=== PATIENT | male | born 1945 | race Caucasian/White ===

== ENCOUNTER 2020-07-24 10:50 | Inpatient (IN) | payer MEDICARE, SELFPAY ==
--- NOTE | ~2020-07-24 | US_ITS ---
EXAMINATION: US DOPPLER LOWER EXTREMITY ARTERIAL, RIGHT CLINICAL INFORMATION: Diabetic ulcer COMPARISON: None TECHNIQUE: Grayscale, color Doppler, spectral Doppler, duplex Doppler of the right lower extremity arterial system was performed. FINDINGS: RIGHT: There is plaque throughout the visible lower extremity arterial system with more substantial moderate plaque at the femoral bifurcation and in the mid and distal superficial femoral artery. The posterior tibial artery appears occluded in the mid and distal segments. Common femoral: PSV 255 centimeters per second. Triphasic waveform. Deep femoral: PSV 101 centimeters per second. Biphasic waveform. Proximal superficial femoral: PSV 133 centimeters per second. Monophasic waveform. Mid superficial femoral: PSV 133 centimeters per second. Monophasic waveform. Distal superficial femoral: PSV 161 centimeters per second. Monophasic waveform. Proximal popliteal: PSV 118 centimeters per second. Monophasic waveform. Distal popliteal: PSV 42 centimeters per second. Monophasic waveform. US/US arterial duplex LE RT IMPRESSION: Diffuse atherosclerotic disease with more focal moderate plaque at the common femoral bifurcation, mid SFA, and distal SFA. The posterior tibial artery occludes in the mid segment. Monophasic waveforms in the SFA and popliteal artery consistent with hemodynamically significant peripheral arterial disease.
--- NOTE | ~2020-07-24 | CT_ITS ---
EXAMINATION: CT ANGIOGRAM OF THE CHEST WITH AND WITHOUT CONTRAST (CT PULMONARY ANGIOGRAM FOR PE) CLINICAL INFORMATION: Shortness of breath. COMPARISON: Chest X-ray 07/24/2020. Correlation MRI lumbar spine 08/03/2011. TECHNIQUE: Prior to contrast administration, noncontrast localization images were obtained. Subsequently, multidetector volumetric imaging was performed from the thoracic inlet to below the diaphragms following the administration of 65 mL Omnipaque 350 intravenous contrast. No contrast reaction reported. Sagittal, coronal, and MIP oblique sagittal reformatted images were obtained on the CT workstation, uploaded to PACS, and reviewed. This CT examination was performed using dose optimization techniques as appropriate, variously including the following: *Automated exposure control *Adjustment of mA and/or kV according to patient size (this includes techniques or standardized protocols for targeted exams where dose is matched to indication/reason for exam; i.e. extremities or head) *Use of iterative reconstruction technique Total exam dose-length product 286 mGy-cm FINDINGS: QUALITY OF STUDY/CONTRAST BOLUS: Satisfactory. PULMONARY ARTERIES: No evidence of filling defects to suggest central or segmental pulmonary emboli. THORACIC AORTA: Normal caliber aorta. LUNG: [id number] centrilobular and paraseptal emphysema. Mild dependent changes in the posterior bilateral lungs. No focal consolidation. No suspicious nodules or masses seen. PLEURA: No pleural effusion or pneumothorax. MEDIASTINUM: Normal heart size. No pericardial effusion. No hilar or mediastinal lymphadenopathy. No evidence of septal bowing or right heart strain. CHEST WALL/AXILLA: No axillary or internal mammary lymphadenopathy. OSSEOUS STRUCTURES: No acute or suspicious osseous abnormality. Multilevel thoracic spine degeneration. UPPER ABDOMEN: There is an incompletely imaged large fluid attenuation focus in the expected region of the right kidney, with lobulated margins. The visualized portion measures 10.7 x 9 cm. There appear to be some thin septations within this, with areas of increased density which may reflect enhancement or calcification. On the prior lumbar MRI 08/03/2011, a septated cystic focus is partially imaged in this region, as well. Mild bulky appearance of the left adrenal gland. No reflux of contrast into the hepatic veins to suggest elevated right heart pressures. CT/CT angio chest PE protocol IMPRESSION: 1. No evidence of filling defects to suggest central or segmental pulmonary emboli. 2. [id number] emphysema. No focal consolidation. 3. There is an indeterminate large fluid attenuation focus in the right upper abdomen in the expected region of the kidney. This is of indeterminate etiology. This is incompletely imaged and evaluated. The imaged portion measures 10.7 x 9 cm in short axis, and has thin septations within it, which may be enhancing or have calcification within them. This focus is indeterminate. The partially imaged septated cystic focus was seen in the MRI lumbar spine 08/03/2011. Please correlate with clinical history, previous imaging, clinical correlation. Further workup with CT or ultrasound as clinically warranted. VTE: negative
--- NOTE | ~2020-07-24 | US_ITS ---
EXAMINATION: US RETROPERITONEAL LIMITED (RENAL ONLY) CLINICAL INFORMATION: Fluid attenuation in area of right kidney on CT. COMPARISON: Selected portions from the upper abdomen on CT 07/24/20 Selected portions of ultrasound 08/23/11 TECHNIQUE: Bilateral renal ultrasound. FINDINGS: RIGHT KIDNEY: 14.9 x 7.1 x 8.0 cm (SAG x AP x TRV). The renal contour is abnormal. The upper pole is replaced by multiple varying sized thin-walled cysts. Some are exophytic. Some replace the expected region of cortex and central sinus fat. Individual cystic lesions are difficult to quantify. Some cystic components measure greater than 5 cm. There is no dilation of the intrarenal collecting system suggested. No suspicious mass involving the lower pole. There is no shadowing calculus. The finding on the CT corresponds to on CT there are linear internal calcifications. There were multi cystic abnormalities deforming the upper pole of the right kidney on ultrasound 08/23/11. These may have slightly increased. LEFT KIDNEY: 12.4 x 5.6 x 5.6 cm (SAG x AP x TRV). The left renal contour is relatively smooth. Renal cortical thickness is normal. No shadowing calculi. There are small round cysts. The largest in the mid left kidney measures 1.1 cm in diameter. There is no dilation of the intrarenal collecting system US/US renal BI IMPRESSION: The complex cystic abnormality in the right upper quadrant on recent CT corresponds to a multi cystic abnormality in the right kidney. There are linear calcifications on CT. There was a complex cystic abnormality on ultrasound in 2012. Overall I suspect there has been some interval increase in size. The lack of large solid component developing since 2012 is reassuring. Consider urologic consultation for surveillance of complex cystic mass with slow enlargement. No measurable solid lesion.
--- NOTE | ~2020-07-24 | US_ITS ---
EXAMINATION: US VENOUS ULTRASOUND WITH DOPPLER LOWER EXTREMITY, RIGHT CLINICAL INFORMATION: Diabetic foot ulcer. Shortness of breath. Assess for occult DVT. COMPARISON: Arterial duplex ultrasound right lower extremity 07/24/2020. TECHNIQUE: Ultrasound of the deep veins is performed from the hip to the calf with compression sonography and color and pulse Doppler assessment. Spectral analysis with color-flow imaging is performed. FINDINGS: There is normal venous compression and respiratory variation and augmented flow. The visualized common femoral vein, superficial femoral vein, profunda femoral vein, popliteal vein, and the trifurcation region shows no evidence of deep venous thrombosis. There is no popliteal fossa cyst. There are some expected reactive nodes right inguinal region, largest 1.1 cm short axis by 2.8 cm long axis. There is mild cortical thickening with abundant fatty hilus and normal color flow pattern. US/US venous duplex LE RT IMPRESSION: No DVT demonstrated in the right lower extremity.
--- NOTE | ~2020-07-24 | XR_ITS ---
EXAMINATION: XR CHEST CLINICAL INFORMATION: Cough, shortness of breath COMPARISON: Chest radiographs 04/23/2013 TECHNIQUE: The chest is imaged in 2 upright AP views and a lateral projection for a total of 3 views. FINDINGS: There is no airspace consolidation or definite groundglass opacity. No pleural reaction or effusion. The costophrenic sulci are clear. The heart is normal in size. The vascularity is normal. The hilar and mediastinal contours are unremarkable. There are multilevel level degenerative changes thoracic spine. XR/XR chest 2V IMPRESSION: Unremarkable examination.
--- NOTE | ~2020-07-24 | XR_ITS ---
EXAMINATION: XR FOOT, RIGHT CLINICAL INFORMATION: Diabetic wound COMPARISON: None TECHNIQUE: Right foot is imaged in 3 views. FINDINGS: There is scattered gas in the soft tissues involving the base and mid great toe and between the great and second toe. Gas seen on both plantar and dorsal sides on the lateral view. There is decreased mineralization in the first proximal phalanx. There is no obvious periostitis. Some mottled attenuation is suggested in the sesamoids. The remainder of the bony structures are unremarkable. XR/XR foot RT 2V IMPRESSION: Moderate gas in the soft tissues and forefoot dorsal and plantar side first and second toe. Variable mineralization first proximal phalanx and sesamoids. Possibility of early osteomyelitis cannot be excluded.
--- NOTE | ~2020-07-24 | MR_ITS ---
EXAMINATION: MR FOOT WITH AND WITHOUT CONTRAST, RIGHT CLINICAL INFORMATION: Evaluate for osteomyelitis. COMPARISON: Radiographs dated 07/24/2020 TECHNIQUE: Multiplanar MR imaging was obtained through the right foot on a 1.5 Reyna magnet before and after intravenous administration of 8 mL Gadavist. FINDINGS: There is a large soft tissue ulceration at the medial/plantar aspect of the 1st MTP joint measuring 3.6 x 3.2 cm with a depth of at least 6 mm. The surrounding soft tissues are edematous and swollen. Enhancement in this region is diminished in the plantar soft tissues distal to the lesion, likely due to compromised peripheral perfusion. The defect extends to the depth of the underlying hallux sesamoids and flexor digitorum longus tendon. The flexor digitorum longus tendon is likely exposed at the level of the sesamoids and its integrity in this region is not well assessed. There is edema signal within the medial hallux sesamoid with loss of signal intensity on T1-weighted images and diffuse enhancement, consistent with osteomyelitis. There is more mild edema signal and enhancement within the lateral hallux sesamoid without complete replacement of the normal T1 signal. There is a peripherally enhancing fluid collection arising at the interspace between the 1st and 2nd digits and extending dorsally into the dorsal soft tissues, propagating laterally over the head of the 2nd metatarsal. This collection measures 4.6 cm longitudinally with a cross-sectional diameter of approximately 2 x 1.5 cm. Numerous foci of low signal intensity with susceptibility artifact are noted within this collection, most consistent with gas. This may be contiguous with the ulceration at the plantar aspect of the foot and is consistent with an abscess. Susceptibility artifact is also noted within the great toe proximal phalanx, indicative of gas. This is suggestive of infection and osteonecrosis. Of note, the T1 signal is relatively well-preserved at the 1st toe proximal phalanx with the exception of the base, potentially due to necrosis. There is mild osteoarthritis at the 1st MTP joint with marginal osteophytes, articular cartilage loss, and articular surface remodeling. There is synovial enhancement at the 1st MTP joint without appreciable effusion. No effusions are present at the other joints, though the aforementioned abscess does extend over the dorsal aspect of the 2nd MTP joint. Reactive edema signal is present in the 2nd toe proximal phalangeal base. There is diffuse soft tissue swelling with skin thickening, soft tissue edema, and soft tissue enhancement. There is diffuse atrophy and fatty replacement of the intrinsic foot musculature with intramuscular edema signal and enhancement, likely due, in large part, to denervation atrophy. No appreciable tendon tears. MR/MR foot RT wo/w con IMPRESSION: Large ulceration at the plantar aspect of the 1st MTP joint with underlying osteomyelitis of the lateral hallux sesamoid, osteomyelitis and probable osteonecrosis at the great toe proximal phalanx, and a 4.6 cm gas-containing abscess at the 1st interspace extending into the dorsal soft tissues. Septic arthritis at the 1st MTP joint is possible, though not definitively present based on these images.
[2020-07-24 11:01] VITALS: BP 139/60; BP 141/88; PULSE 104; PULSE 105; RESP 16; TEMP 37.2; O2SAT 100; O2SAT 96; BMI 27.3
--- NOTE | 2020-07-24 11:05 | ECG_ITS ---
Test Reason : SOB, COUGH Blood Pressure : / mmHG Vent. Rate : 088 BPM Atrial Rate : 088 BPM P-R Int : 136 ms QRS Dur : 084 ms QT Int : 382 ms P-R-T Axes : 050 045 048 degrees QTc Int : 462 ms Normal sinus rhythm Normal ECG When compared with ECG of 29-SEP-2011 15:26, No significant change was found Referred By: Chelsea Meza Electronically Signed By:ASA BATEMAN
--- NOTE | 2020-07-24 11:13 | ED.GENADULT ---
HPI - General Adult General Chief complaint: Altered Mental Status Stated complaint: AMS,FEVER (100.2),HX FOOT INFECTION PER Time Seen by Provider: 07/24/20 10:55 Source: patient, EMS, RN notes reviewed and old records reviewed Mode of arrival: EMS Limitations: altered mental status (Early-onset dementia per EMS) History of Present Illness HPI narrative: 75-year-old male here today via EMS services. Patient has a history of diabetes, diabetic foot ulcers. 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 Patient is a very poor historian. Per EMS services patient was found by slumped over when he came up from basement. He was alert, however he presented very weak. Patient has a poor healing diabetic ulcer to his R foot, his has been trying to bring patient in for care however he refused. Patient reports that he feels chills, no fever. Patient has been coughing unknown of how long. Denies CP, PND. Reports SOB with exertion. Related Data Home Medications Medication Instructions Recorded Confirmed aspirin 81 mg tablet,delayed 81 mg PO DAILY 04/14/20 07/24/20 release atorvastatin 10 mg tablet 10 mg PO BEDTIME 04/14/20 07/24/20 cholecalciferol (vitamin D3) 25 25 mcg PO DAILY 04/14/20 07/24/20 mcg (1,000 unit) capsule metformin 500 mg tablet 500 mg PO BID 04/14/20 07/24/20 timolol 0.25 % eye drops 1 drp OPHTHALMIC-LEFT DAILY 04/14/20 07/24/20 hydrochlorothiazide 12.5 mg PO DAILY 07/24/20 07/24/20 Previous Rx's Medication Instructions Recorded lisinopril 40 mg tablet 40 mg PO DAILY #90 tab 02/15/20 amlodipine 10 mg tablet 10 mg PO DAILY #90 tab 03/26/20 Allergies Allergy/AdvReac Type Severity Reaction Status Date / Time No Known Allergies Allergy Mild Verified 04/14/20 13:17 Review of Systems Review of Systems: Constitutional : No Weight loss, No Fever, Chills, No Night Sweats, No Fatigue, No Malaise ENT/Mouth : No Hearing loss, No Ear Pain, No Nasal Congestion, No Sinus Pain, No Hoarseness, No sore throat, No Rhinorrhea, No Swallowing Difficulty Eyes: No Eye Pain, No Swelling, No Redness, No Foreign Body, No Discharge, No Vision Changes Cardiovascular : No Chest Pain, SOB, Dyspnea on Exertion, No Orthopnea, No Edema, No Palpitations Respiratory : Cough, No Sputum, No Wheezing, No Smoke Exposure, Dyspnea Gastrointestinal : No Nausea, No Vomiting, No Diarrhea, No Constipation, No abdominal Pain, No Hematochezia, No Melena Genitourinary : no irregular bleeding, No Dysuria, No Urinary Frequency, No Hematuria, No Urinary Incontinence, No Urgency, No Flank Pain, No Urinary Flow Changes, No Hesitancy Musculoskeletal : No joint pain, No Myalgias, No Joint Swelling Skin : No Skin Lesions, No rash R foot ulser Neuro : No Weakness, No Numbness, No Paresthesias, No Loss of Consciousness, No Dizziness, No Headache Psych : No Anxiety/Panic, No Depression, No SI/HI/AH/VH, No Social Issues, Heme/Lymph: No Bruising, No Bleeding,No Lymphadenopathy Endocrine : No Polyuria, No Polydipsia, No Temperature Intolerance Yes all other systems are reviewed and are negative [facility] Past Medical History Medical History (Updated 07/24/20 @ 17:37 by Aditi Tolentino MD) Anxiety and depression Asthma Avascular necrosis of bone of hip Coronary artery disease Diabetic foot ulcer Diabetic nephropathy Diabetic neuropathy Diverticular disease Hypercholesterolemia Hypertension Osteomyelitis of toe Thrombocytopenia Tobacco abuse Tubular adenoma of colon Type 2 diabetes mellitus with hyperglycemia Vitamin D deficiency Surgical History Amputation finger History of cataract surgery History of surgery Family History Family History Father Diabetes Hypertension CVD (cardiovascular disease) Stroke Mother CVD (cardiovascular disease) Hypertension Cancer Sister No problems noted. Social History Social History Alcohol intake: never Smoking Status: Light tobacco smoker Cigarettes Per Day: 6 Use of substances other than those prescribed or required for medical reasons: No Advance Directives: Yes Advance Directives Information Provided: Yes Advance Directives on File: No Physical Exam Vital Signs: Vital Signs: Last Vital Signs Temp 98.9 F 07/24/20 11:01 Pulse 104 H 07/24/20 11:01 Resp 16 07/24/20 11:01 BP 139/60 07/24/20 11:01 Pulse Ox 100 07/24/20 11:01 Body Mass Index 27.3 Const: General: cooperative Nutritional Appearance: average body habitus Orientation/consciousness: oriented to person and Other orientation findings (Early-onset dementia per ES) Limitations: no limitations HENMT: Head: Yes normal to inspection Ears: hearing grossly normal bilaterally General nose exam: Normal external nose present Face and sinus: Yes normal facial exam Mouth: Normal oral and palatal mucosa present Throat: Yes posterior oropharynx normal Eyes: General: appearance normal, both eyes and all related structures Eyelids: Yes eyelids normal Conjunctivae: conjunctivae normal Sclerae: sclerae normal Pupils: Equal, round and reactive pupils present Neck: Neck: Yes normal visual inspection, Yes full ROM, Yes no lymphadenopathy, Yes trachea midline and Yes supple Thyroid: Thyroid normal Lymphatic: no lymphadenopathy noted Chest: Chest palpation & inspection: normal inspection of the chest Resp: Effort & Inspection: normal respiratory effort and able to speak in complete sentences Auscultation: crackles bilateral and diffuse and diminished lung sounds (At bases) Cardio: Jugular venous distension: no JVD Rate: regular rate Rhythm: regular rhythm Heart sounds: S1 normal heart sound present, S2 normal heart sound present, no gallops, no murmurs and no rubs Peripheral pulses: Peripheral pulses 2+ throughout GI: Inspection: Yes normal to inspection and No distended Palpation (GI): No hepatosplenomegaly present and No Rebound tenderness present Percussion: Yes normal to percussion Auscultation: normal bowel sounds Back/Spine/Pelvis: Cervical Spine: cervical ROM normal and No cervical muscular tenderness Thoracic/Lumbar Spine: thoracic and lumbar spine normal to inspection Skin: General skin exam: no rashes or lesions noted and other (Diabetic ulcer to right foot) Neuro: General: oriented to person Cranial nerves: Yes Equal, round and reactive pupils present Extrem: General: Yes full ROM, Yes amputation noted (Right hand 4th finger) and Yes other (The right foot diabetic ulcer. Redness,edema to mid calf) Psych: Other: Appearance: grossly normal Mental Status: mental status grossly normal Speech and movement: Normal speech and movement present Affect: normal affect Attitude: cooperative Thought process: Normal thought process present Insight: Good insight present (Psych) Course Course Course Narrative: 75-year-old male here today via ambulance for weakness, found to have right foot diabetic ulcer. History diabetic ulcers in the past and amputations. Right 4th finger amputee unknown date. Patient has a history of admission for osteomyelitis in the past. Will order an x-ray to rule out osteomyelitis. Right leg swelling, redness and warmth. Patient also complains of some shortness of breath has been coughing for some time. Afebrile, however his body feels very warm. I will order Tylenol for fever. Labs, lactic acid, blood cultures. Will sent swab for COVID. Reevaluation(s) Reevaluation #1: Chest x-ray reviewed no active disease. Right foot x-ray gas in the soft tissues and forefoot dorsal and plantar side. ? Early osteomyelitis. Mild leukocytosis. Liver enzymes elevated ALT 74 and AST 104. Time: 11:57 Reevaluation #2: Patient went to atrial fibrillation with RVR on monitor. Heart rate up to 138. Rhythm broke on its own back to sinus rhythm. I will order CTA of the chest rule out PE as well as venous Doppler study to r/o DVT. Time: 12:56 Reevaluation #3: Spoke with hospitalist informed of possible admission. Awaiting for CTA and venous study to admit patient. Patient denies CP, abdominal pain. Time: 16:20 Additional Reevaluation(s): CTA of chest back. Negative for pleural effusion or pneumothorax. There is an indeterminate large fluid attenuation focus in the right upper abdomen in the expected region of the kidney. This is incompletely imaged and evaluated, the imaged portion measures 10.7 X 9 cm in short axis, and has been separation within, which may be enhancing or have calcifications within them. The partially imaged cystic focus was seen in the MRI lumbar spine 08/03/2011. Patient is admitted, would recommend further workup with kidney ultrasound. Patient seen by Dr. Tolentino surgery area debrided and dressed by her. Patient will go for MRI of his right foot. Case discussed with Dr. Coffman. Awaiting bed assignment. Medical Decision Making Lab Data Result diagrams: 07/24/20 11:18 07/24/20 11:18 Labs: Lab Results 07/24/20 07/24/20 07/24/20 Range/Units 11:18 11:18 11:18 WBC 14.4 H (4.8-10.8) X10*3/uL RBC 3.33 L (4.60-5.80) X10*6/uL Hgb 10.7 L (14.0-18.0) g/dl Hct 30.7 L (42-52) % MCV 92.2 (80-98) fL MCH 32.1 (27.0-33.0) pg MCHC 34.9 (31.0-36.0) g/dl RDW 13.1 (11.0-16.0) % Plt Count 237 (160-400) X10*3/uL MPV 9.5 (9.4-12.4) fL Immature Gran % (Auto) 0.7 H (0.0-0.4) % Neut % (Auto) 85.6 H (45-73) % Lymph % (Auto) 4.0 L (20-40) % [place] % (Auto) 9.3 (2-11) % Eos % (Auto) 0.1 (0-4) % Baso % (Auto) 0.3 (0-2) % Lymph # (Auto) 0.6 L (1.2-4.9) X10*3/uL [place] # (Auto) 1.3 H (0.1-1.2) X10*3/uL Eos # (Auto) 0.0 (0.0-0.4) X10*3/uL Baso # (Auto) 0.1 (0.0-0.2) X10*3/uL Abs Immat Gran (auto) 0.10 H (0.00-0.03) X10*3/uL Absolute Neuts (auto) 12.3 H (2.0-8.3) X10*3/uL Absolute Nucleated RBC 0.000 (0.0-0.012) X10*3/uL Nucleated RBC % (auto) 0.0 (0.0-0.2) /100WBC Smear Tech's Comments VERIFIED ESR (0-15) MM/HR PT (10.8-13.0) SEC INR (0.9-1.1) Hold Blue Top Sodium 129 L (135-145) mmol/L Potassium 4.3 (3.3-5.1) mmol/L Chloride 94 L (96-108) mmol/L Carbon Dioxide 24 (22-29) mmol/L Anion Gap 15 (12-20) BUN 17 H (9-16) mg/dL Creatinine 0.88 (0.5-1.4) mg/dL Estim Creat Clear Calc 71.0 Estimated GFR > 60 Random Glucose 105 (60-115) mg/dL Lactic Acid 2.0 (0.5-2.0) mmol/L Calcium 7.8 L (8.4-10.2) mg/dL Ferritin 593 H (20-250) ng/mL Total Bilirubin 0.9 (0.0-1.0) mg/dL AST 104 H (5-37) U/L ALT 74 H (0-40) U/L Alkaline Phosphatase 83 (39-117) U/L Lactate Dehydrogenase 224 (118-273) U/L Troponin I High Sens (<3.5-35.0) ng/L C-Reactive Protein 23.40 H (< or = 0.50) mg/dL Total Protein 5.8 L (6.5-8.0) g/dL Albumin 2.8 L (3.5-5.0) g/dL Procalcitonin ng/mL Coronavirus (PCR) (Negative) Influenza Type A (PCR) (Negative) Influenza Type B (PCR) (Negative) RSV RNA Qual (PCR) (Negative) 07/24/20 07/24/20 07/24/20 Range/Units 11:18 11:18 11:18 WBC (4.8-10.8) X10*3/uL RBC (4.60-5.80) X10*6/uL Hgb (14.0-18.0) g/dl Hct (42-52) % MCV (80-98) fL MCH (27.0-33.0) pg MCHC (31.0-36.0) g/dl RDW (11.0-16.0) % Plt Count (160-400) X10*3/uL MPV (9.4-12.4) fL Immature Gran % (Auto) (0.0-0.4) % Neut % (Auto) (45-73) % Lymph % (Auto) (20-40) % [place] % (Auto) (2-11) % Eos % (Auto) (0-4) % Baso % (Auto) (0-2) % Lymph # (Auto) (1.2-4.9) X10*3/uL [place] # (Auto) (0.1-1.2) X10*3/uL Eos # (Auto) (0.0-0.4) X10*3/uL Baso # (Auto) (0.0-0.2) X10*3/uL Abs Immat Gran (auto) (0.00-0.03) X10*3/uL Absolute Neuts (auto) (2.0-8.3) X10*3/uL Absolute Nucleated RBC (0.0-0.012) X10*3/uL Nucleated RBC % (auto) (0.0-0.2) /100WBC Smear Tech's Comments ESR (0-15) MM/HR PT 17.1 H (10.8-13.0) SEC INR 1.4 H (0.9-1.1) Hold Blue Top SEE NOTE Sodium (135-145) mmol/L Potassium (3.3-5.1) mmol/L Chloride (96-108) mmol/L Carbon Dioxide (22-29) mmol/L Anion Gap (12-20) BUN (9-16) mg/dL Creatinine (0.5-1.4) mg/dL Estim Creat Clear Calc Estimated GFR Random Glucose (60-115) mg/dL Lactic Acid (0.5-2.0) mmol/L Calcium (8.4-10.2) mg/dL Ferritin (20-250) ng/mL Total Bilirubin (0.0-1.0) mg/dL AST (5-37) U/L ALT (0-40) U/L Alkaline Phosphatase (39-117) U/L Lactate Dehydrogenase (118-273) U/L Troponin I High Sens 15.6 (<3.5-35.0) ng/L C-Reactive Protein (< or = 0.50) mg/dL Total Protein (6.5-8.0) g/dL Albumin (3.5-5.0) g/dL Procalcitonin 0.38 ng/mL Coronavirus (PCR) (Negative) Influenza Type A (PCR) (Negative) Influenza Type B (PCR) (Negative) RSV RNA Qual (PCR) (Negative) 07/24/20 07/24/20 Range/Units 11:18 11:44 WBC (4.8-10.8) X10*3/uL RBC (4.60-5.80) X10*6/uL Hgb (14.0-18.0) g/dl Hct (42-52) % MCV (80-98) fL MCH (27.0-33.0) pg MCHC (31.0-36.0) g/dl RDW (11.0-16.0) % Plt Count (160-400) X10*3/uL MPV (9.4-12.4) fL Immature Gran % (Auto) (0.0-0.4) % Neut % (Auto) (45-73) % Lymph % (Auto) (20-40) % [place] % (Auto) (2-11) % Eos % (Auto) (0-4) % Baso % (Auto) (0-2) % Lymph # (Auto) (1.2-4.9) X10*3/uL [place] # (Auto) (0.1-1.2) X10*3/uL Eos # (Auto) (0.0-0.4) X10*3/uL Baso # (Auto) (0.0-0.2) X10*3/uL Abs Immat Gran (auto) (0.00-0.03) X10*3/uL Absolute Neuts (auto) (2.0-8.3) X10*3/uL Absolute Nucleated RBC (0.0-0.012) X10*3/uL Nucleated RBC % (auto) (0.0-0.2) /100WBC Smear Tech's Comments ESR 93 H (0-15) MM/HR PT (10.8-13.0) SEC INR (0.9-1.1) Hold Blue Top Sodium (135-145) mmol/L Potassium (3.3-5.1) mmol/L Chloride (96-108) mmol/L Carbon Dioxide (22-29) mmol/L Anion Gap (12-20) BUN (9-16) mg/dL Creatinine (0.5-1.4) mg/dL Estim Creat Clear Calc Estimated GFR Random Glucose (60-115) mg/dL Lactic Acid (0.5-2.0) mmol/L Calcium (8.4-10.2) mg/dL Ferritin (20-250) ng/mL Total Bilirubin (0.0-1.0) mg/dL AST (5-37) U/L ALT (0-40) U/L Alkaline Phosphatase (39-117) U/L Lactate Dehydrogenase (118-273) U/L Troponin I High Sens (<3.5-35.0) ng/L C-Reactive Protein (< or = 0.50) mg/dL Total Protein (6.5-8.0) g/dL Albumin (3.5-5.0) g/dL Procalcitonin ng/mL Coronavirus (PCR) NEGATIVE (Negative) Influenza Type A (PCR) NEGATIVE (Negative) Influenza Type B (PCR) NEGATIVE (Negative) RSV RNA Qual (PCR) NEGATIVE (Negative) Imaging Data Chest x-ray: Attestation: I personally reviewed and interpreted this imaging study as follows: Radiologist's impression: FINDINGS: There is no airspace consolidation or definite groundglass opacity. No pleural reaction or effusion. The costophrenic sulci are clear. The heart is normal in size. The vascularity is normal. The hilar and mediastinal contours are unremarkable. There are multilevel level degenerative changes thoracic spine. R foot X-ray: Attestation: I personally reviewed and interpreted this imaging study as follows: Radiologist's impression: IMPRESSION: Moderate gas in the soft tissues and forefoot dorsal and plantar side first and second toe. Variable mineralization first proximal phalanx and sesamoids. Possibility of early osteomyelitis cannot be excluded. ekg #1: Attestation: I personally reviewed and interpreted this imaging study as follows: My impression: Normal sinus rhythm Arterial ultrasound: Attestation: I personally reviewed and interpreted this imaging study as follows: Radiologist's impression: FINDINGS: RIGHT: There is plaque throughout the visible lower extremity arterial system with more substantial moderate plaque at the femoral bifurcation and in the mid and distal superficial femoral artery. The posterior tibial artery appears occluded in the mid and distal segments. Common femoral: PSV 255 centimeters per second. Triphasic waveform. Deep femoral: PSV 101 centimeters per second. Biphasic waveform. Proximal superficial femoral: PSV 133 centimeters per second. Monophasic waveform. Mid superficial femoral: PSV 133 centimeters per second. Monophasic waveform. Distal superficial femoral: PSV 161 centimeters per second. Monophasic waveform. Proximal popliteal: PSV 118 centimeters per second. Monophasic waveform. Distal popliteal: PSV 42 centimeters per second. Monophasic waveform. US/US arterial duplex LE RT IMPRESSION: Diffuse atherosclerotic disease with more focal moderate plaque at the common femoral bifurcation, mid SFA, and distal SFA. The posterior tibial artery occludes in the mid segment. Monophasic waveforms in the SFA and popliteal artery consistent with hemodynamically significant peripheral arterial disease. Venous ultrasound right leg: Attestation: I personally reviewed and interpreted this imaging study as follows: My impression: INDINGS: There is normal venous compression and respiratory variation and augmented flow. The visualized common femoral vein, superficial femoral vein, profunda femoral vein, popliteal vein, and the trifurcation region shows no evidence of deep venous thrombosis. There is no popliteal fossa cyst. There are some expected reactive nodes right inguinal region, largest 1.1 cm short axis by 2.8 cm long axis. There is mild cortical thickening with abundant fatty hilus and normal color flow pattern. Discharge Plan Discharge Clinical Impression: Osteomyelitis of ankle or foot, right, acute Patient Disposition: Admitted As Inpatient
[2020-07-24] MEDS: Acetaminophen 325 MG TABLET 650 MG PO (11:24)
[2020-07-24] MEDS: 0.9 % Sodium Chloride 500 ML IV (11:25)
[2020-07-24 11:27] LABS: Basophils Absolute Auto 0.1 X10*3/uL (0.0-0.2); Basophils Percent Auto 0.3 % (0-2); Eosinophils Percent Auto 0.1 % (0-4); Hematocrit 30.7 % (42-52); Hemoglobin 10.7 g/dl (14.0-18.0); Imm Gran Pct Auto 0.7 % (0.0-0.4); Lymphocytes Absolute Auto 0.6 X10*3/uL (1.2-4.9); MANUAL DIFF FLAG SCAN; Mean Corpuscular HGB Conc 34.9 g/dl (31.0-36.0); Mean Corpuscular Hemoglobin 32.1 pg (27.0-33.0); Mean Corpuscular Volume 92.2 fL (80-98); Mean Platelet Volume 9.5 fL (9.4-12.4); Monocytes Absolute Auto 1.3 X10*3/uL (0.1-1.2); Monocytes Percent Auto 9.3 % (2-11); Neutrophils Absolute Auto 12.3 X10*3/uL (2.0-8.3); Neutrophils Percent Auto 85.6 % (45-73); Platelet Count 237 X10*3/uL (160-400); Red Blood Count 3.33 X10*6/uL (4.60-5.80); Red Cell Distribution Width 13.1 % (11.0-16.0); SCAN SMEAR FLAG 1; White Blood Count 14.4 X10*3/uL (4.8-10.8)
[2020-07-24 11:52] LABS: Alanine Aminotransferase 74 U/L (0-40); Albumin Level 2.8 g/dL (3.5-5.0); Alkaline Phosphatase 83 U/L (39-117); Anion Gap 15 (12-20); Aspartate Amino Transferase 104 U/L (5-37); Bilirubin Total 0.9 mg/dL (0.0-1.0); Blood Urea Nitrogen 17 mg/dL (9-16); Calcium 7.8 mg/dL (8.4-10.2); Carbon Dioxide 24 mmol/L (22-29); Chloride 94 mmol/L (96-108); Estimated Glomerular Filt Rate > 60; Glucose Random 105 mg/dL (60-115); Potassium 4.3 mmol/L (3.3-5.1); Sodium 129 mmol/L (135-145); Total Protein 5.8 g/dL (6.5-8.0); Troponin-I High Sensitivity 15.6 ng/L (<3.5-35.0)
[2020-07-24 12:10] LABS: SLIDE REVIEW VERIFIED
[2020-07-24 12:32] LABS: Influenza A PCR NEGATIVE (Negative); Influenza B PCR NEGATIVE (Negative); Resp Syncy Virus RNA Qual PCR NEGATIVE (Negative); SARS COV2 PCR INHOUSE NEGATIVE (Negative)
[2020-07-24] MEDS: 0.9 % Sodium Chloride 1,000 ML 999 ML IV (12:36)
[2020-07-24] MEDS: Piperacillin Sodium/Tazobactam 3.375 GM in 0.9 % Sodium Chloride 50 ML IV ×2 (12:36→21:46)
[2020-07-24 13:02] LABS: Lactate Dehydrogenase 224 U/L (118-273)
[2020-07-24 13:07] LABS: INTERNATIONAL NORM RATIO 1.4 (0.9-1.1); Prothrombin Time 17.1 SEC (10.8-13.0)
[2020-07-24 13:23] LABS: Ferritin 593 ng/mL (20-250)
[2020-07-24 13:26] LABS: Procalcitonin 0.38 ng/mL
[2020-07-24] MEDS: vancomycin HCL 1,250 MG in 0.9 % Sodium Chloride 250 ML 166.67 MG IV (13:42)
[2020-07-24] MEDS: iohexoL 350 MG/ML 100 ML INFUS..BTL IV (14:33)
[2020-07-24 15:12] LABS: Erythrocyte Sedimentation Rate 93 MM/HR (0-15)
--- NOTE | 2020-07-24 15:37 | P.HPHOSP_ITS ---
History of Present Illness Date of Service: 07/24/20 Chief Complaint: Foot pain This is a 75-year-old male with a past medical history of diabetes who is not the greatest of historians. He presents to the emergency room after being brought by ambulance. The patient himself reports that he came here ?because his kicked him out?. History is obtained from the ED chart, staff and mainly from the patient's . She reports that over the last several days the patient has appeared more tired and sleeping throughout the day. She reports that today he complained of foot pain and so she called paramedics to bring him to the emergency room. She reports that she checked his temperature day prior to admission at which point it was normal. She reports that he follows up with a protocol officer and last saw him several weeks back at which time everything was ?okay. ? Upon arrival to the emergency room, patient was noted to have erythema of the right lower extremity with sloughing of the skin and some ulcerations on the plantar aspect. His blood work showed leukocytosis of 14,000. He was noted to be tachycardic in the 100s and subsequently went into rapid AFib with RVR into the 130s and 140s, converting back to normal sinus rhythm on his own. This happened twice and he did require 1 dose of IV Cardizem. He was evaluated with arterial Doppler studies which are pending at the time of admission. He was also tested with a CTA of the chest to rule out pulmonary embolism which was negative. He was noted to be hyponatremic with a sodium sodium of 129. He was given a dose of vancomycin, Zosyn, IV fluids and admission was requested for a diabetic foot infection. Review of Systems Review of Systems: Review of systems attempted, but unable to be completed due to to patient mentation [facility] Medical History (Updated 07/24/20 @ 15:52 by Abdirizak Walter MD) Anxiety and depression Asthma Avascular necrosis of bone of hip Coronary artery disease Diabetic foot ulcer Diabetic nephropathy Diabetic neuropathy Diverticular disease Hypercholesterolemia Hypertension Osteomyelitis of toe Thrombocytopenia Tobacco abuse Tubular adenoma of colon Type 2 diabetes mellitus with hyperglycemia Vitamin D deficiency Family History Father Diabetes Hypertension CVD (cardiovascular disease) Stroke Mother CVD (cardiovascular disease) Hypertension Cancer Sister No problems noted. Surgical History Amputation finger History of cataract surgery History of surgery Social History Alcohol intake: never Smoking Status: Light tobacco smoker Cigarettes Per Day: 6 Use of substances other than those prescribed or required for medical reasons: No Advance Directives: Yes Advance Directives Information Provided: Yes Advance Directives on File: No Meds Allergies Allergy/AdvReac Type Severity Reaction Status Date / Time No Known Allergies Allergy Mild Verified 04/14/20 13:17 Active Medications: Current Medications Generic Name Dose Route Start Last Admin Trade Name Freq PRN Reason Stop Dose Admin Pharmacy Consult 1 each 07/24/20 13:00 Consult Rx Vancomycin Dosing MISCELLANE DAILY PRN Consult order Home Medications Medication Instructions Recorded Confirmed Last Taken Type aspirin 81 mg tablet,delayed 81 mg PO DAILY 04/14/20 04/14/20 Unknown History release atorvastatin 10 mg tablet 10 mg PO DAILY 04/14/20 04/14/20 Unknown History cholecalciferol (vitamin D3) 25 25 mcg PO DAILY 04/14/20 04/14/20 Unknown H istory mcg (1,000 unit) capsule metformin 500 mg tablet 500 mg PO BID 04/14/20 04/14/20 Unknown History timolol 0.25 % eye drops 1 drp OPHTHALMIC (EYE) DAILY 04/14/20 04/14/20 Unknown History hydrochlorothiazide 12.5 mg PO DAILY 07/24/20 07/24/20 07/23/20 History Physical Exam Vital Signs and Narrative: Vital Signs: Last Vital Signs Temp 98.9 F 07/24/20 11:01 Pulse 104 H 07/24/20 11:01 Resp 16 07/24/20 11:01 BP 139/60 07/24/20 11:01 Pulse Ox 100 07/24/20 11:01 Body Mass Index 27.3 Const: Other: Constitutional - Awake and Alert, No apparent distress Eyes - PERRLA, EOMI Cardiovascular - S1S2, RRR, No edema Respiratory - Normal lung expansion, Normal respiratory effort, No respiratory distress, CTA bilaterally Gastrointestinal - NT / ND; +BS; No rebound or guarding - No CVA tenderness Extremities - no calf tenderness bilaterally, no swelling Musculoskeletal - see below Skin - See details below Neurological - non-focal; oriented to self Psychological - Appropriate affect Skin: Other: Results Labs CBC and Chem 7: 07/24/20 11:18 07/24/20 11:18 Labs: Laboratory Results - last 24 hr 07/24/20 07/24/20 07/24/20 11:18 11:18 11:18 MCV 92.2 MCH 32.1 MCHC 34.9 RDW 13.1 Plt Count 237 MPV 9.5 Immature Gran % (Auto) 0.7 H Neut % (Auto) 85.6 H Lymph % (Auto) 4.0 L [place] % (Auto) 9.3 Eos % (Auto) 0.1 Baso % (Auto) 0.3 Lymph # (Auto) 0.6 L [place] # (Auto) 1.3 H Eos # (Auto) 0.0 Baso # (Auto) 0.1 Abs Immat Gran (auto) 0.10 H Absolute Neuts (auto) 12.3 H Absolute Nucleated RBC 0.000 Nucleated RBC % (auto) 0.0 Smear Tech's Comments VERIFIED ESR PT INR Hold Blue Top Anion Gap 15 Estim Creat Clear Calc 71.0 Estimated GFR > 60 Random Glucose 105 Lactic Acid 2.0 Calcium 7.8 L Ferritin 593 H Total Bilirubin 0.9 AST 104 H ALT 74 H Alkaline Phosphatase 83 Lactate Dehydrogenase 224 Troponin I High Sens C-Reactive Protein 23.40 H Total Protein 5.8 L Albumin 2.8 L Procalcitonin Coronavirus (PCR) Influenza Type A (PCR) Influenza Type B (PCR) RSV RNA Qual (PCR) 07/24/20 07/24/20 07/24/20 11:18 11:18 11:18 MCV MCH MCHC RDW Plt Count MPV Immature Gran % (Auto) Neut % (Auto) Lymph % (Auto) [place] % (Auto) Eos % (Auto) Baso % (Auto) Lymph # (Auto) [place] # (Auto) Eos # (Auto) Baso # (Auto) Abs Immat Gran (auto) Absolute Neuts (auto) Absolute Nucleated RBC Nucleated RBC % (auto) Smear Tech's Comments ESR PT 17.1 H INR 1.4 H Hold Blue Top SEE NOTE Anion Gap Estim Creat Clear Calc Estimated GFR Random Glucose Lactic Acid Calcium Ferritin Total Bilirubin AST ALT Alkaline Phosphatase Lactate Dehydrogenase Troponin I High Sens 15.6 C-Reactive Protein Total Protein Albumin Procalcitonin 0.38 Coronavirus (PCR) Influenza Type A (PCR) Influenza Type B (PCR) RSV RNA Qual (PCR) 07/24/20 07/24/20 11:18 11:44 MCV MCH MCHC RDW Plt Count MPV Immature Gran % (Auto) Neut % (Auto) Lymph % (Auto) [place] % (Auto) Eos % (Auto) Baso % (Auto) Lymph # (Auto) [place] # (Auto) Eos # (Auto) Baso # (Auto) Abs Immat Gran (auto) Absolute Neuts (auto) Absolute Nucleated RBC Nucleated RBC % (auto) Smear Tech's Comments ESR 93 H PT INR Hold Blue Top Anion Gap Estim Creat Clear Calc Estimated GFR Random Glucose Lactic Acid Calcium Ferritin Total Bilirubin AST ALT Alkaline Phosphatase Lactate Dehydrogenase Troponin I High Sens C-Reactive Protein Total Protein Albumin Procalcitonin Coronavirus (PCR) NEGATIVE Influenza Type A (PCR) NEGATIVE Influenza Type B (PCR) NEGATIVE RSV RNA Qual (PCR) NEGATIVE Imaging Radiologist's Impressions: Impressions Foot X-Ray 07/24/20 11:02 IMPRESSION: Moderate gas in the soft tissues and forefoot dorsal and plantar side first and second toe. Variable mineralization first proximal phalanx and sesamoids. Possibility of early osteomyelitis cannot be excluded. Chest X-Ray 07/24/20 11:06 IMPRESSION: Unremarkable examination. Assessment and Plan (1) Sepsis: Status: Acute This is a 75-year-old male with a past medical history of diabetes who presents to the hospital with complaints of right lower extremity pain of several days duration. His presentation and workup is consistent with diabetic foot infection, concern over osteomyelitis as well as sepsis. He will be admitted for further treatment. 1. Sepsis present on admission Due to diabetic foot infections, possible osteo No severe features at this time Meets sepsis criteria with tachycardia and leukocytosis 2. Diabetic foot infection To rule out osteomyelitis Continue broad-spectrum IV antibiotics, vancomycin and Zosyn Will get surgical input to see if any debridement is needed at this time Will probably need MRI Vascular studies pending, may need vascular surgery evaluation Follow-up cultures 3. Toxic/metabolic encephalopathy Due to above issues 4. Hyponatremia mild, likely hypovolemic Given 1 L of IV fluids in the emergency room with normal saline Will switch to LR 5. New onset A. Fib with variable rate converted back and forth twice while in the ED in sinus at the time of admission likely related to acute illness / sepsis will observe at this time and if recurrent will need further work up and likely oral anticoagulation cardiology consult and echo if needed inpatient 6. DM hold metformin use sliding scale diabetic diet Fluid collection noted in the abdomen which was on ultrasound from 2011. 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 No abdominal pain at this time. Will check ultrasound to fully evaluate. Continue other home meds once med rec is completed reports she is the HCP. She wishes him to be full code. DVT pptx, Lovenox
--- NOTE | 2020-07-24 17:17 | P.CONGS_ITS ---
History of Present Illness Consult details Consult date: 07/24/20 Reason for consult: other (Diabetic foot infection right foot) Requesting physician: Abdirizak Walter Narrative: This is a 75-year-old gentleman who was transported to the emergency department today for further evaluation because of increasing fatigue and weakness over the past several days. He is unable to give much in the way of history. According to his record, he has a history of a diabetic foot ulcer. He reports that he does not have good sensation in his feet and that he sees a composition siding worker though with time of his last visit is unclear. He denied pain in his right foot. His reports that he has been more confused over the past couple of months. Today she noticed a spot of blood on his sock because of this, along with his increasing weakness, she called for an ambulance to bring him to the emergency department. In the emergency department, he had 2 episodes of rapid atrial fibrillation, which was controlled with Cardizem. Plain x-ray of the right foot revealed a small amount of gas in the distal right foot around the 1st and 2nd toes/metatarsal heads. The presence of osteomyelitis could not be ruled out. Arterial duplex studies have been done an d are consistent with significant peripheral vascular disease in his right leg. MRI of the right foot is pending. Review of Systems Review of Systems: Unreliable due to mental status Constitutional: Constitutional: Denies chills, Reports fatigue and Denies fever(s) Cardiovascular: Cardiovascular: Denies chest pain, Denies rapid heart rate and Denies dyspnea Respiratory: Respiratory: Denies cough and Denies dyspnea Gastrointestinal: Gastrointestinal: Reports no additional gastrointestinal complaints Genitourinary: Genitourinary: Denies no additional male genitourinary complaints Musculoskeletal: Musculoskeletal: Reports as per HPI Neurologic: Reports confusion (Mild) Comments: Worsening forgetfulness and confusion reported by his Psychiatric: Psychiatric: Reports confusion (Mild) Endocrine: Endocrine: Reports fatigue PMFSH Past Medical History Medical History (Updated 07/24/20 @ 17:37 by Aditi Tolentino MD) Anxiety and depression Asthma Avascular necrosis of bone of hip Coronary artery disease Diabetic foot ulcer Diabetic nephropathy Diabetic neuropathy Diverticular disease Hypercholesterolemia Hypertension Osteomyelitis of toe Thrombocytopenia Tobacco abuse Tubular adenoma of colon Type 2 diabetes mellitus with hyperglycemia Vitamin D deficiency Family History Family History Father Diabetes Hypertension CVD (cardiovascular disease) Stroke Mother CVD (cardiovascular disease) Hypertension Cancer Sister No problems noted. Surgical History Surgical History Amputation finger History of cataract surgery History of surgery Social History Social History Alcohol intake: never Smoking Status: Light tobacco smoker Cigarettes Per Day: 6 Use of substances other than those prescribed or required for medical reasons: No Advance Directives: Yes Advance Directives Information Provided: Yes Advance Directives on File: No Meds Allergies Allergy/AdvReac Type Severity Reaction Status Date / Time No Known Allergies Allergy Mild Verified 04/14/20 13:17 Active Medications: Current Medications Generic Name Dose Route Start Last Admin Trade Name Freq PRN Reason Stop Dose Admin Lactated Ringer's 1,000 mls @ 100 mls/hr 07/24/20 16:45 Lr IVCONT 07/25/20 12:44 .Q10H [facility] Non-Formulary Medication 1 drop 07/25/20 09:00 Timolol EYE-LEFT DAILY [facility] Pharmacy Consult 1 each 07/24/20 13:00 Consult Rx Vancomycin Dosing MISCELLANE DAILY PRN Consult order Home Medications Medication Instructions Recorded Confirmed Last Taken Type aspirin 81 mg tablet,delayed 81 mg PO DAILY 04/14/20 07/24/20 07/23/20 History release atorvastatin 10 mg tablet 10 mg PO BEDTIME 04/14/20 07/24/20 07/23/20 History cholecalciferol (vitamin D3) 25 25 mcg PO DAILY 04/14/20 07/24/20 07/23/20 History mcg (1,000 unit) capsule metformin 500 mg tablet 500 mg PO BID 04/14/20 07/24/20 07/23/20 History timolol 0.25 % eye drops 1 drp OPHTHALMIC-LEFT DAILY 04/14/20 07/24/20 07/23/20 History hydrochlorothiazide 12.5 mg PO DAILY 07/24/20 07/24/20 07/23/20 History Physical Exam Vital Signs: Vital Signs: Last Vital Signs Temp 98.9 F 07/24/20 11:01 Pulse 104 H 07/24/20 11:01 Resp 16 07/24/20 11:01 BP 139/60 07/24/20 11:01 Pulse Ox 100 07/24/20 11:01 Body Mass Index 27.3 Const: General: cooperative, no acute distress and confusion (Mild) Orientation/consciousness: confusion (Mild) HENMT: Head: Yes normocephalic and Yes atraumatic Neck: Neck: Yes normal visual inspection Resp: Effort & Inspection: normal respiratory effort Auscultation: rhonchi and wheezes Cardio: Rate: regular rate Rhythm: regular rhythm GI: Other: Nontender, nondistended Neuro: General: confusion (Mild) Extrem: Other: Left lower extremity-skin of lower leg is shiny and hairless. Pedal pulses are not palpable. The left foot is cool. Right lower extremity-moderate edema and erythema of the right foot and lower leg extending about 2[address] between the ankle and knee. The skin of the lower leg is shiny and hairless. Pedal pulses are not palpable. The right g reat toe is cool and dusky. There is eschar on the plantar aspect of the right distal foot in the region of the 1st metatarsal head extending toward the base of the 1st toe in an area measuring about 5 x 2.8 cm. There is a 1 cm opening at the proximal margin of the area of eschar and there is foul smelling thin, bloody purulence drainage present Psych: Insight: Limited insight present (Psych) Judgement: Limited judgement present (Psych) Results Labs Result diagrams: 07/24/20 11:18 07/24/20 11:18 Labs: Abnormal lab results 07/24/20 07/24/20 07/24/20 Range/Units 11:18 11:18 11:18 WBC 14.4 H (4.8-10.8) X10*3/uL RBC 3.33 L (4.60-5.80) X10*6/uL Hgb 10.7 L (14.0-18.0) g/dl Hct 30.7 L (42-52) % Immature Gran % (Auto) 0.7 H (0.0-0.4) % Neut % (Auto) 85.6 H (45-73) % Lymph % (Auto) 4.0 L (20-40) % Lymph # (Auto) 0.6 L (1.2-4.9) X10*3/uL [place] # (Auto) 1.3 H (0.1-1.2) X10*3/uL Abs Immat Gran (auto) 0.10 H (0.00-0.03) X10*3/uL Absolute Neuts (auto) 12.3 H (2.0-8.3) X10*3/uL ESR (0-15) MM/HR PT 17.1 H (10.8-13.0) SEC INR 1.4 H (0.9-1.1) Sodium 129 L (135-145) mmol/L Chloride 94 L (96-108) mmol/L BUN 17 H (9-16) mg/dL Calcium 7.8 L (8.4-10.2) mg/dL Ferritin 593 H (20-250) ng/mL AST 104 H (5-37) U/L ALT 74 H (0-40) U/L C-Reactive Protein 23.40 H (< or = 0.50) mg/dL Total Protein 5.8 L (6.5-8.0) g/dL Albumin 2.8 L (3.5-5.0) g/dL 07/24/20 Range/Units 11:18 WBC (4.8-10.8) X10*3/uL RBC (4.60-5.80) X10*6/uL Hgb (14.0-18.0) g/dl Hct (42-52) % Immature Gran % (Auto) (0.0-0.4) % Neut % (Auto) (45-73) % Lymph % (Auto) (20-40) % Lymph # (Auto) (1.2-4.9) X10*3/uL [place] # (Auto) (0.1-1.2) X10*3/uL Abs Immat Gran (auto) (0.00-0.03) X10*3/uL Absolute Neuts (auto) (2.0-8.3) X10*3/uL ESR 93 H (0-15) MM/HR PT (10.8-13.0) SEC INR (0.9-1.1) Sodium (135-145) mmol/L Chloride (96-108) mmol/L BUN (9-16) mg/dL Calcium (8.4-10.2) mg/dL Ferritin (20-250) ng/mL AST (5-37) U/L ALT (0-40) U/L C-Reactive Protein (< or = 0.50) mg/dL Total Protein (6.5-8.0) g/dL Albumin (3.5-5.0) g/dL Short CBC 07/24/20 Range/Units 11:18 WBC 14.4 H (4.8-10.8) X10*3/uL Hgb 10.7 L (14.0-18.0) g/dl Hct 30.7 L (42-52) % Plt Count 237 (160-400) X10*3/uL BMP 07/24/20 11:18 Sodium 129 L Potassium 4.3 Chloride 94 L Carbon Dioxide 24 BUN 17 H Creatinine 0.88 Calcium 7.8 L Liver Function 07/24/20 Range/Units 11:18 Total Bilirubin 0.9 (0.0-1.0) mg/dL AST 104 H (5-37) U/L ALT 74 H (0-40) U/L Alkaline Phosphatase 83 (39-117) U/L Albumin 2.8 L (3.5-5.0) g/dL All other labs normal. Assessment and Plan (1) Type 2 diabetes mellitus with peripheral artery disease: Status: Acute He has exam and imaging findings consistent with significant peripheral arterial disease of the right lower extremity with active infection and soft tissue necrosis. Vascular consultation will be requested. (2) Type 2 diabetes mellitus with diabetic foot infection: Status: Acute He has a diabetic foot infection with soft tissue necrosis and evidence of ischemia involving his right great toe. He may have active osteomyelitis as well. MRI is in progress. Antibiotic therapy has been initiated. I removed a portion of the eschar on the plantar aspect of the right foot to allow for more adequate drainage pending vascular consultation. Continue IV antibiotics. Procedures Procedure Note Procedure Note: Debridement eschar right foot. I discussed the planned procedure with the patient and placed a call to his , but was in able to reach her prior to the procedure. I spoke with her shortly afterward. I prepped the area of the eschar on the plantar aspect of the right foot with Betadine solution and sharply excised the proximal portion of the eschar in an area measuring 2.2 x 1.8 x 0.2 cm as well as some underlying necrotic subcutaneous tissue. There is exposed tendon in the base of the wound. I was easily able to pass a probe between the 1st and 2nd toes into the soft tissues on the dorsum of the foot. I irrigated the wound with saline solution and applied a moist saline dressing. He tolerated the procedure well.
[2020-07-24] MEDS: Lactated Ringers 1,000 ML 100 ML IVCONT (18:35)
[2020-07-24 19:23] VITALS: BP 126/52; PULSE 83; RESP 21; TEMP 37.1; O2SAT 97
[2020-07-24 19:32] LABS: Glucose Urine UA NEG (NEG); Leukocyte Esterase Urine NEG (NEG); Nitrite Urine NEG (NEG); Urine Blood 2+ (NEG); Urine Ketones NEG (NEG); Urine Protein NEG (NEG-TRACE)
[2020-07-24 19:33] LABS: Appearance Urine HAZY; Color Urine YELLOW
[2020-07-24 19:48] LABS: Bacteria Urine TRACE /LPF; Squamous Epithelial Cell Urine TRACE /LPF; Urine Talc Crystals 3+ /LPF; WBC Urine 0-2 /HPF (0-4)
[2020-07-24 20:00] VITALS: BP 152/95; PULSE 83; RESP 18; TEMP 36.7; O2SAT 98
[2020-07-24 20:32] LABS: Glucose, Whole Blood 81 mg/dL (60-115)
[2020-07-24] MEDS: 0.9 % Sodium Chloride Flush 3 ML SYRINGE IVFLUSH ×2 (21:46→23:47)
[2020-07-24] MEDS: Enoxaparin Sodium 40 MG/0.4 ML SYRINGE SUBCUT (21:46)
[2020-07-24 21:53] VITALS: BMI 25.2
[2020-07-24 23:44] VITALS: BP 136/60; PULSE 81; RESP 18; TEMP 37; O2SAT 97
[2020-07-25 00:55] LABS: Glucose, Whole Blood 115 mg/dL (60-115)
[2020-07-25] MEDS: Piperacillin Sodium/Tazobactam 3.375 GM in 0.9 % Sodium Chloride 50 ML IV ×4 (02:21→20:13)
[2020-07-25 03:19] VITALS: BP 125/57; PULSE 76; RESP 18; TEMP 37; O2SAT 99
[2020-07-25 06:22] LABS: MANUAL DIFF FLAG NO
[2020-07-25 06:37] LABS: Basophils Absolute Auto 0.1 X10*3/uL (0.0-0.2); Basophils Percent Auto 0.4 % (0-2); Eosinophils Percent Auto 0.1 % (0-4); Hematocrit 29.4 % (42-52); Hemoglobin 9.9 g/dl (14.0-18.0); Imm Gran Abs Auto 0.17 X10*3/uL (0.00-0.03); Imm Gran Pct Auto 1.2 % (0.0-0.4); Lymphocytes Absolute Auto 0.8 X10*3/uL (1.2-4.9); Lymphocytes Percent Auto 5.7 % (20-40); Mean Corpuscular HGB Conc 33.7 g/dl (31.0-36.0); Mean Corpuscular Hemoglobin 31.4 pg (27.0-33.0); Mean Corpuscular Volume 93.3 fL (80-98); Mean Platelet Volume 9.7 fL (9.4-12.4); Monocytes Percent Auto 6.9 % (2-11); Neutrophils Absolute Auto 12.2 X10*3/uL (2.0-8.3); Neutrophils Percent Auto 85.7 % (45-73); Platelet Count 242 X10*3/uL (160-400); Red Blood Count 3.15 X10*6/uL (4.60-5.80); Red Cell Distribution Width 13.2 % (11.0-16.0); White Blood Count 14.2 X10*3/uL (4.8-10.8)
[2020-07-25 07:10] LABS: Anion Gap 12 (12-20); Blood Urea Nitrogen 14 mg/dL (9-16); Calcium 7.5 mg/dL (8.4-10.2); Carbon Dioxide 25 mmol/L (22-29); Chloride 98 mmol/L (96-108); Creatinine Clr Calc Pharmacy 76.1; Estimated Glomerular Filt Rate > 60; Glucose Random 85 mg/dL (60-115); Sodium 131 mmol/L (135-145)
[2020-07-25 07:15] VITALS: BP 104/58; PULSE 76; RESP 20; TEMP 36.1; O2SAT 94
[2020-07-25 07:19] LABS: Glucose, Whole Blood 85 mg/dL (60-115)
--- NOTE | 2020-07-25 08:44 | MHC.CM.PN ---
CM met with Patient at bedside and addressed IMM with him, providing him with the original and placing a copy on the chart.Patient lives in a house with his and adult Son(who receives services in the home) and he had no prior services for himself(May need VNA R/T Foot Ulcer) and requires no DME. Patient's goal is to return home and CM has initiated and will follow for dc planninfg. HCP on file and PCP is Dr. Jayla Murrieta.
[2020-07-25] MEDS: amLODIPine Besylate 10 MG TABLET PO (08:46)
[2020-07-25] MEDS: Aspirin Enteric Coated 81 MG TABLET.DR PO (08:46)
[2020-07-25] MEDS: Cholecalciferol (Vitamin D3) 25 MCG TABLET PO (08:46)
--- NOTE | 2020-07-25 08:56 | ECG_ITS ---
Test Reason : FAST HEARTRATE Blood Pressure : / mmHG Vent. Rate : 135 BPM Atrial Rate : 441 BPM P-R Int : 000 ms QRS Dur : 086 ms QT Int : 332 ms P-R-T Axes : 000 041 023 degrees QTc Int : 498 ms Atrial fibrillation with rapid ventricular response Abnormal ECG When compared with ECG of 24-JUL-2020 11:38, Atrial fibrillation has replaced Sinus rhythm Vent. rate has increased BY 47 BPM Referred By: Chelsea Meza Electronically Signed By:ASA BATEMAN
--- NOTE | 2020-07-25 09:55 | P.CONGS_ITS ---
History of Present Illness Consult details Consult date: 07/25/20 Reason for consult: wound care Narrative: 75-year-old diabetic male with a history of smoking presented to the emergency room yesterday with a nonhealing right lower extremity ulcer. It has been progressing for several months. It has progressively gotten worse. Patient was seen by General surgery yesterday. Noted to be a more significant wound. They were concerned about arterial status. Noninvasive arterial ultrasound was obtained. He now presents to us for vascular evaluation. Review of Systems Review of Systems: Yes all other systems are reviewed and are negative Constitutional: Constitutional: Reports no additional constitutional complaints ENT: Reports Normal hearing present Cardiovascular: Cardiovascular: Denies chest pain, Denies chest pain at rest, Denies chest pain with activity and Denies pedal edema Respiratory: Respiratory: Denies cough Gastrointestinal: Gastrointestinal: Denies abdominal pain Musculoskeletal: Musculoskeletal: Denies abnormal gait, Denies muscle cramps and Denies radiating pain into limb Integumentary/Breasts: Skin/Breast: Denies skin ulcer and Denies wounds Neurologic: Reports Normal hearing present and Denies abnormal gait Psychiatric: Psychiatric: Reports no additional psychiatric complaints [facility] Past Medical History Medical History (Updated 07/25/20 @ 10:02 by Juan Oscar MD) Anxiety and depression Asthma Avascular necrosis of bone of hip Coronary artery disease Diabetic foot ulcer Diabetic nephropathy Diabetic neuropathy Diverticular disease Hypercholesterolemia Hypertension Osteomyelitis of toe Thrombocytopenia Tobacco abuse Tubular adenoma of colon Type 2 diabetes mellitus with hyperglycemia Vitamin D deficiency Family History Family History Father Diabetes Hypertension CVD (cardiovascular disease) Stroke Mother CVD (cardiovascular disease) Hypertension Cancer Sister No problems noted. Surgical History Surgical History Amputation finger History of cataract surgery History of surgery Social History Social History Household Members: Family Housing: House Alcohol intake: never Smoking Status: Light tobacco smoker Tobacco Type: Cigarette Cigarettes Per Day: 7 Advance Directives Date on File: 07/24/20 service: No Current occupational status: retired Meds Allergies Allergy/AdvReac Type Severity Reaction Status Date / Time No Known Allergies Allergy Mild Verified 04/14/20 13:17 Active Medications: Current Medications Generic Name Dose Route Start Last Admin Trade Name Freq PRN Reason Stop Dose Admin Acetaminophen 650 mg 07/24/20 19:18 Acetaminophen 325 Mg Tablet PO Q6H PRN Pain, Mild (Pain Scale 1-3) Amlodipine Besylate 10 mg 07/25/20 09:00 07/25/20 08:46 Amlodipine Besylate 10 Mg Tablet PO 10 mg DAILY [facility] Administration Protocol Aspirin 81 mg 07/25/20 09:00 07/25/20 08:46 Aspirin Enteric Coated 81 Mg Tablet. PO 81 mg DAILY PR[facility] Administration Enoxaparin Sodium 40 mg 07/24/20 19:18 07/24/20 21:46 Enoxaparin Sodium 40 Mg/0.4 Ml Syringe SUBCUT 40 mg Q24H [facility] Administration Lactated Ringer's 1,000 mls @ 100 mls/hr 07/24/20 16:45 07/25/20 08:55 Lr IVCONT 07/25/20 12:44 Infused .Q10H [facility] Infusion Piperacillin Sod/Tazobactam 50 mls @ 100 mls/hr 07/24/20 20:00 07/25/20 09:26 Sod 3.375 gm/ Sodium Chloride IV Infused Q6H [facility] Infusion Vancomycin HCl 1,250 mg/ 250 mls @ 166.667 mls/hr 07/25/20 13:00 Sodium Chloride IV Q24H [facility] Insulin Human Lispro 0 unit 07/24/20 21:00 07/25/20 08:45 Insulin Lispro 100 Unit/Ml 3 Ml Vial SUBCUT Not Given QIDACHS [facility] Protocol Non-Formulary Medication 1 drop 07/25/20 09:00 Timolol EYE-LEFT DAILY [facility] Ondansetron HCl 4 mg 07/24/20 19:18 Ondansetron Hcl 4 Mg/2 Ml Vial IVPUSH Q8H PRN Nausea and Vomiting Pharmacy Consult 1 each 07/24/20 13:00 Consult Rx Vancomycin Dosing MISCELLANE DAILY PRN Consult order Pharmacy Consult 1 each 07/24/20 19:18 Consult Rx Vancomycin Dosing MISCELLANE DAILY PRN Consult order Sodium Chloride 3 ml 07/24/20 19:18 07/25/20 08:45 0.9 % Sodium Chloride Flush 3 Ml Syringe IVFLUSH Not Given QSHIFT [facility] Vitamin D 25 mcg 07/25/20 09:00 07/25/20 08:46 Cholecalciferol (Vitamin D3) 25 Mcg Tablet PO 25 mcg DAILY [facility] Administration Zolpidem Tartrate 5 mg 07/24/20 19:18 Zolpidem Tartrate 5 Mg Tablet PO BEDTIME PRN Insomnia Home Medications Medication Instructions Recorded Confirmed Last Taken Type aspirin 81 mg tablet,delayed 81 mg PO DAILY 04/14/20 07/24/20 07/23/20 History release atorvastatin 10 mg tablet 10 mg PO BEDTIME 04/14/20 07/24/20 07/23/20 History cholecalciferol (vitamin D3) 25 25 mcg PO DAILY 04/14/20 07/24/20 07/23/20 History mcg (1,000 unit) capsule metformin 500 mg tablet 500 mg PO BID 04/14/20 07/24/20 07/23/20 History timolol 0.25 % eye drops 1 drp OPHTHALMIC-LEFT DAILY 04/14/20 07/24/20 07/23/20 History hydrochlorothiazide 12.5 mg PO DAILY 07/24/20 07/24/20 07/23/20 History Physical Exam Vital Signs: Vital Signs: Last Vital Signs Temp 97 F 07/25/20 07:15 Pulse 76 07/25/20 07:15 Resp 20 07/25/20 07:15 BP 104/58 L 07/25/20 07:15 Pulse Ox 94 07/25/20 07:15 Body Mass Index 25.2 Const: General: cooperative, healthy appearing and comfortable Orientation/consciousness: oriented to person, oriented to place and oriented to time HENMT: Head: Yes normal to inspection Neck: Neck: Yes normal visual inspection Carotids: no bruits Chest: Chest palpation & inspection: normal inspection of the chest Resp: Effort & Inspection: normal respiratory effort and able to speak in complete sentences Auscultation: clear to auscultation bilaterally, no crackles, no rales, no rhonchi and no wheezes Cardio: Rate: regular rate Rhythm: regular rhythm Heart sounds: S1 normal heart sound present and S2 normal heart sound present Bruits: no carotid bruits Peripheral pulses: dorsalis pedis present (Bilateral DP signals) GI: Inspection: Yes normal to inspection Skin: Wounds: wounds noted (Right great toe) Hair: normal Neuro: General: oriented to person, oriented to place and oriented to time Cranial nerves: Yes CN's II-XII intact bilaterally and Yes Normal hearing present Cognition (Neuro): normal cognition Motor exam (neuro): 5/5 motor strength present throughout Extrem: Other: venous exam: No significant superficial varicosities or spider telangiectasias, minimal edema General: No clubbing, No cyanosis and No edema Psych: Appearance: grossly normal Mental Status: mental status grossly normal Speech and movement: Normal speech and movement present Results Labs Result diagrams: 07/25/20 05:45 07/25/20 05:45 Labs: Abnormal lab results 07/24/20 07/24/20 07/24/20 Range/Units 11:18 11:18 11:18 WBC 14.4 H (4.8-10.8) X10*3/uL RBC 3.33 L (4.60-5.80) X10*6/uL Hgb 10.7 L (14.0-18.0) g/dl Hct 30.7 L (42-52) % Immature Gran % (Auto) 0.7 H (0.0-0.4) % Neut % (Auto) 85.6 H (45-73) % Lymph % (Auto) 4.0 L (20-40) % Lymph # (Auto) 0.6 L (1.2-4.9) X10*3/uL [place] # (Auto) 1.3 H (0.1-1.2) X10*3/uL Abs Immat Gran (auto) 0.10 H (0.00-0.03) X10*3/uL Absolute Neuts (auto) 12.3 H (2.0-8.3) X10*3/uL ESR (0-15) MM/HR PT 17.1 H (10.8-13.0) SEC INR 1.4 H (0.9-1.1) Sodium 129 L (135-145) mmol/L Chloride 94 L (96-108) mmol/L BUN 17 H (9-16) mg/dL Calcium 7.8 L (8.4-10.2) mg/dL Ferritin 593 H (20-250) ng/mL AST 104 H (5-37) U/L ALT 74 H (0-40) U/L C-Reactive Protein 23.40 H (< or = 0.50) mg/dL Total Protein 5.8 L (6.5-8.0) g/dL Albumin 2.8 L (3.5-5.0) g/dL Urine Blood (NEG) 07/24/20 07/24/20 07/25/20 Range/Units 11:18 19:25 05:45 WBC 14.2 H (4.8-10.8) X10*3/uL RBC 3.15 L (4.60-5.80) X10*6/uL Hgb 9.9 L (14.0-18.0) g/dl Hct 29.4 L (42-52) % Immature Gran % (Auto) 1.2 H (0.0-0.4) % Neut % (Auto) 85.7 H (45-73) % Lymph % (Auto) 5.7 L (20-40) % Lymph # (Auto) 0.8 L (1.2-4.9) X10*3/uL [place] # (Auto) (0.1-1.2) X10*3/uL Abs Immat Gran (auto) 0.17 H (0.00-0.03) X10*3/uL Absolute Neuts (auto) 12.2 H (2.0-8.3) X10*3/uL ESR 93 H (0-15) MM/HR PT (10.8-13.0) SEC INR (0.9-1.1) Sodium (135-145) mmol/L Chloride (96-108) mmol/L BUN (9-16) mg/dL Calcium (8.4-10.2) mg/dL Ferritin (20-250) ng/mL AST (5-37) U/L ALT (0-40) U/L C-Reactive Protein (< or = 0.50) mg/dL Total Protein (6.5-8.0) g/dL Albumin (3.5-5.0) g/dL Urine Blood 2+ H (NEG) 07/25/20 Range/Units 05:45 WBC (4.8-10.8) X10*3/uL RBC (4.60-5.80) X10*6/uL Hgb (14.0-18.0) g/dl Hct (42-52) % Immature Gran % (Auto) (0.0-0.4) % Neut % (Auto) (45-73) % Lymph % (Auto) (20-40) % Lymph # (Auto) (1.2-4.9) X10*3/uL [place] # (Auto) (0.1-1.2) X10*3/uL Abs Immat Gran (auto) (0.00-0.03) X10*3/uL Absolute Neuts (auto) (2.0-8.3) X10*3/uL ESR (0-15) MM/HR PT (10.8-13.0) SEC INR (0.9-1.1) Sodium 131 L (135-145) mmol/L Chloride (96-108) mmol/L BUN (9-16) mg/dL Calcium 7.5 L (8.4-10.2) mg/dL Ferritin (20-250) ng/mL AST (5-37) U/L ALT (0-40) U/L C-Reactive Protein (< or = 0.50) mg/dL Total Protein (6.5-8.0) g/dL Albumin (3.5-5.0) g/dL Urine Blood (NEG) Short CBC 07/24/20 07/25/20 Range/Units 11:18 05:45 WBC 14.4 H 14.2 H (4.8-10.8) X10*3/uL Hgb 10.7 L 9.9 L (14.0-18.0) g/dl Hct 30.7 L 29.4 L (42-52) % Plt Count 237 242 (160-400) X10*3/uL BMP 07/24/20 07/25/20 11:18 05:45 Sodium 129 L 131 L Potassium 4.3 4.0 Chloride 94 L 98 Carbon Dioxide 24 25 BUN 17 H 14 Creatinine 0.88 0.76 Calcium 7.8 L 7.5 L Liver Function 07/24/20 Range/Units 11:18 Total Bilirubin 0.9 (0.0-1.0) mg/dL AST 104 H (5-37) U/L ALT 74 H (0-40) U/L Alkaline Phosphatase 83 (39-117) U/L Albumin 2.8 L (3.5-5.0) g/dL Urine 07/24/20 Range/Units 19:25 Urine Color YELLOW Urine Appearance HAZY Urine pH 6.0 (5.0-8.0) Ur Specific Fe [employer] 1.010 (1.005-1.025) Urine Protein NEG (NEG-TRACE) MG/DL Urine Glucose (UA) NEG (NEG) MG/DL All other labs normal. Assessment and Plan (1) PAD (peripheral artery disease): Status: Acute Patient notes nonhealing right great toe ulcer. We are awaiting results of MRI as well. I have discussed the pathophysiology of peripheral vascular disease with the patient. I have also discussed risk factor modification. I have reviewed the patient's arterial testing which reveals right SFA disease. the patient would benefit from a right leg endovascular peripheral angiogram with possible angioplasty, stent, and/or atherectomy. This has been discussed in detail with the patient along with risks, benefits, and complications. This includes but is not limited to bleeding, infection, heart attack, need for emergent surgical repair, limb ischemia, blood vessel damage, bleeding, puncture, kidney injury, bruising, allergic reaction, and skin reaction. The patient demonstrates a clear understanding. We will schedule for Tuesday. Thank you for allowing us to assist in this patient's care.
--- NOTE | 2020-07-25 10:28 | P.CDIC_ITS ---
CDI Concurrent Query Service Date: 07/25/20 Documentation Clarification: Please clarify if you are treating a proba ble/suspected/likely or confirmed: Mild Protein Calorie Malnutrition Moderate Protein Calorie Malnutrition Severe Protein Calorie Malnutrition Degree unclear, await formal nutrition evaluation Provider Response: Other Other Diagnosis: await formal nutrition evaluation PLEASE DO NOT DELETE/MODIFY EXISTING CONTENT Additional information is needed in order to code to the highest accuracy and appropriate Severity of Illness (SOI). Please clarify the information noted below in your progress notes and discharge summary. Risk Factors/Clinical Indicators/Treatments 75 year old male admitted with Sepsis due to diabetic foot infection, possible Osteomyelitis, Hyponatremia, Toxic/ Metabolic Encephalopathy, new onset Atrial Fibrillation HT 5'7 WT 73.3 kg BMI 25.3 Total protein 5.8, Albumin 2.8 No Nutrition Assessment in EMR CDS: Milagro Farris RN Contact Number: [phone] Please Review the information above and exercise your independent professional judgment in responding to the query. If you concur, pleas document in the PROGRESS NOTES and DISCHARGE SUMMARY. If you do not agree with the query, please document in the query above. THIS QUERY IS PART OF THE PERMANENT MEDICAL RECORD
[2020-07-25 11:15] VITALS: BP 125/60; PULSE 76; RESP 20; TEMP 36.6; O2SAT 95
[2020-07-25 11:20] LABS: Glucose, Whole Blood 91 mg/dL (60-115)
[2020-07-25] MEDS: Nicotine 14 MG PATCH.TD24 TRANSDERMA (12:42)
[2020-07-25] MEDS: vancomycin HCL 1,250 MG in 0.9 % Sodium Chloride 250 ML 166.67 MG IV (12:43)
--- NOTE | 2020-07-25 13:57 | HO.PM.IMPN ---
Subjective Subjective Date of Service: 07/25/20 <BRIA Millan - Last Filed: 07/25/20 15:35> 07/25/20 <Abdirizak Walter MD - Last Filed: 07/25/20 15:41> Interval History: follow up foot ulcer, new afib no episodes of afib overnight. no chest pain, palpitations, sob Feeling overwhelmed with his medical issues. Has some pain in right leg. <BRIA Millan - Last Filed: 07/25/20 15:35> Review of Systems Review of Systems: Yes all other systems are reviewed and are negative <BRIA Millan - Last Filed: 07/25/20 15:35> Constitutional Constitutional: Denies chills and Denies fever(s) <BRIA Millan - Last Filed: 07/25/20 15:35> Cardiovascular Cardiovascular: Denies chest pain <BRIA Millan - Last Filed: 07/25/20 15:35> Respiratory Respiratory: Denies cough <BRIA Millan - Last Filed: 07/25/20 15:35> Gastrointestinal Gastrointestinal: Denies abdominal pain <BRIA Millan - Last Filed: 07/25/20 15:35> Physical Exam Vital Signs: Vital Signs: Last Vital Signs Temp 98 F 07/25/20 11:15 Pulse 76 07/25/20 11:15 Resp 20 07/25/20 11:15 BP 125/60 07/25/20 11:15 Pulse Ox 95 07/25/20 11:15 Body Mass Index 25.2 <BRIA Millan - Last Filed: 07/25/20 15:35> Const: General: alert and awake <BRIA Millan - Last Filed: 07/25/20 15:35> Nutritional Appearance: thin <BRIA Millan - Last Filed: 07/25/20 15:35> Orientation/consciousness: patient oriented x3 <BRIA Millan - Last Filed: 07/25/20 15:35> HENMT: Head: Yes normocephalic and Yes atraumatic <BRIA Millan - Last Filed: 07/25/20 15:35> Eyes: Sclerae: sclerae normal <BRIA Millan - Last Filed: 07/25/20 15:35> Chest: Chest palpation & inspection: normal inspection of the chest <BRIA Millan - Last Filed: 07/25/20 15:35> Resp: Effort & Inspection: normal respiratory effort and no respiratory distress <BRIA Millan - Last Filed: 07/25/20 15:35> Cardio: Rate: regular rate <BRIA Millan - Last Filed: 07/25/20 15:35> Rhythm: regular rhythm <BRIA Millan - Last Filed: 07/25/20 15:35> GI: Palpation (GI): Soft to palpation and nontender <BRIA Millan - Last Filed: 07/25/20 15:35> Skin: Other: <BRIA Millan - Last Filed: 07/25/20 15:35> Neuro: General: patient oriented x3 <BRIA Millan - Last Filed: 07/25/20 15:35> Cranial nerves: Yes CN's II-XII intact bilaterally and Yes Bilaterally intact EOM present <BRIA Millan Last Filed: 07/25/20 15:35> Objective Data Current Medications Generic Name Dose Route Start Last Admin Trade Name Freq PRN Reason Stop Dose Admin Acetaminophen 650 mg 07/24/20 19:18 Acetaminophen 325 Mg Tablet PO Q6H PRN Pain, Mild (Pain Scale 1-3) Amlodipine Besylate 10 mg 07/25/20 09:00 07/25/20 08:46 Amlodipine Besylate 10 Mg Tablet PO 10 mg DAILY [facility] Administration Protocol Aspirin 81 mg 07/25/20 09:00 07/25/20 08:46 Aspirin Enteric Coated 81 Mg Tablet.Dr PO 81 mg DAILY [facility] Administration Enoxaparin Sodium 40 mg 07/24/20 19:18 07/24/20 21:46 Enoxaparin Sodium 40 Mg/0.4 Ml Syringe SUBCUT 40 mg Q24H [facility] Administration Piperacillin Sod/Tazobactam 50 mls @ 100 mls/hr 07/24/20 20:00 07/25/20 09:26 Sod 3.375 gm/ Sodium Chloride IV Infused Q6H [facility] Infusion Vancomycin HCl 1,250 mg/ 250 mls @ 166.667 mls/hr 07/25/20 13:00 07/25/20 12:43 Sodium Chloride IV 166.67 mls/hr Q24H [facility] Administration Sodium Chloride 1,000 mls @ 100 mls/hr 07/28/20 09:15 Ns IVCONT .Q10H [facility] Insulin Human Lispro 0 unit 07/24/20 21:00 07/25/20 11:22 Insulin Lispro 100 Unit/Ml 3 Ml Vial SUBCUT Not Given QIDACHS [facility] Protocol Nicotine 14 mg 07/25/20 11:00 07/25/20 12:42 Nicotine 14 Mg Patch.Td24 TRANSDERMA 14 mg DAILY [facility] Administration Non-Formulary Medication 1 drop 07/25/20 09:00 Timolol EYE-LEFT DAILY [facility] Ondansetron HCl 4 mg 07/24/20 19:18 Ondansetron Hcl 4 Mg/2 Ml Vial IVPUSH Q8H PRN Nausea and Vomiting Pharmacy Consult 1 each 07/24/20 13:00 Consult Rx Vancomycin Dosing MISCELLANE DAILY PRN Consult order Pharmacy Consult 1 each 07/24/20 19:18 Consult Rx Vancomycin Dosing MISCELLANE DAILY PRN Consult order Sodium Chloride 3 ml 07/24/20 19:18 07/25/20 08:45 0.9 % Sodium Chloride Flush 3 Ml Syringe IVFLUSH Not Given QSHIFT [facility] Vitamin D 25 mcg 07/25/20 09:00 07/25/20 08:46 Cholecalciferol (Vitamin D3) 25 Mcg Tablet PO 25 mcg DAILY [facility] Administration Zolpidem Tartrate 5 mg 07/24/20 19:18 Zolpidem Tartrate 5 Mg Tablet PO BEDTIME PRN Insomnia <BRIA Millan - Last Filed: 07/25/20 15:35> Labs CBC & Chem 7: : 07/25/20 05:45 07/25/20 05:45 <BRIA Millan - Last Filed: 07/25/20 15:35> Microbiology Microbiology Results: Microbiology 07/24/20 11:44 Blood - Venous Blood Culture - Preliminary No growth after 24 hours. 07/24/20 11:18 Blood - Venous Blood Culture - Preliminary No growth after 24 hours. 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 His presentation and workup is consistent with diabetic foot infection, sepsis found to have osteomyelitis Sepsis present on admission Due to diabetic foot infection/osteomyelitis Diabetic foot infection/osteomyelitis, right foot MRI showing osteomyelitis/osteonecrosis as well as abscess Seen by surgery s/p bedside debridement 07/24; I&D today (07/25) Vascular studies showing PVD, seen by vascular surgery, plan for angiogram/angioplasty Tuesday Will likely need amputation Follow-up cultures Toxic/metabolic encephalopathy Due to above issues Hyponatremia mild, likely hypovolemic. Na 131 today -Continue IVF New onset A. Fib with variable rate converted back and forth twice while in the ED currently in sinus likely related to acute illness / sepsis will observe at this time and if recurrent will need further work up and likely oral anticoagulation cardiology consult and echo if needed inpatient Normocytic Anemia -Follow CBC HTN BP soft -hold Norvasc, HCTZ, lisinopril HLD statin on hold due to mild elevated in liver function DM POC controlled hold metformin use sliding scale diabetic diet Fluid collection noted in the abdomen which was on ultrasound from 2011. 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 No abdominal pain at this time. -ultrasound to fully evaluate. DVT prophylaxis-Lovenox Attending-Dr. Walter <BRIA Millan - Last Filed: 07/25/20 15:35> Attending Attestation: Patient seen and examined independently and I was present during kurtz portion of E/M service. Agree with BRIA Davis's history, physical, assessment, and plan. Bedside I&D x 2 by Gen Surg. Seen by Vascular - angiogram/plasty Tuesday. Suspected he will need some degree of amputation Contineu antibiotics F/u Cultures. <Abdirizak Walter MD - Last Filed: 07/25/20 15:41>
--- NOTE | 2020-07-25 14:41 | PM.PNGS ---
Subjective Subjective Date of Service: 07/25/20 Interval history: describes pain on the foot, R no events reported Physical Exam Vital Signs: Vital Signs: Last Vital Signs Temp 98 F 07/25/20 11:15 Pulse 76 07/25/20 11:15 Resp 20 07/25/20 11:15 BP 125/60 07/25/20 11:15 Pulse Ox 95 07/25/20 11:15 Body Mass Index 25.2 Const: General: no acute distress Resp: Effort & Inspection: normal respiratory effort Cardio: Rhythm: regular rhythm Extrem: Other: right foot - redness up to the lower leg; dry gangrene of areas of the big toe at the plantar aspect,and interphalangeal,with foul-smell, ulcer on the base at plantar aspect Laboratory Results - last 24 hr 07/24/20 07/24/20 07/24/20 11:18 19:25 20:24 WBC RBC Hgb Hct MCV MCH MCHC RDW Plt Count MPV Immature Gran % (A uto) Neut % (Auto) Lymph % (Auto) [place] % (Auto) Eos % (Auto) Baso % (Auto) Lymph # (Auto) [place] # (Auto) Eos # (Auto) Baso # (Auto) Abs Immat Gran (au to) Absolute Neuts (au to) Absolute Nucleated RBC Nucleated RBC % (a uto) ESR 93 H Sodium Potassium Chloride Carbon Dioxide Anion Gap BUN Creatinine Estim Creat Clear Calc Estimated GFR POC Glucose 81 Random Glucose Calcium Urine Color YELLOW Urine Appearance HAZY Urine pH 6.0 Ur Specific Gravit y 1.010 Urine Protein NEG Urine Glucose (UA) NEG Urine Ketones NEG Urine Blood 2+ H Urine Nitrite NEG Ur Leukocyte Nayeli ase NEG Urine RBC 1-4 Urine WBC 0-2 Ur Squamous Epith Cells TRACE [place] Crystals 3+ Urine Bacteria TRACE 07/25/20 07/25/20 07/25/20 00:46 05:45 05:45 WBC 14.2 H RBC 3.15 L Hgb 9.9 L Hct 29.4 L MCV 93.3 MCH 31.4 MCHC 33.7 RDW 13.2 Plt Count 242 MPV 9.7 Immature Gran % (A uto) 1.2 H Neut % (Auto) 85.7 H Lymph % (Auto) 5.7 L [place] % (Auto) 6.9 Eos % (Auto) 0.1 Baso % (Auto) 0.4 Lymph # (Auto) 0.8 L [place] # (Auto) 1.0 Eos # (Auto) 0.0 Baso # (Auto) 0.1 Abs Immat Gran (au to) 0.17 H Absolute Neuts (au to) 12.2 H Absolute Nucleated RBC 0.000 Nucleated RBC % (a uto) 0.0 ESR Sodium 131 L Potassium 4.0 Chloride 98 Carbon Dioxide 25 Anion Gap 12 BUN 14 Creatinine 0.76 Estim Creat Clear Calc 76.1 Estimated GFR > 60 POC Glucose 115 Random Glucose 85 Calcium 7.5 L Urine Color Urine Appearance Urine pH Ur Specific Gravit y Urine Protein Urine Glucose (UA) Urine Ketones Urine Blood Urine Nitrite Ur Leukocyte Nayeli ase Urine RBC Urine WBC Ur Squamous Epith Cells Talc Crystals Urine Bacteria 07/25/20 07/25/20 07:15 11:15 WBC RBC Hgb Hct MCV MCH MCHC RDW Plt Count MPV Immature Gran % (A uto) Neut % (Auto) Lymph % (Auto) [place] % (Auto) Eos % (Auto) Baso % (Auto) Lymph # (Auto) [place] # (Auto) Eos # (Auto) Baso # (Auto) Abs Immat Gran (au to) Absolute Neuts (au to) Absolute Nucleated RBC Nucleated RBC % (a uto) ESR Sodium Potassium Chloride Carbon Dioxide Anion Gap BUN Creatinine Estim Creat Clear Calc Estimated GFR POC Glucose 85 91 Random Glucose Calcium Urine Color Urine Appearance Urine pH Ur Specific Gravit y Urine Protein Urine Glucose (UA) Urine Ketones Urine Blood Urine Nitrite Ur Leukocyte Nayeli ase Urine RBC Urine WBC Ur Squamous Epith Cells Talc Crystals Urine Bacteria Progress Note: A&P Assessment and plan (1) Abscess of right foot: Status: Acute Assessment and Plan: MRI shows osteomyelitis big toe, abscess on interphalangeal area I therefore explained to him I will open up this area and do I and D reviewed technique of procedure He has neuropathy , and eschar,so I no anesthesia given I prepped and draped area of big toe eschar, with foul-smell on plantar aspect of big toe, interphalangeal space, extending to dorsum of base of big toe and base of toe I used fine scissors to open up the interphalangeal area; pus drained cultures done I excised eschar full thickness of skin and subq layer about 2x4 cm I then expressed as much pus as I could applied dry dressings, wrapped foot with alton roll ffup on cultures he is scheduled for angiogram and angioplasty on Tuesday likely require amputation Fall Risk Details Current Medications: Current Medications Generic Name Dose Route Start Last Admin Trade Name Freq PRN Reason Stop Dose Admin Acetaminophen 650 mg 07/24/20 19:18 Acetaminophen 325 Mg Tablet PO Q6H PRN Pain, Mild (Pain Scale 1-3) Amlodipine Besylate 10 mg 07/25/20 09:00 07/25/20 08:46 Amlodipine Besylate 10 Mg Tablet PO 10 mg DAILY PR[facility] Administration Protocol Aspirin 81 mg 07/25/20 09:00 07/25/20 08:46 Aspirin Enteric Coated 81 Mg Tablet. PO 81 mg DAILY [facility] Administration Enoxaparin Sodium 40 mg 07/24/20 19:18 07/24/20 21:46 Enoxaparin Sodium 40 Mg/0.4 Ml Syringe SUBCUT 40 mg Q24H [facility] Administration Piperacillin Sod/Tazobactam 50 mls @ 100 mls/hr 07/24/20 20:00 07/25/20 14:17 Sod 3.375 gm/ Sodium Chloride IV 100 mls/hr Q6H [facility] Administration Vancomycin HCl 1,250 mg/ 250 mls @ 166.667 mls/hr 07/25/20 13:00 07/25/20 14:16 Sodium Chloride IV Infused Q24H [facility] Infusion Sodium Chloride 1,000 mls @ 100 mls/hr 07/28/20 09:15 Ns IVCONT .Q10H [facility] Insulin Human Lispro 0 unit 07/24/20 21:00 07/25/20 11:22 Insulin Lispro 100 Unit/Ml 3 Ml Vial SUBCUT Not Given QIDACHS [facility] Protocol Nicotine 14 mg 07/25/20 11:00 07/25/20 12:42 Nicotine 14 Mg Patch.Td24 TRANSDERMA 14 mg DAILY [facility] Administration Non-Formulary Medication 1 drop 07/25/20 09:00 Timolol EYE-LEFT DAILY [facility] Ondansetron HCl 4 mg 07/24/20 19:18 Ondansetron Hcl 4 Mg/2 Ml Vial IVPUSH Q8H PRN Nausea and Vomiting Pharmacy Consult 1 each 07/24/20 13:00 Consult Rx Vancomycin Dosing MISCELLANE DAILY PRN Consult order Pharmacy Consult 1 each 07/24/20 19:18 Consult Rx Vancomycin Dosing MISCELLANE DAILY PRN Consult order Sodium Chloride 3 ml 07/24/20 19:18 07/25/20 08:45 0.9 % Sodium Chloride Flush 3 Ml Syringe IVFLUSH Not Given QSHIFT [facility] Vitamin D 25 mcg 07/25/20 09:00 07/25/20 08:46 Cholecalciferol (Vitamin D3) 25 Mcg Tablet PO 25 mcg DAILY [facility] Administration Zolpidem Tartrate 5 mg 07/24/20 19:18 Zolpidem Tartrate 5 Mg Tablet PO BEDTIME PRN Insomnia Time Spent With Patient Time: Total time spent is greater than 50% in coordination of care (as documented) at patient's floor/unit and/or counseling patient: Time with patient: 25 - 35 minutes
[2020-07-25 15:19] VITALS: BP 109/55; PULSE 79; RESP 19; TEMP 36.8; O2SAT 95
--- NOTE | 2020-07-25 16:07 | W.PM.IDCN ---
History of Present Illness Data of Consult Service Date: 07/25/20 Requesting physician: Abdirizak Walter Primary Care Provider: MD FRANSISCA Cutler Reason for consult: right foot ulcer He presents to hospital with right foot malodor and duskiness at site of ulcer. He reports symptoms for a month. He has not seen Rod Filler or any other providers. He has been seen by Dr Oscar and right SFA disease seen. He also has neuropathy Review of Systems Review of Systems: Yes all other systems are reviewed and are negative [facility] Past Medical History Medical History Abscess of right foot Anxiety and depression Asthma Avascular necrosis of bone of hip Coronary artery disease Diabetic foot ulcer Diabetic nephropathy Diabetic neuropathy Diverticular disease Hypercholesterolemia Hypertension Osteomyelitis of toe Thrombocytopenia Tobacco abuse Tubular adenoma of colon Type 2 diabetes mellitus with hyperglycemia Vitamin D deficiency Family History Family History Father Diabetes Hypertension CVD (cardiovascular disease) Stroke Mother CVD (cardiovascular disease) Hypertension Cancer Sister No problems noted. Family history: reviewed and not pertinent Surgical History Surgical History Amputation finger History of cataract surgery History of surgery Social History Social History Household Members: Family Housing: House Alcohol intake: never Smoking Status: Light tobacco smoker Tobacco Type: Cigarette Cigarettes Per Day: 7 Advance Directives Date on File: 07/24/20 service: No Current occupational status: retired Meds Allergies Allergy/AdvReac Type Severity Reaction Status Date / Time No Known Allergies Allergy Mild Verified 04/14/20 13:17 Active Medications: Current Medications Generic Name Dose Route Start Last Admin Trade Name Freq PRN Reason Stop Dose Admin Acetaminophen 650 mg 07/24/20 19:18 Acetaminophen 325 Mg Tablet PO Q6H PRN Pain, Mild (Pain Scale 1-3) Amlodipine Besylate 10 mg 07/25/20 09:00 07/25/20 08:46 Amlodipine Besylate 10 Mg Tablet PO 10 mg DAILY [facility] Administration Protocol Aspirin 81 mg 07/25/20 09:00 07/25/20 08:46 Aspirin Enteric Coated 81 Mg Tablet.Dr PO 81 mg DAILY [facility] Administration Enoxaparin Sodium 40 mg 07/24/20 19:18 07/24/20 21:46 Enoxaparin Sodium 40 Mg/0.4 Ml Syringe SUBCUT 40 mg Q24H [facility] Administration Piperacillin Sod/Tazobactam 50 mls @ 100 mls/hr 07/24/20 20:00 07/25/20 14:52 Sod 3.375 gm/ Sodium Chloride IV Infused Q6H [facility] Infusion Vancomycin HCl 1,250 mg/ 250 mls @ 166.667 mls/hr 07/25/20 13:00 07/25/20 14:16 Sodium Chloride IV Infused Q24H [facility] Infusion Sodium Chloride 1,000 mls @ 100 mls/hr 07/28/20 09:15 Ns IVCONT .Q10H [facility] Insulin Human Lispro 0 unit 07/24/20 21:00 07/25/20 11:22 Insulin Lispro 100 Unit/Ml 3 Ml Vial SUBCUT Not Given QIDACHS [facility] Protocol Nicotine 14 mg 07/25/20 11:00 07/25/20 12:42 Nicotine 14 Mg Patch.Td24 TRANSDERMA 14 mg DAILY [facility] Administration Non-Formulary Medication 1 drop 07/25/20 09:00 Timolol EYE-LEFT DAILY [facility] Ondansetron HCl 4 mg 07/24/20 19:18 Ondansetron Hcl 4 Mg/2 Ml Vial IVPUSH Q8H PRN Nausea and Vomiting Pharmacy Consult 1 each 07/24/20 13:00 Consult Rx Vancomycin Dosing MISCELLANE DAILY PRN Consult order Pharmacy Consult 1 each 07/24/20 19:18 Consult Rx Vancomycin Dosing MISCELLANE DAILY PRN Consult order Sodium Chloride 3 ml 07/24/20 19:18 07/25/20 08:45 0.9 % Sodium Chloride Flush 3 Ml Syringe IVFLUSH Not Given QSHIFT [facility] Vitamin D 25 mcg 07/25/20 09:00 07/25/20 08:46 Cholecalciferol (Vitamin D3) 25 Mcg Tablet PO 25 mcg DAILY [facility] Administration Zolpidem Tartrate 5 mg 07/24/20 19:18 Zolpidem Tartrate 5 Mg Tablet PO BEDTIME PRN Insomnia Home Medications Medication Instructions Recorded Confirmed Last Taken Type aspirin 81 mg tablet,delayed 81 mg PO DAILY 04/14/20 07/24/20 07/23/20 History release atorvastatin 10 mg tablet 10 mg PO BEDTIME 04/14/20 07/24/20 07/23/20 History cholecalciferol (vitamin D3) 25 25 mcg PO DAILY 04/14/20 07/24/20 07/23/20 History mcg (1,000 unit) capsule metformin 500 mg tablet 500 mg PO BID 04/14/20 07/24/20 07/23/20 History timolol 0.25 % eye drops 1 drp OPHTHALMIC-LEFT DAILY 04/14/20 07/24/20 07/23/20 History hydrochlorothiazide 12.5 mg PO DAILY 07/24/20 07/24/20 07/23/20 History Physical Exam Vital Signs: Vital Signs: Last Vital Signs Temp 98.2 F 07/25/20 15:19 Pulse 79 07/25/20 15:19 Resp 19 07/25/20 15:19 BP 109/55 L 07/25/20 15:19 Pulse Ox 95 07/25/20 15:19 Body Mass Index 25.2 Const: General: cooperative Orientation/consciousness: patient oriented x3 HENMT: Head: Yes normal to inspection Mouth: Normal oral and palatal mucosa present Resp: Effort & Inspection: normal respiratory effort Cardio: Rate: regular rate Rhythm: regular rhythm GI: Palpation (GI): Soft to palpation and nontender Skin: General skin exam: no rashes or lesions noted Neuro: General: patient oriented x3 Extrem: Other: right great toe ulcer plantar 2 x 3 cm,duskiness,diminished pulses Results Labs CBC & Chem 7: 07/25/20 05:45 07/25/20 05:45 Labs: Short CBC 07/25/20 Range/Units 05:45 WBC 14.2 H (4.8-10.8) X10*3/uL Hgb 9.9 L (14.0-18.0) g/dl Hct 29.4 L (42-52) % Plt Count 242 (160-400) X10*3/uL BMP 07/25/20 05:45 Sodium 131 L Potassium 4.0 Chloride 98 Carbon Dioxide 25 BUN 14 Creatinine 0.76 Calcium 7.5 L Urine 07/24/20 Range/Units 19:25 Urine Color YELLOW Urine Appearance HAZY Urine pH 6.0 (5.0-8.0) Ur Specific Peck 1.010 (1.005-1.025) Urine Protein NEG (NEG-TRACE) MG/DL Urine Glucose (UA) NEG (NEG) MG/DL Microbiology Microbiology Results: Microbiology 07/24/20 11:44 Blood - Venous Blood Culture - Preliminary No growth after 24 hours. 07/24/20 11:18 Blood - Venous Blood Culture - Preliminary No growth after 24 hours. Assessment and Plan (1) Abscess of right foot: Problem details: There is concern over osteomyelitis Gram negative and gram positive Abscess and diminished vascular supply concern Status: Acute Would continue Vancomycin and Zosyn Await surgical evaluation,cultures 6 weeks IV Ertapenem likely (2) PAD (peripheral artery disease): Status: Acute
[2020-07-25 16:15] LABS: Glucose, Whole Blood 156 mg/dL (60-115)
[2020-07-25] MEDS: 0.9 % Sodium Chloride Flush 3 ML SYRINGE IVFLUSH (17:01)
[2020-07-25] MEDS: Insulin Lispro 100 UNIT/ML 3 ML VIAL SUBCUT (17:15)
[2020-07-25 18:26] VITALS: BP 122/58; PULSE 85; RESP 19; TEMP 36.7; O2SAT 95
[2020-07-25] MEDS: Enoxaparin Sodium 40 MG/0.4 ML SYRINGE SUBCUT (20:13)
[2020-07-25 20:24] LABS: Glucose, Whole Blood 93 mg/dL (60-115)
[2020-07-25 23:35] VITALS: BP 145/60; PULSE 90; RESP 20; TEMP 36.8; O2SAT 95
[2020-07-26] MEDS: 0.9 % Sodium Chloride Flush 3 ML SYRINGE IVFLUSH ×4 (01:24→20:29)
[2020-07-26] MEDS: Piperacillin Sodium/Tazobactam 3.375 GM in 0.9 % Sodium Chloride 50 ML IV ×3 (02:09→18:29)
[2020-07-26 03:20] VITALS: BP 135/50; PULSE 90; RESP 20; TEMP 36.4; O2SAT 95
[2020-07-26 07:11] LABS: Hematocrit 28.4 % (42-52); Hemoglobin 9.6 g/dl (14.0-18.0); Mean Corpuscular HGB Conc 33.8 g/dl (31.0-36.0); Mean Corpuscular Hemoglobin 31.6 pg (27.0-33.0); Mean Corpuscular Volume 93.4 fL (80-98); Mean Platelet Volume 9.9 fL (9.4-12.4); Platelet Count 239 X10*3/uL (160-400); Red Blood Count 3.04 X10*6/uL (4.60-5.80); Red Cell Distribution Width 13.3 % (11.0-16.0); White Blood Count 13.6 X10*3/uL (4.8-10.8)
[2020-07-26 07:37] LABS: Glucose, Whole Blood 89 mg/dL (60-115)
[2020-07-26 07:38] VITALS: BP 131/50; PULSE 88; RESP 20; TEMP 37.7; O2SAT 97
[2020-07-26 07:51] LABS: Alanine Aminotransferase 58 U/L (0-40); Albumin Level 2.3 g/dL (3.5-5.0); Alkaline Phosphatase 70 U/L (39-117); Anion Gap 15 (12-20); Aspartate Amino Transferase 70 U/L (5-37); Bilirubin Direct 0.9 mg/dL (0.0-0.5); Bilirubin Total 1.2 mg/dL (0.0-1.0); Blood Urea Nitrogen 14 mg/dL (9-16); Calcium 7.5 mg/dL (8.4-10.2); Carbon Dioxide 21 mmol/L (22-29); Chloride 100 mmol/L (96-108); Creatinine Clr Calc Pharmacy 81.4; Estimated Glomerular Filt Rate > 60; Glucose Random 89 mg/dL (60-115); Potassium 3.6 mmol/L (3.3-5.1); Sodium 132 mmol/L (135-145); Total Protein 4.8 g/dL (6.5-8.0)
[2020-07-26] MEDS: Cholecalciferol (Vitamin D3) 25 MCG TABLET PO (10:17)
[2020-07-26] MEDS: Aspirin Enteric Coated 81 MG TABLET.DR PO (10:17)
--- NOTE | 2020-07-26 11:04 | P.CONCA_ITS ---
History of Present Illness History of Present Illness Date of Service: 07/26/20 Chief complaint: , PVD RIGHT Narrative: This is a cardiology consultation regarding atrial fibrillation. Patient actually came for foot pain. He has been found to have diabetic foot infection and admitted for the same. From the cardiac standpoint he had episodes of atrial fibrillation in the emergency room twice and converted back to sinus rhythm. Patient himself does not have any sensation of this. He denies any palpitations. No history of any angina or shortness of breath or any other cardiac complaints. He also denies any coronary disease or myocardial infarction or cardiomyopathy in the past. Currently, he states that he feels well. Review of Systems Review of Systems: Yes all other systems are reviewed and are negative Cardiovascular: Cardiovascular: Reports as per HPI, Reports no additional cardiovascular complaints, Denies acrocyanosis, Denies cool extremities, Denies painful fingertips, Denies chest pain, Denies chest pain at rest, Denies diaphoresis, Denies syncope, Denies irregular heart rhythm, Denies claudication, Denies leg edema, Denies lightheadedness, Denies palpitations and Denies dyspnea Respiratory: Respiratory: Denies dyspnea Neurologic: Denies syncope Endocrine: Endocrine: Denies palpitations PMFSH Past Medical History Medical History Abscess of right foot Anxiety and depression Asthma Avascular necrosis of bone of hip Coronary artery disease Diabetic foot ulcer Diabetic nephropathy Diabetic neuropathy Diverticular disease Hypercholesterolemia Hypertension Osteomyelitis of toe Thrombocytopenia Tobacco abuse Tubular adenoma of colon Type 2 diabetes mellitus with hyperglycemia Vitamin D deficiency Family History Family History Father Diabetes Hypertension CVD (cardiovascular disease) Stroke Mother CVD (cardiovascular disease) Hypertension Cancer Sister No problems noted. Family history: reviewed and not pertinent Surgical History Surgical History Amputation finger History of cataract surgery History of surgery Social History Social History Household Members: Family Housing: House Alcohol intake: never Smoking Status: Light tobacco smoker Tobacco Type: Cigarette Cigarettes Per Day: 7 Advance Directives Date on File: 07/24/20 service: No Current occupational status: retired Meds Allergies Allergy/AdvReac Type Severity Reaction Status Date / Time No Known Allergies Allergy Mild Verified 04/14/20 13:17 Active Medications: Current Medications Generic Name Dose Route Start Last Admin Trade Name Freq PRN Reason Stop Dose Admin Acetaminophen 650 mg 07/24/20 19:18 Acetaminophen 325 Mg Tablet PO Q6H PRN Pain, Mild (Pain Scale 1-3) Amlodipine Besylate 10 mg 07/25/20 09:00 07/25/20 08:46 Amlodipine Besylate 10 Mg Tablet PO 10 mg DAILY PRAMOD Administration Protocol Aspirin 81 mg 07/25/20 09:00 07/26/20 10:17 Aspirin Enteric Coated 81 Mg Tablet.Dr PO 81 mg DAILY PRAMOD Administration Enoxaparin Sodium 40 mg 07/24/20 19:18 07/25/20 20:13 Enoxaparin Sodium 40 Mg/0.4 Ml Syringe SUBCUT 40 mg Q24H PRAMOD Administration Piperacillin Sod/Tazobactam 50 mls @ 100 mls/hr 07/24/20 20:00 07/26/20 02:53 Sod 3.375 gm/ Sodium Chloride IV Infused Q6H PRAMOD Infusion Vancomycin HCl 1,250 mg/ 250 mls @ 166.667 mls/hr 07/25/20 13:00 07/25/20 14:16 Sodium Chloride IV Infused Q24H PRAMOD Infusion Sodium Chloride 1,000 mls @ 100 mls/hr 07/28/20 09:15 Ns IVCONT .Q10H [facility] Insulin Human Lispro 0 unit 07/24/20 21:00 07/26/20 10:18 Insulin Lispro 100 Unit/Ml 3 Ml Vial SUBCUT Not Given QIDACHS [facility] Protocol Nicotine 14 mg 07/25/20 11:00 07/26/20 10:22 Nicotine 14 Mg Patch.Td24 TRANSDERMA Not Given DAILY [facility] Non-Formulary Medication 1 drop 07/25/20 09:00 Timolol EYE-LEFT DAILY [facility] Ondansetron HCl 4 mg 07/24/20 19:18 Ondansetron Hcl 4 Mg/2 Ml Vial IVPUSH Q8H PRN Nausea and Vomiting Pharmacy Consult 1 each 07/24/20 13:00 Consult Rx Vancomycin Dosing MISCELLANE DAILY PRN Consult order Pharmacy Consult 1 each 07/24/20 19:18 Consult Rx Vancomycin Dosing MISCELLANE DAILY PRN Consult order Sodium Chloride 3 ml 07/24/20 19:18 07/26/20 10:17 0.9 % Sodium Chloride Flush 3 Ml Syringe IVFLUSH 3 ml QSHIFT [facility] Administration Vitamin D 25 mcg 07/25/20 09:00 07/26/20 10:17 Cholecalciferol (Vitamin D3) 25 Mcg Tablet PO 25 mcg DAILY PRAMOD Administration Zolpidem Tartrate 5 mg 07/24/20 19:18 Zolpidem Tartrate 5 Mg Tablet PO BEDTIME PRN Insomnia Home Medications Medication Instructions Recorded Confirmed Last Taken Type aspirin 81 mg tablet,delayed 81 mg PO DAILY 04/14/20 07/24/20 07/23/20 History release atorvastatin 10 mg tablet 10 mg PO BEDTIME 04/14/20 07/24/20 07/23/20 History cholecalciferol (vitamin D3) 25 25 mcg PO DAILY 04/14/20 07/24/20 07/23/20 History mcg (1,000 unit) capsule metformin 500 mg tablet 500 mg PO BID 04/14/20 07/24/20 07/23/20 History timolol 0.25 % eye drops 1 drp OPHTHALMIC-LEFT DAILY 04/14/20 07/24/20 07/23/20 History hydrochlorothiazide 12.5 mg PO DAILY 07/24/20 07/24/20 07/23/20 History Physical Exam Vital Signs: Vital Signs: Last Vital Signs Temp 99.8 F 07/26/20 07:38 Pulse 88 07/26/20 07:38 Resp 20 07/26/20 07:38 BP 131/50 L 07/26/20 07:38 Pulse Ox 97 07/26/20 07:38 Body Mass Index 25.2 Const: General: cooperative, comfortable and no acute distress Orientation/consciousness: patient oriented x3 HENMT: Other: Unremarkable Neck: Neck: Yes normal visual inspection Chest: Chest palpation & inspection: normal inspection of the chest Resp: Auscultation: clear to auscultation bilaterally, no crackles and no wheezes Cardio: Jugular venous distension: no JVD Palpation: normal PMI Heart sounds: S1 normal heart sound present, S2 normal heart sound present, no gallops, no murmurs and no rubs GI: Palpation (GI): Soft to palpation Back/Spine/Pelvis: Other: unremarkable Skin: General skin exam: no rashes or lesions noted Neuro: General: patient oriented x3 Extrem: Other: Right leg with redness and there is dressing on the foot. Psych: Mental Status: mental status grossly normal Results Labs and Meds Result diagrams: 07/26/20 06:31 07/26/20 06:31 Lab results: Laboratory Results - last 24 hr 07/25/20 07/25/20 07/25/20 11:15 15:21 20:17 WBC RBC Hgb Hct MCV MCH MCHC RDW Plt Count MPV Absolute Nucleated RBC Nucleated RBC % (auto) Sodium Potassium Chloride Carbon Dioxide Anion Gap BUN Creatinine Estim Creat Clear Calc Estimated GFR POC Glucose 91 156 H 93 Random Glucose Calcium Total Bilirubin Direct Bilirubin AST ALT Alkaline Phosphatase Total Protein Albumin 07/26/20 07/26/20 07/26/20 06:31 06:31 07:30 WBC 13.6 H RBC 3.04 L Hgb 9.6 L Hct 28.4 L MCV 93.4 MCH 31.6 MCHC 33.8 RDW 13.3 Plt Count 239 MPV 9.9 Absolute Nucleated RBC 0.000 Nucleated RBC % (auto) 0.0 Sodium 132 L Potassium 3.6 Chloride 100 Carbon Dioxide 21 L Anion Gap 15 BUN 14 Creatinine 0.71 Estim Creat Clear Calc 81.4 Estimated GFR > 60 POC Glucose 89 Random Glucose 89 Calcium 7.5 L Total Bilirubin 1.2 H Direct Bilirubin 0.9 H AST 70 H ALT 58 H Alkaline Phosphatase 70 Total Protein 4.8 L Albumin 2.3 L ECG Attestation: I personally reviewed and interpreted this ECG as follows: Interpretation: EKG in the ER with atrial fibrillation at 135/Min. Prior to that, he was in sinus rhythm. Currently telemetry shows sinus rhythm. Imaging Radiologist's impression: Impressions Foot MRI 07/24/20 16:33 IMPRESSION: Large ulceration at the plantar aspect of the 1st MTP joint with underlying osteomyelitis of the lateral hallux sesamoid, osteomyelitis and probable osteonecrosis at the great toe proximal phalanx, and a 4.6 cm gas-containing abscess at the 1st interspace extending into the dorsal soft tissues. Septic arthritis at the 1st MTP joint is possible, though not definitively present based on these images. 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 There are linear calcifications on CT. There was a complex cystic abnormality on ultrasound in 2012. Overall I suspect there has been some interval increase in size. The lack of large solid component developing since 2012 is reassuring. Consider urologic consultation for surveillance of complex cystic mass with slow enlargement. No measurable solid lesion. Assessment and Plan (1) Atrial fibrillation with rapid ventricular response: Status: Acute (2) PAD (peripheral artery disease): Status: Acute With regard to atrial fibrillation episodes, we can start him on amiodarone to keep him in sinus rhythm. Start 400 mg b.i.d. and obtain EKG tomorrow. Once these surgical procedures are completed, may start Eliquis. Otherwise echocardiogram next week when able.
[2020-07-26 11:26] LABS: Glucose, Whole Blood 100 mg/dL (60-115)
[2020-07-26 11:34] VITALS: BP 138/62; PULSE 84; RESP 20; TEMP 36.7; O2SAT 96
--- NOTE | 2020-07-26 11:39 | P.PNGS_ITS ---
Subjective Subjective Date of Service: 07/26/20 <BRIA Dumont - Last Filed: 07/26/20 11:45> 07/26/20 <Hayder Washington MD - Last Filed: 07/26/20 14:51> Interval history: He states he has relatively mild Right foot discomfort. He has no new complaints. <BRIA Dumont - Last Filed: 07/26/20 11:45> Physical Exam Vital Signs: Vital Signs: Last Vital Signs Temp 98.1 F 07/26/20 11:34 Pulse 84 07/26/20 11:34 Resp 20 07/26/20 11:34 BP 138/62 07/26/20 11:34 Pulse Ox 96 07/26/20 11:34 Body Mass Index 25.2 <BRIA Dumont - Last Filed: 07/26/20 11:45> Const: General: no acute distress and alert <BRIA Dumont - Last Filed: 07/26/20 11:45> Resp: Effort & Inspection: normal respiratory effort and able to speak in c omplete sentences <BRIA Dumont - Last Filed: 07/26/20 11:45> Cardio: Jugular venous distension: no JVD <BRIA Dumont - Last Filed: 07/26/20 11:45> Rate: regular rate <BRIA Dumont - Last Filed: 07/26/20 11:45> Skin: Other: Dressing c/d/i. Edema of ankle <BRIA Dumont - Last Filed: 07/26/20 11:45> General skin exam: erythema (Right foot to lower calf. ) <BRIA Dumont - Last Filed: 07/26/20 11:45> Extrem: Other: Pedal and posterior tibialis pulses not palpable <BRIA Dumont - Last Filed: 07/26/20 11:45> General: Yes no calf tenderness <BRIA Dumont - Last Filed: 07/26/20 11:45> Progress Note: A&P Assessment and plan (1) Abscess of right foot: Problem details: S/P I+D of abscess, removal of eschar yesterday. Nurse states that the bandage was changed this morning was heavily soiled. <BRIA Dumont - Last Filed: 07/26/20 11:45> Status: Acute <BRIA Dumont - Last Filed: 07/26/20 11:45> Assessment and Plan: Continue IV ABX Advised leg eleation above heart throughout the day Wound care Vascular to see patient on Tuesday. Will likely discuss amputation. <BRIA Dumont - Last Filed: 07/26/20 11:45> . General Surgery Attending - Noam Washington M.D. Patient was evaluated and examined at the bedside with Mr. Mukul Allen PA-C. I confirm above findings and plan as documented. Pt is stable. Right foot wound dressing changed this morning. No surgical intervention today. <Hayder Washington MD - Last Filed: 07/26/20 14:51> Fall Risk Details Current Medications: Current Medications Generic Name Dose Route Start Last Admin Trade Name Freq PRN Reason Stop Dose Admin Acetaminophen 650 mg 07/24/20 19:18 Acetaminophen 325 Mg Tablet PO Q6H PRN Pain, Mild (Pain Scale 1-3) Amlodipine Besylate 10 mg 07/25/20 09:00 07/25/20 08:46 Amlodipine Besylate 10 Mg Tablet PO 10 mg DAILY PRAMOD Administration Protocol Aspirin 81 mg 07/25/20 09:00 07/26/20 10:17 Aspirin Enteric Coated 81 Mg Tablet. PO 81 mg DAILY RPAMOD Administration Enoxaparin Sodium 40 mg 07/24/20 19:18 07/25/20 20:13 Enoxaparin Sodium 40 Mg/0.4 Ml Syringe SUBCUT 40 mg Q24H PRAMOD Administration Piperacillin Sod/Tazobactam 50 mls @ 100 mls/hr 07/24/20 20:00 07/26/20 02:53 Sod 3.375 gm/ Sodium Chloride IV Infused Q6H PRAMOD Infusion Vancomycin HCl 1,250 mg/ 250 mls @ 166.667 mls/hr 07/25/20 13:00 07/25/20 14:16 Sodium Chloride IV Infused Q24H PRAMOD Infusion Sodium Chloride 1,000 mls @ 100 mls/hr 07/28/20 09:15 Ns IVCONT .Q10H PR[facility] Insulin Human Lispro 0 unit 07/24/20 21:00 07/26/20 10:18 Insulin Lispro 100 Unit/Ml 3 Ml Vial SUBCUT Not Given QIDACHS PRAMOD Protocol Nicotine 14 mg 07/25/20 11:00 07/26/20 10:22 Nicotine 14 Mg Patch.Td24 TRANSDERMA Not Given DAILY [facility] Non-Formulary Medication 1 drop 07/25/20 09:00 Timolol EYE-LEFT DAILY [facility] Ondansetron HCl 4 mg 07/24/20 19:18 Ondansetron Hcl 4 Mg/2 Ml Vial IVPUSH Q8H PRN Nausea and Vomiting Pharmacy Consult 1 each 07/24/20 13:00 Consult Rx Vancomycin Dosing MISCELLANE DAILY PRN Consult order Pharmacy Consult 1 each 07/24/20 19:18 Consult Rx Vancomycin Dosing MISCELLANE DAILY PRN Consult order Sodium Chloride 3 ml 07/24/20 19:18 07/26/20 10:17 0.9 % Sodium Chloride Flush 3 Ml Syringe IVFLUSH 3 ml QSHIFT PRAMOD Administration Vitamin D 25 mcg 07/25/20 09:00 07/26/20 10:17 Cholecalciferol (Vitamin D3) 25 Mcg Tablet PO 25 mcg DAILY PRAMOD Administration Zolpidem Tartrate 5 mg 07/24/20 19:18 Zolpidem Tartrate 5 Mg Tablet PO BEDTIME PRN Insomnia <BRIA Dumont - Last Filed: 07/26/20 11:45> Time Spent With Patient Time: Total time spent is greater than 50% in coordination of care (as documented) at patient's floor/unit and/or counseling patient: <BRIA Dumont - Last Filed: 07/26/20 11:45> Time with patient: less than 15 minutes <Hayder Washington MD - Last Filed: 07/26/20 14:51>
--- NOTE | 2020-07-26 12:24 | P.PNIM_ITS ---
Subjective Subjective Date of Service: 07/26/20 <BRIA Millan - Last Filed: 07/26/20 12:57> 07/26/20 <Zuri Franklin MD - Last Filed: 07/26/20 15:21> Interval History: Follow-up diabetic foot wound Who complaints this morning. No overnight events Denies fever, chills. Eating okay. Voiding without difficulty <BRIA Millan - Last Filed: 07/26/20 12:57> Review of Systems Review of Systems: Yes all other systems are reviewed and are negative <BRIA Millan - Last Filed: 07/26/20 12:57> Constitutional Constitutional: Denies chills and Denies fever(s) <BRIA Millan Last Filed: 07/26/20 12:57> Cardiovascular Cardiovascular: Denies chest pain <BRIA Millan - Last Filed: 07/26/20 12:57> Respiratory Respiratory: Denies cough <BRIA Millan - Last Filed: 07/26/20 12:57> Gastrointestinal Gastrointestinal: Denies abdominal pain <BRIA Millan - Last Filed: 07/26/20 12:57> Physical Exam Vital Signs: Vital Signs: Last Vital Signs Temp 98.1 F 07/26/20 11:34 Pulse 84 07/26/20 11:34 Resp 20 07/26/20 11:34 BP 138/62 07/26/20 11:34 Pulse Ox 96 07/26/20 11:34 Body Mass Index 25.2 <BRIA Millan - Last Filed: 07/26/20 12:57> Const: Nutritional Appearance: well nourished <BRIA Millan - Last Filed: 07/26/20 12:57> Orientation/consciousness: patient oriented x3 <BRIA Millan - Last Filed: 07/26/20 12:57> HENMT: Head: Yes normocephalic and Yes atraumatic <BRIA Millan Last Filed: 07/26/20 12:57> Eyes: Sclerae: sclerae normal <BRIA Millan Last Filed: 07/26/20 12:57> Chest: Chest palpation & inspection: normal inspection of the chest <BRIA Millan Last Filed: 07/26/20 12:57> Resp: Effort & Inspection: normal respiratory effort and no respiratory distress <BRIA Millan Last Filed: 07/26/20 12:57> Cardio: Rate: regular rate <BRIA Millan Last Filed: 07/26/20 12:57> Rhythm: regular rhythm <BRIA Millan Last Filed: 07/26/20 12:57> GI: Palpation (GI): Soft to palpation and nontender <BRIA Millan Last Filed: 07/26/20 12:57> Skin: Other: Foot wrapped in clean, dry, intact bandage; malodorous. Erythema and edema extends above dressing to mid [place], similar to yesterday <BRIA Millan Last Filed: 07/26/20 12:57> Neuro: General: patient oriented x3 <BRIA Millan Last Filed: 07/26/20 12:57> Cranial nerves: Yes CN's II-XII intact bilaterally and Yes Bilaterally intact EOM present <BRIA Millan Last Filed: 07/26/20 12:57> Objective Data Current Medications Generic Name Dose Route Start Last Admin Trade Name Freq PRN Reason Stop Dose Admin Acetaminophen 650 mg 07/24/20 19:18 Acetaminophen 325 Mg Tablet PO Q6H PRN Pain, Mild (Pain Scale 1-3) Amlodipine Besylate 10 mg 07/25/20 09:00 07/25/20 08:46 Amlodipine Besylate 10 Mg Tablet PO 10 mg DAILY PRAMOD Administration Protocol Aspirin 81 mg 07/25/20 09:00 07/26/20 10:17 Aspirin Enteric Coated 81 Mg Tablet.Dr PO 81 mg DAILY PRAMOD Administration Enoxaparin Sodium 40 mg 07/24/20 19:18 07/25/20 20:13 Enoxaparin Sodium 40 Mg/0.4 Ml Syringe SUBCUT 40 mg Q24H PRAMOD Administration Vancomycin HCl 1,250 mg/ 250 mls @ 166.667 mls/hr 07/25/20 13:00 07/25/20 14:16 Sodium Chloride IV Infused Q24H [facility] Infusion Sodium Chloride 1,000 mls @ 100 mls/hr 07/28/20 09:15 Ns IVCONT .Q10H PRAMOD Piperacillin Sod/Tazobactam 50 mls @ 100 mls/hr 07/26/20 12:00 07/26/20 12:01 Sod 3.375 gm/ Sodium Chloride IV 100 mls/hr Q6H PRAMOD Administration Insulin Human Lispro 0 unit 07/24/20 21:00 07/26/20 12:03 Insulin Lispro 100 Unit/Ml 3 Ml Vial SUBCUT Not Given QIDACHS [facility] Protocol Nicotine 14 mg 07/25/20 11:00 07/26/20 10:22 Nicotine 14 Mg Patch.Td24 TRANSDERMA Not Given DAILY [facility] Non-Formulary Medication 1 drop 07/25/20 09:00 Timolol EYE-LEFT DAILY [facility] Ondansetron HCl 4 mg 07/24/20 19:18 Ondansetron Hcl 4 Mg/2 Ml Vial IVPUSH Q8H PRN Nausea and Vomiting Pharmacy Consult 1 each 07/24/20 13:00 Consult Rx Vancomycin Dosing MISCELLANE DAILY PRN Consult order Pharmacy Consult 1 each 07/24/20 19:18 Consult Rx Vancomycin Dosing MISCELLANE DAILY PRN Consult order Sodium Chloride 3 ml 07/24/20 19:18 07/26/20 10:17 0.9 % Sodium Chloride Flush 3 Ml Syringe IVFLUSH 3 ml QSHIFT [facility] Administration Vitamin D 25 mcg 07/25/20 09:00 07/26/20 10:17 Cholecalciferol (Vitamin D3) 25 Mcg Tablet PO 25 mcg DAILY [facility] Administration Zolpidem Tartrate 5 mg 07/24/20 19:18 Zolpidem Tartrate 5 Mg Tablet PO BEDTIME PRN Insomnia <BRIA Millan - Last Filed: 07/26/20 12:57> Labs CBC & Chem 7: : 07/26/20 06:31 07/26/20 06:31 <BRIA Millan - Last Filed: 07/26/20 12:57> Microbiology Microbiology Results: Microbiology 07/25/20 16:08 Foot - Abscess Gram Stain - Final 07/24/20 11:44 Blood - Venous Blood Culture - Preliminary No growth after 24 hours. 07/24/20 11:18 Blood - Venous Blood Culture - Preliminary No growth after 24 hours. <BRIA Millan - Last Filed: 07/26/20 12:57> Assessment and Plan (1) Abscess of right foot: Problem details: S/P I+D of abscess, removal of eschar yesterday. Nurse states that the bandage was changed this morning was heavily soiled. <BRIA Millan - Last Filed: 07/26/20 12:57> Status: Acute <BRIA Millan - Last Filed: 07/26/20 12:57> (2) Atrial fibrillation with rapid ventricular response: Status: Acute <BRIA Millan - Last Filed: 07/26/20 12:57> (3) Type 2 diabetes mellitus with diabetic foot infection: Status: Acute <BRIA Millan - Last Filed: 07/26/20 12:57> (4) PAD (peripheral artery disease): Status: Acute <BRIA Millan - Last Filed: 07/26/20 12:57> (5) Osteomyelitis of ankle or foot, right, acute: Status: Acute <BRIA Millan - Last Filed: 07/26/20 12:57> Assessment and Plan: This is a 75-year-old male with a past medical history of diabetes who presents to the hospital with complaints of right lower extremity pain of several days duration. His presentation and workup is consistent with diabetic foot infection, sepsis found to have osteomyelitis Sepsis present on admission Due to diabetic foot infection/osteomyelitis Diabetic foot infection/osteomyelitis, right foot MRI showing osteomyelitis/osteonecrosis as well as abscess Seen by surgery s/p bedside debridement 07/24; I&D of abscess (07/25) Vascular studies showing PVD, seen by vascular surgery, plan for angiogram/angioplasty Tuesday (07/28) Will likely need amputation BCx negative to date Wound culture polymicrobial ID following -continue IV vancomycin, Zosyn D#3 New onset A. Fib with variable rate converted back and forth twice while in the ED. Currently in sinus -Seen by Cardiology, recommended to start amiodarone 400 mg b.i.d. -repeat EKG in a.m. -elevated chads score, recommend Eliquis for anticoagulation following surgical intervention -echocardiogram pending Normocytic Anemia H/H stable -Follow CBC Hyponatremia. Improving mild, likely hypovolemic. Na 132 today -Continue IVF HTN BP soft -hold Norvasc, HCTZ, lisinopril -follow bp closely HLD statin on hold due to mild elevated in liver function DM POC controlled hold metformin -SSI, POCs, ADA diet Fluid collection noted in the abdomen ultrasound results: corresponds to a multi cystic abnormality in the right [place]. There are linear calcifications on CT. There was a complex cystic abnormality on ultrasound in 2011.Overall I suspect there has been some interval increase in size. The lack of large solid component developing since 2012 is reassuring. -outpatient urologic follow up Tobacco dependence -NRT DVT prophylaxis-Lovenox Attending-Dr. Franklin <BRIA Millan - Last Filed: 07/26/20 12:57>
[2020-07-26] MEDS: vancomycin HCL 1,250 MG in 0.9 % Sodium Chloride 250 ML 166.67 MG IV (14:28)
[2020-07-26 15:37] VITALS: BP 125/62; PULSE 86; RESP 18; TEMP 36.9; O2SAT 98
[2020-07-26 16:17] LABS: Glucose, Whole Blood 77 mg/dL (60-115)
[2020-07-26 19:31] VITALS: BP 120/56; PULSE 80; RESP 18; TEMP 37.4; O2SAT 96
[2020-07-26 20:15] LABS: Glucose, Whole Blood 115 mg/dL (60-115)
[2020-07-26 20:28] VITALS: BP 120/56; PULSE 80
[2020-07-26] MEDS: Amiodarone HCL 200 MG TABLET 400 MG PO (20:28)
[2020-07-26] MEDS: Enoxaparin Sodium 40 MG/0.4 ML SYRINGE SUBCUT (20:29)
[2020-07-27] VITALS (8 sets, daily range): BP systolic 113–145; BP diastolic 55–71; PULSE 63–85; RESP 18–20; TEMP 35.9–37.3; O2SAT 93–97; BMI 25.9
[2020-07-27] MEDS: Piperacillin Sodium/Tazobactam 3.375 GM in 0.9 % Sodium Chloride 50 ML IV ×4 (00:30→19:14)
--- NOTE | 2020-07-27 07:00 | ECG_ITS ---
Test Reason : follow QTC Blood Pressure : / mmHG Vent. Rate : 066 BPM Atrial Rate : 066 BPM P-R Int : 142 ms QRS Dur : 092 ms QT Int : 460 ms P-R-T Axes : 066 054 035 degrees QTc Int : 482 ms Normal sinus rhythm Prolonged QT Abnormal ECG Compared to prior EKG, rhythm change Referred By: Tosha Jeong Electronically Signed By:ASA BATEMAN
[2020-07-27 07:07] LABS: Hematocrit 27.5 % (42-52); Hemoglobin 9.3 g/dl (14.0-18.0); Mean Corpuscular HGB Conc 33.8 g/dl (31.0-36.0); Mean Corpuscular Hemoglobin 31.4 pg (27.0-33.0); Mean Corpuscular Volume 92.9 fL (80-98); Mean Platelet Volume 10.1 fL (9.4-12.4); Platelet Count 255 X10*3/uL (160-400); Red Blood Count 2.96 X10*6/uL (4.60-5.80); Red Cell Distribution Width 13.4 % (11.0-16.0); White Blood Count 11.5 X10*3/uL (4.8-10.8)
[2020-07-27 07:18] LABS: Glucose, Whole Blood 86 mg/dL (60-115)
[2020-07-27 07:21] LABS: Alanine Aminotransferase 60 U/L (0-40); Albumin Level 2.3 g/dL (3.5-5.0); Alkaline Phosphatase 73 U/L (39-117); Anion Gap 14 (12-20); Aspartate Amino Transferase 70 U/L (5-37); Bilirubin Total 1.3 mg/dL (0.0-1.0); Blood Urea Nitrogen 15 mg/dL (9-16); Calcium 7.4 mg/dL (8.4-10.2); Carbon Dioxide 23 mmol/L (22-29); Chloride 100 mmol/L (96-108); Creatinine Clr Calc Pharmacy 78.1; Estimated Glomerular Filt Rate > 60; Glucose Random 83 mg/dL (60-115); Potassium 3.9 mmol/L (3.3-5.1); Sodium 133 mmol/L (135-145); Total Protein 4.9 g/dL (6.5-8.0)
[2020-07-27] MEDS: Aspirin Enteric Coated 81 MG TABLET.DR PO (08:19)
[2020-07-27] MEDS: Amiodarone HCL 200 MG TABLET 400 MG PO ×2 (08:19→21:57)
[2020-07-27] MEDS: Cholecalciferol (Vitamin D3) 25 MCG TABLET PO (08:19)
[2020-07-27] MEDS: 0.9 % Sodium Chloride Flush 3 ML SYRINGE IVFLUSH ×2 (08:25→16:25)
--- NOTE | 2020-07-27 09:21 | PM.PNGS ---
Subjective Subjective Date of Service: 07/27/20 <BRIA Dumont - Last Filed: 07/27/20 09:45> 07/27/20 <Hayder Washington MD - Last Filed: 07/27/20 14:54> Interval history: Patient was evaluated at bedside this AM. He states he has only mild discomfort in the lower calf area. No fevers, chills, N/V. He is awaiting angiogram planned for tomorrow. <BRIA Dumont - Last Filed: 07/27/20 09:45> Physical Exam Vital Signs: Vital Signs: Last Vital Signs Temp 98.5 F 07/27/20 07:22 Pulse 68 07/27/20 07:22 Resp 20 07/27/20 07:22 BP 113/60 07/27/20 07:22 Pulse Ox 94 07/27/20 07:22 Body Mass Index 25.2 <BRIA Dumont - Last Filed: 07/27/20 09:45> Const: General: cooperative and no acute distress <BRIA Dumont - Last Filed: 07/27/20 09:45> Resp: Effort & Inspection: normal respiratory effort and able to speak in complete sentences <BRIA Dumont - Last Filed: 07/27/20 09:45> Skin: General skin exam: erythema (Right ankle and foot) and eschar (great toe) <BRIA Dumont - Last Filed: 07/27/20 09:45> Extrem: Other: Edema and erythema from lower calf down. Sensation decreased. <BRIA Dumont - Last Filed: 07/27/20 09:45> Progress Note: A&P Assessment and plan (1) Abscess of right foot: Problem details: Wound evaluated with AM. Dressing changed. Awaiting angiogram planned for tomorrow. <BRIA Dumont - Last Filed: 07/27/20 09:45> Status: Acute <BRIA Dumont - Last Filed: 07/27/20 09:45> Assessment and Plan: Continue ABX Pain meds as needed Encourage elevation of the leg No further debridment needed at this time <BRIA Dumont - Last Filed: 07/27/20 09:45> . General Surgery Attending - Noam Washington M.D. Patient was evaluated and examined at the bedside with Mr. Mukul Allen PA-C. I confirm above findings and plan as documented. No active surgical issue today. The erythematous cellulitis of the lower calf has not changed or worsened. <Hayder Washington MD - Last Filed: 07/27/20 14:54> Fall Risk Details Current Medications: Current Medications Generic Name Dose Route Start Last Admin Trade Name Freq PRN Reason Stop Dose Admin Acetaminophen 650 mg 07/24/20 19:18 Acetaminophen 325 Mg Tablet PO Q6H PRN Pain, Mild (Pain Scale 1-3) Amiodarone HCl 400 mg 07/26/20 21:00 07/27/20 08:19 Amiodarone Hcl 200 Mg Tablet PO 400 mg BID PRAMOD Administration Amlodipine Besylate 10 mg 07/25/20 09:00 07/25/20 08:46 Amlodipine Besylate 10 Mg Tablet PO 10 mg DAILY PR[facility]OD Administration Protocol Aspirin 81 mg 07/25/20 09:00 07/27/20 08:19 Aspirin Enteric Coated 81 Mg Tablet. PO 81 mg DAILY PRAMOD Administration Enoxaparin Sodium 40 mg 07/24/20 19:18 07/26/20 20:29 Enoxaparin Sodium 40 Mg/0.4 Ml Syringe SUBCUT 40 mg Q24H [facility] Administration Vancomycin HCl 1,250 mg/ 250 mls @ 166.667 mls/hr 07/25/20 13:00 07/26/20 16:23 Sodium Chloride IV Infused Q24H [facility] Infusion Sodium Chloride 1,000 mls @ 100 mls/hr 07/28/20 09:15 Ns IVCONT .Q10H [facility] Piperacillin Sod/Tazobactam 50 mls @ 100 mls/hr 07/26/20 12:00 07/27/20 07:47 Sod 3.375 gm/ Sodium Chloride IV Infused Q6H [facility] Infusion Insulin Human Lispro 0 unit 07/24/20 21:00 07/27/20 07:48 Insulin Lispro 100 Unit/Ml 3 Ml Vial SUBCUT Not Given QIDACHS [facility] Protocol Nicotine 14 mg 07/25/20 11:00 07/27/20 08:20 Nicotine 14 Mg Patch.Td24 TRANSDERMA Not Given DAILY [facility] Non-Formulary Medication 1 drop 07/25/20 09:00 Timolol EYE-LEFT DAILY [facility] Ondansetron HCl 4 mg 07/24/20 19:18 Ondansetron Hcl 4 Mg/2 Ml Vial IVPUSH Q8H PRN Nausea and Vomiting Pharmacy Consult 1 each 07/24/20 13:00 Consult Rx Vancomycin Dosing MISCELLANE DAILY PRN Consult order Pharmacy Consult 1 each 07/24/20 19:18 Consult Rx Vancomycin Dosing MISCELLANE DAILY PRN Consult order Sodium Chloride 3 ml 07/24/20 19:18 07/27/20 08:25 0.9 % Sodium Chloride Flush 3 Ml Syringe IVFLUSH 3 ml QSHIFT [facility]OD Administration Vitamin D 25 mcg 07/25/20 09:00 07/27/20 08:19 Cholecalciferol (Vitamin D3) 25 Mcg Tablet PO 25 mcg DAILY PR[facility]OD Administration Zolpidem Tartrate 5 mg 07/24/20 19:18 Zolpidem Tartrate 5 Mg Tablet PO BEDTIME PRN Insomnia <BRIA Dumont - Last Filed: 07/27/20 09:45> Time Spent With Patient Time: Total time spent is greater than 50% in coordination of care (as documented) at patient's floor/unit and/or counseling patient: <BRIA Dumont - Last Filed: 07/27/20 09:45> Time with patient: less than 15 minutes <Hayder Washington MD - Last Filed: 07/27/20 14:54>
--- NOTE | 2020-07-27 09:24 | HO.PM.IMPN ---
Subjective Subjective Date of Service: 07/27/20 <BRIA Millan - Last Filed: 07/27/20 10:53> 07/27/20 <Zuri Franklin MD - Last Filed: 07/27/20 15:30> Physical Exam Vital Signs: Vital Signs: Last Vital Signs Temp 98.5 F 07/27/20 07:22 Pulse 68 07/27/20 07:22 Resp 20 07/27/20 07:22 BP 113/60 07/27/20 07:22 Pulse Ox 94 07/27/20 07:22 Body Mass Index 25.2 <BRIA Millan - Last Filed: 07/27/20 10:53> Const: Nutritional Appearance: well nourished <BRIA Millan - Last Filed: 07/27/20 10:53> Orientation/consciousness: patient oriented x3 <BRIA Millan - Last Filed: 07/27/20 10:53> HENMT: Head: Yes normocephalic and Yes atraumatic <BRIA Millan - Last Filed: 07/27/20 10:53> Eyes: Sclerae: sclerae normal <BRIA Millan - Last Filed: 07/27/20 10:53> Chest: Chest palpation & inspection: normal inspection of the chest <BRIA Millan - Last Filed: 07/27/20 10:53> Resp: Effort & Inspection: normal respiratory effort and no respiratory distress <BRIA Millan - Last Filed: 07/27/20 10:53> Cardio: Rate: regular rate <BRIA Millan - Last Filed: 07/27/20 10:53> Rhythm: regular rhythm <BRIA Millan - Last Filed: 07/27/20 10:53> GI: Palpation (GI): Soft to palpation and nontender <BRIA Millan - Last Filed: 07/27/20 10:53> Skin: Other: still with erythema/swelling of foot/ankle although slightly less erythema of lowerleg <BRIA Millan - Last Filed: 07/27/20 10:53> Neuro: General: patient oriented x3 <BRIA Millan - Last Filed: 07/27/20 10:53> Cranial nerves: Yes CN's II-XII intact bilaterally and Yes Bilaterally intact EOM present <BRIA Millan - Last Filed: 07/27/20 10:53> Objective Data Current Medications Generic Name Dose Route Start Last Admin Trade Name Freq PRN Reason Stop Dose Admin Acetaminophen 650 mg 07/24/20 19:18 Acetaminophen 325 Mg Tablet PO Q6H PRN Pain, Mild (Pain Scale 1-3) Amiodarone HCl 400 mg 07/26/20 21:00 07/27/20 08:19 Amiodarone Hcl 200 Mg Tablet PO 400 mg BID PRAMOD Administration Amlodipine Besylate 10 mg 07/25/20 09:00 07/25/20 08:46 Amlodipine Besylate 10 Mg Tablet PO 10 mg DAILY PRAMOD Administration Protocol Aspirin 81 mg 07/25/20 09:00 07/27/20 08:19 Aspirin Enteric Coated 81 Mg Tablet. PO 81 mg DAILY PRAMOD Administration Enoxaparin Sodium 40 mg 07/24/20 19:18 07/26/20 20:29 Enoxaparin Sodium 40 Mg/0.4 Ml Syringe SUBCUT 40 mg Q24H [facility] Administration Vancomycin HCl 1,250 mg/ 250 mls @ 166.667 mls/hr 07/25/20 13:00 07/26/20 16:23 Sodium Chloride IV Infused Q24H [facility] Infusion Sodium Chloride 1,000 mls @ 100 mls/hr 07/28/20 09:15 Ns IVCONT .Q10H [facility] Piperacillin Sod/Tazobactam 50 mls @ 100 mls/hr 07/26/20 12:00 07/27/20 07:47 Sod 3.375 gm/ Sodium Chloride IV Infused Q6H [facility] Infusion Insulin Human Lispro 0 unit 07/24/20 21:00 07/27/20 07:48 Insulin Lispro 100 Unit/Ml 3 Ml Vial SUBCUT Not Given QIDACHS [facility] Protocol Nicotine 14 mg 07/25/20 11:00 07/27/20 08:20 Nicotine 14 Mg Patch.Td24 TRANSDERMA Not Given DAILY [facility] Non-Formulary Medication 1 drop 07/25/20 09:00 Timolol EYE-LEFT DAILY [facility] Ondansetron HCl 4 mg 07/24/20 19:18 Ondansetron Hcl 4 Mg/2 Ml Vial IVPUSH Q8H PRN Nausea and Vomiting Pharmacy Consult 1 each 07/24/20 13:00 Consult Rx Vancomycin Dosing MISCELLANE DAILY PRN Consult order Pharmacy Consult 1 each 07/24/20 19:18 Consult Rx Vancomycin Dosing MISCELLANE DAILY PRN Consult order Sodium Chloride 3 ml 07/24/20 19:18 07/27/20 08:25 0.9 % Sodium Chloride Flush 3 Ml Syringe IVFLUSH 3 ml QSHIFT [facility] Administration Vitamin D 25 mcg 07/25/20 09:00 07/27/20 08:19 Cholecalciferol (Vitamin D3) 25 Mcg Tablet PO 25 mcg DAILY PRAMOD Administration Zolpidem Tartrate 5 mg 07/24/20 19:18 Zolpidem Tartrate 5 Mg Tablet PO BEDTIME PRN Insomnia <BRIA Millan - Last Filed: 07/27/20 10:53> Labs CBC & Chem 7: : 07/27/20 06:10 07/27/20 06:10 <BRIA Millan - Last Filed: 07/27/20 10:53> Microbiology Microbiology Results: Microbiology 07/24/20 11:44 Blood - Venous Blood Culture - Preliminary No growth after 48 hours. 07/24/20 11:18 Blood - Venous Blood Culture - Preliminary No growth after 48 hours. 07/25/20 16:08 Foot - Abscess Gram Stain - Final 07/25/20 16:08 Foot - Abscess Routine Culture - Preliminary Culture in progress. <BRIA Millan Last Filed: 07/27/20 10:53> Assessment and Plan (1) Atrial fibrillation with rapid ventricular response: Status: Acute <BRIA Millan - Last Filed: 07/27/20 10:53> (2) Abscess of right foot: Problem details: Wound evaluated with AM. Dressing changed. Awaiting angiogram planned for tomorrow. <BRIA Millan - Last Filed: 07/27/20 10:53> Status: Acute <BRIA Millan - Last Filed: 07/27/20 10:53> (3) PAD (peripheral artery disease): Status: Acute <BRIA Millan - Last Filed: 07/27/20 10:53> (4) Osteomyelitis of ankle or foot, right, acute: Status: Acute <BRIA Millan - Last Filed: 07/27/20 10:53> Assessment and Plan: This is a 75-year-old male with a past medical history of diabetes who presents to the hospital with complaints of right lower extremity pain of several days duration. His presentation and workup is consistent with diabetic foot infection and sepsis found to have osteomyelitis and new onset atrial fibrillation. Sepsis present on admission Due to diabetic foot infection/osteomyelitis Diabetic foot infection/osteomyelitis, right foot. WBC trending down MRI showing osteomyelitis/osteonecrosis as well as abscess Seen by surgery s/p bedside debridement 07/24; I&D of abscess (07/25) Vascular studies showing PVD, seen by vascular surgery, plan for angiogram/angioplasty Tuesday (07/28) Will likely need amputation BCx negative to date Wound culture polymicrobial ID following -continue IV vancomycin, Zosyn D#4 New onset A. Fib with variable rate converted back and forth twice while in the ED. Currently in sinus -Seen by Cardiology, started on amiodarone 400 mg b.i.d for suppression; repeat EKG pending -elevated chads score (5), recommend Eliquis for anticoagulation following surgical intervention -echocardiogram pending Normocytic Anemia H/H stable. Likely r/t chronic dz/inflammation -Follow CBC -stool occult, iron studies Elevated LFTs no abdominal pain ?r/t zosyn -follow liver profile Hyponatremia. 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 There are linear calcifications on CT. There was a complex cystic abnormality on ultrasound in 2011.Overall I suspect there has been some interval increase in size. The lack of large solid component developing since 2012 is reassuring. -outpatient urologic follow up Tobacco dependence -NRT DVT prophylaxis - Lovenox on hold for procedure Attending-Dr. Franklin <BRIA Millan - Last Filed: 07/27/20 10:53>
[2020-07-27 09:55] LABS: Iron 25 mcg/dL (45-160); Percent Iron Saturation 21 % (15-50); Total Iron Binding Capacity 117 mcg/dL (228-428); Unsaturated Iron Binding 92 ug/dL
[2020-07-27 10:51] LABS: Ferritin 739 ng/mL (20-250)
--- NOTE | 2020-07-27 10:58 | PM.PNCARD ---
Subjective Subjective Date of Service: 07/27/20 Interval history: He states that he feels okay. No specific cardiac complaints. Review of Systems Review of Systems Yes all other systems are reviewed and are negative Cardiovascular: Reports as per HPI, Reports no additional cardiovascular complaints, Denies acrocyanosis, Denies cool extremities, Denies painful fingertips, Denies chest pain, Denies chest pain at rest, Denies diaphoresis, Denies syncope, Denies irregular heart rhythm, Denies claudication, Denies leg edema, Denies lightheadedness, Denies palpitations and Denies dyspnea Respiratory: Denies dyspnea Denies syncope Endocrine: Denies palpitations Physical Exam Vital Signs: Last Vital Signs Temp 98.5 F 07/27/20 07:22 Pulse 68 07/27/20 07:22 Resp 20 07/27/20 07:22 BP 113/60 07/27/20 07:22 Pulse Ox 94 07/27/20 07:22 Body Mass Index 25.2 Const General: cooperative, comfortable and no acute distress Orientation/consciousness: patient oriented x3 HENMT Other: Unremarkable Neck Neck: Yes normal visual inspection Chest Chest palpation & inspection: normal inspection of the chest Resp Auscultation: clear to auscultation bilaterally, no crackles and no wheezes Cardio Jugular venous distension: no JVD Palpation: normal PMI Heart sounds: S1 normal heart sound present, S2 normal heart sound present, no gallops, no murmurs and no rubs GI Palpation (GI): Soft to palpation Back/Spine/Pelvis Other: unremarkable Skin General skin exam: no rashes or lesions noted Neuro General: patient oriented x3 Extrem Other: Right leg with redness and there is dressing on the foot. Psych Mental Status: mental status grossly normal Results Labs and Meds Result diagrams: 07/27/20 06:10 07/27/20 06:10 Lab results: Laboratory Results - last 24 hr 07/26/20 07/26/20 07/26/20 11:18 16:14 20:09 WBC RBC Hgb Hct MCV MCH MCHC RDW Plt Count MPV Absolute Nucleated RBC Nucleated RBC % (auto) Sodium Potassium Chloride Carbon Dioxide Anion Gap BUN Creatinine Estim Creat Clear Calc Estimated GFR POC Glucose 100 77 115 Random Glucose Calcium Iron TIBC % Saturation Unsat Iron Binding Ferritin Total Bilirubin Direct Bilirubin AST ALT Alkaline Phosphatase Total Protein Albumin 04/03/0807/27/20 07/27/20 06:10 06:10 07:11 WBC 11.5 H RBC 2.96 L Hgb 9.3 L Hct 27.5 L MCV 92.9 MCH 31.4 MCHC 33.8 RDW 13.4 Plt Count 255 MPV 10.1 Absolute Nucleated RBC 0.000 Nucleated RBC % (auto) 0.0 Sodium 133 L Potassium 3.9 Chloride 100 Carbon Dioxide 23 Anion Gap 14 BUN 15 Creatinine 0.74 Estim Creat Clear Calc 78.1 Estimated GFR > 60 POC Glucose 86 Random Glucose 83 Calcium 7.4 L Iron 25 L TIBC 117 L % Saturation 21 Unsat Iron Binding 92 Ferritin 739 H Total Bilirubin 1.3 H Direct Bilirubin 1.0 H AST 70 H ALT 60 H Alkaline Phosphatase 73 Total Protein 4.9 L Albumin 2.3 L Progress Note: A&P Assessment and plan (1) Atrial fibrillation with rapid ventricular response: Status: Acute (2) PAD (peripheral artery disease): Status: Acute Assessment and Plan: With regard to atrial fibrillation episodes, we can keep him on amiodarone to maintain sinus rhythm. Brief episode of possibly atrial flutter on telemetry. Once the necessary surgical procedures are completed, may start Eliquis. Otherwise echocardiogram. Fall Risk Details Current Medications: Current Medications Generic Name Dose Route Start Last Admin Trade Name Freq PRN Reason Stop Dose Admin Acetaminophen 650 mg 07/24/20 19:18 Acetaminophen 325 Mg Tablet PO Q6H PRN Pain, Mild (Pain Scale 1-3) Amiodarone HCl 400 mg 07/26/20 21:00 07/27/20 08:19 Amiodarone Hcl 200 Mg Tablet PO 400 mg BID PRAMOD Administration Amlodipine Besylate 10 mg 07/25/20 09:00 07/25/20 08:46 Amlodipine Besylate 10 Mg Tablet PO 10 mg DAILY PRAMOD Administration Protocol Aspirin 81 mg 07/25/20 09:00 07/27/20 08:19 Aspirin Enteric Coated 81 Mg Tablet. PO 81 mg DAILY PRAMOD Administration Enoxaparin Sodium 40 mg 07/24/20 19:18 07/26/20 20:29 Enoxaparin Sodium 40 Mg/0.4 Ml Syringe SUBCUT 40 mg Q24H [facility] Administration Vancomycin HCl 1,250 mg/ 250 mls @ 166.667 mls/hr 07/25/20 13:00 07/26/20 16:23 Sodium Chloride IV Infused Q24H [facility] Infusion Sodium Chloride 1,000 mls @ 100 mls/hr 07/28/20 09:15 Ns IVCONT .Q10H [facility] Piperacillin Sod/Tazobactam 50 mls @ 100 mls/hr 07/26/20 12:00 07/27/20 07:47 Sod 3.375 gm/ Sodium Chloride IV Infused Q6H [facility] Infusion Insulin Human Lispro 0 unit 07/24/20 21:00 07/27/20 07:48 Insulin Lispro 100 Unit/Ml 3 Ml Vial SUBCUT Not Given QIDACHS [facility] Protocol Nicotine 14 mg 07/25/20 11:00 07/27/20 08:20 Nicotine 14 Mg Patch.Td24 TRANSDERMA Not Given DAILY [facility] Non-Formulary Medication 1 drop 07/25/20 09:00 Timolol EYE-LEFT DAILY [facility] Ondansetron HCl 4 mg 07/24/20 19:18 Ondansetron Hcl 4 Mg/2 Ml Vial IVPUSH Q8H PRN Nausea and Vomiting Pharmacy Consult 1 each 07/24/20 13:00 Consult Rx Vancomycin Dosing MISCELLANE DAILY PRN Consult order Pharmacy Consult 1 each 07/24/20 19:18 Consult Rx Vancomycin Dosing MISCELLANE DAILY PRN Consult order Sodium Chloride 3 ml 07/24/20 19:18 07/27/20 08:25 0.9 % Sodium Chloride Flush 3 Ml Syringe IVFLUSH 3 ml QSHIFT PRAMOD Administration Vitamin D 25 mcg 07/25/20 09:00 07/27/20 08:19 Cholecalciferol (Vitamin D3) 25 Mcg Tablet PO 25 mcg DAILY [facility] Administration Zolpidem Tartrate 5 mg 07/24/20 19:18 Zolpidem Tartrate 5 Mg Tablet PO BEDTIME PRN Insomnia Time Spent With Patient Time: Total time spent is greater than 50% in coordination of care (as documented) at patient's floor/unit and/or counseling patient: Time with patient: less than 15 minutes
[2020-07-27 11:13] LABS: Glucose, Whole Blood 97 mg/dL (60-115)
[2020-07-27 12:56] LABS: Vancomycin Trough 7.2 mcg/mL (10.0-20.0)
[2020-07-27] MEDS: vancomycin HCL 1,500 MG in 0.9 % Sodium Chloride 500 ML 333.33 MG IV (14:27)
[2020-07-27 16:07] LABS: Glucose, Whole Blood 119 mg/dL (60-115)
[2020-07-27 19:50] LABS: Glucose, Whole Blood 128 mg/dL (60-115)
[2020-07-28] VITALS (12 sets, daily range): BP systolic 137–159; BP diastolic 58–85; PULSE 64–79; RESP 17–20; TEMP 36.2–37.5; O2SAT 92–99
[2020-07-28] MEDS: Piperacillin Sodium/Tazobactam 3.375 GM in 0.9 % Sodium Chloride 50 ML IV ×4 (00:07→20:20)
[2020-07-28] MEDS: 0.9 % Sodium Chloride Flush 3 ML SYRINGE IVFLUSH ×2 (00:11→16:09)
[2020-07-28] MEDS: vancomycin HCL 750 MG in 0.9 % Sodium Chloride 250 ML 265 MG IV ×2 (00:49→13:27)
[2020-07-28 06:55] LABS: Hematocrit 28.1 % (42-52); Hemoglobin 9.4 g/dl (14.0-18.0); Mean Corpuscular HGB Conc 33.5 g/dl (31.0-36.0); Mean Corpuscular Hemoglobin 31.1 pg (27.0-33.0); Mean Platelet Volume 10.3 fL (9.4-12.4); Platelet Count 305 X10*3/uL (160-400); Red Blood Count 3.02 X10*6/uL (4.60-5.80); Red Cell Distribution Width 13.5 % (11.0-16.0); White Blood Count 12.5 X10*3/uL (4.8-10.8)
[2020-07-28 07:12] LABS: Glucose, Whole Blood 125 mg/dL (60-115)
[2020-07-28 07:22] LABS: Alanine Aminotransferase 56 U/L (0-40); Albumin Level 2.3 g/dL (3.5-5.0); Alkaline Phosphatase 78 U/L (39-117); Anion Gap 14 (12-20); Aspartate Amino Transferase 48 U/L (5-37); Bilirubin Direct 0.6 mg/dL (0.0-0.5); Bilirubin Total 0.9 mg/dL (0.0-1.0); Blood Urea Nitrogen 16 mg/dL (9-16); Calcium 7.6 mg/dL (8.4-10.2); Carbon Dioxide 22 mmol/L (22-29); Chloride 102 mmol/L (96-108); Creatinine Clr Calc Pharmacy 79.2; Estimated Glomerular Filt Rate > 60; Glucose Random 125 mg/dL (60-115); Potassium 3.8 mmol/L (3.3-5.1); Sodium 134 mmol/L (135-145)
--- NOTE | 2020-07-28 08:59 | CA_ITS ---
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 The visually estimated ejection fraction is between 60-65%. - The basal inferior segment is hypokinetic. - There is mild aortic valve regurgitation. Findings Left Ventricle Normal left ventricular cavity size. There is mildly increased left ventricular wall thickness. The left ventricular systolic function is normal. The visually estimated ejection fraction is between 60-65%. E/E prime ratio is between 8 and 15 consistent with indeterminate filling pressures. Evidence suggests grade I (mild) diastolic dysfunction. Wall Motion Rest Echo Findings The basal inferior segment is hypokinetic. Right Ventricle Normal right ventricular cavity size and systolic function. Atria Both atria are normal in size. Aortic Valve There is a normal trileaflet aortic valve. There is no aortic valve stenosis. There is mild aortic valve regurgitation. Mitral Valve The mitral valve appears normal. There is trace mitral valve regurgitation. There is no mitral valve stenosis. Pulmonic Valve The pulmonic valve was not well visualized. Tricuspid Valve Normal tricuspid valve structure. There is trace tricuspid valve regurgitation. The pulmonary artery systolic pressure is normal. Great Vessels The aortic annulus, sinuses of valsalva, and asc aorta are normal in size. Venous The inferior vena cava is normal in size and collapses greater than 50% with inspiration. Pericardium/Pleural There is no evidence of pericardial effusion. Prior Study Comparison No prior study available for comparison. Measurements 2D Linear Measurements IVSd: 1.08 0.6-0.9/0.6-1.0 cm LVIDd: 4.96 3.9-5.3/4.2-5.9 cm LVIDd Index: 2.67 2.4-3.2/2.2-3.1 cm/m2 LVIDs: 3.10 2.0-3.6 cm LVPWd: 1.12 0.7-1.1 cm Ao Root: 3.20 2.1-3.5 cm LA Diam: 4.10 2.7-3.8/3.0-4.0 cm LAIDs Index: 2.20 1.5-2.3 cm/m2 LV Mass: 254.84 67-162/88-224 g LV Mass Index: 137.01 43-95/49-115 g/m2 LVOT Diam: 2.10 3.0+(-)1.3 cm Mitral Valve MV Pk E: 0.96 MV PK A: 0.62 MV Decel Time: 214.00 E/A: 1.60 E'Lateral: 6.74 E'Medial: 5.55 E/E' Med: 17.30 E/E' Lat: 14.30 PHT: 63.00 MVA PHT: 3.49 Decel Major: 4.49 Aortic Valve AoV Pk Goran: 1.68 AoV Mn Goran: 1.03 AoV VTI: 0.38 AoV Pk Grad: 11.00 Aov Mn Grad: 5.00 CIARA Cont.VTI: 2.11 LVOT LVOT Pk Goran: 0.95 LVOT Mn Goran: 0.74 LVOT VTI: 0.23 LVOT Pk Grad: 4.00 LVOT Mn Grad: 2.00 LVOT Diam: 2.10 LVOT Area: 3.46 Diastolic Function MV Pk E: 0.96 MV Pk A: 0.62 E/A: 1.60 E'Medial: 5.55 E/E' Med: 17.30 E' Laterial: 6.74 E/E' Lat: 14.30 Tricuspid Valve TR Pk Goran: 2.76 TR Pk Grad: 30.00 Great Vessels Aorta Ao Root-2D: 3.20 2.0-3.7 cm Ao Asc: 3.70 2.1-3.4 cm Pulmonary Valve PV Pk Goran: 1.11 Peak PV Grad: 5.00 Updated in Other Vendor System with Status of Final Fam Ramsay MD electronically signed on 07/28/2020 10:41:58 AM with status of Final
--- NOTE | 2020-07-28 09:24 | PC.NURSE ---
To IR for angiogram with transporter om stretcher. Will give am meds when patient returns.
[2020-07-28] MEDS: 0.9 % Sodium Chloride 1,000 ML 100 ML IVCONT ×2 (10:00→17:49)
--- NOTE | 2020-07-28 10:16 | PM.PNCARD ---
Subjective Subjective Date of Service: 07/28/20 Interval history: He states that he feels okay. No specific cardiac complaints. Review of Systems Review of Systems Yes all other systems are reviewed and are negative Cardiovascular: Reports as per HPI, Reports no additional cardiovascular complaints, Denies acrocyanosis, Denies cool extremities, Denies painful fingertips, Denies chest pain, Denies chest pain at rest, Denies diaphoresis, Denies syncope, Denies irregular heart rhythm, Denies claudication, Denies leg edema, Denies lightheadedness, Denies palpitations and Denies dyspnea Respiratory: Denies dyspnea Denies syncope Endocrine: Denies palpitations Physical Exam Vital Signs: Last Vital Signs Temp 97.2 F 07/28/20 07:38 Pulse 73 07/28/20 07:38 Resp 17 07/28/20 07:38 BP 137/68 07/28/20 07:38 Pulse Ox 99 07/28/20 07:38 Body Mass Index 25.9 Const General: cooperative, comfortable and no acute distress Orientation/consciousness: patient oriented x3 HENMT Other: Unremarkable Neck Neck: Yes normal visual inspection Chest Chest palpation & inspection: normal inspection of the chest Resp Auscultation: clear to auscultation bilaterally, no crackles and no wheezes Cardio Jugular venous distension: no JVD Palpation: normal PMI Heart sounds: S1 normal heart sound present, S2 normal heart sound present, no gallops, no murmurs and no rubs GI Palpation (GI): Soft to palpation Back/Spine/Pelvis Other: unremarkable Skin General skin exam: no rashes or lesions noted Neuro General: patient oriented x3 Extrem Other: Right leg with redness and there is dressing on the foot. Psych Mental Status: mental status grossly normal Results Labs and Meds Result diagrams: 07/28/20 05:32 07/28/20 05:32 Lab results: Laboratory Results - last 24 hr 07/27/20 07/27/20 07/27/20 06:10 11:05 12:13 WBC RBC Hgb Hct MCV MCH MCHC RDW Plt Count MPV Absolute Nucleated RBC Nucleated RBC % (auto) Sodium Potassium Chloride Carbon Dioxide Anion Gap BUN Creatinine Estim Creat Clear Calc Estimated GFR POC Glucose 97 Random Glucose Calcium Ferritin 739 H Total Bilirubin Direct Bilirubin AST ALT Alkaline Phosphatase Total Protein Albumin Vancomycin Trough 7.2 L 07/27/20 07/27/2021 16:04 19:46 05:32 WBC RBC Hgb Hct MCV MCH MCHC RDW Plt Count MPV Absolute Nucleated RBC Nucleated RBC % (auto) Sodium 134 L Potassium 3.8 Chloride 102 Carbon Dioxide 22 Anion Gap 14 BUN 16 Creatinine 0.73 Estim Creat Clear Calc 79.2 Estimated GFR > 60 POC Glucose 119 H 128 H Random Glucose 125 H D Calcium 7.6 L Ferritin Total Bilirubin 0.9 Direct Bilirubin 0.6 H AST 48 H ALT 56 H Alkaline Phosphatase 78 Total Protein 5.0 L Albumin 2.3 L Vancomycin Trough 07/28/20 07/28/20 05:32 07:08 WBC 12.5 H RBC 3.02 L Hgb 9.4 L Hct 28.1 L MCV 93.0 MCH 31.1 MCHC 33.5 RDW 13.5 Plt Count 305 MPV 10.3 Absolute Nucleated RBC 0.000 Nucleated RBC % (auto) 0.0 Sodium Potassium Chloride Carbon Dioxide Anion Gap BUN Creatinine Estim Creat Clear Calc Estimated GFR POC Glucose 125 H Random Glucose Calcium Ferritin Total Bilirubin Direct Bilirubin AST ALT Alkaline Phosphatase Total Protein Albumin Vancomycin Trough Progress Note: A&P Assessment and plan (1) Atrial fibrillation with rapid ventricular response: Status: Acute (2) PAD (peripheral artery disease): Status: Acute Assessment and Plan: On telemetry another short episode of atrial fibrillation lasting for a few minutes. We can keep him on amiodarone to maintain sinus rhythm. Echocardiogram today. Also for lower extremity angiogram today. Once the necessary surgical procedures are completed, may start Eliquis. He will also require outpatient ischemia workup. Fall Risk Details Current Medications: Current Medications Generic Name Dose Route Start Last Admin Trade Name Stefanie PRN Reason Stop Dose Admin Acetaminophen 650 mg 07/24/20 19:18 Acetaminophen 325 Mg Tablet PO Q6H PRN Pain, Mild (Pain Scale 1-3) Amiodarone HCl 400 mg 07/26/20 21:00 07/27/20 21:57 Amiodarone Hcl 200 Mg Tablet PO 400 mg BID PRAMOD Administration Amlodipine Besylate 10 mg 07/25/20 09:00 07/25/20 08:46 Amlodipine Besylate 10 Mg Tablet PO 10 mg DAILY PRAMOD Administration Protocol Aspirin 81 mg 07/25/20 09:00 07/27/20 08:19 Aspirin Enteric Coated 81 Mg Tablet. PO 81 mg DAILY PRAMOD Administration Enoxaparin Sodium 40 mg 07/24/20 19:18 07/26/20 20:29 Enoxaparin Sodium 40 Mg/0.4 Ml Syringe SUBCUT 40 mg Q24H PRAMOD Administration Sodium Chloride 1,000 mls @ 100 mls/hr 07/28/20 09:15 Ns IVCONT .Q10H PRAMOD Piperacillin Sod/Tazobactam 50 mls @ 100 mls/hr 07/26/20 12:00 07/28/20 08:23 Sod 3.375 gm/ Sodium Chloride IV Infused Q6H PRAMOD Infusion Vancomycin HCl 750 mg/ Sodium 265 mls @ 265 mls/hr 07/28/20 01:00 07/28/20 01:49 Chloride IV Infused Q12H PRAMOD Infusion Insulin Human Lispro 0 unit 07/24/20 21:00 07/28/20 07:20 Insulin Lispro 100 Unit/Ml 3 Ml Vial SUBCUT Not Given QIDACHS [facility] Protocol Nicotine 14 mg 07/25/20 11:00 07/27/20 08:20 Nicotine 14 Mg Patch.Td24 TRANSDERMA Not Given DAILY [facility] Non-Formulary Medication 1 drop 07/25/20 09:00 Timolol EYE-LEFT DAILY [facility] Ondansetron HCl 4 mg 07/24/20 19:18 Ondansetron Hcl 4 Mg/2 Ml Vial IVPUSH Q8H PRN Nausea and Vomiting Pharmacy Consult 1 each 07/24/20 13:00 Consult Rx Vancomycin Dosing MISCELLANE DAILY PRN Consult order Pharmacy Consult 1 each 07/24/20 19:18 Consult Rx Vancomycin Dosing MISCELLANE DAILY PRN Consult order Sodium Chloride 3 ml 07/24/20 19:18 07/28/20 07:21 0.9 % Sodium Chloride Flush 3 Ml Syringe IVFLUSH Not Given QSHIFT [facility] Vitamin D 25 mcg 07/25/20 09:00 07/27/20 08:19 Cholecalciferol (Vitamin D3) 25 Mcg Tablet PO 25 mcg DAILY PRAMOD Administration Zolpidem Tartrate 5 mg 07/24/20 19:18 Zolpidem Tartrate 5 Mg Tablet PO BEDTIME PRN Insomnia Time Spent With Patient Time: Total time spent is greater than 50% in coordination of care (as documented) at patient's floor/unit and/or counseling patient: Time with patient: less than 15 minutes
[2020-07-28 10:25] LABS: Glucose, Whole Blood 124 mg/dL (60-115)
--- NOTE | 2020-07-28 11:14 | MHC.CM.PN ---
Patient does not appear ready for dc (IV Zosyn and IV Vanco, ? Angio (R) Foot today). HOME VS STR is the goal for dc and CM will continue to follow.
--- NOTE | 2020-07-28 11:52 | HO.PM.IMPN ---
Subjective Subjective Date of Service: 07/28/20 Interval History: Follow up afib and diabetic foot ulcer. No pain, no chest pain. Physical Exam Vital Signs: Vital Signs: Last Vital Signs Temp 97.2 F 07/28/20 07:38 Pulse 73 07/28/20 07:38 Resp 17 07/28/20 07:38 BP 137/68 07/28/20 07:38 Pulse Ox 99 07/28/20 07:38 Body Mass Index 25.9 Appearing in no acute distress lung sounds are clear to auscultation heart regular rate rhythm, clear S1, S2 positive bowel sounds, abdomen is soft, nontender neuro patient is alert x3, no focal deficits Objective Data Current Medications Generic Name Dose Route Start Last Admin Trade Name Freq PRN Reason Stop Dose Admin Acetaminophen 650 mg 07/24/20 19:18 Acetaminophen 325 Mg Tablet PO Q6H PRN Pain, Mild (Pain Scale 1-3) Amiodarone HCl 400 mg 07/26/20 21:00 07/27/20 21:57 Amiodarone Hcl 200 Mg Tablet PO 400 mg BID PRAMOD Administration Amlodipine Besylate 10 mg 07/25/20 09:00 07/25/20 08:46 Amlodipine Besylate 10 Mg Tablet PO 10 mg DAILY PRAMOD Administration Protocol Aspirin 81 mg 07/25/20 09:00 07/27/20 08:19 Aspirin Enteric Coated 81 Mg Tablet.Dr PO 81 mg DAILY PRAMOD Administration Enoxaparin Sodium 40 mg 07/24/20 19:18 07/26/20 20:29 Enoxaparin Sodium 40 Mg/0.4 Ml Syringe SUBCUT 40 mg Q24H PRAMOD Administration Sodium Chloride 1,000 mls @ 100 mls/hr 07/28/20 09:15 07/28/20 10:00 Ns IVCONT 100 mls/hr .Q10H PRAMOD Administration Piperacillin Sod/Tazobactam 50 mls @ 100 mls/hr 07/26/20 12:00 07/28/20 08:23 Sod 3.375 gm/ Sodium Chloride IV Infused Q6H PRAMOD Infusion Vancomycin HCl 750 mg/ Sodium 265 mls @ 265 mls/hr 07/28/20 01:00 07/28/20 01:49 Chloride IV Infused Q12H PRAMOD Infusion Insulin Human Lispro 0 unit 07/24/20 21:00 07/28/20 07:20 Insulin Lispro 100 Unit/Ml 3 Ml Vial SUBCUT Not Given QIDACHS [facility] Protocol Nicotine 14 mg 07/25/20 11:00 07/27/20 08:20 Nicotine 14 Mg Patch.Td24 TRANSDERMA Not Given DAILY [facility] Non-Formulary Medication 1 drop 07/25/20 09:00 Timolol EYE-LEFT DAILY [facility] Ondansetron HCl 4 mg 07/24/20 19:18 Ondansetron Hcl 4 Mg/2 Ml Vial IVPUSH Q8H PRN Nausea and Vomiting Pharmacy Consult 1 each 07/24/20 13:00 Consult Rx Vancomycin Dosing MISCELLANE DAILY PRN Consult order Pharmacy Consult 1 each 07/24/20 19:18 Consult Rx Vancomycin Dosing MISCELLANE DAILY PRN Consult order Sodium Chloride 3 ml 07/24/20 19:18 07/28/20 07:21 0.9 % Sodium Chloride Flush 3 Ml Syringe IVFLUSH Not Given QSHIFT [facility] Vitamin D 25 mcg 07/25/20 09:00 07/27/20 08:19 Cholecalciferol (Vitamin D3) 25 Mcg Tablet PO 25 mcg DAILY [facility] Administration Zolpidem Tartrate 5 mg 07/24/20 19:18 Zolpidem Tartrate 5 Mg Tablet PO BEDTIME PRN Insomnia Labs CBC & Chem 7: 07/28/20 05:32 07/28/20 05:32 Microbiology Microbiology Results: Microbiology 07/25/20 16:08 Foot - Abscess Gram Stain - Final 07/25/20 16:08 Foot - Abscess Routine Culture - Final Methicillin Res Staph Aureus 07/24/20 11:44 Blood - Venous Blood Culture - Preliminary No growth after 48 hours. 07/24/20 11:18 Blood - Venous Blood Culture - Preliminary No growth after 48 hours. Assessment and Plan (1) Atrial fibrillation with rapid ventricular response: Status: Acute (2) Osteomyelitis of ankle or foot, right, acute: Status: Acute Assessment and Plan: 75-year-old male with a past medical history of diabetes who presents to the hospital with complaints of right lower extremity pain of several days duration. His presentation and workup is consistent with diabetic foot infection and sepsis found to have osteomyelitis and new onset atrial fibrillation. Sepsis present on admission secondary to diabetic foot infection/osteomyelitis. MRI showing osteomyelitis/osteonecrosis as well as abscess. Seen by surgery s/p bedside debridement (07/24); I&D of abscess (07/25) Vascular studies showing PVD -s/p Plasty of right anterior tibial artery -wound cx MRSA, continue Vanco and zosyn day #4 -ID following New onset A. Fib with variable rate. -Seen by Cardiology, started on amiodarone 400 mg b.i.d for suppression -elevated chads score (5), recommend Eliquis for anticoagulation following surgical intervention -echocardiogram showing preserved EF basal inferior hypokinesis Normocytic Anemia. H/H stable. Likely r/t chronic dz/inflammation -Follow CBC -stool occult, iron studies Elevated LFTs. Trending down. no abdominal pain,nausea, vomiting. -follow liver profile Hyponatremia. Improving, 134 today HTN. BP on lower side -hold Norvasc, HCTZ, lisinopril -follow bp closely HLD -statin on hold due to mild elevated in liver function Diabetes. controlled -hold metformin -SSI, POCs, ADA diet Cystic right kidney. Chronic. No solid mass. -outpatient follow up. Tobacco dependence -NRT Attending: Dr. Walter
--- NOTE | 2020-07-28 12:26 | MHC.CLN ---
RE: CONSULT PT IS CURRENTLY NPO WHEN DIET TO ADVANCE RECOMMEND GLUCERNA TID AND SHAUN TO INCREASE KCALS AND SUPPORT WOUND HEALING
--- NOTE | 2020-07-28 13:14 | P.OP_ITS ---
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 Ultrasound-guided left common femoral access 2. Aortogram with right lower extremity runoff 3. Plasty of right anterior tibial artery Surgeon:Juan Oscar M.D. Leveler Helper:None Anesthesia: Local with moderate conscious sedation for a total of 52 minutes, performed by ct Specimens:none Drains:none Estimated blood loss: Less than 10 ml Indications: 75-year-old gentleman presented to the hospital with a nonhealing right lower extremity diabetic ulcer. Noninvasive testing demonstrated arterial insufficiency. He now presents for endovascular intervention. The patient has signed the informed consent after reviewing risks, complications, benefits, and alternatives previously discussed with the patient in my office. The patient was given the opportunity to ask any additional questions or voice any concerns. All questions were answered to the patient's satisfaction. Procedure in detail: Patient was brought to the angiography suite prior to which a time-out was called for patient identification and site verification. Bilateral groins were prepped and draped in the standard surgical fashion. Under ultrasound guidance left common femoral was punctured with micro puncture needle and wire. Subsequently a precision 4 British sheath was then placed. [employer] wire was advanced to the level of the aorta. 4 British Flush catheter was brought up and parked at the level of the renal arteries. Aortogram was then undertaken. Catheter was brought down to the level of the iliac bifurcation. Iliacs were subsequently imaged. Catheter was then brought in up and over to the right side SFA. Runoff study was then undertaken. At this point it below knee disease was identified. We administered 5000 units of systemic heparin. Up and over 6 British sheath was then placed. We were able to note the below-knee disease with a trail Blazer catheter that was brought just to the below-knee popliteal. We then exchanged out for an 014 wire which we were able to traverse the anterior tibial stenotic areas. Once this was done true lumen was confirmed with a trail Blazer 014 catheter. Once this was done we plasty the area 0 with a progressive 1.5-2 balloon. This demonstrated reasonable result. At this point we turned our attention to the aortic bifurcation where there was some calcifications. Multiple orthogonal views were undertaken. There was no flow-limiting stenosis noted. At this point catheter wire sheath was then removed. StarClose closure device was deployed. Patient tolerated the procedure well returned to recovery with stable vitals. Interpretation of films: 1. Ultrasound demonstrates appropriate femoral puncture. Image of which was saved. 2. Aortogram demonstrates appropriate caliber aorta. Minimal disease. Appropriate take-off of the renals. 3. Iliac images demonstrate significant calcification at the origin with the calcific ring at the distal aortic bifurcation. No flow-limiting stenosis. 4. Right lower extremity study demonstrated good flow through the profunda and SFA all the way down to the popliteal. Below knee prone you will was the main dominant runoff all the way down to the foot which did complete the arch. The anterior tibial had of very small caliber had some mild to moderate disease throughout terminated in the mid to distal ankle. Posterior tibial was totally occluded. Conclusion: 1. Successful plasty of anterior tibial artery. Patient now has 1 and half vessel runoff. I do believe he has reasonable supply to heal nonhealing ulcer of that foot. This note is constructed using voice recognition software. While every effort has been made to ensure accuracy, car blocker errors may have been included. Thank you for allowing me to participate in the care of your patient. Yours sincerely, Juan Oscar MD, FACS, R.P.V.I.
--- NOTE | 2020-07-28 13:20 | PM.EVENT ---
Event Note Date of Service: 07/28/20 Event Note: Patient underwent successful endovascular intervention. Will need to be on Plavix 75 mg oral daily. This will need to be continued upon discharge for 6 months. General surgery following in regards to his wound. I will be away for the next [address] Resendez covering.
[2020-07-28 13:43] LABS: Transferrin 77 mg/dL (188-341)
[2020-07-28] MEDS: Clopidogrel Bisulfate 300 MG TABLET PO (14:04)
[2020-07-28 16:25] LABS: Glucose, Whole Blood 84 mg/dL (60-115)
[2020-07-28 20:20] LABS: Glucose, Whole Blood 96 mg/dL (60-115)
[2020-07-28] MEDS: Amiodarone HCL 200 MG TABLET 400 MG PO (20:22)
[2020-07-29] VITALS (9 sets, daily range): BP systolic 134–161; BP diastolic 61–76; PULSE 65–76; RESP 16–20; TEMP 36.1–37.1; O2SAT 92–100
[2020-07-29 00:43] LABS: Vancomycin Trough 10.8 mcg/mL (10.0-20.0)
[2020-07-29] MEDS: 0.9 % Sodium Chloride Flush 3 ML SYRINGE IVFLUSH ×2 (01:06→08:37)
[2020-07-29] MEDS: vancomycin HCL 750 MG in 0.9 % Sodium Chloride 250 ML 265 MG IV (01:06)
[2020-07-29] MEDS: Piperacillin Sodium/Tazobactam 3.375 GM in 0.9 % Sodium Chloride 50 ML IV ×4 (02:10→21:12)
[2020-07-29] MEDS: 0.9 % Sodium Chloride 1,000 ML 100 ML IVCONT ×2 (05:15→14:58)
[2020-07-29 06:26] LABS: MANUAL DIFF FLAG NO
[2020-07-29 06:46] LABS: Basophils Absolute Auto 0.1 X10*3/uL (0.0-0.2); Basophils Percent Auto 0.4 % (0-2); Eosinophils Absolute Auto 0.1 X10*3/uL (0.0-0.4); Eosinophils Percent Auto 1.1 % (0-4); Hematocrit 27.2 % (42-52); Hemoglobin 9.2 g/dl (14.0-18.0); Imm Gran Abs Auto 0.15 X10*3/uL (0.00-0.03); Imm Gran Pct Auto 1.3 % (0.0-0.4); Lymphocytes Absolute Auto 0.9 X10*3/uL (1.2-4.9); Lymphocytes Percent Auto 7.6 % (20-40); Mean Corpuscular HGB Conc 33.8 g/dl (31.0-36.0); Mean Corpuscular Hemoglobin 32.1 pg (27.0-33.0); Mean Corpuscular Volume 94.8 fL (80-98); Mean Platelet Volume 10.2 fL (9.4-12.4); Monocytes Absolute Auto 0.7 X10*3/uL (0.1-1.2); Monocytes Percent Auto 6.3 % (2-11); Neutrophils Absolute Auto 9.5 X10*3/uL (2.0-8.3); Neutrophils Percent Auto 83.3 % (45-73); Platelet Count 351 X10*3/uL (160-400); Red Blood Count 2.87 X10*6/uL (4.60-5.80); Red Cell Distribution Width 13.8 % (11.0-16.0); White Blood Count 11.4 X10*3/uL (4.8-10.8)
[2020-07-29 07:01] LABS: Alanine Aminotransferase 43 U/L (0-40); Albumin Level 2.3 g/dL (3.5-5.0); Alkaline Phosphatase 69 U/L (39-117); Anion Gap 11 (12-20); Aspartate Amino Transferase 36 U/L (5-37); Bilirubin Direct 0.6 mg/dL (0.0-0.5); Blood Urea Nitrogen 12 mg/dL (9-16); Calcium 7.5 mg/dL (8.4-10.2); Carbon Dioxide 24 mmol/L (22-29); Chloride 104 mmol/L (96-108); Creatinine Clr Calc Pharmacy 80.3; Estimated Glomerular Filt Rate > 60; Glucose Random 88 mg/dL (60-115); Potassium 4.3 mmol/L (3.3-5.1); Sodium 135 mmol/L (135-145); Total Protein 4.9 g/dL (6.5-8.0)
[2020-07-29 07:09] LABS: Glucose, Whole Blood 86 mg/dL (60-115)
[2020-07-29] MEDS: Clopidogrel Bisulfate 75 MG TABLET PO (08:37)
[2020-07-29] MEDS: Aspirin Enteric Coated 81 MG TABLET.DR PO (08:37)
[2020-07-29] MEDS: Cholecalciferol (Vitamin D3) 25 MCG TABLET PO (08:37)
[2020-07-29] MEDS: Amiodarone HCL 200 MG TABLET 400 MG PO ×2 (08:37→21:13)
--- NOTE | 2020-07-29 09:42 | P.PNCA_ITS ---
Subjective Subjective Date of Service: 07/29/20 Interval history: No specific cardiac complaints. Review of Systems Review of Systems Yes all other systems are reviewed and are negative Cardiovascular: Reports as per HPI, Reports no additional cardiovascular complaints, Denies acrocyanosis, Denies cool extremities, Denies painful fingertips, Denies chest pain, Denies chest pain at rest, Denies diaphoresis, Denies syncope, Denies irregular heart rhythm, Denies claudication, Denies leg edema, Denies lightheadedness, Denies palpitations and Denies dyspnea Respiratory: Denies dyspnea Denies syncope Endocrine: Denies palpitations Physical Exam Vital Signs: Last Vital Signs Temp 98.4 F 07/29/20 07:41 Pulse 67 07/29/20 08:37 Resp 18 07/29/20 07:41 BP 142/63 H 07/29/20 08:37 Pulse Ox 97 07/29/20 07:41 Body Mass Index 25.9 Const General: cooperative, comfortable and no acute distress Orientation/consciousness: patient oriented x3 HENMT Other: Unremarkable Neck Neck: Yes normal visual inspection Chest Chest palpation & inspection: normal inspection of the chest Resp Auscultation: clear to auscultation bilaterally, no crackles and no wheezes Cardio Jugular venous distension: no JVD Palpation: normal PMI Heart sounds: S1 normal heart sound present, S2 normal heart sound present, no gallops, no murmurs and no rubs GI Palpation (GI): Soft to palpation Back/Spine/Pelvis Other: unremarkable Skin General skin exam: no rashes or lesions noted Neuro General: patient oriented x3 Extrem Other: Right leg with redness and there is dressing on the foot. Psych Mental Status: mental status grossly normal Results Labs and Meds Result diagrams: 07/29/20 05:54 07/29/20 05:54 Lab results: Laboratory Results - last 24 hr 07/27/20 07/28/20 07/28/20 06:10 09:56 16:16 WBC RBC Hgb Hct MCV MCH MCHC RDW Plt Count MPV Immature Gran % (Auto) Neut % (Auto) Lymph % (Auto) [place] % (Auto) Eos % (Auto) Baso % (Auto) Lymph # (Auto) [place] # (Auto) Eos # (Auto) Baso # (Auto) Abs Immat Gran (auto) Absolute Neuts (auto) Absolute Nucleated RBC Nucleated RBC % (auto) Sodium Potassium Chloride Carbon Dioxide Anion Gap BUN Creatinine Estim Creat Clear Calc Estimated GFR POC Glucose 124 H 84 Random Glucose Calcium Transferrin 77 L Total Bilirubin Direct Bilirubin AST ALT Alkaline Phosphatase Total Protein Albumin Vancomycin Trough 07/28/20 07/29/20 07/29/20 20:11 00:09 05:54 WBC RBC Hgb Hct MCV MCH MCHC RDW Plt Count MPV Immature Gran % (Auto) Neut % (Auto) Lymph % (Auto) [place] % (Auto) Eos % (Auto) Baso % (Auto) Lymph # (Auto) [place] # (Auto) Eos # (Auto) Baso # (Auto) Abs Immat Gran (auto) Absolute Neuts (auto) Absolute Nucleated RBC Nucleated RBC % (auto) Sodium 135 Potassium 4.3 Chloride 104 Carbon Dioxide 24 Anion Gap 11 L BUN 12 Creatinine 0.72 Estim Creat Clear Calc 80.3 Estimated GFR > 60 POC Glucose 96 Random Glucose 88 Calcium 7.5 L Transferrin Total Bilirubin 1.0 Direct Bilirubin 0.6 H AST 36 ALT 43 H Alkaline Phosphatase 69 Total Protein 4.9 L Albumin 2.3 L Vancomycin Trough 10.8 07/29/20 07/29/20 05:54 07:06 WBC 11.4 H RBC 2.87 L Hgb 9.2 L Hct 27.2 L MCV 94.8 MCH 32.1 MCHC 33.8 RDW 13.8 Plt Count 351 MPV 10.2 Immature Gran % (Auto) 1.3 H Neut % (Auto) 83.3 H Lymph % (Auto) 7.6 L [place] % (Auto) 6.3 Eos % (Auto) 1.1 Baso % (Auto) 0.4 Lymph # (Auto) 0.9 L [place] # (Auto) 0.7 Eos # (Auto) 0.1 Baso # (Auto) 0.1 Abs Immat Gran (auto) 0.15 H Absolute Neuts (auto) 9.5 H Absolute Nucleated RBC 0.000 Nucleated RBC % (auto) 0.0 Sodium Potassium Chloride Carbon Dioxide Anion Gap BUN Creatinine Estim Creat Clear Calc Estimated GFR POC Glucose 86 Random Glucose Calcium Transferrin Total Bilirubin Direct Bilirubin AST ALT Alkaline Phosphatase Total Protein Albumin Vancomycin Trough Progress Note: A&P Assessment and plan (1) Atrial fibrillation with rapid ventricular response: Status: Acute (2) PAD (peripheral artery disease): Problem details: Plasty of right anterior tibial artery Dr. Celestina July 2020 Status: Acute Assessment and Plan: On telemetry another short episode of atrial fibrillation lasting for a few minutes. We can keep him on amiodarone to maintain sinus rhythm. Once the necessary surgical procedures are completed, may start Eliquis. As he is on dual anti-platelet therapy, possibly stop aspirin once Eliquis is started. He will also require outpatient ischemia workup. Fall Risk Details Current Medications: Current Medications Generic Name Dose Route Start Last Admin Trade Name Freq PRN Reason Stop Dose Admin Acetaminophen 650 mg 07/24/20 19:18 Acetaminophen 325 Mg Tablet PO Q6H PRN Pain, Mild (Pain Scale 1-3) Acetaminophen 650 mg 07/28/20 13:12 Acetaminophen 325 Mg Tablet PO Q6H PRN Pain, Mild (Pain Scale 1-3) Amiodarone HCl 400 mg 07/26/20 21:00 07/29/20 08:37 Amiodarone Hcl 200 Mg Tablet PO 400 mg BID PRAMOD Administration Amlodipine Besylate 10 mg 07/25/20 09:00 07/25/20 08:46 Amlodipine Besylate 10 Mg Tablet PO 10 mg DAILY PRAMOD Administration Protocol Aspirin 81 mg 07/25/20 09:00 07/29/20 08:37 Aspirin Enteric Coated 81 Mg Tablet. PO 81 mg DAILY PRAMOD Administration Clopidogrel Bisulfate 75 mg 07/29/20 09:00 07/29/20 08:37 Clopidogrel Bisulfate 75 Mg Tablet PO 75 mg DAILY PRAMOD Administration Enoxaparin Sodium 40 mg 07/24/20 19:18 07/26/20 20:29 Enoxaparin Sodium 40 Mg/0.4 Ml Syringe SUBCUT 40 mg Q24H PRAMOD Administration Sodium Chloride 1,000 mls @ 100 mls/hr 07/28/20 09:15 07/29/20 05:15 Ns IVCONT 100 mls/hr .Q10H PRAMOD Administration Piperacillin Sod/Tazobactam 50 mls @ 100 mls/hr 07/28/20 20:00 07/29/20 09:17 Sod 3.375 gm/ Sodium Chloride IV Infused Q6H PRAMOD Infusion Vancomycin HCl 1,000 mg/ 270 mls @ 270 mls/hr 07/29/20 13:00 Sodium Chloride IV Q12H PRAMOD Insulin Human Lispro 0 unit 07/24/20 21:00 07/29/20 08:30 Insulin Lispro 100 Unit/Ml 3 Ml Vial SUBCUT Not Given QIDACHS [facility] Protocol Nicotine 14 mg 07/25/20 11:00 07/29/20 08:38 Nicotine 14 Mg Patch.Td24 TRANSDERMA Not Given DAILY [facility] Non-Formulary Medication 1 drop 07/25/20 09:00 Timolol EYE-LEFT DAILY [facility] Ondansetron HCl 4 mg 07/24/20 19:18 Ondansetron Hcl 4 Mg/2 Ml Vial IVPUSH Q8H PRN Nausea and Vomiting Oxycodone HCl 5 mg 07/28/20 13:12 Oxycodone Hcl Immed Release 5 Mg Tablet PO Q4H PRN Pain, Moderate (Pain Scale 4-6 Pharmacy Consult 1 each 07/24/20 13:00 Consult Rx Vancomycin Dosing MISCELLANE DAILY PRN Consult order Pharmacy Consult 1 each 07/24/20 19:18 Consult Rx Vancomycin Dosing MISCELLANE DAILY PRN Consult order Sodium Chloride 3 ml 07/24/20 19:18 07/29/20 08:37 0.9 % Sodium Chloride Flush 3 Ml Syringe IVFLUSH 3 ml QSHIFT [facility] Administration Vitamin D 25 mcg 07/25/20 09:00 07/29/20 08:37 Cholecalciferol (Vitamin D3) 25 Mcg Tablet PO 25 mcg DAILY [facility] Administration Zolpidem Tartrate 5 mg 07/24/20 19:18 Zolpidem Tartrate 5 Mg Tablet PO BEDTIME PRN Insomnia Time Spent With Patient Time: Total time spent is greater than 50% in coordination of care (as documented) at patient's floor/unit and/or counseling patient: Time with patient: less than 15 minutes
[2020-07-29 11:16] LABS: Glucose, Whole Blood 110 mg/dL (60-115)
[2020-07-29] MEDS: vancomycin HCL 1,000 MG in 0.9 % Sodium Chloride 250 ML 270 MG IV (13:21)
--- NOTE | 2020-07-29 13:59 | MHC.CM.PN ---
Per Patient and 's request, a referral was made to [facility] r/t Patient's Son, in the home, receiving care from that same agency.CM will follow for dc planning.
--- NOTE | 2020-07-29 14:51 | HO.PM.IMPN ---
Subjective Subjective Date of Service: 07/29/20 <Deborah Lopez NP - Last Filed: 07/29/20 15:01> 07/29/20 <Abdirizak Walter MD - Last Filed: 07/29/20 16:07> Interval History: seen and examined this AM reports no foot pain d/w the the high likelihood that antibiotics would not be curative of his infection and that amputation is needed for definitive treatment, but at this time he is unsure how he wants to proceed. ROS General - no fevers or chills Cardiovascular - no chest pain Respiratory - no shortness of breath or cough Abdominal- no abdominal pain, nausea, vomiting, diarrhea <Abdirizak Walter MD - Last Filed: 07/29/20 16:07> Physical Exam Vital Signs: Vital Signs: Last Vital Signs Temp 98.1 F 07/29/20 11:23 Pulse 69 07/29/20 11:23 Resp 20 07/29/20 11:23 BP 134/65 07/29/20 11:23 Pulse Ox 99 07/29/20 11:23 Body Mass Index 25.9 <Deborah Lopez NP - Last Filed: 07/29/20 15:01> Appearing in no acute distress lung sounds are clear to auscultation heart regular rate rhythm, clear S1, S2 positive bowel sounds, abdomen is soft, nontender neuro patient is alert x3, no focal deficits right great toe with multiple areas of ulceration and drainage. <Deborah Lopez NP - Last Filed: 07/29/20 15:01> Objective Data Current Medications Generic Name Dose Route Start Last Admin Trade Name Stefanie PRN Reason Stop Dose Admin Acetaminophen 650 mg 07/24/20 19:18 Acetaminophen 325 Mg Tablet PO Q6H PRN Pain, Mild (Pain Scale 1-3) Acetaminophen 650 mg 07/28/20 13:12 Acetaminophen 325 Mg Tablet PO Q6H PRN Pain, Mild (Pain Scale 1-3) Amiodarone HCl 400 mg 07/26/20 21:00 07/29/20 08:37 Amiodarone Hcl 200 Mg Tablet PO 400 mg BID PR[facility] Administration Amlodipine Besylate 10 mg 07/25/20 09:00 07/25/20 08:46 Amlodipine Besylate 10 Mg Tablet PO 10 mg DAILY [facility] Administration Protocol Aspirin 81 mg 07/25/20 09:00 07/29/20 08:37 Aspirin Enteric Coated 81 Mg Tablet. PO 81 mg DAILY [facility] Administration Clopidogrel Bisulfate 75 mg 07/29/20 09:00 07/29/20 08:37 Clopidogrel Bisulfate 75 Mg Tablet PO 75 mg DAILY [facility] Administration Enoxaparin Sodium 40 mg 07/24/20 19:18 07/26/20 20:29 Enoxaparin Sodium 40 Mg/0.4 Ml Syringe SUBCUT 40 mg Q24H [facility] Administration Sodium Chloride 1,000 mls @ 100 mls/hr 07/28/20 09:15 07/29/20 05:15 Ns IVCONT 100 mls/hr .Q10H [facility] Administration Piperacillin Sod/Tazobactam 50 mls @ 100 mls/hr 07/28/20 20:00 07/29/20 09:17 Sod 3.375 gm/ Sodium Chloride IV Infused Q6H [facility] Infusion Vancomycin HCl 1,000 mg/ 270 mls @ 270 mls/hr 07/29/20 13:00 07/29/20 13:21 Sodium Chloride IV 270 mls/hr Q12H [facility] Administration Insulin Human Lispro 0 unit 07/24/20 21:00 07/29/20 11:20 Insulin Lispro 100 Unit/Ml 3 Ml Vial SUBCUT Not Given QIDACHS [facility] Protocol Nicotine 14 mg 07/25/20 11:00 07/29/20 08:38 Nicotine 14 Mg Patch.Td24 TRANSDERMA Not Given DAILY [facility] Non-Formulary Medication 1 drop 07/25/20 09:00 Timolol EYE-LEFT DAILY [facility] Ondansetron HCl 4 mg 07/24/20 19:18 Ondansetron Hcl 4 Mg/2 Ml Vial IVPUSH Q8H PRN Nausea and Vomiting Oxycodone HCl 5 mg 07/28/20 13:12 Oxycodone Hcl Immed Release 5 Mg Tablet PO Q4H PRN Pain, Moderate (Pain Scale 4-6 Pharmacy Consult 1 each 07/24/20 13:00 Consult Rx Vancomycin Dosing MISCELLANE DAILY PRN Consult order Pharmacy Consult 1 each 07/24/20 19:18 Consult Rx Vancomycin Dosing MISCELLANE DAILY PRN Consult order Sodium Chloride 3 ml 07/24/20 19:18 07/29/20 08:37 0.9 % Sodium Chloride Flush 3 Ml Syringe IVFLUSH 3 ml QSHIFT [facility] Administration Vitamin D 25 mcg 07/25/20 09:00 07/29/20 08:37 Cholecalciferol (Vitamin D3) 25 Mcg Tablet PO 25 mcg DAILY [facility] Administration Zolpidem Tartrate 5 mg 07/24/20 19:18 Zolpidem Tartrate 5 Mg Tablet PO BEDTIME PRN Insomnia <Deborah Lopez NP - Last Filed: 07/29/20 15:01> Labs CBC & Chem 7: : 07/29/20 05:54 07/29/20 05:54 <Deborah Lopez NP - Last Filed: 07/29/20 15:01> Microbiology Microbiology Results: Microbiology 07/24/20 11:44 Blood - Venous Blood Culture - Final No growth after 5 days. 07/24/20 11:18 Blood - Venous Blood Culture - Final No growth after 5 days. 07/25/20 16:08 Foot - Abscess Gram Stain - Final 07/25/20 16:08 Foot - Abscess Routine Culture - Final Methicillin Res Staph Aureus <Deborah Lopez NP - Last Filed: 07/29/20 15:01> Assessment and Plan (1) Atrial fibrillation with rapid ventricular response: Status: Acute <Deborah Lopez NP - Last Filed: 07/29/20 15:01> (2) Abscess of right foot: Status: Acute <Deborah Lopez NP - Last Filed: 07/29/20 15:01> Assessment and Plan: 75-year-old male with a past medical history of diabetes who presents to the hospital with complaints of right lower extremity pain of several days duration. His presentation and workup is consistent with diabetic foot infection and sepsis found to have osteomyelitis and new onset atrial fibrillation. Sepsis present on admission secondary to diabetic foot infection/osteomyelitis. MRI showing osteomyelitis/osteonecrosis as well as abscess. Seen by surgery s/p bedside debridement (07/24); I&D of abscess (07/25) Vascular studies showing PVD. Need general surgery input regarding dressings. -s/p Plasty of right anterior tibial artery -wound cx MRSA, continue Vanco and zosyn day #4 -will need PICC line -ID following New onset A. Fib with variable rate. -Seen by Cardiology, started on amiodarone 400 mg b.i.d for suppression -elevated chads score (5), recommend Eliquis for anticoagulation following surgical intervention -echocardiogram showing preserved EF basal inferior hypokinesis Normocytic Anemia. H/H stable. Likely r/t chronic dz/inflammation -Follow CBC -stool occult, iron studies Elevated LFTs. Trending down. no abdominal pain,nausea, vomiting. -follow liver profile Hyponatremia. Improving, 134 today HTN. BP on lower side -hold Norvasc, HCTZ, lisinopril -follow bp closely HLD -statin on hold due to mild elevated in liver function Diabetes. controlled -hold metformin -SSI, POCs, ADA diet Cystic right kidney. Chronic. No solid mass. -outpatient follow up. Tobacco dependence -NRT Dispo: Discharge when medically stable regarding foot infection Attending: Dr. Walter <Deborah Lopze NP - Last Filed: 07/29/20 15:01> (3) Osteomyelitis of ankle or foot, right, acute: Status: Acute <Deborah Lopez NP - Last Filed: 07/29/20 15:01> Assessment and Plan: Attending Attestation: Patient seen and examined independently and I was present during kurtz portion of E/M service. Agree with Jose E Lopez NP's history, physical, assessment, and plan. Seen and examined this AM Foot infection still persists. He is unsure if he wants amputation. Continue broad spectum antibiotics. BP rebounding, re-introduce norvasc today and lisinopril tomorrow. D/C HCTZ due to hypoNa In regards to his PAD and A. Fib -- placed on plavix added to his baseline aspirin. Would likely d/c one when starting Eliquis. Hold off Eliquis until he makes his decision re: amputation vs treat with antibiotics alone. <Abdirizak Walter MD - Last Filed: 07/29/20 16:07>
--- NOTE | 2020-07-29 15:56 | PM.PNGS ---
Subjective Subjective Date of Service: 07/29/20 Interval history: Underwent plasty of the anterior tibial artery yesterday Tolerated the procedure well Denies new complaints Physical Exam Vital Signs: Vital Signs: Last Vital Signs Temp 98.1 F 07/29/20 11:23 Pulse 69 07/29/20 11:23 Resp 20 07/29/20 11:23 BP 134/65 07/29/20 11:23 Pulse Ox 99 07/29/20 11:23 Body Mass Index 25.9 Const: Other: Sitting up on chair General: comfortable and no acute distress Resp: Effort & Inspection: normal respiratory effort Cardio: Rate: regular rate GI: Palpation (GI): Soft to palpation and nontender Extrem: Other: Right foot - ulcer on the medial and plantar aspect of the big toe, the eschar, some drainage the interphalangeal space, eschar extending past the metatarsophalangeal are Progress Note: A&P Assessment and plan (1) Abscess of right foot: Status: Acute Assessment and Plan: Has osteomyelitis of the 1st metatarsal head Had angioplasty of the anterior tibial done yesterday Explained to him that ulcer and infection unlikely to heal I have told him the amputation of the big toe at the metatarsal may be best option He wants to think about it and says that he wanted to save the big toe as best as he can Will follow and continue discussions with him. Fall Risk Details Current Medications: Current Medications Generic Name Dose Route Start Last Admin Trade Name Freq PRN Reason Stop Dose Admin Acetaminophen 650 mg 07/24/20 19:18 Acetaminophen 325 Mg Tablet PO Q6H PRN Pain, Mild (Pain Scale 1-3) Acetaminophen 650 mg 07/28/20 13:12 Acetaminophen 325 Mg Tablet PO Q6H PRN Pain, Mild (Pain Scale 1-3) Amiodarone HCl 400 mg 07/26/20 21:00 07/29/20 08:37 Amiodarone Hcl 200 Mg Tablet PO 400 mg BID [facility] Administration Amlodipine Besylate 10 mg 07/25/20 09:00 07/25/20 08:46 Amlodipine Besylate 10 Mg Tablet PO 10 mg DAILY [facility] Administration Protocol Aspirin 81 mg 07/25/20 09:00 07/29/20 08:37 Aspirin Enteric Coated 81 Mg Tablet. PO 81 mg DAILY [facility] Administration Clopidogrel Bisulfate 75 mg 07/29/20 09:00 07/29/20 08:37 Clopidogrel Bisulfate 75 Mg Tablet PO 75 mg DAILY [facility] Administration Enoxaparin Sodium 40 mg 07/24/20 19:18 07/26/20 20:29 Enoxaparin Sodium 40 Mg/0.4 Ml Syringe SUBCUT 40 mg Q24H [facility] Administration Sodium Chloride 1,000 mls @ 100 mls/hr 07/28/20 09:15 07/29/20 14:58 Ns IVCONT 100 mls/hr .Q10H [facility] Administration Piperacillin Sod/Tazobactam 50 mls @ 100 mls/hr 07/28/20 20:00 07/29/20 15:36 Sod 3.375 gm/ Sodium Chloride IV Infused Q6H [facility] Infusion Vancomycin HCl 1,000 mg/ 270 mls @ 270 mls/hr 07/29/20 13:00 07/29/20 15:02 Sodium Chloride IV Infused Q12H [facility] Infusion Insulin Human Lispro 0 unit 07/24/20 21:00 07/29/20 11:20 Insulin Lispro 100 Unit/Ml 3 Ml Vial SUBCUT Not Given QIDACHS ON [facility] OF [facility] Protocol Nicotine 14 mg 07/25/20 11:00 07/29/20 08:38 Nicotine 14 Mg Patch.Td24 TRANSDERMA Not Given DAILY [facility] OF [facility] Non-Formulary Medication 1 drop 07/25/20 09:00 Timolol EYE-LEFT DAILY [facility] OF [facility] Ondansetron HCl 4 mg 07/24/20 19:18 Ondansetron Hcl 4 Mg/2 Ml Vial IVPUSH Q8H PRN Nausea and Vomiting Oxycodone HCl 5 mg 07/28/20 13:12 Oxycodone Hcl Immed Release 5 Mg Tablet PO Q4H PRN Pain, Moderate (Pain Scale 4-6 Pharmacy Consult 1 each 07/24/20 13:00 Consult Rx Vancomycin Dosing MISCELLANE DAILY PRN Consult order Pharmacy Consult 1 each 07/24/20 19:18 Consult Rx Vancomycin Dosing MISCELLANE DAILY PRN Consult order Sodium Chloride 3 ml 07/24/20 19:18 07/29/20 14:58 0.9 % Sodium Chloride Flush 3 Ml Syringe IVFLUSH Not Given QSHIFT [facility] Vitamin D 25 mcg 07/25/20 09:00 07/29/20 08:37 Cholecalciferol (Vitamin D3) 25 Mcg Tablet PO 25 mcg DAILY [facility] Administration Zolpidem Tartrate 5 mg 07/24/20 19:18 Zolpidem Tartrate 5 Mg Tablet PO BEDTIME PRN Insomnia Time Spent With Patient Time: Total time spent is greater than 50% in coordination of care (as documented) at patient's floor/unit and/or counseling patient: Time with patient: 15 - 24 minutes
[2020-07-29 16:24] LABS: Glucose, Whole Blood 108 mg/dL (60-115)
[2020-07-29 20:38] LABS: Glucose, Whole Blood 96 mg/dL (60-115)
[2020-07-30] VITALS (7 sets, daily range): BP systolic 125–158; BP diastolic 58–75; PULSE 66–75; RESP 18–20; TEMP 36.1–37.1; O2SAT 95–97; BMI 25.9
[2020-07-30] MEDS: vancomycin HCL 1,000 MG in 0.9 % Sodium Chloride 250 ML 270 MG IV ×2 (00:45→15:13)
[2020-07-30] MEDS: Piperacillin Sodium/Tazobactam 3.375 GM in 0.9 % Sodium Chloride 50 ML IV ×4 (02:11→20:21)
[2020-07-30] MEDS: 0.9 % Sodium Chloride 1,000 ML 100 ML IVCONT ×2 (02:42→12:48)
[2020-07-30 07:13] LABS: Glucose, Whole Blood 101 mg/dL (60-115)
[2020-07-30] MEDS: Clopidogrel Bisulfate 75 MG TABLET PO (08:28)
[2020-07-30] MEDS: Amiodarone HCL 200 MG TABLET 400 MG PO ×2 (08:28→20:21)
[2020-07-30] MEDS: Cholecalciferol (Vitamin D3) 25 MCG TABLET PO (08:28)
[2020-07-30] MEDS: Aspirin Enteric Coated 81 MG TABLET.DR PO (08:29)
[2020-07-30] MEDS: Nicotine 14 MG PATCH.TD24 TRANSDERMA (08:29)
[2020-07-30] MEDS: amLODIPine Besylate 10 MG TABLET PO (08:29)
--- NOTE | 2020-07-30 10:41 | P.PNIM_ITS ---
Subjective Subjective Date of Service: 07/30/20 Interval History: seen and examined this AM talked with him at length about the prospects of amputation. he tells me that after discussion with surgery yesterday about this, he became nervous but has been thinking about it. he appears to be open to the idea and will be discussing with his and the surgeon again ROS General - no fevers or chills Cardiovascular - no chest pain Respiratory - no shortness of breath or cough Abdominal- no abdominal pain, nausea, vomiting, diarrhea Ext - no foot pain Physical Exam Vital Signs: Vital Signs: Last Vital Signs Temp 97.5 F 07/30/20 06:51 Pulse 72 07/30/20 06:51 Resp 20 07/30/20 06:51 BP 158/75 H 07/30/20 06:51 Pulse Ox 95 07/30/20 06:51 Body Mass Index 25.9 Const: Other: General - no acute distress, appears comfortable Cardiovascular - regular rate and rhythm, S1-S2 Lungs - normal respiratory effort, clear to auscultation bilaterally, no wheezing Abdomen - soft, nontender, no rebound or guarding Extremities - RLE erythema and swelling; see picture below for foot Neuro - awake and alert, no focal deficits Skin: Other: Objective Data Current Medications Generic Name Dose Route Start Last Admin Trade Name Freq PRN Reason Stop Dose Admin Acetaminophen 650 mg 07/24/20 19:18 Acetaminophen 325 Mg Tablet PO Q6H PRN Pain, Mild (Pain Scale 1-3) Acetaminophen 650 mg 07/28/20 13:12 Acetaminophen 325 Mg Tablet PO Q6H PRN Pain, Mild (Pain Scale 1-3) Amiodarone HCl 400 mg 07/26/20 21:00 07/30/20 08:28 Amiodarone Hcl 200 Mg Tablet PO 400 mg BID [facility] Administration Amlodipine Besylate 10 mg 07/25/20 09:00 07/30/20 08:29 Amlodipine Besylate 10 Mg Tablet PO 10 mg DAILY [facility] Administration Protocol Aspirin 81 mg 07/25/20 09:00 07/30/20 08:29 Aspirin Enteric Coated 81 Mg Tablet. PO 81 mg DAILY [facility] Administration Clopidogrel Bisulfate 75 mg 07/29/20 09:00 07/30/20 08:28 Clopidogrel Bisulfate 75 Mg Tablet PO 75 mg DAILY [facility] Administration Enoxaparin Sodium 40 mg 07/24/20 19:18 07/26/20 20:29 Enoxaparin Sodium 40 Mg/0.4 Ml Syringe SUBCUT 40 mg Q24H [facility] Administration Sodium Chloride 1,000 mls @ 100 mls/hr 07/28/20 09:15 07/30/20 02:42 Ns IVCONT 100 mls/hr .Q10H [facility] Administration Piperacillin Sod/Tazobactam 50 mls @ 100 mls/hr 07/28/20 20:00 07/30/20 08:59 Sod 3.375 gm/ Sodium Chloride IV Infused Q6H [facility] Infusion Vancomycin HCl 1,000 mg/ 270 mls @ 270 mls/hr 07/29/20 13:00 07/30/20 02:00 Sodium Chloride IV Infused Q12H [facility] Infusion Insulin Human Lispro 0 unit 07/24/20 21:00 07/30/20 07:45 Insulin Lispro 100 Unit/Ml 3 Ml Vial SUBCUT Not Given QIDACHS [facility] Protocol Nicotine 14 mg 07/25/20 11:00 07/30/20 08:29 Nicotine 14 Mg Patch.Td24 TRANSDERMA 14 mg DAILY [facility] Administration Non-Formulary Medication 1 drop 07/25/20 09:00 Timolol EYE-LEFT DAILY [facility] Ondansetron HCl 4 mg 07/24/20 19:18 Ondansetron Hcl 4 Mg/2 Ml Vial IVPUSH Q8H PRN Nausea and Vomiting Oxycodone HCl 5 mg 07/28/20 13:12 Oxycodone Hcl Immed Release 5 Mg Tablet PO Q4H PRN Pain, Moderate (Pain Scale 4-6 Pharmacy Consult 1 each 07/24/20 13:00 Consult Rx Vancomycin Dosing MISCELLANE DAILY PRN Consult order Pharmacy Consult 1 each 07/24/20 19:18 Consult Rx Vancomycin Dosing MISCELLANE DAILY PRN Consult order Sodium Chloride 3 ml 07/24/20 19:18 07/30/20 07:46 0.9 % Sodium Chloride Flush 3 Ml Syringe IVFLUSH Not Given QSHIFT [facility] Vitamin D 25 mcg 07/25/20 09:00 07/30/20 08:28 Cholecalciferol (Vitamin D3) 25 Mcg Tablet PO 25 mcg DAILY [facility] Administration Labs CBC & Chem 7: 07/29/20 05:54 07/29/20 05:54 Microbiology Microbiology Results: Microbiology 07/24/20 11:44 Blood - Venous Blood Culture - Final No growth after 5 days. 07/24/20 11:18 Blood - Venous Blood Culture - Final No growth after 5 days. 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 He is admitted for diabetic foot infection. 1. Sepsis present on admission due to diabetif foot infection sepsis resolved blood cx negative wound cx from I&D growing mixed jennifer + MRSA on vancomcyin and zosyn, continue the same for now 2. 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 Newly Diagnosed PAF remains in sinus on amiodarone will needs OAC, likely Eliquis -- will commence once decisions surrounding surgery have been make 4. PAD s/p RLE angio and angioplasty of the R anterior tibial artery was on aspirin before, plavix added -- likely d/c aspirin and use plavix once once OAC started (will confirm with vascular and cardiology) 5. DM sliding scale metformin on hold 6. HTN initially BP was on the softer side. Antihypertensives held. Norvasc started today. Monitor BP and consider added Lisinopril. 7. HyopNa likely hypovoluemic + due to HCTZ (has been discontinued) SNa normalized 5. 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 Radiological there is some reassurance as there is no large solid component developing. Outpatient surveillence with urology 6. Tobacco use NRT Full Code DVT pptx, Lovenox (was on hold for surgery, to resume today if patient decides against amputation)
[2020-07-30 11:08] LABS: Glucose, Whole Blood 110 mg/dL (60-115)
[2020-07-30 16:28] LABS: Glucose, Whole Blood 106 mg/dL (60-115)
--- NOTE | 2020-07-30 16:49 | P.PNGS_ITS ---
Subjective Subjective Date of Service: 07/30/20 Interval history: Denies any new complaints No events reported Physical Exam Vital Signs: Vital Signs: Last Vital Signs Temp 98.8 F 07/30/20 15:19 Pulse 66 07/30/20 15:19 Resp 18 07/30/20 15:19 BP 125/58 L 07/30/20 15:19 Pulse Ox 96 07/30/20 15:19 Body Mass Index 25.9 PT 17.1 SEC (10.8-13 .0) H 07/24/20 11:18 Const: General: comfortable and no acute distress Resp: Effort & Inspection: normal respiratory effort Cardio: Rhythm: regular rhythm GI: Palpation (GI): Soft to palpation Extrem: Other: Ulcer with eschar, plantar aspect of the big toe right foot extending approximately; big toe is discolored Progress Note: A&P Assessment and plan (1) Osteomyelitis of ankle or foot, right, acute: Status: Acute Assessment and Plan: Review of his MRI shows osteomyelitis of the proximal phalanx of the big toe. He has an ulcer as well the plantar aspect extending proximally with note of eschar I had multiple discussions with him and explained to him that it is unlikely for the ulcer to heal in view of the osteomyelitis. Furthermore, with extent of the infection I am not optimistic at all that prolonged IV antibiotic treatment will be beneficial. I again reviewed with him his options including amputation of the big toe at the metatarsal, or transmetatarsal amputation of the foot. I explained to him that amputation of the big toe may not allow closure of the w ound because of inadequate flap to the ulcer. He does not want to lose all his toes. As a matter of fact, he was hesitant about going for amputation of any of the toes but eventually, he says that he is okay to go ahead with amputation of the big toe. He understands that there is a risk of leaving an open wound that may heal by secondary intention. He understands that because of his peripheral vascular disease, there is a good chance of poor healing requiring further surgical intervention including more proximal amputation. I also had long discussion with Cathryn his with regards to the above plan. I will add him to the OR schedule for tomorrow for amputation of the big toe on the right Fall Risk Details Current Medications: Current Medications Generic Name Dose Route Start Last Admin Trade Name Freq PRN Reason Stop Dose Admin Acetaminophen 650 mg 07/24/20 19:18 Acetaminophen 325 Mg Tablet PO Q6H PRN Pain, Mild (Pain Scale 1-3) Acetaminophen 650 mg 07/28/20 13:12 Acetaminophen 325 Mg Tablet PO Q6H PRN Pain, Mild (Pain Scale 1-3) Amiodarone HCl 400 mg 07/26/20 21:00 07/30/20 08:28 Amiodarone Hcl 200 Mg Tablet PO 400 mg BID [facility] Administration Amlodipine Besylate 10 mg 07/25/20 09:00 07/30/20 08:29 Amlodipine Besylate 10 Mg Tablet PO 10 mg DAILY [facility] Administration Protocol Aspirin 81 mg 07/25/20 09:00 07/30/20 08:29 Aspirin Enteric Coated 81 Mg Tablet.Dr PO 81 mg DAILY [facility] Administration Clopidogrel Bisulfate 75 mg 07/29/20 09:00 07/30/20 08:28 Clopidogrel Bisulfate 75 Mg Tablet PO 75 mg DAILY [facility] Administration Enoxaparin Sodium 40 mg 07/24/20 19:18 07/26/20 20:29 Enoxaparin Sodium 40 Mg/0.4 Ml Syringe SUBCUT 40 mg Q24H [facility] Administration Sodium Chloride 1,000 mls @ 100 mls/hr 07/28/20 09:15 07/30/20 12:48 Ns IVCONT 100 mls/hr .Q10H [facility] Administration Piperacillin Sod/Tazobactam 50 mls @ 100 mls/hr 07/28/20 20:00 07/30/20 15:13 Sod 3.375 gm/ Sodium Chloride IV Infused Q6H [facility] Infusion Vancomycin HCl 1,000 mg/ 270 mls @ 270 mls/hr 07/29/20 13:00 07/30/20 16:30 Sodium Chloride IV Infused Q12H [facility] Infusion Insulin Human Lispro 0 unit 07/24/20 21:00 07/30/20 16:31 Insulin Lispro 100 Unit/Ml 3 Ml Vial SUBCUT Not Given QIDACHS [facility] Protocol Nicotine 14 mg 07/25/20 11:00 07/30/20 08:29 Nicotine 14 Mg Patch.Td24 TRANSDERMA 14 mg DAILY [facility] Administration Non-Formulary Medication 1 drop 07/25/20 09:00 Timolol EYE-LEFT DAILY [facility] Ondansetron HCl 4 mg 07/24/20 19:18 Ondansetron Hcl 4 Mg/2 Ml Vial IVPUSH Q8H PRN Nausea and Vomiting Oxycodone HCl 5 mg 07/28/20 13:12 Oxycodone Hcl Immed Release 5 Mg Tablet PO Q4H PRN Pain, Moderate (Pain Scale 4-6 Pharmacy Consult 1 each 07/24/20 13:00 Consult Rx Vancomycin Dosing MISCELLANE DAILY PRN Consult order Pharmacy Consult 1 each 07/24/20 19:18 Consult Rx Vancomycin Dosing MISCELLANE DAILY PRN Consult order Sodium Chloride 3 ml 07/24/20 19:18 07/30/20 16:32 0.9 % Sodium Chloride Flush 3 Ml Syringe IVFLUSH Not Given QSHIFT [facility] Vitamin D 25 mcg 07/25/20 09:00 07/30/20 08:28 Cholecalciferol (Vitamin D3) 25 Mcg Tablet PO 25 mcg DAILY [facility] Administration Time Spent With Patient Time: Total time spent is greater than 50% in coordination of care (as documented) at patient's floor/unit and/or counseling patient: Time with patient: Greater than 35 minutes
[2020-07-30 19:57] LABS: Glucose, Whole Blood 125 mg/dL (60-115)
--- NOTE | 2020-07-30 22:14 | PM.IDPN ---
Subjective Subjective Date of Service: 07/30/20 Interval History: he still has some swelling and blueness foot MRSA foot Objective Data Labs CBC & Chem 7: 07/29/20 05:54 07/29/20 05:54 Labs: Laboratory Results - last 24 hr 07/30/20 07/30/20 07/30/20 06:53 11:04 16:20 POC Glucose 101 110 106 07/30/20 19:50 POC Glucose 125 H Microbiology Microbiology Results: Microbiology 07/24/20 11:44 Blood - Venous Blood Culture - Final No growth after 5 days. 07/24/20 11:18 Blood - Venous Blood Culture - Final No growth after 5 days. 07/25/20 16:08 Foot - Abscess Gram Stain - Final 07/25/20 16:08 Foot - Abscess Routine Culture - Final Methicillin Res Staph Aureus Physical Exam Vital Signs: Vital Signs: Last Vital Signs Temp 98.7 F 07/30/20 19:09 Pulse 75 07/30/20 20:21 Resp 18 07/30/20 19:09 BP 139/60 07/30/20 20:21 Pulse Ox 96 07/30/20 19:09 Body Mass Index 25.9 Const: General: cooperative Resp: Effort & Inspection: normal respiratory effort Cardio: Rate: regular rate Rhythm: regular rhythm GI: Palpation (GI): Soft to palpation and nontender Extrem: Other: right foot blueness toe and erythema Assessment and Plan Assessment and plan (1) PAD (peripheral artery disease): Problem details: Plasty of right anterior tibial artery Dr. Oscar July 2020 Status: Acute (2) Type 2 diabetes mellitus with diabetic foot infection: Problem details: MRSA foot Still concern over foot salvage Status: Acute Assessment and Plan: Vancomycin May stop Zosyn F/u Vascular ?further surgery Time Spent With Patient Time: Total time spent is greater than 50% in coordination of care (as documented) at patient's floor/unit and/or counseling patient: Time with patient: 15 - 24 minutes
[2020-07-31] VITALS (9 sets, daily range): BP systolic 132–153; BP diastolic 61–82; PULSE 61–108; RESP 17–20; TEMP 36–36.8; O2SAT 94–97
[2020-07-31] MEDS: vancomycin HCL 1,000 MG in 0.9 % Sodium Chloride 250 ML 270 MG IV ×2 (01:08→13:25)
[2020-07-31] MEDS: 0.9 % Sodium Chloride 1,000 ML 100 ML IVCONT (01:08)
[2020-07-31 01:31] LABS: Vancomycin Trough 17.8 mcg/mL (10.0-20.0)
[2020-07-31 07:25] LABS: Glucose, Whole Blood 100 mg/dL (60-115)
[2020-07-31 08:00] LABS: Anion Gap 14 (12-20); Blood Urea Nitrogen 11 mg/dL (9-16); Calcium 7.9 mg/dL (8.4-10.2); Carbon Dioxide 23 mmol/L (22-29); Chloride 104 mmol/L (96-108); Creatinine Clr Calc Pharmacy 81.4; Estimated Glomerular Filt Rate > 60; Glucose Random 101 mg/dL (60-115); Potassium 4.9 mmol/L (3.3-5.1); Sodium 136 mmol/L (135-145)
[2020-07-31] MEDS: Nicotine 14 MG PATCH.TD24 TRANSDERMA (08:26)
[2020-07-31] MEDS: Amiodarone HCL 200 MG TABLET 400 MG PO ×3 (08:27→21:37)
[2020-07-31] MEDS: amLODIPine Besylate 10 MG TABLET PO (08:27)
[2020-07-31] MEDS: Metoprolol Tartrate 50 MG TABLET PO ×2 (09:18→21:38)
--- NOTE | 2020-07-31 10:41 | PM.PNCARD ---
Subjective Subjective Date of Service: 07/31/20 Interval history: He states that he feels okay. No specific cardiac complaints. Review of Systems Review of Systems Yes all other systems are reviewed and are negative Cardiovascular: Reports as per HPI, Reports no additional cardiovascular complaints, Denies acrocyanosis, Denies cool extremities, Denies painful fingertips, Denies chest pain, Denies chest pain at rest, Denies diaphoresis, Denies syncope, Denies irregular heart rhythm, Denies claudication, Denies leg edema, Denies lightheadedness, Denies palpitations and Denies dyspnea Respiratory: Denies dyspnea Denies syncope Endocrine: Denies palpitations Physical Exam Vital Signs: Last Vital Signs Temp 97.1 F 07/31/20 07:26 Pulse 108 H 07/31/20 07:26 Resp 17 07/31/20 07:26 BP 140/82 H 07/31/20 07:26 Pulse Ox 97 07/31/20 07:26 Body Mass Index 25.9 Const General: cooperative, comfortable and no acute distress Orientation/consciousness: patient oriented x3 HENMT Other: Unremarkable Neck Neck: Yes normal visual inspection Chest Chest palpation & inspection: normal inspection of the chest Resp Auscultation: clear to auscultation bilaterally, no crackles and no wheezes Cardio Jugular venous distension: no JVD Palpation: normal PMI Heart sounds: S1 normal heart sound present, S2 normal heart sound present, no gallops, no murmurs and no rubs GI Palpation (GI): Soft to palpation Back/Spine/Pelvis Other: unremarkable Skin General skin exam: no rashes or lesions noted Neuro General: patient oriented x3 Extrem Other: Right leg with redness and there is dressing on the foot. Psych Mental Status: mental status grossly normal Results Labs and Meds Result diagrams: 07/29/20 05:54 07/31/20 05:45 Lab results: Laboratory Results - last 24 hr 07/30/20 07/30/20 07/30/20 11:04 16:20 19:50 Sodium Potassium Chloride Carbon Dioxide Anion Gap BUN Creatinine Estim Creat Clear Calc Estimated GFR POC Glucose 110 106 125 H Random Glucose Calcium Vancomycin Trough 07/31/20 07/31/20 07/31/20 00:12 05:45 07:17 Sodium 136 Potassium 4.9 Chloride 104 Carbon Dioxide 23 Anion Gap 14 BUN 11 Creatinine 0.71 Estim Creat Clear Calc 81.4 Estimated GFR > 60 POC Glucose 100 Random Glucose 101 Calcium 7.9 L Vancomycin Trough 17.8 Progress Note: A&P Assessment and plan (1) Preoperative cardiovascular examination: Status: Acute (2) Atrial fibrillation with rapid ventricular response: Status: Acute (3) PAD (peripheral artery disease): Status: Acute Assessment and Plan: On telemetry, he is going in and out of atrial fibrillation. Clinically however, he has no symptoms. He has been on amiodarone for the last few days. Increase the dose to 400 mg t.i.d.. We can also add oral beta blockers. After discussion with anesthesia and surgery, may have to wait another day to get his rhythm under control before proceeding with metatarsal amputation. Fall Risk Details Current Medications: Current Medications Generic Name Dose Route Start Last Admin Trade Name Freq PRN Reason Stop Dose Admin Acetaminophen 650 mg 07/24/20 19:18 Acetaminophen 325 Mg Tablet PO Q6H PRN Pain, Mild (Pain Scale 1-3) Acetaminophen 650 mg 07/28/20 13:12 Acetaminophen 325 Mg Tablet PO Q6H PRN Pain, Mild (Pain Scale 1-3) Amiodarone HCl 400 mg 07/26/20 21:00 07/31/20 08:27 Amiodarone Hcl 200 Mg Tablet PO 400 mg BID PRAMOD Administration Amlodipine Besylate 10 mg 07/25/20 09:00 07/31/20 08:27 Amlodipine Besylate 10 Mg Tablet PO 10 mg DAILY PRAMOD Administration Protocol Aspirin 81 mg 07/25/20 09:00 07/31/20 08:18 Aspirin Enteric Coated 81 Mg Tablet.Dr PO Not Given DAILY PR[facility] Clopidogrel Bisulfate 75 mg 07/29/20 09:00 07/31/20 08:19 Clopidogrel Bisulfate 75 Mg Tablet PO Not Given DAILY [facility] Enoxaparin Sodium 40 mg 07/24/20 19:18 07/26/20 20:29 Enoxaparin Sodium 40 Mg/0.4 Ml Syringe SUBCUT 40 mg Q24H PRAMOD Administration Vancomycin HCl 1,000 mg/ 270 mls @ 270 mls/hr 07/29/20 13:00 07/31/20 02:51 Sodium Chloride IV Infused Q12H PRAMOD Infusion Insulin Human Lispro 0 unit 07/24/20 21:00 07/31/20 08:17 Insulin Lispro 100 Unit/Ml 3 Ml Vial SUBCUT Not Given QIDACHS [facility] Protocol Metoprolol Tartrate 50 mg 07/31/20 09:15 07/31/20 09:18 Metoprolol Tartrate 50 Mg Tablet PO 50 mg BID [facility] Administration Protocol Nicotine 14 mg 07/25/20 11:00 07/31/20 08:26 Nicotine 14 Mg Patch.Td24 TRANSDERMA 14 mg DAILY [facility] Administration Non-Formulary Medication 1 drop 07/25/20 09:00 Timolol EYE-LEFT DAILY [facility] Ondansetron HCl 4 mg 07/24/20 19:18 Ondansetron Hcl 4 Mg/2 Ml Vial IVPUSH Q8H PRN Nausea and Vomiting Oxycodone HCl 5 mg 07/28/20 13:12 Oxycodone Hcl Immed Release 5 Mg Tablet PO Q4H PRN Pain, Moderate (Pain Scale 4-6 Pharmacy Consult 1 each 07/24/20 13:00 Consult Rx Vancomycin Dosing MISCELLANE DAILY PRN Consult order Pharmacy Consult 1 each 07/24/20 19:18 Consult Rx Vancomycin Dosing MISCELLANE DAILY PRN Consult order Sodium Chloride 3 ml 07/24/20 19:18 07/31/20 08:18 0.9 % Sodium Chloride Flush 3 Ml Syringe IVFLUSH Not Given QSHIFT [facility] Vitamin D 25 mcg 07/25/20 09:00 07/31/20 08:27 Cholecalciferol (Vitamin D3) 25 Mcg Tablet PO Not Given DAILY [facility] Time Spent With Patient Time: Total time spent is greater than 50% in coordination of care (as documented) at patient's floor/unit and/or counseling patient: Time with patient: less than 15 minutes
[2020-07-31 11:26] LABS: Glucose, Whole Blood 94 mg/dL (60-115)
--- NOTE | 2020-07-31 12:41 | HO.PM.IMPN ---
Subjective Subjective Date of Service: 07/31/20 Interval History: seen and examined this AM was planned for amputation today but has been in and out of A. Fib with variable rates so procedure cancelled for today ROS General - no fevers or chills Cardiovascular - no chest pain Respiratory - no shortness of breath or cough Abdominal- no abdominal pain, nausea, vomiting, diarrhea Ext - no foot pain Physical Exam Vital Signs: Vital Signs: Last Vital Signs Temp 97.3 F 07/31/20 12:00 Pulse 61 07/31/20 12:00 Resp 18 07/31/20 12:00 BP 147/68 H 07/31/20 12:00 Pulse Ox 96 07/31/20 12:00 Body Mass Index 25.9 Const: Other: General - no acute distress, appears comfortable Cardiovascular - regular rate and rhythm, S1-S2 Lungs - normal respiratory effort, clear to auscultation bilaterally, no wheezing Abdomen - soft, nontender, no rebound or guarding Extremities - RLE erythema and swelling; see picture below for foot Neuro - awake and alert, no focal deficits Objective Data Current Medications Generic Name Dose Route Start Last Admin Trade Name Freq PRN Reason Stop Dose Admin Acetaminophen 650 mg 07/24/20 19:18 Acetaminophen 325 Mg Tablet PO Q6H PRN Pain, Mild (Pain Scale 1-3) Acetaminophen 650 mg 07/28/20 13:12 Acetaminophen 325 Mg Tablet PO Q6H PRN Pain, Mild (Pain Scale 1-3) Amiodarone HCl 400 mg 07/31/20 15:00 Amiodarone Hcl 200 Mg Tablet PO TID ON LICENSE OF [facility] Aspirin 81 mg 07/25/20 09:00 07/31/20 08:18 Aspirin Enteric Coated 81 Mg Tablet.Dr PO Not Given DAILY ON LICENSE OF [facility] Clopidogrel Bisulfate 75 mg 07/29/20 09:00 07/31/20 08:19 Clopidogrel Bisulfate 75 Mg Tablet PO Not Given DAILY ON LICENSE OF [facility] Enoxaparin Sodium 40 mg 07/24/20 19:18 07/26/20 20:29 Enoxaparin Sodium 40 Mg/0.4 Ml Syringe SUBCUT 40 mg Q24H ON LICENSE OF [facility] Administration Vancomycin HCl 1,000 mg/ 270 mls @ 270 mls/hr 07/29/20 13:00 07/31/20 02:51 Sodium Chloride IV Infused Q12H ON LICENSE OF [facility] Infusion Insulin Human Lispro 0 unit 07/24/20 21:00 07/31/20 12:35 Insulin Lispro 100 Unit/Ml 3 Ml Vial SUBCUT Not Given QIDACHS ON LICENSE OF [facility] Protocol Metoprolol Tartrate 50 mg 07/31/20 09:15 07/31/20 09:18 Metoprolol Tartrate 50 Mg Tablet PO 50 mg BID ON LICENSE OF [facility] Administration Protocol Nicotine 14 mg 07/25/20 11:00 07/31/20 08:26 Nicotine 14 Mg Patch.Td24 TRANSDERMA 14 mg DAILY [facility] OF [facility] Administration Non-Formulary Medication 1 drop 07/25/20 09:00 Timolol EYE-LEFT DAILY [facility] OF [facility] Ondansetron HCl 4 mg 07/24/20 19:18 Ondansetron Hcl 4 Mg/2 Ml Vial IVPUSH Q8H PRN Nausea and Vomiting Oxycodone HCl 5 mg 07/28/20 13:12 Oxycodone Hcl Immed Release 5 Mg Tablet PO Q4H PRN Pain, Moderate (Pain Scale 4-6 Pharmacy Consult 1 each 07/24/20 13:00 Consult Rx Vancomycin Dosing MISCELLANE DAILY PRN Consult order Pharmacy Consult 1 each 07/24/20 19:18 Consult Rx Vancomycin Dosing MISCELLANE DAILY PRN Consult order Sodium Chloride 3 ml 07/24/20 19:18 07/31/20 08:18 0.9 % Sodium Chloride Flush 3 Ml Syringe IVFLUSH Not Given QSHIFT ON LICENSE OF [facility] Vitamin D 25 mcg 07/25/20 09:00 07/31/20 08:27 Cholecalciferol (Vitamin D3) 25 Mcg Tablet PO Not Given DAILY ON LICENSE OF [facility] Labs CBC & Chem 7: 07/29/20 05:54 07/31/20 05:45 Microbiology Microbiology Results: Microbiology 07/24/20 11:44 Blood - Venous Blood Culture - Final No growth after 5 days. 07/24/20 11:18 Blood - Venous Blood Culture - Final No growth after 5 days. 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 He is admitted for diabetic foot infection. 1. Sepsis present on admission due to diabetic foot infection sepsis resolved blood cx negative wound cx growing MRSA 2. 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 Newly Diagnosed PAF was in sinus, but over last 12 hours has been in/out of A. Fib procedure held to control his rates Amio increased to 400mg TID, metoprolol 50mg BID added OAC once surgical procedures done 4. PAD s/p RLE angio and angioplasty of the R anterior tibial artery was on aspirin before, plavix added -- likely d/c aspirin and use plavix once once OAC started (will confirm with vascular and cardiology) 5. DM sliding scale metformin on hold 6. HTN metoprolol as above, will d/c norvasc to make room for this; lisinopril on hold, will restart as bp allows 7. HyopNa likely hypovoluemic + due to HCTZ (has been discontinued) SNa normalized 5. 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 Radiological there is some reassurance as there is no large solid component developing. Outpatient surveillence with urology 6. Tobacco use NRT Full Code DVT pptx, Lovenox
--- NOTE | 2020-07-31 15:38 | P.PNGS_ITS ---
Subjective Subjective Date of Service: 07/31/20 Interval history: No new complaints Reported to be in AFib on and off, Physical Exam Vital Signs: Vital Signs: Last Vital Signs Temp 96.8 F 07/31/20 15:02 Pulse 62 07/31/20 15:02 Resp 20 07/31/20 15:02 BP 132/61 07/31/20 15:02 Pulse Ox 96 07/31/20 15:02 Body Mass Index 25.9 Const: General: comfortable and no acute distress Resp: Effort & Inspection: normal respiratory effort GI: Palpation (GI): Soft to palpation and nontender Extrem: Other: Big toe discolored on the right, with an ulcer with eschar at the plantar aspect extending more proximally Progress Note: A&P Assessment and plan (1) Osteomyelitis of ankle or foot, right, acute: Status: Acute Assessment and Plan: He was scheduled to undergo amputation of right big toe today. However, after discussion with hospitalist, anesthesia, and log sawyer, it was decided to postpone the procedure because of his atrial fibrillation with occasional rapid ventricular rate We will reschedule this again tomorrow. I discussed this with the patient. He still understands the planned procedure as well as the risks, benefits, and alternatives. Again, he understands that because of some soft tissue necrosis on the plantar aspect, him for not be enough flap to cover the amputation site and that he may need intensive wound care to allow healing by secondary intention He does not want to proceed with a transmetatarsal amputation at this time Fall Risk Details Current Medications: Current Medications Generic Name Dose Route Start Last Admin Trade Name Freq PRN Reason Stop Dose Admin Acetaminophen 650 mg 07/24/20 19:18 Acetaminophen 325 Mg Tablet PO Q6H PRN Pain, Mild (Pain Scale 1-3) Acetaminophen 650 mg 07/28/20 13:12 Acetaminophen 325 Mg Tablet PO Q6H PRN Pain, Mild (Pain Scale 1-3) Amiodarone HCl 400 mg 07/31/20 15:00 Amiodarone Hcl 200 Mg Tablet PO TID [facility] Aspirin 81 mg 07/25/20 09:00 07/31/20 08:18 Aspirin Enteric Coated 81 Mg Tablet.Dr PO Not Given DAILY [facility] Clopidogrel Bisulfate 75 mg 07/29/20 09:00 07/31/20 08:19 Clopidogrel Bisulfate 75 Mg Tablet PO Not Given DAILY [facility] Enoxaparin Sodium 40 mg 07/24/20 19:18 07/26/20 20:29 Enoxaparin Sodium 40 Mg/0.4 Ml Syringe SUBCUT 40 mg Q24H [facility] Administration Vancomycin HCl 1,000 mg/ 270 mls @ 270 mls/hr 07/29/20 13:00 07/31/20 13:25 Sodium Chloride IV 270 mls/hr Q12H [facility] Administration Insulin Human Lispro 0 unit 07/24/20 21:00 07/31/20 12:35 Insulin Lispro 100 Unit/Ml 3 Ml Vial SUBCUT Not Given QIDACHS [facility] Protocol Metoprolol Tartrate 50 mg 07/31/20 09:15 07/31/20 09:18 Metoprolol Tartrate 50 Mg Tablet PO 50 mg BID [facility] Administration Protocol Nicotine 14 mg 07/25/20 11:00 07/31/20 08:26 Nicotine 14 Mg Patch.Td24 TRANSDERMA 14 mg DAILY [facility] Administration Non-Formulary Medication 1 drop 07/25/20 09:00 Timolol EYE-LEFT DAILY [facility] Ondansetron HCl 4 mg 07/24/20 19:18 Ondansetron Hcl 4 Mg/2 Ml Vial IVPUSH Q8H PRN Nausea and Vomiting Oxycodone HCl 5 mg 07/28/20 13:12 Oxycodone Hcl Immed Release 5 Mg Tablet PO Q4H PRN Pain, Moderate (Pain Scale 4-6 Pharmacy Consult 1 each 07/24/20 19:18 Consult Rx Vancomycin Dosing MISCELLANE DAILY PRN Consult order Sodium Chloride 3 ml 07/24/20 19:18 07/31/20 08:18 0.9 % Sodium Chloride Flush 3 Ml Syringe IVFLUSH Not Given QSHIFT [facility] Vitamin D 25 mcg 07/25/20 09:00 07/31/20 08:27 Cholecalciferol (Vitamin D3) 25 Mcg Tablet PO Not Given DAILY [facility] Time Spent With Patient Time: Total time spent is greater than 50% in coordination of care (as documented) at patient's floor/unit and/or counseling patient: Time with patient: 15 - 24 minutes
[2020-07-31 16:07] LABS: Glucose, Whole Blood 149 mg/dL (60-115)
[2020-07-31 20:02] LABS: Glucose, Whole Blood 120 mg/dL (60-115)
[2020-07-31 22:14] LABS: OBS Int Ctl Valid YES; OBS1 POSITIVE (NEGATIVE)
[2020-08-01] VITALS (17 sets, daily range): BP systolic 115–157; BP diastolic 51–76; PULSE 51–86; RESP 14–20; TEMP 35.9–36.8; O2SAT 93–99
--- NOTE | 2020-08-01 | ECG_ITS ---
Test Reason : PREOP Blood Pressure : / mmHG Vent. Rate : 059 BPM Atrial Rate : 059 BPM P-R Int : 162 ms QRS Dur : 086 ms QT Int : 516 ms P-R-T Axes : 035 035 039 degrees QTc Int : 510 ms Sinus bradycardia Prolonged QT Abnormal ECG When compared with ECG of 27-JUL-2020 10:31, QTc is slightly prolonged Referred By: Abdirizak Walter Electronically Signed By:ASA BATEMAN
[2020-08-01] MEDS: vancomycin HCL 1,000 MG in 0.9 % Sodium Chloride 250 ML 270 MG IV (01:33)
[2020-08-01] MEDS: 0.9 % Sodium Chloride Flush 3 ML SYRINGE IVFLUSH ×3 (01:33→16:11)
[2020-08-01 07:26] LABS: Glucose, Whole Blood 102 mg/dL (60-115)
[2020-08-01] MEDS: Amiodarone HCL 200 MG TABLET 400 MG PO ×2 (09:07→20:49)
[2020-08-01] MEDS: Metoprolol Tartrate 50 MG TABLET PO ×2 (09:07→20:50)
[2020-08-01] MEDS: Dextrose 5 % and 0.9 % NaCl 1,000 ML 50 ML IVCONT (09:13)
[2020-08-01 10:15] LABS: Hematocrit 32.9 % (42-52); Hemoglobin 10.8 g/dl (14.0-18.0); Mean Corpuscular HGB Conc 32.8 g/dl (31.0-36.0); Mean Corpuscular Hemoglobin 31.3 pg (27.0-33.0); Mean Corpuscular Volume 95.4 fL (80-98); Mean Platelet Volume 10.2 fL (9.4-12.4); Platelet Count 409 X10*3/uL (160-400); Red Blood Count 3.45 X10*6/uL (4.60-5.80); Red Cell Distribution Width 14.1 % (11.0-16.0); White Blood Count 13.1 X10*3/uL (4.8-10.8)
[2020-08-01 10:35] LABS: Anion Gap 14 (12-20); Blood Urea Nitrogen 16 mg/dL (9-16); Calcium 8.2 mg/dL (8.4-10.2); Carbon Dioxide 22 mmol/L (22-29); Chloride 103 mmol/L (96-108); Creatinine Clr Calc Pharmacy 77.1; Estimated Glomerular Filt Rate > 60; Glucose Random 101 mg/dL (60-115); Potassium 4.5 mmol/L (3.3-5.1); Sodium 134 mmol/L (135-145)
--- NOTE | 2020-08-01 11:08 | P.PNIM_ITS ---
Subjective Subjective Date of Service: 08/01/20 Interval History: seen and examined tele strip reviewed, no further bursts of a. fib noted over night remains controlled with NSR denies any new complaints ROS General - no fevers or chills Cardiovascular - no chest pain Respiratory - no shortness of breath or cough Abdominal- no abdominal pain, nausea, vomiting, diarrhea Physical Exam Vital Signs: Vital Signs: Last Vital Signs Temp 98 F 08/01/20 10:54 Pulse 54 08/01/20 10:54 Resp 20 08/01/20 10:54 BP 142/60 H 08/01/20 10:54 Pulse Ox 96 08/01/20 10:54 Body Mass Index 25.9 Const: Other: General - no acute distress, appears comfortable Cardiovascular - regular rate and rhythm, S1-S2 Lungs - normal respiratory effort, clear to auscultation bilaterally, no wheezing Abdomen - soft, nontender, no rebound or guarding Extremities - RLE erythema and swelling; wounds+ Neuro - awake and alert, no focal deficits Objective Data Current Medications Generic Name Dose Route Start Last Admin Trade Name Stefanie PRN Reason Stop Dose Admin Acetaminophen 650 mg 07/24/20 19:18 Acetaminophen 325 Mg Tablet PO Q6H PRN Pain, Mild (Pain Scale 1-3) Amiodarone HCl 400 mg 07/31/20 15:00 08/01/20 09:07 Amiodarone Hcl 200 Mg Tablet PO 400 mg TID PRAMOD Administration Aspirin 81 mg 07/25/20 09:00 08/01/20 09:08 Aspirin Enteric Coated 81 Mg Tablet.Dr PO Not Given DAILY [facility] Clopidogrel Bisulfate 75 mg 07/29/20 09:00 08/01/20 09:08 Clopidogrel Bisulfate 75 Mg Tablet PO Not Given DAILY [facility] Enoxaparin Sodium 40 mg 07/24/20 19:18 07/26/20 20:29 Enoxaparin Sodium 40 Mg/0.4 Ml Syringe SUBCUT 40 mg Q24H [facility] Administration Vancomycin HCl 1,000 mg/ 270 mls @ 270 mls/hr 07/29/20 13:00 08/01/20 04:03 Sodium Chloride IV Infused Q12H [facility] Infusion Dextrose/Sodium Chloride 1,000 mls @ 50 mls/hr 08/01/20 08:45 08/01/20 09:13 D5ns IVCONT 50 mls/hr .Q20H [facility] Administration Insulin Human Lispro 0 unit 07/24/20 21:00 08/01/20 08:52 Insulin Lispro 100 Unit/Ml 3 Ml Vial SUBCUT Not Given QIDACHS [facility] Protocol Metoprolol Tartrate 50 mg 07/31/20 09:15 08/01/20 09:07 Metoprolol Tartrate 50 Mg Tablet PO 50 mg BID [facility] Administration Protocol Nicotine 14 mg 07/25/20 11:00 08/01/20 09:08 Nicotine 14 Mg Patch.Td24 TRANSDERMA Not Given DAILY [facility] Ondansetron HCl 4 mg 07/24/20 19:18 Ondansetron Hcl 4 Mg/2 Ml Vial IVPUSH Q8H PRN Nausea and Vomiting Oxycodone HCl 5 mg 07/28/20 13:12 Oxycodone Hcl Immed Release 5 Mg Tablet PO Q4H PRN Pain, Moderate (Pain Scale 4-6 Sodium Chloride 3 ml 07/24/20 19:18 08/01/20 09:07 0.9 % Sodium Chloride Flush 3 Ml Syringe IVFLUSH 3 ml QSHIFT [facility] Administration Vitamin D 25 mcg 07/25/20 09:00 08/01/20 09:08 Cholecalciferol (Vitamin D3) 25 Mcg Tablet PO Not Given DAILY [facility] Labs CBC & Chem 7: 08/01/20 10:07 08/01/20 10:07 Microbiology Microbiology Results: Microbiology 07/24/20 11:44 Blood - Venous Blood Culture - Final No growth after 5 days. 07/24/20 11:18 Blood - Venous Blood Culture - Final No growth after 5 days. 07/25/20 16:08 Foot - Abscess Gram Stain - Final 07/25/20 16:08 Foot - Abscess Routine Culture - Final Methicillin Res Staph Aureus Assessment and Plan (1) Abscess of right foot: Status: Acute Assessment and Plan: This is a 75 yo M with a PMH Of DM who presented to the hospital with complaints of RLE pain of several days duration. He is admitted for diabetic foot infection. 1. Sepsis present on admission due to diabetic foot infection sepsis resolved blood cx negative wound cx growing MRSA 2. 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 Newly Diagnosed PAF no further a. fib bursts appreciated continue metoprolol 50mg bid and switch to amio 400mg bid will need oac -- to be determined post completion of surgical issues 4. PAD s/p RLE angio and angioplasty of the R anterior tibial artery was on aspirin before, plavix added -- likely d/c aspirin and use plavix alone once OAC started 5. DM sliding scale metformin on hold 6. HTN metoprolol as above, will d/c norvasc to make room for this; lisinopril on hold, will restart as bp allows 7. HyopNa likely hypovoluemic + due to HCTZ (has been discontinued) SNa normalized 5. 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 Radiological there is some reassurance as there is no large solid component developing. Outpatient surveillence with urology 6. Tobacco use NRT Full Code DVT pptx, Lovenox post surgery when okay
[2020-08-01 11:21] LABS: Glucose, Whole Blood 95 mg/dL (60-115)
[2020-08-01 12:49] LABS: Vancomycin Trough 19.3 mcg/mL (10.0-20.0)
--- NOTE | 2020-08-01 13:04 | HO.ANESPROP2 ---
[facility] Active Problems Active Problems: All Active Problems (Updated 07/31/20 @ 12:47 by Abdirizak Walter MD) Preoperative cardiovascular examination (Acute) Atrial fibrillation with rapid ventricular response (Acute) Abscess of right foot (Acute) PAD (peripheral artery disease) (Acute) Type 2 diabetes mellitus with diabetic foot infection (Acute) Type 2 diabetes mellitus with peripheral artery disease (Acute) Sepsis (Acute) Osteomyelitis of ankle or foot, right, acute (Acute) Left groin mass (Acute) Impacted cerumen of both ears (Acute) Colon cancer screening (Acute) Annual physical exam (Acute) Type 2 diabetes mellitus with hyperglycemia (Acute) Hypercholesterolemia (Acute) Asthma (Acute) Tobacco abuse (Acute) Hypertension (Acute) Coronary artery disease (Acute) Past Medical History Medical History Abscess of right foot Anxiety and depression Asthma Avascular necrosis of bone of hip Coronary artery disease Diabetic foot ulcer Diabetic nephropathy Diabetic neuropathy Diverticular disease Hypercholesterolemia Hypertension Osteomyelitis of toe Thrombocytopenia Tobacco abuse Tubular adenoma of colon Type 2 diabetes mellitus with hyperglycemia Vitamin D deficiency Family History Family History Father Diabetes Hypertension CVD (cardiovascular disease) Stroke Mother CVD (cardiovascular disease) Hypertension Cancer Sister No problems noted. Surgical History Surgical History Amputation finger History of cataract surgery History of surgery Social History Social History Household Members: Family Housing: House Alcohol intake: never Smoking Status: Light tobacco smoker Tobacco Type: Cigarette Cigarettes Per Day: 7 Advance Directives Date on File: 07/24/20 service: No Current occupational status: retired [employer] Allergies Allergy/AdvReac Type Severity Reaction Status Date / Time No Known Allergies Allergy Mild Verified 04/14/20 13:17 Active Medications: Current Medications Generic Name Dose Route Start Last Admin Trade Name Freq PRN Reason Stop Dose Admin Acetaminophen 650 mg 07/24/20 19:18 Acetaminophen 325 Mg Tablet PO Q6H PRN Pain, Mild (Pain Scale 1-3) Amiodarone HCl 400 mg 08/01/20 21:00 Amiodarone Hcl 200 Mg Tablet PO BID PRAMOD Aspirin 81 mg 07/25/20 09:00 08/01/20 09:08 Aspirin Enteric Coated 81 Mg Tablet.Dr LAWSON Not Given DAILY COUNT INCLUDES [facility] Clopidogrel Bisulfate 75 mg 07/29/20 09:00 08/01/20 09:08 Clopidogrel Bisulfate 75 Mg Tablet PO Not Given DAILY COUNT INCLUDES THE [facility] Enoxaparin Sodium 40 mg 07/24/20 19:18 07/26/20 20:29 Enoxaparin Sodium 40 Mg/0.4 Ml Syringe SUBCUT 40 mg Q24H PRAMOD Administration Vancomycin HCl 1,000 mg/ 270 mls @ 270 mls/hr 07/29/20 13:00 08/01/20 04:03 Sodium Chloride IV Infused Q12H PRAMOD Infusion Dextrose/Sodium Chloride 1,000 mls @ 50 mls/hr 08/01/20 08:45 08/01/20 09:13 D5ns IVCONT 50 mls/hr .Q20H COUNT INCLUDES THE [facility] Administration Insulin Human Lispro 0 unit 07/24/20 21:00 08/01/20 12:22 Insulin Lispro 100 Unit/Ml 3 Ml Vial SUBCUT Not Given QIDACHS COUNT INCLUDES THE [facility] Protocol Metoprolol Tartrate 50 mg 07/31/20 09:15 08/01/20 09:07 Metoprolol Tartrate 50 Mg Tablet PO 50 mg BID COUNT INCLUDES THE [facility] Administration Protocol Nicotine 14 mg 07/25/20 11:00 08/01/20 09:08 Nicotine 14 Mg Patch.[id number] TRANSDERMA Not Given DAILY COUNT INCLUDES [facility] Ondansetron HCl 4 mg 07/24/20 19:18 Ondansetron Hcl 4 Mg/2 Ml Vial IVPUSH Q8H PRN Nausea and Vomiting Oxycodone HCl 5 mg 07/28/20 13:12 Oxycodone Hcl Immed Release 5 Mg Tablet PO Q4H PRN Pain, Moderate (Pain Scale 4-6 Sodium Chloride 3 ml 07/24/20 19:18 08/01/20 09:07 0.9 % Sodium Chloride Flush 3 Ml Syringe IVFLUSH 3 ml QSHIFT COUNT INCLUDES THE [facility] Administration Vitamin D 25 mcg 07/25/20 09:00 08/01/20 09:08 Cholecalciferol (Vitamin D3) 25 Mcg Tablet PO Not Given DAILY COUNT INCLUDES [facility] Home Medications Medication Instructions Recorded Confirmed Last Taken Type aspirin 81 mg tablet,delayed 81 mg PO DAILY 04/14/20 07/24/20 07/23/20 History release atorvastatin 10 mg tablet 10 mg PO BEDTIME 04/14/20 07/24/20 07/23/20 History cholecalciferol (vitamin D3) 25 25 mcg PO DAILY 04/14/20 07/24/20 07/23/20 History mcg (1,000 unit) capsule metformin 500 mg tablet 500 mg PO BID 04/14/20 07/24/20 07/23/20 History timolol 0.25 % eye drops 1 drp OPHTHALMIC-LEFT DAILY 04/14/20 07/24/20 07/23/20 History hydrochlorothiazide 12.5 mg PO DAILY 07/24/20 07/24/20 07/23/20 History Exam Exam Date and Time: August 01, 2020 1304 Height,Weight and Vital Signs: Height 5 ft 7 in Weight 75.1 kg Last Vital Signs Temp 98 F 08/01/20 10:54 Pulse 54 08/01/20 10:54 Resp 20 08/01/20 10:54 BP 142/60 H 08/01/20 10:54 Pulse Ox 96 08/01/20 10:54 Pertinent Lab Results Pertinent Lab Results: Laboratory Tests 07/24/20 07/24/20 07/24/20 11:18 11:18 11:18 WBC 14.4 H RBC 3.33 L Hgb 10.7 L Hct 30.7 L MCV 92.2 MCH 32.1 MCHC 34.9 RDW 13.1 Plt Count 237 MPV 9.5 Immature Gran % (Auto) 0.7 H Neut % (Auto) 85.6 H Lymph % (Auto) 4.0 L [place] % (Auto) 9.3 Eos % (Auto) 0.1 Baso % (Auto) 0.3 Lymph # (Auto) 0.6 L [place] # (Auto) 1.3 H Eos # (Auto) 0.0 Baso # (Auto) 0.1 Abs Immat Gran (auto) 0.10 H Absolute Neuts (auto) 12.3 H Absolute Nucleated RBC 0.000 Nucleated RBC % (auto) 0.0 Smear Tech's Comments VERIFIED ESR PT INR Hold Blue Top Sodium 129 L Potassium 4.3 Chloride 94 L Carbon Dioxide 24 Anion Gap 15 BUN 17 H Creatinine 0.88 Estim Creat Clear Calc 71.0 Estimated GFR > 60 POC Glucose Random Glucose 105 Lactic Acid 2.0 Calcium 7.8 L Iron TIBC % Saturation Unsat Iron Binding Transferrin Ferritin 593 H Total Bilirubin 0.9 Direct Bilirubin AST 104 H ALT 74 H Alkaline Phosphatase 83 Lactate Dehydrogenase 224 Troponin I High Sens C-Reactive Protein 23.40 H Total Protein 5.8 L Albumin 2.8 L Procalcitonin Urine Color Urine Appearance Urine pH Ur Specific [place] Urine Protein Urine Glucose (UA) Urine Ketones Urine Blood Urine Nitrite Ur Leukocyte Esterase Urine RBC Urine WBC Ur Squamous Epith Cells [place] Crystals Urine Bacteria Stool Occult Blood Vancomycin Trough Coronavirus (PCR) Influenza Type A (PCR) Influenza Type B (PCR) RSV RNA Qual (PCR) 07/24/20 07/24/20 07/24/20 11:18 11:18 11:18 WBC RBC Hgb Hct MCV MCH MCHC RDW Plt Count MPV Immature Gran % (Auto) Neut % (Auto) Lymph % (Auto) [place] % (Auto) Eos % (Auto) Baso % (Auto) Lymph # (Auto) [place] # (Auto) Eos # (Auto) Baso # (Auto) Abs Immat Gran (auto) Absolute Neuts (auto) Absolute Nucleated RBC Nucleated RBC % (auto) Smear Tech's Comments ESR PT 17.1 H INR 1.4 H Hold Blue Top SEE NOTE Sodium Potassium Chloride Carbon Dioxide Anion Gap BUN Creatinine Estim Creat Clear Calc Estimated GFR POC Glucose Random Glucose Lactic Acid Calcium Iron TIBC % Saturation Unsat Iron Binding Transferrin Ferritin Total Bilirubin Direct Bilirubin AST ALT Alkaline Phosphatase Lactate Dehydrogenase Troponin I High Sens 15.6 C-Reactive Protein Total Protein Albumin Procalcitonin 0.38 Urine Color Urine Appearance Urine pH Ur Specific [place] Urine Protein Urine Glucose (UA) Urine Ketones Urine Blood Urine Nitrite Ur Leukocyte Esterase Urine RBC Urine WBC Ur Squamous Epith Cells [place] Crystals Urine Bacteria Stool Occult Blood Vancomycin Trough Coronavirus (PCR) Influenza Type A (PCR) Influenza Type B (PCR) RSV RNA Qual (PCR) 07/24/20 07/24/20 07/24/20 11:18 11:44 19:25 WBC RBC Hgb Hct MCV MCH MCHC RDW Plt Count MPV Immature Gran % (Auto) Neut % (Auto) Lymph % (Auto) [place] % (Auto) Eos % (Auto) Baso % (Auto) Lymph # (Auto) [place] # (Auto) Eos # (Auto) Baso # (Auto) Abs Immat Gran (auto) Absolute Neuts (auto) Absolute Nucleated RBC Nucleated RBC % (auto) Smear Tech's Comments ESR 93 H PT INR Hold Blue Top Sodium Potassium Chloride Carbon Dioxide Anion Gap BUN Creatinine Estim Creat Clear Calc Estimated GFR POC Glucose Random Glucose Lactic Acid Calcium Iron TIBC % Saturation Unsat Iron Binding Transferrin Ferritin Total Bilirubin Direct Bilirubin AST ALT Alkaline Phosphatase Lactate Dehydrogenase Troponin I High Sens C-Reactive Protein Total Protein Albumin Procalcitonin Urine Color YELLOW Urine Appearance HAZY Urine pH 6.0 Ur Specific [place] 1.010 Urine Protein NEG Urine Glucose (UA) NEG Urine Ketones NEG Urine Blood 2+ H Urine Nitrite NEG Ur Leukocyte Esterase NEG Urine RBC 1-4 Urine WBC 0-2 Ur Squamous Epith Cells TRACE [place] Crystals 3+ Urine Bacteria TRACE Stool Occult Blood Vancomycin Trough Coronavirus (PCR) NEGATIVE Influenza Type A (PCR) NEGATIVE Influenza Type B (PCR) NEGATIVE RSV RNA Qual (PCR) NEGATIVE 07/24/20 07/25/20 07/25/20 20:24 00:46 05:45 WBC 14.2 H RBC 3.15 L Hgb 9.9 L Hct 29.4 L MCV 93.3 MCH 31.4 MCHC 33.7 RDW 13.2 Plt Count 242 MPV 9.7 Immature Gran % (Auto) 1.2 H Neut % (Auto) 85.7 H Lymph % (Auto) 5.7 L [place] % (Auto) 6.9 Eos % (Auto) 0.1 Baso % (Auto) 0.4 Lymph # (Auto) 0.8 L [place] # (Auto) 1.0 Eos # (Auto) 0.0 Baso # (Auto) 0.1 Abs Immat Gran (auto) 0.17 H Absolute Neuts (auto) 12.2 H Absolute Nucleated RBC 0.000 Nucleated RBC % (auto) 0.0 Smear Tech's Comments ESR PT INR Hold Blue Top Sodium Potassium Chloride Carbon Dioxide Anion Gap BUN Creatinine Estim Creat Clear Calc Estimated GFR POC Glucose 81 115 Random Glucose Lactic Acid Calcium Iron TIBC % Saturation Unsat Iron Binding Transferrin Ferritin Total Bilirubin Direct Bilirubin AST ALT Alkaline Phosphatase Lactate Dehydrogenase Troponin I High Sens C-Reactive Protein Total Protein Albumin Procalcitonin Urine Color Urine Appearance Urine pH Ur Specific [place] Urine Protein Urine Glucose (UA) Urine Ketones Urine Blood Urine Nitrite Ur Leukocyte Esterase Urine RBC Urine WBC Ur Squamous Epith Cells [place] Crystals Urine Bacteria Stool Occult Blood Vancomycin Trough Coronavirus (PCR) Influenza Type A (PCR) Influenza Type B (PCR) RSV RNA Qual (PCR) 07/25/20 07/25/20 07/25/20 05:45 07:15 11:15 WBC RBC Hgb Hct MCV MCH MCHC RDW Plt Count MPV Immature Gran % (Auto) Neut % (Auto) Lymph % (Auto) [place] % (Auto) Eos % (Auto) Baso % (Auto) Lymph # (Auto) [place] # (Auto) Eos # (Auto) Baso # (Auto) Abs Immat Gran (auto) Absolute Neuts (auto) Absolute Nucleated RBC Nucleated RBC % (auto) Smear Tech's Comments ESR PT INR Hold Blue Top Sodium 131 L Potassium 4.0 Chloride 98 Carbon Dioxide 25 Anion Gap 12 BUN 14 Creatinine 0.76 Estim Creat Clear Calc 76.1 Estimated GFR > 60 POC Glucose 85 91 Random Glucose 85 Lactic Acid Calcium 7.5 L Iron TIBC % Saturation Unsat Iron Binding Transferrin Ferritin Total Bilirubin Direct Bilirubin AST ALT Alkaline Phosphatase Lactate Dehydrogenase Troponin I High Sens C-Reactive Protein Total Protein Albumin Procalcitonin Urine Color Urine Appearance Urine pH Ur Specific [place] Urine Protein Urine Glucose (UA) Urine Ketones Urine Blood Urine Nitrite Ur Leukocyte Esterase Urine RBC Urine WBC Ur Squamous Epith Cells Tal[place] Crystals Urine Bacteria Stool Occult Blood Vancomycin Trough Coronavirus (PCR) Influenza Type A (PCR) Influenza Type B (PCR) RSV RNA Qual (PCR) 07/25/20 07/25/20 07/26/20 15:21 20:17 06:31 WBC 13.6 H RBC 3.04 L Hgb 9.6 L Hct 28.4 L MCV 93.4 MCH 31.6 MCHC 33.8 RDW 13.3 Plt Count 239 MPV 9.9 Immature Gran % (Auto) Neut % (Auto) Lymph % (Auto) [place] % (Auto) Eos % (Auto) Baso % (Auto) Lymph # (Auto) [place] # (Auto) Eos # (Auto) Baso # (Auto) Abs Immat Gran (auto) Absolute Neuts (auto) Absolute Nucleated RBC 0.000 Nucleated RBC % (auto) 0.0 Smear Tech's Comments ESR PT INR Hold Blue Top Sodium Potassium Chloride Carbon Dioxide Anion Gap BUN Creatinine Estim Creat Clear Calc Estimated GFR POC Glucose 156 H 93 Random Glucose Lactic Acid Calcium Iron TIBC % Saturation Unsat Iron Binding Transferrin Ferritin Total Bilirubin Direct Bilirubin AST ALT Alkaline Phosphatase Lactate Dehydrogenase Troponin I High Sens C-Reactive Protein Total Protein Albumin Procalcitonin Urine Color Urine Appearance Urine pH Ur Specific [place] Urine Protein Urine Glucose (UA) Urine Ketones Urine Blood Urine Nitrite Ur Leukocyte Esterase Urine RBC Urine WBC Ur Squamous Epith Cells [place] Crystals Urine Bacteria Stool Occult Blood Vancomycin Trough Coronavirus (PCR) Influenza Type A (PCR) Influenza Type B (PCR) RSV RNA Qual (PCR) 07/26/20 07/26/20 07/26/20 06:31 07:30 11:18 WBC RBC Hgb Hct MCV MCH MCHC RDW Plt Count MPV Immature Gran % (Auto) Neut % (Auto) Lymph % (Auto) [place] % (Auto) Eos % (Auto) Baso % (Auto) Lymph # (Auto) [place] # (Auto) Eos # (Auto) Baso # (Auto) Abs Immat Gran (auto) Absolute Neuts (auto) Absolute Nucleated RBC Nucleated RBC % (auto) Smear Tech's Comments ESR PT INR Hold Blue Top Sodium 132 L Potassium 3.6 Chloride 100 Carbon Dioxide 21 L Anion Gap 15 BUN 14 Creatinine 0.71 Estim Creat Clear Calc 81.4 Estimated GFR > 60 POC Glucose 89 100 Random Glucose 89 Lactic Acid Calcium 7.5 L Iron TIBC % Saturation Unsat Iron Binding Transferrin Ferritin Total Bilirubin 1.2 H Direct Bilirubin 0.9 H AST 70 H ALT 58 H Alkaline Phosphatase 70 Lactate Dehydrogenase Troponin I High Sens C-Reactive Protein Total Protein 4.8 L Albumin 2.3 L Procalcitonin Urine Color Urine Appearance Urine pH Ur Specific [place] Urine Protein Urine Glucose (UA) Urine Ketones Urine Blood Urine Nitrite Ur Leukocyte Esterase Urine RBC Urine WBC Ur Squamous Epith Cells [place] Crystals Urine Bacteria Stool Occult Blood Vancomycin Trough Coronavirus (PCR) Influenza Type A (PCR) Influenza Type B (PCR) RSV RNA Qual (PCR) 07/26/20 07/26/20 07/27/20 16:14 20:09 06:10 WBC 11.5 H RBC 2.96 L Hgb 9.3 L Hct 27.5 L MCV 92.9 MCH 31.4 MCHC 33.8 RDW 13.4 Plt Count 255 MPV 10.1 Immature Gran % (Auto) Neut % (Auto) Lymph % (Auto) [place] % (Auto) Eos % (Auto) Baso % (Auto) Lymph # (Auto) [place] # (Auto) Eos # (Auto) Baso # (Auto) Abs Immat Gran (auto) Absolute Neuts (auto) Absolute Nucleated RBC 0.000 Nucleated RBC % (auto) 0.0 Smear Tech's Comments ESR PT INR Hold Blue Top Sodium Potassium Chloride Carbon Dioxide Anion Gap BUN Creatinine Estim Creat Clear Calc Estimated GFR POC Glucose 77 115 Random Glucose Lactic Acid Calcium Iron TIBC % Saturation Unsat Iron Binding Transferrin Ferritin Total Bilirubin Direct Bilirubin AST ALT Alkaline Phosphatase Lactate Dehydrogenase Troponin I High Sens C-Reactive Protein Total Protein Albumin Procalcitonin Urine Color Urine Appearance Urine pH Ur Specific [place] Urine Protein Urine Glucose (UA) Urine Ketones Urine Blood Urine Nitrite Ur Leukocyte Esterase Urine RBC Urine WBC Ur Squamous Epith Cells [place] Crystals Urine Bacteria Stool Occult Blood Vancomycin Trough Coronavirus (PCR) Influenza Type A (PCR) Influenza Type B (PCR) RSV RNA Qual (PCR) 07/27/20 07/27/20 07/27/20 06:10 06:10 07:11 WBC RBC Hgb Hct MCV MCH MCHC RDW Plt Count MPV Immature Gran % (Auto) Neut % (Auto) Lymph % (Auto) [place] % (Auto) Eos % (Auto) Baso % (Auto) Lymph # (Auto) [place] # (Auto) Eos # (Auto) Baso # (Auto) Abs Immat Gran (auto) Absolute Neuts (auto) Absolute Nucleated RBC Nucleated RBC % (auto) Smear Tech's Comments ESR PT INR Hold Blue Top Sodium 133 L Potassium 3.9 Chloride 100 Carbon Dioxide 23 Anion Gap 14 BUN 15 Creatinine 0.74 Estim Creat Clear Calc 78.1 Estimated GFR > 60 POC Glucose 86 Random Glucose 83 Lactic Acid Calcium 7.4 L Iron 25 L TIBC 117 L % Saturation 21 Unsat Iron Binding 92 Transferrin 77 L Ferritin 739 H Total Bilirubin 1.3 H Direct Bilirubin 1.0 H AST 70 H ALT 60 H Alkaline Phosphatase 73 Lactate Dehydrogenase Troponin I High Sens C-Reactive Protein Total Protein 4.9 L Albumin 2.3 L Procalcitonin Urine Color Urine Appearance Urine pH Ur Specific [place] Urine Protein Urine Glucose (UA) Urine Ketones Urine Blood Urine Nitrite Ur Leukocyte Esterase Urine RBC Urine WBC Ur Squamous Epith Cells [place] Crystals Urine Bacteria Stool Occult Blood Vancomycin Trough Coronavirus (PCR) Influenza Type A (PCR) Influenza Type B (PCR) RSV RNA Qual (PCR) 07/27/20 07/27/20 07/27/20 11:05 12:13 16:04 WBC RBC Hgb Hct MCV MCH MCHC RDW Plt Count MPV Immature Gran % (Auto) Neut % (Auto) Lymph % (Auto) [place] % (Auto) Eos % (Auto) Baso % (Auto) Lymph # (Auto) [place] # (Auto) Eos # (Auto) Baso # (Auto) Abs Immat Gran (auto) Absolute Neuts (auto) Absolute Nucleated RBC Nucleated RBC % (auto) Smear Tech's Comments ESR PT INR Hold Blue Top Sodium Potassium Chloride Carbon Dioxide Anion Gap BUN Creatinine Estim Creat Clear Calc Estimated GFR POC Glucose 97 119 H Random Glucose Lactic Acid Calcium Iron TIBC % Saturation Unsat Iron Binding Transferrin Ferritin Total Bilirubin Direct Bilirubin AST ALT Alkaline Phosphatase Lactate Dehydrogenase Troponin I High Sens C-Reactive Protein Total Protein Albumin Procalcitonin Urine Color Urine Appearance Urine pH Ur Specific [place] Urine Protein Urine Glucose (UA) Urine Ketones Urine Blood Urine Nitrite Ur Leukocyte Esterase Urine RBC Urine WBC Ur Squamous Epith Cells [place] Crystals Urine Bacteria Stool Occult Blood Vancomycin Trough 7.2 L Coronavirus (PCR) Influenza Type A (PCR) Influenza Type B (PCR) RSV RNA Qual (PCR) 07/27/20 07/28/20 07/28/20 19:46 05:32 05:32 WBC 12.5 H RBC 3.02 L Hgb 9.4 L Hct 28.1 L MCV 93.0 MCH 31.1 MCHC 33.5 RDW 13.5 Plt Count 305 MPV 10.3 Immature Gran % (Auto) Neut % (Auto) Lymph % (Auto) [place] % (Auto) Eos % (Auto) Baso % (Auto) Lymph # (Auto) [place] # (Auto) Eos # (Auto) Baso # (Auto) Abs Immat Gran (auto) Absolute Neuts (auto) Absolute Nucleated RBC 0.000 Nucleated RBC % (auto) 0.0 Smear Tech's Comments ESR PT INR Hold Blue Top Sodium 134 L Potassium 3.8 Chloride 102 Carbon Dioxide 22 Anion Gap 14 BUN 16 Creatinine 0.73 Estim Creat Clear Calc 79.2 Estimated GFR > 60 POC Glucose 128 H Random Glucose 125 H D Lactic Acid Calcium 7.6 L Iron TIBC % Saturation Unsat Iron Binding Transferrin Ferritin Total Bilirubin 0.9 Direct Bilirubin 0.6 H AST 48 H ALT 56 H Alkaline Phosphatase 78 Lactate Dehydrogenase Troponin I High Sens C-Reactive Protein Total Protein 5.0 L Albumin 2.3 L Procalcitonin Urine Color Urine Appearance Urine pH Ur Specific [place] Urine Protein Urine Glucose (UA) Urine Ketones Urine Blood Urine Nitrite Ur Leukocyte Esterase Urine RBC Urine WBC Ur Squamous Epith Cells [place] Crystals Urine Bacteria Stool Occult Blood Vancomycin Trough Coronavirus (PCR) Influenza Type A (PCR) Influenza Type B (PCR) RSV RNA Qual (PCR) 07/28/20 07/28/20 07/28/20 07:08 09:56 16:16 WBC RBC Hgb Hct MCV MCH MCHC RDW Plt Count MPV Immature Gran % (Auto) Neut % (Auto) Lymph % (Auto) [place] % (Auto) Eos % (Auto) Baso % (Auto) Lymph # (Auto) [place] # (Auto) Eos # (Auto) Baso # (Auto) Abs Immat Gran (auto) Absolute Neuts (auto) Absolute Nucleated RBC Nucleated RBC % (auto) Smear Tech's Comments ESR PT INR Hold Blue Top Sodium Potassium Chloride Carbon Dioxide Anion Gap BUN Creatinine Estim Creat Clear Calc Estimated GFR POC Glucose 125 H 124 H 84 Random Glucose Lactic Acid Calcium Iron TIBC % Saturation Unsat Iron Binding Transferrin Ferritin Total Bilirubin Direct Bilirubin AST ALT Alkaline Phosphatase Lactate Dehydrogenase Troponin I High Sens C-Reactive Protein Total Protein Albumin Procalcitonin Urine Color Urine Appearance Urine pH Ur Specific [place] Urine Protein Urine Glucose (UA) Urine Ketones Urine Blood Urine Nitrite Ur Leukocyte Esterase Urine RBC Urine WBC Ur Squamous Epith Cells [place] Crystals Urine Bacteria Stool Occult Blood Vancomycin Trough Coronavirus (PCR) Influenza Type A (PCR) Influenza Type B (PCR) RSV RNA Qual (PCR) 07/28/20 07/29/20 07/29/20 20:11 00:09 05:54 WBC RBC Hgb Hct MCV MCH MCHC RDW Plt Count MPV Immature Gran % (Auto) Neut % (Auto) Lymph % (Auto) [place] % (Auto) Eos % (Auto) Baso % (Auto) Lymph # (Auto) [place] # (Auto) Eos # (Auto) Baso # (Auto) Abs Immat Gran (auto) Absolute Neuts (auto) Absolute Nucleated RBC Nucleated RBC % (auto) Smear Tech's Comments ESR PT INR Hold Blue Top Sodium 135 Potassium 4.3 Chloride 104 Carbon Dioxide 24 Anion Gap 11 L BUN 12 Creatinine 0.72 Estim Creat Clear Calc 80.3 Estimated GFR > 60 POC Glucose 96 Random Glucose 88 Lactic Acid Calcium 7.5 L Iron TIBC % Saturation Unsat Iron Binding Transferrin Ferritin Total Bilirubin 1.0 Direct Bilirubin 0.6 H AST 36 ALT 43 H Alkaline Phosphatase 69 Lactate Dehydrogenase Troponin I High Sens C-Reactive Protein Total Protein 4.9 L Albumin 2.3 L Procalcitonin Urine Color Urine Appearance Urine pH Ur Specific [place] Urine Protein Urine Glucose (UA) Urine Ketones Urine Blood Urine Nitrite Ur Leukocyte Esterase Urine RBC Urine WBC Ur Squamous Epith Cells [place] Crystals Urine Bacteria Stool Occult Blood Vancomycin Trough 10.8 Coronavirus (PCR) Influenza Type A (PCR) Influenza Type B (PCR) RSV RNA Qual (PCR) 07/29/20 07/29/20 07/29/20 05:54 07:06 11:13 WBC 11.4 H RBC 2.87 L Hgb 9.2 L Hct 27.2 L MCV 94.8 MCH 32.1 MCHC 33.8 RDW 13.8 Plt Count 351 MPV 10.2 Immature Gran % (Auto) 1.3 H Neut % (Auto) 83.3 H Lymph % (Auto) 7.6 L [place] % (Auto) 6.3 Eos % (Auto) 1.1 Baso % (Auto) 0.4 Lymph # (Auto) 0.9 L [place] # (Auto) 0.7 Eos # (Auto) 0.1 Baso # (Auto) 0.1 Abs Immat Gran (auto) 0.15 H Absolute Neuts (auto) 9.5 H Absolute Nucleated RBC 0.000 Nucleated RBC % (auto) 0.0 Smear Tech's Comments ESR PT INR Hold Blue Top Sodium Potassium Chloride Carbon Dioxide Anion Gap BUN Creatinine Estim Creat Clear Calc Estimated GFR POC Glucose 86 110 Random Glucose Lactic Acid Calcium Iron TIBC % Saturation Unsat Iron Binding Transferrin Ferritin Total Bilirubin Direct Bilirubin AST ALT Alkaline Phosphatase Lactate Dehydrogenase Troponin I High Sens C-Reactive Protein Total Protein Albumin Procalcitonin Urine Color Urine Appearance Urine pH Ur Specific [place] Urine Protein Urine Glucose (UA) Urine Ketones Urine Blood Urine Nitrite Ur Leukocyte Esterase Urine RBC Urine WBC Ur Squamous Epith Cells [place] Crystals Urine Bacteria Stool Occult Blood Vancomycin Trough Coronavirus (PCR) Influenza Type A (PCR) Influenza Type B (PCR) RSV RNA Qual (PCR) 07/29/20 07/29/20 07/30/20 16:13 20:25 06:53 WBC RBC Hgb Hct MCV MCH MCHC RDW Plt Count MPV Immature Gran % (Auto) Neut % (Auto) Lymph % (Auto) [place] % (Auto) Eos % (Auto) Baso % (Auto) Lymph # (Auto) [place] # (Auto) Eos # (Auto) Baso # (Auto) Abs Immat Gran (auto) Absolute Neuts (auto) Absolute Nucleated RBC Nucleated RBC % (auto) Smear Tech's Comments ESR PT INR Hold Blue Top Sodium Potassium Chloride Carbon Dioxide Anion Gap BUN Creatinine Estim Creat Clear Calc Estimated GFR POC Glucose 108 96 101 Random Glucose Lactic Acid Calcium Iron TIBC % Saturation Unsat Iron Binding Transferrin Ferritin Total Bilirubin Direct Bilirubin AST ALT Alkaline Phosphatase Lactate Dehydrogenase Troponin I High Sens C-Reactive Protein Total Protein Albumin Procalcitonin Urine Color Urine Appearance Urine pH Ur Specific [place] Urine Protein Urine Glucose (UA) Urine Ketones Urine Blood Urine Nitrite Ur Leukocyte Esterase Urine RBC Urine WBC Ur Squamous Epith Cells Tal[place] Crystals Urine Bacteria Stool Occult Blood Vancomycin Trough Coronavirus (PCR) Influenza Type A (PCR) Influenza Type B (PCR) RSV RNA Qual (PCR) 07/30/20 07/30/20 07/30/20 11:04 16:20 19:50 WBC RBC Hgb Hct MCV MCH MCHC RDW Plt Count MPV Immature Gran % (Auto) Neut % (Auto) Lymph % (Auto) [place] % (Auto) Eos % (Auto) Baso % (Auto) Lymph # (Auto) [place] # (Auto) Eos # (Auto) Baso # (Auto) Abs Immat Gran (auto) Absolute Neuts (auto) Absolute Nucleated RBC Nucleated RBC % (auto) Smear Tech's Comments ESR PT INR Hold Blue Top Sodium Potassium Chloride Carbon Dioxide Anion Gap BUN Creatinine Estim Creat Clear Calc Estimated GFR POC Glucose 110 106 125 H Random Glucose Lactic Acid Calcium Iron TIBC % Saturation Unsat Iron Binding Transferrin Ferritin Total Bilirubin Direct Bilirubin AST ALT Alkaline Phosphatase Lactate Dehydrogenase Troponin I High Sens C-Reactive Protein Total Protein Albumin Procalcitonin Urine Color Urine Appearance Urine pH Ur Specific [place] Urine Protein Urine Glucose (UA) Urine Ketones Urine Blood Urine Nitrite Ur Leukocyte Esterase Urine RBC Urine WBC Ur Squamous Epith Cells Talc Crystals Urine Bacteria Stool Occult Blood Vancomycin Trough Coronavirus (PCR) Influenza Type A (PCR) Influenza Type B (PCR) RSV RNA Qual (PCR) 07/31/20 07/31/20 07/31/20 00:12 05:45 07:17 WBC RBC Hgb Hct MCV MCH MCHC RDW Plt Count MPV Immature Gran % (Auto) Neut % (Auto) Lymph % (Auto) [place] % (Auto) Eos % (Auto) Baso % (Auto) Lymph # (Auto) [place] # (Auto) Eos # (Auto) Baso # (Auto) Abs Immat Gran (auto) Absolute Neuts (auto) Absolute Nucleated RBC Nucleated RBC % (auto) Smear Tech's Comments ESR PT INR Hold Blue Top Sodium 136 Potassium 4.9 Chloride 104 Carbon Dioxide 23 Anion Gap 14 BUN 11 Creatinine 0.71 Estim Creat Clear Calc 81.4 Estimated GFR > 60 POC Glucose 100 Random Glucose 101 Lactic Acid Calcium 7.9 L Iron TIBC % Saturation Unsat Iron Binding Transferrin Ferritin Total Bilirubin Direct Bilirubin AST ALT Alkaline Phosphatase Lactate Dehydrogenase Troponin I High Sens C-Reactive Protein Total Protein Albumin Procalcitonin Urine Color Urine Appearance Urine pH Ur Specific [place] Urine Protein Urine Glucose (UA) Urine Ketones Urine Blood Urine Nitrite Ur Leukocyte Esterase Urine RBC Urine WBC Ur Squamous Epith Cells [place] Crystals Urine Bacteria Stool Occult Blood Vancomycin Trough 17.8 Coronavirus (PCR) Influenza Type A (PCR) Influenza Type B (PCR) RSV RNA Qual (PCR) 07/31/20 07/31/20 07/31/20 11:15 16:05 19:57 WBC RBC Hgb Hct MCV MCH MCHC RDW Plt Count MPV Immature Gran % (Auto) Neut % (Auto) Lymph % (Auto) [place] % (Auto) Eos % (Auto) Baso % (Auto) Lymph # (Auto) [place] # (Auto) Eos # (Auto) Baso # (Auto) Abs Immat Gran (auto) Absolute Neuts (auto) Absolute Nucleated RBC Nucleated RBC % (auto) Smear Tech's Comments ESR PT INR Hold Blue Top Sodium Potassium Chloride Carbon Dioxide Anion Gap BUN Creatinine Estim Creat Clear Calc Estimated GFR POC Glucose 94 149 H 120 H Random Glucose Lactic Acid Calcium Iron TIBC % Saturation Unsat Iron Binding Transferrin Ferritin Total Bilirubin Direct Bilirubin AST ALT Alkaline Phosphatase Lactate Dehydrogenase Troponin I High Sens C-Reactive Protein Total Protein Albumin Procalcitonin Urine Color Urine Appearance Urine pH Ur Specific [place] Urine Protein Urine Glucose (UA) Urine Ketones Urine Blood Urine Nitrite Ur Leukocyte Esterase Urine RBC Urine WBC Ur Squamous Epith Cells [place] Crystals Urine Bacteria Stool Occult Blood Vancomycin Trough Coronavirus (PCR) Influenza Type A (PCR) Influenza Type B (PCR) RSV RNA Qual (PCR) 07/31/20 08/01/20 08/01/20 21:50 07:07 10:07 WBC 13.1 H RBC 3.45 L D Hgb 10.8 L Hct 32.9 L D MCV 95.4 MCH 31.3 MCHC 32.8 RDW 14.1 Plt Count 409 H MPV 10.2 Immature Gran % (Auto) Neut % (Auto) Lymph % (Auto) [place] % (Auto) Eos % (Auto) Baso % (Auto) Lymph # (Auto) [place] # (Auto) Eos # (Auto) Baso # (Auto) Abs Immat Gran (auto) Absolute Neuts (auto) Absolute Nucleated RBC 0.000 Nucleated RBC % (auto) 0.0 Smear Tech's Comments ESR PT INR Hold Blue Top Sodium Potassium Chloride Carbon Dioxide Anion Gap BUN Creatinine Estim Creat Clear Calc Estimated GFR POC Glucose 102 Random Glucose Lactic Acid Calcium Iron TIBC % Saturation Unsat Iron Binding Transferrin Ferritin Total Bilirubin Direct Bilirubin AST ALT Alkaline Phosphatase Lactate Dehydrogenase Troponin I High Sens C-Reactive Protein Total Protein Albumin Procalcitonin Urine Color Urine Appearance Urine pH Ur Specific [place] Urine Protein Urine Glucose (UA) Urine Ketones Urine Blood Urine Nitrite Ur Leukocyte Esterase Urine RBC Urine WBC Ur Squamous Epith Cells [place] Crystals Urine Bacteria Stool Occult Blood POSITIVE Vancomycin Trough Coronavirus (PCR) Influenza Type A (PCR) Influenza Type B (PCR) RSV RNA Qual (PCR) 08/01/20 08/01/20 08/01/20 10:07 10:54 12:02 WBC RBC Hgb Hct MCV MCH MCHC RDW Plt Count MPV Immature Gran % (Auto) Neut % (Auto) Lymph % (Auto) [place] % (Auto) Eos % (Auto) Baso % (Auto) Lymph # (Auto) [place] # (Auto) Eos # (Auto) Baso # (Auto) Abs Immat Gran (auto) Absolute Neuts (auto) Absolute Nucleated RBC Nucleated RBC % (auto) Smear Tech's Comments ESR PT INR Hold Blue Top Sodium 134 L Potassium 4.5 Chloride 103 Carbon Dioxide 22 Anion Gap 14 BUN 16 Creatinine 0.75 Estim Creat Clear Calc 77.1 Estimated GFR > 60 POC Glucose 95 Random Glucose 101 Lactic Acid Calcium 8.2 L Iron TIBC % Saturation Unsat Iron Binding Transferrin Ferritin Total Bilirubin Direct Bilirubin AST ALT Alkaline Phosphatase Lactate Dehydrogenase Troponin I High Sens C-Reactive Protein Total Protein Albumin Procalcitonin Urine Color Urine Appearance Urine pH Ur Specific [place] Urine Protein Urine Glucose (UA) Urine Ketones Urine Blood Urine Nitrite Ur Leukocyte Esterase Urine RBC Urine WBC Ur Squamous Epith Cells [place] Crystals Urine Bacteria Stool Occult Blood Vancomycin Trough 19.3 Coronavirus (PCR) Influenza Type A (PCR) Influenza Type B (PCR) RSV RNA Qual (PCR) Airway Mallampati Class: II (poor dentition) TM Dist: >3cm Neck ROM: Full Loose/Missing/Broken Teeth: Yes Heart: RRR Lungs: CTA Assessment and Plan Assessment Anesthesia Assessment: Anesthesia Plan Discussed and Chart Reviewed Final Anesthetic Review NPO: Yes ASA Class: III Final Preanesthetic Review: Meds/Allgs Chart Reviewed, Consent Obtained/Reviewed and Anes Risks/Benef Reviewed Patient Risk: Intermediate Procedure Risk: Low Anesthetic Plan Anesthetic Plan: GA Disposition: Standard PACU
[2020-08-01 13:09] LABS: Glucose, Whole Blood 95 mg/dL (60-115)
--- NOTE | 2020-08-01 13:24 | P.PNCA_ITS ---
Subjective Subjective Date of Service: 08/01/20 Interval history: He states that he is doing okay. No specific cardiac complaints. Review of Systems Review of Systems Yes all other systems are reviewed and are negative Cardiovascular: Reports as per HPI, Reports no additional cardiovascular complaints, Denies acrocyanosis, Denies cool extremities, Denies painful fingertips, Denies chest pain, Denies chest pain at rest, Denies diaphoresis, Denies syncope, Denies irregular heart rhythm, Denies claudication, Denies leg edema, Denies lightheadedness, Denies palpitations and Denies dyspnea Respiratory: Denies dyspnea Denies syncope Endocrine: Denies palpitations Physical Exam Vital Signs: Last Vital Signs Temp 97.6 F 08/01/20 13:04 Pulse 56 08/01/20 13:04 Resp 18 08/01/20 13:04 BP 157/76 H 08/01/20 13:04 Pulse Ox 97 08/01/20 13:04 Body Mass Index 25.9 Const General: cooperative, comfortable and no acute distress Orientation/consciousness: patient oriented x3 HENMT Other: Unremarkable Neck Neck: Yes normal visual inspection Chest Chest palpation & inspection: normal inspection of the chest Resp Auscultation: clear to auscultation bilaterally, no crackles and no wheezes Cardio Jugular venous distension: no JVD Palpation: normal PMI Heart sounds: S1 normal heart sound present, S2 normal heart sound present, no gallops, no murmurs and no rubs GI Palpation (GI): Soft to palpation Back/Spine/Pelvis Other: unremarkable Skin General skin exam: no rashes or lesions noted Neuro General: patient oriented x3 Extrem Other: Right leg with redness and there is dressing on the foot. Psych Mental Status: mental status grossly normal Results Labs and Meds Result diagrams: 08/01/20 10:07 08/01/20 10:07 Lab results: Laboratory Results - last 24 hr 07/31/20 07/31/20 07/31/20 16:05 19:57 21:50 WBC RBC Hgb Hct MCV MCH MCHC RDW Plt Count MPV Absolute Nucleated RBC Nucleated RBC % (auto) Sodium Potassium Chloride Carbon Dioxide Anion Gap BUN Creatinine Estim Creat Clear Calc Estimated GFR POC Glucose 149 H 120 H Random Glucose Calcium Stool Occult Blood POSITIVE Vancomycin Trough 08/01/20 08/01/20 08/01/20 07:07 10:07 10:07 WBC 13.1 H RBC 3.45 L D Hgb 10.8 L Hct 32.9 L D MCV 95.4 MCH 31.3 MCHC 32.8 RDW 14.1 Plt Count 409 H MPV 10.2 Absolute Nucleated RBC 0.000 Nucleated RBC % (auto) 0.0 Sodium 134 L Potassium 4.5 Chloride 103 Carbon Dioxide 22 Anion Gap 14 BUN 16 Creatinine 0.75 Estim Creat Clear Calc 77.1 Estimated GFR > 60 POC Glucose 102 Random Glucose 101 Calcium 8.2 L Stool Occult Blood Vancomycin Trough 08/01/20 08/01/20 08/01/20 10:54 12:02 13:06 WBC RBC Hgb Hct MCV MCH MCHC RDW Plt Count MPV Absolute Nucleated RBC Nucleated RBC % (auto) Sodium Potassium Chloride Carbon Dioxide Anion Gap BUN Creatinine Estim Creat Clear Calc Estimated GFR POC Glucose 95 95 Random Glucose Calcium Stool Occult Blood Vancomycin Trough 19.3 Progress Note: A&P Assessment and plan (1) Preoperative cardiovascular examination: Status: Acute (2) Atrial fibrillation with rapid ventricular response: Status: Acute (3) PAD (peripheral artery disease): Status: Acute Assessment and Plan: On telemetry, he seems to be in sinus rhythm. No significant atrial fibrillation episodes. Continue amiodarone and beta-blockers. May proceed for metatarsal amputation surgery. Intermediate cardiac risk. Once surgery is completed and ok from surgeon, start Eliquis. Then stop Aspirin. Outpatient FU will be arranged. Fall Risk Details Current Medications: Current Medications Generic Name Dose Route Start Last Admin Trade Name Freq PRN Reason Stop Dose Admin Acetaminophen 650 mg 07/24/20 19:18 Acetaminophen 325 Mg Tablet PO Q6H PRN Pain, Mild (Pain Scale 1-3) Amiodarone HCl 400 mg 08/01/20 21:00 Amiodarone Hcl 200 Mg Tablet PO BID [facility] Aspirin 81 mg 07/25/20 09:00 08/01/20 09:08 Aspirin Enteric Coated 81 Mg Tablet. PO Not Given DAILY [facility] Clopidogrel Bisulfate 75 mg 07/29/20 09:00 08/01/20 09:08 Clopidogrel Bisulfate 75 Mg Tablet PO Not Given DAILY [facility] Enoxaparin Sodium 40 mg 07/24/20 19:18 07/26/20 20:29 Enoxaparin Sodium 40 Mg/0.4 Ml Syringe SUBCUT 40 mg Q24H [facility] Administration Dextrose/Sodium Chloride 1,000 mls @ 50 mls/hr 08/01/20 08:45 08/01/20 09:13 D5ns IVCONT 50 mls/hr .Q20H [facility]AMOD Administration Insulin Human Lispro 0 unit 07/24/20 21:00 08/01/20 12:22 Insulin Lispro 100 Unit/Ml 3 Ml Vial SUBCUT Not Given QIDACHS [facility] Protocol Metoprolol Tartrate 50 mg 07/31/20 09:15 08/01/20 09:07 Metoprolol Tartrate 50 Mg Tablet PO 50 mg BID [facility] Administration Protocol Nicotine 14 mg 07/25/20 11:00 08/01/20 09:08 Nicotine 14 Mg Patch.Td24 TRANSDERMA Not Given DAILY [facility] Ondansetron HCl 4 mg 07/24/20 19:18 Ondansetron Hcl 4 Mg/2 Ml Vial IVPUSH Q8H PRN Nausea and Vomiting Oxycodone HCl 5 mg 07/28/20 13:12 Oxycodone Hcl Immed Release 5 Mg Tablet PO Q4H PRN Pain, Moderate (Pain Scale 4-6 Sodium Chloride 3 ml 07/24/20 19:18 08/01/20 09:07 0.9 % Sodium Chloride Flush 3 Ml Syringe IVFLUSH 3 ml QSHIFT [facility] Administration Vitamin D 25 mcg 07/25/20 09:00 08/01/20 09:08 Cholecalciferol (Vitamin D3) 25 Mcg Tablet PO Not Given DAILY [facility] Time Spent With Patient Time: Total time spent is greater than 50% in coordination of care (as documented) at patient's floor/unit and/or counseling patient: Time with patient: less than 15 minutes
--- NOTE | 2020-08-01 13:27 | MHC.SHP ---
Pre-Procedural Eval Section B Chief Complaint: , PVD RIGHT Allergies: Allergies Allergy/AdvReac Type Severity Reaction Status Date / Time No Known Allergies Allergy Mild Verified 04/14/20 13:17 Plan I have reviewed the history and physical and performed a pertinent physical examination on my patient. No changes have occurred unless specified.
--- NOTE | 2020-08-01 13:40 | PC.NURSE ---
Spoke w/ Pharmacist Claus, due to high vancomycin trough, order for pt ABX changed to 750mg from 1 gm and rescheduled from administration time of 1300 to 1700- no ABX to be given in the OR. Floor RN Shraddha also notified by Gamaliel Text.
--- NOTE | 2020-08-01 14:25 | P.OP_ITS ---
Operative Note Operative Note Date of Service: 08/01/20 Narrative: Preop diagnosis: Osteomyelitis of the big toe, right with abscess, and ulcer with necrosis Postop diagnosis: The same Procedure: Amputation of the big toe at the distal metatarsal Surgeon: Cuco Yu MD The patient is a 75-year-old male with a large ulcer on the plantar aspect of the big toe with some areas of necrotic eschar. MRI study showed osteomyelitis of the proximal phalanx along with abscess and possible septic arthritis. I had opened this area to drain the abscess last week. He underwent angioplasty with Dr. Oscar vascular surgery because of his peripheral vascular disease. I discussed with him the option of amputation because of the presence of osteomyelitis, abscess and necrotic ulcers. He initially was very hesitant about going ahead with any amputation. Eventually he decided to proceed with amputation only of the big toe. He understood that there was always the likelihood of failure of this amputation with the subsequent need for a more proximal amputation including a TMA or BKA. He was brought to the operating room placed supine on table under monitored anesthesia care. The right foot was prepped and draped in usual sterile fashion. A surgical time-out was done. Patient was receiving IV antibiotics in the med surge unit already. No additional antibiotics were given here in the OR. I marked the planned line of incision and then infiltrated this with lidocaine 1%. I made an incision on the skin starting from the 1st interphalangeal space following the markings proximally using a blade 15. This was extended around the big toe towards the plantar area and dorsally past the necrotic ulcers. I then used electrocautery to divide through the skin and soft tissue. I used the Mcdonough scissors to divide through the rest of the soft tissue to expose the distal meta tarsal. The ligaments were divided this is manner. I proceeded to then divide the rest of the soft tissue at the distal aspect of the him metatarsal and expose the distal metatarsal. I used a periosteal elevator to further define this distal metatarsal. I used a bone cutter to divide the metatarsal with generous margins beyond the joint. I then completed the dissection by dividing the ligaments attached to the toe with electrocautery as well as with Mcdonough scissors and this was sent as specimen. I then used a rongeur to remove sharp edges of the the divided metatarsal and used the bone file to further smoothen this. I applied bone wax and I copy he irrigated the area. I continued to debride some of the edges which appeared to be nonviable. However, there seemed to have some adequate blood supply based on oozing around the wound edges. Irrigation was repeated. I then proceeded to reoppose the deeper subcutaneous layer with Dexon 2-0 sutures. We then reapposed the skin flaps with nylon 2-0 sutures. Again, as anticipated, there was not enough skin to completely close the most distal aspect of the incision so this was left open with a skin gap. The underlying soft tissue however appeared healthy viable. I then proceeded to apply thick dressings with fluffy gauze. I wrapped the foot with Kerlix roll and Luis bandage. The procedure was then completed The patient tolerated procedure well. There were no immediate complications noted. Initial and final counts of sponges and instruments were correct. Estimated blood loss about 40 cc. The patient was awakened and then transferred to the recovery room with stable vital signs.
--- NOTE | 2020-08-01 14:33 | PM.OP ---
Brief Operative Note Date of Service: 08/01/20 Pre-op diagnosis: Osteomyelitis big toe , right, with necrotic ulcer Post-op diagnosis: same Procedure: Amputation of the big toe on the right foot at that metatarsal Surgeon: Cuco Yu MD Anesthesia: MAC and local Estimated blood loss (mL): 40 Pathology: other (Big toe right) Condition: stable Disposition: PACU
--- NOTE | 2020-08-01 15:22 | P.PNVS_ITS ---
Subjective Subjective Date of Service: 08/01/20 Patient reports: no new complaints and feels better Interval history: Patient seen and examined earlier this morning. He has undergone endovascular intervention with right anterior tibial plasty. He now presents for routine follow-up. He was actually scheduled for amputation yesterday. He has been intermittently in AFib. He is scheduled for today. He has had no interval issues. Physical Exam Vital Signs: Vital Signs: Last Vital Signs Temp 97.4 F 08/01/20 14:49 Pulse 53 08/01/20 15:03 Resp 16 08/01/20 15:03 BP 133/58 L 08/01/20 15:03 Pulse Ox 96 08/01/20 15:03 Body Mass Index 25.9 Const: General: cooperative, healthy appearing and no acute distress Orientation/consciousness: oriented to person, oriented to place and oriented to time HENMT: Head: Yes normal to inspection Neck: Carotids: no bruits Chest: Chest palpation & inspection: normal inspection of the chest Resp: Effort & Inspection: normal respiratory effort and able to speak in complete sentences Auscultation: clear to auscultation bilaterally Cardio: Rate: regular rate Heart sounds: S1 normal heart sound present and S2 normal heart sound present GI: Inspection: Yes normal to inspection Skin: General skin exam: no rashes or lesions noted Wounds: no wounds Neuro: General: oriented to person, oriented to place, oriented to time and C N's II-XI intact bilaterally Extrem: General: Yes normal to inspection, Yes full ROM and Yes no clubbing, cyanosis or edema Psych: Appearance: grossly normal and well kempt Speech and movement: Normal speech and movement present Affect: normal affect Progress Note: A&P Assessment and plan (1) PAD (peripheral artery disease): Status: Acute Assessment and Plan: Patient has nonhealing right great toe ulcer. He has undergone endovascular intervention. I do believe he is optimized from an arterial standpoint. Stable from a vascular perspective to undergo amputation. Should is cardiac issues stabilize I do believe General surgery will be performing the amputation. Thank you for allowing us to assist in his care. If there are any questions or concerns please do not hesitate to contact us. Fall Risk Details Current Medications: Current Medications Generic Name Dose Route Start Last Admin Trade Name Freq PRN Reason Stop Dose Admin Acetaminophen 650 mg 07/24/20 19:18 Acetaminophen 325 Mg Tablet PO Q6H PRN Pain, Mild (Pain Scale 1-3) Amiodarone HCl 400 mg 08/01/20 21:00 Amiodarone Hcl 200 Mg Tablet PO BID [facility] Aspirin 81 mg 07/25/20 09:00 08/01/20 09:08 Aspirin Enteric Coated 81 Mg Tablet.Dr PO Not Given DAILY [facility] Clopidogrel Bisulfate 75 mg 07/29/20 09:00 08/01/20 09:08 Clopidogrel Bisulfate 75 Mg Tablet PO Not Given DAILY [facility] Enoxaparin Sodium 40 mg 07/24/20 19:18 07/26/20 20:29 Enoxaparin Sodium 40 Mg/0.4 Ml Syringe SUBCUT 40 mg Q24H [facility] Administration Fentanyl 25 mcg 08/01/20 13:48 Fentanyl Citrate/Pf 100 Mcg/2 Ml Vial IVPUSH Q5M PRN Pain, Moderate (Pain Scale 4-6 Dextrose/Sodium Chloride 1,000 mls @ 50 mls/hr 08/01/20 08:45 08/01/20 09:13 D5ns IVCONT 50 mls/hr .Q20H [facility] Administration Vancomycin HCl 750 mg/ Sodium 265 mls @ 265 mls/hr 08/01/20 17:00 Chloride IV Q12H [facility] Insulin Human Lispro 0 unit 07/24/20 21:00 08/01/20 12:22 Insulin Lispro 100 Unit/Ml 3 Ml Vial SUBCUT Not Given QIDACHS [facility] Protocol Metoprolol Tartrate 50 mg 07/31/20 09:15 08/01/20 09:07 Metoprolol Tartrate 50 Mg Tablet PO 50 mg BID [facility] Administration Protocol Morphine Sulfate 2 mg 08/01/20 14:23 Morphine Sulfate 2 Mg/Ml Cartridge IVPUSH Q3H PRN Pain, Severe (Pain Scale 7-10) Nicotine 14 mg 07/25/20 11:00 08/01/20 09:08 Nicotine 14 Mg Patch.Td24 TRANSDERMA Not Given DAILY [facility] Ondansetron HCl 4 mg 07/24/20 19:18 Ondansetron Hcl 4 Mg/2 Ml Vial IVPUSH Q8H PRN Nausea and Vomiting Oxycodone HCl 5 mg 07/28/20 13:12 Oxycodone Hcl Immed Release 5 Mg Tablet PO Q4H PRN Pain, Moderate (Pain Scale 4-6 Oxycodone HCl 5 mg 08/01/20 13:48 Oxycodone Hcl Immed Release 5 Mg Tablet PO ONCE PRN Pain, Severe (Pain Scale 7-10) Oxycodone HCl 5 mg 08/01/20 14:21 Oxycodone Hcl Immed Release 5 Mg Tablet PO Q4H PRN Pain, Moderate (Pain Scale 4-6 Sodium Chloride 3 ml 07/24/20 19:18 08/01/20 09:07 0.9 % Sodium Chloride Flush 3 Ml Syringe IVFLUSH 3 ml QSHIFT [facility] Administration Vitamin D 25 mcg 07/25/20 09:00 08/01/20 09:08 Cholecalciferol (Vitamin D3) 25 Mcg Tablet PO Not Given DAILY [facility] Time Spent With Patient Time: Total time spent is greater than 50% in coordination of care (as documented) at patient's floor/unit and/or counseling patient: Time with patient: 15 - 24 minutes
--- NOTE | 2020-08-01 15:58 | PM.EVENT ---
Event Note Date of Service: 08/01/20 Event Note: seen postop underwent big toe amp right dressings dry stable VS wound care - pt as open area along incision due to inadequate skin coverage plan dressing change Tuesday keep leg elevated continue abx
[2020-08-01] MEDS: vancomycin HCL 750 MG in 0.9 % Sodium Chloride 250 ML 265 MG IV (16:23)
[2020-08-01 16:44] LABS: Glucose, Whole Blood 91 mg/dL (60-115)
[2020-08-01] MEDS: Enoxaparin Sodium 40 MG/0.4 ML SYRINGE SUBCUT (18:34)
[2020-08-01 20:05] LABS: Glucose, Whole Blood 164 mg/dL (60-115)
[2020-08-01] MEDS: Insulin Lispro 100 UNIT/ML 3 ML VIAL SUBCUT (20:48)
[2020-08-02] VITALS (10 sets, daily range): BP systolic 115–151; BP diastolic 51–71; PULSE 52–68; RESP 18–20; TEMP 36.2–37.2; O2SAT 93–99; BMI 26.6
[2020-08-02] MEDS: vancomycin HCL 750 MG in 0.9 % Sodium Chloride 250 ML 265 MG IV ×2 (04:19→18:05)
[2020-08-02 07:14] LABS: Hematocrit 28.9 % (42-52); Hemoglobin 9.5 g/dl (14.0-18.0); Mean Corpuscular HGB Conc 32.9 g/dl (31.0-36.0); Mean Corpuscular Hemoglobin 31.5 pg (27.0-33.0); Mean Corpuscular Volume 95.7 fL (80-98); Mean Platelet Volume 10.2 fL (9.4-12.4); Platelet Count 392 X10*3/uL (160-400); Red Blood Count 3.02 X10*6/uL (4.60-5.80); Red Cell Distribution Width 14.1 % (11.0-16.0); White Blood Count 15.9 X10*3/uL (4.8-10.8)
[2020-08-02 07:35] LABS: Anion Gap 14 (12-20); Blood Urea Nitrogen 18 mg/dL (9-16); Calcium 7.8 mg/dL (8.4-10.2); Carbon Dioxide 22 mmol/L (22-29); Chloride 103 mmol/L (96-108); Creatinine Clr Calc Pharmacy 71.4; Estimated Glomerular Filt Rate > 60; Glucose Random 110 mg/dL (60-115); Potassium 5.3 mmol/L (3.3-5.1); Sodium 134 mmol/L (135-145)
[2020-08-02 07:57] LABS: Glucose, Whole Blood 118 mg/dL (60-115)
[2020-08-02] MEDS: Aspirin Enteric Coated 81 MG TABLET.DR PO (08:36)
[2020-08-02] MEDS: Amiodarone HCL 200 MG TABLET 400 MG PO ×2 (08:36→21:06)
[2020-08-02] MEDS: Cholecalciferol (Vitamin D3) 25 MCG TABLET PO (08:36)
[2020-08-02] MEDS: 0.9 % Sodium Chloride Flush 3 ML SYRINGE IVFLUSH ×2 (08:37→21:05)
[2020-08-02] MEDS: Clopidogrel Bisulfate 75 MG TABLET PO (08:37)
--- NOTE | 2020-08-02 09:07 | PM.PNGS ---
Subjective Subjective Date of Service: 08/02/20 Interval history: Pod 1 s/p amputation of right great toe 08/01/2020. Patient is comfortable and denies any foot pain. He denies any concerns at this time. Physical Exam Vital Signs: Vital Signs: Last Vital Signs Temp 97.8 F 08/02/20 07:20 Pulse 60 08/02/20 08:36 Resp 18 08/02/20 07:20 BP 115/53 L 08/02/20 07:20 Pulse Ox 93 08/02/20 07:20 Body Mass Index 25.9 Const: General: cooperative, healthy appearing and comfortable Resp: Effort & Inspection: normal respiratory effort Extrem: Other: Dressing to right foot is clean, dry, and intact. No bleeding or discharge is identified. No cellulitis noted in lower extremity. Progress Note: A&P Assessment and plan (1) Abscess of right foot: Status: Acute Assessment and Plan: SP amputation right great toe pod 1. Patient tolerated the procedure well and his wounds remained clean and intact. I will changes dressings in the a.m.. Patient currently on vancomycin 750 mg IV q.12 hours. Fall Risk Details Current Medications: Current Medications Generic Name Dose Route Start Last Admin Trade Name Freq PRN Reason Stop Dose Admin Acetaminophen 650 mg 07/24/20 19:18 Acetaminophen 325 Mg Tablet PO Q6H PRN Pain, Mild (Pain Scale 1-3) Amiodarone HCl 400 mg 08/01/20 21:00 08/02/20 08:36 Amiodarone Hcl 200 Mg Tablet PO 400 mg BID [facility] Administration Aspirin 81 mg 07/25/20 09:00 08/02/20 08:36 Aspirin Enteric Coated 81 Mg Tablet. PO 81 mg DAILY [facility] Administration Clopidogrel Bisulfate 75 mg 07/29/20 09:00 08/02/20 08:37 Clopidogrel Bisulfate 75 Mg Tablet PO 75 mg DAILY [facility] Administration Enoxaparin Sodium 40 mg 07/24/20 19:18 08/01/20 18:34 Enoxaparin Sodium 40 Mg/0.4 Ml Syringe SUBCUT 40 mg Q24H [facility] Administration Fentanyl 25 mcg 08/01/20 13:48 Fentanyl Citrate/Pf 100 Mcg/2 Ml Vial IVPUSH Q5M PRN Pain, Moderate (Pain Scale 4-6 Dextrose/Sodium Chloride 1,000 mls @ 50 mls/hr 08/01/20 08:45 08/02/20 04:40 D5ns IVCONT Not Given .Q20H [facility] Vancomycin HCl 750 mg/ Sodium 265 mls @ 265 mls/hr 08/01/20 17:00 08/02/20 05:19 Chloride IV Infused Q12H [facility] Infusion Insulin Human Lispro 0 unit 07/24/20 21:00 08/02/20 08:36 Insulin Lispro 100 Unit/Ml 3 Ml Vial SUBCUT Not Given QIDACHS [facility] Protocol Metoprolol Tartrate 50 mg 07/31/20 09:15 08/02/20 08:37 Metoprolol Tartrate 50 Mg Tablet PO Not Given BID [facility] Protocol Morphine Sulfate 2 mg 08/01/20 14:23 Morphine Sulfate 2 Mg/Ml Cartridge IVPUSH Q3H PRN Pain, Severe (Pain Scale 7-10) Nicotine 14 mg 07/25/20 11:00 08/02/20 08:37 Nicotine 14 Mg Patch.Td24 TRANSDERMA Not Given DAILY [facility] Ondansetron HCl 4 mg 07/24/20 19:18 Ondansetron Hcl 4 Mg/2 Ml Vial IVPUSH Q8H PRN Nausea and Vomiting Oxycodone HCl 5 mg 07/28/20 13:12 Oxycodone Hcl Immed Release 5 Mg Tablet PO Q4H PRN Pain, Moderate (Pain Scale 4-6 Oxycodone HCl 5 mg 08/01/20 13:48 Oxycodone Hcl Immed Release 5 Mg Tablet PO ONCE PRN Pain, Severe (Pain Scale 7-10) Oxycodone HCl 5 mg 08/01/20 14:21 Oxycodone Hcl Immed Release 5 Mg Tablet PO Q4H PRN Pain, Moderate (Pain Scale 4-6 Sodium Chloride 3 ml 07/24/20 19:18 08/02/20 08:37 0.9 % Sodium Chloride Flush 3 Ml Syringe IVFLUSH 3 ml QSHIFT [facility] Administration Vitamin D 25 mcg 07/25/20 09:00 08/02/20 08:36 Cholecalciferol (Vitamin D3) 25 Mcg Tablet PO 25 mcg DAILY [facility] Administration Time Spent With Patient Time: Total time spent is greater than 50% in coordination of care (as documented) at patient's floor/unit and/or counseling patient: Time with patient: 15 - 24 minutes
[2020-08-02] MEDS: Dextrose 5 % and 0.9 % NaCl 1,000 ML 50 ML IVCONT (10:33)
--- NOTE | 2020-08-02 10:33 | HO.POSTANES ---
Post Anesthesia Evaluation Post Anesthesia Evaluation Vital Signs: Vital Signs Temp Pulse Resp BP Pulse Ox 08/02/20 08:36 60 08/02/20 07:20 97.8 F 60 18 115/53 L 93 08/02/20 04:00 97.9 F 52 18 120/51 L 95 08/01/20 23:34 98.2 F 59 18 129/63 98 Anesthesia: Monitored Mental Status: Awake Pain Control: Satisfactory Nausea/Vomiting: None Hydration: Adequate Anesthesia-Related Issues: No Anes. Related Issues
[2020-08-02 11:34] LABS: Glucose, Whole Blood 96 mg/dL (60-115)
--- NOTE | 2020-08-02 13:27 | P.PNIM_ITS ---
Subjective Subjective Date of Service: 08/02/20 <Deborah Lopez NP - Last Filed: 08/02/20 14:17> 08/02/20 <Zuri Franklin MD - Last Filed: 08/02/20 15:25> Interval History: Follow up s/p great toe amputation. No pain. <Deborah Lopez NP - Last Filed: 08/02/20 14:17> Physical Exam Vital Signs: Vital Signs: Last Vital Signs Temp 97.1 F 08/02/20 11:16 Pulse 60 08/02/20 11:16 Resp 20 08/02/20 11:16 BP 134/63 08/02/20 11:16 Pulse Ox 99 08/02/20 11:16 Body Mass Index 25.9 <Deborah Lopez NP - Last Filed: 08/02/20 14:17> Appearing in no acute distress lung sounds are clear to auscultation heart regular rate rhythm, clear S1, S2 positive bowel sounds, abdomen is soft, nontender neuro patient is alert x3, no focal deficits Dry clean dressing to tigh foot <Deborah Lopez NP - Last Filed: 08/02/20 14:17> Objective Data Current Medications Generic Name Dose Route Start Last Admin Trade Name Freq PRN Reason Stop Dose Admin Acetaminophen 650 mg 07/24/20 19:18 Acetaminophen 325 Mg Tablet PO Q6H PRN Pain, Mild (Pain Scale 1-3) Amiodarone HCl 400 mg 08/01/20 21:00 08/02/20 08:36 Amiodarone Hcl 200 Mg Tablet PO 400 mg BID [facility] Administration Aspirin 81 mg 07/25/20 09:00 08/02/20 08:36 Aspirin Enteric Coated 81 Mg Tablet.Dr PO 81 mg DAILY [facility] Administration Clopidogrel Bisulfate 75 mg 07/29/20 09:00 08/02/20 08:37 Clopidogrel Bisulfate 75 Mg Tablet PO 75 mg DAILY [facility] Administration Enoxaparin Sodium 40 mg 07/24/20 19:18 08/01/20 18:34 Enoxaparin Sodium 40 Mg/0.4 Ml Syringe SUBCUT 40 mg Q24H [facility] Administration Fentanyl 25 mcg 08/01/20 13:48 Fentanyl Citrate/Pf 100 Mcg/2 Ml Vial IVPUSH Q5M PRN Pain, Moderate (Pain Scale 4-6 Dextrose/Sodium Chloride 1,000 mls @ 50 mls/hr 08/01/20 08:45 08/02/20 10:33 D5ns IVCONT 50 mls/hr .Q20H [facility] Administration Vancomycin HCl 750 mg/ Sodium 265 mls @ 265 mls/hr 08/01/20 17:00 08/02/20 05:19 Chloride IV Infused Q12H [facility] Infusion Insulin Human Lispro 0 unit 07/24/20 21:00 08/02/20 12:02 Insulin Lispro 100 Unit/Ml 3 Ml Vial SUBCUT Not Given QIDACHS [facility] Protocol Metoprolol Tartrate 50 mg 07/31/20 09:15 08/02/20 08:37 Metoprolol Tartrate 50 Mg Tablet PO Not Given BID [facility] Protocol Morphine Sulfate 2 mg 08/01/20 14:23 Morphine Sulfate 2 Mg/Ml Cartridge IVPUSH Q3H PRN Pain, Severe (Pain Scale 7-10) Nicotine 14 mg 07/25/20 11:00 08/02/20 08:37 Nicotine 14 Mg Patch.Td24 TRANSDERMA Not Given DAILY [facility] Ondansetron HCl 4 mg 07/24/20 19:18 Ondansetron Hcl 4 Mg/2 Ml Vial IVPUSH Q8H PRN Nausea and Vomiting Oxycodone HCl 5 mg 08/01/20 13:48 Oxycodone Hcl Immed Release 5 Mg Tablet PO ONCE PRN Pain, Severe (Pain Scale 7-10) Oxycodone HCl 5 mg 08/01/20 14:21 Oxycodone Hcl Immed Release 5 Mg Tablet PO Q4H PRN Pain, Moderate (Pain Scale 4-6 Sodium Chloride 3 ml 07/24/20 19:18 08/02/20 08:37 0.9 % Sodium Chloride Flush 3 Ml Syringe IVFLUSH 3 ml QSHIFT [facility] Administration Vitamin D 25 mcg 07/25/20 09:00 08/02/20 08:36 Cholecalciferol (Vitamin D3) 25 Mcg Tablet PO 25 mcg DAILY [facility] Administration <Deborah Lopez NP - Last Filed: 08/02/20 14:17> Labs CBC & Chem 7: : 08/02/20 06:07 08/02/20 06:07 <Deborah Lopez NP - Last Filed: 08/02/20 14:17> Microbiology Microbiology Results: Microbiology 07/24/20 11:44 Blood - Venous Blood Culture - Final No growth after 5 days. 07/24/20 11:18 Blood - Venous Blood Culture - Final No growth after 5 days. 07/25/20 16:08 Foot - Abscess Gram Stain - Final 07/25/20 16:08 Foot - Abscess Routine Culture - Final Methicillin Res Staph Aureus <Deborah Lopez NP - Last Filed: 08/02/20 14:17> Assessment and Plan (1) Abscess of right foot: Status: Acute <Deborah Lopez NP - Last Filed: 08/02/20 14:17> Assessment and Plan: [address] [address] Hospitalist - Progress NoteSigned Patient: Matheus Romo WMR#: [id number]: 3Acct:[id number]/Sex: 75 / MLoc:[id number]: Abdirizak Walter MD cc: ~ Subjective Subjective Date of Service: 08/01/20 Interval History: seen and examined tele strip reviewed, no further bursts of a. fib noted over night remains controlled with NSR denies any new complaints ROS General - no fevers or chills Cardiovascular - no chest pain Respiratory - no shortness of breath or cough Abdominal- no abdominal pain, nausea, vomiting, diarrhea Physical Exam Vital Signs: Vital Signs: Last Vital Signs Temp 98 F 08/01/20 10:54 Pulse 54 08/01/20 10:54 Resp 20 08/01/20 10:54 BP 142/60 H 08/01/20 10:54 Pulse Ox 96 08/01/20 10:54 Body Mass Index 25.9 Const: Other: General - no acute distress, appears comfortable Cardiovascular - regular rate and rhythm, S1-S2 Lungs - normal respiratory effort, clear to auscultation bilaterally, no wh eezing Abdomen - soft, nontender, no rebound or guarding Extremities - RLE erythema and swelling; wounds+ Neuro - awake and alert, no focal deficits Objective Data Current Medications Generic Name Dose Route Start Last Admin Trade Name Freq PRN Reason Stop Dose Admin Acetaminophen 650 mg 07/24/20 19:18 Acetaminophen 325 Mg Tablet PO Q6H PRN Pain, Mild (Pain Scale 1-3) Amiodarone HCl 400 mg 07/31/20 15:00 08/01/20 09:07 Amiodarone Hcl 200 Mg Tablet PO 400 mg TID [facility] Administration Aspirin 81 mg 07/25/20 09:00 08/01/20 09:08 Aspirin Enteric Coated 81 Mg Tablet.Dr PO Not Given DAILY [facility] Clopidogrel Bisulfate 75 mg 07/29/20 09:00 08/01/20 09:08 Clopidogrel Bisulfate 75 Mg Tablet PO Not Given DAILY [facility] Enoxaparin Sodium 40 mg 07/24/20 19:18 07/26/20 20:29 Enoxaparin Sodium 40 Mg/0.4 Ml Syringe SUBCUT 40 mg Q24H [facility] Administration Vancomycin HCl 1,000 mg/ 270 mls @ 270 mls/hr 07/29/20 13:00 08/01/20 04:03 Sodium Chloride IV Infused Q12H [facility] Infusion Dextrose/Sodium Chloride 1,000 mls @ 50 mls/hr 08/01/20 08:45 08/01/20 09:13 D5ns IVCONT 50 mls/hr .Q20H [facility] Administration Insulin Human Lispro 0 unit 07/24/20 21:00 08/01/20 08:52 Insulin Lispro 100 Unit/Ml 3 Ml Vial SUBCUT Not Given QIDACHS [facility] Protocol Metoprolol Tartrate 50 mg 07/31/20 09:15 08/01/20 09:07 Metoprolol Tartrate 50 Mg Tablet PO 50 mg BID [facility] Administration Protocol Nicotine 14 mg 07/25/20 11:00 08/01/20 09:08 Nicotine 14 Mg Patch.Td24 TRANSDERMA Not Given DAILY [facility] Ondansetron HCl 4 mg 07/24/20 19:18 Ondansetron Hcl 4 Mg/2 Ml Vial IVPUSH Q8H PRN Nausea and Vomiting Oxycodone HCl 5 mg 07/28/20 13:12 Oxycodone Hcl Immed Release 5 Mg Tablet PO Q4H PRN Pain, Moderate (Pain Scale 4-6 Sodium Chloride 3 ml 07/24/20 19:18 08/01/20 09:07 0.9 % Sodium Chloride Flush 3 Ml Syringe IVFLUSH 3 ml QSHIFT [facility] Administration Vitamin D 25 mcg 07/25/20 09:00 08/01/20 09:08 Cholecalciferol (Vitamin D3) 25 Mcg Tablet PO Not Given DAILY [facility] Labs CBC & Chem 7: 08/01/20 10:07 document embedded image 08/01/20 10:07 document embedded image Microbiology Microbiology Results:Microbiology 07/24/20 11:44 Blood - Venous Blood Culture - Final No growth after 5 days. 07/24/20 11:18 Blood - Venous Blood Culture - Final No growth after 5 days. 07/25/20 16:08 Foot - Abscess Gram Stain - Final 07/25/20 16:08 Foot - Abscess Routine Culture - Final Methicillin Res Staph Aureus This is a 75 yo M with a PMH Of DM who presented to the hospital with complaints of RLE pain of several days duration. He is admitted for diabetic foot infection. Diabetic Foot infection. MRSA in wound. 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 fib bursts appreciated continue metoprolol 50mg bid and switch to amio 400mg bid will need OAC. On Lovenox now. CHADSvasc 4. PAD s/p RLE angio and angioplasty of the R anterior tibial artery was on aspirin before, plavix added -- likely d/c aspirin and use plavix alone once OAC started, discuss with Vascular surgery Sepsis present on admission. Resolved. due to diabetic foot infection sepsis resolved blood cx negative wound cx growing MRSA HyopNa. MIld. 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 Radiological there is some reassurance as there is no large solid component developing. Outpatient surveillence with urology Tobacco use NRT DVT pptx, Lovenox post surgery when okay Attending: Dr. Franklin <Deborah Lopez NP - Last Filed: 08/02/20 14:17>
[2020-08-02 15:54] LABS: Glucose, Whole Blood 114 mg/dL (60-115)
[2020-08-02 17:19] LABS: Vancomycin Trough 16.2 mcg/mL (10.0-20.0)
[2020-08-02] MEDS: Enoxaparin Sodium 40 MG/0.4 ML SYRINGE SUBCUT (18:06)
[2020-08-02 20:49] LABS: Glucose, Whole Blood 103 mg/dL (60-115)
[2020-08-02] MEDS: Metoprolol Tartrate 50 MG TABLET PO (21:05)
[2020-08-03] VITALS (9 sets, daily range): BP systolic 131–173; BP diastolic 62–91; PULSE 54–98; RESP 16–20; TEMP 36.4–36.7; O2SAT 96–99
[2020-08-03] MEDS: vancomycin HCL 750 MG in 0.9 % Sodium Chloride 250 ML 265 MG IV ×2 (04:20→16:35)
[2020-08-03 07:36] LABS: Glucose, Whole Blood 94 mg/dL (60-115)
[2020-08-03] MEDS: Clopidogrel Bisulfate 75 MG TABLET PO (08:30)
[2020-08-03] MEDS: Metoprolol Tartrate 50 MG TABLET PO (08:30)
[2020-08-03] MEDS: Cholecalciferol (Vitamin D3) 25 MCG TABLET PO (08:30)
[2020-08-03] MEDS: Aspirin Enteric Coated 81 MG TABLET.DR PO (08:30)
[2020-08-03] MEDS: Amiodarone HCL 200 MG TABLET 400 MG PO ×2 (08:30→20:43)
[2020-08-03] MEDS: 0.9 % Sodium Chloride Flush 3 ML SYRINGE IVFLUSH ×3 (08:30→20:46)
[2020-08-03 08:43] LABS: MANUAL DIFF FLAG NO
[2020-08-03 08:57] LABS: Basophils Absolute Auto 0.1 X10*3/uL (0.0-0.2); Basophils Percent Auto 0.4 % (0-2); Eosinophils Absolute Auto 0.1 X10*3/uL (0.0-0.4); Eosinophils Percent Auto 0.8 % (0-4); Hematocrit 29.9 % (42-52); Hemoglobin 10.1 g/dl (14.0-18.0); Imm Gran Abs Auto 0.12 X10*3/uL (0.00-0.03); Imm Gran Pct Auto 0.8 % (0.0-0.4); Lymphocytes Percent Auto 7.1 % (20-40); Mean Corpuscular HGB Conc 33.8 g/dl (31.0-36.0); Mean Corpuscular Hemoglobin 31.9 pg (27.0-33.0); Mean Corpuscular Volume 94.3 fL (80-98); Mean Platelet Volume 10.1 fL (9.4-12.4); Monocytes Absolute Auto 0.7 X10*3/uL (0.1-1.2); Monocytes Percent Auto 4.9 % (2-11); Neutrophils Absolute Auto 12.2 X10*3/uL (2.0-8.3); Platelet Count 403 X10*3/uL (160-400); Red Blood Count 3.17 X10*6/uL (4.60-5.80); Red Cell Distribution Width 14.2 % (11.0-16.0); White Blood Count 14.2 X10*3/uL (4.8-10.8)
--- NOTE | 2020-08-03 09:00 | P.PNGS_ITS ---
Subjective Subjective Date of Service: 08/03/20 Interval history: Patient awake eating breakfast, denies any foot pain. Physical Exam Vital Signs: Vital Signs: Last Vital Signs Temp 98 F 08/03/20 08:00 Pulse 67 08/03/20 08:30 Resp 18 08/03/20 08:00 BP 169/77 H 08/03/20 08:30 Pulse Ox 96 08/03/20 08:00 Body Mass Index 26.6 Const: General: cooperative, healthy appearing, comfortable, no acute distress, well developed, alert and awake Resp: Effort & Inspection: normal respiratory effort GI: Inspection: Yes normal to inspection Skin: Other: Warm, dry, no rash Extrem: Other: Dressings changed the right foot. Slight erythema noted in the forefoot adjacent to the open wound a great toe. Small amount of bloody discharge noted but no purulence discharge. Dressings changed with Xeroform, fluff gauze, Brandon, and Luis bandage. The patient tolerated dressing change well. Progress Note: A&P Assessment and plan (1) Osteomyelitis of ankle or foot, right, acute: Status: Acute Assessment and Plan: Status post amputation of free great toe. Dressings changed today and wounds look clean with only small amount of erythema. Continue local care and antibiotics. Fall Risk Details Current Medications: Current Medications Generic Name Dose Route Start Last Admin Trade Name Freq PRN Reason Stop Dose Admin Acetaminophen 650 mg 07/24/20 19:18 Acetaminophen 325 Mg Tablet PO Q6H PRN Pain, Mild (Pain Scale 1-3) Amiodarone HCl 400 mg 08/01/20 21:00 08/03/20 08:30 Amiodarone Hcl 200 Mg Tablet PO 400 mg BID [facility] Administration Aspirin 81 mg 07/25/20 09:00 08/03/20 08:30 Aspirin Enteric Coated 81 Mg Tablet. PO 81 mg DAILY [facility] Administration Clopidogrel Bisulfate 75 mg 07/29/20 09:00 08/03/20 08:30 Clopidogrel Bisulfate 75 Mg Tablet PO 75 mg DAILY [facility] Administration Enoxaparin Sodium 40 mg 07/24/20 19:18 08/02/20 18:06 Enoxaparin Sodium 40 Mg/0.4 Ml Syringe SUBCUT 40 mg Q24H [facility] Administration Fentanyl 25 mcg 08/01/20 13:48 Fentanyl Citrate/Pf 100 Mcg/2 Ml Vial IVPUSH Q5M PRN Pain, Moderate (Pain Scale 4-6 Vancomycin HCl 750 mg/ Sodium 265 mls @ 265 mls/hr 08/01/20 17:00 08/03/20 05:22 Chloride IV Infused Q12H [facility] Infusion Insulin Human Lispro 0 unit 07/24/20 21:00 08/03/20 08:25 Insulin Lispro 100 Unit/Ml 3 Ml Vial SUBCUT Not Given QIDACHS [facility] Protocol Metoprolol Tartrate 50 mg 07/31/20 09:15 08/03/20 08:30 Metoprolol Tartrate 50 Mg Tablet PO 50 mg BID [facility] Administration Protocol Morphine Sulfate 2 mg 08/01/20 14:23 Morphine Sulfate 2 Mg/Ml Cartridge IVPUSH Q3H PRN Pain, Severe (Pain Scale 7-10) Nicotine 14 mg 07/25/20 11:00 08/03/20 08:30 Nicotine 14 Mg Patch.Td24 TRANSDERMA Not Given DAILY [facility] Ondansetron HCl 4 mg 07/24/20 19:18 Ondansetron Hcl 4 Mg/2 Ml Vial IVPUSH Q8H PRN Nausea and Vomiting Oxycodone HCl 5 mg 08/01/20 13:48 Oxycodone Hcl Immed Release 5 Mg Tablet PO ONCE PRN Pain, Severe (Pain Scale 7-10) Oxycodone HCl 5 mg 08/01/20 14:21 Oxycodone Hcl Immed Release 5 Mg Tablet PO Q4H PRN Pain, Moderate (Pain Scale 4-6 Sodium Chloride 3 ml 07/24/20 19:18 08/03/20 08:30 0.9 % Sodium Chloride Flush 3 Ml Syringe IVFLUSH 3 ml QSHIFT [facility] Administration Vitamin D 25 mcg 07/25/20 09:00 08/03/20 08:30 Cholecalciferol (Vitamin D3) 25 Mcg Tablet PO 25 mcg DAILY [facility] Administration Time Spent With Patient Time: Total time spent is greater than 50% in coordination of care (as documented) at patient's floor/unit and/or counseling patient: Time with patient: 15 - 24 minutes
[2020-08-03 09:25] LABS: Anion Gap 12 (12-20); Blood Urea Nitrogen 17 mg/dL (9-16); Carbon Dioxide 24 mmol/L (22-29); Chloride 100 mmol/L (96-108); Creatinine Clr Calc Pharmacy 70.5; Estimated Glomerular Filt Rate > 60; Glucose Random 127 mg/dL (60-115); Potassium 4.9 mmol/L (3.3-5.1); Sodium 131 mmol/L (135-145)
[2020-08-03 09:32] LABS: Calcium 8.2 mg/dL (8.4-10.2)
[2020-08-03 11:19] LABS: Glucose, Whole Blood 110 mg/dL (60-115)
--- NOTE | 2020-08-03 11:47 | P.PNIM_ITS ---
Subjective Subjective Date of Service: 08/03/20 <Deborah Lopez NP - Last Filed: 08/03/20 12:05> 08/03/20 <Zuri Franklin MD - Last Filed: 08/03/20 16:45> Interval History: Follow up right great toe amputation. No pain. oob to chair. <Deborah Lopez NP - Last Filed: 08/03/20 12:05> Physical Exam Vital Signs: Vital Signs: Last Vital Signs Temp 98 F 08/03/20 08:00 Pulse 67 08/03/20 08:30 Resp 18 08/03/20 08:00 BP 169/77 H 08/03/20 08:30 Pulse Ox 96 08/03/20 08:00 Body Mass Index 26.6 <Deborah Lopez NP - Last Filed: 08/03/20 12:05> Appearing in no acute distress lung sounds are clear to auscultation heart regular rate rhythm, clear S1, S2 positive bowel sounds, abdomen is soft, nontender neuro patient is alert x3, no focal deficits Skin. dressing changed today by general surgery. dressing clean, dry and intact <Deborah Lopez NP - Last Filed: 08/03/20 12:05> Objective Data Current Medications Generic Name Dose Route Start Last Admin Trade Name Freq PRN Reason Stop Dose Admin Acetaminophen 650 mg 07/24/20 19:18 Acetaminophen 325 Mg Tablet PO Q6H PRN Pain, Mild (Pain Scale 1-3) Amiodarone HCl 400 mg 08/01/20 21:00 08/03/20 08:30 Amiodarone Hcl 200 Mg Tablet PO 400 mg BID [facility] Administration Aspirin 81 mg 07/25/20 09:00 08/03/20 08:30 Aspirin Enteric Coated 81 Mg Tablet. PO 81 mg DAILY [facility] Administration Clopidogrel Bisulfate 75 mg 07/29/20 09:00 08/03/20 08:30 Clopidogrel Bisulfate 75 Mg Tablet PO 75 mg DAILY [facility] Administration Enoxaparin Sodium 40 mg 07/24/20 19:18 08/02/20 18:06 Enoxaparin Sodium 40 Mg/0.4 Ml Syringe SUBCUT 40 mg Q24H [facility] Administration Vancomycin HCl 750 mg/ Sodium 265 mls @ 265 mls/hr 08/01/20 17:00 08/03/20 05:22 Chloride IV Infused Q12H [facility] Infusion Insulin Human Lispro 0 unit 07/24/20 21:00 08/03/20 11:28 Insulin Lispro 100 Unit/Ml 3 Ml Vial SUBCUT Not Given QIDACHS [facility] Protocol Metoprolol Tartrate 50 mg 07/31/20 09:15 08/03/20 08:30 Metoprolol Tartrate 50 Mg Tablet PO 50 mg BID [facility] Administration Protocol Morphine Sulfate 2 mg 08/01/20 14:23 Morphine Sulfate 2 Mg/Ml Cartridge IVPUSH Q3H PRN Pain, Severe (Pain Scale 7-10) Nicotine 14 mg 07/25/20 11:00 08/03/20 08:30 Nicotine 14 Mg Patch.Td24 TRANSDERMA Not Given DAILY [facility] Ondansetron HCl 4 mg 07/24/20 19:18 Ondansetron Hcl 4 Mg/2 Ml Vial IVPUSH Q8H PRN Nausea and Vomiting Oxycodone HCl 5 mg 08/01/20 14:21 Oxycodone Hcl Immed Release 5 Mg Tablet PO Q4H PRN Pain, Moderate (Pain Scale 4-6 Sodium Chloride 3 ml 07/24/20 19:18 08/03/20 08:30 0.9 % Sodium Chloride Flush 3 Ml Syringe IVFLUSH 3 ml QSHIFT [facility] Administration Vitamin D 25 mcg 07/25/20 09:00 08/03/20 08:30 Cholecalciferol (Vitamin D3) 25 Mcg Tablet PO 25 mcg DAILY [facility] Administration <Deborah Lopez NP - Last Filed: 08/03/20 12:05> Labs CBC & Chem 7: : 08/03/20 08:23 08/03/20 08:23 <Deborah Lopez NP - Last Filed: 08/03/20 12:05> Microbiology Microbiology Results: Microbiology 07/24/20 11:44 Blood - Venous Blood Culture - Final No growth after 5 days. 07/24/20 11:18 Blood - Venous Blood Culture - Final No growth after 5 days. 07/25/20 16:08 Foot - Abscess Gram Stain - Final 07/25/20 16:08 Foot - Abscess Routine Culture - Final Methicillin Res Staph Aureus <Deborah Lopez NP - Last Filed: 08/03/20 12:05> Assessment and Plan (1) Osteomyelitis of ankle or foot, right, acute: Status: Acute <Deborah Lopez NP - Last Filed: 08/03/20 12:05> Assessment and Plan: This is a 75 yo M with a PMH Of DM who presented to the hospital with complaints of RLE pain of several days duration. He is admitted for diabetic foot infection. Diabetic Foot infection. MRSA in wound. 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 mild. likely hypovoluemic + due to HCTZ (has been discontinued) -Urine studies/lytes Newly Diagnosed PAF -no further a. fib bursts appreciated -continue metoprolol 50mg bid and switch to amio 400mg bid -Discussed with with general surgeon, will start Tianna Duggan. Stop aspirin, continue plavix. Diabetes -sliding scale -ADA diet PAD -s/p RLE angio and angioplasty of the R anterior tibial artery -stop aspirin and continue plavix Sepsis present on admission. Resolved. 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 Radiological there is some reassurance as there is no large solid component developing. Outpatient surveillence with urology Tobacco use NRT DVT pptx, Lovenox Attending: Dr. Franklin <Deborah Lopez NP - Last Filed: 08/03/20 12:05>
[2020-08-03 15:58] LABS: Glucose, Whole Blood 96 mg/dL (60-115)
[2020-08-03 19:50] LABS: Glucose, Whole Blood 126 mg/dL (60-115)
[2020-08-03 19:56] LABS: Osmolality Urine 510 mosm/kg (373-1093)
[2020-08-03 20:12] LABS: Potassium Urine Random 34.3 mmol/L
[2020-08-03] MEDS: Apixaban 5 MG TABLET PO (20:43)
[2020-08-04] VITALS (8 sets, daily range): BP systolic 141–180; BP diastolic 64–77; PULSE 52–65; RESP 18–20; TEMP 35.5–37; O2SAT 96–99
[2020-08-04 05:12] LABS: Vancomycin Trough 15.6 mcg/mL (10.0-20.0)
[2020-08-04] MEDS: vancomycin HCL 750 MG in 0.9 % Sodium Chloride 250 ML 265 MG IV ×2 (05:31→17:14)
[2020-08-04 07:22] LABS: Glucose, Whole Blood 94 mg/dL (60-115)
[2020-08-04] MEDS: 0.9 % Sodium Chloride Flush 3 ML SYRINGE IVFLUSH ×3 (09:00→20:33)
[2020-08-04] MEDS: Clopidogrel Bisulfate 75 MG TABLET PO (09:00)
[2020-08-04] MEDS: Metoprolol Tartrate 50 MG TABLET PO (09:00)
[2020-08-04] MEDS: Apixaban 5 MG TABLET PO ×2 (09:00→20:28)
[2020-08-04] MEDS: Amiodarone HCL 200 MG TABLET 400 MG PO ×2 (09:00→20:28)
[2020-08-04] MEDS: Nicotine 14 MG PATCH.TD24 TRANSDERMA (09:00)
[2020-08-04] MEDS: Cholecalciferol (Vitamin D3) 25 MCG TABLET PO (09:00)
--- NOTE | 2020-08-04 09:44 | HO.PM.IMPN ---
Subjective Subjective Date of Service: 08/04/20 <Deborah Lopez NP - Last Filed: 08/04/20 09:48> 08/04/20 <Abdirizak Walter MD - Last Filed: 08/04/20 15:38> Interval History: Follow up right great toe amputation. No pain. oob to chair. <Deborah Lopez NP - Last Filed: 08/04/20 09:48> Physical Exam Vital Signs: Vital Signs: Last Vital Signs Temp 97.9 F 08/04/20 07:16 Pulse 64 08/04/20 09:00 Resp 19 08/04/20 07:16 BP 157/70 H 08/04/20 09:00 Pulse Ox 98 08/04/20 07:16 Body Mass Index 26.6 <Deborah Lopez NP - Last Filed: 08/04/20 09:48> Appearing in no acute distress lung sounds are clear to auscultation heart regular rate rhythm, clear S1, S2 positive bowel sounds, abdomen is soft, nontender neuro patient is alert x3, no focal deficits Skin. dressing changed today by general surgery. dressing clean, dry and intact <Deborah Lopez NP - Last Filed: 08/04/20 09:48> Objective Data Current Medications Generic Name Dose Route Start Last Admin Trade Name Freq PRN Reason Stop Dose Admin Acetaminophen 650 mg 07/24/20 19:18 Acetaminophen 325 Mg Tablet PO Q6H PRN Pain, Mild (Pain Scale 1-3) Amiodarone HCl 400 mg 08/01/20 21:00 08/04/20 09:00 Amiodarone Hcl 200 Mg Tablet PO 400 mg BID PRAMOD Administration Apixaban 5 mg 08/03/20 21:00 08/04/20 09:00 Apixaban 5 Mg Tablet PO 5 mg BID PRAMOD Administration Clopidogrel Bisulfate 75 mg 07/29/20 09:00 08/04/20 09:00 Clopidogrel Bisulfate 75 Mg Tablet PO 75 mg DAILY PRAMOD Administration Vancomycin HCl 750 mg/ Sodium 265 mls @ 265 mls/hr 08/01/20 17:00 08/04/20 07:26 Chloride IV Infused Q12H PRAMOD Infusion Insulin Human Lispro 0 unit 07/24/20 21:00 08/04/20 07:38 Insulin Lispro 100 Unit/Ml 3 Ml Vial SUBCUT Not Given QIDACHS COUNT INCLUDES THE [facility] Protocol Metoprolol Tartrate 50 mg 07/31/20 09:15 08/04/20 09:00 Metoprolol Tartrate 50 Mg Tablet PO 50 mg BID PRAMOD Administration Protocol Morphine Sulfate 2 mg 08/01/20 14:23 Morphine Sulfate 2 Mg/Ml Cartridge IVPUSH Q3H PRN Pain, Severe (Pain Scale 7-10) Nicotine 14 mg 07/25/20 11:00 08/04/20 09:00 Nicotine 14 Mg Patch.Td24 TRANSDERMA 14 mg DAILY PRAMOD Administration Ondansetron HCl 4 mg 07/24/20 19:18 Ondansetron Hcl 4 Mg/2 Ml Vial IVPUSH Q8H PRN Nausea and Vomiting Oxycodone HCl 5 mg 08/01/20 14:21 Oxycodone Hcl Immed Release 5 Mg Tablet PO Q4H PRN Pain, Moderate (Pain Scale 4-6 Sodium Chloride 3 ml 07/24/20 19:18 08/04/20 09:00 0.9 % Sodium Chloride Flush 3 Ml Syringe IVFLUSH 3 ml QSHIFT PRAMOD Administration Vitamin D 25 mcg 07/25/20 09:00 08/04/20 09:00 Cholecalciferol (Vitamin D3) 25 Mcg Tablet PO 25 mcg DAILY PRAMOD Administration <Deborah Lopez NP - Last Filed: 08/04/20 09:48> Labs CBC & Chem 7: : 08/03/20 08:23 08/04/20 10:28 <Deborah Lopez NP - Last Filed: 08/04/20 09:48> Microbiology Microbiology Results: Microbiology 07/24/20 11:44 Blood - Venous Blood Culture - Final No growth after 5 days. 07/24/20 11:18 Blood - Venous Blood Culture - Final No growth after 5 days. 07/25/20 16:08 Foot - Abscess Gram Stain - Final 07/25/20 16:08 Foot - Abscess Routine Culture - Final Methicillin Res Staph Aureus <Deborah Lopez NP - Last Filed: 08/04/20 09:48> Assessment and Plan (1) Osteomyelitis of ankle or foot, right, acute: Status: Acute <Deborah Lopez NP - Last Filed: 08/04/20 09:48> Assessment and Plan: This is a 75 yo M with a PMH Of DM who presented to the hospital with complaints of RLE pain of several days duration. He is admitted for diabetic foot infection. Diabetic Foot infection. MRSA in wound. 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 mild. likely hypovoluemic + due to HCTZ (has been discontinued) -Urine studies/lytes Newly Diagnosed PAF -no further a. fib bursts appreciated -continue metoprolol 50mg bid and amio 400mg bid -Discussed with with general surgeon, will start Tianna Duggan. Stop aspirin, continue plavix. Diabetes -sliding scale -ADA diet PAD -s/p RLE angio and angioplasty of the R anterior tibial artery -stop aspirin and continue plavix Sepsis present on admission. Resolved. due to diabetic foot infection -blood cx negative -wound cx growing MRSA HTN -metoprolol as above Complex cyst R Kidney. Has been present on ultrasound since 2012 at least, now slightly increased. Radiological there is some reassurance as there is no large solid component developing. Outpatient surveillence with urology Tobacco use NRT DVT pptx, [place] Attending: Dr. Walter <Deborah Lopez NP - Last Filed: 08/04/20 09:48> (2) Type 2 diabetes mellitus with diabetic foot infection: Status: Acute <Deborah Lopez NP - Last Filed: 08/04/20 09:48> Assessment and Plan: Attending Attestation: Patient seen and examined independently and I was present during kurtz portion of E/M service. Agree with Jose E Lopez NP's history, physical, assessment, and plan. <Abdirizak Walter MD - Last Filed: 08/04/20 15:38>
--- NOTE | 2020-08-04 11:03 | PC.NURSE ---
Patient bradycardic to 49, Dr. Walter made aware.
[2020-08-04 11:09] LABS: Anion Gap 13 (12-20); Blood Urea Nitrogen 19 mg/dL (9-16); Calcium 8.2 mg/dL (8.4-10.2); Carbon Dioxide 26 mmol/L (22-29); Chloride 97 mmol/L (96-108); Creatinine Clr Calc Pharmacy 74.1; Estimated Glomerular Filt Rate > 60; Glucose Random 116 mg/dL (60-115); Potassium 4.6 mmol/L (3.3-5.1); Sodium 131 mmol/L (135-145)
[2020-08-04 11:29] LABS: Glucose, Whole Blood 101 mg/dL (60-115)
--- NOTE | 2020-08-04 11:38 | PM.PNGS ---
Subjective Subjective Date of Service: 08/04/20 Interval history: Out of bed, no complaints, denies any pain in right foot. Physical Exam Vital Signs: Vital Signs: Last Vital Signs Temp 96 F L 08/04/20 11:22 Pulse 52 08/04/20 11:22 Resp 20 08/04/20 11:22 BP 146/64 H 08/04/20 11:22 Pulse Ox 96 08/04/20 11:22 Body Mass Index 26.6 Const: General: no acute distress, alert and awake Extrem: Other: Dressing in place right foot, clean dry and intact. 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 Yu. Dressing change done yesterday. Would keep nonweightbearing right foot until wound is assessed again at dressing change tomorrow. Fall Risk Details Current Medications: Current Medications Generic Name Dose Route Start Last Admin Trade Name Freq PRN Reason Stop Dose Admin Acetaminophen 650 mg 07/24/20 19:18 Acetaminophen 325 Mg Tablet PO Q6H PRN Pain, Mild (Pain Scale 1-3) Amiodarone HCl 400 mg 08/01/20 21:00 08/04/20 09:00 Amiodarone Hcl 200 Mg Tablet PO 400 mg BID PRAMOD Administration Apixaban 5 mg 08/03/20 21:00 08/04/20 09:00 Apixaban 5 Mg Tablet PO 5 mg BID PRAMOD Administration Clopidogrel Bisulfate 75 mg 07/29/20 09:00 08/04/20 09:00 Clopidogrel Bisulfate 75 Mg Tablet PO 75 mg DAILY PRAMOD Administration Vancomycin HCl 750 mg/ Sodium 265 mls @ 265 mls/hr 08/01/20 17:00 08/04/20 07:26 Chloride IV Infused Q12H PRAMOD Infusion Insulin Human Lispro 0 unit 07/24/20 21:00 08/04/20 11:31 Insulin Lispro 100 Unit/Ml 3 Ml Vial SUBCUT Not Given QIDACHS PRAMOD Protocol Metoprolol Tartrate 50 mg 07/31/20 09:15 08/04/20 09:00 Metoprolol Tartrate 50 Mg Tablet PO 50 mg BID PRAMOD Administration Protocol Morphine Sulfate 2 mg 08/01/20 14:23 Morphine Sulfate 2 Mg/Ml Cartridge IVPUSH Q3H PRN Pain, Severe (Pain Scale 7-10) Nicotine 14 mg 07/25/20 11:00 08/04/20 09:00 Nicotine 14 Mg Patch.Td24 TRANSDERMA 14 mg DAILY PRAMOD Administration Ondansetron HCl 4 mg 07/24/20 19:18 Ondansetron Hcl 4 Mg/2 Ml Vial IVPUSH Q8H PRN Nausea and Vomiting Oxycodone HCl 5 mg 08/01/20 14:21 Oxycodone Hcl Immed Release 5 Mg Tablet PO Q4H PRN Pain, Moderate (Pain Scale 4-6 Sodium Chloride 3 ml 07/24/20 19:18 08/04/20 09:00 0.9 % Sodium Chloride Flush 3 Ml Syringe IVFLUSH 3 ml QSHIFT PRAMOD Administration Vitamin D 25 mcg 07/25/20 09:00 08/04/20 09:00 Cholecalciferol (Vitamin D3) 25 Mcg Tablet PO 25 mcg DAILY PRAMOD Administration Time Spent With Patient Time: Total time spent is greater than 50% in coordination of care (as documented) at patient's floor/unit and/or counseling patient: Time with patient: less than 15 minutes
[2020-08-04 17:09] LABS: Glucose, Whole Blood 94 mg/dL (60-115)
[2020-08-04 20:04] LABS: Glucose, Whole Blood 115 mg/dL (60-115)
[2020-08-05 03:40] VITALS: BP 131/61; PULSE 59; RESP 20; TEMP 36.4; O2SAT 96
[2020-08-05] MEDS: vancomycin HCL 750 MG in 0.9 % Sodium Chloride 250 ML 265 MG IV (06:00)
[2020-08-05 07:08] VITALS: BP 132/64; PULSE 58; RESP 20; TEMP 36.6; O2SAT 96
[2020-08-05 07:12] LABS: Glucose, Whole Blood 83 mg/dL (60-115)
[2020-08-05 08:20] VITALS: BP 133/65; PULSE 67
[2020-08-05] MEDS: Metoprolol Tartrate 50 MG TABLET PO (08:20)
[2020-08-05] MEDS: Cholecalciferol (Vitamin D3) 25 MCG TABLET PO (08:20)
[2020-08-05] MEDS: Amiodarone HCL 200 MG TABLET 400 MG PO (08:20)
[2020-08-05] MEDS: Apixaban 5 MG TABLET PO ×2 (08:20→20:38)
[2020-08-05] MEDS: Clopidogrel Bisulfate 75 MG TABLET PO (08:20)
[2020-08-05] MEDS: 0.9 % Sodium Chloride Flush 3 ML SYRINGE IVFLUSH ×3 (08:21→20:42)
[2020-08-05 11:08] VITALS: BP 146/65; PULSE 54; RESP 20; TEMP 36.1; O2SAT 95
[2020-08-05 11:15] LABS: Glucose, Whole Blood 95 mg/dL (60-115)
--- NOTE | 2020-08-05 11:44 | PM.PNGS ---
Subjective Subjective Date of Service: 08/05/20 Interval history: denies complaints no events reported Physical Exam Vital Signs: Vital Signs: Last Vital Signs Temp 97 F 08/05/20 11:08 Pulse 54 08/05/20 11:08 Resp 20 08/05/20 11:08 BP 146/65 H 08/05/20 11:08 Pulse Ox 95 08/05/20 11:08 Body Mass Index 26.6 Laboratory Results - last 24 hr 08/04/20 08/04/20 08/05/20 17:04 19:57 07:08 POC Glucose 94 115 83 08/05/20 11:07 POC Glucose 95 Const: General: comfortable and no acute distress GI: Palpation (GI): Soft to palpation and nontender Extrem: Other: right foot - amputation site clean, partially open due to inadequate skin coverage, good granulation tissue on open area, no pus, no gangrene Progress Note: A&P Assessment and plan (1) Osteomyelitis of ankle or foot, right, acute: Status: Acute Assessment and Plan: S/P amputation, right big toe amputation site clean - with open area due to inadequate skin coverage dressings changed - I placed wet to dry on open area wrapped foot in Kerlix and Luis no weight bearing on right foot daily wound care with Alginate dressings to open wound ok for PO abx ffup in office Fall Risk Details Current Medications: Current Medications Generic Name Dose Route Start Last Admin Trade Name Freq PRN Reason Stop Dose Admin Acetaminophen 650 mg 07/24/20 19:18 Acetaminophen 325 Mg Tablet PO Q6H PRN Pain, Mild (Pain Scale 1-3) Amiodarone HCl 400 mg 08/01/20 21:00 08/05/20 08:20 Amiodarone Hcl 200 Mg Tablet PO 400 mg BID PRAMOD Administration Apixaban 5 mg 08/03/20 21:00 08/05/20 08:20 Apixaban 5 Mg Tablet PO 5 mg BID PRAMOD Administration Clopidogrel Bisulfate 75 mg 07/29/20 09:00 08/05/20 08:20 Clopidogrel Bisulfate 75 Mg Tablet PO 75 mg DAILY PRAMOD Administration Vancomycin HCl 750 mg/ Sodium 265 mls @ 265 mls/hr 08/01/20 17:00 08/05/20 07:16 Chloride IV Infused Q12H PRAMOD Infusion Insulin Human Lispro 0 unit 07/24/20 21:00 08/05/20 08:09 Insulin Lispro 100 Unit/Ml 3 Ml Vial SUBCUT Not Given QIDACHS [facility] [place] Protocol Metoprolol Tartrate 50 mg 07/31/20 09:15 08/05/20 08:20 Metoprolol Tartrate 50 Mg Tablet PO 50 mg BID PRAMOD Administration Protocol Morphine Sulfate 2 mg 08/01/20 14:23 Morphine Sulfate 2 Mg/Ml Cartridge IVPUSH Q3H PRN Pain, Severe (Pain Scale 7-10) Nicotine 14 mg 07/25/20 11:00 08/05/20 08:21 Nicotine 14 Mg Patch.Td24 TRANSDERMA Not Given DAILY [facility] Ondansetron HCl 4 mg 07/24/20 19:18 Ondansetron Hcl 4 Mg/2 Ml Vial IVPUSH Q8H PRN Nausea and Vomiting Oxycodone HCl 5 mg 08/01/20 14:21 Oxycodone Hcl Immed Release 5 Mg Tablet PO Q4H PRN Pain, Moderate (Pain Scale 4-6 Sodium Chloride 3 ml 07/24/20 19:18 08/05/20 08:21 0.9 % Sodium Chloride Flush 3 Ml Syringe IVFLUSH 3 ml QSHIFT [facility] Administration Vitamin D 25 mcg 07/25/20 09:00 08/05/20 08:20 Cholecalciferol (Vitamin D3) 25 Mcg Tablet PO 25 mcg DAILY [facility] Administration Time Spent With Patient Time: Total time spent is greater than 50% in coordination of care (as documented) at patient's floor/unit and/or counseling patient: Time with patient: 15 - 24 minutes
--- NOTE | 2020-08-05 14:20 | HO.PM.IMPN ---
Subjective Subjective Date of Service: 08/05/20 Interval History: seen and examined no new complaints ROS General - no fevers or chills Cardiovascular - no chest pain Respiratory - no shortness of breath or cough Abdominal- no abdominal pain, nausea, vomiting, diarrhea Physical Exam Vital Signs: Vital Signs: Last Vital Signs Temp 97 F 08/05/20 11:08 Pulse 54 08/05/20 11:08 Resp 20 08/05/20 11:08 BP 146/65 H 08/05/20 11:08 Pulse Ox 95 08/05/20 11:08 Body Mass Index 26.6 Const: Other: General - no acute distress, appears comfortable Cardiovascular - regular rate and rhythm, S1-S2 Lungs - normal respiratory effort, clear to auscultation bilaterally, no wheezing Abdomen - soft, nontender, no rebound or guarding Extremities -RLE in dressing, changed by Gen surg today -- see their notes Neuro - awake and alert, no focal deficits Objective Data Current Medications Generic Name Dose Route Start Last Admin Trade Name Freq PRN Reason Stop Dose Admin Acetaminophen 650 mg 07/24/20 19:18 Acetaminophen 325 Mg Tablet PO Q6H PRN Pain, Mild (Pain Scale 1-3) Amiodarone HCl 400 mg 08/01/20 21:00 08/05/20 08:20 Amiodarone Hcl 200 Mg Tablet PO 400 mg BID PRAMOD Administration Apixaban 5 mg 08/03/20 21:00 08/05/20 08:20 Apixaban 5 Mg Tablet PO 5 mg BID PRAMOD Administration Clopidogrel Bisulfate 75 mg 07/29/20 09:00 08/05/20 08:20 Clopidogrel Bisulfate 75 Mg Tablet PO 75 mg DAILY PRAMOD Administration Insulin Human Lispro 0 unit 07/24/20 21:00 08/05/20 12:47 Insulin Lispro 100 Unit/Ml 3 Ml Vial SUBCUT Not Given QIDACHS [facility] Protocol Metoprolol Tartrate 50 mg 07/31/20 09:15 08/05/20 08:20 Metoprolol Tartrate 50 Mg Tablet PO 50 mg BID PRAMOD Administration Protocol Morphine Sulfate 2 mg 08/01/20 14:23 Morphine Sulfate 2 Mg/Ml Cartridge IVPUSH Q3H PRN Pain, Severe (Pain Scale 7-10) Nicotine 14 mg 07/25/20 11:00 08/05/20 08:21 Nicotine 14 Mg Patch.Td24 TRANSDERMA Not Given DAILY PRAMOD Ondansetron HCl 4 mg 07/24/20 19:18 Ondansetron Hcl 4 Mg/2 Ml Vial IVPUSH Q8H PRN Nausea and Vomiting Oxycodone HCl 5 mg 08/01/20 14:21 Oxycodone Hcl Immed Release 5 Mg Tablet PO Q4H PRN Pain, Moderate (Pain Scale 4-6 Sodium Chloride 3 ml 07/24/20 19:18 08/05/20 08:21 0.9 % Sodium Chloride Flush 3 Ml Syringe IVFLUSH 3 ml QSHIFT PRAMOD Administration Vitamin D 25 mcg 07/25/20 09:00 08/05/20 08:20 Cholecalciferol (Vitamin D3) 25 Mcg Tablet PO 25 mcg DAILY PRAMOD Administration Labs CBC & Chem 7: 08/03/20 08:23 08/04/20 10:28 Microbiology Microbiology Results: Microbiology 07/24/20 11:44 Blood - Venous Blood Culture - Final No growth after 5 days. 07/24/20 11:18 Blood - Venous Blood Culture - Final No growth after 5 days. 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 He is admitted for diabetic foot infection. 1. Diabetic foot infection / osteomyelisis / cellulitis 1a. Sepsis s/p amputation d/w the Gen Surg and ID -- will switch to oral doxycycline 10 days non-weight bearing R foot Dressing changes: alginate dressing daily sepsis resovled, blood cx negative 2. Hyponatremia. mild. likely hypovoluemic + due to HCTZ (has been discontinued) stable 3. Newly Diagnosed PAF Amio (completed 10 days of loading @ 400mg BID), switch to 200mg daily Metoprolol 50mg bid (will switch to XL) Eliquis 5mg bid 4. Diabetes sliding scale ADA diet 5. PAD s/p RLE angio and angioplasty of the R anterior tibial artery Plavix 6. Sepsis present on admission. Resolved. due to diabetic foot infection blood cx negative wound cx growing MRSA 7. 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 Radiological there is some reassurance as there is no large solid component developing. Outpatient surveillence with urology 9. Tobacco use NRT DVT pptx, Eliquis dispo: SNF when bed available
--- NOTE | 2020-08-05 15:46 | MHC.CM.PN ---
On Tuesday/'s Day, 08/04/20, PT recommended STR.CM met with Patient at bedside this morning and per his request, spoke with his , for assist with SNF choices.Patient has been accepted at his first choice SNF/[facility] and CM requested that SNF initiate auth, earlier today. MD aware that Covid and any scripts for narcotics that Patient will be dc on, will be needed.Covid being ordered today.CM has checked in with SNF and still no auth. CM will follow for dc planning.
[2020-08-05 16:00] VITALS: BP 152/62; PULSE 62; RESP 18; TEMP 36.5; O2SAT 98
[2020-08-05 17:46] LABS: Glucose, Whole Blood 125 mg/dL (60-115)
[2020-08-05 19:57] VITALS: BP 139/63; PULSE 61; RESP 18; TEMP 37.2; O2SAT 98
[2020-08-05 20:08] LABS: COVID-19 Test Negative (Negative); IDNOW Serial# 9DD0AD1C
[2020-08-05 20:24] LABS: Glucose, Whole Blood 151 mg/dL (60-115)
[2020-08-05] MEDS: Insulin Lispro 100 UNIT/ML 3 ML VIAL SUBCUT (20:39)
[2020-08-05 21:00] VITALS: BMI 25.6
[2020-08-06] VITALS: BP 158/66; PULSE 62; RESP 18; TEMP 36.9; O2SAT 98
[2020-08-06 04:00] VITALS: BP 144/63; PULSE 57; RESP 20; TEMP 37.4; O2SAT 96
[2020-08-06 07:33] LABS: Glucose, Whole Blood 104 mg/dL (60-115)
[2020-08-06 07:35] VITALS: BP 127/59; PULSE 61; RESP 20; TEMP 35.6; O2SAT 98
--- NOTE | 2020-08-06 09:13 | P.DS_ITS ---
DS: Providers Provider Date of Service: 08/06/20 Date of admission: 07/24/20 15:30 Primary care physician: Jayla Murrieta MD Consults: 07/24/20 15:37 Consult to General Surgery Routine Consulting Provider: Aditi Tolentino Reason for consultation: Diabetic foot infection, ? need for I&D, vascular studies pending 07/24/20 19:18 Consult to Infectious Diseases Routine Consulting Provider: Carmencita Augustine Reason for consultation: diabetic foot infection, probable osteo Consult to Vascular Surgery Routine Consulting Provider: uJan Oscar Reason for consultation: ischemia of right foot with diabetic foot infection Has provider been notified: No 07/26/20 08:58 Consult to Cardiology Routine Consulting Provider: Fam Ramsay Reason for consultation: new onset afib; pre op eval DS: Diagnosis Discharge Diagnosis (1) Sepsis: Status: Acute (2) Osteomyelitis of ankle or foot, right, acute: Status: Acute (3) Abscess of right foot: Status: Acute (4) Atrial fibrillation with rapid ventricular response: Status: Acute (5) Hyponatremia: Status: Acute (6) PAD (peripheral artery disease): Status: Acute DS: Medications Discharge Medications Home Medications: Home Medications Medication Instructions Recorded Confirmed atorvastatin 10 mg tablet 10 mg PO BEDTIME 04/14/20 07/24/20 cholecalciferol (vitamin D3) 25 25 mcg PO DAILY 04/14/20 07/24/20 mcg (1,000 unit) capsule metformin 500 mg tablet 500 mg PO BID 04/14/20 07/24/20 timolol 0.25 % eye drops 1 drp OPHTHALMIC-LEFT DAILY 04/14/20 07/24/20 Previous Rx's Medication Instructions Recorded amiodarone 200 mg PO DAILY #30 tab 08/06/20 apixaban [Eliquis] 5 mg PO BID #60 tab 08/06/20 clopidogrel 75 mg PO DAILY #30 tab 08/06/20 doxycycline hyclate 100 mg PO Q12H #18 tab 08/06/20 metoprolol succinate 100 mg PO DAILY #30 tab 08/06/20 nicotine 14 mg TRANSDERMAL DAILY #14 ea 08/06/20 oxycodone 5 mg PO Q4H PRN #30 tab 08/06/20 DS: Summary Hospital Course Hospital Course: HPI: This is a 75-year-old male with a past medical history of diabetes who is not the greatest of historians. He presents to the emergency room after being brought by ambulance. The patient himself reports that he came here ?because his kicked him out?. History is obtained from the ED chart, staff and mainly from the patient's . She reports that over the last several days the patient has appeared more tired and sleeping throughout the day. She reports that today he complained of foot pain and so she called paramedics to bring him to the emergency room. She reports that she checked his temperature day prior to admission at which point i t was normal. She reports that he follows up with a oyster worker and last saw him several weeks back at which time everything was ?okay. ? Upon arrival to the emergency room, patient was noted to have erythema of the right lower extremity with sloughing of the skin and some ulcerations on the plantar aspect. His blood work showed leukocytosis of 14,000. He was noted to be tachycardic in the 100s and subsequently went into rapid AFib with RVR into the 130s and 140s, converting back to normal sinus rhythm on his own. This happened twice and he did require 1 dose of IV Cardizem. He was evaluated with arterial Doppler studies which are pending at the time of admission. He was also tested with a CTA of the chest to rule out pulmonary embolism which was negative. He was noted to be hyponatremic with a sodium sodium of 129. He was given a dose of vancomycin, Zosyn, IV fluids and admission was requested for a diabetic foot infection. Patient had a prolonged hospital course, for the full details please see the medical records. His hospital course broken down by hospital course broken down by problem list 1. Sepsis secondary to diabetic foot infection, osteomyelitis, amputation right toe Pain in was initially started on broad-spectrum IV antibiotics, vancomycin. He had several specialties involved including General surgery, vascular surgery and Infectious Diseases. Patient initially underwent an angiogram of the right lower extremity and angioplasty of the right anterior tibial artery. He subsequently underwent an amputation of the right big toe. His wound cultures grew MRSA which was fortunately sensitive to doxycycline. He will be discharged on 9 more days of oral doxycycline. He has been started on plavix for PAD. 2. New onset PAF patient was noted to be in / out of A. Fib. He was evaluated by Cardiology and was started on metoprolol and amiodarone, as well as ELiquis. He will be discharged on the same, he remains in Sinus at the time of discharge. 3. DM on metformin at home, was treated with sliding scale in the hospital. Can continue metformin upon d/c. 4. HTN was on norvasc + lisinopril + hctz at home. Treated with meotprolol for his a. fib. Lisinopril can be added back as BP allows. 5. Mild HypoNa likely due to hctz + hypovolemia. Improved and stable. 6. Completed cyst R Kidney Incidentally found on imaging studies. Decidated ultrasound of the R kidney reassurance as no large solid component developing (was present on imaging studies in the past). Outpatient surveillence with urology was recommended. 7. Tobacco use on patch Anticipate Less than 30 days stay. Time Spent with Patient Time attestation: Total time spent providing and/or coordinating discharge services: Discharge coordination time: Greater than 30 minutes Physical Exam Vital Signs: Vital Signs: Last Vital Signs Temp 96.1 F L 08/06/20 07:35 Pulse 61 08/06/20 07:35 Resp 20 08/06/20 07:35 BP 127/59 L 08/06/20 07:35 Pulse Ox 98 08/06/20 07:35 Body Mass Index 25.6 Const: Other: General - no acute distress, appears comfortable Cardiovascular - regular rate and rhythm, S1-S2 Lungs - normal respiratory effort, clear to auscultation bilaterally, no wheezing Abdomen - soft, nontender, no rebound or guarding Extremities - no edema bilaterally Neuro - awake and alert, no focal deficits Skin - amp site clean, partially open, good granulation issue. No pus / gangrene DS: Data Data Completed and Pending Pending studies at discharge: Pending at discharge 08/01/20 13:56 Surgical [PTH] Routine Labs on day of discharge: Laboratory Results - last 24 hr 08/05/20 08/05/20 08/05/20 11:07 17:32 19:25 POC Glucose 95 125 H COVID-19 ([facility]) Negative COVID-19 Clin Com See Note 08/05/20 08/06/20 20:21 07:12 POC Glucose 151 H 104 COVID-19 ([facility]) COVID-19 Clin Com Discharge Plan Discharge Patient Disposition: Xfer SNF Discharge Diagnosis: Diabetic Foot infection, New onset PAF Referrals: [facility] [Outside] - 1 Week Cuco Yu MD [Physician] - 2 Weeks (follow up with Dr. Yu in 2 weeks) Jayla Murrieta MD [Primary Care Provider] - Discharge Medications: New nicotine 14 mg/24 hr Patch 24 Hour 14 mg transdermal DAILY Qty: 14 RF: 0 doxycycline hyclate 100 mg Tablet 100 mg PO Q12H Qty: 18 RF: 0 Eliquis 5 mg Tablet 5 mg PO BID Qty: 60 RF: 0 amiodarone 200 mg Tablet 200 mg PO DAILY Qty: 30 RF: 0 metoprolol succinate 100 mg Tablet Extended Release 24 Hr 100 mg PO DAILY Qty: 30 RF: 0 clopidogrel 75 mg Tablet 75 mg PO DAILY Qty: 30 RF: 0 oxycodone 5 mg Tablet 5 mg PO Q4H PRN (Reason: Pain, Moderate (Pain Scale 4-6) Qty: 30 RF: 0 Continued timolol 0.25 % drops 1 drp ophthalmic-Left DAILY RF: 0 cholecalciferol (vitamin D3) 25 mcg (1,000 unit) capsule 25 mcg PO DAILY RF: 0 metformin 500 mg tablet 500 mg PO BID RF: 0 atorvastatin 10 mg tablet 10 mg PO BEDTIME RF: 0 Discontinued lisinopril 40 mg tablet 40 mg PO DAILY Qty: 90 RF: 3 amlodipine 10 mg tablet 10 mg PO DAILY Qty: 90 RF: 1 hydrochlorothiazide 12.5 mg tablet 12.5 mg PO DAILY RF: 0 aspirin [Adult Aspirin Regimen] 81 mg tablet,delayed release (DR/EC) 81 mg PO DAILY RF: 0 Discharge Orders: Discharge Order (Routine); Ordered 08/06/20 Ordered By: Abdirizak Walter Diet: diabetic diet Activity on Discharge: NWB RLE Stand Alone Forms: Patient Portal Discharge page Activity Restrictions/Additional Instructions: Non-weight bearing RLE until seen by General Surgery clinic follow up Dressing changes as follows: daily wound care with Alginate dressings to open wound. Wrap with Kerlix and Luis. Care Plan Goals: To stay healthy and out of the hospital. Health Concerns: PAD Diabetic Foot infection PAF Amuputation Plan of Treatment: PAD - Take Plavix Diabetic Foot infection - Take Doxycycline for 10 days PAF - Take Eliquis, metoprolol, amiodarone Amuputation - follow up with Dr. Yu in 2 weeks Assessment: 75 yo M admitted for diabetic foot infection. Treated with IV antibiotics and underwent amputation. Will be d/c on oral doxycycline. Also noted new PAF. Maintained in sinus with amio and started on metoprolol + Eliqus. Patient Instructions: Angiogram (GEN)
--- NOTE | 2020-08-06 09:31 | MHC.CM.PN ---
Patient has been medically cleared for dc to SNF/STR today.Patient will dc to his first choice facility- [facility] today at 11AM, via [facility].CM attempted to reach /Cathryn @ [phone], but was only able to leave a detailed message regarding the dc plan.IMM addressed with Patient (CM gave him the original and a copy has been placed on the chart)and he is aware of and in agreement with the dc plan.
--- NOTE | 2020-08-06 10:11 | P.PNGS_ITS ---
Subjective Subjective Date of Service: 08/06/20 Interval history: antony complaints Physical Exam Vital Signs: Vital Signs: Last Vital Signs Temp 96.1 F L 08/06/20 07:35 Pulse 61 08/06/20 07:35 Resp 20 08/06/20 07:35 BP 127/59 L 08/06/20 07:35 Pulse Ox 98 08/06/20 07:35 Body Mass Index 25.6 Const: General: comfortable and no acute distress GI: Palpation (GI): Soft to palpation and nontender Extrem: Other: amputation site clean, open wound at distal aspect, granulating Progress Note: A&P Assessment and plan (1) Osteomyelitis of ankle or foot, right, acute: Status: Acute Assessment and Plan: S/P big toe amp, right dressings changed ok to do daily dressings with Alginate no weight bearing right foot ffup in office in 2-3 weeks Fall Risk Details Current Medications: Current Medications Generic Name Dose Route Start Last Admin Trade Name Freq PRN Reason Stop Dose Admin Acetaminophen 650 mg 07/24/20 19:18 Acetaminophen 325 Mg Tablet PO Q6H PRN Pain, Mild (Pain Scale 1-3) Amiodarone HCl 200 mg 08/06/20 09:00 Amiodarone Hcl 200 Mg Tablet PO DAILY PRAMOD Apixaban 5 mg 08/03/20 21:00 08/05/20 20:38 Apixaban 5 Mg Tablet PO 5 mg BID PRAMOD Administration Clopidogrel Bisulfate 75 mg 07/29/20 09:00 08/05/20 08:20 Clopidogrel Bisulfate 75 Mg Tablet PO 75 mg DAILY PRAMOD Administration Doxycycline Hyclate 100 mg 08/05/20 20:00 08/05/20 19:24 Doxycycline Hyclate 100 Mg Tablet PO 100 mg Q12H PRAMOD Administration Insulin Human Lispro 0 unit 07/24/20 21:00 08/05/20 20:39 Insulin Lispro 100 Unit/Ml 3 Ml Vial SUBCUT 2 unit QIDACHS [facility] Administration Protocol Metoprolol Succinate 100 mg 08/06/20 09:00 Metoprolol Succinate Er 100 Mg Tab.Er.24h PO DAILY [facility] Protocol Morphine Sulfate 2 mg 08/01/20 14:23 Morphine Sulfate 2 Mg/Ml Cartridge IVPUSH Q3H PRN Pain, Severe (Pain Scale 7-10) Nicotine 14 mg 07/25/20 11:00 08/05/20 08:21 Nicotine 14 Mg Patch.Td24 TRANSDERMA Not Given DAILY PRAMOD Ondansetron HCl 4 mg 07/24/20 19:18 Ondansetron Hcl 4 Mg/2 Ml Vial IVPUSH Q8H PRN Nausea and Vomiting Oxycodone HCl 5 mg 08/01/20 14:21 Oxycodone Hcl Immed Release 5 Mg Tablet PO Q4H PRN Pain, Moderate (Pain Scale 4-6 Sodium Chloride 3 ml 07/24/20 19:18 08/05/20 20:42 0.9 % Sodium Chloride Flush 3 Ml Syringe IVFLUSH 3 ml QSHIFT PRAMOD Administration Vitamin D 25 mcg 07/25/20 09:00 08/05/20 08:20 Cholecalciferol (Vitamin D3) 25 Mcg Tablet PO 25 mcg DAILY PRAMOD Administration Time Spent With Patient Time: Total time spent is greater than 50% in coordination of care (as documented) at patient's floor/unit and/or counseling patient: Time with patient: 15 - 24 minutes
[2020-08-06] MEDS: Metoprolol Succinate ER 100 MG TAB.ER.24H PO (10:31)
[2020-08-06] MEDS: Clopidogrel Bisulfate 75 MG TABLET PO (10:31)
[2020-08-06] MEDS: Amiodarone HCL 200 MG TABLET PO (10:31)
[2020-08-06] MEDS: Cholecalciferol (Vitamin D3) 25 MCG TABLET PO (10:31)
[2020-08-06] MEDS: Apixaban 5 MG TABLET PO (10:31)
[2020-08-06] MEDS: 0.9 % Sodium Chloride Flush 3 ML SYRINGE IVFLUSH (10:32)
[2020-08-06] MEDS: Nicotine 14 MG PATCH.TD24 TRANSDERMA (10:32)
[2020-08-06 12:08] LABS: Glucose, Whole Blood 97 mg/dL (60-115)
== END 2020-08-06 12:00 | disposition skilled nursing facility (03) | DRG 853 ==
LOC: HO.ED 11:09 → HO.EDOVER 15:37 → HO.IMC 17:56
PROVIDERS: Hospitalist; Nurse Practitioner Acute Care; Nurse Practitioner Family; Physician Assistant Medical; Surgery; Surgery Vascular Surgery; Admitting Provider Family Medicine; Emergency Provider Emergency Medicine; PCP Internal Medicine; Visit Provider Family Medicine
PROC: 047P3ZZ Dilation of Right Anterior Tibial Artery, Percutaneous Approach (ICD-10-PCS; principal; 2020-07-28 10:30)
DX: A41.9 Sepsis, unspecified organism (principal); G92 Toxic encephalopathy; E87.1 Hypo-osmolality and hyponatremia; L02.611 Cutaneous abscess of right foot; L97.419 Non-pressure chronic ulcer of right heel and midfoot with unspecified severity; M86.171 Other acute osteomyelitis, right ankle and foot; Z20.822 Contact with and (suspected) exposure to COVID-19; F17.210 Nicotine dependence, cigarettes, uncomplicated; E11.42 Type 2 diabetes mellitus with diabetic polyneuropathy; E11.621 Type 2 diabetes mellitus with foot ulcer; E78.5 Hyperlipidemia, unspecified; I48.0 Paroxysmal atrial fibrillation; E11.69 Type 2 diabetes mellitus with other specified complication; I77.1 Stricture of artery; Z71.6 Tobacco abuse counseling; N28.1 Cyst of kidney, acquired; Z79.01 Long term (current) use of anticoagulants; Z79.84 Long term (current) use of oral hypoglycemic drugs; Z79.899 Other long term (current) drug therapy
CPT/HCPCS: 0241U; 36253; 36415; 71046; 71275; 73620; 73720; 76775; 76937; 80048; 80053; 80076; 80202; 81001; 82272; 82728; 82947; 83540; 83605; 83615; 83935; 84133; 84145; 84300; 84466; 84484; 85025; 85027; 85610; 85652; 86140; 87040; 87071; 87077; 87147; 87186; 87205; 87635; 88305; 88311; 93005; 93306; 93926; 93971; 96365; 96366; 96367; 96375; 97116; 97162; 97530; 99024; 99152; 99153; 99285; A9585; C1725; C1760; C1769; C1887; J1650; J2370; J2405; J2543; J3010; J3370; Q9967

== ENCOUNTER → 2020-08-21 13:08 | Outpatient (BNVA) | payer MEDICARE, SELFPAY | PROVIDERS: PCP Internal Medicine; Visit Provider Surgery Vascular Surgery | DX: I73.9 Peripheral vascular disease, unspecified (principal); L02.611 Cutaneous abscess of right foot; M87.859 Other osteonecrosis, unspecified femur; E11.65 Type 2 diabetes mellitus with hyperglycemia; E11.42 Type 2 diabetes mellitus with diabetic polyneuropathy; E11.21 Type 2 diabetes mellitus with diabetic nephropathy; E11.69 Type 2 diabetes mellitus with other specified complication; M86.8X7 Other osteomyelitis, ankle and foot; F17.210 Nicotine dependence, cigarettes, uncomplicated | CPT/HCPCS: 99212 ==

== ENCOUNTER 2020-08-27 12:54 | Outpatient (RCR) | payer MEDICARE, SELFPAY ==
--- NOTE | ~2020-08-27 | XR_ITS ---
EXAMINATION: XR FOOT, RIGHT CLINICAL INFORMATION: Right 3rd toe wound. COMPARISON: Prior right foot MRI dated 07/24/2020. TECHNIQUE: AP, lateral, and oblique views of the right foot. FINDINGS: Resection of the 1st metatarsal and 2nd metatarsophalangeal joint. There is erosion of the 3rd distal phalanx, concerning for osteomyelitis. No radiopaque foreign body. No abnormal soft tissue calcification. XR/XR foot RT min 3V IMPRESSION: 1. Erosion of the 3rd distal phalanx, concerning for osteomyelitis. 2. Resection of the 1st metatarsal and 2nd metatarsophalangeal joint.
== END 2020-11-29 12:00 | disposition home or self-care (01) ==
LOC: HO.WCC 12:54
PROVIDERS: PCP Internal Medicine; Visit Provider Surgery
DX: E11.621 Type 2 diabetes mellitus with foot ulcer (principal); L97.512 Non-pressure chronic ulcer of other part of right foot with fat layer exposed; L97.516 Non-pressure chronic ulcer of other part of right foot with bone involvement without evidence of necrosis; T87.81 Dehiscence of amputation stump; E11.52 Type 2 diabetes mellitus with diabetic peripheral angiopathy with gangrene; E11.69 Type 2 diabetes mellitus with other specified complication; M86.171 Other acute osteomyelitis, right ankle and foot; E11.40 Type 2 diabetes mellitus with diabetic neuropathy, unspecified; I10 Essential (primary) hypertension; F17.210 Nicotine dependence, cigarettes, uncomplicated; Z72.89 Other problems related to lifestyle; Z79.01 Long term (current) use of anticoagulants; Z79.899 Other long term (current) drug therapy; Z89.411 Acquired absence of right great toe
CPT/HCPCS: 11042; 11043; 11044; 73630; 87071; 87077; 87147; 87186; 87205; 88304; 88311; 97605

== ENCOUNTER → 2020-08-28 14:47 | Outpatient (BNVA) | payer MEDICARE, SELFPAY | PROVIDERS: PCP Internal Medicine; Referring Provider Internal Medicine; Visit Provider Surgery | DX: L08.9 Local infection of the skin and subcutaneous tissue, unspecified (principal); E11.51 Type 2 diabetes mellitus with diabetic peripheral angiopathy without gangrene; Z89.411 Acquired absence of right great toe | CPT/HCPCS: 99212 ==

== ENCOUNTER → 2020-09-11 14:51 | Outpatient (BNVA) | payer MEDICARE, SELFPAY | PROVIDERS: PCP Internal Medicine; Visit Provider Surgery | DX: E11.628 Type 2 diabetes mellitus with other skin complications (principal); L08.9 Local infection of the skin and subcutaneous tissue, unspecified; Z89.411 Acquired absence of right great toe | CPT/HCPCS: 99212 ==

== ENCOUNTER 2020-10-15 12:50 | Outpatient (REF) | payer MEDICARE, SELFPAY ==
[2020-10-15 13:53] LABS: MANUAL DIFF FLAG NO
[2020-10-15 13:55] LABS: Basophils Absolute Auto 0.1 X10*3/uL (0.0-0.2); Eosinophils Absolute Auto 0.7 X10*3/uL (0.0-0.4); Eosinophils Percent Auto 9.7 % (0-4); Hemoglobin 11.4 g/dl (14.0-18.0); Imm Gran Abs Auto 0.03 X10*3/uL (0.00-0.03); Imm Gran Pct Auto 0.4 % (0.0-0.4); Lymphocytes Absolute Auto 1.1 X10*3/uL (1.2-4.9); Lymphocytes Percent Auto 15.6 % (20-40); Mean Corpuscular HGB Conc 32.6 g/dl (31.0-36.0); Mean Corpuscular Hemoglobin 30.6 pg (27.0-33.0); Mean Corpuscular Volume 93.8 fL (80-98); Mean Platelet Volume 11.2 fL (9.4-12.4); Monocytes Absolute Auto 0.8 X10*3/uL (0.1-1.2); Neutrophils Absolute Auto 4.5 X10*3/uL (2.0-8.3); Neutrophils Percent Auto 62.3 % (45-73); Platelet Count 232 X10*3/uL (160-400); Red Blood Count 3.73 X10*6/uL (4.60-5.80); Red Cell Distribution Width 16.4 % (11.0-16.0); White Blood Count 7.2 X10*3/uL (4.8-10.8)
[2020-10-15 14:22] LABS: Estimated Average Glucose 97 mg/dL
[2020-10-15 14:22] LABS: Microalbum/Creatinine Ratio Ur 201.7 ug/mg cr
[2020-10-15 15:07] LABS: Folate 8.3 ng/mL (> or = 4.0); Vitamin B12 245 pg/mL (200-900)
[2020-10-15 15:12] LABS: Alanine Aminotransferase 15 U/L (0-40); Albumin Level 3.7 g/dL (3.5-5.0); Alkaline Phosphatase 114 U/L (39-117); Anion Gap 12 (12-20); Aspartate Amino Transferase 17 U/L (5-37); Bilirubin Total 0.2 mg/dL (0.0-1.0); Blood Urea Nitrogen 21 mg/dL (9-16); Calcium 9.2 mg/dL (8.4-10.2); Carbon Dioxide 27 mmol/L (22-29); Chloride 108 mmol/L (96-108); Cholesterol 129 mg/dL; Estimated Glomerular Filt Rate > 60; Glucose Random 88 mg/dL (60-115); HDL Cholesterol 39 mg/dL; LDL Cholesterol Calculated 76 mg/dl; Potassium 4.7 mmol/L (3.3-5.1); Sodium 142 mmol/L (135-145); Total Protein 6.7 g/dL (6.5-8.0); Triglycerides 70 mg/dL
[2020-10-15 15:39] LABS: Free T4 (Free Thyroxine) 0.92 ng/dL (0.71-1.85); Thyroid Stimulating Hormone 3.76 uIU/mL (0.32-4.0)
== END 2020-10-15 12:51 | disposition home or self-care (01) ==
LOC: HO.LAB 12:50
PROVIDERS: PCP Internal Medicine; Visit Provider Internal Medicine
DX: I10 Essential (primary) hypertension (principal); E78.00 Pure hypercholesterolemia, unspecified; I25.10 Atherosclerotic heart disease of native coronary artery without angina pectoris; E11.65 Type 2 diabetes mellitus with hyperglycemia
CPT/HCPCS: 36415; 80053; 80061; 82043; 82607; 82746; 83036; 84439; 84443; 85025

== ENCOUNTER → 2020-10-22 11:02 | Outpatient (BNVA) | payer MEDICARE, SELFPAY | PROVIDERS: PCP Internal Medicine; Visit Provider Internal Medicine | DX: S98.131A Complete traumatic amputation of one right lesser toe, initial encounter (principal) | CPT/HCPCS: 99212 ==

== ENCOUNTER → 2020-10-27 11:48 | Outpatient (BNVA) | payer MEDICARE, SELFPAY | PROVIDERS: PCP Internal Medicine; Referring Provider Internal Medicine; Visit Provider Surgery | DX: Z47.81 Encounter for orthopedic aftercare following surgical amputation (principal); Z89.411 Acquired absence of right great toe | CPT/HCPCS: Q3014 ==

== ENCOUNTER 2020-11-18 12:33 | Outpatient (REF) | payer MEDICARE, SELFPAY ==
--- NOTE | ~2020-11-18 | US_ITS ---
EXAMINATION: COLOR-FLOW DUPLEX IMAGING OF THE BILATERAL LOWER EXTREMITY ARTERIAL SYSTEM. VELOCITY MEASUREMENTS THROUGHOUT THE FEMORAL ARTERIES WITH ANKLE-BRACHIAL PERIPHERAL ARTERIAL TESTING. Interventional Radiologist: Miko White M.D., F.S.I.R., F.A.C.R. CLINICAL INFORMATION: This is a 75-year-old male with a nonhealing ulcer. Status post great toe amputation. History of angioplasty in the right leg. Hypertension. Peripheral arterial disease. Comparison is made to a previous study dated 07/24/2020 RIGHT FEMORAL RUNOFF VELOCITIES: The right common femoral artery measures 200 cm/s and biphasic. The right profunda femoral artery is 146 cm/s and is biphasic. Right proximal superficial femoral artery measures 205 cm/s and monophasic. Previously, 133 cm/sec. Mid superficial femoral artery is 220 cm/s and monophasic. Previously, 133 cm/sec. Distal right superficial femoral artery measures 134 cm/s and is monophasic. Right popliteal velocity measures 111 cm/s and is monophasic. The posterior tibial artery velocity measures 63 cm/s and was monophasic. The right ankle-brachial index is 0.94. LEFT FEMORAL RUNOFF VELOCITIES: The left common femoral artery measures 202 cm/s and triphasic. The left profunda femoral artery is 114 cm/s and is biphasic. Left proximal superficial femoral artery measures 164 cm/s and biphasic. Mid superficial femoral artery is 153 cm/s and biphasic. Distal left superficial femoral artery measures 173 cm/s and is biphasic. Left popliteal velocity measures 118 cm/s and is biphasic. The posterior tibial artery velocity measures 48 cm/s and was biphasic. The left ankle-brachial index is 1.05. An arrhythmia was seen during the duplex portion of the examination. This would be best evaluated with an EKG. US/US arterial duplex LE BI IMPRESSION: 1. RIGHT SIDE: There are worsening velocities in the proximal and mid right superficial femoral artery which appear to be hemodynamically significant. This likely represents a hemodynamically significant stenosis. There appears to be some collateral compensation evident with an ankle-brachial index of 0.94 on the right. 2. LEFT SIDE: There are elevated velocities in the left common femoral artery but the waveforms are triphasic. There is moderate stenosis present. There is a normal ankle-brachial index on the left. 3. An arrhythmia seen during the duplex portion of examination. 4. There is a 3.1 x 0.9 x 1.9 cm right inguinal lymph node present.
== END 2020-11-18 12:34 | disposition home or self-care (01) ==
LOC: HO.US 12:33
PROVIDERS: Visit Provider Surgery Vascular Surgery
DX: I70.213 Atherosclerosis of native arteries of extremities with intermittent claudication, bilateral legs (principal)
CPT/HCPCS: 93923; 93925

== ENCOUNTER 2020-11-29 17:48 | Inpatient (IN) | payer MEDICARE, SELFPAY ==
--- NOTE | ~2020-11-29 | MR_ITS ---
EXAMINATION: MRI WITHOUT AND WITH CONTRAST FOOT, RIGHT CLINICAL INFORMATION: Nonhealing wound COMPARISON: Radiographs 11/29/2020. MRI 07/24/2020. TECHNIQUE: MRI without and with intravenous administration of 8 mL of Gadavist is performed on the right foot. Image quality is degraded by patient motion artifact. FINDINGS: Amputation of the distal 1st metatarsal and great toe. Postsurgical changes of the medial soft tissues with mild edema and enhancement at the distal aspect which extends to the 1st metatarsal osteotomy. There is mild edema/enhancement and loss of T1 fatty marrow signal at the distal/plantar aspect of the osteotomy which may represent postsurgical change or minimal osteomyelitis. The head of the 2nd metatarsal and base of the 2nd proximal phalanx are truncated, blunted, with edema/enhancement and T1 fatty marrow replacement. Correlate with previous surgery as this could represent surgical resection. However, cannot exclude active osteomyelitis, particularly at the base of the proximal phalanx. There is a soft tissue defect of the distal 3rd toe with surrounding edema and enhancement compatible with cellulitis. A sinus tract extends to the distal phalanx end along the undersurface to the PIP joint. Marked osteomyelitis of the distal phalanx which is eroded and markedly diminutive. Osteomyelitis of the distal aspect of the middle phalanx is suspected. Cannot exclude osteomyelitis throughout the middle phalanx as well as the distal aspect of the proximal phalanx which is edematous and enhancing although T1 fatty marrow signal appears preserved. MR/MR foot RT wo/w con IMPRESSION: Osteomyelitis with destruction/erosion of the 3rd distal phalanx, and likely the distal aspect of the middle phalanx. Marrow edema of the 3rd proximal phalanx is more likely reactive. Postsurgical change versus osteomyelitis with erosion/truncation of the 2nd metatarsal head and base of the 2nd proximal phalanx. Cannot exclude minimal osteomyelitis at the plantar aspect of the 1st metatarsal osteotomy.
--- NOTE | ~2020-11-29 | XR_ITS ---
EXAMINATION: XR CHEST CLINICAL INFORMATION: Cough. Wheeze. COMPARISON: CTA chest dated 07/24/2020. TECHNIQUE: 2 views of the chest were obtained. FINDINGS: Possible trace right-sided pleural effusion, new when compared to the prior examination. No new airspace consolidation. No pleural effusion or pneumothorax. Stable cardiomediastinal silhouette. XR/XR chest 2V IMPRESSION: Possible, trace right-sided pleural effusion, new when compared to the prior examination.
--- NOTE | ~2020-11-29 | XR_ITS ---
EXAMINATION: XR FOOT, RIGHT CLINICAL INFORMATION: Question osteomyelitis. COMPARISON: Right foot radiographs dated 11/27/2020. TECHNIQUE: AP, lateral, and oblique views of the right foot. FINDINGS: Redemonstration of 1st metatarsal and 2nd metatarsophalangeal resections, similar when compared to the prior examination. No new osseous erosion. No periosteal reaction. No acute fracture or dislocation. No new soft tissue calcification or radiopaque foreign body. XR/XR foot RT min 3V IMPRESSION: 1. Redemonstration of 1st metatarsal and 2nd metatarsophalangeal resections. No new osseous erosion or periosteal reaction. 2. Osteomyelitis may be occult on plain radiographs and if there is clinical concern, nuclear medicine bone scan or MRI without and with contrast could help further evaluate.
[2020-11-29 18:20] VITALS: PULSE 60; RESP 18; O2SAT 95; BMI 25.8
--- NOTE | 2020-11-29 18:55 | ED_ITS ---
HPI - General Adult General Chief complaint: Extremity Problem Stated complaint: FEVER, WOUND RIGHT FOOT Time Seen by Provider: 11/29/20 17:55 Source: patient Mode of arrival: ambulatory Limitations: no limitations History of Present Illness HPI narrative: 75-year-old male with a past medical history of osteomyelitis in his right great toe with an amputation July 2020, atrial fibrillation on Eliquis, coronary artery disease, diabetes, hypertension, hyperlipidemia, and peripheral artery disease presents for 2 weeks of worsening right foot redness and pain, and right foot nonhealing ulcer. Patient has an ulcer in his right 3rd toe, and reports he is not sure if he has had fevers at home. States he has visiting nurses checked him daily, and they sent the patient here. MD complaint: sepsis d/t cellulitis Onset (ago): week(s) (2) Location: lower extremity Radiation: non-radiation Severity: severe Associated symptoms: fever/chills Treatments prior to arrival: none Related Data Home Medications Medication Instructions Recorded Confirmed cholecalciferol (vitamin D3) 25 25 mcg PO DAILY 04/14/20 10/27/20 mcg (1,000 unit) capsule timolol 0.25 % eye drops 1 drp OPHTHALMIC-LEFT DAILY 04/14/20 10/27/20 amlodipine 10 mg tablet 10 mg PO DAILY 08/21/20 10/27/20 lisinopril 40 mg tablet 40 mg PO DAILY 08/21/20 10/27/20 timolol maleate 0.5 % eye drops 1 drp OPHTHALMIC (EYE) BID 08/21/20 10/27/20 Previous Rx's Medication Instructions Recorded oxycodone 5 mg tablet 5 mg PO Q4H PRN #30 tab 08/06/20 metoprolol succinate 100 mg 100 mg PO DAILY #90 tab 09/08/20 tablet,extended release 24 hr amiodarone 200 mg tablet 200 mg PO DAILY 90 Days #90 tab 10/01/20 clopidogrel 75 mg tablet 75 mg PO DAILY 90 Days #90 tab 10/01/20 apixaban 5 mg tablet (Eliquis) 5 mg PO BID 90 Days #180 tab 10/03/20 metformin 500 mg tablet 500 mg PO BID 90 Days #180 tab 10/03/20 hydrochlorothiazide 12.5 mg tablet 12.5 mg PO DAILY 90 Days #90 tab 10/07/20 minocycline 100 mg capsule 100 mg PO BID 30 Days #60 cap 10/27/20 mirtazapine 7.5 mg tablet 7.5 mg PO BEDTIME #20 tab 11/10/20 atorvastatin 10 mg tablet 10 mg PO BEDTIME #90 tab 11/11/20 Allergies Allergy/AdvReac Type Severity Reaction Status Date / Time No Known Allergies Allergy Mild Verified 10/09/20 13:15 Review of Systems Constitutional: Constitutional: Reports fever(s), Denies headache(s) and Denies weakness Eyes: Eyes: Denies blurry vision and Denies diplopia ENT: Denies otalgia, Denies headache(s) and Denies sore throat Cardiovascular: Cardiovascular: Denies acrocyanosis, Denies chest pain, Denies lightheadedness, Denies palpitations and Denies dyspnea Respiratory: Respiratory: Reports cough, Denies dyspnea and Reports wheezing Gastrointestinal: Gastrointestinal: Denies abdominal pain, Denies constipation, Denies diarrhea, Denies nausea and Denies vomiting Musculoskeletal: Comments: Amputated great right toe Integumentary/Breasts: Skin/Breast: Reports non-healing lesions, Reports erythema, Reports rash, Reports skin swelling and Reports skin ulcer Comments: Redness and swelling over right foot, wound on the base of the right 3rd toe Neurologic: Denies headache(s) and Denies weakness Psychiatric: Psychiatric: Reports no additional psychiatric complaints Endocrine: Endocrine: Reports no additional endocrine complaints and Denies palpitations Hematologic/Lymphatic: Hematologic/Lymphatic: Reports no additional hematologic/lymphatic complaints Allergic/Immunologic: Allergic/Immunologic: Reports wheezing PMFSH Past Medical History Medical History Abscess of right foot Anxiety and depression Asthma Atrial fibrillation with rapid ventricular response Avascular necrosis of bone of hip Coronary artery disease Diabetic foot ulcer Diabetic nephropathy Diabetic neuropathy Diverticular disease Hypercholesterolemia Hypertension Open wound Osteomyelitis of toe Preoperative cardiovascular examination Thrombocytopenia Tobacco abuse Tubular adenoma of colon Type 2 diabetes mellitus with hyperglycemia Vitamin D deficiency Surgical History Amputated toe of right foot Amputation finger History of cataract surgery History of surgery Family History Family History Father Diabetes Hypertension CVD (cardiovascular disease) Stroke Mother CVD (cardiovascular disease) Hypertension Cancer Sister No problems noted. Social History Social History Household Members: Family Housing: House Do you presently have visiting nurse or other home services: No Alcohol intake: never Patient Tobacco Use Status: Current everyday Tobacco user Tobacco use type: Cigarette Cigarettes Per Day: 7 Advance Directives: Yes Advance Directives on File: Yes Advance Directives Date on File: 07/24/20 service: No Current occupational status: retired Physical Exam Vital Signs: Vital Signs: Last Vital Signs Temp 100.3 F 11/29/20 19:35 Pulse 60 11/29/20 19:35 Resp 15 11/29/20 19:35 BP 155/65 H 11/29/20 18:57 Pulse Ox 96 11/29/20 19:35 Body Mass Index 25.8 Const: Other: General: cooperative, alert and ill appearing chronically; No diaphoretic Nutritional Appearance: malnourished Orientation/consciousness: patient oriented x3 Limitations: no limitations HENMT: Head: Yes normal to inspection, Yes normocephalic and Yes atraumatic Eyes: Pupils: Equal, round and reactive pupils present EOM: EOMs intact bilaterally Neck: Neck: Yes full ROM, Yes no meningeal signs and Yes supple Resp: Effort & Inspection: normal respiratory effort, no pursed lip breathing, no respiratory distress and not tachypneic Auscultation: no crackles, no rales, no rhonchi and wheezes throughout Cardio: Palpation: normal PMI Rate: regular rate Rhythm: regular rhythm Heart sounds: S1 normal heart sound present and S2 normal heart sound present GI: Inspection: Yes normal to inspection Palpation (GI): Soft to palpation, not firm, nontender, no guarding and not rigid Percussion: Yes normal to percussion Auscultation: normal bowel sounds Skin: Other: Third right toe has an ulcer on the plantar side that is 2 cm, when I did wound culture there was tunneling. Patient has cellulitis over the entire right forefoot. Right foot is warm, red, swollen. Rashes: rashes noted maculopapular rash right foot Wounds: wounds noted ulceration right plantar 3rd toe Neuro: General: patient oriented x3, no meningeal signs and no focal motor deficits Cranial nerves: Yes Equal, round and reactive pupils present Extrem: Other: right toe amputation Right lower extremity: foot Details: normal capillary refill, abnormal to inspection Details: erythematous, tenderness and warmth; Negative for no crepitus Course Course Course Narrative: 75-year-old male with history of osteomyelitis of right foot presents for 2 weeks of nonhealing right 3rd toe ulcer, and cellulitis and right foot. Question fevers at home. On exam, patient is chronically ill-appearing, with a 2 cm ulcer on the plantar side of his 3rd right toe that has tunneling when I do a wound culture. Patient's entire right forefoot is red, warm, and tender to touch. In addition, lungs have wheezes throughout. Initiated septic work up. Obtained wound culture. XR of foot states 1. Redemonstration of 1st metatarsal and 2nd me tatarsophalangeal resections. No new osseous erosion or periosteal reaction. ? 2. Osteomyelitis may be occult on plain radiographs and if there is clinical concern, nuclear medicine bone scan or MRI without and with contrast could help further evaluate. CXR shows no airspace disease, shows possible right small pleural effusion. No pulmonary edema. Added pro-BNP. Discussed with Dr Warner, she will admit. Started Vanco, Zosyn. Lactate pending Medical Decision Making Lab Data Result diagrams: 11/29/20 19:15 11/29/20 19:15 Labs: Lab Results 11/29/20 11/29/20 11/29/20 Range/Units 19:14 19:15 19:15 WBC 8.9 (4.8-10.8) X10*3/uL RBC 3.73 L (4.60-5.80) X10*6/uL Hgb 11.2 L (14.0-18.0) g/dl Hct 34.9 L (42-52) % MCV 93.6 (80-98) fL MCH 30.0 (27.0-33.0) pg MCHC 32.1 (31.0-36.0) g/dl RDW 16.1 H (11.0-16.0) % Plt Count 186 (160-400) X10*3/uL MPV 10.7 (9.4-12.4) fL Immature Gran % (Auto) 0.3 (0.0-0.4) % Neut % (Auto) 77.8 H (45-73) % Lymph % (Auto) 9.1 L (20-40) % [place] % (Auto) 10.6 (2-11) % Eos % (Auto) 1.5 (0-4) % Baso % (Auto) 0.7 (0-2) % Lymph # (Auto) 0.8 L (1.2-4.9) X10*3/uL [place] # (Auto) 1.0 (0.1-1.2) X10*3/uL Eos # (Auto) 0.1 (0.0-0.4) X10*3/uL Baso # (Auto) 0.1 (0.0-0.2) X10*3/uL Abs Immat Gran (auto) 0.03 (0.00-0.03) X10*3/uL Absolute Neuts (auto) 7.0 (2.0-8.3) X10*3/uL Absolute Nucleated RBC 0.000 (0.0-0.012) X10*3/uL Nucleated RBC % (auto) 0.0 (0.0-0.2) /100WBC Sodium 137 (135-145) mmol/L Potassium 4.6 (3.3-5.1) mmol/L Chloride 104 (96-108) mmol/L Carbon Dioxide 22 (22-29) mmol/L Anion Gap 16 (12-20) BUN 23 H (9-16) mg/dL Creatinine 1.18 (0.5-1.4) mg/dL Estim Creat Clear Calc 52.4 Estimated GFR 60 Random Glucose 84 (60-115) mg/dL Lactic Acid 2.2 H* (0.5-2.0) mmol/L Calcium 8.9 (8.4-10.2) mg/dL Total Bilirubin 0.8 (0.0-1.0) mg/dL AST 21 (5-37) U/L ALT 16 (0-40) U/L Alkaline Phosphatase 87 D (39-117) U/L Total Protein 6.8 (6.5-8.0) g/dL Albumin 3.7 (3.5-5.0) g/dL COVID-19 ([facility]) (Negative) COVID-19 Clin Com 11/29/20 Range/Units 19:15 WBC (4.8-10.8) X10*3/uL RBC (4.60-5.80) X10*6/uL Hgb (14.0-18.0) g/dl Hct (42-52) % MCV (80-98) fL MCH (27.0-33.0) pg MCHC (31.0-36.0) g/dl RDW (11.0-16.0) % Plt Count (160-400) X10*3/uL MPV (9.4-12.4) fL Immature Gran % (Auto) (0.0-0.4) % Neut % (Auto) (45-73) % Lymph % (Auto) (20-40) % [place] % (Auto) (2-11) % Eos % (Auto) (0-4) % Baso % (Auto) (0-2) % Lymph # (Auto) (1.2-4.9) X10*3/uL [place] # (Auto) (0.1-1.2) X10*3/uL Eos # (Auto) (0.0-0.4) X10*3/uL Baso # (Auto) (0.0-0.2) X10*3/uL Abs Immat Gran (auto) (0.00-0.03) X10*3/uL Absolute Neuts (auto) (2.0-8.3) X10*3/uL Absolute Nucleated RBC (0.0-0.012) X10*3/uL Nucleated RBC % (auto) (0.0-0.2) /100WBC Sodium (135-145) mmol/L Potassium (3.3-5.1) mmol/L Chloride (96-108) mmol/L Carbon Dioxide (22-29) mmol/L Anion Gap (12-20) BUN (9-16) mg/dL Creatinine (0.5-1.4) mg/dL Estim Creat Clear Calc Estimated GFR Random Glucose (60-115) mg/dL Lactic Acid (0.5-2.0) mmol/L Calcium (8.4-10.2) mg/dL Total Bilirubin (0.0-1.0) mg/dL AST (5-37) U/L ALT (0-40) U/L Alkaline Phosphatase (39-117) U/L Total Protein (6.5-8.0) g/dL Albumin (3.5-5.0) g/dL COVID-19 ([facility]) Negative (Negative) COVID-19 Clin Com See Note Discharge Plan Discharge Clinical Impression: Cellulitis and abscess of foot Patient Disposition: Admitted As Inpatient
[2020-11-29 18:57] VITALS: BP 155/65; PULSE 58; RESP 16; TEMP 37.5; O2SAT 95
[2020-11-29 19:23] LABS: MANUAL DIFF FLAG NO
[2020-11-29 19:28] LABS: Basophils Absolute Auto 0.1 X10*3/uL (0.0-0.2); Basophils Percent Auto 0.7 % (0-2); Eosinophils Absolute Auto 0.1 X10*3/uL (0.0-0.4); Eosinophils Percent Auto 1.5 % (0-4); Hematocrit 34.9 % (42-52); Hemoglobin 11.2 g/dl (14.0-18.0); Imm Gran Abs Auto 0.03 X10*3/uL (0.00-0.03); Imm Gran Pct Auto 0.3 % (0.0-0.4); Lymphocytes Absolute Auto 0.8 X10*3/uL (1.2-4.9); Lymphocytes Percent Auto 9.1 % (20-40); Mean Corpuscular HGB Conc 32.1 g/dl (31.0-36.0); Mean Corpuscular Volume 93.6 fL (80-98); Mean Platelet Volume 10.7 fL (9.4-12.4); Monocytes Percent Auto 10.6 % (2-11); Neutrophils Percent Auto 77.8 % (45-73); Platelet Count 186 X10*3/uL (160-400); Red Blood Count 3.73 X10*6/uL (4.60-5.80); Red Cell Distribution Width 16.1 % (11.0-16.0); White Blood Count 8.9 X10*3/uL (4.8-10.8)
[2020-11-29 19:35] VITALS: PULSE 60; RESP 15; TEMP 37.9; O2SAT 96
[2020-11-29] MEDS: 0.9 % Sodium Chloride 500 ML 999 ML IV (19:40)
[2020-11-29] MEDS: methylPREDNISolone Sod Succ 125 MG/2 ML VIAL IVPUSH (19:41)
[2020-11-29] MEDS: Albuterol Sulfate 90 MCG 8 GM INHALER 2 PUFF INHALE (19:42)
[2020-11-29] MEDS: Acetaminophen 325 MG TABLET 950 MG PO (19:44)
[2020-11-29 19:45] LABS: COVID-19 Test Negative (Negative); IDNOW Serial# 9DD0AD1C
--- NOTE | 2020-11-29 19:46 | PC.NURSE ---
This RN assisting primary RN, Jaqui Girard. Pt aaox4, resting on stretcher in NAD, breathing with ease on RA. Pt denies pain/discomfort. 2nd set of BC obtained by this RN, PIV placed 22g in R hand without signs of infiltration. Pt with 500ml of NS infusing appropriately as ordered in JUN. Pt medicated per JUN. Pt awaiting lab results and dispo, is aware and agreeable to plan. Stretcher in low locked position, rails raised x 2, call tanner within reach.
[2020-11-29 20:05] LABS: Alanine Aminotransferase 16 U/L (0-40); Albumin Level 3.7 g/dL (3.5-5.0); Alkaline Phosphatase 87 U/L (39-117); Anion Gap 16 (12-20); Aspartate Amino Transferase 21 U/L (5-37); Bilirubin Total 0.8 mg/dL (0.0-1.0); Blood Urea Nitrogen 23 mg/dL (9-16); Calcium 8.9 mg/dL (8.4-10.2); Carbon Dioxide 22 mmol/L (22-29); Chloride 104 mmol/L (96-108); Creatinine Clr Calc Pharmacy 52.4; Estimated Glomerular Filt Rate 60; Glucose Random 84 mg/dL (60-115); Potassium 4.6 mmol/L (3.3-5.1); Sodium 137 mmol/L (135-145); Total Protein 6.8 g/dL (6.5-8.0)
[2020-11-29 20:26] LABS: Lactic Acid 2.2 mmol/L (0.5-2.0)
[2020-11-29 21:03] LABS: B Type Natriuretic Peptide 858 pg/mL (<100)
[2020-11-29] MEDS: Ibuprofen 800 MG TABLET PO (21:16)
[2020-11-29] MEDS: Piperacillin Sodium/Tazobactam 3.375 GM in 0.9 % Sodium Chloride 50 ML IV (21:17)
[2020-11-29 21:21] LABS: Reflex Lactate? Lactic Acid Added
--- NOTE | 2020-11-29 21:23 | P.HPHOSP_ITS ---
History of Present Illness Date of Service: 11/29/20 Chief Complaint: Foot swelling This is a 75-year-old male with past medical history of diabetes, diabetic neuropathy, hypertension, AFib, recent osteomyelitis status post amputation of his right big toe in 08/06 presents to the hospital with right foot swelling, and an ulcer on his right 3rd toe. Patient reports that he noticed his foot is swollen and 3rd toe ulcer about 2 weeks ago, he reports that the wound worsened quickly and progressed significantly within last few days. He denies any pain, denies any fever or chills, he denies any abdominal pain nausea or vomiting, no diarrhea constipation, no urinary symptoms and no lower extremity edema. She fernandez was also noted to be wheezing in the ED therefore a chest x-ray was obtained. Patient does report some shortness of breath orthopnea and PND this been going on for the past few days. On arrival to the ED patient hemodynamically stable with no significant abnormal vitals Labs are significant for lactic acid of 2.2, ESR of 60, CRP of 8.03, normal WBC count of 8.9, BNP of 858. otherwise unremarkable Chest x-ray significant for trace right-sided pleural effusion, no airspace consolidation. Review of Systems Review of Systems: Yes all other systems are reviewed and are negative [facility] Medical History Abscess of right foot Anxiety and depression Asthma Atrial fibrillation with rapid ventricular response Avascular necrosis of bone of hip Coronary artery disease Diabetic foot ulcer Diabetic nephropathy Diabetic neuropathy Diverticular disease Hypercholesterolemia Hypertension Open wound Osteomyelitis of toe Preoperative cardiovascular examination Thrombocytopenia Tobacco abuse Tubular adenoma of colon Type 2 diabetes mellitus with hyperglycemia Vitamin D deficiency Family History Father Diabetes Hypertension CVD (cardiovascular disease) Stroke Mother CVD (cardiovascular disease) Hypertension Cancer Sister No problems noted. Surgical History Amputated toe of right foot Amputation finger History of cataract surgery History of surgery Social History Household Members: Family Household Members Other:: 4 Housing: House Do you presently have visiting nurse or other home services: Yes Alcohol intake: never Patient Tobacco Use Status: Current everyday Tobacco user Tobacco use type: Cigarette Cigarettes Per Day: 7 Smoked in Last 30 Days: Yes Patient Interested in Nicotine Replacement: No Patient Given Instructions on How to Stop Smoking: No Second Hand Smoke Exposure: No Use of substances other than those prescribed or required for medical reasons: No Currently Displaying Signs/Symptoms of Drug Intoxication Withdrawal: No Any prior treatment program specific to substance use: No Have you been hit, kicked, punched, or otherwise hurt by someone within the past year? If so, by whom?: No Do you feel safe in your current relationship?: Yes Is there a partner from a previous relationship who is making you feel unsafe now?: No Are you made to feel afraid or neglected: No Advance Directives: Yes Advance Directives on File: Yes Advance Directives Date on File: 07/24/20 Do you have thoughts of harming others: None Do you have a plan to hurt others: No Plan Recently lost weight without trying: No Eating poorly because of decreased appetite: No Nutrition Risks: No Nutritional Risk Poor oral hygiene: No (has only few remaining natural teeth) service: No Current occupational status: retired [employer] Allergies Allergy/AdvReac Type Severity Reaction Status Date / Time No Known Allergies Allergy Mild Verified 10/09/20 13:15 Active Medications: Current Medications Generic Name Dose Route Start Last Admin Trade Name Freq PRN Reason Stop Dose Admin Acetaminophen 650 mg 11/29/20 21:17 Acetaminophen 325 Mg Tablet PO Q6H PRN Pain, Mild (Pain Scale 1-3) Amiodarone HCl 200 mg 11/30/20 09:00 Amiodarone Hcl 200 Mg Tablet PO DAILY [facility] Amlodipine Besylate 10 mg 11/30/20 09:00 Amlodipine Besylate 10 Mg Tablet PO DAILY [facility] Protocol Apixaban 5 mg 11/29/20 21:17 Apixaban 5 Mg Tablet PO BID [facility] Atorvastatin Calcium 10 mg 11/29/20 21:17 Atorvastatin Calcium 10 Mg Tablet PO BEDTIME [facility] Clopidogrel Bisulfate 75 mg 11/30/20 09:00 Clopidogrel Bisulfate 75 Mg Tablet PO DAILY [facility] Dextrose 25 gm 11/29/20 21:17 Dextrose 50 % 25 Gm/50 Ml Vial IVPUSH Q15M PRN per Hypoglycemia Standing Ord. Protocol Docusate Sodium 100 mg 11/29/20 21:17 Docusate Sodium 100 Mg Capsule PO DAILY PRN Constipation Glucose 15 gm 11/29/20 21:17 Glucose Gel 15 Gm Gel..Gram. PO Q15M PRN per Hypoglycemia Standing Ord. Protocol Vancomycin HCl 1,500 mg/ 500 mls @ 333.333 mls/hr 11/29/20 21:17 Sodium Chloride IV Q12H [facility] Piperacillin Sod/Tazobactam 50 mls @ 100 mls/hr 11/29/20 21:17 Sod 3.375 gm/ Sodium Chloride IV Q6H [facility] Lactated Ringer's 1,000 mls @ 100 mls/hr 11/29/20 21:17 Lr IVCONT .Q10H [facility] Insulin Human Lispro 0 unit 11/29/20 21:17 Insulin Lispro 100 Unit/Ml 3 Ml Vial SUBCUT QIDACHS [facility] Protocol Lisinopril 40 mg 11/30/20 09:00 Lisinopril 40 Mg Tablet PO DAILY [facility] Protocol Metoprolol Succinate 100 mg 11/30/20 09:00 Metoprolol Succinate Er 100 Mg Tab.Er.24h PO DAILY [facility] Protocol Mirtazapine 7.5 mg 11/29/20 21:17 Mirtazapine 7.5 Mg Tablet PO BEDTIME [facility] Non-Formulary Medication 1 drop 11/30/20 09:00 Timolol EYE-LEFT DAILY [facility] Ondansetron HCl 4 mg 11/29/20 21:17 Ondansetron Hcl 4 Mg/2 Ml Vial IVPUSH Q8H PRN Nausea and Vomiting Pharmacy Consult 1 each 11/29/20 21:17 Consult Rx Vancomycin Dosing MISCELLANE DAILY PRN Consult order Sodium Chloride 3 ml 11/30/20 00:00 0.9 % Sodium Chloride Flush 3 Ml Syringe IVFLUSH QSHIFT [facility] Timolol Maleate 1 drop 11/29/20 21:17 Timolol Maleate 0.5 % Oph [place] 5 Ml Drbtl EYE-BOTH BID [facility] Vitamin D 25 mcg 11/30/20 09:00 Cholecalciferol (Vitamin D3) 25 Mcg Tablet PO DAILY [facility] Home Medications Medication Instructions Recorded Confirmed Last Taken Type cholecalciferol (vitamin D3) 25 25 mcg PO DAILY 04/14/20 11/29/20 07/23/20 History mcg (1,000 unit) capsule timolol 0.25 % eye drops 1 drp OPHTHALMIC-LEFT DAILY 04/14/20 11/29/20 07/23/20 History amlodipine 10 mg tablet 10 mg PO DAILY 08/21/20 11/29/20 Unknown History lisinopril 40 mg tablet 40 mg PO DAILY 08/21/20 11/29/20 Unknown History timolol maleate 0.5 % eye drops 1 drp OPHTHALMIC (EYE) BID 08/21/20 11/29/20 Unknown History amoxicillin 875 mg-potassium 1 tab PO BID 11/29/20 11/29/20 Unknown History clavulanate 125 mg tablet Physical Exam Vital Signs and Narrative: Vital Signs: Last Vital Signs Temp 100.3 F 11/29/20 19:35 Pulse 60 11/29/20 19:35 Resp 15 11/29/20 19:35 BP 155/65 H 11/29/20 18:57 Pulse Ox 96 11/29/20 19:35 Body Mass Index 25.8 Const: General: cooperative and no acute distress Orientation/consc iousness: patient oriented x3 Eyes: General: appearance normal, both eyes and all related structures Pupils: Equal, round and reactive pupils present Chest: Other: Crackles mostly heard on the right Resp: Effort & Inspection: normal respiratory effort and able to speak in comp lete sentences Cardio: Rate: regular rate Rhythm: regular rhythm GI: Palpation (GI): Soft to palpation Auscultation: normal bowel sounds Skin: General skin exam: no rashes or lesions noted Neuro: General: patient oriented x3 Cranial nerves: Yes Equal, round and reactive pupils present Cognition (Neuro): normal cognition Extrem: Other: Right foot erythema, edema, warmth, has 1 deep ulcer on the 3rd toe. Status post amputation of the right big toe . The wound appears well healed Results Labs CBC and Chem 7: 11/29/20 19:15 11/29/20 19:15 Labs: Laboratory Results - last 24 hr 11/29/20 11/29/20 11/29/20 19:14 19:15 19:15 MCV 93.6 MCH 30.0 MCHC 32.1 RDW 16.1 H Plt Count 186 MPV 10.7 Immature Gran % (Auto) 0.3 Neut % (Auto) 77.8 H Lymph % (Auto) 9.1 L Andrew % (Auto) 10.6 Eos % (Auto) 1.5 Baso % (Auto) 0.7 Lymph # (Auto) 0.8 L Andrew # (Auto) 1.0 Eos # (Auto) 0.1 Baso # (Auto) 0.1 Abs Immat Gran (auto) 0.03 Absolute Neuts (auto) 7.0 Absolute Nucleated RBC 0.000 Nucleated RBC % (auto) 0.0 Anion Gap 16 Estim Creat Clear Calc 52.4 Estimated GFR 60 Random Glucose 84 Lactic Acid 2.2 H* Calcium 8.9 Total Bilirubin 0.8 AST 21 ALT 16 Alkaline Phosphatase 87 D B-Natriuretic Peptide Total Protein 6.8 Albumin 3.7 COVID-19 ([facility]) COVID-19 Clin Com 11/29/20 11/29/20 19:15 19:15 MCV MCH MCHC RDW Plt Count MPV Immature Gran % (Auto) Neut % (Auto) Lymph % (Auto) Andrew % (Auto) Eos % (Auto) Baso % (Auto) Lymph # (Auto) Andrew # (Auto) Eos # (Auto) Baso # (Auto) Abs Immat Gran (auto) Absolute Neuts (auto) Absolute Nucleated RBC Nucleated RBC % (auto) Anion Gap Estim Creat Clear Calc Estimated GFR Random Glucose Lactic Acid Calcium Total Bilirubin AST ALT Alkaline Phosphatase B-Natriuretic Peptide 858 H Total Protein Albumin COVID-19 ([facility]) Negative COVID-19 Clin Com See Note Imaging Radiologist's Impressions: Impressions Chest X-Ray 11/29/20 18:19 IMPRESSION: Possible, trace right-sided pleural effusion, new when compared to the prior examination. Foot X-Ray 11/29/20 18:19 IMPRESSION: 1. Redemonstration of 1st metatarsal and 2nd metatarsophalangeal resections. No new osseous erosion or periosteal reaction. 2. Osteomyelitis may be occult on plain radiographs and if there is clinical concern, nuclear medicine bone scan or MRI without and with contrast could help further evaluate. Assessment and Plan (1) Cellulitis and abscess of foot: Status: Acute (2) Open wound: Status: Acute (3) Diabetic foot ulcer: Status: Acute (4) History of osteomyelitis: Status: Acute 75-year-old male with past medical history of 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, diabetes, diabetic neuropathy, presents to the hospital with right foot swelling, erythema, as well as 3rd right toe ulcer # diabetic foot ulcer - has an open wound of the 3rd right toe - elevated ESR and CRP - concerning for osteomyelitis - will obtain MRI of - IV antibiotics - infectious disease consulted - general surgery consulted # cellulitis of foot - start him on IV antibiotics - rule out osteomyelitis as above - follow cultures # AFib - continue metoprolol and apixaban as well as amiodarone # hypertension - stable - continue amlodipine DVT prophylaxis: Heparin subQ Quality Stroke Does the patient have a stroke diagnosis?: No VTE Prior VTE?: No VTE Risk Level:: Medical - moderate - high VTE Device Contraindication: Treatment Not Indicated VTE Drug Contraindication: N/A - Med Ordered
[2020-11-29 21:52] VITALS: BP 154/62; PULSE 58; RESP 16; TEMP 37.1; O2SAT 95
[2020-11-29 21:57] LABS: C Reactive Protein 8.03 mg/dL (< or = 0.50)
[2020-11-29] MEDS: vancomycin HCL 1,000 MG in 0.9 % Sodium Chloride 250 ML 270 MG IV (22:13)
[2020-11-29 22:36] LABS: ~Lactic Acid-LAB USE ONLY 0.9 mmol/L (0.5-2.0)
[2020-11-29] MEDS: Lactated Ringers 1,000 ML 100 ML IVCONT (22:40)
[2020-11-29] MEDS: Apixaban 5 MG TABLET PO (22:41)
[2020-11-29] MEDS: Mirtazapine 7.5 MG TABLET PO (22:41)
[2020-11-29] MEDS: Atorvastatin Calcium 10 MG TABLET PO (22:41)
--- NOTE | 2020-11-29 22:41 | PC.NURSE ---
pt awake and alert, given sandwich and soda, able to feed himself. no difficulty swallowing. pt ambulatory at home with assist of walker at times.
--- NOTE | 2020-11-29 22:57 | PC.NURSE ---
report given to rn on floor, pt ready for transport.
[2020-11-29 23:37] VITALS: BP 138/61; PULSE 53; RESP 16; TEMP 36.6; O2SAT 97
[2020-11-29 23:57] LABS: Erythrocyte Sedimentation Rate 60 MM/HR (0-15)
[2020-11-30 00:28] LABS: Glucose, Whole Blood 204 mg/dL (60-115)
[2020-11-30] MEDS: Insulin Lispro 100 UNIT/ML 3 ML VIAL SUBCUT ×5 (00:30→20:27)
[2020-11-30] MEDS: Piperacillin Sodium/Tazobactam 3.375 GM in 0.9 % Sodium Chloride 50 ML IV ×4 (03:14→20:07)
[2020-11-30 03:17] VITALS: BMI 25.8
[2020-11-30 04:00] VITALS: BP 128/61; PULSE 54; RESP 16; TEMP 36.8; O2SAT 97
[2020-11-30 06:45] LABS: Basophils Percent Auto 0.1 % (0-2); Hematocrit 34.3 % (42-52); Hemoglobin 11.4 g/dl (14.0-18.0); Imm Gran Abs Auto 0.03 X10*3/uL (0.00-0.03); Imm Gran Pct Auto 0.4 % (0.0-0.4); Lymphocytes Absolute Auto 0.3 X10*3/uL (1.2-4.9); Lymphocytes Percent Auto 4.8 % (20-40); MANUAL DIFF FLAG SCAN; Mean Corpuscular HGB Conc 33.2 g/dl (31.0-36.0); Mean Corpuscular Volume 90.3 fL (80-98); Mean Platelet Volume 11.3 fL (9.4-12.4); Monocytes Absolute Auto 0.1 X10*3/uL (0.1-1.2); Monocytes Percent Auto 1.7 % (2-11); Neutrophils Absolute Auto 6.6 X10*3/uL (2.0-8.3); Platelet Count 215 X10*3/uL (160-400); Red Cell Distribution Width 15.7 % (11.0-16.0); SCAN SMEAR FLAG 1; White Blood Count 7.1 X10*3/uL (4.8-10.8)
[2020-11-30 06:53] VITALS: BP 131/54; PULSE 50; RESP 20; TEMP 36.1; O2SAT 96
[2020-11-30 07:08] LABS: Anion Gap 14 (12-20); Blood Urea Nitrogen 20 mg/dL (9-16); Calcium 8.5 mg/dL (8.4-10.2); Carbon Dioxide 22 mmol/L (22-29); Chloride 105 mmol/L (96-108); Creatinine Clr Calc Pharmacy 51.5; Estimated Glomerular Filt Rate 59; Glucose Random 229 mg/dL (60-115); Potassium 3.8 mmol/L (3.3-5.1); Sodium 137 mmol/L (135-145)
[2020-11-30 07:17] LABS: SLIDE REVIEW VERIFIED
[2020-11-30 07:27] LABS: Glucose, Whole Blood 210 mg/dL (60-115)
[2020-11-30] MEDS: Lactated Ringers 1,000 ML 100 ML IVCONT (07:46)
[2020-11-30] MEDS: amLODIPine Besylate 10 MG TABLET PO (07:47)
[2020-11-30] MEDS: Metoprolol Succinate ER 100 MG TAB.ER.24H PO (07:47)
[2020-11-30] MEDS: lisinopriL 40 MG TABLET PO (07:47)
[2020-11-30] MEDS: Amiodarone HCL 200 MG TABLET PO (07:47)
[2020-11-30] MEDS: Cholecalciferol (Vitamin D3) 25 MCG TABLET PO (07:47)
[2020-11-30] MEDS: Clopidogrel Bisulfate 75 MG TABLET PO (07:48)
[2020-11-30] MEDS: Furosemide 40 MG/4 ML VIAL IVPUSH (07:48)
[2020-11-30] MEDS: Apixaban 5 MG TABLET PO ×2 (07:48→20:07)
[2020-11-30] MEDS: timoloL maleate 0.5 % Oph Sol 5 ML DRBTL 1 DROP EYE-BOTH ×2 (09:24→20:27)
--- NOTE | 2020-11-30 10:15 | MHC.CM.PN ---
CM MET WITH PT WHO REPORTS HE LIVES AT HOME WITH HIS AND ADULT SON. PT REPORTS HE HAS A VNA. HE BELIEVES IT IS [facility] BUT IS NOT SURE. PT REPORTS HE HAS A CANE AND A WALKER AT HOME AND USES THEM PRN. PT HAS A HCP ON FILE AND REPORTS HIS PCP IS MEAGAN LAWSON. IMM DELIVERED CURRENT DC PLAN IS HOME WITH RESUMPTION OF V[facility] SERVICES TO TRANSPORT
[2020-11-30 11:36] LABS: Glucose, Whole Blood 155 mg/dL (60-115)
[2020-11-30] MEDS: vancomycin HCL 750 MG in 0.9 % Sodium Chloride 250 ML 265 MG IV ×2 (11:40→21:17)
--- NOTE | 2020-11-30 12:06 | P.PNIM_ITS ---
Subjective Subjective Date of Service: 11/30/20 Interval History: the patient was seen and evaluated this morning Laying in bed, feels comfortable Reporting not feeling anything in his lower extremity but it is swollen around baseline Denies any fever, chills or shortness of breath No reported other overnight events. Systemic review: No fever, chills or weakness No chest pain, palpitation No shortness of breath or coughing No abdominal pain, nausea or vomiting No urinary symptoms Tip of 3rd toe infection Physical Exam Vital Signs: Vital Signs: Last Vital Signs Temp 97 F 11/30/20 06:53 Pulse 50 11/30/20 06:53 Resp 20 11/30/20 06:53 BP 131/54 L 11/30/20 06:53 Pulse Ox 96 11/30/20 06:53 Body Mass Index 25.8 Const: Other: Constitutional : Alert, oriented, not in distress Neck : Normal inspection, Supple Cardiovascular : RRR, S1 S2, no lower extremity edema, sign of chronic PAD Respiratory : Good bilateral air entry, no crackles, wheezes or rhonchi Gastrointestinal: soft, lax, Normal bowel sounds, Non tender Skin : Warm, Dry, right lower extremity swollen at the foot level which seems chronic with no erythema or warmth. Tip of 3rd toe with dark spot. Neurological : Alert & oriented x3, No focal deficit Objective Data Current Medications Generic Name Dose Route Start Last Admin Trade Name Freq PRN Reason Stop Dose Admin Acetaminophen 650 mg 11/29/20 21:17 Acetaminophen 325 Mg Tablet PO Q6H PRN Pain, Mild (Pain Scale 1-3) Amiodarone HCl 200 mg 11/30/20 09:00 11/30/20 07:47 Amiodarone Hcl 200 Mg Tablet PO 200 mg DAILY PRAMOD Administration Amlodipine Besylate 10 mg 11/30/20 09:00 11/30/20 07:47 Amlodipine Besylate 10 Mg Tablet PO 10 mg DAILY PRAMOD Administration Protocol Apixaban 5 mg 11/29/20 21:17 11/30/20 07:48 Apixaban 5 Mg Tablet PO 5 mg BID PRAMOD Administration Atorvastatin Calcium 10 mg 11/29/20 21:17 11/29/20 22:41 Atorvastatin Calcium 10 Mg Tablet PO 10 mg BEDTIME PRAMOD Administration Clopidogrel Bisulfate 75 mg 11/30/20 09:00 11/30/20 07:48 Clopidogrel Bisulfate 75 Mg Tablet PO 75 mg DAILY PRAMOD Administration Dextrose 25 gm 11/29/20 21:17 Dextrose 50 % 25 Gm/50 Ml Vial IVPUSH Q15M PRN per Hypoglycemia Standing Ord. Protocol Docusate Sodium 100 mg 11/29/20 21:17 Docusate Sodium 100 Mg Capsule PO DAILY PRN Constipation Furosemide 40 mg 11/30/20 09:00 11/30/20 07:48 Furosemide 40 Mg/4 Ml Vial IVPUSH 40 mg DAILY PRAMOD Administration Protocol Glucose 15 gm 11/29/20 21:17 Glucose Gel 15 Gm Gel..Gram. PO Q15M PRN per Hypoglycemia Standing Ord. Protocol Piperacillin Sod/Tazobactam 50 mls @ 100 mls/hr 11/30/20 03:00 11/30/20 09:58 Sod 3.375 gm/ Sodium Chloride IV Infused Q6H PRAMOD Infusion Vancomycin HCl 750 mg/ Sodium 265 mls @ 265 mls/hr 11/30/20 10:00 11/30/20 11:40 Chloride IV 265 mls/hr Q12H PRAMOD Administration Insulin Human Lispro 0 unit 11/29/20 21:17 11/30/20 11:39 Insulin Lispro 100 Unit/Ml 3 Ml Vial SUBCUT 2 unit QIDACHS PRAMOD Administration Protocol Lisinopril 40 mg 11/30/20 09:00 11/30/20 07:47 Lisinopril 40 Mg Tablet PO 40 mg DAILY PRAMOD Administration Protocol Metoprolol Succinate 100 mg 11/30/20 09:00 11/30/20 07:47 Metoprolol Succinate Er 100 Mg Tab.Er.24h PO 100 mg DAILY PRAMOD Administration Protocol Mirtazapine 7.5 mg 11/29/20 21:17 11/29/20 22:41 Mirtazapine 7.5 Mg Tablet PO 7.5 mg BEDTIME PRAMOD Administration Ondansetron HCl 4 mg 11/29/20 21:17 Ondansetron Hcl 4 Mg/2 Ml Vial IVPUSH Q8H PRN Nausea and Vomiting Pharmacy Consult 1 each 11/29/20 21:17 Consult Rx Vancomycin Dosing MISCELLANE DAILY PRN Consult order Sodium Chloride 3 ml 11/30/20 00:00 11/30/20 07:49 0.9 % Sodium Chloride Flush 3 Ml Syringe IVFLUSH Not Given QSHIFT [facility] Timolol Maleate 1 drop 11/29/20 21:17 11/30/20 09:24 Timolol Maleate 0.5 % [place] 5 Ml Drbtl EYE-BOTH 1 drop BID PRAMOD Administration Vitamin D 25 mcg 11/30/20 09:00 11/30/20 07:47 Cholecalciferol (Vitamin D3) 25 Mcg Tablet PO 25 mcg DAILY PRAMOD Administration Labs CBC & Chem 7: 11/30/20 05:42 11/30/20 05:42 Labs: Laboratory Results - last 24 hr 11/29/20 11/29/20 11/29/20 19:14 19:15 19:15 MCV 93.6 MCH 30.0 MCHC 32.1 RDW 16.1 H Plt Count 186 MPV 10.7 Immature Gran % (Auto) 0.3 Neut % (Auto) 77.8 H Lymph % (Auto) 9.1 L [place] % (Auto) 10.6 Eos % (Auto) 1.5 Baso % (Auto) 0.7 Lymph # (Auto) 0.8 L [place] # (Auto) 1.0 Eos # (Auto) 0.1 Baso # (Auto) 0.1 Abs Immat Gran (auto) 0.03 Absolute Neuts (auto) 7.0 Absolute Nucleated RBC 0.000 Nucleated RBC % (auto) 0.0 Smear Tech's Comments ESR Anion Gap 16 Estim Creat Clear Calc 52.4 Estimated GFR 60 POC Glucose Random Glucose 84 Lactic Acid 2.2 H* Lactic Acid Fup @ 2Hr Calcium 8.9 Total Bilirubin 0.8 AST 21 ALT 16 Alkaline Phosphatase 87 D C-Reactive Protein 8.03 H B-Natriuretic Peptide Total Protein 6.8 Albumin 3.7 COVID-19 (KISHAN) COVID-19 Clin Com 11/29/20 11/29/20 11/29/20 19:15 19:15 22:07 MCV MCH MCHC RDW Plt Count MPV Immature Gran % (Auto) Neut % (Auto) Lymph % (Auto) [place] % (Auto) Eos % (Auto) Baso % (Auto) Lymph # (Auto) [place] # (Auto) Eos # (Auto) Baso # (Auto) Abs Immat Gran (auto) Absolute Neuts (auto) Absolute Nucleated RBC Nucleated RBC % (auto) Smear Tech's Comments ESR 60 H Anion Gap Estim Creat Clear Calc Estimated GFR POC Glucose Random Glucose Lactic Acid Lactic Acid Fup @ 2Hr Calcium Total Bilirubin AST ALT Alkaline Phosphatase C-Reactive Protein B-Natriuretic Peptide 858 H Total Protein Albumin COVID-19 (KISHAN) Negative COVID-19 [employer] Com See Note 11/29/20 11/30/20 11/30/20 22:07 00:23 05:42 MCV 90.3 MCH 30.0 MCHC 33.2 RDW 15.7 Plt Count 215 MPV 11.3 Immature Gran % (Auto) 0.4 Neut % (Auto) 93.0 H Lymph % (Auto) 4.8 L [place] % (Auto) 1.7 L Eos % (Auto) 0.0 Baso % (Auto) 0.1 Lymph # (Auto) 0.3 L [place] # (Auto) 0.1 Eos # (Auto) 0.0 Baso # (Auto) 0.0 Abs Immat Gran (auto) 0.03 Absolute Neuts (auto) 6.6 Absolute Nucleated RBC 0.000 Nucleated RBC % (auto) 0.0 Smear Tech's Comments VERIFIED ESR Anion Gap Estim Creat Clear Calc Estimated GFR POC Glucose 204 H Random Glucose Lactic Acid Lactic Acid Fup @ 2Hr 0.9 Calcium Total Bilirubin AST ALT Alkaline Phosphatase C-Reactive Protein B-Natriuretic Peptide Total Protein Albumin COVID-19 (KISHAN) COVID-[employer] 11/30/20 11/30/20 11/30/20 05:42 06:55 11:31 MCV MCH MCHC RDW Plt Count MPV Immature Gran % (Auto) Neut % (Auto) Lymph % (Auto) [place] % (Auto) Eos % (Auto) Baso % (Auto) Lymph # (Auto) [place] # (Auto) Eos # (Auto) Baso # (Auto) Abs Immat Gran (auto) Absolute Neuts (auto) Absolute Nucleated RBC Nucleated RBC % (auto) Smear Tech's Comments ESR Anion Gap 14 Estim Creat Clear Calc 51.5 Estimated GFR 59 POC Glucose 210 H 155 H Random Glucose 229 H D Lactic Acid Lactic Acid Fup @ 2Hr Calcium 8.5 Total Bilirubin AST ALT Alkaline Phosphatase C-Reactive Protein B-Natriuretic Peptide Total Protein Albumin COVID-19 (KISHAN) COVID-19 [employer] Microbiology Microbiology Results: Microbiology 11/29/20 19:14 Gram Stain - Final Toe Right Third Routine Culture - Preliminary Culture in progress. 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 # RLE cellulitis open wound of the 3rd right toe elevated ESR and CRP concerning for osteomyelitis pending MRI IV antibiotics infectious disease consulted general surgery consulted # AFib continue metoprolol and apixaban as well as amiodarone # hypertension stable continue amlodipine DVT prophylaxis eliquis Quality Stroke Does the patient have a stroke diagnosis?: No VTE Prior VTE?: No VTE Risk Level:: Medical - moderate - high VTE Device Contraindication: Treatment Not Indicated VTE Drug Contraindication: N/A - Med Ordered
--- NOTE | 2020-11-30 14:17 | P.CONGS_ITS ---
History of Present Illness Consult details Consult date: 11/30/20 Reason for consult: other (Cellulitis right foot and new ulcer right 3rd toe) Narrative: This is a 75-year-old gentleman with a history of diabetes mellitus and peripheral neuropathy who presented to the emergency department yesterday with a several-day history of increasing redness and swelling of the right foot. In July, he presented with an infection involving the right foot and was found to have significant peripheral vascular disease. Right anterior tibial angioplasty was performed by Dr. Oscar. Dr. Yu subsequently performed an amputation of the right 1st and 2nd toes. Because of the severity of his infection and soft tissue loss in the area, complete closure of the soft tissue defect could not be achieved and he has been [facility] His surgical wound has been healing well. Sometime in the last couple of weeks, he noticed a new wound at the tip of his right 3rd toe. Cultures obtained in the [facility] on 11/27/2020 are growing MRSA and Strep pyogenes. X-rays of the right foot are inconclusive for the presence of osteomyelitis of the right 3rd toe. MRI has been done and demonstrates osteomyelitis involving the distal phalanx and likely the middle phalanx of the right 3rd toe as well. Currently, he has no complaints. He denies pain in the right foot. Review of Systems Constitutional: Constitutional: Denies chills and Denies fever(s) Eyes: Eyes: Reports requires corrective lenses ENT: Denies dysphagia and Denies sore throat Cardiovascular: Cardiovascular: Denies chest pain, Denies palpitations and Denies dyspnea Respiratory: Respiratory: Denies cough, Denies dyspnea and Denies wheezing Gastrointestinal: Gastrointestinal: Reports no additional gastrointestinal complaints and Denies dysphagia Musculoskeletal: Musculoskeletal: Reports as per HPI Integumentary/Breasts: Skin/Breast: Denies pruritus and Denies rash Neurologic: Reports memory loss Psychiatric: Psychiatric: Reports memory loss Endocrine: Endocrine: Denies palpitations Hematologic/Lymphatic: Hematologic/Lymphatic: Reports easy bleeding (On apixaban) Allergic/Immunologic: Allergic/Immunologic: Denies wheezing PMFSH Past Medical History Medical History Abscess of right foot Anxiety and depression Asthma Atrial fibrillation with rapid ventricular response Avascular necrosis of bone of hip Coronary artery disease Diabetic foot ulcer Diabetic nephropathy Diabetic neuropathy Diverticular disease Hypercholesterolemia Hypertension Open wound Osteomyelitis of toe Preoperative cardiovascular examination Thrombocytopenia Tobacco abuse Tubular adenoma of colon Type 2 diabetes mellitus with hyperglycemia Vitamin D deficiency Family History Family History (Updated 11/30/20 @ 14:26 by Aditi Tolentino MD) Father Diabetes Hypertension CVD (cardiovascular disease) Stroke Mother CVD (cardiovascular disease) Hypertension Cancer Sister No problems noted. Son Stroke Surgical History Surgical History Amputated toe of right foot Amputation finger History of cataract surgery History of surgery Social History Social History Household Members: Family Household Members Other:: 4 Housing: House Do you presently have visiting nurse or other home services: Yes Alcohol intake: never Patient Tobacco Use Status: Current everyday Tobacco user Tobacco use type: Cigarette Cigarettes Per Day: 7 Smoked in Last 30 Days: Yes Patient Interested in Nicotine Replacement: No Patient Given Instructions on How to Stop Smoking: No Second Hand Smoke Exposure: No Use of substances other than those prescribed or required for medical reasons: No Currently Displaying Signs/Symptoms of Drug Intoxication Withdrawal: No Any prior treatment program specific to substance use: No Have you been hit, kicked, punched, or otherwise hurt by someone within the past year? If so, by whom?: No Do you feel safe in your current relationship?: Yes Is there a partner from a previous relationship who is making you feel unsafe now?: No Are you made to feel afraid or neglected: No Advance Directives: Yes Advance Directives on File: Yes Advance Directives Date on File: 07/24/20 Do you have thoughts of harming others: None Do you have a plan to hurt others: No Plan Recently lost weight without trying: No Eating poorly because of decreased appetite: No Nutrition Risks: No Nutritional Risk Poor oral hygiene: No (has only few remaining natural teeth) service: No Current occupational status: retired Meds Allergies Allergy/AdvReac Type Severity Reaction Status Date / Time No Known Allergies Allergy Mild Verified 10/09/20 13:15 Active Medications: Current Medications Generic Name Dose Route Start Last Admin Trade Name Freq PRN Reason Stop Dose Admin Acetaminophen 650 mg 11/29/20 21:17 Acetaminophen 325 Mg Tablet PO Q6H PRN Pain, Mild (Pain Scale 1-3) Amiodarone HCl 200 mg 08/15/21 09:00 11/30/20 07:47 Amiodarone Hcl 200 Mg Tablet PO 200 mg DAILY PRAMOD Administration Amlodipine Besylate 10 mg 11/30/20 09:00 11/30/20 07:47 Amlodipine Besylate 10 Mg Tablet PO 10 mg DAILY PRAMOD Administration Protocol Apixaban 5 mg 11/29/20 21:17 11/30/20 07:48 Apixaban 5 Mg Tablet PO 5 mg BID PRAMOD Administration Atorvastatin Calcium 10 mg 11/29/20 21:17 11/29/20 22:41 Atorvastatin Calcium 10 Mg Tablet PO 10 mg BEDTIME PRAMOD Administration Clopidogrel Bisulfate 75 mg 11/30/20 09:00 11/30/20 07:48 Clopidogrel Bisulfate 75 Mg Tablet PO 75 mg DAILY PRAMOD Administration Dextrose 25 gm 11/29/20 21:17 Dextrose 50 % 25 Gm/50 Ml Vial IVPUSH Q15M PRN per Hypoglycemia Standing Ord. Protocol Docusate Sodium 100 mg 11/29/20 21:17 Docusate Sodium 100 Mg Capsule PO DAILY PRN Constipation Furosemide 40 mg 11/30/20 09:00 11/30/20 07:48 Furosemide 40 Mg/4 Ml Vial IVPUSH 40 mg DAILY PRAMOD Administration Protocol Glucose 15 gm 11/29/20 21:17 Glucose Gel 15 Gm Gel..Gram. PO Q15M PRN per Hypoglycemia Standing Ord. Protocol Piperacillin Sod/Tazobactam 50 mls @ 100 mls/hr 11/30/20 03:00 11/30/20 09:58 Sod 3.375 gm/ Sodium Chloride IV Infused Q6H PRAMOD Infusion Vancomycin HCl 750 mg/ Sodium 265 mls @ 265 mls/hr 11/30/20 10:00 11/30/20 13:21 Chloride IV Infused Q12H PR[facility]OD Infusion Insulin Human Lispro 0 unit 11/29/20 21:17 11/30/20 11:39 Insulin Lispro 100 Unit/Ml 3 Ml Vial SUBCUT 2 unit QIDACHS PR[facility]OD Administration Protocol Lisinopril 40 mg 11/30/20 09:00 11/30/20 07:47 Lisinopril 40 Mg Tablet PO 40 mg DAILY PRAMOD Administration Protocol Metoprolol Succinate 100 mg 11/30/20 09:00 11/30/20 07:47 Metoprolol Succinate Er 100 Mg Tab.Er.24h PO 100 mg DAILY PRAMOD Administration Protocol Mirtazapine 7.5 mg 11/29/20 21:17 11/29/20 22:41 Mirtazapine 7.5 Mg Tablet PO 7.5 mg BEDTIME PRAMOD Administration Ondansetron HCl 4 mg 11/29/20 21:17 Ondansetron Hcl 4 Mg/2 Ml Vial IVPUSH Q8H PRN Nausea and Vomiting Pharmacy Consult 1 each 11/29/20 21:17 Consult Rx Vancomycin Dosing MISCELLANE DAILY PRN Consult order Sodium Chloride 3 ml 11/30/20 00:00 11/30/20 07:49 0.9 % Sodium Chloride Flush 3 Ml Syringe IVFLUSH Not Given QSHIFT [facility] Timolol Maleate 1 drop 11/29/20 21:17 11/30/20 09:24 Timolol Maleate 0.5 % Oph [place] 5 Ml Drbtl EYE-BOTH 1 drop BID [facility] Administration Vitamin D 25 mcg 11/30/20 09:00 11/30/20 07:47 Cholecalciferol (Vitamin D3) 25 Mcg Tablet PO 25 mcg DAILY [facility] Administration Home Medications Medication Instructions Recorded Confirmed Last Taken Type cholecalciferol (vitamin D3) 25 25 mcg PO DAILY 04/14/20 11/29/20 07/23/20 History mcg (1,000 unit) capsule timolol 0.25 % eye drops 1 drp OPHTHALMIC-LEFT DAILY 04/14/20 11/29/20 07/23/20 History amlodipine 10 mg tablet 10 mg PO DAILY 08/21/20 11/29/20 Unknown History lisinopril 40 mg tablet 40 mg PO DAILY 08/21/20 11/29/20 Unknown History timolol maleate 0.5 % eye drops 1 drp OPHTHALMIC (EYE) BID 08/21/20 11/29/20 Unknown History amoxicillin 875 mg-potassium 1 tab PO BID 11/29/20 11/29/20 Unknown History clavulanate 125 mg tablet Physical Exam Vital Signs: Vital Signs: Last Vital Signs Temp 97 F 11/30/20 06:53 Pulse 50 11/30/20 06:53 Resp 20 11/30/20 06:53 BP 131/54 L 11/30/20 06:53 Pulse Ox 96 11/30/20 06:53 Body Mass Index 25.8 Const: General: cooperative, no acute distress and alert HENMT: Head: Yes normocephalic and Yes atraumatic Neck: Neck: Yes trachea midline and Yes supple Resp: Effort & Inspection: normal respiratory effort Auscultation: clear to auscultation bilaterally Cardio: Rate: regular rate Rhythm: regular rhythm GI: Other: Soft, nontender, nondistended Extrem: Other: Right foot-status post amputation of 1st and 2nd toes. Right foot is moderately edematous and erythematous. dry open wound with surface hypergranulation and exudate 1.2 x 0.8 cm. Right 3rd toe mildly edematous and mildly erythematous, ulcer present at tip of toe, loose thickened skin present overlying tip of 3rd toe and dorsum of toe, ulcer of 3rd toe probes to bone with no purulent discharge present Results Labs Result diagrams: 11/30/20 05:42 11/30/20 05:42 Labs: Abnormal lab results 11/29/20 11/29/20 11/29/20 Range/Units 19:14 19:15 19:15 RBC 3.73 L (4.60-5.80) X10*6/uL Hgb 11.2 L (14.0-18.0) g/dl Hct 34.9 L (42-52) % RDW 16.1 H (11.0-16.0) % Neut % (Auto) 77.8 H (45-73) % Lymph % (Auto) 9.1 L (20-40) % Love % (Auto) (2-11) % Lymph # (Auto) 0.8 L (1.2-4.9) X10*3/uL ESR (0-15) MM/HR BUN 23 H (9-16) mg/dL POC Glucose (60-115) mg/dL Random Glucose (60-115) mg/dL Lactic Acid 2.2 H* (0.5-2.0) mmol/L C-Reactive Protein 8.03 H (< or = 0.50) mg/dL B-Natriuretic Peptide (<100) pg/mL 11/29/20 11/29/20 11/30/20 Range/Units 19:15 22:07 00:23 RBC (4.60-5.80) X10*6/uL Hgb (14.0-18.0) g/dl Hct (42-52) % RDW (11.0-16.0) % Neut % (Auto) (45-73) % Lymph % (Auto) (20-40) % Love % (Auto) (2-11) % Lymph # (Auto) (1.2-4.9) X10*3/uL ESR 60 H (0-15) MM/HR BUN (9-16) mg/dL POC Glucose 204 H (60-115) mg/dL Random Glucose (60-115) mg/dL Lactic Acid (0.5-2.0) mmol/L C-Reactive Protein (< or = 0.50) mg/dL B-Natriuretic Peptide 858 H (<100) pg/mL 11/30/20 11/30/20 11/30/20 Range/Units 05:42 05:42 06:55 RBC 3.80 L (4.60-5.80) X10*6/uL Hgb 11.4 L (14.0-18.0) g/dl Hct 34.3 L (42-52) % RDW (11.0-16.0) % Neut % (Auto) 93.0 H (45-73) % Lymph % (Auto) 4.8 L (20-40) % Love % (Auto) 1.7 L (2-11) % Lymph # (Auto) 0.3 L (1.2-4.9) X10*3/uL ESR (0-15) MM/HR BUN 20 H (9-16) mg/dL POC Glucose 210 H (60-115) mg/dL Random Glucose 229 H D (60-115) mg/dL Lactic Acid (0.5-2.0) mmol/L C-Reactive Protein (< or = 0.50) mg/dL B-Natriuretic Peptide (<100) pg/mL 11/30/20 Range/Units 11:31 RBC (4.60-5.80) X10*6/uL Hgb (14.0-18.0) g/dl Hct (42-52) % RDW (11.0-16.0) % Neut % (Auto) (45-73) % Lymph % (Auto) (20-40) % Love % (Auto) (2-11) % Lymph # (Auto) (1.2-4.9) X10*3/uL ESR (0-15) MM/HR BUN (9-16) mg/dL POC Glucose 155 H (60-115) mg/dL Random Glucose (60-115) mg/dL Lactic Acid (0.5-2.0) mmol/L C-Reactive Protein (< or = 0.50) mg/dL B-Natriuretic Peptide (<100) pg/mL Short CBC 11/29/20 11/30/20 Range/Units 19:15 05:42 WBC 8.9 7.1 (4.8-10.8) X10*3/uL Hgb 11.2 L 11.4 L (14.0-18.0) g/dl Hct 34.9 L 34.3 L (42-52) % Plt Count 186 215 (160-400) X10*3/uL BMP 11/29/20 11/30/20 19:15 05:42 Sodium 137 137 Potassium 4.6 3.8 Chloride 104 105 Carbon Dioxide 22 22 BUN 23 H 20 H Creatinine 1.18 1.20 Calcium 8.9 8.5 Liver Function 11/29/20 Range/Units 19:15 Total Bilirubin 0.8 (0.0-1.0) mg/dL AST 21 (5-37) U/L ALT 16 (0-40) U/L Alkaline Phosphatase 87 D (39-117) U/L Albumin 3.7 (3.5-5.0) g/dL All other labs normal. Imaging Additional studies: X-ray right foot images and report reviewed. MRI right foot report reviewed. Assessment and Plan (1) History of osteomyelitis: Status: Acute (2) Diabetic foot ulcer: Status: Acute (3) Open wound: Status: Acute (4) Type 2 diabetes mellitus with diabetic foot infection: Status: Acute (5) Cellulitis and abscess of foot: Status: Acute 75-year-old male with diabetes mellitus and peripheral neuropathy, status post open amputation of right 1st and 2nd toe with healing wound, now presenting with cellulitis of right foot and new neuropathic ulcer of the tip of the right 3rd toe with osteomyelitis of the mid and distal phalanges. On vancomycin and Zosyn. Wound cultures demonstrate MRSA and strep pyogenes. Given presence of osteomyelitis and open wound probing to bone, amputation of the 3rd toe appears appropriate once the cellulitis has resolved. Continue local care for open wound at prior amputation site. General Surgery will follow along. Procedures Date of Service Date of Service: 11/30/20 Procedure Note Procedure Note: Wound debridement performed at site of wound right foot status post amputation of right 1st and 2nd toe, and 3rd toe ulcer site. I reviewed the technique with him and risks of worsening infection, bleeding, and nonhealing. Healing at the 3rd toe ulcer site is not anticipated due to the presence of osteomyelitis in the bone. After obtaining consent, I cleansed both sites with saline solution and excise hypergranulation tissue, exudate and slough from the open wound at the 1st and 2nd toe amputation site using forceps and scissors, wound debridement size 1.2 by 0.6 cm. Loose thickened epidermis excised from margin of ulcer right 3rd toe and dorsum of right 3rd toe using scissors. I again cleanse the wounds with saline solution and applied silver alginate and a dry sterile dressing. He tolerated the procedure well.
[2020-11-30 15:36] VITALS: BP 123/48; PULSE 48; RESP 18; O2SAT 92
[2020-11-30 16:05] LABS: Glucose, Whole Blood 208 mg/dL (60-115)
[2020-11-30] MEDS: 0.9 % Sodium Chloride Flush 3 ML SYRINGE IVFLUSH ×2 (16:46→23:54)
[2020-11-30 19:18] VITALS: BP 122/57; PULSE 78; RESP 18; TEMP 36.3; O2SAT 91
[2020-11-30] MEDS: Atorvastatin Calcium 10 MG TABLET PO (20:07)
[2020-11-30] MEDS: Mirtazapine 7.5 MG TABLET PO (20:07)
[2020-11-30 20:10] LABS: Glucose, Whole Blood 203 mg/dL (60-115)
[2020-12-01] VITALS (10 sets, daily range): BP systolic 126–166; BP diastolic 59–74; PULSE 48–56; RESP 14–18; TEMP 35.8–36.6; O2SAT 94–97
[2020-12-01] MEDS: Piperacillin Sodium/Tazobactam 3.375 GM in 0.9 % Sodium Chloride 50 ML IV ×4 (04:12→20:30)
[2020-12-01 07:46] LABS: Glucose, Whole Blood 143 mg/dL (60-115)
--- NOTE | 2020-12-01 08:42 | PM.PNGS ---
Subjective Subjective Date of Service: 12/01/20 Interval history: Denies significant pain No new complaints Physical Exam Vital Signs: Vital Signs: Last Vital Signs Temp 97.1 F 12/01/20 07:36 Pulse 50 12/01/20 07:36 Resp 16 12/01/20 07:36 BP 142/63 H 12/01/20 07:36 Pulse Ox 97 12/01/20 07:36 Body Mass Index 25.8 Const: Other: Chemistry 11/29/20 11/30/20 19:15 05:42 Sodium 137 137 Potassium 4.6 3.8 Carbon Dioxide 22 22 BUN 23 H 20 H Creatinine 1.18 1.20 Calcium 8.9 8.5 Hematology 11/29/20 11/30/20 19:15 05:42 WBC 8.9 7.1 Hgb 11.2 L 11.4 L Plt Count 186 215 General: comfortable and no acute distress Resp: Effort & Inspection: normal respiratory effort Cardio: Rate: regular rate GI: Palpation (GI): Soft to palpation, not firm and nontender Extrem: Other: Ulcer on the tip of the 3rd toe, foot with some edema Procedures Date of Service Date of Service: 12/01/20 Progress Note: A&P Assessment and plan (1) Osteomyelitis of toe of right foot: Status: Acute Assessment and Plan: MRI showing osteomyelitis of the distal phalanx and possibly middle phalanx of the 3rd toe IV antibiotics - may need PICC line Patient prefers not to have amputation at this point Dressings changed Continue wound care Will follow Fall Risk Details Current Medications: Current Medications Generic Name Dose Route Start Last Admin Trade Name Tomasq PRN Reason Stop Dose Admin Acetaminophen 650 mg 11/29/20 21:17 Acetaminophen 325 Mg Tablet PO Q6H PRN Pain, Mild (Pain Scale 1-3) Amiodarone HCl 200 mg 11/30/20 09:00 11/30/20 07:47 Amiodarone Hcl 200 Mg Tablet PO 200 mg DAILY PRAMOD Administration Amlodipine Besylate 10 mg 11/30/20 09:00 11/30/20 07:47 Amlodipine Besylate 10 Mg Tablet PO 10 mg DAILY PRAMOD Administration Protocol Apixaban 5 mg 11/29/20 21:17 11/30/20 20:07 Apixaban 5 Mg Tablet PO 5 mg BID PRAMOD Administration Atorvastatin Calcium 10 mg 11/29/20 21:17 11/30/20 20:07 Atorvastatin Calcium 10 Mg Tablet PO 10 mg BEDTIME PRAMOD Administration Clopidogrel Bisulfate 75 mg 11/30/20 09:00 11/30/20 07:48 Clopidogrel Bisulfate 75 Mg Tablet PO 75 mg DAILY PRAMOD Administration Dextrose 25 gm 11/29/20 21:17 Dextrose 50 % 25 Gm/50 Ml Vial IVPUSH Q15M PRN per Hypoglycemia Standing Ord. Protocol Docusate Sodium 100 mg 11/29/20 21:17 Docusate Sodium 100 Mg Capsule PO DAILY PRN Constipation Furosemide 40 mg 11/30/20 09:00 11/30/20 07:48 Furosemide 40 Mg/4 Ml Vial IVPUSH 40 mg DAILY PRAMOD Administration Protocol Glucose 15 gm 11/29/20 21:17 Glucose Gel 15 Gm Gel..Gram. PO Q15M PRN per Hypoglycemia Standing Ord. Protocol Piperacillin Sod/Tazobactam 50 mls @ 100 mls/hr 11/30/20 03:00 12/01/20 05:05 Sod 3.375 gm/ Sodium Chloride IV Infused Q6H PRAMOD Infusion Vancomycin HCl 750 mg/ Sodium 265 mls @ 265 mls/hr 11/30/20 10:00 11/30/20 22:23 Chloride IV Infused Q12H PRAMOD Infusion Insulin Human Lispro 0 unit 11/29/20 21:17 12/01/20 07:47 Insulin Lispro 100 Unit/Ml 3 Ml Vial SUBCUT Not Given QIDACHS [facility] Protocol Lisinopril 40 mg 11/30/20 09:00 11/30/20 07:47 Lisinopril 40 Mg Tablet PO 40 mg DAILY PRAMOD Administration Protocol Metoprolol Succinate 100 mg 11/30/20 09:00 11/30/20 07:47 Metoprolol Succinate Er 100 Mg Tab.Er.24h PO 100 mg DAILY PRAMOD Administration Protocol Mirtazapine 7.5 mg 11/29/20 21:17 11/30/20 20:07 Mirtazapine 7.5 Mg Tablet PO 7.5 mg BEDTIME PRAMOD Administration Ondansetron HCl 4 mg 11/29/20 21:17 Ondansetron Hcl 4 Mg/2 Ml Vial IVPUSH Q8H PRN Nausea and Vomiting Pharmacy Consult 1 each 11/29/20 21:17 Consult Rx Vancomycin Dosing MISCELLANE DAILY PRN Consult order Sodium Chloride 3 ml 11/30/20 00:00 11/30/20 23:54 0.9 % Sodium Chloride Flush 3 Ml Syringe IVFLUSH 3 ml QSHIFT PRAMOD Administration Timolol Maleate 1 drop 11/29/20 21:17 11/30/20 20:27 Timolol Maleate 0.5 % Oph [place] 5 Ml Drbtl EYE-BOTH 1 drop BID PRAMOD Administration Vitamin D 25 mcg 11/30/20 09:00 11/30/20 07:47 Cholecalciferol (Vitamin D3) 25 Mcg Tablet PO 25 mcg DAILY PRAMOD Administration Time Spent With Patient Time: Total time spent is greater than 50% in coordination of care (as documented) at patient's floor/unit and/or counseling patient: Time with patient: 15 - 24 minutes Quality Stroke Does the patient have a stroke diagnosis?: No VTE Prior VTE?: No VTE Risk Level:: Medical - moderate - high VTE Device Contraindication: Treatment Not Indicated VTE Drug Contraindication: N/A - Med Ordered
[2020-12-01] MEDS: Amiodarone HCL 200 MG TABLET PO (08:51)
[2020-12-01] MEDS: Cholecalciferol (Vitamin D3) 25 MCG TABLET PO (08:51)
[2020-12-01] MEDS: timoloL maleate 0.5 % Oph Sol 5 ML DRBTL 1 DROP EYE-BOTH ×2 (08:51→20:30)
[2020-12-01] MEDS: Apixaban 5 MG TABLET PO ×2 (08:51→20:30)
[2020-12-01] MEDS: lisinopriL 40 MG TABLET PO (08:51)
[2020-12-01] MEDS: amLODIPine Besylate 10 MG TABLET PO (08:51)
[2020-12-01] MEDS: Furosemide 40 MG/4 ML VIAL IVPUSH (08:52)
[2020-12-01] MEDS: 0.9 % Sodium Chloride Flush 3 ML SYRINGE IVFLUSH ×3 (08:52→23:59)
[2020-12-01] MEDS: Clopidogrel Bisulfate 75 MG TABLET PO (08:52)
[2020-12-01 09:39] LABS: Anion Gap 14 (12-20); Blood Urea Nitrogen 30 mg/dL (9-16); Calcium 9.2 mg/dL (8.4-10.2); Carbon Dioxide 23 mmol/L (22-29); Chloride 110 mmol/L (96-108); Creatinine Clr Calc Pharmacy 50.2; Estimated Glomerular Filt Rate 57; Glucose Random 176 mg/dL (60-115); Potassium 3.9 mmol/L (3.3-5.1); Sodium 143 mmol/L (135-145)
[2020-12-01 09:42] LABS: Vancomycin Trough 17.1 mcg/mL (10.0-20.0)
[2020-12-01 11:42] LABS: Glucose, Whole Blood 173 mg/dL (60-115)
[2020-12-01] MEDS: vancomycin HCL 500 MG in 0.9 % Sodium Chloride 100 ML 110 MG IV ×2 (11:53→21:08)
[2020-12-01] MEDS: Insulin Lispro 100 UNIT/ML 3 ML VIAL SUBCUT ×2 (11:54→20:30)
--- NOTE | 2020-12-01 12:55 | HO.PM.IMPN ---
Subjective Subjective Date of Service: 12/01/20 Interval History: the patient was seen and evaluated this morning Laying in bed, feels comfortable Reporting not feeling anything in his lower extremity, erythema and swelling improving a Denies any fever, chills or shortness of breath No reported other overnight events. Systemic review: No fever, chills or weakness No chest pain, palpitation No shortness of breath or coughing No abdominal pain, nausea or vomiting No urinary symptoms Tip of 3rd toe infection Physical Exam Vital Signs: Vital Signs: Last Vital Signs Temp 97.5 F 12/01/20 11:37 Pulse 51 12/01/20 11:37 Resp 17 12/01/20 11:37 BP 166/74 H 12/01/20 11:37 Pulse Ox 96 12/01/20 11:37 Body Mass Index 25.8 Const: Other: Constitutional : Alert, oriented, not in distress Neck : Normal inspection, Supple Cardiovascular : RRR, S1 S2, no lower extremity edema, sign of chronic PAD Respiratory : Good bilateral air entry, no crackles, wheezes or rhonchi Gastrointestinal: soft, lax, Normal bowel sounds, Non tender Skin : Warm, Dry, right lower extremity swollen at the foot with decreasing erythema. Tip of 3rd toe with dark spot. Neurological : Alert & oriented x3, No focal deficit Objective Data Current Medications Generic Name Dose Route Start Last Admin Trade Name Tomasq PRN Reason Stop Dose Admin Acetaminophen 650 mg 11/29/20 21:17 Acetaminophen 325 Mg Tablet PO Q6H PRN Pain, Mild (Pain Scale 1-3) Amiodarone HCl 200 mg 11/30/20 09:00 12/01/20 08:51 Amiodarone Hcl 200 Mg Tablet PO 200 mg DAILY PRAMOD Administration Amlodipine Besylate 10 mg 11/30/20 09:00 12/01/20 08:51 Amlodipine Besylate 10 Mg Tablet PO 10 mg DAILY PRAMOD Administration Protocol Apixaban 5 mg 11/29/20 21:17 12/01/20 08:51 Apixaban 5 Mg Tablet PO 5 mg BID PRAMOD Administration Atorvastatin Calcium 10 mg 11/29/20 21:17 11/30/20 20:07 Atorvastatin Calcium 10 Mg Tablet PO 10 mg BEDTIME PRAMOD Administration Clopidogrel Bisulfate 75 mg 11/30/20 09:00 12/01/20 08:52 Clopidogrel Bisulfate 75 Mg Tablet PO 75 mg DAILY PRAMOD Administration Dextrose 25 gm 11/29/20 21:17 Dextrose 50 % 25 Gm/50 Ml Vial IVPUSH Q15M PRN per Hypoglycemia Standing Ord. Protocol Docusate Sodium 100 mg 11/29/20 21:17 Docusate Sodium 100 Mg Capsule PO DAILY PRN Constipation Furosemide 40 mg 11/30/20 09:00 12/01/20 08:52 Furosemide 40 Mg/4 Ml Vial IVPUSH 40 mg DAILY PRAMOD Administration Protocol Glucose 15 gm 11/29/20 21:17 Glucose Gel 15 Gm Gel..Gram. PO Q15M PRN per Hypoglycemia Standing Ord. Protocol Piperacillin Sod/Tazobactam 50 mls @ 100 mls/hr 11/30/20 03:00 12/01/20 09:32 Sod 3.375 gm/ Sodium Chloride IV Infused Q6H PRAMOD Infusion Vancomycin HCl 500 mg/ Sodium 110 mls @ 110 mls/hr 12/01/20 10:00 12/01/20 11:53 Chloride IV 110 mls/hr Q12H PRAMOD Administration Insulin Human Lispro 0 unit 11/29/20 21:17 12/01/20 11:54 Insulin Lispro 100 Unit/Ml 3 Ml Vial SUBCUT 2 unit QIDACHS PRAMOD Administration Protocol Lisinopril 40 mg 11/30/20 09:00 12/01/20 08:51 Lisinopril 40 Mg Tablet PO 40 mg DAILY PRAMOD Administration Protocol Metoprolol Succinate 100 mg 11/30/20 09:00 12/01/20 08:52 Metoprolol Succinate Er 100 Mg Tab.Er.24h PO Not Given DAILY PRAMOD Protocol Mirtazapine 7.5 mg 11/29/20 21:17 11/30/20 20:07 Mirtazapine 7.5 Mg Tablet PO 7.5 mg BEDTIME PRAMOD Administration Ondansetron HCl 4 mg 11/29/20 21:17 Ondansetron Hcl 4 Mg/2 Ml Vial IVPUSH Q8H PRN Nausea and Vomiting Pharmacy Consult 1 each 11/29/20 21:17 Consult Rx Vancomycin Dosing MISCELLANE DAILY PRN Consult order Sodium Chloride 3 ml 11/30/20 00:00 12/01/20 08:52 0.9 % Sodium Chloride Flush 3 Ml Syringe IVFLUSH 3 ml QSHIFT PRAMOD Administration Timolol Maleate 1 drop 11/29/20 21:17 12/01/20 08:51 Timolol Maleate 0.5 % Oph [place] 5 Ml Drbtl EYE-BOTH 1 drop BID PRAMOD Administration Vitamin D 25 mcg 11/30/20 09:00 12/01/20 08:51 Cholecalciferol (Vitamin D3) 25 Mcg Tablet PO 25 mcg DAILY PRAMOD Administration Labs CBC & Chem 7: 11/30/20 05:42 12/01/20 08:56 Labs: Laboratory Results - last 24 hr 11/30/20 11/30/20 12/01/20 15:52 19:57 07:39 Anion Gap Estim Creat Clear Calc Estimated GFR POC Glucose 208 H 203 H 143 H Random Glucose Calcium Vancomycin Trough 12/01/20 12/01/20 12/01/20 08:56 08:56 11:35 Anion Gap 14 Estim Creat Clear Calc 50.2 Estimated GFR 57 POC Glucose 173 H Random Glucose 176 H Calcium 9.2 D Vancomycin Trough 17.1 Microbiology Microbiology Results: Microbiology 11/29/20 19:14 Gram Stain - Final Toe Right Third Routine Culture - Preliminary Streptococcus pyogenes (Grp A) Staphylococcus aureus Gram negative satnam 11/29/20 19:34 Blood Culture - Preliminary Blood - Venous No growth after 24 hours. 11/29/20 19:15 Blood Culture - Preliminary Blood - Venous No growth after 24 hours. Assessment and Plan (1) Osteomyelitis of toe of right foot: Status: Acute Assessment and Plan: 75-year-old male with past medical history of 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, diabetes, diabetic neuropathy, presents to the hospital with right foot swelling, erythema, as well as 3rd right toe ulcer # diabetic foot ulcer/ OM? # RLE cellulitis open wound of the 3rd right toe elevated ESR and CRP concerning for osteomyelitis pending MRI IV antibiotics infectious disease consulted Surgery input appreciated, debridement done at the bedside # PAD Recent arterial ultrasound for lower extremities showing significant stenosis to get vascular surgery evaluation for possible angiogram # AFib continue metoprolol and apixaban as well as amiodarone # hypertension stable continue amlodipine DVT prophylaxis eliquis Quality Stroke Does the patient have a stroke diagnosis?: No VTE Prior VTE?: No VTE Risk Level:: Medical - moderate - high VTE Device Contraindication: Treatment Not Indicated VTE Drug Contraindication: N/A - Med Ordered
--- NOTE | 2020-12-01 13:16 | MHC.CM.PN ---
EMR REVIEWED, PER VASCULAR SURGEON PT WILL HAVE ANGIOGRAM EITHER TU12/02/20 OR Tue12/03/20, CM WILL CONT TO FOLLOW.
--- NOTE | 2020-12-01 13:34 | P.CONGS_ITS ---
History of Present Illness Consult details Consult date: 12/01/20 Narrative: 75-year-old gentleman status post right lower extremity great toe amputation presents for nonhealing right great toe amputation site and 3rd toe ulceration. It has been progressing for sometime. He has a history of smoking and diabetes. He now presents to us for vascular evaluation. Of note he has undergone endovascular intervention by me in the past. Review of Systems Review of Systems: Yes all other systems are reviewed and are negative Constitutional: Constitutional: Reports no additional constitutional complaints ENT: Reports Normal hearing present Cardiovascular: Cardiovascular: Denies chest pain, Denies chest pain at rest, Denies chest pain with activity and Denies pedal edema Respiratory: Respiratory: Denies cough Gastrointestinal: Gastrointestinal: Denies abdominal pain Musculoskeletal: Musculoskeletal: Denies abnormal gait, Denies muscle cramps and Denies radiating pain into limb Integumentary/Breasts: Skin/Breast: Denies skin ulcer and Denies wounds Neurologic: Reports Normal hearing present and Denies abnormal gait Psychiatric: Psychiatric: Reports no additional psychiatric complaints PMFSH Past Medical History Medical History (Updated 12/01/20 @ 08:44 by Cuco Yu MD) Abscess of right foot Anxiety and depression Asthma Atrial fibrillation with rapid ventricular response Avascular necrosis of bone of hip Coronary artery disease Diabetic foot ulcer Diabetic nephropathy Diabetic neuropathy Diverticular disease Hypercholesterolemia Hypertension Open wound Osteomyelitis of toe Osteomyelitis of toe of right foot Preoperative cardiovascular examination Thrombocytopenia Tobacco abuse Tubular adenoma of colon Type 2 diabetes mellitus with hyperglycemia Vitamin D deficiency Family History Family History (Updated 11/30/20 @ 14:26 by Aditi Tolentino MD) Father Diabetes Hypertension CVD (cardiovascular disease) Stroke Mother CVD (cardiovascular disease) Hypertension Cancer Sister No problems noted. Son Stroke Surgical History Surgical History Amputated toe of right foot Amputation finger History of cataract surgery History of surgery Social History Social History Household Members: Family Household Members Other:: 4 Housing: House Do you presently have visiting nurse or other home services: Yes Alcohol intake: never Patient Tobacco Use Status: Current everyday Tobacco user Tobacco use type: Cigarette Cigarettes Per Day: 7 Smoked in Last 30 Days: Yes Patient Interested in Nicotine Replacement: No Patient Given Instructions on How to Stop Smoking: No Second Hand Smoke Exposure: No Use of substances other than those prescribed or required for medical reasons: No Currently Displaying Signs/Symptoms of Drug Intoxication Withdrawal: No Any prior treatment program specific to substance use: No Have you been hit, kicked, punched, or otherwise hurt by someone within the past year? If so, by whom?: No Do you feel safe in your current relationship?: Yes Is there a partner from a previous relationship who is making you feel unsafe now?: No Are you made to feel afraid or neglected: No Advance Directives: Yes Advance Directives on File: Yes Advance Directives Date on File: 07/24/20 Do you have thoughts of harming others: None Do you have a plan to hurt others: No Plan Recently lost weight without trying: No Eating poorly because of decreased appetite: No Nutrition Risks: No Nutritional Risk Poor oral hygiene: No (has only few remaining natural teeth) service: No Current occupational status: retired [employer] Allergies Allergy/AdvReac Type Severity Reaction Status Date / Time No Known Allergies Allergy Mild Verified 10/09/20 13:15 Active Medications: Current Medications Generic Name Dose Route Start Last Admin Trade Name Freq PRN Reason Stop Dose Admin Acetaminophen 650 mg 11/29/20 21:17 Acetaminophen 325 Mg Tablet PO Q6H PRN Pain, Mild (Pain Scale 1-3) Amiodarone HCl 200 mg 11/30/20 09:00 12/01/20 08:51 Amiodarone Hcl 200 Mg Tablet PO 200 mg DAILY PRAMOD Administration Amlodipine Besylate 10 mg 11/30/20 09:00 12/01/20 08:51 Amlodipine Besylate 10 Mg Tablet PO 10 mg DAILY PRAMOD Administration Protocol Apixaban 5 mg 11/29/20 21:17 12/01/20 08:51 Apixaban 5 Mg Tablet PO 5 mg BID PRAMOD Administration Atorvastatin Calcium 10 mg 11/29/20 21:17 11/30/20 20:07 Atorvastatin Calcium 10 Mg Tablet PO 10 mg BEDTIME PRAMOD Administration Clopidogrel Bisulfate 75 mg 11/30/20 09:00 12/01/20 08:52 Clopidogrel Bisulfate 75 Mg Tablet PO 75 mg DAILY PRAMOD Administration Dextrose 25 gm 11/29/20 21:17 Dextrose 50 % 25 Gm/50 Ml Vial IVPUSH Q15M PRN per Hypoglycemia Standing Ord. Protocol Docusate Sodium 100 mg 11/29/20 21:17 Docusate Sodium 100 Mg Capsule PO DAILY PRN Constipation Furosemide 40 mg 11/30/20 09:00 12/01/20 08:52 Furosemide 40 Mg/4 Ml Vial IVPUSH 40 mg DAILY [facility] Administration Protocol Glucose 15 gm 11/29/20 21:17 Glucose Gel 15 Gm Gel..Gram. PO Q15M PRN per Hypoglycemia Standing Ord. Protocol Piperacillin Sod/Tazobactam 50 mls @ 100 mls/hr 11/30/20 03:00 12/01/20 09:32 Sod 3.375 gm/ Sodium Chloride IV Infused Q6H PRAMOD Infusion Vancomycin HCl 500 mg/ Sodium 110 mls @ 110 mls/hr 12/01/20 10:00 12/01/20 13:20 Chloride IV Infused Q12H PRAMOD Infusion Insulin Human Lispro 0 unit 11/29/20 21:17 12/01/20 11:54 Insulin Lispro 100 Unit/Ml 3 Ml Vial SUBCUT 2 unit QIDACHS [facility] Administration Protocol Lisinopril 40 mg 11/30/20 09:00 12/01/20 08:51 Lisinopril 40 Mg Tablet PO 40 mg DAILY [facility] Administration Protocol Metoprolol Succinate 100 mg 11/30/20 09:00 12/01/20 08:52 Metoprolol Succinate Er 100 Mg Tab.Er.24h PO Not Given DAILY [facility] Protocol Mirtazapine 7.5 mg 11/29/20 21:17 11/30/20 20:07 Mirtazapine 7.5 Mg Tablet PO 7.5 mg BEDTIME PRAMOD Administration Ondansetron HCl 4 mg 11/29/20 21:17 Ondansetron Hcl 4 Mg/2 Ml Vial IVPUSH Q8H PRN Nausea and Vomiting Pharmacy Consult 1 each 11/29/20 21:17 Consult Rx Vancomycin Dosing MISCELLANE DAILY PRN Consult order Sodium Chloride 3 ml 11/30/20 00:00 12/01/20 08:52 0.9 % Sodium Chloride Flush 3 Ml Syringe IVFLUSH 3 ml QSHIFT [facility] Administration Timolol Maleate 1 drop 11/29/20 21:17 12/01/20 08:51 Timolol Maleate 0.5 % Oph Spring 5 Ml Drbtl EYE-BOTH 1 drop BID PRAMOD Administration Vitamin D 25 mcg 11/30/20 09:00 12/01/20 08:51 Cholecalciferol (Vitamin D3) 25 Mcg Tablet PO 25 mcg DAILY PRAMOD Administration Home Medications Medication Instructions Recorded Confirmed Last Taken Type cholecalciferol (vitamin D3) 25 25 mcg PO DAILY 04/14/20 11/29/20 07/23/20 History mcg (1,000 unit) capsule timolol 0.25 % eye drops 1 drp OPHTHALMIC-LEFT DAILY 04/14/20 11/29/20 07/23/20 History amlodipine 10 mg tablet 10 mg PO DAILY 08/21/20 11/29/20 Unknown History lisinopril 40 mg tablet 40 mg PO DAILY 08/21/20 11/29/20 Unknown History timolol maleate 0.5 % eye drops 1 drp OPHTHALMIC (EYE) BID 08/21/20 11/29/20 Unknown History amoxicillin 875 mg-potassium 1 tab PO BID 11/29/20 11/29/20 Unknown History clavulanate 125 mg tablet Physical Exam Vital Signs: Vital Signs: Last Vital Signs Temp 97.5 F 12/01/20 11:37 Pulse 51 12/01/20 11:37 Resp 17 12/01/20 11:37 BP 166/74 H 12/01/20 11:37 Pulse Ox 96 12/01/20 11:37 Body Mass Index 25.8 Const: General: cooperative, healthy appearing and comfortable Orientation/consciousness: oriented to person, oriented to place and oriented to time HENMT: Head: Yes normal to inspection Neck: Neck: Yes normal visual inspection Carotids: no bruits Chest: Chest palpation & inspection: normal inspection of the chest Resp: Effort & Inspection: normal respiratory effort and able to speak in complete sentences Auscultation: clear to auscultation bilaterally, no crackles, no rales, no rhonchi and no wheezes Cardio: Rate: regular rate Rhythm: regular rhythm Heart sounds: S1 normal heart sound present and S2 normal heart sound present Bruits: no carotid bruits Peripheral pulses: dorsalis pedis present (Bilateral DP signals) GI: Inspection: Yes normal to inspection Skin: Wounds: amputation site (Nonhealing right amp of great toe) and wounds noted (Right 3rd toe) Hair: normal Neuro: General: oriented to person, oriented to place and oriented to time Cranial nerves: Yes CN's II-XII intact bilaterally and Yes Normal hearing present Cognition (Neuro): normal cognition Motor exam (neuro): 5/5 motor strength present throughout Extrem: Other: venous exam: No significant superficial varicosities or spider telangiectasias, minimal edema General: No clubbing, No cyanosis and No edema Psych: Appearance: grossly normal Mental Status: mental status grossly normal Speech and movement: Normal speech and movement present Results Labs Result diagrams: 11/30/20 05:42 12/01/20 08:56 Labs: Abnormal lab results 11/30/20 11/30/20 12/01/20 Range/Units 15:52 19:57 07:39 Chloride (96-108) mmol/L BUN (9-16) mg/dL POC Glucose 208 H 203 H 143 H (60-115) mg/dL Random Glucose (60-115) mg/dL 12/01/20 12/01/20 Range/Units 08:56 11:35 Chloride 110 H (96-108) mmol/L BUN 30 H (9-16) mg/dL POC Glucose 173 H (60-115) mg/dL Random Glucose 176 H (60-115) mg/dL BMP 12/01/20 08:56 Sodium 143 Potassium 3.9 Chloride 110 H Carbon Dioxide 23 BUN 30 H Creatinine 1.23 Calcium 9.2 D All other labs normal. Assessment and Plan (1) PAD (peripheral artery disease): Status: Acute In short patient has nonhealing right great toe amputation site and 3rd toe ulceration. Did review noninvasive arterial testing. There is concern of some inflow disease. At the current time will observe. If no significant improvement over the next day or 2 May require endovascular intervention. This was discussed in detail with the patient. Thank you for allowing us to assist in his care. If there are any questions or concerns please do not hesitate to contact us. Procedures Date of Service Date of Service: 12/01/20
--- NOTE | 2020-12-01 14:09 | PC.NURSE ---
Skin/Wound assessment completed today. On admission patient had a diabetic ulcer on right 3rd toe. Silver alginate applied and wrapped in gauze. Buttocks pink no open areas. No other skin issues noted.
--- NOTE | 2020-12-01 14:20 | MHC.CLN ---
NUTRITION DIET CHANGED TO DIABETIC 2000 KCAL, PROVIDING 25.2 KCAL/KG.
--- NOTE | 2020-12-01 15:10 | P.CNID_ITS ---
History of Present Illness Data of Consult Service Date: 12/01/20 Requesting physician: Dewey Reyna Primary Care Provider: Unknown Physician HPI Reason for consult: right foot infection He has worsening right foot infection last month He has had infection since July and amputation great toe He has had multiple courses antibiotics and wound vac Review of Systems Review of Systems: Yes all other systems are reviewed and are negative PMFSH Past Medical History Medical History Abscess of right foot Anxiety and depression Asthma Atrial fibrillation with rapid ventricular response Avascular necrosis of bone of hip Coronary artery disease Diabetic foot ulcer Diabetic nephropathy Diabetic neuropathy Diverticular disease Hypercholesterolemia Hypertension Open wound Osteomyelitis of toe Osteomyelitis of toe of right foot Preoperative cardiovascular examination Thrombocytopenia Tobacco abuse Tubular adenoma of colon Type 2 diabetes mellitus with hyperglycemia Vitamin D deficiency Family History Family History Father Diabetes Hypertension CVD (cardiovascular disease) Stroke Mother CVD (cardiovascular disease) Hypertension Cancer Sister No problems noted. Son Stroke Surgical History Surgical History Amputated toe of right foot Amputation finger History of cataract surgery History of surgery Social History Social History Household Members: Family Household Members Other:: 4 Housing: House Do you presently have visiting nurse or other home services: Yes Alcohol intake: never Patient Tobacco Use Status: Current everyday Tobacco user Tobacco use type: Cigarette Cigarettes Per Day: 7 Smoked in Last 30 Days: Yes Patient Interested in Nicotine Replacement: No Patient Given Instructions on How to Stop Smoking: No Second Hand Smoke Exposure: No Use of substances other than those prescribed or required for medical reasons: No Currently Displaying Signs/Symptoms of Drug Intoxication Withdrawal: No Any prior treatment program specific to substance use: No Have you been hit, kicked, punched, or otherwise hurt by someone within the past year? If so, by whom?: No Do you feel safe in your current relationship?: Yes Is there a partner from a previous relationship who is making you feel unsafe now?: No Are you made to feel afraid or neglected: No Advance Directives: Yes Advance Directives on File: Yes Advance Directives Date on File: 07/24/20 Do you have thoughts of harming others: None Do you have a plan to hurt others: No Plan Recently lost weight without trying: No Eating poorly because of decreased appetite: No Nutrition Risks: No Nutritional Risk Poor oral hygiene: No (has only few remaining natural teeth) service: No Current occupational status: retired Meds Allergies Allergy/AdvReac Type Severity Reaction Status Date / Time No Known Allergies Allergy Mild Verified 10/09/20 13:15 Active Medications: Current Medications Generic Name Dose Route Start Last Admin Trade Name Freq PRN Reason Stop Dose Admin Acetaminophen 650 mg 11/29/20 21:17 Acetaminophen 325 Mg Tablet PO Q6H PRN Pain, Mild (Pain Scale 1-3) Amiodarone HCl 200 mg 11/30/20 09:00 12/01/20 08:51 Amiodarone Hcl 200 Mg Tablet PO 200 mg DAILY PRAMOD Administration Amlodipine Besylate 10 mg 11/30/20 09:00 12/01/20 08:51 Amlodipine Besylate 10 Mg Tablet PO 10 mg DAILY PRAMOD Administration Protocol Apixaban 5 mg 11/29/20 21:17 12/01/20 08:51 Apixaban 5 Mg Tablet PO 5 mg BID PRAMOD Administration Atorvastatin Calcium 10 mg 11/29/20 21:17 11/30/20 20:07 Atorvastatin Calcium 10 Mg Tablet PO 10 mg BEDTIME PRAMOD Administration Clopidogrel Bisulfate 75 mg 11/30/20 09:00 12/01/20 08:52 Clopidogrel Bisulfate 75 Mg Tablet PO 75 mg DAILY PRAMOD Administration Dextrose 25 gm 11/29/20 21:17 Dextrose 50 % 25 Gm/50 Ml Vial IVPUSH Q15M PRN per Hypoglycemia Standing Ord. Protocol Docusate Sodium 100 mg 11/29/20 21:17 Docusate Sodium 100 Mg Capsule PO DAILY PRN Constipation Furosemide 40 mg 11/30/20 09:00 12/01/20 08:52 Furosemide 40 Mg/4 Ml Vial IVPUSH 40 mg DAILY PRAMOD Administration Protocol Glucose 15 gm 11/29/20 21:17 Glucose Gel 15 Gm Gel..Gram. PO Q15M PRN per Hypoglycemia Standing Ord. Protocol Piperacillin Sod/Tazobactam 50 mls @ 100 mls/hr 11/30/20 03:00 12/01/20 09:32 Sod 3.375 gm/ Sodium Chloride IV Infused Q6H PRAMOD Infusion Vancomycin HCl 500 mg/ Sodium 110 mls @ 110 mls/hr 12/01/20 10:00 12/01/20 13:20 Chloride IV Infused Q12H [facility] Infusion Insulin Human Lispro 0 unit 11/29/20 21:17 12/01/20 11:54 Insulin Lispro 100 Unit/Ml 3 Ml Vial SUBCUT 2 unit QIDACHS [facility] Administration Protocol Lisinopril 40 mg 11/30/20 09:00 12/01/20 08:51 Lisinopril 40 Mg Tablet PO 40 mg DAILY [facility] Administration Protocol Metoprolol Succinate 100 mg 11/30/20 09:00 12/01/20 08:52 Metoprolol Succinate Er 100 Mg Tab.Er.24h PO Not Given DAILY [facility] Protocol Mirtazapine 7.5 mg 11/29/20 21:17 11/30/20 20:07 Mirtazapine 7.5 Mg Tablet PO 7.5 mg BEDTIME [facility] Administration Ondansetron HCl 4 mg 11/29/20 21:17 Ondansetron Hcl 4 Mg/2 Ml Vial IVPUSH Q8H PRN Nausea and Vomiting Pharmacy Consult 1 each 11/29/20 21:17 Consult Rx Vancomycin Dosing MISCELLANE DAILY PRN Consult order Sodium Chloride 3 ml 11/30/20 00:00 12/01/20 08:52 0.9 % Sodium Chloride Flush 3 Ml Syringe IVFLUSH 3 ml QSHIFT [facility] Administration Timolol Maleate 1 drop 11/29/20 21:17 12/01/20 08:51 Timolol Maleate 0.5 % Oph Spring 5 Ml Drbtl EYE-BOTH 1 drop BID [facility] Administration Vitamin D 25 mcg 11/30/20 09:00 12/01/20 08:51 Cholecalciferol (Vitamin D3) 25 Mcg Tablet PO 25 mcg DAILY [facility] Administration Home Medications Medication Instructions Recorded Confirmed Last Taken Type cholecalciferol (vitamin D3) 25 25 mcg PO DAILY 04/14/20 11/29/20 07/23/20 History mcg (1,000 unit) capsule timolol 0.25 % eye drops 1 drp OPHTHALMIC-LEFT DAILY 04/14/20 11/29/20 07/23/20 History amlodipine 10 mg tablet 10 mg PO DAILY 08/21/20 11/29/20 Unknown History lisinopril 40 mg tablet 40 mg PO DAILY 08/21/20 11/29/20 Unknown History timolol maleate 0.5 % eye drops 1 drp OPHTHALMIC (EYE) BID 08/21/20 11/29/20 Unknown History amoxicillin 875 mg-potassium 1 tab PO BID 11/29/20 11/29/20 Unknown History clavulanate 125 mg tablet Physical Exam Vital Signs: Vital Signs: Last Vital Signs Temp 97.5 F 12/01/20 11:37 Pulse 51 12/01/20 11:37 Resp 17 12/01/20 11:37 BP 166/74 H 12/01/20 11:37 Pulse Ox 96 12/01/20 11:37 Body Mass Index 25.8 Const: General: cooperative HENMT: Head: Yes normal to inspection Mouth: Normal oral and palatal mucosa present Eyes: General: appearance normal, both eyes and all related structures Resp: Effort & Inspection: normal respiratory effort Cardio: Rate: regular rate Rhythm: regular rhythm GI: Palpation (GI): Soft to palpation and nontender Extrem: Other: right foot necrotic area medially Results Labs CBC & Chem 7: 11/30/20 05:42 12/01/20 08:56 Labs: BMP 12/01/20 08:56 Sodium 143 Potassium 3.9 Chloride 110 H Carbon Dioxide 23 BUN 30 H Creatinine 1.23 Calcium 9.2 D Microbiology Microbiology Results: Microbiology 11/29/20 19:14 Toe Right Third Gram Stain - Final 11/29/20 19:14 Toe Right Third Routine Culture - Preliminary Streptococcus pyogenes (Grp A) Staphylococcus aureus Gram negative satnam 11/29/20 19:34 Blood - Venous Blood Culture - Preliminary No growth after 24 hours. 11/29/20 19:15 Blood - Venous Blood Culture - Preliminary No growth after 24 hours. Assessment and Plan (1) Osteomyelitis of toe of right foot: Status: Acute He has possible staph,strep,anerobes He has chronic nonhealing area He can try 6 weeks Ertapenem or Vancomycin,depends on sensitivities Debridement as needed
[2020-12-01 16:18] LABS: Glucose, Whole Blood 101 mg/dL (60-115)
[2020-12-01 20:16] LABS: Glucose, Whole Blood 154 mg/dL (60-115)
[2020-12-01] MEDS: Atorvastatin Calcium 10 MG TABLET PO (20:30)
[2020-12-01] MEDS: Mirtazapine 7.5 MG TABLET PO (20:30)
[2020-12-02] MEDS: Piperacillin Sodium/Tazobactam 3.375 GM in 0.9 % Sodium Chloride 50 ML IV ×4 (03:42→21:13)
[2020-12-02 03:59] VITALS: BP 129/65; PULSE 91; RESP 18; TEMP 36.9; O2SAT 97
[2020-12-02 06:01] LABS: Hematocrit 34.2 % (42-52); Hemoglobin 11.4 g/dl (14.0-18.0); Mean Corpuscular HGB Conc 33.3 g/dl (31.0-36.0); Mean Platelet Volume 11.2 fL (9.4-12.4); Platelet Count 230 X10*3/uL (160-400); Red Cell Distribution Width 15.7 % (11.0-16.0); White Blood Count 11.6 X10*3/uL (4.8-10.8)
[2020-12-02 06:23] LABS: Anion Gap 12 (12-20); Blood Urea Nitrogen 31 mg/dL (9-16); Calcium 9.2 mg/dL (8.4-10.2); Carbon Dioxide 28 mmol/L (22-29); Chloride 108 mmol/L (96-108); Creatinine Clr Calc Pharmacy 52.4; Estimated Glomerular Filt Rate 60; Glucose Random 98 mg/dL (60-115); Sodium 144 mmol/L (135-145)
[2020-12-02] MEDS: 0.9 % Sodium Chloride Flush 3 ML SYRINGE IVFLUSH ×3 (07:16→21:13)
[2020-12-02 07:17] VITALS: BP 159/71; PULSE 51; RESP 18; TEMP 36.2; O2SAT 97
[2020-12-02 07:31] LABS: Glucose, Whole Blood 78 mg/dL (60-115)
[2020-12-02] MEDS: Clopidogrel Bisulfate 75 MG TABLET PO (08:18)
[2020-12-02] MEDS: Cholecalciferol (Vitamin D3) 25 MCG TABLET PO (08:18)
[2020-12-02] MEDS: Apixaban 5 MG TABLET PO ×2 (08:19→21:13)
[2020-12-02] MEDS: lisinopriL 40 MG TABLET PO (08:19)
[2020-12-02] MEDS: Furosemide 40 MG/4 ML VIAL IVPUSH (08:19)
[2020-12-02] MEDS: Amiodarone HCL 200 MG TABLET PO (08:19)
[2020-12-02] MEDS: Metoprolol Succinate ER 100 MG TAB.ER.24H PO (08:19)
[2020-12-02] MEDS: amLODIPine Besylate 10 MG TABLET PO (08:20)
[2020-12-02] MEDS: timoloL maleate 0.5 % Oph Sol 5 ML DRBTL 1 DROP EYE-BOTH ×2 (09:40→21:13)
[2020-12-02] MEDS: vancomycin HCL 500 MG in 0.9 % Sodium Chloride 100 ML 110 MG IV ×2 (09:40→22:02)
[2020-12-02 11:34] VITALS: BP 154/63; PULSE 46; RESP 18; TEMP 36.1; O2SAT 98
[2020-12-02 11:50] LABS: Glucose, Whole Blood 100 mg/dL (60-115)
--- NOTE | 2020-12-02 12:00 | MHC.CM.PN ---
CM MET W/PT TO DISCUSS DIRECTOR EXPERIMENT[employer] MEDIC[employer] IV ABX TX, PT REQUESTED THIS CM TO CONTACT HIS , CM CONTACTED ANSELMO AT 11:5PM [phone], PT'S VERIFIED [facility] IS OVERLOOK & REPORTS PT HAS BEEN ON IV ABX AT HOME IN PAST, IS ANXIOUS ABOUT PT COMING HOME W/IV ABX HOWEVER REPORTS IF IT'S DAILY SHE WOULD BE ABLE TO DO IT, SHE REPORTS SHE HAD TO CALL THE [facility] A FEW TIMES IN THE PAST WHEN LINE WAS CLOGGED AND IS NERVOUS ABOUT THIS HAPPENING, PT'S CURRENTLY ALSO CARING FOR SON WHO HAD A STROKE & BRINGING HIM TO APPT TODAY, CM WILL FOLLOW-UP W/ TOMORROW WHEN WE HAVE MORE INFO REGARDING FREQUENCY OF ABX. PT'S REQUESTING TO SPEAK W/HOSPITALIST AND CM WILL SEND REQUEST VIA [facility]. CM HAS SENT REFERRAL TO [facility] AND SPOKEN WITH LIAISON REGARDING CASE.
--- NOTE | 2020-12-02 12:30 | P.PNIM_ITS ---
Subjective Subjective Date of Service: 12/02/20 Interval History: the patient was seen and evaluated this morning Laying in bed, feels comfortable Reporting not feeling anything in his lower extremity, erythema and swelling improving Denies any fever, chills or shortness of breath No reported other overnight events. Systemic review: No fever, chills or weakness No chest pain, palpitation No shortness of breath or coughing No abdominal pain, nausea or vomiting No urinary symptoms Tip of 3rd toe infection Physical Exam Vital Signs: Vital Signs: Last Vital Signs Temp 96.9 F 12/02/20 11:34 Pulse 46 L 12/02/20 11:34 Resp 18 12/02/20 11:34 BP 154/63 H 12/02/20 11:34 Pulse Ox 98 12/02/20 11:34 Body Mass Index 25.8 Const: Other: Constitutional : Alert, oriented, not in distress Neck : Normal inspection, Supple Cardiovascular : RRR, S1 S2, no lower extremity edema, sign of chronic PAD Respiratory : Good bilateral air entry, no crackles, wheezes or rhonchi Gastrointestinal: soft, lax, Normal bowel sounds, Non tender Skin : Warm, Dry, right lower extremity swollen at the foot with decreasing erythema. Tip of 3rd toe post debridement cover with dressing Neurological : Alert & oriented x3, No focal deficit Objective Data Current Medications Generic Name Dose Route Start Last Admin Trade Name Tomasq PRN Reason Stop Dose Admin Acetaminophen 650 mg 11/29/20 21:17 Acetaminophen 325 Mg Tablet PO Q6H PRN Pain, Mild (Pain Scale 1-3) Amiodarone HCl 200 mg 11/30/20 09:00 12/02/20 08:19 Amiodarone Hcl 200 Mg Tablet PO 200 mg DAILY PRAMOD Administration Amlodipine Besylate 10 mg 11/30/20 09:00 12/02/20 08:20 Amlodipine Besylate 10 Mg Tablet PO 10 mg DAILY PRAMOD Administration Protocol Apixaban 5 mg 11/29/20 21:17 12/02/20 08:19 Apixaban 5 Mg Tablet PO 5 mg BID PRAMOD Administration Atorvastatin Calcium 10 mg 11/29/20 21:17 12/01/20 20:30 Atorvastatin Calcium 10 Mg Tablet PO 10 mg BEDTIME PRAMOD Administration Clopidogrel Bisulfate 75 mg 11/30/20 09:00 12/02/20 08:18 Clopidogrel Bisulfate 75 Mg Tablet PO 75 mg DAILY PRAMOD Administration Dextrose 25 gm 11/29/20 21:17 Dextrose 50 % 25 Gm/50 Ml Vial IVPUSH Q15M PRN per Hypoglycemia Standing Ord. Protocol Docusate Sodium 100 mg 11/29/20 21:17 Docusate Sodium 100 Mg Capsule PO DAILY PRN Constipation Furosemide 40 mg 11/30/20 09:00 12/02/20 08:19 Furosemide 40 Mg/4 Ml Vial IVPUSH 40 mg DAILY PRAMOD Administration Protocol Glucose 15 gm 11/29/20 21:17 Glucose Gel 15 Gm Gel..Gram. PO Q15M PRN per Hypoglycemia Standing Ord. Protocol Piperacillin Sod/Tazobactam 50 mls @ 100 mls/hr 11/30/20 03:00 12/02/20 08:54 Sod 3.375 gm/ Sodium Chloride IV Infused Q6H PRAMOD Infusion Vancomycin HCl 500 mg/ Sodium 110 mls @ 110 mls/hr 12/01/20 10:00 12/02/20 10:40 Chloride IV Infused Q12H PRAMOD Infusion Insulin Human Lispro 0 unit 11/29/20 21:17 12/02/20 12:04 Insulin Lispro 100 Unit/Ml 3 Ml Vial SUBCUT Not Given QIDACHS [facility] Protocol Lisinopril 40 mg 11/30/20 09:00 12/02/20 08:19 Lisinopril 40 Mg Tablet PO 40 mg DAILY PRAMOD Administration Protocol Metoprolol Succinate 100 mg 11/30/20 09:00 12/02/20 08:19 Metoprolol Succinate Er 100 Mg Tab.Er.24h PO 100 mg DAILY PRAMOD Administration Protocol Mirtazapine 7.5 mg 11/29/20 21:17 12/01/20 20:30 Mirtazapine 7.5 Mg Tablet PO 7.5 mg BEDTIME PRAMOD Administration Ondansetron HCl 4 mg 11/29/20 21:17 Ondansetron Hcl 4 Mg/2 Ml Vial IVPUSH Q8H PRN Nausea and Vomiting Pharmacy Consult 1 each 11/29/20 21:17 Consult Rx Vancomycin Dosing MISCELLANE DAILY PRN Consult order Sodium Chloride 3 ml 11/30/20 00:00 12/02/20 07:16 0.9 % Sodium Chloride Flush 3 Ml Syringe IVFLUSH 3 ml QSHIFT PRAMOD Administration Timolol Maleate 1 drop 11/29/20 21:17 12/02/20 09:40 Timolol Maleate 0.5 % Oph [place] 5 Ml Drbtl EYE-BOTH 1 drop BID PRAMOD Administration Vitamin D 25 mcg 11/30/20 09:00 12/02/20 08:18 Cholecalciferol (Vitamin D3) 25 Mcg Tablet PO 25 mcg DAILY PRAMOD Administration Labs CBC & Chem 7: 12/02/20 05:43 12/02/20 05:43 Labs: Laboratory Results - last 24 hr 12/01/20 12/01/20 12/02/20 16:15 20:11 05:43 MCV 90.0 MCH 30.0 MCHC 33.3 RDW 15.7 Plt Count 230 MPV 11.2 Absolute Nucleated RBC 0.000 Nucleated RBC % (auto) 0.0 Anion Gap Estim Creat Clear Calc Estimated GFR POC Glucose 101 154 H Random Glucose Calcium 12/02/20 12/02/20 12/02/20 05:43 07:15 11:32 MCV MCH MCHC RDW Plt Count MPV Absolute Nucleated RBC Nucleated RBC % (auto) Anion Gap 12 Estim Creat Clear Calc 52.4 Estimated GFR 60 POC Glucose 78 100 Random Glucose 98 D Calcium 9.2 Microbiology Microbiology Results: Microbiology 11/29/20 19:14 Gram Stain - Final Toe Right Third Routine Culture - Final Streptococcus pyogenes (Grp A) Methicillin Res Staph Aureus Pseudomonas aeruginosa 11/29/20 19:34 Blood Culture - Preliminary Blood - Venous No growth after 48 hours. 11/29/20 19:15 Blood Culture - Preliminary Blood - Venous No growth after 48 hours. 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 # RLE cellulitis open wound of the 3rd right toe elevated ESR and CRP MRI showed evidence of erosion of 3rd distal phalanx from osteomyelitis Wound culture growing MRSA and strep group Continue IV antibiotics infectious disease input appreciated, consider discharge on ertapenem or vancomycin to finish 01/10 Surgery input appreciated, debridement done at the bedside # PAD Recent arterial ultrasound for lower extremities showing significant stenosis Vascular surgery input appreciated, to do angiography on Tuesday or # AFib continue metoprolol and apixaban as well as amiodarone # hypertension stable continue amlodipine DVT prophylaxis eliquis Quality Stroke Does the patient have a stroke diagnosis?: No VTE Prior VTE?: No VTE Risk Level:: Medical - moderate - high VTE Device Contraindication: Treatment Not Indicated VTE Drug Contraindication: N/A - Med Ordered
[2020-12-02 15:35] VITALS: BP 140/66; PULSE 52; RESP 17; TEMP 36.4; O2SAT 95
[2020-12-02 16:03] LABS: Glucose, Whole Blood 153 mg/dL (60-115)
[2020-12-02] MEDS: Insulin Lispro 100 UNIT/ML 3 ML VIAL SUBCUT (16:50)
--- NOTE | 2020-12-02 17:57 | HO.VASCPN ---
Subjective Subjective Date of Service: 12/02/20 Patient reports: no new complaints and feels better Interval history: Very pleasant 75-year-old gentleman presents for follow-up regarding nonhealing right lower extremity ulcerations. He is currently on an antibiotic regiment of Vanco and Zosyn. He does have some cellulitis in the anterior portion of the foot. He now presents for routine follow-up evaluation. Physical Exam Vital Signs: Vital Signs: Last Vital Signs Temp 97.5 F 12/02/20 15:35 Pulse 52 12/02/20 15:35 Resp 17 12/02/20 15:35 BP 140/66 H 12/02/20 15:35 Pulse Ox 95 12/02/20 15:35 Body Mass Index 25.8 Const: General: cooperative, healthy appearing and no acute distress Orientation/consciousness: oriented to person, oriented to place and oriented to time HENMT: Head: Yes normal to inspection Neck: Carotids: no bruits Chest: Chest palpation & inspection: normal inspection of the chest Resp: Effort & Inspection: normal respiratory effort and able to speak in complete sentences Auscultation: clear to auscultation bilaterally Cardio: Rate: regular rate Heart sounds: S1 normal heart sound present and S2 normal heart sound present GI: Inspection: Yes normal to inspection Skin: General skin exam: no rashes or lesions noted Wounds: wounds noted (Right 3rd toe cleaned, right great toe amp middle of incision line nonheali) Neuro: General: oriented to person, oriented to place, oriented to time and CN's II-XI intact bilaterally Extrem: General: Yes normal to inspection, Yes full ROM and Yes no clubbing, cyanosis or edema Psych: Appearance: grossly normal and well kempt Speech and movement: Normal speech and movement present Affect: normal affect Progress Note: A&P Assessment and plan (1) PAD (peripheral artery disease): Status: Acute Assessment and Plan: In short patient has nonhealing right lower extremity ulcer. He did undergo endovascular intervention in July of this year. Will see how he progresses over the next day. A should no significant improvement be noted he will require endovascular intervention. This was discussed in detail with the patient and he is in agreement. Thank you for allowing us to assist in his care. If there are any questions or concerns please do not hesitate to contact us. Fall Risk Details Current Medications: Current Medications Generic Name Dose Route Start Last Admin Trade Name Freq PRN Reason Stop Dose Admin Acetaminophen 650 mg 11/29/20 21:17 Acetaminophen 325 Mg Tablet PO Q6H PRN Pain, Mild (Pain Scale 1-3) Amiodarone HCl 200 mg 11/30/20 09:00 12/02/20 08:19 Amiodarone Hcl 200 Mg Tablet PO 200 mg DAILY PRAMOD Administration Amlodipine Besylate 10 mg 11/30/20 09:00 12/02/20 08:20 Amlodipine Besylate 10 Mg Tablet PO 10 mg DAILY PRAMOD Administration Protocol Apixaban 5 mg 11/29/20 21:17 12/02/20 08:19 Apixaban 5 Mg Tablet PO 5 mg BID PRAMOD Administration Atorvastatin Calcium 10 mg 11/29/20 21:17 12/01/20 20:30 Atorvastatin Calcium 10 Mg Tablet PO 10 mg BEDTIME PRAMOD Administration Clopidogrel Bisulfate 75 mg 11/30/20 09:00 12/02/20 08:18 Clopidogrel Bisulfate 75 Mg Tablet PO 75 mg DAILY PRAMOD Administration Dextrose 25 gm 11/29/20 21:17 Dextrose 50 % 25 Gm/50 Ml Vial IVPUSH Q15M PRN per Hypoglycemia Standing Ord. Protocol Docusate Sodium 100 mg 11/29/20 21:17 Docusate Sodium 100 Mg Capsule PO DAILY PRN Constipation Furosemide 40 mg 11/30/20 09:00 12/02/20 08:19 Furosemide 40 Mg/4 Ml Vial IVPUSH 40 mg DAILY PRAMOD Administration Protocol Glucose 15 gm 11/29/20 21:17 Glucose Gel 15 Gm Gel..Gram. PO Q15M PRN per Hypoglycemia Standing Ord. Protocol Piperacillin Sod/Tazobactam 50 mls @ 100 mls/hr 11/30/20 03:00 12/02/20 16:56 Sod 3.375 gm/ Sodium Chloride IV Infused Q6H PRAMOD Infusion Vancomycin HCl 500 mg/ Sodium 110 mls @ 110 mls/hr 12/01/20 10:00 12/02/20 10:40 Chloride IV Infused Q12H PRMAOD Infusion Insulin Human Lispro 0 unit 11/29/20 21:17 12/02/20 16:50 Insulin Lispro 100 Unit/Ml 3 Ml Vial SUBCUT 2 unit QIDACHS PRAMOD Administration Protocol Lisinopril 40 mg 11/30/20 09:00 12/02/20 08:19 Lisinopril 40 Mg Tablet PO 40 mg DAILY PRAMOD Administration Protocol Metoprolol Succinate 100 mg 11/30/20 09:00 12/02/20 08:19 Metoprolol Succinate Er 100 Mg Tab.Er.24h PO 100 mg DAILY PRAMOD Administration Protocol Mirtazapine 7.5 mg 11/29/20 21:17 12/01/20 20:30 Mirtazapine 7.5 Mg Tablet PO 7.5 mg BEDTIME PRAMOD Administration Ondansetron HCl 4 mg 11/29/20 21:17 Ondansetron Hcl 4 Mg/2 Ml Vial IVPUSH Q8H PRN Nausea and Vomiting Pharmacy Consult 1 each 11/29/20 21:17 Consult Rx Vancomycin Dosing MISCELLANE DAILY PRN Consult order Sodium Chloride 3 ml 11/30/20 00:00 12/02/20 16:26 0.9 % Sodium Chloride Flush 3 Ml Syringe IVFLUSH 3 ml QSHIFT PRAMOD Administration Timolol Maleate 1 drop 11/29/20 21:17 12/02/20 09:40 Timolol Maleate 0.5 % Oph [place] 5 Ml Drbtl EYE-BOTH 1 drop BID PRAMOD Administration Vitamin D 25 mcg 11/30/20 09:00 12/02/20 08:18 Cholecalciferol (Vitamin D3) 25 Mcg Tablet PO 25 mcg DAILY PRAMOD Administration Time Spent With Patient Time: Total time spent is greater than 50% in coordination of care (as documented) at patient's floor/unit and/or counseling patient: Time with patient: 25 - 35 minutes Procedures Date of Service Date of Service: 12/02/20 Quality Stroke Does the patient have a stroke diagnosis?: No VTE Prior VTE?: No VTE Risk Level:: Medical - moderate - high VTE Device Contraindication: Treatment Not Indicated VTE Drug Contraindication: N/A - Med Ordered
[2020-12-02 19:37] VITALS: BP 124/51; PULSE 47; RESP 18; TEMP 36.4; O2SAT 98
[2020-12-02 20:45] LABS: Glucose, Whole Blood 116 mg/dL (60-115)
[2020-12-02] MEDS: Mirtazapine 7.5 MG TABLET PO (21:13)
[2020-12-02] MEDS: Atorvastatin Calcium 10 MG TABLET PO (21:13)
[2020-12-02 21:34] LABS: Vancomycin Trough 17.7 mcg/mL (10.0-20.0)
[2020-12-02 23:58] VITALS: BP 143/63; PULSE 46; RESP 16; TEMP 36; O2SAT 94
[2020-12-03] MEDS: Piperacillin Sodium/Tazobactam 3.375 GM in 0.9 % Sodium Chloride 50 ML IV ×4 (03:02→21:27)
[2020-12-03 03:46] VITALS: BP 97/50; PULSE 48; RESP 16; TEMP 36; O2SAT 96
[2020-12-03 07:17] LABS: Anion Gap 13 (12-20); Blood Urea Nitrogen 32 mg/dL (9-16); Calcium 8.9 mg/dL (8.4-10.2); Carbon Dioxide 28 mmol/L (22-29); Chloride 104 mmol/L (96-108); Creatinine Clr Calc Pharmacy 57.8; Estimated Glomerular Filt Rate > 60; Glucose Random 89 mg/dL (60-115); Potassium 3.7 mmol/L (3.3-5.1); Sodium 141 mmol/L (135-145)
[2020-12-03 07:20] VITALS: BP 161/69; PULSE 50; RESP 17; TEMP 36.3; O2SAT 99
[2020-12-03 07:36] LABS: Glucose, Whole Blood 85 mg/dL (60-115)
[2020-12-03] MEDS: amLODIPine Besylate 10 MG TABLET PO (08:06)
[2020-12-03] MEDS: lisinopriL 40 MG TABLET PO (08:06)
[2020-12-03] MEDS: Apixaban 5 MG TABLET PO (08:06)
[2020-12-03] MEDS: Furosemide 40 MG/4 ML VIAL IVPUSH (08:06)
[2020-12-03] MEDS: Cholecalciferol (Vitamin D3) 25 MCG TABLET PO (08:06)
[2020-12-03] MEDS: 0.9 % Sodium Chloride Flush 3 ML SYRINGE IVFLUSH ×3 (08:06→21:28)
[2020-12-03] MEDS: Amiodarone HCL 200 MG TABLET PO (08:06)
[2020-12-03] MEDS: Clopidogrel Bisulfate 75 MG TABLET PO (08:06)
[2020-12-03] MEDS: timoloL maleate 0.5 % Oph Sol 5 ML DRBTL 1 DROP EYE-BOTH ×2 (08:09→21:30)
[2020-12-03] MEDS: vancomycin HCL 500 MG in 0.9 % Sodium Chloride 100 ML 110 MG IV ×2 (09:26→22:01)
[2020-12-03 11:18] VITALS: BP 142/62; PULSE 49; RESP 16; TEMP 36.2; O2SAT 97
[2020-12-03 11:26] LABS: Glucose, Whole Blood 101 mg/dL (60-115)
--- NOTE | 2020-12-03 12:02 | HO.VASCPN ---
Subjective Subjective Date of Service: 12/03/20 Patient reports: no new complaints and feels better Interval history: Patient seen and examined. No significant events overnight. Appears to be doing relatively well. Right lower extremity nonhealing ulcer of 3rd toe an amputation site. Relatively clean. Erythema has significantly decreased. Physical Exam Vital Signs: Vital Signs: Last Vital Signs Temp 97.2 F 12/03/20 11:18 Pulse 49 L 12/03/20 11:18 Resp 16 12/03/20 11:18 BP 142/62 H 12/03/20 11:18 Pulse Ox 97 12/03/20 11:18 Body Mass Index 25.8 Const: General: cooperative, healthy appearing and no acute distress Orientation/consciousness: oriented to person, oriented to place and oriented to time HENMT: Head: Yes normal to inspection Neck: Carotids: no bruits Chest: Chest palpation & inspection: normal inspection of the chest Resp: Effort & Inspection: normal respiratory effort and able to speak in complete sentences Auscultation: clear to auscultation bilaterally Cardio: Rate: regular rate Heart sounds: S1 normal heart sound present and S2 normal heart sound present GI: Inspection: Yes normal to inspection Skin: General skin exam: no rashes or lesions noted Wounds: amputation site (Nonhealing midportion) and wounds noted (Right 3rd toe ) Neuro: General: oriented to person, oriented to place, oriented to time and CN's II-XI intact bilaterally Extrem: General: Yes normal to inspection, Yes full ROM and Yes no clubbing, cyanosis or edema Psych: Appearance: grossly normal and well kempt Speech and movement: Normal speech and movement present Affect: normal affect Progress Note: A&P Assessment and plan (1) PAD (peripheral artery disease): Status: Acute Assessment and Plan: Patient notes leg pain when walking distances. I have discussed the pathophysiology of peripheral vascular disease with the patient. I have also discussed risk factor modification. I have reviewed the patient's arterial testing which reveals right SFA and below-knee disease. the patient would benefit from a right leg endovascular peripheral angiogram with possible angioplasty, stent, and/or atherectomy. This has been discussed in detail with the patient along with risks, benefits, and complications. This includes but is not limited to bleeding, infection, heart attack, need for emergent surgical repair, limb ischemia, blood vessel damage, bleeding, puncture, kidney injury, bruising, allergic reaction, and skin reaction. The patient demonstrates a clear understanding. He is scheduled for 730 tomorrow morning. We will hold Book&Table. Thank you for allowing us to assist in his care. Fall Risk Details Current Medications: Current Medications Generic Name Dose Route Start Last Admin Trade Name Freq PRN Reason Stop Dose Admin Acetaminophen 650 mg 11/29/20 21:17 Acetaminophen 325 Mg Tablet PO Q6H PRN Pain, Mild (Pain Scale 1-3) Amiodarone HCl 200 mg 11/30/20 09:00 12/03/20 08:06 Amiodarone Hcl 200 Mg Tablet PO 200 mg DAILY PRAMOD Administration Amlodipine Besylate 10 mg 11/30/20 09:00 12/03/20 08:06 Amlodipine Besylate 10 Mg Tablet PO 10 mg DAILY PRAMOD Administration Protocol Apixaban 5 mg 11/29/20 21:17 12/03/20 08:06 Apixaban 5 Mg Tablet PO 5 mg BID PRAMOD Administration Atorvastatin Calcium 10 mg 11/29/20 21:17 12/02/20 21:13 Atorvastatin Calcium 10 Mg Tablet PO 10 mg BEDTIME PRAMOD Administration Clopidogrel Bisulfate 75 mg 11/30/20 09:00 12/03/20 08:06 Clopidogrel Bisulfate 75 Mg Tablet PO 75 mg DAILY PRAMOD Administration Dextrose 25 gm 11/29/20 21:17 Dextrose 50 % 25 Gm/50 Ml Vial IVPUSH Q15M PRN per Hypoglycemia Standing Ord. Protocol Docusate Sodium 100 mg 11/29/20 21:17 Docusate Sodium 100 Mg Capsule PO DAILY PRN Constipation Furosemide 40 mg 11/30/20 09:00 12/03/20 08:06 Furosemide 40 Mg/4 Ml Vial IVPUSH 40 mg DAILY PRAMOD Administration Protocol Glucose 15 gm 11/29/20 21:17 Glucose Gel 15 Gm Gel..Gram. PO Q15M PRN per Hypoglycemia Standing Ord. Protocol Piperacillin Sod/Tazobactam 50 mls @ 100 mls/hr 11/30/20 03:00 12/03/20 08:50 Sod 3.375 gm/ Sodium Chloride IV Infused Q6H PRAMOD Infusion Vancomycin HCl 500 mg/ Sodium 110 mls @ 110 mls/hr 12/01/20 10:00 12/03/20 10:34 Chloride IV Infused Q12H PRAMOD Infusion Sodium Chloride 1,000 mls @ 100 mls/hr 12/04/20 06:00 Ns IVCONT .Q10H PRAMOD Insulin Human Lispro 0 unit 11/29/20 21:17 12/03/20 11:57 Insulin Lispro 100 Unit/Ml 3 Ml Vial SUBCUT Not Given QIDACHS [facility] Protocol Lisinopril 40 mg 11/30/20 09:00 12/03/20 08:06 Lisinopril 40 Mg Tablet PO 40 mg DAILY PRAMOD Administration Protocol Metoprolol Succinate 100 mg 11/30/20 09:00 12/03/20 08:07 Metoprolol Succinate Er 100 Mg Tab.Er.24h PO Not Given DAILY [facility] Protocol Mirtazapine 7.5 mg 11/29/20 21:17 12/02/20 21:13 Mirtazapine 7.5 Mg Tablet PO 7.5 mg BEDTIME PRAMOD Administration Ondansetron HCl 4 mg 11/29/20 21:17 Ondansetron Hcl 4 Mg/2 Ml Vial IVPUSH Q8H PRN Nausea and Vomiting Pharmacy Consult 1 each 11/29/20 21:17 Consult Rx Vancomycin Dosing MISCELLANE DAILY PRN Consult order Sodium Chloride 3 ml 11/30/20 00:00 12/03/20 08:06 0.9 % Sodium Chloride Flush 3 Ml Syringe IVFLUSH 3 ml QSHIFT PRAMOD Administration Timolol Maleate 1 drop 11/29/20 21:17 12/03/20 08:09 Timolol Maleate 0.5 % Oph [place] 5 Ml Drbtl EYE-BOTH 1 drop BID PRAMOD Administration Vitamin D 25 mcg 11/30/20 09:00 12/03/20 08:06 Cholecalciferol (Vitamin D3) 25 Mcg Tablet PO 25 mcg DAILY PRAMOD Administration Time Spent With Patient Time: Total time spent is greater than 50% in coordination of care (as documented) at patient's floor/unit and/or counseling patient: Time with patient: 25 - 35 minutes Procedures Date of Service Date of Service: 12/03/20 Quality Stroke Does the patient have a stroke diagnosis?: No VTE Prior VTE?: No VTE Risk Level:: Medical - moderate - high VTE Device Contraindication: Treatment Not Indicated VTE Drug Contraindication: N/A - Med Ordered
--- NOTE | 2020-12-03 13:12 | HO.PM.IMPN ---
Subjective Subjective Date of Service: 12/03/20 Interval History: no complaints Constitutional Constitutional: Reports no additional constitutional complaints Eyes Eyes: Reports no additional eye complaints Physical Exam Vital Signs: Vital Signs: Last Vital Signs Temp 97.2 F 12/03/20 11:18 Pulse 49 L 12/03/20 11:18 Resp 16 12/03/20 11:18 BP 142/62 H 12/03/20 11:18 Pulse Ox 97 12/03/20 11:18 Body Mass Index 25.8 General: AO X 3, no acute distress Resp: CTA bilateral CVS: S1,S2,RRR GI: soft, non tender, non distended Neuro: motor grossly intact Psych: appropriate affect ?amputation site (Nonhealing midportion) and wounds noted (Right 3rd toe ) Objective Data Current Medications Generic Name Dose Route Start Last Admin Trade Name Freq PRN Reason Stop Dose Admin Acetaminophen 650 mg 11/29/20 21:17 Acetaminophen 325 Mg Tablet PO Q6H PRN Pain, Mild (Pain Scale 1-3) Amiodarone HCl 200 mg 11/30/20 09:00 12/03/20 08:06 Amiodarone Hcl 200 Mg Tablet PO 200 mg DAILY PRAMOD Administration Amlodipine Besylate 10 mg 11/30/20 09:00 12/03/20 08:06 Amlodipine Besylate 10 Mg Tablet PO 10 mg DAILY PRAMOD Administration Protocol Apixaban 5 mg 11/29/20 21:17 12/03/20 08:06 Apixaban 5 Mg Tablet PO 5 mg BID PRAMOD Administration Atorvastatin Calcium 10 mg 11/29/20 21:17 12/02/20 21:13 Atorvastatin Calcium 10 Mg Tablet PO 10 mg BEDTIME PRAMOD Administration Clopidogrel Bisulfate 75 mg 11/30/20 09:00 12/03/20 08:06 Clopidogrel Bisulfate 75 Mg Tablet PO 75 mg DAILY PRAMOD Administration Dextrose 25 gm 11/29/20 21:17 Dextrose 50 % 25 Gm/50 Ml Vial IVPUSH Q15M PRN per Hypoglycemia Standing Ord. Protocol Docusate Sodium 100 mg 11/29/20 21:17 Docusate Sodium 100 Mg Capsule PO DAILY PRN Constipation Furosemide 40 mg 11/30/20 09:00 12/03/20 08:06 Furosemide 40 Mg/4 Ml Vial IVPUSH 40 mg DAILY PRAMOD Administration Protocol Glucose 15 gm 11/29/20 21:17 Glucose Gel 15 Gm Gel..Gram. PO Q15M PRN per Hypoglycemia Standing Ord. Protocol Piperacillin Sod/Tazobactam 50 mls @ 100 mls/hr 11/30/20 03:00 12/03/20 08:50 Sod 3.375 gm/ Sodium Chloride IV Infused Q6H PRAMOD Infusion Vancomycin HCl 500 mg/ Sodium 110 mls @ 110 mls/hr 12/01/20 10:00 12/03/20 10:34 Chloride IV Infused Q12H PRAMOD Infusion Sodium Chloride 1,000 mls @ 100 mls/hr 12/04/20 06:00 Ns IVCONT .Q10H PRAMOD Insulin Human Lispro 0 unit 11/29/20 21:17 12/03/20 11:57 Insulin Lispro 100 Unit/Ml 3 Ml Vial SUBCUT Not Given QIDACHS [facility] Protocol Lisinopril 40 mg 11/30/20 09:00 12/03/20 08:06 Lisinopril 40 Mg Tablet PO 40 mg DAILY PRAMOD Administration Protocol Metoprolol Succinate 100 mg 11/30/20 09:00 12/03/20 08:07 Metoprolol Succinate Er 100 Mg Tab.Er.24h PO Not Given DAILY [facility] Protocol Mirtazapine 7.5 mg 11/29/20 21:17 12/02/20 21:13 Mirtazapine 7.5 Mg Tablet PO 7.5 mg BEDTIME [facility] Administration Ondansetron HCl 4 mg 11/29/20 21:17 Ondansetron Hcl 4 Mg/2 Ml Vial IVPUSH Q8H PRN Nausea and Vomiting Pharmacy Consult 1 each 11/29/20 21:17 Consult Rx Vancomycin Dosing MISCELLANE DAILY PRN Consult order Sodium Chloride 3 ml 11/30/20 00:00 12/03/20 08:06 0.9 % Sodium Chloride Flush 3 Ml Syringe IVFLUSH 3 ml QSHIFT PRAMOD Administration Timolol Maleate 1 drop 11/29/20 21:17 12/03/20 08:09 Timolol Maleate 0.5 % Oph [place] 5 Ml Drbtl EYE-BOTH 1 drop BID PRAMOD Administration Vitamin D 25 mcg 11/30/20 09:00 12/03/20 08:06 Cholecalciferol (Vitamin D3) 25 Mcg Tablet PO 25 mcg DAILY PRAMOD Administration Labs CBC & Chem 7: 12/02/20 05:43 12/03/20 06:07 Labs: Laboratory Results - last 24 hr 08/17/21 08/17/21 08/17/21 15:59 20:17 20:41 Anion Gap Estim Creat Clear Calc Estimated GFR POC Glucose 153 H 116 H Random Glucose Calcium Vancomycin Trough 17.7 12/03/20 12/03/20 12/03/20 06:07 07:20 11:17 Anion Gap 13 Estim Creat Clear Calc 57.8 Estimated GFR > 60 POC Glucose 85 101 Random Glucose 89 Calcium 8.9 Vancomycin Trough Assessment and Plan (1) Osteomyelitis of toe of right foot: Status: Acute (2) Diabetic foot ulcer: Status: Acute (3) Cellulitis and abscess of foot: Status: Acute Assessment and Plan: 75-year-old male with past medical history of 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, diabetes, diabetic neuropathy, presents to the hospital with right foot swelling, erythema, as well as 3rd right toe ulcer diabetic foot ulcer/ OM RLE cellulitis open wound of the 3rd right toe elevated ESR and CRP MRI showed evidence of erosion of 3rd distal phalanx from osteomyelitis Wound culture growing MRSA and pseudomonas and GBS Continue IV antibiotics - vanc, zosyn, will likely need 6 weeks of same (01/10) Surgery input appreciated, debridement done at the bedside PAD Recent arterial ultrasound for lower extremities showing significant stenosis Vascular surgery input appreciated, to do angiography tomorrow AFib continue metoprolol and apixaban (on hold for angio) as well as amiodarone hypertension stable continue amlodipine DVT prophylaxis eliquis Quality Stroke Does the patient have a stroke diagnosis?: No VTE Prior VTE?: No VTE Risk Level:: Medical - moderate - high VTE Device Contraindication: Treatment Not Indicated VTE Drug Contraindication: N/A - Med Ordered
--- NOTE | 2020-12-03 13:33 | HO.PICC ---
PICC Line Insertion [facility] Diagnosis: R FOOT OSTEOMYELITIS Indication: COIL STRAPPER IV ANTIBIOTICS Pertinent Labs: REVIEWED Technique: Following informed consent including risks, benefits and alternatives and using sterile technique including cap and mask, sterile gown, glove and drape, the RIGHT arm was prepped and draped in the usual sterile fashion of full barrier technique with [facility]. Following completion of [place] Protocol the skin and soft tissues were anesthetized with 1% Lidocaine plain. Using ultrasound guidance, BASILIC vein access was obtained IN SINGLE ATTEMPT BY THIS RN; x1 UNSUCCESSFUL ATTEMPT USING R BRACHIAL VEIN, SO TOTAL x2 ATTEMPTS MADE BY THIS RN. Over an 0.018 wire through peel-away sheath, a SINGLE LUMEN, PASV, 4-LUXEMBOURGISH PICC line was positioned. Catheter length is 46 CM internal length, 0 CM external length, for a total trimmed length of 46 CM. The procedure was performed in S-272. Tip verification was performed by Meliza West with Sherlock 3CG. Tip located in SVC. Ultrasound was used to document vein patency and for needle entry. A formal ultrasound picture and cardiac rhythm strip was recorded. Vascular Table Keeper has released the line for use and it is currently dressed with a StatLock, Tegaderm, and CHG disc. Verification has been performed for blood return and line patency. Arm Circumference: 27.5 CM Equipment: GonnaBe POWERPICC SOLO Catheter Type: SINGLE LUMEN, 4-LUXEMBOURGISH, PASV Lot #: [id number]
[2020-12-03 15:23] VITALS: BP 136/56; PULSE 54; RESP 18; TEMP 36.2; O2SAT 98
[2020-12-03 16:01] LABS: Glucose, Whole Blood 203 mg/dL (60-115)
--- NOTE | 2020-12-03 16:02 | MHC.CM.PN ---
EMR REVIEWED, PICC LINE PLACED TODAY, [facility] REFERRALS UPDATED, PER HOSPITALIST POSSIBLE ANGIO TOMORROW 12/04/20.
[2020-12-03] MEDS: Insulin Lispro 100 UNIT/ML 3 ML VIAL SUBCUT (16:47)
[2020-12-03 19:32] VITALS: BP 133/61; PULSE 60; RESP 18; TEMP 36.6; O2SAT 96
[2020-12-03 20:21] LABS: Glucose, Whole Blood 113 mg/dL (60-115)
[2020-12-03] MEDS: Atorvastatin Calcium 10 MG TABLET PO (21:27)
[2020-12-03] MEDS: Mirtazapine 7.5 MG TABLET PO (21:27)
--- NOTE | 2020-12-03 22:14 | PM.EVENT ---
Event Note Date of Service: 12/03/20 Event Note: He has MRSA and Pseudomonas and Group A strep Would give Zosyn and Vancomycin for 6 weeks
[2020-12-04] VITALS (14 sets, daily range): BP systolic 119–160; BP diastolic 55–75; PULSE 43–71; RESP 16–18; TEMP 36.3–36.9; O2SAT 94–99
[2020-12-04] MEDS: Piperacillin Sodium/Tazobactam 3.375 GM in 0.9 % Sodium Chloride 50 ML IV ×4 (03:20→23:31)
[2020-12-04 06:24] LABS: Glucose, Whole Blood 108 mg/dL (60-115)
[2020-12-04] MEDS: 0.9 % Sodium Chloride 1,000 ML 100 ML IVCONT (06:32)
[2020-12-04 06:55] LABS: INTERNATIONAL NORM RATIO 1.4 (0.9-1.1); Prothrombin Time 15.5 SEC (9.9-13.0)
[2020-12-04 06:58] LABS: Partial Thromboplastin Time 35.3 SEC (24.1-38.0)
--- NOTE | 2020-12-04 08:56 | P.OP_ITS ---
Operative Note Operative Note Date of Service: 12/04/20 Narrative: Angiogram report from [facility] Preoperative diagnosis: Atherosclerosis of right lower extremity with nonhealing ulcer Postoperative diagnosis: Same Procedure: 1. Ultrasound-guided left common femoral access 2. Aortogram with right lower extremity runoff 3. Right common iliac stent Surgeon:Juan Oscar M.D. [employer]:None Anesthesia: Local with moderate conscious sedation for a total of 43 minutes, performed by nc Specimens:none Drains:none Estimated blood loss: Less than 10 ml Indications: Pleasant 75-year-old gentleman with nonhealing right lower extremity ulcer. He now presents for endovascular intervention. The patient has signed the informed consent after reviewing risks, complications, benefits, and alternatives previously discussed with the patient. The patient was given the opportunity to ask any additional questions or voice any concerns. All questions were answered to the patient's satisfaction. Procedure in detail: Patient was brought to the angiography suite prior to which a time-out was called for patient identification and site verification. Bilateral groins were prepped and draped in the standard surgical fashion. Under ultrasound guidance left common femoral was punctured with micro puncture needle and wire. Subsequently a precision 4 Kazakh sheath was then placed. Zillow wire was advanced to the level of the aorta. 4 Kazakh Flush catheter was brought up and parked at the level of the renal arteries. Aortogram was then undertaken. Catheter was brought down to the level of the iliac bifurcation. Iliacs were subsequently imaged. Catheter was then brought in up and over to the right side SFA. Runoff study was then undertaken. It was recognized that the patient had 1 vessel runoff. No below-knee intervention was indicated but the iliac did have significant disease. At this time we administered 3000 units of systemic heparin. Six Kazakh sheath was then placed. We were able to traverse this area 0 with a Glidewire Advantage. We then plasty the right common iliac with a 7 x 20 balloon. Subsequently a visi Pro 8x17 balloon expandable stent was then placed. Patient tolerated that well. Completion angiogram demonstrated good result. Catheter wire sheath was brought back to the ipsilateral side. StarClose closure device was deployed. Patient tolerated the procedure well. Returned to recovery with stable vitals. Interpretation of films: 1. Ultrasound demonstrates appropriate femoral puncture. Image of which was saved. 2. Aortogram demonstrates appropriate caliber aorta. Moderate disease with stenotic aortic bifurcation and calcifications throughout the entire iliac tree. Appropriate take-off of the renals. 3. Iliac images demonstrate iliacs calcified. Right common iliac had moderate stenosis. 4. Right lower extremity demonstrated good flow through the SFA smaller caliber vessel all the way down through the popliteal. One vessel runoff which was the peroneal. Conclusion: 1. Successful right iliac stent. The patient has significant below-knee disease but should be able to heal wound. This note is constructed using voice recognition software. While every effort has been made to ensure accuracy, communications intern errors may have been included. Thank you for allowing me to participate in the care of your patient. Yours sincerely, Juan Oscar MD, FACS, R.P.V.I.
[2020-12-04] MEDS: iohexoL 300 MG/ML 100 ML INFUS..BTL IV (09:10)
--- NOTE | 2020-12-04 09:38 | MHC.CM.PN ---
Addendum entered by Mony Le RN 12/04/20 10:07: PT'S ANSELMO RETURNED CALL AT 9:55AM W/PREFERENCES FOR [facility], #1 TANIA FITZGERALD AND #2LAQUITA OF , REFERRALS SENT TO BOTH. Original Note: EMR REVIEWED, PER ID PT WILL NEED MULTIPLE ABX, CM RECEIVED CALL FROM PT'S MITCHELL, CM ATTEMPTED TO CALL ANSELMO BACK 0930 , NO ANSWER MESSAGE LEFT TO DISCUSS SNF PREFERENCES PT'S UNCOMFORTABLE W/ABX AT HOME MORE THAN ONCE DAILY, CM WILL FOLLOW-UP W/PT WHO IS OFF UNIT FOR ANGIOGRAM AND IF NO RESPONSE.
[2020-12-04] MEDS: lisinopriL 40 MG TABLET PO (11:17)
[2020-12-04] MEDS: Cholecalciferol (Vitamin D3) 25 MCG TABLET PO (11:17)
[2020-12-04] MEDS: amLODIPine Besylate 10 MG TABLET PO (11:17)
[2020-12-04] MEDS: Amiodarone HCL 200 MG TABLET PO (11:17)
[2020-12-04] MEDS: Clopidogrel Bisulfate 75 MG TABLET PO (11:17)
[2020-12-04] MEDS: Furosemide 40 MG/4 ML VIAL IVPUSH (11:17)
[2020-12-04] MEDS: timoloL maleate 0.5 % Oph Sol 5 ML DRBTL 1 DROP EYE-BOTH ×2 (11:18→21:54)
[2020-12-04] MEDS: 0.9 % Sodium Chloride Flush 3 ML SYRINGE IVFLUSH ×3 (11:18→23:33)
[2020-12-04] MEDS: vancomycin HCL 500 MG in 0.9 % Sodium Chloride 100 ML 110 MG IV ×2 (11:22→22:27)
[2020-12-04 11:47] LABS: Glucose, Whole Blood 105 mg/dL (60-115)
--- NOTE | 2020-12-04 13:25 | P.PNIM_ITS ---
Subjective Subjective Date of Service: 12/04/20 Interval History: no complaints Constitutional Constitutional: Reports no additional constitutional complaints Eyes Eyes: Reports no additional eye complaints Physical Exam Vital Signs: Vital Signs: Last Vital Signs Temp 98.3 F 12/04/20 10:58 Pulse 49 L 12/04/20 11:17 Resp 17 12/04/20 10:58 BP 160/75 H 12/04/20 12:00 Pulse Ox 99 12/04/20 10:58 Body Mass Index 25.8 General: AO X 3, no acute distress Resp:? CTA bilateral CVS: S1,S2,RRR GI: soft, non tender, non distended Neuro:? motor grossly intact Psych: appropriate affect ?amputation site (Nonhealing midportion) and wounds noted (Right 3rd toe ) Objective Data Current Medications Generic Name Dose Route Start Last Admin Trade Name Freq PRN Reason Stop Dose Admin Acetaminophen 650 mg 11/29/20 21:17 Acetaminophen 325 Mg Tablet PO Q6H PRN Pain, Mild (Pain Scale 1-3) Amiodarone HCl 200 mg 11/30/20 09:00 12/04/20 11:17 Amiodarone Hcl 200 Mg Tablet PO 200 mg DAILY PRAMOD Administration Amlodipine Besylate 10 mg 11/30/20 09:00 12/04/20 11:17 Amlodipine Besylate 10 Mg Tablet PO 10 mg DAILY PRAMOD Administration Protocol Apixaban 5 mg 11/29/20 21:17 12/03/20 08:06 Apixaban 5 Mg Tablet PO 5 mg BID PRAMOD Administration Atorvastatin Calcium 10 mg 11/29/20 21:17 12/03/20 21:27 Atorvastatin Calcium 10 Mg Tablet PO 10 mg BEDTIME PRAMOD Administration Clopidogrel Bisulfate 75 mg 11/30/20 09:00 12/04/20 11:17 Clopidogrel Bisulfate 75 Mg Tablet PO 75 mg DAILY PRAMOD Administration Dextrose 25 gm 11/29/20 21:17 Dextrose 50 % 25 Gm/50 Ml Vial IVPUSH Q15M PRN per Hypoglycemia Standing Ord. Protocol Docusate Sodium 100 mg 11/29/20 21:17 Docusate Sodium 100 Mg Capsule PO DAILY PRN Constipation Furosemide 40 mg 11/30/20 09:00 12/04/20 11:17 Furosemide 40 Mg/4 Ml Vial IVPUSH 40 mg DAILY PRAMOD Administration Protocol Glucose 15 gm 11/29/20 21:17 Glucose Gel 15 Gm Gel..Gram. PO Q15M PRN per Hypoglycemia Standing Ord. Protocol Vancomycin HCl 500 mg/ Sodium 110 mls @ 110 mls/hr 12/01/20 10:00 12/04/20 12:29 Chloride IV Infused Q12H PRAMOD Infusion Piperacillin Sod/Tazobactam 50 mls @ 100 mls/hr 12/04/20 12:00 12/04/20 12:55 Sod 3.375 gm/ Sodium Chloride IV Infused Q6H PRAMOD Infusion Insulin Human Lispro 0 unit 11/29/20 21:17 12/04/20 11:29 Insulin Lispro 100 Unit/Ml 3 Ml Vial SUBCUT Not Given QIDACHS [facility] Protocol Lisinopril 40 mg 11/30/20 09:00 12/04/20 11:17 Lisinopril 40 Mg Tablet PO 40 mg DAILY PRAMOD Administration Protocol Metoprolol Succinate 100 mg 11/30/20 09:00 12/04/20 11:18 Metoprolol Succinate Er 100 Mg Tab.Er.24h PO Not Given DAILY [facility] Protocol Mirtazapine 7.5 mg 11/29/20 21:17 12/03/20 21:27 Mirtazapine 7.5 Mg Tablet PO 7.5 mg BEDTIME [facility] Administration Ondansetron HCl 4 mg 11/29/20 21:17 Ondansetron Hcl 4 Mg/2 Ml Vial IVPUSH Q8H PRN Nausea and Vomiting Pharmacy Consult 1 each 11/29/20 21:17 Consult Rx Vancomycin Dosing MISCELLANE DAILY PRN Consult order Sodium Chloride 3 ml 11/30/20 00:00 12/04/20 11:18 0.9 % Sodium Chloride Flush 3 Ml Syringe IVFLUSH 3 ml QSHIFT [facility] Administration Timolol Maleate 1 drop 11/29/20 21:17 12/04/20 11:18 Timolol Maleate 0.5 % Oph Spring 5 Ml Drbtl EYE-BOTH 1 drop BID PRAMOD Administration Vitamin D 25 mcg 11/30/20 09:00 12/04/20 11:17 Cholecalciferol (Vitamin D3) 25 Mcg Tablet PO 25 mcg DAILY PRAMOD Administration Labs CBC & Chem 7: 12/02/20 05:43 12/03/20 06:07 Labs: Laboratory Results - last 24 hr 12/03/20 12/03/20 12/04/20 15:53 20:13 05:56 PT 15.5 H INR 1.4 H APTT 35.3 POC Glucose 203 H 113 12/04/20 12/04/20 06:20 11:26 PT INR APTT POC Glucose 108 105 Assessment and Plan (1) Osteomyelitis of toe of right foot: Status: Acute (2) Diabetic foot ulcer: Status: Acute (3) Cellulitis and abscess of foot: Status: Acute Assessment and Plan: 75-year-old male with past medical history of 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, diabetes, diabetic neuropathy, presents to the hospital with right foot swelling, erythema, as well as 3rd right toe ulcer diabetic foot ulcer/ OM RLE cellulitis open wound of the 3rd right toe elevated ESR and CRP MRI showed evidence of erosion of 3rd distal phalanx from osteomyelitis Wound culture growing MRSA and pseudomonas and GBS Continue IV antibiotics - vanc, zosyn, will likely need 6 weeks of same (end 01/10) s/p debridement done at the bedside PAD Recent arterial ultrasound for lower extremities showing significant stenosis s/p angio today - stent placed right common iliac AFib continue metoprolol and apixaban as well as amiodarone hypertension stable continue amlodipine DVT prophylaxis eliquis Quality Stroke Does the patient have a stroke diagnosis?: No VTE Prior VTE?: No VTE Risk Level:: Medical - moderate - high VTE Device Contraindication: Treatment Not Indicated VTE Drug Contraindication: N/A - Med Ordered
[2020-12-04 16:24] LABS: Glucose, Whole Blood 146 mg/dL (60-115)
[2020-12-04 20:32] LABS: Glucose, Whole Blood 138 mg/dL (60-115)
[2020-12-04] MEDS: Mirtazapine 7.5 MG TABLET PO (21:53)
[2020-12-04] MEDS: Atorvastatin Calcium 10 MG TABLET PO (21:53)
[2020-12-04] MEDS: Apixaban 5 MG TABLET PO (21:53)
[2020-12-04 22:09] LABS: Vancomycin Trough 20.4 mcg/mL (10.0-20.0)
[2020-12-05] VITALS (7 sets, daily range): BP systolic 108–152; BP diastolic 45–70; PULSE 48–62; RESP 14–20; TEMP 36.6–36.8; O2SAT 96–99
[2020-12-05] MEDS: Piperacillin Sodium/Tazobactam 3.375 GM in 0.9 % Sodium Chloride 50 ML IV ×4 (05:42→23:41)
[2020-12-05 06:43] LABS: Hematocrit 36.6 % (42-52); Hemoglobin 11.9 g/dl (14.0-18.0); Mean Corpuscular HGB Conc 32.5 g/dl (31.0-36.0); Mean Corpuscular Hemoglobin 29.6 pg (27.0-33.0); Mean Platelet Volume 11.3 fL (9.4-12.4); Platelet Count 260 X10*3/uL (160-400); Red Blood Count 4.02 X10*6/uL (4.60-5.80); Red Cell Distribution Width 15.9 % (11.0-16.0); White Blood Count 11.5 X10*3/uL (4.8-10.8)
[2020-12-05 07:06] LABS: Anion Gap 13 (12-20); Blood Urea Nitrogen 37 mg/dL (9-16); Calcium 9.1 mg/dL (8.4-10.2); Carbon Dioxide 27 mmol/L (22-29); Chloride 105 mmol/L (96-108); Creatinine Clr Calc Pharmacy 46.5; Estimated Glomerular Filt Rate 52; Glucose Fasting 97 mg/dL (60-99); Potassium 4.2 mmol/L (3.3-5.1); Sodium 141 mmol/L (135-145)
[2020-12-05 07:44] LABS: Glucose, Whole Blood 95 mg/dL (60-115)
[2020-12-05] MEDS: Apixaban 5 MG TABLET PO ×2 (09:47→20:32)
[2020-12-05] MEDS: Cholecalciferol (Vitamin D3) 25 MCG TABLET PO (09:47)
[2020-12-05] MEDS: 0.9 % Sodium Chloride Flush 3 ML SYRINGE IVFLUSH ×3 (09:47→22:21)
[2020-12-05] MEDS: Clopidogrel Bisulfate 75 MG TABLET PO (09:47)
[2020-12-05] MEDS: amLODIPine Besylate 10 MG TABLET PO (09:49)
[2020-12-05] MEDS: lisinopriL 40 MG TABLET PO (09:49)
[2020-12-05] MEDS: Furosemide 40 MG/4 ML VIAL IVPUSH (09:50)
[2020-12-05] MEDS: timoloL maleate 0.5 % Oph Sol 5 ML DRBTL 1 DROP EYE-BOTH (09:56)
[2020-12-05] MEDS: Amiodarone HCL 200 MG TABLET PO (09:58)
--- NOTE | 2020-12-05 10:57 | P.PNVS_ITS ---
Subjective Subjective Date of Service: 12/05/20 Patient reports: no new complaints and feels better Interval history: Patient is postop day 1 status post endovascular intervention. Appears to be doing relatively well. No interval issues overnight. He is resting in bed comfortably. Currently with antibiotic therapy. Reports no issues with right lower extremity. Physical Exam Vital Signs: Vital Signs: Last Vital Signs Temp 98.0 F 12/05/20 08:00 Pulse 51 12/05/20 09:49 Resp 16 12/05/20 08:00 BP 151/67 H 12/05/20 09:49 Pulse Ox 98 12/05/20 08:00 Body Mass Index 25.8 Const: General: cooperative, healthy appearing and no acute distress Orientation/consciousness: oriented to person, oriented to place and oriented to time HENMT: Head: Yes normal to inspection Neck: Carotids: no bruits Chest: Chest palpation & inspection: normal inspection of the chest Resp: Effort & Inspection: normal respiratory effort and able to speak in complete sentences Auscultation: clear to auscultation bilaterally Cardio: Rate: regular rate Heart sounds: S1 normal heart sound present and S2 normal heart sound present GI: Inspection: Yes normal to inspection Skin: General skin exam: no rashes or lesions noted Wounds: amputation site (Opening in mid amp site) and wounds noted (Right 3rd toe relatively clean) Neuro: General: oriented to person, oriented to place, oriented to time and CN's II-XI intact bilaterally Extrem: General: Yes normal to inspection, Yes full ROM and Yes no clubbing, cyanosis or edema Psych: Appearance: grossly normal and well kempt Speech and movement: Normal speech and movement present Affect: normal affect Progress Note: A&P Assessment and plan (1) PAD (peripheral artery disease): Status: Acute Assessment and Plan: Patient is stable status post endovascular intervention. Stable from my perspective for discharge. He can follow up with me as an outpatient in approximately 2 weeks time. He will be maintained on aspirin and Eliquis. We will closely monitor his wound status. Thank you for allowing us to assist in his care. If there are any questions or concerns please do not hesitate to contact us. Fall Risk Details Current Medications: Current Medications Generic Name Dose Route Start Last Admin Trade Name Freq PRN Reason Stop Dose Admin Acetaminophen 650 mg 11/29/20 21:17 Acetaminophen 325 Mg Tablet PO Q6H PRN Pain, Mild (Pain Scale 1-3) Amiodarone HCl 200 mg 11/30/20 09:00 12/05/20 09:58 Amiodarone Hcl 200 Mg Tablet PO 200 mg DAILY PRAMOD Administration Amlodipine Besylate 10 mg 11/30/20 09:00 12/05/20 09:49 Amlodipine Besylate 10 Mg Tablet PO 10 mg DAILY PRAMOD Administration Protocol Apixaban 5 mg 11/29/20 21:17 12/05/20 09:47 Apixaban 5 Mg Tablet PO 5 mg BID PRAMOD Administration Atorvastatin Calcium 10 mg 11/29/20 21:17 12/04/20 21:53 Atorvastatin Calcium 10 Mg Tablet PO 10 mg BEDTIME PRAMOD Administration Clopidogrel Bisulfate 75 mg 11/30/20 09:00 12/05/20 09:47 Clopidogrel Bisulfate 75 Mg Tablet PO 75 mg DAILY PRAMOD Administration Dextrose 25 gm 11/29/20 21:17 Dextrose 50 % 25 Gm/50 Ml Vial IVPUSH Q15M PRN per Hypoglycemia Standing Ord. Protocol Docusate Sodium 100 mg 11/29/20 21:17 Docusate Sodium 100 Mg Capsule PO DAILY PRN Constipation Furosemide 40 mg 11/30/20 09:00 12/05/20 09:50 Furosemide 40 Mg/4 Ml Vial IVPUSH 40 mg DAILY PRAMOD Administration Protocol Glucose 15 gm 11/29/20 21:17 Glucose Gel 15 Gm Gel..Gram. PO Q15M PRN per Hypoglycemia Standing Ord. Protocol Piperacillin Sod/Tazobactam 50 mls @ 100 mls/hr 12/04/20 12:00 12/05/20 06:22 Sod 3.375 gm/ Sodium Chloride IV Infused Q6H [facility] Infusion Vancomycin HCl 1,000 mg/ 270 mls @ 110 mls/hr 12/05/20 22:00 Sodium Chloride IV Q24H [facility] Insulin Human Lispro 0 unit 11/29/20 21:17 12/05/20 08:13 Insulin Lispro 100 Unit/Ml 3 Ml Vial SUBCUT Not Given QIDACHS [facility] Protocol Lisinopril 40 mg 11/30/20 09:00 12/05/20 09:49 Lisinopril 40 Mg Tablet PO 40 mg DAILY PRAMOD Administration Protocol Metoprolol Succinate 100 mg 11/30/20 09:00 12/05/20 09:49 Metoprolol Succinate Er 100 Mg Tab.Er.24h PO Not Given DAILY [facility] Protocol Mirtazapine 7.5 mg 11/29/20 21:17 12/04/20 21:53 Mirtazapine 7.5 Mg Tablet PO 7.5 mg BEDTIME PRAMOD Administration Ondansetron HCl 4 mg 11/29/20 21:17 Ondansetron Hcl 4 Mg/2 Ml Vial IVPUSH Q8H PRN Nausea and Vomiting Pharmacy Consult 1 each 11/29/20 21:17 Consult Rx Vancomycin Dosing MISCELLANE DAILY PRN Consult order Sodium Chloride 3 ml 11/30/20 00:00 12/05/20 09:47 0.9 % Sodium Chloride Flush 3 Ml Syringe IVFLUSH 3 ml QSHIFT PRAMOD Administration Timolol Maleate 1 drop 11/29/20 21:17 12/05/20 09:56 Timolol Maleate 0.5 % Oph Spring 5 Ml Drbtl EYE-BOTH 1 drop BID PRAMOD Administration Vitamin D 25 mcg 11/30/20 09:00 12/05/20 09:47 Cholecalciferol (Vitamin D3) 25 Mcg Tablet PO 25 mcg DAILY PRAMOD Administration Time Spent With Patient Time: Total time spent is greater than 50% in coordination of care (as documented) at patient's floor/unit and/or counseling patient: Time with patient: 15 - 24 minutes Procedures Date of Service Date of Service: 12/05/20 Quality Stroke Does the patient have a stroke diagnosis?: No VTE Prior VTE?: No VTE Risk Level:: Medical - moderate - high VTE Device Contraindication: Treatment Not Indicated VTE Drug Contraindication: N/A - Med Ordered
[2020-12-05 11:37] LABS: Glucose, Whole Blood 136 mg/dL (60-115)
--- NOTE | 2020-12-05 12:15 | P.DS_ITS ---
DS: Providers Provider Date of Service: 12/05/20 Date of admission: 11/29/20 20:59 Primary care physician: Unknown Physician Consults: 11/29/20 21:17 Consult to General Surgery Routine Consulting Provider: Aditi Tolentino Reason for consultation: diabetic foot ulcer, likely osteo Has provider been notified: No Consult to Infectious Diseases Routine Consulting Provider: Carmencita Augustine Reason for consultation: diabetic foot wound, likely osteo Has provider been notified: No 12/01/20 10:38 Consult to Vascular Surgery Routine Consulting Provider: Juan Oscar Reason for consultation: OM RLE, PAD DS: Diagnosis Discharge Diagnosis (1) PAD (peripheral artery disease): Status: Acute DS: Medications Discharge Medications Home Medications: Home Medications Medication Instructions Recorded Confirmed cholecalciferol (vitamin D3) 25 25 mcg PO DAILY 04/14/20 11/29/20 mcg (1,000 unit) capsule timolol 0.25 % eye drops 1 drp OPHTHALMIC-LEFT DAILY 04/14/20 11/29/20 lisinopril 40 mg tablet 40 mg PO DAILY 08/21/20 11/29/20 timolol maleate 0.5 % eye drops 1 drp OPHTHALMIC (EYE) BID 08/21/20 11/29/20 Previous Rx's Medication Instructions Recorded metoprolol succinate 100 mg 100 mg PO DAILY #90 tab 09/08/20 tablet,extended release 24 hr amiodarone 200 mg tablet 200 mg PO DAILY 90 Days #90 tab 10/01/20 clopidogrel 75 mg tablet 75 mg PO DAILY 90 Days #90 tab 10/01/20 apixaban 5 mg tablet (Eliquis) 5 mg PO BID 90 Days #180 tab 10/03/20 metformin 500 mg tablet 500 mg PO BID 90 Days #180 tab 10/03/20 mirtazapine 7.5 mg tablet 7.5 mg PO BEDTIME #20 tab 11/10/20 atorvastatin 10 mg tablet 10 mg PO BEDTIME #90 tab 11/11/20 amlodipine 10 mg tablet 10 mg PO DAILY 90 Days #90 tab 12/03/20 piperacillin-tazobactam 3.375 3.375 g IV Q6H #1200 ml 12/05/20 gram/50 mL dextrose(iso-os) IV piggyback (Zosyn) vancomycin 1,000 mg intravenous 1,000 mg IV Q24H #10 ea 12/05/20 injection DS: Summary Hospital Course Hospital Course: Patient was admitted for diabetic foot ulcer/osteomyelitis with cellulitis in the setting of peripheral vascular disease. He was given vancomycin Zosyn, bedside debridement was done, cultures grew MRSA and Pseudomonas. Arterial ultrasound showed significant stenosis, he underwent angioplasty with right common iliac stent placed. He was seen by infectious disease recommended 6 weeks of IV vancomycin Zosyn, PICC line was placed and patient will complete antibiotics at assisted facility. Time Spent with Patient Time attestation: Total time spent providing and/or coordinating discharge s ervices: Discharge coordination time: Greater than 30 minutes Quality: Stroke Does the patient have a stroke diagnosis?: No Physical Exam Vital Signs: Vital Signs: Last Vital Signs Temp 98.3 F 12/05/20 11:28 Pulse 52 12/05/20 11:28 Resp 16 12/05/20 11:28 BP 152/70 H 12/05/20 11:28 Pulse Ox 98 12/05/20 11:28 Body Mass Index 25.8 General: AO X 3, no acute distress Resp:? CTA bilateral CVS: S1,S2,RRR GI: soft, non tender, non distended Neuro:? motor grossly intact Psych: appropriate affect ?amputation site (Nonhealing midportion) and wounds noted (Right 3rd toe ) DS: Data Data Completed and Pending Completed studies during hospitalization [Text1]: Procedures Detachment at Right 1st Toe, Complete, Open Approach (07/24/20) Dilation of Right Anterior Tibial Artery, Percutaneous Approach (07/24/20) Drainage of Right Foot, Open Approach (07/24/20) Excision of Right Foot Subcutaneous Tissue and Fascia, Open Approach (07/24/20) Labs on day of discharge: Laboratory Results - last 24 hr 12/04/20 12/04/20 12/04/20 16:04 20:23 21:14 WBC RBC Hgb Hct MCV MCH MCHC RDW Plt Count MPV Absolute Nucleated RBC Nucleated RBC % (auto) Sodium Potassium Chloride Carbon Dioxide Anion Gap BUN Creatinine Estim Creat Clear Calc Estimated GFR POC Glucose 146 H 138 H Fasting Glucose Calcium Vancomycin Trough 20.4 H 12/05/20 12/05/20 12/05/20 05:50 05:50 07:38 WBC 11.5 H RBC 4.02 L Hgb 11.9 L Hct 36.6 L MCV 91.0 MCH 29.6 MCHC 32.5 RDW 15.9 Plt Count 260 MPV 11.3 Absolute Nucleated RBC 0.000 Nucleated RBC % (auto) 0.0 Sodium 141 Potassium 4.2 Chloride 105 Carbon Dioxide 27 Anion Gap 13 BUN 37 H Creatinine 1.33 Estim Creat Clear Calc 46.5 Estimated GFR 52 POC Glucose 95 Fasting Glucose 97 Calcium 9.1 Vancomycin Trough 12/05/20 11:25 WBC RBC Hgb Hct MCV MCH MCHC RDW Plt Count MPV Absolute Nucleated RBC Nucleated RBC % (auto) Sodium Potassium Chloride Carbon Dioxide Anion Gap BUN Creatinine Estim Creat Clear Calc Estimated GFR POC Glucose 136 H Fasting Glucose Calcium Vancomycin Trough Discharge Plan Discharge Patient Disposition: Xfer SNF Discharge Diagnosis: [facility] - 1 Week Physician,Unknown [Primary Care Provider] - 1 Week Discharge Medications: New Zosyn in dextrose (iso-osm) 3.375 gram/50 mL piggyback 3.375 g IV Q6H Qty: 1200 RF: 0 vancomycin 1,000 mg recon soln 1,000 mg IV Q24H Qty: 10 RF: 0 Continued metoprolol succinate 100 mg tablet extended release 24 hr 100 mg PO DAILY Qty: 90 RF: 1 amiodarone 200 mg tablet 200 mg PO DAILY 90 Days Qty: 90 RF: 1 clopidogrel 75 mg tablet 75 mg PO DAILY 90 Days Qty: 90 RF: 1 metformin 500 mg tablet 500 mg PO BID 90 Days Qty: 180 RF: 1 Eliquis 5 mg tablet 5 mg PO BID 90 Days Qty: 180 RF: 1 mirtazapine 7.5 mg tablet 7.5 mg PO BEDTIME Qty: 20 RF: 0 atorvastatin 10 mg tablet 10 mg PO BEDTIME Qty: 90 RF: 0 amlodipine 10 mg tablet 10 mg PO DAILY 90 Days Qty: 90 RF: 3 timolol 0.25 % drops 1 drp ophthalmic-Left DAILY RF: 0 cholecalciferol (vitamin D3) 25 mcg (1,000 unit) capsule 25 mcg PO DAILY RF: 0 timolol maleate 0.5 % drops 1 drp ophthalmic (eye) BID RF: 0 lisinopril 40 mg tablet 40 mg PO DAILY RF: 0 Discontinued minocycline 100 mg capsule 100 mg PO BID 30 Days Qty: 60 RF: 1 amoxicillin-pot clavulanate 875-125 mg tablet 1 tab PO BID RF: 0 Discharge Orders: Discharge Order (Routine); Ordered 12/05/20 Ordered By: Jimbo Smallwood Diet: advance to usual diet Activity on Discharge: As tolerated Stand Alone Forms: Patient Portal Discharge page Activity Restrictions/Additional Instructions: Skin glue was used in your groin Do not lift anything heavier than a gallon of milk for [address] Oscar in follow-up in approximately 2 weeks time. you should already have an appointment if not please call my office at [phone] If you notice excessive bleeding from the groin please immediately call my office or return to the emergency room. Care Plan Goals: reocvery Health Concerns: OM Plan of Treatment: 6 weeks iv vanco and zosyn (end 01/10/21) weekly cbc, bmp, vanc trough while on antibiotics Assessment: see above
[2020-12-05 13:32] LABS: COVID-19 Test Negative (Negative); IDNOW Serial# 9DD0AD1C
--- NOTE | 2020-12-05 16:03 | MHC.CM.PN ---
dc plan is to [facility] tomorrow , wednesday 12/06 p auth is obtained and then for patient to transfer back to [facility] when an appropriate bed becomes available sometime next week. ref. has been made to [facility]. this is due to the difficulty of not being able to find an acceptable unvaccinated bed in our area. care [facility] offered a bed but the patients refused and opted for the [place] [facility] plan. pt's also requested to have case management check once more tuesday a.m. for an approp. bed in the [facility] for patient, if this is not fruitful then she is sticking c the [place] [facility] plan. contact patient's c all dc planning , updates [phone]. md and rn are aware of this plan. cm to cont . to follow.
[2020-12-05 16:18] LABS: Glucose, Whole Blood 130 mg/dL (60-115)
--- NOTE | 2020-12-05 16:35 | HO.PM.IMPN ---
Subjective Subjective Date of Service: 12/05/20 Interval History: no complaints Constitutional Constitutional: Reports no additional constitutional complaints Eyes Eyes: Reports no additional eye complaints Physical Exam Vital Signs: Vital Signs: Last Vital Signs Temp 98.0 F 12/05/20 15:05 Pulse 51 12/05/20 15:05 Resp 20 12/05/20 15:05 BP 136/64 12/05/20 15:05 Pulse Ox 99 12/05/20 15:05 Body Mass Index 25.8 General: AO X 3, no acute distress Resp:? CTA bilateral CVS: S1,S2,RRR GI: soft, non tender, non distended Neuro:? motor grossly intact Psych: appropriate affect ?amputation site (Nonhealing midportion) and wounds noted (Right 3rd toe ) Objective Data Current Medications Generic Name Dose Route Start Last Admin Trade Name Freq PRN Reason Stop Dose Admin Acetaminophen 650 mg 11/29/20 21:17 Acetaminophen 325 Mg Tablet PO Q6H PRN Pain, Mild (Pain Scale 1-3) Amiodarone HCl 200 mg 11/30/20 09:00 12/05/20 09:58 Amiodarone Hcl 200 Mg Tablet PO 200 mg DAILY PRAMOD Administration Amlodipine Besylate 10 mg 11/30/20 09:00 12/05/20 09:49 Amlodipine Besylate 10 Mg Tablet PO 10 mg DAILY PRAMOD Administration Protocol Apixaban 5 mg 11/29/20 21:17 12/05/20 09:47 Apixaban 5 Mg Tablet PO 5 mg BID PRAMOD Administration Atorvastatin Calcium 10 mg 11/29/20 21:17 12/04/20 21:53 Atorvastatin Calcium 10 Mg Tablet PO 10 mg BEDTIME PRAMOD Administration Clopidogrel Bisulfate 75 mg 11/30/20 09:00 12/05/20 09:47 Clopidogrel Bisulfate 75 Mg Tablet PO 75 mg DAILY PRAMOD Administration Dextrose 25 gm 11/29/20 21:17 Dextrose 50 % 25 Gm/50 Ml Vial IVPUSH Q15M PRN per Hypoglycemia Standing Ord. Protocol Docusate Sodium 100 mg 11/29/20 21:17 Docusate Sodium 100 Mg Capsule PO DAILY PRN Constipation Furosemide 40 mg 11/30/20 09:00 12/05/20 09:50 Furosemide 40 Mg/4 Ml Vial IVPUSH 40 mg DAILY PRAMOD Administration Protocol Glucose 15 gm 11/29/20 21:17 Glucose Gel 15 Gm Gel..Gram. PO Q15M PRN per Hypoglycemia Standing Ord. Protocol Piperacillin Sod/Tazobactam 50 mls @ 100 mls/hr 12/04/20 12:00 12/05/20 12:11 Sod 3.375 gm/ Sodium Chloride IV Infused Q6H PRAMOD Infusion Vancomycin HCl 1,000 mg/ 270 mls @ 110 mls/hr 12/05/20 22:00 Sodium Chloride IV Q24H PRAMOD Insulin Human Lispro 0 unit 11/29/20 21:17 12/05/20 16:32 Insulin Lispro 100 Unit/Ml 3 Ml Vial SUBCUT Not Given QIDACHS [facility] Protocol Lisinopril 40 mg 11/30/20 09:00 12/05/20 09:49 Lisinopril 40 Mg Tablet PO 40 mg DAILY PRAMOD Administration Protocol Metoprolol Succinate 100 mg 11/30/20 09:00 12/05/20 09:49 Metoprolol Succinate Er 100 Mg Tab.Er.24h PO Not Given DAILY [facility] Protocol Mirtazapine 7.5 mg 11/29/20 21:17 12/04/20 21:53 Mirtazapine 7.5 Mg Tablet PO 7.5 mg BEDTIME [facility] Administration Ondansetron HCl 4 mg 11/29/20 21:17 Ondansetron Hcl 4 Mg/2 Ml Vial IVPUSH Q8H PRN Nausea and Vomiting Pharmacy Consult 1 each 11/29/20 21:17 Consult Rx Vancomycin Dosing MISCELLANE DAILY PRN Consult order Sodium Chloride 3 ml 11/30/20 00:00 12/05/20 09:47 0.9 % Sodium Chloride Flush 3 Ml Syringe IVFLUSH 3 ml QSHIFT [facility] Administration Timolol Maleate 1 drop 11/29/20 21:17 12/05/20 09:56 Timolol Maleate 0.5 % Oph Spring 5 Ml Drbtl EYE-BOTH 1 drop BID [facility] Administration Vitamin D 25 mcg 11/30/20 09:00 12/05/20 09:47 Cholecalciferol (Vitamin D3) 25 Mcg Tablet PO 25 mcg DAILY PRAMOD Administration Labs CBC & Chem 7: 12/05/20 05:50 12/05/20 05:50 Labs: Laboratory Results - last 24 hr 12/04/20 12/04/20 12/05/20 20:23 21:14 05:50 MCV 91.0 MCH 29.6 MCHC 32.5 RDW 15.9 Plt Count 260 MPV 11.3 Absolute Nucleated RBC 0.000 Nucleated RBC % (auto) 0.0 Anion Gap Estim Creat Clear Calc Estimated GFR POC Glucose 138 H Fasting Glucose Calcium Vancomycin Trough 20.4 H COVID-19 ([facility]) COVID-19 Clin Com 12/05/20 12/05/20 12/05/20 05:50 07:38 11:25 MCV MCH MCHC RDW Plt Count MPV Absolute Nucleated RBC Nucleated RBC % (auto) Anion Gap 13 Estim Creat Clear Calc 46.5 Estimated GFR 52 POC Glucose 95 136 H Fasting Glucose 97 Calcium 9.1 Vancomycin Trough COVID-19 ([facility]) COVID-19 Clin Com 12/05/20 12/05/20 13:00 16:12 MCV MCH MCHC RDW Plt Count MPV Absolute Nucleated RBC Nucleated RBC % (auto) Anion Gap Estim Creat Clear Calc Estimated GFR POC Glucose 130 H Fasting Glucose Calcium Vancomycin Trough COVID-19 ([facility]) Negative COVID-19 Clin Com See Note Microbiology Microbiology Results: Microbiology 11/29/20 19:34 Blood Culture - Final Blood - Venous No growth after 5 days. 11/29/20 19:15 Blood Culture - Final Blood - Venous No growth after 5 days. Assessment and Plan (1) Osteomyelitis of toe of right foot: Status: Acute (2) Diabetic foot ulcer: Status: Acute (3) Cellulitis and abscess of foot: Status: Acute Assessment and Plan: 75-year-old male with past medical history of 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, diabetes, diabetic neuropathy, presents to the hospital with right foot swelling, erythema, as well as 3rd right toe ulcer diabetic foot ulcer/ OM RLE cellulitis open wound of the 3rd right toe elevated ESR and CRP MRI showed evidence of erosion of 3rd distal phalanx from osteomyelitis Wound culture growing MRSA and pseudomonas and GBS Continue IV antibiotics - vanc, zosyn, will likely need 6 weeks of same (end 01/10) s/p debridement done at the bedside PAD Recent arterial ultrasound for lower extremities showing significant stenosis s/p angio 12/04 - stent placed right common iliac AFib continue metoprolol and apixaban as well as amiodarone hypertension stable continue amlodipine DVT prophylaxis eliquis awaiting [facility] bed Quality Stroke Does the patient have a stroke diagnosis?: No VTE Prior VTE?: No VTE Risk Level:: Medical - moderate - high VTE Device Contraindication: Treatment Not Indicated VTE Drug Contraindication: N/A - Med Ordered
[2020-12-05] MEDS: Mirtazapine 7.5 MG TABLET PO (20:32)
[2020-12-05] MEDS: Atorvastatin Calcium 10 MG TABLET PO (20:32)
[2020-12-05 20:38] LABS: Glucose, Whole Blood 126 mg/dL (60-115)
[2020-12-05] MEDS: vancomycin HCL 1,000 MG in 0.9 % Sodium Chloride 250 ML 110 MG IV (22:21)
[2020-12-06] VITALS: BP 155/64; PULSE 59; RESP 16; TEMP 36.6; O2SAT 97
[2020-12-06 04:00] VITALS: BP 150/71; PULSE 58; RESP 16; TEMP 36.6; O2SAT 99
[2020-12-06] MEDS: Piperacillin Sodium/Tazobactam 3.375 GM in 0.9 % Sodium Chloride 50 ML IV ×3 (05:46→19:41)
[2020-12-06 07:44] LABS: Glucose, Whole Blood 115 mg/dL (60-115)
[2020-12-06 08:00] VITALS: BP 139/67; PULSE 68; RESP 17; TEMP 36.4; O2SAT 97
[2020-12-06] MEDS: 0.9 % Sodium Chloride Flush 3 ML SYRINGE IVFLUSH ×3 (08:43→21:40)
[2020-12-06] MEDS: Furosemide 40 MG/4 ML VIAL IVPUSH (08:44)
[2020-12-06] MEDS: Cholecalciferol (Vitamin D3) 25 MCG TABLET PO (08:44)
[2020-12-06] MEDS: Metoprolol Succinate ER 100 MG TAB.ER.24H PO (08:44)
[2020-12-06] MEDS: Apixaban 5 MG TABLET PO ×2 (08:44→21:40)
[2020-12-06] MEDS: amLODIPine Besylate 10 MG TABLET PO (08:44)
[2020-12-06] MEDS: Amiodarone HCL 200 MG TABLET PO (08:44)
[2020-12-06] MEDS: Clopidogrel Bisulfate 75 MG TABLET PO (08:44)
[2020-12-06] MEDS: lisinopriL 40 MG TABLET PO (08:44)
[2020-12-06] MEDS: timoloL maleate 0.5 % Oph Sol 5 ML DRBTL 1 DROP EYE-BOTH (08:45)
--- NOTE | 2020-12-06 08:52 | MHC.CM.PN ---
[facility] IS NOT AVAILABLE TO GIVE AUTHORIZATION FOR BED OFFER ON WEEKENDS. PATIENT TO REMAIN THROUGH WEEKEND.
--- NOTE | 2020-12-06 10:00 | P.PNIM_ITS ---
Subjective Subjective Date of Service: 12/06/20 Interval History: no complaints Cardiovascular Cardiovascular: Reports no additional cardiovascular complaints Respiratory Respiratory: Reports no additional respiratory complaints Physical Exam Vital Signs: Vital Signs: Last Vital Signs Temp 97.5 F 12/06/20 08:00 Pulse 68 12/06/20 08:00 Resp 17 12/06/20 08:00 BP 139/67 12/06/20 08:00 Pulse Ox 97 12/06/20 08:00 Body Mass Index 25.8 General: AO X 3, no acute distress Resp:? CTA bilateral CVS: S1,S2,RRR GI: soft, non tender, non distended Neuro:? motor grossly intact Psych: appropriate affect ?amputation site (Nonhealing midportion) and wounds noted (Right 3rd toe ) Objective Data Current Medications Generic Name Dose Route Start Last Admin Trade Name Freq PRN Reason Stop Dose Admin Acetaminophen 650 mg 11/29/20 21:17 Acetaminophen 325 Mg Tablet PO Q6H PRN Pain, Mild (Pain Scale 1-3) Amiodarone HCl 200 mg 11/30/20 09:00 12/06/20 08:44 Amiodarone Hcl 200 Mg Tablet PO 200 mg DAILY PR[facility] Administration Amlodipine Besylate 10 mg 11/30/20 09:00 12/06/20 08:44 Amlodipine Besylate 10 Mg Tablet PO 10 mg DAILY PRAMOD Administration Protocol Apixaban 5 mg 11/29/20 21:17 12/06/20 08:44 Apixaban 5 Mg Tablet PO 5 mg BID PRAMOD Administration Atorvastatin Calcium 10 mg 11/29/20 21:17 12/05/20 20:32 Atorvastatin Calcium 10 Mg Tablet PO 10 mg BEDTIME PR[facility]OD Administration Clopidogrel Bisulfate 75 mg 11/30/20 09:00 12/06/20 08:44 Clopidogrel Bisulfate 75 Mg Tablet PO 75 mg DAILY PR[facility]OD Administration Dextrose 25 gm 11/29/20 21:17 Dextrose 50 % 25 Gm/50 Ml Vial IVPUSH Q15M PRN per Hypoglycemia Standing Ord. Protocol Docusate Sodium 100 mg 11/29/20 21:17 Docusate Sodium 100 Mg Capsule PO DAILY PRN Constipation Furosemide 40 mg 11/30/20 09:00 12/06/20 08:44 Furosemide 40 Mg/4 Ml Vial IVPUSH 40 mg DAILY PRAMOD Administration Protocol Glucose 15 gm 11/29/20 21:17 Glucose Gel 15 Gm Gel..Gram. PO Q15M PRN per Hypoglycemia Standing Ord. Protocol Piperacillin Sod/Tazobactam 50 mls @ 100 mls/hr 12/04/20 12:00 12/06/20 06:25 Sod 3.375 gm/ Sodium Chloride IV Infused Q6H PR[facility] Infusion Vancomycin HCl 1,000 mg/ 270 mls @ 110 mls/hr 12/05/20 22:00 12/06/20 02:11 Sodium Chloride IV Infused Q24H PRAMOD Infusion Insulin Human Lispro 0 unit 11/29/20 21:17 12/06/20 08:07 Insulin Lispro 100 Unit/Ml 3 Ml Vial SUBCUT Not Given QIDACHS [facility] Protocol Lisinopril 40 mg 11/30/20 09:00 12/06/20 08:44 Lisinopril 40 Mg Tablet PO 40 mg DAILY PRAMOD Administration Protocol Metoprolol Succinate 100 mg 11/30/20 09:00 12/06/20 08:44 Metoprolol Succinate Er 100 Mg Tab.Er.24h PO 100 mg DAILY PRAMOD Administration Protocol Mirtazapine 7.5 mg 11/29/20 21:17 12/05/20 20:32 Mirtazapine 7.5 Mg Tablet PO 7.5 mg BEDTIME PR[facility]OD Administration Ondansetron HCl 4 mg 11/29/20 21:17 Ondansetron Hcl 4 Mg/2 Ml Vial IVPUSH Q8H PRN Nausea and Vomiting Pharmacy Consult 1 each 11/29/20 21:17 Consult Rx Vancomycin Dosing MISCELLANE DAILY PRN Consult order Sodium Chloride 3 ml 11/30/20 00:00 12/06/20 08:43 0.9 % Sodium Chloride Flush 3 Ml Syringe IVFLUSH 3 ml QSHIFT PR[facility]OD Administration Timolol Maleate 1 drop 11/29/20 21:17 12/06/20 08:45 Timolol Maleate 0.5 % Oph Spring 5 Ml Drbtl EYE-BOTH 1 drop BID PRAMOD Administration Vitamin D 25 mcg 11/30/20 09:00 12/06/20 08:44 Cholecalciferol (Vitamin D3) 25 Mcg Tablet PO 25 mcg DAILY PRAMOD Administration Labs CBC & Chem 7: 12/05/20 05:50 12/05/20 05:50 Labs: Laboratory Results - last 24 hr 12/05/20 12/05/20 12/05/20 11:25 13:00 16:12 POC Glucose 136 H 130 H COVID-19 ([facility]) Negative COVID-19 Clin Com See Note 12/05/20 12/06/20 20:34 07:39 POC Glucose 126 H 115 COVID-19 ([facility]) COVID-19 Clin Com Assessment and Plan (1) Osteomyelitis of toe of right foot: Status: Acute (2) Diabetic foot ulcer: Status: Acute (3) Cellulitis and abscess of foot: Status: Acute Assessment and Plan: 75-year-old male with past medical history of 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, diabetes, diabetic neuropathy, presents to the hospital with right foot swelling, erythema, as well as 3rd right toe ulcer diabetic foot ulcer/ OM RLE cellulitis open wound of the 3rd right toe elevated ESR and CRP MRI showed evidence of erosion of 3rd distal phalanx from osteomyelitis Wound culture growing MRSA and pseudomonas and GBS Continue IV antibiotics - vanc, zosyn, 6 weeks of same (end 01/10) s/p debridement done at the bedside awaiting bed at SNF PAD Recent arterial ultrasound for lower extremities showing significant stenosis s/p angio 12/04 - stent placed right common iliac AFib continue metoprolol and apixaban as well as amiodarone hypertension stable continue amlodipine DVT prophylaxis eliquis awaiting snf bed Quality Stroke Does the patient have a stroke diagnosis?: No VTE Prior VTE?: No VTE Risk Level:: Medical - moderate - high VTE Device Contraindication: Treatment Not Indicated VTE Drug Contraindication: N/A - Med Ordered
[2020-12-06 11:31] LABS: Glucose, Whole Blood 96 mg/dL (60-115)
[2020-12-06 12:00] VITALS: BP 128/62; PULSE 51; RESP 16; TEMP 36.2; O2SAT 100
[2020-12-06 15:53] VITALS: BP 146/67; PULSE 50; RESP 14; TEMP 36.2; O2SAT 100
[2020-12-06 16:49] LABS: Glucose, Whole Blood 78 mg/dL (60-115)
[2020-12-06 19:44] VITALS: BP 131/84; PULSE 58; RESP 14; TEMP 36.3; O2SAT 98
[2020-12-06 20:41] LABS: Glucose, Whole Blood 133 mg/dL (60-115)
[2020-12-06] MEDS: Atorvastatin Calcium 10 MG TABLET PO (21:40)
[2020-12-06] MEDS: vancomycin HCL 1,000 MG in 0.9 % Sodium Chloride 250 ML 110 MG IV (21:40)
[2020-12-06] MEDS: Mirtazapine 7.5 MG TABLET PO (21:40)
[2020-12-07] VITALS (7 sets, daily range): BP systolic 125–164; BP diastolic 59–79; PULSE 50–60; RESP 16–18; TEMP 36.2–37.2; O2SAT 96–99
[2020-12-07] MEDS: Piperacillin Sodium/Tazobactam 3.375 GM in 0.9 % Sodium Chloride 50 ML IV ×4 (00:56→17:14)
[2020-12-07 07:42] LABS: Glucose, Whole Blood 128 mg/dL (60-115)
[2020-12-07] MEDS: Cholecalciferol (Vitamin D3) 25 MCG TABLET PO (08:44)
[2020-12-07] MEDS: amLODIPine Besylate 10 MG TABLET PO (08:44)
[2020-12-07] MEDS: Metoprolol Succinate ER 100 MG TAB.ER.24H PO (08:44)
[2020-12-07] MEDS: Amiodarone HCL 200 MG TABLET PO (08:44)
[2020-12-07] MEDS: Clopidogrel Bisulfate 75 MG TABLET PO (08:44)
[2020-12-07] MEDS: 0.9 % Sodium Chloride Flush 3 ML SYRINGE IVFLUSH (08:45)
[2020-12-07] MEDS: lisinopriL 40 MG TABLET PO (08:45)
[2020-12-07] MEDS: Apixaban 5 MG TABLET PO ×2 (08:45→20:49)
[2020-12-07] MEDS: Furosemide 40 MG/4 ML VIAL IVPUSH (08:45)
[2020-12-07] MEDS: timoloL maleate 0.5 % Oph Sol 5 ML DRBTL 1 DROP EYE-BOTH (08:46)
--- NOTE | 2020-12-07 08:57 | HO.PM.IMPN ---
Subjective Subjective Date of Service: 12/07/20 Interval History: no complaints Cardiovascular Cardiovascular: Reports no additional cardiovascular complaints Respiratory Respiratory: Reports no additional respiratory complaints Physical Exam Vital Signs: Vital Signs: Last Vital Signs Temp 97.7 F 12/07/20 08:00 Pulse 58 12/07/20 08:00 Resp 18 12/07/20 08:00 BP 141/59 H 12/07/20 08:00 Pulse Ox 98 12/07/20 08:00 Body Mass Index 25.8 General: AO X 3, no acute distress Resp:? CTA bilateral CVS: S1,S2,RRR GI: soft, non tender, non distended Neuro:? motor grossly intact Psych: appropriate affect ?amputation site (Nonhealing midportion) and wounds noted (Right 3rd toe ) Objective Data Current Medications Generic Name Dose Route Start Last Admin Trade Name Freq PRN Reason Stop Dose Admin Acetaminophen 650 mg 11/29/20 21:17 Acetaminophen 325 Mg Tablet PO Q6H PRN Pain, Mild (Pain Scale 1-3) Amiodarone HCl 200 mg 11/30/20 09:00 12/07/20 08:44 Amiodarone Hcl 200 Mg Tablet PO 200 mg DAILY PRAMOD Administration Amlodipine Besylate 10 mg 11/30/20 09:00 12/07/20 08:44 Amlodipine Besylate 10 Mg Tablet PO 10 mg DAILY PRAMOD Administration Protocol Apixaban 5 mg 11/29/20 21:17 12/07/20 08:45 Apixaban 5 Mg Tablet PO 5 mg BID PRAMOD Administration Atorvastatin Calcium 10 mg 11/29/20 21:17 12/06/20 21:40 Atorvastatin Calcium 10 Mg Tablet PO 10 mg BEDTIME PRAMOD Administration Clopidogrel Bisulfate 75 mg 11/30/20 09:00 12/07/20 08:44 Clopidogrel Bisulfate 75 Mg Tablet PO 75 mg DAILY PRAMOD Administration Dextrose 25 gm 11/29/20 21:17 Dextrose 50 % 25 Gm/50 Ml Vial IVPUSH Q15M PRN per Hypoglycemia Standing Ord. Protocol Docusate Sodium 100 mg 11/29/20 21:17 Docusate Sodium 100 Mg Capsule PO DAILY PRN Constipation Furosemide 40 mg 11/30/20 09:00 12/07/20 08:45 Furosemide 40 Mg/4 Ml Vial IVPUSH 40 mg DAILY PRAMOD Administration Protocol Glucose 15 gm 11/29/20 21:17 Glucose Gel 15 Gm Gel..Gram. PO Q15M PRN per Hypoglycemia Standing Ord. Protocol Piperacillin Sod/Tazobactam 50 mls @ 100 mls/hr 12/04/20 12:00 12/07/20 08:06 Sod 3.375 gm/ Sodium Chloride IV Infused Q6H PRAMOD Infusion Vancomycin HCl 1,000 mg/ 270 mls @ 110 mls/hr 12/05/20 22:00 12/07/20 00:24 Sodium Chloride IV Infused Q24H PRAMOD Infusion Insulin Human Lispro 0 unit 11/29/20 21:17 12/07/20 08:06 Insulin Lispro 100 Unit/Ml 3 Ml Vial SUBCUT Not Given QIDACHS [facility] Protocol Lisinopril 40 mg 11/30/20 09:00 12/07/20 08:45 Lisinopril 40 Mg Tablet PO 40 mg DAILY PRAMOD Administration Protocol Metoprolol Succinate 100 mg 11/30/20 09:00 12/07/20 08:44 Metoprolol Succinate Er 100 Mg Tab.Er.24h PO 100 mg DAILY PRAMOD Administration Protocol Mirtazapine 7.5 mg 11/29/20 21:17 12/06/20 21:40 Mirtazapine 7.5 Mg Tablet PO 7.5 mg BEDTIME PR[facility]OD Administration Ondansetron HCl 4 mg 11/29/20 21:17 Ondansetron Hcl 4 Mg/2 Ml Vial IVPUSH Q8H PRN Nausea and Vomiting Sodium Chloride 3 ml 11/30/20 00:00 12/07/20 08:45 0.9 % Sodium Chloride Flush 3 Ml Syringe IVFLUSH 3 ml QSHIFT PRAMOD Administration Timolol Maleate 1 drop 11/29/20 21:17 12/07/20 08:46 Timolol Maleate 0.5 % Oph Spring 5 Ml Drbtl EYE-BOTH 1 drop BID PRAMOD Administration Vitamin D 25 mcg 11/30/20 09:00 12/07/20 08:44 Cholecalciferol (Vitamin D3) 25 Mcg Tablet PO 25 mcg DAILY PRAMOD Administration Labs CBC & Chem 7: 12/05/20 05:50 12/05/20 05:50 Labs: Laboratory Results - last 24 hr 12/06/20 12/06/20 12/06/20 11:11 16:40 20:36 POC Glucose 96 78 133 H 12/07/20 07:37 POC Glucose 128 H Assessment and Plan (1) Osteomyelitis of toe of right foot: Status: Acute (2) Diabetic foot ulcer: Status: Acute (3) Cellulitis and abscess of foot: Status: Acute Assessment and Plan: 75-year-old male with past medical history of 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, diabetes, diabetic neuropathy, presents to the hospital with right foot swelling, erythema, as well as 3rd right toe ulcer diabetic foot ulcer/ OM RLE cellulitis open wound of the 3rd right toe elevated ESR and CRP MRI showed evidence of erosion of 3rd distal phalanx from osteomyelitis Wound culture growing MRSA and pseudomonas and GBS Continue IV antibiotics - vanc, zosyn, 6 weeks of same (end 01/10) s/p debridement done at the bedside awaiting auth/bed at SNF PAD Recent arterial ultrasound for lower extremities showing significant stenosis s/p angio 12/04 - stent placed right common iliac AFib continue metoprolol and apixaban as well as amiodarone hypertension stable continue amlodipine DVT prophylaxis eliquis awaiting snf bed Quality Stroke Does the patient have a stroke diagnosis?: No VTE Prior VTE?: No VTE Risk Level:: Medical - moderate - high VTE Device Contraindication: Treatment Not Indicated VTE Drug Contraindication: N/A - Med Ordered
[2020-12-07 11:49] LABS: Glucose, Whole Blood 123 mg/dL (60-115)
[2020-12-07 16:06] LABS: Glucose, Whole Blood 126 mg/dL (60-115)
[2020-12-07] MEDS: Acetaminophen 325 MG TABLET 650 MG PO (19:21)
[2020-12-07 20:31] LABS: Glucose, Whole Blood 125 mg/dL (60-115)
[2020-12-07] MEDS: Atorvastatin Calcium 10 MG TABLET PO (20:49)
[2020-12-07] MEDS: Mirtazapine 7.5 MG TABLET PO (20:50)
[2020-12-07 22:01] LABS: Vancomycin Trough 16.6 mcg/mL (10.0-20.0)
[2020-12-07] MEDS: vancomycin HCL 1,000 MG in 0.9 % Sodium Chloride 250 ML 110 MG IV (22:13)
[2020-12-08] MEDS: Piperacillin Sodium/Tazobactam 3.375 GM in 0.9 % Sodium Chloride 50 ML IV ×4 (00:06→17:49)
[2020-12-08 03:33] VITALS: BP 135/63; PULSE 50; RESP 18; TEMP 36.4; O2SAT 97
[2020-12-08 07:41] VITALS: BP 164/70; PULSE 49; RESP 17; TEMP 36.4; O2SAT 92
[2020-12-08 07:47] LABS: Glucose, Whole Blood 87 mg/dL (60-115)
[2020-12-08] MEDS: Clopidogrel Bisulfate 75 MG TABLET PO (09:46)
[2020-12-08] MEDS: Cholecalciferol (Vitamin D3) 25 MCG TABLET PO (09:46)
[2020-12-08] MEDS: Apixaban 5 MG TABLET PO (09:46)
[2020-12-08] MEDS: timoloL maleate 0.5 % Oph Sol 5 ML DRBTL 1 DROP EYE-BOTH (09:48)
[2020-12-08] MEDS: Furosemide 40 MG/4 ML VIAL IVPUSH (09:53)
[2020-12-08] MEDS: Amiodarone HCL 200 MG TABLET PO (09:53)
[2020-12-08 09:54] VITALS: BP 150/67
[2020-12-08] MEDS: lisinopriL 40 MG TABLET PO (09:54)
[2020-12-08] MEDS: amLODIPine Besylate 10 MG TABLET PO (09:54)
[2020-12-08 11:42] VITALS: BP 140/64; PULSE 48; RESP 18; TEMP 36.2; O2SAT 97
[2020-12-08 11:55] LABS: Creatinine Clr Calc Pharmacy 47.2; Estimated Glomerular Filt Rate 53
[2020-12-08 12:01] LABS: Glucose, Whole Blood 101 mg/dL (60-115)
--- NOTE | 2020-12-08 12:14 | MHC.CM.PN ---
PT AWAITING INSURANCE AUTH PRIOR TO STR TRANSFER, CM HAS CONTACTED [facility] D/T INSURANCE AND TRANSPORT SET, CM WILL NEED TO CALL BACK ONCE TIME IS ARRANGED. D/C PLAN: [facility] FOR TRANSPORT.
[2020-12-08 12:50] VITALS: BP 140/64; PULSE 48; O2SAT 97
[2020-12-08 15:41] VITALS: BP 145/65; PULSE 50; RESP 18; TEMP 37.4; O2SAT 99
[2020-12-08 16:28] LABS: Glucose, Whole Blood 127 mg/dL (60-115)
--- NOTE | 2020-12-08 20:12 | PC.NURSE ---
[facility] called this facility to report hour delay on 1730 pickup for transport to [facility]. 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 [facility] arrived to take pt to [facility] however pt does not qualify for ambulance level of transport. Pt does not have appropriate requirements for ambulance tranfer. Reported to oncoming RN that pt ,ay be transported via [facility] and would let us know if possible. Superviser contacted and will come to floor when available to assess
== END 2020-12-08 20:20 | disposition skilled nursing facility (03) | DRG 982 ==
LOC: HO.ED 20:22 → HO.EDOVER 21:33 → HO.S3 22:07
PROVIDERS: Physician Assistant; Student in an Organized Health Care Education/Training Program; Surgery Vascular Surgery; Admitting Provider Internal Medicine; Emergency Provider Emergency Medicine; Visit Provider Internal Medicine
PROC: 04H Lower Arteries, Insertion (ICD-10-PCS; principal; 2020-12-04 07:30)
DX: T87.43 Infection of amputation stump, right lower extremity (principal); L03.115 Cellulitis of right lower limb; L97.516 Non-pressure chronic ulcer of other part of right foot with bone involvement without evidence of necrosis; M86.9 Osteomyelitis, unspecified; I48.91 Unspecified atrial fibrillation; E11.69 Type 2 diabetes mellitus with other specified complication; E11.621 Type 2 diabetes mellitus with foot ulcer; I10 Essential (primary) hypertension; B95.62 Methicillin resistant Staphylococcus aureus infection as the cause of diseases classified elsewhere; B95.0 Streptococcus, group A, as the cause of diseases classified elsewhere; B96.5 Pseudomonas (aeruginosa) (mallei) (pseudomallei) as the cause of diseases classified elsewhere; E11.51 Type 2 diabetes mellitus with diabetic peripheral angiopathy without gangrene; I70.235 Atherosclerosis of native arteries of right leg with ulceration of other part of foot; E11.42 Type 2 diabetes mellitus with diabetic polyneuropathy; Z20.822 Contact with and (suspected) exposure to COVID-19; F17.210 Nicotine dependence, cigarettes, uncomplicated; Z71.6 Tobacco abuse counseling; Z79.02 Long term (current) use of antithrombotics/antiplatelets; Z79.899 Other long term (current) drug therapy
CPT/HCPCS: 36415; 36573; 37221; 71046; 73630; 73720; 76937; 80048; 80053; 80202; 82565; 82947; 83605; 83880; 85025; 85027; 85610; 85652; 85730; 86140; 87040; 87071; 87077; 87147; 87186; 87205; 87635; 96365; 96375; 97162; 99152; 99153; 99284; 99285; A9585; C1725; C1751; C1760; C1769; C1876; C1887; C1894; J1940; J2543; J2930; J3370; Q9967

== ENCOUNTER → 2021-01-20 11:48 | Outpatient (BNVA) | payer MEDICARE, SELFPAY | PROVIDERS: Visit Provider Surgery Vascular Surgery | DX: I73.9 Peripheral vascular disease, unspecified (principal) | CPT/HCPCS: 99212 ==

== ENCOUNTER 2021-01-27 09:08 | Outpatient (RCR) | payer MEDICARE, SELFPAY | END 2021-04-01 15:24 | disposition home or self-care (01) | LOC: HO.WCC 09:08 | PROVIDERS: PCP Internal Medicine; Visit Provider Physician Assistant | DX: E11.621 Type 2 diabetes mellitus with foot ulcer (principal); E11.51 Type 2 diabetes mellitus with diabetic peripheral angiopathy without gangrene; L97.529 Non-pressure chronic ulcer of other part of left foot with unspecified severity; T87.81 Dehiscence of amputation stump; E11.40 Type 2 diabetes mellitus with diabetic neuropathy, unspecified; I10 Essential (primary) hypertension; F17.210 Nicotine dependence, cigarettes, uncomplicated; Z72.89 Other problems related to lifestyle; Z89.421 Acquired absence of other right toe(s) | CPT/HCPCS: 11042; 11046; 97597; 99212; 99214 ==

== ENCOUNTER → 2021-02-10 11:21 | Outpatient (BNVA) | payer MEDICARE, SELFPAY | PROVIDERS: PCP Internal Medicine; Visit Provider Surgery Vascular Surgery | DX: M86.9 Osteomyelitis, unspecified (principal); I73.9 Peripheral vascular disease, unspecified | CPT/HCPCS: 99212 ==

== ENCOUNTER 2021-02-16 07:59 | Day surgery (SDC) | payer MEDICARE, SELFPAY ==
--- NOTE | 2021-02-13 12:28 | HO.ANESPROP2 ---
Documented by User: Sherly Bella NP 02/13/21 13:36 HPI - Anesthesia Eval Consult details Narrative: 75yo M for Right Toe Amputation right 3rd Eliquis for afib Plavix for PVD s/p R great toe amb 07/2020 with [facility]-LMA 4 (removed awake). Cardiac cleared at [facility] for 07/2020 surgery (had new onset afib with RVR) T/C with - pt has not f/u'd with cardiology. No chest pain or sob with very minimal activity. Reviewed case with Dr Alvarenga. OK for eval DOS. [facility] Active Problems Active Problems: All Active Problems (Updated 01/20/21 @ 12:27 by Juan Oscar MD) Osteomyelitis of toe of right foot (Acute) History of osteomyelitis (Acute) Diabetic foot ulcer (Acute) Cellulitis and abscess of foot (Acute) Open wound (Acute) Anxiety (Acute) Amputated toe of right foot (Acute) Hyponatremia (Acute) PAD (peripheral artery disease) (Acute) Type 2 diabetes mellitus with diabetic foot infection (Acute) Type 2 diabetes mellitus with peripheral artery disease (Acute) Left groin mass (Acute) Impacted cerumen of both ears (Acute) Colon cancer screening (Acute) Annual physical exam (Acute) Type 2 diabetes mellitus with hyperglycemia (Acute) Hypercholesterolemia (Acute) Asthma (Acute) Tobacco abuse (Acute) Hypertension (Acute) Coronary artery disease (Acute) Past Medical History Medical History Abscess of right foot Anxiety and depression Asthma Atrial fibrillation with rapid ventricular response Avascular necrosis of bone of hip Coronary artery disease Diabetic foot ulcer Diabetic nephropathy Diabetic neuropathy Diverticular disease Hypercholesterolemia Hypertension Open wound Osteomyelitis of toe Osteomyelitis of toe of right foot Preoperative cardiovascular examination Thrombocytopenia Tobacco abuse Tubular adenoma of colon Type 2 diabetes mellitus with hyperglycemia Vitamin D deficiency Family History Family History Father Diabetes Hypertension CVD (cardiovascular disease) Stroke Mother CVD (cardiovascular disease) Hypertension Cancer Sister No problems noted. Son Stroke Surgical History Surgical History Amputated toe of right foot Amputation finger History of cataract surgery History of surgery Social History Social History Household Members: Family Household Members Other:: 4 Housing: House Do you presently have visiting nurse or other home services: Yes Alcohol intake: never Patient Tobacco Use Status: Current everyday Tobacco user Tobacco use type: Cigarette Cigarettes Per Day: 7 Second Hand Smoke Exposure: No Use of substances other than those prescribed or required for medical reasons: No Are you DNR?: No Advance Directives: Yes Advance Directives on File: Yes Advance Directives Date on File: 07/24/20 Recently lost weight without trying: No Nutrition Risks: No Nutritional Risk service: No Current occupational status: retired Meds Allergies Allergy/AdvReac Type Severity Reaction Status Date / Time No Known Allergies Allergy Mild Verified 02/10/21 11:24 Home Medications Medication Instructions Recorded Confirmed Last Taken Type cholecalciferol (vitamin D3) 25 25 mcg PO DAILY 04/14/20 11/29/20 07/23/20 History mcg (1,000 unit) capsule timolol 0.25 % eye drops 1 drp OPHTHALMIC-LEFT DAILY 04/14/20 11/29/20 07/23/20 History lisinopril 40 mg tablet 40 mg PO DAILY 08/21/20 11/29/20 Unknown History timolol maleate 0.5 % eye drops 1 drp OPHTHALMIC (EYE) BID 08/21/20 11/29/20 Unknown History Exam Exam Date and Time: February 13, 2021 1228 Narrative Narrative: EKG 07/2020 Vent. Rate : 059 BPM ? ? Atrial Rate : 059 BPM ?? P-R Int : 162 ms? QRS Dur : 086 ms ? ? QT Int : 516 ms ? ? ? P-R-T Axes : 035 035 039 degrees ?? QTc Int : 510 ms ? Sinus bradycardia Prolonged QT Abnormal ECG When compared with ECG of 27-JUL-2020 10:31, QTc is slightly prolonged ECHO 07/2020 Conclusions: - The left ventricular systolic function is normal.? The visually estimated ejection fraction is between 60-65%. ? - The basal inferior segment is hypokinetic. ? - There is mild aortic valve regurgitation.? Assessment and Plan Assessment Anesthesia Assessment: Chart Reviewed Documented by User: Jenny Frias MD 02/16/21 08:53 [facility] Past Medical History Medical History Abscess of right foot Anxiety and depression Asthma Atrial fibrillation with rapid ventricular response Avascular necrosis of bone of hip Coronary artery disease Diabetic foot ulcer Diabetic nephropathy Diabetic neuropathy Diverticular disease Hypercholesterolemia Hypertension Open wound Osteomyelitis of toe Osteomyelitis of toe of right foot Preoperative cardiovascular examination Thrombocytopenia Tobacco abuse Tubular adenoma of colon Type 2 diabetes mellitus with hyperglycemia Vitamin D deficiency Family History Family History Father Diabetes Hypertension CVD (cardiovascular disease) Stroke Mother CVD (cardiovascular disease) Hypertension Cancer Sister No problems noted. Son Stroke Surgical History Surgical History Amputated toe of right foot Amputation finger History of cataract surgery History of surgery History of Problems with Anesthesia: No Social History Social History Household Members: Family Household Members Other:: 4 Housing: House Do you presently have visiting nurse or other home services: Yes Alcohol intake: never Patient Tobacco Use Status: Current everyday Tobacco user Tobacco use type: Cigarette Cigarettes Per Day: 7 Second Hand Smoke Exposure: No Use of substances other than those prescribed or required for medical reasons: No Are you DNR?: No Advance Directives: Yes Advance Directives on File: Yes Advance Directives Date on File: 07/24/20 Recently lost weight without trying: No Nutrition Risks: No Nutritional Risk service: No Current occupational status: retired Meds Allergies Allergy/AdvReac Type Severity Reaction Status Date / Time No Known Allergies Allergy Mild Verified 02/10/21 11:24 Home Medications Medication Instructions Recorded Confirmed Last Taken Type cholecalciferol (vitamin D3) 25 25 mcg PO DAILY 04/14/20 11/29/20 07/23/20 History mcg (1,000 unit) capsule timolol 0.25 % eye drops 1 drp OPHTHALMIC-LEFT DAILY 04/14/20 11/29/20 07/23/20 History lisinopril 40 mg tablet 40 mg PO DAILY 08/21/20 11/29/20 Unknown History timolol maleate 0.5 % eye drops 1 drp OPHTHALMIC (EYE) BID 08/21/20 11/29/20 Unknown History Exam Airway Mallampati Class: II (Very poor dentition) TM Dist: >3cm Neck ROM: Full Loose/Missing/Broken Teeth: Yes, Upper and Lower Heart: RRR Lungs: CTA Assessment and Plan Assessment Anesthesia Assessment: Anesthesia Plan Discussed Final Anesthetic Review History of Problems with Anesthesia: No NPO: Yes ASA Class: III Final Preanesthetic Review: Meds/Allgs Chart Reviewed, Consent Obtained/Reviewed and Anes Risks/Benef Reviewed Patient Risk: Intermediate Procedure Risk: Low Anesthetic Plan Anesthetic Plan: GA Disposition: Standard PACU
[2021-02-16] VITALS (7 sets, daily range): BP systolic 141–178; BP diastolic 52–67; PULSE 54–64; RESP 16–17; TEMP 36.4–36.6; O2SAT 93–100; BMI 25.1
[2021-02-16 08:40] LABS: Glucose, Whole Blood 115 mg/dL (60-115)
[2021-02-16] MEDS: Lactated Ringers 1,000 ML 50 ML IVCONT (09:03)
[2021-02-16 10:50] LABS: Glucose, Whole Blood 85 mg/dL (60-115)
--- NOTE | 2021-02-16 10:54 | P.OP_ITS ---
Operative Note Operative Note Date of Service: 02/16/21 Narrative: Operative note by [facility] Preoperative diagnosis: Nonhealing right 3rd toe ulcer, osteomyelitis Postoperative diagnosis: Same Procedure: Right 3rd toe amputation Surgeon:Juan Oscar M.D. Technical Sales Support Manager: Blake Anesthesia: General Specimens: 1 Drains: Minimum Estimated blood loss: Minimal Indications: 75-year-old diabetic gentleman has been a longstanding patient of the [facility]. Has osteomyelitis of the 3rd toe. Has been nonhealing. He now presents for amputation. patient has signed the informed consent after reviewing risks, complications, benefits, and alternatives previously discussed with the patient. The patient was given the opportunity to ask any additional questions or voice any concerns. All questions were answered to the patient's satisfaction. Procedure in detail: Patient brought to the operating room prior to which timeout was called for patient identification site verification. Right leg was prepped and draped in standard surgical fashion. Curvilinear fishmouth incision was made over the 3rd toe. Base it was taken all the way down to the metatarsal head. This was dissected out. Adequate hemostasis was achieved with electrocautery. Wound was irrigated out. Deep layer was reapproximated use is 2-0 poly Sorb. Superficial layer reapproximated using 3-0 nylon in a mattress fashion. Xeroform and a sterile dressing were applied. At the end the case sponge instrument counts were correct. Patient brought to the recovery with stable vitals. Thank you for allowing us to participate his care. This note is constructed using voice recognition software. While every effort has been made to ensure accuracy, account services coordinator errors may have been included. Thank you for allowing me to participate in the care of your patient. Yours sincerely, Juan Osacr MD, FACS, R.P.V.I.
== END 2021-02-16 12:31 | disposition home or self-care (01) ==
PROVIDERS: Visit Provider Surgery Vascular Surgery
PROC: (CPT 28810; principal; 2021-02-16 09:40)
DX: E11.621 Type 2 diabetes mellitus with foot ulcer (principal); E11.51 Type 2 diabetes mellitus with diabetic peripheral angiopathy without gangrene; L97.516 Non-pressure chronic ulcer of other part of right foot with bone involvement without evidence of necrosis; E11.65 Type 2 diabetes mellitus with hyperglycemia; E11.21 Type 2 diabetes mellitus with diabetic nephropathy; E11.40 Type 2 diabetes mellitus with diabetic neuropathy, unspecified; M86.671 Other chronic osteomyelitis, right ankle and foot; J45.909 Unspecified asthma, uncomplicated; E55.9 Vitamin D deficiency, unspecified; I48.20 Chronic atrial fibrillation, unspecified; Z79.01 Long term (current) use of anticoagulants; Z79.84 Long term (current) use of oral hypoglycemic drugs; Z79.899 Other long term (current) drug therapy; I10 Essential (primary) hypertension; Z89.411 Acquired absence of right great toe; Z89.021 Acquired absence of right finger(s); F17.210 Nicotine dependence, cigarettes, uncomplicated
CPT/HCPCS: 28810; 82947; 88305; 88311; J0690; J2405; J3010

== ENCOUNTER → 2021-03-03 15:11 | Outpatient (BNVA) | payer MEDICARE, SELFPAY | PROVIDERS: PCP Internal Medicine; Visit Provider Surgery Vascular Surgery | DX: I73.9 Peripheral vascular disease, unspecified (principal); Z89.421 Acquired absence of other right toe(s) | CPT/HCPCS: 99212 ==

== ENCOUNTER 2021-06-02 12:55 | Outpatient (REF) | payer MEDICARE, SELFPAY ==
--- NOTE | ~2021-06-02 | US_ITS ---
EXAMINATION: COLOR-FLOW DUPLEX IMAGING OF THE BILATERAL LOWER EXTREMITY ARTERIAL SYSTEM. VELOCITY MEASUREMENTS THROUGHOUT THE FEMORAL ARTERIES WITH ANKLE-BRACHIAL PERIPHERAL ARTERIAL TESTING. Interventional Radiologist: Miko White M.D., F.S.I.R., F.A.C.R. COMPARISON: Comparison is made to a previous study dated 11/18/2020. This demonstrated elevated velocities in the common femoral arteries. The ankle-brachial index was 0.94 on the right and 1.05 on the left. CLINICAL INFORMATION: This is a 76-year-old male with hypertension, diabetes, peripheral arterial disease. TECHNIQUE: Color-flow duplex imaging with spectral waveform analysis was performed. Velocity measurement was obtained. RIGHT FEMORAL RUNOFF VELOCITIES: The right common femoral artery measures 213 cm/s and biphasic. The right profunda femoral artery is 144 cm/s and is biphasic. Right proximal superficial femoral artery measures 136 cm/s and biphasic. Mid superficial femoral artery is 160 cm/s and biphasic. Distal right superficial femoral artery measures 169 cm/s and is biphasic. Right popliteal velocity measures 83 cm/s and is biphasic. The posterior tibial artery velocity measures 54 cm/s and was monophasic. The right ankle-brachial index is 0.95. The waveforms appear depressed at the ankle. LEFT FEMORAL RUNOFF VELOCITIES: The left common femoral artery measures 228 cm/s and biphasic. The left profunda femoral artery is 126 cm/s and is biphasic. Left proximal superficial femoral artery measures 131 cm/s and biphasic. Mid superficial femoral artery is 115 cm/s and biphasic. Distal left superficial femoral artery measures 164 cm/s and is biphasic. Left popliteal velocity measures 122 cm/s and is biphasic. The posterior tibial artery velocity measures 46 cm/s and was biphasic. The left ankle brachial index is 1.17. US/US arterial duplex LE BI IMPRESSION: 1. RIGHT SIDE: Again noted are elevated velocities in the right common femoral artery with biphasic waveforms. This likely represents hemodynamically significant stenosis at this level or within the inflow. There may be collateral reconstitution with an ankle-brachial index that stabilized 0.95 and within normal limits of range. Previously, the ankle-brachial index was 0.94. 2. LEFT SIDE: Again noted are elevated velocities in the left common femoral artery now with biphasic waveforms. Previously, the waveforms were triphasic. There is likely a hemodynamically significant stenosis at the left common femoral artery or in the aortoiliac inflow. There is adequate compensation and collateralization with a normal ankle-brachial index.
[2021-06-02 15:00] LABS: MANUAL DIFF FLAG NO
[2021-06-02 15:14] LABS: Appearance Urine CLEAR; Color Urine YELLOW; Glucose Urine UA NEG (NEG); Leukocyte Esterase Urine NEG (NEG); Nitrite Urine NEG (NEG); Urine Blood TRACE (NEG); Urine Ketones NEG (NEG); Urine Protein 2+ MG/DL (NEG-TRACE)
[2021-06-02 15:20] LABS: Basophils Absolute Auto 0.1 X10*3/uL (0.0-0.2); Basophils Percent Auto 0.7 % (0-2); Eosinophils Absolute Auto 0.3 X10*3/uL (0.0-0.4); Eosinophils Percent Auto 3.7 % (0-4); Hematocrit 40.5 % (42.0-52.0); Imm Gran Abs Auto 0.06 X10*3/uL (0.00-0.03); Imm Gran Pct Auto 0.7 % (0.0-0.4); Immature Retic Fraction 13.4 % (2.3-13.4); Lymphocytes Absolute Auto 1.3 X10*3/uL (1.2-4.9); Lymphocytes Percent Auto 15.9 % (20-40); Mean Corpuscular HGB Conc 32.1 g/dl (31.0-36.0); Mean Corpuscular Hemoglobin 29.8 pg (27.0-33.0); Mean Corpuscular Volume 92.9 fL (80.0-98.0); Mean Platelet Volume 11.2 fL (9.4-12.4); Monocytes Absolute Auto 0.7 X10*3/uL (0.1-1.2); Monocytes Percent Auto 8.6 % (2-11); Neutrophils Absolute Auto 5.9 x10*3/uL (2.0-8.3); Neutrophils Percent Auto 70.4 % (45-73); Platelet Count 311 X10*3/uL (160-400); Red Blood Count 4.36 X10*6/uL (4.60-5.80); Red Cell Distribution Width 16.1 % (11.0-16.0); Reticulocyte Percent 1.6 % (0.5-1.8); Reticulocytes Absolute 0.069 X10*6/uL (0.026-0.095); White Blood Count 8.4 X10*3/uL (4.8-10.8)
[2021-06-02 15:33] LABS: Squamous Epithelial Cell Urine TRACE /LPF; WBC Urine 0 /HPF (0-4)
[2021-06-02 15:47] LABS: Creatinine Urine 35.78 mg/dL
[2021-06-02 15:47] LABS: Alanine Aminotransferase 41 U/L (0-40); Albumin Level 3.8 g/dL (3.5-5.0); Alkaline Phosphatase 117 U/L (39-117); Anion Gap 13 (12-20); Aspartate Amino Transferase 49 U/L (5-37); Bilirubin Total 0.5 mg/dL (0.0-1.0); Blood Urea Nitrogen 26 mg/dL (9-16); Carbon Dioxide 28 mmol/L (22-29); Chloride 105 mmol/L (96-108); Cholesterol 180 mg/dL; Estimated Glomerular Filt Rate 53; Glucose Random 92 mg/dL (60-115); HDL Cholesterol 34 mg/dL; Iron 78 mcg/dL (45-160); LDL Cholesterol Calculated 125 mg/dl; Potassium 5.7 mmol/L (3.3-5.1); Sodium 140 mmol/L (135-145); Total Protein 7.4 g/dL (6.5-8.0); Triglycerides 108 mg/dL; Uric Acid 7.4 mg/dL (3.4-7.0)
[2021-06-02 15:52] LABS: B Type Natriuretic Peptide 693 pg/mL (<100)
[2021-06-02 16:05] LABS: Percent Iron Saturation 29 % (15-50); Total Iron Binding Capacity 268 mcg/dL (228-428); Unsaturated Iron Binding 190 ug/dL
[2021-06-02 16:07] LABS: Ferritin 116 ng/mL (20-250); Free T4 (Free Thyroxine) 0.72 ng/dL (0.71-1.85); Thyroid Stimulating Hormone 13.89 uIU/mL (0.32-4.0)
[2021-06-02 16:11] LABS: Microalbum/Creatinine Ratio Ur 3040.8 ug/mg cr
[2021-06-02 16:25] LABS: Folate 8.2 ng/mL (> or = 4.0); Vitamin B12 450 pg/mL (200-900)
[2021-06-03 03:38] LABS: Estimated Average Glucose 108 mg/dL; Hemoglobin A1c % 5.4 %
== END 2021-06-02 12:56 | disposition home or self-care (01) ==
LOC: HO.US 12:55
PROVIDERS: PCP Internal Medicine; Visit Provider Surgery Vascular Surgery
DX: I73.9 Peripheral vascular disease, unspecified (principal); E11.65 Type 2 diabetes mellitus with hyperglycemia; E78.00 Pure hypercholesterolemia, unspecified
CPT/HCPCS: 36415; 80053; 80061; 81001; 82043; 82607; 82728; 82746; 83036; 83540; 83880; 84439; 84443; 84550; 85025; 85045; 93925

== ENCOUNTER 2021-06-16 14:03 | Outpatient (REF) | payer MEDICARE, SELFPAY ==
[2021-06-16 15:56] LABS: Appearance Urine CLEAR; Color Urine YELLOW; Glucose Urine UA NEG (NEG); Leukocyte Esterase Urine NEG (NEG); Nitrite Urine NEG (NEG); Specific Gravity - Urine 1.025 (1.005-1.025); Urine Blood TRACE (NEG); Urine Ketones NEG (NEG); Urine Protein 2+ MG/DL (NEG-TRACE)
[2021-06-16 16:00] LABS: Anion Gap 12 (12-20); Blood Urea Nitrogen 30 mg/dL (9-16); Calcium 9.4 mg/dL (8.4-10.2); Carbon Dioxide 26 mmol/L (22-29); Chloride 106 mmol/L (96-108); Estimated Glomerular Filt Rate 52; Glucose Random 76 mg/dL (60-115); Potassium 4.9 mmol/L (3.3-5.1); Sodium 139 mmol/L (135-145)
[2021-06-16 16:18] LABS: Amorphous Sediment Urine TRACE /LPF; Hyaline Casts Urine 0-2 /LPF; Mucus Urine 1+ /LPF; RBC Urine 0-2 /HPF (0); Squamous Epithelial Cell Urine 1+ /LPF; WBC Urine 0 /HPF (0-4)
[2021-06-16 16:21] LABS: Creatinine Urine 74.89 mg/dL
[2021-06-16 16:23] LABS: Free T4 (Free Thyroxine) 0.94 ng/dL (0.71-1.85); Thyroid Stimulating Hormone 12.08 uIU/mL (0.32-4.0)
== END 2021-06-16 14:04 | disposition home or self-care (01) ==
LOC: HO.LAB 14:03
PROVIDERS: Absent Provider Internal Medicine; PCP Internal Medicine; Visit Provider Surgery Vascular Surgery
DX: E11.65 Type 2 diabetes mellitus with hyperglycemia (principal); E87.5 Hyperkalemia
CPT/HCPCS: 36415; 80048; 81001; 84439; 84443; 99212

== ENCOUNTER 2021-06-30 14:47 | Inpatient (IN) | payer MEDICARE, SELFPAY ==
--- NOTE | ~2021-06-30 | MR_ITS ---
EXAMINATION: MRI FOOT WITHOUT AND WITH CONTRAST, RIGHT CLINICAL INFORMATION: Osteotomy. Pain and swelling. COMPARISON: Multiple priors, most recent right foot radiographs dated 06/30/2021 and right foot MRI dated 11/30/2020. TECHNIQUE: Multisequence MR imaging of the right foot was obtained before and after the administration of 7.5 mL of Gadavist contrast on a high-field strength scanner. FINDINGS: Redemonstration of 1st metatarsal and 3rd phalangeal resections as seen on the most recent radiographs. Soft tissue ulceration at the dorsal aspect of the forefoot in the region of the resected 3rd phalanx with a peripherally enhancing soft tissue collection measuring 2.5 x 2.0 x 4.7 cm with extension to the plantar surface of the 3rd metatarsal head. Findings are consistent with cellulitis and abscess formation. There may be extension of the collection to the plantar soft tissues adjacent to the 3rd metatarsal head. There is increased T2 and decreased T1 signal within the 3rd metatarsal head with postcontrast enhancement, consistent with acute osteomyelitis. Additionally, there is increased T2 signal and decreased T1 signal within the 2nd metatarsal head with a small joint effusion, consistent with more mild, acute osteomyelitis. There is prominent increased T2 and decreased T1 signal within the 4th metatarsal head extending more proximally within the diaphysis demonstrating significant postcontrast enhancement, consistent with acute osteomyelitis. Similar findings are seen within the 4th proximal phalanx. Edema within the intrinsic musculature of the foot, which can be seen in diabetic patients. The Lisfranc ligament is intact. MR/MR foot RT wo/w con IMPRESSION: 1. Resection of the 3rd phalanx with soft tissue ulceration dorsally and an underlying abscess formation ventral to the 3rd metatarsal head measuring up to 4.7 cm. This extends to the plantar surface of the metatarsal head with probable extension to the plantar soft tissue surface. Acute osteomyelitis within the 3rd metatarsal. 2. Acute osteomyelitis within the 2nd metatarsal head with a joint effusion which could indicate 2nd metatarsophalangeal septic arthritis. 3. Acute osteomyelitis within the 4th metatarsal head and 4th proximal phalanx without an associated joint effusion.
--- NOTE | ~2021-06-30 | XR_ITS ---
EXAMINATION: XR FOOT, RIGHT CLINICAL INFORMATION: Pain and swelling COMPARISON: Previous x-ray most recent November 2020 TECHNIQUE: AP, lateral, and oblique views of the right foot. FINDINGS: There is interval amputation of the third toe. There is soft tissue swelling and air seen in the soft tissues adjacent to the third metatarsal head questionable for infection. There is transmetatarsal amputation of the great toe that appears unchanged. There is bone destruction and subluxation of the second MTP joint are questionable for septic arthritis and osteomyelitis. There is a new fracture of the fourth metatarsal head. There is soft tissue swelling over the mid and distal foot. XR/XR foot RT min 3V IMPRESSION: Arthritis and subluxation of the second MTP joint questionable for infection/septic arthritis. Interval amputation of the third toe. Soft tissue swelling and air in the soft tissues adjacent to the remaining third metatarsal head questionable for infection. New fracture of the fourth metatarsal head. Stable postoperative changes following transmetatarsal amputation of the great toe.
--- NOTE | 2021-06-30 14:56 | ED_ITS ---
HPI - Skin/Abscess/Foreign Bdy General Chief complaint: Skin/Abscess/Foreign Body Stated complaint: ? INF RIGHT FOOT H/O DM PER EMS Time Seen by Provider: 06/30/21 14:56 Source: patient and old records reviewed Mode of arrival: EMS Limitations: no limitations History of Present Illness HPI narrative: my foot swelled like a balloon - atraumatic MD complaint: other (R foot redness/swelling drainage) Onset (ago): day(s) (2) Tetanus up to date: yes Location: R foot Severity: moderate Quality: dull Relieving factors: none Exacerbating factors: palpation Context: other (hx of infected wound ulcer and prior amputations - hx of MRSA and group A strep 11/2020 completed 6 weeks of vancomycin and zosyn) Associated symptoms: denies other symptoms Treatments prior to arrival: bandages Related Data Home Medications Medication Instructions Recorded Confirmed cholecalciferol (vitamin D3) 25 25 mcg PO DAILY 04/14/20 06/30/21 mcg (1,000 unit) capsule timolol maleate 0.5 % eye drops 1 drp OPHTHALMIC-LEFT DAILY 08/21/20 06/30/21 Previous Rx's Medication Instructions Recorded amlodipine 10 mg tablet 10 mg PO DAILY 90 Days #90 tab 12/03/20 metoprolol succinate 100 mg 100 mg PO DAILY #90 tab 03/05/21 tablet,extended release 24 hr metformin 500 mg tablet 500 mg PO BID 90 Days #180 tab 03/16/21 atorvastatin 10 mg tablet 10 mg PO BEDTIME #90 tab 05/04/21 mirtazapine 7.5 mg tablet 7.5 mg PO BEDTIME #30 tab 05/04/21 amiodarone 200 mg tablet 200 mg PO DAILY #30 tab 05/28/21 apixaban 5 mg tablet (Eliquis) 5 mg PO BID #60 tab 05/28/21 clopidogrel 75 mg tablet (Plavix) 75 mg PO DAILY #30 tab 05/28/21 levothyroxine 25 mcg tablet 25 mcg PO DAILY 30 Days #30 tab 06/16/21 (Synthroid) Allergies Allergy/AdvReac Type Severity Reaction Status Date / Time No Known Allergies Allergy Mild Verified 06/30/21 16:09 Review of Systems Review of Systems: Constitutional : No Fever, No Chills ENT/Mouth : No sore throat, No Rhinorrhea Eyes: No Eye Pain, No Swelling, No Redness Cardiovascular : No Chest Pain, No SOB Respiratory : No Cough, No Sputum Gastrointestinal : No Nausea, No Vomiting, No Diarrhea, No abdominal Pain Genitourinary : No Dysuria, No Hematuria Musculoskeletal : No joint pain, No Myalgias, No Joint Swelling Skin : pos Skin Lesions, positive skin rash Neuro : No Weakness, No Numbness, No Headache Psych : No Anxiety, No Depression Heme/Lymph: No Bruising, No Bleeding,No Lymphadenopathy Endocrine : No Polyuria, No Polydipsia All other systems reviewed and are negative [facility] Past Medical History Attestation statement: The following information was validated with the patient. Medical History Abscess of right foot Anxiety and depression Asthma Atrial fibrillation with rapid ventricular response Avascular necrosis of bone of hip Coronary artery disease Diabetic foot ulcer Diabetic nephropathy Diabetic neuropathy Diverticular disease Hypercholesterolemia Hypertension Open wound Osteomyelitis of toe Preoperative cardiovascular examination Thrombocytopenia Tobacco abuse Tubular adenoma of colon Type 2 diabetes mellitus with hyperglycemia Vitamin D deficiency Surgical History Amputated toe of right foot Amputation finger History of cataract surgery History of surgery Family History Family History Father Diabetes Hypertension CVD (cardiovascular disease) Stroke Mother CVD (cardiovascular disease) Hypertension Cancer Sister No problems noted. Son Stroke Social History Social History Household Members: Family Household Members Other:: 4 Housing: House Do you presently have visiting nurse or other home services: Yes Alcohol intake: current Patient Tobacco Use Status: Former Tobacco user Tobacco use type: Cigarette Cigarettes Per Day: 7 Years Smoked: 09/2020 stopped e-Cigarette/Vaping Use: Never Used Second Hand Smoke Exposure: No Advance Directives: Yes Advance Directives on File: Yes Advance Directives Date on File: 07/24/20 service: No Current occupational status: retired Physical Exam Vital Signs: Vital Signs: Last Vital Signs Temp 97.4 F 06/30/21 16:11 Pulse 51 06/30/21 16:11 Resp 16 06/30/21 16:11 BP 138/49 L 06/30/21 16:11 Pulse Ox 99 06/30/21 16:11 BMI result Body Mass Index 23.9 Appearance: Alert. Oriented X3. No acute distress. Eyes: Pupils equal, round and reactive to light. ENT: Pharynx normal. Neck: Normal inspection. Neck supple. CVS: Normal heart rate and rhythm. Pulses normal. Respiratory: No respiratory distress. Breath sounds normal. Abdomen: Soft and non-tender. Skin: Skin warm and dry. Normal skin color. Normal skin turgor. Extremities: No lower extremity edema. R foot - prior amputations of great toe - open wound noted with some yellowish drainage at top of foot with moderate swelling noted at prior amputation site on middle of foot erythema and swelling extending to ankle, foot is warm to the touch Neuro: Oriented X 3. No motor deficit. No sensory deficit. Course Course Course Narrative: message sent to Dr. Resendez for possible I/D - saw patient at bedside would recommend vascular consult given they have managed his wounds in the past Dr. Oscar is on vacation at this time. Dr. Resendez aware. I have updated the hospitalist. MDM - Skin/Abscess/Foreign Bdy MDM Narrative Medical decision making narrative: 76 yo male with hx of afib on eliquis, DM, PVD, hx of osteomyelitis and R foot ulcers with abscess that has grown out MRSA and group A strep - notes his R foot became swollen like a ballon a few days ago. Denies trauma or systemic symptoms. The foot itself is swollen with erythema and drainage noted - at this time labs, infl markers, cultures, xray for osteo, IV vancomycin/zosyn given prior culture results. Likely admit. Lab Data Result diagrams: 06/30/21 15:19 06/30/21 15:19 Labs: Lab Results 06/30/21 06/30/21 06/30/21 Range/Units 15:16 15:19 15:19 WBC 9.5 (4.8-10.8) X10*3/uL RBC 3.68 L (4.60-5.80) X10*6/uL Hgb 11.3 L (14.0-18.0) g/dl Hct 35.0 L (42.0-52.0) % MCV 95.1 (80.0-98.0) fL MCH 30.7 (27.0-33.0) pg MCHC 32.3 (31.0-36.0) g/dl RDW 15.2 (11.0-16.0) % Plt Count 254 (160-400) X10*3/uL MPV 10.8 (9.4-12.4) fL Immature Gran % (Auto) 0.4 (0.0-0.4) % Neut % (Auto) 77.2 H (45-73) % Lymph % (Auto) 11.6 L (20-40) % [place] % (Auto) 7.9 (2-11) % Eos % (Auto) 2.3 (0-4) % Baso % (Auto) 0.6 (0-2) % Lymph # (Auto) 1.1 L (1.2-4.9) X10*3/uL [place] # (Auto) 0.8 (0.1-1.2) X10*3/uL Eos # (Auto) 0.2 (0.0-0.4) X10*3/uL Baso # (Auto) 0.1 (0.0-0.2) X10*3/uL Abs Immat Gran (auto) 0.04 H (0.00-0.03) X10*3/uL Absolute Neuts (auto) 7.3 (2.0-8.3) x10*3/uL Absolute Nucleated RBC 0.000 (0.0-0.012) X10*3/uL Nucleated RBC % (auto) 0.0 (0.0-0.2) /100WBC ESR 92 H (0-15) MM/HR Sodium (135-145) mmol/L Potassium (3.3-5.1) mmol/L Chloride (96-108) mmol/L Carbon Dioxide (22-29) mmol/L Anion Gap (12-20) BUN (9-16) mg/dL Creatinine (0.5-1.4) mg/dL Estim Creat Clear Calc Estimated GFR Random Glucose (60-115) mg/dL Lactic Acid (0.5-2.0) mmol/L Calcium (8.4-10.2) mg/dL Magnesium (1.6-2.6) mg/dL Total Bilirubin (0.0-1.0) mg/dL Direct Bilirubin (0.0-0.5) mg/dL AST (5-37) U/L ALT (0-40) U/L Alkaline Phosphatase (39-117) U/L C-Reactive Protein (< or = 0.50) mg/dL Total Protein (6.5-8.0) g/dL Albumin (3.5-5.0) g/dL COVID-19 ([facility]) Negative (Negative) COVID-19 Clin Com See Note 06/30/21 06/30/21 Range/Units 15:19 15:19 WBC (4.8-10.8) X10*3/uL RBC (4.60-5.80) X10*6/uL Hgb (14.0-18.0) g/dl Hct (42.0-52.0) % MCV (80.0-98.0) fL MCH (27.0-33.0) pg MCHC (31.0-36.0) g/dl RDW (11.0-16.0) % Plt Count (160-400) X10*3/uL MPV (9.4-12.4) fL Immature Gran % (Auto) (0.0-0.4) % Neut % (Auto) (45-73) % Lymph % (Auto) (20-40) % [place] % (Auto) (2-11) % Eos % (Auto) (0-4) % Baso % (Auto) (0-2) % Lymph # (Auto) (1.2-4.9) X10*3/uL [place] # (Auto) (0.1-1.2) X10*3/uL Eos # (Auto) (0.0-0.4) X10*3/uL Baso # (Auto) (0.0-0.2) X10*3/uL Abs Immat Gran (auto) (0.00-0.03) X10*3/uL Absolute Neuts (auto) (2.0-8.3) x10*3/uL Absolute Nucleated RBC (0.0-0.012) X10*3/uL Nucleated RBC % (auto) (0.0-0.2) /100WBC ESR (0-15) MM/HR Sodium 140 (135-145) mmol/L Potassium 4.0 (3.3-5.1) mmol/L Chloride 106 (96-108) mmol/L Carbon Dioxide 23 (22-29) mmol/L Anion Gap 15 (12-20) BUN 26 H (9-16) mg/dL Creatinine 1.22 (0.5-1.4) mg/dL Estim Creat Clear Calc 49.9 Estimated GFR 57 Random Glucose 120 H D (60-115) mg/dL Lactic Acid 1.6 (0.5-2.0) mmol/L Calcium 9.3 (8.4-10.2) mg/dL Magnesium 2.1 (1.6-2.6) mg/dL Total Bilirubin 0.7 (0.0-1.0) mg/dL Direct Bilirubin 0.4 (0.0-0.5) mg/dL AST 35 (5-37) U/L ALT 38 (0-40) U/L Alkaline Phosphatase 104 (39-117) U/L C-Reactive Protein 20.58 H (< or = 0.50) mg/dL Total Protein 6.6 (6.5-8.0) g/dL Albumin 3.3 L (3.5-5.0) g/dL COVID-19 ([facility]) (Negative) COVID-19 Clin Com Discharge Plan Discharge Clinical Impression: Abscess Cellulitis Qualifiers: Site of cellulitis: extremity Site of cellulitis of extremity: lower extremity Laterality: right Qualified Code(s): L03.115 - Cellulitis of right lower limb Patient Disposition: Admitted As Inpatient
[2021-06-30 15:04] VITALS: BP 152/53; BP 160/78; PULSE 58; RESP 18; TEMP 36.6; O2SAT 100; BMI 23.9
[2021-06-30 15:24] LABS: MANUAL DIFF FLAG NO
[2021-06-30] MEDS: Piperacillin Sodium/Tazobactam 3.375 GM in 0.9 % Sodium Chloride 50 ML IV ×2 (15:27→20:43)
[2021-06-30 15:28] LABS: Basophils Absolute Auto 0.1 X10*3/uL (0.0-0.2); Basophils Percent Auto 0.6 % (0-2); Eosinophils Absolute Auto 0.2 X10*3/uL (0.0-0.4); Eosinophils Percent Auto 2.3 % (0-4); Hemoglobin 11.3 g/dl (14.0-18.0); Imm Gran Abs Auto 0.04 X10*3/uL (0.00-0.03); Imm Gran Pct Auto 0.4 % (0.0-0.4); Lymphocytes Absolute Auto 1.1 X10*3/uL (1.2-4.9); Lymphocytes Percent Auto 11.6 % (20-40); Mean Corpuscular HGB Conc 32.3 g/dl (31.0-36.0); Mean Corpuscular Hemoglobin 30.7 pg (27.0-33.0); Mean Corpuscular Volume 95.1 fL (80.0-98.0); Mean Platelet Volume 10.8 fL (9.4-12.4); Monocytes Absolute Auto 0.8 X10*3/uL (0.1-1.2); Monocytes Percent Auto 7.9 % (2-11); Neutrophils Absolute Auto 7.3 x10*3/uL (2.0-8.3); Neutrophils Percent Auto 77.2 % (45-73); Platelet Count 254 X10*3/uL (160-400); Red Blood Count 3.68 X10*6/uL (4.60-5.80); Red Cell Distribution Width 15.2 % (11.0-16.0); White Blood Count 9.5 X10*3/uL (4.8-10.8)
[2021-06-30 15:36] LABS: Lactic Acid 1.6 mmol/L (0.5-2.0)
[2021-06-30] MEDS: vancomycin HCL 1,000 MG in 0.9 % Sodium Chloride 250 ML 270 MG IV (15:36)
[2021-06-30 15:40] LABS: COVID-19 Test Negative (Negative); IDNOW Serial# 16C4AD1C
--- NOTE | 2021-06-30 15:41 | PHA.MEDREC ---
Pharmacy Consult ? Medication Reconciliation Pharmacy has completed the medication reconciliation. Med history obtained from pt's
[2021-06-30 15:50] LABS: Alanine Aminotransferase 38 U/L (0-40); Albumin Level 3.3 g/dL (3.5-5.0); Alkaline Phosphatase 104 U/L (39-117); Anion Gap 15 (12-20); Aspartate Amino Transferase 35 U/L (5-37); Bilirubin Direct 0.4 mg/dL (0.0-0.5); Bilirubin Total 0.7 mg/dL (0.0-1.0); Blood Urea Nitrogen 26 mg/dL (9-16); C Reactive Protein 20.58 mg/dL (< or = 0.50); Calcium 9.3 mg/dL (8.4-10.2); Carbon Dioxide 23 mmol/L (22-29); Chloride 106 mmol/L (96-108); Creatinine Clr Calc Pharmacy 49.9; Estimated Glomerular Filt Rate 57; Glucose Random 120 mg/dL (60-115); Magnesium 2.1 mg/dL (1.6-2.6); Sodium 140 mmol/L (135-145); Total Protein 6.6 g/dL (6.5-8.0)
[2021-06-30 16:03] LABS: Erythrocyte Sedimentation Rate 92 MM/HR (0-15)
[2021-06-30 16:11] VITALS: BP 138/49; PULSE 51; RESP 16; TEMP 36.3; O2SAT 99
--- NOTE | 2021-06-30 16:21 | PM.IMHP ---
History of Present Illness Date of Service: 06/30/21 Chief Complaint: Infected foot 76-year-old male with a past medical history of diabetes with diabetes foot ulcers and infections in the past and has had right big toe and 3rd toe amputated in the past .? Hepresents to the hospital with complaints of right lower extremity redness and drainage at the site of previous amputated toe, his is vague on how long this is been an oingoing. The foot is obviously draining purulent discharge with what appears to be an abscess. CRP is over 20.?Xray of the foot shows Arthritis and subluxation of the second MTP joint questionable forinfection/septic arthritis.? Review of Systems Review of Systems: No fever, no pain in the foot Yes all other systems are reviewed and are negative COUNTS INCLUDE 234 BEDS AT THE [facility] Medical History Abscess of right foot Anxiety and depression Asthma Atrial fibrillation with rapid ventricular response Avascular necrosis of bone of hip Coronary artery disease Diabetic foot ulcer Diabetic nephropathy Diabetic neuropathy Diverticular disease Hypercholesterolemia Hypertension Open wound Osteomyelitis of toe Preoperative cardiovascular examination Thrombocytopenia Tobacco abuse Tubular adenoma of colon Type 2 diabetes mellitus with hyperglycemia Vitamin D deficiency Family History Father Diabetes Hypertension CVD (cardiovascular disease) Stroke Mother CVD (cardiovascular disease) Hypertension Cancer Sister No problems noted. Son Stroke Surgical History Amputated toe of right foot Amputation finger History of cataract surgery History of surgery Social History Household Members: Family Household Members Other:: 4 Housing: House Do you presently have visiting nurse or other home services: Yes Alcohol intake: current Patient Tobacco Use Status: Former Tobacco user Tobacco use type: Cigarette Cigarettes Per Day: 7 Years Smoked: 09/2020 stopped e-Cigarette/Vaping Use: Never Used Second Hand Smoke Exposure: No Advance Directives: Yes Advance Directives on File: Yes Advance Directives Date on File: 07/24/20 service: No Current occupational status: retired Meds Allergies Allergy/AdvReac Type Severity Reaction Status Date / Time No Known Allergies Allergy Mild Verified 06/30/21 16:09 Active Medications: Current Medications Pharmacy Consult (Consult Rx Perform Med Rec) 1 each MISCELLANE ONCE PRN PRN Reason: Consult order Home Medications Medication Instructions Recorded Confirmed Last Taken Type cholecalciferol (vitamin D3) 25 25 mcg PO DAILY 04/14/20 06/30/21 06/30/21 History mcg (1,000 unit) capsule timolol maleate 0.5 % eye drops 1 drp OPHTHALMIC-LEFT DAILY 08/21/20 06/30/21 06/30/21 History Physical Exam Vital Signs and Narrative: Vital Signs: Last Vital Signs Temp 97.4 F 06/30/21 16:11 Pulse 51 06/30/21 16:11 Resp 16 06/30/21 16:11 BP 138/49 L 06/30/21 16:11 Pulse Ox 99 06/30/21 16:11 BMI result Body Mass Index 23.9 Const: Other: Constitutional: Alert, in no distress, Mental Status: Oriented to person, place and time. Eyes: Pupils are equal, round and reactive to light. Ear, Nose and Throat: Oropharynx clear Respiratory: Clear to auscultation. No wheezing, rales or rhonchi. Cardiovascular: S1 S2 regular. No murmurs, rubs or gallops. Gastrointestinal: Abdomen soft, non-tender, non-distended. Normal bowel sounds.? Neurologic: Cranial nerves II-XII grossly intact. No focal neurological deficits. Moves all extremities spontaneously.? Skin: Musculoskeletal: No cyanosis or clubbing. Psychiatric: Normal mood and affect? Results Labs CBC and Chem 7: 06/30/21 15:19 06/30/21 15:19 Assessment and Plan (1) Abscess: Status: Acute Plan 76-year-old male with a past medical history of diabetes who presents to the hospital with complaints of right lower extremity redness and drainage at the site of previous amputated toe, his is vague on how long this is been an oingoing. The foot is obviously draining purulent discharge with what appears to be an abscess. CRP is over 2), ESR 92.?Xray of the foot shows Arthritis and subluxation of the second MTP joint questionable for infection/septic arthritis.? 1. Right foot abscess, possible septic arthritis. will need I and D, therefore surgery consult IV Abx (Vanco +Zosyn) 2. Diabetes--Sliding scale insulin, hold Metformin 3. Chronic Afib--continue Metoprolol and Amiodarone, Eliquis for stroke prevention 4. HLD--Statin 5. HTN--Norvasc, Metoprolol DVT--hold eliquis, in the event he needs procedure Quality Stroke Does the patient have a stroke diagnosis?: No VTE Prior VTE?: No VTE Risk Level:: Medical - moderate - high VTE Device Contraindication: Treatment Not Indicated VTE Drug Contraindication: N/A - Med Ordered
--- NOTE | 2021-06-30 16:22 | P.CONGS_ITS ---
History of Present Illness Consult details Consult date: 06/30/21 Requesting physician: Jonelle Coffman Narrative: 76-year-old male patient presenting to the emergency department with complaints of a red swollen right foot. He has a history of diabetes, atrial fibrillation, peripheral arterial disease, and osteomyelitis of the right foot status post amputation of the great toe and 3rd toe. He is being followed by Dr. Oscar vascular surgery and noted the right foot this swell over the last 24-48 hours. He denies any significant pain in the foot although he denies significant sensation of his feet due to neuropathy. He is also unaware of any discharge from the right foot. He has previously undergone a right common femoral arterial stent ( 12/05/2020 ), and amputation of the 3rd toe on 02/16/2021. He was seen by Dr. Oscar as recently as 06/16/2021 seem to be doing well that time. He denies any recent trauma to the foot. Review of Systems Review of Systems: Yes all other systems are reviewed and are negative Cardiovascular: Cardiovascular: Denies chest pain, Denies rapid heart rate, Reports pedal edema, Reports irregular heart rhythm, Reports leg edema and Denies dyspnea Respiratory: Respiratory: Denies cough, Denies dyspnea and Denies wheezing Musculoskeletal: Musculoskeletal: Reports as per HPI Allergic/Immunologic: Allergic/Immunologic: Denies wheezing PMFSH Past Medical History Medical History Abscess of right foot Anxiety and depression Asthma Atrial fibrillation with rapid ventricular response Avascular necrosis of bone of hip Coronary artery disease Diabetic foot ulcer Diabetic nephropathy Diabetic neuropathy Diverticular disease Hypercholesterolemia Hypertension Open wound Osteomyelitis of toe Preoperative cardiovascular examination Thrombocytopenia Tobacco abuse Tubular adenoma of colon Type 2 diabetes mellitus with hyperglycemia Vitamin D deficiency Family History Family History Father Diabetes Hypertension CVD (cardiovascular disease) Stroke Mother CVD (cardiovascular disease) Hypertension Cancer Sister No problems noted. Son Stroke Surgical History Surgical History Amputated toe of right foot Amputation finger History of cataract surgery History of surgery Social History Social History Household Members: Family Household Members Other:: 4 Housing: House Do you presently have visiting nurse or other home services: Yes Alcohol intake: current Patient Tobacco Use Status: Former Tobacco user Tobacco use type: Cigarette Cigarettes Per Day: 7 Years Smoked: 09/2020 stopped e-Cigarette/Vaping Use: Never Used Second Hand Smoke Exposure: No Advance Directives: Yes Advance Directives on File: Yes Advance Directives Date on File: 07/24/20 service: No Current occupational status: retired Meds Allergies Allergy/AdvReac Type Severity Reaction Status Date / Time No Known Allergies Allergy Mild Verified 06/30/21 16:09 Active Medications: Current Medications Pharmacy Consult (Consult Rx Perform Med Rec) 1 each MISCELLANE ONCE PRN PRN Reason: Consult order Home Medications Medication Instructions Recorded Confirmed Last Taken Type cholecalciferol (vitamin D3) 25 25 mcg PO DAILY 04/14/20 06/30/21 06/30/21 History mcg (1,000 unit) capsule timolol maleate 0.5 % eye drops 1 drp OPHTHALMIC-LEFT DAILY 08/21/20 06/30/21 06/30/21 History Physical Exam Vital Signs: Vital Signs: Last Vital Signs Temp 97.4 F 06/30/21 16:11 Pulse 51 06/30/21 16:11 Resp 16 06/30/21 16:11 BP 138/49 L 06/30/21 16:11 Pulse Ox 99 06/30/21 16:11 BMI result Body Mass Index 23.9 Const: General: no acute distress and well developed Nutritional Appearance : well nourished Orientation/consciousness: patient oriented x3 HENMT: Head: Yes normocephalic and Yes atraumatic Ears: hearing grossly normal bilaterally Resp: Effort & Inspection: normal respiratory effort, no audible wheezes, no cough and no respiratory distress GI: Inspection: Yes normal to inspection Skin: General skin exam: no rashes or lesions noted Neuro: General: patient oriented x3 Extrem: Other: Right foot with amputations of the great and 3rd toes. Great toe amputation site is clean and intact. Third toe site is red and boggy with no definite fluctuance. There is an opening at the incision which appears to be draining. Light pressure on the bogginess does not produce any additional discharge. There is no tenderness to palpation. Results Labs Result diagrams: 06/30/21 15:19 03/15/22 15:19 Labs: Abnormal lab results 06/30/21 06/30/21 06/30/21 Range/Units 15:19 15:19 15:19 RBC 3.68 L (4.60-5.80) X10*6/uL Hgb 11.3 L (14.0-18.0) g/dl Hct 35.0 L (42.0-52.0) % Neut % (Auto) 77.2 H (45-73) % Lymph % (Auto) 11.6 L (20-40) % Lymph # (Auto) 1.1 L (1.2-4.9) X10*3/uL Abs Immat Gran (auto) 0.04 H (0.00-0.03) X10*3/uL ESR 92 H (0-15) MM/HR BUN 26 H (9-16) mg/dL Random Glucose 120 H D (60-115) mg/dL C-Reactive Protein 20.58 H (< or = 0.50) mg/dL Albumin 3.3 L (3.5-5.0) g/dL Short CBC 06/30/21 Range/Units 15:19 WBC 9.5 (4.8-10.8) X10*3/uL Hgb 11.3 L (14.0-18.0) g/dl Hct 35.0 L (42.0-52.0) % Plt Count 254 (160-400) X10*3/uL BMP 06/30/21 15:19 Sodium 140 Potassium 4.0 Chloride 106 Carbon Dioxide 23 BUN 26 H Creatinine 1.22 Calcium 9.3 Liver Function 06/30/21 Range/Units 15:19 Total Bilirubin 0.7 (0.0-1.0) mg/dL Direct Bilirubin 0.4 (0.0-0.5) mg/dL AST 35 (5-37) U/L ALT 38 (0-40) U/L Alkaline Phosphatase 104 (39-117) U/L Albumin 3.3 L (3.5-5.0) g/dL All other labs normal. Assessment and Plan (1) Osteomyelitis of toe of right foot: Status: Acute (2) Cellulitis and abscess of foot: Status: Acute Plan 76-year-old male patient known to the service with a prior history of osteomyelitis of the right foot now presenting with an infected right foot at the 3rd toe amputation site. This recent onset of redness and discharge as noted above. Findings are suggestive of underlying abscess or osteomyelitis. Patient is admitted to the hospitalist service for IV antibiotics. Right foot x-ray was reviewed and air is noted within the subcutaneous tissue which may be contiguous with the skin opening. Suggest MRI of the right foot to evaluate for osteomyelitis of the 3rd metatarsal. Will follow along during his hospitalization. Procedures Date of Service Date of Service: 06/30/21
[2021-06-30 16:25] LABS: INTERNATIONAL NORM RATIO 2.4 (0.9-1.1); Prothrombin Time 27.5 SEC (9.9-13.0)
[2021-06-30 16:43] VITALS: BP 146/60; PULSE 50; RESP 16; O2SAT 100
[2021-06-30 17:43] VITALS: BP 154/66; PULSE 54; RESP 18; TEMP 36.5; O2SAT 98
[2021-06-30] MEDS: Mirtazapine 7.5 MG TABLET PO (20:44)
[2021-06-30 20:46] LABS: Glucose, Whole Blood 81 mg/dL (60-115)
[2021-06-30] MEDS: Atorvastatin Calcium 10 MG TABLET PO (20:50)
--- NOTE | 2021-06-30 21:00 | PC.NURSE ---
Assumed care of pt Pt medicated per JUN Pt tolerating well NAD Will continue to monitor
[2021-06-30 21:04] VITALS: BP 154/61; PULSE 55; RESP 18; TEMP 36.4; O2SAT 96
[2021-06-30 23:23] VITALS: BP 148/78; PULSE 50; RESP 18; TEMP 37.4; O2SAT 95
[2021-07-01] MEDS: Piperacillin Sodium/Tazobactam 3.375 GM in 0.9 % Sodium Chloride 50 ML IV ×4 (02:40→21:12)
--- NOTE | 2021-07-01 07:50 | P.CONGS_ITS ---
History of Present Illness Consult details Consult date: 07/01/21 Narrative: Very pleasant 76-year-old gentleman well known to me status post right 3rd toe amputation. He had been doing extremely well and the wound had gone on to heal from the amputation site. He had actually seen me on 06/16/2021 for routine surveillance follow-up. At that time he was doing extremely well. He seem to be ambulating well. Over the last 2-3 days he developed some redness and discomfort of the foot. He presented to the emergency room. Found to have some cellulitis and drainage from that amputation site in particular on the dorsum aspect of it. He was subsequently admitted for IV antibiotic therapy. Review of Systems Review of Systems: Yes all other systems are reviewed and are negative Constitutional: Constitutional: Reports no additional constitutional com plaints ENT: Reports Normal hearing present Cardiovascular: Cardiovascular: Denies chest pain, Denies chest pain at rest, Denies chest pain with activity and Denies pedal edema Respiratory: Respiratory: Denies cough Gastrointestinal: Gastrointestinal: Denies abdominal pain Musculoskeletal: Musculoskeletal: Denies abnormal gait, Denies muscle cramps and Denies radiating pain into limb Integumentary/Breasts: Skin/Breast: Denies skin ulcer and Denies wounds Neurologic: Reports Normal hearing present and Denies abnormal gait Psychiatric: Psychiatric: Reports no additional psychiatric complaints PMFSH Past Medical History Medical History Abscess of right foot Anxiety and depression Asthma Atrial fibrillation with rapid ventricular response Avascular necrosis of bone of hip Coronary artery disease Diabetic foot ulcer Diabetic nephropathy Diabetic neuropathy Diverticular disease Hypercholesterolemia Hypertension Open wound Osteomyelitis of toe Preoperative cardiovascular examination Thrombocytopenia Tobacco abuse Tubular adenoma of colon Type 2 diabetes mellitus with hyperglycemia Vitamin D deficiency Family History Family History Father Diabetes Hypertension CVD (cardiovascular disease) Stroke Mother CVD (cardiovascular disease) Hypertension Cancer Sister No problems noted. Son Stroke Surgical History Surgical History Amputated toe of right foot Amputation finger History of cataract surgery History of surgery Social History Social History Household Members: Family Household Members Other:: 4 Housing: House Do you presently have visiting nurse or other home services: Yes Alcohol intake: current Patient Tobacco Use Status: Former Tobacco user Tobacco use type: Cigarette Cigarettes Per Day: 7 Years Smoked: 09/2020 stopped e-Cigarette/Vaping Use: Never Used Second Hand Smoke Exposure: No Advance Directives: Yes Advance Directives on File: Yes Advance Directives Date on File: 07/24/20 service: No Current occupational status: retired Meds Allergies Allergy/AdvReac Type Severity Reaction Status Date / Time No Known Allergies Allergy Mild Verified 06/30/21 16:09 Active Medications: Current Medications Acetaminophen (Acetaminophen 325 Mg Tablet) 650 mg PO Q6H PRN PRN Reason: Pain, Mild (Pain Scale 1-3) Amiodarone HCl (Amiodarone Hcl 200 Mg Tablet) 200 mg PO DAILY PENDING SALE TO [facility] Amlodipine Besylate (Amlodipine Besylate 10 Mg Tablet) 10 mg PO DAILY PENDING SALE TO [facility]; Protocol Atorvastatin Calcium (Atorvastatin Calcium 10 Mg Tablet) 10 mg PO BEDTIME PENDING SALE TO [facility] Last Admin: 06/30/21 20:50 Dose: 10 mg Documented by: Piperacillin Sod/Tazobactam (Sod 3.375 gm/ Sodium Chloride) 50 mls @ 100 mls/hr IV Q6H PENDING SALE TO [facility] Last Infusion: 07/01/21 03:27 Dose: Infused Documented by: Vancomycin HCl 1,250 mg/ (Sodium Chloride) 250 mls @ 166.667 mls/hr IV Q24H PENDING SALE TO [facility] Levothyroxine Sodium (Levothyroxine Sodium 25 Mcg Tablet) 25 mcg PO DAILY PENDING SALE TO [facility] Metformin HCl (Metformin Hcl 500 Mg Tablet) 500 mg PO BIDWM PENDING SALE TO [facility] Metoprolol Succinate (Metoprolol Succinate Er 100 Mg Tab.Er.24h) 100 mg PO DAILY PENDING SALE TO [facility]; Protocol Mirtazapine (Mirtazapine 7.5 Mg Tablet) 7.5 mg PO BEDTIME PENDING SALE TO [facility] Last Admin: 06/30/21 20:44 Dose: 7.5 mg Documented by: Morphine Sulfate (Morphine Sulfate 4 Mg/Ml Cartridge) 2 mg IVPUSH Q4H PRN; Protocol PRN Reason: Pain, Severe (Pain Scale 7-10) Pharmacy Consult (Consult Rx Perform Med Rec) 1 each MISCELLANE ONCE PRN PRN Reason: Consult order Pharmacy Consult (Consult Rx Vancomycin Dosing) 1 each MISCELLANE DAILY PRN PRN Reason: Consult order Sodium Chloride (0.9 % Sodium Chloride Flush 3 Ml Syringe) 3 ml IVFLUSH QSHIFT PENDING SALE TO [facility] Last Admin: 06/30/21 23:53 Dose: Not Given Documented by: Timolol Maleate (Timolol Maleate 0.5 % [place] 5 Ml Drbtl) 1 drop EYE-LEFT DAILY PENDING SALE TO [facility] Vitamin D (Cholecalciferol (Vitamin D3) 25 Mcg Tablet) 25 mcg PO DAILY PENDING SALE TO [facility] Home Medications Medication Instructions Recorded Confirmed Last Taken Type cholecalciferol (vitamin D3) 25 25 mcg PO DAILY 04/14/20 06/30/21 06/30/21 History mcg (1,000 unit) capsule timolol maleate 0.5 % eye drops 1 drp OPHTHALMIC-LEFT DAILY 08/21/20 06/30/21 06/30/21 History Physical Exam Vital Signs: Vital Signs: Last Vital Signs Temp 99.3 F 06/30/21 23:23 Pulse 50 06/30/21 23:23 Resp 18 06/30/21 23:23 BP 148/78 H 06/30/21 23:23 Pulse Ox 95 06/30/21 23:23 BMI result Body Mass Index 23.9 Const: General: cooperative, healthy appearing and comfortable Orientation/consciousness: oriented to person, oriented to place and oriented to time HENMT: Head: Yes normal to inspection Neck: Neck: Yes normal visual inspection Carotids: no bruits Chest: Chest palpation & inspection: normal inspection of the chest Resp: Effort & Inspection: normal respiratory effort and able to speak in complete sentences Auscultation: clear to auscultation bilaterally, no crackles, no rales, no rhonchi and no wheezes Cardio: Rate: regular rate Rhythm: regular rhythm Heart sounds: S1 normal heart sound present and S2 normal heart sound present Bruits: no carotid bruits Peripheral pulses: Peripheral pulses 2+ throughout GI: Inspection: Yes normal to inspection Skin: Wounds: fistulous tract (Right 3rd toe dorsum amputation site - tract open purulent material cleared) Hair: normal Neuro: General: oriented to person, oriented to place and oriented to time Cranial nerves: Yes CN's II-XII intact bilaterally and Yes Normal hearing present Cognition (Neuro): normal cognition Motor exam (neuro): 5/5 motor strength present throughout Extrem: Other: venous exam: No significant superficial varicosities or spider telangiectasias, minimal edema General: No clubbing, No cyanosis and No edema Psych: Appearance: grossly normal Mental Status: mental status grossly normal Speech and movement: Normal speech and movement present Results Labs Result diagrams: 06/30/21 15:19 06/30/21 15:19 Labs: Abnormal lab results 06/30/21 06/30/21 06/30/21 Range/Units 15:19 15:19 15:19 RBC 3.68 L (4.60-5.80) X10*6/uL Hgb 11.3 L (14.0-18.0) g/dl Hct 35.0 L (42.0-52.0) % Neut % (Auto) 77.2 H (45-73) % Lymph % (Auto) 11.6 L (20-40) % Lymph # (Auto) 1.1 L (1.2-4.9) X10*3/uL Abs Immat Gran (auto) 0.04 H (0.00-0.03) X10*3/uL ESR 92 H (0-15) MM/HR PT (9.9-13.0) SEC INR (0.9-1.1) BUN 26 H (9-16) mg/dL Random Glucose 120 H D (60-115) mg/dL C-Reactive Protein 20.58 H (< or = 0.50) mg/dL Albumin 3.3 L (3.5-5.0) g/dL 06/30/21 Range/Units 16:12 RBC (4.60-5.80) X10*6/uL Hgb (14.0-18.0) g/dl Hct (42.0-52.0) % Neut % (Auto) (45-73) % Lymph % (Auto) (20-40) % Lymph # (Auto) (1.2-4.9) X10*3/uL Abs Immat Gran (auto) (0.00-0.03) X10*3/uL ESR (0-15) MM/HR PT 27.5 H (9.9-13.0) SEC INR 2.4 H (0.9-1.1) BUN (9-16) mg/dL Random Glucose (60-115) mg/dL C-Reactive Protein (< or = 0.50) mg/dL Albumin (3.5-5.0) g/dL Short CBC 06/30/21 Range/Units 15:19 WBC 9.5 (4.8-10.8) X10*3/uL Hgb 11.3 L (14.0-18.0) g/dl Hct 35.0 L (42.0-52.0) % Plt Count 254 (160-400) X10*3/uL BMP 06/30/21 15:19 Sodium 140 Potassium 4.0 Chloride 106 Carbon Dioxide 23 BUN 26 H Creatinine 1.22 Calcium 9.3 Liver Function 06/30/21 Range/Units 15:19 Total Bilirubin 0.7 (0.0-1.0) mg/dL Direct Bilirubin 0.4 (0.0-0.5) mg/dL AST 35 (5-37) U/L ALT 38 (0-40) U/L Alkaline Phosphatase 104 (39-117) U/L Albumin 3.3 L (3.5-5.0) g/dL All other labs normal. Imaging Additional studies: X-ray of foot from 06/30 written report and images were reviewed. Prior RACHAEL on the right side was 0.95. Assessment and Plan (1) PAD (peripheral artery disease): Status: Acute Plan Patient with right 3rd toe amputation who has had prior endovascular intervention had gone on to heal that amp site. It has developed an abscess on the dorsum. This was opened up in some purulent material was expressed. Gauze was packed. Agree with General surgery would recommend MRI for underlying osteomyelitis. I do believe this does have a good potential to heal. Will place dressing care instructions. Of note I will be away for the next week and a half. General surgery will be covering for me. Thank you for allowing me to participate in this patient's care. If there are questions or concerns please do not hesitate to contact us. Procedures Date of Service Date of Service: 07/01/21
[2021-07-01 07:57] LABS: Glucose, Whole Blood 101 mg/dL (60-115)
[2021-07-01 08:36] LABS: Creatinine Clr Calc Pharmacy 47.9; Estimated Glomerular Filt Rate 55
[2021-07-01 08:40] VITALS: BP 150/72; PULSE 56; RESP 16; TEMP 37.1; O2SAT 93
--- NOTE | 2021-07-01 08:49 | PHA.PROG ---
Admission Date/Time: June 30, 2021 16:59 Indication: Right foot abscess, possible septic arthritis. Weight in k.5 kg Adjusted body weight in K.8 kg Pr[place]ard body weight in K.7 kg Obesity Dosing Indication % IBW: 103% Serum Creatinine - Last 168 Hours 06/30/21 07/01/21 15:19 08:13 Creatinine 1.22 1.27 Estimated CrCl and GFR - Last 168 Hours 06/30/21 07/01/21 15:19 08:13 Estim Creat Clear Calc 49.9 47.9 Estimated GFR 57 55 Vancomycin Loading Dose: N/A Current Vancomycin Dosing Regimen: 1250 mg Q24H Date and Time for next Vancomycin Level to be drawn: 07/03 @ 1400 Pharmacist Comments on Vancomycin Plan: Renal function is stable. Pharmacy will continue to monitor daily. Continue current regimen. Expected AUC 545 with a trough of 16.7. Isi Sumner PharmD Vancomycin dosing will take advantage of [employer] as a clinical decision support tool that uses Bayesian modeling to calculate individual patient's pharmacokinetic parameters and forecast the patient's drug concentration time course with the target goal AUC 24 range of 400 - 600 mg/L/hr.
[2021-07-01] MEDS: Metoprolol Succinate ER 100 MG TAB.ER.24H PO (09:05)
[2021-07-01] MEDS: Cholecalciferol (Vitamin D3) 25 MCG TABLET PO (09:05)
[2021-07-01] MEDS: amLODIPine Besylate 10 MG TABLET PO (09:05)
[2021-07-01] MEDS: Amiodarone HCL 200 MG TABLET PO (09:06)
[2021-07-01] MEDS: metFORMIN HCl 500 MG TABLET PO ×2 (09:06→18:56)
[2021-07-01] MEDS: 0.9 % Sodium Chloride Flush 3 ML SYRINGE IVFLUSH ×2 (09:07→16:58)
--- NOTE | 2021-07-01 09:20 | PC.NURSE ---
pt alert and oriented, skin pwd, respirations even and unlabored, pt denies pain at this time, right second toe area wound is currently packed
[2021-07-01] MEDS: Levothyroxine Sodium 25 MCG TABLET PO (09:24)
[2021-07-01] MEDS: timoloL maleate 0.5 % Oph Sol 5 ML DRBTL 1 DROP EYE-LEFT (09:24)
--- NOTE | 2021-07-01 13:17 | P.PNIM_ITS ---
Subjective Subjective Date of Service: 07/01/21 Interval History: follow up on diabetic foot infection and possible osteomylitis Review of Systems no fever, no pain in the foot Physical Exam Vital Signs: Vital Signs: Last Vital Signs Temp 98.7 F 07/01/21 08:40 Pulse 56 07/01/21 08:40 Resp 16 07/01/21 08:40 BP 150/72 H 07/01/21 08:40 Pulse Ox 93 07/01/21 08:40 BMI result Body Mass Index 23.9 Objective Data Active Medications Acetaminophen (Acetaminophen 325 Mg Tablet) 650 mg PO Q6H PRN PRN Reason: Pain, Mild (Pain Scale 1-3) Amiodarone HCl (Amiodarone Hcl 200 Mg Tablet) 200 mg PO DAILY [facility] Last Admin: 07/01/21 09:06 Dose: 200 mg Documented by: JEROME Amlodipine Besylate (Amlodipine Besylate 10 Mg Tablet) 10 mg PO DAILY [facility]; Protocol Last Admin: 07/01/21 09:05 Dose: 10 mg Documented by: JEROME Atorvastatin Calcium (Atorvastatin Calcium 10 Mg Tablet) 10 mg PO BEDTIME [facility] Last Admin: 06/30/21 20:50 Dose: 10 mg Documented by: STEFFEN Piperacillin Sod/Tazobactam (Sod 3.375 gm/ Sodium Chloride) 50 mls @ 100 mls/hr IV Q6H [facility] Last Infusion: 07/01/21 11:20 Dose: 0 mls/hr Documented by: JEROME Vancomycin HCl 1,250 mg/ (Sodium Chloride) 250 mls @ 166.667 mls/hr IV Q24H [facility] Levothyroxine Sodium (Levothyroxine Sodium 25 Mcg Tablet) 25 mcg PO DAILY [facility] Last Admin: 07/01/21 09:24 Dose: 25 mcg Documented by: JEROME Metformin HCl (Metformin Hcl 500 Mg Tablet) 500 mg PO BIDWM [facility] Last Admin: 07/01/21 09:06 Dose: 500 mg Documented by: JEROME Metoprolol Succinate (Metoprolol Succinate Er 100 Mg Tab.Er.24h) 100 mg PO DAILY [facility]; Protocol Last Admin: 07/01/21 09:05 Dose: 100 mg Documented by: JEROME Mirtazapine (Mirtazapine 7.5 Mg Tablet) 7.5 mg PO BEDTIME [facility] Last Admin: 06/30/21 20:44 Dose: 7.5 mg Documented by: STEFFEN Morphine Sulfate (Morphine Sulfate 4 Mg/Ml Cartridge) 2 mg IVPUSH Q4H PRN; Protocol PRN Reason: Pain, Severe (Pain Scale 7-10) Pharmacy Consult (Consult Rx Perform Med Rec) 1 each MISCELLANE ONCE PRN PRN Reason: Consult order Pharmacy Consult (Consult Rx Vancomycin Dosing) 1 each MISCELLANE DAILY PRN PRN Reason: Consult order Sodium Chloride (0.9 % Sodium Chloride Flush 3 Ml Syringe) 3 ml IVFLUSH QSHIFT [facility] Last Admin: 07/01/21 09:07 Dose: 3 ml Documented by: JEROME Timolol Maleate (Timolol Maleate 0.5 % [place]ph [place] 5 Ml Drbtl) 1 drop EYE-LEFT DAILY [facility] Last Admin: 07/01/21 09:24 Dose: 1 drop Documented by: JEROME Vitamin D (Cholecalciferol (Vitamin D3) 25 Mcg Tablet) 25 mcg PO DAILY [facility] Last Admin: 07/01/21 09:05 Dose: 25 mcg Documented by: JEROME Labs CBC & Chem 7: 06/30/21 15:19 07/01/21 08:13 Labs: Laboratory Results - last 24 hr 06/30/21 06/30/21 06/30/21 15:16 15:19 15:19 MCV 95.1 MCH 30.7 MCHC 32.3 RDW 15.2 Plt Count 254 MPV 10.8 Immature Gran % (Auto) 0.4 Neut % (Auto) 77.2 H Lymph % (Auto) 11.6 L [place] % (Auto) 7.9 Eos % (Auto) 2.3 Baso % (Auto) 0.6 Lymph # (Auto) 1.1 L [place] # (Auto) 0.8 Eos # (Auto) 0.2 Baso # (Auto) 0.1 Abs Immat Gran (auto) 0.04 H Absolute Neuts (auto) 7.3 Absolute Nucleated RBC 0.000 Nucleated RBC % (auto) 0.0 ESR 92 H PT INR Anion Gap Estim Creat Clear Calc Estimated GFR POC Glucose Random Glucose Lactic Acid Calcium Magnesium Total Bilirubin Direct Bilirubin AST ALT Alkaline Phosphatase C-Reactive Protein Total Protein Albumin COVID-19 (KISHAN) Negative COVID-19 Clin Com See Note 06/30/21 06/30/21 06/30/21 15:19 15:19 16:12 MCV MCH MCHC RDW Plt Count MPV Immature Gran % (Auto) Neut % (Auto) Lymph % (Auto) [place] % (Auto) Eos % (Auto) Baso % (Auto) Lymph # (Auto) [place] # (Auto) Eos # (Auto) Baso # (Auto) Abs Immat Gran (auto) Absolute Neuts (auto) Absolute Nucleated RBC Nucleated RBC % (auto) ESR PT 27.5 H INR 2.4 H Anion Gap 15 Estim Creat Clear Calc 49.9 Estimated GFR 57 POC Glucose Random Glucose 120 H D Lactic Acid 1.6 Calcium 9.3 Magnesium 2.1 Total Bilirubin 0.7 Direct Bilirubin 0.4 AST 35 ALT 38 Alkaline Phosphatase 104 C-Reactive Protein 20.58 H Total Protein 6.6 Albumin 3.3 L COVID-19 (KISHAN) COVID-19 Clin Com 06/30/21 07/01/21 07/01/21 20:42 07:38 08:13 MCV MCH MCHC RDW Plt Count MPV Immature Gran % (Auto) Neut % (Auto) Lymph % (Auto) [place] % (Auto) Eos % (Auto) Baso % (Auto) Lymph # (Auto) [place] # (Auto) Eos # (Auto) Baso # (Auto) Abs Immat Gran (auto) Absolute Neuts (auto) Absolute Nucleated RBC Nucleated RBC % (auto) ESR PT INR Anion Gap Estim Creat Clear Calc 47.9 Estimated GFR 55 POC Glucose 81 101 Random Glucose Lactic Acid Calcium Magnesium Total Bilirubin Direct Bilirubin AST ALT Alkaline Phosphatase C-Reactive Protein Total Protein Albumin COVID-19 (KISHAN) COVID-19 Clin Com Assessment and Plan (1) Abscess: Status: Acute (2) Cellulitis: Status: Acute (3) Type 2 diabetes mellitus with peripheral artery disease: Status: Acute Plan 76-year-old male with a past medical history of diabetes who presents to the hospital with complaints of right lower extremity redness and drainage at the site of previous amputated toe, his is vague on how long this is been an oingoing. The foot is obviously draining purulent discharge with what appears to be an abscess. CRP is over 2), ESR 92.?Xray of the foot shows?Arthritis and subluxation of the second MTP joint questionable for infection/septic arthritis.?? 1. Right foot abscess, possible septic arthritis. Seen by surgery s/p I and D IV Abx (Vanco +Zosyn) ID consult 2. Diabetes--Sliding scale insulin, hold Metformin 3. Chronic Afib--continue Metoprolol and Amiodarone, Eliquis for stroke prevention 4. HLD--Statin 5. HTN--Norvasc, Metoprolol DVT--hold eliquis, in the event he needs procedure Need for inpatient: Needs IV Abx for suspected osteomylitis of the foot, further testing with MRI and will mik need surgical intervenion Quality Stroke Does the patient have a stroke diagnosis?: No VTE Prior VTE?: No VTE Risk Level:: Medical - moderate - high VTE Device Contraindication: Treatment Not Indicated VTE Drug Contraindication: N/A - Med Ordered
--- NOTE | 2021-07-01 15:00 | P.CNID_ITS ---
History of Present Illness Data of Consult Service Date: 07/01/21 Requesting physician: Jimbo Smallwood Primary Care Provider: MD FRANSISCA Cutler Reason for consult: right foot infection He presents with three days right foot swelling and pain He last had six weeks IV antibiotics Zosyn and Vancomycin in 11/2020. He has recurrent infections there. Review of Systems Review of Systems: Yes all other systems are reviewed and are negative PMFSH Past Medical History Medical History Abscess of right foot Anxiety and depression Asthma Atrial fibrillation with rapid ventricular response Avascular necrosis of bone of hip Coronary artery disease Diabetic foot ulcer Diabetic nephropathy Diabetic neuropathy Diverticular disease Hypercholesterolemia Hypertension Open wound Osteomyelitis of toe Preoperative cardiovascular examination Thrombocytopenia Tobacco abuse Tubular adenoma of colon Type 2 diabetes mellitus with hyperglycemia Vitamin D deficiency Family History Family History Father Diabetes Hypertension CVD (cardiovascular disease) Stroke Mother CVD (cardiovascular disease) Hypertension Cancer Sister No problems noted. Son Stroke Surgical History Surgical History Amputated toe of right foot Amputation finger History of cataract surgery History of surgery Social History Social History Household Members: Family Household Members Other:: 4 Housing: House Do you presently have visiting nurse or other home services: Yes Alcohol intake: current Alcohol intake frequency: holidays/special occasions only Patient Tobacco Use Status: Former Tobacco user Tobacco use type: Cigarette Cigarettes Per Day: 7 Years Smoked: 09/2020 stopped e-Cigarette/Vaping Use: Never Used Second Hand Smoke Exposure: No Use of substances other than those prescribed or required for medical reasons: No Advance Directives: Yes Advance Directives on File: Yes Advance Directives Date on File: 07/24/20 service: No Current occupational status: retired Meds Allergies Allergy/AdvReac Type Severity Reaction Status Date / Time No Known Allergies Allergy Mild Verified 06/30/21 16:09 Active Medications: Current Medications Acetaminophen (Acetaminophen 325 Mg Tablet) 650 mg PO Q6H PRN PRN Reason: Pain, Mild (Pain Scale 1-3) Amiodarone HCl (Amiodarone Hcl 200 Mg Tablet) 200 mg PO DAILY [facility] Last Admin: 07/01/21 09:06 Dose: 200 mg Documented by: Amlodipine Besylate (Amlodipine Besylate 10 Mg Tablet) 10 mg PO DAILY [facility]; Protocol Last Admin: 07/01/21 09:05 Dose: 10 mg Documented by: Atorvastatin Calcium (Atorvastatin Calcium 10 Mg Tablet) 10 mg PO BEDTIME [facility] Last Admin: 06/30/21 20:50 Dose: 10 mg Documented by: Piperacillin Sod/Tazobactam (Sod 3.375 gm/ Sodium Chloride) 50 mls @ 100 mls/hr IV Q6H [facility] Last Infusion: 07/01/21 11:20 Dose: Infused Documented by: Vancomycin HCl 1,250 mg/ (Sodium Chloride) 250 mls @ 166.667 mls/hr IV Q24H [facility] Levothyroxine Sodium (Levothyroxine Sodium 25 Mcg Tablet) 25 mcg PO DAILY [facility] Last Admin: 07/01/21 09:24 Dose: 25 mcg Documented by: Metformin HCl (Metformin Hcl 500 Mg Tablet) 500 mg PO BIDWM [facility] Last Admin: 07/01/21 09:06 Dose: 500 mg Documented by: Metoprolol Succinate (Metoprolol Succinate Er 100 Mg Tab.Er.24h) 100 mg PO DAILY [facility]; Protocol Last Admin: 07/01/21 09:05 Dose: 100 mg Documented by: Mirtazapine (Mirtazapine 7.5 Mg Tablet) 7.5 mg PO BEDTIME [facility] Last Admin: 06/30/21 20:44 Dose: 7.5 mg Documented by: Morphine Sulfate (Morphine Sulfate 4 Mg/Ml Cartridge) 2 mg IVPUSH Q4H PRN; Protocol PRN Reason: Pain, Severe (Pain Scale 7-10) Pharmacy Consult (Consult Rx Perform Med Rec) 1 each MISCELLANE ONCE PRN PRN Reason: Consult order Pharmacy Consult (Consult Rx Vancomycin Dosing) 1 each MISCELLANE DAILY PRN PRN Reason: Consult order Sodium Chloride (0.9 % Sodium Chloride Flush 3 Ml Syringe) 3 ml IVFLUSH QSHIFT [facility] Last Admin: 07/01/21 09:07 Dose: 3 ml Documented by: Timolol Maleate (Timolol Maleate 0.5 % [place] 5 Ml Drbtl) 1 drop EYE-LEFT DAILY [facility] Last Admin: 07/01/21 09:24 Dose: 1 drop Documented by: Vitamin D (Cholecalciferol (Vitamin D3) 25 Mcg Tablet) 25 mcg PO DAILY [facility] Last Admin: 07/01/21 09:05 Dose: 25 mcg Documented by: Home Medications Medication Instructions Recorded Confirmed Last Taken Type cholecalciferol (vitamin D3) 25 25 mcg PO DAILY 04/14/20 06/30/21 06/30/21 History mcg (1,000 unit) capsule timolol maleate 0.5 % eye drops 1 drp OPHTHALMIC-LEFT DAILY 08/21/20 06/30/21 06/30/21 History Physical Exam Vital Signs: Vital Signs: Last Vital Signs Temp 98.7 F 07/01/21 08:40 Pulse 56 07/01/21 08:40 Resp 16 07/01/21 08:40 BP 150/72 H 07/01/21 08:40 Pulse Ox 93 07/01/21 08:40 BMI result Body Mass Index 23.9 Const: General: cooperative Eyes: General: appearance normal, both eyes and all related structures Pupils: Equal, round and reactive pupils present Resp: Effort & Inspection: normal respiratory effort Cardio: Rate: regular rate Rhythm: regular rhythm GI: Palpation (GI): Soft to palpation and nontender Neuro: Cranial nerves: Yes Equal, round and reactive pupils present Extrem: Other: right foot erythema dorsal aspect Results Labs CBC & Chem 7: 06/30/21 15:19 07/01/21 08:13 Labs: Short CBC 06/30/21 Range/Units 15:19 WBC 9.5 (4.8-10.8) X10*3/uL Hgb 11.3 L (14.0-18.0) g/dl Hct 35.0 L (42.0-52.0) % Plt Count 254 (160-400) X10*3/uL BMP 06/30/21 07/01/21 15:19 08:13 Sodium 140 Potassium 4.0 Chloride 106 Carbon Dioxide 23 BUN 26 H Creatinine 1.22 1.27 Calcium 9.3 Liver Function 06/30/21 Range/Units 15:19 Total Bilirubin 0.7 (0.0-1.0) mg/dL Direct Bilirubin 0.4 (0.0-0.5) mg/dL AST 35 (5-37) U/L ALT 38 (0-40) U/L Alkaline Phosphatase 104 (39-117) U/L Albumin 3.3 L (3.5-5.0) g/dL Assessment and Plan (1) Cellulitis: Qualifiers: Laterality: right Site of cellulitis: extremity Site of cellulitis of extremity: lower extremity Qualified Code(s): L03.115 - Cellulitis of right lower limb Status: Acute (2) Abscess: Status: Acute He has recurrent infection in foot He has no had multiple organisms Do not think buttermaker continuous churn IV benefit patient at this point. Plan Po Augmentin and Doxycycline for 14 days Follow with Vascular
--- NOTE | 2021-07-01 16:00 | MHC.CM.PN ---
Attempted to meet with patient in regards to discharge planning. Patient currently sleeping. T/W spoke with patient's /HCP, Cathryn via telephone. Patient lives with Cathryn, ambulates with a walker and is active with [facility]. Patient sees Dr Oscar outpatient and just saw him on 06/18. PCP verified. Copy of HCP verified to be on file. Patient is not vaccinated or interested in being vaccinated. IMM explained and left at bedside. Physical therapy eval for home safety may be needed when medically stable. The preference would be for patient to return home with [facility]. If STR is needed, Cathryn is requesting referral to [facility]. T/W explained patient may be difficult to place due to not being vaccinated. Cathryn verbalized understanding and will reach out to niece about other placement options if needed. Continue to monitor for d/c needs.
[2021-07-01] MEDS: vancomycin HCL 1,250 MG in 0.9 % Sodium Chloride 250 ML 166.67 MG IV (16:55)
[2021-07-01 18:12] LABS: Glucose, Whole Blood 132 mg/dL (60-115)
[2021-07-01 18:40] VITALS: BP 161/70; PULSE 64; RESP 16; TEMP 37.2; O2SAT 98
[2021-07-01] MEDS: Mirtazapine 7.5 MG TABLET PO (21:11)
[2021-07-01] MEDS: Atorvastatin Calcium 10 MG TABLET PO (21:14)
[2021-07-01 23:23] VITALS: BP 134/59; PULSE 58; RESP 16; TEMP 36.9; O2SAT 98
[2021-07-02] MEDS: Piperacillin Sodium/Tazobactam 3.375 GM in 0.9 % Sodium Chloride 50 ML IV ×4 (03:33→21:32)
--- NOTE | 2021-07-02 03:49 | PC.NURSE ---
Pt A&OX3, KONGIGANAK. Pleasant and cooperative. Speech is clear and appropriate. LS-CTA. No cough or SOB reported. BS+. Pt tolerating diet, denies N/V/D. Voiding without issues in bathroom. Pt ambulates with a slow gait with 1 customer service assistant due to wound of his right foot. Patient has 4X4 dressing over flap that has some dry serosanguanous drainage. Pt denies pain. IV antibiotics as ordered. Will continue to monitor.
[2021-07-02 06:51] VITALS: BP 140/61; PULSE 52; RESP 14; TEMP 36.6; O2SAT 96
[2021-07-02 06:58] LABS: Estimated Glomerular Filt Rate 56
[2021-07-02 07:16] LABS: Glucose, Whole Blood 75 mg/dL (60-115)
--- NOTE | 2021-07-02 08:27 | P.PNGS_ITS ---
Subjective Subjective Date of Service: 07/02/21 Interval history: Patient denies any foot pain this morning. Physical Exam Vital Signs: Vital Signs: Last Vital Signs Temp 97.8 F 07/02/21 06:51 Pulse 52 07/02/21 06:51 Resp 14 07/02/21 06:51 BP 140/61 H 07/02/21 06:51 Pulse Ox 96 07/02/21 06:51 BMI result Body Mass Index 23.9 Const: General: comfortable and well developed Nutritional Appearance: well nourished Orientation/consciousness: patient oriented x3 Limitations: no limitations Resp: Effort & Inspection: normal respiratory effort Neuro: General: patient oriented x3 Extrem: Other: Dressings to the right foot were changed this morning. Wounds are open and draining as expected. No undrained abscess appreciated. Sterile dressings applied. Patient tolerated this well. Objective Data Active Medications Acetaminophen (Acetaminophen 325 Mg Tablet) 650 mg PO Q6H PRN PRN Reason: Pain, Mild (Pain Scale 1-3) Amiodarone HCl (Amiodarone Hcl 200 Mg Tablet) 200 mg PO DAILY [facility] Last Admin: 07/01/21 09:06 Dose: 200 mg Documented by: JEROME Amlodipine Besylate (Amlodipine Besylate 10 Mg Tablet) 10 mg PO DAILY [facility]; Protocol Last Admin: 07/01/21 09:05 Dose: 10 mg Documented by: JEROME Atorvastatin Calcium (Atorvastatin Calcium 10 Mg Tablet) 10 mg PO BEDTIME [facility] Last Admin: 07/01/21 21:14 Dose: 10 mg Documented by: ANDRIA Piperacillin Sod/Tazobactam (Sod 3.375 gm/ Sodium Chloride) 50 mls @ 100 mls/hr IV Q6H [facility] Last Infusion: 07/02/21 04:03 Dose: 0 mls/hr Documented by: ANDRIA Vancomycin HCl 1,250 mg/ (Sodium Chloride) 250 mls @ 166.667 mls/hr IV Q24H [facility] Last Infusion: 07/01/21 19:10 Dose: 0 mls/hr Documented by: ANDRIA Levothyroxine Sodium (Levothyroxine Sodium 25 Mcg Tablet) 25 mcg PO DAILY [facility] Last Admin: 07/01/21 09:24 Dose: 25 mcg Documented by: JEROME Metformin HCl (Metformin Hcl 500 Mg Tablet) 500 mg PO BIDWM [facility] Last Admin: 07/01/21 18:56 Dose: 500 mg Documented by: KAROLINE Metoprolol Succinate (Metoprolol Succinate Er 100 Mg Tab.Er.24h) 100 mg PO DAILY [facility]; Protocol Last Admin: 07/01/21 09:05 Dose: 100 mg Documented by: JEROME Mirtazapine (Mirtazapine 7.5 Mg Tablet) 7.5 mg PO BEDTIME [facility] Last Admin: 07/01/21 21:11 Dose: 7.5 mg Documented by: ANDRIA Morphine Sulfate (Morphine Sulfate 4 Mg/Ml Cartridge) 2 mg IVPUSH Q4H PRN; Protocol PRN Reason: Pain, Severe (Pain Scale 7-10) Pharmacy Consult (Consult Rx Perform Med Rec) 1 each MISCELLANE ONCE PRN PRN Reason: Consult order Pharmacy Consult (Consult Rx Vancomycin Dosing) 1 each MISCELLANE DAILY PRN PRN Reason: Consult order Sodium Chloride (0.9 % Sodium Chloride Flush 3 Ml Syringe) 3 ml IVFLUSH QSHIFT [facility] Last Admin: 07/02/21 06:18 Dose: Not Given Documented by: ANDRIA Non-Admin Reason: IV Running Timolol Maleate (Timolol Maleate 0.5 % [place] 5 Ml Drbtl) 1 drop EYE-LEFT DAILY [facility] Last Admin: 07/01/21 09:24 Dose: 1 drop Documented by: JEROME Vitamin D (Cholecalciferol (Vitamin D3) 25 Mcg Tablet) 25 mcg PO DAILY [facility] Last Admin: 07/01/21 09:05 Dose: 25 mcg Documented by: JEROME Labs CBC & Chem 7: 06/30/21 15:19 07/02/21 06:35 Labs: Laboratory Results - last 24 hr 07/01/21 07/01/21 07/02/21 08:13 18:09 06:35 Estim Creat Clear Calc 47.9 49.0 Estimated GFR 55 56 POC Glucose 132 H 07/02/21 07:13 Estim Creat Clear Calc Estimated GFR POC Glucose 75 Imaging MRI foot right : Radiologist's impression: Impressions Foot MRI 07/01/21 12:51 IMPRESSION: 1. Resection of the 3rd phalanx with soft tissue ulceration dorsally and an underlying abscess formation ventral to the 3rd metatarsal head measuring up to 4.7 cm. This extends to the plantar surface of the metatarsal head with probable extension to the plantar soft tissue surface. Acute osteomyelitis within the 3rd metatarsal. 2. Acute osteomyelitis within the 2nd metatarsal head with a joint effusion which could indicate 2nd metatarsophalangeal septic arthritis. 3. Acute osteomyelitis within the 4th metatarsal head and 4th proximal phalanx without an associated joint effusion. Microbiology Microbiology Results: Microbiology 06/30/21 15:19 Blood Culture - Preliminary Blood - Venous No growth after 24 hours. 06/30/21 15:15 Blood Culture - Preliminary Blood - Venous No growth after 24 hours. Procedures Date of Service Date of Service: 07/02/21 Progress Note: A&P Assessment and plan (1) Abscess: Status: Acute (2) Cellulitis: Status: Acute (3) Osteomyelitis of toe of right foot: Status: Acute Plan 76-year-old male patient with a prior history of osteomyelitis involving the right foot, now with infection and discharge. MRI findings suggestive of osteomyelitis at the 3rd metatarsal as well as the 2nd and 4th metatarsal heads. Dressings changed today and wounds look clean. Continue IV antibiotics. Fall Risk Details Current Medications: Current Medications Acetaminophen (Acetaminophen 325 Mg Tablet) 650 mg PO Q6H PRN PRN Reason: Pain, Mild (Pain Scale 1-3) Amiodarone HCl (Amiodarone Hcl 200 Mg Tablet) 200 mg PO DAILY [facility] Last Admin: 07/01/21 09:06 Dose: 200 mg Documented by: Amlodipine Besylate (Amlodipine Besylate 10 Mg Tablet) 10 mg PO DAILY [facility]; Protocol Last Admin: 07/01/21 09:05 Dose: 10 mg Documented by: Atorvastatin Calcium (Atorvastatin Calcium 10 Mg Tablet) 10 mg PO BEDTIME [facility] Last Admin: 07/01/21 21:14 Dose: 10 mg Documented by: Piperacillin Sod/Tazobactam (Sod 3.375 gm/ Sodium Chloride) 50 mls @ 100 mls/hr IV Q6H [facility] Last Infusion: 07/02/21 04:03 Dose: Infused Documented by: Vancomycin HCl 1,250 mg/ (Sodium Chloride) 250 mls @ 166.667 mls/hr IV Q24H [facility] Last Infusion: 07/01/21 19:10 Dose: Infused Documented by: Levothyroxine Sodium (Levothyroxine Sodium 25 Mcg Tablet) 25 mcg PO DAILY [facility] Last Admin: 07/01/21 09:24 Dose: 25 mcg Documented by: Metformin HCl (Metformin Hcl 500 Mg Tablet) 500 mg PO BIDWM [facility] Last Admin: 07/01/21 18:56 Dose: 500 mg Documented by: Metoprolol Succinate (Metoprolol Succinate Er 100 Mg Tab.Er.24h) 100 mg PO DAILY [facility]; Protocol Last Admin: 07/01/21 09:05 Dose: 100 mg Documented by: Mirtazapine (Mirtazapine 7.5 Mg Tablet) 7.5 mg PO BEDTIME [facility] Last Admin: 07/01/21 21:11 Dose: 7.5 mg Documented by: Morphine Sulfate (Morphine Sulfate 4 Mg/Ml Cartridge) 2 mg IVPUSH Q4H PRN; Protocol PRN Reason: Pain, Severe (Pain Scale 7-10) Pharmacy Consult (Consult Rx Perform Med Rec) 1 each MISCELLANE ONCE PRN PRN Reason: Consult order Pharmacy Consult (Consult Rx Vancomycin Dosing) 1 each MISCELLANE DAILY PRN PRN Reason: Consult order Sodium Chloride (0.9 % Sodium Chloride Flush 3 Ml Syringe) 3 ml IVFLUSH QSHIFT [facility] Last Admin: 07/02/21 06:18 Dose: Not Given Documented by: Timolol Maleate (Timolol Maleate 0.5 % [place]ph [place] 5 Ml Drbtl) 1 drop EYE-LEFT DAILY [facility] Last Admin: 07/01/21 09:24 Dose: 1 drop Documented by: Vitamin D (Cholecalciferol (Vitamin D3) 25 Mcg Tablet) 25 mcg PO DAILY [facility] Last Admin: 07/01/21 09:05 Dose: 25 mcg Documented by: Time Spent With Patient Time: Total time spent is greater than 50% in coordination of care (as documented) at patient's floor/unit and/or counseling patient: Time with patient: 15 - 24 minutes Quality Stroke Does the patient have a stroke diagnosis?: No VTE Prior VTE?: No VTE Risk Level:: Medical - moderate - high VTE Device Contraindication: Treatment Not Indicated VTE Drug Contraindication: N/A - Med Ordered
[2021-07-02] MEDS: metFORMIN HCl 500 MG TABLET PO ×2 (09:13→17:48)
[2021-07-02] MEDS: Metoprolol Succinate ER 100 MG TAB.ER.24H PO (09:13)
[2021-07-02] MEDS: Cholecalciferol (Vitamin D3) 25 MCG TABLET PO (09:13)
[2021-07-02] MEDS: amLODIPine Besylate 10 MG TABLET PO (09:13)
[2021-07-02] MEDS: Amiodarone HCL 200 MG TABLET PO (09:13)
[2021-07-02 09:36] LABS: Glucose, Whole Blood 109 mg/dL (60-115)
--- NOTE | 2021-07-02 09:50 | HO.PM.IMPN ---
Subjective Subjective Date of Service: 07/02/21 Interval History: follow up on diabetic foot infection and possible osteomylitis Review of Systems no fever, no pain in the foot Physical Exam Vital Signs: Vital Signs: Last Vital Signs Temp 97.8 F 07/02/21 06:51 Pulse 52 07/02/21 06:51 Resp 14 07/02/21 06:51 BP 140/61 H 07/02/21 06:51 Pulse Ox 96 07/02/21 06:51 BMI result Body Mass Index 23.9 Const: Other: Constitutional: Alert, in no distress, Mental Status: Oriented to person, place and time. Eyes: Pupils are equal, round and reactive to light. Ear, Nose and Throat: Oropharynx clear Respiratory: Clear to auscultation. No wheezing, rales or rhonchi. Cardiovascular: S1 S2 regular. No murmurs, rubs or gallops. Gastrointestinal: Abdomen soft, non-tender, non-distended. Normal bowel sounds.? Neurologic: Cranial nerves II-XII grossly intact. No focal neurological deficits. Moves all extremities spontaneously.? Skin: Musculoskeletal: No cyanosis or clubbing. Psychiatric: Normal mood and affect? Objective Data Active Medications Acetaminophen (Acetaminophen 325 Mg Tablet) 650 mg PO Q6H PRN PRN Reason: Pain, Mild (Pain Scale 1-3) Amiodarone HCl (Amiodarone Hcl 200 Mg Tablet) 200 mg PO DAILY [facility] Last Admin: 07/02/21 09:13 Dose: 200 mg Documented by: CORAL Amlodipine Besylate (Amlodipine Besylate 10 Mg Tablet) 10 mg PO DAILY [facility]; Protocol Last Admin: 07/02/21 09:13 Dose: 10 mg Documented by: CORAL Atorvastatin Calcium (Atorvastatin Calcium 10 Mg Tablet) 10 mg PO BEDTIME [facility] Last Admin: 07/01/21 21:14 Dose: 10 mg Documented by: ANDRIA Piperacillin Sod/Tazobactam (Sod 3.375 gm/ Sodium Chloride) 50 mls @ 100 mls/hr IV Q6H [facility] Last Admin: 07/02/21 09:09 Dose: 100 mls/hr Documented by: CORAL Vancomycin HCl 1,250 mg/ (Sodium Chloride) 250 mls @ 166.667 mls/hr IV Q24H [facility] Last Infusion: 07/01/21 19:10 Dose: 0 mls/hr Documented by: ANDRIA Levothyroxine Sodium (Levothyroxine Sodium 25 Mcg Tablet) 25 mcg PO DAILY [facility] Last Admin: 07/01/21 09:24 Dose: 25 mcg Documented by: JEROME Metformin HCl (Metformin Hcl 500 Mg Tablet) 500 mg PO BIDWM [facility] Last Admin: 07/02/21 09:13 Dose: 500 mg Documented by: CORAL Metoprolol Succinate (Metoprolol Succinate Er 100 Mg Tab.Er.24h) 100 mg PO DAILY [facility]; Protocol Last Admin: 07/02/21 09:13 Dose: 100 mg Documented by: CORAL Mirtazapine (Mirtazapine 7.5 Mg Tablet) 7.5 mg PO BEDTIME [facility] Last Admin: 07/01/21 21:11 Dose: 7.5 mg Documented by: ANDRIA Morphine Sulfate (Morphine Sulfate 4 Mg/Ml Cartridge) 2 mg IVPUSH Q4H PRN; Protocol PRN Reason: Pain, Severe (Pain Scale 7-10) Pharmacy Consult (Consult Rx Perform Med Rec) 1 each MISCELLANE ONCE PRN PRN Reason: Consult order Pharmacy Consult (Consult Rx Vancomycin Dosing) 1 each MISCELLANE DAILY PRN PRN Reason: Consult order Sodium Chloride (0.9 % Sodium Chloride Flush 3 Ml Syringe) 3 ml IVFLUSH QSHIFT [facility] Last Admin: 07/02/21 09:14 Dose: Not Given Documented by: CORAL Non-Admin Reason: Med Not Available Timolol Maleate (Timolol Maleate 0.5 % Oph [place] 5 Ml Drbtl) 1 drop EYE-LEFT DAILY [facility] Last Admin: 07/01/21 09:24 Dose: 1 drop Documented by: JEROME Vitamin D (Cholecalciferol (Vitamin D3) 25 Mcg Tablet) 25 mcg PO DAILY [facility] Last Admin: 07/02/21 09:13 Dose: 25 mcg Documented by: CORAL Labs CBC & Chem 7: 06/30/21 15:19 07/02/21 06:35 Labs: Laboratory Results - last 24 hr 07/01/21 07/02/21 07/02/21 18:09 06:35 07:13 Estim Creat Clear Calc 49.0 Estimated GFR 56 POC Glucose 132 H 75 07/02/21 09:32 Estim Creat Clear Calc Estimated GFR POC Glucose 109 Microbiology Microbiology Results: Microbiology 06/30/21 15:19 Blood Culture - Preliminary Blood - Venous No growth after 24 hours. 06/30/21 15:15 Blood Culture - Preliminary Blood - Venous No growth after 24 hours. Assessment and Plan (1) Abscess: Status: Acute (2) Cellulitis: Status: Acute (3) Osteomyelitis of foot: Status: Acute Plan 76-year-old male with a past medical history of diabetes who presents to the hospital with complaints of right lower extremity redness and drainage at the site of previous amputated toe, his is vague on how long this is been an oingoing. The foot is obviously draining purulent discharge with what appears to be an abscess. CRP is over 2), ESR 92.?Xray of the foot shows?Arthritis and subluxation of the second MTP joint questionable for infection/septic arthritis.?? 1. Right foot abscess, possible septic arthritis and acute osteomylitis as detailed below. MRI : 1. Resection of the 3rd phalanx with soft tissue ulceration dorsally and an underlying abscess formation ventral to the 3rd metatarsal head measuring up to 4.7 cm. This extends to the plantar surface of the metatarsal head with probable extension to the plantar soft tissue surface. Acute osteomyelitis within the 3rd metatarsal. 2. Acute osteomyelitis within the 2nd metatarsal head with a joint effusion which could indicate 2nd metatarsophalangeal septic arthritis. 3. Acute osteomyelitis within the 4th metatarsal head and 4th proximal phalanx without an associated joint effusion.? Will discuss with surgery again to see if further intervention is needed IV Abx (Vanco +Zosyn) ID consult for further inpuat 2. Diabetes--Sliding scale insulin, hold Metformin 3. Chronic Afib--continue Metoprolol and Amiodarone, Eliquis for stroke prevention--hold eliquis in case he will need procedure 4. HLD--Statin 5. HTN--Norvasc, Metoprolol DVT--hold eliquis, in the event he needs procedure Need for inpatient: Needs IV Abx for acute osteomylitis of the foot, further testing with MRI and will likley need surgical intervenion Quality Stroke Does the patient have a stroke diagnosis?: No VTE Prior VTE?: No VTE Risk Level:: Medical - moderate - high VTE Device Contraindication: Treatment Not Indicated VTE Drug Contraindication: N/A - Med Ordered
[2021-07-02] MEDS: Levothyroxine Sodium 25 MCG TABLET PO ×2 (10:08→10:33)
[2021-07-02] MEDS: timoloL maleate 0.5 % Oph Sol 5 ML DRBTL 1 DROP EYE-LEFT (10:09)
--- NOTE | 2021-07-02 10:38 | PC.NURSE ---
foot re dressed. moderate amount of serosanguenous drainage. light pink cellulitic skin to mid metatarsals . pt has been resting, did am care himself
--- NOTE | 2021-07-02 11:16 | PHA.PROG ---
Admission Date/Time: June 30, 2021 16:59 Indication: Right foot abscess, possible septic arthritis. Weight in k.5 kg Adjusted body weight in K.8 kg [place] body weight in K.7 kg Obesity Dosing Indication % IBW: 103% Serum Creatinine - Last 168 Hours 06/30/21 07/01/21 07/02/21 15:19 08:13 06:35 Creatinine 1.22 1.27 1.24 Estimated CrCl and GFR - Last 168 Hours 06/30/21 07/01/21 07/02/21 15:19 08:13 06:35 Estim Creat Clear Calc 49.9 47.9 49.0 Estimated GFR 57 55 56 Vancomycin Loading Dose: N/A Current Vancomycin Dosing Regimen: 1250 mg Q24H Date and Time for next Vancomycin Level to be drawn: 07/03 @ 1400 Pharmacist Comments on Vancomycin Plan: Renal function is stable. Pharmacy will continue to monitor daily. Continue current regimen. Expected AUC 546 with a trough of 16.7. Isi Sumner PharmD Vancomycin dosing will take advantage of [employer] as a clinical decision support tool that uses Bayesian modeling to calculate individual patient's pharmacokinetic parameters and forecast the patient's drug concentration time course with the target goal AUC 24 range of 400 - 600 mg/L/hr.
[2021-07-02 13:34] LABS: Glucose, Whole Blood 78 mg/dL (60-115)
[2021-07-02 15:00] VITALS: BP 117/58; PULSE 94; RESP 18; TEMP 36.6; O2SAT 92
[2021-07-02 15:55] VITALS: BP 170/84; PULSE 76; RESP 18; TEMP 36.6; O2SAT 97
[2021-07-02 16:00] VITALS: RESP 18
[2021-07-02] MEDS: vancomycin HCL 1,250 MG in 0.9 % Sodium Chloride 250 ML 166.67 MG IV (16:24)
[2021-07-02] MEDS: 0.9 % Sodium Chloride Flush 3 ML SYRINGE IVFLUSH (16:25)
[2021-07-02 16:40] LABS: Glucose, Whole Blood 109 mg/dL (60-115)
[2021-07-02 19:47] VITALS: BP 176/74; PULSE 55; RESP 16; TEMP 36.8; O2SAT 95
[2021-07-02 20:06] LABS: Glucose, Whole Blood 93 mg/dL (60-115)
[2021-07-02] MEDS: Atorvastatin Calcium 10 MG TABLET PO (21:33)
[2021-07-02] MEDS: Mirtazapine 7.5 MG TABLET PO (21:34)
[2021-07-02 23:23] VITALS: BP 124/50; PULSE 98; RESP 18; TEMP 36.2; O2SAT 99
[2021-07-03] VITALS (7 sets, daily range): BP systolic 131–171; BP diastolic 59–74; PULSE 52–70; RESP 17–18; TEMP 36.2–37.1; O2SAT 94–99
[2021-07-03] MEDS: 0.9 % Sodium Chloride Flush 3 ML SYRINGE IVFLUSH ×3 (00:20→20:18)
[2021-07-03] MEDS: Piperacillin Sodium/Tazobactam 3.375 GM in 0.9 % Sodium Chloride 50 ML IV ×2 (03:51→09:21)
[2021-07-03] MEDS: Levothyroxine Sodium 25 MCG TABLET PO (06:10)
[2021-07-03 06:26] LABS: Creatinine Clr Calc Pharmacy 44.1; Estimated Glomerular Filt Rate 50
[2021-07-03 07:56] LABS: Glucose, Whole Blood 81 mg/dL (60-115)
--- NOTE | 2021-07-03 08:39 | P.PNGS_ITS ---
Subjective Subjective Date of Service: 07/03/21 Interval history: Denies complaints Says he feels well Physical Exam Vital Signs: Vital Signs: Last Vital Signs Temp 97.6 F 07/03/21 07:21 Pulse 52 07/03/21 07:21 Resp 18 07/03/21 07:21 BP 151/65 H 07/03/21 07:21 Pulse Ox 95 07/03/21 07:21 BMI result Body Mass Index 23.9 Const: General: comfortable and no acute distress GI: Palpation (GI): Soft to palpation and nontender Extrem: Other: Right foot with I&D site on the 3rd toe amputation site, clean, no active purulence Objective Data Active Medications Acetaminophen (Acetaminophen 325 Mg Tablet) 650 mg PO Q6H PRN PRN Reason: Pain, Mild (Pain Scale 1-3) Amiodarone HCl (Amiodarone Hcl 200 Mg Tablet) 200 mg PO DAILY [facility] Last Admin: 07/02/21 09:13 Dose: 200 mg Documented by: CORAL Amlodipine Besylate (Amlodipine Besylate 10 Mg Tablet) 10 mg PO DAILY [facility]; Protocol Last Admin: 07/02/21 09:13 Dose: 10 mg Documented by: CORAL Atorvastatin Calcium (Atorvastatin Calcium 10 Mg Tablet) 10 mg PO BEDTIME [facility] Last Admin: 07/02/21 21:33 Dose: 10 mg Documented by: VALERIE Piperacillin Sod/Tazobactam (Sod 3.375 gm/ Sodium Chloride) 50 mls @ 100 mls/hr IV Q6H [facility] Last Infusion: 07/03/21 04:24 Dose: 0 mls/hr Documented by: RANCHO Vancomycin HCl 1,250 mg/ (Sodium Chloride) 250 mls @ 166.667 mls/hr IV Q24H [facility] Last Infusion: 07/02/21 19:38 Dose: 0 mls/hr Documented by: VALERIE Levothyroxine Sodium (Levothyroxine Sodium 25 Mcg Tablet) 25 mcg PO DAILY@0600 [facility] Last Admin: 07/03/21 06:10 Dose: 25 mcg Documented by: RANCHO Metformin HCl (Metformin Hcl 500 Mg Tablet) 500 mg PO BIDWM [facility] Last Admin: 07/02/21 17:48 Dose: 500 mg Documented by: VALERIE Metoprolol Succinate (Metoprolol Succinate Er 100 Mg Tab.Er.24h) 100 mg PO DAILY [facility]; Protocol Last Admin: 07/02/21 09:13 Dose: 100 mg Documented by: CORAL Mirtazapine (Mirtazapine 7.5 Mg Tablet) 7.5 mg PO BEDTIME [facility] Last Admin: 07/02/21 21:34 Dose: 7.5 mg Documented by: VALERIE Morphine Sulfate (Morphine Sulfate 4 Mg/Ml Cartridge) 2 mg IVPUSH Q4H PRN; Protocol PRN Reason: Pain, Severe (Pain Scale 7-10) Pharmacy Consult (Consult Rx Perform Med Rec) 1 each MISCELLANE ONCE PRN PRN Reason: Consult order Pharmacy Consult (Consult Rx Vancomycin Dosing) 1 each MISCELLANE DAILY PRN PRN Reason: Consult order Sodium Chloride (0.9 % Sodium Chloride Flush 3 Ml Syringe) 3 ml IVFLUSH QSHIFT [facility] Last Admin: 07/03/21 00:20 Dose: 3 ml Documented by: RANCHO Timolol Maleate (Timolol Maleate 0.5 % Oph [place] 5 Ml Drbtl) 1 drop EYE-LEFT DAILY [facility] Last Admin: 07/02/21 10:09 Dose: 1 drop Documented by: CORAL Vitamin D (Cholecalciferol (Vitamin D3) 25 Mcg Tablet) 25 mcg PO DAILY [facility] Last Admin: 07/02/21 09:13 Dose: 25 mcg Documented by: OCRAL Labs CBC & Chem 7: 06/30/21 15:19 07/03/21 05:38 Labs: Laboratory Results - last 24 hr 07/02/21 07/02/21 07/02/21 09:32 13:14 16:08 Estim Creat Clear Calc Estimated GFR POC Glucose 109 78 109 07/02/21 07/03/21 07/03/21 19:52 05:38 07:19 Estim Creat Clear Calc 44.1 Estimated GFR 50 POC Glucose 93 81 Microbiology Microbiology Results: Microbiology 06/30/21 15:19 Blood Culture - Preliminary Blood - Venous No growth after 48 hours. 06/30/21 15:15 Blood Culture - Preliminary Blood - Venous No growth after 48 hours. Procedures Date of Service Date of Service: 07/03/21 Progress Note: A&P Assessment and plan (1) Abscess: Status: Acute Assessment and Plan: Status post I and D by Dr. Oscar I&D site clean Dressings changed Continue IV antibiotics Wound care Fall Risk Details Current Medications: Current Medications Acetaminophen (Acetaminophen 325 Mg Tablet) 650 mg PO Q6H PRN PRN Reason: Pain, Mild (Pain Scale 1-3) Amiodarone HCl (Amiodarone Hcl 200 Mg Tablet) 200 mg PO DAILY [facility] Last Admin: 07/02/21 09:13 Dose: 200 mg Documented by: Amlodipine Besylate (Amlodipine Besylate 10 Mg Tablet) 10 mg PO DAILY [facility]; Protocol Last Admin: 07/02/21 09:13 Dose: 10 mg Documented by: Atorvastatin Calcium (Atorvastatin Calcium 10 Mg Tablet) 10 mg PO BEDTIME [facility] Last Admin: 07/02/21 21:33 Dose: 10 mg Documented by: Piperacillin Sod/Tazobactam (Sod 3.375 gm/ Sodium Chloride) 50 mls @ 100 mls/hr IV Q6H [facility] Last Infusion: 07/03/21 04:24 Dose: Infused Documented by: Vancomycin HCl 1,250 mg/ (Sodium Chloride) 250 mls @ 166.667 mls/hr IV Q24H [facility] Last Infusion: 07/02/21 19:38 Dose: Infused Documented by: Levothyroxine Sodium (Levothyroxine Sodium 25 Mcg Tablet) 25 mcg PO DAILY@0600 [facility] Last Admin: 07/03/21 06:10 Dose: 25 mcg Documented by: Metformin HCl (Metformin Hcl 500 Mg Tablet) 500 mg PO BIDWM [facility] Last Admin: 07/02/21 17:48 Dose: 500 mg Documented by: Metoprolol Succinate (Metoprolol Succinate Er 100 Mg Tab.Er.24h) 100 mg PO DAILY [facility]; Protocol Last Admin: 07/02/21 09:13 Dose: 100 mg Documented by: Mirtazapine (Mirtazapine 7.5 Mg Tablet) 7.5 mg PO BEDTIME [facility] Last Admin: 07/02/21 21:34 Dose: 7.5 mg Documented by: Morphine Sulfate (Morphine Sulfate 4 Mg/Ml Cartridge) 2 mg IVPUSH Q4H PRN; Protocol PRN Reason: Pain, Severe (Pain Scale 7-10) Pharmacy Consult (Consult Rx Perform Med Rec) 1 each MISCELLANE ONCE PRN PRN Reason: Consult order Pharmacy Consult (Consult Rx Vancomycin Dosing) 1 each MISCELLANE DAILY PRN PRN Reason: Consult order Sodium Chloride (0.9 % Sodium Chloride Flush 3 Ml Syringe) 3 ml IVFLUSH QSHIFT [facility] Last Admin: 07/03/21 00:20 Dose: 3 ml Documented by: Timolol Maleate (Timolol Maleate 0.5 % Oph [place] 5 Ml Drbtl) 1 drop EYE-LEFT DAILY [facility] Last Admin: 07/02/21 10:09 Dose: 1 drop Documented by: Vitamin D (Cholecalciferol (Vitamin D3) 25 Mcg Tablet) 25 mcg PO DAILY [facility] Last Admin: 07/02/21 09:13 Dose: 25 mcg Documented by: Time Spent With Patient Time: Total time spent is greater than 50% in coordination of care (as documented) at patient's floor/unit and/or counseling patient: Time with patient: 15 - 24 minutes Quality Stroke Does the patient have a stroke diagnosis?: No VTE Prior VTE?: No VTE Risk Level:: Medical - moderate - high VTE Device Contraindication: Treatment Not Indicated VTE Drug Contraindication: N/A - Med Ordered
--- NOTE | 2021-07-03 09:00 | HO.PM.IMPN ---
Subjective Subjective Date of Service: 07/04/21 Interval History: CC: follow up on diabetic foot infection and possible osteomylitis Interval history: No change in pain, no fever Review of Systems no fever, no pain in the foot Physical Exam Vital Signs: Vital Signs: Last Vital Signs Temp 97.6 F 07/03/21 07:21 Pulse 52 07/03/21 07:21 Resp 18 07/03/21 07:21 BP 151/65 H 07/03/21 07:21 Pulse Ox 95 07/03/21 07:21 BMI result Body Mass Index 23.9 Const: Other: Constitutional: Alert, in no distress, Mental Status: Oriented to person, place and time. Eyes: Pupils are equal, round and reactive to light. Ear, Nose and Throat: Oropharynx clear Respiratory: Clear to auscultation. No wheezing, rales or rhonchi. Cardiovascular: S1 S2 regular. No murmurs, rubs or gallops. Gastrointestinal: Abdomen soft, non-tender, non-distended. Normal bowel sounds.? Neurologic: Cranial nerves II-XII grossly intact. No focal neurological deficits. Moves all extremities spontaneously.? Skin: Musculoskeletal: No cyanosis or clubbing. Psychiatric: Normal mood and affect? Objective Data Active Medications Acetaminophen (Acetaminophen 325 Mg Tablet) 650 mg PO Q6H PRN PRN Reason: Pain, Mild (Pain Scale 1-3) Amiodarone HCl (Amiodarone Hcl 200 Mg Tablet) 200 mg PO DAILY [facility] Last Admin: 07/02/21 09:13 Dose: 200 mg Documented by: CORAL Amlodipine Besylate (Amlodipine Besylate 10 Mg Tablet) 10 mg PO DAILY [facility]; Protocol Last Admin: 07/02/21 09:13 Dose: 10 mg Documented by: CORAL Atorvastatin Calcium (Atorvastatin Calcium 10 Mg Tablet) 10 mg PO BEDTIME [facility] Last Admin: 07/02/21 21:33 Dose: 10 mg Documented by: VALERIE Piperacillin Sod/Tazobactam (Sod 3.375 gm/ Sodium Chloride) 50 mls @ 100 mls/hr IV Q6H [facility] Last Infusion: 07/03/21 04:24 Dose: 0 mls/hr Documented by: RANCHO Vancomycin HCl 1,250 mg/ (Sodium Chloride) 250 mls @ 166.667 mls/hr IV Q24H [facility] Last Infusion: 07/02/21 19:38 Dose: 0 mls/hr Documented by: VALERIE Levothyroxine Sodium (Levothyroxine Sodium 25 Mcg Tablet) 25 mcg PO DAILY@0600 [facility] Last Admin: 07/03/21 06:10 Dose: 25 mcg Documented by: RANCHO Metformin HCl (Metformin Hcl 500 Mg Tablet) 500 mg PO BIDWM [facility] Last Admin: 07/02/21 17:48 Dose: 500 mg Documented by: VALERIE Metoprolol Succinate (Metoprolol Succinate Er 100 Mg Tab.Er.24h) 100 mg PO DAILY [facility]; Protocol Last Admin: 07/02/21 09:13 Dose: 100 mg Documented by: CORAL Mirtazapine (Mirtazapine 7.5 Mg Tablet) 7.5 mg PO BEDTIME [facility] Last Admin: 07/02/21 21:34 Dose: 7.5 mg Documented by: VALERIE Morphine Sulfate (Morphine Sulfate 4 Mg/Ml Cartridge) 2 mg IVPUSH Q4H PRN; Protocol PRN Reason: Pain, Severe (Pain Scale 7-10) Pharmacy Consult (Consult Rx Perform Med Rec) 1 each MISCELLANE ONCE PRN PRN Reason: Consult order Pharmacy Consult (Consult Rx Vancomycin Dosing) 1 each MISCELLANE DAILY PRN PRN Reason: Consult order Sodium Chloride (0.9 % Sodium Chloride Flush 3 Ml Syringe) 3 ml IVFLUSH QSHIFT [facility] Last Admin: 07/03/21 00:20 Dose: 3 ml Documented by: RANCHO Timolol Maleate (Timolol Maleate 0.5 % Oph [place] 5 Ml Drbtl) 1 drop EYE-LEFT DAILY [facility] Last Admin: 07/02/21 10:09 Dose: 1 drop Documented by: CORAL Vitamin D (Cholecalciferol (Vitamin D3) 25 Mcg Tablet) 25 mcg PO DAILY [facility] Last Admin: 07/02/21 09:13 Dose: 25 mcg Documented by: CORAL Labs CBC & Chem 7: 06/30/21 15:19 07/04/21 05:27 Labs: Laboratory Results - last 24 hr 06/30/21 07/01/21 07/02/21 15:19 08:13 06:35 Creatinine 1.22 1.27 1.24 Estim Creat Clear Calc Estimated GFR POC Glucose 07/02/21 07/02/21 07/02/21 09:32 13:14 16:08 Creatinine Estim Creat Clear Calc Estimated GFR POC Glucose 109 78 109 07/02/21 07/03/21 07/03/21 19:52 05:38 07:19 Creatinine 1.38 Estim Creat Clear Calc 44.1 Estimated GFR 50 POC Glucose 93 81 Microbiology Microbiology Results: Microbiology 06/30/21 15:19 Blood Culture - Preliminary Blood - Venous No growth after 48 hours. 06/30/21 15:15 Blood Culture - Preliminary Blood - Venous No growth after 48 hours. Assessment and Plan (1) Osteomyelitis of foot: Status: Acute (2) Cellulitis: Status: Acute (3) Diabetic foot ulcer: Status: Acute (4) Type 2 diabetes mellitus with hyperglycemia: Status: Acute Plan 76-year-old male with a past medical history of diabetes who presents to the hospital with complaints of right lower extremity redness and drainage at the site of previous amputated toe, his is vague on how long this is been an oingoing. The foot is obviously draining purulent discharge with what appears to be an abscess. CRP is over 2), ESR 92.?Xray of the foot shows?Arthritis and subluxation of the second MTP joint questionable for infection/septic arthritis.?? 1. Right foot abscess, possible septic arthritis and acute osteomylitis as detailed below. MRI : 1. Resection of the 3rd phalanx with soft tissue ulceration dorsally and an underlying abscess formation ventral to the 3rd metatarsal head measuring up to 4.7 cm. This extends to the plantar surface of the metatarsal head with probable extension to the plantar soft tissue surface. Acute osteomyelitis within the 3rd metatarsal. 2. Acute osteomyelitis within the 2nd metatarsal head with a joint effusion which could indicate 2nd metatarsophalangeal septic arthritis. 3. Acute osteomyelitis within the 4th metatarsal head and 4th proximal phalanx without an associated joint effusion.? Dr. Oscar has done I and D IV Abx (Vanco +Zosyn) ID to make final recommendation on choice of Abx,likely will need IV 2. Diabetes--Sliding scale insulin, hold Metformin 3. Chronic Afib--continue Metoprolol and Amiodarone, Eliquis for stroke prevention--hold eliquis in case he will need procedure 4. HLD--Statin 5. HTN--Norvasc, Metoprolol DVT--restart eliquis Need for inpatient: Needs IV Abx for acute osteomylitis of the foot, will need PICC and for discharge Quality Stroke Does the patient have a stroke diagnosis?: No VTE Prior VTE?: No VTE Risk Level:: Medical - moderate - high VTE Device Contraindication: Treatment Not Indicated VTE Drug Contraindication: N/A - Med Ordered
--- NOTE | 2021-07-03 09:09 | HE.PHANOTE ---
Patient has osteo, continue zosyn for now, id for another consult?
[2021-07-03] MEDS: amLODIPine Besylate 10 MG TABLET PO (09:20)
[2021-07-03] MEDS: Cholecalciferol (Vitamin D3) 25 MCG TABLET PO (09:20)
[2021-07-03] MEDS: Amiodarone HCL 200 MG TABLET PO (09:20)
[2021-07-03] MEDS: metFORMIN HCl 500 MG TABLET PO (09:21)
[2021-07-03] MEDS: timoloL maleate 0.5 % Oph Sol 5 ML DRBTL 1 DROP EYE-LEFT (09:25)
--- NOTE | 2021-07-03 09:32 | P.CDIC_ITS ---
CDI Concurrent Query Documentation Clarification: PHYSICIAN'S DOCUMENTATION REQUEST Date of Query: 07/03/21 0933 Patient Name: Matheus Romo Admit Date: 06/30/21 Dear Doctor, A review of the medical record indicates additional documentation may be needed. Please review below and update the documentation accordingly. Clinical Indicators: Risk Factors/Clinical Indicators/Treatments PN: Cellulitis/abscess, Diabetic foot ulcer, acute osteomyelitis of right lower limb. S/P amputation toe. Foot obviously draining purulent discharge with what appears to be an abscess. CRP is over 2 IV Vancomycin, Zosyn and IV fluids. Please clarify the relationship between these conditions: Cellulitis due to/associated with Diabetic foot ulcer: * Yes, [ ] is related to / associated with / due to [ ] * No, [ ] is not related to / associated with / due to [ ] * Unable to determine Use of terms such as suspected, likely, concern for, or probable (associated with a specific diagnosis that is being evaluated, monitored, or treated as if it exists) are acceptable and can be coded in the inpatient setting, when documented at the time of discharge. Thank you, Joselyn Worrell [facility], CDIS Extension: [phone] Please use your independent medical judgment in providing your response. THIS QUERY IS PART OF THE PERMANENT MEDICAL RECORD Provider Response: Other Other Diagnosis: cellulitis associated with diabetes
--- NOTE | 2021-07-03 12:35 | HO.PICC ---
PICC Line Insertion NPICC Diagnosis: OSTEOMYELITIS Indication: PRISON IV ANTIBIOTICS Pertinent Labs: REVIEWED Technique: Following informed consent including risks, benefits and alternatives and using sterile technique including cap and mask, sterile gown, glove and drape, the RIGHT arm was prepped and draped in the usual sterile fashion of full barrier technique with CHG. Following completion of Vivian Protocol the skin and soft tissues were anesthetized with 1% Lidocaine plain. Using ultrasound guidance, BASILIC vein access was obtained IN SINGLE ATTEMPT BY THIS RN; PRIOR UNSUCCESSFUL ATTEMPT TO RUE CEPHALIC VEIN. Over an 0.018 wire through peel-away sheath, a 4-SETSWANA, SINGLE LUMEN, PASV PICC line was positioned. Catheter length is 37 CM internal length, 0 CM external length, for a total trimmed length of 37 CM. The procedure was performed in [facility]. Tip verification was performed by Meliza West with Sherlock 3CG. Tip located in SVC. Ultrasound was used to document vein patency and for needle entry. A formal ultrasound picture and cardiac rhythm strip was recorded. [employer] has released the line for use and it is currently dressed with a StatLock, Tegaderm, and CHG disc. Verification has been performed for blood return and line patency. Arm Circumference: 27 CM Equipment: Revert.IO POWERPICC SOLO Catheter Type: 4-SETSWANA, SINGLE LUMEN, PASV Lot #: [id number]
[2021-07-03 12:48] LABS: Glucose, Whole Blood 90 mg/dL (60-115)
[2021-07-03 15:26] LABS: Glucose, Whole Blood 91 mg/dL (60-115)
--- NOTE | 2021-07-03 15:57 | PM.EVENT ---
Event Note Date of Service: 07/08/21 Event Note: would give po Levaquin and Doxycycline for 14 days
--- NOTE | 2021-07-03 16:01 | PM.IDPN ---
Subjective Subjective Date of Service: 07/03/21 Critical Care Time (minutes): 15 Comment: He has ongoing erythema foot with 3rd metatarsal osteomyelitis This is not curable antibiotics Objective Data Labs CBC & Chem 7: 06/30/21 15:19 07/03/21 05:38 Labs: Laboratory Results - last 24 hr 07/02/21 07/02/21 07/03/21 16:08 19:52 05:38 Creatinine 1.38 Estim Creat Clear Calc 44.1 Estimated GFR 50 POC Glucose 109 93 07/03/21 07/03/21 07/03/21 07:19 12:43 15:22 Creatinine Estim Creat Clear Calc Estimated GFR POC Glucose 81 90 91 Microbiology Microbiology Results: Microbiology 06/30/21 15:19 Blood - Venous Blood Culture - Preliminary No growth after 48 hours. 06/30/21 15:15 Blood - Venous Blood Culture - Preliminary No growth after 48 hours. Physical Exam Vital Signs: Vital Signs: Last Vital Signs Temp 98.8 F 07/03/21 14:47 Pulse 66 07/03/21 14:47 Resp 18 07/03/21 14:47 BP 131/63 07/03/21 14:47 Pulse Ox 99 07/03/21 14:47 BMI result Body Mass Index 23.9 Extrem: Other: redness foot Assessment and Plan Assessment and plan (1) Osteomyelitis of foot: Problem details: affected bone still in place Status: Acute Assessment and Plan: po Levaquin and IV Vancomycin for six weeks Time Spent With Patient Time: Total time spent is greater than 50% in coordination of care (as documented) at patient's floor/unit and/or counseling patient: Time with patient: less than 15 minutes
--- NOTE | 2021-07-03 16:10 | MHC.CM.PN ---
nurse casework manager note electronic medcial record reviewed along with casework manager case discussed with staff nurse faustino hospitlaist and patient he informed me he has home iv abx in the past past and his did it , referals had been iniated and finalized abx sent via all[facility] to [facility] , also found out that [facility] patient had in the past but no lo nger active and no nurse availability. iniated other referrals recoved a call from patient monster she verbalized anxiety she does not have cell phone to accept video teach and is unable to come to hospital for teach , she alos expressed maybe considering str wanted annette benitez at [facility] when ioffered other facilities she declined at this time and wanted to discuss more with patient and family members , i informed her patient would be discharged tomorrow and please call me back today with a answer or first thing tomorrow am DISCHARGE PLAN 1. HOME WITH [facility]NA - NEW REFERRASL TO [facility] (ALSOMCALLED BUT NO ANSWER), [facility] , [facility], [facility], [facility] CONTRACTED AGENCIES IV INVANTZ 1 GM QD 41 DAYS AND [facility] DRESSINGS QD VS REHAB AT THIS TIME WOULD ONLY ALLOW ME TO ONLY MAKE THE FOLLOWING REFERRALS ANNETTE FLEMING AT [facility] - SHE WILL TALKE MORE WITH HER FAMILY
[2021-07-03] MEDS: Mirtazapine 7.5 MG TABLET PO (20:18)
[2021-07-03] MEDS: Atorvastatin Calcium 10 MG TABLET PO (20:18)
[2021-07-03 20:37] LABS: Glucose, Whole Blood 105 mg/dL (60-115)
[2021-07-04 03:58] VITALS: BP 134/63; PULSE 56; RESP 18; TEMP 36.5; O2SAT 98
[2021-07-04 06:13] LABS: Creatinine Clr Calc Pharmacy 48.3; Estimated Glomerular Filt Rate 55
[2021-07-04] MEDS: Levothyroxine Sodium 25 MCG TABLET PO (06:27)
[2021-07-04 07:27] VITALS: BP 154/62; PULSE 59; RESP 18; TEMP 36; O2SAT 98
[2021-07-04 07:56] LABS: Glucose, Whole Blood 88 mg/dL (60-115)
--- NOTE | 2021-07-04 08:03 | HE.PHANOTE ---
Vancomycin Dosing Addendum Contacted Dr. Martinez to continue antibiotics. Dr. Augustine recommended PO levaquin and IV vancomycin x 6 weeks. Last vancomycin dose on 07/02/21. Continued vancomycin regimen of 1250 mg q24h for predicted trough of 551. next level 07/06/21 @0600 ( before shift change).
--- NOTE | 2021-07-04 08:38 | P.PNIM_ITS ---
Subjective Subjective Date of Service: 07/04/21 Interval History: CC: follow up on diabetic foot infection and osteomylitis of multiple bones Interval history: No change in pain, no fever Physical Exam Vital Signs: Vital Signs: Last Vital Signs Temp 96.8 F 07/04/21 07:27 Pulse 59 07/04/21 07:27 Resp 18 07/04/21 07:27 BP 154/62 H 07/04/21 07:27 Pulse Ox 98 07/04/21 07:27 BMI result Body Mass Index 23.9 Const: Other: Constitutional: Alert, in no distress, Mental Status: Oriented to person, place and time. Eyes: Pupils are equal, round and reactive to light. Ear, Nose and Throat: Oropharynx clear Respiratory: Clear to auscultation. No wheezing, rales or rhonchi. Cardiovascular: S1 S2 regular. No murmurs, rubs or gallops. Gastrointestinal: Abdomen soft, non-tender, non-distended. Normal bowel sounds.? Neurologic: Cranial nerves II-XII grossly intact. No focal neurological deficits. Moves all extremities spontaneously.? Skin: Musculoskeletal: No cyanosis or clubbing. Psychiatric: Normal mood and affect? Objective Data Active Medications Acetaminophen (Acetaminophen 325 Mg Tablet) 650 mg PO Q6H PRN PRN Reason: Pain, Mild (Pain Scale 1-3) Amiodarone HCl (Amiodarone Hcl 200 Mg Tablet) 200 mg PO DAILY [facility] Last Admin: 07/03/21 09:20 Dose: 200 mg Documented by: CHELSEY Amlodipine Besylate (Amlodipine Besylate 10 Mg Tablet) 10 mg PO DAILY [facility]; Protocol Last Admin: 07/03/21 09:20 Dose: 10 mg Documented by: CHELSEY Atorvastatin Calcium (Atorvastatin Calcium 10 Mg Tablet) 10 mg PO BEDTIME [facility] Last Admin: 07/03/21 20:18 Dose: 10 mg Documented by: CONNOR Vancomycin HCl 1,250 mg/ (Sodium Chloride) 250 mls @ 166.667 mls/hr IV Q24H [facility] Levofloxacin (Levofloxacin 500 Mg Tablet) 500 mg PO Q24H [facility] Levothyroxine Sodium (Levothyroxine Sodium 25 Mcg Tablet) 25 mcg PO DAILY@0600 [facility] Last Admin: 07/04/21 06:27 Dose: 25 mcg Documented by: CONNOR Metformin HCl (Metformin Hcl 500 Mg Tablet) 500 mg PO BIDWM [facility] Last Admin: 07/03/21 16:26 Dose: Not Given Documented by: CHELSEY Non-Admin Reason: BLOOD SUGAR 91 Metoprolol Succinate (Metoprolol Succinate Er 100 Mg Tab.Er.24h) 100 mg PO DAILY [facility]; Protocol Last Admin: 07/03/21 09:24 Dose: Not Given Documented by: CHELSEY Non-Admin Reason: Decreased Heart Rate Mirtazapine (Mirtazapine 7.5 Mg Tablet) 7.5 mg PO BEDTIME [facility] Last Admin: 07/03/21 20:18 Dose: 7.5 mg Documented by: CONNOR Morphine Sulfate (Morphine Sulfate 4 Mg/Ml Cartridge) 2 mg IVPUSH Q4H PRN; Protocol PRN Reason: Pain, Severe (Pain Scale 7-10) Pharmacy Consult (Consult Rx Perform Med Rec) 1 each MISCELLANE ONCE PRN PRN Reason: Consult order Pharmacy Consult (Consult Rx Vancomycin Dosing) 1 each MISCELLANE DAILY PRN PRN Reason: Consult order Sodium Chloride (0.9 % Sodium Chloride Flush 3 Ml Syringe) 3 ml IVFLUSH QSHIFT [facility] Last Admin: 07/03/21 20:18 Dose: 3 ml Documented by: CONNOR Timolol Maleate (Timolol Maleate 0.5 % Oph Spring 5 Ml Drbtl) 1 drop EYE-LEFT DAILY [facility] Last Admin: 07/03/21 09:25 Dose: 1 drop Documented by: CHELSEY Vitamin D (Cholecalciferol (Vitamin D3) 25 Mcg Tablet) 25 mcg PO DAILY [facility] Last Admin: 07/03/21 09:20 Dose: 25 mcg Documented by: CHELSEY Labs CBC & Chem 7: 06/30/21 15:19 07/04/21 05:27 Labs: Laboratory Results - last 24 hr 07/03/21 07/03/21 07/03/21 12:43 15:22 19:21 Estim Creat Clear Calc Estimated GFR POC Glucose 90 91 105 07/04/21 07/04/21 05:27 07:33 Estim Creat Clear Calc 48.3 Estimated GFR 55 POC Glucose 88 Assessment and Plan (1) Osteomyelitis of foot: Status: Acute (2) Cellulitis: Status: Acute (3) Diabetic foot ulcer: Status: Acute (4) Type 2 diabetes mellitus with hyperglycemia: Status: Acute Plan 76-year-old male with a past medical history of diabetes who presents to the hospital with complaints of right lower extremity redness and drainage at the site of previous amputated toe, his is vague on how long this is been an oingoing. The foot is obviously draining purulent discharge with what appears to be an abscess. CRP is over 2), ESR 92.?Xray of the foot shows?Arthritis and subluxation of the second MTP joint questionable for infection/septic arthritis.?? 1. Right foot abscess, possible septic arthritis and acute osteomylitis as detailed below. MRI : 1. Resection of the 3rd phalanx with soft tissue ulceration dorsally and an underlying abscess formation ventral to the 3rd metatarsal head measuring up to 4.7 cm. This extends to the plantar surface of the metatarsal head with probable extension to the plantar soft tissue surface. Acute osteomyelitis within the 3rd metatarsal. 2. Acute osteomyelitis within the 2nd metatarsal head with a joint effusion which could indicate 2nd metatarsophalangeal septic arthritis. 3. Acute osteomyelitis within the 4th metatarsal head and 4th proximal phalanx without an associated joint effusion.? Dr. Oscar has done I and D ID is recommending Vancomycin and PO Levaquin for discharge 2. Diabetes--Sliding scale insulin, hold Metformin 3. Chronic Afib--continue Metoprolol and Amiodarone, Eliquis for stroke prevention--hold eliquis in case he will need procedure 4. HLD--Statin 5. HTN--Norvasc, Metoprolol DVT--restart eliquis Need for inpatient: Needs IV Abx for acute osteomylitis of the foot, needs Vanco level adustment before discharge--may not happen until tuesday Quality Stroke Does the patient have a stroke diagnosis?: No VTE Prior VTE?: No VTE Risk Level:: Medical - moderate - high VTE Device Contraindication: Treatment Not Indicated VTE Drug Contraindication: N/A - Med Ordered
[2021-07-04] MEDS: amLODIPine Besylate 10 MG TABLET PO (08:41)
[2021-07-04] MEDS: Cholecalciferol (Vitamin D3) 25 MCG TABLET PO (08:43)
[2021-07-04] MEDS: metFORMIN HCl 500 MG TABLET PO ×2 (08:44→17:18)
[2021-07-04] MEDS: Amiodarone HCL 200 MG TABLET PO (08:44)
[2021-07-04] MEDS: 0.9 % Sodium Chloride Flush 3 ML SYRINGE IVFLUSH ×2 (08:45→23:40)
[2021-07-04] MEDS: levoFLOXacin 750 MG TABLET PO (10:06)
[2021-07-04] MEDS: Metoprolol Succinate ER 100 MG TAB.ER.24H PO (10:06)
[2021-07-04] MEDS: vancomycin HCL 1,250 MG in 0.9 % Sodium Chloride 250 ML 166.67 MG IV (10:06)
--- NOTE | 2021-07-04 10:09 | MHC.CM.PN ---
DONA CALLED PTS , ANSELMO [email or web address], WHO REPORTS SHE DOES NOT FEEL SHE CAN HELP PT ADMINISTER HIS IV MEDICATIONS AT HOME SHE REPORTS HER NIECE WORKS AT [employer] [facility] [employer] AND THAT IS WHERE THEY WANT HIM TO GO [facility] IS OFFERING PT A BED PENDING INSURANCE AUTH DONA AWAITING RESPONSE FROM [employer] TO DETERMINE IF THEY ARE STEVE TO OBTAIN AUTH TODAY
[2021-07-04] MEDS: timoloL maleate 0.5 % Oph Sol 5 ML DRBTL 1 DROP EYE-LEFT (10:12)
[2021-07-04 11:20] VITALS: BP 150/74; PULSE 56; RESP 15; TEMP 36.2; O2SAT 98
[2021-07-04 15:51] VITALS: BP 137/65; PULSE 71; RESP 18; TEMP 36.6; O2SAT 98
[2021-07-04 16:51] LABS: Glucose, Whole Blood 103 mg/dL (60-115)
[2021-07-04 20:00] VITALS: BP 122/64; PULSE 70; RESP 18; TEMP 36.6; O2SAT 98
[2021-07-04] MEDS: Atorvastatin Calcium 10 MG TABLET PO (21:01)
[2021-07-04] MEDS: Mirtazapine 7.5 MG TABLET PO (21:01)
[2021-07-04 23:51] VITALS: BP 140/62; PULSE 62; RESP 18; TEMP 36.8; O2SAT 98
[2021-07-05 03:47] VITALS: BP 139/63; PULSE 70; RESP 18; TEMP 36.7; O2SAT 98
[2021-07-05] MEDS: Levothyroxine Sodium 25 MCG TABLET PO (04:52)
[2021-07-05 06:43] LABS: Creatinine Clr Calc Pharmacy 49.4; Estimated Glomerular Filt Rate 57
[2021-07-05 07:16] LABS: Glucose, Whole Blood 77 mg/dL (60-115)
[2021-07-05 07:24] VITALS: BP 163/70; PULSE 54; RESP 17; TEMP 36.8; O2SAT 95
[2021-07-05] MEDS: Amiodarone HCL 200 MG TABLET PO (07:35)
[2021-07-05] MEDS: Metoprolol Succinate ER 100 MG TAB.ER.24H PO (07:35)
[2021-07-05] MEDS: amLODIPine Besylate 10 MG TABLET PO (07:35)
[2021-07-05] MEDS: metFORMIN HCl 500 MG TABLET PO ×2 (07:35→17:00)
[2021-07-05] MEDS: Cholecalciferol (Vitamin D3) 25 MCG TABLET PO (07:36)
[2021-07-05] MEDS: 0.9 % Sodium Chloride Flush 3 ML SYRINGE IVFLUSH ×3 (07:36→21:33)
[2021-07-05] MEDS: vancomycin HCL 1,250 MG in 0.9 % Sodium Chloride 250 ML 166.67 MG IV (07:36)
[2021-07-05] MEDS: timoloL maleate 0.5 % Oph Sol 5 ML DRBTL 1 DROP EYE-LEFT (07:41)
--- NOTE | 2021-07-05 08:47 | HO.PM.IMPN ---
Subjective Subjective Date of Service: 07/05/21 Interval History: CC: follow up on diabetic foot infection and osteomylitis of multiple bones Interval history: No change in pain, no fever Review of Systems no fever, no pain in the foot Physical Exam Vital Signs: Vital Signs: Last Vital Signs Temp 98.2 F 07/05/21 07:24 Pulse 54 07/05/21 07:24 Resp 17 07/05/21 07:24 BP 163/70 H 07/05/21 07:24 Pulse Ox 95 07/05/21 07:24 BMI result Body Mass Index 23.9 Const: Other: General: AO X 3, no acute distress Resp: CTA bilateral CVS: S1,S2,RRR GI: +BS, NT, no distention Skin: wound site, dry clean and intact Neuro: motor grossly intact Psych: appropriate affect Objective Data Active Medications Acetaminophen (Acetaminophen 325 Mg Tablet) 650 mg PO Q6H PRN PRN Reason: Pain, Mild (Pain Scale 1-3) Amiodarone HCl (Amiodarone Hcl 200 Mg Tablet) 200 mg PO DAILY [facility] Last Admin: 07/05/21 07:35 Dose: 200 mg Documented by: TAB Amlodipine Besylate (Amlodipine Besylate 10 Mg Tablet) 10 mg PO DAILY [facility]; Protocol Last Admin: 07/05/21 07:35 Dose: 10 mg Documented by: TAB Atorvastatin Calcium (Atorvastatin Calcium 10 Mg Tablet) 10 mg PO BEDTIME [facility] Last Admin: 07/04/21 21:01 Dose: 10 mg Documented by: CONNOR Vancomycin HCl 1,250 mg/ (Sodium Chloride) 250 mls @ 166.667 mls/hr IV Q24H [facility] Last Admin: 07/05/21 07:36 Dose: 166.67 mls/hr Documented by: TAB Levofloxacin (Levofloxacin 750 Mg Tablet) 750 mg PO Q48H [facility] Last Admin: 07/04/21 10:06 Dose: 750 mg Documented by: TAB Levothyroxine Sodium (Levothyroxine Sodium 25 Mcg Tablet) 25 mcg PO DAILY@0600 [facility] Last Admin: 07/05/21 04:52 Dose: 25 mcg Documented by: CONNOR Metformin HCl (Metformin Hcl 500 Mg Tablet) 500 mg PO BIDWM [facility] Last Admin: 07/05/21 07:35 Dose: 500 mg Documented by: TAB Metoprolol Succinate (Metoprolol Succinate Er 100 Mg Tab.Er.24h) 100 mg PO DAILY [facility]; Protocol Last Admin: 07/05/21 07:35 Dose: 100 mg Documented by: TAB Mirtazapine (Mirtazapine 7.5 Mg Tablet) 7.5 mg PO BEDTIME [facility] Last Admin: 07/04/21 21:01 Dose: 7.5 mg Documented by: CONNOR Morphine Sulfate (Morphine Sulfate 4 Mg/Ml Cartridge) 2 mg IVPUSH Q4H PRN; Protocol PRN Reason: Pain, Severe (Pain Scale 7-10) Pharmacy Consult (Consult Rx Perform Med Rec) 1 each MISCELLANE ONCE PRN PRN Reason: Consult order Pharmacy Consult (Consult Rx Vancomycin Dosing) 1 each MISCELLANE DAILY PRN PRN Reason: Consult order Sodium Chloride (0.9 % Sodium Chloride Flush 3 Ml Syringe) 3 ml IVFLUSH QSHIFT [facility] Last Admin: 07/05/21 07:36 Dose: 3 ml Documented by: TAB Timolol Maleate (Timolol Maleate 0.5 % Oph Spring 5 Ml Drbtl) 1 drop EYE-LEFT DAILY [facility] Last Admin: 07/05/21 07:41 Dose: 1 drop Documented by: TAB Vitamin D (Cholecalciferol (Vitamin D3) 25 Mcg Tablet) 25 mcg PO DAILY [facility] Last Admin: 07/05/21 07:36 Dose: 25 mcg Documented by: TAB Labs CBC & Chem 7: 06/30/21 15:19 07/05/21 06:01 Labs: Laboratory Results - last 24 hr 07/04/21 07/05/21 07/05/21 16:38 06:01 07:12 Estim Creat Clear Calc 49.4 Estimated GFR 57 POC Glucose 103 77 Assessment and Plan (1) Osteomyelitis of foot: Status: Acute Plan 76-year-old male with a past medical history of diabetes who presents to the hospital with complaints of right lower extremity redness and drainage at the site of previous amputated toe, his is vague on how long this is been an oingoing. The foot is obviously draining purulent discharge with what appears to be an abscess. CRP is over 2), ESR 92.?Xray of the foot shows?Arthritis and subluxation of the second MTP joint questionable for infection/septic arthritis.?? 1. Right foot abscess, possible septic arthritis and acute osteomylitis as detailed below. MRI : 1. Resection of the 3rd phalanx with soft tissue ulceration dorsally and an underlying abscess formation ventral to the 3rd metatarsal head measuring up to 4.7 cm. This extends to the plantar surface of the metatarsal head with probable extension to the plantar soft tissue surface. Acute osteomyelitis within the 3rd metatarsal. 2. Acute osteomyelitis within the 2nd metatarsal head with a joint effusion which could indicate 2nd metatarsophalangeal septic arthritis. 3. Acute osteomyelitis within the 4th metatarsal head and 4th proximal phalanx without an associated joint effusion.? Dr. Oscar has done I and D ID is recommending Vancomycin and PO Levaquin for discharge--Case management to make arrangements tomorrow for home infusion 2. Diabetes--Sliding scale insulin, hold Metformin 3. Chronic Afib--continue Metoprolol and Amiodarone, Eliquis for stroke prevention--hold eliquis in case he will need procedure 4. HLD--Statin 5. HTN--Norvasc, Metoprolol DVT--restart eliquis Need for inpatient: Needs IV Abx for acute osteomylitis of the foot, needs Vanco level adustment before discharge--may not happen until tuesday Quality Stroke Does the patient have a stroke diagnosis?: No VTE Prior VTE?: No VTE Risk Level:: Medical - moderate - high VTE Device Contraindication: Treatment Not Indicated VTE Drug Contraindication: N/A - Med Ordered
--- NOTE | 2021-07-05 09:33 | HE.PHANOTE ---
Vancomycin Dosing Addendum Continue with current regimen, level on 07/06/21 @0600.
[2021-07-05 11:26] VITALS: BP 140/65; PULSE 52; RESP 18; TEMP 36.8; O2SAT 95
[2021-07-05 11:39] LABS: Glucose, Whole Blood 84 mg/dL (60-115)
[2021-07-05 15:50] VITALS: BP 132/63; PULSE 60; RESP 17; TEMP 36.6; O2SAT 98
[2021-07-05 19:44] VITALS: BP 186/77; PULSE 60; RESP 18; TEMP 36.4; O2SAT 98
[2021-07-05] MEDS: Atorvastatin Calcium 10 MG TABLET PO (21:32)
[2021-07-05] MEDS: Mirtazapine 7.5 MG TABLET PO (21:32)
[2021-07-05 23:31] VITALS: BP 150/70; PULSE 53; RESP 14; TEMP 36.9; O2SAT 97
[2021-07-06 03:32] VITALS: BP 135/63; PULSE 52; RESP 18; TEMP 36.3; O2SAT 98
[2021-07-06] MEDS: Levothyroxine Sodium 25 MCG TABLET PO (05:39)
[2021-07-06 06:10] LABS: Creatinine Clr Calc Pharmacy 46.1; Estimated Glomerular Filt Rate 52
[2021-07-06 06:19] LABS: Vancomycin Random 20.1 mcg/mL (15-20)
[2021-07-06 06:47] VITALS: BP 152/71; PULSE 49; RESP 16; TEMP 36.6; O2SAT 99
[2021-07-06] MEDS: 0.9 % Sodium Chloride Flush 3 ML SYRINGE IVFLUSH ×3 (07:49→22:07)
[2021-07-06] MEDS: metFORMIN HCl 500 MG TABLET PO ×2 (07:49→16:38)
--- NOTE | 2021-07-06 08:47 | P.PNIM_ITS ---
Subjective Subjective Date of Service: 07/06/21 Interval History: CC: follow up on diabetic foot infection and osteomylitis of multiple bones Interval history: No change in pain, no fever.. Review of Systems no fever, no pain in the foot Physical Exam Vital Signs: Vital Signs: Last Vital Signs Temp 98 F 07/06/21 06:47 Pulse 49 L 07/06/21 06:47 Resp 16 07/06/21 06:47 BP 152/71 H 07/06/21 06:47 Pulse Ox 99 07/06/21 06:47 BMI result Body Mass Index 23.9 Const: Other: General: AO X 3, no acute distress Resp: CTA bilateral CVS: S1,S2,RRR GI: +BS, NT, no distention Skin: wound site, dry clean and intact Neuro: motor grossly intact Psych: appropriate affect Objective Data Active Medications Acetaminophen (Acetaminophen 325 Mg Tablet) 650 mg PO Q6H PRN PRN Reason: Pain, Mild (Pain Scale 1-3) Amiodarone HCl (Amiodarone Hcl 200 Mg Tablet) 200 mg PO DAILY [facility] Last Admin: 07/05/21 07:35 Dose: 200 mg Documented by: TAB Amlodipine Besylate (Amlodipine Besylate 10 Mg Tablet) 10 mg PO DAILY [facility]; Pr otocol Last Admin: 07/05/21 07:35 Dose: 10 mg Documented by: TAB Apixaban (Apixaban 5 Mg Tablet) 5 mg PO BID [facility] Atorvastatin Calcium (Atorvastatin Calcium 10 Mg Tablet) 10 mg PO BEDTIME [facility] Last Admin: 07/05/21 21:32 Dose: 10 mg Documented by: BRITTNY Vancomycin HCl 750 mg/ Sodium (Chloride) 250 mls @ 166.667 mls/hr IV Q24H [facility] Levofloxacin (Levofloxacin 750 Mg Tablet) 750 mg PO Q48H [facility] Last Admin: 07/04/21 10:06 Dose: 750 mg Documented by: TAB Levothyroxine Sodium (Levothyroxine Sodium 25 Mcg Tablet) 25 mcg PO DAILY@0600 [facility] Last Admin: 07/06/21 05:39 Dose: 25 mcg Documented by: BRITTNY Metformin HCl (Metformin Hcl 500 Mg Tablet) 500 mg PO BIDWM [facility] Last Admin: 07/06/21 07:49 Dose: 500 mg Documented by: GERALDINE Metoprolol Succinate (Metoprolol Succinate Er 100 Mg Tab.Er.24h) 100 mg PO DAILY [facility]; Protocol Last Admin: 07/05/21 07:35 Dose: 100 mg Documented by: TAB Mirtazapine (Mirtazapine 7.5 Mg Tablet) 7.5 mg PO BEDTIME [facility] Last Admin: 07/05/21 21:32 Dose: 7.5 mg Documented by: BRITTNY Pharmacy Consult (Consult Rx Perform Med Rec) 1 each MISCELLANE ONCE PRN PRN Reason: Consult order Pharmacy Consult (Consult Rx Vancomycin Dosing) 1 each MISCELLANE DAILY PRN PRN Reason: Consult order Sodium Chloride (0.9 % Sodium Chloride Flush 3 Ml Syringe) 3 ml IVFLUSH QSHIFT [facility] Last Admin: 07/06/21 07:49 Dose: 3 ml Documented by: GERALDINE Timolol Maleate (Timolol Maleate 0.5 % Oph Spring 5 Ml Drbtl) 1 drop EYE-LEFT DAILY [facility] Last Admin: 07/05/21 07:41 Dose: 1 drop Documented by: TAB Vitamin D (Cholecalciferol (Vitamin D3) 25 Mcg Tablet) 25 mcg PO DAILY [facility] Last Admin: 07/05/21 07:36 Dose: 25 mcg Documented by: TAB Labs CBC & Chem 7: 06/30/21 15:19 07/06/21 05:31 Labs: Laboratory Results - last 24 hr 07/05/21 07/06/21 07/06/21 11:25 05:31 05:31 Estim Creat Clear Calc 46.1 Estimated GFR 52 POC Glucose 84 Random Vancomycin 20.1 H Microbiology Microbiology Results: Microbiology 06/30/21 15:19 Blood Culture - Final Blood - Venous No growth after 5 days. 06/30/21 15:15 Blood Culture - Final Blood - Venous No growth after 5 days. Assessment and Plan (1) Osteomyelitis of foot: Status: Acute Plan 76-year-old male with a past medical history of diabetes who presents to the hospital with complaints of right lower extremity redness and drainage at the site of previous amputated toe, his is vague on how long this is been an oingo ing. The foot is obviously draining purulent discharge with what appears to be an abscess. CRP is over 2), ESR 92.?Xray of the foot shows?Arthritis and subluxation of the second MTP joint questionable for infection/septic arthritis.?? 1. Right foot abscess, possible septic arthritis and acute osteomylitis, MRI finding as below 1. Resection of the 3rd phalanx with soft tissue ulceration dorsally and an underlying abscess formation ventral to the 3rd metatarsal head measuring up to 4.7 cm. This extends to the plantar surface of the metatarsal head with probable extension to the plantar soft tissue surface. Acute osteomyelitis within the 3rd metatarsal. 2. Acute osteomyelitis within the 2nd metatarsal head with a joint effusion which could indicate 2nd metatarsophalangeal septic arthritis. 3. Acute osteomyelitis within the 4th metatarsal head and 4th proximal phalanx without an associated joint effusion.? Dr. Oscar has done I and D, He has history of MRSA ID is recommending Vancomycin and PO Levaquin for discharge--He was to go home with VNA but is now saying he's not comfortable with IV meds at home and might nieed to go to SNF Adjust Vanco level today 2. Diabetes--Sliding scale insulin, hold Metformin 3. Chronic Afib--continue Metoprolol and Amiodarone, Eliquis for stroke prevention--hold eliquis in case he will need procedure 4. HLD--Statin 5. HTN--Norvasc, Metoprolol DVT--reliquis Need for inpatient: Needs IV Abx for acute osteomylitis of the foot, needs Vanco level adjusted before discharge, changes been made again today Quality Stroke Does the patient have a stroke diagnosis?: No VTE Prior VTE?: No VTE Risk Level:: Medical - moderate - high VTE Device Contraindication: Treatment Not Indicated VTE Drug Contraindication: N/A - Med Ordered
[2021-07-06] MEDS: Amiodarone HCL 200 MG TABLET PO (09:16)
[2021-07-06] MEDS: timoloL maleate 0.5 % Oph Sol 5 ML DRBTL 1 DROP EYE-LEFT (09:16)
[2021-07-06] MEDS: Cholecalciferol (Vitamin D3) 25 MCG TABLET PO (09:16)
[2021-07-06] MEDS: Apixaban 5 MG TABLET PO ×2 (09:16→22:06)
[2021-07-06] MEDS: amLODIPine Besylate 10 MG TABLET PO (09:16)
[2021-07-06] MEDS: Metoprolol Succinate ER 100 MG TAB.ER.24H PO (09:16)
[2021-07-06] MEDS: levoFLOXacin 750 MG TABLET PO (10:03)
[2021-07-06] MEDS: vancomycin HCL 750 MG in 0.9 % Sodium Chloride 250 ML 166.67 MG IV (10:04)
--- NOTE | 2021-07-06 10:18 | PC.NURSE ---
Skin/wound assessment completed today. Patient has an abscess to top of right foot measuring 0.9 x 0.8 x 2.1 to bone- silver alginate tucked into wound bed with tail laying flat on wound bed, patient also has a diabetic ulcer to right plantar foot measuring 0.9 x 0.8 x 2.0 with 1.0 tunnelling from 10-3. Silver alginate tucked into wound leaving a tail laying flat on wound. Both wounds covered with non woven gauze and wrap with non conforming gauze. No other skin issues noted at this time.
[2021-07-06 10:44] LABS: COVID-19 Test Negative (Negative)
[2021-07-06 11:04] VITALS: BP 139/65; PULSE 50; RESP 18; TEMP 36.1; O2SAT 99
[2021-07-06 15:05] VITALS: BP 152/77; PULSE 52; RESP 18; TEMP 36.6; O2SAT 96
[2021-07-06 19:50] VITALS: BP 139/65; PULSE 56; RESP 18; TEMP 36.6; O2SAT 98
[2021-07-06] MEDS: Mirtazapine 7.5 MG TABLET PO (22:06)
[2021-07-06] MEDS: Atorvastatin Calcium 10 MG TABLET PO (22:06)
[2021-07-06 23:37] VITALS: BP 165/71; PULSE 62; RESP 16; TEMP 37; O2SAT 93
[2021-07-07 03:51] VITALS: BP 145/68; PULSE 58; RESP 16; TEMP 37.3; O2SAT 97
[2021-07-07] MEDS: Levothyroxine Sodium 25 MCG TABLET PO (05:44)
[2021-07-07 06:48] VITALS: BP 123/55; PULSE 54; RESP 18; TEMP 36.4; O2SAT 98
[2021-07-07] MEDS: metFORMIN HCl 500 MG TABLET PO ×2 (07:31→17:13)
[2021-07-07] MEDS: Cholecalciferol (Vitamin D3) 25 MCG TABLET PO (07:31)
[2021-07-07] MEDS: Apixaban 5 MG TABLET PO ×2 (07:31→22:14)
[2021-07-07] MEDS: Metoprolol Succinate ER 100 MG TAB.ER.24H PO (07:31)
[2021-07-07] MEDS: Amiodarone HCL 200 MG TABLET PO (07:31)
[2021-07-07] MEDS: 0.9 % Sodium Chloride Flush 3 ML SYRINGE IVFLUSH ×2 (07:31→17:13)
[2021-07-07] MEDS: amLODIPine Besylate 10 MG TABLET PO (07:31)
[2021-07-07] MEDS: timoloL maleate 0.5 % Oph Sol 5 ML DRBTL 1 DROP EYE-LEFT (07:32)
--- NOTE | 2021-07-07 10:12 | HO.PM.IMPN ---
Subjective Subjective Date of Service: 07/07/21 Interval History: CC: follow up on diabetic foot infection and osteomylitis of multiple bones Interval history: has no pain. Review of Systems no fever, no pain in the foot Physical Exam Vital Signs: Vital Signs: Last Vital Signs Temp 97.6 F 07/07/21 06:48 Pulse 54 07/07/21 06:48 Resp 18 07/07/21 06:48 BP 123/55 L 07/07/21 06:48 Pulse Ox 98 07/07/21 06:48 BMI result Body Mass Index 23.9 Const: Other: General: AO X 3, no acute distress Resp: CTA bilateral CVS: S1,S2,RRR GI: +BS, NT, no distention Skin: wound site, dry clean and intact Neuro: motor grossly intact Psych: appropriate affect Objective Data Active Medications Acetaminophen (Acetaminophen 325 Mg Tablet) 650 mg PO Q6H PRN PRN Reason: Pain, Mild (Pain Scale 1-3) Amiodarone HCl (Amiodarone Hcl 200 Mg Tablet) 200 mg PO DAILY [facility] Last Admin: 07/07/21 07:31 Dose: 200 mg Documented by: TAB Amlodipine Besylate (Amlodipine Besylate 10 Mg Tablet) 10 mg PO DAILY [facility]; Protocol Last Admin: 07/07/21 07:31 Dose: 10 mg Documented by: TAB Apixaban (Apixaban 5 Mg Tablet) 5 mg PO BID [facility] Last Admin: 07/07/21 07:31 Dose: 5 mg Documented by: TAB Atorvastatin Calcium (Atorvastatin Calcium 10 Mg Tablet) 10 mg PO BEDTIME [facility] Last Admin: 07/06/21 22:06 Dose: 10 mg Documented by: BRITTNY Vancomycin HCl 750 mg/ Sodium (Chloride) 265 mls @ 166.667 mls/hr IV Q24H [facility] Last Infusion: 07/06/21 11:51 Dose: 0 mls/hr Documented by: GERALDINE Levofloxacin (Levofloxacin 750 Mg Tablet) 750 mg PO Q48H [facility] Last Admin: 07/06/21 10:03 Dose: 750 mg Documented by: GERALDINE Levothyroxine Sodium (Levothyroxine Sodium 25 Mcg Tablet) 25 mcg PO DAILY@0600 [facility] Last Admin: 07/07/21 05:44 Dose: 25 mcg Documented by: BRITTNY Metformin HCl (Metformin Hcl 500 Mg Tablet) 500 mg PO BIDWM [facility] Last Admin: 07/07/21 07:31 Dose: 500 mg Documented by: TAB Metoprolol Succinate (Metoprolol Succinate Er 100 Mg Tab.Er.24h) 100 mg PO DAILY [facility]; Protocol Last Admin: 07/07/21 07:31 Dose: 100 mg Documented by: TAB Mirtazapine (Mirtazapine 7.5 Mg Tablet) 7.5 mg PO BEDTIME [facility] Last Admin: 07/06/21 22:06 Dose: 7.5 mg Documented by: BRITTNY Pharmacy Consult (Consult Rx Perform Med Rec) 1 each MISCELLANE ONCE PRN PRN Reason: Consult order Pharmacy Consult (Consult Rx Vancomycin Dosing) 1 each MISCELLANE DAILY PRN PRN Reason: Consult order Sodium Chloride (0.9 % Sodium Chloride Flush 3 Ml Syringe) 3 ml IVFLUSH QSHIFT [facility] Last Admin: 07/07/21 07:31 Dose: 3 ml Documented by: TAB Timolol Maleate (Timolol Maleate 0.5 % Oph Spring 5 Ml Drbtl) 1 drop EYE-LEFT DAILY [facility] Last Admin: 07/07/21 07:32 Dose: 1 drop Documented by: TAB Vitamin D (Cholecalciferol (Vitamin D3) 25 Mcg Tablet) 25 mcg PO DAILY [facility] Last Admin: 07/07/21 07:31 Dose: 25 mcg Documented by: TAB Labs CBC & Chem 7: 06/30/21 15:19 07/06/21 05:31 Labs: Laboratory Results - last 24 hr 07/06/21 10:12 COVID-19 ([facility]) Negative COVID-19 Clin Com See Note Assessment and Plan (1) Osteomyelitis of foot: Status: Acute Plan 76-year-old male with a past medical history of diabetes who presents to the hospital with complaints of right lower extremity redness and drainage at the site of previous amputated toe, his is vague on how long this is been an oingoing. The foot is obviously draining purulent discharge with what appears to be an abscess. CRP is over 2), ESR 92.?Xray of the foot shows?Arthritis and subluxation of the second MTP joint questionable for infection/septic arthritis.?? 1. Right foot abscess, possible septic arthritis and acute osteomylitis, MRI finding as below 1. Resection of the 3rd phalanx with soft tissue ulceration dorsally and an underlying abscess formation ventral to the 3rd metatarsal head measuring up to 4.7 cm. This extends to the plantar surface of the metatarsal head with probable extension to the plantar soft tissue surface. Acute osteomyelitis within the 3rd metatarsal. 2. Acute osteomyelitis within the 2nd metatarsal head with a joint effusion which could indicate 2nd metatarsophalangeal septic arthritis. 3. Acute osteomyelitis within the 4th metatarsal head and 4th proximal phalanx without an associated joint effusion.? Dr. Oscar has done I and D, He has history of MRSA ID is recommending Vancomycin and PO Levaquin for discharge--He was to go home with VNA but is now saying he's not comfortable with IV meds at home and might nieed to go to SNF Adjust Vanco level today 2. Diabetes--Sliding scale insulin, hold Metformin 3. Chronic Afib--continue Metoprolol and Amiodarone, Eliquis for stroke prevention--hold eliquis in case he will need procedure 4. HLD--Statin 5. HTN--Norvasc, Metoprolol DVT--reliquis Need for inpatient: Needs IV Abx for acute osteomylitis of the foot, needs Vanco level adjusted before discharge, awaiting rehab bed Quality Stroke Does the patient have a stroke diagnosis?: No VTE Prior VTE?: No VTE Risk Level:: Medical - moderate - high VTE Device Contraindication: Treatment Not Indicated VTE Drug Contraindication: N/A - Med Ordered
[2021-07-07 11:02] VITALS: BP 140/62; PULSE 50; RESP 18; TEMP 36.1; O2SAT 98
[2021-07-07] MEDS: vancomycin HCL 750 MG in 0.9 % Sodium Chloride 250 ML 166.67 MG IV (11:44)
[2021-07-07 15:01] VITALS: BP 148/67; PULSE 52; RESP 18; O2SAT 97
--- NOTE | 2021-07-07 16:21 | MHC.CM.PN ---
nurse care trainer note electronic medical recor revieqwed along with case discussed with hospitlaist and casework supervisor [facility] /medicare [place] denied patient for str based on iv abx only once daily and un complisted wound dressing daily i spoke with lesa armstrongjose d [facility] ins she gave me some additional vna agencires they are contratced with better home life , maximum , aveana , declined out of services area or no avaiability, retried today altranius they would accet but were out of [place] and could provide initially qd rn visists but denied by [facility] ins, resent to [facility] vna, [facility], [facility] vna no availability and mulu van they do not [provide infusion services . this inbformation was given to patient and his , [facility] went to patients house and she was very anxious and had some dexterity problems, they are trying to see if they can get approval for a elasta ball through [facility] ins. i called to patients offering alternative plan for him to possibly come to [facility] short stay surgery qd for scheduled appt time but would need transportation, she reported that she would not be able to as she has a son she cares for s/p strok , i asked about having a family/friend/ neighbor stay with him and have her be able to bring her here qd she she she had no one , explained that wr were not able to get insurance contractyes vna for him and [facility] could get [facility] help. called to caitie at [facility] she said she is trying to see if she can get a [facility] nurse to go out to patients [facility] for futher reinforcement but would not be able to go every day also she reported thet cost of med is $69>00 qd and suppp;lies cost is $15,oo qd for the next 356 days . block and case maker to continue to follow
[2021-07-07 19:06] VITALS: BP 134/68; PULSE 55; RESP 18; TEMP 37; O2SAT 97
[2021-07-07] MEDS: Atorvastatin Calcium 10 MG TABLET PO (22:14)
[2021-07-07] MEDS: Mirtazapine 7.5 MG TABLET PO (22:14)
[2021-07-07 23:25] VITALS: BP 141/67; PULSE 54; RESP 18; TEMP 36.9; O2SAT 98
[2021-07-08] MEDS: 0.9 % Sodium Chloride Flush 3 ML SYRINGE IVFLUSH ×3 (02:12→19:46)
[2021-07-08 03:43] VITALS: BP 141/65; PULSE 56; RESP 17; TEMP 36.8; O2SAT 98
[2021-07-08] MEDS: Levothyroxine Sodium 25 MCG TABLET PO (05:51)
[2021-07-08 07:11] VITALS: BP 168/73; PULSE 53; RESP 18; TEMP 36.6; O2SAT 97
[2021-07-08 08:23] LABS: Estimated Glomerular Filt Rate 56
[2021-07-08 08:59] LABS: Vancomycin Trough 15.4 mcg/mL (10.0-20.0)
[2021-07-08] MEDS: metFORMIN HCl 500 MG TABLET PO ×2 (09:15→17:54)
[2021-07-08] MEDS: levoFLOXacin 750 MG TABLET PO (09:15)
[2021-07-08] MEDS: vancomycin HCL 750 MG in 0.9 % Sodium Chloride 250 ML 166.67 MG IV (09:15)
[2021-07-08] MEDS: amLODIPine Besylate 10 MG TABLET PO (09:16)
[2021-07-08] MEDS: Amiodarone HCL 200 MG TABLET PO (09:16)
[2021-07-08] MEDS: Apixaban 5 MG TABLET PO ×2 (09:16→19:46)
[2021-07-08] MEDS: Cholecalciferol (Vitamin D3) 25 MCG TABLET PO (09:17)
--- NOTE | 2021-07-08 09:17 | HE.PHANOTE ---
Vancomycin addendum Trough on 07/08/21 came back at 15.4mg/L, SCr 1.24; continue with 750mg Q24H. Ordered next trough for 07/10/21 @0800.
[2021-07-08] MEDS: timoloL maleate 0.5 % Oph Sol 5 ML DRBTL 1 DROP EYE-LEFT (09:18)
--- NOTE | 2021-07-08 10:23 | HO.PM.IMPN ---
Subjective Subjective Date of Service: 07/08/21 Interval History: CC: follow up on diabetic foot infection and osteomylitis of multiple bones Interval history: has no pain. awaiting rehab bed Review of Systems no fever, no pain in the foot Physical Exam Vital Signs: Vital Signs: Last Vital Signs Temp 97.8 F 07/08/21 07:11 Pulse 53 07/08/21 07:11 Resp 18 07/08/21 07:11 BP 168/73 H 07/08/21 07:11 Pulse Ox 97 07/08/21 07:11 BMI result Body Mass Index 23.9 Const: Other: General: AO X 3, no acute distress Resp:? CTA bilateral CVS: S1,S2,RRR GI: +BS, NT, no distention Skin: wound site, dry clean and intact Neuro:? motor grossly intact Psych: appropriate affect Objective Data Active Medications Acetaminophen (Acetaminophen 325 Mg Tablet) 650 mg PO Q6H PRN PRN Reason: Pain, Mild (Pain Scale 1-3) Amiodarone HCl (Amiodarone Hcl 200 Mg Tablet) 200 mg PO DAILY [facility] Last Admin: 07/08/21 09:16 Dose: 200 mg Documented by: PABLITO Amlodipine Besylate (Amlodipine Besylate 10 Mg Tablet) 10 mg PO DAILY [facility]; Protocol Last Admin: 07/08/21 09:16 Dose: 10 mg Documented by: PABLITO Apixaban (Apixaban 5 Mg Tablet) 5 mg PO BID [facility] Last Admin: 07/08/21 09:16 Dose: 5 mg Documented by: PABLITO Atorvastatin Calcium (Atorvastatin Calcium 10 Mg Tablet) 10 mg PO BEDTIME [facility] Last Admin: 07/07/21 22:14 Dose: 10 mg Documented by: SHAUN Vancomycin HCl 750 mg/ Sodium (Chloride) 265 mls @ 166.667 mls/hr IV Q24H [facility] Last Admin: 07/08/21 09:15 Dose: 166.67 mls/hr Documented by: PABLITO Levofloxacin (Levofloxacin 750 Mg Tablet) 750 mg PO Q48H [facility] Last Admin: 07/08/21 09:15 Dose: 750 mg Documented by: PABLITO Levothyroxine Sodium (Levothyroxine Sodium 25 Mcg Tablet) 25 mcg PO DAILY@0600 [facility] Last Admin: 07/08/21 05:51 Dose: 25 mcg Documented by: LARRYILJany Metformin HCl (Metformin Hcl 500 Mg Tablet) 500 mg PO BIDWM [facility] Last Admin: 07/08/21 09:15 Dose: 500 mg Documented by: PABLITO Metoprolol Succinate (Metoprolol Succinate Er 100 Mg Tab.Er.24h) 100 mg PO DAILY [facility]; Protocol Last Admin: 07/07/21 07:31 Dose: 100 mg Documented by: TAB Mirtazapine (Mirtazapine 7.5 Mg Tablet) 7.5 mg PO BEDTIME [facility] Last Admin: 07/07/21 22:14 Dose: 7.5 mg Documented by: SHAUN Pharmacy Consult (Consult Rx Perform Med Rec) 1 each MISCELLANE ONCE PRN PRN Reason: Consult order Pharmacy Consult (Consult Rx Vancomycin Dosing) 1 each MISCELLANE DAILY PRN PRN Reason: Consult order Sodium Chloride (0.9 % Sodium Chloride Flush 3 Ml Syringe) 3 ml IVFLUSH QSHIFT [facility] Last Admin: 07/08/21 09:17 Dose: 3 ml Documented by: PABLITO Timolol Maleate (Timolol Maleate 0.5 % Oph Spring 5 Ml Drbtl) 1 drop EYE-LEFT DAILY [facility] Last Admin: 07/08/21 09:18 Dose: 1 drop Documented by: PABLITO Vitamin D (Cholecalciferol (Vitamin D3) 25 Mcg Tablet) 25 mcg PO DAILY [facility] Last Admin: 07/08/21 09:17 Dose: 25 mcg Documented by: PABLITO Labs CBC & Chem 7: 06/30/21 15:19 07/08/21 07:57 Labs: Laboratory Results - last 24 hr 07/08/21 07/08/21 07:57 07:57 Estim Creat Clear Calc 49.0 Estimated GFR 56 Vancomycin Trough 15.4 Assessment and Plan (1) Osteomyelitis of foot: Status: Acute Plan 76-year-old male with a past medical history of diabetes who presents to the hospital with complaints of right lower extremity redness and drainage at the site of previous amputated toe, his is vague on how long this is been an oingoing. The foot is obviously draining purulent discharge with what appears to be an abscess. CRP is over 2), ESR 92.?Xray of the foot shows?Arthritis and subluxation of the second MTP joint questionable for infection/septic arthritis.?? 1. Right foot abscess, possible septic arthritis and acute osteomylitis, MRI finding as below 1. Resection of the 3rd phalanx with soft tissue ulceration dorsally and an underlying abscess formation ventral to the 3rd metatarsal head measuring up to 4.7 cm. This extends to the plantar surface of the metatarsal head with probable extension to the plantar soft tissue surface. Acute osteomyelitis within the 3rd metatarsal. 2. Acute osteomyelitis within the 2nd metatarsal head with a joint effusion which could indicate 2nd metatarsophalangeal septic arthritis. 3. Acute osteomyelitis within the 4th metatarsal head and 4th proximal phalanx without an associated joint effusion.? Dr. Oscar has done I and D, He has history of MRSA ID is recommending Vancomycin and PO Levaquin for discharge--He was to go home with VNA but is now saying he's not comfortable with IV meds at home and might nieed to go to SNF Adjust Vanco level today 2. Diabetes--Sliding scale insulin, hold Metformin restart at discharge 3. Chronic Afib--continue Metoprolol and Amiodarone, Eliquis for stroke prevention--hold eliquis in case he will need procedure 4. HLD--Statin 5. HTN--Norvasc, Metoprolol DVT--reliquis Need for inpatient: Needs IV Abx for acute osteomylitis of the foot, needs Vanco level adjusted before discharge, awaiting rehab bed Quality Stroke Does the patient have a stroke diagnosis?: No VTE Prior VTE?: No VTE Risk Level:: Medical - moderate - high VTE Device Contraindication: Treatment Not Indicated VTE Drug Contraindication: N/A - Med Ordered
[2021-07-08 11:20] VITALS: BP 163/74; PULSE 53; RESP 18; TEMP 36.8; O2SAT 97
--- NOTE | 2021-07-08 12:17 | MHC.CM.PN ---
nurse nurse case management note UNABLE TO GET VNA CONTRACTED AGIENCIES FOR IV ABX AND DRESSING CHANGES , SECONDARY TO OUT OF SERVICES AREA OR NO AVAILABILITY THIS WAS TOLD TO PATIENT AND HIS , WAS WORKING CLOSELY WITH ELSA TEJADA AT [facility], THIS NUMBER WAS GIVEN TO PATIENT AT [facility] REQUEST TO FIND OUT WHY HE COULD NOT GO TO STR AND USE OTHER NON CONTRACETED FACUILITES [facility] RADHA TEJADA. THIS PHONE NUMBER WAS ALSO GIVEN TO PATIENTS , SHE DID NOT UNDERSTAND WHY WE COULD NOT GET VNA NURSING OR GO OUT OF CONTRCT WITH [facility] AND USE OTHER AGENICIES . to be discharged home today patient and are aware of this . ([facility]/medicare denial letter recoived and givn to patient and copy for his when she comes in [place] [facility] , denial for str placement, no needs) and i also explained tomthem the denial appeals process. EXLAINED TO STAFF NURSE THAT PATIENTS WOULD BE COMING TO SEE WOUND SITE AND HOW THESE DRESING WERE BEING DONE 1. [facility] to [facility]ibver the iv abx /pic line related supplies tonight between 6-9 pm, he has recived his am ABX DOSE TODAY. THE [facility] WILL BE OUT TOMORROW 10 AM FOR IV ABX ADMINISTRATION AND TEACHING TO PATIENT / AND . THEY WILL COME OUT 07/09/21 AT 10 AM AND AGIN DAILY FOR FEW VISITS THEN WILL COME OUT WEEKLY FOR PIC LINE DRESSING 2. REQUESTED FROM [facility] FOR NORMAL SALINE , AND SILVER ALIG NINATE AND DRESING SUPPLIES FOR WOUND CARE AND DRSING ( TO COME TO [facility] AND LEARN THE DRESING CHANGES WITH FRIEND TODAY PRIOR TO DISCHAGRE 3. FOLLOW UP WITH PCP POST HOSPITAL DISCHARGE
[2021-07-08 16:00] VITALS: BP 151/69; PULSE 60; RESP 16; TEMP 36.4; O2SAT 100
--- NOTE | 2021-07-08 16:41 | MHC.CM.PN ---
patient discharge held as iv abx changed from initsl one, requedsted dressing scripts as well as new pic line /abx order form to be complated , angelo willstay here over night will need vac troph before d/c to [facility] sent to [facility] informed patient /his and [facility] also discussed with patient and about applying for [facility] eligeability as she raised concerns regarding financial burdens with co pays for his medictions. i gace them the information what is need for [facility] and how to reaxh the [facility] financial counselors.. discussed [facility] medicaide and [facility] connector qhere they may pay a monthly fee , but probably be less than their current monthly co pay bill
[2021-07-08] MEDS: Mirtazapine 7.5 MG TABLET PO (19:46)
[2021-07-08] MEDS: Atorvastatin Calcium 10 MG TABLET PO (19:46)
[2021-07-08 20:00] VITALS: BP 153/69; PULSE 55; RESP 16; TEMP 36.9; O2SAT 98
[2021-07-08 23:20] VITALS: BP 144/65; PULSE 54; RESP 16; TEMP 36.4; O2SAT 97
[2021-07-09 03:52] VITALS: BP 161/73; PULSE 59; RESP 16; TEMP 36.2; O2SAT 96
[2021-07-09] MEDS: Levothyroxine Sodium 25 MCG TABLET PO (05:30)
[2021-07-09 07:12] LABS: Creatinine Clr Calc Pharmacy 46.8; Estimated Glomerular Filt Rate 53
[2021-07-09 07:46] VITALS: BP 156/70; PULSE 53; RESP 18; TEMP 36.4; O2SAT 97
[2021-07-09] MEDS: Apixaban 5 MG TABLET PO (07:55)
[2021-07-09] MEDS: metFORMIN HCl 500 MG TABLET PO (07:55)
[2021-07-09 07:56] LABS: Glucose, Whole Blood 84 mg/dL (60-115)
[2021-07-09] MEDS: Amiodarone HCL 200 MG TABLET PO (07:56)
[2021-07-09] MEDS: Cholecalciferol (Vitamin D3) 25 MCG TABLET PO (07:56)
[2021-07-09] MEDS: Metoprolol Succinate ER 100 MG TAB.ER.24H PO (07:56)
[2021-07-09] MEDS: amLODIPine Besylate 10 MG TABLET PO (07:56)
--- NOTE | 2021-07-09 08:40 | P.DS_ITS ---
DS: Providers Provider Date of Service: 07/08/21 Date of admission: 06/30/21 16:59 Primary care physician: Jayla Murrieta MD Consults: 06/30/21 16:15 Consult to General Surgery Routine Consulting Provider: Isac Resendez Reason for consultation: R foot infection Has provider been notified: Yes 06/30/21 16:58 Consult to General Surgery Routine Consulting Provider: Isac Resendez Reason for consultation: right foot abscess 07/01/21 10:41 Consult to Infectious Diseases Routine Consulting Provider: Carmencita Augustine Reason for consultation: Infected foot Has provider been notified: No 07/03/21 12:53 Consult to Infectious Diseases Routine Consulting Provider: Carmencita Augustine Reason for consultation: osteomylitis Has provider been notified: Yes DS: Diagnosis Discharge Diagnosis (1) Osteomyelitis of foot: Status: Acute DS: Summary Hospital Course Hospital Course: Chief Complaint: Infected foot 76-year-old male with a past medical history of diabetes with diabetes foot ulc ers and infections in the past? 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 Hepresents to the hospital with complaints of right lower extremity redness and drainage at the site of previous amputated toe, his is vague on how long this is been an oingoing. The foot is obviously draining purulent discharge with what appears to be an abscess. CRP is over 20.?Xray of the foot shows?Arthritis and subluxation of the second MTP joint questionable forinfection/septic arthritis.?? Hospital course: #He presented with Right foot abscess, possible septic arthritis and acute osteomylitis on xray which was confirmed with MRI with details as below. 1. Resection of the 3rd phalanx with soft tissue ulceration dorsally and?an underlying abscess formation ventral to the 3rd metatarsal head measuring up to 4.7 cm. This extends to the plantar surface of the metatarsal head with probable extension to the plantar soft tissue surface.?Acute osteomyelitis within the 3rd metatarsal. 2. Acute osteomyelitis within the 2nd metatarsal head with a joint effusion which could indicate 2nd metatarsophalangeal septic arthritis. 3. Acute osteomyelitis within the 4th metatarsal head and 4th proximal phalanx without an associated joint effusion.? Dr. Oscar performed I and D. Cultures have been negative but he does have history of MRSA and therefore ID is reocmmending 6 weeks of IV vanco and oral Levaquin. Insurance declined rehab therefore going with home infusion 2. Diabetes--Sliding scale insulin, hold Metformin 3. Chronic Afib--continue Metoprolol and Amiodarone, Eliquis for stroke prevention 4. HLD--Statin 5. HTN--Norvasc, Metoprolol Time Spent with Patient Time attestation: Total time spent providing and/or coordinating discharge services: Discharge coordination time: Greater than 30 minutes Quality: Stroke Does the patient have a stroke diagnosis?: No Physical Exam Vital Signs: Vital Signs: Selected Entries 07/09/21 03:52 Temperature 97.2 F Pulse Rate 59 Respiratory Rate 16 Blood Pressure 161/73 H Pulse Oximetry 96 Oxygen Delivery Me thod Room Air Const: Other: General: AO X 3, no acute distress Resp:? CTA bilateral CVS: S1,S2,RRR GI: +BS, NT, no distention Skin: wound site, dry clean and intact Neuro:? motor grossly intact Psych: appropriate affect DS: Data Data Completed and Pending Completed studies during hospitalization [Text1]: Procedures Detachment at Right 1st Toe, Complete, Open Approach (07/24/20) Dilation of Right Anterior Tibial Artery, Percutaneous Approach (07/24/20) Drainage of Right Foot, Open Approach (07/24/20) Excision of Right Foot Skin, External Approach (11/29/20) Excision of Right Foot Subcutaneous Tissue and Fascia, Open Approach (07/24/20) Insertion of Infusion Device into Superior Vena Cava, Percutaneous Approach (11/29/20) Insertion of Intraluminal Device into Right Internal Iliac Artery, Percutaneous Approach (11/29/20) Labs on day of discharge: Laboratory Results - last 24 hr 07/05/21 07/06/21 07/06/21 11:25 05:31 05:31 Creatinine 1.32 Estim Creat Clear Calc 46.1 Estimated GFR 52 POC Glucose 84 Random Vancomycin 20.1 H Discharge Plan Discharge Anticipated Discharge Date/Time: 07/09/21 11:19 Patient Disposition: Home Health Service Discharge Diagnosis: Osteomyelitis of the foot Referrals: [facility] [Other] - 1 Day (WE NOW HAVE [facility] FOR [facility] TO COME OUT FOR IV ABX RETEACHING AND PIC LINE DRESSING CHANGES AND LABS THEY WILL LOOK AT THE WOUNDS DRESSING BUT YOU AND FAMILY NEED TO CONINUEE TO, LEARN HOW TO DO THIS WITH OTHER FAMILY WELL IV ABX THE NURSE WILL BE OUT TOMORROW AT 10 AM FOR ICV ANTIBIOPTIC AFTER TUESDAY THEY W ILL DISCUS FUTHER HOW OFTEN THEY ARE ABLE TO COME OUT WEEKLY) [facility] [Other] - 1 Week Po,Jayla Goodman MD [Primary Care Provider] - 1 Week Discharge Medications: New levofloxacin 750 mg Tablet 750 mg PO Q48H Qty: 18 0RF vancomycin in 0.9 % sodium chl 750 mg/150 mL piggyback 750 mg IV Q24H 35 Days Qty: 5250 0RF silver-calcium alginate 3/4 X 12 bandage 1 ea topical DAILY Qty: 60 0RF Rx Instructions: apply to foot wound Saline Wound Wash 0.9 % solution 250 ml miscellaneous DAILY Qty: 1000 3RF Rx Instructions: to cleanse wound (DME) Dermacea Non-Woven 4 X 4 sponge See Rx Instructions .Route Qty: 1200 0RF Rx Instructions: As directed daily (DME) Rolled Gauze 4 X 75 bandage See Rx Instructions .Route Qty: 10 0RF Rx Instructions: As directed daily Continued amlodipine 10 mg tablet 10 mg PO DAILY 90 Days Qty: 90 3RF metoprolol succinate 100 mg tablet extended release 24 hr 100 mg PO DAILY Qty: 90 2RF Protocol: Hold for SBP/HR < HOLD for SBP < : 90 HOLD for HR < : 60 metformin 500 mg tablet 500 mg PO BID 90 Days Qty: 180 2RF atorvastatin 10 mg tablet 10 mg PO BEDTIME Qty: 90 0RF mirtazapine 7.5 mg tablet 7.5 mg PO BEDTIME Qty: 30 2RF levothyroxine [Synthroid] 25 mcg tablet 25 mcg PO DAILY 30 Days Qty: 30 2RF cholecalciferol (vitamin D3) 25 mcg (1,000 unit) capsule 25 mcg PO DAILY 0RF Eliquis 5 mg tablet 5 mg PO BID Qty: 60 0RF clopidogrel [Plavix] 75 mg tablet 75 mg PO DAILY Qty: 30 0RF amiodarone 200 mg tablet 200 mg PO DAILY Qty: 30 0RF timolol maleate 0.5 % drops 1 drp ophthalmic-Left DAILY 0RF Discharge Orders: Discharge Order (Routine); Ordered 07/09/21 Ordered By: Vic Martinez Diet: advance to usual diet and diabetic diet Activity on Discharge: As tolerated Stand Alone Forms: Patient Portal Discharge page Activity Restrictions/Additional Instructions: Wound care instructions: Cleanse right amp site and plantar foot with normal saline, then cut a 2 inch piece of silver alginate and tuck 1 inch into wound bed leaving tail out and lay it flat on wound bed, cut another 2 inch piece of silver alginate tuck 1 inch into wound bed leaving tail out and lay it flat on wound bed, cover with non woven gauze and roll gauze. Change on a daily basis recommend follow up with [facility] once a week- [phone] Care Plan Goals: Full recovery from osteomylitis Health Concerns: Osteomylitis Plan of Treatment: IV Vancomycin daily for 35 more days Levaquin 750 mg every other days for 18 more doses Assessment: as above Discharge Date/Time: 07/09/21 13:35
--- NOTE | 2021-07-09 10:20 | MHC.CM.PN ---
Addendum entered by Raquel Mackenzie 07/09/21 11:05: WAS ABLE RO [facility]URE [facility] TO GO OUT FOR NURING TUESDAY -TUE-TUE AFOR IV ABX TREINFRORCEMENT TEACHING AND DRESSING TEACHINGS AND ON TUESDAY FOR PIC LINE DRESISNG CHANGES AND LABS, AT THAT TIME THEY WILL DISCUSS WITH PT FAMILY HOW OFTEEN THEY WILL BE ABLE TO COME OUT I NOTIFED MARCUS JUDY ABOUT THIS AND SHE CALLED AND ALSO CONFIMRE D THIS WIOTH OLIVIA AT [facility] THAT THEY WILL START TOMORROW T.C CALL TO PATIENTS TO INFORM HER OF THIS AND SHE WAS VERY VERY RELIEVED [facility] TRANSPORTATION SET FOR 1PM TODAY Original Note: NURSE SUPERVISOR [employer] NOTE [facility] HAS AGAIN BEEN CALLED AND THEY WILL NOT CONSIDER [facility] OR OTHER NON CONTRACTED AGENCY VNA FOR SERVICES . ELECTRONIC MEDICAL REORD REVIEWED , DISCHARGE PLAN HOME NWITH VIA [facility]EL[facility] VAN) (HAS [facility] WOULD NOT QUALIFY FOR [facility] AND THEY DO NOT SERVICES [facility] WITH WHEELCHAIR VANS PER DISPATCH) 2/ [facility] ALL FINALIZED PAPERWORK FAXED TO THEM NEW D/C INSTRUCTIONS, NEW PICLINE /ABX ORDERS, ABX SCRIPT, VANCO TROPH MEDS.LABS) SENT TO [facility] THEY WILL CALL WITH DELIVEY TIME PER JUDY WITH HOME [facility] COR NURSE WILL GO OUT FOR ABX TEACH TUESDAY SAT SUN- TUESDAY ON TUESDAY THEY WILL CHANGE THE DRSINGS FOR PIC LINE AND DRAW LABS 3.[facility] TRANSPORTATION ([facility] BUT [facility] ONE DOES NNOT PROVIDE WHEELCHAIR VAN COVERAGE TO THE [place] AREA) 4/ DRESSING TO FOOT WILL HAVE HELP FROM FRIEND TO CHANGE THEM. 5, DR LAWSON PCP PATIENT /FAMILY TO CONTRATC FOR POST HOSPITAL DISCHARGE FOLLOW UP 6 MEDICARE IMMM UPDATED AND GIVEN TO PATIENT
[2021-07-09] MEDS: 0.9 % Sodium Chloride Flush 3 ML SYRINGE IVFLUSH (10:39)
[2021-07-09] MEDS: timoloL maleate 0.5 % Oph Sol 5 ML DRBTL 1 DROP EYE-LEFT (10:39)
[2021-07-09] MEDS: vancomycin HCL 750 MG in 0.9 % Sodium Chloride 250 ML 166.67 MG IV (11:13)
--- NOTE | 2021-07-09 11:19 | W.MHC.F2F ---
Service Date Service Date: 07/09/21 Encounter Date of encounter: 07/09/21 Reasons for Services Signs and symptoms assessed: Wound management Reason for fdc: wound care Homebound: Leaving the home is medically contraindicated at this time without the asist of a device and/or another person due th the listed conditions above and below. Reason homebound: unable to drive and other Homebound supporting statement: Homebound due to not able to walk from foot abscess that has reqiures surgery and therefore needs the assistance of another person Certification: Based on the above findings, I certify that this patient is confined to the home and needs intermittent fdc care, physical therapy and/or speech therapy, or continues to need occupational therapy. The patient is under my care, and I have initiated the establishment of the plan of care. The patient will be followed by a physician who will periodically review the plan of care.
[2021-07-09 12:00] VITALS: BP 156/70; PULSE 52; RESP 18; TEMP 36.4; O2SAT 98
== END 2021-07-09 13:35 | disposition home health service (06) | DRG 565 ==
LOC: HO.ED 15:20 → HO.EDOVER 17:12 → HO.S3 07-02 13:15
PROVIDERS: Admitting Provider Internal Medicine; Emergency Provider Emergency Medicine; PCP Internal Medicine; Visit Provider Internal Medicine
DX: T87.43 Infection of amputation stump, right lower extremity (principal); L03.115 Cellulitis of right lower limb; I48.20 Chronic atrial fibrillation, unspecified; M86.171 Other acute osteomyelitis, right ankle and foot; L02.611 Cutaneous abscess of right foot; M00.9 Pyogenic arthritis, unspecified; I48.91 Unspecified atrial fibrillation; E78.5 Hyperlipidemia, unspecified; I10 Essential (primary) hypertension; E11.40 Type 2 diabetes mellitus with diabetic neuropathy, unspecified; E11.628 Type 2 diabetes mellitus with other skin complications; E11.69 Type 2 diabetes mellitus with other specified complication; Z20.822 Contact with and (suspected) exposure to COVID-19; Z86.14 Personal history of Methicillin resistant Staphylococcus aureus infection; Z87.891 Personal history of nicotine dependence; Z79.01 Long term (current) use of anticoagulants; Z90.2 Acquired absence of lung [part of]; Z79.84 Long term (current) use of oral hypoglycemic drugs; Z79.890 Hormone replacement therapy; Z79.899 Other long term (current) drug therapy
CPT/HCPCS: 36415; 36573; 73630; 73720; 80048; 80076; 80202; 82565; 82947; 83605; 83735; 85025; 85610; 85652; 86140; 87040; 87635; 97116; 97161; 99285; A9585; C1751; J2185; J2543; J3370

== ENCOUNTER 2021-07-21 15:27 | Inpatient (IN) | payer MEDICARE, SELFPAY ==
--- NOTE | ~2021-07-21 | CT_ITS ---
EXAMINATION: CT FOOT WITH CONTRAST, RIGHT CLINICAL INFORMATION: History of osteomyelitis on abx, worsening swelling. COMPARISON: Right foot radiograph 06/30/2021. MR right foot 07/01/2021. TECHNIQUE: Axial images obtained through the right foot after intravenous and contrast injection of 85 mL of Omnipaque 350. Coronal and sagittal reformatted images are performed at CT scanner. This CT examination was performed using dose optimization techniques as appropriate, variously including the following: *Automated exposure control. *Adjustment of mA and/or kV according to patient size (this includes techniques or standardized protocols for targeted exams where dose is matched to indication/reason for exam; i.e. extremities or head). *Use of iterative reconstruction technique. DLP: 180 mGy-cm FINDINGS: Great Toe: There has been prior amputation of the great toe through the proximal shaft of the 1st metatarsal. No bone destruction or abnormal periosteal reaction. Second Toe: There is joint narrowing and mild subluxation of the 2nd metatarsophalangeal joint but no bone destruction. Irregularity of the head of the 2nd metatarsal redemonstrated similar prior exam MR and plain film studies of the foot June 2021. Third Toe: There has been amputation of the 3rd toe at the metatarsophalangeal joint. There is no bone destruction of the 3rd metatarsal head and distal diaphyseal shaft consistent with osteomyelitis. This has progressed since the MR study of 07/01/2021. There is now a fracture through this area of the bone with dorsal angulation of the distal fracture fragments. There is significant surrounding edema. There is a small hypodense area in the soft tissues directly adjacent to the head of the metatarsal which could be a small abscess that extends to the skin surface. Image 99/118 series 6. Fourth Toe: No bone destruction or evidence of osteomyelitis. Joint spaces are maintained. Fifth Toe: There is fragmentation or fracture of the head of the 4th metatarsal. This is similar to the prior MR study and plain film exam of 06/30/2021. There is surrounding edema but no abscess. No acute abnormality of the remainder of the foot. CT/CT foot RT w con IMPRESSION: 1. Bone destruction consistent with osteomyelitis and pathologic fracture through the bone of the head and distal shaft of the 3rd metatarsal. This is worse than prior study MR of 07/01/2021. This is consistent with progressive osteomyelitis. 2. Redemonstration of the fracture of the head of the 4th metatarsal similar prior study of 06/30/2021 with surrounding edema but no abscess. Findings remain concerning for osteomyelitis. 3. There is irregularity of the articular surface head of the 2nd metatarsal but no fracture or bone destruction. Osteomyelitis, however, cannot be entirely excluded.
[2021-07-21 15:38] VITALS: BP 140/62; BP 150/50; PULSE 51; PULSE 67; RESP 16; TEMP 37; O2SAT 98; O2SAT 99; BMI 24.7
--- NOTE | 2021-07-21 16:00 | ED.EXTPRO ---
HPI - Extremity Problem General Chief complaint: Extremity Problem Stated complaint: FOOT PAIN FROM WOUND,H/O DM PER EMS Time Seen by Provider: 07/21/21 15:49 Source: patient and EMS Mode of arrival: EMS Limitations: no limitations History of Present Illness HPI Narrative: Patient comes to the emergency room from home. Patient states that his right foot is becoming more red, swollen. Patient has no sensation in his foot due to diabetic neuropathy. Patient denies fever chills. Note, patient was discharged on July 09 from this facility. Patient was diagnosed with an abscess of the right foot, patient had underlying osteomyelitis of the 3rd metatarsal, 2nd metatarsal and 4th metatarsal. Dr. Oscar performed an I&D. Patient was discharged home with a PICC line, 6 weeks of IV vancomycin and oral Levaquin. Patient states that he noted his foot getting larger the last couple of days. Patient states that he has had minimal drainage from the incision sites Related Data Home Medications Medication Instructions Recorded Confirmed cholecalciferol (vitamin D3) 25 25 mcg PO DAILY 04/14/20 07/21/21 mcg (1,000 unit) capsule timolol maleate 0.5 % eye drops 1 drp OPHTHALMIC-LEFT DAILY 08/21/20 07/21/21 metformin 500 mg tablet 500 mg PO BIDWM 07/21/21 07/21/21 Previous Rx's Medication Instructions Recorded amlodipine 10 mg tablet 10 mg PO DAILY 90 Days #90 tab 12/03/20 metoprolol succinate 100 mg 100 mg PO DAILY #90 tab 03/05/21 tablet,extended release 24 hr atorvastatin 10 mg tablet 10 mg PO BEDTIME #90 tab 05/04/21 mirtazapine 7.5 mg tablet 7.5 mg PO BEDTIME #30 tab 05/04/21 amiodarone 200 mg tablet 200 mg PO DAILY #30 tab 05/28/21 apixaban 5 mg tablet (Eliquis) 5 mg PO BID #60 tab 05/28/21 clopidogrel 75 mg tablet (Plavix) 75 mg PO DAILY #30 tab 05/28/21 levothyroxine 25 mcg tablet 25 mcg PO DAILY 30 Days #30 tab 06/16/21 (Synthroid) gauze bandage 4 X 4 sponge #1200 ea 07/08/21 (Dermacea Non-Woven) gauze bandage 4 X 75 (Rolled #10 ea 07/08/21 Gauze) levofloxacin 750 mg tablet 750 mg PO Q48H #18 tab 07/08/21 silver-calcium alginate 3/4 X 12 1 ea TOPICAL DAILY #60 ea 07/08/21 bandage sodium chloride 0.9 % solution 250 ml MISCELLANEOUS DAILY #1000 ml 07/08/21 (Saline Wound Wash) vancomycin 750 mg/150 mL in 0.9% 750 mg (150 mL) IV Q24H 35 Days 07/08/21 sodium chloride intravenous #5250 ml piggyback Allergies Allergy/AdvReac Type Severity Reaction Status Date / Time No Known Allergies Allergy Mild Verified 06/30/21 16:09 Review of Systems Review of Systems: Constitutional : No Weight loss, No Fever, No Chills, No Night Sweats, No Fatigue, No Malaise ENT/Mouth : No Hearing loss, No Ear Pain, No Nasal Congestion, No Sinus Pain, No Hoarseness, No sore throat, No Rhinorrhea, No Swallowing Difficulty Eyes: No Eye Pain, No Swelling, No Redness, No Foreign Body, No Discharge, No Vision Changes Cardiovascular : No Chest Pain, No SOB, No Dyspnea on Exertion, No Orthopnea, No Edema, No Palpitations Respiratory : No Cough, No Sputum, No Wheezing, No Smoke Exposure, No Dyspnea Gastrointestinal : No Nausea, No Vomiting, No Diarrhea, No Constipation, No abdominal Pain, No Hematochezia, No Melena Genitourinary : no irregular bleeding, No Dysuria, No Urinary Frequency, No Hematuria, No Urinary Incontinence, No Urgency, No Flank Pain, No Urinary Flow Changes, No Hesitancy Musculoskeletal : No joint pain, No Myalgias, No Joint Swelling Skin : Increased swelling and redness in the left foot Neuro : No Weakness, No Numbness, No Paresthesias, No Loss of Consciousness, No Dizziness, No Headache Psych : No Anxiety/Panic, No Depression, No SI/HI/AH/VH, No Social Issues, Heme/Lymph: No Bruising, No Bleeding,No Lymphadenopathy Endocrine : No Polyuria, No Polydipsia, No Temperature Intolerance [facility] Past Medical History Medical History Abscess of right foot Anxiety and depression Asthma Atrial fibrillation with rapid ventricular response Avascular necrosis of bone of hip Coronary artery disease Diabetic foot ulcer Diabetic nephropathy Diabetic neuropathy Diverticular disease Hypercholesterolemia Hypertension Open wound Osteomyelitis of toe PAD (peripheral artery disease) Preoperative cardiovascular examination Thrombocytopenia Tobacco abuse Tubular adenoma of colon Type 2 diabetes mellitus with hyperglycemia Type 2 diabetes mellitus with peripheral artery disease Vitamin D deficiency Surgical History Amputated toe of right foot Amputation finger History of cataract surgery History of surgery Family History Family History Father Diabetes Hypertension CVD (cardiovascular disease) Stroke Mother CVD (cardiovascular disease) Hypertension Cancer Sister No problems noted. Son Stroke Social History Social History Household Members: Spouse Household Members Other:: 4 Housing: House Do you presently have visiting nurse or other home services: Yes Alcohol intake: former Patient Tobacco Use Status: Former Tobacco user Tobacco use type: Cigarette Cigarettes Per Day: 7 Years Smoked: 09/2020 stopped e-Cigarette/Vaping Use: Never Used Second Hand Smoke Exposure: No Use of substances other than those prescribed or required for medical reasons: No Advance Directives: Yes Advance Directives on File: Yes Advance Directives Date on File: 07/24/20 service: No Current occupational status: retired Physical Exam Vital Signs: Vital Signs: Last Vital Signs Temp 98.6 F 07/21/21 15:38 Pulse 51 07/21/21 18:54 Resp 17 07/21/21 18:54 BP 155/64 H 07/21/21 18:54 Pulse Ox 99 07/21/21 18:54 BMI result Body Mass Index 24.7 Const: Other: Appearance: Alert. Oriented X3. No acute distress. Eyes: Pupils equal, round and reactive to light. ENT: Pharynx normal. Neck: Normal inspection. Neck supple. No lymph nodes noted. No crepitus CVS: Normal heart rate and rhythm. Pulses normal. Normal S1 and S2 Respiratory: No respiratory distress. Breath sounds normal. No Wheezing. No rales Abdomen: Soft and nontender. No rigidity. No distention. Skin: Skin warm and dry. Normal skin color. Normal skin turgor. Extremities: Right lower extremity edema trace pitting edema, has 2 toes amputated, patient has no sensation in his foot. No significant drainage, only dried scabs Neuro: Oriented X 3. No motor deficit. No sensory deficit. Moving all extremities. No slurred speech. CN 2 through 12 grossly intact Psych: calm, cooperative, normal affect Course Course Course Narrative: Patient's white blood cell count within normal limits, lactic slightly bumped, creatinine is 1.4. Patient will be receiving IV fluids. At this time, sepsis is not suspected. Patient is already on oral Levaquin and IV vancomycin. CT scan of the foot pending CT scan shows that there is worsening bone destruction from osteomyelitis. At this time, given the patient's vanc trough, we will not be given more vancomycin at this time. But we will start meropenem I discussed the patient with Dr. Munoz, pt beign admitted MDM - Extremity (Nontraumatic) Lab Data Result diagrams: 07/21/21 16:45 07/21/21 16:45 Labs: Lab Results 07/21/21 07/21/21 07/21/21 Range/Units 16:45 16:45 16:45 WBC 8.7 (4.8-10.8) X10*3/uL RBC 3.39 L (4.60-5.80) X10*6/uL Hgb 10.2 L (14.0-18.0) g/dl Hct 31.6 L (42.0-52.0) % MCV 93.2 (80.0-98.0) fL MCH 30.1 (27.0-33.0) pg MCHC 32.3 (31.0-36.0) g/dl RDW 14.5 (11.0-16.0) % Plt Count 304 (160-400) X10*3/uL MPV 10.4 (9.4-12.4) fL Immature Gran % (Auto) 0.3 (0.0-0.4) % Neut % (Auto) 71.7 (45-73) % Lymph % (Auto) 11.8 L (20-40) % Desha % (Auto) 7.1 (2-11) % Eos % (Auto) 8.6 H (0-4) % Baso % (Auto) 0.5 (0-2) % Lymph # (Auto) 1.0 L (1.2-4.9) X10*3/uL [place] # (Auto) 0.6 (0.1-1.2) X10*3/uL Eos # (Auto) 0.8 H (0.0-0.4) X10*3/uL Baso # (Auto) 0.0 (0.0-0.2) X10*3/uL Abs Immat Gran (auto) 0.03 (0.00-0.03) X10*3/uL Absolute Neuts (auto) 6.2 (2.0-8.3) x10*3/uL Absolute Nucleated RBC 0.000 (0.0-0.012) X10*3/uL Nucleated RBC % (auto) 0.0 (0.0-0.2) /100WBC Sodium 140 (135-145) mmol/L Potassium 4.7 (3.3-5.1) mmol/L Chloride 105 (96-108) mmol/L Carbon Dioxide 26 (22-29) mmol/L Anion Gap 14 (12-20) BUN 24 H (9-16) mg/dL Creatinine 1.44 H (0.5-1.4) mg/dL Estim Creat Clear Calc 42.2 Estimated GFR 47 Random Glucose 93 (60-115) mg/dL Lactic Acid 2.6 H* (0.5-2.0) mmol/L Lactic Acid F/U @ 2Hr (0.5-2.0) mmol/L Calcium 8.9 (8.4-10.2) mg/dL Total Bilirubin 0.3 (0.0-1.0) mg/dL Direct Bilirubin 0.2 (0.0-0.5) mg/dL AST 43 H (5-37) U/L ALT 32 (0-40) U/L Alkaline Phosphatase 109 (39-117) U/L Total Protein 6.5 (6.5-8.0) g/dL Albumin 3.3 L (3.5-5.0) g/dL Random Vancomycin (15-20) mcg/mL 07/21/21 07/21/21 Range/Units 16:45 19:10 WBC (4.8-10.8) X10*3/uL RBC (4.60-5.80) X10*6/uL Hgb (14.0-18.0) g/dl Hct (42.0-52.0) % MCV (80.0-98.0) fL MCH (27.0-33.0) pg MCHC (31.0-36.0) g/dl RDW (11.0-16.0) % Plt Count (160-400) X10*3/uL MPV (9.4-12.4) fL Immature Gran % (Auto) (0.0-0.4) % Neut % (Auto) (45-73) % Lymph % (Auto) (20-40) % Desha % (Auto) (2-11) % Eos % (Auto) (0-4) % Baso % (Auto) (0-2) % Lymph # (Auto) (1.2-4.9) X10*3/uL [place] # (Auto) (0.1-1.2) X10*3/uL Eos # (Auto) (0.0-0.4) X10*3/uL Baso # (Auto) (0.0-0.2) X10*3/uL Abs Immat Gran (auto) (0.00-0.03) X10*3/uL Absolute Neuts (auto) (2.0-8.3) x10*3/uL Absolute Nucleated RBC (0.0-0.012) X10*3/uL Nucleated RBC % (auto) (0.0-0.2) /100WBC Sodium (135-145) mmol/L Potassium (3.3-5.1) mmol/L Chloride (96-108) mmol/L Carbon Dioxide (22-29) mmol/L Anion Gap (12-20) BUN (9-16) mg/dL Creatinine (0.5-1.4) mg/dL Estim Creat Clear Calc Estimated GFR Random Glucose (60-115) mg/dL Lactic Acid (0.5-2.0) mmol/L Lactic Acid F/U @ 2Hr 1.5 (0.5-2.0) mmol/L Calcium (8.4-10.2) mg/dL Total Bilirubin (0.0-1.0) mg/dL Direct Bilirubin (0.0-0.5) mg/dL AST (5-37) U/L ALT (0-40) U/L Alkaline Phosphatase (39-117) U/L Total Protein (6.5-8.0) g/dL Albumin (3.5-5.0) g/dL Random Vancomycin 20.9 H (15-20) mcg/mL Imaging Data CT of foot: Radiologist's impression: FINDINGS: Great Toe: There has been prior amputation of the great toe through the proximal shaft of the 1st metatarsal. No bone destruction or abnormal periosteal reaction. Second Toe: There is joint narrowing and mild subluxation of the 2nd metatarsophalangeal joint but no bone destruction. Irregularity of the head of the 2nd metatarsal redemonstrated similar prior exam MR and plain film studies of the foot June 2021. Third Toe: There has been amputation of the 3rd toe at the metatarsophalangeal joint. There is no bone destruction of the 3rd metatarsal head and distal diaphyseal shaft consistent with osteomyelitis. This has progressed since the MR study of 07/01/2021. There is now a fracture through this area of the bone with dorsal angulation of the distal fracture fragments. There is significant surrounding edema. There is a small hypodense area in the soft tissues directly adjacent to the head of the metatarsal which could be a small abscess that extends to the skin surface. Image 99/118 series 6. Fourth Toe: No bone destruction or evidence of osteomyelitis. Joint spaces are maintained. Fifth Toe: There is fragmentation or fracture of the head of the 4th metatarsal. This is similar to the prior MR study and plain film exam of 06/30/2021. There is surrounding edema but no abscess. No acute abnormality of the remainder of the foot. CT/CT foot RT w con IMPRESSION: 1. Bone destruction consistent with osteomyelitis and pathologic fracture through the bone of the head and distal shaft of the 3rd metatarsal. This is worse than prior study MR of 07/01/2021. This is consistent with progressive osteomyelitis. ? 2. Redemonstration of the fracture of the head of the 4th metatarsal similar prior study of 06/30/2021 with surrounding edema but no abscess. Findings remain concerning for osteomyelitis. ? 3. There is irregularity of the articular surface head of the 2nd metatarsal but no fracture or bone destruction. Osteomyelitis, however, cannot be entirely excluded. Discharge Plan Discharge Clinical Impression: Osteomyelitis of foot Patient Disposition: Admitted As Inpatient Prescriptions: No Action amlodipine 10 mg tablet 10 mg PO DAILY 90 Days Qty: 90 3RF metoprolol succinate 100 mg tablet extended release 24 hr 100 mg PO DAILY Qty: 90 2RF Protocol: Hold for SBP/HR < HOLD for SBP < : 90 HOLD for HR < : 60 atorvastatin 10 mg tablet 10 mg PO BEDTIME Qty: 90 0RF mirtazapine 7.5 mg tablet 7.5 mg PO BEDTIME Qty: 30 2RF levothyroxine [Synthroid] 25 mcg tablet 25 mcg PO DAILY 30 Days Qty: 30 2RF metformin 500 mg tablet 500 mg PO BIDWM 0RF levofloxacin 750 mg Tablet 750 mg PO Q48H Qty: 18 0RF vancomycin in 0.9 % sodium chl 750 mg/150 mL piggyback 750 mg IV Q24H 35 Days Qty: 5250 0RF silver-calcium alginate 3/4 X 12 bandage 1 ea topical DAILY Qty: 60 0RF Rx Instructions: apply to foot wound Saline Wound Wash 0.9 % solution 250 ml miscellaneous DAILY Qty: 1000 3RF Rx Instructions: to cleanse wound (DME) Dermacea Non-Woven 4 X 4 sponge See Rx Instructions .Route Qty: 1200 0RF Rx Instructions: As directed daily (DME) Rolled Gauze 4 X 75 bandage See Rx Instructions .Route Qty: 10 0RF Rx Instructions: As directed daily cholecalciferol (vitamin D3) 25 mcg (1,000 unit) capsule 25 mcg PO DAILY 0RF Eliquis 5 mg tablet 5 mg PO BID Qty: 60 0RF clopidogrel [Plavix] 75 mg tablet 75 mg PO DAILY Qty: 30 0RF amiodarone 200 mg tablet 200 mg PO DAILY Qty: 30 0RF timolol maleate 0.5 % drops 1 drp ophthalmic-Left DAILY 0RF
[2021-07-21 16:52] LABS: Basophils Percent Auto 0.5 % (0-2); Eosinophils Absolute Auto 0.8 X10*3/uL (0.0-0.4); Eosinophils Percent Auto 8.6 % (0-4); Hematocrit 31.6 % (42.0-52.0); Hemoglobin 10.2 g/dl (14.0-18.0); Imm Gran Abs Auto 0.03 X10*3/uL (0.00-0.03); Imm Gran Pct Auto 0.3 % (0.0-0.4); Lymphocytes Percent Auto 11.8 % (20-40); MANUAL DIFF FLAG NO; Mean Corpuscular HGB Conc 32.3 g/dl (31.0-36.0); Mean Corpuscular Hemoglobin 30.1 pg (27.0-33.0); Mean Corpuscular Volume 93.2 fL (80.0-98.0); Mean Platelet Volume 10.4 fL (9.4-12.4); Monocytes Absolute Auto 0.6 X10*3/uL (0.1-1.2); Monocytes Percent Auto 7.1 % (2-11); Neutrophils Absolute Auto 6.2 x10*3/uL (2.0-8.3); Neutrophils Percent Auto 71.7 % (45-73); Platelet Count 304 X10*3/uL (160-400); Red Blood Count 3.39 X10*6/uL (4.60-5.80); Red Cell Distribution Width 14.5 % (11.0-16.0); White Blood Count 8.7 X10*3/uL (4.8-10.8)
[2021-07-21 17:13] LABS: Lactic Acid 2.6 mmol/L (0.5-2.0)
[2021-07-21 17:15] LABS: Alanine Aminotransferase 32 U/L (0-40); Albumin Level 3.3 g/dL (3.5-5.0); Alkaline Phosphatase 109 U/L (39-117); Anion Gap 14 (12-20); Aspartate Amino Transferase 43 U/L (5-37); Bilirubin Direct 0.2 mg/dL (0.0-0.5); Bilirubin Total 0.3 mg/dL (0.0-1.0); Blood Urea Nitrogen 24 mg/dL (9-16); Calcium 8.9 mg/dL (8.4-10.2); Carbon Dioxide 26 mmol/L (22-29); Chloride 105 mmol/L (96-108); Creatinine Clr Calc Pharmacy 42.2; Estimated Glomerular Filt Rate 47; Glucose Random 93 mg/dL (60-115); Potassium 4.7 mmol/L (3.3-5.1); Sodium 140 mmol/L (135-145); Total Protein 6.5 g/dL (6.5-8.0)
[2021-07-21 17:23] LABS: Vancomycin Random 20.9 mcg/mL (15-20)
--- NOTE | 2021-07-21 17:40 | PHA.MEDREC ---
Pharmacy Consult ? Medication Reconciliation Pharmacy has completed the medication reconciliation.
[2021-07-21] MEDS: iohexoL 350 MG/ML 100 ML INFUS..BTL IV (17:43)
[2021-07-21] MEDS: 0.9 % Sodium Chloride 1,000 ML 999 ML IVCONT (17:56)
[2021-07-21 17:57] VITALS: BP 142/52; PULSE 50; RESP 16; O2SAT 98
[2021-07-21 18:49] LABS: Reflex Lactate? Lactic Acid Added
[2021-07-21 18:54] VITALS: BP 155/64; PULSE 51; RESP 17; O2SAT 99
[2021-07-21 19:28] LABS: ~Lactic Acid-LAB USE ONLY 1.5 mmol/L (0.5-2.0)
[2021-07-21 21:18] VITALS: BP 159/62; PULSE 54; RESP 16; O2SAT 98
[2021-07-21 21:58] LABS: Erythrocyte Sedimentation Rate 66 MM/HR (0-15)
--- NOTE | 2021-07-21 22:35 | PM.IMHP ---
History of Present Illness Date of Service: 07/21/21 Chief Complaint: swollen leg this is a 68-year-old male with past medical history of diabetes, neuropathy, complicated by osteomyelitis with recent amputation in June of the right toe, hypertension, coronary artery disease, PA D, hyperlipidemia, presents to the hospital with complaints of swelling, and redness of right foot at the site of recent amputation. Patient denies any fever or chills, reports neuropathy therefore does not have any sensation of pain. Denies any chest pain, no shortness of breath no abdominal pain nausea or vomiting, no diarrhea constipation, no urinary symptoms and no lower extremity edema other than the at the site of the infection. Patient reports that he noted some clear drainage. in July 09 patient was discharged home on vancomycin and Levaquin and reports compliance. On arrival to the ED patient hemodynamically stable with no significant abnormal vitals except for bradycardia Labs are significant for WBC count of 8.7, hemoglobin of 10.2, hematocrit 31.6, ESR 66, creatinine of 1.44 with a baseline around 1.3, lactic acid of 2.6, CRP of 3.7, CT of the foot showed bone destruction consistent with osteomyelitis and pathological fracture through the bone of the head and distal shaft of the 3rd metatarsal, this is worse than prior study MRI on 07/01. Patient will be admitted for further management Review of Systems Review of Systems: Yes all other systems are reviewed and are negative [facility] Medical History Abscess of right foot Anxiety and depression Asthma Atrial fibrillation with rapid ventricular response Avascular necrosis of bone of hip Coronary artery disease Diabetic foot ulcer Diabetic nephropathy Diabetic neuropathy Diverticular disease Hypercholesterolemia Hypertension Open wound Osteomyelitis of toe PAD (peripheral artery disease) Preoperative cardiovascular examination Thrombocytopenia Tobacco abuse Tubular adenoma of colon Type 2 diabetes mellitus with hyperglycemia Type 2 diabetes mellitus with peripheral artery disease Vitamin D deficiency Family History Father Diabetes Hypertension CVD (cardiovascular disease) Stroke Mother CVD (cardiovascular disease) Hypertension Cancer Sister No problems noted. Son Stroke Surgical History Amputated toe of right foot Amputation finger History of cataract surgery History of surgery Social History Household Members: Spouse Household Members Other:: 4 Housing: House Do you presently have visiting nurse or other home services: Yes Alcohol intake: former Patient Tobacco Use Status: Former Tobacco user Tobacco use type: Cigarette Cigarettes Per Day: 7 Years Smoked: 09/2020 stopped e-Cigarette/Vaping Use: Never Used Second Hand Smoke Exposure: No Use of substances other than those prescribed or required for medical reasons: No Advance Directives: Yes Advance Directives on File: Yes Advance Directives Date on File: 07/24/20 service: No Current occupational status: retired Meds Allergies Allergy/AdvReac Type Severity Reaction Status Date / Time No Known Allergies Allergy Mild Verified 06/30/21 16:09 Home Medications Medication Instructions Recorded Confirmed Last Taken Type cholecalciferol (vitamin D3) 25 25 mcg PO DAILY 04/14/20 07/21/21 07/21/21 History mcg (1,000 unit) capsule timolol maleate 0.5 % eye drops 1 drp OPHTHALMIC-LEFT DAILY 08/21/20 07/21/21 07/21/21 History metformin 500 mg tablet 500 mg PO BIDWM 07/21/21 07/21/21 07/21/21 History Physical Exam Vital Signs and Narrative: Vital Signs: Last Vital Signs Temp 98.6 F 07/21/21 15:38 Pulse 54 07/21/21 21:18 Resp 16 07/21/21 21:18 BP 159/62 H 07/21/21 21:18 Pulse Ox 98 07/21/21 21:18 BMI result Body Mass Index 24.7 Const: General: cooperative and no acute distress Orientation/consciousness: patient oriented x3 Eyes: General: appearance normal, both eyes and all related structures Pupils: Equal, round and reactive pupils present Resp: Effort & Inspection: normal respiratory effort Auscultation: clear to auscultation bilaterally Cardio: Rate: regular rate Rhythm: regular rhythm GI: Palpation (GI): Soft to palpation Auscultation: normal bowel sounds Neuro: General: patient oriented x3 Cranial nerves: Yes Equal, round and reactive pupils present Cognition (Neuro): normal cognition Extrem: Other: right lower extremity swelling at the site of previous amputation site erythema and edema Results Labs CBC and Chem 7: 07/22/21 06:47 07/21/21 16:45 Labs: Laboratory Results - last 24 hr 07/21/21 07/21/21 07/21/21 16:45 16:45 16:45 MCV 93.2 MCH 30.1 MCHC 32.3 RDW 14.5 Plt Count 304 MPV 10.4 Immature Gran % (Auto) 0.3 Neut % (Auto) 71.7 Lymph % (Auto) 11.8 L [place] % (Auto) 7.1 Eos % (Auto) 8.6 H Baso % (Auto) 0.5 Lymph # (Auto) 1.0 L [place] # (Auto) 0.6 Eos # (Auto) 0.8 H Baso # (Auto) 0.0 Abs Immat Gran (auto) 0.03 Absolute Neuts (auto) 6.2 Absolute Nucleated RBC 0.000 Nucleated RBC % (auto) 0.0 ESR Anion Gap 14 Estim Creat Clear Calc 42.2 Estimated GFR 47 Random Glucose 93 Lactic Acid 2.6 H* Lactic Acid F/U @ 2Hr Calcium 8.9 Total Bilirubin 0.3 Direct Bilirubin 0.2 AST 43 H ALT 32 Alkaline Phosphatase 109 C-Reactive Protein 3.70 H Total Protein 6.5 Albumin 3.3 L Random Vancomycin 07/21/21 07/21/21 07/21/21 16:45 16:45 19:10 MCV MCH MCHC RDW Plt Count MPV Immature Gran % (Auto) Neut % (Auto) Lymph % (Auto) [place] % (Auto) Eos % (Auto) Baso % (Auto) Lymph # (Auto) [place] # (Auto) Eos # (Auto) Baso # (Auto) Abs Immat Gran (auto) Absolute Neuts (auto) Absolute Nucleated RBC Nucleated RBC % (auto) ESR 66 H Anion Gap Estim Creat Clear Calc Estimated GFR Random Glucose Lactic Acid Lactic Acid F/U @ 2Hr 1.5 Calcium Total Bilirubin Direct Bilirubin AST ALT Alkaline Phosphatase C-Reactive Protein Total Protein Albumin Random Vancomycin 20.9 H Imaging Radiologist's Impressions: Impressions Foot CT 07/21/21 17:58 IMPRESSION: 1. Bone destruction consistent with osteomyelitis and pathologic fracture through the bone of the head and distal shaft of the 3rd metatarsal. This is worse than prior study MR of 07/01/2021. This is consistent with progressive osteomyelitis. 2. Redemonstration of the fracture of the head of the 4th metatarsal similar prior study of 06/30/2021 with surrounding edema but no abscess. Findings remain concerning for osteomyelitis. 3. There is irregularity of the articular surface head of the 2nd metatarsal but no fracture or bone destruction. Osteomyelitis, however, cannot be entirely excluded. Assessment and Plan (1) Osteomyelitis of foot: Status: Acute (2) Cellulitis: Qualifiers: Laterality: right Site of cellulitis: extremity Site of cellulitis of extremity: lower extremity Qualified Code(s): L03.115 - Cellulitis of right lower limb Status: Acute Plan 76-year-old male history of diabetic neuropathy status post osteomyelitis as well as amputated right her toes x2 presents with worsening she myelitis # osteomyelitis of right foot - CT findings as above, has edema, and erythema at this time - was on Levaquin and vancomycin at home since discharge on 07/09 post amputation - at this time will start on meropenem and vancomycin given sensitivity - id consult - surgery consult for possible I&D of further amputation # diabetes - low-dose sliding scale insulin, diabetic diet # hypothyroidism - continue levothyroxine # history of CAD/ PVD - continue home medications DVT prophylaxis: Aerob Stroke Does the patient have a stroke diagnosis?: No VTE Prior VTE?: No VTE Risk Level:: Medical - moderate - high VTE Device Contraindication: Treatment Not Indicated VTE Drug Contraindication: N/A - Med Ordered
[2021-07-22] VITALS (9 sets, daily range): BP systolic 139–169; BP diastolic 49–83; PULSE 46–79; RESP 15–20; TEMP 36.4; O2SAT 96–100
[2021-07-22] MEDS: 0.9 % Sodium Chloride Flush 3 ML SYRINGE IVFLUSH ×2 (00:28→09:02)
[2021-07-22 07:10] LABS: MANUAL DIFF FLAG NO
[2021-07-22 07:15] LABS: Basophils Absolute Auto 0.1 X10*3/uL (0.0-0.2); Basophils Percent Auto 0.5 % (0-2); Eosinophils Absolute Auto 1.1 X10*3/uL (0.0-0.4); Eosinophils Percent Auto 12.1 % (0-4); Hematocrit 34.7 % (42.0-52.0); Hemoglobin 11.1 g/dl (14.0-18.0); Imm Gran Abs Auto 0.04 X10*3/uL (0.00-0.03); Imm Gran Pct Auto 0.4 % (0.0-0.4); Lymphocytes Absolute Auto 1.2 X10*3/uL (1.2-4.9); Lymphocytes Percent Auto 12.6 % (20-40); Mean Corpuscular Hemoglobin 29.4 pg (27.0-33.0); Mean Corpuscular Volume 91.8 fL (80.0-98.0); Mean Platelet Volume 10.7 fL (9.4-12.4); Monocytes Absolute Auto 0.8 X10*3/uL (0.1-1.2); Neutrophils Absolute Auto 6.1 x10*3/uL (2.0-8.3); Neutrophils Percent Auto 65.4 % (45-73); Platelet Count 318 X10*3/uL (160-400); Red Blood Count 3.78 X10*6/uL (4.60-5.80); Red Cell Distribution Width 14.4 % (11.0-16.0); White Blood Count 9.3 X10*3/uL (4.8-10.8)
[2021-07-22 07:36] LABS: Glucose, Whole Blood 83 mg/dL (60-115)
[2021-07-22 07:40] LABS: Anion Gap 12 (12-20); Blood Urea Nitrogen 19 mg/dL (9-16); Calcium 9.3 mg/dL (8.4-10.2); Carbon Dioxide 26 mmol/L (22-29); Chloride 104 mmol/L (96-108); Creatinine Clr Calc Pharmacy 51.1; Estimated Glomerular Filt Rate 59; Glucose Random 92 mg/dL (60-115); Potassium 4.9 mmol/L (3.3-5.1); Sodium 137 mmol/L (135-145)
[2021-07-22] MEDS: amLODIPine Besylate 10 MG TABLET PO (09:01)
[2021-07-22] MEDS: Metoprolol Succinate ER 100 MG TAB.ER.24H PO (09:01)
[2021-07-22] MEDS: Levothyroxine Sodium 25 MCG TABLET PO (09:01)
[2021-07-22] MEDS: Cholecalciferol (Vitamin D3) 25 MCG TABLET PO (09:02)
[2021-07-22] MEDS: Clopidogrel Bisulfate 75 MG TABLET PO (09:02)
[2021-07-22] MEDS: Apixaban 5 MG TABLET PO ×2 (09:02→20:23)
[2021-07-22] MEDS: Amiodarone HCL 200 MG TABLET PO (09:02)
[2021-07-22 09:11] LABS: COVID-19 Test Negative (Negative); IDNOW Serial# 55D5AD1C
--- NOTE | 2021-07-22 09:46 | MHC.CM.PN ---
PT REPORTS HE LIVES WITH HIS AND SON AND IS INDEPENDENT WITH CARE AT [facility] PT REPORTS HE HAS A WALKER HE USES PRN AND HAS BEEN RECEIVING [facility] THROUGH [facility] PT CONFIRMS HIS PCP IS MEAGAN LAWSON AND HE HAS A HCP ON FILE PT DENIES BEING COVID-19 VACCINATED IMM DELIVERED, COPY SENT TO [facility] CURRENT DC PLAN IS HOME WITH RESUMPTION OF [facility] FAMILY TO TRANSPORT
[2021-07-22] MEDS: timoloL maleate 0.5 % Oph Sol 5 ML DRBTL 1 DROP EYE-LEFT (10:14)
[2021-07-22] MEDS: Lactated Ringers 1,000 ML 100 ML IVCONT ×2 (10:14→20:23)
--- NOTE | 2021-07-22 12:22 | P.CONGS_ITS ---
History of Present Illness Consult details Consult date: 07/22/21 Narrative: 76M referred for osteomyelitis. He is know to the surgial service for multiple toe amputations in the past. He was just dischared from the hospital last week. He says he was worried last night that the entire foot was swollen. He denies severe pain. He denies any fever or chills. there has been no drainage from the right foot. He has had ulcers on this foot as well, but these seem to be dry. Review of Systems Constitutional: Constitutional: Denies chills and Denies fever(s) Cardiovascular: Cardiovascular: Denies chest pain, Denies dyspnea and Denies dyspnea on exertion Respiratory: Respiratory: Denies cough, Denies dyspnea and Denies dyspnea on exertion Gastrointestinal: Gastrointestinal: Denies hematochezia and Denies change in bowel habits Genitourinary: Genitourinary: Denies hematuria and Denies difficulty urinating Musculoskeletal: Musculoskeletal: Denies back pain and Denies limited range of motion Neurologic: Denies focal weakness and Denies convulsions Psychiatric: Psychiatric: Denies depression and Denies mood swings PMF Past Medical History Medical History Abscess of right foot Anxiety and depression Asthma Atrial fibrillation with rapid ventricular response Avascular necrosis of bone of hip Coronary artery disease Diabetic foot ulcer Diabetic nephropathy Diabetic neuropathy Diverticular disease Hypercholesterolemia Hypertension Open wound Osteomyelitis of toe PAD (peripheral artery disease) Preoperative cardiovascular examination Thrombocytopenia Tobacco abuse Tubular adenoma of colon Type 2 diabetes mellitus with hyperglycemia Type 2 diabetes mellitus with peripheral artery disease Vitamin D deficiency Family History Family History Father Diabetes Hypertension CVD (cardiovascular disease) Stroke Mother CVD (cardiovascular disease) Hypertension Cancer Sister No problems noted. Son Stroke Surgical History Surgical History Amputated toe of right foot Amputation finger History of cataract surgery History of surgery Social History Social History Household Members: Spouse Household Members Other:: 4 Housing: House Do you presently have visiting nurse or other home services: Yes Alcohol intake: former Patient Tobacco Use Status: Former Tobacco user Tobacco use type: Cigarette Cigarettes Per Day: 7 Years Smoked: 09/2020 stopped e-Cigarette/Vaping Use: Never Used Second Hand Smoke Exposure: No Use of substances other than those prescribed or required for medical reasons: No Advance Directives: Yes Advance Directives on File: Yes Advance Directives Date on File: 07/24/20 service: No Current occupational status: retired Meds Allergies Allergy/AdvReac Type Severity Reaction Status Date / Time No Known Allergies Allergy Mild Verified 06/30/21 16:09 Active Medications: Current Medications Acetaminophen (Acetaminophen 325 Mg Tablet) 650 mg PO Q6H PRN PRN Reason: Pain, Mild (Pain Scale 1-3) Amiodarone HCl (Amiodarone Hcl 200 Mg Tablet) 200 mg PO DAILY [facility] Last Admin: 07/22/21 09:02 Dose: 200 mg Documented by: Amlodipine Besylate (Amlodipine Besylate 10 Mg Tablet) 10 mg PO DAILY [facility]; Protocol Last Admin: 07/22/21 09:01 Dose: 10 mg Documented by: Apixaban (Apixaban 5 Mg Tablet) 5 mg PO BID [facility] Last Admin: 07/22/21 09:02 Dose: 5 mg Documented by: Atorvastatin Calcium (Atorvastatin Calcium 10 Mg Tablet) 10 mg PO BEDTIME [facility] Clopidogrel Bisulfate (Clopidogrel Bisulfate 75 Mg Tablet) 75 mg PO DAILY [facility] Last Admin: 07/22/21 09:02 Dose: 75 mg Documented by: Docusate Sodium (Docusate Sodium 100 Mg Capsule) 100 mg PO DAILY PRN PRN Reason: Constipation Meropenem 1 gm/ Sodium (Chloride) 100 mls @ 200 mls/hr IV Q12H [facility] Last Infusion: 07/22/21 09:35 Dose: Infused Documented by: Lactated Ringer's (Lr) 1,000 mls @ 100 mls/hr IVCONT .Q10H [facility] Last Admin: 07/22/21 10:14 Dose: 100 mls/hr Documented by: Levothyroxine Sodium (Levothyroxine Sodium 25 Mcg Tablet) 25 mcg PO DAILY@0600 [facility] Last Admin: 07/22/21 09:01 Dose: 25 mcg Documented by: Metoprolol Succinate (Metoprolol Succinate Er 100 Mg Tab.Er.24h) 100 mg PO DAILY [facility]; Protocol Last Admin: 07/22/21 09:01 Dose: 100 mg Documented by: Mirtazapine (Mirtazapine 7.5 Mg Tablet) 7.5 mg PO BEDTIME [facility] Ondansetron HCl (Ondansetron Hcl 4 Mg/2 Ml Vial) 4 mg IVPUSH Q8H PRN PRN Reason: Nausea and Vomiting Sodium Chloride (0.9 % Sodium Chloride Flush 3 Ml Syringe) 3 ml IVFLUSH QSHIFT [facility] Last Admin: 07/22/21 09:02 Dose: 3 ml Documented by: Timolol Maleate (Timolol Maleate 0.5 % Oph [place] 5 Ml Drbtl) 1 drop EYE-LEFT DAILY [facility] Last Admin: 07/22/21 10:14 Dose: 1 drop Documented by: Vitamin D (Cholecalciferol (Vitamin D3) 25 Mcg Tablet) 25 mcg PO DAILY [facility] Last Admin: 07/22/21 09:02 Dose: 25 mcg Documented by: Home Medications Medication Instructions Recorded Confirmed Last Taken Type cholecalciferol (vitamin D3) 25 25 mcg PO DAILY 04/14/20 07/21/21 07/21/21 History mcg (1,000 unit) capsule timolol maleate 0.5 % eye drops 1 drp OPHTHALMIC-LEFT DAILY 08/21/20 07/21/21 07/21/21 History metformin 500 mg tablet 500 mg PO BIDWM 07/21/21 07/21/21 07/21/21 History Physical Exam Vital Signs: Vital Signs: Last Vital Signs Temp 97.6 F 07/22/21 07:02 Pulse 46 L 07/22/21 11:21 Resp 18 07/22/21 11:21 BP 151/60 H 07/22/21 11:21 Pulse Ox 96 07/22/21 11:21 BMI result Body Mass Index 24.7 Const: General: comfortable and no acute distress Orientation/consciousness: patient oriented x3 Neck: Neck: Yes no lymphadenopathy Resp: Auscultation: clear to auscultation bilaterally Cardio: Rhythm: regular rhythm GI: Palpation (GI): Soft to palpation, nontender and no guarding Neuro: General: patient oriented x3 Extrem: Other: some edema of the right foot, area of redness at the dorsum; old amputation site big toe and 3rd toe both wellhealed dry; 2 small ulcers on plantar aspect also dry, no active drainage Results Labs Result diagrams: 07/22/21 06:47 07/22/21 06:47 Labs: Abnormal lab results 07/21/21 07/21/21 07/21/21 Range/Units 16:45 16:45 16:45 RBC 3.39 L (4.60-5.80) X10*6/uL Hgb 10.2 L (14.0-18.0) g/dl Hct 31.6 L (42.0-52.0) % Lymph % (Auto) 11.8 L (20-40) % Eos % (Auto) 8.6 H (0-4) % Lymph # (Auto) 1.0 L (1.2-4.9) X10*3/uL Eos # (Auto) 0.8 H (0.0-0.4) X10*3/uL Abs Immat Gran (auto) (0.00-0.03) X10*3/uL ESR (0-15) MM/HR BUN 24 H (9-16) mg/dL Creatinine 1.44 H (0.5-1.4) mg/dL Lactic Acid 2.6 H* (0.5-2.0) mmol/L AST 43 H (5-37) U/L C-Reactive Protein 3.70 H (< or = 0.50) mg/dL Albumin 3.3 L (3.5-5.0) g/dL Random Vancomycin (15-20) mcg/mL 07/21/21 07/21/21 07/22/21 Range/Units 16:45 16:45 06:47 RBC 3.78 L (4.60-5.80) X10*6/uL Hgb 11.1 L (14.0-18.0) g/dl Hct 34.7 L (42.0-52.0) % Lymph % (Auto) 12.6 L (20-40) % Eos % (Auto) 12.1 H (0-4) % Lymph # (Auto) (1.2-4.9) X10*3/uL Eos # (Auto) 1.1 H (0.0-0.4) X10*3/uL Abs Immat Gran (auto) 0.04 H (0.00-0.03) X10*3/uL ESR 66 H (0-15) MM/HR BUN (9-16) mg/dL Creatinine (0.5-1.4) mg/dL Lactic Acid (0.5-2.0) mmol/L AST (5-37) U/L C-Reactive Protein (< or = 0.50) mg/dL Albumin (3.5-5.0) g/dL Random Vancomycin 20.9 H (15-20) mcg/mL 07/22/21 Range/Units 06:47 RBC (4.60-5.80) X10*6/uL Hgb (14.0-18.0) g/dl Hct (42.0-52.0) % Lymph % (Auto) (20-40) % Eos % (Auto) (0-4) % Lymph # (Auto) (1.2-4.9) X10*3/uL Eos # (Auto) (0.0-0.4) X10*3/uL Abs Immat Gran (auto) (0.00-0.03) X10*3/uL ESR (0-15) MM/HR BUN 19 H (9-16) mg/dL Creatinine (0.5-1.4) mg/dL Lactic Acid (0.5-2.0) mmol/L AST (5-37) U/L C-Reactive Protein (< or = 0.50) mg/dL Albumin (3.5-5.0) g/dL Random Vancomycin (15-20) mcg/mL Short CBC 07/21/21 07/22/21 Range/Units 16:45 06:47 WBC 8.7 9.3 (4.8-10.8) X10*3/uL Hgb 10.2 L 11.1 L (14.0-18.0) g/dl Hct 31.6 L 34.7 L (42.0-52.0) % Plt Count 304 318 (160-400) X10*3/uL BMP 07/21/21 07/22/21 16:45 06:47 Sodium 140 137 Potassium 4.7 4.9 Chloride 105 104 Carbon Dioxide 26 26 BUN 24 H 19 H Creatinine 1.44 H 1.19 Calcium 8.9 9.3 Liver Function 07/21/21 Range/Units 16:45 Total Bilirubin 0.3 (0.0-1.0) mg/dL Direct Bilirubin 0.2 (0.0-0.5) mg/dL AST 43 H (5-37) U/L ALT 32 (0-40) U/L Alkaline Phosphatase 109 (39-117) U/L Albumin 3.3 L (3.5-5.0) g/dL All other labs normal. Imaging Additional studies: Laboratory Results WBC 9.3 X10*3/uL (4.8-10.8) 07/22/21 06:47 RBC 3.78 X10*6/uL (4.60-5.80) L 07/22/21 06:47 Hgb 11.1 g/dl (14.0-18.0) L 07/22/21 06:47 Hct 34.7 % (42.0-52.0) L 07/22/21 06:47 MCV 91.8 fL (80.0-98.0) 07/22/21 06:47 MCH 29.4 pg (27.0-33.0) 07/22/21 06:47 MCHC 32.0 g/dl (31.0-36.0) 07/22/21 06:47 RDW 14.4 % (11.0-16.0) 07/22/21 06:47 Plt Count 318 X10*3/uL (160-400) 07/22/21 06:47 MPV 10.7 fL (9.4-12.4) 07/22/21 06:47 Immature Gran % (Auto) 0.4 % (0.0-0.4) 07/22/21 06:47 Neut % (Auto) 65.4 % (45-73) 07/22/21 06:47 Lymph % (Auto) 12.6 % (20-40) L 07/22/21 06:47 Pike % (Auto) 9.0 % (2-11) 07/22/21 06:47 Eos % (Auto) 12.1 % (0-4) H 07/22/21 06:47 Baso % (Auto) 0.5 % (0-2) 07/22/21 06:47 Lymph # (Auto) 1.2 X10*3/uL (1.2-4.9) 07/22/21 06:47 Pike # (Auto) 0.8 X10*3/uL (0.1-1.2) 07/22/21 06:47 Eos # (Auto) 1.1 X10*3/uL (0.0-0.4) H 07/22/21 06:47 Baso # (Auto) 0.1 X10*3/uL (0.0-0.2) 07/22/21 06:47 Abs Immat Gran (auto) 0.04 X10*3/uL (0.00-0.03) H 07/22/21 06:47 Absolute Neuts (auto) 6.1 x10*3/uL (2.0-8.3) 07/22/21 06:47 Absolute Nucleated RBC 0.000 X10*3/uL (0.0-0.012) 07/22/21 06:47 Nucleated RBC % (auto) 0.0 /100WBC (0.0-0.2) 07/22/21 06:47 ESR 66 MM/HR (0-15) H 07/21/21 16:45 Sodium 137 mmol/L (135-145) 07/22/21 06:47 Potassium 4.9 mmol/L (3.3-5.1) 07/22/21 06:47 Chloride 104 mmol/L (96-108) 07/22/21 06:47 Carbon Dioxide 26 mmol/L (22-29) 07/22/21 06:47 Anion Gap 12 (12-20) 07/22/21 06:47 BUN 19 mg/dL (9-16) H 07/22/21 06:47 Creatinine 1.19 mg/dL (0.5-1.4) 07/22/21 06:47 Estim Creat Clear Calc 51.1 07/22/21 06:47 Estimated GFR 59 07/22/21 06:47 POC Glucose 83 mg/dL (60-115) 07/22/21 07:31 Random Glucose 92 mg/dL (60-115) 07/22/21 06:47 Lactic Acid 2.6 mmol/L (0.5-2.0) H* 07/21/21 16:45 Lactic Acid F/U @ 2Hr 1.5 mmol/L (0.5-2.0) 07/21/21 19:10 Calcium 9.3 mg/dL (8.4-10.2) 07/22/21 06:47 Total Bilirubin 0.3 mg/dL (0.0-1.0) 07/21/21 16:45 Direct Bilirubin 0.2 mg/dL (0.0-0.5) 07/21/21 16:45 AST 43 U/L (5-37) H 07/21/21 16:45 ALT 32 U/L (0-40) 07/21/21 16:45 Alkaline Phosphatase 109 U/L (39-117) 07/21/21 16:45 C-Reactive Protein 3.70 mg/dL (< or = 0.50) H 07/21/21 16:45 Total Protein 6.5 g/dL (6.5-8.0) 07/21/21 16:45 Albumin 3.3 g/dL (3.5-5.0) L 07/21/21 16:45 Random Vancomycin 20.9 mcg/mL (15-20) H 07/21/21 16:45 COVID-19 ([facility]ISHAN) Negative (Negative) 07/22/21 08:53 COVID-19 Clin Com See Note 07/22/21 08:[address] 07/21/21 17:58 IMPRESSION: 1. Bone destruction consistent with osteomyelitis and pathologic fracture through the bone of the head and distal shaft of the 3rd metatarsal. This is worse than prior study MR of 07/01/2021. This is consistent with progressive osteomyelitis. 2. Redemonstration of the fracture of the head of the 4th metatarsal similar prior study of 06/30/2021 with surrounding edema but no abscess. Findings remain concerning for osteomyelitis. 3. There is irregularity of the articular surface head of the 2nd metatarsal but no fracture or bone destruction. Osteomyelitis, however, cannot be entirely excluded. Assessment and Plan (1) Osteomyelitis of foot: Status: Acute His foot CT shows bony destruction on the remaining metatarsal of the 3rd toe suggestive of persistent osteomyelitis. There is also suspicion of osteomyelitis of the 2nd toe at the metatarsal head. I explained to him options at this time. We can amputate the 3rd metatarsal more proximally, but there is also suggestion of osteomyelitis of the 4th toe. If we needed to amputate the 4th toe as well, it may be better to just go ahead with a BKA, as it may be difficult for him to use footwear with only the 2nd and 5th toes intact. At this time, he would like to just continue with IV abx. I will revisit his options with him while he is in the hospital. There is no need for debridement of his uler at this time Procedures Date of Service Date of Service: 07/22/21
[2021-07-22 12:41] LABS: Glucose, Whole Blood 94 mg/dL (60-115)
--- NOTE | 2021-07-22 14:15 | MHC.CM.PN ---
Received telephone call from [facility] [place]. Patient is active with their agency. Will need new prescriptions at discharge. Continue to monitor for d/c needs.
--- NOTE | 2021-07-22 14:26 | W.PM.IDCN ---
History of Present Illness Data of Consult Service Date: 07/22/21 Requesting physician: Ike Fonseca Primary Care Provider: MD FRANSISCA Cutler Reason for consult: right foot erythema He presents to hospital with redness and swelling and complaints of yellow discharge from right foot amputation area. He has no fever or chills. He is week 3/6 of IV Vancomycin and has right PICC line in place. He also is taking po Levaquin. Review of Systems Review of Systems: Yes all other systems are reviewed and are negative [facility] Past Medical History Medical History Abscess of right foot Anxiety and depression Asthma Atrial fibrillation with rapid ventricular response Avascular necrosis of bone of hip Coronary artery disease Diabetic foot ulcer Diabetic nephropathy Diabetic neuropathy Diverticular disease Hypercholesterolemia Hypertension Open wound Osteomyelitis of toe PAD (peripheral artery disease) Preoperative cardiovascular examination Thrombocytopenia Tobacco abuse Tubular adenoma of colon Type 2 diabetes mellitus with hyperglycemia Type 2 diabetes mellitus with peripheral artery disease Vitamin D deficiency Family History Family History Father Diabetes Hypertension CVD (cardiovascular disease) Stroke Mother CVD (cardiovascular disease) Hypertension Cancer Sister No problems noted. Son Stroke Family history: reviewed and not pertinent Surgical History Surgical History Amputated toe of right foot Amputation finger History of cataract surgery History of surgery Social History Social History Household Members: Spouse Household Members Other:: 4 Housing: House Do you presently have visiting nurse or other home services: Yes Alcohol intake: former Patient Tobacco Use Status: Former Tobacco user Tobacco use type: Cigarette Cigarettes Per Day: 7 Years Smoked: 09/2020 stopped e-Cigarette/Vaping Use: Never Used Second Hand Smoke Exposure: No Use of substances other than those prescribed or required for medical reasons: No Advance Directives: Yes Advance Directives on File: Yes Advance Directives Date on File: 07/24/20 service: No Current occupational status: retired Meds Allergies Allergy/AdvReac Type Severity Reaction Status Date / Time No Known Allergies Allergy Mild Verified 06/30/21 16:09 Active Medications: Current Medications Acetaminophen (Acetaminophen 325 Mg Tablet) 650 mg PO Q6H PRN PRN Reason: Pain, Mild (Pain Scale 1-3) Amiodarone HCl (Amiodarone Hcl 200 Mg Tablet) 200 mg PO DAILY [facility] Last Admin: 07/22/21 09:02 Dose: 200 mg Documented by: Amlodipine Besylate (Amlodipine Besylate 10 Mg Tablet) 10 mg PO DAILY [facility]; Protocol Last Admin: 07/22/21 09:01 Dose: 10 mg Documented by: Apixaban (Apixaban 5 Mg Tablet) 5 mg PO BID [facility] Last Admin: 07/22/21 09:02 Dose: 5 mg Documented by: Atorvastatin Calcium (Atorvastatin Calcium 10 Mg Tablet) 10 mg PO BEDTIME [facility] Clopidogrel Bisulfate (Clopidogrel Bisulfate 75 Mg Tablet) 75 mg PO DAILY [facility] Last Admin: 07/22/21 09:02 Dose: 75 mg Documented by: Docusate Sodium (Docusate Sodium 100 Mg Capsule) 100 mg PO DAILY PRN PRN Reason: Constipation Meropenem 1 gm/ Sodium (Chloride) 100 mls @ 200 mls/hr IV Q12H [facility] Last Infusion: 07/22/21 09:35 Dose: Infused Documented by: Lactated Ringer's (Lr) 1,000 mls @ 100 mls/hr IVCONT .Q10H [facility] Last Admin: 07/22/21 10:14 Dose: 100 mls/hr Documented by: Levothyroxine Sodium (Levothyroxine Sodium 25 Mcg Tablet) 25 mcg PO DAILY@0600 [facility] Last Admin: 07/22/21 09:01 Dose: 25 mcg Documented by: Metoprolol Succinate (Metoprolol Succinate Er 100 Mg Tab.Er.24h) 100 mg PO DAILY [facility]; Protocol Last Admin: 07/22/21 09:01 Dose: 100 mg Documented by: Mirtazapine (Mirtazapine 7.5 Mg Tablet) 7.5 mg PO BEDTIME [facility] Ondansetron HCl (Ondansetron Hcl 4 Mg/2 Ml Vial) 4 mg IVPUSH Q8H PRN PRN Reason: Nausea and Vomiting Sodium Chloride (0.9 % Sodium Chloride Flush 3 Ml Syringe) 3 ml IVFLUSH QSHIFT [facility] Last Admin: 07/22/21 09:02 Dose: 3 ml Documented by: Timolol Maleate (Timolol Maleate 0.5 % Oph [place] 5 Ml Drbtl) 1 drop EYE-LEFT DAILY [facility] Last Admin: 07/22/21 10:14 Dose: 1 drop Documented by: Vitamin D (Cholecalciferol (Vitamin D3) 25 Mcg Tablet) 25 mcg PO DAILY [facility] Last Admin: 07/22/21 09:02 Dose: 25 mcg Documented by: Home Medications Medication Instructions Recorded Confirmed Last Taken Type cholecalciferol (vitamin D3) 25 25 mcg PO DAILY 04/14/20 07/21/21 07/21/21 History mcg (1,000 unit) capsule timolol maleate 0.5 % eye drops 1 drp OPHTHALMIC-LEFT DAILY 08/21/20 07/21/21 07/21/21 History metformin 500 mg tablet 500 mg PO BIDWM 07/21/21 07/21/21 07/21/21 History Physical Exam Vital Signs: Vital Signs: Last Vital Signs Temp 97.6 F 07/22/21 14:16 Pulse 49 L 07/22/21 14:16 Resp 16 07/22/21 14:16 BP 168/83 H 07/22/21 14:16 Pulse Ox 100 07/22/21 14:16 BMI result Body Mass Index 24.7 Const: General: cooperative HEENT: Head: Yes normal to inspection Mouth: Normal oral and palatal mucosa present Eyes: General: appearance normal, both eyes and all related structures Resp: Effort & Inspection: normal respiratory effort Cardio: Rate: regular rate Rhythm: regular rhythm GI: Palpation (GI): Soft to palpation and nontender Skin: General skin exam: no rashes or lesions noted Extrem: Other: right foot post amputation 3rd toe and great toe some swelling only mild pinkness no purulence seen Results Labs CBC & Chem 7: 07/22/21 06:47 07/22/21 06:47 Labs: Short CBC 07/21/21 07/22/21 Range/Units 16:45 06:47 WBC 8.7 9.3 (4.8-10.8) X10*3/uL Hgb 10.2 L 11.1 L (14.0-18.0) g/dl Hct 31.6 L 34.7 L (42.0-52.0) % Plt Count 304 318 (160-400) X10*3/uL BMP 07/21/21 07/22/21 16:45 06:47 Sodium 140 137 Potassium 4.7 4.9 Chloride 105 104 Carbon Dioxide 26 26 BUN 24 H 19 H Creatinine 1.44 H 1.19 Calcium 8.9 9.3 Liver Function 07/21/21 Range/Units 16:45 Total Bilirubin 0.3 (0.0-1.0) mg/dL Direct Bilirubin 0.2 (0.0-0.5) mg/dL AST 43 H (5-37) U/L ALT 32 (0-40) U/L Alkaline Phosphatase 109 (39-117) U/L Albumin 3.3 L (3.5-5.0) g/dL Assessment and Plan (1) Osteomyelitis of foot: Status: Acute (2) Osteomyelitis of foot: Status: Acute He has nonhealing postop third toe removal site He reports redness and pain. He is taking Vancomycin and Levaquin and no significant anerobic burden but staph and gram negatives covered per prior cultures. Plan May continue Merepenem although Pseudomonas was sensitive. Will add Daptomycin as renal function has decreased Vascular or Surgery evaluation as may be failing outpatient antibiotic therapy but looks better today. Perhaps he can have renetta debridement as may decline BKA although as said previously doubt this will not heal with antibiotics and will likely need surgical removal of affected bone.
--- NOTE | 2021-07-22 15:41 | PC.NURSE ---
RN TO RN GIVEN TO ADELE, PT TRANSFERED TO ED OVERFLOW UNIT.
--- NOTE | 2021-07-22 16:47 | P.PNIM_ITS ---
Subjective Subjective Date of Service: 07/22/21 Interval History: No acute issues overnight. Remains afebrile Review of Systems Denies chest pain Denies nausea vomiting diarrhea Denies shortness of breath Physical Exam Vital Signs: Vital Signs: Last Vital Signs Temp 97.6 F 07/22/21 14:16 Pulse 49 L 07/22/21 14:16 Resp 16 07/22/21 14:16 BP 168/83 H 07/22/21 14:16 Pulse Ox 100 07/22/21 14:16 BMI result Body Mass Index 24.7 Const: Other: No acute issues overnight Resp: Other: Clear to auscultation bilaterally no rales rhonchi wheezes Cardio: Other: No S4; positive S1-S2; no S3 murmurs rubs or gallops GI: Other: Soft nontender nondistended normoactive bowel sounds Extrem: Other: Mild edema of right foot with dorsal erythema/warmth; 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 Two small ulcers on the plantar aspect dry no active drainage Objective Data Active Medications Acetaminophen (Acetaminophen 325 Mg Tablet) 650 mg PO Q6H PRN PRN Reason: Pain, Mild (Pain Scale 1-3) Amiodarone HCl (Amiodarone Hcl 200 Mg Tablet) 200 mg PO DAILY [facility] Last Admin: 07/22/21 09:02 Dose: 200 mg Documented by: KAYLIE Amlodipine Besylate (Amlodipine Besylate 10 Mg Tablet) 10 mg PO DAILY [facility]; Protocol Last Admin: 07/22/21 09:01 Dose: 10 mg Documented by: KAYLIE Apixaban (Apixaban 5 Mg Tablet) 5 mg PO BID [facility] Last Admin: 07/22/21 09:02 Dose: 5 mg Documented by: KAYLIE Atorvastatin Calcium (Atorvastatin Calcium 10 Mg Tablet) 10 mg PO BEDTIME [facility] Clopidogrel Bisulfate (Clopidogrel Bisulfate 75 Mg Tablet) 75 mg PO DAILY [facility] Last Admin: 07/22/21 09:02 Dose: 75 mg Documented by: KAYLIE Docusate Sodium (Docusate Sodium 100 Mg Capsule) 100 mg PO DAILY PRN PRN Reason: Constipation Meropenem 1 gm/ Sodium (Chloride) 100 mls @ 200 mls/hr IV Q12H [facility] Last Infusion: 07/22/21 09:35 Dose: 0 mls/hr Documented by: KAYLIE Lactated Ringer's (Lr) 1,000 mls @ 100 mls/hr IVCONT .Q10H [facility] Last Admin: 07/22/21 10:14 Dose: 100 mls/hr Documented by: KAYLIE Daptomycin 460 mg/ Sodium (Chloride) 59.2 mls @ 100 mls/hr IV Q24H [facility] Levothyroxine Sodium (Levothyroxine Sodium 25 Mcg Tablet) 25 mcg PO DAILY@0600 [facility] Last Admin: 07/22/21 09:01 Dose: 25 mcg Documented by: KAYLIE Metoprolol Succinate (Metoprolol Succinate Er 100 Mg Tab.Er.24h) 100 mg PO DAILY [facility]; Protocol Last Admin: 07/22/21 09:01 Dose: 100 mg Documented by: KAYLIE Mirtazapine (Mirtazapine 7.5 Mg Tablet) 7.5 mg PO BEDTIME [facility] Ondansetron HCl (Ondansetron Hcl 4 Mg/2 Ml Vial) 4 mg IVPUSH Q8H PRN PRN Reason: Nausea and Vomiting Sodium Chloride (0.9 % Sodium Chloride Flush 3 Ml Syringe) 3 ml IVFLUSH QSHIFT [facility] Last Admin: 07/22/21 09:02 Dose: 3 ml Documented by: KAYLIE Timolol Maleate (Timolol Maleate 0.5 % Oph [place] 5 Ml Drbtl) 1 drop EYE-LEFT DAILY [facility] Last Admin: 07/22/21 10:14 Dose: 1 drop Documented by: KAYLIE Vitamin D (Cholecalciferol (Vitamin D3) 25 Mcg Tablet) 25 mcg PO DAILY [facility] Last Admin: 07/22/21 09:02 Dose: 25 mcg Documented by: KAYLIE Labs CBC & Chem 7: 07/22/21 06:47 07/22/21 06:47 Labs: Laboratory Results - last 24 hr 07/21/21 07/21/21 07/21/21 16:45 16:45 16:45 MCV 93.2 MCH 30.1 MCHC 32.3 RDW 14.5 Plt Count 304 MPV 10.4 Immature Gran % (Auto) 0.3 Neut % (Auto) 71.7 Lymph % (Auto) 11.8 L Aiken % (Auto) 7.1 Eos % (Auto) 8.6 H Baso % (Auto) 0.5 Lymph # (Auto) 1.0 L Aiken # (Auto) 0.6 Eos # (Auto) 0.8 H Baso # (Auto) 0.0 Abs Immat Gran (auto) 0.03 Absolute Neuts (auto) 6.2 Absolute Nucleated RBC 0.000 Nucleated RBC % (auto) 0.0 ESR Anion Gap 14 Estim Creat Clear Calc 42.2 Estimated GFR 47 POC Glucose Random Glucose 93 Lactic Acid 2.6 H* Lactic Acid F/U @ 2Hr Calcium 8.9 Total Bilirubin 0.3 Direct Bilirubin 0.2 AST 43 H ALT 32 Alkaline Phosphatase 109 C-Reactive Protein 3.70 H Total Protein 6.5 Albumin 3.3 L Random Vancomycin COVID-19 (KISHAN) COVID-19 Subarctic Limited 07/21/21 07/21/21 07/21/21 16:45 16:45 19:10 MCV MCH MCHC RDW Plt Count MPV Immature Gran % (Auto) Neut % (Auto) Lymph % (Auto) Aiken % (Auto) Eos % (Auto) Baso % (Auto) Lymph # (Auto) Aiken # (Auto) Eos # (Auto) Baso # (Auto) Abs Immat Gran (auto) Absolute Neuts (auto) Absolute Nucleated RBC Nucleated RBC % (auto) ESR 66 H Anion Gap Estim Creat Clear Calc Estimated GFR POC Glucose Random Glucose Lactic Acid Lactic Acid F/U @ 2Hr 1.5 Calcium Total Bilirubin Direct Bilirubin AST ALT Alkaline Phosphatase C-Reactive Protein Total Protein Albumin Random Vancomycin 20.9 H COVID-19 (KISHAN) COVID-19 Subarctic Limited 07/22/21 07/22/21 07/22/21 06:47 06:47 07:31 MCV 91.8 MCH 29.4 MCHC 32.0 RDW 14.4 Plt Count 318 MPV 10.7 Immature Gran % (Auto) 0.4 Neut % (Auto) 65.4 Lymph % (Auto) 12.6 L Aiken % (Auto) 9.0 Eos % (Auto) 12.1 H Baso % (Auto) 0.5 Lymph # (Auto) 1.2 Aiken # (Auto) 0.8 Eos # (Auto) 1.1 H Baso # (Auto) 0.1 Abs Immat Gran (auto) 0.04 H Absolute Neuts (auto) 6.1 Absolute Nucleated RBC 0.000 Nucleated RBC % (auto) 0.0 ESR Anion Gap 12 Estim Creat Clear Calc 51.1 Estimated GFR 59 POC Glucose 83 Random Glucose 92 Lactic Acid Lactic Acid F/U @ 2Hr Calcium 9.3 Total Bilirubin Direct Bilirubin AST ALT Alkaline Phosphatase C-Reactive Protein Total Protein Albumin Random Vancomycin COVID-19 (KISHAN) COVID-19 Clin Com 07/22/21 07/22/21 08:53 12:37 MCV MCH MCHC RDW Plt Count MPV Immature Gran % (Auto) Neut % (Auto) Lymph % (Auto) Aiken % (Auto) Eos % (Auto) Baso % (Auto) Lymph # (Auto) Aiken # (Auto) Eos # (Auto) Baso # (Auto) Abs Immat Gran (auto) Absolute Neuts (auto) Absolute Nucleated RBC Nucleated RBC % (auto) ESR Anion Gap Estim Creat Clear Calc Estimated GFR POC Glucose 94 Random Glucose Lactic Acid Lactic Acid F/U @ 2Hr Calcium Total Bilirubin Direct Bilirubin AST ALT Alkaline Phosphatase C-Reactive Protein Total Protein Albumin Random Vancomycin COVID-19 (KISHAN) Negative COVID-19 Clin Com See Note Assessment and Plan (1) Osteomyelitis of foot: Status: Acute (2) Hypertension: Status: Acute (3) Atrial fibrillation: Status: Acute (4) DMII (diabetes mellitus, type 2): Status: Acute Plan 76-year-old male history of diabetic neuropathy status post osteomyelitis as well as amputated toes x2 presents with worsening osteomyelitis as documented by MRI 1.Osteomyelitis (right foot) - continue meropenem(2); daptomycin (1)added by ID -surgical/infectious disease input noted -follow CBC 2. DMII -continue sliding scale insulin adjust as indicated 3. Paroxysmal AFib -Acceptable rate control on current therapies -continue Eloquist as ordered 4. CAD/ PVD - continue Plavix/Eloquist -hold if surgical intervention indicated DVT prophylaxis: Eliquis Full Code Patient will likely require 1-2 midnights going forward for IV antibiotics to treat osteomyelitis that has failed outpatient therapies Quality Stroke Does the patient have a stroke diagnosis?: No VTE Prior VTE?: No VTE Risk Level:: Medical - moderate - high VTE Device Contraindication: Treatment Not Indicated VTE Drug Contraindication: N/A - Med Ordered
[2021-07-22] MEDS: DAPTOMYCIN IV (17:49)
[2021-07-22] MEDS: SODIUM CHLORIDE 0.9% IV (17:49)
[2021-07-22 18:26] LABS: Glucose, Whole Blood 87 mg/dL (60-115)
[2021-07-22] MEDS: Atorvastatin Calcium 10 MG TABLET PO (20:23)
[2021-07-22] MEDS: Mirtazapine 7.5 MG TABLET PO (20:23)
[2021-07-22 21:10] LABS: Glucose, Whole Blood 124 mg/dL (60-115)
[2021-07-23 04:00] VITALS: BP 145/63; PULSE 52; RESP 18; TEMP 36.8; O2SAT 99
--- NOTE | 2021-07-23 05:25 | PC.NURSE ---
CALLED TO PATIENTS ROOM APPROXIMATELY 0015 BY GLEASON OPERATOR THAT PATIENT HAD PULLED OUT HIS PICC LINE TO HIS RIGHT UPPER ARM. THERE WAS NO BLEEDING AT THE SITE, NO TRAUMA, AND PT DENIED PAIN. PICC LINE WAS INTACT AT A MEASUREMENT OF 37 CM WRIITEN AT TIME OF INSERTION. AREA CLEANSED AND DSD APPLIED. MONITORED WITH NO NOTED DRAINAGE OR BLEEDING. WHEN PATIENT WAS ASKED WHY HE HAD PULLED THE LINE OUT, HE RESPONDED, IM NOT REALLY SURE WHY . PT SEEMED A LITTLE VAGUE AT THIS TIME, HOWEVER, HE DID CLEAR AND KNEW HE WAS IN THE HOSPITAL AND THAT HE WAS HERE FOR HIS RIGHT FOOT. COWORKER WAS SUCCESSFUL INSERTING A 22 GAUGE ANGIO TO PATIENTS LEFT FOREARM. WILL CONTINUE TO MONITOR AND NURSING ENDS BREAKAGE CLERK AND HOSPITALIST ON DUTY MADE AWARE. LINE TAPED TO PATIENTS ROOM BOARD IN CASE NEED TO VERIFY.
[2021-07-23] MEDS: Levothyroxine Sodium 25 MCG TABLET PO (06:46)
[2021-07-23] MEDS: Lactated Ringers 1,000 ML 100 ML IVCONT ×2 (06:49→17:44)
[2021-07-23 06:57] VITALS: BP 176/79; PULSE 52; RESP 18; TEMP 36.5; O2SAT 98
[2021-07-23 07:11] LABS: Glucose, Whole Blood 85 mg/dL (60-115)
--- NOTE | 2021-07-23 09:17 | P.CDIC_ITS ---
CDI Concurrent Query Documentation Clarification: PHYSICIAN'S DOCUMENTATION REQUEST Date of Query: 07/23/2118 Patient Name: Matheus Romo Admit Date: 07/21/21 Dear Doctor, A review of the medical record indicates additional documentation may be needed. Please review below and update the documentation accordingly. Clinical Indicators: Risk Factors/Clinical Indicators/Treatments H&P: Assessment/plan: Osteomyelitis, cellulitis right foot, swelling, redness of right foot. S/P amputation of toe. ID consult Vancomycin, meropenem. Diabetic neuropathy. Please clarify the relationship between these conditions: Cellulitis due to/with Diabetes Mellitus w osteomyelitis or other linking etiology: * Yes, [ ] is related to / associated with / due to [ ] * No, [ ] is not related to / associated with / due to [ ] * Unable to determine Use of terms such as suspected, likely, concern for, or probable (associated with a specific diagnosis that is being evaluated, monitored, or treated as if it exists) are acceptable and can be coded in the inpatient setting, when documented at the time of discharge. Thank you, Joselyn Worrell [facility], CDIS Extension: [id number] Please use your independent medical judgment in providing your response. THIS QUERY IS PART OF THE PERMANENT MEDICAL RECORD Provider Response: Other Other Diagnosis: Cellulitis related to longstanding diabetes
[2021-07-23] MEDS: Apixaban 5 MG TABLET PO ×2 (09:35→21:07)
[2021-07-23] MEDS: amLODIPine Besylate 10 MG TABLET PO (09:35)
[2021-07-23] MEDS: Amiodarone HCL 200 MG TABLET PO (09:36)
[2021-07-23] MEDS: Clopidogrel Bisulfate 75 MG TABLET PO (09:36)
[2021-07-23] MEDS: Cholecalciferol (Vitamin D3) 25 MCG TABLET PO (09:36)
[2021-07-23 11:05] VITALS: BP 177/77; PULSE 50; RESP 18; TEMP 36.7; O2SAT 97
[2021-07-23 11:18] LABS: Glucose, Whole Blood 101 mg/dL (60-115)
--- NOTE | 2021-07-23 15:00 | HO.PM.IMPN ---
Subjective Subjective Date of Service: 07/23/21 Interval History: No acute issues overnight. Remains afebrile Review of Systems Denies chest pain Denies nausea vomiting diarrhea Denies shortness of breath Physical Exam Vital Signs: Vital Signs: Last Vital Signs Temp 98.1 F 07/23/21 11:05 Pulse 50 07/23/21 11:05 Resp 18 07/23/21 11:05 BP 177/77 H 07/23/21 11:05 Pulse Ox 97 07/23/21 11:05 BMI result Body Mass Index 24.7 Const: Other: No acute issues overnight Resp: Other: Clear to auscultation bilaterally no rales rhonchi wheezes Cardio: Other: No S4; positive S1-S2; no S3 murmurs rubs or gallops GI: Other: Soft nontender nondistended normoactive bowel sounds Extrem: Other: Mild edema of right foot with dorsal erythema/warmth; 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 Two small ulcers on the plantar aspect dry no active drainage Objective Data Active Medications Acetaminophen (Acetaminophen 325 Mg Tablet) 650 mg PO Q6H PRN PRN Reason: Pain, Mild (Pain Scale 1-3) Amiodarone HCl (Amiodarone Hcl 200 Mg Tablet) 200 mg PO DAILY COUNTS INCLUDE 234 BEDS AT THE [facility] Last Admin: 07/23/21 09:36 Dose: 200 mg Documented by: PABLITO Amlodipine Besylate (Amlodipine Besylate 10 Mg Tablet) 10 mg PO DAILY COUNTS [facility]CLUDE 234 BEDS AT THE [facility]; Protocol Last Admin: 07/23/21 09:35 Dose: 10 mg Documented by: PABLITO Apixaban (Apixaban 5 Mg Tablet) 5 mg PO BID COUNTS INCLUDE 234 BEDS AT THE [facility] Last Admin: 07/23/21 09:35 Dose: 5 mg Documented by: PABLITO Atorvastatin Calcium (Atorvastatin Calcium 10 Mg Tablet) 10 mg PO BEDTIME COUNTS INCLUDE 234 BEDS AT THE [facility] Last Admin: 07/22/21 20:23 Dose: 10 mg Documented by: VALERIE Clopidogrel Bisulfate (Clopidogrel Bisulfate 75 Mg Tablet) 75 mg PO DAILY COUNTS INCLUDE 234 BEDS AT THE [facility] Last Admin: 07/23/21 09:36 Dose: 75 mg Documented by: PABLITO Docusate Sodium (Docusate Sodium 100 Mg Capsule) 100 mg PO DAILY PRN PRN Reason: Constipation Meropenem 1 gm/ Sodium (Chloride) 100 mls @ 200 mls/hr IV Q12H COUNTS INCLUDE 234 BEDS AT THE [facility] Last Infusion: 07/23/21 10:12 Dose: 0 mls/hr Documented by: PABLITO Lactated Ringer's (Lr) 1,000 mls @ 100 mls/hr IVCONT .Q10H COUNTS INCLUDE 234 BEDS AT THE [facility] Last Infusion: 07/23/21 12:38 Dose: 100 mls/hr Documented by: PABLITO Daptomycin 460 mg/ Sodium (Chloride) 59.2 mls @ 100 mls/hr IV Q24H COUNTS INCLUDE 234 BEDS AT THE [facility] Last Infusion: 07/22/21 18:31 Dose: 0 mls/hr Documented by: KAROLINE Insulin Human Lispro (Insulin Lispro 100 Unit/Ml 3 Ml Vial) 0 unit SUBCUT QIDACHS COUNTS INCLUDE 234 BEDS AT THE [facility]; Protocol Last Admin: 07/23/21 12:38 Dose: Not Given Documented by: PABLITO Non-Admin Reason: No Insulin Coverage Levothyroxine Sodium (Levothyroxine Sodium 25 Mcg Tablet) 25 mcg PO DAILY@0600 COUNTS INCLUDE 234 BEDS AT THE [facility] Last Admin: 07/23/21 06:46 Dose: 25 mcg Documented by: RANCHO Metoprolol Succinate (Metoprolol Succinate Er 100 Mg Tab.Er.24h) 100 mg PO DAILY COUNTS INCLUDE 234 BEDS AT THE [facility]; Protocol Last Admin: 07/23/21 09:36 Dose: Not Given Documented by: PABLITO Non-Admin Reason: Decreased Heart Rate Mirtazapine (Mirtazapine 7.5 Mg Tablet) 7.5 mg PO BEDTIME COUNTS INCLUDE 234 BEDS AT THE [facility] Last Admin: 07/22/21 20:23 Dose: 7.5 mg Documented by: VALERIE Ondansetron HCl (Ondansetron Hcl 4 Mg/2 Ml Vial) 4 mg IVPUSH Q8H PRN PRN Reason: Nausea and Vomiting Sodium Chloride (0.9 % Sodium Chloride Flush 3 Ml Syringe) 3 ml IVFLUSH QSHIFT COUNTS INCLUDE 234 BEDS AT THE [facility] Last Admin: 07/23/21 09:35 Dose: Not Given Documented by: PABLITO Non-Admin Reason: IV Running Timolol Maleate (Timolol Maleate 0.5 % Oph [place] 5 Ml Drbtl) 1 drop EYE-LEFT DAILY COUNTS INCLUDE 234 BEDS AT THE [facility] Last Admin: 07/23/21 09:37 Dose: Not Given Documented by: PABLITO Non-Admin Reason: no available Vitamin D (Cholecalciferol (Vitamin D3) 25 Mcg Tablet) 25 mcg PO DAILY COUNTS INCLUDE 234 BEDS AT THE [facility] Last Admin: 07/23/21 09:36 Dose: 25 mcg Documented by: PABLITO Labs CBC & Chem 7: 07/22/21 06:47 07/22/21 06:47 Labs: Laboratory Results - last 24 hr 07/22/21 07/22/21 07/23/21 18:22 21:06 07:00 POC Glucose 87 124 H 85 07/23/21 11:08 POC Glucose 101 Microbiology Microbiology Results: Microbiology 07/21/21 16:45 Blood Culture - Preliminary Blood - Venous No growth after 24 hours. 07/21/21 16:45 Blood Culture - Preliminary Blood - Venous No growth after 24 hours. Assessment and Plan (1) Osteomyelitis of foot: Status: Acute (2) DMII (diabetes mellitus, type 2): Status: Acute (3) Atrial fibrillation: Status: Acute (4) Coronary artery disease: Status: Acute Plan 76-year-old male history of diabetic neuropathy status post osteomyelitis as well as amputated toes x2 presents with worsening osteomyelitis as documented by MRI 1.Osteomyelitis (right foot) - continue meropenem(3); daptomycin (2)D -clinical response to therapy will dictate care -follow CBC 2. DMII -continue sliding scale insulin adjust as indicated 3. Paroxysmal AFib -Acceptable rate control on current therapies -continue Eloquist as ordered 4. CAD/ PVD - continue Plavix/Eloquist -hold if surgical intervention indicated DVT prophylaxis: Eliquis Full Code Patient will likely require 1-2 midnights going forward for IV antibiotics to treat osteomyelitis that has failed outpatient therapies Quality Stroke Does the patient have a stroke diagnosis?: No VTE Prior VTE?: No VTE Risk Level:: Medical - moderate - high VTE Device Contraindication: Treatment Not Indicated VTE Drug Contraindication: N/A - Med Ordered
--- NOTE | 2021-07-23 15:21 | P.PNGS_ITS ---
Subjective Subjective Date of Service: 07/23/21 Interval history: Feels better Denies pain on the right foot Physical Exam Vital Signs: Vital Signs: Last Vital Signs Temp 98.1 F 07/23/21 11:05 Pulse 50 07/23/21 11:05 Resp 18 07/23/21 11:05 BP 177/77 H 07/23/21 11:05 Pulse Ox 97 07/23/21 11:05 BMI result Body Mass Index 24.7 Const: General: comfortable and no acute distress Resp: Effort & Inspection: normal respiratory effort Cardio: Rhythm: abnormal rhythm GI: Palpation (GI): Soft to palpation and nontender Extrem: Other: Right foot - no obvious cellulitis, no drainage, open wound, no significant tenderness at this time Objective Data Active Medications Acetaminophen (Acetaminophen 325 Mg Tablet) 650 mg PO Q6H PRN PRN Reason: Pain, Mild (Pain Scale 1-3) Amiodarone HCl (Amiodarone Hcl 200 Mg Tablet) 200 mg PO DAILY [facility] Last Admin: 07/23/21 09:36 Dose: 200 mg Documented by: PABLITO Amlodipine Besylate (Amlodipine Besylate 10 Mg Tablet) 10 mg PO DAILY [facility]; Protocol Last Admin: 07/23/21 09:35 Dose: 10 mg Documented by: PABLITO Apixaban (Apixaban 5 Mg Tablet) 5 mg PO BID [facility] Last Admin: 07/23/21 09:35 Dose: 5 mg Documented by: PABLITO Atorvastatin Calcium (Atorvastatin Calcium 10 Mg Tablet) 10 mg PO BEDTIME [facility] Last Admin: 07/22/21 20:23 Dose: 10 mg Documented by: VALERIE Clopidogrel Bisulfate (Clopidogrel Bisulfate 75 Mg Tablet) 75 mg PO DAILY [facility] Last Admin: 07/23/21 09:36 Dose: 75 mg Documented by: PABLITO Docusate Sodium (Docusate Sodium 100 Mg Capsule) 100 mg PO DAILY PRN PRN Reason: Constipation Meropenem 1 gm/ Sodium (Chloride) 100 mls @ 200 mls/hr IV Q12H [facility] Last Infusion: 07/23/21 10:12 Dose: 0 mls/hr Documented by: PABLITO Lactated Ringer's (Lr) 1,000 mls @ 100 mls/hr IVCONT .Q10H [facility] Last Infusion: 07/23/21 12:38 Dose: 100 mls/hr Documented by: PABLITO Daptomycin 460 mg/ Sodium (Chloride) 59.2 mls @ 100 mls/hr IV Q24H [facility] Last Infusion: 07/22/21 18:31 Dose: 0 mls/hr Documented by: KAROLINE Insulin Human Lispro (Insulin Lispro 100 Unit/Ml 3 Ml Vial) 0 unit SUBCUT QIDACHS [facility]; Protocol Last Admin: 07/23/21 12:38 Dose: Not Given Documented by: PABLITO Non-Admin Reason: No Insulin Coverage Levothyroxine Sodium (Levothyroxine Sodium 25 Mcg Tablet) 25 mcg PO DAILY@0600 [facility] Last Admin: 07/23/21 06:46 Dose: 25 mcg Documented by: RANCHO Metoprolol Succinate (Metoprolol Succinate Er 100 Mg Tab.Er.24h) 100 mg PO DAILY [facility]; Protocol Last Admin: 07/23/21 09:36 Dose: Not Given Documented by: PABLITO Non-Admin Reason: Decreased Heart Rate Mirtazapine (Mirtazapine 7.5 Mg Tablet) 7.5 mg PO BEDTIME [facility] Last Admin: 07/22/21 20:23 Dose: 7.5 mg Documented by: VALERIE Ondansetron HCl (Ondansetron Hcl 4 Mg/2 Ml Vial) 4 mg IVPUSH Q8H PRN PRN Reason: Nausea and Vomiting Sodium Chloride (0.9 % Sodium Chloride Flush 3 Ml Syringe) 3 ml IVFLUSH QSHIFT [facility] Last Admin: 07/23/21 09:35 Dose: Not Given Documented by: PABLITO Non-Admin Reason: IV Running Timolol Maleate (Timolol Maleate 0.5 % Oph [place] 5 Ml Drbtl) 1 drop EYE-LEFT DAILY [facility] Last Admin: 07/23/21 09:37 Dose: Not Given Documented by: PABLITO Non-Admin Reason: no available Vitamin D (Cholecalciferol (Vitamin D3) 25 Mcg Tablet) 25 mcg PO DAILY [facility] Last Admin: 07/23/21 09:36 Dose: 25 mcg Documented by: PABLITO Labs CBC & Chem 7: 07/22/21 06:47 07/22/21 06:47 Labs: Laboratory Results - last 24 hr 07/22/21 07/22/21 07/23/21 18:22 21:06 07:00 POC Glucose 87 124 H 85 07/23/21 11:08 POC Glucose 101 Microbiology Microbiology Results: Microbiology 07/21/21 16:45 Blood Culture - Preliminary Blood - Venous No growth after 24 hours. 07/21/21 16:45 Blood Culture - Preliminary Blood - Venous No growth after 24 hours. Procedures Date of Service Date of Service: 07/23/21 Progress Note: A&P Assessment and plan (1) Osteomyelitis of foot: Status: Acute Assessment and Plan: He does not want any further amputation of any sort at this time Says he feels that the foot his much improved Continue IV antibiotic Fall Risk Details Current Medications: Current Medications Acetaminophen (Acetaminophen 325 Mg Tablet) 650 mg PO Q6H PRN PRN Reason: Pain, Mild (Pain Scale 1-3) Amiodarone HCl (Amiodarone Hcl 200 Mg Tablet) 200 mg PO DAILY [facility] Last Admin: 07/23/21 09:36 Dose: 200 mg Documented by: Amlodipine Besylate (Amlodipine Besylate 10 Mg Tablet) 10 mg PO DAILY [facility]; Protocol Last Admin: 07/23/21 09:35 Dose: 10 mg Documented by: Apixaban (Apixaban 5 Mg Tablet) 5 mg PO BID [facility] Last Admin: 07/23/21 09:35 Dose: 5 mg Documented by: Atorvastatin Calcium (Atorvastatin Calcium 10 Mg Tablet) 10 mg PO BEDTIME [facility] Last Admin: 07/22/21 20:23 Dose: 10 mg Documented by: Clopidogrel Bisulfate (Clopidogrel Bisulfate 75 Mg Tablet) 75 mg PO DAILY [facility] Last Admin: 07/23/21 09:36 Dose: 75 mg Documented by: Docusate Sodium (Docusate Sodium 100 Mg Capsule) 100 mg PO DAILY PRN PRN Reason: Constipation Meropenem 1 gm/ Sodium (Chloride) 100 mls @ 200 mls/hr IV Q12H [facility] Last Infusion: 07/23/21 10:12 Dose: Infused Documented by: Lactated Ringer's (Lr) 1,000 mls @ 100 mls/hr IVCONT .Q10H [facility] Last Infusion: 07/23/21 12:38 Dose: 100 mls/hr Documented by: Daptomycin 460 mg/ Sodium (Chloride) 59.2 mls @ 100 mls/hr IV Q24H [facility] Last Infusion: 07/22/21 18:31 Dose: Infused Documented by: Insulin Human Lispro (Insulin Lispro 100 Unit/Ml 3 Ml Vial) 0 unit SUBCUT QIDACHS [facility]; Protocol Last Admin: 07/23/21 12:38 Dose: Not Given Documented by: Levothyroxine Sodium (Levothyroxine Sodium 25 Mcg Tablet) 25 mcg PO DAILY@0600 [facility] Last Admin: 07/23/21 06:46 Dose: 25 mcg Documented by: Metoprolol Succinate (Metoprolol Succinate Er 100 Mg Tab.Er.24h) 100 mg PO DAILY [facility]; Protocol Last Admin: 07/23/21 09:36 Dose: Not Given Documented by: Mirtazapine (Mirtazapine 7.5 Mg Tablet) 7.5 mg PO BEDTIME [facility] Last Admin: 07/22/21 20:23 Dose: 7.5 mg Documented by: Ondansetron HCl (Ondansetron Hcl 4 Mg/2 Ml Vial) 4 mg IVPUSH Q8H PRN PRN Reason: Nausea and Vomiting Sodium Chloride (0.9 % Sodium Chloride Flush 3 Ml Syringe) 3 ml IVFLUSH QSHIFT [facility] Last Admin: 07/23/21 09:35 Dose: Not Given Documented by: Timolol Maleate (Timolol Maleate 0.5 % Oph [place] 5 Ml Drbtl) 1 drop EYE-LEFT DAILY [facility] Last Admin: 07/23/21 09:37 Dose: Not Given Documented by: Vitamin D (Cholecalciferol (Vitamin D3) 25 Mcg Tablet) 25 mcg PO DAILY [facility] Last Admin: 07/23/21 09:36 Dose: 25 mcg Documented by: Time Spent With Patient Time: Total time spent is greater than 50% in coordination of care (as documented) at patient's floor/unit and/or counseling patient: Quality Stroke Does the patient have a stroke diagnosis?: No VTE Prior VTE?: No VTE Risk Level:: Medical - moderate - high VTE Device Contraindication: Treatment Not Indicated VTE Drug Contraindication: N/A - Med Ordered
[2021-07-23 15:44] VITALS: BP 130/53; PULSE 48; RESP 18; TEMP 36.4; O2SAT 96
--- NOTE | 2021-07-23 15:53 | MHC.CM.PN ---
NURSE ACCOUNTS MANAGER NOTE ELECTRONIC MEEICAL RECORD REVIEWED ALONG WITH CASE DISCUSSED WITH HOSPITALIST , [PATIENT READMITTED AFTER FAILED HOME IV ABX FOR OSTEOMYELITIS OF THE RIGHT FOOT, VASCULAR AND GENERAL SURGERON FOLLOWING WELL ID PHYSICIAN, . CURRENT PLAN -CONTINUE IV MEROPENEUM DAPTOMYCIN AND PATIENRS CLINICAL RESPONSE TO THERAPY, PER HOSPITALIST 2. [facility] V[facility] FOR NR THIS OUT COME WILL DETERMINE CARE DISCHARGE PLAN TRETURN BACK HOME WITH HIS . 1. [facility] FOR HOME IV ABX , (PATIENT PULLED OUT HIS PIC LINE LAST NIGHT - HE WILL NEED NEW PIC LINE PLACEMENT AND NEW SCRIPT FOR IV ABX AND FLUSH LINE ORDERS 2 [facility] FOR IV ABX REINFORCEMENT TEACHING AND PIC LINE FLUSHES AND WOUND CARE AND HOME PT 3 TRANSPORTATION FAMILY VS [facility]REJO PCP DR RENNY Persaud
[2021-07-23 16:01] LABS: Glucose, Whole Blood 116 mg/dL (60-115)
[2021-07-23] MEDS: SODIUM CHLORIDE 0.9% IV (16:53)
[2021-07-23] MEDS: DAPTOMYCIN IV (16:53)
[2021-07-23 19:28] VITALS: BP 154/69; PULSE 50; RESP 17; TEMP 36.8; O2SAT 96
[2021-07-23 19:40] LABS: Glucose, Whole Blood 112 mg/dL (60-115)
[2021-07-23] MEDS: Mirtazapine 7.5 MG TABLET PO (21:06)
[2021-07-23] MEDS: Atorvastatin Calcium 10 MG TABLET PO (21:06)
[2021-07-23] MEDS: 0.9 % Sodium Chloride Flush 3 ML SYRINGE IVFLUSH (21:15)
[2021-07-23 23:48] VITALS: BP 134/61; PULSE 50; RESP 17; TEMP 37.2; O2SAT 98
[2021-07-24 03:30] VITALS: BP 118/65; PULSE 50; RESP 17; TEMP 37.3; O2SAT 96
[2021-07-24] MEDS: Lactated Ringers 1,000 ML 100 ML IVCONT ×2 (03:45→17:26)
[2021-07-24] MEDS: Levothyroxine Sodium 25 MCG TABLET PO (05:11)
[2021-07-24 07:45] LABS: Glucose, Whole Blood 72 mg/dL (60-115)
[2021-07-24 08:00] VITALS: BP 139/62; PULSE 48; RESP 18; TEMP 36.7; O2SAT 96
[2021-07-24] MEDS: Amiodarone HCL 200 MG TABLET PO (09:05)
[2021-07-24] MEDS: Apixaban 5 MG TABLET PO ×2 (09:05→21:40)
[2021-07-24] MEDS: Cholecalciferol (Vitamin D3) 25 MCG TABLET PO (09:05)
[2021-07-24] MEDS: 0.9 % Sodium Chloride Flush 3 ML SYRINGE IVFLUSH (09:05)
[2021-07-24] MEDS: Clopidogrel Bisulfate 75 MG TABLET PO (09:05)
[2021-07-24] MEDS: amLODIPine Besylate 10 MG TABLET PO (09:05)
[2021-07-24 11:36] VITALS: BP 158/61; PULSE 50; RESP 18; TEMP 36.7; O2SAT 100
[2021-07-24 11:36] LABS: Glucose, Whole Blood 102 mg/dL (60-115)
--- NOTE | 2021-07-24 13:04 | HO.PM.IMPN ---
Subjective Subjective Date of Service: 07/24/21 Interval History: No acute issues overnight. Denies pain Review of Systems Denies chest pain Denies nausea vomiting diarrhea Denies shortness of breath Physical Exam Vital Signs: Vital Signs: Last Vital Signs Temp 98.0 F 07/24/21 11:36 Pulse 50 07/24/21 11:36 Resp 18 07/24/21 11:36 BP 158/61 H 07/24/21 11:36 Pulse Ox 100 07/24/21 11:36 BMI result Body Mass Index 24.7 Const: Other: No acute issues overnight Resp: Other: Clear to auscultation bilaterally no rales rhonchi wheezes Cardio: Other: No S4; positive S1-S2; no S3 murmurs rubs or gallops GI: Other: Soft nontender nondistended normoactive bowel sounds Extrem: Other: Mild edema of right foot with dorsal erythema/warmth; 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 Two small ulcers on the plantar aspect dry no active drainage(essentially unchanged since admission) Objective Data Active Medications Acetaminophen (Acetaminophen 325 Mg Tablet) 650 mg PO Q6H PRN PRN Reason: Pain, Mild (Pain Scale 1-3) Amiodarone HCl (Amiodarone Hcl 200 Mg Tablet) 200 mg PO DAILY [facility] Last Admin: 07/24/21 09:05 Dose: 200 mg Documented by: WILLIAM Amlodipine Besylate (Amlodipine Besylate 10 Mg Tablet) 10 mg PO DAILY [facility]; Protocol Last Admin: 07/24/21 09:05 Dose: 10 mg Documented by: WILLIAM Apixaban (Apixaban 5 Mg Tablet) 5 mg PO BID [facility] Last Admin: 07/24/21 09:05 Dose: 5 mg Documented by: WILLIAM Atorvastatin Calcium (Atorvastatin Calcium 10 Mg Tablet) 10 mg PO BEDTIME [facility] Last Admin: 07/23/21 21:06 Dose: 10 mg Documented by: QING Clopidogrel Bisulfate (Clopidogrel Bisulfate 75 Mg Tablet) 75 mg PO DAILY [facility] Last Admin: 07/24/21 09:05 Dose: 75 mg Documented by: WILLIAM Docusate Sodium (Docusate Sodium 100 Mg Capsule) 100 mg PO DAILY PRN PRN Reason: Constipation Meropenem 1 gm/ Sodium (Chloride) 100 mls @ 200 mls/hr IV Q12H [facility] Last Infusion: 07/24/21 10:06 Dose: 0 mls/hr Documented by: WILLIAM Lactated Ringer's (Lr) 1,000 mls @ 100 mls/hr IVCONT .Q10H [facility] Last Admin: 07/24/21 10:05 Dose: Not Given Documented by: WILLIAM Non-Admin Reason: IV Running Daptomycin 460 mg/ Sodium (Chloride) 59.2 mls @ 100 mls/hr IV Q24H [facility] Last Infusion: 07/23/21 17:31 Dose: 0 mls/hr Documented by: PABLITO Insulin Human Lispro (Insulin Lispro 100 Unit/Ml 3 Ml Vial) 0 unit SUBCUT QIDACHS [facility]; Protocol Last Admin: 07/24/21 12:00 Dose: Not Given Documented by: WILLIAM Non-Admin Reason: No Insulin Coverage Levothyroxine Sodium (Levothyroxine Sodium 25 Mcg Tablet) 25 mcg PO DAILY@0600 [facility] Last Admin: 07/24/21 05:11 Dose: 25 mcg Documented by: QING Metoprolol Succinate (Metoprolol Succinate Er 100 Mg Tab.Er.24h) 100 mg PO DAILY [facility]; Protocol Last Admin: 07/24/21 09:09 Dose: Not Given Documented by: WILILAM Non-Admin Reason: Decreased Heart Rate Mirtazapine (Mirtazapine 7.5 Mg Tablet) 7.5 mg PO BEDTIME [facility] Last Admin: 07/23/21 21:06 Dose: 7.5 mg Documented by: QING Ondansetron HCl (Ondansetron Hcl 4 Mg/2 Ml Vial) 4 mg IVPUSH Q8H PRN PRN Reason: Nausea and Vomiting Sodium Chloride (0.9 % Sodium Chloride Flush 3 Ml Syringe) 3 ml IVFLUSH QSHIFT [facility] Last Admin: 07/24/21 09:05 Dose: 3 ml Documented by: WILLIAM Timolol Maleate (Timolol Maleate 0.5 % Oph [place] 5 Ml Drbtl) 1 drop EYE-LEFT DAILY [facility] Last Admin: 07/24/21 09:06 Dose: Not Given Documented by: WILLIAM Non-Admin Reason: Med Not Available Vitamin D (Cholecalciferol (Vitamin D3) 25 Mcg Tablet) 25 mcg PO DAILY [facility] Last Admin: 07/24/21 09:05 Dose: 25 mcg Documented by: WILLIAM Labs CBC & Chem 7: 07/22/21 06:47 07/22/21 06:47 Labs: Laboratory Results - last 24 hr 07/23/21 07/23/21 07/24/21 15:47 19:32 07:27 POC Glucose 116 H 112 72 07/24/21 11:21 POC Glucose 102 Microbiology Microbiology Results: Microbiology 07/21/21 16:45 Blood Culture - Preliminary Blood - Venous No growth after 48 hours. 07/21/21 16:45 Blood Culture - Preliminary Blood - Venous No growth after 48 hours. Assessment and Plan (1) Osteomyelitis of foot: Status: Acute (2) DMII (diabetes mellitus, type 2): Status: Acute (3) Hypertension: Status: Acute (4) Atrial fibrillation: Status: Acute Plan 76-year-old male history of diabetic neuropathy status post osteomyelitis as well as amputated toes x2 presents with worsening osteomyelitis as documented by MRI 1.Osteomyelitis (right foot) - continue meropenem(4); daptomycin (3) -poor response to above; has seen Dr. Oscar. Will re-consult -follow CBC 2. DMII -continue sliding scale insulin adjust as indicated 3. Paroxysmal AFib -Acceptable rate control on current therapies -continue Eloquist as ordered 4. CAD/ PVD -continue Plavix/Eloquist -hold if surgical intervention indicated DVT prophylaxis: Eliquis Full Code Patient will likely require 1-2 midnights going forward for IV antibiotics to treat osteomyelitis that is failing current IV antibiotic regimen Quality Stroke Does the patient have a stroke diagnosis?: No VTE Prior VTE?: No VTE Risk Level:: Medical - moderate - high VTE Device Contraindication: Treatment Not Indicated VTE Drug Contraindication: N/A - Med Ordered
--- NOTE | 2021-07-24 13:37 | P.CONGS_ITS ---
History of Present Illness Consult details Consult date: 07/24/21 Narrative: 76-year-old gentleman well known to me with prior diabetic foot ulcerations. He subsequently underwent toe amputation. He has been doing relatively well. He had been admitted few weeks back in subsequently drained. He had been treated with IV antibiotics. He was subsequently discharged. He appeared to be doing relatively well and his foot began swelling about 2-3 days prior. He now presents to us for vascular follow-up. Of note at the current time there is no active open ulceration. Review of Systems Review of Systems: Yes all other systems are reviewed and are negative Constitutional: Constitutional: Reports no additional constitutional complaints ENT: Reports Normal hearing present Cardiovascular: Cardiovascular: Denies chest pain, Denies chest pain at rest, Denies chest pain with activity and Denies pedal edema Respiratory: Respiratory: Denies cough Gastrointestinal: Gastrointestinal: Denies abdominal pain Musculoskeletal: Musculoskeletal: Denies abnormal gait, Denies muscle cramps and Denies radiating pain into limb Integumentary/Breasts: Skin/Breast: Denies skin ulcer and Denies wounds Neurologic: Reports Normal hearing present and Denies abnormal gait Psychiatric: Psychiatric: Reports no additional psychiatric complaints [facility] Past Medical History Medical History Abscess of right foot Anxiety and depression Asthma Atrial fibrillation with rapid ventricular response Avascular necrosis of bone of hip Coronary artery disease Diabetic foot ulcer Diabetic nephropathy Diabetic neuropathy Diverticular disease Hypercholesterolemia Hypertension Open wound Osteomyelitis of toe PAD (peripheral artery disease) Preoperative cardiovascular examination Thrombocytopenia Tobacco abuse Tubular adenoma of colon Type 2 diabetes mellitus with hyperglycemia Type 2 diabetes mellitus with peripheral artery disease Vitamin D deficiency Family History Family History Father Diabetes Hypertension CVD (cardiovascular disease) Stroke Mother CVD (cardiovascular disease) Hypertension Cancer Sister No problems noted. Son Stroke Family history: reviewed and not pertinent Surgical History Surgical History Amputated toe of right foot Amputation finger History of cataract surgery History of surgery Social History Social History Household Members: Spouse Household Members Other:: 4 Housing: House Do you presently have visiting nurse or other home services: Yes Alcohol intake: former Patient Tobacco Use Status: Former Tobacco user Quit Date: 4 months ago Tobacco use type: Cigarette Cigarettes Per Day: 7 Years Smoked: 09/2020 stopped e-Cigarette/Vaping Use: Never Used Second Hand Smoke Exposure: No Advance Directives Date on File: 07/24/20 service: No Current occupational status: retired Meds Allergies Allergy/AdvReac Type Severity Reaction Status Date / Time No Known Allergies Allergy Mild Verified 06/30/21 16:09 Active Medications: Current Medications Acetaminophen (Acetaminophen 325 Mg Tablet) 650 mg PO Q6H PRN PRN Reason: Pain, Mild (Pain Scale 1-3) Amiodarone HCl (Amiodarone Hcl 200 Mg Tablet) 200 mg PO DAILY [facility] Last Admin: 07/24/21 09:05 Dose: 200 mg Documented by: Amlodipine Besylate (Amlodipine Besylate 10 Mg Tablet) 10 mg PO DAILY [facility]; Protocol Last Admin: 07/24/21 09:05 Dose: 10 mg Documented by: Apixaban (Apixaban 5 Mg Tablet) 5 mg PO BID [facility] Last Admin: 07/24/21 09:05 Dose: 5 mg Documented by: Atorvastatin Calcium (Atorvastatin Calcium 10 Mg Tablet) 10 mg PO BEDTIME [facility] Last Admin: 07/23/21 21:06 Dose: 10 mg Documented by: Clopidogrel Bisulfate (Clopidogrel Bisulfate 75 Mg Tablet) 75 mg PO DAILY [facility] Last Admin: 07/24/21 09:05 Dose: 75 mg Documented by: Docusate Sodium (Docusate Sodium 100 Mg Capsule) 100 mg PO DAILY PRN PRN Reason: Constipation Meropenem 1 gm/ Sodium (Chloride) 100 mls @ 200 mls/hr IV Q12H [facility] Last Infusion: 07/24/21 10:06 Dose: Infused Documented by: Lactated Ringer's (Lr) 1,000 mls @ 100 mls/hr IVCONT .Q10H [facility] Last Admin: 07/24/21 10:05 Dose: Not Given Documented by: Daptomycin 460 mg/ Sodium (Chloride) 59.2 mls @ 100 mls/hr IV Q24H [facility] Last Infusion: 07/23/21 17:31 Dose: Infused Documented by: Insulin Human Lispro (Insulin Lispro 100 Unit/Ml 3 Ml Vial) 0 unit SUBCUT QIDACHS [facility]; Protocol Last Admin: 07/24/21 12:00 Dose: Not Given Documented by: Levothyroxine Sodium (Levothyroxine Sodium 25 Mcg Tablet) 25 mcg PO DAILY@0600 [facility] Last Admin: 07/24/21 05:11 Dose: 25 mcg Documented by: Metoprolol Succinate (Metoprolol Succinate Er 100 Mg Tab.Er.24h) 100 mg PO DAILY [facility]; Protocol Last Admin: 07/24/21 09:09 Dose: Not Given Documented by: Mirtazapine (Mirtazapine 7.5 Mg Tablet) 7.5 mg PO BEDTIME [facility] Last Admin: 07/23/21 21:06 Dose: 7.5 mg Documented by: Ondansetron HCl (Ondansetron Hcl 4 Mg/2 Ml Vial) 4 mg IVPUSH Q8H PRN PRN Reason: Nausea and Vomiting Sodium Chloride (0.9 % Sodium Chloride Flush 3 Ml Syringe) 3 ml IVFLUSH QSHIFT [facility] Last Admin: 07/24/21 09:05 Dose: 3 ml Documented by: Timolol Maleate (Timolol Maleate 0.5 % Oph [place] 5 Ml Drbtl) 1 drop EYE-LEFT DAILY [facility] Last Admin: 07/24/21 09:06 Dose: Not Given Documented by: Vitamin D (Cholecalciferol (Vitamin D3) 25 Mcg Tablet) 25 mcg PO DAILY [facility] Last Admin: 07/24/21 09:05 Dose: 25 mcg Documented by: Home Medications Medication Instructions Recorded Confirmed Last Taken Type cholecalciferol (vitamin D3) 25 25 mcg PO DAILY 04/14/20 07/21/21 07/21/21 History mcg (1,000 unit) capsule timolol maleate 0.5 % eye drops 1 drp OPHTHALMIC-LEFT DAILY 08/21/20 07/21/21 07/21/21 History metformin 500 mg tablet 500 mg PO BIDWM 07/21/21 07/21/21 07/21/21 History Physical Exam Vital Signs: Vital Signs: Last Vital Signs Temp 98.0 F 07/24/21 11:36 Pulse 50 07/24/21 11:36 Resp 18 07/24/21 11:36 BP 158/61 H 07/24/21 11:36 Pulse Ox 100 07/24/21 11:36 BMI result Body Mass Index 24.7 Const: General: cooperative, healthy appearing and comfortable Orientation/consciousness: oriented to person, oriented to place and oriented to time HEENT: Head: Yes normal to inspection Neck: Neck: Yes normal visual inspection Carotids: no bruits Chest: Chest palpation & inspection: normal inspection of the chest Resp: Effort & Inspection: normal respiratory effort and able to speak in complete sentences Auscultation: clear to auscultation bilaterally, no crackles, no rales, no rhonchi and no wheezes Cardio: Rate: regular rate Rhythm: regular rhythm Heart sounds: S1 normal heart sound present and S2 normal heart sound present Bruits: no carotid bruits Peripheral pulses: Peripheral pulses 2+ throughout GI: Inspection: Yes normal to inspection Skin: Other: Right foot amputation sites all well healed there is +1 to +2 edema of the foot. Wounds: no wounds Hair: normal Neuro: General: oriented to person, oriented to place and oriented to time Cranial nerves: Yes CN's II-XII intact bilaterally and Yes Normal hearing present Cognition (Neuro): normal cognition Motor exam (neuro): 5/5 motor strength present throughout Extrem: Other: venous exam: No significant superficial varicosities or spider telangiectasia s, minimal edema General: No clubbing, No cyanosis and No edema Psych: Appearance: grossly normal Mental Status: mental status grossly normal Speech and movement: Normal speech and movement present Results Labs Result diagrams: 07/22/21 06:47 07/22/21 06:47 Labs: Abnormal lab results 07/23/21 Range/Units 15:47 POC Glucose 116 H (60-115) mg/dL All other labs normal. Assessment and Plan (1) Osteomyelitis of foot: Status: Acute Plan It is unfortunate that all his ulcerations have gone on to heal. He continues to have underlying osteomyelitis which may be the cause of his edema. I did have a discussion with him and at the current time he would like to proceed as conservatively as possible. He is not interested in the any further surgery. Would continue with IV antibiotics. In addition due to his underlying osteomyel itis he may be an excellent candidate for hyperbaric oxygen [facility]. We will continue to monitor his status with you. Thank you for allowing us to assist in his care. Procedures Date of Service Date of Service: 07/24/21
[2021-07-24 15:40] VITALS: BP 146/64; PULSE 55; RESP 18; TEMP 36.8; O2SAT 99
[2021-07-24 15:49] LABS: Glucose, Whole Blood 88 mg/dL (60-115)
--- NOTE | 2021-07-24 15:56 | MHC.CM.PN ---
polly correctional counselor/case manager note electronic medical record reviewed along with case discussed with staff nurse and hospitlaphilip t current plan conroinue current treatment here over weekend for iv abx fidelia plan initially home with resumtoion of his [facility] v[facility] for nursing services for iv abx and wound dressing care ? resumption of [facility] infusion for his iv abx he will, need new medication scripts /and wound care dressing canges and will need new pic line (as he pulled it oput) and new scrips for flush line orders intensive care ambulance paramedic to contineu to follow
--- NOTE | 2021-07-24 16:09 | MHC.CM.PN ---
nurse insurance case manager note electronic medical rcord reviewed along with case disucssed with the makenzie patient does nto want to have more surgery and feels his foot is better and want to continue with iv abx , (many time s when asked quwsestions he referrs to have his answer and unable to tell you who is pcp, what vna or dme he has or how often ) plan currently continue current plan with iv abx dischagre geraldo initially home with [facility] services for wound care dressing and iv abx /pic kine flushes coru=am home infusion for iv abx
[2021-07-24 16:36] LABS: Glucose, Whole Blood 121 mg/dL (60-115)
[2021-07-24] MEDS: DAPTOMYCIN IV (17:26)
[2021-07-24] MEDS: SODIUM CHLORIDE 0.9% IV (17:26)
[2021-07-24 19:22] VITALS: BP 167/75; PULSE 53; RESP 18; TEMP 36.6; O2SAT 96
[2021-07-24 19:42] LABS: Glucose, Whole Blood 104 mg/dL (60-115)
[2021-07-24] MEDS: Mirtazapine 7.5 MG TABLET PO (21:40)
[2021-07-24] MEDS: Atorvastatin Calcium 10 MG TABLET PO (21:40)
[2021-07-24 23:21] VITALS: BP 148/66; PULSE 58; RESP 17; TEMP 36.4; O2SAT 96
[2021-07-25 03:44] VITALS: BP 150/60; PULSE 88; RESP 17; TEMP 36.6; O2SAT 96
[2021-07-25] MEDS: Lactated Ringers 1,000 ML 100 ML IVCONT (05:30)
[2021-07-25] MEDS: Levothyroxine Sodium 25 MCG TABLET PO (05:35)
[2021-07-25 08:00] VITALS: BP 190/76; PULSE 73; RESP 18; TEMP 36.3; O2SAT 96
[2021-07-25 08:12] LABS: Glucose, Whole Blood 84 mg/dL (60-115)
[2021-07-25] MEDS: Metoprolol Succinate ER 100 MG TAB.ER.24H PO (09:05)
[2021-07-25] MEDS: Cholecalciferol (Vitamin D3) 25 MCG TABLET PO (09:06)
[2021-07-25] MEDS: Apixaban 5 MG TABLET PO ×2 (09:06→21:08)
[2021-07-25] MEDS: Clopidogrel Bisulfate 75 MG TABLET PO (09:06)
[2021-07-25] MEDS: amLODIPine Besylate 10 MG TABLET PO (09:06)
[2021-07-25] MEDS: Amiodarone HCL 200 MG TABLET PO (09:06)
[2021-07-25 11:08] LABS: Glucose, Whole Blood 119 mg/dL (60-115)
[2021-07-25 11:16] VITALS: BP 145/67; PULSE 51; RESP 18; TEMP 36.7; O2SAT 98
--- NOTE | 2021-07-25 11:51 | HO.PM.IMPN ---
Subjective Subjective Date of Service: 07/25/21 Interval History: No acute issues overnight. Denies pain. After lengthy discussion, agrees to proceed with surgery as discussed with vascular Review of Systems Denies chest pain Denies nausea vomiting diarrhea Denies shortness of breath Physical Exam Vital Signs: Vital Signs: Last Vital Signs Temp 98.1 F 07/25/21 11:16 Pulse 51 07/25/21 11:16 Resp 18 07/25/21 11:16 BP 145/67 H 07/25/21 11:16 Pulse Ox 98 07/25/21 11:16 BMI result Body Mass Index 24.7 Const: Other: No acute issues overnight Resp: Other: Clear to auscultation bilaterally no rales rhonchi wheezes Cardio: Other: No S4; positive S1-S2; no S3 murmurs rubs or gallops GI: Other: Soft nontender nondistended normoactive bowel sounds Extrem: Other: Mild edema of right foot with dorsal erythema/warmth; 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 Two small ulcers on the plantar aspect dry no active drainage(essentially unchanged since admission) Objective Data Active Medications Acetaminophen (Acetaminophen 325 Mg Tablet) 650 mg PO Q6H PRN PRN Reason: Pain, Mild (Pain Scale 1-3) Amiodarone HCl (Amiodarone Hcl 200 Mg Tablet) 200 mg PO DAILY [facility] Last Admin: 07/25/21 09:06 Dose: 200 mg Documented by: NATHAN Amlodipine Besylate (Amlodipine Besylate 10 Mg Tablet) 10 mg PO DAILY [facility]; Protocol Last Admin: 07/25/21 09:06 Dose: 10 mg Documented by: NATHAN Apixaban (Apixaban 5 Mg Tablet) 5 mg PO BID [facility] Last Admin: 07/25/21 09:06 Dose: 5 mg Documented by: NATHAN Atorvastatin Calcium (Atorvastatin Calcium 10 Mg Tablet) 10 mg PO BEDTIME [facility] Last Admin: 07/24/21 21:40 Dose: 10 mg Documented by: ANDRY Clopidogrel Bisulfate (Clopidogrel Bisulfate 75 Mg Tablet) 75 mg PO DAILY [facility] Last Admin: 07/25/21 09:06 Dose: 75 mg Documented by: NATHAN Docusate Sodium (Docusate Sodium 100 Mg Capsule) 100 mg PO DAILY PRN PRN Reason: Constipation Meropenem 1 gm/ Sodium (Chloride) 100 mls @ 200 mls/hr IV Q12H [facility] Last Infusion: 07/25/21 11:41 Dose: 0 mls/hr Documented by: NATHAN Daptomycin 460 mg/ Sodium (Chloride) 59.2 mls @ 100 mls/hr IV Q24H [facility] Last Infusion: 07/24/21 18:05 Dose: 0 mls/hr Documented by: ANDRY Insulin Human Lispro (Insulin Lispro 100 Unit/Ml 3 Ml Vial) 0 unit SUBCUT QIDACHS [facility]; Protocol Last Admin: 07/25/21 09:05 Dose: Not Given Documented by: NATHAN Non-Admin Reason: No Insulin Coverage Levothyroxine Sodium (Levothyroxine Sodium 25 Mcg Tablet) 25 mcg PO DAILY@0600 [facility] Last Admin: 07/25/21 05:35 Dose: 25 mcg Documented by: RANCHO Metoprolol Succinate (Metoprolol Succinate Er 100 Mg Tab.Er.24h) 100 mg PO DAILY [facility]; Protocol Last Admin: 07/25/21 09:05 Dose: 100 mg Documented by: NATHAN Mirtazapine (Mirtazapine 7.5 Mg Tablet) 7.5 mg PO BEDTIME [facility] Last Admin: 07/24/21 21:40 Dose: 7.5 mg Documented by: ANDRY Ondansetron HCl (Ondansetron Hcl 4 Mg/2 Ml Vial) 4 mg IVPUSH Q8H PRN PRN Reason: Nausea and Vomiting Sodium Chloride (0.9 % Sodium Chloride Flush 3 Ml Syringe) 3 ml IVFLUSH QSHIFT [facility] Last Admin: 07/25/21 09:05 Dose: Not Given Documented by: NATHAN Non-Admin Reason: IV Running Timolol Maleate (Timolol Maleate 0.5 % Oph [place] 5 Ml Drbtl) 1 drop EYE-LEFT DAILY [facility] Last Admin: 07/25/21 09:16 Dose: Not Given Documented by: NATHAN Non-Admin Reason: Med Not Available Vitamin D (Cholecalciferol (Vitamin D3) 25 Mcg Tablet) 25 mcg PO DAILY [facility] Last Admin: 07/25/21 09:06 Dose: 25 mcg Documented by: NATHAN Labs CBC & Chem 7: 07/22/21 06:47 04/06/22 06:47 Labs: Laboratory Results - last 24 hr 07/24/21 07/24/21 07/24/21 15:44 16:32 19:38 POC Glucose 88 121 H 104 07/25/21 07/25/21 08:02 11:00 POC Glucose 84 119 H Assessment and Plan (1) Osteomyelitis of foot: Status: Acute (2) DMII (diabetes mellitus, type 2): Status: Acute (3) Atrial fibrillation: Status: Acute (4) Type 2 diabetes mellitus with diabetic foot infection: Status: Acute Plan 76-year-old male history of diabetic neuropathy status post osteomyelitis as well as amputated toes x2 presents with worsening osteomyelitis as documented by MRI 1.Osteomyelitis (right foot) - continue meropenem(5); daptomycin (4) - initially refused surgery but after discussion agrees to proceed as per Dr. Oscar -follow CBC 2. DMII -continue sliding scale insulin adjust as indicated 3. Paroxysmal AFib -Acceptable rate control on current therapies -continue Eloquist as ordered 4. CAD/ PVD -continue Plavix/Eloquist -hold if surgical intervention indicated DVT prophylaxis: Eliquis Full Code Patient will likely require 1-2 midnights going forward for IV antibiotics to treat osteomyelitis that is failing current IV antibiotic regimen Quality Stroke Does the patient have a stroke diagnosis?: No VTE Prior VTE?: No VTE Risk Level:: Medical - moderate - high VTE Device Contraindication: Treatment Not Indicated VTE Drug Contraindication: N/A - Med Ordered
[2021-07-25 15:35] VITALS: BP 150/69; PULSE 54; RESP 18; TEMP 36.4; O2SAT 98
[2021-07-25] MEDS: SODIUM CHLORIDE 0.9% IV (15:45)
[2021-07-25] MEDS: DAPTOMYCIN IV (15:45)
[2021-07-25 16:33] LABS: Glucose, Whole Blood 115 mg/dL (60-115)
[2021-07-25 19:34] VITALS: BP 129/60; PULSE 55; RESP 18; TEMP 36.6; O2SAT 99
[2021-07-25 20:55] LABS: Glucose, Whole Blood 101 mg/dL (60-115)
[2021-07-25] MEDS: 0.9 % Sodium Chloride Flush 3 ML SYRINGE IVFLUSH (21:08)
[2021-07-25] MEDS: Mirtazapine 7.5 MG TABLET PO (21:08)
[2021-07-25] MEDS: Atorvastatin Calcium 10 MG TABLET PO (21:08)
[2021-07-25 23:33] VITALS: BP 133/63; PULSE 51; RESP 16; TEMP 37; O2SAT 97
[2021-07-26 03:44] VITALS: BP 139/63; PULSE 57; RESP 18; TEMP 36.4; O2SAT 98
[2021-07-26 04:11] LABS: MANUAL DIFF FLAG NO
[2021-07-26 04:23] LABS: Basophils Absolute Auto 0.1 X10*3/uL (0.0-0.2); Basophils Percent Auto 0.7 % (0-2); Eosinophils Absolute Auto 0.8 X10*3/uL (0.0-0.4); Eosinophils Percent Auto 9.7 % (0-4); Hematocrit 32.6 % (42.0-52.0); Hemoglobin 10.5 g/dl (14.0-18.0); Imm Gran Abs Auto 0.04 X10*3/uL (0.00-0.03); Imm Gran Pct Auto 0.5 % (0.0-0.4); Lymphocytes Absolute Auto 1.7 X10*3/uL (1.2-4.9); Mean Corpuscular HGB Conc 32.2 g/dl (31.0-36.0); Mean Corpuscular Hemoglobin 29.7 pg (27.0-33.0); Mean Corpuscular Volume 92.4 fL (80.0-98.0); Mean Platelet Volume 10.8 fL (9.4-12.4); Monocytes Absolute Auto 0.8 X10*3/uL (0.1-1.2); Monocytes Percent Auto 9.6 % (2-11); Neutrophils Percent Auto 59.5 % (45-73); Platelet Count 281 X10*3/uL (160-400); Red Blood Count 3.53 X10*6/uL (4.60-5.80); Red Cell Distribution Width 14.6 % (11.0-16.0); White Blood Count 8.3 X10*3/uL (4.8-10.8)
[2021-07-26 04:44] LABS: Alanine Aminotransferase 46 U/L (0-40); Alkaline Phosphatase 112 U/L (39-117); Anion Gap 14 (12-20); Aspartate Amino Transferase 66 U/L (5-37); Bilirubin Total 0.3 mg/dL (0.0-1.0); Blood Urea Nitrogen 31 mg/dL (9-16); Calcium 8.8 mg/dL (8.4-10.2); Carbon Dioxide 25 mmol/L (22-29); Chloride 107 mmol/L (96-108); Estimated Glomerular Filt Rate > 60; Glucose Fasting 85 mg/dL (60-99); Potassium 4.5 mmol/L (3.3-5.1); Sodium 141 mmol/L (135-145)
[2021-07-26] MEDS: Levothyroxine Sodium 25 MCG TABLET PO (06:16)
[2021-07-26 07:16] VITALS: BP 169/49; PULSE 52; RESP 18; TEMP 36.6; O2SAT 99
[2021-07-26 07:33] LABS: Glucose, Whole Blood 75 mg/dL (60-115)
[2021-07-26] MEDS: Amiodarone HCL 200 MG TABLET PO (08:51)
[2021-07-26] MEDS: Clopidogrel Bisulfate 75 MG TABLET PO (08:51)
[2021-07-26] MEDS: amLODIPine Besylate 10 MG TABLET PO (08:51)
[2021-07-26] MEDS: 0.9 % Sodium Chloride Flush 3 ML SYRINGE IVFLUSH ×3 (08:51→21:12)
[2021-07-26] MEDS: timoloL maleate 0.5 % Oph Sol 5 ML DRBTL 1 DROP EYE-LEFT (08:51)
[2021-07-26] MEDS: Apixaban 5 MG TABLET PO (08:51)
[2021-07-26] MEDS: Metoprolol Succinate ER 100 MG TAB.ER.24H PO (08:51)
[2021-07-26] MEDS: Cholecalciferol (Vitamin D3) 25 MCG TABLET PO (08:51)
--- NOTE | 2021-07-26 10:30 | HO.PM.IMPN ---
Subjective Subjective Date of Service: 07/26/21 Interval History: No acute issues overnight. Denies pain. After lengthy discussion, agrees to proceed with surgery as discussed with vascular Review of Systems Denies chest pain Denies nausea vomiting diarrhea Denies shortness of breath Physical Exam Vital Signs: Vital Signs: Last Vital Signs Temp 97.9 F 07/26/21 07:16 Pulse 52 07/26/21 07:16 Resp 18 07/26/21 07:16 BP 169/49 H 07/26/21 07:16 Pulse Ox 99 07/26/21 07:16 BMI result Body Mass Index 24.7 Const: Other: No acute issues overnight Resp: Other: Clear to auscultation bilaterally no rales rhonchi wheezes Cardio: Other: No S4; positive S1-S2; no S3 murmurs rubs or gallops GI: Other: Soft nontender nondistended normoactive bowel sounds Extrem: Other: Mild edema of right foot with dorsal erythema/warmth; 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 Two small ulcers on the plantar aspect dry no active drainage(essentially unchanged since admission) Objective Data Active Medications Acetaminophen (Acetaminophen 325 Mg Tablet) 650 mg PO Q6H PRN PRN Reason: Pain, Mild (Pain Scale 1-3) Amiodarone HCl (Amiodarone Hcl 200 Mg Tablet) 200 mg PO DAILY [facility] Last Admin: 07/26/21 08:51 Dose: 200 mg Documented by: GERALDINE Amlodipine Besylate (Amlodipine Besylate 10 Mg Tablet) 10 mg PO DAILY [facility]; Protocol Last Admin: 07/26/21 08:51 Dose: 10 mg Documented by: GERALDINE Apixaban (Apixaban 5 Mg Tablet) 5 mg PO BID [facility] Last Admin: 07/26/21 08:51 Dose: 5 mg Documented by: GERALDINE Atorvastatin Calcium (Atorvastatin Calcium 10 Mg Tablet) 10 mg PO BEDTIME [facility] Last Admin: 07/25/21 21:08 Dose: 10 mg Documented by: MARIANA Clopidogrel Bisulfate (Clopidogrel Bisulfate 75 Mg Tablet) 75 mg PO DAILY [facility] Last Admin: 07/26/21 08:51 Dose: 75 mg Documented by: GERALDINE Docusate Sodium (Docusate Sodium 100 Mg Capsule) 100 mg PO DAILY PRN PRN Reason: Constipation Meropenem 1 gm/ Sodium (Chloride) 100 mls @ 200 mls/hr IV Q12H [facility] Last Infusion: 07/26/21 09:37 Dose: 0 mls/hr Documented by: GERALDINE Daptomycin 460 mg/ Sodium (Chloride) 59.2 mls @ 100 mls/hr IV Q24H [facility] Last Infusion: 07/25/21 16:38 Dose: 0 mls/hr Documented by: PABLITO Insulin Human Lispro (Insulin Lispro 100 Unit/Ml 3 Ml Vial) 0 unit SUBCUT QIDACHS [facility]; Protocol Last Admin: 07/26/21 07:44 Dose: Not Given Documented by: GERALDINE Non-Admin Reason: No Insulin Coverage Levothyroxine Sodium (Levothyroxine Sodium 25 Mcg Tablet) 25 mcg PO DAILY@0600 [facility] Last Admin: 07/26/21 06:16 Dose: 25 mcg Documented by: MARIANA Metoprolol Succinate (Metoprolol Succinate Er 100 Mg Tab.Er.24h) 100 mg PO DAILY [facility]; Protocol Last Admin: 07/26/21 08:51 Dose: 100 mg Documented by: GERALDINE Mirtazapine (Mirtazapine 7.5 Mg Tablet) 7.5 mg PO BEDTIME [facility] Last Admin: 07/25/21 21:08 Dose: 7.5 mg Documented by: MARIANA Ondansetron HCl (Ondansetron Hcl 4 Mg/2 Ml Vial) 4 mg IVPUSH Q8H PRN PRN Reason: Nausea and Vomiting Sodium Chloride (0.9 % Sodium Chloride Flush 3 Ml Syringe) 3 ml IVFLUSH QSHIFT [facility] Last Admin: 07/26/21 08:51 Dose: 3 ml Documented by: GERALDINE Timolol Maleate (Timolol Maleate 0.5 % [place]ph [place] 5 Ml Drbtl) 1 drop EYE-LEFT DAILY [facility] Last Admin: 07/26/21 08:51 Dose: 1 drop Documented by: GERALDINE Vitamin D (Cholecalciferol (Vitamin D3) 25 Mcg Tablet) 25 mcg PO DAILY [facility] Last Admin: 07/26/21 08:51 Dose: 25 mcg Documented by: GERALDINE Labs CBC & Chem 7: 07/26/21 03:29 07/26/21 03:29 Labs: Laboratory Results - last 24 hr 07/25/21 07/25/2107/25/22 11:00 15:38 20:51 MCV MCH MCHC RDW Plt Count MPV Immature Gran % (Auto) Neut % (Auto) Lymph % (Auto) Hale % (Auto) Eos % (Auto) Baso % (Auto) Lymph # (Auto) [place] # (Auto) Eos # (Auto) Baso # (Auto) Abs Immat Gran (auto) Absolute Neuts (auto) Absolute Nucleated RBC Nucleated RBC % (auto) Anion Gap Estim Creat Clear Calc Estimated GFR POC Glucose 119 H 115 101 Fasting Glucose Calcium Total Bilirubin AST ALT Alkaline Phosphatase Total Protein Albumin 07/26/21 07/26/21 07/26/21 03:29 03:29 07:14 MCV 92.4 MCH 29.7 MCHC 32.2 RDW 14.6 Plt Count 281 MPV 10.8 Immature Gran % (Auto) 0.5 H Neut % (Auto) 59.5 Lymph % (Auto) 20.0 Hale % (Auto) 9.6 Eos % (Auto) 9.7 H Baso % (Auto) 0.7 Lymph # (Auto) 1.7 Hale # (Auto) 0.8 Eos # (Auto) 0.8 H Baso # (Auto) 0.1 Abs Immat Gran (auto) 0.04 H Absolute Neuts (auto) 5.0 Absolute Nucleated RBC 0.000 Nucleated RBC % (auto) 0.0 Anion Gap 14 Estim Creat Clear Calc 52.0 Estimated GFR > 60 POC Glucose 75 Fasting Glucose 85 Calcium 8.8 Total Bilirubin 0.3 AST 66 H ALT 46 H Alkaline Phosphatase 112 Total Protein 6.0 L Albumin 3.0 L Assessment and Plan (1) Osteomyelitis of foot: Status: Acute (2) Type 2 diabetes mellitus with peripheral artery disease: Status: Acute (3) Atrial fibrillation: Status: Acute (4) Coronary artery disease: Status: Acute Plan 76-year-old male history of diabetic neuropathy status post osteomyelitis as well as amputated toes x2 presents with worsening osteomyelitis as documented by MRI 1.Osteomyelitis (right foot) - continue meropenem(6); daptomycin (5) - initially refused surgery but after discussion agrees to proceed as per Dr. Oscar -follow CBC -NPO after midnight 2. DMII -continue sliding scale insulin adjust as indicated 3. Paroxysmal AFib -Acceptable rate control on current therapies -continue Eloquist as ordered 4. CAD/ PVD -continue Plavix/Eloquist -hold if surgical intervention indicated DVT prophylaxis: Eliquis Full Code Patient will likely require 1-2 midnights going forward for IV antibiotics to treat osteomyelitis that is failing current IV antibiotic regimen Quality Stroke Does the patient have a stroke diagnosis?: No VTE Prior VTE?: No VTE Risk Level:: Medical - moderate - high VTE Device Contraindication: Treatment Not Indicated VTE Drug Contraindication: N/A - Med Ordered
[2021-07-26 11:19] VITALS: BP 171/72; PULSE 50; RESP 18; TEMP 36.7; O2SAT 98
[2021-07-26 11:28] LABS: Glucose, Whole Blood 138 mg/dL (60-115)
[2021-07-26 15:36] VITALS: BP 142/66; PULSE 50; RESP 18; TEMP 36.7; O2SAT 97
[2021-07-26] MEDS: SODIUM CHLORIDE 0.9% IV (15:43)
[2021-07-26] MEDS: DAPTOMYCIN IV (15:43)
[2021-07-26 16:08] LABS: Glucose, Whole Blood 90 mg/dL (60-115)
[2021-07-26 20:00] VITALS: BP 148/68; PULSE 52; RESP 18; TEMP 36.5; O2SAT 97
[2021-07-26 20:26] LABS: Glucose, Whole Blood 104 mg/dL (60-115)
[2021-07-26] MEDS: Atorvastatin Calcium 10 MG TABLET PO (20:57)
[2021-07-26] MEDS: Mirtazapine 7.5 MG TABLET PO (20:57)
[2021-07-26 23:38] VITALS: BP 135/60; PULSE 49; RESP 18; TEMP 36.4; O2SAT 95
[2021-07-27 03:27] VITALS: BP 140/65; PULSE 50; RESP 18; TEMP 36.6; O2SAT 98
[2021-07-27] MEDS: Levothyroxine Sodium 25 MCG TABLET PO (05:13)
[2021-07-27 05:56] LABS: MANUAL DIFF FLAG NO
[2021-07-27 06:01] LABS: Basophils Absolute Auto 0.1 X10*3/uL (0.0-0.2); Basophils Percent Auto 0.6 % (0-2); Eosinophils Percent Auto 11.2 % (0-4); Hematocrit 34.6 % (42.0-52.0); Hemoglobin 11.1 g/dl (14.0-18.0); Imm Gran Abs Auto 0.05 X10*3/uL (0.00-0.03); Imm Gran Pct Auto 0.5 % (0.0-0.4); Lymphocytes Absolute Auto 1.7 X10*3/uL (1.2-4.9); Lymphocytes Percent Auto 18.2 % (20-40); Mean Corpuscular HGB Conc 32.1 g/dl (31.0-36.0); Mean Corpuscular Hemoglobin 29.5 pg (27.0-33.0); Mean Platelet Volume 11.1 fL (9.4-12.4); Monocytes Absolute Auto 0.9 X10*3/uL (0.1-1.2); Monocytes Percent Auto 9.9 % (2-11); Neutrophils Absolute Auto 5.5 x10*3/uL (2.0-8.3); Neutrophils Percent Auto 59.6 % (45-73); Platelet Count 289 X10*3/uL (160-400); Red Blood Count 3.76 X10*6/uL (4.60-5.80); Red Cell Distribution Width 14.6 % (11.0-16.0); White Blood Count 9.3 X10*3/uL (4.8-10.8)
[2021-07-27 06:22] LABS: Alanine Aminotransferase 67 U/L (0-40); Albumin Level 3.2 g/dL (3.5-5.0); Alkaline Phosphatase 128 U/L (39-117); Anion Gap 12 (12-20); Aspartate Amino Transferase 85 U/L (5-37); Bilirubin Total 0.3 mg/dL (0.0-1.0); Blood Urea Nitrogen 30 mg/dL (9-16); Calcium 8.8 mg/dL (8.4-10.2); Carbon Dioxide 26 mmol/L (22-29); Chloride 106 mmol/L (96-108); Creatinine Clr Calc Pharmacy 47.9; Estimated Glomerular Filt Rate 55; Glucose Fasting 84 mg/dL (60-99); Potassium 4.5 mmol/L (3.3-5.1); Sodium 139 mmol/L (135-145); Total Protein 6.3 g/dL (6.5-8.0)
[2021-07-27 07:19] VITALS: BP 169/78; PULSE 52; RESP 17; TEMP 36.2; O2SAT 98
[2021-07-27 07:41] LABS: Glucose, Whole Blood 71 mg/dL (60-115)
[2021-07-27] MEDS: Cholecalciferol (Vitamin D3) 25 MCG TABLET PO (08:14)
[2021-07-27] MEDS: Amiodarone HCL 200 MG TABLET PO (08:14)
[2021-07-27] MEDS: timoloL maleate 0.5 % Oph Sol 5 ML DRBTL 1 DROP EYE-LEFT (08:14)
[2021-07-27] MEDS: amLODIPine Besylate 10 MG TABLET PO (08:15)
[2021-07-27] MEDS: 0.9 % Sodium Chloride Flush 3 ML SYRINGE IVFLUSH ×3 (08:15→20:49)
--- NOTE | 2021-07-27 10:04 | HO.VASCPN ---
Subjective Subjective Date of Service: 07/27/21 Patient reports: no new complaints Interval history: Pleasant 76-year-old gentleman presents with pain and discomfort of the right foot. It has been progressing for period of time. He has had prior toe amputations. He has had prior MRI which was positive for osteomyelitis. He has undergone CT scan on 07/21/2021 which is concerning for progression of disease. He is now for vascular follow-up. He has had time of the weekend to consider further operations and would like to proceed with that. Physical Exam Vital Signs: Vital Signs: Last Vital Signs Temp 97.2 F 07/27/21 07:19 Pulse 52 07/27/21 07:19 Resp 17 07/27/21 07:19 BP 169/78 H 07/27/21 07:19 Pulse Ox 98 07/27/21 07:19 BMI result Body Mass Index 24.7 Const: General: cooperative, healthy appearing and no acute distress Orientation/consciousness: oriented to person, oriented to place and oriented to time HEENT: Head: Yes normal to inspection Neck: Carotids: no bruits Chest: Chest palpation & inspection: normal inspection of the chest Resp: Effort & Inspection: normal respiratory effort and able to speak in complete sentences Auscultation: clear to auscultation bilaterally Cardio: Rate: regular rate Heart sounds: S1 normal heart sound present and S2 normal heart sound present GI: Inspection: Yes normal to inspection Skin: Other: Plus two edema of the right foot and a small plantar ulceration with surrounding callus General skin exam: no rashes or lesions noted Wounds: amputation site ( toe amputation sites appear to be healing well.) Neuro: General: oriented to person, oriented to place, oriented to time and CN's II-XI intact bilaterally Extrem: General: Yes normal to inspection, Yes full ROM and Yes no clubbing, cyanosis or edema Psych: Appearance: grossly normal and well kempt Speech and movement: Normal speech and movement present Affect: normal affect Progress Note: A&P Assessment and plan (1) Osteomyelitis of foot: Status: Acute Plan In short patient will require right transmetatarsal amputation. Risks benefits complications including nonhealing have been discussed in detail with the patient. The hopes is that this will control and removed the underlying osteomyelitis which will hopefully allow him to become more functional. This was discussed in detail with the patient. He he understood and would like to move forward. Fall Risk Details Current Medications: Current Medications Acetaminophen (Acetaminophen 325 Mg Tablet) 650 mg PO Q6H PRN PRN Reason: Pain, Mild (Pain Scale 1-3) Amiodarone HCl (Amiodarone Hcl 200 Mg Tablet) 200 mg PO DAILY [facility] Last Admin: 07/27/21 08:14 Dose: 200 mg Documented by: Amlodipine Besylate (Amlodipine Besylate 10 Mg Tablet) 10 mg PO DAILY [facility]; Protocol Last Admin: 07/27/21 08:15 Dose: 10 mg Documented by: Apixaban (Apixaban 5 Mg Tablet) 5 mg PO BID [facility] Last Admin: 07/27/21 08:15 Dose: Not Given Documented by: Atorvastatin Calcium (Atorvastatin Calcium 10 Mg Tablet) 10 mg PO BEDTIME [facility] Last Admin: 07/26/21 20:57 Dose: 10 mg Documented by: Clopidogrel Bisulfate (Clopidogrel Bisulfate 75 Mg Tablet) 75 mg PO DAILY [facility] Last Admin: 07/27/21 08:15 Dose: Not Given Documented by: Docusate Sodium (Docusate Sodium 100 Mg Capsule) 100 mg PO DAILY PRN PRN Reason: Constipation Meropenem 1 gm/ Sodium (Chloride) 100 mls @ 200 mls/hr IV Q12H [facility] Last Infusion: 07/27/21 09:09 Dose: Infused Documented by: Daptomycin 460 mg/ Sodium (Chloride) 59.2 mls @ 100 mls/hr IV Q24H [facility] Last Infusion: 07/26/21 16:26 Dose: Infused Documented by: Insulin Human Lispro (Insulin Lispro 100 Unit/Ml 3 Ml Vial) 0 unit SUBCUT QIDACHS [facility]; Protocol Last Admin: 07/27/21 07:40 Dose: Not Given Documented by: Levothyroxine Sodium (Levothyroxine Sodium 25 Mcg Tablet) 25 mcg PO DAILY@0600 [facility] Last Admin: 07/27/21 05:13 Dose: 25 mcg Documented by: Metoprolol Succinate (Metoprolol Succinate Er 100 Mg Tab.Er.24h) 100 mg PO DAILY [facility]; Protocol Last Admin: 07/27/21 08:16 Dose: Not Given Documented by: Mirtazapine (Mirtazapine 7.5 Mg Tablet) 7.5 mg PO BEDTIME [facility] Last Admin: 07/26/21 20:57 Dose: 7.5 mg Documented by: Ondansetron HCl (Ondansetron Hcl 4 Mg/2 Ml Vial) 4 mg IVPUSH Q8H PRN PRN Reason: Nausea and Vomiting Sodium Chloride (0.9 % Sodium Chloride Flush 3 Ml Syringe) 3 ml IVFLUSH QSHIFT [facility] Last Admin: 07/27/21 08:15 Dose: 3 ml Documented by: Timolol Maleate (Timolol Maleate 0.5 % [place] 5 Ml Drbtl) 1 drop EYE-LEFT DAILY [facility] Last Admin: 07/27/21 08:14 Dose: 1 drop Documented by: Vitamin D (Cholecalciferol (Vitamin D3) 25 Mcg Tablet) 25 mcg PO DAILY [facility] Last Admin: 07/27/21 08:14 Dose: 25 mcg Documented by: Time Spent With Patient Time: Total time spent is greater than 50% in coordination of care (as documented) at patient's floor/unit and/or counseling patient: Procedures Date of Service Date of Service: 07/27/21 Quality Stroke Does the patient have a stroke diagnosis?: No VTE Prior VTE?: No VTE Risk Level:: Medical - moderate - high VTE Device Contraindication: Treatment Not Indicated VTE Drug Contraindication: N/A - Med Ordered
[2021-07-27 11:06] VITALS: BP 169/77; PULSE 52; RESP 18; TEMP 36.2; O2SAT 99
[2021-07-27 11:11] LABS: Glucose, Whole Blood 76 mg/dL (60-115)
--- NOTE | 2021-07-27 11:19 | MHC.CM.PN ---
Patient is not yet medically cleared for dc (IV Dapto, IV Meropenem, ? (R) TMA today); HOME WITH SERVICES IS THE GOAL AND CM Will follow for possible need to adjust the dc plan.
--- NOTE | 2021-07-27 12:24 | HO.PM.IMPN ---
Subjective Subjective Date of Service: 07/27/21 Interval History: No acute issues overnight. Denies pain. After lengthy discussion, agrees to proceed with surgery as discussed with vascular Review of Systems Denies chest pain Denies nausea vomiting diarrhea Denies shortness of breath Physical Exam Vital Signs: Vital Signs: Last Vital Signs Temp 97.2 F 07/27/21 11:06 Pulse 52 07/27/21 11:06 Resp 18 07/27/21 11:06 BP 169/77 H 07/27/21 11:06 Pulse Ox 99 07/27/21 11:06 BMI result Body Mass Index 24.7 Const: Other: No acute issues overnight Resp: Other: Clear to auscultation bilaterally no rales rhonchi wheezes Cardio: Other: No S4; positive S1-S2; no S3 murmurs rubs or gallops GI: Other: Soft nontender nondistended normoactive bowel sounds Extrem: Other: Mild edema of right foot with dorsal erythema/warmth; 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 Two small ulcers on the plantar aspect dry no active drainage(essentially unchanged since admission) Objective Data Active Medications Acetaminophen (Acetaminophen 325 Mg Tablet) 650 mg PO Q6H PRN PRN Reason: Pain, Mild (Pain Scale 1-3) Amiodarone HCl (Amiodarone Hcl 200 Mg Tablet) 200 mg PO DAILY [facility] Last Admin: 07/27/21 08:14 Dose: 200 mg Documented by: PABLITO Amlodipine Besylate (Amlodipine Besylate 10 Mg Tablet) 10 mg PO DAILY [facility]; Protocol Last Admin: 07/27/21 08:15 Dose: 10 mg Documented by: PABLITO Apixaban (Apixaban 5 Mg Tablet) 5 mg PO BID [facility] Last Admin: 07/27/21 08:15 Dose: Not Given Documented by: PABLITO Non-Admin Reason: poss.surgery Atorvastatin Calcium (Atorvastatin Calcium 10 Mg Tablet) 10 mg PO BEDTIME [facility] Last Admin: 07/26/21 20:57 Dose: 10 mg Documented by: TERI Clopidogrel Bisulfate (Clopidogrel Bisulfate 75 Mg Tablet) 75 mg PO DAILY [facility] Last Admin: 07/27/21 08:15 Dose: Not Given Documented by: PABLITO Non-Admin Reason: poss surgery Docusate Sodium (Docusate Sodium 100 Mg Capsule) 100 mg PO DAILY PRN PRN Reason: Constipation Meropenem 1 gm/ Sodium (Chloride) 100 mls @ 200 mls/hr IV Q12H [facility] Last Infusion: 07/27/21 09:09 Dose: 0 mls/hr Documented by: PABLITO Daptomycin 460 mg/ Sodium (Chloride) 59.2 mls @ 100 mls/hr IV Q24H [facility] Last Infusion: 07/26/21 16:26 Dose: 0 mls/hr Documented by: GERALDINE Insulin Human Lispro (Insulin Lispro 100 Unit/Ml 3 Ml Vial) 0 unit SUBCUT QIDACHS [facility]; Protocol Last Admin: 07/27/21 11:28 Dose: Not Given Documented by: PABLITO Non-Admin Reason: No Insulin Coverage Levothyroxine Sodium (Levothyroxine Sodium 25 Mcg Tablet) 25 mcg PO DAILY@0600 [facility] Last Admin: 07/27/21 05:13 Dose: 25 mcg Documented by: TERI Metoprolol Succinate (Metoprolol Succinate Er 100 Mg Tab.Er.24h) 100 mg PO DAILY [facility]; Protocol Last Admin: 07/27/21 08:16 Dose: Not Given Documented by: PABLITO Non-Admin Reason: Decreased Heart Rate Mirtazapine (Mirtazapine 7.5 Mg Tablet) 7.5 mg PO BEDTIME [facility] Last Admin: 07/26/21 20:57 Dose: 7.5 mg Documented by: TERI Ondansetron HCl (Ondansetron Hcl 4 Mg/2 Ml Vial) 4 mg IVPUSH Q8H PRN PRN Reason: Nausea and Vomiting Sodium Chloride (0.9 % Sodium Chloride Flush 3 Ml Syringe) 3 ml IVFLUSH QSHIFT [facility] Last Admin: 07/27/21 08:15 Dose: 3 ml Documented by: PABLITO Timolol Maleate (Timolol Maleate 0.5 % [place]ph [place] 5 Ml Drbtl) 1 drop EYE-LEFT DAILY [facility] Last Admin: 07/27/21 08:14 Dose: 1 drop Documented by: PABLITO Vitamin D (Cholecalciferol (Vitamin D3) 25 Mcg Tablet) 25 mcg PO DAILY [facility] Last Admin: 07/27/21 08:14 Dose: 25 mcg Documented by: PABLITO Labs CBC & Chem 7: 07/27/21 05:36 07/27/21 05:36 Labs: Laboratory Results - last 24 hr 07/26/21 07/26/21 07/27/21 15:38 20:15 05:36 MCV 92.0 MCH 29.5 MCHC 32.1 RDW 14.6 Plt Count 289 MPV 11.1 Immature Gran % (Auto) 0.5 H Neut % (Auto) 59.6 Lymph % (Auto) 18.2 L [place] % (Auto) 9.9 Eos % (Auto) 11.2 H Baso % (Auto) 0.6 Lymph # (Auto) 1.7 [place] # (Auto) 0.9 Eos # (Auto) 1.0 H Baso # (Auto) 0.1 Abs Immat Gran (auto) 0.05 H Absolute Neuts (auto) 5.5 Absolute Nucleated RBC 0.000 Nucleated RBC % (auto) 0.0 Anion Gap Estim Creat Clear Calc Estimated GFR POC Glucose 90 104 Fasting Glucose Calcium Total Bilirubin AST ALT Alkaline Phosphatase Total Protein Albumin 07/27/21 07/27/21 07/27/21 05:36 07:25 11:05 MCV MCH MCHC RDW Plt Count MPV Immature Gran % (Auto) Neut % (Auto) Lymph % (Auto) [place] % (Auto) Eos % (Auto) Baso % (Auto) Lymph # (Auto) [place] # (Auto) Eos # (Auto) Baso # (Auto) Abs Immat Gran (auto) Absolute Neuts (auto) Absolute Nucleated RBC Nucleated RBC % (auto) Anion Gap 12 Estim Creat Clear Calc 47.9 Estimated GFR 55 POC Glucose 71 76 Fasting Glucose 84 Calcium 8.8 Total Bilirubin 0.3 AST 85 H ALT 67 H Alkaline Phosphatase 128 H Total Protein 6.3 L Albumin 3.2 L Microbiology Microbiology Results: Microbiology 07/21/21 16:45 Blood Culture - Final Blood - Venous No growth after 5 days. 07/21/21 16:45 Blood Culture - Final Blood - Venous No growth after 5 days. Assessment and Plan (1) Osteomyelitis of foot: Status: Acute (2) DMII (diabetes mellitus, type 2): Status: Acute (3) Atrial fibrillation: Status: Acute (4) Coronary artery disease: Status: Acute Plan 76-year-old male history of diabetic neuropathy status post osteomyelitis as well as amputated toes x2 presents with worsening osteomyelitis as documented by MRI 1.Osteomyelitis (right foot) -continue meropenem(7); daptomycin (6) -Surgery 07/28/21 1300 -NPO after midnight 2. DMII -continue sliding scale insulin adjust as indicated 3. Paroxysmal AFib -Acceptable rate control on current therapies -continue Eloquist as ordered 4. CAD/ PVD -continue Plavix/Eloquist -hold if surgical intervention indicated DVT prophylaxis: Eliquis Full Code Patient will likely require 1-2 midnights going forward for IV antibiotics; plan dictated by response to surgery Quality Stroke Does the patient have a stroke diagnosis?: No VTE Prior VTE?: No VTE Risk Level:: Medical - moderate - high VTE Device Contraindication: Treatment Not Indicated VTE Drug Contraindication: N/A - Med Ordered
--- NOTE | 2021-07-27 14:46 | P.PNID_ITS ---
Subjective Subjective Date of Service: 07/27/21 Critical Care Time (minutes): 15 Comment: He is doing well and says foot is stable Objective Data Labs CBC & Chem 7: 07/27/21 05:36 07/27/21 05:36 Labs: Laboratory Results - last 24 hr 07/26/21 07/26/21 07/27/21 15:38 20:15 05:36 WBC 9.3 RBC 3.76 L Hgb 11.1 L Hct 34.6 L MCV 92.0 MCH 29.5 MCHC 32.1 RDW 14.6 Plt Count 289 MPV 11.1 Immature Gran % (Auto) 0.5 H Neut % (Auto) 59.6 Lymph % (Auto) 18.2 L [place] % (Auto) 9.9 Eos % (Auto) 11.2 H Baso % (Auto) 0.6 Lymph # (Auto) 1.7 [place] # (Auto) 0.9 Eos # (Auto) 1.0 H Baso # (Auto) 0.1 Abs Immat Gran (auto) 0.05 H Absolute Neuts (auto) 5.5 Absolute Nucleated RBC 0.000 Nucleated RBC % (auto) 0.0 Sodium Potassium Chloride Carbon Dioxide Anion Gap BUN Creatinine Estim Creat Clear Calc Estimated GFR POC Glucose 90 104 Fasting Glucose Calcium Total Bilirubin AST ALT Alkaline Phosphatase Total Protein Albumin 07/27/21 07/27/21 07/27/21 05:36 07:25 11:05 WBC RBC Hgb Hct MCV MCH MCHC RDW Plt Count MPV Immature Gran % (Auto) Neut % (Auto) Lymph % (Auto) [place] % (Auto) Eos % (Auto) Baso % (Auto) Lymph # (Auto) [place] # (Auto) Eos # (Auto) Baso # (Auto) Abs Immat Gran (auto) Absolute Neuts (auto) Absolute Nucleated RBC Nucleated RBC % (auto) Sodium 139 Potassium 4.5 Chloride 106 Carbon Dioxide 26 Anion Gap 12 BUN 30 H Creatinine 1.27 Estim Creat Clear Calc 47.9 Estimated GFR 55 POC Glucose 71 76 Fasting Glucose 84 Calcium 8.8 Total Bilirubin 0.3 AST 85 H ALT 67 H Alkaline Phosphatase 128 H Total Protein 6.3 L Albumin 3.2 L Microbiology Microbiology Results: Microbiology 07/21/21 16:45 Blood - Venous Blood Culture - Final No growth after 5 days. 07/21/21 16:45 Blood - Venous Blood Culture - Final No growth after 5 days. Physical Exam Vital Signs: Vital Signs: Last Vital Signs Temp 97.2 F 07/27/21 11:06 Pulse 52 07/27/21 11:06 Resp 18 07/27/21 11:06 BP 169/77 H 07/27/21 11:06 Pulse Ox 99 07/27/21 11:06 BMI result Body Mass Index 24.7 Const: General: cooperative HEENT: Head: Yes normal to inspection Mouth: Normal oral and palatal mucosa present Resp: Effort & Inspection: normal respiratory effort Cardio: Rate: regular rate Rhythm: regular rhythm GI: Palpation (GI): Soft to palpation and nontender Extrem: Other: right foot swelling Assessment and Plan Assessment and plan (1) Osteomyelitis of foot: Problem details: gram negative ,gram positive concern osteomyelitis Status: Acute Plan Would continue Merem and Daptomycin pending tomorrows right transmetatarsal amputation and then if all affected bone removed would give po Doxycycline for a week Otherwise is affected bone remains six weeks Merem and Daptomycin. Limb remains at risk Time Spent With Patient Time: Total time spent is greater than 50% in coordination of care (as documented) at patient's floor/unit and/or counseling patient:
[2021-07-27 15:30] VITALS: BP 145/67; PULSE 50; RESP 19; TEMP 36.3; O2SAT 98
[2021-07-27] MEDS: DAPTOMYCIN IV (15:37)
[2021-07-27] MEDS: SODIUM CHLORIDE 0.9% IV (15:37)
[2021-07-27 15:54] LABS: Glucose, Whole Blood 108 mg/dL (60-115)
[2021-07-27 19:12] VITALS: BP 133/60; PULSE 51; RESP 16; TEMP 36.2; O2SAT 98
[2021-07-27] MEDS: Mirtazapine 7.5 MG TABLET PO (20:44)
[2021-07-27] MEDS: Atorvastatin Calcium 10 MG TABLET PO (20:44)
[2021-07-27 21:24] LABS: Glucose, Whole Blood 134 mg/dL (60-115)
[2021-07-27 23:38] VITALS: BP 130/60; PULSE 51; RESP 18; TEMP 36.6; O2SAT 96
[2021-07-28] VITALS (12 sets, daily range): BP systolic 103–167; BP diastolic 56–82; PULSE 43–56; RESP 12–20; TEMP 35.6–37.1; O2SAT 98–100
[2021-07-28] MEDS: Levothyroxine Sodium 25 MCG TABLET PO (05:10)
[2021-07-28 06:02] LABS: MANUAL DIFF FLAG NO
[2021-07-28 06:06] LABS: Basophils Absolute Auto 0.1 X10*3/uL (0.0-0.2); Basophils Percent Auto 0.9 % (0-2); Eosinophils Absolute Auto 0.8 X10*3/uL (0.0-0.4); Eosinophils Percent Auto 9.7 % (0-4); Hematocrit 32.8 % (42.0-52.0); Hemoglobin 10.5 g/dl (14.0-18.0); Imm Gran Abs Auto 0.03 X10*3/uL (0.00-0.03); Imm Gran Pct Auto 0.4 % (0.0-0.4); Lymphocytes Absolute Auto 1.7 X10*3/uL (1.2-4.9); Lymphocytes Percent Auto 19.6 % (20-40); Mean Corpuscular Hemoglobin 29.7 pg (27.0-33.0); Mean Corpuscular Volume 92.9 fL (80.0-98.0); Mean Platelet Volume 11.3 fL (9.4-12.4); Monocytes Absolute Auto 0.9 X10*3/uL (0.1-1.2); Monocytes Percent Auto 10.3 % (2-11); Neutrophils Percent Auto 59.1 % (45-73); Platelet Count 267 X10*3/uL (160-400); Red Blood Count 3.53 X10*6/uL (4.60-5.80); Red Cell Distribution Width 14.9 % (11.0-16.0); White Blood Count 8.5 X10*3/uL (4.8-10.8)
[2021-07-28 06:13] LABS: INTERNATIONAL NORM RATIO 1.3 (0.9-1.1); Prothrombin Time 14.4 SEC (9.9-13.0)
[2021-07-28 06:27] LABS: Alanine Aminotransferase 59 U/L (0-40); Alkaline Phosphatase 127 U/L (39-117); Anion Gap 13 (12-20); Aspartate Amino Transferase 63 U/L (5-37); Bilirubin Total 0.3 mg/dL (0.0-1.0); Blood Urea Nitrogen 34 mg/dL (9-16); Calcium 8.8 mg/dL (8.4-10.2); Carbon Dioxide 25 mmol/L (22-29); Chloride 107 mmol/L (96-108); Creatinine Clr Calc Pharmacy 39.2; Estimated Glomerular Filt Rate 44; Glucose Fasting 97 mg/dL (60-99); Potassium 4.9 mmol/L (3.3-5.1); Sodium 140 mmol/L (135-145)
[2021-07-28 07:47] LABS: Glucose, Whole Blood 96 mg/dL (60-115)
[2021-07-28] MEDS: timoloL maleate 0.5 % Oph Sol 5 ML DRBTL 1 DROP EYE-LEFT (09:34)
[2021-07-28] MEDS: 0.9 % Sodium Chloride Flush 3 ML SYRINGE IVFLUSH ×2 (09:34→15:31)
[2021-07-28] MEDS: Cholecalciferol (Vitamin D3) 25 MCG TABLET PO (09:35)
[2021-07-28] MEDS: amLODIPine Besylate 10 MG TABLET PO (09:36)
[2021-07-28] MEDS: Amiodarone HCL 200 MG TABLET PO (09:38)
[2021-07-28 11:34] LABS: Glucose, Whole Blood 94 mg/dL (60-115)
[2021-07-28] MEDS: Lactated Ringers 1,000 ML 50 ML IVCONT ×2 (12:42→15:33)
--- NOTE | 2021-07-28 12:51 | HO.ANESPROP2 ---
COUNTS INCLUDE 234 BEDS AT THE [facility] Active Problems Active Problems: All Active Problems (Updated 07/27/21 @ 14:49 by Carmencita Augustine MD) Type 2 diabetes mellitus with peripheral artery disease (Acute) DMII (diabetes mellitus, type 2) (Acute) Osteomyelitis of foot (Acute) Osteomyelitis of foot (Acute) Cellulitis (Acute) Abscess (Acute) Hypothyroid (Acute) TSH elevation (Acute) Hyperkalemia (Acute) Atrial fibrillation (Acute) Tubular adenoma of colon (Acute) Impacted cerumen of both ears (Acute) Generalized anxiety disorder (Acute) Annual physical exam (Acute) Osteomyelitis of toe of right foot (Acute) History of osteomyelitis (Acute) Diabetic foot ulcer (Acute) Cellulitis and abscess of foot (Acute) Open wound (Acute) Anxiety (Acute) Amputated toe of right foot (Acute) Hyponatremia (Acute) Type 2 diabetes mellitus with diabetic foot infection (Acute) Left groin mass (Acute) Impacted cerumen of both ears (Acute) Colon cancer screening (Acute) Annual physical exam (Acute) Hypercholesterolemia (Acute) Asthma (Acute) Tobacco abuse (Acute) Hypertension (Acute) Coronary artery disease (Acute) Past Medical History Medical History (Updated 07/27/21 @ 14:49 by Carmencita Augustine MD) Abscess of right foot Anxiety and depression Asthma Atrial fibrillation with rapid ventricular response Avascular necrosis of bone of hip Coronary artery disease Diabetic foot ulcer Diabetic nephropathy Diabetic neuropathy Diverticular disease Hypercholesterolemia Hypertension Open wound Osteomyelitis of toe PAD (peripheral artery disease) Preoperative cardiovascular examination Thrombocytopenia Tobacco abuse Tubular adenoma of colon Type 2 diabetes mellitus with hyperglycemia Type 2 diabetes mellitus with peripheral artery disease Vitamin D deficiency Family History Family History Father Diabetes Hypertension CVD (cardiovascular disease) Stroke Mother CVD (cardiovascular disease) Hypertension Cancer Sister No problems noted. Son Stroke Surgical History Surgical History Amputated toe of right foot Amputation finger History of cataract surgery History of surgery History of Problems with Anesthesia: No Social History Social History Household Members: Spouse Household Members Other:: 4 Housing: House Do you presently have visiting nurse or other home services: Yes Alcohol intake: former Patient Tobacco Use Status: Former Tobacco user Quit Date: 4 months ago Tobacco use type: Cigarette Cigarettes Per Day: 7 Years Smoked: 09/2020 stopped e-Cigarette/Vaping Use: Never Used Second Hand Smoke Exposure: No Advance Directives Date on File: 07/24/20 service: No Current occupational status: retired Meds Allergies Allergy/AdvReac Type Severity Reaction Status Date / Time No Known Allergies Allergy Mild Verified 06/30/21 16:09 Active Medications: Current Medications Acetaminophen (Acetaminophen 325 Mg Tablet) 650 mg PO Q6H PRN PRN Reason: Pain, Mild (Pain Scale 1-3) Amiodarone HCl (Amiodarone Hcl 200 Mg Tablet) 200 mg PO DAILY [facility] Last Admin: 07/28/21 09:38 Dose: 200 mg Documented by: Amlodipine Besylate (Amlodipine Besylate 10 Mg Tablet) 10 mg PO DAILY [facility]; Protocol Last Admin: 07/28/21 09:36 Dose: 10 mg Documented by: Atorvastatin Calcium (Atorvastatin Calcium 10 Mg Tablet) 10 mg PO BEDTIME [facility] Last Admin: 07/27/21 20:44 Dose: 10 mg Documented by: Clopidogrel Bisulfate (Clopidogrel Bisulfate 75 Mg Tablet) 75 mg PO DAILY [facility] Last Admin: 07/28/21 09:37 Dose: Not Given Documented by: Docusate Sodium (Docusate Sodium 100 Mg Capsule) 100 mg PO DAILY PRN PRN Reason: Constipation Meropenem 1 gm/ Sodium (Chloride) 100 mls @ 200 mls/hr IV Q12H [facility] Last Infusion: 07/28/21 12:13 Dose: Infused Documented by: Daptomycin 460 mg/ Sodium (Chloride) 59.2 mls @ 100 mls/hr IV Q24H [facility] Last Infusion: 07/27/21 16:22 Dose: Infused Documented by: Insulin Human Lispro (Insulin Lispro 100 Unit/Ml 3 Ml Vial) 0 unit SUBCUT QIDACHS [facility]; Protocol Last Admin: 07/28/21 11:43 Dose: Not Given Documented by: Levothyroxine Sodium (Levothyroxine Sodium 25 Mcg Tablet) 25 mcg PO DAILY@0600 [facility] Last Admin: 07/28/21 05:10 Dose: 25 mcg Documented by: Metoprolol Succinate (Metoprolol Succinate Er 100 Mg Tab.Er.24h) 100 mg PO DAILY [facility]; Protocol Last Admin: 07/28/21 09:36 Dose: Not Given Documented by: Mirtazapine (Mirtazapine 7.5 Mg Tablet) 7.5 mg PO BEDTIME [facility] Last Admin: 07/27/21 20:44 Dose: 7.5 mg Documented by: Ondansetron HCl (Ondansetron Hcl 4 Mg/2 Ml Vial) 4 mg IVPUSH Q8H PRN PRN Reason: Nausea and Vomiting Sodium Chloride (0.9 % Sodium Chloride Flush 3 Ml Syringe) 3 ml IVFLUSH QSHIFT [facility] Last Admin: 07/28/21 09:34 Dose: 3 ml Documented by: Timolol Maleate (Timolol Maleate 0.5 % [place] 5 Ml Drbtl) 1 drop EYE-LEFT DAILY [facility] Last Admin: 07/28/21 09:34 Dose: 1 drop Documented by: Vitamin D (Cholecalciferol (Vitamin D3) 25 Mcg Tablet) 25 mcg PO DAILY [facility] Last Admin: 07/28/21 09:35 Dose: 25 mcg Documented by: Home Medications Medication Instructions Recorded Confirmed Last Taken Type cholecalciferol (vitamin D3) 25 25 mcg PO DAILY 04/14/20 07/21/21 07/21/21 History mcg (1,000 unit) capsule timolol maleate 0.5 % eye drops 1 drp OPHTHALMIC-LEFT DAILY 08/21/20 07/21/21 07/21/21 History metformin 500 mg tablet 500 mg PO BIDWM 07/21/21 07/21/21 07/21/21 History Exam Exam Date and Time: July 28, 2021 1251 Height,Weight and Vital Signs: Height 5 ft 9 in Weight 76.2 kg Last Vital Signs Temp 98.4 F 07/28/21 12:39 Pulse 49 L 07/28/21 12:39 Resp 18 07/28/21 11:07 BP 160/64 H 07/28/21 12:39 Pulse Ox 100 07/28/21 12:39 Pertinent Lab Results Pertinent Lab Results: Laboratory Tests 07/21/21 07/21/21 07/21/21 16:45 16:45 16:45 WBC 8.7 RBC 3.39 L Hgb 10.2 L Hct 31.6 L MCV 93.2 MCH 30.1 MCHC 32.3 RDW 14.5 Plt Count 304 MPV 10.4 Immature Gran % (Auto) 0.3 Neut % (Auto) 71.7 Lymph % (Auto) 11.8 L [place] % (Auto) 7.1 Eos % (Auto) 8.6 H Baso % (Auto) 0.5 Lymph # (Auto) 1.0 L [place] # (Auto) 0.6 Eos # (Auto) 0.8 H Baso # (Auto) 0.0 Abs Immat Gran (auto) 0.03 Absolute Neuts (auto) 6.2 Absolute Nucleated RBC 0.000 Nucleated RBC % (auto) 0.0 ESR PT INR Sodium 140 Potassium 4.7 Chloride 105 Carbon Dioxide 26 Anion Gap 14 BUN 24 H Creatinine 1.44 H Estim Creat Clear Calc 42.2 Estimated GFR 47 POC Glucose Random Glucose 93 Fasting Glucose Lactic Acid 2.6 H* Lactic Acid F/U @ 2Hr Calcium 8.9 Total Bilirubin 0.3 Direct Bilirubin 0.2 AST 43 H ALT 32 Alkaline Phosphatase 109 C-Reactive Protein 3.70 H Total Protein 6.5 Albumin 3.3 L Random Vancomycin COVID-19 ([facility]) COVID-19 [employer] 07/21/21 07/21/21 07/21/21 16:45 16:45 19:10 WBC RBC Hgb Hct MCV MCH MCHC RDW Plt Count MPV Immature Gran % (Auto) Neut % (Auto) Lymph % (Auto) [place] % (Auto) Eos % (Auto) Baso % (Auto) Lymph # (Auto) [place] # (Auto) Eos # (Auto) Baso # (Auto) Abs Immat Gran (auto) Absolute Neuts (auto) Absolute Nucleated RBC Nucleated RBC % (auto) ESR 66 H PT INR Sodium Potassium Chloride Carbon Dioxide Anion Gap BUN Creatinine Estim Creat Clear Calc Estimated GFR POC Glucose Random Glucose Fasting Glucose Lactic Acid Lactic Acid F/U @ 2Hr 1.5 Calcium Total Bilirubin Direct Bilirubin AST ALT Alkaline Phosphatase C-Reactive Protein Total Protein Albumin Random Vancomycin 20.9 H COVID-19 ([facility]) COVID-[place] 07/22/21 07/22/21 07/22/21 06:47 06:47 07:31 WBC 9.3 RBC 3.78 L Hgb 11.1 L Hct 34.7 L MCV 91.8 MCH 29.4 MCHC 32.0 RDW 14.4 Plt Count 318 MPV 10.7 Immature Gran % (Auto) 0.4 Neut % (Auto) 65.4 Lymph % (Auto) 12.6 L [place] % (Auto) 9.0 Eos % (Auto) 12.1 H Baso % (Auto) 0.5 Lymph # (Auto) 1.2 [place] # (Auto) 0.8 Eos # (Auto) 1.1 H Baso # (Auto) 0.1 Abs Immat Gran (auto) 0.04 H Absolute Neuts (auto) 6.1 Absolute Nucleated RBC 0.000 Nucleated RBC % (auto) 0.0 ESR PT INR Sodium 137 Potassium 4.9 Chloride 104 Carbon Dioxide 26 Anion Gap 12 BUN 19 H Creatinine 1.19 Estim Creat Clear Calc 51.1 Estimated GFR 59 POC Glucose 83 Random Glucose 92 Fasting Glucose Lactic Acid Lactic Acid F/U @ 2Hr Calcium 9.3 Total Bilirubin Direct Bilirubin AST ALT Alkaline Phosphatase C-Reactive Protein Total Protein Albumin Random Vancomycin COVID-19 ([facility]) COVID-19 [employer] 07/22/21 07/22/21 07/22/21 08:53 12:37 18:22 WBC RBC Hgb Hct MCV MCH MCHC RDW Plt Count MPV Immature Gran % (Auto) Neut % (Auto) Lymph % (Auto) [place] % (Auto) Eos % (Auto) Baso % (Auto) Lymph # (Auto) [place] # (Auto) Eos # (Auto) Baso # (Auto) Abs Immat Gran (auto) Absolute Neuts (auto) Absolute Nucleated RBC Nucleated RBC % (auto) ESR PT INR Sodium Potassium Chloride Carbon Dioxide Anion Gap BUN Creatinine Estim Creat Clear Calc Estimated GFR POC Glucose 94 87 Random Glucose Fasting Glucose Lactic Acid Lactic Acid F/U @ 2Hr Calcium Total Bilirubin Direct Bilirubin AST ALT Alkaline Phosphatase C-Reactive Protein Total Protein Albumin Random Vancomycin COVID-19 ([facility]) Negative COVID-19 Clin Com See Note 07/22/21 07/23/21 07/23/21 21:06 07:00 11:08 WBC RBC Hgb Hct MCV MCH MCHC RDW Plt Count MPV Immature Gran % (Auto) Neut % (Auto) Lymph % (Auto) [place] % (Auto) Eos % (Auto) Baso % (Auto) Lymph # (Auto) [place] # (Auto) Eos # (Auto) Baso # (Auto) Abs Immat Gran (auto) Absolute Neuts (auto) Absolute Nucleated RBC Nucleated RBC % (auto) ESR PT INR Sodium Potassium Chloride Carbon Dioxide Anion Gap BUN Creatinine Estim Creat Clear Calc Estimated GFR POC Glucose 124 H 85 101 Random Glucose Fasting Glucose Lactic Acid Lactic Acid F/U @ 2Hr Calcium Total Bilirubin Direct Bilirubin AST ALT Alkaline Phosphatase C-Reactive Protein Total Protein Albumin Random Vancomycin COVID-19 ([facility]) COVID-19 [employer] 07/23/21 07/23/21 07/24/21 15:47 19:32 07:27 WBC RBC Hgb Hct MCV MCH MCHC RDW Plt Count MPV Immature Gran % (Auto) Neut % (Auto) Lymph % (Auto) [place] % (Auto) Eos % (Auto) Baso % (Auto) Lymph # (Auto) [place] # (Auto) Eos # (Auto) Baso # (Auto) Abs Immat Gran (auto) Absolute Neuts (auto) Absolute Nucleated RBC Nucleated RBC % (auto) ESR PT INR Sodium Potassium Chloride Carbon Dioxide Anion Gap BUN Creatinine Estim Creat Clear Calc Estimated GFR POC Glucose 116 H 112 72 Random Glucose Fasting Glucose Lactic Acid Lactic Acid F/U @ 2Hr Calcium Total Bilirubin Direct Bilirubin AST ALT Alkaline Phosphatase C-Reactive Protein Total Protein Albumin Random Vancomycin COVID-19 ([facility]) COVID-19 [employer] 07/24/21 07/24/21 07/24/21 11:21 15:44 16:32 WBC RBC Hgb Hct MCV MCH MCHC RDW Plt Count MPV Immature Gran % (Auto) Neut % (Auto) Lymph % (Auto) [place] % (Auto) Eos % (Auto) Baso % (Auto) Lymph # (Auto) [place] # (Auto) Eos # (Auto) Baso # (Auto) Abs Immat Gran (auto) Absolute Neuts (auto) Absolute Nucleated RBC Nucleated RBC % (auto) ESR PT INR Sodium Potassium Chloride Carbon Dioxide Anion Gap BUN Creatinine Estim Creat Clear Calc Estimated GFR POC Glucose 102 88 121 H Random Glucose Fasting Glucose Lactic Acid Lactic Acid F/U @ 2Hr Calcium Total Bilirubin Direct Bilirubin AST ALT Alkaline Phosphatase C-Reactive Protein Total Protein Albumin Random Vancomycin COVID-19 ([facility]) COVID-19 [employer] 07/24/21 07/25/21 07/25/21 19:38 08:02 11:00 WBC RBC Hgb Hct MCV MCH MCHC RDW Plt Count MPV Immature Gran % (Auto) Neut % (Auto) Lymph % (Auto) [place] % (Auto) Eos % (Auto) Baso % (Auto) Lymph # (Auto) [place] # (Auto) Eos # (Auto) Baso # (Auto) Abs Immat Gran (auto) Absolute Neuts (auto) Absolute Nucleated RBC Nucleated RBC % (auto) ESR PT INR Sodium Potassium Chloride Carbon Dioxide Anion Gap BUN Creatinine Estim Creat Clear Calc Estimated GFR POC Glucose 104 84 119 H Random Glucose Fasting Glucose Lactic Acid Lactic Acid F/U @ 2Hr Calcium Total Bilirubin Direct Bilirubin AST ALT Alkaline Phosphatase C-Reactive Protein Total Protein Albumin Random Vancomycin COVID-19 ([facility]) COVID-19 [employer] 07/25/21 07/25/21 07/26/21 15:38 20:51 03:29 WBC 8.3 RBC 3.53 L Hgb 10.5 L Hct 32.6 L MCV 92.4 MCH 29.7 MCHC 32.2 RDW 14.6 Plt Count 281 MPV 10.8 Immature Gran % (Auto) 0.5 H Neut % (Auto) 59.5 Lymph % (Auto) 20.0 [place] % (Auto) 9.6 Eos % (Auto) 9.7 H Baso % (Auto) 0.7 Lymph # (Auto) 1.7 [place] # (Auto) 0.8 Eos # (Auto) 0.8 H Baso # (Auto) 0.1 Abs Immat Gran (auto) 0.04 H Absolute Neuts (auto) 5.0 Absolute Nucleated RBC 0.000 Nucleated RBC % (auto) 0.0 ESR PT INR Sodium Potassium Chloride Carbon Dioxide Anion Gap BUN Creatinine Estim Creat Clear Calc Estimated GFR POC Glucose 115 101 Random Glucose Fasting Glucose Lactic Acid Lactic Acid F/U @ 2Hr Calcium Total Bilirubin Direct Bilirubin AST ALT Alkaline Phosphatase C-Reactive Protein Total Protein Albumin Random Vancomycin COVID-19 ([facility]) COVID-19 [employer] 07/26/21 07/26/21 07/26/21 03:29 07:14 11:23 WBC RBC Hgb Hct MCV MCH MCHC RDW Plt Count MPV Immature Gran % (Auto) Neut % (Auto) Lymph % (Auto) [place] % (Auto) Eos % (Auto) Baso % (Auto) Lymph # (Auto) [place] # (Auto) Eos # (Auto) Baso # (Auto) Abs Immat Gran (auto) Absolute Neuts (auto) Absolute Nucleated RBC Nucleated RBC % (auto) ESR PT INR Sodium 141 Potassium 4.5 Chloride 107 Carbon Dioxide 25 Anion Gap 14 BUN 31 H D Creatinine 1.17 Estim Creat Clear Calc 52.0 Estimated GFR > 60 POC Glucose 75 138 H Random Glucose Fasting Glucose 85 Lactic Acid Lactic Acid F/U @ 2Hr Calcium 8.8 Total Bilirubin 0.3 Direct Bilirubin AST 66 H ALT 46 H Alkaline Phosphatase 112 C-Reactive Protein Total Protein 6.0 L Albumin 3.0 L Random Vancomycin COVID-19 ([facility]) COVID-19 Clin Com 07/26/21 07/26/21 07/27/21 15:38 20:15 05:36 WBC 9.3 RBC 3.76 L Hgb 11.1 L Hct 34.6 L MCV 92.0 MCH 29.5 MCHC 32.1 RDW 14.6 Plt Count 289 MPV 11.1 Immature Gran % (Auto) 0.5 H Neut % (Auto) 59.6 Lymph % (Auto) 18.2 L [place] % (Auto) 9.9 Eos % (Auto) 11.2 H Baso % (Auto) 0.6 Lymph # (Auto) 1.7 [place] # (Auto) 0.9 Eos # (Auto) 1.0 H Baso # (Auto) 0.1 Abs Immat Gran (auto) 0.05 H Absolute Neuts (auto) 5.5 Absolute Nucleated RBC 0.000 Nucleated RBC % (auto) 0.0 ESR PT INR Sodium Potassium Chloride Carbon Dioxide Anion Gap BUN Creatinine Estim Creat Clear Calc Estimated GFR POC Glucose 90 104 Random Glucose Fasting Glucose Lactic Acid Lactic Acid F/U @ 2Hr Calcium Total Bilirubin Direct Bilirubin AST ALT Alkaline Phosphatase C-Reactive Protein Total Protein Albumin Random Vancomycin COVID-19 ([facility]) COVID-19 Clin Com 07/27/21 07/27/21 07/27/21 05:36 07:25 11:05 WBC RBC Hgb Hct MCV MCH MCHC RDW Plt Count MPV Immature Gran % (Auto) Neut % (Auto) Lymph % (Auto) [place] % (Auto) Eos % (Auto) Baso % (Auto) Lymph # (Auto) [place] # (Auto) Eos # (Auto) Baso # (Auto) Abs Immat Gran (auto) Absolute Neuts (auto) Absolute Nucleated RBC Nucleated RBC % (auto) ESR PT INR Sodium 139 Potassium 4.5 Chloride 106 Carbon Dioxide 26 Anion Gap 12 BUN 30 H Creatinine 1.27 Estim Creat Clear Calc 47.9 Estimated GFR 55 POC Glucose 71 76 Random Glucose Fasting Glucose 84 Lactic Acid Lactic Acid F/U @ 2Hr Calcium 8.8 Total Bilirubin 0.3 Direct Bilirubin AST 85 H ALT 67 H Alkaline Phosphatase 128 H C-Reactive Protein Total Protein 6.3 L Albumin 3.2 L Random Vancomycin COVID-19 ([facility]) COVID-19 Clin Com 07/27/21 07/27/21 07/28/21 15:35 21:17 05:45 WBC 8.5 RBC 3.53 L Hgb 10.5 L Hct 32.8 L MCV 92.9 MCH 29.7 MCHC 32.0 RDW 14.9 Plt Count 267 MPV 11.3 Immature Gran % (Auto) 0.4 Neut % (Auto) 59.1 Lymph % (Auto) 19.6 L [place] % (Auto) 10.3 Eos % (Auto) 9.7 H Baso % (Auto) 0.9 Lymph # (Auto) 1.7 [place] # (Auto) 0.9 Eos # (Auto) 0.8 H Baso # (Auto) 0.1 Abs Immat Gran (auto) 0.03 Absolute Neuts (auto) 5.0 Absolute Nucleated RBC 0.000 Nucleated RBC % (auto) 0.0 ESR PT INR Sodium Potassium Chloride Carbon Dioxide Anion Gap BUN Creatinine Estim Creat Clear Calc Estimated GFR POC Glucose 108 134 H Random Glucose Fasting Glucose Lactic Acid Lactic Acid F/U @ 2Hr Calcium Total Bilirubin Direct Bilirubin AST ALT Alkaline Phosphatase C-Reactive Protein Total Protein Albumin Random Vancomycin COVID-19 ([facility]) COVID-19 Clin Com 07/28/21 07/28/21 07/28/21 05:45 05:45 07:32 WBC RBC Hgb Hct MCV MCH MCHC RDW Plt Count MPV Immature Gran % (Auto) Neut % (Auto) Lymph % (Auto) [place] % (Auto) Eos % (Auto) Baso % (Auto) Lymph # (Auto) [place] # (Auto) Eos # (Auto) Baso # (Auto) Abs Immat Gran (auto) Absolute Neuts (auto) Absolute Nucleated RBC Nucleated RBC % (auto) ESR PT 14.4 H INR 1.3 H Sodium 140 Potassium 4.9 Chloride 107 Carbon Dioxide 25 Anion Gap 13 BUN 34 H Creatinine 1.55 H Estim Creat Clear Calc 39.2 Estimated GFR 44 POC Glucose 96 Random Glucose Fasting Glucose 97 Lactic Acid Lactic Acid F/U @ 2Hr Calcium 8.8 Total Bilirubin 0.3 Direct Bilirubin AST 63 H ALT 59 H Alkaline Phosphatase 127 H C-Reactive Protein Total Protein 6.0 L Albumin 3.0 L Random Vancomycin COVID-19 ([facility]) COVID-19 [facility] [facility] 07/28/21 11:12 WBC RBC Hgb Hct MCV MCH MCHC RDW Plt Count MPV Immature Gran % (Auto) Neut % (Auto) Lymph % (Auto) [place] % (Auto) Eos % (Auto) Baso % (Auto) Lymph # (Auto) [place] # (Auto) Eos # (Auto) Baso # (Auto) Abs Immat Gran (auto) Absolute Neuts (auto) Absolute Nucleated RBC Nucleated RBC % (auto) ESR PT INR Sodium Potassium Chloride Carbon Dioxide Anion Gap BUN Creatinine Estim Creat Clear Calc Estimated GFR POC Glucose 94 Random Glucose Fasting Glucose Lactic Acid Lactic Acid F/U @ 2Hr Calcium Total Bilirubin Direct Bilirubin AST ALT Alkaline Phosphatase C-Reactive Protein Total Protein Albumin Random Vancomycin COVID-19 ([facility]) COVID-19 Clin Com Airway Mallampati Class: II TM Dist: >3cm Neck ROM: Full Loose/Missing/Broken Teeth: Yes, Upper and Lower Heart: RRR Lungs: CTA Assessment and Plan Assessment Anesthesia Assessment: Anesthesia Plan Discussed and Chart Reviewed Final Anesthetic Review History of Problems with Anesthesia: No NPO: Yes ASA Class: III Final Preanesthetic Review: Meds/Allgs Chart Reviewed, Consent Obtained/Reviewed and Anes Risks/Benef Reviewed Patient Risk: Intermediate Procedure Risk: Low Anesthetic Plan Anesthetic Plan: GA Disposition: Standard PACU
--- NOTE | 2021-07-28 14:03 | MHC.SHP ---
Pre-Procedural Eval Section A Date of Service: 07/28/21 The patient is an INPATIENT: Yes Changes since office visit: Yes Patient answered all questions The History & Physical has been completed within 30 days and I have reviewed it.: Yes Section B Chief Complaint: osteomyelitis Allergies: Allergies Allergy/AdvReac Type Severity Reaction Status Date / Time No Known Allergies Allergy Mild Verified 06/30/21 16:09 Plan I have reviewed the history and physical and performed a pertinent physical examination on my patient. No changes have occurred unless specified.
[2021-07-28 14:15] LABS: Glucose, Whole Blood 76 mg/dL (60-115)
--- NOTE | 2021-07-28 14:16 | W.PM.OPN ---
Operative Note Operative Note Date of Service: 07/28/21 Narrative: Operative note by [facility] Preoperative diagnosis:1. Nonhealing right foot ulcer 2. osteomyelitis Postoperative diagnosis: same Procedure: right transmetatarsal amputation Surgeon:Juan Oscar M.D. Gift Consultant: kenna Anesthesia: general Specimens: 1 Drains: none Estimated blood loss: minimal Indications: 76-year-old diabetic gentleman with prior right toe amputations. He has a known history of diabetes and presented with recurrent osteomyelitis that has been progressing. He now presents for transmetatarsal amputation. The patient has signed the informed consent after reviewing risks, complications, benefits, and alternatives previously discussed with the patient. The patient was given the opportunity to ask any additional questions or voice any concerns. All questions were answered to the patient's satisfaction. Procedure in detail: Patient was brought to the operating room prior to which a time-out was called for patient identification and site verification. Right foot was prepped and draped in standard surgical fashion. Curvilinear incision was made over the metatarsal heads. In a posterior flap was created. Using power saw we cut across all the metatarsal bones. Using electrocautery we created the posterior flap and this was dissected clear. Once the foot was off this was trans transected at the most distal portion and passed off the table as specimen. We then trimmed the flap. as we brought this up we recognize that it was just a little bit tense. The bones were further resected back using power saw. The sharp edges were filed down. Once this was done we then brought the flap and this came together quite nicely. Wound was thoroughly irrigated out. Deep layer was reapproximated using 2 0 Polysorb. Skin was closed with a 2 0 nylon in a mattress fashion in addition to rob. Xeroform and a sterile dressing were applied. At the end of the case sponge instrument counts were correct. Patient was brought back to recovery with stable vitals. This note is constructed using voice recognition software. While every effort has been made to ensure accuracy, etl software engineer errors may have been included. Thank you for allowing me to participate in the care of your patient. Yours sincerely, Juan Oscar MD, FACS, R.P.V.I.
--- NOTE | 2021-07-28 14:49 | HO.PM.IMPN ---
Subjective Subjective Date of Service: 07/28/21 Interval History: No acute issues overnight. Denies pain. Review of Systems Denies chest pain Denies nausea vomiting diarrhea Denies shortness of breath Physical Exam Vital Signs: Vital Signs: Last Vital Signs Temp 97.1 F 07/28/21 14:33 Pulse 52 07/28/21 14:33 Resp 18 07/28/21 14:33 BP 143/56 H 07/28/21 14:33 Pulse Ox 100 07/28/21 14:33 BMI result Body Mass Index 24.7 Const: Other: No acute issues overnight Resp: Other: Clear to auscultation bilaterally no rales rhonchi wheezes Cardio: Other: No S4; positive S1-S2; no S3 murmurs rubs or gallops GI: Other: Soft nontender nondistended normoactive bowel sounds Extrem: Other: Mild edema of right foot with dorsal erythema/warmth; 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 Two small ulcers on the plantar aspect dry no active drainage(essentially unchanged since admission) Objective Data Active Medications Acetaminophen (Acetaminophen 325 Mg Tablet) 650 mg PO Q6H PRN PRN Reason: Pain, Mild (Pain Scale 1-3) Albuterol Sulfate (Albuterol Sulfate (0.083%) 2.5 Mg/3 Ml Vial.Neb) 2.5 mg INHALE ONCE PRN PRN Reason: Wheezing Amiodarone HCl (Amiodarone Hcl 200 Mg Tablet) 200 mg PO DAILY [facility] Last Admin: 07/28/21 09:38 Dose: 200 mg Documented by: SANTINO Amlodipine Besylate (Amlodipine Besylate 10 Mg Tablet) 10 mg PO DAILY [facility]; Protocol Last Admin: 07/28/21 09:36 Dose: 10 mg Documented by: SANTINO Atorvastatin Calcium (Atorvastatin Calcium 10 Mg Tablet) 10 mg PO BEDTIME [facility] Last Admin: 07/27/21 20:44 Dose: 10 mg Documented by: DELON Clopidogrel Bisulfate (Clopidogrel Bisulfate 75 Mg Tablet) 75 mg PO DAILY [facility] Last Admin: 07/28/21 09:37 Dose: Not Given Documented by: SANTINO Non-Admin Reason: Physician Held Med Docusate Sodium (Docusate Sodium 100 Mg Capsule) 100 mg PO DAILY PRN PRN Reason: Constipation Fentanyl (Fentanyl Citrate/Pf 100 Mcg/2 Ml Vial) 25 mcg IVPUSH Q5M PRN; Protocol PRN Reason: Pain, Moderate (Pain Scale 4-6 Meropenem 1 gm/ Sodium (Chloride) 100 mls @ 200 mls/hr IV Q12H [facility] Last Infusion: 07/28/21 12:13 Dose: 0 mls/hr Documented by: SANTINO Daptomycin 460 mg/ Sodium (Chloride) 59.2 mls @ 100 mls/hr IV Q24H [facility] Last Infusion: 07/27/21 16:22 Dose: 0 mls/hr Documented by: PABLITO Lactated Ringer's (Lr) 1,000 mls @ 50 mls/hr IVCONT .Q20H [facility] Last Admin: 07/28/21 12:42 Dose: 50 mls/hr Documented by: DAMIÁN Insulin Human Lispro (Insulin Lispro 100 Unit/Ml 3 Ml Vial) 0 unit SUBCUT QIDACHS [facility]; Protocol Last Admin: 07/28/21 11:43 Dose: Not Given Documented by: SANTINO Non-Admin Reason: No Insulin Coverage Levothyroxine Sodium (Levothyroxine Sodium 25 Mcg Tablet) 25 mcg PO DAILY@0600 [facility] Last Admin: 07/28/21 05:10 Dose: 25 mcg Documented by: DELON Metoprolol Succinate (Metoprolol Succinate Er 100 Mg Tab.Er.24h) 100 mg PO DAILY [facility]; Protocol Last Admin: 07/28/21 09:36 Dose: Not Given Documented by: SANTINO Non-Admin Reason: Decreased Heart Rate Mirtazapine (Mirtazapine 7.5 Mg Tablet) 7.5 mg PO BEDTIME [facility] Last Admin: 07/27/21 20:44 Dose: 7.5 mg Documented by: DELON Ondansetron HCl (Ondansetron Hcl 4 Mg/2 Ml Vial) 4 mg IVPUSH Q8H PRN PRN Reason: Nausea and Vomiting Ondansetron HCl (Ondansetron Hcl 4 Mg/2 Ml Vial) 4 mg IVPUSH ONCE PRN PRN Reason: Nausea and Vomiting Oxycodone HCl (Oxycodone Hcl Immed Release 5 Mg Tablet) 5 mg PO ONCE PRN PRN Reason: Pain, Severe (Pain Scale 7-10) Sodium Chloride (0.9 % Sodium Chloride Flush 3 Ml Syringe) 3 ml IVFLUSH QSHIFT [facility] Last Admin: 07/28/21 09:34 Dose: 3 ml Documented by: SANTINO Timolol Maleate (Timolol Maleate 0.5 % [place] 5 Ml Drbtl) 1 drop EYE-LEFT DAILY [facility] Last Admin: 07/28/21 09:34 Dose: 1 drop Documented by: SANTINO Vitamin D (Cholecalciferol (Vitamin D3) 25 Mcg Tablet) 25 mcg PO DAILY [facility] Last Admin: 07/28/21 09:35 Dose: 25 mcg Documented by: SANTINO Labs CBC & Chem 7: 07/28/21 05:45 07/28/21 05:45 Labs: Laboratory Results - last 24 hr 07/27/21 07/27/21 07/28/21 15:35 21:17 05:45 MCV 92.9 MCH 29.7 MCHC 32.0 RDW 14.9 Plt Count 267 MPV 11.3 Immature Gran % (Auto) 0.4 Neut % (Auto) 59.1 Lymph % (Auto) 19.6 L [place] % (Auto) 10.3 Eos % (Auto) 9.7 H Baso % (Auto) 0.9 Lymph # (Auto) 1.7 [place] # (Auto) 0.9 Eos # (Auto) 0.8 H Baso # (Auto) 0.1 Abs Immat Gran (auto) 0.03 Absolute Neuts (auto) 5.0 Absolute Nucleated RBC 0.000 Nucleated RBC % (auto) 0.0 PT INR Anion Gap Estim Creat Clear Calc Estimated GFR POC Glucose 108 134 H Fasting Glucose Calcium Total Bilirubin AST ALT Alkaline Phosphatase Total Protein Albumin 07/28/21 07/28/21 07/28/21 05:45 05:45 07:32 MCV MCH MCHC RDW Plt Count MPV Immature Gran % (Auto) Neut % (Auto) Lymph % (Auto) [place] % (Auto) Eos % (Auto) Baso % (Auto) Lymph # (Auto) [place] # (Auto) Eos # (Auto) Baso # (Auto) Abs Immat Gran (auto) Absolute Neuts (auto) Absolute Nucleated RBC Nucleated RBC % (auto) PT 14.4 H INR 1.3 H Anion Gap 13 Estim Creat Clear Calc 39.2 Estimated GFR 44 POC Glucose 96 Fasting Glucose 97 Calcium 8.8 Total Bilirubin 0.3 AST 63 H ALT 59 H Alkaline Phosphatase 127 H Total Protein 6.0 L Albumin 3.0 L 07/28/21 07/28/21 11:12 14:11 MCV MCH MCHC RDW Plt Count MPV Immature Gran % (Auto) Neut % (Auto) Lymph % (Auto) [place] % (Auto) Eos % (Auto) Baso % (Auto) Lymph # (Auto) [place] # (Auto) Eos # (Auto) Baso # (Auto) Abs Immat Gran (auto) Absolute Neuts (auto) Absolute Nucleated RBC Nucleated RBC % (auto) PT INR Anion Gap Estim Creat Clear Calc Estimated GFR POC Glucose 94 76 Fasting Glucose Calcium Total Bilirubin AST ALT Alkaline Phosphatase Total Protein Albumin Assessment and Plan (1) Osteomyelitis of foot: Status: Acute (2) Type 2 diabetes mellitus with peripheral artery disease: Status: Acute Plan 76-year-old male history of diabetic neuropathy status post osteomyelitis as well as amputated toes x2 presents with worsening osteomyelitis as documented by MRI 1.Osteomyelitis (right foot) -continue meropenem(8); daptomycin (7) -post op course as per vascular 2. DMII -continue sliding scale insulin adjust as indicated 3. Paroxysmal AFib -Acceptable rate control on current therapies -continue Eloquist as ordered 4. CAD/ PVD -continue Plavix/Eloquist -hold if surgical intervention indicated DVT prophylaxis: Eliquis Full Code Patient will likely require 1-2 midnights going forward for IV antibiotics; plan dictated by response to surgery Quality Stroke Does the patient have a stroke diagnosis?: No VTE Prior VTE?: No VTE Risk Level:: Medical - moderate - high VTE Device Contraindication: Treatment Not Indicated VTE Drug Contraindication: N/A - Med Ordered
[2021-07-28] MEDS: SODIUM CHLORIDE 0.9% IV (15:32)
[2021-07-28] MEDS: DAPTOMYCIN IV (15:32)
[2021-07-28 16:12] LABS: Glucose, Whole Blood 115 mg/dL (60-115)
[2021-07-28 19:54] LABS: Glucose, Whole Blood 101 mg/dL (60-115)
[2021-07-28] MEDS: Mirtazapine 7.5 MG TABLET PO (20:22)
[2021-07-28] MEDS: Atorvastatin Calcium 10 MG TABLET PO (20:22)
[2021-07-28] MEDS: oxyCODONE HCl Immed Release 5 MG TABLET PO (22:57)
[2021-07-29] MEDS: oxyCODONE HCl Immed Release 5 MG TABLET PO (00:58)
[2021-07-29] MEDS: Acetaminophen 325 MG TABLET 650 MG PO ×2 (00:59→16:40)
[2021-07-29 04:00] VITALS: BP 168/77; PULSE 56; RESP 18; TEMP 36.9; O2SAT 100
[2021-07-29 05:22] LABS: MANUAL DIFF FLAG NO
[2021-07-29 05:27] LABS: Basophils Absolute Auto 0.1 X10*3/uL (0.0-0.2); Basophils Percent Auto 0.5 % (0-2); Eosinophils Absolute Auto 0.4 X10*3/uL (0.0-0.4); Eosinophils Percent Auto 4.3 % (0-4); Hematocrit 30.6 % (42.0-52.0); Hemoglobin 10.2 g/dl (14.0-18.0); Imm Gran Abs Auto 0.03 X10*3/uL (0.00-0.03); Imm Gran Pct Auto 0.3 % (0.0-0.4); Lymphocytes Absolute Auto 1.1 X10*3/uL (1.2-4.9); Lymphocytes Percent Auto 11.2 % (20-40); Mean Corpuscular HGB Conc 33.3 g/dl (31.0-36.0); Mean Corpuscular Hemoglobin 30.5 pg (27.0-33.0); Mean Corpuscular Volume 91.6 fL (80.0-98.0); Mean Platelet Volume 11.3 fL (9.4-12.4); Monocytes Absolute Auto 1.2 X10*3/uL (0.1-1.2); Monocytes Percent Auto 12.5 % (2-11); Neutrophils Percent Auto 71.2 % (45-73); Platelet Count 225 X10*3/uL (160-400); Red Blood Count 3.34 X10*6/uL (4.60-5.80); Red Cell Distribution Width 14.6 % (11.0-16.0); White Blood Count 9.8 X10*3/uL (4.8-10.8)
[2021-07-29 05:45] LABS: Alanine Aminotransferase 58 U/L (0-40); Alkaline Phosphatase 107 U/L (39-117); Anion Gap 12 (12-20); Aspartate Amino Transferase 64 U/L (5-37); Bilirubin Total 0.4 mg/dL (0.0-1.0); Blood Urea Nitrogen 27 mg/dL (9-16); Calcium 8.9 mg/dL (8.4-10.2); Carbon Dioxide 26 mmol/L (22-29); Chloride 104 mmol/L (96-108); Creatinine Clr Calc Pharmacy 48.3; Estimated Glomerular Filt Rate 55; Glucose Fasting 109 mg/dL (60-99); Potassium 4.6 mmol/L (3.3-5.1); Sodium 137 mmol/L (135-145); Total Protein 5.9 g/dL (6.5-8.0)
[2021-07-29] MEDS: Levothyroxine Sodium 25 MCG TABLET PO (05:55)
[2021-07-29 07:13] VITALS: BP 159/70; PULSE 55; RESP 18; TEMP 36.8; O2SAT 99
[2021-07-29 07:21] LABS: Glucose, Whole Blood 99 mg/dL (60-115)
[2021-07-29] MEDS: timoloL maleate 0.5 % Oph Sol 5 ML DRBTL 1 DROP EYE-LEFT (09:07)
[2021-07-29] MEDS: Clopidogrel Bisulfate 75 MG TABLET PO (09:08)
[2021-07-29] MEDS: Cholecalciferol (Vitamin D3) 25 MCG TABLET PO (09:08)
[2021-07-29] MEDS: Amiodarone HCL 200 MG TABLET PO (09:08)
[2021-07-29] MEDS: amLODIPine Besylate 10 MG TABLET PO (09:09)
[2021-07-29] MEDS: Metoprolol Succinate ER 100 MG TAB.ER.24H PO (09:09)
--- NOTE | 2021-07-29 10:09 | HO.VASCPN ---
Subjective Subjective Date of Service: 07/29/21 Patient reports: no new complaints and feels better Interval history: Patient is postop day 1 status post transmetatarsal amputation. Reports that he is doing extremely well. Pain is well controlled. No events overnight. Patient is anxious to be discharged. Physical Exam Vital Signs: Vital Signs: Last Vital Signs Temp 98.3 F 07/29/21 07:13 Pulse 55 07/29/21 07:13 Resp 18 07/29/21 07:13 BP 159/70 H 07/29/21 07:13 Pulse Ox 99 07/29/21 07:13 BMI result Body Mass Index 24.7 Const: General: cooperative, healthy appearing and no acute distress Orientation/consciousness: oriented to person, oriented to place and oriented to time HEENT: Head: Yes normal to inspection Neck: Carotids: no bruits Chest: Chest palpation & inspection: normal inspection of the chest Resp: Effort & Inspection: normal respiratory effort and able to speak in complete sentences Auscultation: clear to auscultation bilaterally Cardio: Rate: regular rate Heart sounds: S1 normal heart sound present and S2 normal heart sound present GI: Inspection: Yes normal to inspection Skin: Other: Transmetatarsal amputation site dressing clean dry intact General skin exam: no rashes or lesions noted Wounds: no wounds Neuro: General: oriented to person, oriented to place, oriented to time and CN's II-XI intact bilaterally Extrem: General: Yes normal to inspection, Yes full ROM and Yes no clubbing, cyanosis or edema Psych: Appearance: grossly normal and well kempt Speech and movement: Normal speech and movement present Affect: normal affect Progress Note: A&P Assessment and plan (1) Osteomyelitis of foot: Status: Acute Plan Patient is doing well status post transmetatarsal amputation. Will plan for dressing change for tomorrow. Would hope this is healing well. If that is the case I do believe I have resected all the affected bone. Would not suspect need for long-term antibiotics. Will follow-up tomorrow. Thank you for allowing us to assist in his care. Fall Risk Details Current Medications: Current Medications Acetaminophen (Acetaminophen 325 Mg Tablet) 650 mg PO Q6H PRN PRN Reason: Pain, Mild (Pain Scale 1-3) Last Admin: 07/29/21 00:59 Dose: 650 mg Documented by: Albuterol Sulfate (Albuterol Sulfate (0.083%) 2.5 Mg/3 Ml Vial.Neb) 2.5 mg INHALE ONCE PRN PRN Reason: Wheezing Amiodarone HCl (Amiodarone Hcl 200 Mg Tablet) 200 mg PO DAILY [facility] Last Admin: 07/29/21 09:08 Dose: 200 mg Documented by: Amlodipine Besylate (Amlodipine Besylate 10 Mg Tablet) 10 mg PO DAILY [facility]; Protocol Last Admin: 07/29/21 09:09 Dose: 10 mg Documented by: Atorvastatin Calcium (Atorvastatin Calcium 10 Mg Tablet) 10 mg PO BEDTIME [facility] Last Admin: 07/28/21 20:22 Dose: 10 mg Documented by: Clopidogrel Bisulfate (Clopidogrel Bisulfate 75 Mg Tablet) 75 mg PO DAILY [facility] Last Admin: 07/29/21 09:08 Dose: 75 mg Documented by: Docusate Sodium (Docusate Sodium 100 Mg Capsule) 100 mg PO DAILY PRN PRN Reason: Constipation Fentanyl (Fentanyl Citrate/Pf 100 Mcg/2 Ml Vial) 25 mcg IVPUSH Q5M PRN; Protocol PRN Reason: Pain, Moderate (Pain Scale 4-6 Daptomycin 460 mg/ Sodium (Chloride) 59.2 mls @ 100 mls/hr IV Q24H [facility] Last Infusion: 07/28/21 16:17 Dose: Infused Documented by: Lactated Ringer's (Lr) 1,000 mls @ 50 mls/hr IVCONT .Q20H [facility] Last Admin: 07/28/21 15:33 Dose: 50 mls/hr Documented by: Insulin Human Lispro (Insulin Lispro 100 Unit/Ml 3 Ml Vial) 0 unit SUBCUT QIDACHS [facility]; Protocol Last Admin: 07/29/21 07:30 Dose: Not Given Documented by: Levothyroxine Sodium (Levothyroxine Sodium 25 Mcg Tablet) 25 mcg PO DAILY@0600 [facility] Last Admin: 07/29/21 05:55 Dose: 25 mcg Documented by: Metoprolol Succinate (Metoprolol Succinate Er 100 Mg Tab.Er.24h) 100 mg PO DAILY [facility]; Protocol Last Admin: 07/29/21 09:09 Dose: 100 mg Documented by: Mirtazapine (Mirtazapine 7.5 Mg Tablet) 7.5 mg PO BEDTIME [facility] Last Admin: 07/28/21 20:22 Dose: 7.5 mg Documented by: Ondansetron HCl (Ondansetron Hcl 4 Mg/2 Ml Vial) 4 mg IVPUSH Q8H PRN PRN Reason: Nausea and Vomiting Ondansetron HCl (Ondansetron Hcl 4 Mg/2 Ml Vial) 4 mg IVPUSH ONCE PRN PRN Reason: Nausea and Vomiting Sodium Chloride (0.9 % Sodium Chloride Flush 3 Ml Syringe) 3 ml IVFLUSH QSHIFT [facility] Last Admin: 07/29/21 09:07 Dose: Not Given Documented by: Timolol Maleate (Timolol Maleate 0.5 % [place] 5 Ml Drbtl) 1 drop EYE-LEFT DAILY [facility] Last Admin: 07/29/21 09:07 Dose: 1 drop Documented by: Vitamin D (Cholecalciferol (Vitamin D3) 25 Mcg Tablet) 25 mcg PO DAILY [facility] Last Admin: 07/29/21 09:08 Dose: 25 mcg Documented by: Time Spent With Patient Time: Total time spent is greater than 50% in coordination of care (as documented) at patient's floor/unit and/or counseling patient: Procedures Date of Service Date of Service: 07/29/21 Quality Stroke Does the patient have a stroke diagnosis?: No VTE Prior VTE?: No VTE Risk Level:: Medical - moderate - high VTE Device Contraindication: Treatment Not Indicated VTE Drug Contraindication: N/A - Med Ordered
--- NOTE | 2021-07-29 10:12 | HO.POSTANES ---
Post Anesthesia Evaluation Post Anesthesia Evaluation Vital Signs: Vital Signs Temp Pulse Resp BP Pulse Ox 07/29/21 07:13 98.3 F 55 18 159/70 H 99 07/29/21 04:00 98.4 F 56 18 168/77 H 100 07/28/21 23:08 98.7 F 53 18 164/82 H 100 Anesthesia: General Mental Status: Awake Pain Control: Satisfactory Nausea/Vomiting: None Hydration: Adequate Anesthesia-Related Issues: No Anes. Related Issues
[2021-07-29] MEDS: Lactated Ringers 1,000 ML 50 ML IVCONT (10:46)
[2021-07-29 11:17] VITALS: BP 178/72; PULSE 54; RESP 18; TEMP 37.2; O2SAT 100
[2021-07-29 11:20] LABS: Glucose, Whole Blood 107 mg/dL (60-115)
--- NOTE | 2021-07-29 12:48 | MHC.CM.PN ---
Per ROUNDS discussion, Patient is not yet medically cleared for dc (s/p TMA, IV Dapto). Home with services is the goal for dc and CM will continue to follow.
[2021-07-29 15:02] VITALS: BP 184/73; PULSE 61; RESP 18; TEMP 37.1; O2SAT 92
--- NOTE | 2021-07-29 15:35 | HO.PM.IMPN ---
Subjective Subjective Date of Service: 07/29/21 Interval History: status post right transmetatarsal amputation, denies pain, tolerating diet, no nausea, no vomiting, no other acute issues overnight. Review of Systems Review of Systems: Yes all other systems are reviewed and are negative Physical Exam Vital Signs: Vital Signs: Last Vital Signs Temp 98.7 F 07/29/21 15:02 Pulse 61 07/29/21 15:02 Resp 18 07/29/21 15:02 BP 184/73 H 07/29/21 15:02 Pulse Ox 92 07/29/21 15:02 BMI result Body Mass Index 24.7 Const: Other: General resting comfortably in no acute distress. Neck supple no JVD. CVS regular rate rhythm, Respiratory lungs clear to auscultation, no respiratory distress Gastrointestinal abdomen soft, nontender, bowel sounds audible Extremities rt foot dressing in place Neuro nonfocal Skin no rash Objective Data Active Medications Acetaminophen (Acetaminophen 325 Mg Tablet) 650 mg PO Q6H PRN PRN Reason: Pain, Mild (Pain Scale 1-3) Last Admin: 07/29/21 00:59 Dose: 650 mg Documented by: RANCHO Albuterol Sulfate (Albuterol Sulfate (0.083%) 2.5 Mg/3 Ml Vial.Neb) 2.5 mg INHALE ONCE PRN PRN Reason: Wheezing Amiodarone HCl (Amiodarone Hcl 200 Mg Tablet) 200 mg PO DAILY [facility] Last Admin: 07/29/21 09:08 Dose: 200 mg Documented by: SANTINO Amlodipine Besylate (Amlodipine Besylate 10 Mg Tablet) 10 mg PO DAILY [facility]; Protocol Last Admin: 07/29/21 09:09 Dose: 10 mg Documented by: SANTINO Atorvastatin Calcium (Atorvastatin Calcium 10 Mg Tablet) 10 mg PO BEDTIME [facility] Last Admin: 07/28/21 20:22 Dose: 10 mg Documented by: VALERIE Clopidogrel Bisulfate (Clopidogrel Bisulfate 75 Mg Tablet) 75 mg PO DAILY [facility] Last Admin: 07/29/21 09:08 Dose: 75 mg Documented by: SANTINO Docusate Sodium (Docusate Sodium 100 Mg Capsule) 100 mg PO DAILY PRN PRN Reason: Constipation Fentanyl (Fentanyl Citrate/Pf 100 Mcg/2 Ml Vial) 25 mcg IVPUSH Q5M PRN; Protocol PRN Reason: Pain, Moderate (Pain Scale 4-6 Insulin Human Lispro (Insulin Lispro 100 Unit/Ml 3 Ml Vial) 0 unit SUBCUT QIDACHS [facility]; Protocol Last Admin: 07/29/21 12:21 Dose: Not Given Documented by: SANTINO Non-Admin Reason: No Insulin Coverage Levothyroxine Sodium (Levothyroxine Sodium 25 Mcg Tablet) 25 mcg PO DAILY@0600 [facility] Last Admin: 07/29/21 05:55 Dose: 25 mcg Documented by: RANCHO Metoprolol Succinate (Metoprolol Succinate Er 100 Mg Tab.Er.24h) 100 mg PO DAILY [facility]; Protocol Last Admin: 07/29/21 09:09 Dose: 100 mg Documented by: SANTINO Mirtazapine (Mirtazapine 7.5 Mg Tablet) 7.5 mg PO BEDTIME [facility] Last Admin: 07/28/21 20:22 Dose: 7.5 mg Documented by: VALERIE Ondansetron HCl (Ondansetron Hcl 4 Mg/2 Ml Vial) 4 mg IVPUSH Q8H PRN PRN Reason: Nausea and Vomiting Ondansetron HCl (Ondansetron Hcl 4 Mg/2 Ml Vial) 4 mg IVPUSH ONCE PRN PRN Reason: Nausea and Vomiting Sodium Chloride (0.9 % Sodium Chloride Flush 3 Ml Syringe) 3 ml IVFLUSH QSHIFT [facility] Last Admin: 07/29/21 09:07 Dose: Not Given Documented by: SANTINO Non-Admin Reason: IV Running Timolol Maleate (Timolol Maleate 0.5 % [place] 5 Ml Drbtl) 1 drop EYE-LEFT DAILY [facility] Last Admin: 07/29/21 09:07 Dose: 1 drop Documented by: SANTINO Vitamin D (Cholecalciferol (Vitamin D3) 25 Mcg Tablet) 25 mcg PO DAILY [facility] Last Admin: 07/29/21 09:08 Dose: 25 mcg Documented by: SANTINO Labs CBC & Chem 7: 07/29/21 05:12 07/29/21 05:12 Labs: Laboratory Results - last 24 hr 07/28/21 07/28/21 07/29/21 15:26 19:43 05:12 MCV 91.6 MCH 30.5 MCHC 33.3 RDW 14.6 Plt Count 225 MPV 11.3 Immature Gran % (Auto) 0.3 Neut % (Auto) 71.2 Lymph % (Auto) 11.2 L [place] % (Auto) 12.5 H Eos % (Auto) 4.3 H Baso % (Auto) 0.5 Lymph # (Auto) 1.1 L [place] # (Auto) 1.2 Eos # (Auto) 0.4 Baso # (Auto) 0.1 Abs Immat Gran (auto) 0.03 Absolute Neuts (auto) 7.0 Absolute Nucleated RBC 0.000 Nucleated RBC % (auto) 0.0 Anion Gap Estim Creat Clear Calc Estimated GFR POC Glucose 115 101 Fasting Glucose Calcium Total Bilirubin AST ALT Alkaline Phosphatase Total Protein Albumin 07/29/21 07/29/21 07/29/21 05:12 07:03 11:13 MCV MCH MCHC RDW Plt Count MPV Immature Gran % (Auto) Neut % (Auto) Lymph % (Auto) [place] % (Auto) Eos % (Auto) Baso % (Auto) Lymph # (Auto) [place] # (Auto) Eos # (Auto) Baso # (Auto) Abs Immat Gran (auto) Absolute Neuts (auto) Absolute Nucleated RBC Nucleated RBC % (auto) Anion Gap 12 Estim Creat Clear Calc 48.3 Estimated GFR 55 POC Glucose 99 107 Fasting Glucose 109 H Calcium 8.9 Total Bilirubin 0.4 AST 64 H ALT 58 H Alkaline Phosphatase 107 Total Protein 5.9 L Albumin 3.0 L Assessment and Plan (1) Osteomyelitis of foot: Status: Acute (2) Type 2 diabetes mellitus with peripheral artery disease: Status: Acute Plan 76-year-old male history of diabetic neuropathy status post osteomyelitis as well as amputated toes x2 presents with worsening osteomyelitis as documented by MRI 1.Osteomyelitis (right foot) - status post right TMA POD 1 feeling good no pain on iv meropenem and daptomycin 8 on all infected bone removed by vascular surgery therefore will DC IV antibiotic and placed on by mouth doxycycline for [address] Oscar will change dressing tomorrow continue analgesics 2. DMII - blood sugars stable,continue sliding scale insulin , resume home medication upon discharge 3. Paroxysmal AFib -Acceptable rate control on amiodarone and metoprolol, Eliquis on hold due to surgery 4. CAD/ PVD -continue Plavix, will discuss with vascular surgery when to resume Eliquis DVT prophylaxis: Eliquis Full Code Patient will need continued inpatient hospitalization due to right transmetatarsal surgery pod #1 need dressing change by vascular surgery in next 24 hours Quality Stroke Does the patient have a stroke diagnosis?: No VTE Prior VTE?: No VTE Risk Level:: Medical - moderate - high VTE Device Contraindication: Treatment Not Indicated VTE Drug Contraindication: N/A - Med Ordered
[2021-07-29] MEDS: 0.9 % Sodium Chloride Flush 3 ML SYRINGE IVFLUSH (16:33)
[2021-07-29 16:35] LABS: Glucose, Whole Blood 105 mg/dL (60-115)
[2021-07-29 19:09] VITALS: BP 148/54; PULSE 96; RESP 18; TEMP 36.9; O2SAT 93
[2021-07-29 19:33] LABS: Glucose, Whole Blood 137 mg/dL (60-115)
[2021-07-29] MEDS: Atorvastatin Calcium 10 MG TABLET PO (21:01)
[2021-07-29] MEDS: Mirtazapine 7.5 MG TABLET PO (21:01)
[2021-07-29 23:42] VITALS: BP 150/74; PULSE 55; RESP 20; TEMP 37.2; O2SAT 93
[2021-07-30] MEDS: 0.9 % Sodium Chloride Flush 3 ML SYRINGE IVFLUSH ×4 (01:03→20:43)
[2021-07-30 03:32] VITALS: BP 138/66; PULSE 54; RESP 20; TEMP 36.9; O2SAT 96
[2021-07-30] MEDS: Acetaminophen 325 MG TABLET 650 MG PO (03:39)
[2021-07-30] MEDS: Levothyroxine Sodium 25 MCG TABLET PO (05:47)
[2021-07-30 06:06] LABS: MANUAL DIFF FLAG NO
[2021-07-30 06:16] LABS: Basophils Percent Auto 0.4 % (0-2); Eosinophils Absolute Auto 0.4 X10*3/uL (0.0-0.4); Eosinophils Percent Auto 4.6 % (0-4); Hematocrit 28.6 % (42.0-52.0); Hemoglobin 9.4 g/dl (14.0-18.0); Imm Gran Abs Auto 0.04 X10*3/uL (0.00-0.03); Imm Gran Pct Auto 0.4 % (0.0-0.4); Lymphocytes Absolute Auto 1.2 X10*3/uL (1.2-4.9); Lymphocytes Percent Auto 12.9 % (20-40); Mean Corpuscular HGB Conc 32.9 g/dl (31.0-36.0); Mean Corpuscular Volume 91.4 fL (80.0-98.0); Mean Platelet Volume 11.3 fL (9.4-12.4); Monocytes Absolute Auto 1.2 X10*3/uL (0.1-1.2); Neutrophils Absolute Auto 6.7 x10*3/uL (2.0-8.3); Neutrophils Percent Auto 69.7 % (45-73); Platelet Count 208 X10*3/uL (160-400); Red Blood Count 3.13 X10*6/uL (4.60-5.80); Red Cell Distribution Width 14.7 % (11.0-16.0); White Blood Count 9.6 X10*3/uL (4.8-10.8)
[2021-07-30 06:36] LABS: Alanine Aminotransferase 56 U/L (0-40); Albumin Level 2.7 g/dL (3.5-5.0); Alkaline Phosphatase 125 U/L (39-117); Anion Gap 13 (12-20); Aspartate Amino Transferase 59 U/L (5-37); Bilirubin Total 0.4 mg/dL (0.0-1.0); Blood Urea Nitrogen 30 mg/dL (9-16); Calcium 8.4 mg/dL (8.4-10.2); Carbon Dioxide 23 mmol/L (22-29); Chloride 105 mmol/L (96-108); Creatinine Clr Calc Pharmacy 48.3; Estimated Glomerular Filt Rate 55; Glucose Fasting 95 mg/dL (60-99); Potassium 4.4 mmol/L (3.3-5.1); Sodium 137 mmol/L (135-145); Total Protein 5.5 g/dL (6.5-8.0)
[2021-07-30 07:34] VITALS: BP 121/53; PULSE 52; RESP 18; TEMP 36.9; O2SAT 96
[2021-07-30 07:43] LABS: Glucose, Whole Blood 78 mg/dL (60-115)
[2021-07-30] MEDS: timoloL maleate 0.5 % Oph Sol 5 ML DRBTL 1 DROP EYE-LEFT (09:31)
[2021-07-30] MEDS: Clopidogrel Bisulfate 75 MG TABLET PO (09:32)
[2021-07-30] MEDS: Amiodarone HCL 200 MG TABLET PO (09:32)
[2021-07-30] MEDS: Cholecalciferol (Vitamin D3) 25 MCG TABLET PO (09:32)
[2021-07-30] MEDS: Metoprolol Succinate ER 100 MG TAB.ER.24H PO (09:32)
[2021-07-30] MEDS: amLODIPine Besylate 10 MG TABLET PO (09:32)
[2021-07-30 11:13] VITALS: BP 121/53; PULSE 96; RESP 20; TEMP 36.9; O2SAT 96
[2021-07-30 11:44] LABS: Glucose, Whole Blood 133 mg/dL (60-115)
--- NOTE | 2021-07-30 13:33 | HO.VASCPN ---
Subjective Subjective Date of Service: 07/30/21 Patient reports: no new complaints and feels better Interval history: Patient seen and examined. No significant events overnight. Reports that his leg feels significantly better after amputation. He has had no interval issues. Now for dressing change. Physical Exam Vital Signs: Vital Signs: Last Vital Signs Temp 98.4 F 07/30/21 11:13 Pulse 96 07/30/21 11:13 Resp 20 07/30/21 11:13 BP 121/53 L 07/30/21 11:13 Pulse Ox 96 07/30/21 11:13 BMI result Body Mass Index 24.7 Const: General: cooperative, healthy appearing and no acute distress Orientation/consciousness: oriented to person, oriented to place and oriented to time HEENT: Head: Yes normal to inspection Neck: Carotids: no bruits Chest: Chest palpation & inspection: normal inspection of the chest Resp: Effort & Inspection: normal respiratory effort and able to speak in complete sentences Auscultation: clear to auscultation bilaterally Cardio: Rate: regular rate Heart sounds: S1 normal heart sound present and S2 normal heart sound present GI: Inspection: Yes normal to inspection Skin: General skin exam: no rashes or lesions noted Wounds: amputation site (Incision line healing well, no erythema) Neuro: General: oriented to person, oriented to place, oriented to time and CN's II-XI intact bilaterally Extrem: General: Yes normal to inspection, Yes full ROM and Yes no clubbing, cyanosis or edema Psych: Appearance: grossly normal and well kempt Speech and movement: Normal speech and movement present Affect: normal affect Progress Note: A&P Assessment and plan (1) Status post transmetatarsal amputation of foot: Status: Acute Assessment and Plan: In short patient is doing well status post transmetatarsal amputation. He is stable from my perspective for discharge. Dressing cares were written in discharge summary. In addition he can follow up with me in approximately 2 weeks time for suture and staple removal. Thank you for allowing us to assist in his care. If there are any questions or concerns please do not hesitate to contact us. Fall Risk Details Current Medications: Current Medications Acetaminophen (Acetaminophen 325 Mg Tablet) 650 mg PO Q6H PRN PRN Reason: Pain, Mild (Pain Scale 1-3) Last Admin: 07/30/21 03:39 Dose: 650 mg Documented by: Albuterol Sulfate (Albuterol Sulfate (0.083%) 2.5 Mg/3 Ml Vial.Neb) 2.5 mg INHALE ONCE PRN PRN Reason: Wheezing Amiodarone HCl (Amiodarone Hcl 200 Mg Tablet) 200 mg PO DAILY [facility] Last Admin: 07/30/21 09:32 Dose: 200 mg Documented by: Amlodipine Besylate (Amlodipine Besylate 10 Mg Tablet) 10 mg PO DAILY [facility]; Protocol Last Admin: 07/30/21 09:32 Dose: 10 mg Documented by: Atorvastatin Calcium (Atorvastatin Calcium 10 Mg Tablet) 10 mg PO BEDTIME [facility] Last Admin: 07/29/21 21:01 Dose: 10 mg Documented by: Clopidogrel Bisulfate (Clopidogrel Bisulfate 75 Mg Tablet) 75 mg PO DAILY [facility] Last Admin: 07/30/21 09:32 Dose: 75 mg Documented by: Docusate Sodium (Docusate Sodium 100 Mg Capsule) 100 mg PO DAILY PRN PRN Reason: Constipation Doxycycline Hyclate (Doxycycline Hyclate 100 Mg Tablet) 100 mg PO Q12H [facility] Last Admin: 07/30/21 03:32 Dose: 100 mg Documented by: Fentanyl (Fentanyl Citrate/Pf 100 Mcg/2 Ml Vial) 25 mcg IVPUSH Q5M PRN; Protocol PRN Reason: Pain, Moderate (Pain Scale 4-6 Insulin Human Lispro (Insulin Lispro 100 Unit/Ml 3 Ml Vial) 0 unit SUBCUT QIDACHS [facility]; Protocol Last Admin: 07/30/21 11:49 Dose: Not Given Documented by: Levothyroxine Sodium (Levothyroxine Sodium 25 Mcg Tablet) 25 mcg PO DAILY@0600 [facility] Last Admin: 07/30/21 05:47 Dose: 25 mcg Documented by: Metoprolol Succinate (Metoprolol Succinate Er 100 Mg Tab.Er.24h) 100 mg PO DAILY [facility]; Protocol Last Admin: 07/30/21 09:32 Dose: 100 mg Documented by: Mirtazapine (Mirtazapine 7.5 Mg Tablet) 7.5 mg PO BEDTIME [facility] Last Admin: 07/29/21 21:01 Dose: 7.5 mg Documented by: Ondansetron HCl (Ondansetron Hcl 4 Mg/2 Ml Vial) 4 mg IVPUSH Q8H PRN PRN Reason: Nausea and Vomiting Ondansetron HCl (Ondansetron Hcl 4 Mg/2 Ml Vial) 4 mg IVPUSH ONCE PRN PRN Reason: Nausea and Vomiting Sodium Chloride (0.9 % Sodium Chloride Flush 3 Ml Syringe) 3 ml IVFLUSH QSHIFT [facility] Last Admin: 07/30/21 09:32 Dose: 3 ml Documented by: Timolol Maleate (Timolol Maleate 0.5 % Oph [place] 5 Ml Drbtl) 1 drop EYE-LEFT DAILY [facility] Last Admin: 07/30/21 09:31 Dose: 1 drop Documented by: Vitamin D (Cholecalciferol (Vitamin D3) 25 Mcg Tablet) 25 mcg PO DAILY [facility] Last Admin: 07/30/21 09:32 Dose: 25 mcg Documented by: Time Spent With Patient Time: Total time spent is greater than 50% in coordination of care (as documented) at patient's floor/unit and/or counseling patient: Procedures Date of Service Date of Service: 07/30/21 Quality Stroke Does the patient have a stroke diagnosis?: No VTE Prior VTE?: No VTE Risk Level:: Medical - moderate - high VTE Device Contraindication: Treatment Not Indicated VTE Drug Contraindication: N/A - Med Ordered
--- NOTE | 2021-07-30 14:07 | W.MHC.F2F ---
Service Date Service Date: 07/30/21 Encounter Date of encounter: 07/30/21 Reasons for Services Signs and symptoms assessed: Status post left transmetatarsal amputation, knee dressing change Reason for detention: diabetic teaching and medication management Homebound: Leaving the home is medically contraindicated at this time without the asist of a device and/or another person due th the listed conditions above and below. Reason homebound: weakness related to hospital stay Homebound supporting statement: Left transmetatarsal amputation/weakness due to prolonged hospitalization Certification: Based on the above findings, I certify that this patient is confined to the home and needs intermittent detention care, physical therapy and/or speech therapy, or continues to need occupational therapy. The patient is under my care, and I have initiated the establishment of the plan of care. The patient will be followed by a physician who will periodically review the plan of care.
--- NOTE | 2021-07-30 14:09 | PM.DS ---
DS: Providers Provider Date of Service: 07/30/21 Date of admission: 07/21/21 22:23 Primary care physician: Jayla Murrieta MD Consults: 07/21/21 22:20 Consult to Infectious Diseases Routine Consulting Provider: Carmencita Augustine Reason for consultation: Osteomyelitis 07/21/21 22:31 Consult to General Surgery Routine Consulting Provider: Cuco Yu Reason for consultation: Osteomyelitis Has provider been notified: No 07/24/21 12:58 Consult to Vascular Surgery Routine Consulting Provider: Juan Oscar Reason for consultation: osteomyelitis Has provider been notified: No DS: Diagnosis Discharge Diagnosis (1) Status post transmetatarsal amputation of foot: Status: Acute DS: Summary Hospital Course Hospital Course: History of presenting illness Chief Complaint: swollen leg 68-year-old male with past medical history of diabetes, neuropathy, complicated by osteomyelitis with recent amputation in June of the right toe, hypertension, coronary artery disease, PA D, hyperlipidemia, presents to the hospital with complaints of swelling, and redness of right foot at the site of recent amputation.? Patient denies any fever or chills, reports neuropathy therefore does not have any sensation of pain.? Denies any chest pain, no shortness of breath no abdominal pain nausea or vomiting, no diarrhea constipation, no urinary symptoms and no lower extremity edema other than the at the site of the infection.? Patient reports that he noted some clear drainage.? ?in July 09 patient was discharged home on vancomycin and Levaquin and reports compliance. On arrival to the ED patient hemodynamically stable with no significant abnormal vitals? except for bradycardia Labs are significant for? WBC count of 8.7, hemoglobin of 10.2, hematocrit 31.6, ESR 66, creatinine of 1.44 with a baseline around 1.3, lactic acid of 2.6, CRP of 3.7, ?CT of the foot showed bone destruction consistent with osteomyelitis and pathological fracture through the bone of the head and distal shaft of the 3rd metatarsal, this is worse than prior study MRI on 07/01. ?Patient will be admitted for further management. Hospital course 76-year-old male history of diabetic neuropathy status post osteomyelitis as well as amputated? toes x2? presents with worsening osteomyelitis involving 2nd, 3rd and 4th metatarsal bones as documented by MRI foot, Patient admitted to medical floor and started on IV meropenem and daptomycin, subsequently underwent right transmetatarsal amputation by Dr. Oscar post procedure IV antibiotic discontinued since all involved bone was removed, patient was followed closely by Infectious Disease Dr. Augustine she recommend by mouth doxycycline for 1 week, post surgery patient has been doing well with no acute pain he is being discharged home with VNA services for wound care and with offloading boot he has been recommended to follow-up with Dr. Oscar in 2 weeks for suture removal and wound check In regard to type 2 diabetes mellitus patient has been placed back on home medications blood sugar remains stable during hospitalization Paroxysmal AFib had acceptable rate control on? amiodarone and metoprolol, continue Eliquis For coronary artery disease and peripheral vascular disease recommend to continue Plavix Time Spent with Patient Time attestation: Total time spent providing and/or coordinating discharge services: Discharge coordination time: Greater than 30 minutes Quality: Safe Use of Opioids Does Pt have an Active Cancer Diagnosis on the Problem List?: No Quality: Stroke Does the patient have a stroke diagnosis?: No Physical Exam Vital Signs: Vital Signs: Last Vital Signs Temp 98.4 F 07/30/21 11:13 Pulse 96 07/30/21 11:13 Resp 20 07/30/21 11:13 BP 121/53 L 07/30/21 11:13 Pulse Ox 96 07/30/21 11:13 BMI result Body Mass Index 24.7 Const: Other: General resting comfortably in no acute distress.? Neck supple no JVD. CVS? regular rate rhythm, Respiratory lungs clear to auscultation, no respiratory distress Gastrointestinal abdomen soft, nontender, bowel sounds audible Extremities rt foot dressing in place Neuro nonfocal Skin no rash ? DS: Data Data Completed and Pending Completed studies during hospitalization [Text1]: Procedures Detachment at Right 1st Toe, Complete, Open Approach (07/24/20) Dilation of Right Anterior Tibial Artery, Percutaneous Approach (07/24/20) Drainage of Right Foot, Open Approach (07/24/20) Excision of Right Foot Skin, External Approach (11/29/20) Excision of Right Foot Subcutaneous Tissue and Fascia, Open Approach (07/24/20) Insertion of Infusion Device into Superior Vena Cava, Percutaneous Approach (06/30/21) Insertion of Intraluminal Device into Right Internal Iliac Artery, Percutaneous Approach (11/29/20) Pending studies at discharge: Pending at discharge 07/28/21 13:26 Surgical [PTH] Routine Labs on day of discharge: Laboratory Results - last 24 hr 07/29/21 07/29/21 07/30/21 15:06 19:05 05:40 WBC 9.6 RBC 3.13 L Hgb 9.4 L Hct 28.6 L MCV 91.4 MCH 30.0 MCHC 32.9 RDW 14.7 Plt Count 208 MPV 11.3 Immature Gran % (Auto) 0.4 Neut % (Auto) 69.7 Lymph % (Auto) 12.9 L [place] % (Auto) 12.0 H Eos % (Auto) 4.6 H Baso % (Auto) 0.4 Lymph # (Auto) 1.2 [place] # (Auto) 1.2 Eos # (Auto) 0.4 Baso # (Auto) 0.0 Abs Immat Gran (auto) 0.04 H Absolute Neuts (auto) 6.7 Absolute Nucleated RBC 0.000 Nucleated RBC % (auto) 0.0 Sodium Potassium Chloride Carbon Dioxide Anion Gap BUN Creatinine Estim Creat Clear Calc Estimated GFR POC Glucose 105 137 H Fasting Glucose Calcium Total Bilirubin AST ALT Alkaline Phosphatase Total Protein Albumin 07/30/21 07/30/21 07/30/21 05:40 07:40 11:28 WBC RBC Hgb Hct MCV MCH MCHC RDW Plt Count MPV Immature Gran % (Auto) Neut % (Auto) Lymph % (Auto) [place] % (Auto) Eos % (Auto) Baso % (Auto) Lymph # (Auto) [place] # (Auto) Eos # (Auto) Baso # (Auto) Abs Immat Gran (auto) Absolute Neuts (auto) Absolute Nucleated RBC Nucleated RBC % (auto) Sodium 137 Potassium 4.4 Chloride 105 Carbon Dioxide 23 Anion Gap 13 BUN 30 H Creatinine 1.26 Estim Creat Clear Calc 48.3 Estimated GFR 55 POC Glucose 78 133 H Fasting Glucose 95 Calcium 8.4 Total Bilirubin 0.4 AST 59 H ALT 56 H Alkaline Phosphatase 125 H Total Protein 5.5 L Albumin 2.7 L Discharge Plan Discharge Patient Disposition: Home Health Service Discharge Diagnosis: Right foot osteomyelitis status post right TMA Diabetes mellitus type 2 Paroxysmal atrial fibrillation Referrals: Po,Jayla Goodman MD [Primary Care Provider] - 1 Week Discharge Medications: New doxycycline hyclate 100 mg Tablet 100 mg PO Q12H Qty: 12 0RF acetaminophen 325 mg Tablet 650 mg PO Q6H PRN (Reason: Pain, Mild (Pain Scale 1-3)) Qty: 90 0RF Continued amlodipine 10 mg tablet 10 mg PO DAILY 90 Days Qty: 90 3RF metoprolol succinate 100 mg tablet extended release 24 hr 100 mg PO DAILY Qty: 90 2RF Protocol: Hold for SBP/HR < HOLD for SBP < : 90 HOLD for HR < : 60 atorvastatin 10 mg tablet 10 mg PO BEDTIME Qty: 90 0RF mirtazapine 7.5 mg tablet 7.5 mg PO BEDTIME Qty: 30 2RF levothyroxine [Synthroid] 25 mcg tablet 25 mcg PO DAILY 30 Days Qty: 30 2RF metformin 500 mg tablet 500 mg PO BIDWM 0RF cholecalciferol (vitamin D3) 25 mcg (1,000 unit) capsule 25 mcg PO DAILY 0RF Eliquis 5 mg tablet 5 mg PO BID Qty: 60 0RF clopidogrel [Plavix] 75 mg tablet 75 mg PO DAILY Qty: 30 0RF amiodarone 200 mg tablet 200 mg PO DAILY Qty: 30 0RF timolol maleate 0.5 % drops 1 drp ophthalmic-Left DAILY 0RF Discontinued levofloxacin 750 mg Tablet 750 mg PO Q48H Qty: 18 0RF vancomycin in 0.9 % sodium chl 750 mg/150 mL piggyback 750 mg IV Q24H 35 Days Qty: 5250 0RF silver-calcium alginate 3/4 X 12 bandage 1 ea topical DAILY Qty: 60 0RF Rx Instructions: apply to foot wound Saline Wound Wash 0.9 % solution 250 ml miscellaneous DAILY Qty: 1000 3RF Rx Instructions: to cleanse wound (DME) Dermacea Non-Woven 4 X 4 sponge See Rx Instructions .Route Qty: 1200 0RF Rx Instructions: As directed daily (DME) Rolled Gauze 4 X 75 bandage See Rx Instructions .Route Qty: 10 0RF Rx Instructions: As directed daily Discharge Orders: Discharge Order (Routine); Ordered 07/30/21 Ordered By: Zuri Franklin Diet: diabetic diet Activity on Discharge: heel touch Stand Alone Forms: Patient Portal Discharge page Activity Restrictions/Additional Instructions: Wound care upon discharge: xeroform, 4x4 and Kerlix wrap to be changed daily. Please call Dr. Oscar at [phone] for 2 week follow up for suture and staple removal Care Plan Goals: Left transmetatarsal amputation, use left foot boot as ordered and heel touch only Health Concerns: Diabetes/take all home medications as before Plan of Treatment: Call Dr. Oscar for follow-up appointment/call primary care physician for appointment in 1-2 weeks Assessment: As per discharge summary
[2021-07-30 16:08] LABS: Glucose, Whole Blood 121 mg/dL (60-115)
--- NOTE | 2021-07-30 16:29 | MHC.CM.PN ---
NURSE COLON THERAPIST NTOE DISCHARGE FOR TODAY [facility] COULD NOT ACCEPT PATIENT UNTIL NEXT TUESDAY AND OUR [facility]SO COULS NOT ACCEPT , I TRIED IOVER 12 [facility] AGENCYS NO STAGFFING. [facility] AND WILL RETRY TOMORROW WIDER SEARCH , IT IS [facility] MANAGED MEDICARE CONTRACT CALLED TO INFORM HER OF THIS
[2021-07-30 16:35] VITALS: BP 121/53; PULSE 96; O2SAT 96
--- NOTE | 2021-07-30 16:57 | HO.PM.IMPN ---
Subjective Subjective Date of Service: 07/31/21 Interval History: Offers no acute complaints denies pain, tolerating diet, no acute events overnight. Review of Systems TECHNICAL SUPPORT COORDINATOR no headache, no dizziness CVS no chest pain, no palpitation GI no nausea no vomiting, no diarrhea Review of Systems: Yes all other systems are reviewed and are negative Physical Exam Vital Signs: Vital Signs: Last Vital Signs Temp 98.4 F 07/30/21 11:13 Pulse 96 07/30/21 16:35 Resp 20 07/30/21 11:13 BP 121/53 L 07/30/21 16:35 Pulse Ox 96 07/30/21 16:35 BMI result Body Mass Index 24.7 Const: Other: General resting comfortably in no acute distress.? Neck supple no JVD. CVS? regular rate rhythm, Respiratory lungs clear to auscultation, no respiratory distress Gastrointestinal abdomen soft, nontender, bowel sounds audible Extremities rt foot dressing in place Neuro nonfocal Skin no rash Objective Data Active Medications Acetaminophen (Acetaminophen 325 Mg Tablet) 650 mg PO Q6H PRN PRN Reason: Pain, Mild (Pain Scale 1-3) Last Admin: 07/30/21 03:39 Dose: 650 mg Documented by: RANCHO Albuterol Sulfate (Albuterol Sulfate (0.083%) 2.5 Mg/3 Ml Vial.Neb) 2.5 mg INHALE ONCE PRN PRN Reason: Wheezing Amiodarone HCl (Amiodarone Hcl 200 Mg Tablet) 200 mg PO DAILY [facility] Last Admin: 07/30/21 09:32 Dose: 200 mg Documented by: ALISON Amlodipine Besylate (Amlodipine Besylate 10 Mg Tablet) 10 mg PO DAILY [facility]; Protocol Last Admin: 07/30/21 09:32 Dose: 10 mg Documented by: ALISON Atorvastatin Calcium (Atorvastatin Calcium 10 Mg Tablet) 10 mg PO BEDTIME [facility] Last Admin: 07/29/21 21:01 Dose: 10 mg Documented by: VALERIE Clopidogrel Bisulfate (Clopidogrel Bisulfate 75 Mg Tablet) 75 mg PO DAILY [facility] Last Admin: 07/30/21 09:32 Dose: 75 mg Documented by: ALISON Docusate Sodium (Docusate Sodium 100 Mg Capsule) 100 mg PO DAILY PRN PRN Reason: Constipation Doxycycline Hyclate (Doxycycline Hyclate 100 Mg Tablet) 100 mg PO Q12H [facility] Last Admin: 07/30/21 15:13 Dose: 100 mg Documented by: ALISON Fentanyl (Fentanyl Citrate/Pf 100 Mcg/2 Ml Vial) 25 mcg IVPUSH Q5M PRN; Protocol PRN Reason: Pain, Moderate (Pain Scale 4-6 Insulin Human Lispro (Insulin Lispro 100 Unit/Ml 3 Ml Vial) 0 unit SUBCUT QIDACHS [facility]; Protocol Last Admin: 07/30/21 16:45 Dose: Not Given Documented by: ALISON Non-Admin Reason: No Insulin Coverage Levothyroxine Sodium (Levothyroxine Sodium 25 Mcg Tablet) 25 mcg PO DAILY@0600 [facility] Last Admin: 07/30/21 05:47 Dose: 25 mcg Documented by: RANCHO Metoprolol Succinate (Metoprolol Succinate Er 100 Mg Tab.Er.24h) 100 mg PO DAILY [facility]; Protocol Last Admin: 07/30/21 09:32 Dose: 100 mg Documented by: ALISON Mirtazapine (Mirtazapine 7.5 Mg Tablet) 7.5 mg PO BEDTIME [facility] Last Admin: 07/29/21 21:01 Dose: 7.5 mg Documented by: VALERIE Ondansetron HCl (Ondansetron Hcl 4 Mg/2 Ml Vial) 4 mg IVPUSH Q8H PRN PRN Reason: Nausea and Vomiting Ondansetron HCl (Ondansetron Hcl 4 Mg/2 Ml Vial) 4 mg IVPUSH ONCE PRN PRN Reason: Nausea and Vomiting Sodium Chloride (0.9 % Sodium Chloride Flush 3 Ml Syringe) 3 ml IVFLUSH QSHIFT [facility] Last Admin: 07/30/21 15:13 Dose: 3 ml Documented by: ALISON Timolol Maleate (Timolol Maleate 0.5 % Oph [place] 5 Ml Drbtl) 1 drop EYE-LEFT DAILY [facility] Last Admin: 07/30/21 09:31 Dose: 1 drop Documented by: ALISON Vitamin D (Cholecalciferol (Vitamin D3) 25 Mcg Tablet) 25 mcg PO DAILY [facility] Last Admin: 07/30/21 09:32 Dose: 25 mcg Documented by: ALISON Labs CBC & Chem 7: 07/31/21 06:02 07/31/21 06:02 Labs: Laboratory Results - last 24 hr 07/29/21 07/30/21 07/30/21 19:05 05:40 05:40 MCV 91.4 MCH 30.0 MCHC 32.9 RDW 14.7 Plt Count 208 MPV 11.3 Immature Gran % (Auto) 0.4 Neut % (Auto) 69.7 Lymph % (Auto) 12.9 L [place] % (Auto) 12.0 H Eos % (Auto) 4.6 H Baso % (Auto) 0.4 Lymph # (Auto) 1.2 [place] # (Auto) 1.2 Eos # (Auto) 0.4 Baso # (Auto) 0.0 Abs Immat Gran (auto) 0.04 H Absolute Neuts (auto) 6.7 Absolute Nucleated RBC 0.000 Nucleated RBC % (auto) 0.0 Anion Gap 13 Estim Creat Clear Calc 48.3 Estimated GFR 55 POC Glucose 137 H Fasting Glucose 95 Calcium 8.4 Total Bilirubin 0.4 AST 59 H ALT 56 H Alkaline Phosphatase 125 H Total Protein 5.5 L Albumin 2.7 L 07/30/21 07/30/21 07/30/21 07:40 11:28 15:34 MCV MCH MCHC RDW Plt Count MPV Immature Gran % (Auto) Neut % (Auto) Lymph % (Auto) [place] % (Auto) Eos % (Auto) Baso % (Auto) Lymph # (Auto) [place] # (Auto) Eos # (Auto) Baso # (Auto) Abs Immat Gran (auto) Absolute Neuts (auto) Absolute Nucleated RBC Nucleated RBC % (auto) Anion Gap Estim Creat Clear Calc Estimated GFR POC Glucose 78 133 H 121 H Fasting Glucose Calcium Total Bilirubin AST ALT Alkaline Phosphatase Total Protein Albumin Assessment and Plan (1) Osteomyelitis of foot: Status: Acute (2) Type 2 diabetes mellitus with peripheral artery disease: Status: Acute Plan 76-year-old male history of diabetic neuropathy status post osteomyelitis as well as amputated toes x2 presents with worsening osteomyelitis as documented by MRI 1.Osteomyelitis (right foot) - status post right TMA POD 2 feeling good no pain s/p iv meropenem/ daptomycin x 8 days, all infected bone removed by vascular surgery therefore IV antibiotics discontinued Will discharge home on 1 week of doxycycline, dressing change by Dr. Oscar this morning he recommend outpatient follow-up with him in 2 weeks for removal of sutures and wound check Patient not requiring analgesics since has no pain due to decreased sensation. 2. DMII - blood sugars stable,continue sliding scale insulin , resume home medication upon discharge 3. Paroxysmal AFib -Acceptable rate control on amiodarone and metoprolol, Eliquis resume 4. CAD/ PVD -continue Plavix, and Eliquis DVT prophylaxis: Eliquis Full Code Patient will need continued inpatient hospitalization due to right transmetatarsal surgery need physical therapy for ambulation ,heel touch /offloading boot/cm arranging for safe discharge. Quality Stroke Does the patient have a stroke diagnosis?: No VTE Prior VTE?: No VTE Risk Level:: Medical - moderate - high VTE Device Contraindication: Treatment Not Indicated VTE Drug Contraindication: N/A - Med Ordered
[2021-07-30 19:46] VITALS: BP 164/67; PULSE 62; RESP 18; TEMP 36.9; O2SAT 93
[2021-07-30] MEDS: Atorvastatin Calcium 10 MG TABLET PO (20:40)
[2021-07-30] MEDS: Mirtazapine 7.5 MG TABLET PO (20:40)
[2021-07-30 20:50] LABS: Glucose, Whole Blood 129 mg/dL (60-115)
[2021-07-30 23:27] VITALS: BP 141/54; PULSE 62; RESP 18; TEMP 36.2; O2SAT 97
[2021-07-31] MEDS: Acetaminophen 325 MG TABLET 650 MG PO (03:06)
[2021-07-31 04:00] VITALS: BP 145/68; PULSE 58; RESP 17; TEMP 36.7; O2SAT 96
[2021-07-31 06:23] LABS: MANUAL DIFF FLAG NO
[2021-07-31] MEDS: Levothyroxine Sodium 25 MCG TABLET PO (06:26)
[2021-07-31 06:32] LABS: Basophils Absolute Auto 0.1 X10*3/uL (0.0-0.2); Basophils Percent Auto 0.5 % (0-2); Eosinophils Absolute Auto 0.5 X10*3/uL (0.0-0.4); Hematocrit 27.3 % (42.0-52.0); Imm Gran Abs Auto 0.06 X10*3/uL (0.00-0.03); Imm Gran Pct Auto 0.6 % (0.0-0.4); Lymphocytes Absolute Auto 1.4 X10*3/uL (1.2-4.9); Lymphocytes Percent Auto 13.4 % (20-40); Mean Corpuscular Hemoglobin 30.3 pg (27.0-33.0); Mean Corpuscular Volume 91.9 fL (80.0-98.0); Mean Platelet Volume 11.7 fL (9.4-12.4); Monocytes Absolute Auto 1.1 X10*3/uL (0.1-1.2); Monocytes Percent Auto 10.1 % (2-11); Neutrophils Absolute Auto 7.6 x10*3/uL (2.0-8.3); Neutrophils Percent Auto 70.4 % (45-73); Platelet Count 200 X10*3/uL (160-400); Red Blood Count 2.97 X10*6/uL (4.60-5.80); Red Cell Distribution Width 14.6 % (11.0-16.0); White Blood Count 10.7 X10*3/uL (4.8-10.8)
[2021-07-31 07:03] LABS: Alanine Aminotransferase 78 U/L (0-40); Albumin Level 2.8 g/dL (3.5-5.0); Alkaline Phosphatase 141 U/L (39-117); Anion Gap 11 (12-20); Aspartate Amino Transferase 87 U/L (5-37); Bilirubin Total 0.2 mg/dL (0.0-1.0); Blood Urea Nitrogen 31 mg/dL (9-16); Calcium 8.7 mg/dL (8.4-10.2); Carbon Dioxide 24 mmol/L (22-29); Chloride 107 mmol/L (96-108); Creatinine Clr Calc Pharmacy 48.7; Estimated Glomerular Filt Rate 56; Glucose Fasting 96 mg/dL (60-99); Potassium 4.6 mmol/L (3.3-5.1); Sodium 137 mmol/L (135-145); Total Protein 5.6 g/dL (6.5-8.0)
[2021-07-31 07:28] VITALS: BP 136/66; PULSE 51; RESP 18; TEMP 36.8; O2SAT 95
[2021-07-31 07:42] LABS: Glucose, Whole Blood 89 mg/dL (60-115)
[2021-07-31] MEDS: Amiodarone HCL 200 MG TABLET PO (08:07)
[2021-07-31] MEDS: amLODIPine Besylate 10 MG TABLET PO (08:07)
[2021-07-31] MEDS: 0.9 % Sodium Chloride Flush 3 ML SYRINGE IVFLUSH (08:07)
[2021-07-31] MEDS: Clopidogrel Bisulfate 75 MG TABLET PO (08:07)
[2021-07-31] MEDS: Cholecalciferol (Vitamin D3) 25 MCG TABLET PO (08:07)
[2021-07-31] MEDS: timoloL maleate 0.5 % Oph Sol 5 ML DRBTL 1 DROP EYE-LEFT (08:10)
--- NOTE | 2021-07-31 09:02 | MHC.CM.PN ---
NURSE PROBATION MANAGER NOTE AFTER SEVERAL ATTEMPTS TO FIND VNA FOR DRESSING CHNAGES ,SURGICAL WOUND ASSESSMENT, HIS PREVIOUS VNA HAS ARRANGED TO ACCEPT HIM AND HAVE VISIT TOMORROW OON TUESDAY HE WILL BE D/C TODAY HOME
[2021-07-31 09:27] VITALS: BP 136/66; PULSE 51; O2SAT 95
--- NOTE | 2021-07-31 10:34 | HO.VASCPN ---
Subjective Subjective Date of Service: 07/31/21 Patient reports: no new complaints and feels better Interval history: Patient seen and examined. No significant events overnight. His discharge yesterday was held up secondary to lack of visiting nurses availability. Overnight he had no issues and is relatively comfortable. Physical Exam Vital Signs: Vital Signs: Last Vital Signs Temp 98.3 F 07/31/21 07:28 Pulse 51 07/31/21 09:27 Resp 18 07/31/21 07:28 BP 136/66 07/31/21 09:27 Pulse Ox 95 07/31/21 09:27 BMI result Body Mass Index 24.7 Const: General: cooperative, healthy appearing and comfortable Orientation/consciousness: oriented to person, oriented to place and oriented to time HEENT: Head: Yes normal to inspection Neck: Neck: Yes normal visual inspection Carotids: no bruits Chest: Chest palpation & inspection: normal inspection of the chest Resp: Effort & Inspection: normal respiratory effort and able to speak in complete sentences Auscultation: clear to auscultation bilaterally, no crackles, no rales, no rhonchi and no wheezes Cardio: Rate: regular rate Rhythm: regular rhythm Heart sounds: S1 normal heart sound present and S2 normal heart sound present Bruits: no carotid bruits Peripheral pulses: Peripheral pulses 2+ throughout GI: Inspection: Yes normal to inspection Skin: Wounds: amputation site (Dressing clean dry intact) Hair: normal Neuro: General: oriented to person, oriented to place and oriented to time Cranial nerves: Yes CN's II-XII intact bilaterally and Yes Normal hearing present Cognition (Neuro): normal cognition Motor exam (neuro): 5/5 motor strength present throughout Extrem: Other: venous exam: No significant superficial varicosities or spider telangiectasias, minimal edema General: No clubbing, No cyanosis and No edema Psych: Appearance: grossly normal Mental Status: mental status grossly normal Speech and movement: Normal speech and movement present Progress Note: A&P Assessment and plan (1) Status post transmetatarsal amputation of foot: Status: Acute Assessment and Plan: In short patient is doing well status post transmetatarsal amputation once again he is stable from my perspective for discharge once visiting nurse services are set up. He can follow up with us as an outpatient in approximately 2 weeks time for suture and staple removal. Thank you for allowing us to assist in his care. If there are any questions or concerns please do not hesitate to contact us. Fall Risk Details Current Medications: Current Medications Acetaminophen (Acetaminophen 325 Mg Tablet) 650 mg PO Q6H PRN PRN Reason: Pain, Mild (Pain Scale 1-3) Last Admin: 07/31/21 03:06 Dose: 650 mg Documented by: Albuterol Sulfate (Albuterol Sulfate (0.083%) 2.5 Mg/3 Ml Vial.Neb) 2.5 mg INHALE ONCE PRN PRN Reason: Wheezing Amiodarone HCl (Amiodarone Hcl 200 Mg Tablet) 200 mg PO DAILY [facility] Last Admin: 07/31/21 08:07 Dose: 200 mg Documented by: Amlodipine Besylate (Amlodipine Besylate 10 Mg Tablet) 10 mg PO DAILY [facility]; Protocol Last Admin: 07/31/21 08:07 Dose: 10 mg Documented by: Atorvastatin Calcium (Atorvastatin Calcium 10 Mg Tablet) 10 mg PO BEDTIME [facility] Last Admin: 07/30/21 20:40 Dose: 10 mg Documented by: Clopidogrel Bisulfate (Clopidogrel Bisulfate 75 Mg Tablet) 75 mg PO DAILY [facility] Last Admin: 07/31/21 08:07 Dose: 75 mg Documented by: Docusate Sodium (Docusate Sodium 100 Mg Capsule) 100 mg PO DAILY PRN PRN Reason: Constipation Doxycycline Hyclate (Doxycycline Hyclate 100 Mg Tablet) 100 mg PO Q12H [facility] Last Admin: 07/31/21 03:06 Dose: 100 mg Documented by: Fentanyl (Fentanyl Citrate/Pf 100 Mcg/2 Ml Vial) 25 mcg IVPUSH Q5M PRN; Protocol PRN Reason: Pain, Moderate (Pain Scale 4-6 Insulin Human Lispro (Insulin Lispro 100 Unit/Ml 3 Ml Vial) 0 unit SUBCUT QIDACHS [facility]; Protocol Last Admin: 07/31/21 07:43 Dose: Not Given Documented by: Levothyroxine Sodium (Levothyroxine Sodium 25 Mcg Tablet) 25 mcg PO DAILY@0600 [facility] Last Admin: 07/31/21 06:26 Dose: 25 mcg Documented by: Metoprolol Succinate (Metoprolol Succinate Er 100 Mg Tab.Er.24h) 100 mg PO DAILY [facility]; Protocol Last Admin: 07/31/21 08:06 Dose: Not Given Documented by: Mirtazapine (Mirtazapine 7.5 Mg Tablet) 7.5 mg PO BEDTIME [facility] Last Admin: 07/30/21 20:40 Dose: 7.5 mg Documented by: Ondansetron HCl (Ondansetron Hcl 4 Mg/2 Ml Vial) 4 mg IVPUSH Q8H PRN PRN Reason: Nausea and Vomiting Ondansetron HCl (Ondansetron Hcl 4 Mg/2 Ml Vial) 4 mg IVPUSH ONCE PRN PRN Reason: Nausea and Vomiting Sodium Chloride (0.9 % Sodium Chloride Flush 3 Ml Syringe) 3 ml IVFLUSH QSHIFT [facility] Last Admin: 07/31/21 08:07 Dose: 3 ml Documented by: Timolol Maleate (Timolol Maleate 0.5 % [place] 5 Ml Drbtl) 1 drop EYE-LEFT DAILY [facility] Last Admin: 07/31/21 08:10 Dose: 1 drop Documented by: Vitamin D (Cholecalciferol (Vitamin D3) 25 Mcg Tablet) 25 mcg PO DAILY [facility] Last Admin: 07/31/21 08:07 Dose: 25 mcg Documented by: Time Spent With Patient Time: Total time spent is greater than 50% in coordination of care (as documented) at patient's floor/unit and/or counseling patient: Procedures Date of Service Date of Service: 07/31/21 Quality Stroke Does the patient have a stroke diagnosis?: No VTE Prior VTE?: No VTE Risk Level:: Medical - moderate - high VTE Device Contraindication: Treatment Not Indicated VTE Drug Contraindication: N/A - Med Ordered
== END 2021-07-31 11:06 | disposition home health service (06) | DRG 475 ==
LOC: HO.ED 21:03 → HO.EDOVER 22:38 → HO.S3 07-22 17:37
PROVIDERS: Hospitalist; Surgery Vascular Surgery; Admitting Provider Internal Medicine; Emergency Provider Emergency Medicine; PCP Internal Medicine; Visit Provider Hospitalist
PROC: 0Y6M0Z9 Detachment at Right Foot, Partial 1st Ray, Open Approach (ICD-10-PCS; CPT 28805; principal; 2021-07-28 13:00)
DX: T87.43 Infection of amputation stump, right lower extremity (principal); E11.52 Type 2 diabetes mellitus with diabetic peripheral angiopathy with gangrene; I96 Gangrene, not elsewhere classified; L03.115 Cellulitis of right lower limb; M84.674A Pathological fracture in other disease, right foot, initial encounter for fracture; E11.69 Type 2 diabetes mellitus with other specified complication; I25.10 Atherosclerotic heart disease of native coronary artery without angina pectoris; E11.40 Type 2 diabetes mellitus with diabetic neuropathy, unspecified; E78.5 Hyperlipidemia, unspecified; E11.621 Type 2 diabetes mellitus with foot ulcer; E11.628 Type 2 diabetes mellitus with other skin complications; L97.519 Non-pressure chronic ulcer of other part of right foot with unspecified severity; E03.9 Hypothyroidism, unspecified; I48.0 Paroxysmal atrial fibrillation; Z20.822 Contact with and (suspected) exposure to COVID-19; Z87.891 Personal history of nicotine dependence; Z79.01 Long term (current) use of anticoagulants; Z79.02 Long term (current) use of antithrombotics/antiplatelets; Z79.84 Long term (current) use of oral hypoglycemic drugs; Z79.890 Hormone replacement therapy; Z79.899 Other long term (current) drug therapy
CPT/HCPCS: 36415; 73701; 80048; 80053; 80076; 80202; 82947; 83605; 85025; 85610; 85652; 86140; 87040; 87635; 88305; 88311; 96361; 96365; 97116; 97162; 97530; 99285; J0878; J2185; J2405; J3010; Q9967

== ENCOUNTER → 2021-08-11 14:57 | Outpatient (BNVA) | payer MEDICARE, SELFPAY | PROVIDERS: PCP Internal Medicine; Visit Provider Surgery Vascular Surgery | DX: T87.89 Other complications of amputation stump (principal); L03.115 Cellulitis of right lower limb; I73.9 Peripheral vascular disease, unspecified; Z89.431 Acquired absence of right foot | CPT/HCPCS: 99212 ==

== ENCOUNTER → 2021-09-03 13:27 | Outpatient (BNVA) | payer MEDICARE, SELFPAY | PROVIDERS: PCP Internal Medicine; Visit Provider Surgery Vascular Surgery | DX: I73.9 Peripheral vascular disease, unspecified (principal) | CPT/HCPCS: 99212 ==

== ENCOUNTER 2021-10-21 13:00 | Outpatient (REF) | payer MEDICARE, SELFPAY ==
--- NOTE | ~2021-10-21 | US_ITS ---
EXAMINATION: Noninvasive assessment of the bilateral lower extremities with ARTERIAL DUPLEX and ANKLE BRACHIAL INDICES (ABIs). ? CLINICAL INFORMATION: Peripheral vascular disease ? TECHNIQUE: Duplex Doppler techniques with waveform analysis and measurement of velocities in the bilateral common femoral, profunda femoris, superficial femoral, popliteal and tibial arteries were performed. Additionally, ankle pulse volume recordings, ankle pressure measurements and ankle brachial indices were obtained of the lower extremity arterial system bilaterally. The study was performed only at rest. ? COMPARISON: 06/02/2021 and 12/15/2020 ? FINDINGS: ? DIRECT DUPLEX DOPPLER FINDINGS: ? RIGHT LEG: Common femoral artery:?196 cm/s, phasicity: Triphasic Profunda femoris artery:??171 cm/s, phasicity: Biphasic Superficial femoral artery (proximal):?161 cm/s, phasicity: Biphasic. Mild atherosclerotic plaque Superficial femoral artery (mid):?216 cm/s, phasicity: Biphasic. Mild atherosclerotic plaque Superficial femoral artery (distal):?130 cm/s, phasicity: Biphasic Popliteal artery:?98.5 cm/s, phasicity: Biphasic Posterior tibial artery:?36.4 cm/s, phasicity: Biphasic Peroneal artery:?130 cm/s, phasicity: Monophasic ? LEFT LEG: Common femoral artery:?212 cm/s, phasicity: Biphasic Profunda femoris artery:?116?cm/s, phasicity: Biphasic Superficial femoral artery (proximal):?154?cm/s, phasicity: Biphasic Superficial femoral artery (mid):?147 cm/s, phasicity: Biphasic. Mild atherosclerotic plaque Superficial femoral artery (distal):?95.6?cm/s, phasicity: Biphasic Popliteal artery:?94.4?cm/s, phasicity: Biphasic Posterior tibial artery:?53.4?cm/s, phasicity: Biphasic Peroneal artery:?67.2 cm/s, phasicity: Biphasic ANKLE-BRACHIAL INDEX: ? Right: 0.86?, previously 0.94 Left: 0.96, previously 1.05 ? ANKLE PRESSURES: ? Right: PT 135, DP?131?? Left: PT?151, DP?140?? ? ANKLE PVR WAVEFORMS: ? Right: Normal Left: Normal? ? Right leg:???Mildly decreased ankle brachial index measuring 0.86, previously 0.94. Patent arterial flow is seen throughout the right lower extremity. Elevated velocity seen in the mid superficial femoral artery with underlying atherosclerotic plaque likely represents a mild to moderate stenosis. ? Left leg:???Normal ankle brachial index. Patent arterial flow seen throughout the left lower extremity without significant arterial occlusion ? ?? RACHAEL Reference: - >1.4 = calcified vessels - 0.9 - 1.4 = normal - no significant arterial disease - 0.7 - 0.89 = mild peripheral arterial disease - 0.51 - 0.69 = moderate peripheral arterial disease - ? 0.50 = severe peripheral arterial disease - < .30 = critical arterial disease US/US arterial duplex LE BI IMPRESSION: ?
== END 2021-10-21 13:01 | disposition home or self-care (01) ==
LOC: HO.US 13:00
PROVIDERS: Visit Provider Surgery Vascular Surgery
DX: I73.9 Peripheral vascular disease, unspecified (principal)
CPT/HCPCS: 93923; 93925

== ENCOUNTER → 2021-10-27 13:10 | Outpatient (BNVA) | payer MEDICARE, SELFPAY | PROVIDERS: PCP Internal Medicine; Visit Provider Surgery Vascular Surgery | DX: I73.9 Peripheral vascular disease, unspecified (principal); Z89.431 Acquired absence of right foot | CPT/HCPCS: 99212 ==

== ENCOUNTER 2022-02-21 14:35 | Inpatient (IN) | payer MEDICARE, SELFPAY ==
--- NOTE | ~2022-02-21 | XR_ITS ---
EXAMINATION: XR CHEST CLINICAL INFORMATION: Persistent hypoxemia COMPARISON: Chest radiographs 02/21/2022, 11/29/2020 TECHNIQUE: Supine portable AP view of the chest was obtained. FINDINGS: There are scattered bilateral groundglass opacity, slightly greater on right and greater peripherally. There is no confluent lobar or segmental airspace consolidation or air bronchograms. No hyperinflation. Heart size normal. Vascularity normal. No visible effusion. The hilar and mediastinal contours are unremarkable. No acute bony abnormality. XR/XR chest 1V IMPRESSION: -Scattered bilateral groundglass opacities, increased from prior exam 02/21/2022. -Findings may suggest atypical or viral pneumonia. Clinically correlate.
--- NOTE | ~2022-02-21 | XR_ITS ---
EXAMINATION: XR CHEST CLINICAL INFORMATION: Nausea, vomiting COMPARISON: 11/29/2020 TECHNIQUE: Frontal view of the chest was obtained. FINDINGS: Bilateral areas of opacity consistent with infiltrates. Most noted in the mid to lower lung zones. There is no effusion. The cardiac silhouette does not appear enlarged. XR/XR chest 1V IMPRESSION: Bilateral infiltrates
[2022-02-21 14:40] VITALS: BP 130/60; PULSE 71; O2SAT 85
[2022-02-21 14:56] VITALS: BP 133/42; PULSE 66; RESP 18; TEMP -12.3; TEMP 9.9; O2SAT 94; BMI 23.1
[2022-02-21 14:58] VITALS: BP 128/55; PULSE 59; O2SAT 94
--- NOTE | 2022-02-21 15:20 | PC.NURSE ---
Pt alert/oriented. Reports nausea no vomiting, diarrhea and general wakness since Tuesday. Skin pwd. Speaking full sentences. Sat 92-95% on lpm via nc, pt denies any SOB and breathing is non labored. LS CTA. Sinus shaista on tele
--- NOTE | 2022-02-21 15:36 | ED_ITS ---
HPI - General Adult General Chief complaint: Nausea/Vomiting/Diarrhea Stated complaint: FLU LIKE SX,DIARRHEA,NAUSEA,WEAK X'S DAYS Time Seen by Provider: 02/21/22 15:34 Source: patient and EMS Mode of arrival: EMS Limitations: no limitations History of Present Illness HPI narrative: Patient is a 76 year old assigned male at with a history of DM, PAD, and asthma presenting to the emergency department today with nausea and general weakness since last Tuesday. Patient states that over the last few days he has started to feel more weak and generally unwell. Patient states that he does not require O2 at home. Patient denies any dizziness, lightheadedness, abdominal pain, vomiting, fever, chills, blurry vision, double vision, loss of vision, chest pain, difficulty breathing, shortness of breath, back pain, night sweats, pain with urination, increased urinary frequency, increased urinary urgency, blood in his urine or stool, syncope or a near syncopal episode, recent trauma or falls, bowel incontinence, bladder incontinence, bowel retention, bladder retention, or any other complaints at this time. Onset (ago): day(s) (2) Severity: mild Severity scale (1-10): 4 Relieving factors: none Exacerbating factors: movement Associated symptoms: cough, nausea/vomiting and weakness Treatments prior to arrival: none Related Data Home Medications Medication Instructions Recorded Confirmed cholecalciferol (vitamin D3) 25 25 mcg PO DAILY 04/14/20 02/21/22 mcg (1,000 unit) capsule timolol maleate 0.5 % eye drops 1 drp ophthalmic-Left DAILY 08/21/20 02/21/22 levothyroxine 25 mcg tablet 25 mcg PO DAILY@0600 02/21/22 02/21/22 (Synthroid) Previous Rx's Medication Instructions Recorded amiodarone 200 mg tablet 200 mg PO DAILY #30 tabs 05/28/21 apixaban 5 mg tablet (Eliquis) 5 mg PO BID #60 tabs 05/28/21 mirtazapine 7.5 mg tablet 7.5 mg PO BEDTIME #90 tabs 08/03/21 clopidogrel 75 mg tablet (Plavix) 75 mg PO DAILY #90 tabs 10/26/21 metoprolol succinate 100 mg 100 mg PO DAILY #90 tabs 10/26/21 tablet,extended release 24 hr amlodipine 10 mg tablet 10 mg PO DAILY 90 days #90 tabs 01/03/22 metformin 500 mg tablet 500 mg PO BIDWM #180 tabs 01/04/22 atorvastatin 10 mg tablet 10 mg PO BEDTIME #90 tabs 01/10/22 clotrimazole 1 % topical cream 1 appl topical BID 4 weeks #45 01/25/22 grams Allergies Allergy/AdvReac Type Severity Reaction Status Date / Time No Known Allergies Allergy Mild Verified 12/30/21 09:11 Review of Systems Constitutional: Constitutional: Reports no additional constitutional complaints, Denies chills, Denies fever(s), Denies night sweats and Reports weakness Eyes: Eyes: Reports no additional eye complaints, Denies blurry vision, Denies change in vision, Denies diplopia, Denies eye discharge, Denies loss of vision and Denies eye pain ENT: Denies dizziness Cardiovascular: Cardiovascular: Reports no additional cardiovascular complaints, Denies chest pain, Denies lightheadedness, Denies Loss of Consciousness and Denies dyspnea Respiratory: Respiratory: Reports no additional respiratory complaints, Reports cough and Denies dyspnea Gastrointestinal: Gastrointestinal: Reports no additional gastrointestinal complaints, Denies abdominal pain, Denies melena, Denies hematochezia, Denies change in bowel habits, Denies change in stool character and Reports nausea Genitourinary: Genitourinary: Reports no additional male genitourinary complaints, Denies hematuria, Denies oliguria, Denies difficulty urinating, Denies dysuria, Denies urinary frequency, Denies urinary hesitancy, Denies urinary incontinence and Denies urinary urgency Musculoskeletal: Musculoskeletal: Reports no additional musculoskeletal complaints, Denies numbness and Denies tingling Neurologic: Denies dizziness, Denies loss of vision, Denies numbness, Denies tingling and Reports weakness Psychiatric: Psychiatric: Reports no additional psychiatric complaints Endocrine: Endocrine: Reports no additional endocrine complaints Hematologic/Lymphatic: Hematologic/Lymphatic: Reports no additional hematologic/lymphatic complaints Allergic/Immunologic: Allergic/Immunologic: Reports no additional allergic/immunologic complaints PMFSH Past Medical History Attestation statement: The following information was validated with the patient. Source: old records reviewed Medical History Abscess of right foot Anxiety and depression Asthma Atrial fibrillation Atrial fibrillation with rapid ventricular response Avascular necrosis of bone of hip Cellulitis Coronary artery disease Diabetic foot ulcer Diabetic nephropathy Diabetic neuropathy Diverticular disease DMII (diabetes mellitus, type 2) Hypercholesterolemia Hypertension Open wound Osteomyelitis of foot Osteomyelitis of foot Osteomyelitis of toe PAD (peripheral artery disease) Preoperative cardiovascular examination Thrombocytopenia Tobacco abuse Tubular adenoma of colon Type 2 diabetes mellitus with diabetic foot infection Type 2 diabetes mellitus with hyperglycemia Type 2 diabetes mellitus with peripheral artery disease Vitamin D deficiency Surgical History Amputated toe of right foot Amputation finger History of cataract surgery History of surgery Family History Family History Father Diabetes Hypertension CVD (cardiovascular disease) Stroke Mother CVD (cardiovascular disease) Hypertension Cancer Sister No problems noted. Son Stroke Social History Social History Household Members: Spouse Household Members Other:: 4 Housing: House Do you presently have visiting nurse or other home services: Yes Alcohol intake: former Patient Tobacco Use Status: Former Tobacco user Quit Date: 4 months ago Tobacco use type: Cigarette Cigarettes Per Day: 7 Years Smoked: 09/2020 stopped Smoked in Last 30 Days: No e-Cigarette/Vaping Use: Never Used Second Hand Smoke Exposure: No Use of substances other than those prescribed or required for medical reasons: No Advance Directives: Yes Advance Directives on File: Yes Advance Directives Date on File: 07/24/20 service: No Current occupational status: retired Cognitive needs: No Hearing needs: No Vision needs: Yes Physical Exam ED Vital Signs: Vital Signs - 24 hr 02/21/22 14:56 02/21/22 14:58 02/21/22 16:39 Temperature 9.9 F L Pulse Rate 66 59 53 Respiratory Rate 18 18 Blood Pressure 133/42 L 128/55 L 118/46 L Pulse Oximetry 94 94 93 Oxygen Delivery Method Nasal Cannula Nasal Cannula Nasal Cannula Oxygen Flow Rate 3 3 BMI result Body Mass Index 23.1 Const General: cooperative, no acute distress, alert and awake Nutritional Appearance: well nourished Orientation/consciousness: patient oriented x3 Limitations: no limitations HENMT Head: Yes normal to inspection and Yes atraumatic Ears: hearing grossly normal bilaterally and external ears normal General nose exam: Normal external nose present, no nasal discharge noted and no epistaxis Face and sinus: Yes normal facial exam, No abrasion and No laceration Mouth: Normal oral and palatal mucosa present, no drooling and no muffled voice Eyes General: appearance normal, both eyes and all related structures Periorbital: periorbital findings normal Eyelids: Yes eyelids normal Conjunctivae: conjunctivae normal Pupils: Equal, round and reactive pupils present EOM: EOMs intact bilaterally Neck Neck: Yes normal visual inspection, Yes full ROM and Yes no lymphadenopathy Chest Chest palpation & inspection: normal inspection of the chest Resp Effort & Inspection: normal respiratory effort and able to speak in complete sentences Auscultation: rhonchi throughout Cardio Rate: regular rate Rhythm: regular rhythm GI Inspection: Yes normal to inspection Palpation (GI): Soft to palpation, not firm, nontender, no guarding and not rigid Neuro General: patient oriented x3 and moves all extremities Cranial nerves: Yes Equal, round and reactive pupils present Cognition (Neuro): normal cognition Motor exam (neuro): 5/5 motor strength present throughout Sensory Exam: Normal double simultaneous stimulation for sensation Coordination: [id number] test normal Extrem General: Yes normal to inspection, Yes full ROM and Yes capillary refill normal Psych Appearance: grossly normal Mental Status: mental status grossly normal Affect: normal affect Attitude: cooperative Thought process: Normal thought process present Thought content: Normal thought content present Insight: Good insight present (Psych) Medical Decision Making [facility] Narrative Medical decision making narrative: Patient is a 76 year old assigned male at with a history of a-fib, asthma, and DM presenting to the emergency department today with weakness and nausea. Patient's physical exam showed an hypoxic individual with diffuse rhonci. Patient's blood work showed an elevated CR of 1.87, BUN of 34, an initial troponin of 39.4 with a repeat of 37.4. Patient's rapid COVID-19 test was positive. Patient's EKG was unremarkable. Patient's chest x-ray showed bilateral infiltrates. Patient was given decadron and placed on oxygen via nasal cannula which resolved his hypoxia. Patient was covered for super imposed pneumonia with rocephin. Patient's clinical presentation is most consistent with COVID-19 hypoxia. Patient's clinical presentation is not consistent with sepsis. I explained my physical exam findings as well as all test results to the patient. I answered all questions asked by the patient. Patient verbalized agreement and understanding with this treatment plan and admission. Medical Records Medical records reviewed: Yes I reviewed the patient's medical records. Lab Data Lab results reviewed: Yes I reviewed the patient's lab results. Result diagrams: 02/21/22 16:29 02/21/22 16:29 Labs: Lab Results 02/21/22 02/21/22 02/21/22 Range/Units 16:29 16:29 16:29 WBC 5.3 (4.8-10.8) X10*3/uL RBC 3.82 L D (4.60-5.80) X10*6/uL Hgb 10.7 L (14.0-18.0) g/dl Hct 33.0 L D (42.0-52.0) % MCV 86.4 (80.0-98.0) fL MCH 28.0 (27.0-33.0) pg MCHC 32.4 (31.0-36.0) g/dl RDW 16.6 H (11.0-16.0) % Plt Count 209 (160-400) X10*3/uL MPV 11.5 (9.4-12.4) fL Immature Gran % (Auto) 0.8 H (0.0-0.4) % Neut % (Auto) 82.5 H (45-73) % Lymph % (Auto) 11.0 L (20-40) % [place] % (Auto) 5.3 (2-11) % Eos % (Auto) 0.0 (0-4) % Baso % (Auto) 0.4 (0-2) % Lymph # (Auto) 0.6 L (1.2-4.9) X10*3/uL [place] # (Auto) 0.3 (0.1-1.2) X10*3/uL Eos # (Auto) 0.0 (0.0-0.4) X10*3/uL Baso # (Auto) 0.0 (0.0-0.2) X10*3/uL Abs Immat Gran (auto) 0.04 H (0.00-0.03) X10*3/uL Absolute Neuts (auto) 4.4 (2.0-8.3) x10*3/uL Absolute Nucleated RBC 0.000 (0.0-0.012) X10*3/uL Nucleated RBC % (auto) 0.0 (0.0-0.2) /100WBC Sodium 137 (135-145) mmol/L Potassium 4.2 (3.3-5.1) mmol/L Chloride 105 (96-108) mmol/L Carbon Dioxide 18 L (22-29) mmol/L Anion Gap 18 (12-20) BUN 34 H (9-16) mg/dL Creatinine 1.87 H (0.5-1.4) mg/dL Estim Creat Clear Calc 32.5 Estimated GFR 35 Random Glucose 76 (60-115) mg/dL Lactic Acid (0.5-2.0) mmol/L Calcium 7.9 L D (8.4-10.2) mg/dL Magnesium 2.2 (1.6-2.6) mg/dL Total Bilirubin 0.7 (0.0-1.0) mg/dL AST 163 H (5-37) U/L ALT 82 H (0-40) U/L Alkaline Phosphatase 113 (39-117) U/L Troponin I High Sens 39.4 H (<3.5-35.0) ng/L Total Protein 6.0 L (6.5-8.0) g/dL Albumin 2.9 L (3.5-5.0) g/dL Influenza Type A (PCR) (Negative) Influenza Type B (PCR) (Negative) RSV RNA Qual (PCR) (Negative) SARS-CoV-2 RNA (RT-PCR) (Negative) 02/21/22 02/21/22 02/21/22 Range/Units 16:32 17:33 17:33 WBC (4.8-10.8) X10*3/uL RBC (4.60-5.80) X10*6/uL Hgb (14.0-18.0) g/dl Hct (42.0-52.0) % MCV (80.0-98.0) fL MCH (27.0-33.0) pg MCHC (31.0-36.0) g/dl RDW (11.0-16.0) % Plt Count (160-400) X10*3/uL MPV (9.4-12.4) fL Immature Gran % (Auto) (0.0-0.4) % Neut % (Auto) (45-73) % Lymph % (Auto) (20-40) % [place] % (Auto) (2-11) % Eos % (Auto) (0-4) % Baso % (Auto) (0-2) % Lymph # (Auto) (1.2-4.9) X10*3/uL [place] # (Auto) (0.1-1.2) X10*3/uL Eos # (Auto) (0.0-0.4) X10*3/uL Baso # (Auto) (0.0-0.2) X10*3/uL Abs Immat Gran (auto) (0.00-0.03) X10*3/uL Absolute Neuts (auto) (2.0-8.3) x10*3/uL Absolute Nucleated RBC (0.0-0.012) X10*3/uL Nucleated RBC % (auto) (0.0-0.2) /100WBC Sodium (135-145) mmol/L Potassium (3.3-5.1) mmol/L Chloride (96-108) mmol/L Carbon Dioxide (22-29) mmol/L Anion Gap (12-20) BUN (9-16) mg/dL Creatinine (0.5-1.4) mg/dL Estim Creat Clear Calc Estimated GFR Random Glucose (60-115) mg/dL Lactic Acid 1.0 (0.5-2.0) mmol/L Calcium (8.4-10.2) mg/dL Magnesium (1.6-2.6) mg/dL Total Bilirubin (0.0-1.0) mg/dL AST (5-37) U/L ALT (0-40) U/L Alkaline Phosphatase (39-117) U/L Troponin I High Sens 37.4 H (<3.5-35.0) ng/L Total Protein (6.5-8.0) g/dL Albumin (3.5-5.0) g/dL Influenza Type A (PCR) NEGATIVE (Negative) Influenza Type B (PCR) NEGATIVE (Negative) RSV RNA Qual (PCR) NEGATIVE (Negative) SARS-CoV-2 RNA (RT-PCR) POSITIVE A (Negative) Imaging Data Chest x-ray: Attestation: I personally reviewed and interpreted this imaging study as follows: My impression: Bilateral infiltrates. Radiologist's impression: EXAMINATION: XR CHEST CLINICAL INFORMATION: Nausea, vomiting COMPARISON: 11/29/2020 TECHNIQUE: Frontal view of the chest was obtained. FINDINGS: Bilateral areas of opacity consistent with infiltrates. Most noted in the mid to lower lung zones. There is no effusion. The cardiac silhouette does not appear enlarged. XR/XR chest 1V IMPRESSION: Bilateral infiltrates Dictated By: Michael Enamorado MD Signed By: Electronically signed by Michael Enamorado MD 02/21/22 1650 ECG Data Attestation: I personally reviewed and interpreted this ECG as follows: Prior ECG tracings: available for review Interpretation: Vent. Rate: 056 BPM ? ? Atrial Rate: 056 BPM P-R Int: 178 ms? QRS Dur: 094 ms QT Int: 536 ms ? ? ? P-R-T Axes: 057 020 047 degrees QTc Int: 517 ms ? Sinus bradycardia Prolonged QT Abnormal ECG When compared with ECG of 01-AUG-2020 09:33, No significant change was found DD/ [id number] Critical Care Time Critical Care Time Critical Care Time: Yes Total Critical Care Time: 30 Attestation: I spent 30 minutes of Critical Care Time with this patient. This does not include time spent on separately reported billable procedures. Discharge Plan Discharge Clinical Impression: COVID-19, Hypoxia, CHANTE (acute kidney injury), Pneumonia Patient Disposition: Admitted As Inpatient Prescriptions: No Action mirtazapine 7.5 mg tablet 7.5 mg PO BEDTIME Qty: 90 2RF clopidogrel [Plavix] 75 mg tablet 75 mg PO DAILY Qty: 90 2RF metoprolol succinate 100 mg tablet extended release 24 hr 100 mg PO DAILY Qty: 90 2RF Protocol: Hold for SBP/HR < HOLD for SBP < : 90 HOLD for HR < : 60 amlodipine 10 mg tablet 10 mg PO DAILY 90 Days Qty: 90 3RF metformin 500 mg tablet 500 mg PO BIDWM Qty: 180 2RF atorvastatin 10 mg tablet 10 mg PO BEDTIME Qty: 90 0RF clotrimazole 1 % cream 1 appl topical BID 28 Days Qty: 45 1RF Rx Instructions: apply to left foot toenails levothyroxine [Synthroid] 25 mcg tablet 25 mcg PO DAILY@0600 cholecalciferol (vitamin D3) 25 mcg (1,000 unit) capsule 25 mcg PO DAILY Eliquis 5 mg tablet 5 mg PO BID Qty: 60 0RF amiodarone 200 mg tablet 200 mg PO DAILY Qty: 30 0RF timolol maleate 0.5 % drops 1 drp ophthalmic-Left DAILY Print Language: Vincentian
--- NOTE | 2022-02-21 15:37 | ECG_ITS ---
Test Reason : PNEUMONIA Blood Pressure : / mmHG Vent. Rate : 056 BPM Atrial Rate : 056 BPM P-R Int : 178 ms QRS Dur : 094 ms QT Int : 536 ms P-R-T Axes : 057 020 047 degrees QTc Int : 517 ms Sinus bradycardia Prolonged QT Abnormal ECG When compared with ECG of 01-AUG-2020 09:33, No significant change was found Referred By: Carly Watts Electronically Signed By:MARJ MARTIN MD
[2022-02-21] MEDS: ondansetron HCL 4 MG/2 ML VIAL IVPUSH (16:25)
[2022-02-21] MEDS: 0.9 % Sodium Chloride 1,000 ML 999 ML IV ×2 (16:28→17:48)
[2022-02-21 16:32] LABS: MANUAL DIFF FLAG NO
[2022-02-21 16:39] VITALS: BP 118/46; PULSE 53; RESP 18; O2SAT 93
[2022-02-21 16:43] LABS: Basophils Percent Auto 0.4 % (0-2); Hemoglobin 10.7 g/dl (14.0-18.0); Imm Gran Abs Auto 0.04 X10*3/uL (0.00-0.03); Imm Gran Pct Auto 0.8 % (0.0-0.4); Lymphocytes Absolute Auto 0.6 X10*3/uL (1.2-4.9); Mean Corpuscular HGB Conc 32.4 g/dl (31.0-36.0); Mean Corpuscular Volume 86.4 fL (80.0-98.0); Mean Platelet Volume 11.5 fL (9.4-12.4); Monocytes Absolute Auto 0.3 X10*3/uL (0.1-1.2); Monocytes Percent Auto 5.3 % (2-11); Neutrophils Absolute Auto 4.4 x10*3/uL (2.0-8.3); Neutrophils Percent Auto 82.5 % (45-73); Platelet Count 209 X10*3/uL (160-400); Red Blood Count 3.82 X10*6/uL (4.60-5.80); Red Cell Distribution Width 16.6 % (11.0-16.0); White Blood Count 5.3 X10*3/uL (4.8-10.8)
[2022-02-21 16:51] LABS: Alanine Aminotransferase 82 U/L (0-40); Albumin Level 2.9 g/dL (3.5-5.0); Alkaline Phosphatase 113 U/L (39-117); Anion Gap 18 (12-20); Aspartate Amino Transferase 163 U/L (5-37); Bilirubin Total 0.7 mg/dL (0.0-1.0); Blood Urea Nitrogen 34 mg/dL (9-16); Calcium 7.9 mg/dL (8.4-10.2); Carbon Dioxide 18 mmol/L (22-29); Chloride 105 mmol/L (96-108); Creatinine Clr Calc Pharmacy 32.5; Estimated Glomerular Filt Rate 35; Glucose Random 76 mg/dL (60-115); Magnesium 2.2 mg/dL (1.6-2.6); Potassium 4.2 mmol/L (3.3-5.1); Sodium 137 mmol/L (135-145)
[2022-02-21 16:56] LABS: Troponin-I High Sensitivity 39.4 ng/L (<3.5-35.0)
[2022-02-21 17:14] LABS: Influenza A PCR NEGATIVE (Negative); Influenza B PCR NEGATIVE (Negative); Resp Syncy Virus RNA Qual PCR NEGATIVE (Negative); SARS COV2 PCR INHOUSE POSITIVE (Negative)
[2022-02-21] MEDS: cefTRIAXone sodium 2 GM in 0.9 % Sodium Chloride 50 ML IV (17:37)
[2022-02-21] MEDS: dexAMETHasone sod phosphate 10 MG/ML VIAL IVPUSH (17:38)
[2022-02-21] MEDS: Albuterol/Iprat 2.5/0.5MG 3 ML AMPUL.NEB INHALE (17:57)
[2022-02-21 18:05] LABS: Troponin-I High Sensitivity 37.4 ng/L (<3.5-35.0)
--- NOTE | 2022-02-21 18:33 | PHA.MEDREC ---
Pharmacy Consult ? Medication Reconciliation Pharmacy has completed the medication reconciliation. Patient poor historian of medications. Called Cathryn ([phone]) and confirmed meds.
[2022-02-21] MEDS: Magnesium Sulfate/D5W 1 GM/100 ML PIGGYBACK IV (19:22)
[2022-02-21 19:47] VITALS: BP 124/82; PULSE 62; RESP 12; TEMP 35.8; O2SAT 100
[2022-02-21 20:12] LABS: B Type Natriuretic Peptide 442 pg/mL (<100)
[2022-02-21] MEDS: Lactated Ringers 1,000 ML 100 ML IVCONT (20:23)
[2022-02-21 20:30] LABS: Procalcitonin 0.42 ng/mL
[2022-02-21 20:31] LABS: Glucose, Whole Blood 83 mg/dL (60-115)
[2022-02-21] MEDS: Mirtazapine 7.5 MG TABLET PO (20:41)
[2022-02-21] MEDS: Atorvastatin Calcium 10 MG TABLET PO (20:41)
[2022-02-21] MEDS: Apixaban 5 MG TABLET PO (20:41)
[2022-02-21 22:10] VITALS: BP 127/61; PULSE 50; RESP 17; O2SAT 93
[2022-02-21] MEDS: Clotrimazole 1 % Cream 15 GM TUBE 1 APPL TOPICAL (23:03)
[2022-02-22] VITALS (11 sets, daily range): BP systolic 106–144; BP diastolic 49–86; PULSE 47–82; RESP 13–22; TEMP 35.9–36.6; O2SAT 86–99
[2022-02-22] MEDS: Levothyroxine Sodium 25 MCG TABLET PO (05:49)
[2022-02-22] MEDS: Lactated Ringers 1,000 ML 100 ML IVCONT (05:50)
--- NOTE | 2022-02-22 05:53 | PC.NURSE ---
Took over care at 3am, medicated pt per jun. Reposition pt for comfort, urinal at the bedside and warm blanket give. no sign of respiratory distress. pt denies any pain or discomfort at this time. Will continue to monitor.
--- NOTE | 2022-02-22 06:35 | P.HPHOSP_ITS ---
History of Present Illness Date of Service: 02/21/22 Chief Complaint: Shortness of breath 76-year-old male past medical history of diabetes, history of asthma, HLD, HTN, history of osteomyelitis of the left foot, history of peripheral vascular disease, who presents to the hospital with complaints of shortness of breath since Tuesday. He is complaining of a cough, sputum production, as well as generalized weakness, nausea, no vomiting. No abdominal pain, 1 episode of diarrhea, no urinary symptoms and no lower extremity edema. Patient is COVID positive, when I asked him about his COVID vaccine, he states that he does not remember. He does not use oxygen at home. Patient denies any orthopnea or PND. On arrival to the ED patient hemodynamically stable found to be hypoxic, when I saw the patient he was on 2 L of oxygen satting 86%. Labs are significant for WBC count of 5.3, hemoglobin of 10.7, medical 33, creatinine of 1.87 with a baseline of 1.25, troponin of 39 decreased 37, BNP of 442, COVID-19 positive Chest x-ray shows bilateral opacity consistent with infiltrate Review of Systems Review of Systems: Yes all other systems are reviewed and are negative [facility] Medical History Abscess of right foot Anxiety and depression Asthma Atrial fibrillation Atrial fibrillation with rapid ventricular response Avascular necrosis of bone of hip Cellulitis Coronary artery disease Diabetic foot ulcer Diabetic nephropathy Diabetic neuropathy Diverticular disease DMII (diabetes mellitus, type 2) Hypercholesterolemia Hypertension Open wound Osteomyelitis of foot Osteomyelitis of foot Osteomyelitis of toe PAD (peripheral artery disease) Preoperative cardiovascular examination Thrombocytopenia Tobacco abuse Tubular adenoma of colon Type 2 diabetes mellitus with diabetic foot infection Type 2 diabetes mellitus with hyperglycemia Type 2 diabetes mellitus with peripheral artery disease Vitamin D deficiency Family History Father Diabetes Hypertension CVD (cardiovascular disease) Stroke Mother CVD (cardiovascular disease) Hypertension Cancer Sister No problems noted. Son Stroke Surgical History Amputated toe of right foot Amputation finger History of cataract surgery History of surgery Social History Household Members: Spouse Household Members Other:: 4 Housing: House Do you presently have visiting nurse or other home services: Yes Alcohol intake: former Patient Tobacco Use Status: Former Tobacco user Quit Date: 4 months ago Tobacco use type: Cigarette Cigarettes Per Day: 7 Years Smoked: 09/2020 stopped Smoked in Last 30 Days: No e-Cigarette/Vaping Use: Never Used Second Hand Smoke Exposure: No Use of substances other than those prescribed or required for medical reasons: No Advance Directives: Yes Advance Directives on File: Yes Advance Directives Date on File: 07/24/20 service: No Current occupational status: retired Cognitive needs: No Hearing needs: No Vision needs: Yes Meds Allergies Allergy/AdvReac Type Severity Reaction Status Date / Time No Known Allergies Allergy Mild Verified 12/30/21 09:11 Active Medications: Current Medications Acetaminophen (Acetaminophen 325 Mg Tablet) 650 mg PO Q6H PRN PRN Reason: Pain, Mild (Pain Scale 1-3) Amiodarone HCl (Amiodarone Hcl 200 Mg Tablet) 200 mg PO DAILY [facility] Amlodipine Besylate (Amlodipine Besylate 10 Mg Tablet) 10 mg PO DAILY [facility]; Protocol Apixaban (Apixaban 5 Mg Tablet) 5 mg PO BID [facility] Last Admin: 02/21/22 20:41 Dose: 5 mg Atorvastatin Calcium (Atorvastatin Calcium 10 Mg Tablet) 10 mg PO BEDTIME [facility] Last Admin: 02/21/22 20:41 Dose: 10 mg Clopidogrel Bisulfate (Clopidogrel Bisulfate 75 Mg Tablet) 75 mg PO DAILY [facility] Clotrimazole (Clotrimazole 1 % Cream 15 Gm Tube) 1 appl TOPICAL BID [facility]; Protocol Last Admin: 02/21/22 23:03 Dose: 1 appl Dexamethasone Sodium Phosphate (Dexamethasone Sod Phosphate 4 Mg/Ml Vial) 6 mg IVPUSH DAILY [facility] Dextrose (Dextrose 50 % 25 Gm/50 Ml Syringe) 25 gm IVPUSH Q15M PRN; Protocol PRN Reason: per Hypoglycemia Standing Ord. Docusate Sodium (Docusate Sodium 100 Mg Capsule) 100 mg PO DAILY PRN PRN Reason: Constipation Glucose (Glucose Gel 15 Gm Gel..Gram.) 15 gm PO Q15M PRN; Protocol PRN Reason: per Hypoglycemia Standing Ord. Lactated Ringer's (Lr) 1,000 mls @ 100 mls/hr IVCONT .Q10H [facility] Last Admin: 02/22/22 05:50 Dose: 100 mls/hr Insulin Human Lispro (Insulin Lispro 100 Unit/Ml 3 Ml Vial) 0 unit SUBCUT QIDACHS [facility]; Protocol Last Admin: 02/21/22 20:44 Dose: Not Given Levothyroxine Sodium (Levothyroxine Sodium 25 Mcg Tablet) 25 mcg PO DAILY@0600 [facility] Last Admin: 02/22/22 05:49 Dose: 25 mcg Metoprolol Succinate (Metoprolol Succinate Er 100 Mg Tab.Er.24h) 100 mg PO DAILY [facility]; Protocol Mirtazapine (Mirtazapine 7.5 Mg Tablet) 7.5 mg PO BEDTIME [facility] Last Admin: 02/21/22 20:41 Dose: 7.5 mg Ondansetron HCl (Ondansetron Hcl 4 Mg/2 Ml Vial) 4 mg IVPUSH Q8H PRN PRN Reason: Nausea and Vomiting Pharmacy Consult (Consult Rx Perform Med Rec) 1 each MISCELLANE ONCE PRN PRN Reason: Consult order Sodium Chloride (0.9 % Sodium Chloride Flush 3 Ml Syringe) 3 ml IVFLUSH QSHIFT [facility] Last Admin: 02/21/22 23:09 Dose: Not Given Timolol Maleate (Timolol Maleate 0.5 % Oph [place] 5 Ml Drbtl) 1 drop EYE-LEFT DAILY [facility] Vitamin D (Cholecalciferol (Vitamin D3) 25 Mcg Tablet) 25 mcg PO DAILY [facility] Home Medications Medication Instructions Recorded Confirmed Last Taken Type cholecalciferol (vitamin D3) 25 25 mcg PO DAILY 04/14/20 02/21/22 02/21/22 History mcg (1,000 unit) capsule timolol maleate 0.5 % eye drops 1 drp ophthalmic-Left DAILY 08/21/20 02/21/22 02/21/22 History levothyroxine 25 mcg tablet 25 mcg PO DAILY@0600 02/21/22 02/21/22 02/20/22 History (Synthroid) Physical Exam Vital Signs and Narrative: Vital Signs: Last Vital Signs Temp 97.6 F 02/22/22 05:52 Pulse 47 L 02/22/22 05:52 Resp 16 02/22/22 05:52 BP 112/59 L 02/22/22 05:52 Pulse Ox 91 L 02/22/22 05:52 O2 Del Method 02/22/22 05:52 O2 Flow Rate 6 02/22/22 05:52 Oxygen Flow Rate 3 02/21/22 14:56 BMI result Body Mass Index 23.1 Const: General: cooperative and no acute distress Orientation/consciousness: patient oriented x3 Eyes: General: appearance normal, both eyes and all related structures Resp: Other: Crackles bilaterally Effort & Inspection: normal respiratory effort Cardio: Rate: regular rate Rhythm: regular rhythm GI: Palpation (GI): Soft to palpation Auscultation: normal bowel sounds Skin: General skin exam: no rashes or lesions noted Neuro: General: patient oriented x3 Cognition (Neuro): normal cognition Extrem: General: Yes normal to inspection and Yes no pedal edema Results Labs CBC and Chem 7: 02/21/22 16:29 02/21/22 16:29 Labs: Laboratory Results - last 24 hr 02/21/22 02/21/22 02/21/22 16:29 16:29 16:29 MCV 86.4 MCH 28.0 MCHC 32.4 RDW 16.6 H Plt Count 209 MPV 11.5 Immature Gran % (Auto) 0.8 H Neut % (Auto) 82.5 H Lymph % (Auto) 11.0 L [place] % (Auto) 5.3 Eos % (Auto) 0.0 Baso % (Auto) 0.4 Lymph # (Auto) 0.6 L [place] # (Auto) 0.3 Eos # (Auto) 0.0 Baso # (Auto) 0.0 Abs Immat Gran (auto) 0.04 H Absolute Neuts (auto) 4.4 Absolute Nucleated RBC 0.000 Nucleated RBC % (auto) 0.0 Anion Gap 18 Estim Creat Clear Calc 32.5 Estimated GFR 35 POC Glucose Random Glucose 76 Lactic Acid Calcium 7.9 L D Magnesium 2.2 Total Bilirubin 0.7 AST 163 H ALT 82 H Alkaline Phosphatase 113 Troponin I High Sens 39.4 H B-Natriuretic Peptide Total Protein 6.0 L Albumin 2.9 L Procalcitonin Influenza Type A (PCR) Influenza Type B (PCR) RSV RNA Qual (PCR) SARS-CoV-2 RNA (RT-PCR) 02/21/22 02/21/22 02/21/22 16:29 16:32 17:33 MCV MCH MCHC RDW Plt Count MPV Immature Gran % (Auto) Neut % (Auto) Lymph % (Auto) [place] % (Auto) Eos % (Auto) Baso % (Auto) Lymph # (Auto) [place] # (Auto) Eos # (Auto) Baso # (Auto) Abs Immat Gran (auto) Absolute Neuts (auto) Absolute Nucleated RBC Nucleated RBC % (auto) Anion Gap Estim Creat Clear Calc Estimated GFR POC Glucose Random Glucose Lactic Acid 1.0 Calcium Magnesium Total Bilirubin AST ALT Alkaline Phosphatase Troponin I High Sens B-Natriuretic Peptide Total Protein Albumin Procalcitonin 0.42 Influenza Type A (PCR) NEGATIVE Influenza Type B (PCR) NEGATIVE RSV RNA Qual (PCR) NEGATIVE SARS-CoV-2 RNA (RT-PCR) POSITIVE A 02/21/22 02/21/22 17:33 20:26 MCV MCH MCHC RDW Plt Count MPV Immature Gran % (Auto) Neut % (Auto) Lymph % (Auto) [place] % (Auto) Eos % (Auto) Baso % (Auto) Lymph # (Auto) [place] # (Auto) Eos # (Auto) Baso # (Auto) Abs Immat Gran (auto) Absolute Neuts (auto) Absolute Nucleated RBC Nucleated RBC % (auto) Anion Gap Estim Creat Clear Calc Estimated GFR POC Glucose 83 Random Glucose Lactic Acid Calcium Magnesium Total Bilirubin AST ALT Alkaline Phosphatase Troponin I High Sens 37.4 H B-Natriuretic Peptide 442 H Total Protein Albumin Procalcitonin Influenza Type A (PCR) Influenza Type B (PCR) RSV RNA Qual (PCR) SARS-CoV-2 RNA (RT-PCR) Imaging Radiologist's Impressions: Impressions Chest X-Ray 02/21/22 16:10 IMPRESSION: Bilateral infiltrates Assessment and Plan (1) Acute respiratory failure with hypoxia: Status: Acute (2) COVID-19: Status: Acute (3) Community acquired pneumonia: Status: Acute (4) CHANTE (acute kidney injury): Status: Acute (5) Elevated troponin: Status: Acute Plan 76-year-old male with past medical history of diabetes, HTN, HLD, CAD, peripheral vascular disease, and paroxysmal AFib on apixaban presents to the hospital with complaints of shortness of breath # acute hypoxic respiratory failure - likely secondary to COVID infection superimposed by pneumonia - chest x-ray finding as above - has slightly elevated procalcitonin - will treat with IV antibiotics - continue O2 as required - monitor respiratory status # COVID-19 infection - patient does not remember if he was ever vaccinated against COVID-19 - will treat with Decadron 6 mg daily - monitor respiratory status # community-acquired pneumonia - likely multifactorial viral with superimposed bacterial infection - will treat with IV antibiotics - follow cultures - monitor O2 level # CHANTE - likely prerenal - will treat with IV fluids - follow BMP - monitor volume status # elevated troponin - likely type 2 in the setting of hypoxia - denies any chest pain - no EKG changes suggestive of ACS -monitor # slightly elevated BNP - patient denies any orthopnea, no PND, has no evidence of lower extremity edema, no clinical evidence of CHF or volume overload - monitor respiratory status, if O2 requirements increase, consider Lasix # diabetes - low-dose sinus scale insulin - hold oral antihyperglycemics # paroxysmal AFib - continue Eliquis and metoprolol # history of PAD - continue Plavix # hypothyroidism - continue levothyroxine DVT prophylaxis: Eliquis Given patient's O2 requirements, in the setting of acute COVID infection patient requirement of 2 night hospital stay for further management and evaluation Quality Stroke Does the patient have a stroke diagnosis?: No VTE Prior VTE?: No VTE Risk Level:: Medical - moderate - high VTE Device Contraindication: Treatment Not Indicated VTE Drug Contraindication: N/A - Med Ordered
--- NOTE | 2022-02-22 06:57 | PM.EVENT ---
Event Note Date of Service: 02/22/22 Event Note: pt noted to have sig bradycardia while sleeping with HR dropping to mid 40s. at this time will hold metoprolol, reevaluate dose prior to discharge
[2022-02-22 07:33] LABS: Glucose, Whole Blood 110 mg/dL (60-115)
[2022-02-22] MEDS: Azithromycin 500 MG in 0.9 % Sodium Chloride 250 ML 125 MG IV (08:44)
[2022-02-22 08:54] LABS: Anion Gap 20 (12-20); Blood Urea Nitrogen 32 mg/dL (9-16); Calcium 7.8 mg/dL (8.4-10.2); Carbon Dioxide 17 mmol/L (22-29); Chloride 105 mmol/L (96-108); Creatinine Clr Calc Pharmacy 37.5; Estimated Glomerular Filt Rate 41; Glucose Random 173 mg/dL (60-115); Potassium 3.9 mmol/L (3.3-5.1); Sodium 138 mmol/L (135-145)
--- NOTE | 2022-02-22 08:59 | PC.NURSE ---
PT PLACED ON THE OXYMASK TO ATTEMPT TO IMPROVE O2 SAT >90% HE WAS ABLE TO EAT BREAKFAST.
[2022-02-22] MEDS: dexAMETHasone sod phosphate 4 MG/ML VIAL 6 MG IVPUSH (09:35)
[2022-02-22] MEDS: Cholecalciferol (Vitamin D3) 25 MCG TABLET PO (09:35)
[2022-02-22] MEDS: Clotrimazole 1 % Cream 15 GM TUBE 1 APPL TOPICAL ×2 (09:35→20:11)
[2022-02-22] MEDS: Apixaban 5 MG TABLET PO ×2 (09:36→20:10)
[2022-02-22] MEDS: Amiodarone HCL 200 MG TABLET PO (09:36)
[2022-02-22] MEDS: Clopidogrel Bisulfate 75 MG TABLET PO (09:36)
[2022-02-22] MEDS: amLODIPine Besylate 10 MG TABLET PO (09:37)
--- NOTE | 2022-02-22 09:58 | PC.NURSE ---
PT SITTING IN BED AND OFFERS NO COMPLAINTS- HE WAS MEDICATED CHARTED. RESP ARE CONTROLLED BUT HE CONTINUES TO REQUIRE O2 SUPPORT BY OXYMASK.
[2022-02-22] MEDS: timoloL maleate 0.5 % Oph Sol 5 ML DRBTL 1 DROP EYE-LEFT (10:43)
--- NOTE | 2022-02-22 13:37 | P.PNIM_ITS ---
Subjective Subjective Date of Service: 02/22/22 Interval History: the patient was seen and evaluated this morning Laying in bed, feels better but still feeling dyspneic Denies any fever, chills but reports weakness and dyspnea No reported other overnight events. Systemic review: No fever, chills but has generalized weakness No chest pain, palpitation Dyspnea on exertion and coughing No abdominal pain, nausea or vomiting No urinary symptoms No reported rash Physical Exam Vital Signs: Vital Signs: Last Vital Signs Temp 97.4 F 02/22/22 10:00 Pulse 82 02/22/22 10:00 Resp 18 02/22/22 10:00 BP 126/84 02/22/22 10:00 Pulse Ox 98 02/22/22 10:00 O2 Del Method 02/22/22 10:00 O2 Flow Rate 6 02/22/22 08:50 Oxygen Flow Rate 3 02/21/22 14:56 BMI result Body Mass Index 23.1 Const: Other: Constitutional : Awake, interactive, in mild respiratory distress Neck : Normal inspection, Supple Cardiovascular : RRR, no JVP, no lower extremity edema Respiratory : good bilateral air entry, bilateral basal crackles with rhonchi, on oxygen supplement Gastrointestinal: soft, lax, Normal bowel sounds, Non tender Skin : Warm, Dry Neurological : Alert & oriented x3, No focal deficit Objective Data Active Medications Acetaminophen (Acetaminophen 325 Mg Tablet) 650 mg PO Q6H PRN PRN Reason: Pain, Mild (Pain Scale 1-3) Amiodarone HCl (Amiodarone Hcl 200 Mg Tablet) 200 mg PO DAILY [facility] Last Admin: 02/22/22 09:36 Dose: 200 mg Documented By: RAMSES Amlodipine Besylate (Amlodipine Besylate 10 Mg Tablet) 10 mg PO DAILY [facility]; Protocol Last Admin: 02/22/22 09:37 Dose: 10 mg Documented By: RAMSES Apixaban (Apixaban 5 Mg Tablet) 5 mg PO BID [facility] Last Admin: 02/22/22 09:36 Dose: 5 mg Documented By: RAMSES Atorvastatin Calcium (Atorvastatin Calcium 10 Mg Tablet) 10 mg PO BEDTIME [facility] Last Admin: 02/21/22 20:41 Dose: 10 mg Documented By: JOSE ELIAS Clopidogrel Bisulfate (Clopidogrel Bisulfate 75 Mg Tablet) 75 mg PO DAILY [facility] Last Admin: 02/22/22 09:36 Dose: 75 mg Documented By: RAMSES Clotrimazole (Clotrimazole 1 % Cream 15 Gm Tube) 1 appl TOPICAL BID [facility]; Protocol Last Admin: 02/22/22 09:35 Dose: 1 appl Documented By: RAMSES Dexamethasone Sodium Phosphate (Dexamethasone Sod Phosphate 4 Mg/Ml Vial) 6 mg IVPUSH DAILY [facility] Last Admin: 02/22/22 09:35 Dose: 6 mg Documented By: RAMSES Dextrose (Dextrose 50 % 25 Gm/50 Ml Syringe) 25 gm IVPUSH Q15M PRN; Protocol PRN Reason: per Hypoglycemia Standing Ord. Docusate Sodium (Docusate Sodium 100 Mg Capsule) 100 mg PO DAILY PRN PRN Reason: Constipation Glucose (Glucose Gel 15 Gm Gel..Gram.) 15 gm PO Q15M PRN; Protocol PRN Reason: per Hypoglycemia Standing Ord. Lactated Ringer's (Lr) 1,000 mls @ 100 mls/hr IVCONT .Q10H [facility] Last Admin: 02/22/22 05:50 Dose: 100 mls/hr Documented By: RIVERA Azithromycin 500 mg/ Sodium (Chloride) 250 mls @ 125 mls/hr IV Q24H [facility] Last Infusion: 02/22/22 11:09 Dose: 0 mls/hr Documented By: RAMSES Ceftriaxone Sodium 1 gm/ (Sodium Chloride) 50 mls @ 100 mls/hr IV Q24H [facility] Insulin Human Lispro (Insulin Lispro 100 Unit/Ml 3 Ml Vial) 0 unit SUBCUT QIDACHS [facility]; Protocol Last Admin: 02/22/22 09:34 Dose: Not Given Documented By: RAMSES Non-Admin Reason: No Insulin Coverage Levothyroxine Sodium (Levothyroxine Sodium 25 Mcg Tablet) 25 mcg PO DAILY@0600 [facility] Last Admin: 02/22/22 05:49 Dose: 25 mcg Documented By: RIVERA Mirtazapine (Mirtazapine 7.5 Mg Tablet) 7.5 mg PO BEDTIME [facility] Last Admin: 02/21/22 20:41 Dose: 7.5 mg Documented By: JOSE ELIAS Ondansetron HCl (Ondansetron Hcl 4 Mg/2 Ml Vial) 4 mg IVPUSH Q8H PRN PRN Reason: Nausea and Vomiting Pharmacy Consult (Consult Rx Perform Med Rec) 1 each MISCELLANE ONCE PRN PRN Reason: Consult order Sodium Chloride (0.9 % Sodium Chloride Flush 3 Ml Syringe) 3 ml IVFLUSH QSHIFT [facility] Last Admin: 02/22/22 09:35 Dose: Not Given Documented By: RAMSES Non-Admin Reason: IV Running Timolol Maleate (Timolol Maleate 0.5 % Oph [place] 5 Ml Drbtl) 1 drop EYE-LEFT DAILY [facility] Last Admin: 02/22/22 10:43 Dose: 1 drop Documented By: RAMSES Vitamin D (Cholecalciferol (Vitamin D3) 25 Mcg Tablet) 25 mcg PO DAILY [facility] Last Admin: 02/22/22 09:35 Dose: 25 mcg Documented By: RAMSES Labs CBC & Chem 7: 02/21/22 16:29 02/22/22 08:27 Labs: Laboratory Results - last 24 hr 02/21/22 02/21/22 02/21/22 16:29 16:29 16:29 MCV 86.4 MCH 28.0 MCHC 32.4 RDW 16.6 H Plt Count 209 MPV 11.5 Immature Gran % (Auto) 0.8 H Neut % (Auto) 82.5 H Lymph % (Auto) 11.0 L [place] % (Auto) 5.3 Eos % (Auto) 0.0 Baso % (Auto) 0.4 Lymph # (Auto) 0.6 L [place] # (Auto) 0.3 Eos # (Auto) 0.0 Baso # (Auto) 0.0 Abs Immat Gran (auto) 0.04 H Absolute Neuts (auto) 4.4 Absolute Nucleated RBC 0.000 Nucleated RBC % (auto) 0.0 Anion Gap 18 Estim Creat Clear Calc 32.5 Estimated GFR 35 POC Glucose Random Glucose 76 Lactic Acid Calcium 7.9 L D Magnesium 2.2 Total Bilirubin 0.7 AST 163 H ALT 82 H Alkaline Phosphatase 113 Troponin I High Sens 39.4 H B-Natriuretic Peptide Total Protein 6.0 L Albumin 2.9 L Procalcitonin Influenza Type A (PCR) Influenza Type B (PCR) RSV RNA Qual (PCR) SARS-CoV-2 RNA (RT-PCR) 02/21/22 02/21/22 02/21/22 16:29 16:32 17:33 MCV MCH MCHC RDW Plt Count MPV Immature Gran % (Auto) Neut % (Auto) Lymph % (Auto) [place] % (Auto) Eos % (Auto) Baso % (Auto) Lymph # (Auto) [place] # (Auto) Eos # (Auto) Baso # (Auto) Abs Immat Gran (auto) Absolute Neuts (auto) Absolute Nucleated RBC Nucleated RBC % (auto) Anion Gap Estim Creat Clear Calc Estimated GFR POC Glucose Random Glucose Lactic Acid 1.0 Calcium Magnesium Total Bilirubin AST ALT Alkaline Phosphatase Troponin I High Sens B-Natriuretic Peptide Total Protein Albumin Procalcitonin 0.42 Influenza Type A (PCR) NEGATIVE Influenza Type B (PCR) NEGATIVE RSV RNA Qual (PCR) NEGATIVE SARS-CoV-2 RNA (RT-PCR) POSITIVE A 02/21/22 02/21/22 02/22/22 17:33 20:26 07:21 MCV MCH MCHC RDW Plt Count MPV Immature Gran % (Auto) Neut % (Auto) Lymph % (Auto) [place] % (Auto) Eos % (Auto) Baso % (Auto) Lymph # (Auto) [place] # (Auto) Eos # (Auto) Baso # (Auto) Abs Immat Gran (auto) Absolute Neuts (auto) Absolute Nucleated RBC Nucleated RBC % (auto) Anion Gap Estim Creat Clear Calc Estimated GFR POC Glucose 83 110 Random Glucose Lactic Acid Calcium Magnesium Total Bilirubin AST ALT Alkaline Phosphatase Troponin I High Sens 37.4 H B-Natriuretic Peptide 442 H Total Protein Albumin Procalcitonin Influenza Type A (PCR) Influenza Type B (PCR) RSV RNA Qual (PCR) SARS-CoV-2 RNA (RT-PCR) 02/22/22 08:27 MCV MCH MCHC RDW Plt Count MPV Immature Gran % (Auto) Neut % (Auto) Lymph % (Auto) [place] % (Auto) Eos % (Auto) Baso % (Auto) Lymph # (Auto) [place] # (Auto) Eos # (Auto) Baso # (Auto) Abs Immat Gran (auto) Absolute Neuts (auto) Absolute Nucleated RBC Nucleated RBC % (auto) Anion Gap 20 Estim Creat Clear Calc 37.5 Estimated GFR 41 POC Glucose Random Glucose 173 H D Lactic Acid Calcium 7.8 L Magnesium Total Bilirubin AST ALT Alkaline Phosphatase Troponin I High Sens B-Natriuretic Peptide Total Protein Albumin Procalcitonin Influenza Type A (PCR) Influenza Type B (PCR) RSV RNA Qual (PCR) SARS-CoV-2 RNA (RT-PCR) Assessment and Plan (1) Community acquired pneumonia: Status: Acute (2) Elevated troponin: Status: Acute (3) COVID-19: Status: Acute (4) Acute respiratory failure with hypoxia: Status: Acute (5) CHANTE (acute kidney injury): Status: Acute Plan 76-year-old male with past medical history of diabetes, HTN, HLD, CAD, peripheral vascular disease, and paroxysmal AFib on apixaban presents to the hospital with complaints of shortness of breath # acute hypoxic respiratory failure secondary to COVID infection superimposed by pneumonia CXR showing bilateral infiltrates Continue with IV antibiotics Wean oxygen down as tolerated monitor respiratory status # COVID-19 infection Patient cannot remember if he was ever vaccinated against COVID-19 Continue Decadron 6 mg daily (05/28) ID to evaluate Start remdesivir per ID recommendations # community-acquired pneumonia Concern over superimposed bacterial infection Continue with IV antibiotics Pending cultures # CHANTE on CKD stage 3 likely prerenal Continue IV fluids follow BMP Monitor intake and output # elevated troponin likely type 2 in the setting of hypoxia with no chest pain no EKG changes suggestive of ACS Repeat EKG for any chest pain # diabetes low-dose sinus scale insulin hold oral antihyperglycemics # paroxysmal AFib continue Eliquis and metoprolol # history of PAD continue Plavix # hypothyroidism continue levothyroxine DVT prophylaxis: Eliquis Given patient's O2 requirements, in the setting of acute COVID infection inpatient requirement of overnight hospital stay for further management and evaluation Quality Stroke Does the patient have a stroke diagnosis?: No VTE Prior VTE?: No VTE Risk Level:: Medical - moderate - high VTE Device Contraindication: Treatment Not Indicated VTE Drug Contraindication: N/A - Med Ordered
[2022-02-22 13:56] LABS: Glucose, Whole Blood 148 mg/dL (60-115)
--- NOTE | 2022-02-22 14:04 | PC.NURSE ---
PT HAVING INCREASED DIFF WITH MOBILITY IN ROOM . HE CONTINUES TO GET HYPOXIC AND IS REQUIRING SUPPLEMENTAL OXYGEN.
--- NOTE | 2022-02-22 14:33 | PC.RT ---
Addendum entered by Robb Young, RT 02/22/22 14:36: Sats were 70's on 6 liter jeong. Increased 02 to 12 liters and sats now at 93%. will let MD aware of the pt current hypoxic state. pt having no sob or difficulty breathing. RR 17 HR 50 BP 144/65. Original Note: Called to ER bed 3 to see pt due to decreased Sats in the 70's
[2022-02-22 15:22] LABS: Venous Blood Gas Refer to POC result
[2022-02-22 15:24] LABS: VBG Base Excess -5.1 mmol/L; VBG HCO3 20 mmol/L (22-26); VBG pCO2 38 mmHg; VBG pH 7.32 (7.32-7.43); VBG pO2 34 mmHg
[2022-02-22] MEDS: Furosemide 20 MG/2 ML VIAL IVPUSH (15:29)
--- NOTE | 2022-02-22 16:16 | P.CNID_ITS ---
History of Present Illness Data of Consult Service Date: 02/22/22 Requesting physician: Dewey Reyna Primary Care Provider: Jayla Murrieta MD HPI Reason for consult: shortness of breath ,COVID He presents with shortness of breath and cough. He has oxygen saturation 90% six liters. CXR no lobar ,diffuse viral appearing infiltrates Procalcitonin .42 He has no productive sputum. Review of Systems Review of Systems: Yes all other systems are reviewed and are negative [facility] Past Medical History Medical History Abscess of right foot Anxiety and depression Asthma Atrial fibrillation Atrial fibrillation with rapid ventricular response Avascular necrosis of bone of hip Cellulitis Coronary artery disease Diabetic foot ulcer Diabetic nephropathy Diabetic neuropathy Diverticular disease DMII (diabetes mellitus, type 2) Hypercholesterolemia Hypertension Open wound Osteomyelitis of foot Osteomyelitis of foot Osteomyelitis of toe PAD (peripheral artery disease) Preoperative cardiovascular examination Thrombocytopenia Tobacco abuse Tubular adenoma of colon Type 2 diabetes mellitus with diabetic foot infection Type 2 diabetes mellitus with hyperglycemia Type 2 diabetes mellitus with peripheral artery disease Vitamin D deficiency Family History Family History Father Diabetes Hypertension CVD (cardiovascular disease) Stroke Mother CVD (cardiovascular disease) Hypertension Cancer Sister No problems noted. Son Stroke Family history: reviewed and not pertinent Surgical History Surgical History Amputated toe of right foot Amputation finger History of cataract surgery History of surgery Social History Social History Household Members: Spouse Household Members Other:: 4 Housing: House Do you presently have visiting nurse or other home services: Yes Alcohol intake: former Patient Tobacco Use Status: Former Tobacco user Quit Date: 4 months ago Tobacco use type: Cigarette Cigarettes Per Day: 7 Years Smoked: 09/2020 stopped Smoked in Last 30 Days: No e-Cigarette/Vaping Use: Never Used Second Hand Smoke Exposure: No Use of substances other than those prescribed or required for medical reasons: No Advance Directives: Yes Advance Directives on File: Yes Advance Directives Date on File: 07/24/20 service: No Current occupational status: retired Cognitive needs: No Hearing needs: No Vision needs: Yes Meds Allergies Allergy/AdvReac Type Severity Reaction Status Date / Time No Known Allergies Allergy Mild Verified 12/30/21 09:11 Active Medications: Current Medications Acetaminophen (Acetaminophen 325 Mg Tablet) 650 mg PO Q6H PRN PRN Reason: Pain, Mild (Pain Scale 1-3) Amiodarone HCl (Amiodarone Hcl 200 Mg Tablet) 200 mg PO DAILY [facility] Last Admin: 02/22/22 09:36 Dose: 200 mg Amlodipine Besylate (Amlodipine Besylate 10 Mg Tablet) 10 mg PO DAILY [facility]; Protocol Last Admin: 02/22/22 09:37 Dose: 10 mg Apixaban (Apixaban 5 Mg Tablet) 5 mg PO BID [facility] Last Admin: 02/22/22 09:36 Dose: 5 mg Atorvastatin Calcium (Atorvastatin Calcium 10 Mg Tablet) 10 mg PO BEDTIME [facility] Last Admin: 02/21/22 20:41 Dose: 10 mg Clopidogrel Bisulfate (Clopidogrel Bisulfate 75 Mg Tablet) 75 mg PO DAILY [facility] Last Admin: 02/22/22 09:36 Dose: 75 mg Clotrimazole (Clotrimazole 1 % Cream 15 Gm Tube) 1 appl TOPICAL BID [facility]; Protocol Last Admin: 02/22/22 09:35 Dose: 1 appl Dexamethasone Sodium Phosphate (Dexamethasone Sod Phosphate 4 Mg/Ml Vial) 6 mg IVPUSH DAILY [facility] Last Admin: 02/22/22 09:35 Dose: 6 mg Dextrose (Dextrose 50 % 25 Gm/50 Ml Syringe) 25 gm IVPUSH Q15M PRN; Protocol PRN Reason: per Hypoglycemia Standing Ord. Docusate Sodium (Docusate Sodium 100 Mg Capsule) 100 mg PO DAILY PRN PRN Reason: Constipation Glucose (Glucose Gel 15 Gm Gel..Gram.) 15 gm PO Q15M PRN; Protocol PRN Reason: per Hypoglycemia Standing Ord. Azithromycin 500 mg/ Sodium (Chloride) 250 mls @ 125 mls/hr IV Q24H [facility] Last Infusion: 02/22/22 11:09 Dose: Infused Ceftriaxone Sodium 1 gm/ (Sodium Chloride) 50 mls @ 100 mls/hr IV Q24H [facility] Remdesivir 200 mg/ Sodium (Chloride) 210 mls @ 105 mls/hr IV ONCE ONE Stop: 02/22/22 17:59 Remdesivir 100 mg/ Sodium (Chloride) 230 mls @ 115 mls/hr IV Q24H [facility] Stop: 02/24/22 17:59 Insulin Human Lispro (Insulin Lispro 100 Unit/Ml 3 Ml Vial) 0 unit SUBCUT QIDACHS [facility]; Protocol Last Admin: 02/22/22 14:00 Dose: Not Given Levothyroxine Sodium (Levothyroxine Sodium 25 Mcg Tablet) 25 mcg PO DAILY@0600 [facility] Last Admin: 02/22/22 05:49 Dose: 25 mcg Mirtazapine (Mirtazapine 7.5 Mg Tablet) 7.5 mg PO BEDTIME [facility] Last Admin: 02/21/22 20:41 Dose: 7.5 mg Ondansetron HCl (Ondansetron Hcl 4 Mg/2 Ml Vial) 4 mg IVPUSH Q8H PRN PRN Reason: Nausea and Vomiting Pharmacy Consult (Consult Rx Perform Med Rec) 1 each MISCELLANE ONCE PRN PRN Reason: Consult order Sodium Chloride (0.9 % Sodium Chloride Flush 3 Ml Syringe) 3 ml IVFLUSH QSHIFT [facility] Last Admin: 02/22/22 09:35 Dose: Not Given Timolol Maleate (Timolol Maleate 0.5 % Oph Spring 5 Ml Drbtl) 1 drop EYE-LEFT DAILY [facility] Last Admin: 02/22/22 10:43 Dose: 1 drop Vitamin D (Cholecalciferol (Vitamin D3) 25 Mcg Tablet) 25 mcg PO DAILY [facility] Last Admin: 02/22/22 09:35 Dose: 25 mcg Home Medications Medication Instructions Recorded Confirmed Last Taken Type cholecalciferol (vitamin D3) 25 25 mcg PO DAILY 04/14/20 02/21/22 02/21/22 History mcg (1,000 unit) capsule timolol maleate 0.5 % eye drops 1 drp ophthalmic-Left DAILY 08/21/20 02/21/22 02/21/22 History levothyroxine 25 mcg tablet 25 mcg PO DAILY@0600 02/21/22 02/21/22 02/20/22 History (Synthroid) Physical Exam Vital Signs: Vital Signs: Last Vital Signs Temp 96.6 F L 02/22/22 14:00 Pulse 54 02/22/22 14:17 Resp 14 02/22/22 14:17 BP 144/65 H 02/22/22 14:17 Pulse Ox 89 L 02/22/22 14:17 O2 Del Method 02/22/22 14:17 O2 Flow Rate 6 02/22/22 14:17 Oxygen Flow Rate 3 02/21/22 14:56 BMI result Body Mass Index 23.1 Const: General: cooperative HEENT: Head: Yes normal to inspection Face and sinus: Yes normal facial exam Mouth: Normal oral and palatal mucosa present Teeth and gingiva: dentition normal Eyes: General: appearance normal, both eyes and all related structures Pupils: Equal, round and reactive pupils present Resp: Effort & Inspection: abnormal respiratory pattern Cardio: Rate: regular rate Rhythm: regular rhythm GI: Palpation (GI): Soft to palpation and nontender : General: Yes no CVA tenderness Back/Spine/Pelvis: Back: no CVA tenderness Skin: General skin exam: no rashes or lesions noted Neuro: General: moves all extremities Cranial nerves: Yes Equal, round and reactive pupils present Extrem: General: Yes normal to inspection Psych: Appearance: grossly normal Results Labs CBC & Chem 7: 02/21/22 16:29 02/22/22 08:27 Labs: Short CBC 02/21/22 Range/Units 16:29 WBC 5.3 (4.8-10.8) X10*3/uL Hgb 10.7 L (14.0-18.0) g/dl Hct 33.0 L D (42.0-52.0) % Plt Count 209 (160-400) X10*3/uL BMP 02/21/22 02/22/22 16:29 08:27 Sodium 137 138 Potassium 4.2 3.9 Chloride 105 105 Carbon Dioxide 18 L 17 L BUN 34 H 32 H Creatinine 1.87 H 1.62 H Calcium 7.9 L D 7.8 L Liver Function 02/21/22 Range/Units 16:29 Total Bilirubin 0.7 (0.0-1.0) mg/dL AST 163 H (5-37) U/L ALT 82 H (0-40) U/L Alkaline Phosphatase 113 (39-117) U/L Albumin 2.9 L (3.5-5.0) g/dL Assessment and Plan (1) COVID-19: Status: Acute (2) Hypoxia: Status: Acute (3) Acute respiratory failure with hypoxia: Status: Acute This presentation seems to be related to COVID He has no lobar infiltrate,productive sputum or fever indicative of bacterial pneumonia. Plan Remdesivir Dexamethasone Steroids Baricitinib if worsens No evidence bacterial pneumonia so hold antibiotics for now.
[2022-02-22] MEDS: Remdesivir 200 MG in 0.9 % Sodium Chloride 210 ML 105 MG IV (17:31)
[2022-02-22 17:54] LABS: Appearance Urine Clear; Color Urine Yellow; Glucose Urine UA Negative (Negative); Leukocyte Esterase Urine Negative (Negative); Nitrite Urine Negative (Negative); PH 5.5 (5.0-9.0); UMIC TRIGGER UACC YES; Urine Blood Small (1+) (Negative); Urine Ketones Negative (Negative); Urine Protein 100 (2+) mg/dL (Neg-Trace)
[2022-02-22 18:18] LABS: Bacteria Urine None Seen (None Seen); Granular Casts Urine Present; Hyaline Casts Urine 0-2 /LPF (0-2); RBC Urine 0-2 /HPF (0-2); Squamous Epithelial Cell Urine 0-2 /HPF (0-2); WBC Urine 0-5 /HPF (0-5)
[2022-02-22 19:33] LABS: Glucose, Whole Blood 188 mg/dL (60-115)
[2022-02-22 20:10] LABS: Glucose, Whole Blood 177 mg/dL (60-115)
[2022-02-22] MEDS: Insulin Lispro 100 UNIT/ML 3 ML VIAL SUBCUT (20:10)
[2022-02-22] MEDS: Mirtazapine 7.5 MG TABLET PO (20:10)
[2022-02-22] MEDS: Atorvastatin Calcium 10 MG TABLET PO (20:11)
[2022-02-23] VITALS (7 sets, daily range): BP systolic 99–167; BP diastolic 54–71; PULSE 64–104; RESP 17–18; TEMP 35.9–37; O2SAT 91–99; BMI 23.1
[2022-02-23] MEDS: Levothyroxine Sodium 25 MCG TABLET PO (05:49)
[2022-02-23] MEDS: 0.9 % Sodium Chloride Flush 3 ML SYRINGE IVFLUSH ×4 (05:50→22:25)
[2022-02-23 08:15] LABS: Glucose, Whole Blood 125 mg/dL (60-115)
[2022-02-23] MEDS: Apixaban 5 MG TABLET PO (08:59)
[2022-02-23] MEDS: Amiodarone HCL 200 MG TABLET PO (08:59)
[2022-02-23] MEDS: dexAMETHasone sod phosphate 4 MG/ML VIAL 6 MG IVPUSH (08:59)
[2022-02-23] MEDS: Cholecalciferol (Vitamin D3) 25 MCG TABLET PO (08:59)
[2022-02-23] MEDS: amLODIPine Besylate 10 MG TABLET PO (08:59)
[2022-02-23] MEDS: Clopidogrel Bisulfate 75 MG TABLET PO (08:59)
[2022-02-23] MEDS: Clotrimazole 1 % Cream 15 GM TUBE 1 APPL TOPICAL ×2 (08:59→22:24)
--- NOTE | 2022-02-23 08:59 | MHC.CM.PN ---
CM spoke with Patient's /HCP/Cathryn @ [phone]; Patient is Covid (+), and addressed IMM with her (original will be mailed certified letter to her and a copy has been placed on the chart). Patient lives in a house with his , Son and Granddaughter and he uses a walker to assist with mobility. Home, self care is the goal and CM has initiated and will follow for dc planning. Patient has received no Covid vax and his PCP is Dr. Dickerson Po.
[2022-02-23 10:23] LABS: Anion Gap 14 (12-20); Blood Urea Nitrogen 37 mg/dL (9-16); Calcium 8.5 mg/dL (8.4-10.2); Carbon Dioxide 21 mmol/L (22-29); Chloride 108 mmol/L (96-108); Creatinine Clr Calc Pharmacy 39.7; Estimated Glomerular Filt Rate 44; Glucose Random 147 mg/dL (60-115); Potassium 4.9 mmol/L (3.3-5.1); Sodium 138 mmol/L (135-145)
[2022-02-23 11:55] LABS: Glucose, Whole Blood 178 mg/dL (60-115)
[2022-02-23] MEDS: Insulin Lispro 100 UNIT/ML 3 ML VIAL SUBCUT ×2 (12:47→16:54)
--- NOTE | 2022-02-23 13:36 | P.PNIM_ITS ---
Subjective Subjective Date of Service: 02/23/22 Interval History: The patient was seen and evaluated this morning Laying in bed, increased oxygen requirement since yesterday to 15 L Reports feeling generally well but still having weakness and dyspnea No reported other overnight events. Systemic review: No fever, chills but has generalized weakness No chest pain, palpitation Dyspnea on exertion and coughing No abdominal pain, nausea or vomiting No urinary symptoms No reported rash Physical Exam Vital Signs: Vital Signs: Last Vital Signs Temp 98.6 F 02/23/22 11: Pulse 66 02/23/22 11:26 Resp 18 02/23/22 11:26 BP 167/70 H 02/23/22 11:26 Pulse Ox 91 L 02/23/22 11: O2 Del Method 02/23/22 11:26 O2 Flow Rate 15 02/23/22 11: Oxygen Flow Rate 3 02/21/22 14:56 BMI result Body Mass Index 23.1 Const: Other: Constitutional : Awake, interactive, in mild respiratory distress Neck : Normal inspection, Supple Cardiovascular : RRR, no JVP, no lower extremity edema Respiratory : good bilateral air entry, bilateral basal crackles with rhonchi, on oxygen supplement Gastrointestinal: soft, lax, Normal bowel sounds, Non tender Skin : Warm, Dry Neurological : Alert & oriented x3, No focal deficit Objective Data Active Medications Acetaminophen (Acetaminophen 325 Mg Tablet) 650 mg PO Q6H PRN PRN Reason: Pain, Mild (Pain Scale 1-3) Amiodarone HCl (Amiodarone Hcl 200 Mg Tablet) 200 mg PO DAILY [facility] Last Admin: 02/23/22 08:59 Dose: 200 mg Documented By: PAOLA Amlodipine Besylate (Amlodipine Besylate 10 Mg Tablet) 10 mg PO DAILY [facility]; Protocol Last Admin: 02/23/22 08:59 Dose: 10 mg Documented By: PAOLA Apixaban (Apixaban 5 Mg Tablet) 5 mg PO BID [facility] Last Admin: 02/23/22 08:59 Dose: 5 mg Documented By: PAOLA Atorvastatin Calcium (Atorvastatin Calcium 10 Mg Tablet) 10 mg PO BEDTIME [facility] Last Admin: 02/22/22 20:11 Dose: 10 mg Documented By: VALERIE Baricitinib (Baricitinib 2 Mg Tablet) 2 mg PO Q24H [facility] Stop: 03/08/22 14:01 Clopidogrel Bisulfate (Clopidogrel Bisulfate 75 Mg Tablet) 75 mg PO DAILY [facility] Last Admin: 02/23/22 08:59 Dose: 75 mg Documented By: PAOLA Clotrimazole (Clotrimazole 1 % Cream 15 Gm Tube) 1 appl TOPICAL BID [facility]; Protocol Last Admin: 02/23/22 08:59 Dose: 1 appl Documented By: PAOLA Dexamethasone Sodium Phosphate (Dexamethasone Sod Phosphate 4 Mg/Ml Vial) 6 mg IVPUSH DAILY [facility] Last Admin: 02/23/22 08:59 Dose: 6 mg Documented By: PAOLA Dextrose (Dextrose 50 % 25 Gm/50 Ml Syringe) 25 gm IVPUSH Q15M PRN; Protocol PRN Reason: per Hypoglycemia Standing Ord. Docusate Sodium (Docusate Sodium 100 Mg Capsule) 100 mg PO DAILY PRN PRN Reason: Constipation Glucose (Glucose Gel 15 Gm Gel..Gram.) 15 gm PO Q15M PRN; Protocol PRN Reason: per Hypoglycemia Standing Ord. Remdesivir 100 mg/ Sodium (Chloride) 230 mls @ 115 mls/hr IV Q24H [facility] Stop: 02/24/22 17:59 Insulin Human Lispro (Insulin Lispro 100 Unit/Ml 3 Ml Vial) 0 unit SUBCUT QIDACHS [facility]; Protocol Last Admin: 02/23/22 12:47 Dose: 2 unit Documented By: PAOLA Levothyroxine Sodium (Levothyroxine Sodium 25 Mcg Tablet) 25 mcg PO DAILY@0600 [facility] Last Admin: 02/23/22 05:49 Dose: 25 mcg Documented By: SLIM Mirtazapine (Mirtazapine 7.5 Mg Tablet) 7.5 mg PO BEDTIME [facility] Last Admin: 02/22/22 20:10 Dose: 7.5 mg Documented By: VALERIE Ondansetron HCl (Ondansetron Hcl 4 Mg/2 Ml Vial) 4 mg IVPUSH Q8H PRN PRN Reason: Nausea and Vomiting Pharmacy Consult (Consult Rx Perform Med Rec) 1 each MISCELLANE ONCE PRN PRN Reason: Consult order Sodium Chloride (0.9 % Sodium Chloride Flush 3 Ml Syringe) 3 ml IVFLUSH QSHIFT [facility] Last Admin: 02/23/22 08:59 Dose: 3 ml Documented By: PAOLA Timolol Maleate (Timolol Maleate 0.5 % Oph [place] 5 Ml Drbtl) 1 drop EYE-LEFT D AILY [facility] Last Admin: 02/23/22 10:26 Dose: Not Given Documented By: PAOLA Non-Admin Reason: unable to find med Vitamin D (Cholecalciferol (Vitamin D3) 25 Mcg Tablet) 25 mcg PO DAILY [facility] Last Admin: 02/23/22 08:59 Dose: 25 mcg Documented By: PAOLA Labs CBC & Chem 7: 02/21/22 16:29 02/23/22 07:11 Labs: Laboratory Results - last 24 hr 02/22/22 02/22/22 02/22/22 13:50 15:18 17:30 VBG pH 7.32 VBG pCO2 38 VBG pO2 34 VBG HCO3 20 L VBG O2 Saturation 44.0 VBG Base Excess -5.1 Anion Gap Estim Creat Clear Calc Estimated GFR POC Glucose 148 H Random Glucose Calcium Urine Color Yellow Urine Appearance Clear Urine pH 5.5 Ur Specific Elizabeth 1.020 Urine Protein 100 (2+) H Urine Glucose (UA) Negative Urine Ketones Negative Urine Blood Small (1+) H Urine Nitrite Negative Ur Leukocyte Esterase Negative Urine RBC 0-2 Urine WBC 0-5 Ur Squamous Epith Cells 0-2 Urine Bacteria None Seen Hyaline Casts 0-2 Granular Casts Present 02/22/22 02/22/22 02/23/22 19:29 19:47 07:11 VBG pH VBG pCO2 VBG pO2 VBG HCO3 VBG O2 Saturation VBG Base Excess Anion Gap 14 Estim Creat Clear Calc 39.7 Estimated GFR 44 POC Glucose 188 H 177 H Random Glucose 147 H Calcium 8.5 D Urine Color Urine Appearance Urine pH Ur Specific Elizabeth Urine Protein Urine Glucose (UA) Urine Ketones Urine Blood Urine Nitrite Ur Leukocyte Esterase Urine RBC Urine WBC Ur Squamous Epith Cells Urine Bacteria Hyaline Casts Granular Casts 02/23/22 02/23/22 07:46 11:26 VBG pH VBG pCO2 VBG pO2 VBG HCO3 VBG O2 Saturation VBG Base Excess Anion Gap Estim Creat Clear Calc Estimated GFR POC Glucose 125 H 178 H Random Glucose Calcium Urine Color Urine Appearance Urine pH Ur Specific Elizabeth Urine Protein Urine Glucose (UA) Urine Ketones Urine Blood Urine Nitrite Ur Leukocyte Esterase Urine RBC Urine WBC Ur Squamous Epith Cells Urine Bacteria Hyaline Casts Granular Casts Microbiology Microbiology Results: Microbiology 02/21/22 17:33 Blood Culture - Preliminary Blood - Venous No growth after 24 hours. 02/21/22 17:07 Blood Culture - Preliminary Blood - Venous No growth after 24 hours. Assessment and Plan (1) Acute respiratory failure with hypoxia: Status: Acute (2) COVID-19: Status: Acute Plan 76-year-old male with past medical history of diabetes, HTN, HLD, CAD, peripheral vascular disease, and paroxysmal AFib on apixaban presents to the hospital with complaints of shortness of breath # acute hypoxic respiratory failure secondary to COVID infection Patient cannot remember if he was ever vaccinated against COVID-19 CXR showing bilateral infiltrates DC IV antibiotics per ID recommendations Wean oxygen down as tolerated Continue Decadron 6 mg daily (06/25) ID input appreciated Continue remdesivir day 2 # CHANTE on CKD stage 3 improved DC IV fluids follow BMP Monitor intake and output # elevated troponin likely type 2 in the setting of hypoxia with no chest pain no EKG changes suggestive of ACS Repeat EKG for any chest pain # diabetes low-dose sinus scale insulin hold oral antihyperglycemics # paroxysmal AFib continue Eliquis and metoprolol # history of PAD continue Plavix # hypothyroidism continue levothyroxine DVT prophylaxis: Eliquis Given patient's O2 requirements, in the setting of acute COVID infection inpatient requirement of overnight hospital stay for further management and evaluation Quality Stroke Does the patient have a stroke diagnosis?: No VTE Prior VTE?: No VTE Risk Level:: Medical - moderate - high VTE Device Contraindication: Treatment Not Indicated VTE Drug Contraindication: N/A - Med Ordered
[2022-02-23 16:07] LABS: Glucose, Whole Blood 194 mg/dL (60-115)
[2022-02-23] MEDS: Remdesivir 100 MG in 0.9 % Sodium Chloride 230 ML 115 MG IV (16:57)
--- NOTE | 2022-02-23 18:48 | PC.NURSE ---
after pt had a bowel movement at approx 1840, blood was noted on the toilet paper. Pt stated that this was new. There were no other signs of overt bleeding or melena. Alerted Dr. Pickard at 1845. asked that the next dose of eliquis be held.
[2022-02-23 20:14] LABS: Glucose, Whole Blood 137 mg/dL (60-115)
[2022-02-23] MEDS: Mirtazapine 7.5 MG TABLET PO (22:24)
[2022-02-23] MEDS: Atorvastatin Calcium 10 MG TABLET PO (22:24)
[2022-02-24 03:04] VITALS: BP 130/60; PULSE 64; RESP 18; TEMP 36.7; O2SAT 96
[2022-02-24] MEDS: Levothyroxine Sodium 25 MCG TABLET PO (05:27)
[2022-02-24 06:00] VITALS: BMI 24.1; BMI 24.9
[2022-02-24 06:48] LABS: C Reactive Protein 7.68 mg/dL (< or = 0.50); Lactate Dehydrogenase 388 U/L (118-273)
[2022-02-24 06:50] LABS: Anion Gap 14 (12-20); Blood Urea Nitrogen 37 mg/dL (9-16); Carbon Dioxide 21 mmol/L (22-29); Chloride 108 mmol/L (96-108); Estimated Glomerular Filt Rate 51; Glucose Random 119 mg/dL (60-115); Potassium 4.2 mmol/L (3.3-5.1); Sodium 139 mmol/L (135-145)
[2022-02-24 07:26] VITALS: BP 117/62; PULSE 55; RESP 20; TEMP 36.6; O2SAT 93
[2022-02-24 07:50] LABS: Glucose, Whole Blood 127 mg/dL (60-115)
[2022-02-24] MEDS: Clotrimazole 1 % Cream 15 GM TUBE 1 APPL TOPICAL ×2 (08:51→21:03)
[2022-02-24] MEDS: Cholecalciferol (Vitamin D3) 25 MCG TABLET PO (08:52)
[2022-02-24] MEDS: amLODIPine Besylate 10 MG TABLET PO (08:52)
[2022-02-24] MEDS: dexAMETHasone sod phosphate 4 MG/ML VIAL 6 MG IVPUSH (08:52)
[2022-02-24] MEDS: Clopidogrel Bisulfate 75 MG TABLET PO (08:52)
[2022-02-24] MEDS: 0.9 % Sodium Chloride Flush 3 ML SYRINGE IVFLUSH ×3 (08:52→23:15)
[2022-02-24] MEDS: Amiodarone HCL 200 MG TABLET PO (08:52)
[2022-02-24] MEDS: Apixaban 5 MG TABLET PO ×2 (08:52→21:03)
[2022-02-24] MEDS: timoloL maleate 0.5 % Oph Sol 5 ML DRBTL 1 DROP EYE-LEFT (08:53)
[2022-02-24 11:28] VITALS: BP 130/62; PULSE 59; RESP 18; TEMP 36.6; O2SAT 93
[2022-02-24 11:42] LABS: Glucose, Whole Blood 184 mg/dL (60-115)
--- NOTE | 2022-02-24 12:23 | P.PNIM_ITS ---
Subjective Subjective Date of Service: 02/24/22 Interval History: cc: sob interval history:sob improving despite incresaed o2 requireiments Cardiovascular Cardiovascular: Reports no additional cardiovascular complaints Respiratory Respiratory: Reports no additional respiratory complaints Physical Exam Vital Signs: Vital Signs: Last Vital Signs Temp 97.8 F 02/24/22 11:28 Pulse 59 02/24/22 11:28 Resp 18 02/24/22 11:28 BP 130/62 02/24/22 11:28 Pulse Ox 93 02/24/22 11:28 O2 Del Method 02/24/22 11:28 O2 Flow Rate 15 02/24/22 11:28 Oxygen Flow Rate 3 02/21/22 14:56 BMI result Body Mass Index 24.9 General: AO X 3, no acute distress Resp: Crackles bilateral, no accessory muscles used CVS: S1,S2,RRR GI: soft, non tender, non distended Neuro: motor grossly intact, alert Psych: appropriate affect, appropriate insight Objective Data Active Medications Acetaminophen (Acetaminophen 325 Mg Tablet) 650 mg PO Q6H PRN PRN Reason: Pain, Mild (Pain Scale 1-3) Amiodarone HCl (Amiodarone Hcl 200 Mg Tablet) 200 mg PO DAILY [facility] Last Admin: 02/24/22 08:52 Dose: 200 mg Documented By: SETH Amlodipine Besylate (Amlodipine Besylate 10 Mg Tablet) 10 mg PO DAILY [facility]; Protocol Last Admin: 02/24/22 08:52 Dose: 10 mg Documented By: SETH Apixaban (Apixaban 5 Mg Tablet) 5 mg PO BID [facility] Last Admin: 02/24/22 08:52 Dose: 5 mg Documented By: SETH Atorvastatin Calcium (Atorvastatin Calcium 10 Mg Tablet) 10 mg PO BEDTIME [facility] Last Admin: 02/23/22 22:24 Dose: 10 mg Documented By: HANK Baricitinib (Baricitinib 2 Mg Tablet) 2 mg PO Q24H [facility] Stop: 03/08/22 14:01 Last Admin: 02/23/22 14:14 Dose: 2 mg Documented By: PAOLA Clopidogrel Bisulfate (Clopidogrel Bisulfate 75 Mg Tablet) 75 mg PO DAILY [facility] Last Admin: 02/24/22 08:52 Dose: 75 mg Documented By: SETH Clotrimazole (Clotrimazole 1 % Cream 15 Gm Tube) 1 appl TOPICAL BID [facility]; Protocol Last Admin: 02/24/22 08:51 Dose: 1 appl Documented By: SETH Dexamethasone Sodium Phosphate (Dexamethasone Sod Phosphate 4 Mg/Ml Vial) 6 mg IVPUSH DAILY [facility] Last Admin: 02/24/22 08:52 Dose: 6 mg Documented By: SETH Dextrose (Dextrose 50 % 25 Gm/50 Ml Syringe) 25 gm IVPUSH Q15M PRN; Protocol PRN Reason: per Hypoglycemia Standing Ord. Docusate Sodium (Docusate Sodium 100 Mg Capsule) 100 mg PO DAILY PRN PRN Reason: Constipation Glucose (Glucose Gel 15 Gm Gel..Gram.) 15 gm PO Q15M PRN; Protocol PRN Reason: per Hypoglycemia Standing Ord. Remdesivir 100 mg/ Sodium (Chloride) 230 mls @ 115 mls/hr IV Q24H [facility] Stop: 02/24/22 17:59 Last Infusion: 02/23/22 19:52 Dose: 0 mls/hr Documented By: HANK Insulin Human Lispro (Insulin Lispro 100 Unit/Ml 3 Ml Vial) 0 unit SUBCUT QIDACHS [facility]; Protocol Last Admin: 02/24/22 08:39 Dose: Not Given Documented By: STEH Non-Admin Reason: No Insulin Coverage Levothyroxine Sodium (Levothyroxine Sodium 25 Mcg Tablet) 25 mcg PO DAILY@0600 [facility] Last Admin: 02/24/22 05:27 Dose: 25 mcg Documented By: HANK Mirtazapine (Mirtazapine 7.5 Mg Tablet) 7.5 mg PO BEDTIME [facility] Last Admin: 02/23/22 22:24 Dose: 7.5 mg Documented By: HANK Ondansetron HCl (Ondansetron Hcl 4 Mg/2 Ml Vial) 4 mg IVPUSH Q8H PRN PRN Reason: Nausea and Vomiting Pharmacy Consult (Consult Rx Perform Med Rec) 1 each MISCELLANE ONCE PRN PRN Reason: Consult order Sodium Chloride (0.9 % Sodium Chloride Flush 3 Ml Syringe) 3 ml IVFLUSH QSHIFT [facility] Last Admin: 02/24/22 08:52 Dose: 3 ml Documented By: HO.N-CHARG Timolol Maleate (Timolol Maleate 0.5 % Oph Spring 5 Ml Drbtl) 1 drop EYE-LEFT DAILY [facility] Last Admin: 02/24/22 08:53 Dose: 1 drop Documented By: SETH Vitamin D (Cholecalciferol (Vitamin D3) 25 Mcg Tablet) 25 mcg PO DAILY [facility] Last Admin: 02/24/22 08:52 Dose: 25 mcg Documented By: SETH Labs CBC & Chem 7: 02/21/22 16:29 02/24/22 06:20 Labs: Laboratory Results - last 24 hr 02/23/22 02/23/22 02/24/22 15:38 20:05 06:20 Anion Gap 14 Estim Creat Clear Calc 45.0 Estimated GFR 51 POC Glucose 194 H 137 H Random Glucose 119 H Calcium 8.0 L Lactate Dehydrogenase C-Reactive Protein 02/24/22 02/24/22 02/24/22 06:20 07:28 11:30 Anion Gap Estim Creat Clear Calc Estimated GFR POC Glucose 127 H 184 H Random Glucose Calcium Lactate Dehydrogenase 388 H C-Reactive Protein 7.68 H Microbiology Microbiology Results: Microbiology 02/21/22 17:33 Blood Culture - Preliminary Blood - Venous No growth after 48 hours. 02/21/22 17:07 Blood Culture - Preliminary Blood - Venous No growth after 48 hours. Assessment and Plan (1) Acute respiratory failure with hypoxia: Status: Acute (2) COVID-19: Status: Acute Plan 76-year-old male with past medical history of diabetes, HTN, HLD, CAD, peripheral vascular disease, and paroxysmal AFib on apixaban presented to the hospital with complaints of shortness of breath acute hypoxic respiratory failure secondary to COVID infection Patient cannot remember if he was ever vaccinated against COVID-19 CXR showing bilateral infiltrates DC IV antibiotics per ID recommendations Wean oxygen down as tolerated Continue Decadron 6 mg daily (07/26) Continue remdesivir day 3 baricitinib CHANTE on CKD stage 3 back to baseline elevated troponin likely type 2 in the setting of hypoxia with no chest pain no EKG changes suggestive of ACS Repeat EKG for any chest pain diabetes low-dose sinus scale insulin hold oral antihyperglycemics paroxysmal AFib continue Eliquis and metoprolol history of PAD continue Plavix hypothyroidism continue levothyroxine DVT prophylaxis: Eliquis reason for continued hospitalization:high o2 requirements Quality Stroke Does the patient have a stroke diagnosis?: No VTE Prior VTE?: No VTE Risk Level:: Medical - moderate - high VTE Device Contraindication: Treatment Not Indicated VTE Drug Contraindication: N/A - Med Ordered
[2022-02-24] MEDS: Insulin Lispro 100 UNIT/ML 3 ML VIAL SUBCUT ×3 (12:42→21:03)
[2022-02-24 15:41] VITALS: BP 145/67; PULSE 67; RESP 18; TEMP 36.1; O2SAT 91
[2022-02-24 16:19] LABS: Glucose, Whole Blood 198 mg/dL (60-115)
[2022-02-24] MEDS: Remdesivir 100 MG in 0.9 % Sodium Chloride 230 ML 115 MG IV (16:29)
[2022-02-24 19:32] VITALS: BP 152/75; PULSE 75; RESP 18; TEMP 36.2; O2SAT 94
[2022-02-24 20:32] LABS: Glucose, Whole Blood 190 mg/dL (60-115)
[2022-02-24] MEDS: Atorvastatin Calcium 10 MG TABLET PO (21:03)
[2022-02-24] MEDS: Mirtazapine 7.5 MG TABLET PO (21:03)
[2022-02-24 23:32] VITALS: BP 156/67; PULSE 66; RESP 17; TEMP 36.6; O2SAT 94
[2022-02-25] VITALS (7 sets, daily range): BP systolic 128–150; BP diastolic 60–75; PULSE 62–75; RESP 16–18; TEMP 36–36.8; O2SAT 90–96; BMI 24.2
[2022-02-25] MEDS: Levothyroxine Sodium 25 MCG TABLET PO (05:35)
[2022-02-25 07:21] LABS: Hematocrit 31.9 % (42.0-52.0); Hemoglobin 10.9 g/dl (14.0-18.0); Mean Corpuscular HGB Conc 34.2 g/dl (31.0-36.0); Mean Corpuscular Hemoglobin 28.8 pg (27.0-33.0); Mean Corpuscular Volume 84.4 fL (80.0-98.0); Mean Platelet Volume 11.5 fL (9.4-12.4); Platelet Count 271 X10*3/uL (160-400); Red Blood Count 3.78 X10*6/uL (4.60-5.80); Red Cell Distribution Width 16.9 % (11.0-16.0); White Blood Count 9.9 X10*3/uL (4.8-10.8)
[2022-02-25 07:27] LABS: Glucose, Whole Blood 104 mg/dL (60-115)
[2022-02-25 07:42] LABS: B Type Natriuretic Peptide 501 pg/mL (<100)
[2022-02-25 07:51] LABS: Anion Gap 12 (12-20); Blood Urea Nitrogen 34 mg/dL (9-16); Calcium 8.3 mg/dL (8.4-10.2); Carbon Dioxide 25 mmol/L (22-29); Chloride 109 mmol/L (96-108); Creatinine Clr Calc Pharmacy 49.4; Estimated Glomerular Filt Rate 57; Glucose Fasting 111 mg/dL (60-99); Magnesium 2.1 mg/dL (1.6-2.6); Potassium 4.8 mmol/L (3.3-5.1); Sodium 141 mmol/L (135-145)
[2022-02-25] MEDS: amLODIPine Besylate 10 MG TABLET PO (08:27)
[2022-02-25] MEDS: 0.9 % Sodium Chloride Flush 3 ML SYRINGE IVFLUSH ×3 (08:27→23:22)
[2022-02-25] MEDS: dexAMETHasone sod phosphate 4 MG/ML VIAL 6 MG IVPUSH (08:27)
[2022-02-25] MEDS: Clopidogrel Bisulfate 75 MG TABLET PO (08:27)
[2022-02-25] MEDS: Cholecalciferol (Vitamin D3) 25 MCG TABLET PO (08:27)
[2022-02-25] MEDS: Amiodarone HCL 200 MG TABLET PO (08:27)
[2022-02-25] MEDS: Apixaban 5 MG TABLET PO ×2 (08:27→20:14)
[2022-02-25] MEDS: Clotrimazole 1 % Cream 15 GM TUBE 1 APPL TOPICAL ×2 (08:32→20:15)
[2022-02-25] MEDS: timoloL maleate 0.5 % Oph Sol 5 ML DRBTL 1 DROP EYE-LEFT (08:33)
--- NOTE | 2022-02-25 10:59 | HO.PM.IMPN ---
Subjective Subjective Date of Service: 02/25/22 Interval History: cc: sob interval history:sob improving despite incresaed o2 requireiments Cardiovascular Cardiovascular: Reports no additional cardiovascular complaints Respiratory Respiratory: Reports no additional respiratory complaints Physical Exam Vital Signs: Vital Signs: Last Vital Signs Temp 98.2 F 02/25/22 07:19 Pulse 75 02/25/22 07:19 Resp 16 02/25/22 07:19 BP 135/74 02/25/22 07:19 Pulse Ox 90 L 02/25/22 07:19 O2 Del Method 02/25/22 07:19 O2 Flow Rate 15 02/25/22 07:19 Oxygen Flow Rate 3 02/21/22 14:56 BMI result Body Mass Index 24.2 General: AO X 3, no acute distress Resp: Crackles bilateral, no accessory muscles used CVS: S1,S2,RRR GI: soft, non tender, non distended Neuro: motor grossly intact, alert Psych: appropriate affect, appropriate insight Objective Data Active Medications Acetaminophen (Acetaminophen 325 Mg Tablet) 650 mg PO Q6H PRN PRN Reason: Pain, Mild (Pain Scale 1-3) Amiodarone HCl (Amiodarone Hcl 200 Mg Tablet) 200 mg PO DAILY [facility] Last Admin: 02/25/22 08:27 Dose: 200 mg Documented By: MIRZA Amlodipine Besylate (Amlodipine Besylate 10 Mg Tablet) 10 mg PO DAILY [facility]; Protocol Last Admin: 02/25/22 08:27 Dose: 10 mg Documented By: MIRZA Apixaban (Apixaban 5 Mg Tablet) 5 mg PO BID [facility] Last Admin: 02/25/22 08:27 Dose: 5 mg Documented By: MIRZA Atorvastatin Calcium (Atorvastatin Calcium 10 Mg Tablet) 10 mg PO BEDTIME [facility] Last Admin: 02/24/22 21:03 Dose: 10 mg Documented By: CASANDRA Baricitinib (Baricitinib 2 Mg Tablet) 2 mg PO Q24H [facility] Stop: 03/08/22 14:01 Last Admin: 02/24/22 12:42 Dose: 2 mg Documented By: SETH Clopidogrel Bisulfate (Clopidogrel Bisulfate 75 Mg Tablet) 75 mg PO DAILY [facility] Last Admin: 02/25/22 08:27 Dose: 75 mg Documented By: MIRZA Clotrimazole (Clotrimazole 1 % Cream 15 Gm Tube) 1 appl TOPICAL BID [facility]; Protocol Last Admin: 02/25/22 08:32 Dose: 1 appl Documented By: MIRZA Dexamethasone Sodium Phosphate (Dexamethasone Sod Phosphate 4 Mg/Ml Vial) 6 mg IVPUSH DAILY [facility] Last Admin: 02/25/22 08:27 Dose: 6 mg Documented By: MIRZA Dextrose (Dextrose 50 % 25 Gm/50 Ml Syringe) 25 gm IVPUSH Q15M PRN; Protocol PRN Reason: per Hypoglycemia Standing Ord. Docusate Sodium (Docusate Sodium 100 Mg Capsule) 100 mg PO DAILY PRN PRN Reason: Constipation Glucose (Glucose Gel 15 Gm Gel..Gram.) 15 gm PO Q15M PRN; Protocol PRN Reason: per Hypoglycemia Standing Ord. Insulin Human Lispro (Insulin Lispro 100 Unit/Ml 3 Ml Vial) 0 unit SUBCUT QIDACHS [facility]; Protocol Last Admin: 02/25/22 07:29 Dose: Not Given Documented By: MIRZA Non-Admin Reason: No Insulin Coverage Levothyroxine Sodium (Levothyroxine Sodium 25 Mcg Tablet) 25 mcg PO DAILY@0600 [facility] Last Admin: 02/25/22 05:35 Dose: 25 mcg Documented By: CASANDRA Mirtazapine (Mirtazapine 7.5 Mg Tablet) 7.5 mg PO BEDTIME [facility] Last Admin: 02/24/22 21:03 Dose: 7.5 mg Documented By: CASANDRA Ondansetron HCl (Ondansetron Hcl 4 Mg/2 Ml Vial) 4 mg IVPUSH Q8H PRN PRN Reason: Nausea and Vomiting Pharmacy Consult (Consult Rx Perform Med Rec) 1 each MISCELLANE ONCE PRN PRN Reason: Consult order Sodium Chloride (0.9 % Sodium Chloride Flush 3 Ml Syringe) 3 ml IVFLUSH QSHIFT [facility] Last Admin: 02/25/22 08:27 Dose: 3 ml Documented By: MIRZA Timolol Maleate (Timolol Maleate 0.5 % Oph [place] 5 Ml Drbtl) 1 drop EYE-LEFT DAILY [facility] Last Admin: 02/25/22 08:33 Dose: 1 drop Documented By: MIRZA Vitamin D (Cholecalciferol (Vitamin D3) 25 Mcg Tablet) 25 mcg PO DAILY [facility] Last Admin: 02/25/22 08:27 Dose: 25 mcg Documented By: MIRZA Labs CBC & Chem 7: 02/25/22 06:53 02/25/22 06:53 Labs: Laboratory Results - last 24 hr 02/24/22 02/24/22 02/24/22 11:30 16:12 20:25 MCV MCH MCHC RDW Plt Count MPV Absolute Nucleated RBC Nucleated RBC % (auto) Anion Gap Estim Creat Clear Calc Estimated GFR POC Glucose 184 H 198 H 190 H Fasting Glucose Calcium Magnesium B-Natriuretic Peptide 02/25/22 02/25/22 02/25/22 06:53 06:53 06:53 MCV 84.4 MCH 28.8 MCHC 34.2 RDW 16.9 H Plt Count 271 D MPV 11.5 Absolute Nucleated RBC 0.000 Nucleated RBC % (auto) 0.0 Anion Gap 12 Estim Creat Clear Calc 49.4 Estimated GFR 57 POC Glucose Fasting Glucose 111 H Calcium 8.3 L Magnesium 2.1 B-Natriuretic Peptide 501 H 02/25/22 07:22 MCV MCH MCHC RDW Plt Count MPV Absolute Nucleated RBC Nucleated RBC % (auto) Anion Gap Estim Creat Clear Calc Estimated GFR POC Glucose 104 Fasting Glucose Calcium Magnesium B-Natriuretic Peptide Assessment and Plan (1) Acute respiratory failure with hypoxia: Status: Acute (2) COVID-19: Status: Acute Plan 76-year-old male with past medical history of diabetes, HTN, HLD, CAD, peripheral vascular disease, and paroxysmal AFib on apixaban presented to the hospital with complaints of shortness of breath acute hypoxic respiratory failure secondary to COVID infection Patient cannot remember if he was ever vaccinated against COVID-19 CXR showing bilateral infiltrates DC IV antibiotics per ID recommendations Wean oxygen down as tolerated Continue Decadron 6 mg daily (08/25) Continue remdesivir day 4 baricitinib empiric lasix 40mg iv CHANTE on CKD stage 3 back to baseline elevated troponin likely type 2 in the setting of hypoxia with no chest pain no EKG changes suggestive of ACS Repeat EKG for any chest pain diabetes low-dose sinus scale insulin hold oral antihyperglycemics paroxysmal AFib continue Eliquis and metoprolol history of PAD continue Plavix hypothyroidism continue levothyroxine DVT prophylaxis: Eliquis reason for continued hospitalization:high o2 requirements Quality Stroke Does the patient have a stroke diagnosis?: No VTE Prior VTE?: No VTE Risk Level:: Medical - moderate - high VTE Device Contraindication: Treatment Not Indicated VTE Drug Contraindication: N/A - Med Ordered
[2022-02-25 11:37] LABS: Glucose, Whole Blood 163 mg/dL (60-115)
[2022-02-25] MEDS: Furosemide 40 MG/4 ML VIAL IVPUSH (12:28)
[2022-02-25] MEDS: Insulin Lispro 100 UNIT/ML 3 ML VIAL SUBCUT ×3 (12:29→20:14)
[2022-02-25 15:50] LABS: Glucose, Whole Blood 206 mg/dL (60-115)
[2022-02-25 19:49] LABS: Glucose, Whole Blood 225 mg/dL (60-115)
[2022-02-25] MEDS: Atorvastatin Calcium 10 MG TABLET PO (20:14)
[2022-02-25] MEDS: Mirtazapine 7.5 MG TABLET PO (20:15)
[2022-02-26] VITALS (7 sets, daily range): BP systolic 118–156; BP diastolic 67–82; PULSE 58–95; RESP 15–18; TEMP 35.9–37.2; O2SAT 84–98; BMI 24.1
[2022-02-26] MEDS: Levothyroxine Sodium 25 MCG TABLET PO (05:57)
[2022-02-26 07:24] LABS: Hemoglobin 10.6 g/dl (14.0-18.0); Mean Corpuscular HGB Conc 34.2 g/dl (31.0-36.0); Mean Corpuscular Hemoglobin 28.3 pg (27.0-33.0); Mean Corpuscular Volume 82.7 fL (80.0-98.0); Mean Platelet Volume 11.8 fL (9.4-12.4); Platelet Count 309 X10*3/uL (160-400); Red Blood Count 3.75 X10*6/uL (4.60-5.80); White Blood Count 11.4 X10*3/uL (4.8-10.8)
[2022-02-26 07:44] LABS: Glucose, Whole Blood 104 mg/dL (60-115)
[2022-02-26 07:51] LABS: Anion Gap 14 (12-20); Blood Urea Nitrogen 35 mg/dL (9-16); Calcium 8.4 mg/dL (8.4-10.2); Carbon Dioxide 25 mmol/L (22-29); Chloride 106 mmol/L (96-108); Creatinine Clr Calc Pharmacy 50.7; Estimated Glomerular Filt Rate 59; Glucose Fasting 110 mg/dL (60-99); Potassium 4.8 mmol/L (3.3-5.1); Sodium 140 mmol/L (135-145)
[2022-02-26] MEDS: Cholecalciferol (Vitamin D3) 25 MCG TABLET PO (08:48)
[2022-02-26] MEDS: Amiodarone HCL 200 MG TABLET PO (08:48)
[2022-02-26] MEDS: Clopidogrel Bisulfate 75 MG TABLET PO (08:48)
[2022-02-26] MEDS: amLODIPine Besylate 10 MG TABLET PO (08:48)
[2022-02-26] MEDS: dexAMETHasone sod phosphate 4 MG/ML VIAL 6 MG IVPUSH (08:49)
[2022-02-26] MEDS: 0.9 % Sodium Chloride Flush 3 ML SYRINGE IVFLUSH ×3 (08:49→20:40)
[2022-02-26] MEDS: Apixaban 5 MG TABLET PO ×2 (08:49→20:33)
[2022-02-26] MEDS: timoloL maleate 0.5 % Oph Sol 5 ML DRBTL 1 DROP EYE-LEFT (08:51)
[2022-02-26] MEDS: Clotrimazole 1 % Cream 15 GM TUBE 1 APPL TOPICAL ×2 (08:51→20:39)
--- NOTE | 2022-02-26 10:41 | P.PNIM_ITS ---
Subjective Subjective Date of Service: 02/26/22 Interval History: cc: sob interval history:no significant symptoms, weaned to 10L Cardiovascular Cardiovascular: Reports no additional cardiovascular complaints Respiratory Respiratory: Reports no additional respiratory complaints Physical Exam Vital Signs: Vital Signs: Last Vital Signs Temp 96.7 F L 02/26/22 07:26 Pulse 58 02/26/22 07:26 Resp 16 02/26/22 07:26 BP 156/67 H 02/26/22 07:26 Pulse Ox 97 02/26/22 08:48 O2 Del Method 02/26/22 08:48 O2 Flow Rate 10 02/26/22 08:48 Oxygen Flow Rate 3 02/21/22 14:56 BMI result Body Mass Index 24.1 General: AO X 3, no acute distress Resp: Crackles bilateral, no accessory muscles used CVS: S1,S2,RRR GI: soft, non tender, non distended Neuro: motor grossly intact, alert Psych: appropriate affect, appropriate insight Objective Data Active Medications Acetaminophen (Acetaminophen 325 Mg Tablet) 650 mg PO Q6H PRN PRN Reason: Pain, Mild (Pain Scale 1-3) Amiodarone HCl (Amiodarone Hcl 200 Mg Tablet) 200 mg PO DAILY [facility] Last Admin: 02/26/22 08:48 Dose: 200 mg Documented By: PAOLA Amlodipine Besylate (Amlodipine Besylate 10 Mg Tablet) 10 mg PO DAILY [facility]; Protocol Last Admin: 02/26/22 08:48 Dose: 10 mg Documented By: PAOLA Apixaban (Apixaban 5 Mg Tablet) 5 mg PO BID [facility] Last Admin: 02/26/22 08:49 Dose: 5 mg Documented By: PAOLA Atorvastatin Calcium (Atorvastatin Calcium 10 Mg Tablet) 10 mg PO BEDTIME [facility] Last Admin: 02/25/22 20:14 Dose: 10 mg Documented By: SHAUN Baricitinib (Baricitinib 2 Mg Tablet) 2 mg PO Q24H [facility] Stop: 03/08/22 14:01 Last Admin: 02/25/22 12:28 Dose: 2 mg Documented By: MIRZA Clopidogrel Bisulfate (Clopidogrel Bisulfate 75 Mg Tablet) 75 mg PO DAILY [facility] Last Admin: 02/26/22 08:48 Dose: 75 mg Documented By: PAOLA Clotrimazole (Clotrimazole 1 % Cream 15 Gm Tube) 1 appl TOPICAL BID [facility]; Protocol Last Admin: 02/26/22 08:51 Dose: 1 appl Documented By: PAOLA Dexamethasone Sodium Phosphate (Dexamethasone Sod Phosphate 4 Mg/Ml Vial) 6 mg IVPUSH DAILY [facility] Last Admin: 02/26/22 08:49 Dose: 6 mg Documented By: PAOLA Dextrose (Dextrose 50 % 25 Gm/50 Ml Syringe) 25 gm IVPUSH Q15M PRN; Protocol PRN Reason: per Hypoglycemia Standing Ord. Docusate Sodium (Docusate Sodium 100 Mg Capsule) 100 mg PO DAILY PRN PRN Reason: Constipation Glucose (Glucose Gel 15 Gm Gel..Gram.) 15 gm PO Q15M PRN; Protocol PRN Reason: per Hypoglycemia Standing Ord. Insulin Human Lispro (Insulin Lispro 100 Unit/Ml 3 Ml Vial) 0 unit SUBCUT QIDACHS [facility]; Protocol Last Admin: 02/26/22 07:49 Dose: Not Given Documented By: PAOLA Non-Admin Reason: No Insulin Coverage Levothyroxine Sodium (Levothyroxine Sodium 25 Mcg Tablet) 25 mcg PO DAILY@0600 [facility] Last Admin: 02/26/22 05:57 Dose: 25 mcg Documented By: NORTH Mirtazapine (Mirtazapine 7.5 Mg Tablet) 7.5 mg PO BEDTIME [facility] Last Admin: 02/25/22 20:15 Dose: 7.5 mg Documented By: SHAUN Ondansetron HCl (Ondansetron Hcl 4 Mg/2 Ml Vial) 4 mg IVPUSH Q8H PRN PRN Reason: Nausea and Vomiting Pharmacy Consult (Consult Rx Perform Med Rec) 1 each MISCELLANE ONCE PRN PRN Reason: Consult order Sodium Chloride (0.9 % Sodium Chloride Flush 3 Ml Syringe) 3 ml IVFLUSH QSHIFT [facility] Last Admin: 02/26/22 08:49 Dose: 3 ml Documented By: PAOLA Timolol Maleate (Timolol Maleate 0.5 % Oph [place] 5 Ml Drbtl) 1 drop EYE-LEFT DAILY [facility] Last Admin: 02/26/22 08:51 Dose: 1 drop Documented By: PAOLA Vitamin D (Cholecalciferol (Vitamin D3) 25 Mcg Tablet) 25 mcg PO DAILY [facility] Last Admin: 02/26/22 08:48 Dose: 25 mcg Documented By: PAOLA Labs CBC & Chem 7: 02/26/22 07:03 02/26/22 07:03 Labs: Laboratory Results - last 24 hr 02/25/22 02/25/22 02/25/22 11:34 15:46 19:46 MCV MCH MCHC RDW Plt Count MPV Absolute Nucleated RBC Nucleated RBC % (auto) Anion Gap Estim Creat Clear Calc Estimated GFR POC Glucose 163 H 206 H 225 H Fasting Glucose Calcium 02/26/22 02/26/22 02/26/22 07:03 07:03 07:24 MCV 82.7 MCH 28.3 MCHC 34.2 RDW 17.0 H Plt Count 309 MPV 11.8 Absolute Nucleated RBC 0.000 Nucleated RBC % (auto) 0.0 Anion Gap 14 Estim Creat Clear Calc 50.7 Estimated GFR 59 POC Glucose 104 Fasting Glucose 110 H Calcium 8.4 Assessment and Plan (1) Acute respiratory failure with hypoxia: Status: Acute (2) COVID-19: Status: Acute Plan 76-year-old male with past medical history of diabetes, HTN, HLD, CAD, peripheral vascular disease, and paroxysmal AFib on apixaban presented to the hospital with complaints of shortness of breath acute hypoxic respiratory failure secondary to COVID infection Patient cannot remember if he was ever vaccinated against COVID-19 CXR showing bilateral infiltrates DC IV antibiotics per ID recommendations Wean oxygen down as tolerated Continue Decadron 6 mg daily (09/25) Continue remdesivir day 5 baricitinib some improvement after empiric lasix 40mg iv, will give another dose today CHANTE on CKD stage 3 back to baseline elevated troponin likely type 2 in the setting of hypoxia with no chest pain no EKG changes suggestive of ACS Repeat EKG for any chest pain diabetes low-dose sinus scale insulin hold oral antihyperglycemics paroxysmal AFib continue Eliquis and metoprolol history of PAD continue Plavix hypothyroidism continue levothyroxine DVT prophylaxis: Eliquis reason for continued hospitalization:high o2 requirements Quality Stroke Does the patient have a stroke diagnosis?: No VTE Prior VTE?: No VTE Risk Level:: Medical - moderate - high VTE Device Contraindication: Treatment Not Indicated VTE Drug Contraindication: N/A - Med Ordered
[2022-02-26 11:29] LABS: Glucose, Whole Blood 234 mg/dL (60-115)
[2022-02-26] MEDS: Furosemide 40 MG/4 ML VIAL IVPUSH (11:41)
[2022-02-26] MEDS: Insulin Lispro 100 UNIT/ML 3 ML VIAL SUBCUT ×2 (11:42→16:09)
[2022-02-26 16:01] LABS: Glucose, Whole Blood 236 mg/dL (60-115)
[2022-02-26 19:56] LABS: Glucose, Whole Blood 150 mg/dL (60-115)
[2022-02-26] MEDS: Atorvastatin Calcium 10 MG TABLET PO (20:33)
[2022-02-26] MEDS: Mirtazapine 7.5 MG TABLET PO (20:33)
[2022-02-27] VITALS (10 sets, daily range): BP systolic 141–158; BP diastolic 65–76; PULSE 57–66; RESP 16–18; TEMP 35.9–37.1; O2SAT 90–97; BMI 24.1
[2022-02-27] MEDS: Levothyroxine Sodium 25 MCG TABLET PO (06:17)
[2022-02-27 07:56] LABS: Glucose, Whole Blood 91 mg/dL (60-115)
[2022-02-27] MEDS: Amiodarone HCL 200 MG TABLET PO (08:39)
[2022-02-27] MEDS: Apixaban 5 MG TABLET PO ×2 (08:39→19:41)
[2022-02-27] MEDS: Clopidogrel Bisulfate 75 MG TABLET PO (08:39)
[2022-02-27] MEDS: Cholecalciferol (Vitamin D3) 25 MCG TABLET PO (08:39)
[2022-02-27] MEDS: dexAMETHasone sod phosphate 4 MG/ML VIAL 6 MG IVPUSH (08:39)
[2022-02-27] MEDS: amLODIPine Besylate 10 MG TABLET PO (08:39)
[2022-02-27] MEDS: Clotrimazole 1 % Cream 15 GM TUBE 1 APPL TOPICAL (08:40)
[2022-02-27] MEDS: 0.9 % Sodium Chloride Flush 3 ML SYRINGE IVFLUSH ×3 (08:40→19:44)
[2022-02-27] MEDS: timoloL maleate 0.5 % Oph Sol 5 ML DRBTL 1 DROP EYE-LEFT (08:40)
[2022-02-27 11:24] LABS: Glucose, Whole Blood 142 mg/dL (60-115)
--- NOTE | 2022-02-27 12:15 | HO.PM.IMPN ---
Subjective Subjective Date of Service: 02/27/22 Interval History: cc: sob interval history:no significant symptoms, Cardiovascular Cardiovascular: Reports no additional cardiovascular complaints Respiratory Respiratory: Reports no additional respiratory complaints Physical Exam Vital Signs: Vital Signs: Last Vital Signs Temp 97.1 F 02/27/22 11:55 Pulse 57 02/27/22 11:55 Resp 16 02/27/22 11:55 BP 154/75 H 02/27/22 11:55 Pulse Ox 97 02/27/22 11:55 O2 Del Method 02/27/22 11:55 O2 Flow Rate 10 02/27/22 11:55 Oxygen Flow Rate 3 02/21/22 14:56 BMI result Body Mass Index 24.1 General: AO X 3, no acute distress Resp: Crackles bilateral, no accessory muscles used CVS: S1,S2,RRR GI: soft, non tender, non distended Neuro: motor grossly intact, alert Psych: appropriate affect, appropriate insight Objective Data Active Medications Acetaminophen (Acetaminophen 325 Mg Tablet) 650 mg PO Q6H PRN PRN Reason: Pain, Mild (Pain Scale 1-3) Amiodarone HCl (Amiodarone Hcl 200 Mg Tablet) 200 mg PO DAILY [facility] Last Admin: 02/27/22 08:39 Dose: 200 mg Documented By: PAOLA Amlodipine Besylate (Amlodipine Besylate 10 Mg Tablet) 10 mg PO DAILY [facility] [place]; Protocol Last Admin: 02/27/22 08:39 Dose: 10 mg Documented By: PAOLA Apixaban (Apixaban 5 Mg Tablet) 5 mg PO BID [facility] [place] Last Admin: 02/27/22 08:39 Dose: 5 mg Documented By: PAOLA Atorvastatin Calcium (Atorvastatin Calcium 10 Mg Tablet) 10 mg PO BEDTIME [facility] [place] Last Admin: 02/26/22 20:33 Dose: 10 mg Documented By: DIAMOND Baricitinib (Baricitinib 2 Mg Tablet) 2 mg PO Q24H [facility] [place] Stop: 03/08/22 14:01 Last Admin: 02/26/22 16:09 Dose: 2 mg Documented By: PAOLA Clopidogrel Bisulfate (Clopidogrel Bisulfate 75 Mg Tablet) 75 mg PO DAILY [facility] [place] Last Admin: 02/27/22 08:39 Dose: 75 mg Documented By: PAOLA Clotrimazole (Clotrimazole 1 % Cream 15 Gm Tube) 1 appl TOPICAL BID [facility] [place]; Protocol Last Admin: 02/27/22 08:40 Dose: 1 appl Documented By: PAOLA Dexamethasone Sodium Phosphate (Dexamethasone Sod Phosphate 4 Mg/Ml Vial) 6 mg IVPUSH DAILY [facility] [place] Last Admin: 02/27/22 08:39 Dose: 6 mg Documented By: PAOLA Dextrose (Dextrose 50 % 25 Gm/50 Ml Syringe) 25 gm IVPUSH Q15M PRN; Protocol PRN Reason: per Hypoglycemia Standing Ord. Docusate Sodium (Docusate Sodium 100 Mg Capsule) 100 mg PO DAILY PRN PRN Reason: Constipation Glucose (Glucose Gel 15 Gm Gel..Gram.) 15 gm PO Q15M PRN; Protocol PRN Reason: per Hypoglycemia Standing Ord. Insulin Human Lispro (Insulin Lispro 100 Unit/Ml 3 Ml Vial) 0 unit SUBCUT QIDACHS [facility] [place]; Protocol Last Admin: 02/27/22 11:26 Dose: Not Given Documented By: PAOLA Non-Admin Reason: No Insulin Coverage Levothyroxine Sodium (Levothyroxine Sodium 25 Mcg Tablet) 25 mcg PO DAILY@0600 [facility] [place] Last Admin: 02/27/22 06:17 Dose: 25 mcg Documented By: DIAMOND Mirtazapine (Mirtazapine 7.5 Mg Tablet) 7.5 mg PO BEDTIME [facility] [place] Last Admin: 02/26/22 20:33 Dose: 7.5 mg Documented By: DIAMOND Ondansetron HCl (Ondansetron Hcl 4 Mg/2 Ml Vial) 4 mg IVPUSH Q8H PRN PRN Reason: Nausea and Vomiting Pharmacy Consult (Consult Rx Perform Med Rec) 1 each MISCELLANE ONCE PRN PRN Reason: Consult order Sodium Chloride (0.9 % Sodium Chloride Flush 3 Ml Syringe) 3 ml IVFLUSH QSHIFT [facility] [place] Last Admin: 02/27/22 08:40 Dose: 3 ml Documented By: PAOLA Timolol Maleate (Timolol Maleate 0.5 % Oph [place] 5 Ml Drbtl) 1 drop EYE-LEFT DAILY [facility] [place] Last Admin: 02/27/22 08:40 Dose: 1 drop Documented By: PAOLA Vitamin D (Cholecalciferol (Vitamin D3) 25 Mcg Tablet) 25 mcg PO DAILY [facility] [place] Last Admin: 02/27/22 08:39 Dose: 25 mcg Documented By: PAOLA Labs CBC & Chem 7: 02/26/22 07:03 02/26/22 07:03 Labs: Laboratory Results - last 24 hr 02/26/22 02/26/22 02/27/22 15:09 19:36 07:51 POC Glucose 236 H 150 H 91 02/27/22 11:19 POC Glucose 142 H Microbiology Microbiology Results: Microbiology 02/21/22 17:33 Blood Culture - Final Blood - Venous No growth after 5 days. 02/21/22 17:07 Blood Culture - Final Blood - Venous No growth after 5 days. Assessment and Plan (1) Acute respiratory failure with hypoxia: Status: Acute (2) COVID-19: Status: Acute Plan 76-year-old male with past medical history of diabetes, HTN, HLD, CAD, peripheral vascular disease, and paroxysmal AFib on apixaban presented to the hospital with complaints of shortness of breath acute hypoxic respiratory failure secondary to COVID infection Patient cannot remember if he was ever vaccinated against COVID-19 CXR showing bilateral infiltrates DC IV antibiotics per ID recommendations Wean oxygen down as tolerated Continue Decadron 6 mg daily (10/25) completed remdesivir baricitinib acute on chronic diastolic chf iv lasix monitor lytess CHANTE on CKD stage 3 back to baseline elevated troponin likely type 2 in the setting of hypoxia with no chest pain no EKG changes suggestive of ACS Repeat EKG for any chest pain diabetes low-dose sinus scale insulin hold oral antihyperglycemics paroxysmal AFib continue Eliquis and metoprolol history of PAD continue Plavix hypothyroidism continue levothyroxine DVT prophylaxis: Eliquis reason for continued hospitalization:high o2 requirements Quality Stroke Does the patient have a stroke diagnosis?: No VTE Prior VTE?: No VTE Risk Level:: Medical - moderate - high VTE Device Contraindication: Treatment Not Indicated VTE Drug Contraindication: N/A - Med Ordered
[2022-02-27] MEDS: Furosemide 40 MG/4 ML VIAL IVPUSH (13:16)
[2022-02-27 15:28] LABS: Glucose, Whole Blood 210 mg/dL (60-115)
[2022-02-27] MEDS: Insulin Lispro 100 UNIT/ML 3 ML VIAL SUBCUT ×2 (16:41→19:41)
[2022-02-27 19:18] LABS: Glucose, Whole Blood 245 mg/dL (60-115)
[2022-02-27] MEDS: Mirtazapine 7.5 MG TABLET PO (19:40)
[2022-02-27] MEDS: Atorvastatin Calcium 10 MG TABLET PO (19:41)
[2022-02-28 03:08] VITALS: BP 137/84; PULSE 86; RESP 18; TEMP 36.4; O2SAT 97
[2022-02-28 06:00] VITALS: BMI 24.2
[2022-02-28] MEDS: Levothyroxine Sodium 25 MCG TABLET PO (06:04)
[2022-02-28 06:58] LABS: Hematocrit 30.9 % (42.0-52.0); Hemoglobin 10.4 g/dl (14.0-18.0); Mean Corpuscular HGB Conc 33.7 g/dl (31.0-36.0); Mean Corpuscular Hemoglobin 27.7 pg (27.0-33.0); Mean Corpuscular Volume 82.2 fL (80.0-98.0); Mean Platelet Volume 12.2 fL (9.4-12.4); Platelet Count 312 X10*3/uL (160-400); Red Blood Count 3.76 X10*6/uL (4.60-5.80); Red Cell Distribution Width 17.2 % (11.0-16.0); White Blood Count 10.5 X10*3/uL (4.8-10.8)
[2022-02-28 07:26] VITALS: BP 167/77; PULSE 54; RESP 20; TEMP 36.2; O2SAT 96
[2022-02-28 07:45] LABS: Glucose, Whole Blood 98 mg/dL (60-115)
[2022-02-28 07:48] LABS: Anion Gap 13 (12-20); Blood Urea Nitrogen 39 mg/dL (9-16); Calcium 8.4 mg/dL (8.4-10.2); Carbon Dioxide 27 mmol/L (22-29); Chloride 105 mmol/L (96-108); Creatinine Clr Calc Pharmacy 52.9; Estimated Glomerular Filt Rate > 60; Glucose Fasting 113 mg/dL (60-99); Potassium 3.9 mmol/L (3.3-5.1); Sodium 141 mmol/L (135-145)
[2022-02-28] MEDS: timoloL maleate 0.5 % Oph Sol 5 ML DRBTL 1 DROP EYE-LEFT (09:08)
[2022-02-28] MEDS: Clotrimazole 1 % Cream 15 GM TUBE 1 APPL TOPICAL ×2 (09:08→21:22)
[2022-02-28] MEDS: 0.9 % Sodium Chloride Flush 3 ML SYRINGE IVFLUSH ×3 (09:08→21:31)
[2022-02-28] MEDS: Amiodarone HCL 200 MG TABLET PO (09:09)
[2022-02-28] MEDS: Clopidogrel Bisulfate 75 MG TABLET PO (09:09)
[2022-02-28] MEDS: Apixaban 5 MG TABLET PO ×2 (09:09→21:21)
[2022-02-28] MEDS: Cholecalciferol (Vitamin D3) 25 MCG TABLET PO (09:09)
[2022-02-28] MEDS: amLODIPine Besylate 10 MG TABLET PO (09:09)
[2022-02-28] MEDS: dexAMETHasone sod phosphate 4 MG/ML VIAL 6 MG IVPUSH (09:09)
[2022-02-28] MEDS: Furosemide 40 MG/4 ML VIAL IVPUSH (09:09)
--- NOTE | 2022-02-28 11:09 | P.PNIM_ITS ---
Subjective Subjective Date of Service: 02/28/22 Interval History: cc: sob interval history:no significant symptoms, Cardiovascular Cardiovascular: Reports no additional cardiovascular complaints Respiratory Respiratory: Reports no additional respiratory complaints Physical Exam Vital Signs: Vital Signs: Last Vital Signs Temp 97.2 F 02/28/22 07:26 Pulse 54 02/28/22 07:26 Resp 20 02/28/22 07:26 BP 167/77 H 02/28/22 07:26 Pulse Ox 96 02/28/22 07:26 O2 Del Method 02/28/22 07:26 O2 Flow Rate 10 02/28/22 07:26 Oxygen Flow Rate 3 02/21/22 14:56 BMI result Body Mass Index 24.2 General: AO X 3, no acute distress Resp: Crackles bilateral, no accessory muscles used CVS: S1,S2,RRR GI: soft, non tender, non distended Neuro: motor grossly intact, alert Psych: appropriate affect, appropriate insight Objective Data Active Medications Acetaminophen (Acetaminophen 325 Mg Tablet) 650 mg PO Q6H PRN PRN Reason: Pain, Mild (Pain Scale 1-3) Amiodarone HCl (Amiodarone Hcl 200 Mg Tablet) 200 mg PO DAILY [facility] Last Admin: 02/28/22 09:09 Dose: 200 mg Documented By: PAOLA Amlodipine Besylate (Amlodipine Besylate 10 Mg Tablet) 10 mg PO DAILY [facility]; Protocol Last Admin: 02/28/22 09:09 Dose: 10 mg Documented By: PAOLA Apixaban (Apixaban 5 Mg Tablet) 5 mg PO BID [facility] Last Admin: 02/28/22 09:09 Dose: 5 mg Documented By: PAOLA Atorvastatin Calcium (Atorvastatin Calcium 10 Mg Tablet) 10 mg PO BEDTIME [facility] Last Admin: 02/27/22 19:41 Dose: 10 mg Documented By: DIAMOND Baricitinib (Baricitinib 2 Mg Tablet) 2 mg PO Q24H [facility] Stop: 03/08/22 14:01 Last Admin: 02/27/22 13:16 Dose: 2 mg Documented By: PAOLA Clopidogrel Bisulfate (Clopidogrel Bisulfate 75 Mg Tablet) 75 mg PO DAILY [facility] Last Admin: 02/28/22 09:09 Dose: 75 mg Documented By: PAOLA Clotrimazole (Clotrimazole 1 % Cream 15 Gm Tube) 1 appl TOPICAL BID [facility]; Protocol Last Admin: 02/28/22 09:08 Dose: 1 appl Documented By: PAOLA Dexamethasone Sodium Phosphate (Dexamethasone Sod Phosphate 4 Mg/Ml Vial) 6 mg IVPUSH DAILY [facility] Last Admin: 02/28/22 09:09 Dose: 6 mg Documented By: PAOLA Dextrose (Dextrose 50 % 25 Gm/50 Ml Syringe) 25 gm IVPUSH Q15M PRN; Protocol PRN Reason: per Hypoglycemia Standing Ord. Docusate Sodium (Docusate Sodium 100 Mg Capsule) 100 mg PO DAILY PRN PRN Reason: Constipation Furosemide (Furosemide 40 Mg/4 Ml Vial) 40 mg IVPUSH DAILY [facility]; Protocol Last Admin: 02/28/22 09:09 Dose: 40 mg Documented By: PAOLA Glucose (Glucose Gel 15 Gm Gel..Gram.) 15 gm PO Q15M PRN; Protocol PRN Reason: per Hypoglycemia Standing Ord. Insulin Human Lispro (Insulin Lispro 100 Unit/Ml 3 Ml Vial) 0 unit SUBCUT QIDACHS [facility]; Protocol Last Admin: 02/28/22 07:53 Dose: Not Given Documented By: PAOLA Non-Admin Reason: No Insulin Coverage Levothyroxine Sodium (Levothyroxine Sodium 25 Mcg Tablet) 25 mcg PO DAILY@0600 [facility] Last Admin: 02/28/22 06:04 Dose: 25 mcg Documented By: DIAMOND Mirtazapine (Mirtazapine 7.5 Mg Tablet) 7.5 mg PO BEDTIME [facility] Last Admin: 02/27/22 19:40 Dose: 7.5 mg Documented By: DIAMOND Ondansetron HCl (Ondansetron Hcl 4 Mg/2 Ml Vial) 4 mg IVPUSH Q8H PRN PRN Reason: Nausea and Vomiting Pharmacy Consult (Consult Rx Perform Med Rec) 1 each MISCELLANE ONCE PRN PRN Reason: Consult order Sodium Chloride (0.9 % Sodium Chloride Flush 3 Ml Syringe) 3 ml IVFLUSH QSHIFT [facility] Last Admin: 02/28/22 09:08 Dose: 3 ml Documented By: PAOLA Timolol Maleate (Timolol Maleate 0.5 % Oph [place] 5 Ml Drbtl) 1 drop EYE-LEFT DAILY [facility] Last Admin: 02/28/22 09:08 Dose: 1 drop Documented By: PAOLA Vitamin D (Cholecalciferol (Vitamin D3) 25 Mcg Tablet) 25 mcg PO DAILY [facility] Last Admin: 02/28/22 09:09 Dose: 25 mcg Documented By: PAOLA Labs CBC & Chem 7: 02/28/22 06:47 02/28/22 06:47 Labs: Laboratory Results - last 24 hr 02/27/22 02/27/22 02/27/22 11:19 15:24 19:14 MCV MCH MCHC RDW Plt Count MPV Absolute Nucleated RBC Nucleated RBC % (auto) Anion Gap Estim Creat Clear Calc Estimated GFR POC Glucose 142 H 210 H 245 H Fasting Glucose Calcium Magnesium 02/28/22 02/28/22 02/28/22 06:47 06:47 07:41 MCV 82.2 MCH 27.7 MCHC 33.7 RDW 17.2 H Plt Count 312 MPV 12.2 Absolute Nucleated RBC 0.000 Nucleated RBC % (auto) 0.0 Anion Gap 13 Estim Creat Clear Calc 52.9 Estimated GFR > 60 POC Glucose 98 Fasting Glucose 113 H Calcium 8.4 Magnesium 2.0 Assessment and Plan (1) Acute respiratory failure with hypoxia: Status: Acute (2) COVID-19: Status: Acute Plan 76-year-old male with past medical history of diabetes, HTN, HLD, CAD, peripheral vascular disease, and paroxysmal AFib on apixaban presented to the hospital with complaints of shortness of breath acute hypoxic respiratory failure secondary to COVID infection Patient cannot remember if he was ever vaccinated against COVID-19 CXR showing bilateral infiltrates DC IV antibiotics per ID recommendations Wean oxygen down as tolerated Continue Decadron 6 mg daily (11/25) completed remdesivir baricitinib acute on chronic diastolic chf iv lasix monitor lytess CHANTE on CKD stage 3 back to baseline elevated troponin likely type 2 in the setting of hypoxia with no chest pain no EKG changes suggestive of ACS Repeat EKG for any chest pain diabetes low-dose sinus scale insulin hold oral antihyperglycemics paroxysmal AFib continue Eliquis and metoprolol history of PAD continue Plavix hypothyroidism continue levothyroxine DVT prophylaxis: Eliquis reason for continued hospitalization:high o2 requirements Quality Stroke Does the patient have a stroke diagnosis?: No VTE Prior VTE?: No VTE Risk Level:: Medical - moderate - high VTE Device Contraindication: Treatment Not Indicated VTE Drug Contraindication: N/A - Med Ordered
[2022-02-28 11:22] LABS: Glucose, Whole Blood 117 mg/dL (60-115)
[2022-02-28 12:00] VITALS: BP 170/76; PULSE 60; RESP 18; TEMP 36.3; O2SAT 94
[2022-02-28 16:00] VITALS: BP 155/72; PULSE 61; RESP 16; TEMP 36.3; O2SAT 95
[2022-02-28 16:31] LABS: Glucose, Whole Blood 196 mg/dL (60-115)
[2022-02-28] MEDS: Insulin Lispro 100 UNIT/ML 3 ML VIAL SUBCUT ×2 (17:58→21:22)
[2022-02-28 20:00] VITALS: BP 133/59; PULSE 65; RESP 18; TEMP 36.3; O2SAT 96
[2022-02-28 21:07] LABS: Glucose, Whole Blood 217 mg/dL (60-115)
[2022-02-28] MEDS: Atorvastatin Calcium 10 MG TABLET PO (21:21)
[2022-02-28] MEDS: Mirtazapine 7.5 MG TABLET PO (21:21)
[2022-03-01] VITALS: BP 143/70; PULSE 66; RESP 18; TEMP 36.2; O2SAT 97
[2022-03-01 03:44] VITALS: BP 133/60; PULSE 58; RESP 18; TEMP 36.3; O2SAT 97
[2022-03-01] MEDS: Levothyroxine Sodium 25 MCG TABLET PO (05:54)
[2022-03-01 07:19] VITALS: BP 131/61; PULSE 77; RESP 17; TEMP 36.6; O2SAT 96
[2022-03-01 07:21] LABS: Hematocrit 31.6 % (42.0-52.0); Hemoglobin 10.4 g/dl (14.0-18.0); Mean Corpuscular HGB Conc 32.9 g/dl (31.0-36.0); Mean Corpuscular Hemoglobin 27.4 pg (27.0-33.0); Mean Corpuscular Volume 83.4 fL (80.0-98.0); Mean Platelet Volume 12.2 fL (9.4-12.4); Platelet Count 308 X10*3/uL (160-400); Red Blood Count 3.79 X10*6/uL (4.60-5.80); Red Cell Distribution Width 17.2 % (11.0-16.0); White Blood Count 12.6 X10*3/uL (4.8-10.8)
[2022-03-01 07:27] LABS: Glucose, Whole Blood 81 mg/dL (60-115)
[2022-03-01 08:11] LABS: Anion Gap 17 (12-20); Blood Urea Nitrogen 46 mg/dL (9-16); Calcium 8.4 mg/dL (8.4-10.2); Carbon Dioxide 23 mmol/L (22-29); Chloride 104 mmol/L (96-108); Creatinine Clr Calc Pharmacy 53.8; Estimated Glomerular Filt Rate > 60; Glucose Fasting 101 mg/dL (60-99); Potassium 4.8 mmol/L (3.3-5.1); Sodium 139 mmol/L (135-145)
[2022-03-01] MEDS: Furosemide 40 MG/4 ML VIAL IVPUSH (08:25)
[2022-03-01] MEDS: Apixaban 5 MG TABLET PO ×2 (08:25→21:03)
[2022-03-01] MEDS: dexAMETHasone sod phosphate 4 MG/ML VIAL 6 MG IVPUSH (08:25)
[2022-03-01] MEDS: 0.9 % Sodium Chloride Flush 3 ML SYRINGE IVFLUSH ×3 (08:25→21:11)
[2022-03-01] MEDS: Clopidogrel Bisulfate 75 MG TABLET PO (08:25)
[2022-03-01] MEDS: Amiodarone HCL 200 MG TABLET PO (08:26)
[2022-03-01] MEDS: Cholecalciferol (Vitamin D3) 25 MCG TABLET PO (08:26)
[2022-03-01] MEDS: amLODIPine Besylate 10 MG TABLET PO (08:26)
[2022-03-01] MEDS: Clotrimazole 1 % Cream 15 GM TUBE 1 APPL TOPICAL ×2 (08:28→21:04)
[2022-03-01] MEDS: timoloL maleate 0.5 % Oph Sol 5 ML DRBTL 1 DROP EYE-LEFT (08:28)
[2022-03-01 10:59] VITALS: BP 140/63; PULSE 68; RESP 17; TEMP 36.8; O2SAT 97
[2022-03-01 11:09] LABS: Glucose, Whole Blood 119 mg/dL (60-115)
--- NOTE | 2022-03-01 11:31 | P.PNIM_ITS ---
Subjective Subjective Date of Service: 03/01/22 Interval History: cc: sob interval history:no significant symptoms, Cardiovascular Cardiovascular: Reports no additional cardiovascular complaints Respiratory Respiratory: Reports no additional respiratory complaints Physical Exam Vital Signs: Vital Signs: Last Vital Signs Temp 98.2 F 03/01/22 10:59 Pulse 68 03/01/22 10:59 Resp 17 03/01/22 10:59 BP 140/63 H 03/01/22 10:59 Pulse Ox 97 03/01/22 10:59 O2 Del Method 03/01/22 10:59 O2 Flow Rate 7 03/01/22 10:59 Oxygen Flow Rate 3 02/21/22 14:56 BMI result Body Mass Index 24.2 General: AO X 3, no acute distress Resp: Crackles bilateral, no accessory muscles used CVS: S1,S2,RRR GI: soft, non tender, non distended Neuro: motor grossly intact, alert Psych: appropriate affect, appropriate insight Objective Data Active Medications Acetaminophen (Acetaminophen 325 Mg Tablet) 650 mg PO Q6H PRN PRN Reason: Pain, Mild (Pain Scale 1-3) Amiodarone HCl (Amiodarone Hcl 200 Mg Tablet) 200 mg PO DAILY [facility] Last Admin: 03/01/22 08:26 Dose: 200 mg Documented By: KARL Amlodipine Besylate (Amlodipine Besylate 10 Mg Tablet) 10 mg PO DAILY [facility]; Protocol Last Admin: 03/01/22 08:26 Dose: 10 mg Documented By: KARL Apixaban (Apixaban 5 Mg Tablet) 5 mg PO BID [facility] Last Admin: 03/01/22 08:25 Dose: 5 mg Documented By: KARL Atorvastatin Calcium (Atorvastatin Calcium 10 Mg Tablet) 10 mg PO BEDTIME [facility] Last Admin: 02/28/22 21:21 Dose: 10 mg Documented By: MOON Baricitinib (Baricitinib 2 Mg Tablet) 2 mg PO Q24H [facility] Stop: 03/08/22 14:01 Last Admin: 02/28/22 15:07 Dose: 2 mg Documented By: PAOLA Clopidogrel Bisulfate (Clopidogrel Bisulfate 75 Mg Tablet) 75 mg PO DAILY [facility] Last Admin: 03/01/22 08:25 Dose: 75 mg Documented By: KARL Clotrimazole (Clotrimazole 1 % Cream 15 Gm Tube) 1 appl TOPICAL BID [facility]; Protocol Last Admin: 03/01/22 08:28 Dose: 1 appl Documented By: KARL Dexamethasone Sodium Phosphate (Dexamethasone Sod Phosphate 4 Mg/Ml Vial) 6 mg IVPUSH DAILY [facility] Last Admin: 03/01/22 08:25 Dose: 6 mg Documented By: KARL Dextrose (Dextrose 50 % 25 Gm/50 Ml Syringe) 25 gm IVPUSH Q15M PRN; Protocol PRN Reason: per Hypoglycemia Standing Ord. Docusate Sodium (Docusate Sodium 100 Mg Capsule) 100 mg PO DAILY PRN PRN Reason: Constipation Furosemide (Furosemide 40 Mg/4 Ml Vial) 40 mg IVPUSH DAILY [facility]; Protocol Last Admin: 03/01/22 08:25 Dose: 40 mg Documented By: KARL Glucose (Glucose Gel 15 Gm Gel..Gram.) 15 gm PO Q15M PRN; Protocol PRN Reason: per Hypoglycemia Standing Ord. Insulin Human Lispro (Insulin Lispro 100 Unit/Ml 3 Ml Vial) 0 unit SUBCUT QIDACHS [facility]; Protocol Last Admin: 03/01/22 11:15 Dose: Not Given Documented By: KARL Non-Admin Reason: No Insulin Coverage Levothyroxine Sodium (Levothyroxine Sodium 25 Mcg Tablet) 25 mcg PO DAILY@0600 [facility] Last Admin: 03/01/22 05:54 Dose: 25 mcg Documented By: MOON Mirtazapine (Mirtazapine 7.5 Mg Tablet) 7.5 mg PO BEDTIME [facility] Last Admin: 02/28/22 21:21 Dose: 7.5 mg Documented By: MOON Ondansetron HCl (Ondansetron Hcl 4 Mg/2 Ml Vial) 4 mg IVPUSH Q8H PRN PRN Reason: Nausea and Vomiting Pharmacy Consult (Consult Rx Perform Med Rec) 1 each MISCELLANE ONCE PRN PRN Reason: Consult order Sodium Chloride (0.9 % Sodium Chloride Flush 3 Ml Syringe) 3 ml IVFLUSH QSHIFT [facility] Last Admin: 03/01/22 08:25 Dose: 3 ml Documented By: KARL Timolol Maleate (Timolol Maleate 0.5 % Oph Spring 5 Ml Drbtl) 1 drop EYE-LEFT FE Y [facility] Last Admin: 03/01/22 08:28 Dose: 1 drop Documented By: KARL Vitamin D (Cholecalciferol (Vitamin D3) 25 Mcg Tablet) 25 mcg PO DAILY [facility] Last Admin: 03/01/22 08:26 Dose: 25 mcg Documented By: KARL Labs CBC & Chem 7: 03/01/22 06:27 03/01/22 06:27 Labs: Laboratory Results - last 24 hr 02/28/22 02/28/22 03/01/22 16:09 21:04 06:27 MCV 83.4 MCH 27.4 MCHC 32.9 RDW 17.2 H Plt Count 308 MPV 12.2 Absolute Nucleated RBC 0.000 Nucleated RBC % (auto) 0.0 Anion Gap Estim Creat Clear Calc Estimated GFR POC Glucose 196 H 217 H Fasting Glucose Calcium 03/01/22 03/01/22 03/01/22 06:27 07:23 11:05 MCV MCH MCHC RDW Plt Count MPV Absolute Nucleated RBC Nucleated RBC % (auto) Anion Gap 17 Estim Creat Clear Calc 53.8 Estimated GFR > 60 POC Glucose 81 119 H Fasting Glucose 101 H Calcium 8.4 Assessment and Plan (1) Acute respiratory failure with hypoxia: Status: Acute (2) COVID-19: Status: Acute Plan 76-year-old male with past medical history of diabetes, HTN, HLD, CAD, peripheral vascular disease, and paroxysmal AFib on apixaban presented to the hospital with complaints of shortness of breath acute hypoxic respiratory failure secondary to COVID infection Patient cannot remember if he was ever vaccinated against COVID-19 CXR showing bilateral infiltrates DC IV antibiotics per ID recommendations Wean oxygen down as tolerated Continue Decadron 6 mg daily (12/26) completed remdesivir baricitinib acute on chronic diastolic chf continue iv lasix monitor lytess CHANTE on CKD stage 3 back to baseline elevated troponin likely type 2 in the setting of hypoxia with no chest pain no EKG changes suggestive of ACS Repeat EKG for any chest pain diabetes low-dose sinus scale insulin hold oral antihyperglycemics paroxysmal AFib continue Eliquis and metoprolol history of PAD continue Plavix hypothyroidism continue levothyroxine DVT prophylaxis: Eliquis reason for continued hospitalization:high o2 requirements Quality Stroke Does the patient have a stroke diagnosis?: No VTE Prior VTE?: No VTE Risk Level:: Medical - moderate - high VTE Device Contraindication: Treatment Not Indicated VTE Drug Contraindication: N/A - Med Ordered
--- NOTE | 2022-03-01 11:33 | MHC.CM.PN ---
Per ROUNDS discussion, Patient is still on O2 and not yet medically cleared for dc. Home is the goal and CM will continue to follow.
[2022-03-01 15:27] VITALS: BP 123/69; PULSE 69; RESP 19; TEMP 36.7; O2SAT 95
[2022-03-01 16:07] LABS: Glucose, Whole Blood 231 mg/dL (60-115)
[2022-03-01] MEDS: Insulin Lispro 100 UNIT/ML 3 ML VIAL SUBCUT ×2 (17:18→21:03)
[2022-03-01 19:24] VITALS: BP 129/62; PULSE 70; RESP 19; TEMP 36.9; O2SAT 99
[2022-03-01 19:54] LABS: Glucose, Whole Blood 197 mg/dL (60-115)
[2022-03-01] MEDS: Mirtazapine 7.5 MG TABLET PO (21:03)
[2022-03-01] MEDS: Atorvastatin Calcium 10 MG TABLET PO (21:03)
[2022-03-02] VITALS (7 sets, daily range): BP systolic 126–174; BP diastolic 59–87; PULSE 53–77; RESP 14–20; TEMP 35.9–37.1; O2SAT 94–98
[2022-03-02] MEDS: Levothyroxine Sodium 25 MCG TABLET PO (06:07)
[2022-03-02 07:01] LABS: Hematocrit 31.9 % (42.0-52.0); Hemoglobin 10.7 g/dl (14.0-18.0); Mean Corpuscular HGB Conc 33.5 g/dl (31.0-36.0); Mean Corpuscular Hemoglobin 27.6 pg (27.0-33.0); Mean Corpuscular Volume 82.4 fL (80.0-98.0); Mean Platelet Volume 12.4 fL (9.4-12.4); Platelet Count 306 X10*3/uL (160-400); Red Blood Count 3.87 X10*6/uL (4.60-5.80); Red Cell Distribution Width 17.3 % (11.0-16.0); White Blood Count 13.3 X10*3/uL (4.8-10.8)
[2022-03-02 07:17] LABS: Glucose, Whole Blood 114 mg/dL (60-115)
[2022-03-02 07:23] LABS: B Type Natriuretic Peptide 300 pg/mL (<100)
[2022-03-02 07:24] LABS: Anion Gap 17 (12-20); Blood Urea Nitrogen 48 mg/dL (9-16); C Reactive Protein 2.67 mg/dL (< or = 0.50); Calcium 8.7 mg/dL (8.4-10.2); Carbon Dioxide 28 mmol/L (22-29); Chloride 101 mmol/L (96-108); Creatinine Clr Calc Pharmacy 46.1; Estimated Glomerular Filt Rate 52; Glucose Fasting 102 mg/dL (60-99); Magnesium 2.2 mg/dL (1.6-2.6); Potassium 4.7 mmol/L (3.3-5.1); Sodium 141 mmol/L (135-145)
[2022-03-02] MEDS: Furosemide 40 MG TABLET PO (09:14)
[2022-03-02] MEDS: Clopidogrel Bisulfate 75 MG TABLET PO (09:14)
[2022-03-02] MEDS: amLODIPine Besylate 10 MG TABLET PO (09:14)
[2022-03-02] MEDS: Apixaban 5 MG TABLET PO ×2 (09:14→20:34)
[2022-03-02] MEDS: Cholecalciferol (Vitamin D3) 25 MCG TABLET PO (09:14)
[2022-03-02] MEDS: Amiodarone HCL 200 MG TABLET PO (09:14)
[2022-03-02] MEDS: 0.9 % Sodium Chloride Flush 3 ML SYRINGE IVFLUSH ×3 (09:15→23:47)
[2022-03-02] MEDS: dexAMETHasone sod phosphate 4 MG/ML VIAL 6 MG IVPUSH (09:15)
[2022-03-02] MEDS: timoloL maleate 0.5 % Oph Sol 5 ML DRBTL 1 DROP EYE-LEFT (09:19)
[2022-03-02] MEDS: Clotrimazole 1 % Cream 15 GM TUBE 1 APPL TOPICAL ×2 (09:20→20:34)
[2022-03-02 11:25] LABS: Glucose, Whole Blood 141 mg/dL (60-115)
--- NOTE | 2022-03-02 14:37 | P.PNIM_ITS ---
Subjective Subjective Date of Service: 03/02/22 Interval History: cc: sob interval history:no significant symptoms, Cardiovascular Cardiovascular: Reports no additional cardiovascular complaints Respiratory Respiratory: Reports no additional respiratory complaints Physical Exam Vital Signs: Vital Signs: Last Vital Signs Temp 96.6 F L 03/02/22 11:24 Pulse 57 03/02/22 11:24 Resp 20 03/02/22 11:24 BP 149/69 H 03/02/22 11:24 Pulse Ox 94 03/02/22 11:24 O2 Del Method 03/02/22 11:24 O2 Flow Rate 2 03/02/22 11:24 Oxygen Flow Rate 3 02/21/22 14:56 BMI result Body Mass Index 24.2 General: AO X 3, no acute distress Resp: Crackles bilateral, no accessory muscles used CVS: S1,S2,RRR GI: soft, non tender, non distended Neuro: motor grossly intact, alert Psych: appropriate affect, appropriate insight Objective Data Active Medications Acetaminophen (Acetaminophen 325 Mg Tablet) 650 mg PO Q6H PRN PRN Reason: Pain, Mild (Pain Scale 1-3) Amiodarone HCl (Amiodarone Hcl 200 Mg Tablet) 200 mg PO DAILY [facility] Last Admin: 03/02/22 09:14 Dose: 200 mg Documented By: NORMAN Amlodipine Besylate (Amlodipine Besylate 10 Mg Tablet) 10 mg PO DAILY [facility]; Protocol Last Admin: 03/02/22 09:14 Dose: 10 mg Documented By: NORMAN Apixaban (Apixaban 5 Mg Tablet) 5 mg PO BID [facility] Last Admin: 03/02/22 09:14 Dose: 5 mg Documented By: NORMAN Atorvastatin Calcium (Atorvastatin Calcium 10 Mg Tablet) 10 mg PO BEDTIME [facility] Last Admin: 03/01/22 21:03 Dose: 10 mg Documented By: ANITA Baricitinib (Baricitinib 2 Mg Tablet) 2 mg PO Q24H [facility] Stop: 03/08/22 14:01 Last Admin: 03/01/22 15:31 Dose: 2 mg Documented By: KARL Clopidogrel Bisulfate (Clopidogrel Bisulfate 75 Mg Tablet) 75 mg PO DAILY [facility] Last Admin: 03/02/22 09:14 Dose: 75 mg Documented By: NORMAN Clotrimazole (Clotrimazole 1 % Cream 15 Gm Tube) 1 appl TOPICAL BID [facility]; Protocol Last Admin: 03/02/22 09:20 Dose: 1 appl Documented By: NORMAN Dexamethasone Sodium Phosphate (Dexamethasone Sod Phosphate 4 Mg/Ml Vial) 6 mg IVPUSH DAILY [facility] Last Admin: 03/02/22 09:15 Dose: 6 mg Documented By: NORMAN Dextrose (Dextrose 50 % 25 Gm/50 Ml Syringe) 25 gm IVPUSH Q15M PRN; Protocol PRN Reason: per Hypoglycemia Standing Ord. Docusate Sodium (Docusate Sodium 100 Mg Capsule) 100 mg PO DAILY PRN PRN Reason: Constipation Furosemide (Furosemide 40 Mg Tablet) 40 mg PO DAILY [facility]; Protocol Last Admin: 03/02/22 09:14 Dose: 40 mg Documented By: NORMAN Glucose (Glucose Gel 15 Gm Gel..Gram.) 15 gm PO Q15M PRN; Protocol PRN Reason: per Hypoglycemia Standing Ord. Insulin Human Lispro (Insulin Lispro 100 Unit/Ml 3 Ml Vial) 0 unit SUBCUT QIDACHS [facility]; Protocol Last Admin: 03/02/22 12:36 Dose: Not Given Documented By: NORMAN Non-Admin Reason: No Insulin Coverage Levothyroxine Sodium (Levothyroxine Sodium 25 Mcg Tablet) 25 mcg PO DAILY@0600 [facility] Last Admin: 03/02/22 06:07 Dose: 25 mcg Documented By: ANITA Mirtazapine (Mirtazapine 7.5 Mg Tablet) 7.5 mg PO BEDTIME [facility] Last Admin: 03/01/22 21:03 Dose: 7.5 mg Documented By: ANITA Ondansetron HCl (Ondansetron Hcl 4 Mg/2 Ml Vial) 4 mg IVPUSH Q8H PRN PRN Reason: Nausea and Vomiting Pharmacy Consult (Consult Rx Perform Med Rec) 1 each MISCELLANE ONCE PRN PRN Reason: Consult order Sodium Chloride (0.9 % Sodium Chloride Flush 3 Ml Syringe) 3 ml IVFLUSH QSHIFT [facility] Last Admin: 03/02/22 09:15 Dose: 3 ml Documented By: NORMAN Timolol Maleate (Timolol Maleate 0.5 % Oph [place] 5 Ml Drbtl) 1 drop EYE-LEFT LUIS FELIPE LY [facility] Last Admin: 03/02/22 09:19 Dose: 1 drop Documented By: NORMAN Vitamin D (Cholecalciferol (Vitamin D3) 25 Mcg Tablet) 25 mcg PO DAILY [facility] Last Admin: 03/02/22 09:14 Dose: 25 mcg Documented By: NORMAN Labs CBC & Chem 7: 03/02/22 06:23 03/02/22 06:23 Labs: Laboratory Results - last 24 hr 03/01/22 03/01/22 03/02/22 16:03 19:51 06:23 MCV 82.4 MCH 27.6 MCHC 33.5 RDW 17.3 H Plt Count 306 MPV 12.4 Absolute Nucleated RBC 0.000 Nucleated RBC % (auto) 0.0 Anion Gap Estim Creat Clear Calc Estimated GFR POC Glucose 231 H 197 H Fasting Glucose Calcium Magnesium C-Reactive Protein B-Natriuretic Peptide 03/02/22 03/02/22 03/02/22 06:23 06:23 07:11 MCV MCH MCHC RDW Plt Count MPV Absolute Nucleated RBC Nucleated RBC % (auto) Anion Gap 17 Estim Creat Clear Calc 46.1 Estimated GFR 52 POC Glucose 114 Fasting Glucose 102 H Calcium 8.7 Magnesium 2.2 C-Reactive Protein 2.67 H B-Natriuretic Peptide 300 H 03/02/22 11:20 MCV MCH MCHC RDW Plt Count MPV Absolute Nucleated RBC Nucleated RBC % (auto) Anion Gap Estim Creat Clear Calc Estimated GFR POC Glucose 141 H Fasting Glucose Calcium Magnesium C-Reactive Protein B-Natriuretic Peptide Assessment and Plan (1) Acute respiratory failure with hypoxia: Status: Acute (2) COVID-19: Status: Acute Plan 76-year-old male with past medical history of diabetes, HTN, HLD, CAD, peripheral vascular disease, and paroxysmal AFib on apixaban presented to the hospital with complaints of shortness of breath acute hypoxic respiratory failure secondary to COVID infection Patient cannot remember if he was ever vaccinated against COVID-19 CXR showing bilateral infiltrates DC IV antibiotics per ID recommendations Wean oxygen down as tolerated Continue Decadron 6 mg daily (01/25) completed remdesivir baricitinib tried to wean patient to 2L today from 4L, but desatted to 75% acute on chronic diastolic chf will change to po lasix CHANTE on CKD stage 3 back to baseline elevated troponin likely type 2 in the setting of hypoxia with no chest pain no EKG changes suggestive of ACS Repeat EKG for any chest pain diabetes low-dose sinus scale insulin hold oral antihyperglycemics paroxysmal AFib continue Eliquis and metoprolol history of PAD continue Plavix hypothyroidism continue levothyroxine DVT prophylaxis: Eliquis reason for continued hospitalization:weaning o2 Quality Stroke Does the patient have a stroke diagnosis?: No VTE Prior VTE?: No VTE Risk Level:: Medical - moderate - high VTE Device Contraindication: Treatment Not Indicated VTE Drug Contraindication: N/A - Med Ordered
--- NOTE | 2022-03-02 14:59 | MHC.CM.PN ---
IMM 03/02/22 Per MD rounds plan to wean from supplemental oxygen. Discharge is on hold. SPO2 dropped to 70s. The patients has been notified that discharge is on hold. DP Wean from oxygen. Home with family assist and transportation.
[2022-03-02 16:01] LABS: Glucose, Whole Blood 288 mg/dL (60-115)
[2022-03-02] MEDS: Insulin Lispro 100 UNIT/ML 3 ML VIAL SUBCUT ×2 (16:48→20:34)
[2022-03-02 19:51] LABS: Glucose, Whole Blood 232 mg/dL (60-115)
[2022-03-02] MEDS: Mirtazapine 7.5 MG TABLET PO (20:34)
[2022-03-02] MEDS: Atorvastatin Calcium 10 MG TABLET PO (20:34)
[2022-03-03 03:33] VITALS: BP 147/67; PULSE 53; RESP 14; TEMP 36.1; O2SAT 100
[2022-03-03] MEDS: Levothyroxine Sodium 25 MCG TABLET PO (05:27)
[2022-03-03 07:27] LABS: Glucose, Whole Blood 83 mg/dL (60-115)
[2022-03-03] MEDS: Amiodarone HCL 200 MG TABLET PO (07:40)
[2022-03-03] MEDS: Apixaban 5 MG TABLET PO (07:40)
[2022-03-03] MEDS: Cholecalciferol (Vitamin D3) 25 MCG TABLET PO (07:40)
[2022-03-03] MEDS: dexAMETHasone sod phosphate 4 MG/ML VIAL 6 MG IVPUSH (07:40)
[2022-03-03] MEDS: Clopidogrel Bisulfate 75 MG TABLET PO (07:40)
[2022-03-03] MEDS: amLODIPine Besylate 10 MG TABLET PO (07:40)
[2022-03-03] MEDS: Furosemide 40 MG TABLET PO (07:40)
[2022-03-03] MEDS: 0.9 % Sodium Chloride Flush 3 ML SYRINGE IVFLUSH ×2 (07:41→16:53)
[2022-03-03 07:45] LABS: Hematocrit 31.2 % (42.0-52.0); Hemoglobin 10.2 g/dl (14.0-18.0); Mean Corpuscular HGB Conc 32.7 g/dl (31.0-36.0); Mean Corpuscular Hemoglobin 27.9 pg (27.0-33.0); Mean Corpuscular Volume 85.2 fL (80.0-98.0); Mean Platelet Volume 12.8 fL (9.4-12.4); Platelet Count 287 X10*3/uL (160-400); Red Blood Count 3.66 X10*6/uL (4.60-5.80); Red Cell Distribution Width 17.4 % (11.0-16.0); White Blood Count 14.9 X10*3/uL (4.8-10.8)
[2022-03-03 07:57] LABS: Anion Gap 17 (12-20); Blood Urea Nitrogen 44 mg/dL (9-16); Calcium 8.6 mg/dL (8.4-10.2); Carbon Dioxide 29 mmol/L (22-29); Chloride 102 mmol/L (96-108); Creatinine Clr Calc Pharmacy 49.9; Estimated Glomerular Filt Rate 57; Glucose Fasting 91 mg/dL (60-99); Magnesium 2.2 mg/dL (1.6-2.6); Potassium 4.9 mmol/L (3.3-5.1); Sodium 143 mmol/L (135-145)
[2022-03-03 08:00] VITALS: BP 151/69; PULSE 73; RESP 16; TEMP 35.7; O2SAT 96
[2022-03-03] MEDS: Clotrimazole 1 % Cream 15 GM TUBE 1 APPL TOPICAL (10:03)
[2022-03-03] MEDS: timoloL maleate 0.5 % Oph Sol 5 ML DRBTL 1 DROP EYE-LEFT (10:04)
[2022-03-03 11:33] VITALS: BP 151/66; PULSE 63; RESP 16; TEMP 35.7; O2SAT 96
[2022-03-03 11:34] LABS: Glucose, Whole Blood 133 mg/dL (60-115)
[2022-03-03 12:26] VITALS: PULSE 73; PULSE 77; O2SAT 83; O2SAT 89
[2022-03-03 14:57] VITALS: BP 144/67; PULSE 58; RESP 16; TEMP 36; O2SAT 96
--- NOTE | 2022-03-03 15:14 | HO.PM.IMPN ---
Subjective Subjective Date of Service: 03/03/22 Interval History: The patient was seen and evaluated this morning Laying in bed, wean the oxygen as tolerated to 8 L today still having weakness and dyspnea with exertion otherwise feels better No reported other overnight events. Systemic review: No fever, chills but has generalized weakness No chest pain, palpitation Dyspnea on exertion and coughing No abdominal pain, nausea or vomiting No urinary symptoms No reported rash Physical Exam Vital Signs: Vital Signs: Last Vital Signs Temp 96.8 F 03/03/22 14:57 Pulse 58 03/03/22 14:57 Resp 16 03/03/22 14:57 BP 144/67 H 03/03/22 14:57 Pulse Ox 96 03/03/22 14:57 O2 Del Method 03/03/22 14:57 O2 Flow Rate 8 03/03/22 14:57 Oxygen Flow Rate 3 02/21/22 14:56 BMI result Body Mass Index 24.2 Const: Other: Constitutional : Awake, interactive, in mild respiratory distress Neck : Normal inspection, Supple Cardiovascular : RRR, no JVP, no lower extremity edema Respiratory : good bilateral air entry, decreased bilateral basal crackles , on oxygen supplement Gastrointestinal: soft, lax, Normal bowel sounds, Non tender Skin : Warm, Dry Neurological : Alert & oriented x3, No focal deficit Objective Data Active Medications Acetaminophen (Acetaminophen 325 Mg Tablet) 650 mg PO Q6H PRN PRN Reason: Pain, Mild (Pain Scale 1-3) Amiodarone HCl (Amiodarone Hcl 200 Mg Tablet) 200 mg PO DAILY [facility] Last Admin: 03/03/22 07:40 Dose: 200 mg Documented By: KARL Amlodipine Besylate (Amlodipine Besylate 10 Mg Tablet) 10 mg PO DAILY [facility]; Protocol Last Admin: 03/03/22 07:40 Dose: 10 mg Documented By: KARL Apixaban (Apixaban 5 Mg Tablet) 5 mg PO BID [facility] Last Admin: 03/03/22 07:40 Dose: 5 mg Documented By: KARL Atorvastatin Calcium (Atorvastatin Calcium 10 Mg Tablet) 10 mg PO BEDTIME [facility] Last Admin: 03/02/22 20:34 Dose: 10 mg Documented By: CASANDRA Baricitinib (Baricitinib 2 Mg Tablet) 2 mg PO Q24H [facility] Stop: 03/08/22 14:01 Last Admin: 03/03/22 14:09 Dose: 2 mg Documented By: KARL Clopidogrel Bisulfate (Clopidogrel Bisulfate 75 Mg Tablet) 75 mg PO DAILY [facility] Last Admin: 03/03/22 07:40 Dose: 75 mg Documented By: KARL Clotrimazole (Clotrimazole 1 % Cream 15 Gm Tube) 1 appl TOPICAL BID [facility]; Protocol Last Admin: 03/03/22 10:03 Dose: 1 appl Documented By: KARL Dexamethasone Sodium Phosphate (Dexamethasone Sod Phosphate 4 Mg/Ml Vial) 6 mg IVPUSH DAILY [facility] Last Admin: 03/03/22 07:40 Dose: 6 mg Documented By: KARL Dextrose (Dextrose 50 % 25 Gm/50 Ml Syringe) 25 gm IVPUSH Q15M PRN; Protocol PRN Reason: per Hypoglycemia Standing Ord. Docusate Sodium (Docusate Sodium 100 Mg Capsule) 100 mg PO DAILY PRN PRN Reason: Constipation Furosemide (Furosemide 40 Mg Tablet) 40 mg PO DAILY [facility]; Protocol Last Admin: 03/03/22 07:40 Dose: 40 mg Documented By: KARL Glucose (Glucose Gel 15 Gm Gel..Gram.) 15 gm PO Q15M PRN; Protocol PRN Reason: per Hypoglycemia Standing Ord. Insulin Human Lispro (Insulin Lispro 100 Unit/Ml 3 Ml Vial) 0 unit SUBCUT QIDACHS [facility]; Protocol Last Admin: 03/03/22 12:01 Dose: Not Given Documented By: KARL Non-Admin Reason: No Insulin Coverage Levothyroxine Sodium (Levothyroxine Sodium 25 Mcg Tablet) 25 mcg PO DAILY@0600 [facility] Last Admin: 03/03/22 05:27 Dose: 25 mcg Documented By: CASANDRA Mirtazapine (Mirtazapine 7.5 Mg Tablet) 7.5 mg PO BEDTIME [facility] Last Admin: 03/02/22 20:34 Dose: 7.5 mg Documented By: CASANDRA Ondansetron HCl (Ondansetron Hcl 4 Mg/2 Ml Vial) 4 mg IVPUSH Q8H PRN PRN Reason: Nausea and Vomiting Pharmacy Consult (Consult Rx Perform Med Rec) 1 each MISCELLANE ONCE PRN PRN Reason: Consult order Sodium Chloride (0.9 % Sodium Chloride Flush 3 Ml Syringe) 3 ml IVFLUSH QSHIFT [facility] Last Admin: 03/03/22 07:41 Dose: 3 ml Documented By: KARL Timolol Maleate (Timolol Maleate 0.5 % Oph [place] 5 Ml Drbtl) 1 drop EYE-LEFT DAILY [facility] Last Admin: 03/03/22 10:04 Dose: 1 drop Documented By: KARL Vitamin D (Cholecalciferol (Vitamin D3) 25 Mcg Tablet) 25 mcg PO DAILY [facility] Last Admin: 03/03/22 07:40 Dose: 25 mcg Documented By: KARL Labs CBC & Chem 7: 03/03/22 07:03 03/03/22 07:03 Labs: Laboratory Results - last 24 hr 03/02/22 03/02/22 03/03/22 15:56 19:44 07:03 MCV 85.2 MCH 27.9 MCHC 32.7 RDW 17.4 H Plt Count 287 MPV 12.8 H Absolute Nucleated RBC 0.000 Nucleated RBC % (auto) 0.0 Anion Gap Estim Creat Clear Calc Estimated GFR POC Glucose 288 H 232 H Fasting Glucose Calcium Magnesium 03/03/22 03/03/22 03/03/22 07:03 07:24 11:18 MCV MCH MCHC RDW Plt Count MPV Absolute Nucleated RBC Nucleated RBC % (auto) Anion Gap 17 Estim Creat Clear Calc 49.9 Estimated GFR 57 POC Glucose 83 133 H Fasting Glucose 91 Calcium 8.6 Magnesium 2.2 Assessment and Plan (1) Acute respiratory failure with hypoxia: Status: Acute (2) COVID-19: Status: Acute Plan 76-year-old male with past medical history of diabetes, HTN, HLD, CAD, peripheral vascular disease, and paroxysmal AFib on apixaban presented to the hospital with complaints of shortness of breath acute hypoxic respiratory failure secondary to COVID infection Patient cannot remember if he was ever vaccinated against COVID-19 CXR showing bilateral infiltrates DC IV antibiotics per ID recommendations Wean oxygen down as tolerated Continue Decadron 6 mg daily (01/25) completed remdesivir baricitinib Wean oxygen down as tolerated Start physical therapy, incentive spirometry Repeat CXR acute on chronic diastolic chf Looks euvolemic Continue po lasix CHANTE on CKD stage 3 back to baseline elevated troponin likely type 2 in the setting of hypoxia with no chest pain no EKG changes suggestive of ACS Repeat EKG for any chest pain diabetes low-dose sinus scale insulin hold oral antihyperglycemics paroxysmal AFib continue Eliquis and metoprolol history of PAD continue Plavix hypothyroidism continue levothyroxine DVT prophylaxis: Eliquis reason for continued hospitalization: Continue to wean oxygen down as tolerated pending safe discharge plan Quality Stroke Does the patient have a stroke diagnosis?: No VTE Prior VTE?: No VTE Risk Level:: Medical - moderate - high VTE Device Contraindication: Treatment Not Indicated VTE Drug Contraindication: N/A - Med Ordered
[2022-03-03 15:32] LABS: Glucose, Whole Blood 241 mg/dL (60-115)
[2022-03-03] MEDS: Insulin Lispro 100 UNIT/ML 3 ML VIAL SUBCUT (16:53)
[2022-03-03 19:06] VITALS: BP 154/69; PULSE 60; RESP 16; TEMP 36.1; O2SAT 96
[2022-03-03 19:26] LABS: Glucose, Whole Blood 191 mg/dL (60-115)
[2022-03-04] VITALS (9 sets, daily range): BP systolic 114–171; BP diastolic 54–76; PULSE 54–63; RESP 17–20; TEMP 36–36.9; O2SAT 93–99
[2022-03-04] MEDS: Mirtazapine 7.5 MG TABLET PO ×2 (01:04→20:57)
[2022-03-04] MEDS: Atorvastatin Calcium 10 MG TABLET PO ×2 (01:04→20:56)
[2022-03-04] MEDS: Apixaban 5 MG TABLET PO ×3 (01:04→20:57)
[2022-03-04] MEDS: Insulin Lispro 100 UNIT/ML 3 ML VIAL SUBCUT ×2 (01:05→20:57)
[2022-03-04] MEDS: Clotrimazole 1 % Cream 15 GM TUBE 1 APPL TOPICAL ×3 (01:05→20:59)
[2022-03-04] MEDS: 0.9 % Sodium Chloride Flush 3 ML SYRINGE IVFLUSH ×4 (01:10→23:48)
[2022-03-04] MEDS: Levothyroxine Sodium 25 MCG TABLET PO (06:45)
[2022-03-04 07:54] LABS: Glucose, Whole Blood 90 mg/dL (60-115)
[2022-03-04] MEDS: Amiodarone HCL 200 MG TABLET PO (10:20)
[2022-03-04] MEDS: guaiFENesin LA 600 MG TAB.ER.12H 1200 MG PO ×2 (10:20→20:56)
[2022-03-04] MEDS: Azithromycin 500 MG TABLET PO (10:20)
[2022-03-04] MEDS: amLODIPine Besylate 10 MG TABLET PO (10:20)
[2022-03-04] MEDS: predniSONE 20 MG TABLET 40 MG PO (10:20)
[2022-03-04] MEDS: Cholecalciferol (Vitamin D3) 25 MCG TABLET PO (10:20)
[2022-03-04] MEDS: Furosemide 40 MG TABLET PO (10:21)
[2022-03-04] MEDS: Clopidogrel Bisulfate 75 MG TABLET PO (10:21)
[2022-03-04] MEDS: timoloL maleate 0.5 % Oph Sol 5 ML DRBTL 1 DROP EYE-LEFT (10:23)
[2022-03-04 11:12] LABS: Glucose, Whole Blood 77 mg/dL (60-115)
--- NOTE | 2022-03-04 11:17 | MHC.CM.PN ---
PT is now recommending STR. Patient is Covid (+), not Covid vax'd and will need [facility] auth. A SNF search has been initiated and CM will follow for dc planning.
--- NOTE | 2022-03-04 12:00 | HO.PM.IMPN ---
Subjective Subjective Date of Service: 03/04/22 Interval History: The patient was seen and evaluated this morning Laying in bed, oxygen weaned down to 3 L Reports feeling better overall but quickly dropped his oxygen sat with ambulation No reported other overnight events. Systemic review: No fever, chills but has generalized weakness No chest pain, palpitation Dyspnea on exertion and coughing No abdominal pain, nausea or vomiting No urinary symptoms No reported rash Physical Exam Vital Signs: Vital Signs: Last Vital Signs Temp 97.4 F 03/04/22 07:43 Pulse 61 03/04/22 07:43 Resp 20 03/04/22 07:43 BP 165/76 H 03/04/22 07:43 Pulse Ox 95 03/04/22 10:25 O2 Del Method 03/04/22 10:25 O2 Flow Rate 3 03/04/22 10:25 Oxygen Flow Rate 3 02/21/22 14:56 BMI result Body Mass Index 24.2 Const: Other: Constitutional : Awake, interactive, in mild respiratory distress Neck : Normal inspection, Supple Cardiovascular : RRR, no JVP, no lower extremity edema Respiratory : good bilateral air entry, decreased bilateral basal crackles , on oxygen supplement Gastrointestinal: soft, lax, Normal bowel sounds, Non tender Skin : Warm, Dry Neurological : Alert & oriented x3, No focal deficit Objective Data Active Medications Acetaminophen (Acetaminophen 325 Mg Tablet) 650 mg PO Q6H PRN PRN Reason: Pain, Mild (Pain Scale 1-3) Amiodarone HCl (Amiodarone Hcl 200 Mg Tablet) 200 mg PO DAILY [facility] Last Admin: 03/04/22 10:20 Dose: 200 mg Documented By: RAO Amlodipine Besylate (Amlodipine Besylate 10 Mg Tablet) 10 mg PO DAILY [facility]; Protocol Last Admin: 03/04/22 10:20 Dose: 10 mg Documented By: RAO Apixaban (Apixaban 5 Mg Tablet) 5 mg PO BID [facility] Last Admin: 03/04/22 10:21 Dose: 5 mg Documented By: RAO Atorvastatin Calcium (Atorvastatin Calcium 10 Mg Tablet) 10 mg PO BEDTIME [facility] Last Admin: 03/04/22 01:04 Dose: 10 mg Documented By: EDEL Azithromycin (Azithromycin 500 Mg Tablet) 500 mg PO Q24H [facility] Stop: 03/08/22 09:01 Last Admin: 03/04/22 10:20 Dose: 500 mg Documented By: RAO Baricitinib (Baricitinib 2 Mg Tablet) 2 mg PO Q24H [facility] Stop: 03/08/22 14:01 Last Admin: 03/03/22 14:09 Dose: 2 mg Documented By: KALR Clopidogrel Bisulfate (Clopidogrel Bisulfate 75 Mg Tablet) 75 mg PO DAILY [facility] Last Admin: 03/04/22 10:21 Dose: 75 mg Documented By: RAO Clotrimazole (Clotrimazole 1 % Cream 15 Gm Tube) 1 appl TOPICAL BID [facility]; Protocol Last Admin: 03/04/22 10:23 Dose: 1 appl Documented By: RAO Dextrose (Dextrose 50 % 25 Gm/50 Ml Syringe) 25 gm IVPUSH Q15M PRN; Protocol PRN Reason: per Hypoglycemia Standing Ord. Docusate Sodium (Docusate Sodium 100 Mg Capsule) 100 mg PO DAILY PRN PRN Reason: Constipation Furosemide (Furosemide 40 Mg Tablet) 40 mg PO DAILY [facility]; Protocol Last Admin: 03/04/22 10:21 Dose: 40 mg Documented By: RAO Glucose (Glucose Gel 15 Gm Gel..Gram.) 15 gm PO Q15M PRN; Protocol PRN Reason: per Hypoglycemia Standing Ord. Guaifenesin (Guaifenesin La 600 Mg Tab.Er.12h) 1,200 mg PO BID [facility] Last Admin: 03/04/22 10:20 Dose: 1,200 mg Documented By: RAO Insulin Human Lispro (Insulin Lispro 100 Unit/Ml 3 Ml Vial) 0 unit SUBCUT QIDACHS [facility]; Protocol Last Admin: 03/04/22 11:05 Dose: Not Given Documented By: RAO Non-Admin Reason: No Insulin Coverage Comments: POC 77 Levothyroxine Sodium (Levothyroxine Sodium 25 Mcg Tablet) 25 mcg PO DAILY@0600 [facility] Last Admin: 03/04/22 06:45 Dose: 25 mcg Documented By: EDEL Mirtazapine (Mirtazapine 7.5 Mg Tablet) 7.5 mg PO BEDTIME [facility] Last Admin: 03/04/22 01:04 Dose: 7.5 mg Documented By: EDEL Ondansetron HCl (Ondansetron Hcl 4 Mg/2 Ml Vial) 4 mg IVPUSH Q8H PRN PRN Reason: Nausea and Vomiting Pharmacy Consult (Consult Rx Perform Med Rec) 1 each MISCELLANE ONCE PRN PRN Reason: Consult order Prednisone (Prednisone 20 Mg Tablet) 40 mg PO DAILY [facility] Last Admin: 03/04/22 10:20 Dose: 40 mg Documented By: RAO Sodium Chloride (0.9 % Sodium Chloride Flush 3 Ml Syringe) 3 ml IVFLUSH QSHIFT [facility] Last Admin: 03/04/22 10:20 Dose: 3 ml Documented By: RAO Timolol Maleate (Timolol Maleate 0.5 % [place]ph [place] 5 Ml Drbtl) 1 drop EYE-LEFT DAILY [facility] Last Admin: 03/04/22 10:23 Dose: 1 drop Documented By: RAO Vitamin D (Cholecalciferol (Vitamin D3) 25 Mcg Tablet) 25 mcg PO DAILY [facility] Last Admin: 03/04/22 10:20 Dose: 25 mcg Documented By: RAO Labs CBC & Chem 7: 03/03/22 07:03 03/03/22 07:03 Labs: Laboratory Results - last 24 hr 03/03/22 03/03/22 03/04/22 15:28 19:10 07:49 POC Glucose 241 H 191 H 90 03/04/22 11:03 POC Glucose 77 Assessment and Plan (1) Acute respiratory failure with hypoxia: Status: Acute (2) COVID-19: Status: Acute Plan 76-year-old male with past medical history of diabetes, HTN, HLD, CAD, peripheral vascular disease, and paroxysmal AFib on apixaban presented to the hospital with complaints of shortness of breath acute hypoxic respiratory failure secondary to COVID infection Patient cannot remember if he was ever vaccinated against COVID-19 Repeated CXR showing bilateral infiltrates resembling atypical VS viral illness Start azithromycin 500 mg daily DC Decadron 6 mg daily (01/25), start p.o. prednisone by tomorrow completed remdesivir Continue baricitinib Wean oxygen down as tolerated Continue physical therapy, incentive spirometry Repeat CXR acute on chronic diastolic chf Looks euvolemic Continue po lasix Physical deconditioning PT recommended STIR placement CHANTE on CKD stage 3 back to baseline elevated troponin likely type 2 in the setting of hypoxia with no chest pain no EKG changes suggestive of ACS Repeat EKG for any chest pain diabetes low-dose sinus scale insulin hold oral antihyperglycemics paroxysmal AFib continue Eliquis and metoprolol history of PAD continue Plavix hypothyroidism continue levothyroxine DVT prophylaxis: Eliquis reason for continued hospitalization: Continue to wean oxygen down as tolerated pending safe discharge plan Quality Stroke Does the patient have a stroke diagnosis?: No VTE Prior VTE?: No VTE Risk Level:: Medical - moderate - high VTE Device Contraindication: Treatment Not Indicated VTE Drug Contraindication: N/A - Med Ordered
--- NOTE | 2022-03-04 13:44 | MHC.CM.PN ---
Per MD, Patient is medically cleared for dc to SNF/STR today. CM spoke with Patient at his room Ext. [phone] and per Patient's request, CM reached out to Patient's for further dc planning discussion/choices. CM was only able to leave a message for Patient's but CM did explain that there are 2 facilities that accept Patients's insurance AND have Covid (+) beds available ([facility] & [facility]). CM awaits a return call from Patient's to obtain SNF choice.
--- NOTE | 2022-03-04 14:14 | MHC.CM.PN ---
addendum to previous CM note: IMM addressed with /HCP/Cathryn over the phone at [phone] and original will be mailed certified letter to her and a copy has been placed on the chart.
--- NOTE | 2022-03-04 14:21 | MHC.CM.PN ---
Per Patient's /HCP's request, [facility] has accepted [facility] bed offer and requested that [facility] initiate the auth process with [facility]. [facility]A will follow.
[2022-03-04 16:15] LABS: Glucose, Whole Blood 125 mg/dL (60-115)
--- NOTE | 2022-03-04 17:07 | PC.NURSE ---
AT START OF SHIFT PATIENT ON 7L [place] TITRATED DOWN PER MD THROUGHOUT THE DAY WITH 02 GOAL > 90% CURRENTLY ON 2L [place] WITH 02 SAT 91% - TOLERATING WELL, DENIES FEELING SOB.
[2022-03-04 19:51] LABS: Glucose, Whole Blood 232 mg/dL (60-115)
[2022-03-05 03:41] VITALS: BP 130/61; PULSE 57; RESP 18; TEMP 36.4; O2SAT 99
[2022-03-05] MEDS: Levothyroxine Sodium 25 MCG TABLET PO (06:33)
[2022-03-05 07:29] VITALS: BP 135/68; PULSE 59; RESP 17; TEMP 36.7; O2SAT 99
[2022-03-05 07:44] LABS: Glucose, Whole Blood 79 mg/dL (60-115)
[2022-03-05] MEDS: guaiFENesin LA 600 MG TAB.ER.12H 1200 MG PO (08:36)
[2022-03-05] MEDS: timoloL maleate 0.5 % Oph Sol 5 ML DRBTL 1 DROP EYE-LEFT (08:36)
[2022-03-05] MEDS: Azithromycin 500 MG TABLET PO (08:36)
[2022-03-05] MEDS: 0.9 % Sodium Chloride Flush 3 ML SYRINGE IVFLUSH (08:36)
[2022-03-05] MEDS: Clotrimazole 1 % Cream 15 GM TUBE 1 APPL TOPICAL (08:36)
[2022-03-05] MEDS: Furosemide 40 MG TABLET PO (08:36)
[2022-03-05] MEDS: Clopidogrel Bisulfate 75 MG TABLET PO (08:36)
[2022-03-05] MEDS: Cholecalciferol (Vitamin D3) 25 MCG TABLET PO (08:37)
[2022-03-05] MEDS: predniSONE 20 MG TABLET 40 MG PO (08:37)
[2022-03-05] MEDS: Amiodarone HCL 200 MG TABLET PO (08:37)
[2022-03-05] MEDS: Apixaban 5 MG TABLET PO (08:37)
[2022-03-05] MEDS: amLODIPine Besylate 10 MG TABLET PO (08:37)
--- NOTE | 2022-03-05 10:09 | MHC.CM.PN ---
Per MD, Patient will be medically cleared for dc to SNF/STR today. Patient will dc to [facility] today at 1PM via [facility]. Patient and his /HCP/Cathryn (via left v@ [phone]) are aware of the dc plan. IMM addressed yesterday.
[2022-03-05 11:20] VITALS: BP 135/76; PULSE 68; RESP 17; TEMP 36.6; O2SAT 98
[2022-03-05 11:31] LABS: Glucose, Whole Blood 104 mg/dL (60-115)
--- NOTE | 2022-03-05 11:44 | PM.DS ---
DS: Providers Provider Date of Service: 03/05/22 Date of admission: 02/21/22 19:49 Primary care physician: Jayla Murrieta MD Consults: 02/22/22 08:21 Consult to Infectious Diseases Routine Consulting Provider: Carmencita Augustine Reason for consultation: Covid19 w hypoxia, for your eval and rec DS: Diagnosis Discharge Diagnosis (1) Acute respiratory failure with hypoxia: Status: Acute (2) COVID-19: Status: Acute (3) Elevated troponin: Status: Acute (4) CHANTE (acute kidney injury): Status: Acute DS: Summary Hospital Course Hospital Course: Admission note HPI 76-year-old male past medical history of diabetes, history of asthma, HLD, HTN, history of osteomyelitis of the left foot, history of peripheral vascular disease, who presents to the hospital with complaints of shortness of breath since Tuesday.? He is complaining of a cough, sputum production, as well as generalized weakness, nausea, no vomiting.? No abdominal pain, 1 episode of diarrhea, no urinary symptoms and no lower extremity edema.? Patient is COVID positive, when I asked him about his COVID vaccine, he states that he does not remember.? He does not use oxygen at home.? Patient denies any orthopnea or PND.? On arrival to the ED patient hemodynamically stable found to be hypoxic, when I saw the patient he was on 2 L of oxygen satting 86%. Labs are significant for WBC count of 5.3, hemoglobin of 10.7, medical 33, creatinine of 1.87 with a baseline of 1.25, troponin of 39 decreased 37, BNP of 442, COVID-19 positive Hospital course The patient was admitted to the hospital for evaluation of shortness of breath. Found to be in acute hypoxic respiratory failure secondary to COVID-19 infection and evidence of acute on chronic diastolic heart failure. Treated with IV steroids, antibiotics, remdesivir and baricitinib with good response over the course of hospital stay as oxygen requirement was weaned down gradually with good tolerance. Patient continued to require oxygen supplement as he was desaturating upon ambulation. Repeated chest x-ray showed bilateral infiltrates similar to atypical/viral illnesses. Restarted on 5 days course of azithromycin to be finished as outpatient. To continue using incentive spirometry. Evaluated by physical therapy team for physical deconditioning. Recommended short-term rehab. Noted to have mildly elevated creatinine at time of presentation that improved back to his CKD 3 baseline during the hospital stay. Noted to have elevated troponin at time of presentation believed to be secondary to hypoxia not due to ACS with no acute EKG changes or chest pain reported. Continue azithromycin as prescribed Continue tapering dose of steroids Start Lasix 20 mg daily Continue to wean down oxygen requirement as tolerated To follow-up with your PCP within the next 2 weeks Time Spent with Patient Time attestation: Total time spent providing and/or coordinating discharge services: Discharge coordination time: Greater than 30 minutes Quality: Safe Use of Opioids Does Pt have an Active Cancer Diagnosis on the Problem List?: No Quality: Stroke Does the patient have a stroke diagnosis?: No Physical Exam Vital Signs: Vital Signs: Last Vital Signs Temp 97.9 F 03/05/22 11:20 Pulse 68 03/05/22 11:20 Resp 17 03/05/22 11:20 BP 135/76 03/05/22 11:20 Pulse Ox 98 03/05/22 11:20 O2 Del Method 03/05/22 11:20 O2 Flow Rate 3 03/05/22 11:20 Oxygen Flow Rate 3 02/21/22 14:56 BMI result Body Mass Index 24.2 Const: Other: Constitutional : Awake, interactive, not in distress Neck : Normal inspection, Supple Cardiovascular : RRR, no JVP, no lower extremity edema Respiratory : good bilateral air entry, no crackles , on oxygen supplement Gastrointestinal: soft, lax, Normal bowel sounds, Non tender Skin : Warm, Dry Neurological : Alert & oriented x3, No focal deficit DS: Data Data Completed and Pending Completed studies during hospitalization [Text1]: Procedures Detachment at Right 1st Toe, Complete, Open Approach (07/24/20) Detachment at Right Foot, Partial 1st Ray, Open Approach (07/21/21) Detachment at Right Foot, Partial 2nd Ray, Open Approach (07/21/21) Detachment at Right Foot, Partial 3rd Ray, Open Approach (07/21/21) Detachment at Right Foot, Partial 4th Ray, Open Approach (07/21/21) Detachment at Right Foot, Partial 5th Ray, Open Approach (07/21/21) Dilation of Right Anterior Tibial Artery, Percutaneous Approach (07/24/20) Drainage of Right Foot, Open Approach (07/24/20) Excision of Right Foot Skin, External Approach (11/29/20) Excision of Right Foot Subcutaneous Tissue and Fascia, Open Approach (07/24/20) Insertion of Infusion Device into Superior Vena Cava, Percutaneous Approach (06/30/21) Insertion of Intraluminal Device into Right Internal Iliac Artery, Percutaneous Approach (11/29/20) Labs on day of discharge: Laboratory Results - last 24 hr 03/04/22 03/04/22 03/05/22 16:10 19:20 07:34 POC Glucose 125 H 232 H 79 03/05/22 11:23 POC Glucose 104 Imaging Chest x-ray: Radiologist's impression: ITS Impressions Chest X-Ray 02/21/22 16:10 IMPRESSION: Bilateral infiltrates Chest X-Ray 03/03/22 16:16 IMPRESSION: -Scattered bilateral groundglass opacities, increased from prior exam 02/21/2022. -Findings may suggest atypical or viral pneumonia. Clinically correlate. Discharge Plan Discharge Anticipated Discharge Date/Time: 03/05/22 11:36 Patient Disposition: er [facility] Discharge Diagnosis: Acute hypoxic respiratory failure COVID-19 infection Acute kidney injury [facility]Outside[facility] - 1 Week Po,Jayla Goodman MD [Primary Care Provider] - 1 Week Discharge Medications: New furosemide 20 mg tablet 20 mg PO DAILY Qty: 30 0RF azithromycin 500 mg Tablet 500 mg PO Q24H Qty: 3 0RF prednisone 10 mg tablet See Taper PO DAILY Qty: 30 0RF Taper: Prednisone 40 mg daily for 3 Days and 0 Hour 30 mg daily for 3 Days and 0 Hour 20 mg daily for 3 Days and 0 Hour 10 mg daily for 3 Days and 0 Hour Continued mirtazapine 7.5 mg tablet 7.5 mg PO BEDTIME Qty: 90 2RF clopidogrel [Plavix] 75 mg tablet 75 mg PO DAILY Qty: 90 2RF metoprolol succinate 100 mg tablet extended release 24 hr 100 mg PO DAILY Qty: 90 2RF Protocol: Hold for SBP/HR < HOLD for SBP < : 90 HOLD for HR < : 60 amlodipine 10 mg tablet 10 mg PO DAILY 90 Days Qty: 90 3RF metformin 500 mg tablet 500 mg PO BIDWM Qty: 180 2RF atorvastatin 10 mg tablet 10 mg PO BEDTIME Qty: 90 0RF clotrimazole 1 % cream 1 appl topical BID 28 Days Qty: 45 1RF Rx Instructions: apply to left foot toenails levothyroxine [Synthroid] 25 mcg tablet 25 mcg PO DAILY@0600 cholecalciferol (vitamin D3) 25 mcg (1,000 unit) capsule 25 mcg PO DAILY Eliquis 5 mg tablet 5 mg PO BID Qty: 60 0RF amiodarone 200 mg tablet 200 mg PO DAILY Qty: 30 0RF timolol maleate 0.5 % drops 1 drp ophthalmic-Left DAILY Discharge Orders: Discharge Order (Routine); Ordered 03/05/22 Ordered By: Dewey Reyna Diet: Advance to usual diet Activity on Discharge: As tolerated Stand Alone Forms: Patient Portal Discharge page Print Language: Czech Care Plan Goals: Read below Health Concerns: Read below Plan of Treatment: Read below Assessment: You were admitted to the hospital for evaluation of difficulty breathing found to be in acute hypoxic respiratory failure from COVID 19 infection and heart failure treated with antiviral medications, steroids and water pills with good response over the course of hospital stay as your oxygen requirement was weaned down. Continue azithromycin as prescribed Continue tapering dose of steroids Start Lasix 20 mg daily Continue to wean down oxygen requirement as tolerated To follow-up with your PCP within the next 2 weeks
[2022-03-05 12:21] LABS: COVID-19 Test Negative (Negative); IDNOW Serial# 16C4AD1C
== END 2022-03-05 15:09 | disposition skilled nursing facility (03) | DRG 177 ==
LOC: HO.ED 19:23 → HO.EDOVER 20:13 → HO.IMC 02-22 16:12
PROVIDERS: Hospitalist; Internal Medicine; Physician Assistant Medical; Admitting Provider Internal Medicine; Emergency Provider Emergency Medicine; PCP Internal Medicine; Visit Provider Student in an Organized Health Care Education/Training Program
DX: U07.1 COVID-19 (principal); I21.A1 Myocardial infarction type 2; I50.33 Acute on chronic diastolic (congestive) heart failure; J96.01 Acute respiratory failure with hypoxia; J12.82 Pneumonia due to coronavirus disease 2019; I13.0 Hypertensive heart and chronic kidney disease with heart failure and stage 1 through stage 4 chronic kidney disease, or unspecified chronic kidney disease; N17.9 Acute kidney failure, unspecified; I25.10 Atherosclerotic heart disease of native coronary artery without angina pectoris; E11.40 Type 2 diabetes mellitus with diabetic neuropathy, unspecified; E03.9 Hypothyroidism, unspecified; E11.51 Type 2 diabetes mellitus with diabetic peripheral angiopathy without gangrene; N18.30 Chronic kidney disease, stage 3 unspecified; R00.1 Bradycardia, unspecified; I48.0 Paroxysmal atrial fibrillation; E11.22 Type 2 diabetes mellitus with diabetic chronic kidney disease; Z87.891 Personal history of nicotine dependence; Z79.01 Long term (current) use of anticoagulants; Z79.02 Long term (current) use of antithrombotics/antiplatelets; Z79.84 Long term (current) use of oral hypoglycemic drugs; Z79.899 Other long term (current) drug therapy
CPT/HCPCS: 0241U; 36415; 71045; 80048; 80053; 81001; 82803; 82947; 83605; 83615; 83735; 83880; 84145; 84484; 85025; 85027; 86140; 87040; 87635; 93005; 97162; 99285; J0248; J0456; J0696; J1100; J1940; J2405; J3475

== ENCOUNTER 2022-03-08 06:16 | Outpatient (REF) | payer MEDICARE, SELFPAY ==
[2022-03-08 06:42] LABS: Hematocrit 27.7 % (42.0-52.0); Hemoglobin 9.3 g/dl (14.0-18.0); Mean Corpuscular HGB Conc 33.6 g/dl (31.0-36.0); Mean Corpuscular Hemoglobin 28.5 pg (27.0-33.0); Mean Platelet Volume 12.8 fL (9.4-12.4); NRBC Pct Auto 0.1 /100WBC (0.0-0.2); Platelet Count 190 X10*3/uL (160-400); Red Blood Count 3.26 X10*6/uL (4.60-5.80); Red Cell Distribution Width 18.6 % (11.0-16.0); White Blood Count 16.2 X10*3/uL (4.8-10.8)
[2022-03-08 07:04] LABS: Alanine Aminotransferase 129 U/L (0-40); Albumin Level 2.5 g/dL (3.5-5.0); Alkaline Phosphatase 194 U/L (39-117); Anion Gap 14 (12-20); Aspartate Amino Transferase 101 U/L (5-37); Blood Urea Nitrogen 46 mg/dL (9-16); Carbon Dioxide 26 mmol/L (22-29); Chloride 102 mmol/L (96-108); Estimated Glomerular Filt Rate 47; Glucose Random 66 mg/dL (60-115); Potassium 3.9 mmol/L (3.3-5.1); Sodium 138 mmol/L (135-145)
== END 2022-03-08 06:17 | disposition home or self-care (01) ==
LOC: HO.MMNH1L 06:16
PROVIDERS: Visit Provider Family Medicine
DX: I48.0 Paroxysmal atrial fibrillation (principal); E11.9 Type 2 diabetes mellitus without complications; E78.5 Hyperlipidemia, unspecified
CPT/HCPCS: 36415; 80053; 85027

== ENCOUNTER 2022-03-15 07:03 | Outpatient (REF) | payer MEDICARE, SELFPAY ==
[2022-03-15 07:46] LABS: Hematocrit 31.4 % (42.0-52.0); Hemoglobin 10.2 g/dl (14.0-18.0); Mean Corpuscular HGB Conc 32.5 g/dl (31.0-36.0); Mean Corpuscular Hemoglobin 28.7 pg (27.0-33.0); Mean Corpuscular Volume 88.5 fL (80.0-98.0); Red Blood Count 3.55 X10*6/uL (4.60-5.80); Red Cell Distribution Width 20.6 % (11.0-16.0); White Blood Count 9.7 X10*3/uL (4.8-10.8)
[2022-03-15 08:02] LABS: Platelet Count 119 X10*3/uL (160-400)
[2022-03-15 08:22] LABS: Anion Gap 14 (12-20); Blood Urea Nitrogen 43 mg/dL (9-16); Calcium 8.6 mg/dL (8.4-10.2); Carbon Dioxide 24 mmol/L (22-29); Chloride 105 mmol/L (96-108); Estimated Glomerular Filt Rate 46; Glucose Random 81 mg/dL (60-115); Potassium 4.2 mmol/L (3.3-5.1); Sodium 139 mmol/L (135-145)
== END 2022-03-15 07:04 | disposition home or self-care (01) ==
LOC: HO.MMNH1L 07:03
PROVIDERS: Visit Provider Family Medicine
DX: E11.9 Type 2 diabetes mellitus without complications (principal); I73.9 Peripheral vascular disease, unspecified; E78.5 Hyperlipidemia, unspecified
CPT/HCPCS: 36415; 80048; 85027

== ENCOUNTER 2022-03-22 07:30 | Outpatient (REF) | payer MEDICARE, SELFPAY ==
[2022-03-22 07:17] LABS: MANUAL DIFF FLAG NO
[2022-03-22 07:49] LABS: Basophils Percent Auto 0.5 % (0-2); Eosinophils Absolute Auto 0.2 X10*3/uL (0.0-0.4); Eosinophils Percent Auto 1.8 % (0-4); Hematocrit 29.2 % (42.0-52.0); Hemoglobin 9.7 g/dl (14.0-18.0); Imm Gran Abs Auto 0.11 X10*3/uL (0.00-0.03); Imm Gran Pct Auto 1.3 % (0.0-0.4); Lymphocytes Absolute Auto 0.9 X10*3/uL (1.2-4.9); Lymphocytes Percent Auto 10.5 % (20-40); Mean Corpuscular HGB Conc 33.2 g/dl (31.0-36.0); Mean Corpuscular Hemoglobin 29.6 pg (27.0-33.0); Mean Platelet Volume 11.9 fL (9.4-12.4); Monocytes Absolute Auto 0.8 X10*3/uL (0.1-1.2); Monocytes Percent Auto 9.4 % (2-11); Neutrophils Absolute Auto 6.5 x10*3/uL (2.0-8.3); Neutrophils Percent Auto 76.5 % (45-73); Platelet Count 155 X10*3/uL (160-400); Red Blood Count 3.28 X10*6/uL (4.60-5.80); Red Cell Distribution Width 22.6 % (11.0-16.0); White Blood Count 8.4 X10*3/uL (4.8-10.8)
[2022-03-22 08:11] LABS: Anion Gap 14 (12-20); Blood Urea Nitrogen 32 mg/dL (9-16); Calcium 7.6 mg/dL (8.4-10.2); Carbon Dioxide 25 mmol/L (22-29); Chloride 102 mmol/L (96-108); Estimated Glomerular Filt Rate 54; Glucose Random 63 mg/dL (60-115); Sodium 137 mmol/L (135-145)
== END 2022-03-22 07:31 | disposition home or self-care (01) ==
LOC: HO.MMNH1L 07:30
PROVIDERS: Visit Provider Family Medicine
DX: E11.9 Type 2 diabetes mellitus without complications (principal); I73.9 Peripheral vascular disease, unspecified; E78.5 Hyperlipidemia, unspecified
CPT/HCPCS: 36415; 80048; 85025

== ENCOUNTER 2022-04-01 10:23 | Inpatient (IN) | payer MEDICARE, SELFPAY ==
--- NOTE | ~2022-04-01 | CT_ITS ---
EXAMINATION: CT CERVICAL SPINE WITHOUT CONTRAST CLINICAL INFORMATION: Fall with pain COMPARISON: None TECHNIQUE: Axial sections performed in soft tissue and bone windows without IV contrast enhancement. Sagittal and coronal reconstructions performed. This CT examination was performed using dose optimization techniques as appropriate, variously including the following: *Automated exposure control *Adjustment of mA and/or kV according to patient size (this includes techniques or standardized protocols for targeted exams where dose is matched to indication/reason for exam; i.e. extremities or head) *Use of iterative reconstruction technique DLP: 377 mGy-cm FINDINGS: The condyles and the odontoid appear unremarkable. There is degenerative change at the C1-C2 articulation. No acute compression fracture. Spondylitic change and degenerative disc space narrowing observed C5-T1. Facet arthrosis observed at multiple levels. Facet and uncinate hypertrophic change is observed with variable foraminal encroachments. Scarring and fibrotic changes seen toward the apices. No suspicious lymphadenopathy. Epiglottis and vocal cords unremarkable. Prominent atherosclerotic changes noted in the common carotid and carotid bulb regions. CT/CT cervical spine wo IV con IMPRESSION: 1. No evidence for bony fracture. 2. Multilevel degenerative changes. 3. Other incidental findings as noted above. Fleischner guidelines were followed.
--- NOTE | ~2022-04-01 | XR_ITS ---
EXAMINATION: XR CHEST CLINICAL INFORMATION: Status post ETT and TLC placement COMPARISON: 04/04/2022 TECHNIQUE: Frontal view of the chest was obtained. FINDINGS: Endotracheal tube with tip 4 cm above the sharri. Right internal jugular approach central venous catheter with tip in the lower superior vena cava. Enteric tube descends the esophagus with tip in the body the stomach. Right greater than left diffuse extensive airspace opacities have worsened. There may be a small right pleural effusion. No pneumothorax. XR/XR chest 1V IMPRESSION: Tubes and lines as described above. Worsening airspace opacities.
--- NOTE | ~2022-04-01 | XR_ITS ---
EXAMINATION: XR CHEST CLINICAL INFORMATION: Post Covid COMPARISON: Chest x-ray 04/07/2022 TECHNIQUE: Frontal view of the chest was obtained. FINDINGS: The lungs are hypoexpanded with diffuse airspace opacity. Position of endotracheal tube, enteric tube and right central venous catheter are stable. Heart size is borderline enlarged. No gross bony abnormality. XR/XR chest 1V IMPRESSION: Stable bilateral patchy airspace opacities and support lines and catheters from 04/07/2022
--- NOTE | ~2022-04-01 | US_ITS ---
EXAMINATION: ULTRASOUND-GUIDED PARACENTESIS. CLINICAL INFORMATION: Ascites COMPARISON: None TECHNIQUE: Following explaining ultrasound-guided paracentesis procedure, benefits and risk to patient's via telephone in presence of electrophysiology technologist, a phone consent was obtained. Preliminary portable ultrasound imaging was obtained through the abdomen in the ICU. An optimal site was selected along the right lower quadrant and marked. The marked site was cleaned and draped in usual sterile manner. 1% lidocaine was administered at puncture site. Through a small skin incision a 4 [place] [employer] catheter was advanced into the peritoneal space. After observing fluid return, the stylet was withdrawn and catheter connected to vacuum bottle via connecting cannula. After obtaining all fluid and observing normal fluid remaining, catheter was withdrawn and complete hemostasis achieved at puncture site. Simple Band-Aid applied postprocedure. Patient tolerated procedure extremely well. FINDINGS: On preliminary ultrasound imaging there is moderate fluid seen within the lower quadrants of the abdomen. 2.25 L of clear yellowish fluid was drained from the right lower quadrant. Part of this fluid was sent to lab as per referring physician's orders in the ICU. US/US paracentesis abd w/image IMPRESSION: Successful ultrasound-guided portable paracentesis performed in ICU.
--- NOTE | ~2022-04-01 | XR_ITS ---
EXAMINATION: XR CHEST CLINICAL INFORMATION: Shortness of breath COMPARISON: Chest radiograph 04/01/2022, chest CT earlier today TECHNIQUE: Frontal view of the chest was obtained. FINDINGS: Compared to the prior study, there's been worsening of diffuse airspace disease a CT scan performed earlier today demonstrated diffuse interstitial disease with cystic change and emphysema with multiple areas of groundglass opacity. Small pleural effusions are present similar to that seen on the CT earlier today. XR/XR chest 1V IMPRESSION: Worsening of diffuse airspace disease when compared to the chest radiograph on 04/01/2022.
--- NOTE | ~2022-04-01 | CT_ITS ---
EXAMINATION: CT HEAD WITHOUT CONTRAST CLINICAL INFORMATION: Fall, on blood thinners COMPARISON: None TECHNIQUE: Contiguous axial imaging was performed from the skull base to vertex without intravenous administration of contrast. This CT examination was performed using dose optimization techniques as appropriate, variously including the following: *Automated exposure control *Adjustment of mA and/or kV according to patient size (this includes techniques or standardized protocols for targeted exams where dose is matched to indication/reason for exam; i.e. extremities or head) *Use of iterative reconstruction technique DLP: 724 mGy-cm FINDINGS: No evidence for acute bleed or mass effect. Cisterns unremarkable. Patrick/white matter differentiation is maintained. No appreciable acute territorial infarct. No extra-axial collections. Atrophy noted. There are hypodense changes of periventricular and subcortical white matter consistent with chronic small vessel ischemic disease. No calvarial disruption seen. The mastoid air cells are well aerated. Visualized paranasal sinuses unremarkable. CT/CT head/brain wo IV con IMPRESSION: No evidence for acute process. Atrophy with change of chronic small vessel ischemic disease of white matter.
--- NOTE | ~2022-04-01 | CT_ITS ---
EXAMINATION: CT ABDOMEN AND PELVIS WITHOUT CONTRAST CLINICAL INFORMATION: Abdominal distention, question bowel obstruction COMPARISON: 04/01/2022 TECHNIQUE: Multidetector volumetric imaging was performed from the superior aspect of the liver through the pubic symphysis. Sagittal and coronal reformatted images were obtained on the technologist's workstation. This CT examination was performed using dose optimization techniques as appropriate, variously including the following: *Automated exposure control *Adjustment of mA and/or kV according to patient size (this includes techniques or standardized protocols for targeted exams where dose is matched to indication/reason for exam; i.e. extremities or head) *Use of iterative reconstruction technique DLP: 612 mGy-cm FINDINGS: LUNG BASES: Small pleural effusions with adjacent dependent opacities favoring atelectasis. Extensive groundglass opacity and septal thickening also noted. LIVER, GALLBLADDER, AND BILIARY TREE: The liver is normal in size, shape, and attenuation. No focal hepatic lesion or biliary ductal dilatation is identified. There is hyperdensity in the gallbladder which may reflect excretion of prior contrast. PANCREAS: Unremarkable. SPLEEN: Unremarkable. ADRENAL GLANDS: Unremarkable. KIDNEYS AND URETERS: No hydronephrosis or obstructing calculus bilaterally. Numerous cysts redemonstrated in the right kidney; no follow-up recommended. BLADDER: Nearly empty, with Pereira catheter in place. GASTROINTESTINAL TRACT: Enteric tube terminates in the stomach. Much of the small and large bowel is collapsed, which limits evaluation for wall thickening. There is scattered sigmoid colon diverticulosis. Appendix appears nondilated. Moderate amount of free fluid is present, slightly decreased from 04/01/2022. No free air is seen. ABDOMINAL WALL: Anasarca is noted. LYMPH NODES: Normal. VASCULAR: There is atherosclerotic calcification along the aorta and iliac arteries. PELVIC VISCERA: Unremarkable. OSSEOUS STRUCTURES: Multilevel degenerative changes are present in the spine. 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 CT/CT abdomen pelvis wo IV con IMPRESSION: 1. No evidence of bowel obstruction. Moderate amount of free fluid. 2. Small pleural effusions with adjacent dependent opacities favoring atelectasis. Septal thickening and groundglass opacity at the lung bases suspicious for edema. 3. Anasarca.
--- NOTE | ~2022-04-01 | CT_ITS ---
EXAMINATION: CT ABDOMEN AND PELVIS WITHOUT CONTRAST CLINICAL INFORMATION: Abdominal pain COMPARISON: Ultrasound retroperitoneum 07/29/2020 TECHNIQUE: Multidetector volumetric imaging was performed from the superior aspect of the liver through the pubic symphysis. Sagittal and coronal reformatted images were obtained on the technologist's workstation. This CT examination was performed using dose optimization techniques as appropriate, variously including the following: *Automated exposure control *Adjustment of mA and/or kV according to patient size (this includes techniques or standardized protocols for targeted exams where dose is matched to indication/reason for exam; i.e. extremities or head) *Use of iterative reconstruction technique DLP: 584 point mGy-cm FINDINGS: LUNG BASES: Coarse interstitial lung markings at lung bases. Small bilateral pleural effusions layering dependently. LIVER, GALLBLADDER, AND BILIARY TREE: The liver is normal in size, shape, and attenuation. No focal hepatic lesion or biliary ductal dilatation is present. The gallbladder is unremarkable with no evidence of radiopaque gallstones, gallbladder wall thickening, or obvious pericholecystic inflammatory changes. PANCREAS: Unremarkable. SPLEEN: Unremarkable. ADRENAL GLANDS: Unremarkable. KIDNEYS AND URETERS: Redemonstration of the multiple cysts in the upper pole of the right kidney similar prior ultrasound exam. Small cysts in the left midpole. No renal or ureteral calculi. No hydronephrosis. BLADDER: Unremarkable. GASTROINTESTINAL TRACT: There are scattered diverticula of the colon. There is no diverticulitis. There is no bowel wall thickening /edema. There is no bowel obstruction. There is a moderate volume of stool in the colon. The appendix is nonvisualized . The small bowel loops are unremarkable. The stomach is normal. There is no hiatal hernia. MESENTERY: Large volume of abdominal ascites. ABDOMINAL WALL: No significant hernia is appreciated. LYMPH NODES: Normal. VASCULAR: Atherosclerotic vascular calcifications of the abdomen and pelvis. No aneurysm. PELVIC VISCERA: Unremarkable. OSSEOUS STRUCTURES: Advanced multilevel degenerative spondylosis of the spine. Severe central canal stenosis at L3-L4. No acute osseous abnormality. CT/CT abdomen pelvis wo IV con IMPRESSION: 1. Large volume of abdominal ascites. 2. Diverticulosis of colon. No acute abnormality of the bowel. 3. Small bilateral pleural effusions. Fleischner guidelines were followed.
--- NOTE | ~2022-04-01 | CT_ITS ---
EXAMINATION: CT CHEST WITHOUT CONTRAST CLINICAL INFORMATION: Shortness of breath. COMPARISON: Most recent chest radiograph dated 04/01/2022 and CTA chest dated 07/24/2020. CT abdomen/pelvis dated 04/01/2022. TECHNIQUE: Multidetector volumetric CT imaging of the chest was done. Axial MIP volume rendering provided. Sagittal and coronal reformatted images were obtained. This CT examination was performed using dose optimization techniques as appropriate, variously including the following: *Automated exposure control *Adjustment of mA and/or kV according to patient size (this includes techniques or standardized protocols for targeted exams where dose is matched to indication/reason for exam; i.e. extremities or head) *Use of iterative reconstruction technique DLP: 231 mGy-cm FINDINGS: [employer]AT [employer]PER: Diffuse bilateral opacities. LUNGS: Diffuse interstitial prominence with associated cystic change/emphysema. Areas of ground-glass airspace opacity. Findings are new/significantly increased when compared to the CT chest dated 07/24/2020. The central airways are patent. No large pulmonary mass. MEDIASTINUM: Mild cardiomegaly. No pericardial effusion. No thoracic aortic dilatation. Atherosclerotic calcifications. There are coronary artery calcifications. No superior mediastinal or hilar lymphadenopathy. Atrophic thyroid. CORONARY ARTERY CALCIFICATION: Present. PLEURA: Small bilateral pleural effusions, right greater than left. AXILLA: No lymphadenopathy. UPPER ABDOMEN: Partially visualized moderate simple ascites within the upper abdomen. Findings are similar when compared to the recent CT abdomen/pelvis. OSSEOUS STRUCTURES: Unremarkable. CT/CT chest wo IV con IMPRESSION: 1. Diffuse interstitial prominence with associated cystic change/emphysema. Areas of ground-glass airspace opacity. Findings are new/significantly increased when compared to the CT chest dated 07/24/2020. Findings are concerning for a chronic interstitial inflammatory process. Superimposed pulmonary edema could be considered in the appropriate clinical setting. 2. Small bilateral pleural effusions, right greater than left. 3. No significant lymphadenopathy. 4. Partially visualized moderate simple ascites within the upper abdomen. Findings are similar when compared to the recent CT abdomen/pelvis. Fleischner guidelines were followed.
--- NOTE | ~2022-04-01 | XR_ITS ---
EXAMINATION: XR CHEST CLINICAL INFORMATION: Confirmable, catheter COMPARISON: Chest x-ray 04/05/2022 TECHNIQUE: Frontal view of the chest was obtained. FINDINGS: Lungs are hypoexpanded with bilateral patchy airspace opacities. There is a right jugular central venous catheter with its tip in the mid SVC. Endotracheal tube tip is 4.1 cm above the sharri. Enteric tube is below diaphragm. There is new left central venous dialysis catheter with its tip left of midline. XR/XR chest 1V IMPRESSION: 1. New left central venous dialysis catheter with its tip left of midline. 2. Bilateral patchy airspace opacities are stable. 3. No change in support lines and catheters.
--- NOTE | ~2022-04-01 | XR_ITS ---
EXAMINATION: XR CHEST CLINICAL INFORMATION: Shortness of breath COMPARISON: March 03 and 02/21/2022. TECHNIQUE: 2 views of the chest were obtained. Examination at low lung volumes with some compression of parenchymal markings. Patient slightly rotated to the right. FINDINGS: Small patchy opacities peripheral left upper lobe are now observed. Opacities previously seen toward the left base have improved. There are patchy right upper lobe, right midlung, and right basilar opacities with some obscuration of the right diaphragm slightly more pronounced since the previous examination. The pulmonary vascularity appears to be stable. XR/XR chest 2V IMPRESSION: Opacities in the right lung suggestive of infiltrates slightly more pronounced since the previous evaluation. There is now partial obscuration of the right diaphragm. New small patchy opacities peripheral left upper lobe now observed with previously noted changes in the mid to left base region improved.
[2022-04-01 10:35] VITALS: BP 141/72; PULSE 83; RESP 18; TEMP 36.8; BMI 25.1
--- NOTE | 2022-04-01 10:35 | ECG_ITS ---
Test Reason : weakness Blood Pressure : / mmHG Vent. Rate : 082 BPM Atrial Rate : 082 BPM P-R Int : 198 ms QRS Dur : 094 ms QT Int : 420 ms P-R-T Axes : 039 -01 136 degrees QTc Int : 490 ms Sinus rhythm with occasional Premature ventricular complexes Nonspecific T wave abnormality Prolonged QT Abnormal ECG When compared with ECG of 21-FEB-2022 18:24, Premature ventricular complexes are now Present T wave inversion now evident in Lateral leads Referred By: Jenny Brothers Electronically Signed By:ASA BATEMAN
--- OUTSIDE RECORDS SUMMARY | 2022-04-01 10:44 | XMS_ITS ---
:1945 External Reference #:[id number] Author Care Team Providers Name Role Phone SANTA BRANDT MD Referring Provider [phone] MEAGAN LAWSON MD Primary Care Provider [phone] [facility] OTHER [phone] Allergies Code Code System Name Reaction Severity Status Onset NKDA ? Medications Name Status Start Date Stop Date ? ? amlodipine 2.5 mg tablet Unknown ? Not gurjit ilable amoxicillin 500 mg capsule Unknown ? Not a vailable Aspir-81 mg tablet,delayed release Active ? Not available Take 1 tablet every day by oral route. carvedilol 12.5 mg tablet Active ? Not av ailable Celebrex 200 mg capsule Unknown ? Not avai lable cephalexin 500 mg capsule Unknown ? Not av ailable clobetasol 0.05 % topical cream Active ? Not available cyclobenzaprine 5 mg tablet Unknown ? Not available [employer] Blood Glucose System strips Active ? Not available Mobile [employer] Glucose Control Low solution Active ? Not available Fish Oil Active ? Not available as needed gabapentin 300 mg capsule Active ? Not av ailable hydrochlorothiazide 25 mg tablet Active ? Not available hydrocodone 5 mg-acetaminophen 500 mg tablet Unknown ? Not available latanoprost 0.005 % eye drops Active ? No t available lisinopril 40 mg tablet Active ? Not avai lable Lyrica 75 mg capsule Active ? Not availab le 2 capsules bid metformin 500 mg tablet Active ? Not avai lable nabumetone 750 mg tablet Unknown ? Not gurjit ilable naproxen 500 mg tablet Unknown ? Not avail able neomycin 3.5 mg/g-polymyxin B 10,000 unit/g-dexameth 0.1 % Unkno wn ? Not available eye oint OneTouch UltraSoft Lancets Active ? Not a vailable oxycodone-acetaminophen 5 mg-325 mg tablet Unknown ? Not available pravastatin 80 mg tablet Unknown ? Not gurjit ilable silver sulfadiazine 1 % topical cream Unknown ? Not available simvastatin 80 mg tablet Active ? Not gurjit ilable daily Sure Comfort Lancets 30 gauge Active ? No t available timolol maleate 0.5 % eye drops Active ? Not available tramadol 50 mg tablet Unknown ? Not availa ble Vitamin D3 25 mcg (1,000 unit) capsule Active ? Not available daily Problems Name Status Onset Date Source ? Mononeuritis of Lower Limb Active ? 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 History Procedures Date Name Performed by ? 09/17/2011 Other Information not avai lable Notes: Right hip surgery ? Cataract Surgery Information not avai lable Notes: Both eyes Results Lab Results None recorded. Past Encounters None recorded. Social History Tobacco Smoking Status Heavy Tobacco Smoker (1 pack per day) Vaccine List None recorded. Plan of Care Reminders Provider Appointments None recorded. ? ? Lab None recorded. ? ? Referral None recorded. ? ? Procedures None recorded. ? ? Surgeries None recorded. ? ? Imaging None recorded. ? ? Vitals 07/19/2012 02:00PM RETURN Blood Pressure 118/70 mm[Hg] 06/28/2012 02:00PM RETURN Blood Pressure 114/74 mm[Hg] 06/15/2012 03:00PM RETURN Blood Pressure 126/83 mm[Hg] 05/24/2012 02:00PM RETURN Blood Pressure 192/100 mm[Hg] 08/30/2011 02:30PM PROCEDURE Blood Pressure 178/92 mm[Hg] 08/24/2011 03:00PM NEW PATIENT VISIT Height Weight BMI Blood Pressure 5 ft 8.5 in 143 lbs 21.4 kg/m2 172/85 mm[Hg]
--- OUTSIDE RECORDS SUMMARY | 2022-04-01 10:44 | XMS_ITS ---
:1945 Author Organization [facility] Address [address] [place] [address] Care Team Providers Name Role Phone Polo Fung Unavailable Unavailable PROBLEMS Unknown Problems ALLERGIES No Information ENCOUNTERS Encounter Location Date Diagnosis [facility] [address] Ja n, 2014 [place] [address] [facility] [address], [address] [place] [address] [facility] Outpatient [address] [place], [place] Nov, [id number] [facility] ER [address] [place], [place] Sep, [id number] IMMUNIZATIONS No Known Immunizations SOCIAL HISTORY Never Assessed REASON FOR REFERRAL FUNCTIONAL STATUS PLAN OF CARE VITAL SIGNS MEDICATIONS Unknown Medications PROCEDURES No Known procedures RESULTS No Results REASON FOR VISIT screening colonoscopy, cancel, screening colonoscopy, No show, screening colonoscopy Insurance Providers [facility] Member Patient Patient Patient Patient Patient Subscriber Subscriber Subscriber Group Insurance Plan Plan Plan Plan ID Relationship Address Phone Name Date of ID Name Date of No Type Insurance Insurance Insurance Coverage to Subscriber Address Phone Name Dates [facility] [phone] [facility] [place] [id number] [facility] [address] [facility] [address] [facility] [id number]
[2022-04-01 12:08] LABS: MANUAL DIFF FLAG NO
[2022-04-01 12:11] LABS: Basophils Absolute Auto 0.1 X10*3/uL (0.0-0.2); Basophils Percent Auto 0.4 % (0-2); Eosinophils Percent Auto 0.1 % (0-4); Hematocrit 38.2 % (42.0-52.0); Hemoglobin 12.4 g/dl (14.0-18.0); Imm Gran Abs Auto 0.11 X10*3/uL (0.00-0.03); Imm Gran Pct Auto 0.8 % (0.0-0.4); Lymphocytes Absolute Auto 0.7 X10*3/uL (1.2-4.9); Lymphocytes Percent Auto 5.2 % (20-40); Mean Corpuscular HGB Conc 32.5 g/dl (31.0-36.0); Mean Corpuscular Hemoglobin 29.8 pg (27.0-33.0); Mean Corpuscular Volume 91.8 fL (80.0-98.0); Mean Platelet Volume 11.7 fL (9.4-12.4); Monocytes Percent Auto 7.1 % (2-11); Neutrophils Percent Auto 86.4 % (45-73); Platelet Count 356 X10*3/uL (160-400); Red Blood Count 4.16 X10*6/uL (4.60-5.80); Red Cell Distribution Width 22.5 % (11.0-16.0); White Blood Count 13.8 X10*3/uL (4.8-10.8)
[2022-04-01 12:18] LABS: INTERNATIONAL NORM RATIO 2.3 (0.9-1.1); Prothrombin Time 27.8 SEC (10.0-13.1)
--- NOTE | 2022-04-01 12:28 | ED_ITS ---
HPI - General Adult General Chief complaint: General Medical Stated complaint: WEAK,DIFF AMB PER EMS Source: patient and EMS Mode of arrival: EMS History of Present Illness HPI narrative: 76-year-old male presents via EMS after he apparently fell out of the couch without head strike or loss of consciousness, patient states he does not know how it happened but he became unsteady when he rolled over. He denies any fever, chills, chest pain but states he has been feeling weak for couple of days now and reports diarrhea. Related Data Home Medications Medication Instructions Recorded Confirmed cholecalciferol (vitamin D3) 25 25 mcg PO DAILY 04/14/20 02/21/22 mcg (1,000 unit) capsule timolol maleate 0.5 % eye drops 1 drp ophthalmic-Left DAILY 08/21/20 02/21/22 levothyroxine 25 mcg tablet 25 mcg PO DAILY@0600 02/21/22 02/21/22 (Synthroid) Previous Rx's Medication Instructions Recorded amiodarone 200 mg tablet 200 mg PO DAILY #30 tabs 05/28/21 apixaban 5 mg tablet (Eliquis) 5 mg PO BID #60 tabs 05/28/21 mirtazapine 7.5 mg tablet 7.5 mg PO BEDTIME #90 tabs 08/03/21 clopidogrel 75 mg tablet (Plavix) 75 mg PO DAILY #90 tabs 10/26/21 amlodipine 10 mg tablet 10 mg PO DAILY 90 days #90 tabs 01/03/22 metformin 500 mg tablet 500 mg PO BIDWM #180 tabs 01/04/22 atorvastatin 10 mg tablet 10 mg PO BEDTIME #90 tabs 01/10/22 clotrimazole 1 % topical cream 1 appl topical BID 4 weeks #45 01/25/22 grams azithromycin 500 mg tablet 500 mg PO Q24H #3 tabs 03/05/22 furosemide 20 mg tablet 20 mg PO DAILY #30 tabs 03/05/22 prednisone 10 mg tablet See Taper PO DAILY #30 tabs 03/05/22 metoprolol succinate 50 mg 50 mg PO DAILY #30 tabs 03/29/22 tablet,extended release 24 hr Allergies Allergy/AdvReac Type Severity Reaction Status Date / Time No Known Allergies Allergy Mild Verified 12/30/21 09:11 Review of Systems Review of Systems: Pertinent positives and negatives as stated in HPI 10 point review of systems otherwise negative. [facility] Past Medical History Source: nursing notes reviewed Medical History Abscess of right foot Anxiety and depression Asthma Atrial fibrillation Atrial fibrillation with rapid ventricular response Avascular necrosis of bone of hip Cellulitis Coronary artery disease Diabetic foot ulcer Diabetic nephropathy Diabetic neuropathy Diverticular disease DMII (diabetes mellitus, type 2) Hypercholesterolemia Hypertension Open wound Osteomyelitis of foot Osteomyelitis of foot Osteomyelitis of toe PAD (peripheral artery disease) Preoperative cardiovascular examination Thrombocytopenia Tobacco abuse Tubular adenoma of colon Type 2 diabetes mellitus with diabetic foot infection Type 2 diabetes mellitus with hyperglycemia Type 2 diabetes mellitus with peripheral artery disease Vitamin D deficiency Surgical History Amputated toe of right foot Amputation finger History of cataract surgery History of surgery Family History Family History Father Diabetes Hypertension CVD (cardiovascular disease) Stroke Mother CVD (cardiovascular disease) Hypertension Cancer Sister No problems noted. Son Stroke Social History Social History Household Members: Spouse Household Members Other:: 4 Housing: House Do you presently have visiting nurse or other home services: No Alcohol intake: former Patient Tobacco Use Status: Former Tobacco user Quit Date: 4 months ago Tobacco use type: Cigarette Cigarettes Per Day: 7 Years Smoked: 09/2020 stopped e-Cigarette/Vaping Use: Never Used Second Hand Smoke Exposure: No Advance Directives: Yes Advance Directives on File: Yes Advance Directives Date on File: 07/24/20 service: No Current occupational status: retired Cognitive needs: No Hearing needs: No Vision needs: Yes Physical Exam ED Vital Signs: Vital Signs - 24 hr 04/01/22 10:35 04/01/22 12:40 04/01/22 13:49 Temperature 98.3 F Pulse Rate 83 79 74 Respiratory Rate 18 14 16 Blood Pressure 141/72 H 138/69 130/67 Oxygen Delivery Method Room Air Room Air Room Air 04/01/22 13:20 Temperature Pulse Rate 72 Respiratory Rate 16 Blood Pressure 140/64 H Oxygen Delivery Method Room Air BMI result Body Mass Index 25.1 VITAL SIGNS: Reviewed. GENERAL: Chronically ill, cachectic, in no acute distress. HEAD: Normocephalic/atraumatic EYES: PERRLA, EOMI EARS: Ext canals without abnormality OROPHARYNX: no oral lesions noted, posterior pharynx clear NECK: Supple, no adenopathy, no midline cervical spine tenderness LUNGS: Decreased breath sounds with scattered rhonchi, no wheeze. CARDIOVASCULAR: Regular rate and rhythm without noted murmurs, no JVD or lower extremity edema. ABDOMEN: Soft, non-tender, non-distended with bowel sounds. MUSCULOSKELETAL: No tenderness, deformities, or effusions noted on gross inspection. EXTREMITIES: No cyanosis, clubbing or edema. SKIN: Inspection of the skin reveals no rashes NEUROLOGIC: Alert and oriented x 3. Strength and sensation to light touch were grossly intact x 4, cranial nerves 2-12 are grossly intact. Course Course Course Narrative: 1145: I suspect infection with elevated leukocytosis and chest x-ray findings with new opacities. Antibiotics and bolus fluids were ordered. On review of all investigations patient has an CHANTE I which is likely a contribution poor hydration in combination with infection. CT scans were negative for any acute pathology in the C-spine or within the brain. I did discuss the case with the inpatient hospitalist who accepts admission. Reevaluation(s) Reevaluation #1: Lactic acid 4.2, fluid bolus ordered Time: 12:28 Reevaluation #2: Second lactic acid with a delay secondary to lack of communication with the lab in reordering lactic acid after they canceled the specimen. We are re-drawing the lactic acid at this time. Time: 15:08 Medications Administered Discontinued Medications Generic Name Dose Route Start Last Admin Trade Name Freq PRN Reason Stop Dose Admin Piperacillin Sod/Tazobactam 50 mls @ 100 mls/hr 04/01/22 12:30 04/01/22 13:58 Sod 3.375 gm/ Sodium Chloride IV 04/01/22 12:59 Infused ONCE ONE Infusion Sodium Chloride 2,313.33 mls @ 2,313.33 mls/hr 04/01/22 12:30 04/01/22 13:37 Ns 30 ml/kg infuse over 1 hr (2313.33 ml) 04/01/22 13:29 Infused IV Infusion .Q1H STA Procedures EJ/Peripheral Line Arm R: Time Out Performed: No Skin Cleansed in Sterile Fashion: Yes Size (gauge): 18 IV Secured and Dressing Applied: Yes Patient Tolerated Procedure: well Additional Comments: Ultrasound guided placement Medical Decision Making Lab Data Result Diagrams: 04/01/22 12:03 04/01/22 12:41 Labs: Lab Results 04/01/22 04/01/22 04/01/22 Range/Units 11:49 11:49 12:02 WBC (4.8-10.8) X10*3/uL RBC (4.60-5.80) X10*6/uL Hgb (14.0-18.0) g/dl Hct (42.0-52.0) % MCV (80.0-98.0) fL MCH (27.0-33.0) pg MCHC (31.0-36.0) g/dl RDW (11.0-16.0) % Plt Count (160-400) X10*3/uL MPV (9.4-12.4) fL Immature Gran % (Auto) (0.0-0.4) % Neut % (Auto) (45-73) % Lymph % (Auto) (20-40) % Grainger % (Auto) (2-11) % Eos % (Auto) (0-4) % Baso % (Auto) (0-2) % Lymph # (Auto) (1.2-4.9) X10*3/uL Grainger # (Auto) (0.1-1.2) X10*3/uL Eos # (Auto) (0.0-0.4) X10*3/uL Baso # (Auto) (0.0-0.2) X10*3/uL Abs Immat Gran (auto) (0.00-0.03) X10*3/uL Absolute Neuts (auto) (2.0-8.3) x10*3/uL Absolute Nucleated RBC (0.0-0.012) X10*3/uL Nucleated RBC % (auto) (0.0-0.2) /100WBC PT 27.8 H (10.0-13.1) SEC INR 2.3 H (0.9-1.1) Sodium (135-145) mmol/L Potassium (3.3-5.1) mmol/L Chloride (96-108) mmol/L Carbon Dioxide (22-29) mmol/L Anion Gap (12-20) BUN (9-16) mg/dL Creatinine (0.5-1.4) mg/dL Estim Creat Clear Calc Estimated GFR Random Glucose (60-115) mg/dL Lactic Acid 4.2 H* (0.5-2.0) mmol/L Calcium (8.4-10.2) mg/dL Magnesium (1.6-2.6) mg/dL Total Bilirubin (0.0-1.0) mg/dL AST (5-37) U/L ALT (0-40) U/L Alkaline Phosphatase (39-117) U/L Troponin I High Sens (<3.5-35.0) ng/L Total Protein (6.5-8.0) g/dL Albumin (3.5-5.0) g/dL Influenza Type A (PCR) NEGATIVE (Negative) Influenza Type B (PCR) NEGATIVE (Negative) RSV RNA Qual (PCR) NEGATIVE (Negative) SARS-CoV-2 RNA (RT-PCR) NEGATIVE (Negative) 04/01/22 04/01/22 04/01/22 Range/Units 12:02 12:03 12:41 WBC 13.8 H (4.8-10.8) X10*3/uL RBC 4.16 L D (4.60-5.80) X10*6/uL Hgb 12.4 L D (14.0-18.0) g/dl Hct 38.2 L D (42.0-52.0) % MCV 91.8 (80.0-98.0) fL MCH 29.8 (27.0-33.0) pg MCHC 32.5 (31.0-36.0) g/dl RDW 22.5 H (11.0-16.0) % Plt Count 356 D (160-400) X10*3/uL MPV 11.7 (9.4-12.4) fL Immature Gran % (Auto) 0.8 H (0.0-0.4) % Neut % (Auto) 86.4 H (45-73) % Lymph % (Auto) 5.2 L (20-40) % Grainger % (Auto) 7.1 (2-11) % Eos % (Auto) 0.1 (0-4) % Baso % (Auto) 0.4 (0-2) % Lymph # (Auto) 0.7 L (1.2-4.9) X10*3/uL Grainger # (Auto) 1.0 (0.1-1.2) X10*3/uL Eos # (Auto) 0.0 (0.0-0.4) X10*3/uL Baso # (Auto) 0.1 (0.0-0.2) X10*3/uL Abs Immat Gran (auto) 0.11 H (0.00-0.03) X10*3/uL Absolute Neuts (auto) 12.0 H (2.0-8.3) x10*3/uL Absolute Nucleated RBC 0.000 (0.0-0.012) X10*3/uL Nucleated RBC % (auto) 0.0 (0.0-0.2) /100WBC PT (10.0-13.1) SEC INR (0.9-1.1) Sodium 137 (135-145) mmol/L Potassium 4.9 D (3.3-5.1) mmol/L Chloride 107 (96-108) mmol/L Carbon Dioxide 19 L (22-29) mmol/L Anion Gap 16 (12-20) BUN 40 H (9-16) mg/dL Creatinine 1.96 H (0.5-1.4) mg/dL Estim Creat Clear Calc 31.0 Estimated GFR 33 Random Glucose 118 H (60-115) mg/dL Lactic Acid (0.5-2.0) mmol/L Calcium 8.1 L D (8.4-10.2) mg/dL Magnesium 2.1 (1.6-2.6) mg/dL Total Bilirubin 1.0 (0.0-1.0) mg/dL AST 78 H (5-37) U/L ALT 42 H (0-40) U/L Alkaline Phosphatase 221 H (39-117) U/L Troponin I High Sens 16.4 D (<3.5-35.0) ng/L Total Protein 5.4 L (6.5-8.0) g/dL Albumin 2.5 L (3.5-5.0) g/dL Influenza Type A (PCR) (Negative) Influenza Type B (PCR) (Negative) RSV RNA Qual (PCR) (Negative) SARS-CoV-2 RNA (RT-PCR) (Negative) 04/01/22 Range/Units 14:10 WBC (4.8-10.8) X10*3/uL RBC (4.60-5.80) X10*6/uL Hgb (14.0-18.0) g/dl Hct (42.0-52.0) % MCV (80.0-98.0) fL MCH (27.0-33.0) pg MCHC (31.0-36.0) g/dl RDW (11.0-16.0) % Plt Count (160-400) X10*3/uL MPV (9.4-12.4) fL Immature Gran % (Auto) (0.0-0.4) % Neut % (Auto) (45-73) % Lymph % (Auto) (20-40) % Grainger % (Auto) (2-11) % Eos % (Auto) (0-4) % Baso % (Auto) (0-2) % Lymph # (Auto) (1.2-4.9) X10*3/uL Grainger # (Auto) (0.1-1.2) X10*3/uL Eos # (Auto) (0.0-0.4) X10*3/uL Baso # (Auto) (0.0-0.2) X10*3/uL Abs Immat Gran (auto) (0.00-0.03) X10*3/uL Absolute Neuts (auto) (2.0-8.3) x10*3/uL Absolute Nucleated RBC (0.0-0.012) X10*3/uL Nucleated RBC % (auto) (0.0-0.2) /100WBC PT (10.0-13.1) SEC INR (0.9-1.1) Sodium (135-145) mmol/L Potassium (3.3-5.1) mmol/L Chloride (96-108) mmol/L Carbon Dioxide (22-29) mmol/L Anion Gap (12-20) BUN (9-16) mg/dL Creatinine (0.5-1.4) mg/dL Estim Creat Clear Calc Estimated GFR Random Glucose (60-115) mg/dL Lactic Acid (0.5-2.0) mmol/L Calcium (8.4-10.2) mg/dL Magnesium (1.6-2.6) mg/dL Total Bilirubin (0.0-1.0) mg/dL AST (5-37) U/L ALT (0-40) U/L Alkaline Phosphatase (39-117) U/L Troponin I High Sens 11.5 (<3.5-35.0) ng/L Total Protein (6.5-8.0) g/dL Albumin (3.5-5.0) g/dL Influenza Type A (PCR) (Negative) Influenza Type B (PCR) (Negative) RSV RNA Qual (PCR) (Negative) SARS-CoV-2 RNA (RT-PCR) (Negative) Independent Interpretation I performed an independent interpretation of an: EKG Interpretation: Sinus rhythm with occasional PVCs, HR-82, no STEMI, NH/QRS are within normal limits with QTC-490 Critical Care Time Critical Care Time Critical Care Time: Yes Total Critical Care Time: 45 Attestation: I personally attest to this time spent taking care of the patient. Discharge Plan Discharge Clinical Impression: Pneumonia, Sepsis, Dehydration, CHANTE (acute kidney injury) Patient Disposition: Admitted As Inpatient
[2022-04-01 12:29] LABS: Lactic Acid 4.2 mmol/L (0.5-2.0)
[2022-04-01 12:31] LABS: Influenza A PCR NEGATIVE (Negative); Influenza B PCR NEGATIVE (Negative); Resp Syncy Virus RNA Qual PCR NEGATIVE (Negative); SARS COV2 PCR INHOUSE NEGATIVE (Negative)
[2022-04-01 12:35] LABS: Troponin-I High Sensitivity 16.4 ng/L (<3.5-35.0)
[2022-04-01] MEDS: Piperacillin Sodium/Tazobactam 3.375 GM in 0.9 % Sodium Chloride 50 ML IV (12:37)
[2022-04-01] MEDS: 0.9 % Sodium Chloride 2,313.33 ML 2313.33 ML IV (12:37)
[2022-04-01 12:40] VITALS: BP 138/69; PULSE 79; RESP 14
[2022-04-01 13:14] LABS: Alanine Aminotransferase 42 U/L (0-40); Albumin Level 2.5 g/dL (3.5-5.0); Alkaline Phosphatase 221 U/L (39-117); Anion Gap 16 (12-20); Aspartate Amino Transferase 78 U/L (5-37); Blood Urea Nitrogen 40 mg/dL (9-16); Calcium 8.1 mg/dL (8.4-10.2); Carbon Dioxide 19 mmol/L (22-29); Chloride 107 mmol/L (96-108); Estimated Glomerular Filt Rate 33; Glucose Random 118 mg/dL (60-115); Magnesium 2.1 mg/dL (1.6-2.6); Potassium 4.9 mmol/L (3.3-5.1); Sodium 137 mmol/L (135-145); Total Protein 5.4 g/dL (6.5-8.0)
[2022-04-01 13:20] VITALS: BP 140/64; PULSE 72; RESP 16
[2022-04-01 13:49] VITALS: BP 130/67; PULSE 74; RESP 16
[2022-04-01 13:51] LABS: Reflex Lactate? Lactic Acid Added
--- NOTE | 2022-04-01 13:59 | PC.NURSE ---
first 1L of NS given, second liter infusing at this time
--- NOTE | 2022-04-01 14:12 | PC.NURSE ---
repeat lactate drawn and sent, trop sent
[2022-04-01 14:49] LABS: Troponin-I High Sensitivity 11.5 ng/L (<3.5-35.0)
--- NOTE | 2022-04-01 15:06 | PM.IMHP ---
History of Present Illness Date of Service: 04/01/22 <BRIA Carreon - Last Filed: 04/01/22 23:57> Attending physician on admission: Scott Silva <BRIA Carreon - Last Filed: 04/01/22 23:57> Chief Complaint: Generalized weakness and fall <BRIA Carreon - Last Filed: 04/01/22 23:57> Pt is a 76-year-old male with a PMH significant for diabetes with diabetic foot ulcers and infections in the past, left toe amputations, HTN, history of Afib on Eliquis, HLD, and history of peripheral vascular disease who presents to the ED from home via ambulance due to generalized weakness and a witnessed fall. Patient is oriented x3 however is unable to provide an adequate HPI, which comes mostly from his . His states the patient has been sleeping on the couch lately, and this morning asked to be taken to the bathroom. During the transfer the patient fell from the wheelchair to the floor and the was unable to move him. Denies head strike or loss of consciousness. Patient has not been eating much lately, has been sleeping alot, been weaker than normal. The patient was recently hospitalized for COVID at the beginning of February and the states that he has not yet returned to baseline since coming home from rehab. The is also worried about the possibility for early stage dementia. In the ED labs were significant for leukocytosis of 13.8, creatinine of 1.96, above baseline of 1.22, lactic acid of 4.2. Troponins flat and WNL at 16.4 and 11.5. EKG sinus rythym and nonspecific T-wave abnormalities. CT of cervical spine showed no evidence for bony fracture, CT of head revealed no evidence for acute process, but showed atrophy with changes of chronic small vessel ischemic disease of white matter. CXR had opacities in right lung suggestive of infiltrates with partial obscuration of the right diaphragm, and new small patchy opacities in the peripheral left upper lobe. Pt will be admitted for dehydration, CHANTE, and possible pneumonia. <BRIA Carreon - Last Filed: 04/01/22 23:57> Review of Systems Review of Systems: Patient is alert oriented x3 but HPI and ROS difficult to obtain due to pt's lack of clarity concerning his condition and PMH. <BRIA Carreon - Last Filed: 04/01/22 23:57> [facility] Medical History: Medical History Abscess of right foot Anxiety and depression Asthma Atrial fibrillation Atrial fibrillation with rapid ventricular response Avascular necrosis of bone of hip Cellulitis Coronary artery disease Diabetic foot ulcer Diabetic nephropathy Diabetic neuropathy Diverticular disease DMII (diabetes mellitus, type 2) Hypercholesterolemia Hypertension Open wound Osteomyelitis of foot Osteomyelitis of foot Osteomyelitis of toe PAD (peripheral artery disease) Preoperative cardiovascular examination Thrombocytopenia Tobacco abuse Tubular adenoma of colon Type 2 diabetes mellitus with diabetic foot infection Type 2 diabetes mellitus with hyperglycemia Type 2 diabetes mellitus with peripheral artery disease Vitamin D deficiency <BRIA Carreon - Last Filed: 04/01/22 23:57> Family History: Family History Father Diabetes Hypertension CVD (cardiovascular disease) Stroke Mother CVD (cardiovascular disease) Hypertension Cancer Sister No problems noted. Son Stroke <BRIA Carreon - Last Filed: 04/01/22 23:57> Surgical History: Surgical History Amputated toe of right foot Amputation finger History of cataract surgery History of surgery <BRIA Carreon - Last Filed: 04/01/22 23:57> Social History: Social History Household Members: Spouse and Children Household Members Other:: 4 Housing: House Do you presently have visiting nurse or other home services: Yes Alcohol intake: former Patient Tobacco Use Status: Former Tobacco user Quit Date: 4 months ago Tobacco use type: Cigarette Cigarettes Per Day: 7 Years Smoked: 09/2020 stopped e-Cigarette/Vaping Use: Never Used Second Hand Smoke Exposure: No Advance Directives Date on File: 07/24/20 service: No Current occupational status: retired Cognitive needs: No Hearing needs: No Vision needs: Yes <BRIA Carreon - Last Filed: 04/01/22 23:57> Meds Allergies/Adverse reactions: Allergies Allergy/AdvReac Type Severity Reaction Status Date / Time No Known Allergies Allergy Mild Verified 12/30/21 09:11 <BRIA Carreon - Last Filed: 04/01/22 23:57> Home medications: Home Medications Medication Instructions Recorded Confirmed Last Taken Type cholecalciferol (vitamin D3) 25 25 mcg PO DAILY 04/14/20 04/01/22 02/21/22 History mcg (1,000 unit) capsule timolol maleate 0.5 % eye drops 1 drp ophthalmic-Left DAILY 08/21/20 04/01/22 02/21/22 History levothyroxine 25 mcg tablet 25 mcg PO DAILY@0600 02/21/22 04/01/22 02/20/22 History (Synthroid) <BRIA Carreon - Last Filed: 04/01/22 23:57> Physical Exam Vital Signs and Narrative: Vital Signs: Last Vital Signs Temp 98.3 F 04/01/22 10:35 Pulse 74 04/01/22 13:49 Resp 16 04/01/22 13:49 BP 130/67 04/01/22 13:49 O2 Del Method 04/01/22 13:49 BMI result Body Mass Index 25.1 <BRIA Carreon - Last Filed: 04/01/22 23:57> Constitutional: Alert, in no acute distress. Mental Status: Oriented to person, place and time. Eyes: Pupils are equal, round, and reactive to light. Ear, Nose, and Throat: Oropharynx clear, mucous membranes moist. Ears and nose without deformities. Trachea midline. Respiratory: Clear to auscultation bilaterally. No wheezing, rales, or rhonchi. Cardiovascular: S1, S2 regular. No murmurs, rubs, or gallops. Gastrointestinal: Diffuse abdominal pain, worse on left lower quadrant. Abdomen mildly distended. Normal bowel sounds. Neurologic: Cranial nerves II-XI are grossly intact. No focal neurological deficits. Moves all extremities spontaneously. Skin: No rashes of lesions. Musculoskeletal: No cyanosis or clubbing. Extremities: No edema. Psychiatric: Normal mood and affect. <BRIA Carreon - Last Filed: 04/01/22 23:57> Results Labs CBC and Chem 7: : 04/02/22 06:19 04/02/22 06:19 <BRIA Carreon - Last Filed: 04/01/22 23:57> Labs: Laboratory Results - last 24 hr 04/01/22 04/01/22 04/01/22 11:49 11:49 12:02 MCV MCH MCHC RDW Plt Count MPV Immature Gran % (Auto) Neut % (Auto) Lymph % (Auto) [place] % (Auto) Eos % (Auto) Baso % (Auto) Lymph # (Auto) [place] # (Auto) Eos # (Auto) Baso # (Auto) Abs Immat Gran (auto) Absolute Neuts (auto) Absolute Nucleated RBC Nucleated RBC % (auto) PT 27.8 H INR 2.3 H Anion Gap Estim Creat Clear Calc Estimated GFR Random Glucose Lactic Acid 4.2 H* Calcium Magnesium Total Bilirubin AST ALT Alkaline Phosphatase Troponin I High Sens Total Protein Albumin Influenza Type A (PCR) NEGATIVE Influenza Type B (PCR) NEGATIVE RSV RNA Qual (PCR) NEGATIVE SARS-CoV-2 RNA (RT-PCR) NEGATIVE 04/01/22 04/01/22 04/01/22 12:02 12:03 12:41 MCV 91.8 MCH 29.8 MCHC 32.5 RDW 22.5 H Plt Count 356 D MPV 11.7 Immature Gran % (Auto) 0.8 H Neut % (Auto) 86.4 H Lymph % (Auto) 5.2 L [place] % (Auto) 7.1 Eos % (Auto) 0.1 Baso % (Auto) 0.4 Lymph # (Auto) 0.7 L [place] # (Auto) 1.0 Eos # (Auto) 0.0 Baso # (Auto) 0.1 Abs Immat Gran (auto) 0.11 H Absolute Neuts (auto) 12.0 H Absolute Nucleated RBC 0.000 Nucleated RBC % (auto) 0.0 PT INR Anion Gap 16 Estim Creat Clear Calc 31.0 Estimated GFR 33 Random Glucose 118 H Lactic Acid Calcium 8.1 L D Magnesium 2.1 Total Bilirubin 1.0 AST 78 H ALT 42 H Alkaline Phosphatase 221 H Troponin I High Sens 16.4 D Total Protein 5.4 L Albumin 2.5 L Influenza Type A (PCR) Influenza Type B (PCR) RSV RNA Qual (PCR) SARS-CoV-2 RNA (RT-PCR) 04/01/22 14:10 MCV MCH MCHC RDW Plt Count MPV Immature Gran % (Auto) Neut % (Auto) Lymph % (Auto) [place] % (Auto) Eos % (Auto) Baso % (Auto) Lymph # (Auto) [place] # (Auto) Eos # (Auto) Baso # (Auto) Abs Immat Gran (auto) Absolute Neuts (auto) Absolute Nucleated RBC Nucleated RBC % (auto) PT INR Anion Gap Estim Creat Clear Calc Estimated GFR Random Glucose Lactic Acid Calcium Magnesium Total Bilirubin AST ALT Alkaline Phosphatase Troponin I High Sens 11.5 Total Protein Albumin Influenza Type A (PCR) Influenza Type B (PCR) RSV RNA Qual (PCR) SARS-CoV-2 RNA (RT-PCR) <BRIA Carreon - Last Filed: 04/01/22 23:57> Imaging Radiologist's Impressions: Impressions Chest X-Ray 04/01/22 10:49 IMPRESSION: Opacities in the right lung suggestive of infiltrates slightly more pronounced since the previous evaluation. There is now partial obscuration of the right diaphragm. New small patchy opacities peripheral left upper lobe now observed with previously noted changes in the mid to left base region improved. Cervical Spine CT 04/01/22 13:25 IMPRESSION: 1. No evidence for bony fracture. 2. Multilevel degenerative changes. 3. Other incidental findings as noted above. Fleischner guidelines were followed. Head CT 04/01/22 13:25 IMPRESSION: No evidence for acute process. Atrophy with change of chronic small vessel ischemic disease of white matter. <BRIA Carroen Last Filed: 04/01/22 23:57> Assessment and Plan (1) Left lower quadrant abdominal pain: Status: Acute <BRIA Carreon - Last Filed: 04/01/22 23:57> (2) Pneumonia: Status: Acute <BRIA Carreon - Last Filed: 04/01/22 23:57> (3) CHANTE (acute kidney injury): Status: Acute <BRIA Carreon - Last Filed: 04/01/22 23:57> (4) Abdominal ascites: Status: Acute <BRIA Carreon Last Filed: 04/01/22 23:57> Pt is a 76-year-old male with a PMH significant for diabetes with diabetic foot ulcers and infections in the past, left toe amputations, HTN, history of Afib on Eliquis, HLD, and history of peripheral vascular disease who presents to the ED from home via ambulance due to generalized weakness, fall, and confusion. Pt will be admitted for treatment for dehydration, CHANTE, and possible pneumonia. # question of community acquired pneumonia -- leukocytosis -- CXR opacities look similar to previous x-rays, but increased superimposed infiltrate cannot be ruled out -- ceftriaxone, azithromycin -- blood cultures pending # CHANTE -- likely secondary to dehydration and decreased PO intake -- IVF -- bladder scan to r/o postrenal source -- monitor labs daily # abdominal pain -- CT of abdomen -- surgery consult -- NPO for now # sepsis, severe -- suspected pneumonia, elevated WBC, lactate >2 -- pt on broad spectrum abx # diabetes -- hold metformin -- ssi -- diabetic diet once off NPO # paroxysmal AFib - continue Eliquis and metoprolol # history of PAD - continue Plavix # hypothyroidism - continue levothyroxine Full code DVT Prophylaxis: on Eliquis Attending: Dr. Silva Pt will require a hospital stay of at least two nights for treatment of CHANTE and pneumonia and further workup. <BRIA Carreon - Last Filed: 04/01/22 23:57> Pt is a 76-year-old male with a PMH significant for diabetes with diabetic foot ulcers and infections in the past, left toe amputations, HTN, history of Afib on Eliquis, HLD, and history of peripheral vascular disease who presents to the ED from home via ambulance due to generalized weakness, fall, and confusion. Pt will be admitted for treatment for dehydration, CHANTE, and possible pneumonia. # question of community acquired pneumonia -- leukocytosis, no sepsis acute Lactic acidosis probably related to metformin-seems improvin,will stop trendin, CHANTE due to poor oral intake. -- CXR opacities look similar to previous x-rays, but increased superimposed infiltrate cannot be ruled out -- ceftriaxone, azithromycin -- blood cultures pending # CHANTE -- likely secondary to dehydration and decreased PO intake -- IVF -- bladder scan to r/o postrenal source -- monitor labs daily # abdominal pain -- CT of abdomen -- surgery consult -- NPO for now # diabetes -- hold metformin -- ssi -- diabetic diet once off NPO # paroxysmal AFib - continue Eliquis and metoprolol # history of PAD - continue Plavix # hypothyroidism - continue levothyroxine Full code DVT Prophylaxis: on Eliquis Attending: Dr. Silva Pt will require a hospital stay of at least two nights for treatment of CHANTE and pneumonia and further workup.time spent 70 min. <Scott Silva MD - Last Filed: 04/02/22 13:59> Time Spent With Patient Time: Total time managing care of this patient today ____ minutes. <BRIA Carreon - Last Filed: 04/01/22 23:57> Quality Stroke Does the patient have a stroke diagnosis?: No <BRIA Carreon - Last Filed: 04/01/22 23:57> VTE Prior VTE?: No <BRIA Carreon - Last Filed: 04/01/22 23:57> VTE Risk Level:: Medical - moderate - high <BRIA Carreon - Last Filed: 04/01/22 23:57> VTE Device Contraindication: Treatment Not Indicated <BRIA Carreon - Last Filed: 04/01/22 23:57> VTE Drug Contraindication: N/A - Med Ordered <BRIA Carreon - Last Filed: 04/01/22 23:57>
--- NOTE | 2022-04-01 15:12 | MHC.CM.ED ---
Patient came to ER due to falls and weakness. Received telephone call from Latha at [facility]. Patient is active with their agency. Patient was recently discharged from [facility]. Patient has been falling. Latha can be reached via telephone at [phone]. Referral made in [facility] to [facility], so they can follow for d/c needs. Per Dr Brothers, patient will be admitted. Latha made aware via telephone. Continue to monitor for d/c needs.
[2022-04-01 15:31] LABS: ~Lactic Acid-LAB USE ONLY 2.3 mmol/L (0.5-2.0)
--- NOTE | 2022-04-01 16:20 | PHA.MEDREC ---
Pharmacy Consult ? Medication Reconciliation Pharmacy has completed the medication reconciliation. Spoke to patients on the phone.
[2022-04-01 16:28] LABS: Reflex Lactate? 2 Y
--- NOTE | 2022-04-01 16:43 | P.EN_ITS ---
Event Note Date of Service: 04/01/22 Event Note: This patient is seen and examined with APC. Patient came to the hospital because of confusion, generalized weakness, poor oral intake, also has abdominal pain also -says 1-2 days(unclear how long,says hunger pains): po also has lower left sided abd pain Lab imaging, EKG reviewed. Found to have CHANTE, chest x-ray-? Opacity looks similar to the previous chest x- rays with mild increased superimposed infiltrate cannot be ruled out. WBC 13.8, lactic acid 2.3,ekg seems similar to before. No fevers, blood cultures sent Physical exam : Appearance: Alert.? Oriented X3.? not in distress.? cvs: rrr, [id number]. res: clear to auscultation ,no rhonchii or wheezing abd: no rebound ,left lower abd pain,some voluntary guardin, somewhat distended , bs present. ext pulses present , no cyanosis . neuro: axo3 , nonfocal. assessment and plan coordinated in APCs note, Agree with the plan in addition: Toxic metabolic encephalopathy multifactorial chante,dehydration, functiondecline Plan hydrate, start antibiotic for possible pneumonia, not trending of further lactic acid. Lactic acid related to metformin use. abd pain:keep npo,gentle hydration,Check bladder scan. ct abd-eval abd pain/some distended surgery eval added he says he passed last bm's yesterday-denies any blood in the stool or nausea or vomiting Hold metformin Time Spent With Patient Time: Total time managing care of this patient today ____ minutes.
--- OUTSIDE RECORDS SUMMARY | 2022-04-01 17:04 | XMS_ITS | Encounter Summary ---
:1945 Author Care Team Providers Name Role Phone Jayla Murrieta MD Primary Care Provider [phone] [facility] 1st Floor OTHER [phone] Reason for Visit Acute Rounding Visit Assessment and Plan 1. Pneumonia recovered treated with abx, steriods, and oxygen i n the hospital azithromycin 500 mg q 24 hours for 3 mor e days to 03/10 prednisone taper 2. Acute COVID-19 recovered by date Pt was positive on 02/21/22 He received remdesivir and decadron monitor for sequelae isolation precautions resolved 3. Falls PT OT eval and treat fall precautions frequent safety checks 4. Impaired cognition Mild cognitive impairment. Monitor for w orsening post-COVID. poor safety awareness Understands medical problems and ok to m jeanne his own decisions. Discussion Note: None recorded.Patient educational handouts: No information available. Plan of Care Reminders Provider Appointments None recorded. ? ? Lab None recorded. ? ? Referral None recorded. ? ? Procedures None recorded. ? ? Surgeries None recorded. ? ? Imaging None recorded. ? ? Medications Notes: Meds reviewed, see [facility] for comp lete list. Medications Administered None recorded. Vitals Height Blood Pressure 5 ft 10.8 in 123/68 mm[Hg] Results Lab Results None recorded. Allergies Code Code System Name Reaction Severity Onset NKDA ? ? ? Problems Name Status Onset Date Source ? Hypothyroidism Active 03/06/2022 ? Type 2 Diabetes Mellitus Active 03/06/2022 ? Hyperlipidemia Active 03/06/2022 ? Insomnia Active 03/06/2022 ? Atrial Fibrillation Active 03/06/2022 ? Heart Failure Active 03/06/2022 ? Pneumonia Active 03/06/2022 ? Acute COVID-19 Active 03/06/2022 ? Infection of Toenail Active 03/06/2022 ? Onychomycosis of Toenails Active 03/12/2022 ? Impaired Cognition Active 03/12/2022 ? Essential Hypertension Active 03/12/2022 ? Peripheral Vascular Disease Active 03/12/2022 ? Falls Active 03/18/2022 ? Procedures None recorded. Vaccine List None recorded. Social History Tobacco Smoking Status Former Smoker What is your level of alcohol Occasional Notes: c ouple of beers on consumption? the weekend Has tobacco cessation counseling N Notes: n/a as pt no longer been provided? smokes How many times per week do you 1-2 times per week consume alcohol? What is your code status? Full Code Do you have a medical power of Y city attorney? What was the date of your most 03/12/2022 recent tobacco screening? Do you have an advance directive? Y Legal Guardian? N Do you have an out of hospital DNR? N Do you or have you ever used any N other forms of tobacco or nicotine? Have you ever been counseled for N unhealthy alcohol use? Do you use any illicit or N recreational drugs? Where do you live? [facility] How many years have you smoked Notes: greater than 40 years tobacco? , 1/2 ppd or less, q uit 10 yrs ago What is your relationship status? Functional Status Unknown. Past Encounters Encounter Date Diagnosis Provider 03/25/2022 Pneumonia; Acute COVID-19; Falls; Delfina Taylor PASTRY CHEF: [address] Impaired Cognition [facility], [place] [address], Ph. 03/19/2022 Falls; Impaired Cognition Delfina Taylor PASTRY CHEF: [address] [facility], [place] [address], Ph. 03/18/2022 Falls; Impaired Cognition; Pneumonia Delfina Taylor PASTRY CHEF: [address] [facility], [place] [address], Ph. 03/15/2022 Pneumonia; Acute COVID-19; Type 2 Delfina Taylor PASTRY CHEF: [address] Diabetes Mellitus [facility], [place] [address], Ph. 03/12/2022 Acute COVID-19; Pneumonia; Atrial Quiana doran MD: [address] Fibrillation; Essential Hypertension; [facility], RIGOBERTO Kwok Heart Failure; Hyperlipidemia; [phone], Ph. Onychomycosis of Toenails; Infection of Toenail; Hypothyroidism; Type 2 Diabetes Mellitus; Insomnia; Peripheral Vascular Disease; Impaired Cognition 03/10/2022 Pneumonia; Heart Failure Delfina Taylor, PASTRY CHEF: [address], [place] [address], Ph. 03/08/2022 Acute COVID-19; Pneumonia; Heart Delfina todd, PASTRY CHEF: [address] Failure; Hyperlipidemia; Atrial [address], [place], [place] Fibrillation; Infection of Toenail; [phone], Ph. Hypothyroidism; Type 2 Diabetes Mellitus; Insomnia 03/06/2022 Acute COVID-19; Pneumonia; Heart Raomna Saldaña, PASTRY CHEF: 20 Failure; Hyperlipidemia; [place]; Infection of Toenail; [phone], Ph. Hypothyroidism; Type 2 Diabetes Mellitus; Insomnia History of Present Illness Note: <div>seen today for acute rounding visit, CAOx1 in bed, lungs clear, no further falls reported, but he continues to have poor safety awareness, not safe for d/c</div>Review of Systems: ROS as noted in the HPI Review of Systems None recorded. Physical Exam ? General Adult Exam Reported By: Patient Constitutional: General Appearance: healthy- appearing, well-nourished, well-developed. Level of Dis tress: NAD. Ambulation: ambulation with walker, in wheelchair Psychiatric: Insight: poor insight; very vague and general to answer questions. Mental Status: active and al ert, normal mood, normal affect. Orientation: to person. Juan J ry: recent memory abnormal Head: Head: normocephalic, atrauma tic Eyes: Lids and Conjunctivae: non-i njected. Sclerae: non-icteric; glasses ENMT: Hearing: no hearing loss. Or opharynx: moist mucous membranes; poor dentition, no dentures Neck: Neck: supple, no masses Lungs: Auscultation: breath sounds normal, good air movement, no wheezing, no rales/crackles, no rhonch i Cardiovascular: Heart Auscultation: RRR Abdomen: Bowel Sounds: normal, soft, no guarding, non-distended, no rebound tenderness Musculoskeletal:: Extremities: no cyanosis, no edema. Joints, Bones, and Muscles (normal) normal movement of all extremities Neurologic: Gait and Station: ; gait not seen today. Cranial Nerves: grossly intact Skin: Inspection and palpation: no rash; ecchymotic area to right lower arm Notes: <div>03/08 wbc 16.2 h/h 9.3/ 27.7 plt 190 na 138 k 3.9 bun 46 creat 1.44 gfr 47</div><div>03/15 wbc 9.7 h/h 10.2/31.4 plt 119 na 139 k 4.2 bun 43 creat 1.49 gfr 46 </div><div>03/22 wbc 8.2 h/h 9.7/29.2 plt 155 na 137 k 4.0 bun 32 creat 1.29 gfr 54</div>
--- OUTSIDE RECORDS SUMMARY | 2022-04-01 17:04 | XMS_ITS ---
:1945 Author Care Team Providers Name Role Phone [facility] 1ST FLOOR OTHER [phone] MEAGAN LAWSON MD Primary Care Provider [phone] Allergies Code Code System Name Reaction Severity Status Onset NKDA ? Medications Notes: Meds reviewed, see MAR for comp lete list. Problems Name Status Onset Date Source ? [...] Falls Active 03/18/2022 ? Procedures None recorded. Results Lab Results None recorded. Past Encounters Encounter Date Diagnosis Provider 03/26/2022 Acute COVID-19; Pneumonia; Heart Delfina todd, FIBERGLASS GRINDER: 36 Lower Failure; Hyperlipidemia; Atrial [address], [place], [place] Fibrillation; Infection of Toenail; 010 5-2722, Ph. Hypothyroidism; Type 2 Diabetes Mellitus; Insomnia; Falls; Impaired Cognition; Peripheral Vascular Disease 03/25/2022 Pneumonia; Acute COVID-19; Falls; Delfina Taylor FIBERGLASS GRINDER: [address] [place] [address], Ph. 03/19/2022 Falls; Impaired Cognition Deflina Taylor FIBERGLASS GRINDER: [address] [place] [address], Ph. 03/18/2022 Falls; Impaired Cognition; Pneumonia Delfina Taylor, FIBERGLASS GRINDER: [address], [place] [address], Ph. 03/15/2022 Pneumonia; Acute COVID-19; Type 2 Delfina Taylor, FIBERGLASS GRINDER: [address], [place] [address], Ph. 03/12/2022 Acute COVID-19; Pneumonia; Atrial Quiana doran MD: [address] Lower Fibrillation; Essential Hypertension; [facility] [address], [place], [place] Heart Failure; Hyperlipidemia; [address], Ph. Onychomycosis of Toenails; Infection of Toenail; Hypothyroidism; Type 2 Diabetes Mellitus; Insomnia; Peripheral Vascular Disease; Impaired Cognition 03/10/2022 Pneumonia; Heart Failure Delfina Taylor, FIBERGLASS GRINDER: [address] [facility], [place] [address], Ph. 03/08/2022 Acute COVID-19; Pneumonia; Heart Delfina todd, FIBERGLASS GRINDER: [address] Failure; Hyperlipidemia; Atrial [facility] [address], [place], [place] Fibrillation; Infection of Toenail; 0104 0-9685, Ph. Hypothyroidism; Type 2 Diabetes Mellitus; Insomnia 03/06/2022 Acute COVID-19; Pneumonia; Heart Ramona Saldaña, FIBERGLASS GRINDER: 20 Failure; Hyperlipidemia; [facility]rial [facility] [place] Fibrillation; Infection of Toenail; 0103 5-97[address], Ph. Hypothyroidism; Type 2 Diabetes Mellitus; Insomnia Social History Tobacco Smoking Status Former Smoker Vaccine List None recorded. Plan of Care Reminders Provider Appointments None recorded. ? ? Lab None recorded. ? ? Referral None recorded. ? ? Procedures None recorded. ? ? Surgeries None recorded. ? ? Imaging None recorded. ? ? Vitals 03/26/2022 08:29AM Discharge Summary Height Blood Pressure 5 ft 10.8 in 110/64 mm[Hg] 03/25/2022 11:50AM Acute Rounding Visit Height Blood Pressure 5 ft 10.8 in 123/68 mm[Hg] 03/19/2022 11:26AM Acute Rounding Visit Height Blood Pressure 5 ft 10.8 in 132/70 mm[Hg] 03/18/2022 12:32PM Acute Rounding Visit Height Weight BMI Blood Pressure 5 ft 10.8 in 151.6 lbs 21.3 kg/m2 136/70 mm[Hg] 03/15/2022 11:37AM Acute Rounding Visit Height Blood Pressure 5 ft 10.8 in 106/62 mm[Hg] 03/12/2022 06:17PM Admitting H&P Height Weight BMI Blood Pressure 5 ft 10.8 in 150.4 lbs 21.1 kg/m2 111/72 mm[Hg] 03/10/2022 01:36PM Acute Rounding Visit Blood Pressure 101/50 mm[Hg] 03/08/2022 12:08PM Acute Rounding Visit Weight Blood Pressure 150.8 lbs 140/60 mm[Hg] 03/06/2022 08:00AM Initial Intake Note Blood Pressure 153/61 mm[Hg]
--- OUTSIDE RECORDS SUMMARY | 2022-04-01 17:04 | XMS_ITS | Encounter Summary ---
:1945 Author Care Team Providers Name Role Phone Jayla Murrieta MD Primary Care Provider [phone] [facility] 1st Floor OTHER [phone] Reason for Visit Acute Rounding Visit Assessment and Plan 1. Falls PT OT eval and treat fall precautions frequent safety checks 2. Impaired cognition Mild cognitive impairment. Monitor for worsening post-COVID. Understands medical problems and ok to m jeanne his own decisions. 3. Pneumonia recovered treated with abx, steriods, and oxygen i the hospital azithromycin 500 mg q 24 hours for 3 mor e days to 03/10 prednisone taper Discussion Note: None recorded.Patient educational handouts: No information available. Plan of Care Reminders Provider Appointments None recorded. ? ? Lab None recorded. ? ? Referral None recorded. ? ? Procedures None recorded. ? ? Surgeries None recorded. ? ? Imaging None recorded. ? ? Medications Notes: Meds reviewed, see MAR for comp lete list. Medications Administered None recorded. Vitals Height Weight BMI Blood Pressure 5 ft 10.8 in 151.6 lbs 21.3 kg/m2 136/70 mm[Hg] Results Lab Results None recorded. Allergies [...] you have a medical power of Y linux systems engineer? What was the date of your most [...] Unknown. Past Encounters Encounter Date Diagnosis Provider 03/18/2022 Falls; Impaired Cognition; Pneumonia Delfina Taylor FINANCE MANAGER: [address] [facility] [place] [address], [phone] 03/15/2022 Pneumonia; Acute COVID-19; Type 2 Delfina Taylor FINANCE MANAGER: [address] [facility] [address], Ph. 03/12/2022 Acute COVID-19; Pneumonia; Atrial Quiana doran MD: 36 Lower Fibrillation; Essential Hypertension; [place], [place] Heart Failure; Hyperlipidemia; [address], Ph. Onychomycosis of Toenails; Infection of Toenail; Hypothyroidism; Type 2 Diabetes Mellitus; Insomnia; Peripheral Vascular Disease; Impaired Cognition 03/10/2022 Pneumonia; Heart Failure Delfina Taylor FINANCE MANAGER: 36 [facility] [place] [address], Ph. [phone] 03/08/2022 Acute COVID-19; Pneumonia; Heart Delfina todd FINANCE MANAGER: 36 Lower Failure; Hyperlipidemia; Atrial [place], [place] Fibrillation; Infection of Toenail; 0107 1-7009, Ph. Hypothyroidism; Type 2 Diabetes Mellitus; Insomnia 03/06/2022 Acute COVID-19; Pneumonia; Heart Ramona Saldaña NP: 20 Failure; Hyperlipidemia; Atrial [address], [place], [place] Fibrillation; Infection of Toenail; 0103 2-6959, Ph. Hypothyroidism; Type 2 Diabetes Mellitus; Insomnia History of Present Illness Note: <div>seen today for acute rounding visit-CAOx2 he had a fall yesterday with no injury, it delayed his discharge by a couple of days, tolerating PT and improving slowly</div>Review of Systems: ROS as noted in the HPI Review of Systems None recorded. Physical Exam ? General Adult Exam Reported By: Patient Constitutional: General Appearance: healthy- appearing, well-nourished, well-developed. Level of Dis tress: NAD. Ambulation: ambulation with walker, in wheelchair Psychiatric: Insight: good judgement; nevaeh y vague and general to answer questions. Mental Status: ac tive and alert, normal mood, normal affect. Orientation: to plac e, to person. Memory: recent memory abnormal Head: Head: normocephalic, atrauma tic Eyes: Lids and Conjunctivae: non-i njected. Pupils: PERRLA. EOM: EOMI. Sclerae: non-icteric; glasse s ENMT: Hearing: no hearing loss. Or opharynx: [...] 4.2 bun 43 creat 1.49 gfr 46 </div>
--- OUTSIDE RECORDS SUMMARY | 2022-04-01 17:04 | XMS_ITS | Encounter Summary ---
:1945 Author Care Team Providers Name Role Phone Jayla Murrieta MD Primary Care Provider [phone] [facility] 1st Floor OTHER [phone] Reason for Visit Acute Rounding Visit Assessment and Plan 1. Pneumonia treated with abx, steriods, and oxygen in the hospital azithromycin 500 mg q 24 hours for 3 mor e days to 03/10 prednisone taper 2. Acute COVID-19 Pt was positive on 02/21/22 He received remdesivir and decadron monitor for sequelae isolation precautions resolved 3. Type 2 diabetes mellitus metformin 500 mg bid with meals Discussion Note: None recorded.Patient educational handouts: No [...] Pressure 5 ft 10.8 in 106/62 mm[Hg] Results Lab Results None recorded. Allergies [...] you have a medical power of Y ip technology transactions attorney? What was the date of your [...] Unknown. Past Encounters Encounter Date Diagnosis Provider 03/15/2022 Pneumonia; Acute COVID-19; Type 2 Delfina Taylor NP: [address] [place] [address], Ph. 03/12/2022 Acute COVID-19; Pneumonia; Atrial Quiana doran MD: 36 Lower Fibrillation; Essential Hypertension; [place], [place] Heart Failure; Hyperlipidemia; [address], Ph. Onychomycosis of Toenails; Infection of Toenail; Hypothyroidism; Type 2 Diabetes Mellitus; Insomnia; Peripheral Vascular Disease; Impaired Cognition 03/10/2022 Pneumonia; Heart Failure Delfina Taylor NP: [address] [place] [address], Ph. 03/08/2022 Acute COVID-19; Pneumonia; Heart Delfina todd NP: 36 Lower Failure; Hyperlipidemia; [address]rial [place] Fibrillation; Infection of Toenail; 0104 0-9685, Ph. Hypothyroidism; Type 2 Diabetes Mellitus; Insomnia 03/06/2022 Acute COVID-19; Pneumonia; Heart Ramona Saldaña NP: 20 Failure; Hyperlipidemia; Atrial [address], [place], [place] Fibrillation; Infection of Toenail; 0101 1-6390, Ph. Hypothyroidism; Type 2 Diabetes Mellitus; Insomnia History of Present Illness Note: <div>seen today for acute rounding visit, CAOx2 resting in bed, with eyes closed, lungs clear, dim bases, he was napping but easily arousable, no resp distress noted or reported</div>Review of Systems: ROS as noted in the [...]
--- OUTSIDE RECORDS SUMMARY | 2022-04-01 17:04 | XMS_ITS | Encounter Summary ---
:1945 Author Care Team Providers Name Role Phone Jayla Murrieta MD Primary Care Provider [phone] [facility] 1st Floor OTHER [phone] Reason for Visit Admitting H&P Assessment and Plan 1. Acute COVID-19 Tested positive on 02/21/22 Txed with remdesivir, baricitinib and de xamethasone. Completing prednisone taper until 03/18. Developed secondary PNA as below. Now weaned to RA. Monitor for sequelae. 2. Pneumonia As above. Completed azithromycin 500 mg qd on 02/17 3 Monitor resp. status 3. Atrial fibrillation Rate in good control on metoprolol succ inate 100 mg qd and amiodarone 200 mg qd. Continue eliquis 5 mg BID for AC. Monitor HR and bleeding risk. 4. Essential hypertension Good control on metoprolol 100 mg qd, l asix 20 mg qd and amlodipine 10 mg qd. Monitor BP and labs. 5. Heart failure Not really discussed in notes and no ec ho found in system. Continue meds as above. Monitor resp. status, fluid status, wts and labs. 6. Hyperlipidemia Continue atorvastatin 10 mg qhs Monitor labs as outpt. 7. Onychomycosis of toenails Continue clotrimazole 1 % topically BID until healed Topical tx unlikely to help, but can giv e it a try. 8. Infection of toenail toenail fungus Continue clotrimazole 1 % topically bid until healed 9. Hypothyroidism Continue levothyroxine 25 mcg qd Monitor TSH yearly and prn. 10. Type 2 diabetes mellitus Sugars in good control inpt. Not being monitored here. Continue metformin 500 mg BID Monitor prn 11. Insomnia Continue mirtazapine 7.5 mg qhs Monitor sleep patterns. 12. Peripheral vascular disease In hx. Continue clopidogrel 75 mg qd. Monitor 13. Impaired cognition Mild cognitive impairment. Monitor for [...] in 150.4 lbs 21.1 kg/m2 111/72 mm[Hg] Results Lab Results None recorded. Allergies [...] you have a medical power of Y tax associate attorney? What was the date of your [...] Unknown. Past Encounters Encounter Date Diagnosis Provider 03/12/2022 Acute COVID-19; Pneumonia; Atrial Quiana doran MD: 36 Lower Fibrillation; Essential Hypertension; [facility] [address], [place], [place] Heart Failure; Hyperlipidemia; [address], Ph. Onychomycosis of Toenails; Infection of Toenail; Hypothyroidism; Type 2 Diabetes Mellitus; Insomnia; Peripheral Vascular Disease; Impaired Cognition 03/10/2022 Pneumonia; Heart Failure Delfina Taylor, BANK CASHIER: [address], [place] [address], Ph. 03/08/2022 Acute COVID-19; Pneumonia; Heart Delfina todd, BANK CASHIER: 36 Lower Failure; Hyperlipidemia; [address] [facility] [address], [place], [place] Fibrillation; Infection of Toenail; 0104 0-9685, Ph. Hypothyroidism; Type 2 Diabetes Mellitus; Insomnia 03/06/2022 Acute COVID-19; Pneumonia; Heart Ramona Saldaña, BANK CASHIER: 20 Failure; Hyperlipidemia; [place]; Infection of Toenail; 0103 5-9715, Ph. Hypothyroidism; Type 2 Diabetes Mellitus; Insomnia History of Present Illness Note: <div>This is a 76 yo man who is here for rehab after an acute hospitalization for COVID PNA. He presented to the [facility] on 02/21 with c/o of nausea and general weakness for 2-3 days FASHION MODEL. He tested + for COVID in the ED. Temp was 99.9, O2 sat was 86% on 2L but improved to 94% on 3L by NC, BP-133/42 and P-66. Labs were non-acute aside from mild CHANTE. CXR showed Bilateral areas of opacityconsistent with infiltrates. Most noted in the mid to lower lung zones. He was started on dexamethasone, remdesivir and ceftriaxone. Seen by ID on 02/22 and abx d/c'd as presentation c/w COVID PNA, not bacterial. Had trouble weaning from O2 and baricitinib was added. He continued to desat with activity and repeat CXR on 03/03 showed Scattered bilateral groundglass opacities, increased from prior exam 02/21/2022. Findings may suggest atypical or viral pneumonia . Azithromycin was started. Was also restarted on lasix 20 mg qd. as renal function improved. He continued to need supplemental O2, but was stable and was transferred here on 03/05 for rehab. </div><div>Since here he has been able to be weaned to R/A and is gradually getting stronger. 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 Notes: <div>All others reviewed and negative unless otherwise stated in the HPI.</div> Physical Exam ? General Adult Exam Reported By: Patient Constitutional: General Appearance: well-nou rished. Level of Distress: NAD, chronically ill. Ambulation: ambulation with walker, in wheelchair Psychiatric: Insight: good judgement. Men joseline Status: active and alert, normal mood, normal affect. Orienta tion: to time, to person, not oriented to place. Memory: remote mem ory normal, recent memory abnormal; vague about recent events. S ays he's [age], knows his and address. Says president is Rex kendall, then says no, it's that other jerk , but can't come up wit h a name Head: Head: normocephalic, atrauma tic Eyes: Lids and Conjunctivae: non-i njected. Sclerae: non-icteric ENMT: Hearing: no hearing loss. Or opharynx: moist mucous membranes; poor dentition Lungs: Auscultation: good air movem ent, no wheezing, no rales/crackles, no rhonchi Cardiovascular: Heart Auscultation: RRR Abdomen: Bowel Sounds: normal, soft, non-distended, no tenderness Musculoskeletal:: Extremities: no cyanosis, no edema. Joints, Bones, and Muscles normal movement of all extre mities Neurologic: Cranial Nerves: grossly inta ct Skin: Inspection and palpation: no rash; ecchymotic area to right lower arm Notes: <div>03/08 wbc 16.2 h/h 9.3/ 27.7 plt 190 na 138 k 3.9 bun 46 creat 1.44 gfr 47</div>
--- OUTSIDE RECORDS SUMMARY | 2022-04-01 17:04 | XMS_ITS | Encounter Summary ---
:1945 Author Care Team Providers Name Role Phone Jayla Murrieta MD Primary Care Provider [phone] [facility] 1st Floor OTHER [phone] Reason for Visit Acute Rounding Visit Assessment and Plan 1. Falls PT OT eval and treat fall precautions frequent safety checks 2. Impaired cognition Mild cognitive impairment. Monitor for w orsening post-COVID. poor safety awareness Understands medical problems and ok to maya angel his own decisions. Discussion Note: None recorded.Patient [...] Pressure 5 ft 10.8 in 132/70 mm[Hg] Results Lab Results None recorded. Allergies [...] you have a medical power of Y workers compensation defense attorney? What was the date of your [...] Unknown. Past Encounters Encounter Date Diagnosis Provider 03/19/2022 Falls; Impaired Cognition Delfina Taylor FOOD MANAGER: [address] [place] [address], Ph. [phone] 03/18/2022 Falls; Impaired Cognition; Pneumonia Delfina Taylor FOOD MANAGER: [address] [place] [address], Ph. 03/15/2022 Pneumonia; Acute COVID-19; Type 2 Delfina Taylor FOOD MANAGER: [address] [place] [address], Ph. 03/12/2022 Acute COVID-19; Pneumonia; Atrial Quiana doran MD: 36 Lower Fibrillation; Essential Hypertension; [place], [place] Heart Failure; Hyperlipidemia; [address], Ph. Onychomycosis of Toenails; Infection of Toenail; Hypothyroidism; Type 2 Diabetes Mellitus; Insomnia; Peripheral Vascular Disease; Impaired Cognition 03/10/2022 Pneumonia; Heart Failure Delfina Taylor FOOD MANAGER: [address] [place] [address], Ph. 03/08/2022 Acute COVID-19; Pneumonia; Heart Delfina todd FOOD MANAGER: 36 Lower Failure; Hyperlipidemia; Atrial [place], [place] Fibrillation; Infection of Toenail; 0104 0-9685, Ph. Hypothyroidism; Type 2 Diabetes Mellitus; Insomnia 03/06/2022 Acute COVID-19; Pneumonia; Heart Ramona Saldaña FOOD MANAGER: 20 Failure; Hyperlipidemia; Atrial [address], [place], [place] Fibrillation; Infection of Toenail; 010 5-6269, Ph. Hypothyroidism; Type 2 Diabetes Mellitus; Insomnia History of Present Illness Note: <div>seen today for acute rounding visit, CAOx3 he has poor safety awareness and had another fall last night, no injury noted or reported, he was due for discharge but now on hold</div>Review of Systems: ROS as noted in the [...] k 3.9 bun 46 creat 1.44 gfr 47</div><div>11/28 wbc 9.7 h/h 10.2/31.4 plt 119 na 139 k 4.2 bun 43 creat 1.49 gfr 46 </div>
--- OUTSIDE RECORDS SUMMARY | 2022-04-01 17:04 | XMS_ITS | Encounter Summary ---
:1945 Author Care Team Providers Name Role Phone Jayla Murrieta MD Primary Care Provider [phone] [facility] 1st Floor OTHER [phone] Reason for Visit Acute Rounding Visit Assessment and Plan 1. Pneumonia treated with abx, steriods, and oxygen in the hospital azithromycin 500 mg q 24 hours for 3 mor e days to 03/10 prednisone taper 2. Heart failure amlodipine 10 mg daily amiodarone 200 mg daily lasix 20 mg daily monitor Discussion Note: None recorded.Patient educational handouts: No information available. Plan of Care Reminders Provider Appointments None recorded. ? ? Lab None recorded. ? ? Referral None recorded. ? ? Procedures None recorded. ? ? Surgeries None recorded. ? ? Imaging None recorded. ? ? Medications Notes: Meds reviewed, see MAR for comp lete list. Medications Administered None recorded. Vitals Blood Pressure 101/50 mm[Hg] Results Lab Results None recorded. Allergies [...] you have a medical power of Y deputy commonwealth's attorney? What was the date of your [...] Unknown. Past Encounters Encounter Date Diagnosis Provider 03/10/2022 Pneumonia; Heart Failure Delfina Taylor CAN LINE OPERATOR: [address] [facility], [place] [address], Ph. 03/08/2022 Acute COVID-19; Pneumonia; Heart Delfina todd CAN LINE OPERATOR: 36 [facility] Failure; Hyperlipidemia; Atrial [place], [place] Fibrillation; Infection of Toenail; 0104 0-9685, Ph. Hypothyroidism; Type 2 Diabetes Mellitus; Insomnia 03/06/2022 Acute COVID-19; Pneumonia; Heart Ramona Saldaña, CAN LINE OPERATOR: 20 [place] Failure; Hyperlipidemia; [place] [address], Fibrillation; Infection of Toenail; Ph. Hypothyroidism; Type 2 Diabetes Mellitus; Insomnia History of Present Illness Note: <div>seen today for acute rounding visit, CAOx2 resting in bed, lungs clear, occasional dry cough, no resp distress noted or reported, eating and drinking fairly well</div>Review of Systems: ROS as noted in the [...]
--- OUTSIDE RECORDS SUMMARY | 2022-04-01 17:04 | XMS_ITS | Encounter Summary ---
:1945 Author Care Team Providers Name Role Phone Jayla Murrieta MD Primary Care Provider [phone] [facility] 1st Floor OTHER [phone] Reason for Visit Discharge Assessment and Plan 1. Acute COVID-19 recovered Pt was positive on 02/21/22 He received remdesivir and decadron monitor for sequelae isolation precautions resolved 2. Pneumonia recovered treated with abx, steriods, and oxygen i n the hospital azithromycin 500 mg q 24 hours for 3 mor e days to 03/10 prednisone taper 3. Heart failure amlodipine 10 mg daily amiodarone 200 mg daily lasix 20 mg daily monitor 4. Hyperlipidemia atorvastatin 10 mg po qhs monitor 5. Atrial fibrillation clopidogrel 75 mg po daily metoprolol succinate 100 mg daily amiopdarone 200 mg daily eliquis 5 mg bid monitor 6. Infection of toenail toenail fungus clotrimazole 1 % topically bid until hea led 7. Hypothyroidism levothyroxine 25 mcg am monitor 8. Type 2 diabetes mellitus metformin 500 mg bid with meals 9. Insomnia mirtazapine 7.5 mg at qhs 10. Falls PT OT eval and treat fall precautions frequent safety checks 11. Impaired cognition Mild cognitive impairment. Monitor for w orsening post-COVID. poor safety awareness Understands medical problems and ok to m jeanne his own decisions. 12. Peripheral vascular disease clopidogrel 75 mg qd. Monitor Discussion Note: None recorded.Patient educational handouts: No [...] Pressure 5 ft 10.8 in 110/64 mm[Hg] Results Lab Results None recorded. Allergies [...] you have a medical power of Y commercial real estate attorney? What was the date of your [...] Unknown. Past Encounters Encounter Date Diagnosis Provider 03/26/2022 Acute COVID-19; Pneumonia; Heart Delfina todd PET CARETAKER: 36 Lower Failure; Hyperlipidemia; Atrial [address], [place] Fibrillation; Infection of Toenail; [phone], Ph. Hypothyroidism; Type 2 Diabetes Mellitus; Insomnia; Falls; Impaired Cognition; Peripheral Vascular Disease 03/25/2022 Pneumonia; Acute COVID-19; Falls; Delfina Taylor PET CARETAKER: 36 Lower Impaired Cognition [address], [place] [address], Ph. 03/19/2022 Falls; Impaired Cognition Delfina Taylor, PET CARETAKER: [address], [place] [address], Ph. 03/18/2022 Falls; Impaired Cognition; Pneumonia Delfina Taylor, PET CARETAKER: [address], [place] [address], Ph. 03/15/2022 Pneumonia; Acute COVID-19; Type 2 Delfina Taylor, PET CARETAKER: [address], [place] [address], Ph. 03/12/2022 Acute COVID-19; Pneumonia; Atrial Quiana doran MD: 36 Lower Fibrillation; Essential Hypertension; [address] [facility] [address], [place], [place] Heart Failure; Hyperlipidemia; [address], Ph. Onychomycosis of Toenails; Infection of Toenail; Hypothyroidism; Type 2 Diabetes Mellitus; Insomnia; Peripheral Vascular Disease; Impaired Cognition 03/10/2022 Pneumonia; Heart Failure Delfina Taylor PET CARETAKER: [address] [facility], [place] [address], Ph. [phone] 03/08/2022 Acute COVID-19; Pneumonia; Heart Delfina todd, PET CARETAKER: 36 Lower Failure; Hyperlipidemia; Atrial [facility] [address], [place], [place] Fibrillation; Infection of Toenail; 0104 0-9685, Ph. Hypothyroidism; Type 2 Diabetes Mellitus; Insomnia 03/06/2022 Acute COVID-19; Pneumonia; Heart Ramona Saldaña, PET CARETAKER: 20 Failure; Hyperlipidemia; Atrial [place], [place] Fibrillation; Infection of Toenail; [phone], Ph. Hypothyroidism; Type 2 Diabetes Mellitus; Insomnia History of Present Illness Note: <div>seen today for discharge summary-</div><div>76 yom presented to [facility] [place] ER with nausea and general weakness. His COVID 19 test was positive on 02/21. His CXR showed bilateral infiltrates. He received IV recommendations and his oxygen was weaned to 3 Liters NC. He received antibiotics, decadron 6 mg daily starting on 01/25 and completed remdesivir, and lasix. </div><div></div><div>He is sitting up in bed in NAD. He has no oxygen on with saturation of 96% RA. He has finished 100% of his breakfast this am. He has a few bruises on his right arm that he statesare from bumping into a door knob at home without a fall. </div><div> </div><div>He is able to state the year but not the date or month. States the month is February. He also states he does not want to finish the questions for memory this am because he is forgetful already and therefore the [facility] exam is not completed. He is able to speak able code status clearly, who he liveswith, tell time, and answer general questions enough to not be invoked today. </div><div>
</div><div>CAOx1 resting in bed, lungs clear, medically stable, no resp distress, no further falls, good po intake, he will need supervision at home</div>Review of Systems: ROS as noted in the [...] normal mood, normal affect. Orientation: to person. Jua Nj ry: recent memory abnormal Head: Head: normocephalic, [...]
--- OUTSIDE RECORDS SUMMARY | 2022-04-01 17:05 | XMS_ITS ---
:1945 Author Organization [facility] Address [address] [place] [address] Care Team Providers Name Role Phone Polo Fung Unavailable Unavailable PROBLEMS Unknown Problems ALLERGIES No Information ENCOUNTERS Encounter Location Date Diagnosis [facility] [address] Ja n, [address] [place] [address] [facility] [address] v, [address] [place] [address] [facility] Outpatient [address] [place], [place] Nov, [id number] [facility] ER [address] [place], [place] Sep, [id number] IMMUNIZATIONS No Known Immunizations SOCIAL HISTORY Never Assessed REASON FOR REFERRAL FUNCTIONAL STATUS PLAN OF CARE VITAL SIGNS MEDICATIONS Unknown Medications PROCEDURES No Known procedures RESULTS No Results REASON FOR VISIT screening colonoscopy, cancel, screening colonoscopy, No show, screening colonoscopy Insurance Providers [facility] Member Patient Patient Patient Patient Patient Subscriber Subscriber Subscriber Group Insurance Plan Plan Plan Plan ID Relationship Address Phone Name Date of ID Name Date of No Type Insurance Insurance Insurance Coverage to Subscriber Address Phone Name Dates [facility] [phone] [facility] LAURYN [phone] [id number] [facility] [address] [facility] [address] [facility] [id number]
--- OUTSIDE RECORDS SUMMARY | 2022-04-01 17:05 | XMS_ITS | Encounter Summary ---
:1945 Author Care Team Providers Name Role Phone Jayla Murrieta MD Primary Care Provider [phone] [facility] 1st Floor OTHER [phone] Reason for Visit Acute Rounding Visit Assessment and Plan 1. Acute COVID-19 Pt was positive on 02/21/22 He received remdesivir and decadron monitor for sequelae isolation precautions resolved 2. Pneumonia treated with abx, steriods, and oxygen [...] 9. Insomnia mirtazapine 7.5 mg at qhs Discussion Note: None recorded.Patient educational handouts: No information available. Plan of Care Reminders Provider Appointments None recorded. ? ? Lab None recorded. ? ? Referral None recorded. ? ? Procedures None recorded. ? ? Surgeries None recorded. ? ? Imaging None recorded. ? ? Medications Notes: Meds reviewed, see MAR for comp lete list. Medications Administered None recorded. Vitals Weight Blood Pressure 150.8 lbs 140/60 mm[Hg] Results Lab Results None recorded. Allergies [...] you have a medical power of Y document review attorney? What was the date of your [...] Unknown. 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 Hypothyroidism; Type 2 Diabetes Mellitus; Insomnia History of Present Illness Note: <div>seen today for acute rounding visit, CAOx1 up in wheelchair, no resp distress noted or reported, lungs clear, he denies any discomfort or distress</div>Review of Systems: ROS as noted in the [...] alert, normal mood, normal affect. Orientation: to pers on. Memory: recent memory abnormal Head: Head: normocephalic, atrauma tic Eyes: Lids and Conjunctivae: non-i njected. Pupils: PERRLA. EOM: EOMI. Sclerae: non-icteric; glasse s ENMT: Hearing: no hearing loss. Or opharynx: moist mucous membranes; poor dentition, no dentures Neck: Neck: supple, no masses Lungs: Auscultation: good air movem ent; has crackles to left lower lobe at base Cardiovascular: Heart Auscultation: RRR, nor mal S1, normal S2 Abdomen: Bowel Sounds: normal, soft, no guarding, non-distended, no rebound tenderness Musculoskeletal:: Extremities: no cyanosis, no edema. Joints, Bones, and Muscles (normal) normal movement of all extremities Neurologic: Gait and Station: ; gait not seen today. Cranial Nerves: grossly intact Skin: Inspection and palpation: no rash; ecchymotic area to right lower arm
--- OUTSIDE RECORDS SUMMARY | 2022-04-01 17:05 | XMS_ITS ---
:1945 External Reference #:[id number] Author Care Team Providers Name Role Phone SANTA BRANDT MD Referring Provider [phone] MEAGAN LAWSON MD Primary Care Provider [phone] [facility] NEUR[facility] OTHER [phone] Allergies Code Code System Name Reaction Severity [...] 5 mg tablet Unknown ? Not available Invenergy Blood Glucose System strips Active ? Not available VSS Monitoringace Glucose Control Low solution Active ? Not [...]
--- OUTSIDE RECORDS SUMMARY | 2022-04-01 17:05 | XMS_ITS | Encounter Summary ---
:1945 Author Care Team Providers Name Role Phone Jayla Murrieta MD Primary Care Provider [phone] [facility] 1st Floor OTHER [phone] Reason for Visit Initial Intake Assessment and Plan 1. Acute COVID-19 Pt was positive on 02/21/22 He received remdesivir and decadon monitor for sequelae isolation precautions resolved 2. Pneumonia treated with abx, steriods, and oxygen in the hospital azithromycin 500 mg q 24 hours for 3 mor e days prednisone taper 3. Heart failure per d/c summary amlodipine 10 mg daily amiodarone 200 mg daily monitor 4. Hyperlipidemia atorvastatin 10 mg po qhs monitor 5. Atrial fibrillation clopidogrel 75 mg po daily metoprolol succinate 100 mg daily monitor 6. Infection of toenail toenail fungus clotrimazole 1 % topically bid until hea led 7. Hypothyroidism levothyroxine 25 mcg am monitor 8. Type 2 diabetes mellitus metformin 500 mg bid with meals 9. Insomnia unclear of why pt is on from summary mirtazapine 7.5 mg at qhs Discussion Note: [...] Medications Administered None recorded. Vitals Blood Pressure 153/61 mm[Hg] Results Lab Results None recorded. Allergies [...] you have a medical power of Y assistant district attorney? What was the date of your [...] Unknown. 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 Hypothyroidism; Type 2 Diabetes Mellitus; Insomnia History of Present Illness Note: <div>Pt seen for an initial admission. </div><div>
</div><div>PMH: DM, PAD, asthma, HTN, HLD, CAD, PVD, and paroxysmal afib. </div><div>
< /div><div>Pt presented to [facility] [place] [facility] with nausea and general weakness. His COVID 19 test was positive on 02/21. His CXR showed bilateral infiltrates. He received IV recommendations and his oxygen was weaned to 3 Liters NC. He received antibiotics, decadron 6 mg daily starting on 01/25 and completed remdesivir, and lasix. </div><div>
</div><div>He is sitting up in bed in NAD. He has no oxygen on with saturation of 96% RA. He has finished 100% of his breakfast this am. He has a few bruises on his right arm that he states are from bumping into a door knob at home without a fall. </div><div>
</div><div>He is able to state the year but not the date or month. States the month is February. He also states he does not want to finish thequestions for memory this am because he is forgetful already and therefore the [facility] exam is not completed. He is able to speak able code status clearly, who he lives with, tell time, and answer general questions enough to not be invoked today. </div><div>
</div><div>MOLST:Full code, okay to use dialysis, artificial nutrition or hydration</div>Review of Systems: ROS as noted in the HPI Review of Systems ? Notes: <div>All others reviewed and negative unless otherwise stated in the HPI.</div> Physical Exam ? General Adult Exam Reported By: Patient Constitutional: General Appearance: healthy- appearing, well-nourished, well-developed. Level of Dis tress: NAD. Ambulation: ambulation with walker Psychiatric: Insight: good judgement; nevaeh y vague and general to answer questions. Mental Status: ac tive and alert, normal mood, normal affect. Orientation: to plac e, to person; states it is October 2021. Memory: ; does not want to [facility] exam Head: Head: normocephalic, atrauma tic Eyes: Lids [...] S1, normal S2 Abdomen: Bowel Sounds: normal, no gua rding, no rebound tenderness, distended; pt has slightly d istended abd and reports it is from eating a large breakfast tod ay Musculoskeletal:: Extremities: no cyanosis, no edema. Joints, Bones, and Muscles (normal) normal movement of all extremities Neurologic: Gait and Station: ; gait not seen today. Cranial Nerves: grossly intact Skin: Inspection and palpation: no rash; ecchymotic area to right lower arm
[2022-04-01] MEDS: cefTRIAXone sodium 1 GM in 0.9 % Sodium Chloride 50 ML IV (17:16)
--- NOTE | 2022-04-01 17:20 | PC.NURSE ---
r 18g ac iv not working- removed. left 20g ac placed by this rn
[2022-04-01] MEDS: Azithromycin 500 MG in 0.9 % Sodium Chloride 250 ML 125 MG IV (17:43)
[2022-04-01 18:16] LABS: Procalcitonin 0.57 ng/mL
--- NOTE | 2022-04-01 18:37 | P.CONGS_ITS ---
History of Present Illness Consult details Consult date: 04/01/22 Requesting physician: Scott Silva Narrative: Asked by Dr. Silva to see this 76-year-old male patient tonight for abdominal pain and distension. Patient presents after a fall at home brought into the emergency department for further evaluation. Denies passing out felt dizzy prior to falling. He denies striking his head or passing out. He does not remember much else prior to his fall. He was noted to have abdominal distension here in the emergency department and felt to be tender in the left lower quadrant. There is a question of peritoneal signs as well. Patient currently denies any abdominal pain, nausea, vomiting, fever or chills. He does not remember his last bowel movement but reports that he is normally regular. Laboratories revealed a minimally elevated WBC but no avail a lactate level. A CT abdomen and pelvis was obtained. The results of the test were not available at time of this dictation however my reading of the exam, large collection of intra-abdominal fluid is identified with no evidence of free air. There are no distended loops of bowel to indicate bowel obstruction. There is diverticulosis and a large right renal cyst. Review of Systems Review of Systems: Yes Unobtainable due to mental condition Neurologic: Reports confusion Psychiatric: Psychiatric: Reports confusion COUNT INCLUDES THE [facility] Past Medical History Medical History Abscess of right foot Anxiety and depression Asthma Atrial fibrillation Atrial fibrillation with rapid ventricular response Avascular necrosis of bone of hip Cellulitis Coronary artery disease Diabetic foot ulcer Diabetic nephropathy Diabetic neuropathy Diverticular disease DMII (diabetes mellitus, type 2) Hypercholesterolemia Hypertension Open wound Osteomyelitis of foot Osteomyelitis of foot Osteomyelitis of toe PAD (peripheral artery disease) Preoperative cardiovascular examination Thrombocytopenia Tobacco abuse Tubular adenoma of colon Type 2 diabetes mellitus with diabetic foot infection Type 2 diabetes mellitus with hyperglycemia Type 2 diabetes mellitus with peripheral artery disease Vitamin D deficiency Family History Family History Father Diabetes Hypertension CVD (cardiovascular disease) Stroke Mother CVD (cardiovascular disease) Hypertension Cancer Sister No problems noted. Son Stroke Surgical History Surgical History Amputated toe of right foot Amputation finger History of cataract surgery History of surgery Social History Social History Household Members: Spouse and Children Household Members Other:: 4 Housing: House Do you presently have visiting nurse or other home services: Yes Alcohol intake: former Patient Tobacco Use Status: Former Tobacco user Quit Date: 4 months ago Tobacco use type: Cigarette Cigarettes Per Day: 7 Years Smoked: 09/2020 stopped e-Cigarette/Vaping Use: Never Used Second Hand Smoke Exposure: No Advance Directives Date on File: 07/24/20 service: No Current occupational status: retired Cognitive needs: No Hearing needs: No Vision needs: Yes Meds Allergies Allergy/AdvReac Type Severity Reaction Status Date / Time No Known Allergies Allergy Mild Verified 12/30/21 09:11 Active Medications: Current Medications Acetaminophen (Acetaminophen 325 Mg Tablet) 650 mg PO Q6H PRN PRN Reason: Pain, Mild (Pain Scale 1-3) Amiodarone HCl (Amiodarone Hcl 200 Mg Tablet) 200 mg PO DAILY [facility] Amlodipine Besylate (Amlodipine Besylate 10 Mg Tablet) 10 mg PO DAILY [facility]; Protocol Apixaban (Apixaban 5 Mg Tablet) 5 mg PO BID PRAMOD Atorvastatin Calcium (Atorvastatin Calcium 10 Mg Tablet) 10 mg PO BEDTIME [facility] Clopidogrel Bisulfate (Clopidogrel Bisulfate 75 Mg Tablet) 75 mg PO DAILY [facility] Dextrose (Dextrose 50 % 25 Gm/50 Ml Syringe) 25 gm IVPUSH Q15M PRN; Protocol PRN Reason: per Hypoglycemia Standing Ord. Docusate Sodium (Docusate Sodium 100 Mg Capsule) 100 mg PO DAILY PRN PRN Reason: Constipation Glucose (Glucose Gel 15 Gm Gel..Gram.) 15 gm PO Q15M PRN; Protocol PRN Reason: per Hypoglycemia Standing Ord. Sodium Chloride (Ns) 1,000 mls @ 100 mls/hr IVCONT .Q10H [facility] Ceftriaxone Sodium 1 gm/ (Sodium Chloride) 50 mls @ 100 mls/hr IV Q24H [facility] Last Infusion: 04/01/22 17:40 Dose: Infused Azithromycin 500 mg/ Sodium (Chloride) 250 mls @ 125 mls/hr IV Q24H [facility] Last Admin: 04/01/22 17:43 Dose: 125 mls/hr Insulin Human Lispro (Insulin Lispro 100 Unit/Ml 3 Ml Vial) 0 unit SUBCUT QIDACHS PRAMOD; Protocol Levothyroxine Sodium (Levothyroxine Sodium 25 Mcg Tablet) 25 mcg PO DAILY@0600 [facility] Metoprolol Succinate (Metoprolol Succinate Er 50 Mg Tab.Er.24h) 50 mg PO DAILY [facility]; Protocol Mirtazapine (Mirtazapine 7.5 Mg Tablet) 7.5 mg PO BEDTIME [facility] Ondansetron HCl (Ondansetron Hcl 4 Mg/2 Ml Vial) 4 mg IVPUSH Q8H PRN PRN Reason: Nausea and Vomiting Sodium Chloride (0.9 % Sodium Chloride Flush 3 Ml Syringe) 3 ml IVFLUSH QSHIFT [facility] Timolol Maleate (Timolol Maleate 0.5 % Oph Srping 5 Ml Drbtl) 1 drop EYE-LEFT DAILY [facility] Vitamin D (Cholecalciferol (Vitamin D3) 25 Mcg Tablet) 25 mcg PO DAILY [facility] Home Medications Medication Instructions Recorded Confirmed Last Taken Type cholecalciferol (vitamin D3) 25 25 mcg PO DAILY 04/14/20 04/01/22 02/21/22 History mcg (1,000 unit) capsule timolol maleate 0.5 % eye drops 1 drp ophthalmic-Left DAILY 08/21/20 04/01/22 02/21/22 History levothyroxine 25 mcg tablet 25 mcg PO DAILY@0600 02/21/22 04/01/22 02/20/22 History (Synthroid) Physical Exam Vital Signs: Vital Signs: Last Vital Signs Temp 98.3 F 04/01/22 10:35 Pulse 74 04/01/22 13:49 Resp 16 04/01/22 13:49 BP 130/67 04/01/22 13:49 O2 Del Method 04/01/22 13:49 BMI result Body Mass Index 25.1 Const: General: no acute distress, awake and confusion Nutritional Appearance: well nourished Orientation/consciousness: confusion HEENT: Head: Yes normocephalic and Yes atraumatic Resp: Other: Breathing comfortably on room air, no respiratory distress GI: Other: softly distended without tympany to percussion. Decreased bowel sounds. Mild tenderness to deep palpation in the left lower quadrant without rebound, guarding or rigidity. Skin: Other: Warm, dry, no rash Neuro: General: confusion Results Labs Result diagrams: 04/02/22 06:19 04/02/22 06:19 Labs: Abnormal lab results 04/01/22 04/01/22 04/01/22 Range/Units 11:49 12:02 12:03 WBC 13.8 H (4.8-10.8) X10*3/uL RBC 4.16 L D (4.60-5.80) X10*6/uL Hgb 12.4 L D (14.0-18.0) g/dl Hct 38.2 L D (42.0-52.0) % RDW 22.5 H (11.0-16.0) % Immature Gran % (Auto) 0.8 H (0.0-0.4) % Neut % (Auto) 86.4 H (45-73) % Lymph % (Auto) 5.2 L (20-40) % Lymph # (Auto) 0.7 L (1.2-4.9) X10*3/uL Abs Immat Gran (auto) 0.11 H (0.00-0.03) X10*3/uL Absolute Neuts (auto) 12.0 H (2.0-8.3) x10*3/uL PT 27.8 H (10.0-13.1) SEC INR 2.3 H (0.9-1.1) Carbon Dioxide (22-29) mmol/L BUN (9-16) mg/dL Creatinine (0.5-1.4) mg/dL Random Glucose (60-115) mg/dL Lactic Acid 4.2 H* (0.5-2.0) mmol/L Lactic Acid F/U @ 2Hr (0.5-2.0) mmol/L Calcium (8.4-10.2) mg/dL AST (5-37) U/L ALT (0-40) U/L Alkaline Phosphatase (39-117) U/L Total Protein (6.5-8.0) g/dL Albumin (3.5-5.0) g/dL 04/01/22 04/01/22 Range/Units 12:41 14:25 WBC (4.8-10.8) X10*3/uL RBC (4.60-5.80) X10*6/uL Hgb (14.0-18.0) g/dl Hct (42.0-52.0) % RDW (11.0-16.0) % Immature Gran % (Auto) (0.0-0.4) % Neut % (Auto) (45-73) % Lymph % (Auto) (20-40) % Lymph # (Auto) (1.2-4.9) X10*3/uL Abs Immat Gran (auto) (0.00-0.03) X10*3/uL Absolute Neuts (auto) (2.0-8.3) x10*3/uL PT (10.0-13.1) SEC INR (0.9-1.1) Carbon Dioxide 19 L (22-29) mmol/L BUN 40 H (9-16) mg/dL Creatinine 1.96 H (0.5-1.4) mg/dL Random Glucose 118 H (60-115) mg/dL Lactic Acid (0.5-2.0) mmol/L Lactic Acid F/U @ 2Hr 2.3 H* (0.5-2.0) mmol/L Calcium 8.1 L D (8.4-10.2) mg/dL AST 78 H (5-37) U/L ALT 42 H (0-40) U/L Alkaline Phosphatase 221 H (39-117) U/L Total Protein 5.4 L (6.5-8.0) g/dL Albumin 2.5 L (3.5-5.0) g/dL Short CBC 04/01/22 Range/Units 12:03 WBC 13.8 H (4.8-10.8) X10*3/uL Hgb 12.4 L D (14.0-18.0) g/dl Hct 38.2 L D (42.0-52.0) % Plt Count 356 D (160-400) X10*3/uL BMP 04/01/22 12:41 Sodium 137 Potassium 4.9 D Chloride 107 Carbon Dioxide 19 L BUN 40 H Creatinine 1.96 H Calcium 8.1 L D Liver Function 04/01/22 Range/Units 12:41 Total Bilirubin 1.0 (0.0-1.0) mg/dL AST 78 H (5-37) U/L ALT 42 H (0-40) U/L Alkaline Phosphatase 221 H (39-117) U/L Albumin 2.5 L (3.5-5.0) g/dL All other labs normal. Assessment and Plan (1) Left lower quadrant abdominal pain: Status: Acute Plan 76-year-old male patient with history of peripheral vascular disease now presenting with abdominal distension found on examination to be markedly distended with some tenderness in the left lower quadrant. No peritoneal signs were evident on my examination. Review of CT abdomen and pelvis does reveal large collection of intra-abdominal fluid. I am unable to identify free air to indicate bowel perforation. Noncontrast study, hemoperitoneum possible after fall although vital signs are stable. Will await final CT read. Time Spent With Patient Time: Total time managing care of this patient today ____ minutes. Procedures Date of Service Date of Service: 04/01/22
[2022-04-01] MEDS: 0.9 % Sodium Chloride 1,000 ML 100 ML IVCONT (18:46)
[2022-04-01 19:39] LABS: Lactate Dehydrogenase 318 U/L (118-273)
--- NOTE | 2022-04-01 19:48 | PC.NURSE ---
Assumed care of pt. at 1900. Pt. resting in bed at that time. Lab called with a critical value, lactic 3.0. notified.
[2022-04-01] MEDS: Albumin Human 25 % 100 ML IV ×3 (19:57→23:24)
[2022-04-01 20:50] LABS: Glucose, Whole Blood 123 mg/dL (60-115)
[2022-04-01] MEDS: Mirtazapine 7.5 MG TABLET PO (21:13)
[2022-04-01] MEDS: Atorvastatin Calcium 10 MG TABLET PO (21:13)
[2022-04-01] MEDS: Apixaban 5 MG TABLET PO (21:13)
--- NOTE | 2022-04-01 21:19 | PC.NURSE ---
Pt. resting in bed awaiting transport upstairs. Albumin running slowly as we had some positional issues with the IV and the arm. Running at 100mL/hour. Report called to mu Crouch RN on [facility] [place].
[2022-04-01 21:45] VITALS: BMI 25.9
[2022-04-01 22:01] LABS: Glucose, Whole Blood 109 mg/dL (60-115)
[2022-04-01] MEDS: 0.9 % Sodium Chloride Flush 3 ML SYRINGE IVFLUSH (23:24)
[2022-04-02] VITALS (9 sets, daily range): BP systolic 128–153; BP diastolic 62–73; PULSE 71–87; RESP 17–20; TEMP 35.6–36.8; O2SAT 90–98
[2022-04-02] MEDS: Levothyroxine Sodium 25 MCG TABLET PO (06:07)
[2022-04-02] MEDS: 0.9 % Sodium Chloride 1,000 ML 100 ML IVCONT (06:08)
[2022-04-02 07:03] LABS: Hematocrit 30.7 % (42.0-52.0); Hemoglobin 9.7 g/dl (14.0-18.0); Mean Corpuscular HGB Conc 31.6 g/dl (31.0-36.0); Mean Corpuscular Hemoglobin 29.2 pg (27.0-33.0); Mean Corpuscular Volume 92.5 fL (80.0-98.0); Mean Platelet Volume 12.3 fL (9.4-12.4); Platelet Count 267 X10*3/uL (160-400); Red Blood Count 3.32 X10*6/uL (4.60-5.80); Red Cell Distribution Width 22.4 % (11.0-16.0); White Blood Count 11.6 X10*3/uL (4.8-10.8)
--- NOTE | 2022-04-02 07:05 | PM.GICN ---
History of Present Illness Data of Consult Service Date: 04/02/22 Requesting physician: Scott Silva Primary Care Provider: Jayla Murrieta MD HPI Reason for consult: ascites 77-year-old male with a PMH significant for diabetes with diabetic foot ulcers and infections in the past, left toe amputations, HTN, history of Afib on Eliquis, HLD, and history of peripheral vascular disease who am seeing for assessment for ascites patient was admitted initially for weakenss and frailty with failure to thrive. He has no recollection of what happened the last several hours but now feels more alert and brighter. He does admit to noting moreabdo distention recently, and some sob but no cough, sputum, chest pain. He denies abdominal pain, no nausea, or vomtiing, denies melena or rectal bleeding. He has a good appetite and feels hungry He does admit to prior hx of heavy alcohol use but does still drink alcohol but much less on daily basis. CXR with possible pneumonia, and CT head with chronic small vessel ischemic disease. Ct abdo wth moderate ascites. Review of Systems Review of Systems: Constitutional : No Weight loss, No Fever, No Chills ENT/Mouth : No sore throat, No Rhinorrhea Eyes: No Swelling, No Redness Cardiovascular : No Chest Pain, No SOB, No Edema Respiratory : No Cough, No Sputum, No Wheezing Gastrointestinal : see HPI Genitourinary : NO Dysuria, No Urinary Frequency, No Hematuria, No Urgency Musculoskeletal : No joint pain, No Myalgias, No Joint Swelling Skin : No Skin Lesions, No rash Neuro : + Weakness, No Numbness, No Dizziness, No Headache Psych : No Anxiety/Panic, No Depression Heme/Lymph: No Bruising, No Lymphadenopathy Endocrine : No Polyuria, No Polydipsia All other systems reviewed and are negative. ON LICENSE OF [facility] Past Medical History Medical History Abscess of right foot Anxiety and depression Asthma Atrial fibrillation Atrial fibrillation with rapid ventricular response Avascular necrosis of bone of hip Cellulitis Coronary artery disease Diabetic foot ulcer Diabetic nephropathy Diabetic neuropathy Diverticular disease DMII (diabetes mellitus, type 2) Hypercholesterolemia Hypertension Open wound Osteomyelitis of foot Osteomyelitis of foot Osteomyelitis of toe PAD (peripheral artery disease) Preoperative cardiovascular examination Thrombocytopenia Tobacco abuse Tubular adenoma of colon Type 2 diabetes mellitus with diabetic foot infection Type 2 diabetes mellitus with hyperglycemia Type 2 diabetes mellitus with peripheral artery disease Vitamin D deficiency Family History Family History Father Diabetes Hypertension CVD (cardiovascular disease) Stroke Mother CVD (cardiovascular disease) Hypertension Cancer Sister No problems noted. Son Stroke Surgical History Surgical History Amputated toe of right foot Amputation finger History of cataract surgery History of surgery Social History Social History Household Members: Spouse and Children Household Members Other:: 4 Housing: House Do you presently have visiting nurse or other home services: Yes Alcohol intake: former Patient Tobacco Use Status: Former Tobacco user Quit Date: 4 months ago Tobacco use type: Cigarette Cigarettes Per Day: 7 Years Smoked: 09/2020 stopped e-Cigarette/Vaping Use: Never Used Second Hand Smoke Exposure: No Advance Directives Date on File: 07/24/20 service: No Current occupational status: retired Cognitive needs: No Hearing needs: No Vision needs: Yes Meds Allergies Allergy/AdvReac Type Severity Reaction Status Date / Time No Known Allergies Allergy Mild Verified 12/30/21 09:11 Active Medications: Current Medications Acetaminophen (Acetaminophen 325 Mg Tablet) 650 mg PO Q6H PRN PRN Reason: Pain, Mild (Pain Scale 1-3) Amiodarone HCl (Amiodarone Hcl 200 Mg Tablet) 200 mg PO DAILY [facility] Amlodipine Besylate (Amlodipine Besylate 10 Mg Tablet) 10 mg PO DAILY [facility]; Protocol Apixaban (Apixaban 5 Mg Tablet) 5 mg PO BID [facility] Last Admin: 04/01/22 21:13 Dose: 5 mg Atorvastatin Calcium (Atorvastatin Calcium 10 Mg Tablet) 10 mg PO BEDTIME [facility] Last Admin: 04/01/22 21:13 Dose: 10 mg Clopidogrel Bisulfate (Clopidogrel Bisulfate 75 Mg Tablet) 75 mg PO DAILY [facility] Dextrose (Dextrose 50 % 25 Gm/50 Ml Syringe) 25 gm IVPUSH Q15M PRN; Protocol PRN Reason: per Hypoglycemia Standing Ord. Docusate Sodium (Docusate Sodium 100 Mg Capsule) 100 mg PO DAILY PRN PRN Reason: Constipation Glucose (Glucose Gel 15 Gm Gel..Gram.) 15 gm PO Q15M PRN; Protocol PRN Reason: per Hypoglycemia Standing Ord. Sodium Chloride (Ns) 1,000 mls @ 100 mls/hr IVCONT .Q10H [facility] Last Admin: 04/02/22 06:08 Dose: 100 mls/hr Ceftriaxone Sodium 1 gm/ (Sodium Chloride) 50 mls @ 100 mls/hr IV Q24H [facility] Last Infusion: 04/01/22 17:40 Dose: Infused Azithromycin 500 mg/ Sodium (Chloride) 250 mls @ 125 mls/hr IV Q24H [facility] Last Infusion: 04/01/22 21:49 Dose: Infused Insulin Human Lispro (Insulin Lispro 100 Unit/Ml 3 Ml Vial) 0 unit SUBCUT QIDACHS [facility]; Protocol Last Admin: 04/01/22 21:14 Dose: Not Given Levothyroxine Sodium (Levothyroxine Sodium 25 Mcg Tablet) 25 mcg PO DAILY@0600 [facility] Last Admin: 04/02/22 06:07 Dose: 25 mcg Metoprolol Succinate (Metoprolol Succinate Er 50 Mg Tab.Er.24h) 50 mg PO DAILY [facility]; Protocol Mirtazapine (Mirtazapine 7.5 Mg Tablet) 7.5 mg PO BEDTIME [facility] Last Admin: 04/01/22 21:13 Dose: 7.5 mg Ondansetron HCl (Ondansetron Hcl 4 Mg/2 Ml Vial) 4 mg IVPUSH Q8H PRN PRN Reason: Nausea and Vomiting Sodium Chloride (0.9 % Sodium Chloride Flush 3 Ml Syringe) 3 ml IVFLUSH QSHIFT [facility] Last Admin: 04/01/22 23:24 Dose: 3 ml Timolol Maleate (Timolol Maleate 0.5 % Oph Spring 5 Ml Drbtl) 1 drop EYE-LEFT DAILY [facility] Vitamin D (Cholecalciferol (Vitamin D3) 25 Mcg Tablet) 25 mcg PO DAILY [facility] Home Medications Medication Instructions Recorded Confirmed Last Taken Type cholecalciferol (vitamin D3) 25 25 mcg PO DAILY 04/14/20 04/01/22 02/21/22 History mcg (1,000 unit) capsule timolol maleate 0.5 % eye drops 1 drp ophthalmic-Left DAILY 08/21/20 04/01/22 02/21/22 History levothyroxine 25 mcg tablet 25 mcg PO DAILY@0600 02/21/22 04/01/22 02/20/22 History (Synthroid) Physical Exam Vital Signs: Vital Signs: Last Vital Signs Temp 96.9 F 04/02/22 03:15 Pulse 79 04/02/22 03:15 Resp 17 04/02/22 03:15 BP 133/63 04/02/22 03:15 Pulse Ox 94 04/02/22 04:26 O2 Del Method 04/02/22 04:26 O2 Flow Rate 2 04/02/22 04:26 BMI result Body Mass Index 25.9 EXAM: GENERAL: The patient is frail, slightly SOB VITAL SIGNS:see workflow HEENT: Nonicteric sclerae, PERRLA, EOMI. Oropharynx clear. Moist mucous membranes. Conjunctivae appear well perfused. No thyroid mass. CHEST: Chest wall is nontender. HEART: Regular rate and rhythm without murmurs. LUNGS: Clear to auscultation bilaterally. ABDOMEN: tense abdomen, shifting dullness,, positive bowel sounds, nontender, no organomegaly.no flank tenderness SKIN: No rash, bruises on arms NEUROLOGIC: Cranial nerves II-XII intact without motor/sensory deficit. mild tremor psych; AAO x 3 Results Labs CBC & Chem 7: 04/02/22 06:19 04/02/22 06:19 Labs: Short CBC 04/01/22 04/02/22 Range/Units 12:03 06:19 WBC 13.8 H 11.6 H (4.8-10.8) X10*3/uL Hgb 12.4 L D 9.7 L D (14.0-18.0) g/dl Hct 38.2 L D 30.7 L (42.0-52.0) % Plt Count 356 D 267 (160-400) X10*3/uL BMP 04/01/22 12:41 Sodium 137 Potassium 4.9 D Chloride 107 Carbon Dioxide 19 L BUN 40 H Creatinine 1.96 H Calcium 8.1 L D Liver Function 04/01/22 Range/Units 12:41 Total Bilirubin 1.0 (0.0-1.0) mg/dL AST 78 H (5-37) U/L ALT 42 H (0-40) U/L Alkaline Phosphatase 221 H (39-117) U/L Albumin 2.5 L (3.5-5.0) g/dL Assessment and Plan (1) Abdominal ascites: Status: Acute Plan 1/ Ascites maybe due to liver disease, renal disease (protein on UA) or cardiac etiology. His plts are normal which doesnlt fully support significant portal hypertension. His memory issues could also be due to a combination of hepatic encephalopathy and small vessel cerebral disease. 2/ He has CHANTE limting diuretic use PLAN: 1/ agree with tapping acites and diagnostic labs to determine the SAAG etc 2/ add BNP 3/ urine prot:creat ratio check for nephrotic syndrome 4/ therapeutic tap at time of diagnostic tap 5/ Can trial low dose diuretics once renal fn improves, can use albumin 25% 1g/kg in divided doses if worsening renal function 6/ hold metformin, nsaids and simin-inhibitors Time Spent With Patient Time: Total time managing care of this patient today ____ minutes. Procedures Date of Service Date of Service: 04/02/22
[2022-04-02 07:16] LABS: Anion Gap 18 (12-20); Blood Urea Nitrogen 35 mg/dL (9-16); Calcium 8.1 mg/dL (8.4-10.2); Carbon Dioxide 18 mmol/L (22-29); Chloride 107 mmol/L (96-108); Creatinine Clr Calc Pharmacy 34.6; Estimated Glomerular Filt Rate 38; Glucose Random 135 mg/dL (60-115); Potassium 4.1 mmol/L (3.3-5.1); Sodium 139 mmol/L (135-145)
[2022-04-02 07:24] LABS: Glucose Random 137 mg/dL (60-115)
[2022-04-02 08:28] LABS: Glucose, Whole Blood 131 mg/dL (60-115)
[2022-04-02] MEDS: Metoprolol Succinate ER 50 MG TAB.ER.24H PO (09:19)
[2022-04-02] MEDS: amLODIPine Besylate 10 MG TABLET PO (09:19)
[2022-04-02] MEDS: Cholecalciferol (Vitamin D3) 25 MCG TABLET PO (09:19)
[2022-04-02] MEDS: Amiodarone HCL 200 MG TABLET PO (09:19)
[2022-04-02] MEDS: Lactulose 20 GM/30 ML SOLUTION PO ×2 (09:19→20:21)
[2022-04-02] MEDS: timoloL maleate 0.5 % Oph Sol 5 ML DRBTL 1 DROP EYE-LEFT (09:22)
[2022-04-02 09:23] LABS: B Type Natriuretic Peptide 474 pg/mL (<100)
[2022-04-02 09:35] LABS: HBS Num1 0.41 mIU/mL (0-7.99); HBc Num1 0.15 S/CO (0.00-0.79); HBsAGNum1 0.33 S/CO (0.00-0.99); Hepatitis A Antibody IgM 0.14 Index (0-0.79); Hepatitis B Core Antibody Nonreactive (Nonreactive); Hepatitis B Surface Antigen Negative (Negative); ~HepC Num1 0.07 S/CO (0.00-0.79); ~Hepatitis A Antibody IgM Nonreactive (Nonreactive); ~Hepatitis B Surface Antibody NONREACTIVE (Nonreactive); ~Hepatitis C Antibody Nonreactive (Nonreactive)
--- NOTE | 2022-04-02 10:14 | MHC.CM.PN ---
IMM DELIVERED, WHITE COPY TO BE MAILED TO /HCP, YELLOW COPY TO CHART. LIVES WITH AND DISABLE ADULT SON. USES W/C AND WALKER AT [facility]. ACTIVE WITH [facility] FOR SN PT AND OT. JUST GOT OUT OF [facility] FOR STR. WILL ACCEPT A RETURN THERE IF RECOMMENDED. REFERRAL SENT. +HCP ON FILE. UNVACCINATED FOR COVID. PCP DR. LAWSON DP: PLAN TO BE DETERMINED, PROBABLE BLS TRANSPORT. CM WILL CONTINUE TO FOLLOW.
[2022-04-02 11:49] LABS: Glucose, Whole Blood 138 mg/dL (60-115)
--- NOTE | 2022-04-02 14:39 | HO.PM.IMPN ---
Subjective Subjective Date of Service: 04/02/22 Interval History: abd discomfort mild Review of Systems Denies any nausea vomiting or diarrhea. Mild hypothermia No cough or phlegm or any urinary complaints. Physical Exam Vital Signs: Vital Signs: Last Vital Signs Temp 96.0 F L 04/02/22 11:48 Pulse 71 04/02/22 11:48 Resp 18 04/02/22 11:48 BP 153/73 H 04/02/22 11:48 Pulse Ox 96 04/02/22 11:48 O2 Del Method 04/02/22 11:48 O2 Flow Rate 3 04/02/22 11:48 BMI result Body Mass Index 25.9 Appearance: Alert.? Oriented X3.? not in distress.? cvs: rrr, [id number] , no murmur res: clear to auscultation ,no rhonchii or wheezing abd: no rebound or guarding ,mild abd pain/left side lower, bs present. ext pulses present , no cyanosis . neuro: axo3 , nonfocal. Objective Data Active Medications Acetaminophen (Acetaminophen 325 Mg Tablet) 650 mg PO Q6H PRN PRN Reason: Pain, Mild (Pain Scale 1-3) Albuterol/Ipratropium (Albuterol/Iprat 2.5/0.5mg 3 Ml Ampul.Neb) 3 ml INHALE RQ4H WHILE AWAKE [facility] Amiodarone HCl (Amiodarone Hcl 200 Mg Tablet) 200 mg PO DAILY [facility] Last Admin: 04/02/22 09:19 Dose: 200 mg Documented By: OWEN Amlodipine Besylate (Amlodipine Besylate 10 Mg Tablet) 10 mg PO DAILY [facility]; Protocol Last Admin: 04/02/22 09:19 Dose: 10 mg Documented By: OWEN Apixaban (Apixaban 5 Mg Tablet) 5 mg PO BID [facility] Last Admin: 04/01/22 21:13 Dose: 5 mg Documented By: SINA Atorvastatin Calcium (Atorvastatin Calcium 10 Mg Tablet) 10 mg PO BEDTIME [facility] Last Admin: 04/01/22 21:13 Dose: 10 mg Documented By: SINA Clopidogrel Bisulfate (Clopidogrel Bisulfate 75 Mg Tablet) 75 mg PO DAILY [facility] Dextrose (Dextrose 50 % 25 Gm/50 Ml Syringe) 25 gm IVPUSH Q15M PRN; Protocol PRN Reason: per Hypoglycemia Standing Ord. Docusate Sodium (Docusate Sodium 100 Mg Capsule) 100 mg PO DAILY PRN PRN Reason: Constipation Glucose (Glucose Gel 15 Gm Gel..Gram.) 15 gm PO Q15M PRN; Protocol PRN Reason: per Hypoglycemia Standing Ord. Ceftriaxone Sodium 1 gm/ (Sodium Chloride) 50 mls @ 100 mls/hr IV Q24H [facility] Last Infusion: 04/01/22 17:40 Dose: 0 mls/hr Documented By: CHANTEL Azithromycin 500 mg/ Sodium (Chloride) 250 mls @ 125 mls/hr IV Q24H [facility] Last Infusion: 04/01/22 21:49 Dose: 0 mls/hr Documented By: SLIM Albumin Human (Kedbumin 25 %) 100 mls @ 100 mls/hr IV Q6H [facility] Stop: 04/03/22 09:44 Insulin Human Lispro (Insulin Lispro 100 Unit/Ml 3 Ml Vial) 0 unit SUBCUT QIDACHS [facility]; Protocol Last Admin: 04/02/22 13:23 Dose: Not Given Documented By: OWEN Non-Admin Reason: No Insulin Coverage Lactulose (Lactulose 20 Gm/30 Ml Solution) 20 gm PO BID [facility] Last Admin: 04/02/22 09:19 Dose: 20 gm Documented By: OWEN Levothyroxine Sodium (Levothyroxine Sodium 25 Mcg Tablet) 25 mcg PO DAILY@0600 [facility] Last Admin: 04/02/22 06:07 Dose: 25 mcg Documented By: SLIM Metoprolol Succinate (Metoprolol Succinate Er 50 Mg Tab.Er.24h) 50 mg PO DAILY [facility]; Protocol Last Admin: 04/02/22 09:19 Dose: 50 mg Documented By: OWEN Mirtazapine (Mirtazapine 7.5 Mg Tablet) 7.5 mg PO BEDTIME [facility] Last Admin: 04/01/22 21:13 Dose: 7.5 mg Documented By: SINA Ondansetron HCl (Ondansetron Hcl 4 Mg/2 Ml Vial) 4 mg IVPUSH Q8H PRN PRN Reason: Nausea and Vomiting Sodium Chloride (0.9 % Sodium Chloride Flush 3 Ml Syringe) 3 ml IVFLUSH QSHIFT [facility] Last Admin: 04/02/22 08:06 Dose: Not Given Documented By: OWEN Non-Admin Reason: IV Running Timolol Maleate (Timolol Maleate 0.5 % Oph Spring 5 Ml Drbtl) 1 drop EYE-LEFT DAILY [facility] Last Admin: 04/02/22 09:22 Dose: 1 drop Documented By: OWEN Vitamin D (Cholecalciferol (Vitamin D3) 25 Mcg Tablet) 25 mcg PO DAILY [facility] Last Admin: 04/02/22 09:19 Dose: 25 mcg Documented By: OWEN Labs CBC & Chem 7: 04/02/22 06:19 04/02/22 06:19 Labs: Laboratory Results - last 24 hr 04/01/22 04/01/22 04/01/22 12:41 12:41 14:10 MCV MCH MCHC RDW Plt Count MPV Absolute Nucleated RBC Nucleated RBC % (auto) Anion Gap Estim Creat Clear Calc Estimated GFR POC Glucose Random Glucose Lactic Acid F/U @ 2Hr Lactic Acid F/U @ 4Hr Calcium Lactate Dehydrogenase 318 H Troponin I High Sens 11.5 B-Natriuretic Peptide Procalcitonin 0.57 Hepatitis A IgM Ab Hep Bs Antigen Hep Bs Antibody Hep B Core Total Ab Hepatitis C Ab (EIA) 04/01/22 04/01/22 04/01/22 14:25 18:41 20:46 MCV MCH MCHC RDW Plt Count MPV Absolute Nucleated RBC Nucleated RBC % (auto) Anion Gap Estim Creat Clear Calc Estimated GFR POC Glucose 123 H Random Glucose Lactic Acid F/U @ 2Hr 2.3 H* Lactic Acid F/U @ 4Hr 3.0 H* Calcium Lactate Dehydrogenase Troponin I High Sens B-Natriuretic Peptide Procalcitonin Hepatitis A IgM Ab Hep Bs Antigen Hep Bs Antibody Hep B Core Total Ab Hepatitis C Ab (EIA) 04/01/22 04/02/22 04/02/22 21:58 06:19 06:19 MCV 92.5 MCH 29.2 MCHC 31.6 RDW 22.4 H Plt Count 267 MPV 12.3 Absolute Nucleated RBC 0.000 Nucleated RBC % (auto) 0.0 Anion Gap 18 Estim Creat Clear Calc 34.6 Estimated GFR 38 POC Glucose 109 Random Glucose 135 H Lactic Acid F/U @ 2Hr Lactic Acid F/U @ 4Hr Calcium 8.1 L Lactate Dehydrogenase Troponin I High Sens B-Natriuretic Peptide Procalcitonin Hepatitis A IgM Ab Hep Bs Antigen Hep Bs Antibody Hep B Core Total Ab Hepatitis C Ab (EIA) 04/02/22 04/02/22 04/02/22 06:19 06:19 06:19 MCV MCH MCHC RDW Plt Count MPV Absolute Nucleated RBC Nucleated RBC % (auto) Anion Gap Estim Creat Clear Calc Estimated GFR POC Glucose Random Glucose 137 H Lactic Acid F/U @ 2Hr Lactic Acid F/U @ 4Hr Calcium Lactate Dehydrogenase Troponin I High Sens B-Natriuretic Peptide 474 H Procalcitonin Hepatitis A IgM Ab Nonreactive Hep Bs Antigen Negative Hep Bs Antibody NONREACTIVE Hep B Core Total Ab Nonreactive Hepatitis C Ab (EIA) Nonreactive 04/02/22 04/02/22 07:44 11:24 MCV MCH MCHC RDW Plt Count MPV Absolute Nucleated RBC Nucleated RBC % (auto) Anion Gap Estim Creat Clear Calc Estimated GFR POC Glucose 131 H 138 H Random Glucose Lactic Acid F/U @ 2Hr Lactic Acid F/U @ 4Hr Calcium Lactate Dehydrogenase Troponin I High Sens B-Natriuretic Peptide Procalcitonin Hepatitis A IgM Ab Hep Bs Antigen Hep Bs Antibody Hep B Core Total Ab Hepatitis C Ab (EIA) Microbiology Microbiology Results: Microbiology 04/01/22 12:27 Blood Culture - Preliminary Blood - Venous No growth after 24 hours. 04/01/22 12:27 Blood Culture - Preliminary Blood - Venous No growth after 24 hours. Assessment and Plan (1) Abdominal ascites: Status: Acute (2) Left lower quadrant abdominal pain: Status: Acute (3) Pneumonia: Status: Acute (4) Dehydration: Status: Acute (5) CHANTE (acute kidney injury): Status: Acute (6) Abdominal ascites: Status: Acute (7) CKD (chronic kidney disease): Status: Acute Plan 76-year-old male with a PMH significant for diabetes with diabetic foot ulcers and infections in the past, left toe amputations, HTN, history of Afib on Eliquis, HLD, and history of peripheral vascular disease who presents to the ED from home via ambulance due to generalized weakness, fall, and confusion. Pt will be admitted for treatment for dehydration, CHANTE, and possible pneumonia. # question of community acquired pneumonia -- leukocytosis improving, no sepsis acute Lactic acidosis probably related to metformin-seems improvin,will stop trendin, CHANTE due to poor oral intake. -- CXR opacities look similar to previous x-rays, but increased superimposed infiltrate cannot be ruled out -- ceftriaxone, azithromycin day2 -- blood cultures pending # CHANTE on possible ckd 3. -- likely secondary to dehydration and decreased PO intake dc IVF due to asctis -- bladder scan to r/o postrenal source -- monitor labs daily # abdominal [id number]/ascitis -- CT of abdomen -- surgery consult dm diet Ascitis : multifactorial need further workup ua,electrolytes ascitis ?liver dis added albumin need hold plavix/eliquis. # diabetes -- hold metformin -- ssi -- diabetic diet once off NPO # paroxysmal AFib hold Eliquis,plavix -need ascitis tap and cont metoprolol # history of PAD - continue Plavix # hypothyroidism - continue levothyroxine Full code inpatient need :community acquired pneumonia,ascitis , Time Spent With Patient Time: Total time managing care of this patient today ____ minutes. Quality Stroke Does the patient have a stroke diagnosis?: No VTE Prior VTE?: No VTE Risk Level:: Medical - moderate - high VTE Device Contraindication: Treatment Not Indicated VTE Drug Contraindication: N/A - Med Ordered
[2022-04-02 15:58] LABS: Glucose, Whole Blood 152 mg/dL (60-115)
[2022-04-02] MEDS: Albuterol/Iprat 2.5/0.5MG 3 ML AMPUL.NEB INHALE ×2 (16:03→20:48)
[2022-04-02] MEDS: Albumin Human 25 % 100 ML IV ×2 (16:27→20:21)
[2022-04-02] MEDS: 0.9 % Sodium Chloride Flush 3 ML SYRINGE IVFLUSH ×2 (16:33→20:21)
[2022-04-02] MEDS: Insulin Lispro 100 UNIT/ML 3 ML VIAL SUBCUT (17:10)
[2022-04-02] MEDS: cefTRIAXone sodium 1 GM in 0.9 % Sodium Chloride 50 ML IV (17:53)
[2022-04-02] MEDS: Azithromycin 500 MG in 0.9 % Sodium Chloride 250 ML 125 MG IV (18:34)
[2022-04-02] MEDS: Atorvastatin Calcium 10 MG TABLET PO (20:21)
[2022-04-02] MEDS: Mirtazapine 7.5 MG TABLET PO (20:21)
[2022-04-02 20:24] LABS: Glucose, Whole Blood 103 mg/dL (60-115)
[2022-04-02 23:03] LABS: Appearance Urine Clear; Color Urine Yellow; Glucose Urine UA Negative (Negative); Leukocyte Esterase Urine Negative (Negative); Nitrite Urine Negative (Negative); PH 5.5 (5.0-9.0); UMIC TRIGGER UA YES; Urine Blood Negative (Negative); Urine Ketones Negative (Negative); Urine Protein 100 (2+) mg/dL (Neg-Trace)
[2022-04-02 23:36] LABS: Bacteria Urine None Seen (None Seen); Other Crystals Urine Present; RBC Urine >20 /HPF (0-2); Squamous Epithelial Cell Urine 0-2 /HPF (0-2); WBC Urine 0-5 /HPF (0-5)
[2022-04-03] VITALS (7 sets, daily range): BP systolic 117–154; BP diastolic 57–89; PULSE 64–89; RESP 12–22; TEMP 35.6–37.1; O2SAT 88–97
[2022-04-03] MEDS: Albumin Human 25 % 100 ML IV ×2 (02:50→09:02)
--- NOTE | 2022-04-03 03:33 | CONS_ITS ---
DATE OF SERVICE: 04/02/2022 REASON FOR CONSULTATION: The patient is a 77-year-old gentleman, I was asked to see because of acute renal failure as reflected by BUN and creatinine today of 35 and 1.73, whereas his creatinine earlier in March was 1.3. It looks like his baseline creatinine is around 1.2 to 1.3. HISTORY OF PRESENT ILLNESS: In summary, the patient is a 77-year-old gentleman with a history of multiple chronic medical problems including diabetes with diabetic foot ulcer infection in the past and toe amputations, hypertension, atrial fibrillation maintained on Eliquis, hyperlipidemia, peripheral vascular disease, who presented to the emergency room with generalized weakness and unwitnessed fall. Patient is a poor historian and information is obtained from electronic medical record. There was concern that he may have a pneumonia as well as perhaps some underlying dementia. As part of his workup, he had labs done, which again showed the acute kidney injury. The creatinine is 1.96, up from his baseline 1.3, and there was concern about pneumonia and dehydration. On his progress evaluation, he had a CAT scan, which showed large amount of ascites and he was having a GI evaluation for that. Overall, patient tells me he is feeling okay at present, but again he is confused. PAST MEDICAL HISTORY: As outlined above. The patient states he was drinking alcohol in the past, but has not been drinking alcohol for several years now. He is an ex-smoker. MEDICATIONS: His medications on admission are listed as only including vitamin D and Synthroid. We need to get a followup date of his outpatient medications. Current medications are noted in the MAR. ALLERGIES: HE HAS NO KNOWN DRUG ALLERGIES. FAMILY HISTORY: Noncontributory. REVIEW OF SYSTEMS: As noted above. PHYSICAL EXAMINATION: VITAL SIGNS: Blood pressure of 150/70 with a heart rate in the 70s. He is afebrile. HEENT: Head is atraumatic and normocephalic. NECK: Supple. Mucous membranes moist. LUNGS: Decreased breath sounds at bases. CARDIAC: Regular rate and rhythm. ABDOMEN: Soft. EXTREMITIES: Show trace edema. IMAGING DATA: He had a head CT as well as an abdominal CT without IV contrast. He is known to have several cysts in the kidneys. No hydro noted. There is mention made of large volume of abdominal ascites. LABORATORY DATA: Labs from today show hemoglobin 9.7, hematocrit 30.7, white blood cell count 11.6. Sodium 139, potassium 4.1, chloride 107, bicarb 18, anion gap 18, BUN 35, creatinine 1.7. His creatinine on admission is 1.96, actually come down. Previous creatinine had been in the 1.2 to 1.4 range. He had an SGOT and SGPT of 78 and 42 respectively with a total bilirubin of 1.0, albumin 2.5. Urine studies show 2+ protein. In the past, he had urine albumin to creatinine ratio in May 2021, of 3040 mg of albumin per gram of creatinine. No urine studies done on this admission yet. Previous serum albumin in February was 2.5. IMPRESSION: 77-YEAR-OLD WITH MULTIPLE CHRONIC MEDICAL PROBLEMS, ADMITTED WITH ACUTE KIDNEY INJURY, NON-ANION GAP METABOLIC ACIDOSIS AND NEWLY DISCOVERED ASCITES WITH A HISTORY OF HEAVY NEAR-NEPHROTIC RANGE PROTEINURIA IN THE PAST. 1. Acute kidney injury. This is most consistent with renal hypoperfusion in the setting of this presentation. Given his ascites and low serum albumin, he probably has decreased effective arterial volume and renal perfusion. Other possibilities need to be ruled out with urinalysis, urine studies, and some serologies. A CAT scan helps to rule out obstruction, as there was no hydro. 2. Heavy near nephrotic-range proteinuria. Most likely due to diabetic nephropathy, but need to rule out other possibilities such as dysproteinemia, like multiple myeloma. 3. Newly discovered ascites with abnormal liver function tests. He is having a GI evaluation. Nephrotic syndrome may be playing a role, but typically one develops peripheral edema as much as or more than ascites. 4. As mentioned, he is having workup for the ascites with GI evaluation. We will need a diagnostic tap to make sure that we know whether it is an exudate or transudate. RECOMMENDATIONS: As follows: 1. Urinalysis and spot urine studies. 2. Serologic studies as ordered including a serum immunofixation and free kappa and lambda light chains. 3. Agree with IV albumin. 4. Hold diuretics until creatinine gets back to baseline. 5. We will follow the patient closely with the team as we sort out the cause of his acute kidney injury and ascites. MD JOSE RMAON Roldan/LUPE / [id number]
[2022-04-03] MEDS: Levothyroxine Sodium 25 MCG TABLET PO (05:25)
[2022-04-03 08:40] LABS: Glucose, Whole Blood 103 mg/dL (60-115)
[2022-04-03] MEDS: Lactulose 20 GM/30 ML SOLUTION PO ×2 (09:01→20:38)
[2022-04-03] MEDS: polyethylene glycoL 3350 17 GM POWD.PACK PO (09:01)
[2022-04-03] MEDS: amLODIPine Besylate 10 MG TABLET PO (09:02)
[2022-04-03] MEDS: Amiodarone HCL 200 MG TABLET PO (09:02)
[2022-04-03] MEDS: Cholecalciferol (Vitamin D3) 25 MCG TABLET PO (09:02)
[2022-04-03] MEDS: Metoprolol Succinate ER 50 MG TAB.ER.24H PO (09:02)
[2022-04-03] MEDS: Docusate Sodium 100 MG CAPSULE PO ×3 (09:02→20:38)
[2022-04-03] MEDS: 0.9 % Sodium Chloride Flush 3 ML SYRINGE IVFLUSH ×2 (09:03→17:36)
[2022-04-03 09:12] LABS: Anion Gap 16 (12-20); Blood Urea Nitrogen 33 mg/dL (9-16); Calcium 8.7 mg/dL (8.4-10.2); Carbon Dioxide 19 mmol/L (22-29); Chloride 109 mmol/L (96-108); Creatinine Clr Calc Pharmacy 41.5; Estimated Glomerular Filt Rate 47; Glucose Random 108 mg/dL (60-115); Potassium 4.6 mmol/L (3.3-5.1); Sodium 139 mmol/L (135-145)
[2022-04-03] MEDS: timoloL maleate 0.5 % Oph Sol 5 ML DRBTL 1 DROP EYE-LEFT (09:16)
[2022-04-03] MEDS: Albuterol/Iprat 2.5/0.5MG 3 ML AMPUL.NEB INHALE ×3 (11:16→19:46)
[2022-04-03 11:59] LABS: Glucose, Whole Blood 132 mg/dL (60-115)
--- NOTE | 2022-04-03 13:17 | HO.PM.IMPN ---
Subjective Subjective Date of Service: 04/03/22 Interval History: abd discomfort mild Review of Systems Denies any nausea vomiting or diarrhea. Mild hypothermia No cough or phlegm or any urinary complaints. Physical Exam Vital Signs: Vital Signs: Last Vital Signs Temp 96.0 F L 04/03/22 11:49 Pulse 64 04/03/22 11:49 Resp 12 04/03/22 11:49 BP 139/60 04/03/22 11:49 Pulse Ox 91 L 04/03/22 11:49 O2 Del Method 04/03/22 11:49 O2 Flow Rate 4 04/03/22 11:49 BMI result Body Mass Index 25.9 Appearance: Alert.? Oriented X3.? not in distress.? cvs: rrr, [id number] , no murmur res: clear to auscultation ,no rhonchii or wheezing abd: no rebound or guarding ,mild abd pain/left side lower, bs present. ext pulses present , no cyanosis . neuro: axo3 , nonfocal. Objective Data Active Medications Acetaminophen (Acetaminophen 325 Mg Tablet) 650 mg PO Q6H PRN PRN Reason: Pain, Mild (Pain Scale 1-3) Albuterol/Ipratropium (Albuterol/Iprat 2.5/0.5mg 3 Ml Ampul.Neb) 3 ml INHALE RQ4H WHILE AWAKE [facility] Last Admin: 04/03/22 11:16 Dose: 3 ml Documented By: BIENVENIDO Amiodarone HCl (Amiodarone Hcl 200 Mg Tablet) 200 mg PO DAILY [facility] Last Admin: 04/03/22 09:02 Dose: 200 mg Documented By: SETH Amlodipine Besylate (Amlodipine Besylate 10 Mg Tablet) 10 mg PO DAILY [facility]; Protocol Last Admin: 04/03/22 09:02 Dose: 10 mg Documented By: SETH Apixaban (Apixaban 5 Mg Tablet) 5 mg PO BID [facility] Last Admin: 04/01/22 21:13 Dose: 5 mg Documented By: SINA Atorvastatin Calcium (Atorvastatin Calcium 10 Mg Tablet) 10 mg PO BEDTIME [facility] Last Admin: 04/02/22 20:21 Dose: 10 mg Documented By: SLIM Clopidogrel Bisulfate (Clopidogrel Bisulfate 75 Mg Tablet) 75 mg PO DAILY [facility] Dextrose (Dextrose 50 % 25 Gm/50 Ml Syringe) 25 gm IVPUSH Q15M PRN; Protocol PRN Reason: per Hypoglycemia Standing Ord. Docusate Sodium (Docusate Sodium 100 Mg Capsule) 100 mg PO DAILY PRN PRN Reason: Constipation Docusate Sodium (Docusate Sodium 100 Mg Capsule) 100 mg PO BID [facility] Last Admin: 04/03/22 09:02 Dose: 100 mg Documented By: SETH Glucose (Glucose Gel 15 Gm Gel..Gram.) 15 gm PO Q15M PRN; Protocol PRN Reason: per Hypoglycemia Standing Ord. Ceftriaxone Sodium 1 gm/ (Sodium Chloride) 50 mls @ 100 mls/hr IV Q24H [facility] Last Infusion: 04/02/22 18:35 Dose: 0 mls/hr Documented By: JUDAH Azithromycin 500 mg/ Sodium (Chloride) 250 mls @ 125 mls/hr IV Q24H [facility] Last Infusion: 04/02/22 20:48 Dose: 0 mls/hr Documented By: SLIM Insulin Human Lispro (Insulin Lispro 100 Unit/Ml 3 Ml Vial) 0 unit SUBCUT QIDACHS [facility]; Protocol Last Admin: 04/03/22 12:02 Dose: Not Given Documented By: SETH Non-Admin Reason: No Insulin Coverage Lactulose (Lactulose 20 Gm/30 Ml Solution) 20 gm PO BID [facility] Last Admin: 04/03/22 09:01 Dose: 20 gm Documented By: SETH Levothyroxine Sodium (Levothyroxine Sodium 25 Mcg Tablet) 25 mcg PO DAILY@0600 [facility] Last Admin: 04/03/22 05:25 Dose: 25 mcg Documented By: SLIM Metoprolol Succinate (Metoprolol Succinate Er 50 Mg Tab.Er.24h) 50 mg PO DAILY [facility]; Protocol Last Admin: 04/03/22 09:02 Dose: 50 mg Documented By: SETH Mirtazapine (Mirtazapine 7.5 Mg Tablet) 7.5 mg PO BEDTIME [facility] Last Admin: 04/02/22 20:21 Dose: 7.5 mg Documented By: SLIM Ondansetron HCl (Ondansetron Hcl 4 Mg/2 Ml Vial) 4 mg IVPUSH Q8H PRN PRN Reason: Nausea and Vomiting Polyethylene Glycol (Polyethylene Glycol 3350 17 Gm Powd.Pack) 17 gm PO DAILY [facility] Last Admin: 04/03/22 09:01 Dose: 17 gm Documented By: SETH Sodium Chloride (0.9 % Sodium Chloride Flush 3 Ml Syringe) 3 ml IVFLUSH QSHIFT [facility] Last Admin: 04/03/22 09:03 Dose: 3 ml Documented By: SETH Timolol Maleate (Timolol Maleate 0.5 % Oph [place] 5 Ml Drbtl) 1 drop EYE-LEFT DAILY [facility] Last Admin: 04/03/22 09:16 Dose: 1 drop Documented By: SETH Vitamin D (Cholecalciferol (Vitamin D3) 25 Mcg Tablet) 25 mcg PO DAILY [facility] Last Admin: 04/03/22 09:02 Dose: 25 mcg Documented By: SETH Labs CBC & Chem 7: 04/02/22 06:19 04/03/22 08:26 Labs: Laboratory Results - last 24 hr 04/02/22 04/02/22 04/02/22 15:03 20:15 22:45 Anion Gap Estim Creat Clear Calc Estimated GFR POC Glucose 152 H 103 Random Glucose Calcium Urine Color Yellow Urine Appearance Clear Urine pH 5.5 Ur Specific [place] 1.020 Urine Protein 100 (2+) H Urine Glucose (UA) Negative Urine Ketones Negative Urine Blood Negative Urine Nitrite Negative Ur Leukocyte Esterase Negative Urine RBC >20 H Urine WBC 0-5 Ur Squamous Epith Cells 0-2 Other Crystals Present Urine Bacteria None Seen Hyaline Casts 3-5 04/03/22 04/03/22 04/03/22 08:24 08:26 11:30 Anion Gap 16 Estim Creat Clear Calc 41.5 Estimated GFR 47 POC Glucose 103 132 H Random Glucose 108 D Calcium 8.7 D Urine Color Urine Appearance Urine pH Ur Specific [place] Urine Protein Urine Glucose (UA) Urine Ketones Urine Blood Urine Nitrite Ur Leukocyte Esterase Urine RBC Urine WBC Ur Squamous Epith Cells Other Crystals Urine Bacteria Hyaline Casts Microbiology Microbiology Results: Microbiology 04/01/22 12:27 Blood Culture - Preliminary Blood - Venous No growth after 24 hours. 04/01/22 12:27 Blood Culture - Preliminary Blood - Venous No growth after 24 hours. Assessment and Plan (1) CKD (chronic kidney disease): Status: Acute (2) Abdominal ascites: Status: Acute (3) Left lower quadrant abdominal pain: Status: Acute (4) Abdominal ascites: Status: Acute (5) Pneumonia: Status: Acute (6) Dehydration: Status: Acute (7) CHANTE (acute kidney injury): Status: Acute Plan 76-year-old male with a PMH significant for diabetes with diabetic foot ulcers and infections in the past, left toe amputations, HTN, history of Afib on Eliquis, HLD, and history of peripheral vascular disease who presents to the ED from home via ambulance due to generalized weakness, fall, and confusion. Pt will be admitted for treatment for dehydration, CHANTE, and possible pneumonia. # question of community acquired pneumonia -- leukocytosis improving, no sepsis acute Lactic acidosis probably related to metformin-seems improvin,will stop trendin, CHANTE due to poor oral intake. -- CXR opacities look similar to previous x-rays, but increased superimposed infiltrate cannot be ruled out -- ceftriaxone, azithromycin day2 -- blood cultures pending # CHANTE on possible ckd 3. -- likely secondary to dehydration and decreased PO intake dc IVF due to asctis -- bladder scan to r/o postrenal source -- monitor labs daily # abdominal deuc-tcyevpmubjxlxd-lyzjlhayzifl/ascitis -- CT of abdomen: ascitis ,diverticulosis ,constipation -- surgery consult-noted, no new dm diet Ascitis : multifactorial need further workup ua,electrolytes ascitis ?liver dis added albumin need hold plavix/eliquis. # diabetes -- hold metformin -- ssi -- diabetic diet once off NPO # paroxysmal AFib hold Eliquis,plavix -need ascitis tap and cont metoprolol # history of PAD - continue Plavix # hypothyroidism - continue levothyroxine Full code inpatient need :community acquired pneumonia,ascitis -need iv antibiotics ,dignostic/therapeutic paracentesis. Time Spent With Patient Time: Total time managing care of this patient today ____ minutes. Quality Stroke Does the patient have a stroke diagnosis?: No VTE Prior VTE?: No VTE Risk Level:: Medical - moderate - high VTE Device Contraindication: Treatment Not Indicated VTE Drug Contraindication: N/A - Med Ordered
[2022-04-03 15:15] LABS: Creatinine Urine 84.65 mg/dL; Creatinine Urine 84.84 mg/dL; Microalbum/Creatinine Ratio Ur 505.6 ug/mg cr; Total Protein Urine Random 68 mg/dL (<12)
[2022-04-03 16:33] LABS: Glucose, Whole Blood 155 mg/dL (60-115)
[2022-04-03] MEDS: Acetaminophen 325 MG TABLET 650 MG PO (17:35)
[2022-04-03] MEDS: cefTRIAXone sodium 1 GM in 0.9 % Sodium Chloride 50 ML IV (17:48)
[2022-04-03] MEDS: Azithromycin 500 MG in 0.9 % Sodium Chloride 250 ML 125 MG IV (17:52)
[2022-04-03] MEDS: ondansetron HCL 4 MG/2 ML VIAL IVPUSH (17:58)
--- NOTE | 2022-04-03 18:08 | PM.EVENT ---
Event Note Date of Service: 04/03/22 Event Note: was called by RN that patient complaining of shortness of breath patient complaining of nausea denies chest pain does not complain of shortness of breath per se but complaining of not feeling well on examination awake alert in no distress lungs clear to auscultation anterior chest wall no tenderness to palpation abdomen distended nontender bowel sounds audible extremities no edema assessment and plan hypoxia 89-90% on 4 L, no respiratory distress, will give antiemetics if symptoms has pneumonia being treated with IV antibiotics positive fluid balance will give IV Lasix 20 mg, follow clinical course Time Spent With Patient Time: Total time managing care of this patient today ____ minutes.
[2022-04-03 20:19] LABS: Glucose, Whole Blood 130 mg/dL (60-115)
[2022-04-03] MEDS: Furosemide 20 MG/2 ML VIAL IVPUSH (20:30)
[2022-04-03] MEDS: Atorvastatin Calcium 10 MG TABLET PO (20:38)
[2022-04-03] MEDS: Mirtazapine 7.5 MG TABLET PO (20:38)
[2022-04-04] VITALS (10 sets, daily range): BP systolic 101–126; BP diastolic 50–64; PULSE 54–92; RESP 12–26; TEMP 33.3–36.7; O2SAT 90–98
[2022-04-04] MEDS: Levothyroxine Sodium 25 MCG TABLET PO (05:56)
[2022-04-04 07:28] LABS: Anion Gap 18 (12-20); Blood Urea Nitrogen 31 mg/dL (9-16); Calcium 8.6 mg/dL (8.4-10.2); Carbon Dioxide 18 mmol/L (22-29); Chloride 111 mmol/L (96-108); Creatinine Clr Calc Pharmacy 43.4; Estimated Glomerular Filt Rate 50; Glucose Random 93 mg/dL (60-115); Potassium 4.5 mmol/L (3.3-5.1); Sodium 142 mmol/L (135-145)
[2022-04-04 07:57] LABS: Glucose, Whole Blood 93 mg/dL (60-115)
[2022-04-04] MEDS: Albuterol/Iprat 2.5/0.5MG 3 ML AMPUL.NEB INHALE ×3 (08:04→20:07)
[2022-04-04] MEDS: amLODIPine Besylate 10 MG TABLET PO (08:39)
[2022-04-04] MEDS: timoloL maleate 0.5 % Oph Sol 5 ML DRBTL 1 DROP EYE-LEFT (08:39)
[2022-04-04] MEDS: Docusate Sodium 100 MG CAPSULE PO ×2 (08:39→19:50)
[2022-04-04] MEDS: Cholecalciferol (Vitamin D3) 25 MCG TABLET PO (08:39)
[2022-04-04] MEDS: Furosemide 20 MG/2 ML VIAL IVPUSH ×2 (08:39→16:57)
[2022-04-04] MEDS: Amiodarone HCL 200 MG TABLET PO (08:39)
[2022-04-04] MEDS: Lactulose 20 GM/30 ML SOLUTION PO ×2 (08:39→19:51)
[2022-04-04] MEDS: polyethylene glycoL 3350 17 GM POWD.PACK PO (08:39)
[2022-04-04] MEDS: Albumin Human 25 % 100 ML IV ×3 (08:39→19:50)
[2022-04-04] MEDS: Metoprolol Succinate ER 50 MG TAB.ER.24H PO (08:39)
[2022-04-04] MEDS: ondansetron HCL 4 MG/2 ML VIAL IVPUSH ×2 (10:41→21:13)
[2022-04-04] MEDS: ALPRAZolam 0.25 MG TABLET PO (10:41)
[2022-04-04 11:27] LABS: VBG Base Excess -8.3 mmol/L; VBG HCO3 16 mmol/L (22-26); VBG pCO2 33 mmHg; VBG pH 7.31 (7.32-7.43); VBG pO2 120 mmHg
[2022-04-04 11:30] LABS: Venous Blood Gas Refer to POC result
[2022-04-04 11:30] LABS: INTERNATIONAL NORM RATIO 1.6 (0.9-1.1); Prothrombin Time 18.4 SEC (10.0-13.1)
[2022-04-04 11:31] LABS: Ammonia 33 umol/L (13-55)
[2022-04-04 11:33] LABS: Partial Thromboplastin Time 36.9 SEC (26.0-36.4)
[2022-04-04 11:57] LABS: Glucose, Whole Blood 145 mg/dL (60-115)
[2022-04-04 12:31] LABS: Alanine Aminotransferase 33 U/L (0-40); Albumin Level 3.2 g/dL (3.5-5.0); Alkaline Phosphatase 166 U/L (39-117); Aspartate Amino Transferase 62 U/L (5-37); Bilirubin Direct 0.3 mg/dL (0.0-0.5); Bilirubin Total 0.7 mg/dL (0.0-1.0); Total Protein 5.5 g/dL (6.5-8.0)
[2022-04-04 13:05] LABS: Rheumatoid Factor 15.6 IU/mL (<15.0)
--- NOTE | 2022-04-04 13:22 | HO.PM.IMPN ---
Subjective Subjective Date of Service: 04/05/22 Interval History: hypoxia,ascitis Review of Systems feels anxious,sob also has some nausea passing bm's has mild abd discomfort no fevers or cough Physical Exam Vital Signs: Vital Signs: Last Vital Signs Temp 96.8 F 04/04/22 11:52 Pulse 54 04/04/22 11:52 Resp 16 04/04/22 11:52 BP 101/50 L 04/04/22 11:52 Pulse Ox 94 04/04/22 11:52 O2 Del Method 04/04/22 11:52 O2 Flow Rate 5 04/04/22 11:52 BMI result Body Mass Index 25.9 Appearance: Alert.? Oriented X3.?somewhat sob.? cvs: rrr, [id number] . res: clear to auscultation ,no rhonchii or wheezing abd: no rebound or guarding ,mild soarness left lower quadrant, bs present. ext pulses present , no cyanosis . neuro: axo3 , nonfocal. Objective Data Active Medications Acetaminophen (Acetaminophen 325 Mg Tablet) 650 mg PO Q6H PRN PRN Reason: Pain, Mild (Pain Scale 1-3) Last Admin: 04/03/22 17:35 Dose: 650 mg Documented By: SETH Albuterol/Ipratropium (Albuterol/Iprat 2.5/0.5mg 3 Ml Ampul.Neb) 3 ml INHALE RQ4H WHILE AWAKE [facility] Last Admin: 04/04/22 13:03 Dose: Not Given Documented By: BIENVENIDO Non-Admin Reason: resp not avial Amiodarone HCl (Amiodarone Hcl 200 Mg Tablet) 200 mg PO DAILY [facility] Last Admin: 04/04/22 08:39 Dose: 200 mg Documented By: LUIGI Amlodipine Besylate (Amlodipine Besylate 10 Mg Tablet) 10 mg PO DAILY [facility]; Protocol Last Admin: 04/04/22 08:39 Dose: 10 mg Documented By: LUIGI Apixaban (Apixaban 5 Mg Tablet) 5 mg PO BID [facility] Last Admin: 04/01/22 21:13 Dose: 5 mg Documented By: SINA Atorvastatin Calcium (Atorvastatin Calcium 10 Mg Tablet) 10 mg PO BEDTIME [facility] Last Admin: 04/03/22 20:38 Dose: 10 mg Documented By: DAMARI Clopidogrel Bisulfate (Clopidogrel Bisulfate 75 Mg Tablet) 75 mg PO DAILY [facility] Dextrose (Dextrose 50 % 25 Gm/50 Ml Syringe) 25 gm IVPUSH Q15M PRN; Protocol PRN Reason: per Hypoglycemia Standing Ord. Docusate Sodium (Docusate Sodium 100 Mg Capsule) 100 mg PO DAILY PRN PRN Reason: Constipation Last Admin: 04/03/22 20:38 Dose: 100 mg Documented By: DAMARI Docusate Sodium (Docusate Sodium 100 Mg Capsule) 100 mg PO BID [facility] Last Admin: 04/04/22 08:39 Dose: 100 mg Documented By: RUBA-YANCY Furosemide (Furosemide 20 Mg/2 Ml Vial) 20 mg IVPUSH DAILY [facility]; Protocol Last Admin: 04/04/22 08:39 Dose: 20 mg Documented By: LUIGI Glucose (Glucose Gel 15 Gm Gel..Gram.) 15 gm PO Q15M PRN; Protocol PRN Reason: per Hypoglycemia Standing Ord. Ceftriaxone Sodium 1 gm/ (Sodium Chloride) 50 mls @ 100 mls/hr IV Q24H [facility] Last Infusion: 04/03/22 18:41 Dose: 0 mls/hr Documented By: SETH Azithromycin 500 mg/ Sodium (Chloride) 250 mls @ 125 mls/hr IV Q24H [facility] Last Infusion: 04/03/22 21:05 Dose: 0 mls/hr Documented By: MOON Albumin Human (Kedbumin 25 %) 100 mls @ 100 mls/hr IV Q6H [facility] Stop: 04/05/22 03:14 Last Infusion: 04/04/22 09:47 Dose: 0 mls/hr Documented By: MIKY Insulin Human Lispro (Insulin Lispro 100 Unit/Ml 3 Ml Vial) 0 unit SUBCUT QIDACHS [facility]; Protocol Last Admin: 04/04/22 11:58 Dose: Not Given Documented By: MIKY Non-Admin Reason: No Insulin Coverage Lactulose (Lactulose 20 Gm/30 Ml Solution) 20 gm PO BID [facility] Last Admin: 04/04/22 08:39 Dose: 20 gm Documented By: LUIGI Levothyroxine Sodium (Levothyroxine Sodium 25 Mcg Tablet) 25 mcg PO DAILY@0600 [facility] Last Admin: 04/04/22 05:56 Dose: 25 mcg Documented By: MOON Metoprolol Succinate (Metoprolol Succinate Er 50 Mg Tab.Er.24h) 50 mg PO DAILY [facility]; Protocol Last Admin: 04/04/22 08:39 Dose: 50 mg Documented By: LUIGI Mirtazapine (Mirtazapine 7.5 Mg Tablet) 7.5 mg PO BEDTIME [facility] Last Admin: 04/03/22 20:38 Dose: 7.5 mg Documented By: DAMARI Ondansetron HCl (Ondansetron Hcl 4 Mg/2 Ml Vial) 4 mg IVPUSH Q8H PRN PRN Reason: Nausea and Vomiting Last Admin: 04/03/22 17:58 Dose: 4 mg Documented By: SETH Polyethylene Glycol (Polyethylene Glycol 3350 17 Gm Powd.Pack) 17 gm PO DAILY [facility] Last Admin: 04/04/22 08:39 Dose: 17 gm Documented By: LUIGI Sodium Chloride (0.9 % Sodium Chloride Flush 3 Ml Syringe) 3 ml IVFLUSH QSHIFT [facility] Last Admin: 04/04/22 08:34 Dose: Not Given Documented By: LUIGI Non-Admin Reason: See Note Timolol Maleate (Timolol Maleate 0.5 % Oph [place] 5 Ml Drbtl) 1 drop EYE-LEFT DAILY [facility] Last Admin: 04/04/22 08:39 Dose: 1 drop Documented By: LUIGI Vitamin D (Cholecalciferol (Vitamin D3) 25 Mcg Tablet) 25 mcg PO DAILY [facility] Last Admin: 04/04/22 08:39 Dose: 25 mcg Documented By: LUIGI Labs CBC & Chem 7: 04/05/22 05:57 04/05/22 07:39 Labs: Laboratory Results - last 24 hr 04/02/22 04/02/22 04/02/22 22:45 22:45 22:45 PT INR APTT VBG pH VBG pCO2 VBG pO2 VBG HCO3 VBG O2 Saturation VBG Base Excess Anion Gap Estim Creat Clear Calc Estimated GFR POC Glucose Random Glucose Calcium Total Bilirubin Direct Bilirubin AST ALT Alkaline Phosphatase Ammonia Total Protein Albumin U Random Total Protein 68 H Ur Random Sodium 24.0 Urine Creatinine 84.65 84.84 Urine Microalbumin 429.0 Microalb/Creat Ratio 505.6 Protein/Creatinin Ratio 0.80 H Rheumatoid Factor 04/03/22 04/03/22 04/04/22 16:23 20:05 06:17 PT INR APTT VBG pH VBG pCO2 VBG pO2 VBG HCO3 VBG O2 Saturation VBG Base Excess Anion Gap 18 Estim Creat Clear Calc 43.4 Estimated GFR 50 POC Glucose 155 H 130 H Random Glucose 93 Calcium 8.6 Total Bilirubin 0.7 Direct Bilirubin 0.3 AST 62 H ALT 33 Alkaline Phosphatase 166 H Ammonia Total Protein 5.5 L Albumin 3.2 L U Random Total Protein Ur Random Sodium Urine Creatinine Urine Microalbumin Microalb/Creat Ratio Protein/Creatinin Ratio Rheumatoid Factor 04/04/22 04/04/22 04/04/22 07:45 11:12 11:12 PT 18.4 H INR 1.6 H APTT 36.9 H VBG pH VBG pCO2 VBG pO2 VBG HCO3 VBG O2 Saturation VBG Base Excess Anion Gap Estim Creat Clear Calc Estimated GFR POC Glucose 93 Random Glucose Calcium Total Bilirubin Direct Bilirubin AST ALT Alkaline Phosphatase Ammonia 33 Total Protein Albumin U Random Total Protein Ur Random Sodium Urine Creatinine Urine Microalbumin Microalb/Creat Ratio Protein/Creatinin Ratio Rheumatoid Factor 04/04/22 04/04/22 04/04/22 11:20 11:51 12:32 PT INR APTT VBG pH 7.31 L VBG pCO2 33 VBG pO2 120 VBG HCO3 16 L VBG O2 Saturation 98.0 VBG Base Excess -8.3 Anion Gap Estim Creat Clear Calc Estimated GFR POC Glucose 145 H Random Glucose Calcium Total Bilirubin Direct Bilirubin AST ALT Alkaline Phosphatase Ammonia Total Protein Albumin U Random Total Protein Ur Random Sodium Urine Creatinine Urine Microalbumin Microalb/Creat Ratio Protein/Creatinin Ratio Rheumatoid Factor 15.6 H Microbiology Microbiology Results: Microbiology 04/01/22 12:27 Blood Culture - Preliminary Blood - Venous No growth after 48 hours. 04/01/22 12:27 Blood Culture - Preliminary Blood - Venous No growth after 48 hours. Assessment and Plan (1) Acute hypoxemic respiratory failure: Status: Acute (2) CKD (chronic kidney disease): Status: Acute (3) Pneumonia: Status: Acute (4) CHANTE (acute kidney injury): Status: Acute Plan 76-year-old male with a PMH significant for diabetes with diabetic foot ulcers and infections in the past, left toe amputations, HTN, history of Afib on Eliquis, HLD, and history of peripheral vascular disease who presents to the ED from home via ambulance due to generalized weakness, fall, and confusion. Pt will be admitted for treatment for dehydration, CHANTE, and possible pneumonia. acute hypoxemic respiratory failure secondary to multifactorial: question of community acquired pneumonia,?pulm congestion,ascitis (unclear etiology might also be contributing) leukocytosis improving, no sepsis acute Lactic acidosis probably related to metformin-seems improvin,will stop trendin, CHANTE due to poor oral intake. CXR opacities look similar to previous x-rays, but increased superimposed infiltrate cannot be ruled out blood cultures pending bedside echo by icu -ef seems fine ,right sided heart dysfunction could not able to eval vbg noted ,chest ct also reviewed ,esr,ammonia seems fine ceftriaxone, azithromycin day3, added lasix moniter i/o,daily weights d/w Icu-added serologies ,continue current managemnt -with antibiotics,iv lasix pulm eval and echo added. # CHANTE on possible ckd 3. -- likely secondary to dehydration and decreased PO intake dc? IVF due to asctis -- bladder scan to r/o postrenal source moniter bmp closely Ascitis : multifactorial lft's mild elevation,ammonia levels seems fine ascitis ?liver dis vs renal dis, inr elevated hold plavix/eliquisin anticipation of ascitis tap in am. # diabetes -- hold metformin -- ssi -- diabetic diet . # paroxysmal AFib hold? Eliquis,plavix -need ascitis tap and cont metoprolol # history of PAD - continue Plavix # hypothyroidism - continue levothyroxine Full code inpatient need :acute hypoxemic respiratory failure sec to community acquired pneumonia,ascitis -need iv antibiotics? ,dignostic/therapeutic paracentesis. overall prognosis guarded ,his updated in detail ,if patient codition deteriorates further will update his . Time Spent With Patient Time: Total time managing care of this patient today ____ minutes. Quality Stroke Does the patient have a stroke diagnosis?: No VTE Prior VTE?: No VTE Risk Level:: Medical - moderate - high VTE Device Contraindication: Treatment Not Indicated VTE Drug Contraindication: N/A - Med Ordered
[2022-04-04 13:34] LABS: Erythrocyte Sedimentation Rate 25 MM/HR (0-15)
[2022-04-04 15:04] LABS: Adenovirus PCR Not Detected (Not Detect.); Bordetella parapertussis PCR Not Detected (Not Detect.); Bordetella pertussis PCR Not Detected (Not Detect.); Chlamydia pneumoniae PCR Not Detected (Not Detect.); Coronavirus 229E PCR Not Detected (Not Detect.); Coronavirus HKU1 PCR Not Detected (Not Detect.); Coronavirus NL63 PCR Not Detected (Not Detect.); Coronavirus OC43 PCR Not Detected (Not Detect.); Human metapneumovirus PCR Not Detected (Not Detect.); Influenza A PCR Not Detected (Not Detect.); Influenza B PCR Not Detected (Not Detect.); Mycoplasma pneumoniae PCR Not Detected (Not Detect.); Parainfluenza 1 PCR Not Detected (Not Detect.); Parainfluenza 2 PCR Not Detected (Not Detect.); Parainfluenza 3 PCR Not Detected (Not Detect.); Parainfluenza 4 PCR Not Detected (Not Detect.); RSV PCR Not Detected (Not Detect.); Rhino/Enterovirus PCR Not Detected (Not Detect.); SARS-CoV-2 PCR Not Detected (Not Detect.)
[2022-04-04] MEDS: 0.9 % Sodium Chloride Flush 3 ML SYRINGE IVFLUSH ×2 (15:34→19:50)
--- NOTE | 2022-04-04 15:46 | W.PM.CCCN ---
History of Present Illness Data of Consult Service Date: 04/04/22 Requesting physician: Scott Silva Primary Care Provider: Jayla Murrieta MD HPI Reason for consult: Increasing shortness of breath 77-year-old male a former alcoholic and a former smoker underlying type 2 diabetes mellitus with peripheral vascular disease and has already had a transmetatarsal amputation also hyperlipidemic and hypertensive previous history of nephrotic problems this kidneys and has good in 0 chronic stage II renal failure but the degree of proteinuria seems to have abated and was presumed to have been related to diabetic nephropathy and now he comes in with increasing abdominal girth weakness anorexia and from a baseline creatinine of 1.2-1.3 he presented at 1.96 which is a considerable loss of of GFR that has since come back with the volume replacement namely by IV albumin and creatinine is back down to about 1.3 currently being diuresed because he has a large volume of ascites which is yet to be sampled and he has significant peripheral edema at the same time but he is also presenting with progressive acute hypoxemic respiratory failure and requiring high FiO2 and instantly desaturates into the 70s when the O2 is removed has extensive bilateral a COPD and clearly interstitial fibrosis and extensive islands of ground-glass in varying attenuation infiltrates throughout both lung scott and considerable honeycombing as well so little know if this is of interstitial pulmonary fibrosis or 1 of the nonspecific pneumonias or hypersensitivity issue or even and underlying rheumatic disease rheumatoid factor is just borderline HELEN is pending and his sed rate is neither here nor there at about 25 My bedside echo shows normal LV and RV size and systolic function and no primary valve or pericardial disease and I could not visualize the inferior vena cava because of the tense ascites He has a non-anion gap metabolic acidosis and hyperchloremia I assume related to renal tubular acidosis problem Is on antibiotics for presumed pneumonia but with a sed rate of 25 I do not have a an immediate indication for steroids II think we would have to engage pulmonary consultation from a cardiac standpoint and in relation to the development of peripheral edema I think elevated right heart filling pressures from acute on chronic cor pulmonale needs to be ruled out and a simple he knows central venous pressure line via could be placed As we wait for the serologies to come back it is still not impossible that he could be hypercoagulable and in my mind I wonder whether not if Renal approves he could be receiving a a CT angiogram by pre PE protocol to rule out a lung thrombotic event Review of Systems Review of Systems: Yes all other systems are reviewed and are negative [facility] Past Medical History Medical History Abscess of right foot Anxiety and depression Asthma Atrial fibrillation Atrial fibrillation with rapid ventricular response Avascular necrosis of bone of hip Cellulitis Coronary artery disease Diabetic foot ulcer Diabetic nephropathy Diabetic neuropathy Diverticular disease DMII (diabetes mellitus, type 2) Hypercholesterolemia Hypertension Open wound Osteomyelitis of foot Osteomyelitis of foot Osteomyelitis of toe PAD (peripheral artery disease) Preoperative cardiovascular examination Thrombocytopenia Tobacco abuse Tubular adenoma of colon Type 2 diabetes mellitus with diabetic foot infection Type 2 diabetes mellitus with hyperglycemia Type 2 diabetes mellitus with peripheral artery disease Vitamin D deficiency Family History Family History Father Diabetes Hypertension CVD (cardiovascular disease) Stroke Mother CVD (cardiovascular disease) Hypertension Cancer Sister No problems noted. Son Stroke Surgical History Surgical History Amputated toe of right foot Amputation finger History of cataract surgery History of surgery Social History Social History Household Members: Spouse and Children Household Members Other:: 4 Housing: House Do you presently have visiting nurse or other home services: Yes Alcohol intake: former Patient Tobacco Use Status: Former Tobacco user Quit Date: 4 months ago Tobacco use type: Cigarette Cigarettes Per Day: 7 Years Smoked: 09/2020 stopped e-Cigarette/Vaping Use: Never Used Second Hand Smoke Exposure: No Advance Directives Date on File: 07/24/20 service: No Current occupational status: retired Cognitive needs: No Hearing needs: No Vision needs: Yes Meds Allergies Allergy/AdvReac Type Severity Reaction Status Date / Time No Known Allergies Allergy Mild Verified 12/30/21 09:11 Active Medications: Current Medications Acetaminophen (Acetaminophen 325 Mg Tablet) 650 mg PO Q6H PRN PRN Reason: Pain, Mild (Pain Scale 1-3) Last Admin: 04/03/22 17:35 Dose: 650 mg Albuterol/Ipratropium (Albuterol/Iprat 2.5/0.5mg 3 Ml Ampul.Neb) 3 ml INHALE RQ4H WHILE AWAKE PRAMOD Last Admin: 04/04/22 15:17 Dose: 3 ml Amiodarone HCl (Amiodarone Hcl 200 Mg Tablet) 200 mg PO DAILY [facility] Last Admin: 04/04/22 08:39 Dose: 200 mg Amlodipine Besylate (Amlodipine Besylate 10 Mg Tablet) 10 mg PO DAILY [facility]; Protocol Last Admin: 04/04/22 08:39 Dose: 10 mg Apixaban (Apixaban 5 Mg Tablet) 5 mg PO BID [facility] Last Admin: 04/01/22 21:13 Dose: 5 mg Atorvastatin Calcium (Atorvastatin Calcium 10 Mg Tablet) 10 mg PO BEDTIME PRAMOD Last Admin: 04/03/22 20:38 Dose: 10 mg Clopidogrel Bisulfate (Clopidogrel Bisulfate 75 Mg Tablet) 75 mg PO DAILY [facility] Dextrose (Dextrose 50 % 25 Gm/50 Ml Syringe) 25 gm IVPUSH Q15M PRN; Protocol PRN Reason: per Hypoglycemia Standing Ord. Docusate Sodium (Docusate Sodium 100 Mg Capsule) 100 mg PO DAILY PRN PRN Reason: Constipation Last Admin: 04/03/22 20:38 Dose: 100 mg Docusate Sodium (Docusate Sodium 100 Mg Capsule) 100 mg PO BID [facility] Last Admin: 04/04/22 08:39 Dose: 100 mg Furosemide (Furosemide 20 Mg/2 Ml Vial) 20 mg IVPUSH BID@0900,1800 [facility]; Protocol Glucose (Glucose Gel 15 Gm Gel..Gram.) 15 gm PO Q15M PRN; Protocol PRN Reason: per Hypoglycemia Standing Ord. Ceftriaxone Sodium 1 gm/ (Sodium Chloride) 50 mls @ 100 mls/hr IV Q24H [facility] Last Infusion: 04/03/22 18:41 Dose: Infused Azithromycin 500 mg/ Sodium (Chloride) 250 mls @ 125 mls/hr IV Q24H [facility] Last Infusion: 04/03/22 21:05 Dose: Infused Albumin Human (Kedbumin 25 %) 100 mls @ 100 mls/hr IV Q6H [facility] Stop: 04/05/22 03:14 Last Infusion: 04/04/22 15:25 Dose: Infused Insulin Human Lispro (Insulin Lispro 100 Unit/Ml 3 Ml Vial) 0 unit SUBCUT QIDACHS [facility]; Protocol Last Admin: 04/04/22 11:58 Dose: Not Given Lactulose (Lactulose 20 Gm/30 Ml Solution) 20 gm PO BID [facility] Last Admin: 04/04/22 08:39 Dose: 20 gm Levothyroxine Sodium (Levothyroxine Sodium 25 Mcg Tablet) 25 mcg PO DAILY@0600 [facility] Last Admin: 04/04/22 05:56 Dose: 25 mcg Metoprolol Succinate (Metoprolol Succinate Er 50 Mg Tab.Er.24h) 50 mg PO DAILY [facility]; Protocol Last Admin: 04/04/22 08:39 Dose: 50 mg Mirtazapine (Mirtazapine 7.5 Mg Tablet) 7.5 mg PO BEDTIME [facility] Last Admin: 04/03/22 20:38 Dose: 7.5 mg Ondansetron HCl (Ondansetron Hcl 4 Mg/2 Ml Vial) 4 mg IVPUSH Q8H PRN PRN Reason: Nausea and Vomiting Last Admin: 04/03/22 17:58 Dose: 4 mg Polyethylene Glycol (Polyethylene Glycol 3350 17 Gm Powd.Pack) 17 gm PO DAILY [facility] Last Admin: 04/04/22 08:39 Dose: 17 gm Sodium Chloride (0.9 % Sodium Chloride Flush 3 Ml Syringe) 3 ml IVFLUSH QSHIFT [facility] Last Admin: 04/04/22 15:34 Dose: 3 ml Timolol Maleate (Timolol Maleate 0.5 % Oph [place] 5 Ml Drbtl) 1 drop EYE-LEFT DAILY [facility] Last Admin: 04/04/22 08:39 Dose: 1 drop Vitamin D (Cholecalciferol (Vitamin D3) 25 Mcg Tablet) 25 mcg PO DAILY [facility] Last Admin: 04/04/22 08:39 Dose: 25 mcg Home Medications Medication Instructions Recorded Confirmed Last Taken Type cholecalciferol (vitamin D3) 25 25 mcg PO DAILY 04/14/20 04/01/22 02/21/22 History mcg (1,000 unit) capsule timolol maleate 0.5 % eye drops 1 drp ophthalmic-Left DAILY 08/21/20 04/01/22 02/21/22 History levothyroxine 25 mcg tablet 25 mcg PO DAILY@0600 02/21/22 04/01/22 02/20/22 History (Synthroid) Physical Exam Vital Signs: Vital Signs: Last Vital Signs Temp 98.0 F 04/04/22 15:40 Pulse 57 04/04/22 15:40 Resp 18 04/04/22 15:40 BP 111/59 L 12/18/22 15:40 Pulse Ox 97 04/04/22 15:40 O2 Del Method 04/04/22 15:40 O2 Flow Rate 9 04/04/22 15:40 BMI result Body Mass Index 25.9 Awake alert and he is tachypneic No apparent neck vein distension and he has good bilateral carotid upstrokes no significant murmurs or gallops Markedly diminished breath sounds bilaterally and no event tissue sounds Abdomen with tense ascites is no palpable organomegaly 3+ bilateral pretibial edema Results Labs CBC & Chem 7: 04/02/22 06:19 04/04/22 06:17 Labs: BMP 04/04/22 06:17 Sodium 142 Potassium 4.5 Chloride 111 H Carbon Dioxide 18 L BUN 31 H Creatinine 1.38 Calcium 8.6 Liver Function 04/04/22 Range/Units 06:17 Total Bilirubin 0.7 (0.0-1.0) mg/dL Direct Bilirubin 0.3 (0.0-0.5) mg/dL AST 62 H (5-37) U/L ALT 33 (0-40) U/L Alkaline Phosphatase 166 H (39-117) U/L Albumin 3.2 L (3.5-5.0) g/dL Microbiology Microbiology Results: Microbiology 04/01/22 12:27 Blood - Venous Blood Culture - Preliminary No growth after 48 hours. 04/01/22 12:27 Blood - Venous Blood Culture - Preliminary No growth after 48 hours. Assessment and Plan (1) Acute hypoxemic respiratory failure: Status: Acute (2) CKD (chronic kidney disease): Status: Acute (3) CHANTE (acute kidney injury): Status: Acute (4) Dehydration: Status: Acute (5) Pneumonia: Status: Acute (6) Abdominal ascites: Status: Acute (7) Cognitive change: Status: Acute (8) Atrial fibrillation: Status: Acute (9) Type 2 diabetes mellitus with hyperglycemia: Status: Acute (10) PAD (peripheral artery disease): Status: Acute (11) Status post transmetatarsal amputation of foot: Status: Acute (12) Hypothyroid: Status: Acute (13) Hyperkalemia: Status: Acute (14) Tubular adenoma of colon: Status: Acute (15) Osteomyelitis of toe of right foot: Status: Acute (16) History of osteomyelitis: Status: Acute (17) Diabetic foot ulcer: Status: Acute (18) Cellulitis and abscess of foot: Status: Acute (19) Hyponatremia: Status: Acute (20) Asthma: Status: Acute (21) Metabolic acidosis due to diabetes mellitus: Status: Acute (22) Interstitial lung disease: Status: Acute Plan At this point we need to see if there is a treatable component to this interstitial lung disease and a sed rate of course is only 25 so I could not currently recommend steroids but I would suggest the pulmonary consult possible bronchoscopy to try to enhance this diagnosis clearly the AA Sittig fluid needs to be tapped not just enough for her for culture but at at least to get a sense or suggestion as to whether not this could be related to a cirrhotic liver and portal hypertension so chemistries need to be done of the A Sittig fluid including albumin and LDH probably amylase and carcinoembryonic antigen and then of course white count and culture but from a cardiology standpoint in in case the peripheral fluid is is based on acute on chronic cor pulmonale from his extensive lung disease possible placement of central venous pressure catheter to establish mean right atrial pressure and we could even have Interventional Radiology place a catheter and do a wedged hepatic venous pressure and then on wedged hepatic venous pressure to see if there is a trans sinusoidal gradient consistent with portal hypertension Time Spent With Patient Time: Total time managing care of this patient today ____ minutes.
--- NOTE | 2022-04-04 16:00 | PC.NURSE ---
report recieved from overnight RN, medical equipment technician per JUN. Pt c/o SOB and feeling scared/anxious - requiring 10L oxymask / Pinon to sustain sats in 90s. notified, new order for xanax and zofran administered per JUN. [place] catheter placed at 1330 for accurate I+O. Pt reports feeling a little better , resting quietly in bed, noted to be more lethargic. Call tanner within reach, hourly rounding, bed alarm on, camera in room.
[2022-04-04 16:09] LABS: Glucose, Whole Blood 199 mg/dL (60-115)
[2022-04-04] MEDS: Insulin Lispro 100 UNIT/ML 3 ML VIAL SUBCUT (16:41)
[2022-04-04] MEDS: Azithromycin 500 MG in 0.9 % Sodium Chloride 250 ML 125 MG IV (16:41)
[2022-04-04] MEDS: cefTRIAXone sodium 1 GM in 0.9 % Sodium Chloride 50 ML IV (16:58)
--- NOTE | 2022-04-04 19:07 | P.PNNP_ITS ---
Subjective Subjective Date of Service: 04/04/22 Interval history: seen and exmiend, events noted Physical Exam Vital Signs: Vital Signs: Last Vital Signs Temp 98.0 F 04/04/22 15:40 Pulse 66 04/04/22 16:51 Resp 18 04/04/22 15:40 BP 119/60 04/04/22 16:51 Pulse Ox 97 04/04/22 15:40 O2 Del Method 04/04/22 15:40 O2 Flow Rate 9 04/04/22 15:40 BMI result Body Mass Index 25.9 Const: General: no acute distress, awake and confusion Nutritional Appearance: well nourished Orientation/consciousness: confusion HEENT: Head: Yes normocephalic and Yes atraumatic Resp: Other: Breathing comfortably on room air, no respiratory distress GI: Other: softly distended without tympany to percussion. Decreased bowel sounds. Mild tenderness to deep palpation in the left lower quadrant without rebound, guarding or rigidity. Skin: Other: Warm, dry, no rash Neuro: General: confusion Objective Data Labs CBC & Chem 7: 04/02/22 06:19 04/04/22 06:17 Labs: Laboratory Results - last 24 hr 04/03/22 04/04/22 04/04/22 20:05 06:17 07:45 ESR PT INR APTT VBG pH VBG pCO2 VBG pO2 VBG HCO3 VBG O2 Saturation VBG Base Excess Sodium 142 Potassium 4.5 Chloride 111 H Carbon Dioxide 18 L Anion Gap 18 BUN 31 H Creatinine 1.38 Estim Creat Clear Calc 43.4 Estimated GFR 50 POC Glucose 130 H 93 Random Glucose 93 Calcium 8.6 Total Bilirubin 0.7 Direct Bilirubin 0.3 AST 62 H ALT 33 Alkaline Phosphatase 166 H Ammonia Total Protein 5.5 L Albumin 3.2 L Rheumatoid Factor Respiratory Panel Man Adenovirus (Rapid PCR) B.pert (TEM-PCR) B.parapertussis DNA PCR C. pneumoniae DNA (PCR) Coronavirus OC43 (PCR) Coronavirus HKU1 (PCR) Coronavirus 229E (PCR) Coronavirus NL63 (PCR) Human Metapneumovir PCR Influenza A (RT-PCR) Influenza B (RT-PCR) M. pneumoniae (PCR) Parainfluenza 1 (PCR) Parainfluenza 2 (PCR) Parainfluenza 3 (PCR) Parainfluenza 4 (PCR) RSV (PCR) Entero/Rhino (PCR) SARS-CoV-2 RNA (RT-PCR) 04/04/22 04/04/22 04/04/22 11:12 11:12 11:20 ESR PT 18.4 H INR 1.6 H APTT 36.9 H VBG pH 7.31 L VBG pCO2 33 VBG pO2 120 VBG HCO3 16 L VBG O2 Saturation 98.0 VBG Base Excess -8.3 Sodium Potassium Chloride Carbon Dioxide Anion Gap BUN Creatinine Estim Creat Clear Calc Estimated GFR POC Glucose Random Glucose Calcium Total Bilirubin Direct Bilirubin AST ALT Alkaline Phosphatase Ammonia 33 Total Protein Albumin Rheumatoid Factor Respiratory Panel Man Adenovirus (Rapid PCR) B.pert (TEM-PCR) B.parapertussis DNA PCR C. pneumoniae DNA (PCR) Coronavirus OC43 (PCR) Coronavirus HKU1 (PCR) Coronavirus 229E (PCR) Coronavirus NL63 (PCR) Human Metapneumovir PCR Influenza A (RT-PCR) Influenza B (RT-PCR) M. pneumoniae (PCR) Parainfluenza 1 (PCR) Parainfluenza 2 (PCR) Parainfluenza 3 (PCR) Parainfluenza 4 (PCR) RSV (PCR) Entero/Rhino (PCR) SARS-CoV-2 RNA (RT-PCR) 04/04/22 04/04/22 04/04/22 11:51 12:32 12:33 ESR 25 H PT INR APTT VBG pH VBG pCO2 VBG pO2 VBG HCO3 VBG O2 Saturation VBG Base Excess Sodium Potassium Chloride Carbon Dioxide Anion Gap BUN Creatinine Estim Creat Clear Calc Estimated GFR POC Glucose 145 H Random Glucose Calcium Total Bilirubin Direct Bilirubin AST ALT Alkaline Phosphatase Ammonia Total Protein Albumin Rheumatoid Factor 15.6 H Respiratory Panel Man Adenovirus (Rapid PCR) B.pert (TEM-PCR) B.parapertussis DNA PCR C. pneumoniae DNA (PCR) Coronavirus OC43 (PCR) Coronavirus HKU1 (PCR) Coronavirus 229E (PCR) Coronavirus NL63 (PCR) Human Metapneumovir PCR Influenza A (RT-PCR) Influenza B (RT-PCR) M. pneumoniae (PCR) Parainfluenza 1 (PCR) Parainfluenza 2 (PCR) Parainfluenza 3 (PCR) Parainfluenza 4 (PCR) RSV (PCR) Entero/Rhino (PCR) SARS-CoV-2 RNA (RT-PCR) 04/04/22 04/04/22 13:00 16:02 ESR PT INR APTT VBG pH VBG pCO2 VBG pO2 VBG HCO3 VBG O2 Saturation VBG Base Excess Sodium Potassium Chloride Carbon Dioxide Anion Gap BUN Creatinine Estim Creat Clear Calc Estimated GFR POC Glucose 199 H Random Glucose Calcium Total Bilirubin Direct Bilirubin AST ALT Alkaline Phosphatase Ammonia Total Protein Albumin Rheumatoid Factor Respiratory Panel Man See Note Adenovirus (Rapid PCR) Not Detected B.pert (TEM-PCR) Not Detected B.parapertussis DNA PCR Not Detected C. pneumoniae DNA (PCR) Not Detected Coronavirus OC43 (PCR) Not Detected Coronavirus HKU1 (PCR) Not Detected Coronavirus 229E (PCR) Not Detected Coronavirus NL63 (PCR) Not Detected Human Metapneumovir PCR Not Detected Influenza A (RT-PCR) Not Detected Influenza B (RT-PCR) Not Detected M. pneumoniae (PCR) Not Detected Parainfluenza 1 (PCR) Not Detected Parainfluenza 2 (PCR) Not Detected Parainfluenza 3 (PCR) Not Detected Parainfluenza 4 (PCR) Not Detected RSV (PCR) Not Detected Entero/Rhino (PCR) Not Detected SARS-CoV-2 RNA (RT-PCR) Not Detected Microbiology Microbiology Results: Microbiology 04/01/22 12:27 Blood - Venous Blood Culture - Preliminary No growth after 48 hours. 04/01/22 12:27 Blood - Venous Blood Culture - Preliminary No growth after 48 hours. Procedures Date of Service Date of Service: 04/04/22 Assessment & Plan Assessment and plan (1) Acute hypoxemic respiratory failure: Status: Acute (2) CKD (chronic kidney disease): Status: Acute (3) Pneumonia: Status: Acute (4) CHANTE (acute kidney injury): Status: Acute Plan 77-YEAR-OLD WITH MULTIPLE CHRONIC MEDICAL PROBLEMS, ADMITTED WITH ACUTE KIDNEY INJURY, NON-ANION GAP METABOLIC ACIDOSIS AND NEWLY DISCOVERED ASCITES WITH A HISTORY OF HEAVY NEAR-NEPHROTIC RANGE PROTEINURIA IN THE PAST. CHANTE: resolving with IVF c/w pre-renal; peak Scr 1.96 CKD 3: BSL Scr 1.2-1.4 Heavy Uprot: c/w DN Ascites apparently new med problem: [facility] REC: cont to track UOP/renal func; avoid Ntoxins; check sero as ordered, Dx Tap schedueld ? Time Spent With Patient Time: Total time managing care of this patient today ____ minutes. Progress Note: Quality Stroke Does the patient have a stroke diagnosis?: No
[2022-04-04 19:40] LABS: Glucose, Whole Blood 123 mg/dL (60-115)
[2022-04-04] MEDS: Atorvastatin Calcium 10 MG TABLET PO (19:50)
[2022-04-04] MEDS: Mirtazapine 7.5 MG TABLET PO (19:50)
[2022-04-04 19:54] LABS: Glucose, Whole Blood 108 mg/dL (60-115)
[2022-04-04] MEDS: Morphine Sulfate 4 MG/ML CARTRIDGE IVPUSH (21:05)
[2022-04-04 22:10] LABS: B Type Natriuretic Peptide 1942 pg/mL (<100)
[2022-04-04] MEDS: Furosemide 40 MG/4 ML VIAL IVPUSH (22:29)
[2022-04-05] VITALS (24 sets, daily range): BP systolic 76–118; BP diastolic 37–68; PULSE 36–97; RESP 12–31; TEMP 34.6–35.4; O2SAT 72–100
--- NOTE | 2022-04-05 | ECG_ITS ---
Test Reason : post code Blood Pressure : / mmHG Vent. Rate : 050 BPM Atrial Rate : 000 BPM P-R Int : 000 ms QRS Dur : 106 ms QT Int : 428 ms P-R-T Axes : 000 023 175 degrees QTc Int : [address] & T wave abnormality, consider lateral ischemia Abnormal ECG When compared with ECG of 01-APR-2022 12:22, Junctional rhythm has replaced Sinus rhythm Vent. rate has decreased BY 32 BPM QT has shortened Referred By: Mirtha Araya Electronically Signed By:Napoleon Marquez
[2022-04-05] MEDS: Albumin Human 25 % 100 ML IV ×4 (02:04→20:12)
--- NOTE | 2022-04-05 03:00 | PC.NURSE ---
04/04/222029 pt c/o sob 02sat in low 80's on 10L pinon.Increased o2 to 15L 02sat still in 80's.Lungs with exp wheezes with faint crackles at bases.Resp placed pt on 100% non rebreather.02sat-94%.very anxious. notified of above ordered morphine 4mg iv given at 2100.rectal temp-92.0 ordered bear hugger.stat cxr and stat labs ordered.lasix 40mg iv x 1 dose ordered given at 2229.BNP-1942.daily lasix increased to 40mg iv bid.2199 resp placed pt back on 10L Pinon sat-91%.0000 rectal temp-93.3 pt remains on bear hugger.presently pt is on 12L pinon sat 95%.resting comfortably.
[2022-04-05] MEDS: Levothyroxine Sodium 25 MCG TABLET PO (05:22)
[2022-04-05 06:32] LABS: Hematocrit 27.1 % (42.0-52.0); Hemoglobin 8.4 g/dl (14.0-18.0)
--- NOTE | 2022-04-05 07:00 | CA_ITS ---
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 Study Quality: Fair, contrast used Conclusions: - The left ventricular systolic function is normal. The visually estimated ejection fraction is between 60-65%. - Mildly increased right ventricular cavity size. There is mildly decreased right ventricular systolic function. - There is mild dilatation of the ascending aorta measuring 3.60 cm. Findings Procedure Information Contrast agent, definity, is being given per protocol without apparent complications. Left Ventricle Normal left ventricular cavity size. There is mildly increased left ventricular wall thickness. The left ventricular systolic function is normal. The visually estimated ejection fraction is between 60-65%. There is no evidence of regional wall motion abnormalities. Diastolic function is indeterminate on the basis of available data. Right Ventricle Mildly increased right ventricular cavity size. There is mildly decreased right ventricular systolic function. Atria The left atrium is mildly dilated. There is no evidence of interatrial shunt by color Doppler. RA is dilated. Aortic Valve There is a normal trileaflet aortic valve. There is no aortic valve stenosis. There is trace (trivial) aortic valve regurgitation. Mitral Valve The mitral valve appears normal. There is no mitral valve regurgitation. There is no mitral valve stenosis. Pulmonic Valve The pulmonic valve was not well visualized. Tricuspid Valve Normal tricuspid valve structure. There is mild tricuspid valve regurgitation. Indeterminate right atrial pressure. Moderate pulmonary hypertension is present. Great Vessels The pulmonary artery was not well visualized. There is mild dilatation of the ascending aorta measuring 3.60 cm. Venous The inferior vena cava is dilated and does not collapse with inspiration. The patient is intubated and on PPV. Cannot comment about the RA pressure acurately.. Pericardium/Pleural There is no evidence of pericardial effusion. Prior Study Comparison Changes noted compared to prior study dated: 07/28/2020. Mildly dilated RV with mildly reduced function. Moderate pulm hypertension. Measurements 2D Linear Measurements IVSd: 1.12 0.6-0.9/0.6-1.0 cm LVIDd: 4.70 3.9-5.3/4.2-5.9 cm LVIDd Index: 2.40 2.4-3.2/2.2-3.1 cm/m2 LVIDs: 2.82 2.0-3.6 cm LVPWd: 1.20 0.7-1.1 cm LA Diam: 3.80 2.7-3.8/3.0-4.0 cm LAIDs Index: 1.94 1.5-2.3 cm/m2 LV Mass: 251.81 67-162/88-224 g LV Mass Index: 128.47 43-95/49-115 g/m2 LVOT Diam: 2.00 3.0+(-)1.3 cm 2D Systolic Function EF 4C: 68.30 >55% EF 2C: 64.90 >55% EF BiP: 67.20 >55% Mitral Valve MV Pk E: 0.98 MV Decel Time: 244.00 E'Lateral: 9.90 E'Medial: 7.51 E/E' Med: 13.10 E/E' Lat: 9.90 PHT: 70.00 MVA PHT: 3.14 Decel Mayes: 4.14 Aortic Valve AoV Pk Goran: 1.40 AoV Mn Goran: 0.79 AoV VTI: 0.30 AoV Pk Grad: 8.00 Aov Mn Grad: 3.00 CIARA Cont.VTI: 1.58 LVOT LVOT Pk Goran: 0.82 LVOT Mn Goran: 0.43 LVOT VTI: 0.15 LVOT Pk Grad: 3.00 LVOT Mn Grad: 1.00 LVOT Diam: 2.00 LVOT Area: 3.14 Diastolic Function MV Pk E: 0.98 E'Medial: 7.51 E/E' Med: 13.10 E' Laterial: 9.90 E/E' Lat: 9.90 Right Ventricle TAPSE (mm): 15.50 TVS' Goran: 10.70 Tricuspid Valve TR Pk Goran: 2.86 TR Pk Grad: 33.00 RA Press: 15.00 RVSP: 48.00 Great Vessels Aorta Sinus of Valsalva: 3.29 2.0-3.[address] Ridge: 2.20 1.7-3.4 cm Ao Asc: 3.60 2.1-3.4 cm Updated in Other Vendor System with Status of Final Napoleon Marquez MD electronically signed on 04/05/2022 4:57:49 PM with status of Final
[2022-04-05 07:13] LABS: Glucose, Whole Blood 91 mg/dL (60-115)
[2022-04-05] MEDS: Albuterol/Iprat 2.5/0.5MG 3 ML AMPUL.NEB INHALE ×2 (07:25→11:18)
[2022-04-05 07:52] LABS: VBG Base Excess -0.2 mmol/L; VBG HCO3 26 mmol/L (22-26); VBG pCO2 51 mmHg; VBG pH 7.31 (7.32-7.43); VBG pO2 76 mmHg
[2022-04-05 07:54] LABS: Venous Blood Gas Refer to POC result
[2022-04-05 08:13] LABS: B Type Natriuretic Peptide 2833 pg/mL (<100)
[2022-04-05 08:47] LABS: Anion Gap 17 (12-20); Blood Urea Nitrogen 32 mg/dL (9-16); Calcium 8.9 mg/dL (8.4-10.2); Carbon Dioxide 21 mmol/L (22-29); Chloride 110 mmol/L (96-108); Creatinine Clr Calc Pharmacy 37.9; Estimated Glomerular Filt Rate 43; Glucose Random 88 mg/dL (60-115); Potassium 3.5 mmol/L (3.3-5.1); Sodium 144 mmol/L (135-145)
[2022-04-05] MEDS: Furosemide 20 MG/2 ML VIAL 40 MG IVPUSH (08:52)
[2022-04-05] MEDS: Amiodarone HCL 200 MG TABLET PO (08:53)
[2022-04-05] MEDS: Cholecalciferol (Vitamin D3) 25 MCG TABLET PO (08:54)
[2022-04-05] MEDS: Metoprolol Succinate ER 50 MG TAB.ER.24H PO (08:55)
[2022-04-05] MEDS: 0.9 % Sodium Chloride Flush 3 ML SYRINGE IVFLUSH ×3 (08:55→21:18)
[2022-04-05] MEDS: Furosemide 200 MG in 0.9 % Sodium Chloride 80 ML IVCONT (11:01)
[2022-04-05] MEDS: timoloL maleate 0.5 % Oph Sol 5 ML DRBTL 1 DROP EYE-LEFT (11:01)
--- NOTE | 2022-04-05 12:02 | HO.PM.IMPN ---
Subjective Subjective Date of Service: 04/05/22 Interval History: Acute hypoxemic respiratory failure secondary to multifactorial(pneumonia ,possible CHF),ascitis Review of Systems Patient still short of breath, oxygen demand going up no fevers -mild hypotheramic improving deniesany chest pain or abd pain Physical Exam Vital Signs: Vital Signs: Last Vital Signs Temp 95.8 F L 04/05/22 05:04 Pulse 64 04/05/22 11:21 Resp 23 H 04/05/22 11:21 BP 112/68 04/05/22 07:30 Pulse Ox 85 L 04/05/22 07:30 O2 Del Method 04/05/22 07:30 O2 Flow Rate 6 04/05/22 07:30 BMI result Body Mass Index 25.9 ? Appearance: Alert.? Oriented X3.?somewhat sob.?on cpap. cvs: rrr, [id number] . res: air entry diminshed at bases , abd: no rebound or guarding ,mild soraness ,has ascitis, bs present. ext pulses present , no cyanosis ,has leg swellin neuro: axo3 , nonfocal Objective Data Active Medications Acetaminophen (Acetaminophen 325 Mg Tablet) 650 mg PO Q6H PRN PRN Reason: Pain, Mild (Pain Scale 1-3) Last Admin: 04/03/22 17:35 Dose: 650 mg Documented By: SETH Albuterol/Ipratropium (Albuterol/Iprat 2.5/0.5mg 3 Ml Ampul.Neb) 3 ml INHALE RQ4H WHILE AWAKE [facility] Last Admin: 04/05/22 11:18 Dose: 3 ml Documented By: HODA Amiodarone HCl (Amiodarone Hcl 200 Mg Tablet) 200 mg PO DAILY [facility] Last Admin: 04/05/22 08:53 Dose: 200 mg Documented By: MATTHEW Amlodipine Besylate (Amlodipine Besylate 10 Mg Tablet) 10 mg PO DAILY [facility]; Protocol Last Admin: 04/05/22 11:03 Dose: Not Given Documented By: MATTHEW Non-Admin Reason: Physician Held Med Apixaban (Apixaban 5 Mg Tablet) 5 mg PO BID [facility] Last Admin: 04/01/22 21:13 Dose: 5 mg Documented By: SINA Atorvastatin Calcium (Atorvastatin Calcium 10 Mg Tablet) 10 mg PO BEDTIME [facility] Last Admin: 04/04/22 19:50 Dose: 10 mg Documented By: TERI Clopidogrel Bisulfate (Clopidogrel Bisulfate 75 Mg Tablet) 75 mg PO DAILY [facility] Dextrose (Dextrose 50 % 25 Gm/50 Ml Syringe) 25 gm IVPUSH Q15M PRN; Protocol PRN Reason: per Hypoglycemia Standing Ord. Docusate Sodium (Docusate Sodium 100 Mg Capsule) 100 mg PO DAILY PRN PRN Reason: Constipation Last Admin: 04/03/22 20:38 Dose: 100 mg Documented By: DAMARI Docusate Sodium (Docusate Sodium 100 Mg Capsule) 100 mg PO BID [facility] Last Admin: 04/05/22 08:56 Dose: Not Given Documented By: MATTHEW Non-Admin Reason: NPO Glucose (Glucose Gel 15 Gm Gel..Gram.) 15 gm PO Q15M PRN; Protocol PRN Reason: per Hypoglycemia Standing Ord. Ceftriaxone Sodium 1 gm/ (Sodium Chloride) 50 mls @ 100 mls/hr IV Q24H [facility] Last Infusion: 04/04/22 17:29 Dose: 0 mls/hr Documented By: MIKY Azithromycin 500 mg/ Sodium (Chloride) 250 mls @ 125 mls/hr IV Q24H [facility] Last Infusion: 04/04/22 18:47 Dose: 0 mls/hr Documented By: MIKY Albumin Human (Kedbumin 25 %) 100 mls @ 100 mls/hr IV Q6H [facility] Stop: 04/06/22 03:29 Last Infusion: 04/05/22 11:01 Dose: 0 mls/hr Documented By: MATTHEW Furosemide 200 mg/ Sodium (Chloride) 100 mls @ 5 mls/hr IVCONT .Q20H [facility] Last Admin: 04/05/22 11:01 Dose: 10 mg/hr, 5 mls/hr Documented By: MATTHEW Insulin Human Lispro (Insulin Lispro 100 Unit/Ml 3 Ml Vial) 0 unit SUBCUT QIDACHS [facility]; Protocol Last Admin: 04/05/22 07:51 Dose: Not Given Documented By: MATTHEW Non-Admin Reason: No Insulin Coverage Lactulose (Lactulose 20 Gm/30 Ml Solution) 20 gm PO BID [facility] Last Admin: 04/05/22 11:01 Dose: Not Given Documented By: MATTHEW Non-Admin Reason: Physician Held Med Levothyroxine Sodium (Levothyroxine Sodium 25 Mcg Tablet) 25 mcg PO DAILY@0600 [facility] Last Admin: 04/05/22 05:22 Dose: 25 mcg Documented By: TERI Metoprolol Succinate (Metoprolol Succinate Er 50 Mg Tab.Er.24h) 50 mg PO DAILY [facility]; Protocol Last Admin: 04/05/22 08:55 Dose: 50 mg Documented By: MATTHEW Mirtazapine (Mirtazapine 7.5 Mg Tablet) 7.5 mg PO BEDTIME [facility] Last Admin: 04/04/22 19:50 Dose: 7.5 mg Documented By: TERI Ondansetron HCl (Ondansetron Hcl 4 Mg/2 Ml Vial) 4 mg IVPUSH Q8H PRN PRN Reason: Nausea and Vomiting Last Admin: 04/04/22 21:13 Dose: 4 mg Documented By: TERI Polyethylene Glycol (Polyethylene Glycol 3350 17 Gm Powd.Pack) 17 gm PO DAILY [facility] Last Admin: 04/05/22 11:03 Dose: Not Given Documented By: MATTHEW Non-Admin Reason: Physician Held Med Sodium Chloride (0.9 % Sodium Chloride Flush 3 Ml Syringe) 3 ml IVFLUSH QSHIFT [facility] Last Admin: 04/05/22 08:55 Dose: 3 ml Documented By: MATTHEW Timolol Maleate (Timolol Maleate 0.5 % Oph Spring 5 Ml Drbtl) 1 drop EYE-LEFT DAILY [facility] Last Admin: 04/05/22 11:01 Dose: 1 drop Documented By: MATTHEW Vitamin D (Cholecalciferol (Vitamin D3) 25 Mcg Tablet) 25 mcg PO DAILY [facility] Last Admin: 04/05/22 08:54 Dose: 25 mcg Documented By: MATTHEW Labs CBC & Chem 7: 04/05/22 05:57 04/05/22 07:39 Labs: Laboratory Results - last 24 hr 04/04/22 04/04/22 04/04/22 06:17 12:32 12:33 ESR 25 H VBG pH VBG pCO2 VBG pO2 VBG HCO3 VBG O2 Saturation VBG Base Excess Anion Gap Estim Creat Clear Calc Estimated GFR POC Glucose Random Glucose Calcium Total Bilirubin 0.7 Direct Bilirubin 0.3 AST 62 H ALT 33 Alkaline Phosphatase 166 H B-Natriuretic Peptide Total Protein 5.5 L Albumin 3.2 L Rheumatoid Factor 15.6 H Respiratory Panel Man Adenovirus (Rapid PCR) B.pert (TEM-PCR) B.parapertussis DNA PCR C. pneumoniae DNA (PCR) Coronavirus OC43 (PCR) Coronavirus HKU1 (PCR) Coronavirus 229E (PCR) Coronavirus NL63 (PCR) Human Metapneumovir PCR Influenza A (RT-PCR) Influenza B (RT-PCR) M. pneumoniae (PCR) Parainfluenza 1 (PCR) Parainfluenza 2 (PCR) Parainfluenza 3 (PCR) Parainfluenza 4 (PCR) RSV (PCR) Entero/Rhino (PCR) SARS-CoV-2 RNA (RT-PCR) 04/04/22 04/04/22 04/04/22 13:00 16:02 19:36 ESR VBG pH VBG pCO2 VBG pO2 VBG HCO3 VBG O2 Saturation VBG Base Excess Anion Gap Estim Creat Clear Calc Estimated GFR POC Glucose 199 H 123 H Random Glucose Calcium Total Bilirubin Direct Bilirubin AST ALT Alkaline Phosphatase B-Natriuretic Peptide Total Protein Albumin Rheumatoid Factor Respiratory Panel Man See Note Adenovirus (Rapid PCR) Not Detected B.pert (TEM-PCR) Not Detected B.parapertussis DNA PCR Not Detected C. pneumoniae DNA (PCR) Not Detected Coronavirus OC43 (PCR) Not Detected Coronavirus HKU1 (PCR) Not Detected Coronavirus 229E (PCR) Not Detected Coronavirus NL63 (PCR) Not Detected Human Metapneumovir PCR Not Detected Influenza A (RT-PCR) Not Detected Influenza B (RT-PCR) Not Detected M. pneumoniae (PCR) Not Detected Parainfluenza 1 (PCR) Not Detected Parainfluenza 2 (PCR) Not Detected Parainfluenza 3 (PCR) Not Detected Parainfluenza 4 (PCR) Not Detected RSV (PCR) Not Detected Entero/Rhino (PCR) Not Detected SARS-CoV-2 RNA (RT-PCR) Not Detected 04/04/22 04/04/22 04/05/22 19:51 21:18 07:06 ESR VBG pH VBG pCO2 VBG pO2 VBG HCO3 VBG O2 Saturation VBG Base Excess Anion Gap Estim Creat Clear Calc Estimated GFR POC Glucose 108 91 Random Glucose Calcium Total Bilirubin Direct Bilirubin AST ALT Alkaline Phosphatase B-Natriuretic Peptide 1942 H Total Protein Albumin Rheumatoid Factor Respiratory Panel Man Adenovirus (Rapid PCR) B.pert (TEM-PCR) B.parapertussis DNA PCR C. pneumoniae DNA (PCR) Coronavirus OC43 (PCR) Coronavirus HKU1 (PCR) Coronavirus 229E (PCR) Coronavirus NL63 (PCR) Human Metapneumovir PCR Influenza A (RT-PCR) Influenza B (RT-PCR) M. pneumoniae (PCR) Parainfluenza 1 (PCR) Parainfluenza 2 (PCR) Parainfluenza 3 (PCR) Parainfluenza 4 (PCR) RSV (PCR) Entero/Rhino (PCR) SARS-CoV-2 RNA (RT-PCR) 04/05/22 04/05/22 04/05/22 07:39 07:39 07:46 ESR VBG pH 7.31 L VBG pCO2 51 VBG pO2 76 VBG HCO3 26 VBG O2 Saturation 94.0 VBG Base Excess -0.2 Anion Gap 17 Estim Creat Clear Calc 37.9 Estimated GFR 43 POC Glucose Random Glucose 88 Calcium 8.9 Total Bilirubin Direct Bilirubin AST ALT Alkaline Phosphatase B-Natriuretic Peptide 2833 H Total Protein Albumin Rheumatoid Factor Respiratory Panel Man Adenovirus (Rapid PCR) B.pert (TEM-PCR) B.parapertussis DNA PCR C. pneumoniae DNA (PCR) Coronavirus OC43 (PCR) Coronavirus HKU1 (PCR) Coronavirus 229E (PCR) Coronavirus NL63 (PCR) Human Metapneumovir PCR Influenza A (RT-PCR) Influenza B (RT-PCR) M. pneumoniae (PCR) Parainfluenza 1 (PCR) Parainfluenza 2 (PCR) Parainfluenza 3 (PCR) Parainfluenza 4 (PCR) RSV (PCR) Entero/Rhino (PCR) SARS-CoV-2 RNA (RT-PCR) Assessment and Plan (1) Acute hypoxemic respiratory failure: Status: Acute (2) Abdominal ascites: Status: Acute (3) Pneumonia: Status: Acute (4) CHANTE (acute kidney injury): Status: Acute Plan 76-year-old male with a PMH significant for diabetes with diabetic foot ulcers and infections in the past, left toe amputations, HTN, history of Afib on Eliquis, HLD, and history of peripheral vascular disease who presents to the ED from home via ambulance due to generalized weakness, fall, and confusion. Pt will be admitted for treatment for dehydration, CHANTE, and possible pneumonia. acute hypoxemic respiratory failure multifactorial- community acquired pneumonia,chf,ascitis overnight oxygen demad going up,leukocytosis improving,blood culture neg@48hrs on iv antibiiotics ,lasix drip ,albumin,cpap/oxygen patient pulled off his cpap -went into repiratory arrest (sats drops quickly after he pulled off cpap)-code blue called :patient was breifly recusitated -RASC achieved /intubated : subsequently transferred to ICU. # possible chf -etiology unclear ,CHANTE on possible ckd 3. increased sob,increasin elevated bnp . started on iv lasix drip,albumin need ascitis tap. # abdominal uuzx-vahpistjfpknyt-sqgamwqbbesr/ascitis CT of abdomen: ascitis ,diverticulosis ,constipation-on luxatives -producing bm. Ascitis : multifactorial need further workup ua,electrolytes ascitis ?liver dis added albumin need hold plavix/eliquis. # diabetes -- hold metformin -- ssi # paroxysmal AFib hold? Eliquis,plavix -need ascitis tap and also on metoprolol. # history of PAD - continue Plavix # hypothyroidism - continue levothyroxine Full code inpatient need :patient had code blue -rscusitated -acute hypoxemic respiratory failure multifactorial-community acquired pneumonia,chf ,ascitis -need iv antibiotics,lasix drip? ,dignostic/therapeutic paracentesis. his updated . Time Spent With Patient Time: Total time managing care of this patient today ____ minutes. Quality Stroke Does the patient have a stroke diagnosis?: No VTE Prior VTE?: No VTE Risk Level:: Medical - moderate - high VTE Device Contraindication: Treatment Not Indicated VTE Drug Contraindication: N/A - Med Ordered
[2022-04-05 12:36] LABS: Glucose, Whole Blood 91 mg/dL (60-115)
--- NOTE | 2022-04-05 12:40 | P.CONCA_ITS ---
History of Present Illness History of Present Illness Date of Service: 04/05/22 Requesting physician: Scott Silva Chief complaint: Congestive heart failure Narrative: 77-year-old gentleman who we have been asked to assess for congestive heart failure. He has past medical history significant for diabetes, diabetic foot also infection, to amputation, hypertension, history of atrial fibrillation, hyperlipidemia peripheral vascular disease. He is presenting with generalized weakness, fall and confusion. He has hypoxemic respiratory failure and has been requiring increasing level of oxygen. Patient was seen on noninvasive positive- pressure ventilation. He was denying any chest discomfort. He was saying that he is thirsty and hungry and wanted to get off the noninvasive positive pressure ventilation. He has been on diuretics. He has background of chronic kidney disease with acute kidney injury on this admission along with ascites. He was being started on Lasix drip. [facility] Past Medical History Medical History Abscess of right foot Anxiety and depression Asthma Atrial fibrillation Atrial fibrillation with rapid ventricular response Avascular necrosis of bone of hip Cellulitis Coronary artery disease Diabetic foot ulcer Diabetic nephropathy Diabetic neuropathy Diverticular disease DMII (diabetes mellitus, type 2) Hypercholesterolemia Hypertension Open wound Osteomyelitis of foot Osteomyelitis of foot Osteomyelitis of toe PAD (peripheral artery disease) Preoperative cardiovascular examination Thrombocytopenia Tobacco abuse Tubular adenoma of colon Type 2 diabetes mellitus with diabetic foot infection Type 2 diabetes mellitus with hyperglycemia Type 2 diabetes mellitus with peripheral artery disease Vitamin D deficiency Family History Family History Father Diabetes Hypertension CVD (cardiovascular disease) Stroke Mother CVD (cardiovascular disease) Hypertension Cancer Sister No problems noted. Son Stroke Surgical History Surgical History Amputated toe of right foot Amputation finger History of cataract surgery History of surgery Social History Social History Household Members: Spouse and Children Household Members Other:: 4 Housing: House Do you presently have visiting nurse or other home services: Yes Alcohol intake: former Patient Tobacco Use Status: Former Tobacco user Quit Date: 4 months ago Tobacco use type: Cigarette Cigarettes Per Day: 7 Years Smoked: 09/2020 stopped e-Cigarette/Vaping Use: Never Used Second Hand Smoke Exposure: No Advance Directives Date on File: 07/24/20 service: No Current occupational status: retired Cognitive needs: No Hearing needs: No Vision needs: Yes Meds Allergies Allergy/AdvReac Type Severity Reaction Status Date / Time No Known Allergies Allergy Mild Verified 12/30/21 09:11 Active Medications: Current Medications Acetaminophen (Acetaminophen 325 Mg Tablet) 650 mg PO Q6H PRN PRN Reason: Pain, Mild (Pain Scale 1-3) Last Admin: 04/03/22 17:35 Dose: 650 mg Albuterol/Ipratropium (Albuterol/Iprat 2.5/0.5mg 3 Ml Ampul.Neb) 3 ml INHALE RQ4H WHILE AWAKE [facility] Last Admin: 04/05/22 11:18 Dose: 3 ml Amiodarone HCl (Amiodarone Hcl 200 Mg Tablet) 200 mg PO DAILY [facility] Last Admin: 04/05/22 08:53 Dose: 200 mg Amlodipine Besylate (Amlodipine Besylate 10 Mg Tablet) 10 mg PO DAILY [facility]; Protocol Last Admin: 04/05/22 11:03 Dose: Not Given Apixaban (Apixaban 5 Mg Tablet) 5 mg PO BID [facility] Last Admin: 04/01/22 21:13 Dose: 5 mg Atorvastatin Calcium (Atorvastatin Calcium 10 Mg Tablet) 10 mg PO BEDTIME [facility] Last Admin: 04/04/22 19:50 Dose: 10 mg Clopidogrel Bisulfate (Clopidogrel Bisulfate 75 Mg Tablet) 75 mg PO DAILY [facility] Dextrose (Dextrose 50 % 25 Gm/50 Ml Syringe) 25 gm IVPUSH Q15M PRN; Protocol PRN Reason: per Hypoglycemia Standing Ord. Docusate Sodium (Docusate Sodium 100 Mg Capsule) 100 mg PO DAILY PRN PRN Reason: Constipation Last Admin: 04/03/22 20:38 Dose: 100 mg Docusate Sodium (Docusate Sodium 100 Mg Capsule) 100 mg PO BID [facility] Last Admin: 04/05/22 08:56 Dose: Not Given Glucose (Glucose Gel 15 Gm Gel..Gram.) 15 gm PO Q15M PRN; Protocol PRN Reason: per Hypoglycemia Standing Ord. Ceftriaxone Sodium 1 gm/ (Sodium Chloride) 50 mls @ 100 mls/hr IV Q24H [facility] Last Infusion: 04/04/22 17:29 Dose: Infused Azithromycin 500 mg/ Sodium (Chloride) 250 mls @ 125 mls/hr IV Q24H [facility] Last Infusion: 04/04/22 18:47 Dose: Infused Albumin Human (Kedbumin 25 %) 100 mls @ 100 mls/hr IV Q6H [facility] Stop: 04/06/22 03:29 Last Infusion: 04/05/22 11:01 Dose: Infused Furosemide 200 mg/ Sodium (Chloride) 100 mls @ 5 mls/hr IVCONT .Q20H [facility] Last Admin: 04/05/22 11:01 Dose: 10 mg/hr, 5 mls/hr Insulin Human Lispro (Insulin Lispro 100 Unit/Ml 3 Ml Vial) 0 unit SUBCUT QIDACHS [facility]; Protocol Last Admin: 04/05/22 07:51 Dose: Not Given Lactulose (Lactulose 20 Gm/30 Ml Solution) 20 gm PO BID [facility] Last Admin: 04/05/22 11:01 Dose: Not Given Levothyroxine Sodium (Levothyroxine Sodium 25 Mcg Tablet) 25 mcg PO DAILY@0600 [facility] Last Admin: 04/05/22 05:22 Dose: 25 mcg Metoprolol Succinate (Metoprolol Succinate Er 50 Mg Tab.Er.24h) 50 mg PO DAILY [facility]; Protocol Last Admin: 04/05/22 08:55 Dose: 50 mg Mirtazapine (Mirtazapine 7.5 Mg Tablet) 7.5 mg PO BEDTIME [facility] Last Admin: 04/04/22 19:50 Dose: 7.5 mg Ondansetron HCl (Ondansetron Hcl 4 Mg/2 Ml Vial) 4 mg IVPUSH Q8H PRN PRN Reason: Nausea and Vomiting Last Admin: 04/04/22 21:13 Dose: 4 mg Polyethylene Glycol (Polyethylene Glycol 3350 17 Gm Powd.Pack) 17 gm PO DAILY [facility] Last Admin: 04/05/22 11:03 Dose: Not Given Sodium Chloride (0.9 % Sodium Chloride Flush 3 Ml Syringe) 3 ml IVFLUSH QSHIFT [facility] Last Admin: 04/05/22 08:55 Dose: 3 ml Timolol Maleate (Timolol Maleate 0.5 % Oph Spring 5 Ml Drbtl) 1 drop EYE-LEFT DAILY [facility] Last Admin: 04/05/22 11:01 Dose: 1 drop Vitamin D (Cholecalciferol (Vitamin D3) 25 Mcg Tablet) 25 mcg PO DAILY [facility] Last Admin: 04/05/22 08:54 Dose: 25 mcg Home Medications Medication Instructions Recorded Confirmed Last Taken Type cholecalciferol (vitamin D3) 25 25 mcg PO DAILY 04/14/20 04/01/22 02/21/22 History mcg (1,000 unit) capsule timolol maleate 0.5 % eye drops 1 drp ophthalmic-Left DAILY 08/21/20 04/01/22 02/21/22 History levothyroxine 25 mcg tablet 25 mcg PO DAILY@0600 02/21/22 04/01/22 02/20/22 History (Synthroid) Physical Exam Vital Signs: Vital Signs: Last Vital Signs Temp 95.8 F L 04/05/22 05:04 Pulse 64 04/05/22 11:21 Resp 23 H 04/05/22 11:21 BP 112/68 04/05/22 07:30 Pulse Ox 85 L 04/05/22 07:30 O2 Del Method 04/05/22 07:30 O2 Flow Rate 6 04/05/22 07:30 BMI result Body Mass Index 25.9 GENERAL APPEARANCE: On CPAP. NECK: no carotid bruit, positive jugular venous distention. SKIN: no suspicious lesions, warm and dry. HEART: no murmurs, regular rate and rhythm. LUNGS: Bibasilar crackles. ABDOMEN: Tense, distended, no tenderness. EXTREMITIES: no significant edema. PERIPHERAL PULSES: equal. Objective Labs and Meds Result diagrams: 04/05/22 05:57 04/05/22 07:39 Lab results: Laboratory Results - last 24 hr 04/04/22 04/04/22 04/04/22 12:32 12:33 13:00 Hgb Hct ESR 25 H VBG pH VBG pCO2 VBG pO2 VBG HCO3 VBG O2 Saturation VBG Base Excess Sodium Potassium Chloride Carbon Dioxide Anion Gap BUN Creatinine Estim Creat Clear Calc Estimated GFR POC Glucose Random Glucose Calcium B-Natriuretic Peptide Rheumatoid Factor 15.6 H Respiratory Panel Man See Note Adenovirus (Rapid PCR) Not Detected B.pert (TEM-PCR) Not Detected B.parapertussis DNA PCR Not Detected C. pneumoniae DNA (PCR) Not Detected Coronavirus OC43 (PCR) Not Detected Coronavirus HKU1 (PCR) Not Detected Coronavirus 229E (PCR) Not Detected Coronavirus NL63 (PCR) Not Detected Human Metapneumovir PCR Not Detected Influenza A (RT-PCR) Not Detected Influenza B (RT-PCR) Not Detected M. pneumoniae (PCR) Not Detected Parainfluenza 1 (PCR) Not Detected Parainfluenza 2 (PCR) Not Detected Parainfluenza 3 (PCR) Not Detected Parainfluenza 4 (PCR) Not Detected RSV (PCR) Not Detected Entero/Rhino (PCR) Not Detected SARS-CoV-2 RNA (RT-PCR) Not Detected 04/04/22 04/04/22 04/04/22 16:02 19:36 19:51 Hgb Hct ESR VBG pH VBG pCO2 VBG pO2 VBG HCO3 VBG O2 Saturation VBG Base Excess Sodium Potassium Chloride Carbon Dioxide Anion Gap BUN Creatinine Estim Creat Clear Calc Estimated GFR POC Glucose 199 H 123 H 108 Random Glucose Calcium B-Natriuretic Peptide Rheumatoid Factor Respiratory Panel Man Adenovirus (Rapid PCR) B.pert (TEM-PCR) B.parapertussis DNA PCR C. pneumoniae DNA (PCR) Coronavirus OC43 (PCR) Coronavirus HKU1 (PCR) Coronavirus 229E (PCR) Coronavirus NL63 (PCR) Human Metapneumovir PCR Influenza A (RT-PCR) Influenza B (RT-PCR) M. pneumoniae (PCR) Parainfluenza 1 (PCR) Parainfluenza 2 (PCR) Parainfluenza 3 (PCR) Parainfluenza 4 (PCR) RSV (PCR) Entero/Rhino (PCR) SARS-CoV-2 RNA (RT-PCR) 04/04/22 04/05/22 04/05/22 21:18 05:57 07:06 Hgb 8.4 L Hct 27.1 L ESR VBG pH VBG pCO2 VBG pO2 VBG HCO3 VBG O2 Saturation VBG Base Excess Sodium Potassium Chloride Carbon Dioxide Anion Gap BUN Creatinine Estim Creat Clear Calc Estimated GFR POC Glucose 91 Random Glucose Calcium B-Natriuretic Peptide 1942 H Rheumatoid Factor Respiratory Panel Man Adenovirus (Rapid PCR) B.pert (TEM-PCR) B.parapertussis DNA PCR C. pneumoniae DNA (PCR) Coronavirus OC43 (PCR) Coronavirus HKU1 (PCR) Coronavirus 229E (PCR) Coronavirus NL63 (PCR) Human Metapneumovir PCR Influenza A (RT-PCR) Influenza B (RT-PCR) M. pneumoniae (PCR) Parainfluenza 1 (PCR) Parainfluenza 2 (PCR) Parainfluenza 3 (PCR) Parainfluenza 4 (PCR) RSV (PCR) Entero/Rhino (PCR) SARS-CoV-2 RNA (RT-PCR) 04/05/22 04/05/22 04/05/22 07:39 07:39 07:46 Hgb Hct ESR VBG pH 7.31 L VBG pCO2 51 VBG pO2 76 VBG HCO3 26 VBG O2 Saturation 94.0 VBG Base Excess -0.2 Sodium 144 Potassium 3.5 D Chloride 110 H Carbon Dioxide 21 L Anion Gap 17 BUN 32 H Creatinine 1.58 H Estim Creat Clear Calc 37.9 Estimated GFR 43 POC Glucose Random Glucose 88 Calcium 8.9 B-Natriuretic Peptide 2833 H Rheumatoid Factor Respiratory Panel Man Adenovirus (Rapid PCR) B.pert (TEM-PCR) B.parapertussis DNA PCR C. pneumoniae DNA (PCR) Coronavirus OC43 (PCR) Coronavirus HKU1 (PCR) Coronavirus 229E (PCR) Coronavirus NL63 (PCR) Human Metapneumovir PCR Influenza A (RT-PCR) Influenza B (RT-PCR) M. pneumoniae (PCR) Parainfluenza 1 (PCR) Parainfluenza 2 (PCR) Parainfluenza 3 (PCR) Parainfluenza 4 (PCR) RSV (PCR) Entero/Rhino (PCR) SARS-CoV-2 RNA (RT-PCR) 04/05/22 12:33 Hgb Hct ESR VBG pH VBG pCO2 VBG pO2 VBG HCO3 VBG O2 Saturation VBG Base Excess Sodium Potassium Chloride Carbon Dioxide Anion Gap BUN Creatinine Estim Creat Clear Calc Estimated GFR POC Glucose 91 Random Glucose Calcium B-Natriuretic Peptide Rheumatoid Factor Respiratory Panel Man Adenovirus (Rapid PCR) B.pert (TEM-PCR) B.parapertussis DNA PCR C. pneumoniae DNA (PCR) Coronavirus OC43 (PCR) Coronavirus HKU1 (PCR) Coronavirus 229E (PCR) Coronavirus NL63 (PCR) Human Metapneumovir PCR Influenza A (RT-PCR) Influenza B (RT-PCR) M. pneumoniae (PCR) Parainfluenza 1 (PCR) Parainfluenza 2 (PCR) Parainfluenza 3 (PCR) Parainfluenza 4 (PCR) RSV (PCR) Entero/Rhino (PCR) SARS-CoV-2 RNA (RT-PCR) Imaging Radiologist's impression: Impressions Chest X-Ray 04/04/22 21:33 IMPRESSION: Worsening of diffuse airspace disease when compared to the chest radiograph on 04/01/2022. Assessment and Plan (1) Acute hypoxemic respiratory failure: Status: Acute Plan [age] gentleman with hypoxemic respiratory failure. He has background of lung disease. Clinically appears volume overloaded. Agree with diuretics. Should have repeat echocardiography to assess for any LV/RV dysfunction and to assess pulmonary pressures given presence of ascites. Monitor electrolytes closely. His EKG from April 01 is showing a QTC of 490 with nonspecific T- wave changes. IV diuretics for now. We will follow along with you as the echocardiogram is done. Thank you for allowing me to participate in the care of your patient. Please feel free to contact me if you have any questions. Time Spent With Patient Time: Total time managing care of this patient today ____ minutes. Procedures Date of Service Date of Service: 04/05/22
[2022-04-05] MEDS: DOPamine HCL/D5W 400 MG/250 ML PLAST..BAG 14.98 MG IVCONT (12:54)
[2022-04-05] MEDS: propofoL 1,000 MG/100 ML VIAL 14.38 MG IVCONT ×2 (13:11→18:19)
--- NOTE | 2022-04-05 13:45 | P.PCNCC_ITS ---
Procedures Date of Service Date of Service: 04/05/22 Central Line Placement Right IJ: Central Line Comments: The right neck was widely prepped and draped in full sterile fashion. Under US guidance, the right IJ vein was cannulated on the 1st pass of the 18 g thin wall needle, with return of dark, nonpulsatile blood. The wire was threaded without incident. The 16 cm x 7 [place]ic triple-lumen CVC was advanced into the vein up to the hub via the Seldinger technique without incident. There was good blood return x3. The catheter was sutured x2 and a Biopatch and dry sterile dressing were applied. Postop chest x-ray showed the line in good position with no pneumothorax. The patient tolerated the procedure well with no complications. Consent for Procedure: Emergent-no informed consent obtained Time out performed: Yes Sterile Technique Used: Yes Patient placed on monitor/pulse ox: Yes prep: mask, gown and gloves Central line prep: Chlorhexidine scrub and sterile drapes applied Ultrasound used for placement: Yes Central line lumen inserted: triple Post procedure: sutured in place, good blood return, all ports aspirated, flushed, capped and sterile dressing applied Post procedure x-ray: tip of catheter in good position and no pneumothorax seen Patient tolerated procedure: well and no complications Complications: none
[2022-04-05 14:33] LABS: Immunoglobulin G Subclass 1 442 mg/dL (382-929); Immunoglobulin G Subclass 2 93 mg/dL (241-700); Immunoglobulin G Subclass 3 33 mg/dL (22-178); Immunoglobulin G Subclass 4 29.1 mg/dL (4-86); Immunoglobulin G Total 683 mg/dL (600-1540)
[2022-04-05 14:52] LABS: Alanine Aminotransferase 29 U/L (0-40); Albumin Level 4.1 g/dL (3.5-5.0); Alkaline Phosphatase 125 U/L (39-117); Anion Gap 17 (12-20); Aspartate Amino Transferase 60 U/L (5-37); Bilirubin Total 0.9 mg/dL (0.0-1.0); Blood Urea Nitrogen 33 mg/dL (9-16); Calcium 8.5 mg/dL (8.4-10.2); Carbon Dioxide 19 mmol/L (22-29); Chloride 108 mmol/L (96-108); Estimated Glomerular Filt Rate 35; Glucose Random 192 mg/dL (60-115); Potassium 3.6 mmol/L (3.3-5.1); Sodium 140 mmol/L (135-145); Total Protein 5.9 g/dL (6.5-8.0)
[2022-04-05 15:00] LABS: B Type Natriuretic Peptide 2645 pg/mL (<100)
--- NOTE | 2022-04-05 15:00 | PM.CCPN ---
Subjective Subjective Date of Service: 04/05/22 Interval History: 77-year-old gentleman with underlying AFib, diabetes mellitus, PVD status post right transmetatarsal amputation admitted on 04/01/2022 with weakness, acute renal failure, and ascites with hospital course complicated by progressive hypoxemia and poor response to IV diuresis. Evaluated by critical care on 04/04/2022 for worsening hypoxemia , but deemed stable to remain on telemetry head. Patient initially seen at approximately 08:30 a.m. and noted to require supplemental oxygen via non-rebreather. Patient 7.5 L positive since admission with paracentesis plan but not performed, significant abdominal distension. Communicated at that time with patient's nurse and hospitalist that patient would significantly benefit from paracentesis with improvement in his respiratory mechanics and also from increase diuresis. Patient with development of brief respiratory arrest at approximately 12:30 p.m. after pulling of his CPAP mask with suspected down time of 5 minutes. CPR started and upon intubation patient resisting intubation. CPR continued for another around ( total of 2 rounds) and patient transferred intubated to intensive care unit. Required dopamine for symptomatic bradycardia. Patient agitated after CPR in ICU requiring initiation of propofol drip. Bedside paracentesis performed by IR with drainage of 2.5 L of ascitic fluid. Critical Care Time (minutes): 90 Physical Exam Vital Signs: Vital Signs: Last Vital Signs Temp 95.8 F L 04/05/22 05:04 Pulse 55 04/05/22 13:11 Resp 22 H 04/05/22 13:00 BP 113/50 L 04/05/22 13:11 Pulse Ox 92 04/05/22 13:00 O2 Del Method 04/05/22 13:00 O2 Flow Rate 6 04/05/22 07:30 FiO2 100 04/05/22 13:20 BMI result Body Mass Index 25.9 Const: General: no acute distress and other ( sedated on the vent) Eyes: Sclerae: sclerae normal Neck: Neck: Yes no lymphadenopathy, Yes trachea midline and Yes supple Resp: Auscultation: crackles ( diffuse bilateral) Cardio: Rate: regular rate Rhythm: regular rhythm Heart sounds: no gallops, no murmurs and no rubs GI: Palpation (GI): Soft to palpation and Other GI palpation findings present ( Nontender) Auscultation: normal bowel sounds Extrem: General: No clubbing, No cyanosis and Yes edema ( 2+ bilateral) Objective Data Labs CBC & Chem 7: 04/05/22 05:57 04/05/22 14:25 Labs: Laboratory Results - last 24 hr 04/04/22 04/04/22 04/04/22 12:32 13:00 16:02 Hgb Hct VBG pH VBG pCO2 VBG pO2 VBG HCO3 VBG O2 Saturation VBG Base Excess Sodium Potassium Chloride Carbon Dioxide Anion Gap BUN Creatinine Estim Creat Clear Calc Estimated GFR POC Glucose 199 H Random Glucose Calcium Total Bilirubin AST ALT Alkaline Phosphatase B-Natriuretic Peptide Total Protein Albumin IgG Total 683 IgG Subclass 1 442 IgG Subclass 2 93 L IgG Subclass 3 33 IgG Subclass 4 29.1 Respiratory Panel Man See Note Adenovirus (Rapid PCR) Not Detected B.pert (TEM-PCR) Not Detected B.parapertussis DNA PCR Not Detected C. pneumoniae DNA (PCR) Not Detected Coronavirus OC43 (PCR) Not Detected Coronavirus HKU1 (PCR) Not Detected Coronavirus 229E (PCR) Not Detected Coronavirus NL63 (PCR) Not Detected Human Metapneumovir PCR Not Detected Influenza A (RT-PCR) Not Detected Influenza B (RT-PCR) Not Detected M. pneumoniae (PCR) Not Detected Parainfluenza 1 (PCR) Not Detected Parainfluenza 2 (PCR) Not Detected Parainfluenza 3 (PCR) Not Detected Parainfluenza 4 (PCR) Not Detected RSV (PCR) Not Detected Entero/Rhino (PCR) Not Detected SARS-CoV-2 RNA (RT-PCR) Not Detected 04/04/22 04/04/22 04/04/22 19:36 19:51 21:18 Hgb Hct VBG pH VBG pCO2 VBG pO2 VBG HCO3 VBG O2 Saturation VBG Base Excess Sodium Potassium Chloride Carbon Dioxide Anion Gap BUN Creatinine Estim Creat Clear Calc Estimated GFR POC Glucose 123 H 108 Random Glucose Calcium Total Bilirubin AST ALT Alkaline Phosphatase B-Natriuretic Peptide 1942 H Total Protein Albumin IgG Total IgG Subclass 1 IgG Subclass 2 IgG Subclass 3 IgG Subclass 4 Respiratory Panel Man Adenovirus (Rapid PCR) B.pert (TEM-PCR) B.parapertussis DNA PCR C. pneumoniae DNA (PCR) Coronavirus OC43 (PCR) Coronavirus HKU1 (PCR) Coronavirus 229E (PCR) Coronavirus NL63 (PCR) Human Metapneumovir PCR Influenza A (RT-PCR) Influenza B (RT-PCR) M. pneumoniae (PCR) Parainfluenza 1 (PCR) Parainfluenza 2 (PCR) Parainfluenza 3 (PCR) Parainfluenza 4 (PCR) RSV (PCR) Entero/Rhino (PCR) SARS-CoV-2 RNA (RT-PCR) 04/05/22 04/05/22 04/05/22 05:57 07:06 07:39 Hgb 8.4 L Hct 27.1 L VBG pH VBG pCO2 VBG pO2 VBG HCO3 VBG O2 Saturation VBG Base Excess Sodium 144 Potassium 3.5 D Chloride 110 H Carbon Dioxide 21 L Anion Gap 17 BUN 32 H Creatinine 1.58 H Estim Creat Clear Calc 37.9 Estimated GFR 43 POC Glucose 91 Random Glucose 88 Calcium 8.9 Total Bilirubin AST ALT Alkaline Phosphatase B-Natriuretic Peptide Total Protein Albumin IgG Total IgG Subclass 1 IgG Subclass 2 IgG Subclass 3 IgG Subclass 4 Respiratory Panel Man Adenovirus (Rapid PCR) B.pert (TEM-PCR) B.parapertussis DNA PCR C. pneumoniae DNA (PCR) Coronavirus OC43 (PCR) Coronavirus HKU1 (PCR) Coronavirus 229E (PCR) Coronavirus NL63 (PCR) Human Metapneumovir PCR Influenza A (RT-PCR) Influenza B (RT-PCR) M. pneumoniae (PCR) Parainfluenza 1 (PCR) Parainfluenza 2 (PCR) Parainfluenza 3 (PCR) Parainfluenza 4 (PCR) RSV (PCR) Entero/Rhino (PCR) SARS-CoV-2 RNA (RT-PCR) 04/05/22 04/05/22 04/05/22 07:39 07:46 12:33 Hgb Hct VBG pH 7.31 L VBG pCO2 51 VBG pO2 76 VBG HCO3 26 VBG O2 Saturation 94.0 VBG Base Excess -0.2 Sodium Potassium Chloride Carbon Dioxide Anion Gap BUN Creatinine Estim Creat Clear Calc Estimated GFR POC Glucose 91 Random Glucose Calcium Total Bilirubin AST ALT Alkaline Phosphatase B-Natriuretic Peptide 2833 H Total Protein Albumin IgG Total IgG Subclass 1 IgG Subclass 2 IgG Subclass 3 IgG Subclass 4 Respiratory Panel Man Adenovirus (Rapid PCR) B.pert (TEM-PCR) B.parapertussis DNA PCR C. pneumoniae DNA (PCR) Coronavirus OC43 (PCR) Coronavirus HKU1 (PCR) Coronavirus 229E (PCR) Coronavirus NL63 (PCR) Human Metapneumovir PCR Influenza A (RT-PCR) Influenza B (RT-PCR) M. pneumoniae (PCR) Parainfluenza 1 (PCR) Parainfluenza 2 (PCR) Parainfluenza 3 (PCR) Parainfluenza 4 (PCR) RSV (PCR) Entero/Rhino (PCR) SARS-CoV-2 RNA (RT-PCR) 04/05/22 14:25 Hgb Hct VBG pH VBG pCO2 VBG pO2 VBG HCO3 VBG O2 Saturation VBG Base Excess Sodium 140 Potassium 3.6 Chloride 108 Carbon Dioxide 19 L Anion Gap 17 BUN 33 H Creatinine 1.87 H Estim Creat Clear Calc 32.0 Estimated GFR 35 POC Glucose Random Glucose 192 H Calcium 8.5 Total Bilirubin 0.9 AST 60 H ALT 29 Alkaline Phosphatase 125 H B-Natriuretic Peptide Total Protein 5.9 L Albumin 4.1 IgG Total IgG Subclass 1 IgG Subclass 2 IgG Subclass 3 IgG Subclass 4 Respiratory Panel Man Adenovirus (Rapid PCR) B.pert (TEM-PCR) B.parapertussis DNA PCR C. pneumoniae DNA (PCR) Coronavirus OC43 (PCR) Coronavirus HKU1 (PCR) Coronavirus 229E (PCR) Coronavirus NL63 (PCR) Human Metapneumovir PCR Influenza A (RT-PCR) Influenza B (RT-PCR) M. pneumoniae (PCR) Parainfluenza 1 (PCR) Parainfluenza 2 (PCR) Parainfluenza 3 (PCR) Parainfluenza 4 (PCR) RSV (PCR) Entero/Rhino (PCR) SARS-CoV-2 RNA (RT-PCR) Microbiology Microbiology Results: Microbiology 04/01/22 12:27 Blood - Venous Blood Culture - Preliminary No growth after 48 hours. 04/01/22 12:27 Blood - Venous Blood Culture - Preliminary No growth after 48 hours. Progress Note: A&P Assessment and plan (1) Respiratory arrest: Status: Acute (2) Acute respiratory failure: Status: Acute (3) CHANTE (acute kidney injury): Status: Acute (4) PAD (peripheral artery disease): Status: Acute (5) DMII (diabetes mellitus, type 2): Status: Acute (6) Type 2 diabetes mellitus with peripheral artery disease: Status: Acute (7) Acute kidney injury superimposed on CKD: Status: Acute (8) Pulmonary edema with congestive heart failure: Status: Acute (9) Symptomatic bradycardia: Status: Acute Plan Assessment: 77-year-old gentleman has multiple medical issues admitted with weakness and treated for acute respiratory failure secondary to acute on chronic congestive heart failure with hospital course complicated by respiratory arrests and symptomatic bradycardia now requiring ventilatory support. Plan: Neuro: Patient waking up after CPR, now requiring sedative drips to tolerate ventilatory support. Cardiac: Acute on chronic diastolic congestive heart failure. Underlying AFib and CAD. Respiratory arrest. Symptomatic bradycardia. 2D echocardiogram is pending. Pulmonary: acute hypoxic respiratory failure secondary to pulmonary edema resulting in respiratory arrest now requiring ventilatory support. Continue to titrate off ventilatory support as tolerated. Renal: Acute kidney injury on the background of chronic kidney disease likely secondary to exacerbation of acute on chronic diastolic congestive heart failure. Non oliguric. Continue to monitor renal indices and urine output. Endo: No acute issues. Underlying diabetes mellitus. GI: No acute issues. ID: No acute issues Heme/Onc: No acute issues. Psych: No acute issues. Miscellaneous: No acute issues. Prophylaxis: intermittent pneumatic compression, famotidine Diet: tube feeds Critical care time spent: 90 minutes excluding separately billable procedures Quality Stroke Does the patient have a stroke diagnosis?: No VTE Prior VTE?: No VTE Risk Level:: Medical - moderate - high VTE Device Contraindication: Treatment Not Indicated VTE Drug Contraindication: N/A - Med Ordered
[2022-04-05 15:04] LABS: Lactic Acid 3.7 mmol/L (0.5-2.0)
[2022-04-05] MEDS: Lidocaine HCl 1 % MPF 5 ML VIAL 10 ML SUBCUT (15:05)
[2022-04-05 15:29] LABS: Kappa Light Chain, Free Serum 61.2 mg/L (3.3-19.4); Kappa/Lambda Lt Ch Free Ratio 1.35 (0.26-1.65); Lambda Light Chain, Free Serum 45.3 mg/L (5.7-26.3)
--- NOTE | 2022-04-05 15:34 | PM.PNNEP ---
Subjective Subjective Date of Service: 04/05/22 Interval history: 77-year-old gentleman with underlying AFib, diabetes mellitus, PVD status post right transmetatarsal amputation admitted on 04/01/2022 with weakness, acute renal failure, and ascites with hospital course complicated by progressive hypoxemia and poor response to IV diuresis. Physical Exam Vital Signs: Vital Signs: Last Vital Signs Temp 95.8 F L 04/05/22 05:04 Pulse 55 04/05/22 13:11 Resp 22 H 04/05/22 13:00 BP 113/50 L 04/05/22 13:11 Pulse Ox 92 04/05/22 13:00 O2 Del Method 04/05/22 13:00 O2 Flow Rate 6 04/05/22 07:30 FiO2 60 04/05/22 15:17 BMI result Body Mass Index 25.9 Const: General: no acute distress, awake, confusion and other ( sedated on the vent) Nutritional Appearance: well nourished Orientation/consciousness: confusion HEENT: Head: Yes normocephalic and Yes atraumatic Eyes: Sclerae: sclerae normal Neck: Neck: Yes no lymphadenopathy, Yes trachea midline and Yes supple Resp: Other: Breathing comfortably on room air, no respiratory distress Auscultation: crackles ( diffuse bilateral) Cardio: Rate: regular rate Rhythm: regular rhythm Heart sounds: no gallops, no murmurs and no rubs GI: Other: softly distended without tympany to percussion. Decreased bowel sounds. Mild tenderness to deep palpation in the left lower quadrant without rebound, guarding or rigidity. Palpation (GI): Soft to palpation and Other GI palpation findings present ( Nontender) Auscultation: normal bowel sounds Skin: Other: Warm, dry, no rash Neuro: General: confusion Extrem: General: No clubbing, No cyanosis and Yes edema ( 2+ bilateral) Objective Data Labs CBC & Chem 7: 04/05/22 05:57 04/05/22 14:25 Labs: Laboratory Results - last 24 hr 04/02/22 04/04/22 04/04/22 19:46 12:32 16:02 Hgb Hct VBG pH VBG pCO2 VBG pO2 VBG HCO3 VBG O2 Saturation VBG Base Excess Sodium Potassium Chloride Carbon Dioxide Anion Gap BUN Creatinine Estim Creat Clear Calc Estimated GFR POC Glucose 199 H Random Glucose Lactic Acid Calcium Total Bilirubin AST ALT Alkaline Phosphatase Troponin I High Sens B-Natriuretic Peptide Total Protein Albumin IgG Total 683 IgG Subclass 1 442 IgG Subclass 2 93 L IgG Subclass 3 33 IgG Subclass 4 29.1 Free [place] LC, Quant 61.2 H Free Lambda LC, Quant 45.3 H Free [place]/Lambda Ratio 1.35 04/04/22 04/04/22 04/04/22 19:36 19:51 21:18 Hgb Hct VBG pH VBG pCO2 VBG pO2 VBG HCO3 VBG O2 Saturation VBG Base Excess Sodium Potassium Chloride Carbon Dioxide Anion Gap BUN Creatinine Estim Creat Clear Calc Estimated GFR POC Glucose 123 H 108 Random Glucose Lactic Acid Calcium Total Bilirubin AST ALT Alkaline Phosphatase Troponin I High Sens B-Natriuretic Peptide 1942 H Total Protein Albumin IgG Total IgG Subclass 1 IgG Subclass 2 IgG Subclass 3 IgG Subclass 4 Free [place] LC, Quant Free Lambda LC, Quant Free [place]/Lambda Ratio 04/05/22 04/05/22 04/05/22 05:57 07:06 07:39 Hgb 8.4 L Hct 27.1 L VBG pH VBG pCO2 VBG pO2 VBG HCO3 VBG O2 Saturation VBG Base Excess Sodium 144 Potassium 3.5 D Chloride 110 H Carbon Dioxide 21 L Anion Gap 17 BUN 32 H Creatinine 1.58 H Estim Creat Clear Calc 37.9 Estimated GFR 43 POC Glucose 91 Random Glucose 88 Lactic Acid Calcium 8.9 Total Bilirubin AST ALT Alkaline Phosphatase Troponin I High Sens B-Natriuretic Peptide Total Protein Albumin IgG Total IgG Subclass 1 IgG Subclass 2 IgG Subclass 3 IgG Subclass 4 Free [place] LC, Quant Free Lambda LC, Quant Free [place]/Lambda Ratio 04/05/22 04/05/22 04/05/22 07:39 07:46 12:33 Hgb Hct VBG pH 7.31 L VBG pCO2 51 VBG pO2 76 VBG HCO3 26 VBG O2 Saturation 94.0 VBG Base Excess -0.2 Sodium Potassium Chloride Carbon Dioxide Anion Gap BUN Creatinine Estim Creat Clear Calc Estimated GFR POC Glucose 91 Random Glucose Lactic Acid Calcium Total Bilirubin AST ALT Alkaline Phosphatase Troponin I High Sens B-Natriuretic Peptide 2833 H Total Protein Albumin IgG Total IgG Subclass 1 IgG Subclass 2 IgG Subclass 3 IgG Subclass 4 Free [place] LC, Quant Free Lambda LC, Quant Free [place]/Lambda Ratio 04/05/22 04/05/22 04/05/22 14:23 14:23 14:23 Hgb Hct VBG pH VBG pCO2 VBG pO2 VBG HCO3 VBG O2 Saturation VBG Base Excess Sodium Potassium Chloride Carbon Dioxide Anion Gap BUN Creatinine Estim Creat Clear Calc Estimated GFR POC Glucose Random Glucose Lactic Acid 3.7 H* Calcium Total Bilirubin AST ALT Alkaline Phosphatase Troponin I High Sens 18.0 D B-Natriuretic Peptide 2645 H Total Protein Albumin IgG Total IgG Subclass 1 IgG Subclass 2 IgG Subclass 3 IgG Subclass 4 Free [place] LC, Quant Free Lambda LC, Quant Free [place]/Lambda Ratio 04/05/22 14:25 Hgb Hct VBG pH VBG pCO2 VBG pO2 VBG HCO3 VBG O2 Saturation VBG Base Excess Sodium 140 Potassium 3.6 Chloride 108 Carbon Dioxide 19 L Anion Gap 17 BUN 33 H Creatinine 1.87 H Estim Creat Clear Calc 32.0 Estimated GFR 35 POC Glucose Random Glucose 192 H Lactic Acid Calcium 8.5 Total Bilirubin 0.9 AST 60 H ALT 29 Alkaline Phosphatase 125 H Troponin I High Sens B-Natriuretic Peptide Total Protein 5.9 L Albumin 4.1 IgG Total IgG Subclass 1 IgG Subclass 2 IgG Subclass 3 IgG Subclass 4 Free [place] LC, Quant Free [place]ambda LC, Quant Free [place]/Lambda Ratio Microbiology Microbiology Results: Microbiology 04/01/22 12:27 Blood - Venous Blood Culture - Preliminary No growth after 48 hours. 04/01/22 12:27 Blood - Venous Blood Culture - Preliminary No growth after 48 hours. Procedures Date of Service Date of Service: 04/05/22 Assessment & Plan Assessment and plan (1) Respiratory arrest: Status: Acute (2) Acute respiratory failure: Status: Acute (3) CHANTE (acute kidney injury): Status: Acute Assessment and Plan: 77-YEAR-OLD WITH MULTIPLE CHRONIC MEDICAL PROBLEMS, ADMITTED WITH ACUTE KIDNEY INJURY, NON-ANION GAP METABOLIC ACIDOSIS AND NEWLY DISCOVERED ASCITES WITH A HISTORY OF HEAVY NEAR-NEPHROTIC RANGE PROTEINURIA IN THE PAST. CHANTE: resolving with IVF c/w pre-renal; peak Scr 1.96 CKD 3: BSL Scr 1.2-1.4 Heavy Uprot: c/w DN Ascites apparently new med problem: scheduled tap REC: w/u for nephrotic syndrome (4) PAD (peripheral artery disease): Status: Acute (5) DMII (diabetes mellitus, type 2): Status: Acute (6) Type 2 diabetes mellitus with peripheral artery disease: Status: Acute (7) Acute kidney injury superimposed on CKD: Status: Acute (8) Pulmonary edema with congestive heart failure: Status: Acute (9) Symptomatic bradycardia: Status: Acute Plan Assessment: 77-year-old gentleman has multiple medical issues admitted with weakness and treated for acute respiratory failure secondary to acute on chronic congestive heart failure with hospital course complicated by respiratory arrests and symptomatic bradycardia now requiring ventilatory support. Plan: Neuro: Patient waking up after CPR, now requiring sedative drips to tolerate ventilatory support. Cardiac: Acute on chronic diastolic congestive heart failure. Underlying AFib and CAD. Respiratory arrest. Symptomatic bradycardia. 2D echocardiogram is pending. Pulmonary: acute hypoxic respiratory failure secondary to pulmonary edema resulting in respiratory arrest now requiring ventilatory support. Continue to titrate off ventilatory support as tolerated. Renal: Acute kidney injury on the background of chronic kidney disease likely secondary to exacerbation of acute on chronic diastolic congestive heart failure. Non oliguric. Continue to monitor renal indices and urine output. Endo: No acute issues. Underlying diabetes mellitus. GI: No acute issues. ID: No acute issues Heme/Onc: No acute issues. Psych: No acute issues. Miscellaneous: No acute issues. Prophylaxis: intermittent pneumatic compression, famotidine Diet: tube feeds Critical care time spent: 90 minutes excluding separately billable procedures Time Spent With Patient Time: Total time managing care of this patient today ____ minutes. Progress Note: Quality Stroke Does the patient have a stroke diagnosis?: No
[2022-04-05] MEDS: DOBUTamine HCL/D5W 500 MG/250 ML IV.SOLN 11.99 MG IVCONT (15:40)
[2022-04-05 16:12] LABS: MN% 95.2 %; PMN% 4.8 %; WBC Peritoneal Fluid 0.047 X10*3/uL
[2022-04-05 16:13] LABS: RBC Peritoneal Fluid < 0.002 X10*6/uL
[2022-04-05 16:31] LABS: Reflex Lactate? Lactic Acid Added
[2022-04-05 16:37] LABS: BF Shift QC OK YES; Lymphocyte Peritoneal Fl 62 %; Monocytes Peritoneal Fl 15 %; Neutrophils Peritoneal Fluid 7 %; Other Peritioneal Fl 16 %
[2022-04-05] MEDS: Insulin Lispro 100 UNIT/ML 3 ML VIAL SUBCUT ×2 (16:46→21:12)
[2022-04-05 16:50] LABS: Glucose, Whole Blood 152 mg/dL (60-115)
[2022-04-05] MEDS: DOPamine HCL/D5W 400 MG/250 ML PLAST..BAG 59.93 MG IVCONT (16:54)
[2022-04-05 17:17] LABS: ~Lactic Acid-LAB USE ONLY 2.7 mmol/L (0.5-2.0)
[2022-04-05 17:55] LABS: Phosphorus 4.2 mg/dL (2.7-4.5)
[2022-04-05 18:44] LABS: Reflex Lactate? 2 Y
[2022-04-05] MEDS: DOPamine HCL/D5W 400 MG/250 ML PLAST..BAG 74.91 MG IVCONT ×2 (19:32→21:49)
--- NOTE | 2022-04-05 20:20 | PC.NURSE ---
Assumed care at 07:00. Patient was alert, anxious, oriented x3. Patient was generally somewhat fidgety, but not noted to be pulling off any devices, yet a telesitter was in place. Patient started the shift with dyspnea/shortness of breath/mild accessory muscle use, mostly expressed difficulty breathing out; discussed with RT who delivered nebulizer, and patient's lung sound noted to be inspiratory and expiratory wheezes anterior and posterior upper lung scott, with diminished bases, Patient endorsed some relief from breathing treatment. Discussed with MD and new order for CPAP rescue setting CPap of 10, and FiO2 100%. Discussed with MD and in school suspension aide, priority for paracentesis, but also to get echo. Patient was unstable as per nursing and RT, and discussed with MD that the paracentesis would likely be better for patient's safety if it could be done at bedside; this was escalatated to nursing lawn and tree service spray supervisor and to Lorraina client support administrator, and discussed again with MD as this transfer for paracentesis was on hold pending a resolution. Patient was given 40 IV lasix per MD and cardiology saw patient and also ordered a lasix gtt at 10 mg/ hour, and discussed urine output with MD. Patient had endorsed some relief from CPAP by now, and photography editor says patient can take a break from CPAP after starting lasix gtt, but patient actually refused to take break from it. Patient was looking somewhat more stable, but discussed with nursing technician about concerns about safety for discharge, and plan still on hold pending discussion among management. Patient was noted to have CPAP mask off by VMT, and RT was called to room to find pulseless nonresponsive patient, FLAG MAKER and kristine blue called in succession, patient was give one round of epi and compressions started and patient was intubated and transferred to ICU. Following intubation, patient was bradycardic, and noted to have not been on telemetry prior as it was not ordered and MD aware. Patient transferred to 254.
[2022-04-05 20:26] LABS: ~Lactic Acid-LAB USE ONLY 2.6 mmol/L (0.5-2.0)
[2022-04-05 20:48] LABS: Glucose, Whole Blood 193 mg/dL (60-115)
[2022-04-05] MEDS: Chlorhexidine Gluc Oral Rinse 15 ML MOUTHWASH BUCCAL (21:12)
[2022-04-05] MEDS: Lactulose 20 GM/30 ML SOLUTION PO (21:12)
[2022-04-05 22:34] LABS: Albumin Peritoneal Fluid 1.3 GM/DL; Amylase Peritoneal Fluid 13 U/L; Glucose Peritoneal Fluid 123 MG/DL; LDH Peritoneal Fluid 85 U/L; Total Protein Peritoneal Fluid 2.2 GM/DL
[2022-04-06] VITALS (46 sets, daily range): BP systolic 74–140; BP diastolic 34–75; PULSE 41–70; RESP 11–24; TEMP 34.6–37.1; O2SAT 87–99; BMI 28.0
[2022-04-06] MEDS: DOPamine HCL/D5W 400 MG/250 ML PLAST..BAG 119.85 MG IVCONT ×5 (00:03→08:23)
[2022-04-06] MEDS: propofoL 1,000 MG/100 ML VIAL 9.59 MG IVCONT ×2 (02:00→08:19)
[2022-04-06] MEDS: Albumin Human 25 % 100 ML IV (02:01)
[2022-04-06 03:51] LABS: Glucose, Whole Blood 192 mg/dL (60-115)
[2022-04-06] MEDS: Insulin Lispro 100 UNIT/ML 3 ML VIAL SUBCUT ×2 (04:02→08:23)
[2022-04-06 05:14] LABS: VBG HCO3 16 mmol/L (22-26); VBG pCO2 31 mmHg; VBG pH 7.31 (7.32-7.43); VBG pO2 44 mmHg
[2022-04-06 05:16] LABS: Venous Blood Gas Refer to POC result
[2022-04-06 05:18] LABS: Basophils Percent Auto 0.2 % (0-2); Hematocrit 25.2 % (42.0-52.0); Hemoglobin 7.9 g/dl (14.0-18.0); Imm Gran Abs Auto 0.12 X10*3/uL (0.00-0.03); Imm Gran Pct Auto 0.9 % (0.0-0.4); Lymphocytes Absolute Auto 0.6 X10*3/uL (1.2-4.9); MANUAL DIFF FLAG SCAN; Mean Corpuscular HGB Conc 31.3 g/dl (31.0-36.0); Mean Corpuscular Hemoglobin 29.4 pg (27.0-33.0); Mean Corpuscular Volume 93.7 fL (80.0-98.0); Mean Platelet Volume 11.9 fL (9.4-12.4); Monocytes Absolute Auto 0.6 X10*3/uL (0.1-1.2); Monocytes Percent Auto 4.1 % (2-11); NRBC Pct Auto 0.6 /100WBC (0.0-0.2); Neutrophils Absolute Auto 12.5 x10*3/uL (2.0-8.3); Neutrophils Percent Auto 90.8 % (45-73); Platelet Count 233 X10*3/uL (160-400); Red Blood Count 2.69 X10*6/uL (4.60-5.80); Red Cell Distribution Width 21.9 % (11.0-16.0); SCAN SMEAR FLAG 1; White Blood Count 13.8 X10*3/uL (4.8-10.8)
[2022-04-06 05:26] LABS: SLIDE REVIEW VERIFIED
[2022-04-06 05:34] LABS: Alanine Aminotransferase 26 U/L (0-40); Albumin Level 4.2 g/dL (3.5-5.0); Alkaline Phosphatase 92 U/L (39-117); Anion Gap 17 (12-20); Aspartate Amino Transferase 48 U/L (5-37); Blood Urea Nitrogen 38 mg/dL (9-16); Calcium 8.3 mg/dL (8.4-10.2); Carbon Dioxide 17 mmol/L (22-29); Chloride 105 mmol/L (96-108); Creatinine Clr Calc Pharmacy 27.1; Estimated Glomerular Filt Rate 29; Glucose Random 217 mg/dL (60-115); Magnesium 1.8 mg/dL (1.6-2.6); Phosphorus 4.6 mg/dL (2.7-4.5); Potassium 3.4 mmol/L (3.3-5.1); Sodium 136 mmol/L (135-145); Total Protein 5.6 g/dL (6.5-8.0)
[2022-04-06] MEDS: 0.9 % Sodium Chloride Flush 3 ML SYRINGE IVFLUSH ×3 (07:27→23:59)
[2022-04-06] MEDS: Potassium Chloride/H20 40 MEQ/100 ML PIGGYBACK 50 MEQ IV (07:28)
[2022-04-06] MEDS: Chlorhexidine Gluc Oral Rinse 15 ML MOUTHWASH BUCCAL ×3 (07:28→21:36)
[2022-04-06] MEDS: Famotidine/PF 20 MG/2 ML VIAL IVPUSH (07:28)
[2022-04-06] MEDS: Lactulose 20 GM/30 ML SOLUTION PO ×2 (07:28→21:36)
[2022-04-06 07:32] LABS: Glucose, Whole Blood 164 mg/dL (60-115)
[2022-04-06] MEDS: DOPamine HCL/D5W 400 MG/250 ML PLAST..BAG 74.91 MG IVCONT (10:29)
[2022-04-06 10:35] LABS: Creatinine Urine 90.75 mg/dL
--- NOTE | 2022-04-06 10:35 | MHC.CLN ---
PT IS INTUBATED AND SEDATED CURRENTLY NPO IF TF NEEDED; RECOMMEND GLUCERNA AT MAX GOAL RATE 80ML/HR TO PROVIDE 1920KCALS (2173KCALS WITH SEDATION), 80G PROTEIN, 1638ML FREE WATER FROM FORMULA MONITOR TOLERANCE, RESIDUALS AND LYTES SEE ALSO FULL CLINICAL NUTRITION ASSESSMENT
[2022-04-06 10:54] LABS: Osmolality Urine 335 mosm/kg (373-1093)
[2022-04-06 11:29] LABS: Glucose, Whole Blood 107 mg/dL (60-115)
--- NOTE | 2022-04-06 11:31 | P.CONNP_ITS ---
History of Present Illness Reason for Consult Consult date: 04/06/22 Reason for consult: CHANTE Chief Complaint Chief complaint: Congestive heart failure History of Present Illness Narrative: 77-year-old gentleman now admitted to the ICU with respiratory arrest on ventilator he has acute on chronic diastolic heart failure bradycardia with possible need for a pacemaker his kidney function has worsened and is now adelia guric and volume overloaded Review of Systems Review of Systems Yes all other systems are reviewed and are negative and Unobtainable due to mental condition Reports confusion Psychiatric: Reports confusion [facility] Past Medical History Medical History (Updated 04/05/22 @ 15:12 by Rocky Winn MD) Abscess of right foot Anxiety and depression Asthma Atrial fibrillation Atrial fibrillation with rapid ventricular response Avascular necrosis of bone of hip Cellulitis Coronary artery disease Diabetic foot ulcer Diabetic nephropathy Diabetic neuropathy Diverticular disease DMII (diabetes mellitus, type 2) Hypercholesterolemia Hypertension Open wound Osteomyelitis of foot Osteomyelitis of foot Osteomyelitis of toe PAD (peripheral artery disease) Preoperative cardiovascular examination Thrombocytopenia Tobacco abuse Tubular adenoma of colon Type 2 diabetes mellitus with diabetic foot infection Type 2 diabetes mellitus with hyperglycemia Type 2 diabetes mellitus with peripheral artery disease Vitamin D deficiency Family History Family History Father Diabetes Hypertension CVD (cardiovascular disease) Stroke Mother CVD (cardiovascular disease) Hypertension Cancer Sister No problems noted. Son Stroke Surgical History Surgical History Amputated toe of right foot Amputation finger History of cataract surgery History of surgery Social History Social History Household Members: Spouse and Children Household Members Other:: 4 Housing: House Do you presently have visiting nurse or other home services: Yes Alcohol intake: former Patient Tobacco Use Status: Former Tobacco user Quit Date: 4 months ago Tobacco use type: Cigarette Cigarettes Per Day: 7 Years Smoked: 09/2020 stopped e-Cigarette/Vaping Use: Never Used Second Hand Smoke Exposure: No Advance Directives Date on File: 07/24/20 service: No Current occupational status: retired Cognitive needs: No Hearing needs: No Vision needs: Yes Meds Allergies Allergy/AdvReac Type Severity Reaction Status Date / Time No Known Allergies Allergy Mild Verified 12/30/21 09:11 Active Medications: Current Medications Chlorhexidine Gluconate (Chlorhexidine Gluc Oral Rinse 15 Ml Mouthwash) 15 ml BUCCAL TID [facility] Last Admin: 04/06/22 07:28 Dose: 15 ml Dextrose (Dextrose 50 % 25 Gm/50 Ml Syringe) 25 gm IVPUSH Q15M PRN; Protocol PRN Reason: per Hypoglycemia Standing Ord. Famotidine (Famotidine/Pf 20 Mg/2 Ml Vial) 20 mg IVPUSH DAILY PRAMOD Last Admin: 04/06/22 07:28 Dose: 20 mg Glucose (Glucose Gel 15 Gm Gel..Gram.) 15 gm PO Q15M PRN; Protocol PRN Reason: per Hypoglycemia Standing Ord. Propofol (Diprivan) 1,000 mg in 100 mls @ 0 mls/hr IVCONT .Q0M PRAMOD; Protocol Last Titration: 04/06/22 09:46 Dose: 30 mcg/kg/min, 14.38 mls/hr Dopamine HCl/Dextrose (Dopamine Hcl/D5w) 400 mg in 250 mls @ 0 mls/hr IVCONT .Q0M PRAMOD; Protocol Last Admin: 04/06/22 10:29 Dose: 25 mcg/kg/min, 74.91 mls/hr Norepinephrine Bitartrate (Levophed) 8 mg in 250 mls @ 0 mls/hr IVCONT .Q0M PRAMOD; Protocol Last Titration: 04/06/22 08:20 Dose: 0.06 mcg/kg/min, 8.99 mls/hr Insulin Human Lispro (Insulin Lispro 100 Unit/Ml 3 Ml Vial) 0 unit SUBCUT Q6H PRAMOD; Protocol Last Admin: 04/06/22 08:23 Dose: 2 unit Lactulose (Lactulose 20 Gm/30 Ml Solution) 20 gm PO BID [facility] Last Admin: 04/06/22 07:28 Dose: 20 gm Sodium Chloride (0.9 % Sodium Chloride Flush 3 Ml Syringe) 3 ml IVFLUSH QSHIFT [facility] Last Admin: 04/06/22 07:27 Dose: 3 ml Timolol Maleate (Timolol Maleate 0.5 % Oph [place] 5 Ml Drbtl) 1 drop EYE-LEFT DAILY [facility] Last Admin: 04/06/22 10:23 Dose: Not Given Home Medications Medication Instructions Recorded Confirmed Last Taken Type cholecalciferol (vitamin D3) 25 25 mcg PO DAILY 04/14/20 04/01/22 02/21/22 History mcg (1,000 unit) capsule timolol maleate 0.5 % eye drops 1 drp ophthalmic-Left DAILY 08/21/20 04/01/22 02/21/22 History levothyroxine 25 mcg tablet 25 mcg PO DAILY@0600 02/21/22 04/01/22 02/20/22 History (Synthroid) Physical Exam Vital Signs: Last Vital Signs Temp 96.6 F L 04/06/22 11:00 Pulse 70 04/06/22 11:00 Resp 15 04/06/22 11:00 BP 107/38 L 04/06/22 11:00 Pulse Ox 93 04/06/22 11:00 O2 Del Method 04/06/22 11:00 O2 Flow Rate 6 04/05/22 07:30 FiO2 60 04/06/22 11:00 BMI result Body Mass Index 28.0 Const General: no acute distress, awake, confusion and other ( sedated on the vent) Nutritional Appearance: well nourished Orientation/consciousness: confusion HEENT Head: Yes normocephalic and Yes atraumatic Eyes Sclerae: sclerae normal Neck Neck: Yes no lymphadenopathy, Yes trachea midline and Yes supple Resp Other: Breathing comfortably on room air, no respiratory distress Auscultation: crackles ( diffuse bilateral) Cardio Rate: regular rate Rhythm: regular rhythm Heart sounds: no gallops, no murmurs and no rubs GI Other: softly distended without tympany to percussion. Decreased bowel sounds. Mild tenderness to deep palpation in the left lower quadrant without rebound, guarding or rigidity. Palpation (GI): Soft to palpation and Other GI palpation findings present ( Nontender) Auscultation: normal bowel sounds Skin Other: Warm, dry, no rash Neuro General: confusion Extrem General: No clubbing, No cyanosis and Yes edema ( 2+ bilateral) Results Lab Results Result Diagrams: 04/06/22 05:00 04/06/22 05:00 Lab results: Chemistry 04/04/22 04/05/22 04/05/22 06:17 07:39 14:25 Sodium 142 144 140 Potassium 4.5 3.5 D 3.6 Carbon Dioxide 18 L 21 L 19 L BUN 31 H 32 H 33 H Creatinine 1.38 1.58 H 1.87 H Calcium 8.6 8.9 8.5 Phosphorus 4.2 04/06/22 05:00 Sodium 136 Potassium 3.4 Carbon Dioxide 17 L BUN 38 H Creatinine 2.21 H Calcium 8.3 L Phosphorus 4.6 H Hematology 04/05/22 04/06/22 05:57 05:00 WBC 13.8 H Hgb 8.4 L 7.9 L Plt Count 233 Urine Studies 04/02/22 04/02/22 04/06/22 22:45 22:45 Unknown Urine Osmolality Urine Creatinine 84.65 84.84 90.75 04/06/22 Unknown Urine Osmolality 335 L Urine Creatinine Assessment and Plan (1) Respiratory arrest: Status: Acute (2) Acute respiratory failure: Status: Acute (3) CHANTE (acute kidney injury): Status: Acute (4) PAD (peripheral artery disease): Status: Acute (5) DMII (diabetes mellitus, type 2): Status: Acute (6) Type 2 diabetes mellitus with peripheral artery disease: Status: Acute (7) Acute kidney injury superimposed on CKD: Status: Acute On admission his creatinine was 1.96 baseline creatinine 1.29 he came back to his baseline TUESDAY at 1.38 and now is up to 2.21 URINE LYTES ARE PENDING We will monitor the patient today if the patient continues to be oliguric and not respond to IV diuretics he may require ultrafiltration today which we are prepared to do (8) Pulmonary edema with congestive heart failure: Status: Acute (9) Symptomatic bradycardia: Status: Acute Plan 76-year-old male with a PMH significant for diabetes with diabetic foot ulcers and infections in the past, left toe amputations, HTN, history of Afib on Eliquis, HLD, and history of peripheral vascular disease who presents to the ED from home via ambulance due to generalized weakness, fall, and confusion. Pt will be admitted for treatment for dehydration, CHANTE, and possible pneumonia. acute hypoxemic respiratory failure multifactorial- community acquired pneumonia,chf,ascitis overnight oxygen demad going up,leukocytosis improving,blood culture neg@48hrs on iv antibiiotics ,lasix drip ,albumin,cpap/oxygen patient pulled off his cpap -went into repiratory arrest (sats drops quickly after he pulled off cpap)-code blue called :patient was breifly recusitated - RASC achieved /intubated : subsequently transferred to ICU. # possible chf -etiology unclear ,CHANTE on possible ckd 3. increased sob,increasin elevated bnp . started on iv lasix drip,albumin need ascitis tap. # abdominal pqcf-[id number]-snwjpxlajfpw/ascitis CT of abdomen: ascitis ,diverticulosis ,constipation-on luxatives -producing bm. Ascitis : multifactorial need further workup ua,electrolytes ascitis ?liver dis added albumin need hold plavix/eliquis. # diabetes -- hold metformin -- ssi # paroxysmal AFib hold? Eliquis,plavix -need ascitis tap and also on metoprolol. # history of PAD - continue Plavix # hypothyroidism - continue levothyroxine Full code inpatient need :patient had code blue -rscusitated -acute hypoxemic respiratory failure multifactorial-community acquired pneumonia,chf ,ascitis -need iv antibiotics,lasix drip? ,dignostic/therapeutic paracentesis. his updated . Time Spent With Patient Time: Total time managing care of this patient today ____ minutes. Procedures Date of Service Date of Service: 04/06/22
--- NOTE | 2022-04-06 11:39 | P.PNCC_ITS ---
Subjective Subjective Date of Service: 04/06/22 Interval History: 77-year-old gentleman with underlying AFib, diabetes mellitus, PVD status post right transmetatarsal amputation admitted on 04/01/2022 with weakness, acute renal failure, and ascites with hospital course complicated by progressive hypoxemia and poor response to IV diuresis respiratory arrest on 04/05/2022 with unclear down time, approximately to be 5 minutes, and return of spontaneous circulation after less than 7 minutes of CPR as patient was struggling with intubation during the CPR. post CPR course further complicated by persistent bradycardia with poor response to dopamine, now on transcutaneous pacing, and oliguria. No events overnight. Critical Care Time (minutes): 60 Physical Exam Vital Signs: Vital Signs: Last Vital Signs Temp 96.6 F L 04/06/22 11:00 Pulse 70 04/06/22 11:00 Resp 15 04/06/22 11:00 BP 107/38 L 04/06/22 11:00 Pulse Ox 93 04/06/22 11:00 O2 Del Method 04/06/22 11:00 O2 Flow Rate 6 04/05/22 07:30 FiO2 60 04/06/22 11:00 BMI result Body Mass Index 28.0 Const: General: no acute distress and other ( Sedated on the vent) Eyes: Sclerae: sclerae normal Neck: Neck: Yes no lymphadenopathy, Yes trachea midline and Yes supple Resp: Auscultation: crackles ( diffuse bilateral) Cardio: Rate: bradycardic Rhythm: regular rhythm Heart sounds: no gallops, no murmurs and no rubs GI: Inspection: Yes distended Palpation (GI): Soft to palpation and Other GI palpation findings present ( Nontender) Auscultation: normal bowel sounds Extrem: General: No clubbing, No cyanosis, Yes edema ( 1+ bilateral) and Yes other ( right TMA) Objective Data Labs CBC & Chem 7: 04/06/22 05:00 04/06/22 05:00 Labs: Laboratory Results - last 24 hr 04/02/22 04/04/22 04/05/22 19:46 12:32 07:39 WBC RBC Hgb Hct MCV MCH MCHC RDW Plt Count MPV Immature Gran % (Auto) Neut % (Auto) Lymph % (Auto) [place] % (Auto) Eos % (Auto) Baso % (Auto) Lymph # (Auto) [place] # (Auto) Eos # (Auto) Baso # (Auto) Abs Immat Gran (auto) Absolute Neuts (auto) Absolute Nucleated RBC Nucleated RBC % (auto) Smear Tech's Comments VBG pH VBG pCO2 VBG pO2 VBG HCO3 VBG O2 Saturation VBG Base Excess Sodium Potassium Chloride Carbon Dioxide Anion Gap BUN Creatinine Estim Creat Clear Calc Estimated GFR POC Glucose Random Glucose Lactic Acid Lactic Acid F/U @ 2Hr Lactic Acid F/U @ 4Hr Calcium Phosphorus 4.2 Magnesium Total Bilirubin AST ALT Alkaline Phosphatase Troponin I High Sens B-Natriuretic Peptide Total Protein Albumin Urine Osmolality Urine Creatinine Peritoneal pH Peritoneal WBC Peritoneal RBC Periton Neutrophils Periton Lymphocytes Peritoneal Monocytes Peritoneal Other Cells Peritoneal Tot Protein Peritoneal Albumin Peritoneal LDH Peritoneal Glucose Peritoneal Amylase IgG Total 683 IgG Subclass 1 442 IgG Subclass 2 93 L IgG Subclass 3 33 IgG Subclass 4 29.1 Free [place] LC, Quant 61.2 H Free Lambda LC, Quant 45.3 H Free [place]/Lambda Ratio 1.35 04/05/22 04/05/22 04/05/22 12:33 14:23 14:23 WBC RBC Hgb Hct MCV MCH MCHC RDW Plt Count MPV Immature Gran % (Auto) Neut % (Auto) Lymph % (Auto) [place] % (Auto) Eos % (Auto) Baso % (Auto) Lymph # (Auto) [place] # (Auto) Eos # (Auto) Baso # (Auto) Abs Immat Gran (auto) Absolute Neuts (auto) Absolute Nucleated RBC Nucleated RBC % (auto) Smear Tech's Comments VBG pH VBG pCO2 VBG pO2 VBG HCO3 VBG O2 Saturation VBG Base Excess Sodium Potassium Chloride Carbon Dioxide Anion Gap BUN Creatinine Estim Creat Clear Calc Estimated GFR POC Glucose 91 Random Glucose Lactic Acid 3.7 H* Lactic Acid F/U @ 2Hr Lactic Acid F/U @ 4Hr Calcium Phosphorus Magnesium Total Bilirubin AST ALT Alkaline Phosphatase Troponin I High Sens 18.0 D B-Natriuretic Peptide Total Protein Albumin Urine Osmolality Urine Creatinine Peritoneal pH Peritoneal WBC Peritoneal RBC Periton Neutrophils Periton Lymphocytes Peritoneal Monocytes Peritoneal Other Cells Peritoneal Tot Protein Peritoneal Albumin Peritoneal LDH Peritoneal Glucose Peritoneal Amylase IgG Total IgG Subclass 1 IgG Subclass 2 IgG Subclass 3 IgG Subclass 4 Free [place] LC, Quant Free Lambda LC, Quant Free [place]/Lambda Ratio 04/05/22 04/05/22 04/05/22 14:23 14:25 15:38 WBC RBC Hgb Hct MCV MCH MCHC RDW Plt Count MPV Immature Gran % (Auto) Neut % (Auto) Lymph % (Auto) [place] % (Auto) Eos % (Auto) Baso % (Auto) Lymph # (Auto) [place] # (Auto) Eos # (Auto) Baso # (Auto) Abs Immat Gran (auto) Absolute Neuts (auto) Absolute Nucleated RBC Nucleated RBC % (auto) Smear Tech's Comments VBG pH VBG pCO2 VBG pO2 VBG HCO3 VBG O2 Saturation VBG Base Excess Sodium 140 Potassium 3.6 Chloride 108 Carbon Dioxide 19 L Anion Gap 17 BUN 33 H Creatinine 1.87 H Estim Creat Clear Calc 32.0 Estimated GFR 35 POC Glucose Random Glucose 192 H Lactic Acid Lactic Acid F/U @ 2Hr Lactic Acid F/U @ 4Hr Calcium 8.5 Phosphorus Magnesium Total Bilirubin 0.9 AST 60 H ALT 29 Alkaline Phosphatase 125 H Troponin I High Sens B-Natriuretic Peptide 2645 H Total Protein 5.9 L Albumin 4.1 Urine Osmolality Urine Creatinine Peritoneal pH Peritoneal WBC Peritoneal RBC Periton Neutrophils Periton Lymphocytes Peritoneal Monocytes Peritoneal Other Cells Peritoneal Tot Protein Cancelled Peritoneal Albumin Peritoneal LDH Peritoneal Glucose Peritoneal Amylase Cancelled IgG Total IgG Subclass 1 IgG Subclass 2 IgG Subclass 3 IgG Subclass 4 Free [place] LC, Quant Free Lambda LC, Quant Free [place]/Lambda Ratio 04/05/22 04/05/22 04/05/22 15:38 15:38 15:38 WBC RBC Hgb Hct MCV MCH MCHC RDW Plt Count MPV Immature Gran % (Auto) Neut % (Auto) Lymph % (Auto) [place] % (Auto) Eos % (Auto) Baso % (Auto) Lymph # (Auto) [place] # (Auto) Eos # (Auto) Baso # (Auto) Abs Immat Gran (auto) Absolute Neuts (auto) Absolute Nucleated RBC Nucleated RBC % (auto) Smear Tech's Comments VBG pH VBG pCO2 VBG pO2 VBG HCO3 VBG O2 Saturation VBG Base Excess Sodium Potassium Chloride Carbon Dioxide Anion Gap BUN Creatinine Estim Creat Clear Calc Estimated GFR POC Glucose Random Glucose Lactic Acid Lactic Acid F/U @ 2Hr Lactic Acid F/U @ 4Hr Calcium Phosphorus Magnesium Total Bilirubin AST ALT Alkaline Phosphatase Troponin I High Sens B-Natriuretic Peptide Total Protein Albumin Urine Osmolality Urine Creatinine Peritoneal pH 7.50 Peritoneal WBC 0.047 Peritoneal RBC < 0.002 Periton Neutrophils 7 Periton Lymphocytes 62 Peritoneal Monocytes 15 Peritoneal Other Cells 16 Peritoneal Tot Protein 2.2 Peritoneal Albumin 1.3 Peritoneal LDH 85 Peritoneal Glucose 123 Peritoneal Amylase 13 IgG Total IgG Subclass 1 IgG Subclass 2 IgG Subclass 3 IgG Subclass 4 Free [place] LC, Quant Free Lambda LC, Quant Free [place]/Lambda Ratio 04/05/22 04/05/22 04/05/22 16:39 16:43 19:28 WBC RBC Hgb Hct MCV MCH MCHC RDW Plt Count MPV Immature Gran % (Auto) Neut % (Auto) Lymph % (Auto) [place] % (Auto) Eos % (Auto) Baso % (Auto) Lymph # (Auto) [place] # (Auto) Eos # (Auto) Baso # (Auto) Abs Immat Gran (auto) Absolute Neuts (auto) Absolute Nucleated RBC Nucleated RBC % (auto) Smear Tech's Comments VBG pH VBG pCO2 VBG pO2 VBG HCO3 VBG O2 Saturation VBG Base Excess Sodium Potassium Chloride Carbon Dioxide Anion Gap BUN Creatinine Estim Creat Clear Calc Estimated GFR POC Glucose 152 H Random Glucose Lactic Acid Lactic Acid F/U @ 2Hr 2.7 H* Lactic Acid F/U @ 4Hr 2.6 H* Calcium Phosphorus Magnesium Total Bilirubin AST ALT Alkaline Phosphatase Troponin I High Sens B-Natriuretic Peptide Total Protein Albumin Urine Osmolality Urine Creatinine Peritoneal pH Peritoneal WBC Peritoneal RBC Periton Neutrophils Periton Lymphocytes Peritoneal Monocytes Peritoneal Other Cells Peritoneal Tot Protein Peritoneal Albumin Peritoneal LDH Peritoneal Glucose Peritoneal Amylase IgG Total IgG Subclass 1 IgG Subclass 2 IgG Subclass 3 IgG Subclass 4 Free [place] LC, Quant Free Lambda LC, Quant Free [place]/Lambda Ratio 04/05/22 04/06/22 04/06/22 20:45 03:48 05:00 WBC 13.8 H RBC 2.69 L Hgb 7.9 L Hct 25.2 L MCV 93.7 MCH 29.4 MCHC 31.3 RDW 21.9 H Plt Count 233 MPV 11.9 Immature Gran % (Auto) 0.9 H Neut % (Auto) 90.8 H Lymph % (Auto) 4.0 L [place] % (Auto) 4.1 Eos % (Auto) 0.0 Baso % (Auto) 0.2 Lymph # (Auto) 0.6 L [place] # (Auto) 0.6 Eos # (Auto) 0.0 Baso # (Auto) 0.0 Abs Immat Gran (auto) 0.12 H Absolute Neuts (auto) 12.5 H Absolute Nucleated RBC 0.080 H Nucleated RBC % (auto) 0.6 H Smear Tech's Comments VERIFIED VBG pH VBG pCO2 VBG pO2 VBG HCO3 VBG O2 Saturation VBG Base Excess Sodium Potassium Chloride Carbon Dioxide Anion Gap BUN Creatinine Estim Creat Clear Calc Estimated GFR POC Glucose 193 H 192 H Random Glucose Lactic Acid Lactic Acid F/U @ 2Hr Lactic Acid F/U @ 4Hr Calcium Phosphorus Magnesium Total Bilirubin AST ALT Alkaline Phosphatase Troponin I High Sens B-Natriuretic Peptide Total Protein Albumin Urine Osmolality Urine Creatinine Peritoneal pH Peritoneal WBC Peritoneal RBC Periton Neutrophils Periton Lymphocytes Peritoneal Monocytes Peritoneal Other Cells Peritoneal Tot Protein Peritoneal Albumin Peritoneal LDH Peritoneal Glucose Peritoneal Amylase IgG Total IgG Subclass 1 IgG Subclass 2 IgG Subclass 3 IgG Subclass 4 Free [place] LC, Quant Free Lambda LC, Quant Free [place]/Lambda Ratio 04/06/22 04/06/22 04/06/22 05:00 05:08 07:28 WBC RBC Hgb Hct MCV MCH MCHC RDW Plt Count MPV Immature Gran % (Auto) Neut % (Auto) Lymph % (Auto) [place] % (Auto) Eos % (Auto) Baso % (Auto) Lymph # (Auto) [place] # (Auto) Eos # (Auto) Baso # (Auto) Abs Immat Gran (auto) Absolute Neuts (auto) Absolute Nucleated RBC Nucleated RBC % (auto) Smear Tech's Comments VBG pH 7.31 L VBG pCO2 31 VBG pO2 44 VBG HCO3 16 L VBG O2 Saturation 69.0 VBG Base Excess -9.0 Sodium 136 Potassium 3.4 Chloride 105 Carbon Dioxide 17 L Anion Gap 17 BUN 38 H Creatinine 2.21 H Estim Creat Clear Calc 27.1 Estimated GFR 29 POC Glucose 164 H Random Glucose 217 H Lactic Acid Lactic Acid F/U @ 2Hr Lactic Acid F/U @ 4Hr Calcium 8.3 L Phosphorus 4.6 H Magnesium 1.8 Total Bilirubin 1.0 AST 48 H ALT 26 Alkaline Phosphatase 92 Troponin I High Sens B-Natriuretic Peptide Total Protein 5.6 L Albumin 4.2 Urine Osmolality Urine Creatinine Peritoneal pH Peritoneal WBC Peritoneal RBC Periton Neutrophils Periton Lymphocytes Peritoneal Monocytes Peritoneal Other Cells Peritoneal Tot Protein Peritoneal Albumin Peritoneal LDH Peritoneal Glucose Peritoneal Amylase IgG Total IgG Subclass 1 IgG Subclass 2 IgG Subclass 3 IgG Subclass 4 Free [place] LC, Quant Free Lambda LC, Quant Free [place]/Lambda Ratio 04/06/22 04/06/22 04/06/22 11:26 Unknown Unknown WBC RBC Hgb Hct MCV MCH MCHC RDW Plt Count MPV Immature Gran % (Auto) Neut % (Auto) Lymph % (Auto) [place] % (Auto) Eos % (Auto) Baso % (Auto) Lymph # (Auto) [place] # (Auto) Eos # (Auto) Baso # (Auto) Abs Immat Gran (auto) Absolute Neuts (auto) Absolute Nucleated RBC Nucleated RBC % (auto) Smear Tech's Comments VBG pH VBG pCO2 VBG pO2 VBG HCO3 VBG O2 Saturation VBG Base Excess Sodium Potassium Chloride Carbon Dioxide Anion Gap BUN Creatinine Estim Creat Clear Calc Estimated GFR POC Glucose 107 Random Glucose Lactic Acid Lactic Acid F/U @ 2Hr Lactic Acid F/U @ 4Hr Calcium Phosphorus Magnesium Total Bilirubin AST ALT Alkaline Phosphatase Troponin I High Sens B-Natriuretic Peptide Total Protein Albumin Urine Osmolality 335 L Urine Creatinine 90.75 Peritoneal pH Peritoneal WBC Peritoneal RBC Periton Neutrophils Periton Lymphocytes Peritoneal Monocytes Peritoneal Other Cells Peritoneal Tot Protein Peritoneal Albumin Peritoneal LDH Peritoneal Glucose Peritoneal Amylase IgG Total IgG Subclass 1 IgG Subclass 2 IgG Subclass 3 IgG Subclass 4 Free [place] LC, Quant Free Lambda LC, Quant Free [place]/Lambda Ratio Microbiology Microbiology Results: Microbiology 04/05/22 15:37 Abdominal Fluid Gram Stain - Final 04/05/22 15:37 Abdominal Fluid Routine Culture - Preliminary No growth to date. 04/05/22 15:37 Abdominal Fluid Anaerobic Culture - Preliminary No growth to date. 04/01/22 12:27 Blood - Venous Blood Culture - Preliminary No growth after 48 hours. 04/01/22 12:27 Blood - Venous Blood Culture - Preliminary No growth after 48 hours. Progress Note: A&P Assessment and plan (1) Symptomatic bradycardia: Status: Acute (2) Pulmonary edema with congestive heart failure: Status: Acute (3) Respiratory arrest: Status: Acute (4) Acute respiratory failure: Status: Acute (5) Type 2 diabetes mellitus with peripheral artery disease: Status: Acute (6) Acute kidney injury superimposed on CKD: Status: Acute Plan Assessment: 77-year-old gentleman has multiple medical issues admitted with weakness and treated for acute respiratory failure secondary to acute on chronic congestive heart failure with hospital course complicated by respiratory arrests and symptomatic bradycardia now requiring ventilatory support. Plan: Neuro: Patient waking up after CPR, now requiring sedative drips to tolerate ventilatory support. Cardiac: Acute on chronic diastolic congestive heart failure. Underlying AFib and CAD. Respiratory arrest. Symptomatic bradycardia requiring transcutaneous pacing. Will request evaluation for PPM placement. 2D echocardiogram with normal LVEF and right-sided dysfunction. Pulmonary: acute hypoxic respiratory failure secondary to pulmonary edema resulting in respiratory arrest now requiring ventilatory support. Continue to titrate off ventilatory support as tolerated. Renal: Acute kidney injury on the background of chronic kidney disease likely secondary to exacerbation of acute on chronic diastolic congestive heart failure. Oliguric. Nephrology service care appreciated. May require ultrafiltration. Continue to monitor renal indices and urine output. Endo: No acute issues. Underlying diabetes mellitus. GI: No acute issues. ID: No acute issues Heme/Onc: No acute issues. Psych: No acute issues. Miscellaneous: No acute issues. Prophylaxis: intermittent pneumatic compression, famotidine Diet: tube feeds Critical care time spent: 60 minutes Quality Stroke Does the patient have a stroke diagnosis?: No VTE Prior VTE?: No VTE Risk Level:: Medical - moderate - high VTE Device Contraindication: Treatment Not Indicated VTE Drug Contraindication: N/A - Med Ordered
[2022-04-06] MEDS: Magnesium Sulfate/H2O 2 GM/50 ML PIGGYBACK IV (12:01)
[2022-04-06 13:43] LABS: Anti Nuclear Antibody Screen NEGATIVE (NEGATIVE)
--- NOTE | 2022-04-06 13:47 | PC.NURSE ---
Addendum entered by Trinidad Martinez RN 04/06/22 18:46: 18:15 SaO2 85%, patient restless and moving head, vent asynchrony. Propofol increased to 40 mcg/kg/min. Respiratory therapy to bedside. Vent settings adjusted to AC 16/400/8.0/70%. Patient SaO2 improved to 93%, vent synchrony improved. MD notified. Original Note: 08:00 patient junctional rhythm rate 38-45. 09:00 dopamine gtt increased to 50 09:45 propofol increased to 30 mcg/kg/min 09:48 MD and RN at bedside to initiate transcutaneous pacemaker with Zoll monitor. capture achieved at 12 mAmps. HR 70 bpm 12:30 cardiology MD to bedside for consult. MD decreased pacing to 50 ppm to observe underlying junctional rhythm. pacing increased back to 70 ppm.
[2022-04-06] MEDS: Bumetanide 1 MG/4 ML VIAL IVPUSH (14:05)
--- NOTE | 2022-04-06 14:34 | P.PNCA_ITS ---
Subjective Subjective Date of Service: 04/06/22 Interval history: Seen and examined at bedside. Currently being paced transcutaneously because of junctional bradycardia. Sedated and ventilated. Physical Exam Vital Signs: Last Vital Signs Temp 96.6 F L 04/06/22 11:00 Pulse 70 04/06/22 14:10 Resp 16 04/06/22 14:00 BP 105/39 L 04/06/22 14:00 Pulse Ox 91 L 04/06/22 14:00 O2 Del Method 04/06/22 14:00 O2 Flow Rate 6 04/05/22 07:30 FiO2 60 04/06/22 14:00 BMI result Body Mass Index 28.0 GENERAL APPEARANCE: Sedated and ventilated. SKIN: no suspicious lesions, warm and dry. HEART: no murmurs, regular rate and rhythm. Transcutaneous pacing. LUNGS: Clear anteriorly. ABDOMEN: Soft. EXTREMITIES: no significant edema. PERIPHERAL PULSES: equal. Objective Labs and Meds Result diagrams: 04/06/22 05:00 04/06/22 05:00 Lab results: Laboratory Results - last 24 hr 04/02/22 04/04/22 04/04/22 19:46 12:32 12:32 WBC RBC Hgb Hct MCV MCH MCHC RDW Plt Count MPV Immature Gran % (Auto) Neut % (Auto) Lymph % (Auto) [place] % (Auto) Eos % (Auto) Baso % (Auto) Lymph # (Auto) [place] # (Auto) Eos # (Auto) Baso # (Auto) Abs Immat Gran (auto) Absolute Neuts (auto) Absolute Nucleated RBC Nucleated RBC % (auto) Smear Tech's Comments VBG pH VBG pCO2 VBG pO2 VBG HCO3 VBG O2 Saturation VBG Base Excess Sodium Potassium Chloride Carbon Dioxide Anion Gap BUN Creatinine Estim Creat Clear Calc Estimated GFR POC Glucose Random Glucose Lactic Acid Lactic Acid F/U @ 2Hr Lactic Acid F/U @ 4Hr Calcium Phosphorus Magnesium Total Bilirubin AST ALT Alkaline Phosphatase Troponin I High Sens B-Natriuretic Peptide Total Protein Albumin Urine Osmolality Urine Creatinine Peritoneal pH Peritoneal WBC Peritoneal RBC Periton Neutrophils Periton Lymphocytes Peritoneal Monocytes Peritoneal Other Cells Peritoneal Tot Protein Peritoneal Albumin Peritoneal LDH Peritoneal Glucose Peritoneal Amylase IgG Total 683 IgG Subclass 1 442 IgG Subclass 2 93 L IgG Subclass 3 33 IgG Subclass 4 29.1 HELEN Screen NEGATIVE Free [place] LC, Quant 61.2 H Free Lambda LC, Quant 45.3 H Free [place]/Lambda Ratio 1.35 04/05/22 04/05/22 04/05/22 07:39 14:23 14:23 WBC RBC Hgb Hct MCV MCH MCHC RDW Plt Count MPV Immature Gran % (Auto) Neut % (Auto) Lymph % (Auto) [place] % (Auto) Eos % (Auto) Baso % (Auto) Lymph # (Auto) [place] # (Auto) Eos # (Auto) Baso # (Auto) Abs Immat Gran (auto) Absolute Neuts (auto) Absolute Nucleated RBC Nucleated RBC % (auto) Smear Tech's Comments VBG pH VBG pCO2 VBG pO2 VBG HCO3 VBG O2 Saturation VBG Base Excess Sodium Potassium Chloride Carbon Dioxide Anion Gap BUN Creatinine Estim Creat Clear Calc Estimated GFR POC Glucose Random Glucose Lactic Acid 3.7 H* Lactic Acid F/U @ 2Hr Lactic Acid F/U @ 4Hr Calcium Phosphorus 4.2 Magnesium Total Bilirubin AST ALT Alkaline Phosphatase Troponin I High Sens 18.0 D B-Natriuretic Peptide Total Protein Albumin Urine Osmolality Urine Creatinine Peritoneal pH Peritoneal WBC Peritoneal RBC Periton Neutrophils Periton Lymphocytes Peritoneal Monocytes Peritoneal Other Cells Peritoneal Tot Protein Peritoneal Albumin Peritoneal LDH Peritoneal Glucose Peritoneal Amylase IgG Total IgG Subclass 1 IgG Subclass 2 IgG Subclass 3 IgG Subclass 4 HELEN Screen Free [place] LC, Quant Free Lambda LC, Quant Free [place]/Lambda Ratio 04/05/22 04/05/22 04/05/22 14:23 14:25 15:38 WBC RBC Hgb Hct MCV MCH MCHC RDW Plt Count MPV Immature Gran % (Auto) Neut % (Auto) Lymph % (Auto) [place] % (Auto) Eos % (Auto) Baso % (Auto) Lymph # (Auto) [place] # (Auto) Eos # (Auto) Baso # (Auto) Abs Immat Gran (auto) Absolute Neuts (auto) Absolute Nucleated RBC Nucleated RBC % (auto) Smear Tech's Comments VBG pH VBG pCO2 VBG pO2 VBG HCO3 VBG O2 Saturation VBG Base Excess Sodium 140 Potassium 3.6 Chloride 108 Carbon Dioxide 19 L Anion Gap 17 BUN 33 H Creatinine 1.87 H Estim Creat Clear Calc 32.0 Estimated GFR 35 POC Glucose Random Glucose 192 H Lactic Acid Lactic Acid F/U @ 2Hr Lactic Acid F/U @ 4Hr Calcium 8.5 Phosphorus Magnesium Total Bilirubin 0.9 AST 60 H ALT 29 Alkaline Phosphatase 125 H Troponin I High Sens B-Natriuretic Peptide 2645 H Total Protein 5.9 L Albumin 4.1 Urine Osmolality Urine Creatinine Peritoneal pH Peritoneal WBC Peritoneal RBC Periton Neutrophils Periton Lymphocytes Peritoneal Monocytes Peritoneal Other Cells Peritoneal Tot Protein Cancelled Peritoneal Albumin Peritoneal LDH Peritoneal Glucose Peritoneal Amylase Cancelled IgG Total IgG Subclass 1 IgG Subclass 2 IgG Subclass 3 IgG Subclass 4 HELEN Screen Free [place] LC, Quant Free Lambda LC, Quant Free [place]/Lambda Ratio 04/05/22 04/05/22 04/05/22 15:38 15:38 15:38 WBC RBC Hgb Hct MCV MCH MCHC RDW Plt Count MPV Immature Gran % (Auto) Neut % (Auto) Lymph % (Auto) [place] % (Auto) Eos % (Auto) Baso % (Auto) Lymph # (Auto) [place] # (Auto) Eos # (Auto) Baso # (Auto) Abs Immat Gran (auto) Absolute Neuts (auto) Absolute Nucleated RBC Nucleated RBC % (auto) Smear Tech's Comments VBG pH VBG pCO2 VBG pO2 VBG HCO3 VBG O2 Saturation VBG Base Excess Sodium Potassium Chloride Carbon Dioxide Anion Gap BUN Creatinine Estim Creat Clear Calc Estimated GFR POC Glucose Random Glucose Lactic Acid Lactic Acid F/U @ 2Hr Lactic Acid F/U @ 4Hr Calcium Phosphorus Magnesium Total Bilirubin AST ALT Alkaline Phosphatase Troponin I High Sens B-Natriuretic Peptide Total Protein Albumin Urine Osmolality Urine Creatinine Peritoneal pH 7.50 Peritoneal WBC 0.047 Peritoneal RBC < 0.002 Periton Neutrophils 7 Periton Lymphocytes 62 Peritoneal Monocytes 15 Peritoneal Other Cells 16 Peritoneal Tot Protein 2.2 Peritoneal Albumin 1.3 Peritoneal LDH 85 Peritoneal Glucose 123 Peritoneal Amylase 13 IgG Total IgG Subclass 1 IgG Subclass 2 IgG Subclass 3 IgG Subclass 4 HELEN Screen Free [place] LC, Quant Free Lambda LC, Quant Free [place]/Lambda Ratio 04/05/22 04/05/22 04/05/22 16:39 16:43 19:28 WBC RBC Hgb Hct MCV MCH MCHC RDW Plt Count MPV Immature Gran % (Auto) Neut % (Auto) Lymph % (Auto) [place] % (Auto) Eos % (Auto) Baso % (Auto) Lymph # (Auto) [place] # (Auto) Eos # (Auto) Baso # (Auto) Abs Immat Gran (auto) Absolute Neuts (auto) Absolute Nucleated RBC Nucleated RBC % (auto) Smear Tech's Comments VBG pH VBG pCO2 VBG pO2 VBG HCO3 VBG O2 Saturation VBG Base Excess Sodium Potassium Chloride Carbon Dioxide Anion Gap BUN Creatinine Estim Creat Clear Calc Estimated GFR POC Glucose 152 H Random Glucose Lactic Acid Lactic Acid F/U @ 2Hr 2.7 H* Lactic Acid F/U @ 4Hr 2.6 H* Calcium Phosphorus Magnesium Total Bilirubin AST ALT Alkaline Phosphatase Troponin I High Sens B-Natriuretic Peptide Total Protein Albumin Urine Osmolality Urine Creatinine Peritoneal pH Peritoneal WBC Peritoneal RBC Periton Neutrophils Periton Lymphocytes Peritoneal Monocytes Peritoneal Other Cells Peritoneal Tot Protein Peritoneal Albumin Peritoneal LDH Peritoneal Glucose Peritoneal Amylase IgG Total IgG Subclass 1 IgG Subclass 2 IgG Subclass 3 IgG Subclass 4 HELEN Screen Free [place] LC, Quant Free Lambda LC, Quant Free [place]/Lambda Ratio 04/05/22 04/06/22 04/06/22 20:45 03:48 05:00 WBC 13.8 H RBC 2.69 L Hgb 7.9 L Hct 25.2 L MCV 93.7 MCH 29.4 MCHC 31.3 RDW 21.9 H Plt Count 233 MPV 11.9 Immature Gran % (Auto) 0.9 H Neut % (Auto) 90.8 H Lymph % (Auto) 4.0 L [place] % (Auto) 4.1 Eos % (Auto) 0.0 Baso % (Auto) 0.2 Lymph # (Auto) 0.6 L [place] # (Auto) 0.6 Eos # (Auto) 0.0 Baso # (Auto) 0.0 Abs Immat Gran (auto) 0.12 H Absolute Neuts (auto) 12.5 H Absolute Nucleated RBC 0.080 H Nucleated RBC % (auto) 0.6 H Smear Tech's Comments VERIFIED VBG pH VBG pCO2 VBG pO2 VBG HCO3 VBG O2 Saturation VBG Base Excess Sodium Potassium Chloride Carbon Dioxide Anion Gap BUN Creatinine Estim Creat Clear Calc Estimated GFR POC Glucose 193 H 192 H Random Glucose Lactic Acid Lactic Acid F/U @ 2Hr Lactic Acid F/U @ 4Hr Calcium Phosphorus Magnesium Total Bilirubin AST ALT Alkaline Phosphatase Troponin I High Sens B-Natriuretic Peptide Total Protein Albumin Urine Osmolality Urine Creatinine Peritoneal pH Peritoneal WBC Peritoneal RBC Periton Neutrophils Periton Lymphocytes Peritoneal Monocytes Peritoneal Other Cells Peritoneal Tot Protein Peritoneal Albumin Peritoneal LDH Peritoneal Glucose Peritoneal Amylase IgG Total IgG Subclass 1 IgG Subclass 2 IgG Subclass 3 IgG Subclass 4 HELEN Screen Free [place] LC, Quant Free Lambda LC, Quant Free [place]/Lambda Ratio 04/06/22 04/06/22 04/06/22 05:00 05:08 07:28 WBC RBC Hgb Hct MCV MCH MCHC RDW Plt Count MPV Immature Gran % (Auto) Neut % (Auto) Lymph % (Auto) [place] % (Auto) Eos % (Auto) Baso % (Auto) Lymph # (Auto) [place] # (Auto) Eos # (Auto) Baso # (Auto) Abs Immat Gran (auto) Absolute Neuts (auto) Absolute Nucleated RBC Nucleated RBC % (auto) Smear Tech's Comments VBG pH 7.31 L VBG pCO2 31 VBG pO2 44 VBG HCO3 16 L VBG O2 Saturation 69.0 VBG Base Excess -9.0 Sodium 136 Potassium 3.4 Chloride 105 Carbon Dioxide 17 L Anion Gap 17 BUN 38 H Creatinine 2.21 H Estim Creat Clear Calc 27.1 Estimated GFR 29 POC Glucose 164 H Random Glucose 217 H Lactic Acid Lactic Acid F/U @ 2Hr Lactic Acid F/U @ 4Hr Calcium 8.3 L Phosphorus 4.6 H Magnesium 1.8 Total Bilirubin 1.0 AST 48 H ALT 26 Alkaline Phosphatase 92 Troponin I High Sens B-Natriuretic Peptide Total Protein 5.6 L Albumin 4.2 Urine Osmolality Urine Creatinine Peritoneal pH Peritoneal WBC Peritoneal RBC Periton Neutrophils Periton Lymphocytes Peritoneal Monocytes Peritoneal Other Cells Peritoneal Tot Protein Peritoneal Albumin Peritoneal LDH Peritoneal Glucose Peritoneal Amylase IgG Total IgG Subclass 1 IgG Subclass 2 IgG Subclass 3 IgG Subclass 4 HELEN Screen Free [place] LC, Quant Free Lambda LC, Quant Free [place]/Lambda Ratio 04/06/22 04/06/22 04/06/22 11:26 Unknown Unknown WBC RBC Hgb Hct MCV MCH MCHC RDW Plt Count MPV Immature Gran % (Auto) Neut % (Auto) Lymph % (Auto) [place] % (Auto) Eos % (Auto) Baso % (Auto) Lymph # (Auto) [place] # (Auto) Eos # (Auto) Baso # (Auto) Abs Immat Gran (auto) Absolute Neuts (auto) Absolute Nucleated RBC Nucleated RBC % (auto) Smear Tech's Comments VBG pH VBG pCO2 VBG pO2 VBG HCO3 VBG O2 Saturation VBG Base Excess Sodium Potassium Chloride Carbon Dioxide Anion Gap BUN Creatinine Estim Creat Clear Calc Estimated GFR POC Glucose 107 Random Glucose Lactic Acid Lactic Acid F/U @ 2Hr Lactic Acid F/U @ 4Hr Calcium Phosphorus Magnesium Total Bilirubin AST ALT Alkaline Phosphatase Troponin I High Sens B-Natriuretic Peptide Total Protein Albumin Urine Osmolality 335 L Urine Creatinine 90.75 Peritoneal pH Peritoneal WBC Peritoneal RBC Periton Neutrophils Periton Lymphocytes Peritoneal Monocytes Peritoneal Other Cells Peritoneal Tot Protein Peritoneal Albumin Peritoneal LDH Peritoneal Glucose Peritoneal Amylase IgG Total IgG Subclass 1 IgG Subclass 2 IgG Subclass 3 IgG Subclass 4 HELEN Screen Free [place] LC, Quant Free Lambda LC, Quant Free [place]/Lambda Ratio Imaging Radiologist's impression: Impressions Chest X-Ray 04/05/22 14:05 IMPRESSION: Tubes and lines as described above. Worsening airspace opacities. Progress Note: A&P Assessment and plan (1) Symptomatic bradycardia: Status: Acute (2) Pulmonary edema with congestive heart failure: Status: Acute Plan 77-year-old gentleman with congestive heart failure who had cardiac arrest yesterday and was intubated. It appears he was bradycardic and hypoxic. Continues to be bradycardic and required dopamine in the ICU and is currently being paced transcutaneously. He has not been making any urine and there is some discussion about doing temporary dialysis. On pressors 10 sedated currently. I tried to decrease his pacing rate but he does not have any significant rhythm in the background currently. He was on amiodarone previously. He has indication for pacemaker currently but continues to be quite sick. I think we can leave him on temporary pacing for now given the fact that he is sedated but once sedation is decreased and he wakes up this will be quite painful for him and may not be the best approach for him. I think thoracic surgery should weigh in about permanent pacemaker placement. In the meantime while he is sedated he can be on transcutaneous pacing. We will follow along with you. Time Spent With Patient Time: Total time managing care of this patient today ____ minutes. Progress Note: Quality Stroke Does the patient have a stroke diagnosis?: No Procedures Date of Service Date of Service: 04/06/22
[2022-04-06] MEDS: propofoL 1,000 MG/100 ML VIAL 14.38 MG IVCONT (14:53)
[2022-04-06] MEDS: DOPamine HCL/D5W 400 MG/250 ML PLAST..BAG 29.96 MG IVCONT ×2 (15:21→23:56)
[2022-04-06 15:45] LABS: Glucose, Whole Blood 87 mg/dL (60-115)
--- NOTE | 2022-04-06 16:09 | MHC.CM.PN ---
Pt on ventilatory support in ICU following cardiac arrest: fragile condition: no plans to vent wean and no family discussions for changes in goals of care. CM to follow and assist w/ d/c planning when appropriate
[2022-04-06 18:10] LABS: Sodium Urine Random < 20.0 mmol/L
[2022-04-06] MEDS: propofoL 1,000 MG/100 ML VIAL 19.18 MG IVCONT (18:34)
[2022-04-06 19:18] LABS: IgA 287 mg/dL (70-320); IgG 767 mg/dL (600-1540); IgM 62 mg/dL (50-300)
[2022-04-06] MEDS: propofoL 1,000 MG/100 ML VIAL 23.97 MG IVCONT (23:10)
[2022-04-07] VITALS (34 sets, daily range): BP systolic 96–141; BP diastolic 38–53; PULSE 45–96; RESP 15–24; TEMP 34.8–38.6; O2SAT 86–100; BMI 27.8
[2022-04-07 00:30] LABS: Glucose, Whole Blood 103 mg/dL (60-115)
[2022-04-07] MEDS: propofoL 1,000 MG/100 ML VIAL 23.97 MG IVCONT ×2 (03:16→07:03)
[2022-04-07] MEDS: fentaNYL citrate/PF 100 MCG/2 ML VIAL IVPUSH (04:22)
[2022-04-07] MEDS: fentaNYL citrate/NS 1,000 MCG/100 ML PLAST..BAG 2.5 MCG IVCONT (04:56)
[2022-04-07 05:12] LABS: VBG Base Excess -10.5 mmol/L; VBG HCO3 15 mmol/L (22-26); VBG pCO2 32 mmHg; VBG pH 7.27 (7.32-7.43); VBG pO2 48 mmHg
[2022-04-07 05:38] LABS: Hematocrit 26.9 % (42.0-52.0); Hemoglobin 8.9 g/dl (14.0-18.0); Mean Corpuscular HGB Conc 33.1 g/dl (31.0-36.0); Mean Corpuscular Hemoglobin 31.2 pg (27.0-33.0); Mean Corpuscular Volume 94.4 fL (80.0-98.0); Mean Platelet Volume 12.7 fL (9.4-12.4); Platelet Count 250 X10*3/uL (160-400); Red Blood Count 2.85 X10*6/uL (4.60-5.80); Red Cell Distribution Width 22.3 % (11.0-16.0); White Blood Count 16.1 X10*3/uL (4.8-10.8)
[2022-04-07 05:43] LABS: NRBC Pct Auto 1.2 /100WBC (0.0-0.2)
[2022-04-07 05:53] LABS: Alanine Aminotransferase 33 U/L (0-40); Albumin Level 3.3 g/dL (3.5-5.0); Alkaline Phosphatase 119 U/L (39-117); Anion Gap 18 (12-20); Aspartate Amino Transferase 67 U/L (5-37); Bilirubin Total 1.6 mg/dL (0.0-1.0); Blood Urea Nitrogen 47 mg/dL (9-16); Calcium 8.3 mg/dL (8.4-10.2); Carbon Dioxide 16 mmol/L (22-29); Chloride 103 mmol/L (96-108); Creatinine Clr Calc Pharmacy 21.3; Estimated Glomerular Filt Rate 20; Glucose Random 124 mg/dL (60-115); Magnesium 2.1 mg/dL (1.6-2.6); Phosphorus 5.7 mg/dL (2.7-4.5); Potassium 4.9 mmol/L (3.3-5.1); Sodium 132 mmol/L (135-145); Total Protein 5.3 g/dL (6.5-8.0)
[2022-04-07 06:16] LABS: Acanthocytes 1+ (0-2) /OIF; Atypical Lymph Absolute Manual 0.2 x10*3/uL; Atypical Lymphs Percent Manual 1 % (0-6); Band Neutrophils Percent 30 % (3-5); Burr Cells 1+ (0-2) /OIF; Large Platelet PRESENT; Lymphocytes Absolute Manual 0.5 X10*3/uL (1.2-4.9); Lymphocytes Percent Manual 3 % (20-40); Macrocytosis 1+ (5-14) /OIF; Metamyelocytes Absolute 0.2 X10*3/uL; Metamyelocytes Percent 1 %; Monocytes Absolute Manual 0.5 X10*3/uL (0.1-1.2); Monocytes Percent Manual 3 % (2-11); Myelocytes Absolute 0.3 X10*/uL; Myelocytes Percent 2 %; Neutrophils Absolute Manual 14.5 X10*3/uL (2.0-8.3); Neutrophils Percent Manual 60 % (45-73); Platelet Estimate NORMAL (NORMAL); Platelet Morphology Comment NORMAL; Polychromasia 1+ (0-2) /OIF; RBC Morphology NOTED; Smudge Cells PRESENT; Toxic Vacuolation PRESENT
[2022-04-07] MEDS: Acetaminophen Supp 650 MG SUPP.RECT PR (06:25)
--- NOTE | 2022-04-07 06:36 | PC.NURSE ---
Addendum entered by Kyree Mchugh RN 04/07/22 06:41: While checking transcutaneous pacing this morning, patient noted to be in junctional rhythm 58-59. RELEASE ENGINEER notified and plan to trial off pacing. Zoll turned off at 0630. Original Note: Noted to have maryellen red bloody secretions from ETT w/sm clots. Igor San RELEASE ENGINEER aware. No new orders at this time. This AM patient noted to be increasingly asynchronous w/vent and double stacking. Maxed on propofol infusion and trialed lavaging to remove clots w/no improvement. RELEASE ENGINEER notified, x1 dose IV Fentanyl ordered and given w/minimal effect lasting approx 10 mins. Patient began to double stack again, Fentanyl gtt ordered and started. Since starting gtt no longer double stacking or asynchronous. Fever of 101.3F this AM. RELEASE ENGINEER notified. New blood cultures obtained, PRN Tylenol given and antibiotics ordered.
[2022-04-07] MEDS: Piperacillin Sodium/Tazobactam 4.5 GM in 0.9 % Sodium Chloride 100 ML IV (07:04)
[2022-04-07] MEDS: 0.9 % Sodium Chloride Flush 3 ML SYRINGE IVFLUSH ×3 (07:06→23:50)
[2022-04-07] MEDS: Famotidine/PF 20 MG/2 ML VIAL IVPUSH (07:06)
[2022-04-07] MEDS: Chlorhexidine Gluc Oral Rinse 15 ML MOUTHWASH BUCCAL ×3 (07:11→19:29)
[2022-04-07 07:19] LABS: Venous Blood Gas Refer to POC result
[2022-04-07] MEDS: DOPamine HCL/D5W 400 MG/250 ML PLAST..BAG 29.96 MG IVCONT (08:17)
[2022-04-07 08:28] LABS: Antibody to SS-A Antigen <1.0 NEG AI (<1.0 NEG); Antibody to SS-B Antigen <1.0 NEG AI (<1.0 NEG); Myeloperoxidase Antibody <1.0 AI; Proteinase 3 PR3 Antibodies <1.0 AI
--- NOTE | 2022-04-07 08:38 | MHC.CLN ---
F/U PT REMAINS INTUBATED AND SEDATED RECOMMEND NEPRO AT MAX GOAL RATE 40ML/HR TO PROVIDE 1728KCALS (2234KCALS WITH SEDATION; 26KCALS/KG), 88G PROTEIN, 698ML FREE WATER FROM FORMULA MONITOR TOLERANCE, RESIDUALS AND LYTES
[2022-04-07] MEDS: Albumin Human 25 % 100 ML IV ×3 (08:58→17:28)
[2022-04-07] MEDS: timoloL maleate 0.5 % Oph Sol 5 ML DRBTL 1 DROP EYE-LEFT (09:03)
[2022-04-07] MEDS: Lactulose 20 GM/30 ML SOLUTION PO ×2 (09:03→19:29)
--- NOTE | 2022-04-07 10:27 | P.PNNP_ITS ---
Subjective Subjective Date of Service: 04/07/22 Interval history: 77-year-old gentleman with underlying AFib, diabetes mellitus, PVD status post right transmetatarsal amputation admitted on 04/01/2022 with weakness, acute renal failure, and ascites with hospital course complicated by progressive hypoxemia and poor response to IV diuresis respiratory arrest on 04/05/2022 with unclear down time, approximately to be 5 minutes, and return of spontaneous circulation after less than 7 minutes of CPR as patient was struggling with intubation during the CPR. post CPR course further complicated by persistent bradycardia with poor response to dopamine, now on transcutaneous pacing, and oliguria. No events overnight. Physical Exam Vital Signs: Vital Signs: Last Vital Signs Temp 100.2 F 04/07/22 09:00 Pulse 58 04/07/22 09:00 Resp 18 04/07/22 09:00 BP 120/47 L 04/07/22 09:00 Pulse Ox 93 04/07/22 09:00 O2 Del Method 04/07/22 09:00 O2 Flow Rate 6 04/05/22 07:30 FiO2 60 04/07/22 09:00 BMI result Body Mass Index 27.8 Const: General: other ( Sedated on the vent) Objective Data Labs CBC & Chem 7: 04/07/22 05:00 04/07/22 05:00 Labs: Laboratory Results - last 24 hr 04/02/22 04/04/22 04/04/22 19:46 12:32 12:32 WBC RBC Hgb Hct MCV MCH MCHC RDW Plt Count MPV Immature Gran % (Auto) Neut % (Auto) Lymph % (Auto) [place] % (Auto) Eos % (Auto) Baso % (Auto) Lymph # (Auto) [place] # (Auto) Eos # (Auto) Baso # (Auto) Abs Immat Gran (auto) Absolute Neuts (auto) Absolute Nucleated RBC Nucleated RBC % (auto) Neutrophils % (Manual) Band Neutrophils % Lymphocytes % (Manual) Atypical Lymphs % (Man) Monocytes % (Manual) Metamyelocytes % Myelocytes % Abs Neuts (Manual) Lymphocytes # (Manual) Atyp Lymphs # (Manual) Monocytes # (Manual) Metamyelocytes # Myelocytes # Smudge Cells Toxic Vacuolation Platelet Estimate Large Platelets Plt Morphology Comment RBC Morphology Polychromasia Macrocytosis Hibbs Cells Acanthocytes (Spur) VBG pH VBG pCO2 VBG pO2 VBG HCO3 VBG O2 Saturation VBG Base Excess Sodium Potassium Chloride Carbon Dioxide Anion Gap BUN Creatinine Estim Creat Clear Calc Estimated GFR POC Glucose Random Glucose Calcium Phosphorus Magnesium Total Bilirubin AST ALT Alkaline Phosphatase Total Protein Albumin Urine Osmolality Ur Random Sodium Urine Creatinine IgG Total 767 IgA Total 287 IgM 62 FREYA Interpretation HELEN Screen NEGATIVE Proteinase 3 (PR3) Ab <1.0 Myeloperoxidase Ab <1.0 SS-A/Ro Antibody <1.0 NEG SS-B/La Antibody <1.0 NEG 04/06/22 04/06/22 04/06/22 11:26 15:41 Unknown WBC RBC Hgb Hct MCV MCH MCHC RDW Plt Count MPV Immature Gran % (Auto) Neut % (Auto) Lymph % (Auto) [place] % (Auto) Eos % (Auto) Baso % (Auto) Lymph # (Auto) [place] # (Auto) Eos # (Auto) Baso # (Auto) Abs Immat Gran (auto) Absolute Neuts (auto) Absolute Nucleated RBC Nucleated RBC % (auto) Neutrophils % (Manual) Band Neutrophils % Lymphocytes % (Manual) Atypical Lymphs % (Man) Monocytes % (Manual) Metamyelocytes % Myelocytes % Abs Neuts (Manual) Lymphocytes # (Manual) Atyp Lymphs # (Manual) Monocytes # (Manual) Metamyelocytes # Myelocytes # Smudge Cells Toxic Vacuolation Platelet Estimate Large Platelets Plt Morphology Comment RBC Morphology Polychromasia Macrocytosis Lety Cells Acanthocytes (Spur) VBG pH VBG pCO2 VBG pO2 VBG HCO3 VBG O2 Saturation VBG Base Excess Sodium Potassium Chloride Carbon Dioxide Anion Gap BUN Creatinine Estim Creat Clear Calc Estimated GFR POC Glucose 107 87 Random Glucose Calcium Phosphorus Magnesium Total Bilirubin AST ALT Alkaline Phosphatase Total Protein Albumin Urine Osmolality Ur Random Sodium Urine Creatinine 90.75 IgG Total IgA Total IgM FREYA Interpretation HELEN Screen Proteinase 3 (PR3) Ab Myeloperoxidase Ab SS-A/Ro Antibody SS-B/La Antibody 04/06/22 04/06/22 04/07/22 Unknown Unknown 00:26 WBC RBC Hgb Hct MCV MCH MCHC RDW Plt Count MPV Immature Gran % (Auto) Neut % (Auto) Lymph % (Auto) [place] % (Auto) Eos % (Auto) Baso % (Auto) Lymph # (Auto) [place] # (Auto) Eos # (Auto) Baso # (Auto) Abs Immat Gran (auto) Absolute Neuts (auto) Absolute Nucleated RBC Nucleated RBC % (auto) Neutrophils % (Manual) Band Neutrophils % Lymphocytes % (Manual) Atypical Lymphs % (Man) Monocytes % (Manual) Metamyelocytes % Myelocytes % Abs Neuts (Manual) Lymphocytes # (Manual) Atyp Lymphs # (Manual) Monocytes # (Manual) Metamyelocytes # Myelocytes # [place]udge Cells Toxic Vacuolation Platelet Estimate Large Platelets Plt Morphology Comment RBC Morphology Polychromasia Macrocytosis Lety Cells Acanthocytes (Spur) VBG pH VBG pCO2 VBG pO2 VBG HCO3 VBG O2 Saturation VBG Base Excess Sodium Potassium Chloride Carbon Dioxide Anion Gap BUN Creatinine Estim Creat Clear Calc Estimated GFR POC Glucose 103 Random Glucose Calcium Phosphorus Magnesium Total Bilirubin AST ALT Alkaline Phosphatase Total Protein Albumin Urine Osmolality 335 L Ur Random Sodium < 20.0 Urine Creatinine IgG Total IgA Total IgM FREYA Interpretation HELEN Screen Proteinase 3 (PR3) Ab Myeloperoxidase Ab SS-A/Ro Antibody SS-B/La Antibody 04/07/22 04/07/22 04/07/22 05:00 05:00 05:04 WBC 16.1 H RBC 2.85 L Hgb 8.9 L Hct 26.9 L MCV 94.4 MCH 31.2 MCHC 33.1 RDW 22.3 H Plt Count 250 MPV 12.7 H Immature Gran % (Auto) Cancelled Neut % (Auto) Cancelled Lymph % (Auto) Cancelled [place] % (Auto) Cancelled Eos % (Auto) Cancelled Baso % (Auto) Cancelled Lymph # (Auto) Cancelled [place] # (Auto) Cancelled Eos # (Auto) Cancelled Baso # (Auto) Cancelled Abs Immat Gran (auto) Cancelled Absolute Neuts (auto) Cancelled Absolute Nucleated RBC 0.190 H Nucleated RBC % (auto) 1.2 H Neutrophils % (Manual) 60 Band Neutrophils % 30 H Lymphocytes % (Manual) 3 L Atypical Lymphs % (Man) 1 Monocytes % (Manual) 3 Metamyelocytes % 1 Myelocytes % 2 Abs Neuts (Manual) 14.5 H Lymphocytes # (Manual) 0.5 L Atyp Lymphs # (Manual) 0.2 Monocytes # (Manual) 0.5 Metamyelocytes # 0.2 Myelocytes # 0.3 Smudge Cells PRESENT Toxic Vacuolation PRESENT Platelet Estimate NORMAL Large Platelets PRESENT Plt Morphology Comment NORMAL RBC Morphology NOTED Polychromasia 1+ (0-2) Macrocytosis 1+ (5-14) Lety Cells 1+ (0-2) Acanthocytes (Spur) 1+ (0-2) VBG pH 7.27 L VBG pCO2 32 VBG pO2 48 VBG HCO3 15 L VBG O2 Saturation 73.0 VBG Base Excess -10.5 Sodium 132 L Potassium 4.9 D Chloride 103 Carbon Dioxide 16 L Anion Gap 18 BUN 47 H Creatinine 3.05 H Estim Creat Clear Calc 21.3 Estimated GFR 20 POC Glucose Random Glucose 124 H Calcium 8.3 L Phosphorus 5.7 H Magnesium 2.1 Total Bilirubin 1.6 H AST 67 H ALT 33 Alkaline Phosphatase 119 H Total Protein 5.3 L Albumin 3.3 L Urine Osmolality Ur Random Sodium Urine Creatinine IgG Total IgA Total IgM FREYA Interpretation HELEN Screen Proteinase 3 (PR3) Ab Myeloperoxidase Ab SS-A/Ro Antibody SS-B/La Antibody Microbiology Microbiology Results: Microbiology 04/05/22 15:37 Abdominal Fluid Gram Stain - Final 04/05/22 15:37 Abdominal Fluid Routine Culture - Final No growth after 2 days 04/05/22 15:37 Abdominal Fluid Anaerobic Culture - Preliminary No growth to date. 04/01/22 12:27 Blood - Venous Blood Culture - Final No growth after 5 days. 04/01/22 12:27 Blood - Venous Blood Culture - Final No growth after 5 days. Procedures Date of Service Date of Service: 04/07/22 Assessment & Plan Assessment and plan (1) Symptomatic bradycardia: Status: Acute (2) Pulmonary edema with congestive heart failure: Status: Acute (3) Respiratory arrest: Status: Acute (4) Acute respiratory failure: Status: Acute (5) CHANTE (acute kidney injury): Status: Acute Assessment and Plan: 77-YEAR-OLD WITH MULTIPLE CHRONIC MEDICAL PROBLEMS, ADMITTED WITH ACUTE KIDNEY INJURY, NON-ANION GAP METABOLIC ACIDOSIS AND NEWLY DISCOVERED ASCITES WITH A HISTORY OF HEAVY NEAR-NEPHROTIC RANGE PROTEINURIA IN THE PAST. he remains oliguric with a low fractional excretion of sodium consistent with either septic or cardiogenic shock his echocardiogram did not show a reduced ejection fraction he is on pressors getting albumin remains oliguric dialysis is ordered today we will attempt fluid removal but he may not tolerate this given his shock state CKD 3: BSL Scr 1.2-1.4 Heavy Uprot: c/w DN Ascites apparently new med problem: scheduled tap REC: w/u for nephrotic syndrome (6) PAD (peripheral artery disease): Status: Acute (7) DMII (diabetes mellitus, type 2): Status: Acute (8) Type 2 diabetes mellitus with peripheral artery disease: Status: Acute (9) Acute kidney injury superimposed on CKD: Status: Acute Plan 77-year-old gentleman with congestive heart failure who had cardiac arrest yesterday and was intubated. It appears he was bradycardic and hypoxic. Continues to be bradycardic and required dopamine in the ICU and is currently being paced transcutaneously. He has not been making any urine and there is some discussion about doing temporary dialysis. On pressors 10 sedated currently. I tried to decrease his pacing rate but he does not have any significant rhythm in the background currently. He was on amiodarone previously. He has indication for pacemaker currently but continues to be quite sick. I think we can leave him on temporary pacing for now given the fact that he is sedated but once sedation is decreased and he wakes up this will be quite painful for him and may not be the best approach for him. I think thoracic surgery should weigh in about permanent pacemaker placement. In the meantime while he is sedated he can be on transcutaneous pacing. We will follow along with you. Time Spent With Patient Time: Total time managing care of this patient today ____ minutes. Progress Note: Quality Stroke Does the patient have a stroke diagnosis?: No
[2022-04-07] MEDS: propofoL 1,000 MG/100 ML VIAL 19.18 MG IVCONT (11:21)
--- NOTE | 2022-04-07 11:44 | PC.NURSE ---
Addendum entered by Trinidad Martinez RN 04/07/22 18:31: 14:00 MD notified no bowel movement since 04/04 despite BID lactulose via OG tube. per MD monitor for BMs and report if no BM by the end of dialysis treatment. 14:18 dialysis treatment started 17:00 dialysis treatment ended. 3.7 L fluid removed 17:45 1,000 ml gastric fluid removed via intermittent low suction this shift. MD notified of total and no bowel movement this shift. 17:45 per MD order, oral contrast media started via OG tube. Administered 120 mL. 18:15 checked gastric residual. 130 ml, returned contents. 18:45 checked gastric residual. 90 ml total, returned contents. Next RN and provider notified. Original Note: 07:30 Patient bathed with full bed bath 08:07 Pre-procedure started for insertion of [place] dialysis catheter 08:11 [place] dialysis catheter inserted to left jugular by MD 10:15 Tube feeding diet started per orders Nepro @10 ml/hr via OG tube 11:20 Residual checked for OG tube and noted 300 ml green/yellow gastric fluid. Per MD started low intermittent suction. 850 ML gastric fluid removed total. Per MD will continue low intermittent suction to OG tube.
[2022-04-07 11:59] LABS: Glucose, Whole Blood 128 mg/dL (60-115)
--- NOTE | 2022-04-07 15:10 | P.PNCA_ITS ---
Subjective Subjective Date of Service: 04/07/22 Interval history: Sedated and ventilated. Currently has [place] rhythm of 50-60 beats per minute. Transcutaneous pacemaker has been removed. He is getting hemodialysis. Physical Exam Vital Signs: Last Vital Signs Temp 99.5 F 04/07/22 15:00 Pulse 53 04/07/22 15:00 Resp 16 04/07/22 15:00 BP 107/50 L 04/07/22 15:00 Pulse Ox 96 04/07/22 15:00 O2 Del Method 04/07/22 15:00 O2 Flow Rate 6 04/05/22 07:30 FiO2 60 04/07/22 15:00 BMI result Body Mass Index 27.8 GENERAL APPEARANCE: Sedated and ventilated. SKIN: no suspicious lesions, warm and dry. HEART: no murmurs, regular rate and rhythm. Bradycardic LUNGS: Clear anteriorly. ABDOMEN: Soft. EXTREMITIES: no significant edema. PERIPHERAL PULSES: equal. Objective Labs and Meds Result diagrams: 04/07/22 05:00 04/07/22 05:00 Lab results: Laboratory Results - last 24 hr 04/02/22 04/04/22 04/06/22 19:46 12:32 15:41 WBC RBC Hgb Hct MCV MCH MCHC RDW Plt Count MPV Immature Gran % (Auto) Neut % (Auto) Lymph % (Auto) [place] % (Auto) Eos % (Auto) Baso % (Auto) Lymph # (Auto) [place] # (Auto) Eos # (Auto) Baso # (Auto) Abs Immat Gran (auto) Absolute Neuts (auto) Absolute Nucleated RBC Nucleated RBC % (auto) Neutrophils % (Manual) Band Neutrophils % Lymphocytes % (Manual) Atypical Lymphs % (Man) Monocytes % (Manual) Metamyelocytes % Myelocytes % Abs Neuts (Manual) Lymphocytes # (Manual) Atyp Lymphs # (Manual) Monocytes # (Manual) Metamyelocytes # Myelocytes # Smudge Cells Toxic Vacuolation Platelet Estimate Large Platelets Plt Morphology Comment RBC Morphology Polychromasia Macrocytosis [place] Cells Acanthocytes (Spur) VBG pH VBG pCO2 VBG pO2 VBG HCO3 VBG O2 Saturation VBG Base Excess Sodium Potassium Chloride Carbon Dioxide Anion Gap BUN Creatinine Estim Creat Clear Calc Estimated GFR POC Glucose 87 Random Glucose Calcium Phosphorus Magnesium Total Bilirubin AST ALT Alkaline Phosphatase Total Protein Albumin Ur Random Sodium IgG Total 767 IgA Total 287 IgM 62 FREYA Interpretation Proteinase 3 (PR3) Ab <1.0 Myeloperoxidase Ab <1.0 SS-A/Ro Antibody <1.0 NEG SS-B/La Antibody <1.0 NEG 04/06/22 04/07/22 04/07/22 Unknown 00:26 05:00 WBC 16.1 H RBC 2.85 L Hgb 8.9 L Hct 26.9 L MCV 94.4 MCH 31.2 MCHC 33.1 RDW 22.3 H Plt Count 250 MPV 12.7 H Immature Gran % (Auto) Cancelled Neut % (Auto) Cancelled Lymph % (Auto) Cancelled [place] % (Auto) Cancelled Eos % (Auto) Cancelled Baso % (Auto) Cancelled Lymph # (Auto) Cancelled [place] # (Auto) Cancelled Eos # (Auto) Cancelled Baso # (Auto) Cancelled Abs Immat Gran (auto) Cancelled Absolute Neuts (auto) Cancelled Absolute Nucleated RBC 0.190 H Nucleated RBC % (auto) 1.2 H Neutrophils % (Manual) 60 Band Neutrophils % 30 H Lymphocytes % (Manual) 3 L Atypical Lymphs % (Man) 1 Monocytes % (Manual) 3 Metamyelocytes % 1 Myelocytes % 2 Abs Neuts (Manual) 14.5 H Lymphocytes # (Manual) 0.5 L Atyp Lymphs # (Manual) 0.2 Monocytes # (Manual) 0.5 Metamyelocytes # 0.2 Myelocytes # 0.3 Smudge Cells PRESENT Toxic Vacuolation PRESENT Platelet Estimate NORMAL Large Platelets PRESENT Plt Morphology Comment NORMAL RBC Morphology NOTED Polychromasia 1+ (0-2) Macrocytosis 1+ (5-14) [place] Cells 1+ (0-2) Acanthocytes (Spur) 1+ (0-2) VBG pH VBG pCO2 VBG pO2 VBG HCO3 VBG O2 Saturation VBG Base Excess Sodium Potassium Chloride Carbon Dioxide Anion Gap BUN Creatinine Estim Creat Clear Calc Estimated GFR POC Glucose 103 Random Glucose Calcium Phosphorus Magnesium Total Bilirubin AST ALT Alkaline Phosphatase Total Protein Albumin Ur Random Sodium < 20.0 IgG Total IgA Total IgM FREYA Interpretation Proteinase 3 (PR3) Ab Myeloperoxidase Ab SS-A/Ro Antibody SS-B/La Antibody 04/07/22 04/07/22 04/07/22 05:00 05:04 11:55 WBC RBC Hgb Hct MCV MCH MCHC RDW Plt Count MPV Immature Gran % (Auto) Neut % (Auto) Lymph % (Auto) [place] % (Auto) Eos % (Auto) Baso % (Auto) Lymph # (Auto) [place] # (Auto) Eos # (Auto) Baso # (Auto) Abs Immat Gran (auto) Absolute Neuts (auto) Absolute Nucleated RBC Nucleated RBC % (auto) Neutrophils % (Manual) Band Neutrophils % Lymphocytes % (Manual) Atypical Lymphs % (Man) Monocytes % (Manual) Metamyelocytes % Myelocytes % Abs Neuts (Manual) Lymphocytes # (Manual) Atyp Lymphs # (Manual) Monocytes # (Manual) Metamyelocytes # Myelocytes # [place] Cells Toxic Vacuolation Platelet Estimate Large Platelets Plt Morphology Comment RBC Morphology Polychromasia Macrocytosis [place] Cells Acanthocytes (Spur) VBG pH 7.27 L VBG pCO2 32 VBG pO2 48 VBG HCO3 15 L VBG O2 Saturation 73.0 VBG Base Excess -10.5 Sodium 132 L Potassium 4.9 D Chloride 103 Carbon Dioxide 16 L Anion Gap 18 BUN 47 H Creatinine 3.05 H Estim Creat Clear Calc 21.3 Estimated GFR 20 POC Glucose 128 H Random Glucose 124 H Calcium 8.3 L Phosphorus 5.7 H Magnesium 2.1 Total Bilirubin 1.6 H AST 67 H ALT 33 Alkaline Phosphatase 119 H Total Protein 5.3 L Albumin 3.3 L Ur Random Sodium IgG Total IgA Total IgM FREYA Interpretation Proteinase 3 (PR3) Ab Myeloperoxidase Ab SS-A/Ro Antibody SS-B/La Antibody Imaging Radiologist's impression: Impressions Paracentesis Ultrasound 04/05/22 14:40 IMPRESSION: Successful ultrasound-guided portable paracentesis performed in ICU. Chest X-Ray 04/07/22 08:40 IMPRESSION: 1. New left central venous dialysis catheter with its tip left of midline. 2. Bilateral patchy airspace opacities are stable. 3. No change in support lines and catheters. Progress Note: A&P Assessment and plan (1) Symptomatic bradycardia: Status: Acute (2) Pulmonary edema with congestive heart failure: Status: Acute Plan 77-year-old gentleman just of heart failure, significant hypoxia and symptomatic bradycardia. Was previously on amiodarone. Amiodarone has been held. He was transferred any asleep paced but since this morning he is [place] rhythm is in 5 0s and transcutaneous pacemaker has been stopped. Continues to be on pressors. Etiology of his hypotension and pressor dependence is unclear to me. He is getting hemodialysis at this stage because he has not been making urine. Overall very sick and prognosis is not great. We will continue to manage conservatively. If he has symptomatic bradycardia again then pacemaker discussion can be restar steven. Thank you for allowing me to participate in the care of your patient. Please feel free to contact me if you have any questions. Time Spent With Patient Time: Total time managing care of this patient today ____ minutes. Progress Note: Quality Stroke Does the patient have a stroke diagnosis?: No Procedures Date of Service Date of Service: 04/07/22
--- NOTE | 2022-04-07 15:15 | PM.CCPN ---
Subjective Subjective Date of Service: 04/07/22 Interval History: 77-year-old gentleman with underlying AFib, diabetes mellitus, PVD status post right transmetatarsal amputation admitted on 04/01/2022 with weakness, acute renal failure, and ascites with hospital course complicated by progressive hypoxemia and poor response to IV diuresis respiratory arrest on 04/05/2022 with unclear down time, approximately to be 5 minutes, and return of spontaneous circulation after less than 7 minutes of CPR as patient was struggling with intubation during the CPR. post CPR course further complicated by persistent bradycardia with poor response to dopamine, requiring transcutaneous pacing for approximately 24 hours, and oliguria. No events overnight. no longer requires transcutaneous pacing. Pressor requirements improved. Still with significant oliguria. Critical Care Time (minutes): 60 Physical Exam Vital Signs: Vital Signs: Last Vital Signs Temp 99.5 F 04/07/22 15:00 Pulse 53 04/07/22 15:00 Resp 16 04/07/22 15:00 BP 107/50 L 04/07/22 15:00 Pulse Ox 96 04/07/22 15:00 O2 Del Method 04/07/22 15:00 O2 Flow Rate 6 04/05/22 07:30 FiO2 60 04/07/22 15:00 BMI result Body Mass Index 27.8 Const: General: no acute distress and other ( Sedated on the vent) Eyes: Sclerae: sclerae normal EOM: EOMs intact bilaterally Neck: Neck: Yes no lymphadenopathy, Yes trachea midline and Yes supple Resp: Auscultation: crackles ( diffuse bilateral) Cardio: Rate: regular rate and bradycardic Rhythm: abnormal rhythm irregularly irregular Heart sounds: no gallops, no murmurs and no rubs GI: Palpation (GI): Soft to palpation and Other GI palpation findings present ( Nontender) Auscultation: normal bowel sounds Extrem: General: No clubbing, No cyanosis and Yes edema ( 1+ bilateral) Objective Data Labs CBC & Chem 7: 04/07/22 05:00 04/07/22 05:00 Labs: Laboratory Results - last 24 hr 04/02/22 04/04/22 04/06/22 19:46 12:32 15:41 WBC RBC Hgb Hct MCV MCH MCHC RDW Plt Count MPV Immature Gran % (Auto) Neut % (Auto) Lymph % (Auto) [place] % (Auto) Eos % (Auto) Baso % (Auto) Lymph # (Auto) [place] # (Auto) Eos # (Auto) Baso # (Auto) Abs Immat Gran (auto) Absolute Neuts (auto) Absolute Nucleated RBC Nucleated RBC % (auto) Neutrophils % (Manual) Band Neutrophils % Lymphocytes % (Manual) Atypical Lymphs % (Man) Monocytes % (Manual) Metamyelocytes % Myelocytes % Abs Neuts (Manual) Lymphocytes # (Manual) Atyp Lymphs # (Manual) Monocytes # (Manual) Metamyelocytes # Myelocytes # [place] Cells Toxic Vacuolation Platelet Estimate Large Platelets Plt Morphology Comment RBC Morphology Polychromasia Macrocytosis [place] Cells Acanthocytes (Spur) VBG pH VBG pCO2 VBG pO2 VBG HCO3 VBG O2 Saturation VBG Base Excess Sodium Potassium Chloride Carbon Dioxide Anion Gap BUN Creatinine Estim Creat Clear Calc Estimated GFR POC Glucose 87 Random Glucose Calcium Phosphorus Magnesium Total Bilirubin AST ALT Alkaline Phosphatase Total Protein Albumin Ur Random Sodium IgG Total 767 IgA Total 287 IgM 62 FREYA Interpretation Proteinase 3 (PR3) Ab <1.0 Myeloperoxidase Ab <1.0 SS-A/Ro Antibody <1.0 NEG SS-B/La Antibody <1.0 NEG 04/06/22 04/07/22 04/07/22 Unknown 00:26 05:00 WBC 16.1 H RBC 2.85 L Hgb 8.9 L Hct 26.9 L MCV 94.4 MCH 31.2 MCHC 33.1 RDW 22.3 H Plt Count 250 MPV 12.7 H Immature Gran % (Auto) Cancelled Neut % (Auto) Cancelled Lymph % (Auto) Cancelled [place] % (Auto) Cancelled Eos % (Auto) Cancelled Baso % (Auto) Cancelled Lymph # (Auto) Cancelled [place] # (Auto) Cancelled Eos # (Auto) Cancelled Baso # (Auto) Cancelled Abs Immat Gran (auto) Cancelled Absolute Neuts (auto) Cancelled Absolute Nucleated RBC 0.190 H Nucleated RBC % (auto) 1.2 H Neutrophils % (Manual) 60 Band Neutrophils % 30 H Lymphocytes % (Manual) 3 L Atypical Lymphs % (Man) 1 Monocytes % (Manual) 3 Metamyelocytes % 1 Myelocytes % 2 Abs Neuts (Manual) 14.5 H Lymphocytes # (Manual) 0.5 L Atyp Lymphs # (Manual) 0.2 Monocytes # (Manual) 0.5 Metamyelocytes # 0.2 Myelocytes # 0.3 [place] Cells PRESENT Toxic Vacuolation PRESENT Platelet Estimate NORMAL Large Platelets PRESENT Plt Morphology Comment NORMAL RBC Morphology NOTED Polychromasia 1+ (0-2) Macrocytosis 1+ (5-14) [place] Cells 1+ (0-2) Acanthocytes (Spur) 1+ (0-2) VBG pH VBG pCO2 VBG pO2 VBG HCO3 VBG O2 Saturation VBG Base Excess Sodium Potassium Chloride Carbon Dioxide Anion Gap BUN Creatinine Estim Creat Clear Calc Estimated GFR POC Glucose 103 Random Glucose Calcium Phosphorus Magnesium Total Bilirubin AST ALT Alkaline Phosphatase Total Protein Albumin Ur Random Sodium < 20.0 IgG Total IgA Total IgM FREYA Interpretation Proteinase 3 (PR3) Ab Myeloperoxidase Ab SS-A/Ro Antibody SS-B/La Antibody 04/07/22 04/07/22 04/07/22 05:00 05:04 11:55 WBC RBC Hgb Hct MCV MCH MCHC RDW Plt Count MPV Immature Gran % (Auto) Neut % (Auto) Lymph % (Auto) [place] % (Auto) Eos % (Auto) Baso % (Auto) Lymph # (Auto) [place] # (Auto) Eos # (Auto) Baso # (Auto) Abs Immat Gran (auto) Absolute Neuts (auto) Absolute Nucleated RBC Nucleated RBC % (auto) Neutrophils % (Manual) Band Neutrophils % Lymphocytes % (Manual) Atypical Lymphs % (Man) Monocytes % (Manual) Metamyelocytes % Myelocytes % Abs Neuts (Manual) Lymphocytes # (Manual) Atyp Lymphs # (Manual) Monocytes # (Manual) Metamyelocytes # Myelocytes # [place] Cells Toxic Vacuolation Platelet Estimate Large Platelets Plt Morphology Comment RBC Morphology Polychromasia Macrocytosis [place] Cells Acanthocytes (Spur) VBG pH 7.27 L VBG pCO2 32 VBG pO2 48 VBG HCO3 15 L VBG O2 Saturation 73.0 VBG Base Excess -10.5 Sodium 132 L Potassium 4.9 D Chloride 103 Carbon Dioxide 16 L Anion Gap 18 BUN 47 H Creatinine 3.05 H Estim Creat Clear Calc 21.3 Estimated GFR 20 POC Glucose 128 H Random Glucose 124 H Calcium 8.3 L Phosphorus 5.7 H Magnesium 2.1 Total Bilirubin 1.6 H AST 67 H ALT 33 Alkaline Phosphatase 119 H Total Protein 5.3 L Albumin 3.3 L Ur Random Sodium IgG Total IgA Total IgM FREYA Interpretation Proteinase 3 (PR3) Ab Myeloperoxidase Ab SS-A/Ro Antibody SS-B/La Antibody Microbiology Microbiology Results: Microbiology 04/05/22 15:37 Abdominal Fluid Gram Stain - Final 04/05/22 15:37 Abdominal Fluid Routine Culture - Final No growth after 2 days 04/05/22 15:37 Abdominal Fluid Anaerobic Culture - Preliminary No growth to date. 04/01/22 12:27 Blood - Venous Blood Culture - Final No growth after 5 days. 04/01/22 12:27 Blood - Venous Blood Culture - Final No growth after 5 days. Progress Note: A&P Assessment and plan (1) Symptomatic bradycardia: Status: Acute (2) Pulmonary edema with congestive heart failure: Status: Acute (3) Acute kidney injury superimposed on CKD: Status: Acute (4) Type 2 diabetes mellitus with peripheral artery disease: Status: Acute (5) Respiratory arrest: Status: Acute (6) Acute respiratory failure: Status: Acute Plan Assessment: 77-year-old gentleman has multiple medical issues admitted with weakness and treated for acute respiratory failure secondary to acute on chronic congestive heart failure with hospital course complicated by respiratory arrests and symptomatic bradycardia now requiring ventilatory support. Plan: Neuro: Patient waking up after CPR, requiring sedative drips to tolerate ventilatory support. Cardiac: Acute on chronic diastolic congestive heart failure. Underlying AFib and CAD. Respiratory arrest. Symptomatic bradycardia requiring transcutaneous pacing for 24 hours, now improved. May still require PPM placement. 2D echocardiogram with normal LVEF and right-sided dysfunction. Pulmonary: acute hypoxic respiratory failure secondary to pulmonary edema resulting in respiratory arrest now requiring ventilatory support. Continue to titrate off ventilatory support as tolerated. Renal: Acute kidney injury on the background of chronic kidney disease likely secondary to exacerbation of acute on chronic diastolic congestive heart failure. Oliguric. Nephrology service care appreciated. Started on hemodialysis support. Continue to monitor renal indices and urine output. Endo: No acute issues. Underlying diabetes mellitus. GI: No acute issues. ID: No acute issues Heme/Onc: No acute issues. Psych: No acute issues. Miscellaneous: No acute issues. Prophylaxis: intermittent pneumatic compression, famotidine Diet: tube feeds Critical care time spent: 60 minutes Quality Stroke Does the patient have a stroke diagnosis?: No VTE Prior VTE?: No VTE Risk Level:: Medical - moderate - high VTE Device Contraindication: Treatment Not Indicated VTE Drug Contraindication: N/A - Med Ordered
[2022-04-07] MEDS: DOPamine HCL/D5W 400 MG/250 ML PLAST..BAG 74.91 MG IVCONT (15:50)
[2022-04-07] MEDS: propofoL 1,000 MG/100 ML VIAL 14.38 MG IVCONT ×2 (16:28→22:29)
[2022-04-07 17:35] LABS: Glucose, Whole Blood 153 mg/dL (60-115)
[2022-04-07] MEDS: DOPamine HCL/D5W 400 MG/250 ML PLAST..BAG 44.94 MG IVCONT (19:30)
[2022-04-07] MEDS: Diatrizoate Meglumine, Sodium 30 ML SOLUTION PO (22:29)
[2022-04-07 23:54] LABS: Glucose, Whole Blood 156 mg/dL (60-115)
[2022-04-08] VITALS (35 sets, daily range): BP systolic 91–154; BP diastolic 40–66; PULSE 51–88; RESP 14–28; TEMP 35–38; O2SAT 88–100; BMI 26.9
[2022-04-08] MEDS: DOPamine HCL/D5W 400 MG/250 ML PLAST..BAG 44.94 MG IVCONT ×5 (00:50→23:22)
[2022-04-08] MEDS: Albumin Human 25 % 100 ML IV (02:15)
[2022-04-08] MEDS: propofoL 1,000 MG/100 ML VIAL 11.99 MG IVCONT (03:39)
[2022-04-08] MEDS: fentaNYL citrate/NS 1,000 MCG/100 ML PLAST..BAG 2.5 MCG IVCONT (03:49)
[2022-04-08 05:18] LABS: VBG Base Excess -11.6 mmol/L; VBG HCO3 14 mmol/L (22-26); VBG pCO2 32 mmHg; VBG pH 7.24 (7.32-7.43); VBG pO2 53 mmHg
[2022-04-08 05:24] LABS: Hematocrit 23.8 % (42.0-52.0); Mean Corpuscular HGB Conc 33.6 g/dl (31.0-36.0); Mean Corpuscular Hemoglobin 30.8 pg (27.0-33.0); Mean Corpuscular Volume 91.5 fL (80.0-98.0); Mean Platelet Volume 12.2 fL (9.4-12.4); NRBC Pct Auto 0.7 /100WBC (0.0-0.2); Platelet Count 157 X10*3/uL (160-400); Red Cell Distribution Width 21.9 % (11.0-16.0); White Blood Count 13.6 X10*3/uL (4.8-10.8)
--- NOTE | 2022-04-08 05:27 | PC.NURSE ---
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
[2022-04-08 05:42] LABS: Albumin Level 4.1 g/dL (3.5-5.0); Anion Gap 18 (12-20); Blood Urea Nitrogen 49 mg/dL (9-16); Calcium 8.3 mg/dL (8.4-10.2); Carbon Dioxide 16 mmol/L (22-29); Chloride 101 mmol/L (96-108); Estimated Glomerular Filt Rate 17; Glucose Random 174 mg/dL (60-115); Magnesium 2.1 mg/dL (1.6-2.6); Potassium 4.6 mmol/L (3.3-5.1); Sodium 130 mmol/L (135-145)
[2022-04-08 05:50] LABS: Band Neutrophils Percent 10 % (3-5); Lymphocytes Absolute Manual 0.4 X10*3/uL (1.2-4.9); Lymphocytes Percent Manual 3 % (20-40); Monocytes Absolute Manual 0.8 X10*3/uL (0.1-1.2); Monocytes Percent Manual 6 % (2-11); Neutrophils Absolute Manual 12.4 X10*3/uL (2.0-8.3); Neutrophils Percent Manual 81 % (45-73)
[2022-04-08 05:51] LABS: Nucleated Red Blood Cells 2 /100WBC (0-0); Platelet Estimate NORMAL (NORMAL); Platelet Morphology Comment NORMAL; RBC Morphology NOTED
[2022-04-08 05:52] LABS: Burr Cells 1+ (0-2) /OIF; Large Platelet PRESENT; Polychromasia 1+ (0-2) /OIF; Smudge Cells PRESENT; Toxic Granulation PRESENT; Toxic Vacuolation PRESENT
[2022-04-08 06:03] LABS: Thyroid Stimulating Hormone 1.27 uIU/mL (0.32-4.0)
[2022-04-08 06:21] LABS: Venous Blood Gas Refer to POC result
[2022-04-08] MEDS: 0.9 % Sodium Chloride Flush 3 ML SYRINGE IVFLUSH ×3 (07:23→23:23)
[2022-04-08] MEDS: Famotidine/PF 20 MG/2 ML VIAL IVPUSH (07:23)
[2022-04-08] MEDS: Lactulose 20 GM/30 ML SOLUTION PO ×2 (07:23→19:28)
[2022-04-08] MEDS: Chlorhexidine Gluc Oral Rinse 15 ML MOUTHWASH BUCCAL ×3 (07:23→19:28)
[2022-04-08] MEDS: Ampicillin Sodium/Sulbactam Na 1.5 GM in 0.9 % Sodium Chloride 100 ML IV (08:18)
[2022-04-08] MEDS: timoloL maleate 0.5 % Oph Sol 5 ML DRBTL 1 DROP EYE-LEFT (08:18)
--- NOTE | 2022-04-08 09:34 | PM.PNNEP ---
Subjective Subjective Date of Service: 04/08/22 Interval history: The patient is a 77-year-old gentleman, BASELINE creatinine is around 1.2 to 1.3. ? history of multiple chronic medical problems including diabetes with diabetic foot ulcer infection in the past and toe amputations, hypertension, atrial fibrillation maintained on Eliquis, hyperlipidemia, peripheral vascular disease, who presented to the emergency room with generalized weakness and unwitnessed fall.? CAT scan, which showed large amount of ascites AFib, diabetes mellitus, PVD status post right transmetatarsal amputation admitted on 04/01/2022 with weakness, acute renal failure, and ascites with hospital course complicated by progressive hypoxemia and poor response to IV diuresis respiratory arrest on 04/05/2022 with unclear down time, approximately to be 5 minutes, and return of spontaneous circulation after less than 7 minutes of CPR as patient was struggling with intubation during the CPR. post CPR course further complicated by persistent bradycardia with poor response to dopamine, requiring transcutaneous pacing for approximately 24 hours, and oliguria. No events overnight. no longer requires transcutaneous pacing. Pressor requirements improved. Still IS oliguriC DIALYSIS YESTERDAY WITH FLUID REMOVAL TOLERATED . Physical Exam Vital Signs: Vital Signs: Last Vital Signs Temp 97.7 F 04/08/22 09:00 Pulse 65 04/08/22 09:00 Resp 22 H 04/08/22 09:00 BP 126/51 L 04/08/22 09:00 Pulse Ox 97 04/08/22 09:00 O2 Del Method 04/08/22 09:00 O2 Flow Rate 6 04/05/22 07:30 FiO2 50 04/08/22 09:00 BMI result Body Mass Index 26.9 Const: General: no acute distress, awake, confusion and other ( Sedated on the vent) Nutritional Appearance: well nourished Orientation/consciousness: confusion HEENT: Head: Yes normocephalic and Yes atraumatic Eyes: Sclerae: sclerae normal Neck: Neck: Yes no lymphadenopathy, Yes trachea midline and Yes supple Resp: Other: Breathing comfortably on room air, no respiratory distress Auscultation: crackles ( diffuse bilateral) Cardio: Rate: regular rate Rhythm: regular rhythm Heart sounds: no gallops, no murmurs and no rubs GI: Other: softly distended without tympany to percussion. Decreased bowel sounds. Mild tenderness to deep palpation in the left lower quadrant without rebound, guarding or rigidity. Palpation (GI): Soft to palpation and Other GI palpation findings present ( Nontender) Auscultation: normal bowel sounds Skin: Other: Warm, dry, no rash Neuro: General: confusion Extrem: General: No clubbing, No cyanosis and Yes edema ( 2+ bilateral) Objective Data Labs CBC & Chem 7: 04/08/22 05:12 04/08/22 05:12 Labs: Laboratory Results - last 24 hr 04/04/22 04/07/22 04/07/22 12:32 11:55 17:31 WBC RBC Hgb Hct MCV MCH MCHC RDW Plt Count MPV Immature Gran % (Auto) Neut % (Auto) Lymph % (Auto) [place] % (Auto) Eos % (Auto) Baso % (Auto) Lymph # (Auto) [place] # (Auto) Eos # (Auto) Baso # (Auto) Abs Immat Gran (auto) Absolute Neuts (auto) Absolute Nucleated RBC Nucleated RBC % (auto) Neutrophils % (Manual) Band Neutrophils % Lymphocytes % (Manual) Monocytes % (Manual) Abs Neuts (Manual) Lymphocytes # (Manual) Monocytes # (Manual) Nucleated RBCs Smudge Cells Toxic Granulation Toxic Vacuolation Platelet Estimate Large Platelets Plt Morphology Comment RBC Morphology Polychromasia [place] Cells VBG pH VBG pCO2 VBG pO2 VBG HCO3 VBG O2 Saturation VBG Base Excess Sodium Potassium Chloride Carbon Dioxide Anion Gap BUN Creatinine Estim Creat Clear Calc Estimated GFR POC Glucose 128 H 153 H Random Glucose Calcium Phosphorus Magnesium Albumin TSH HELEN Titer TNP HELEN Titer 2 TNP HELEN Titer 3 TNP HELEN Pattern TNP HELEN Pattern 2 TNP HELEN Pattern 3 TNP 04/07/22 04/08/22 04/08/22 23:50 05:11 05:12 WBC 13.6 H RBC 2.60 L Hgb 8.0 L Hct 23.8 L MCV 91.5 MCH 30.8 MCHC 33.6 RDW 21.9 H Plt Count 157 L D MPV 12.2 Immature Gran % (Auto) Cancelled Neut % (Auto) Cancelled Lymph % (Auto) Cancelled [place] % (Auto) Cancelled Eos % (Auto) Cancelled Baso % (Auto) Cancelled Lymph # (Auto) Cancelled [place] # (Auto) Cancelled Eos # (Auto) Cancelled Baso # (Auto) Cancelled Abs Immat Gran (auto) Cancelled Absolute Neuts (auto) Cancelled Absolute Nucleated RBC 0.090 H Nucleated RBC % (auto) 0.7 H Neutrophils % (Manual) 81 H Band Neutrophils % 10 H Lymphocytes % (Manual) 3 L Monocytes % (Manual) 6 Abs Neuts (Manual) 12.4 H Lymphocytes # (Manual) 0.4 L Monocytes # (Manual) 0.8 Nucleated RBCs 2 H Smudge Cells PRESENT Toxic Granulation PRESENT Toxic Vacuolation PRESENT Platelet Estimate NORMAL Large Platelets PRESENT Plt Morphology Comment NORMAL RBC Morphology NOTED Polychromasia 1+ (0-2) [place] Cells 1+ (0-2) VBG pH 7.24 L VBG pCO2 32 VBG pO2 53 VBG HCO3 14 L VBG O2 Saturation 80.0 VBG Base Excess -11.6 Sodium Potassium Chloride Carbon Dioxide Anion Gap BUN Creatinine Estim Creat Clear Calc Estimated GFR POC Glucose 156 H Random Glucose Calcium Phosphorus Magnesium Albumin TSH HELEN Titer HELEN Titer 2 HELEN Titer 3 HELEN Pattern HELEN Pattern 2 HELEN Pattern 3 04/08/22 04/08/22 05:12 05:12 WBC RBC Hgb Hct MCV MCH MCHC RDW Plt Count MPV Immature Gran % (Auto) Neut % (Auto) Lymph % (Auto) [place] % (Auto) Eos % (Auto) Baso % (Auto) Lymph # (Auto) [place] # (Auto) Eos # (Auto) Baso # (Auto) Abs Immat Gran (auto) Absolute Neuts (auto) Absolute Nucleated RBC Nucleated RBC % (auto) Neutrophils % (Manual) Band Neutrophils % Lymphocytes % (Manual) Monocytes % (Manual) Abs Neuts (Manual) Lymphocytes # (Manual) Monocytes # (Manual) Nucleated RBCs Smudge Cells Toxic Granulation Toxic Vacuolation Platelet Estimate Large Platelets Plt Morphology Comment RBC Morphology Polychromasia [place] Cells VBG pH VBG pCO2 VBG pO2 VBG HCO3 VBG O2 Saturation VBG Base Excess Sodium 130 L Potassium 4.6 Chloride 101 Carbon Dioxide 16 L Anion Gap 18 BUN 49 H Creatinine 3.52 H Estim Creat Clear Calc 17.0 Estimated GFR 17 POC Glucose Random Glucose 174 H Calcium 8.3 L Phosphorus 6.0 H Magnesium 2.1 Albumin 4.1 TSH 1.27 HELEN Titer HELEN Titer 2 HELEN Titer 3 HELEN Pattern HELEN Pattern 2 HELEN Pattern 3 Microbiology Microbiology Results: Microbiology 04/07/22 06:38 Blood - Venous Blood Culture - Preliminary No growth after 24 hours. 04/07/22 06:38 Blood - Venous Blood Culture - Preliminary No growth after 24 hours. 04/05/22 15:37 Abdominal Fluid Gram Stain - Final 04/05/22 15:37 Abdominal Fluid Routine Culture - Final No growth after 2 days 04/05/22 15:37 Abdominal Fluid Anaerobic Culture - Preliminary No growth to date. 04/01/22 12:27 Blood - Venous Blood Culture - Final No growth after 5 days. 04/01/22 12:27 Blood - Venous Blood Culture - Final No growth after 5 days. Procedures Date of Service Date of Service: 04/08/22 Assessment & Plan Assessment and plan (1) Symptomatic bradycardia: Status: Acute (2) Pulmonary edema with congestive heart failure: Status: Acute (3) Respiratory arrest: Status: Acute (4) Acute respiratory failure: Status: Acute (5) CHANTE (acute kidney injury): Status: Acute Assessment and Plan: 77-YEAR-OLD WITH MULTIPLE CHRONIC MEDICAL PROBLEMS, ADMITTED WITH ACUTE KIDNEY INJURY, NON-ANION GAP METABOLIC ACIDOSIS AND NEWLY DISCOVERED ASCITES WITH A HISTORY OF HEAVY NEAR-NEPHROTIC RANGE PROTEINURIA IN THE PAST. he remains oliguric with a low fractional excretion of sodium consistent with either septic or cardiogenic shock his echocardiogram did not show a reduced ejection fraction he is on pressors getting albumin remains oliguric dialysis YESTERDAY WILL CONTINUE TO SUPPORT WITH DIALYSIS NEEDED CKD 3: BSL Scr 1.2-1.4 Heavy Uprot: c/w DN Ascites apparently new med problem: scheduled tap REC: w/u for nephrotic syndrome (6) PAD (peripheral artery disease): Status: Acute (7) DMII (diabetes mellitus, type 2): Status: Acute (8) Type 2 diabetes mellitus with peripheral artery disease: Status: Acute (9) Acute kidney injury superimposed on CKD: Status: Acute Plan 77-year-old gentleman with congestive heart failure who had cardiac arrest yesterday and was intubated. It appears he was bradycardic and hypoxic. Continues to be bradycardic and required dopamine in the ICU and is currently being paced transcutaneously. He has not been making any urine and there is some discussion about doing temporary dialysis. On pressors 10 sedated currently. I tried to decrease his pacing rate but he does not have any significant rhythm in the background currently. He was on amiodarone previously. He has indication for pacemaker currently but continues to be quite sick. I think we can leave him on temporary pacing for now given the fact that he is sedated but once sedation is decreased and he wakes up this will be quite painful for him and may not be the best approach for him. I think thoracic surgery should weigh in about permanent pacemaker placement. In the meantime while he is sedated he can be on transcutaneous pacing. We will follow along with you. Time Spent With Patient Time: Total time managing care of this patient today ____ minutes. Progress Note: Quality Stroke Does the patient have a stroke diagnosis?: No
[2022-04-08 13:28] LABS: Glucose, Whole Blood 131 mg/dL (60-115)
--- NOTE | 2022-04-08 14:02 | PM.CCPN ---
Subjective Subjective Date of Service: 04/08/22 Interval History: 77-year-old gentleman with underlying AFib, diabetes mellitus, PVD status post right transmetatarsal amputation admitted on 04/01/2022 with weakness, acute renal failure, and ascites with hospital course complicated by progressive hypoxemia and poor response to IV diuresis respiratory arrest on 04/05/2022 with unclear down time, approximately to be 5 minutes, and return of spontaneous circulation after less than 7 minutes of CPR as patient was struggling with intubation during the CPR. post CPR course further complicated by persistent bradycardia with poor response to dopamine, requiring transcutaneous pacing for approximately 24 hours, and oliguria. Now requiring hemodialysis support. No events overnight. Ventilator support requirements improving with hemodialysis. No longer bradycardic. Critical Care Time (minutes): 45 Physical Exam Vital Signs: Vital Signs: Last Vital Signs Temp 98.1 F 04/08/22 13:00 Pulse 82 04/08/22 13:00 Resp 17 04/08/22 13:00 BP 130/55 L 04/08/22 13:00 Pulse Ox 96 04/08/22 13:00 O2 Del Method 04/08/22 13:00 O2 Flow Rate 6 04/05/22 07:30 FiO2 50 04/08/22 13:00 BMI result Body Mass Index 26.9 Const: General: no acute distress and other ( Poor arousal with sedation vacation) Eyes: Sclerae: sclerae normal Neck: Neck: Yes no lymphadenopathy, Yes trachea midline and Yes supple Resp: Auscultation: crackles ( diffuse bilateral) Cardio: Rate: regular rate Rhythm: abnormal rhythm irregularly irregular Heart sounds: no gallops, no murmurs and no rubs GI: Palpation (GI): Soft to palpation and Other GI palpation findings present ( Nontender) Auscultation: normal bowel sounds Extrem: General: Yes no pedal edema, No clubbing, No cyanosis and Yes edema ( trace bilateral) Objective Data Labs CBC & Chem 7: 04/08/22 05:12 04/08/22 05:12 Labs: Laboratory Results - last 24 hr 04/04/22 04/07/22 04/07/22 12:32 17:31 23:50 WBC RBC Hgb Hct MCV MCH MCHC RDW Plt Count MPV Immature Gran % (Auto) Neut % (Auto) Lymph % (Auto) [place] % (Auto) Eos % (Auto) Baso % (Auto) Lymph # (Auto) [place] # (Auto) Eos # (Auto) Baso # (Auto) Abs Immat Gran (auto) Absolute Neuts (auto) Absolute Nucleated RBC Nucleated RBC % (auto) Neutrophils % (Manual) Band Neutrophils % Lymphocytes % (Manual) Monocytes % (Manual) Abs Neuts (Manual) Lymphocytes # (Manual) Monocytes # (Manual) Nucleated RBCs Smudge Cells Toxic Granulation Toxic Vacuolation Platelet Estimate Large Platelets Plt Morphology Comment RBC Morphology Polychromasia [place] Cells VBG pH VBG pCO2 VBG pO2 VBG HCO3 VBG O2 Saturation VBG Base Excess Sodium Potassium Chloride Carbon Dioxide Anion Gap BUN Creatinine Estim Creat Clear Calc Estimated GFR POC Glucose 153 H 156 H Random Glucose Calcium Phosphorus Magnesium Albumin TSH HELEN Titer TNP HLEEN Titer 2 TNP HELEN Titer 3 TNP HELEN Pattern TNP HELEN Pattern 2 TNP HELEN Pattern 3 TNP 04/08/22 04/08/22 04/08/22 05:11 05:12 05:12 WBC 13.6 H RBC 2.60 L Hgb 8.0 L Hct 23.8 L MCV 91.5 MCH 30.8 MCHC 33.6 RDW 21.9 H Plt Count 157 L D MPV 12.2 Immature Gran % (Auto) Cancelled Neut % (Auto) Cancelled Lymph % (Auto) Cancelled [place] % (Auto) Cancelled Eos % (Auto) Cancelled Baso % (Auto) Cancelled Lymph # (Auto) Cancelled [place] # (Auto) Cancelled Eos # (Auto) Cancelled Baso # (Auto) Cancelled Abs Immat Gran (auto) Cancelled Absolute Neuts (auto) Cancelled Absolute Nucleated RBC 0.090 H Nucleated RBC % (auto) 0.7 H Neutrophils % (Manual) 81 H Band Neutrophils % 10 H Lymphocytes % (Manual) 3 L Monocytes % (Manual) 6 Abs Neuts (Manual) 12.4 H Lymphocytes # (Manual) 0.4 L Monocytes # (Manual) 0.8 Nucleated RBCs 2 H Smudge Cells PRESENT Toxic Granulation PRESENT Toxic Vacuolation PRESENT Platelet Estimate NORMAL Large Platelets PRESENT Plt Morphology Comment NORMAL RBC Morphology NOTED Polychromasia 1+ (0-2) [place] Cells 1+ (0-2) VBG pH 7.24 L VBG pCO2 32 VBG pO2 53 VBG HCO3 14 L VBG O2 Saturation 80.0 VBG Base Excess -11.6 Sodium 130 L Potassium 4.6 Chloride 101 Carbon Dioxide 16 L Anion Gap 18 BUN 49 H Creatinine 3.52 H Estim Creat Clear Calc 17.0 Estimated GFR 17 POC Glucose Random Glucose 174 H Calcium 8.3 L Phosphorus 6.0 H Magnesium 2.1 Albumin 4.1 TSH HELEN Titer HELEN Titer 2 HELEN Titer 3 HELEN Pattern HELEN Pattern 2 HELEN Pattern 3 04/08/22 04/08/22 05:12 11:51 WBC RBC Hgb Hct MCV MCH MCHC RDW Plt Count MPV Immature Gran % (Auto) Neut % (Auto) Lymph % (Auto) [place] % (Auto) Eos % (Auto) Baso % (Auto) Lymph # (Auto) [place] # (Auto) Eos # (Auto) Baso # (Auto) Abs Immat Gran (auto) Absolute Neuts (auto) Absolute Nucleated RBC Nucleated RBC % (auto) Neutrophils % (Manual) Band Neutrophils % Lymphocytes % (Manual) Monocytes % (Manual) Abs Neuts (Manual) Lymphocytes # (Manual) Monocytes # (Manual) Nucleated RBCs Smudge Cells Toxic Granulation Toxic Vacuolation Platelet Estimate Large Platelets Plt Morphology Comment RBC Morphology Polychromasia [place] Cells VBG pH VBG pCO2 VBG pO2 VBG HCO3 VBG O2 Saturation VBG Base Excess Sodium Potassium Chloride Carbon Dioxide Anion Gap BUN Creatinine Estim Creat Clear Calc Estimated GFR POC Glucose 131 H Random Glucose Calcium Phosphorus Magnesium Albumin TSH 1.27 HELEN Titer HELEN Titer 2 HELEN Titer 3 HELEN Pattern HELEN Pattern 2 HELEN Pattern 3 Microbiology Microbiology Results: Microbiology 04/05/22 15:37 Abdominal Fluid Gram Stain - Final 04/05/22 15:37 Abdominal Fluid Routine Culture - Final No growth after 2 days 04/05/22 15:37 Abdominal Fluid Anaerobic Culture - Preliminary No growth to date. 04/07/22 06:38 Blood - Venous Blood Culture - Preliminary No growth after 24 hours. 04/07/22 06:38 Blood - Venous Blood Culture - Preliminary No growth after 24 hours. 04/01/22 12:27 Blood - Venous Blood Culture - Final No growth after 5 days. 04/01/22 12:27 Blood - Venous Blood Culture - Final No growth after 5 days. Progress Note: A&P Assessment and plan (1) Pulmonary edema with congestive heart failure: Status: Acute (2) Acute kidney injury superimposed on CKD: Status: Acute (3) Type 2 diabetes mellitus with peripheral artery disease: Status: Acute (4) Acute respiratory failure: Status: Acute (5) Respiratory arrest: Status: Acute Plan Assessment: 77-year-old gentleman has multiple medical issues admitted with weakness and treated for acute respiratory failure secondary to acute on chronic congestive heart failure with hospital course complicated by respiratory arrests and symptomatic bradycardia now requiring ventilatory support. Plan: Neuro: Patient waking up after CPR, requiring sedative drips to tolerate ventilatory support, though not puposeful with sedation vacation. Cardiac: Acute on chronic diastolic congestive heart failure. Underlying AFib and CAD. Respiratory arrest. Symptomatic bradycardia requiring transcutaneous pacing for 24 hours, now resolved. 2D echocardiogram with normal LVEF and right-sided dysfunction. Improving with hemodialysis. Pulmonary: acute hypoxic respiratory failure secondary to pulmonary edema resulting in respiratory arrest now requiring ventilatory support. Continue to titrate off ventilatory support as tolerated. Renal: Acute kidney injury on the background of chronic kidney disease likely secondary to exacerbation of acute on chronic diastolic congestive heart failure. Oliguric. Nephrology service care appreciated. Continue on hemodialysis support. Continue to monitor renal indices and urine output. Endo: No acute issues. Underlying diabetes mellitus. GI: abdominal distension increased residuals, CT abdomen without evidence of bowel obstruction. Likely ileus. ID: No acute issues Heme/Onc: No acute issues. Psych: No acute issues. Miscellaneous: No acute issues. Prophylaxis: intermittent pneumatic compression, famotidine Diet: tube feeds Critical care time spent: 45 Quality Stroke Does the patient have a stroke diagnosis?: No VTE Prior VTE?: No VTE Risk Level:: Medical - moderate - high VTE Device Contraindication: Treatment Not Indicated VTE Drug Contraindication: N/A - Med Ordered
[2022-04-08] MEDS: Heparin Sodium,Porcine 5,000 UNIT/ML VIAL 5000 UNIT SUBCUT ×2 (15:37→22:16)
[2022-04-08] MEDS: cefTRIAXone sodium 1 GM in 0.9 % Sodium Chloride 50 ML IV (15:38)
--- NOTE | 2022-04-08 16:04 | MHC.CM.PN ---
Pt continues care in ICU: on ventilatory support and hemodialysis following CPR. Plans of care are for sedation reduction for vent weaning. Pt will have a prolonged hospital course and likely require STR. CM to approach family/pt with d/c options as it becomes appropriate to do so.
--- NOTE | 2022-04-08 16:39 | PM.PNCARD ---
Subjective Subjective Date of Service: 04/08/22 Interval history: Seen and examined at bedside. Continues to be sedated ventilated. On hemodialysis. On pressors. Physical Exam Vital Signs: Last Vital Signs Temp 99.1 F 04/08/22 16:00 Pulse 54 04/08/22 16:00 Resp 18 04/08/22 16:00 BP 129/50 L 04/08/22 16:00 Pulse Ox 92 04/08/22 16:00 O2 Del Method 04/08/22 16:00 O2 Flow Rate 6 04/05/22 07:30 FiO2 50 04/08/22 16:00 BMI result Body Mass Index 26.9 GENERAL APPEARANCE: Sedated and ventilated. SKIN: no suspicious lesions, warm and dry. HEART: no murmurs, regular rate and rhythm. LUNGS: Clear anteriorly. ABDOMEN: Soft. EXTREMITIES: no significant edema. PERIPHERAL PULSES: equal. Objective Labs and Meds Result diagrams: 04/08/22 05:12 04/08/22 05:12 Lab results: Laboratory Results - last 24 hr 04/07/22 04/07/22 04/08/22 17:31 23:50 05:11 WBC RBC Hgb Hct MCV MCH MCHC RDW Plt Count MPV Immature Gran % (Auto) Neut % (Auto) Lymph % (Auto) [place] % (Auto) Eos % (Auto) Baso % (Auto) Lymph # (Auto) [place] # (Auto) Eos # (Auto) Baso # (Auto) Abs Immat Gran (auto) Absolute Neuts (auto) Absolute Nucleated RBC Nucleated RBC % (auto) Neutrophils % (Manual) Band Neutrophils % Lymphocytes % (Manual) Monocytes % (Manual) Abs Neuts (Manual) Lymphocytes # (Manual) Monocytes # (Manual) Nucleated RBCs Smudge Cells Toxic Granulation Toxic Vacuolation Platelet Estimate Large Platelets Plt Morphology Comment RBC Morphology Polychromasia [place] Cells VBG pH 7.24 L VBG pCO2 32 VBG pO2 53 VBG HCO3 14 L VBG O2 Saturation 80.0 VBG Base Excess -11.6 Sodium Potassium Chloride Carbon Dioxide Anion Gap BUN Creatinine Estim Creat Clear Calc Estimated GFR POC Glucose 153 H 156 H Random Glucose Calcium Phosphorus Magnesium Albumin TSH 04/08/22 04/08/22 04/08/22 05:12 05:12 05:12 WBC 13.6 H RBC 2.60 L Hgb 8.0 L Hct 23.8 L MCV 91.5 MCH 30.8 MCHC 33.6 RDW 21.9 H Plt Count 157 L D MPV 12.2 Immature Gran % (Auto) Cancelled Neut % (Auto) Cancelled Lymph % (Auto) Cancelled [place] % (Auto) Cancelled Eos % (Auto) Cancelled Baso % (Auto) Cancelled Lymph # (Auto) Cancelled [place] # (Auto) Cancelled Eos # (Auto) Cancelled Baso # (Auto) Cancelled Abs Immat Gran (auto) Cancelled Absolute Neuts (auto) Cancelled Absolute Nucleated RBC 0.090 H Nucleated RBC % (auto) 0.7 H Neutrophils % (Manual) 81 H Band Neutrophils % 10 H Lymphocytes % (Manual) 3 L Monocytes % (Manual) 6 Abs Neuts (Manual) 12.4 H Lymphocytes # (Manual) 0.4 L Monocytes # (Manual) 0.8 Nucleated RBCs 2 H Smudge Cells PRESENT Toxic Granulation PRESENT Toxic Vacuolation PRESENT Platelet Estimate NORMAL Large Platelets PRESENT Plt Morphology Comment NORMAL RBC Morphology NOTED Polychromasia 1+ (0-2) [place]y Cells 1+ (0-2) VBG pH VBG pCO2 VBG pO2 VBG HCO3 VBG O2 Saturation VBG Base Excess Sodium 130 L Potassium 4.6 Chloride 101 Carbon Dioxide 16 L Anion Gap 18 BUN 49 H Creatinine 3.52 H Estim Creat Clear Calc 17.0 Estimated GFR 17 POC Glucose Random Glucose 174 H Calcium 8.3 L Phosphorus 6.0 H Magnesium 2.1 Albumin 4.1 TSH 1.27 04/08/22 11:51 WBC RBC Hgb Hct MCV MCH MCHC RDW Plt Count MPV Immature Gran % (Auto) Neut % (Auto) Lymph % (Auto) [place] % (Auto) Eos % (Auto) Baso % (Auto) Lymph # (Auto) [place] # (Auto) Eos # (Auto) Baso # (Auto) Abs Immat Gran (auto) Absolute Neuts (auto) Absolute Nucleated RBC Nucleated RBC % (auto) Neutrophils % (Manual) Band Neutrophils % Lymphocytes % (Manual) Monocytes % (Manual) Abs Neuts (Manual) Lymphocytes # (Manual) Monocytes # (Manual) Nucleated RBCs Smudge Cells Toxic Granulation Toxic Vacuolation Platelet Estimate Large Platelets Plt Morphology Comment RBC Morphology Polychromasia [place] Cells VBG pH VBG pCO2 VBG pO2 VBG HCO3 VBG O2 Saturation VBG Base Excess Sodium Potassium Chloride Carbon Dioxide Anion Gap BUN Creatinine Estim Creat Clear Calc Estimated GFR POC Glucose 131 H Random Glucose Calcium Phosphorus Magnesium Albumin TSH Imaging Radiologist's impression: Impressions Abdomen/Pelvis CT 04/08/22 01:30 IMPRESSION: 1. No evidence of bowel obstruction. Moderate amount of free fluid. 2. Small pleural effusions with adjacent dependent opacities favoring atelectasis. Septal thickening and groundglass opacity at the lung bases suspicious for edema. 3. Anasarca. Progress Note: A&P Assessment and plan (1) Pulmonary edema with congestive heart failure: Status: Acute (2) Symptomatic bradycardia: Status: Inactive Plan 77-year-old gentleman with heart failure, significant hypoxia and symptomatic bradycardia. Was previously on amiodarone. Amiodarone has been held. Heart rate has been in 50s. Continues to be pressor dependent. He has acute kidney injury and is currently getting dialysis. Unclear about neurological status currently. Still pressor dependent and this is not explained by LV assessment by echocardiography. We will continue to manage conservatively. If he has symptomatic bradycardia again then pacemaker discussion can be restarted. Thank you for allowing me to participate in the care of your patient. Please feel free to contact me if you have any questions. Time Spent With Patient Time: Total time managing care of this patient today ____ minutes. Progress Note: Quality Stroke Does the patient have a stroke diagnosis?: No Procedures Date of Service Date of Service: 04/08/22
--- NOTE | 2022-04-08 18:37 | PC.NURSE ---
Pt initiated on sedation vacation at 0940; TF started at 0950(0 residuals) initially, tolerating well. Pt waking up and opens eyes to voice but unable to follow commands, MD JAG aware. On tele, pt continues to be SB to SR(50s-80s) with 1*AVB. Pt had dialysis performance at bedside, MAP dropping in 45, levophed titrated per MD's order and later required frequent titration for MAP >65, nuclear plant technical advisor reported 4600ml output. Pt's vent setting changed by MD from AC to PS to currently on PC at 16/5 at 40%. Pt bathed today, repositioned every 2 hrs and as needed, prevalon system, heel protectors and wedges utilized. Pt bathed today and skin care provided as needed. Pt in no acute distress currently. Safety maintained. Contact Precautions maintained. Will continue to monitor.
[2022-04-08] MEDS: propofoL 1,000 MG/100 ML VIAL 9.59 MG IVCONT ×2 (19:19→23:54)
[2022-04-08 19:44] LABS: Anion Gap 25 (12-20); Blood Urea Nitrogen 47 mg/dL (9-16); Calcium 8.5 mg/dL (8.4-10.2); Carbon Dioxide 12 mmol/L (22-29); Chloride 100 mmol/L (96-108); Creatinine Clr Calc Pharmacy 17.4; Estimated Glomerular Filt Rate 17; Glucose Random 131 mg/dL (60-115); Potassium 4.6 mmol/L (3.3-5.1); Sodium 132 mmol/L (135-145)
[2022-04-08] MEDS: Norepinephrine Bitartrate/D5W 8 MG/250 ML PLAST..BAG 15.49 MG IV (23:33)
[2022-04-09] VITALS (32 sets, daily range): BP systolic 68–150; BP diastolic 43–59; PULSE 47–124; RESP 16–31; TEMP 30–38.8; O2SAT 83–100; BMI 26.4
[2022-04-09] MEDS: DOPamine HCL/D5W 400 MG/250 ML PLAST..BAG 44.94 MG IVCONT ×3 (04:11→15:11)
[2022-04-09 05:29] LABS: Hematocrit 24.6 % (42.0-52.0); Hemoglobin 8.4 g/dl (14.0-18.0); Mean Corpuscular HGB Conc 34.1 g/dl (31.0-36.0); Mean Corpuscular Hemoglobin 29.7 pg (27.0-33.0); Mean Corpuscular Volume 86.9 fL (80.0-98.0); Mean Platelet Volume 12.8 fL (9.4-12.4); Platelet Count 168 X10*3/uL (160-400); Red Blood Count 2.83 X10*6/uL (4.60-5.80); Red Cell Distribution Width 21.7 % (11.0-16.0); White Blood Count 15.5 X10*3/uL (4.8-10.8)
[2022-04-09 05:40] LABS: Venous Blood Gas Refer to POC result
[2022-04-09 05:50] LABS: Albumin Level 3.7 g/dL (3.5-5.0); Anion Gap 21 (12-20); Blood Urea Nitrogen 58 mg/dL (9-16); Calcium 8.3 mg/dL (8.4-10.2); Carbon Dioxide 15 mmol/L (22-29); Chloride 99 mmol/L (96-108); Creatinine Clr Calc Pharmacy 15.8; Estimated Glomerular Filt Rate 16; Glucose Random 164 mg/dL (60-115); Magnesium 2.1 mg/dL (1.6-2.6); Phosphorus 6.1 mg/dL (2.7-4.5); Potassium 4.7 mmol/L (3.3-5.1); Sodium 130 mmol/L (135-145)
[2022-04-09 05:52] LABS: Acanthocytes 1+ (0-2) /OIF; Band Neutrophils Percent 16 % (3-5); Lymphocytes Absolute Manual 0.5 X10*3/uL (1.2-4.9); Lymphocytes Percent Manual 3 % (20-40); Macrocytosis 1+ (5-14) /OIF; Monocytes Absolute Manual 1.1 X10*3/uL (0.1-1.2); Monocytes Percent Manual 7 % (2-11); Neutrophils Percent Manual 74 % (45-73); Ovalocytes 1+ (5-14) /OIF; Platelet Estimate SLIGHTLY DECREASED (NORMAL); Platelet Morphology Comment NORMAL; RBC Morphology NOTED; Schistocytes 1+ (0-2) /OIF
[2022-04-09 05:53] LABS: Burr Cells 1+ (0-2) /OIF; Dohle Bodies PRESENT; Polychromasia 1+ (0-2) /OIF; Smudge Cells PRESENT; Target Cells 1+ (5-14) /OIF
[2022-04-09] MEDS: Heparin Sodium,Porcine 5,000 UNIT/ML VIAL 5000 UNIT SUBCUT ×3 (07:16→23:02)
[2022-04-09] MEDS: Famotidine/PF 20 MG/2 ML VIAL IVPUSH (07:17)
[2022-04-09] MEDS: timoloL maleate 0.5 % Oph Sol 5 ML DRBTL 1 DROP EYE-LEFT (07:17)
[2022-04-09] MEDS: 0.9 % Sodium Chloride Flush 3 ML SYRINGE IVFLUSH ×2 (07:17→15:24)
[2022-04-09] MEDS: Chlorhexidine Gluc Oral Rinse 15 ML MOUTHWASH BUCCAL ×3 (07:17→19:38)
[2022-04-09] MEDS: Lactulose 20 GM/30 ML SOLUTION PO ×2 (07:17→19:38)
[2022-04-09] MEDS: propofoL 1,000 MG/100 ML VIAL 9.59 MG IVCONT (08:12)
--- NOTE | 2022-04-09 09:57 | MHC.CLN ---
F/U PT REMAINS INTUBATED AND SEDATED DISCUSSED AT ROUNDS WITH MD [place] RUNNING AT TRICKLE RATE 10ML/HR AND TOLERATING WELL PER NSG PT'S GOAL NEPRO AT 40ML/HR TO PROVIDE 1728KCALS (2234KCALS WITH SEDATION; 26KCALS/KG), 88G PROTEIN, 698ML FREE WATER FROM FORMULA MONITOR TOLERANCE, RESIDUALS AND LYTES
[2022-04-09] MEDS: Norepinephrine Bitartrate/D5W 8 MG/250 ML PLAST..BAG 43.37 MG IV (12:11)
--- NOTE | 2022-04-09 12:29 | PC.NURSE ---
DIALYSIS STOPPED NURSING HOME THROUGH TREATMENT PER MD DUE TO DROP IN BLOOD PRESSURE WHILE TITRATING LEVOPHED GTT DIALYSIS ABLE TO REMOVE 2L - MD AWARE ABLE TO TITRATE DOWN LEVOPHED GTT ONCE DIALYSIS WAS STOPPED - SEE EMAR
[2022-04-09] MEDS: Insulin Lispro 100 UNIT/ML 3 ML VIAL SUBCUT (12:42)
[2022-04-09] MEDS: cefTRIAXone sodium 1 GM in 0.9 % Sodium Chloride 50 ML IV (15:23)
--- NOTE | 2022-04-09 15:50 | MHC.CM.PN ---
Pt continues care in ICU: vented at 50% FiO2 and on HD: pt w/Hypotension during HD today requiring pressor titration. No plans for extubation at this time. Pt is quite ill - d/c planning will be deferred at this time until pt's recovery and clinical progress can be better assessed. CM to follow.
--- NOTE | 2022-04-09 16:04 | PM.CCPN ---
Subjective Subjective Date of Service: 04/09/22 Interval History: 77-year-old gentleman with underlying AFib, diabetes mellitus, PVD status post right transmetatarsal amputation admitted on 04/01/2022 with weakness, acute renal failure, and ascites with hospital course complicated by progressive hypoxemia and poor response to IV diuresis respiratory arrest on 04/05/2022 with unclear down time, approximately to be 5 minutes, and return of spontaneous circulation after less than 7 minutes of CPR as patient was struggling with intubation during the CPR. post CPR course further complicated by persistent bradycardia with poor response to dopamine, requiring transcutaneous pacing for approximately 24 hours, and oliguria. Now requiring hemodialysis support. No events overnight. Ventilator support requirements improving with hemodialysis. Critical Care Time (minutes): 45 Physical Exam Vital Signs: Vital Signs: Last Vital Signs Temp 99.7 F 04/09/22 15:00 Pulse 60 04/09/22 15:00 Resp 30 H 04/09/22 15:00 BP 116/47 L 04/09/22 15:00 Pulse Ox 97 04/09/22 15:00 O2 Del Method 04/09/22 15:00 O2 Flow Rate 6 04/05/22 07:30 FiO2 40 04/09/22 15:46 BMI result Body Mass Index 26.4 Const: General: no acute distress and other ( Moving all extremities, but not purposeful with sedation vacation) Eyes: Sclerae: sclerae normal Neck: Neck: Yes no lymphadenopathy, Yes trachea midline and Yes supple Resp: Auscultation: crackles ( [id number]) Cardio: Rate: regular rate Rhythm: regular rhythm Heart sounds: no gallops, no murmurs and no rubs GI: Inspection: Yes distended Palpation (GI): Soft to palpation and Other GI palpation findings present ( Nontender) Auscultation: normal bowel sounds Extrem: General: Yes no pedal edema, No clubbing and No cyanosis Objective Data Labs CBC & Chem 7: 04/09/22 05:17 04/09/22 05:17 Labs: Laboratory Results - last 24 hr 04/08/22 04/08/22 04/08/22 18:05 19:12 23:38 WBC RBC Hgb Hct MCV MCH MCHC RDW Plt Count MPV Immature Gran % (Auto) Neut % (Auto) Lymph % (Auto) [place] % (Auto) Eos % (Auto) Baso % (Auto) Lymph # (Auto) [place] # (Auto) Eos # (Auto) Baso # (Auto) Abs Immat Gran (auto) Absolute Neuts (auto) Absolute Nucleated RBC Nucleated RBC % (auto) Neutrophils % (Manual) Band Neutrophils % Lymphocytes % (Manual) Monocytes % (Manual) Abs Neuts (Manual) Lymphocytes # (Manual) Monocytes # (Manual) Smudge Cells Dohle Bodies Platelet Estimate Plt Morphology Comment RBC Morphology Polychromasia Macrocytosis Target Cells Ovalocytes [place] Cells Acanthocytes (Spur) Schistocytes VBG pH VBG pCO2 VBG pO2 VBG HCO3 VBG O2 Saturation VBG Base Excess Sodium 132 L Potassium 4.6 Chloride 100 Carbon Dioxide 12 L Anion Gap 25 H BUN 47 H Creatinine 3.44 H Estim Creat Clear Calc 17.4 Estimated GFR 17 POC Glucose 109 138 H Random Glucose 131 H Calcium 8.5 Phosphorus Magnesium Albumin 04/09/22 04/09/22 04/09/22 05:17 05:17 05:18 WBC 15.5 H RBC 2.83 L Hgb 8.4 L Hct 24.6 L MCV 86.9 MCH 29.7 MCHC 34.1 RDW 21.7 H Plt Count 168 MPV 12.8 H Immature Gran % (Auto) Cancelled Neut % (Auto) Cancelled Lymph % (Auto) Cancelled [place] % (Auto) Cancelled Eos % (Auto) Cancelled Baso % (Auto) Cancelled Lymph # (Auto) Cancelled [place] # (Auto) Cancelled Eos # (Auto) Cancelled Baso # (Auto) Cancelled Abs Immat Gran (auto) Cancelled Absolute Neuts (auto) Cancelled Absolute Nucleated RBC 0.160 H Nucleated RBC % (auto) 1.0 H Neutrophils % (Manual) 74 H Band Neutrophils % 16 H Lymphocytes % (Manual) 3 L Monocytes % (Manual) 7 Abs Neuts (Manual) 14.0 H Lymphocytes # (Manual) 0.5 L Monocytes # (Manual) 1.1 Smudge Cells PRESENT Dohle Bodies PRESENT Platelet Estimate SLIGHTLY DECREASED Plt Morphology Comment NORMAL RBC Morphology NOTED Polychromasia 1+ (0-2) Macrocytosis 1+ (5-14) Target Cells 1+ (5-14) Ovalocytes 1+ (5-14) [place] Cells 1+ (0-2) Acanthocytes (Spur) 1+ (0-2) Schistocytes 1+ (0-2) VBG pH 7.28 L VBG pCO2 29 VBG pO2 50 VBG HCO3 14 L VBG O2 Saturation 75.0 VBG Base Excess -11.2 Sodium 130 L Potassium 4.7 Chloride 99 Carbon Dioxide 15 L Anion Gap 21 H BUN 58 H Creatinine 3.78 H Estim Creat Clear Calc 15.8 Estimated GFR 16 POC Glucose Random Glucose 164 H Calcium 8.3 L Phosphorus 6.1 H Magnesium 2.1 Albumin 3.7 04/09/22 04/09/22 05:42 11:58 WBC RBC Hgb Hct MCV MCH MCHC RDW Plt Count MPV Immature Gran % (Auto) Neut % (Auto) Lymph % (Auto) [place] % (Auto) Eos % (Auto) Baso % (Auto) Lymph # (Auto) [place] # (Auto) Eos # (Auto) Baso # (Auto) Abs Immat Gran (auto) Absolute Neuts (auto) Absolute Nucleated RBC Nucleated RBC % (auto) Neutrophils % (Manual) Band Neutrophils % Lymphocytes % (Manual) Monocytes % (Manual) Abs Neuts (Manual) Lymphocytes # (Manual) Monocytes # (Manual) Smudge Cells Dohle Bodies Platelet Estimate Plt Morphology Comment RBC Morphology Polychromasia Macrocytosis Target Cells Ovalocytes [place] Cells Acanthocytes (Spur) Schistocytes VBG pH VBG pCO2 VBG pO2 VBG HCO3 VBG O2 Saturation VBG Base Excess Sodium Potassium Chloride Carbon Dioxide Anion Gap BUN Creatinine Estim Creat Clear Calc Estimated GFR POC Glucose 150 H 177 H Random Glucose Calcium Phosphorus Magnesium Albumin Microbiology Microbiology Results: Microbiology 04/05/22 15:37 Abdominal Fluid Gram Stain - Final 04/05/22 15:37 Abdominal Fluid Routine Culture - Final No growth after 2 days 04/05/22 15:37 Abdominal Fluid Anaerobic Culture - Preliminary No growth to date. 04/07/22 06:38 Blood - Venous Blood Culture - Preliminary No growth after 48 hours. 04/07/22 06:38 Blood - Venous Blood Culture - Preliminary Coag negative Staphylococcus 04/01/22 12:27 Blood - Venous Blood Culture - Final No growth after 5 days. 04/01/22 12:27 Blood - Venous Blood Culture - Final No growth after 5 days. Progress Note: A&P Assessment and plan (1) Pulmonary edema with congestive heart failure: Status: Acute (2) Acute kidney injury superimposed on CKD: Status: Acute (3) Type 2 diabetes mellitus with peripheral artery disease: Status: Acute (4) Acute respiratory failure: Status: Acute (5) Respiratory arrest: Status: Acute (6) Encephalopathy: Status: Acute (7) Ileus: Status: Acute Plan Assessment: 77-year-old gentleman has multiple medical issues admitted with weakness and treated for acute respiratory failure secondary to acute on chronic congestive heart failure with hospital course complicated by respiratory arrests and symptomatic bradycardia now requiring ventilatory support. Plan: Neuro: Patient waking up after CPR, requiring sedative drips to tolerate ventilatory support, though not puposeful with sedation vacation, likely secondary to critical illness encephalopathy. If fails to improve, will consider brain MRI. Cardiac: Acute on chronic diastolic congestive heart failure. Underlying AFib and CAD. Respiratory arrest. Symptomatic bradycardia requiring transcutaneous pacing for 24 hours, now resolved. 2D echocardiogram with normal LVEF and right-sided dysfunction. Improving with hemodialysis. Pulmonary: acute hypoxic respiratory failure secondary to pulmonary edema resulting in respiratory arrest now requiring ventilatory support. Ventilator requirements improved with hemodialysis. Continue to titrate off ventilatory support as tolerated. Renal: Acute kidney injury on the background of chronic kidney disease likely secondary to exacerbation of acute on chronic diastolic congestive heart failure. Oliguric. Nephrology service care appreciated. Continue on hemodialysis support. Continue to monitor renal indices and urine output. Endo: No acute issues. Underlying diabetes mellitus. GI: abdominal distension with increased residuals, CT abdomen without evidence of bowel obstruction, likely ileus. now tolerating tracheal tube feeds. ID: 1/2 blood cultures positive for coagulase-negative Staphylococcus contamination. Empirically covered with ceftriaxone. Heme/Onc: No acute issues. Psych: No acute issues. Miscellaneous: No acute issues. Prophylaxis: heparin, famotidine Diet: tube feeds Critical care time spent: 45 Quality Stroke Does the patient have a stroke diagnosis?: No VTE Prior VTE?: No VTE Risk Level:: Medical - moderate - high VTE Device Contraindication: Treatment Not Indicated VTE Drug Contraindication: N/A - Med Ordered
--- NOTE | 2022-04-09 18:26 | PC.NURSE ---
Pt received a dialysis procedure, had to be stopped midway by Md as pt's SBP continued to drop to as low as in the 50s despite frequent Levophed Titration per protocol and with Md's order. furniture finisher reported output of 2000mls. Pt slowly titrated down with Levophed and is currently off it as MAP> 65. Pt's Propofol turned off at 1245, is now arousable with physical stimuli. Vent settigs changed from AC to PS at 12/5 at 40%, tolerating well. Pt currently in no acute dsitress. Contact prec maintained for MRSA. Pt bathed and skin care provided as needed. Pt repositioned every 2 hrs and as needed, prevalon system, wedges, heel boots and pillows utilized. Family called for update, all questions answered. Bed alarmed, safety maintained throughout. Will continue to monitor.
--- NOTE | 2022-04-09 19:09 | PM.PNNEP ---
Subjective Subjective Date of Service: 04/09/22 Interval history: 77-year-old gentleman with underlying AFib, diabetes mellitus, PVD status post right transmetatarsal amputation admitted on 04/01/2022 with weakness, acute renal failure, and ascites with hospital course complicated by progressive hypoxemia and poor response to IV diuresis Now on HD Seen on HD No events overnight. Physical Exam Vital Signs: Vital Signs: Last Vital Signs Temp 98.8 F 04/09/22 19:01 Pulse 80 04/09/22 19:01 Resp 28 H 04/09/22 19:01 BP 124/43 L 04/09/22 19:01 Pulse Ox 97 04/09/22 19:01 O2 Del Method 04/09/22 19:01 O2 Flow Rate 6 04/05/22 07:30 FiO2 40 04/09/22 19:02 BMI result Body Mass Index 26.4 Const: General: no acute distress and other ( Moving all extremities, but not purposeful with sedation vacation) Eyes: Sclerae: sclerae normal Neck: Neck: Yes no lymphadenopathy, Yes trachea midline and Yes supple Resp: Auscultation: crackles ( [id number]) Cardio: Rate: regular rate Rhythm: regular rhythm Heart sounds: no gallops, no murmurs and no rubs GI: Inspection: Yes distended Palpation (GI): Soft to palpation and Other GI palpation findings present ( Nontender) Auscultation: normal bowel sounds Extrem: General: Yes no pedal edema, No clubbing and No cyanosis Objective Data Labs CBC & Chem 7: 04/09/22 05:17 04/09/22 05:17 Labs: Laboratory Results - last 24 hr 04/08/22 04/08/22 04/09/22 19:12 23:38 05:17 WBC 15.5 H RBC 2.83 L Hgb 8.4 L Hct 24.6 L MCV 86.9 MCH 29.7 MCHC 34.1 RDW 21.7 H Plt Count 168 MPV 12.8 H Immature Gran % (Auto) Cancelled Neut % (Auto) Cancelled Lymph % (Auto) Cancelled [place] % (Auto) Cancelled Eos % (Auto) Cancelled Baso % (Auto) Cancelled Lymph # (Auto) Cancelled [place] # (Auto) Cancelled Eos # (Auto) Cancelled Baso # (Auto) Cancelled Abs Immat Gran (auto) Cancelled Absolute Neuts (auto) Cancelled Absolute Nucleated RBC 0.160 H Nucleated RBC % (auto) 1.0 H Neutrophils % (Manual) 74 H Band Neutrophils % 16 H Lymphocytes % (Manual) 3 L Monocytes % (Manual) 7 Abs Neuts (Manual) 14.0 H Lymphocytes # (Manual) 0.5 L Monocytes # (Manual) 1.1 Smudge Cells PRESENT Dohle Bodies PRESENT Platelet Estimate SLIGHTLY DECREASED Plt Morphology Comment NORMAL RBC Morphology NOTED Polychromasia 1+ (0-2) Macrocytosis 1+ (5-14) Target Cells 1+ (5-14) Ovalocytes 1+ (5-14) [place] Cells 1+ (0-2) Acanthocytes (Spur) 1+ (0-2) Schistocytes 1+ (0-2) VBG pH VBG pCO2 VBG pO2 VBG HCO3 VBG O2 Saturation VBG Base Excess Sodium 132 L Potassium 4.6 Chloride 100 Carbon Dioxide 12 L Anion Gap 25 H BUN 47 H Creatinine 3.44 H Estim Creat Clear Calc 17.4 Estimated GFR 17 POC Glucose 138 H Random Glucose 131 H Calcium 8.5 Phosphorus Magnesium Albumin 04/09/22 04/09/22 04/09/22 05:17 05:18 05:42 WBC RBC Hgb Hct MCV MCH MCHC RDW Plt Count MPV Immature Gran % (Auto) Neut % (Auto) Lymph % (Auto) [place] % (Auto) Eos % (Auto) Baso % (Auto) Lymph # (Auto) [place] # (Auto) Eos # (Auto) Baso # (Auto) Abs Immat Gran (auto) Absolute Neuts (auto) Absolute Nucleated RBC Nucleated RBC % (auto) Neutrophils % (Manual) Band Neutrophils % Lymphocytes % (Manual) Monocytes % (Manual) Abs Neuts (Manual) Lymphocytes # (Manual) Monocytes # (Manual) Smudge Cells Dohle Bodies Platelet Estimate Plt Morphology Comment RBC Morphology Polychromasia Macrocytosis Target Cells Ovalocytes [place] Cells Acanthocytes (Spur) Schistocytes VBG pH 7.28 L VBG pCO2 29 VBG pO2 50 VBG HCO3 14 L VBG O2 Saturation 75.0 VBG Base Excess -11.2 Sodium 130 L Potassium 4.7 Chloride 99 Carbon Dioxide 15 L Anion Gap 21 H BUN 58 H Creatinine 3.78 H Estim Creat Clear Calc 15.8 Estimated GFR 16 POC Glucose 150 H Random Glucose 164 H Calcium 8.3 L Phosphorus 6.1 H Magnesium 2.1 Albumin 3.7 04/09/22 04/09/22 11:58 18:09 WBC RBC Hgb Hct MCV MCH MCHC RDW Plt Count MPV Immature Gran % (Auto) Neut % (Auto) Lymph % (Auto) [place] % (Auto) Eos % (Auto) Baso % (Auto) Lymph # (Auto) [place] # (Auto) Eos # (Auto) Baso # (Auto) Abs Immat Gran (auto) Absolute Neuts (auto) Absolute Nucleated RBC Nucleated RBC % (auto) Neutrophils % (Manual) Band Neutrophils % Lymphocytes % (Manual) Monocytes % (Manual) Abs Neuts (Manual) Lymphocytes # (Manual) Monocytes # (Manual) Smudge Cells Dohle Bodies Platelet Estimate Plt Morphology Comment RBC Morphology Polychromasia Macrocytosis Target Cells Ovalocytes [place] Cells Acanthocytes (Spur) Schistocytes VBG pH VBG pCO2 VBG pO2 VBG HCO3 VBG O2 Saturation VBG Base Excess Sodium Potassium Chloride Carbon Dioxide Anion Gap BUN Creatinine Estim Creat Clear Calc Estimated GFR POC Glucose 177 H 149 H Random Glucose Calcium Phosphorus Magnesium Albumin Microbiology Microbiology Results: Microbiology 04/05/22 15:37 Abdominal Fluid Gram Stain - Final 04/05/22 15:37 Abdominal Fluid Routine Culture - Final No growth after 2 days 04/05/22 15:37 Abdominal Fluid Anaerobic Culture - Preliminary No growth to date. 04/07/22 06:38 Blood - Venous Blood Culture - Preliminary No growth after 48 hours. 04/07/22 06:38 Blood - Venous Blood Culture - Preliminary Coag negative Staphylococcus 04/01/22 12:27 Blood - Venous Blood Culture - Final No growth after 5 days. 04/01/22 12:27 Blood - Venous Blood Culture - Final No growth after 5 days. 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 he remains oliguric with a low fractional excretion of sodium consistent with either septic or cardiogenic shock his echocardiogram did not show a reduced ejection fraction he is on pressors getting albumin remains oliguric dialysis YESTERDAY WILL CONTINUE TO SUPPORT WITH DIALYSIS NEEDED (5) PAD (peripheral artery disease): Status: Acute (6) DMII (diabetes mellitus, type 2): Status: Acute (7) Type 2 diabetes mellitus with peripheral artery disease: Status: Acute (8) Acute kidney injury superimposed on CKD: Status: Acute Plan 77-year-old gentleman with congestive heart failure who had cardiac arrest yesterday and was intubated. It appears he was bradycardic and hypoxic. Continues to be bradycardic and required dopamine in the ICU and is currently being paced transcutaneously. He has not been making any urine and there is some discussion about doing temporary dialysis. On pressors 10 sedated currently. I tried to decrease his pacing rate but he does not have any significant rhythm in the background currently. He was on amiodarone previously. He has indication for pacemaker currently but continues to be quite sick. I think we can leave him on temporary pacing for now given the fact that he is sedated but once sedation is decreased and he wakes up this will be quite painful for him and may not be the best approach for him. I think thoracic surgery should weigh in about permanent pacemaker placement. In the meantime while he is sedated he can be on transcutaneous pacing. We will follow along with you. Time Spent With Patient Time: Total time managing care of this patient today ____ minutes. Progress Note: Quality Stroke Does the patient have a stroke diagnosis?: No
[2022-04-09] MEDS: DOPamine HCL/D5W 400 MG/250 ML PLAST..BAG 59.93 MG IVCONT (19:38)
[2022-04-10] VITALS (46 sets, daily range): BP systolic 99–182; BP diastolic 46–87; PULSE 60–151; RESP 13–34; TEMP 30–38.6; O2SAT 92–100; BMI 26.4
[2022-04-10] MEDS: DOPamine HCL/D5W 400 MG/250 ML PLAST..BAG 29.96 MG IVCONT ×3 (00:01→16:51)
[2022-04-10] MEDS: Insulin Lispro 100 UNIT/ML 3 ML VIAL SUBCUT (00:01)
[2022-04-10] MEDS: propofoL 1,000 MG/100 ML VIAL 4.79 MG IVCONT (02:16)
[2022-04-10] MEDS: Acetaminophen Supp 650 MG SUPP.RECT PR (02:18)
[2022-04-10] MEDS: 0.9 % Sodium Chloride Flush 3 ML SYRINGE IVFLUSH ×4 (02:25→22:19)
[2022-04-10 05:15] LABS: Red Cell Distribution Width 21.5 % (11.0-16.0); SCAN SMEAR FLAG 1
[2022-04-10 05:17] LABS: Basophils Percent Auto 0.2 % (0-2); Eosinophils Absolute Auto 0.2 X10*3/uL (0.0-0.4); Eosinophils Percent Auto 0.9 % (0-4); Hematocrit 24.8 % (42.0-52.0); Hemoglobin 8.7 g/dl (14.0-18.0); Imm Gran Abs Auto 0.25 X10*3/uL (0.00-0.03); Imm Gran Pct Auto 1.4 % (0.0-0.4); Lymphocytes Absolute Auto 0.5 X10*3/uL (1.2-4.9); Lymphocytes Percent Auto 2.9 % (20-40); MANUAL DIFF FLAG SCAN; Mean Corpuscular HGB Conc 35.1 g/dl (31.0-36.0); Mean Corpuscular Hemoglobin 29.9 pg (27.0-33.0); Mean Corpuscular Volume 85.2 fL (80.0-98.0); Monocytes Absolute Auto 1.2 X10*3/uL (0.1-1.2); Monocytes Percent Auto 6.4 % (2-11); Neutrophils Percent Auto 88.2 % (45-73); Platelet Count 119 X10*3/uL (160-400); Red Blood Count 2.91 X10*6/uL (4.60-5.80); White Blood Count 18.1 X10*3/uL (4.8-10.8)
[2022-04-10 05:23] LABS: Venous Blood Gas Refer to POC result
[2022-04-10 05:36] LABS: Albumin Level 3.4 g/dL (3.5-5.0); Anion Gap 23 (12-20); Blood Urea Nitrogen 73 mg/dL (9-16); Carbon Dioxide 12 mmol/L (22-29); Chloride 98 mmol/L (96-108); Creatinine Clr Calc Pharmacy 13.1; Estimated Glomerular Filt Rate 13; Glucose Random 147 mg/dL (60-115); Magnesium 2.2 mg/dL (1.6-2.6); Phosphorus 6.3 mg/dL (2.7-4.5); Potassium 4.4 mmol/L (3.3-5.1); Sodium 129 mmol/L (135-145)
[2022-04-10 05:37] LABS: NRBC Pct Auto 1.2 /100WBC (0.0-0.2); PLT ABN DIST 1
[2022-04-10 05:41] LABS: SLIDE REVIEW VERIFIED
[2022-04-10] MEDS: Heparin Sodium,Porcine 5,000 UNIT/ML VIAL 5000 UNIT SUBCUT ×3 (06:12→22:21)
[2022-04-10] MEDS: Lactulose 20 GM/30 ML SOLUTION PO ×2 (07:35→22:20)
[2022-04-10] MEDS: Chlorhexidine Gluc Oral Rinse 15 ML MOUTHWASH BUCCAL ×3 (07:35→21:04)
[2022-04-10] MEDS: timoloL maleate 0.5 % Oph Sol 5 ML DRBTL 1 DROP EYE-LEFT (07:35)
[2022-04-10] MEDS: Famotidine/PF 20 MG/2 ML VIAL IVPUSH (07:35)
--- NOTE | 2022-04-10 10:37 | PM.CCPN ---
Subjective Subjective Date of Service: 04/10/22 Interval History: 77-year-old gentleman with underlying AFib, diabetes mellitus, PVD status post right transmetatarsal amputation admitted on 04/01/2022 with weakness, acute renal failure, and ascites with hospital course complicated by progressive hypoxemia and poor response to IV diuresis respiratory arrest on 04/05/2022 with unclear down time, approximately to be 5 minutes, and return of spontaneous circulation after less than 7 minutes of CPR as patient was struggling with intubation during the CPR. post CPR course further complicated by persistent bradycardia with poor response to dopamine, requiring transcutaneous pacing for approximately 24 hours, and oliguria. Now requiring hemodialysis support. Overnight with tachy-shaista syndrome and intermittent pauses up to 13 seconds started on transcutaneous backup pacing. Critical Care Time (minutes): 45 Physical Exam Vital Signs: Vital Signs: Last Vital Signs Temp 99.9 F 04/10/22 10:00 Pulse 106 H 04/10/22 10:00 Resp 30 H 04/10/22 10:00 BP 142/46 H 04/10/22 10:00 Pulse Ox 97 04/10/22 10:00 O2 Del Method 04/10/22 10:00 O2 Flow Rate 6 04/05/22 07:30 FiO2 40 04/10/22 10:00 BMI result Body Mass Index 26.4 Const: General: no acute distress and other ( arousable, but not purposeful) Eyes: Sclerae: sclerae normal Neck: Neck: Yes no lymphadenopathy, Yes trachea midline and Yes supple Resp: Auscultation: clear to auscultation bilaterally Cardio: Rate: Other ( tachy-shaista with pauses) Rhythm: regular rhythm Heart sounds: no gallops, no murmurs and no rubs GI: Inspection: Yes distended Palpation (GI): Soft to palpation and Other GI palpation findings present ( Nontender) Auscultation: normal bowel sounds Extrem: General: Yes no pedal edema, No clubbing and No cyanosis Objective Data Labs CBC & Chem 7: 04/10/22 05:08 04/10/22 05:08 Labs: Laboratory Results - last 24 hr 04/09/22 04/09/22 04/09/22 11:58 18:09 23:30 WBC RBC Hgb Hct MCV MCH MCHC RDW Plt Count MPV Immature Gran % (Auto) Neut % (Auto) Lymph % (Auto) [place] % (Auto) Eos % (Auto) Baso % (Auto) Lymph # (Auto) [place] # (Auto) Eos # (Auto) Baso # (Auto) Abs Immat Gran (auto) Absolute Neuts (auto) Absolute Nucleated RBC Nucleated RBC % (auto) Smear Tech's Comments VBG pH VBG pCO2 VBG pO2 VBG HCO3 VBG O2 Saturation VBG Base Excess Sodium Potassium Chloride Carbon Dioxide Anion Gap BUN Creatinine Estim Creat Clear Calc Estimated GFR POC Glucose 177 H 149 H 174 H Random Glucose Calcium Phosphorus Magnesium Albumin 04/10/22 04/10/22 04/10/22 05:08 05:08 05:08 WBC 18.1 H RBC 2.91 L Hgb 8.7 L Hct 24.8 L MCV 85.2 MCH 29.9 MCHC 35.1 RDW 21.5 H Plt Count 119 L D MPV Not Reportable Immature Gran % (Auto) 1.4 H Neut % (Auto) 88.2 H Lymph % (Auto) 2.9 L [place] % (Auto) 6.4 Eos % (Auto) 0.9 Baso % (Auto) 0.2 Lymph # (Auto) 0.5 L [place] # (Auto) 1.2 Eos # (Auto) 0.2 Baso # (Auto) 0.0 Abs Immat Gran (auto) 0.25 H Absolute Neuts (auto) 16.0 H Absolute Nucleated RBC 0.210 H Nucleated RBC % (auto) 1.2 H Smear Tech's Comments VERIFIED VBG pH 7.28 L VBG pCO2 26 VBG pO2 47 VBG HCO3 13 L VBG O2 Saturation 70.0 VBG Base Excess -12.1 Sodium 129 L Potassium 4.4 Chloride 98 Carbon Dioxide 12 L Anion Gap 23 H BUN 73 H Creatinine 4.54 H* Estim Creat Clear Calc 13.1 Estimated GFR 13 POC Glucose Random Glucose 147 H Calcium 8.0 L Phosphorus 6.3 H Magnesium 2.2 Albumin 3.4 L Microbiology Microbiology Results: Microbiology 04/07/22 06:38 Blood - Venous Blood Culture - Final Coag negative Staphylococcus 04/05/22 15:37 Abdominal Fluid Gram Stain - Final 04/05/22 15:37 Abdominal Fluid Routine Culture - Final No growth after 2 days 04/05/22 15:37 Abdominal Fluid Anaerobic Culture - Preliminary No growth to date. 04/07/22 06:38 Blood - Venous Blood Culture - Preliminary No growth after 48 hours. 04/01/22 12:27 Blood - Venous Blood Culture - Final No growth after 5 days. 04/01/22 12:27 Blood - Venous Blood Culture - Final No growth after 5 days. Progress Note: A&P Assessment and plan (1) Tachycardia-bradycardia: Status: Acute (2) Ileus: Status: Acute (3) Encephalopathy: Status: Acute (4) Pulmonary edema with congestive heart failure: Status: Acute (5) Acute kidney injury superimposed on CKD: Status: Acute (6) Type 2 diabetes mellitus with peripheral artery disease: Status: Acute (7) Acute respiratory failure: Status: Acute (8) Respiratory arrest: Status: Acute Plan Assessment: 77-year-old gentleman has multiple medical issues admitted with weakness and treated for acute respiratory failure secondary to acute on chronic congestive heart failure with hospital course complicated by respiratory arrests and symptomatic bradycardia now requiring ventilatory support. Plan: Neuro: Patient waking up after CPR, requiring sedative drips to tolerate ventilatory support, though not puposeful with sedation vacation, likely secondary to critical illness encephalopathy. If fails to improve, will consider brain MRI. Cardiac: Acute on chronic diastolic congestive heart failure. Underlying AFib and CAD. Respiratory arrest. now with episodes of tachycardia / bradycardia with to 13 seconds pauses requiring backup transcutaneous pacing, will request evaluation for permanent pacemaker placement. 2D echocardiogram with normal LVEF and right-sided dysfunction. Improving with hemodialysis. Pulmonary: acute hypoxic respiratory failure secondary to pulmonary edema resulting in respiratory arrest now requiring ventilatory support. Ventilator requirements improved with hemodialysis. Continue to titrate off ventilatory support as tolerated. Renal: Acute kidney injury on the background of chronic kidney disease likely secondary to exacerbation of acute on chronic diastolic congestive heart failure. Oliguric. Nephrology service care appreciated. Continue on hemodialysis support. Continue to monitor renal indices and urine output. Endo: No acute issues. Underlying diabetes mellitus. GI: abdominal distension with increased residuals, CT abdomen without evidence of bowel obstruction, likely ileus. Still with high residuals. ID: 1/2 blood cultures positive for coagulase-negative Staphylococcus contamination. Empirically covered with ceftriaxone. Heme/Onc: No acute issues. Psych: No acute issues. Miscellaneous: No acute issues. Prophylaxis: heparin, famotidine Diet: tube feeds Critical care time spent: 45 Quality Stroke Does the patient have a stroke diagnosis?: No VTE Prior VTE?: No VTE Risk Level:: Medical - moderate - high VTE Device Contraindication: Treatment Not Indicated VTE Drug Contraindication: N/A - Med Ordered
--- NOTE | 2022-04-10 11:01 | PC.NURSE ---
Addendum entered by Trinidad Martinez RN 04/10/22 18:01: 16:26 Pt PEA wit pacer spike 40ppm, SaO2 decreased, Code blue called. See code blue documentation. Levo gtt started at 0.3 mcg/kg/min per MD. Post-code continued transcutaneous pacing. Rate increased to 60 ppm and capture at 12 mAmps New labs and CXR ordered by MD VBGs pH 7.28, HCO3 12.49 lactic 3.2 Sodium bicarb gtt 150 mEq in D5W started per MD. Addendum entered by Trinidad Martinez RN 04/10/22 13:37: 11:00 tube feeds resumed at trickle feed rate 10 ml/hr 12:00 cardiology MD to pt bedside. Confirmed capture of transcutaneous pacing and recommended underlying pacing of 40 ppm. Original Note: Assumed care of patient 07:00 patient had 2 pauses on telemetry 5.7 seconds, 5.6 seconds. MD notified. Per MD continue dopamine gtt @ 10 mcg/kg/min 08:00 checked residual for tube feedings via OG tube. Gastric residual 275 mL. Held tube feeds for 2 hours per orders. 09:15 sedation vacation started, propofol gtt pause. 10:00 patient tracks voices, does not make eye contact, does not follow commands. 10:43 Patient continues to have pauses on telemetry. Longest pause 13 seconds. Per MD resume sedation and start percutaneous pacing at 50 ppm. Propofol gtt resumed at 30 mcg/kg/min 10:45 Percutaneous pacing started at 50 ppm, 8mAmps required for capture.
[2022-04-10] MEDS: propofoL 1,000 MG/100 ML VIAL 14.38 MG IVCONT ×2 (12:13→22:17)
--- NOTE | 2022-04-10 13:01 | PM.PNCARD ---
Subjective Subjective Date of Service: 04/10/22 Interval history: Has been in and out of atrial fibrillation overnight. Conversion pauses up to 13 seconds. He has transcutaneous pacemaker pads on. Physical Exam Vital Signs: Last Vital Signs Temp 99.3 F 04/10/22 12:59 Pulse 93 04/10/22 12:59 Resp 21 H 04/10/22 12:59 BP 122/63 04/10/22 12:59 Pulse Ox 92 04/10/22 12:59 O2 Del Method 04/10/22 12:59 O2 Flow Rate 6 04/05/22 07:30 FiO2 40 04/10/22 12:59 BMI result Body Mass Index 26.4 GENERAL APPEARANCE: Sedated and ventilated. SKIN: no suspicious lesions, warm and dry. HEART: no murmurs, irregular rate and rhythm. Transcutaneous pacing pads on. LUNGS: Clear anteriorly. ABDOMEN: Soft. EXTREMITIES: no significant edema. PERIPHERAL PULSES: equal. Objective Labs and Meds Result diagrams: 04/10/22 05:08 04/10/22 05:08 Lab results: Laboratory Results - last 24 hr 04/09/22 04/09/22 04/10/22 18:09 23:30 05:08 WBC 18.1 H RBC 2.91 L Hgb 8.7 L Hct 24.8 L MCV 85.2 MCH 29.9 MCHC 35.1 RDW 21.5 H Plt Count 119 L D MPV Not Reportable Immature Gran % (Auto) 1.4 H Neut % (Auto) 88.2 H Lymph % (Auto) 2.9 L [place] % (Auto) 6.4 Eos % (Auto) 0.9 Baso % (Auto) 0.2 Lymph # (Auto) 0.5 L [place] # (Auto) 1.2 Eos # (Auto) 0.2 Baso # (Auto) 0.0 Abs Immat Gran (auto) 0.25 H Absolute Neuts (auto) 16.0 H Absolute Nucleated RBC 0.210 H Nucleated RBC % (auto) 1.2 H Smear Tech's Comments VERIFIED VBG pH VBG pCO2 VBG pO2 VBG HCO3 VBG O2 Saturation VBG Base Excess Sodium Potassium Chloride Carbon Dioxide Anion Gap BUN Creatinine Estim Creat Clear Calc Estimated GFR POC Glucose 149 H 174 H Random Glucose Calcium Phosphorus Magnesium Albumin 04/10/22 04/10/22 04/10/22 05:08 05:08 11:43 WBC RBC Hgb Hct MCV MCH MCHC RDW Plt Count MPV Immature Gran % (Auto) Neut % (Auto) Lymph % (Auto) [place] % (Auto) Eos % (Auto) Baso % (Auto) Lymph # (Auto) [place] # (Auto) Eos # (Auto) Baso # (Auto) Abs Immat Gran (auto) Absolute Neuts (auto) Absolute Nucleated RBC Nucleated RBC % (auto) Smear Tech's Comments VBG pH 7.28 L VBG pCO2 26 VBG pO2 47 VBG HCO3 13 L VBG O2 Saturation 70.0 VBG Base Excess -12.1 Sodium 129 L Potassium 4.4 Chloride 98 Carbon Dioxide 12 L Anion Gap 23 H BUN 73 H Creatinine 4.54 H* Estim Creat Clear Calc 13.1 Estimated GFR 13 POC Glucose 147 H Random Glucose 147 H Calcium 8.0 L Phosphorus 6.3 H Magnesium 2.2 Albumin 3.4 L Progress Note: A&P Assessment and plan (1) Tachycardia-bradycardia: Status: Acute (2) Pulmonary edema with congestive heart failure: Status: Acute (3) Symptomatic bradycardia: Status: Inactive Plan 77-year-old gentleman with heart failure, significant hypoxia and symptomatic bradycardia. Was previously on amiodarone. Amiodarone has been held. He has developed atrial fibrillation and has been in and out of AFib with some conversion pauses and the longest pause is 13 seconds. He already had indication for pacemaker. Keep transcutaneous pacing pads on with backup rate of 40 in case he gets prolonged pause. Continue to support as you are. He will need discussion with thoracic surgery for permanent pacemaker placement. He questions are his overall chances of recovery specially neurological improvement. He is on propofol and dopamine currently. He is currently in atrial fibrillation with heart rates in 110 to 120s. I think dopamine can be stopped. Obviously if he drops his blood pressure then he may need pressors. Thank you for allowing me to participate in the care of your patient. Please feel free to contact me if you have any questions. Time Spent With Patient Time: Total time managing care of this patient today ____ minutes. Progress Note: Quality Stroke Does the patient have a stroke diagnosis?: No Procedures Date of Service Date of Service: 04/10/22
--- NOTE | 2022-04-10 14:21 | PM.PNNEP ---
Subjective Subjective Date of Service: 04/10/22 Interval history: 77-year-old gentleman with underlying AFib, diabetes mellitus, PVD status post right transmetatarsal amputation admitted on 04/01/2022 with weakness, acute renal failure, and ascites with hospital course complicated by progressive hypoxemia and poor response to IV diuresis respiratory arrest on 04/05/2022 with unclear down time, approximately to be 5 minutes, and return of spontaneous circulation after less than 7 minutes of CPR as patient was struggling with intubation during the CPR. post CPR course further complicated by persistent bradycardia with poor response to dopamine, requiring transcutaneous pacing for approximately 24 hours, and oliguria. Had HD yesterday Makind some urine today Overnight with tachy-shaista syndrome and intermittent pauses Physical Exam Vital Signs: Vital Signs: Last Vital Signs Temp 99.3 F 04/10/22 12:59 Pulse 93 04/10/22 12:59 Resp 21 H 04/10/22 12:59 BP 122/63 04/10/22 12:59 Pulse Ox 92 04/10/22 12:59 O2 Del Method 04/10/22 12:59 O2 Flow Rate 6 04/05/22 07:30 FiO2 40 04/10/22 12:59 BMI result Body Mass Index 26.4 GENERAL APPEARANCE: Sedated and ventilated. SKIN: no suspicious lesions, warm and dry. HEART: no murmurs, irregular rate and rhythm. Transcutaneous pacing pads on. LUNGS: Clear anteriorly. ABDOMEN: Soft. EXTREMITIES: no significant edema. PERIPHERAL PULSES: equal. Objective Data Labs CBC & Chem 7: 04/10/22 05:08 04/10/22 05:08 Labs: Laboratory Results - last 24 hr 04/09/22 04/09/22 04/10/22 18:09 23:30 05:08 WBC 18.1 H RBC 2.91 L Hgb 8.7 L Hct 24.8 L MCV 85.2 MCH 29.9 MCHC 35.1 RDW 21.5 H Plt Count 119 L D MPV Not Reportable Immature Gran % (Auto) 1.4 H Neut % (Auto) 88.2 H Lymph % (Auto) 2.9 L [place] % (Auto) 6.4 Eos % (Auto) 0.9 Baso % (Auto) 0.2 Lymph # (Auto) 0.5 L [place] # (Auto) 1.2 Eos # (Auto) 0.2 Baso # (Auto) 0.0 Abs Immat Gran (auto) 0.25 H Absolute Neuts (auto) 16.0 H Absolute Nucleated RBC 0.210 H Nucleated RBC % (auto) 1.2 H Smear Tech's Comments VERIFIED VBG pH VBG pCO2 VBG pO2 VBG HCO3 VBG O2 Saturation VBG Base Excess Sodium Potassium Chloride Carbon Dioxide Anion Gap BUN Creatinine Estim Creat Clear Calc Estimated GFR POC Glucose 149 H 174 H Random Glucose Calcium Phosphorus Magnesium Albumin 04/10/22 04/10/22 04/10/22 05:08 05:08 11:43 WBC RBC Hgb Hct MCV MCH MCHC RDW Plt Count MPV Immature Gran % (Auto) Neut % (Auto) Lymph % (Auto) [place] % (Auto) Eos % (Auto) Baso % (Auto) Lymph # (Auto) [place] # (Auto) Eos # (Auto) Baso # (Auto) Abs Immat Gran (auto) Absolute Neuts (auto) Absolute Nucleated RBC Nucleated RBC % (auto) Smear Tech's Comments VBG pH 7.28 L VBG pCO2 26 VBG pO2 47 VBG HCO3 13 L VBG O2 Saturation 70.0 VBG Base Excess -12.1 Sodium 129 L Potassium 4.4 Chloride 98 Carbon Dioxide 12 L Anion Gap 23 H BUN 73 H Creatinine 4.54 H* Estim Creat Clear Calc 13.1 Estimated GFR 13 POC Glucose 147 H Random Glucose 147 H Calcium 8.0 L Phosphorus 6.3 H Magnesium 2.2 Albumin 3.4 L Microbiology Microbiology Results: Microbiology 04/05/22 15:37 Abdominal Fluid Gram Stain - Final 04/05/22 15:37 Abdominal Fluid Routine Culture - Final No growth after 2 days 04/05/22 15:37 Abdominal Fluid Anaerobic Culture - Final NO GROWTH AFTER 5 DAYS 04/07/22 06:38 Blood - Venous Blood Culture - Final Coag negative Staphylococcus 04/07/22 06:38 Blood - Venous Blood Culture - Preliminary No growth after 48 hours. 04/01/22 12:27 Blood - Venous Blood Culture - Final No growth after 5 days. 04/01/22 12:27 Blood - Venous Blood Culture - Final No growth after 5 days. 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 he remains oliguric with a low fractional excretion of sodium consistent with either septic or cardiogenic shock his echocardiogram did not show a reduced ejection fraction he is on pressors getting albumin remains oliguric dialysis Had HD yesterday Making some urine - Will follow for HD needs Still amitotic Can try IV diuretic Drip Minimize free H2O given low NA Poor prognosis D/w ICU team (5) PAD (peripheral artery disease): Status: Acute (6) DMII (diabetes mellitus, type 2): Status: Acute (7) Type 2 diabetes mellitus with peripheral artery disease: Status: Acute (8) Acute kidney injury superimposed on CKD: Status: Acute Plan Time Spent With Patient Time: Total time managing care of this patient today ____ minutes. Progress Note: Quality Stroke Does the patient have a stroke diagnosis?: No
[2022-04-10] MEDS: cefTRIAXone sodium 1 GM in 0.9 % Sodium Chloride 50 ML IV (15:02)
[2022-04-10] MEDS: propofoL 1,000 MG/100 ML VIAL 19.18 MG IVCONT (15:52)
--- NOTE | 2022-04-10 17:07 | PM.EVENT ---
Event Note Date of Service: 04/10/22 Event Note: A blue code was called around 4:26 p.m. for the patient. I went directly to ICU as CPR was started at that point. Patient received total of 2 doses of epinephrine as he returned ROSC. Blood pressure noted to be elevated of 180/90 as the patient was on running to anemia and Levophed along with propofol. Sodium bicarb was added as part of the therapy. Print Line Supervisor contacted over the phone and discussed the plan As he will be in person in the hospital to re-evaluate the patient. Time Spent With Patient Time: Total time managing care of this patient today ____ minutes.
[2022-04-10 17:36] LABS: Hemoglobin 7.5 g/dl (14.0-18.0)
[2022-04-10 17:37] LABS: Hematocrit 21.9 % (42.0-52.0); Mean Corpuscular HGB Conc 34.2 g/dl (31.0-36.0); Mean Corpuscular Hemoglobin 29.6 pg (27.0-33.0); Mean Corpuscular Volume 86.6 fL (80.0-98.0); Platelet Count 108 X10*3/uL (160-400); Red Blood Count 2.53 X10*6/uL (4.60-5.80); White Blood Count 19.4 X10*3/uL (4.8-10.8)
[2022-04-10 17:47] LABS: Alanine Aminotransferase 34 U/L (0-40); Albumin Level 3.8 g/dL (3.5-5.0); Alkaline Phosphatase 190 U/L (39-117); Anion Gap 24 (12-20); Aspartate Amino Transferase 51 U/L (5-37); Bilirubin Total 2.1 mg/dL (0.0-1.0); Blood Urea Nitrogen 83 mg/dL (9-16); Calcium 7.9 mg/dL (8.4-10.2); Carbon Dioxide 14 mmol/L (22-29); Chloride 96 mmol/L (96-108); Creatinine Clr Calc Pharmacy 12.6; Estimated Glomerular Filt Rate 12; Glucose Random 223 mg/dL (60-115); Lactic Acid 3.2 mmol/L (0.5-2.0); Magnesium 2.1 mg/dL (1.6-2.6); Phosphorus 7.5 mg/dL (2.7-4.5); Potassium 4.5 mmol/L (3.3-5.1); Sodium 129 mmol/L (135-145); Total Protein 5.5 g/dL (6.5-8.0)
[2022-04-10 17:48] LABS: NRBC Pct Auto 1.2 /100WBC (0.0-0.2); PLT ABN DIST 1
--- NOTE | 2022-04-10 17:48 | PM.CCN ---
Critical Care Event Note Summary Date of Service: 04/10/22 Code activated: Yes Narrative: At approximately 16:25 patient with sudden drop in heart rate to backup paced rhythm and no palpable pulse. CPR started immediately, return of spontaneous circulation achieved after 2 rounds of epinephrine. Levophed drip restarted, blood pressure stable. Full set of labs sent. Family notified. Backup a straight and capture increased to 60 beats per minute and 12 mA. Critical Care Time (minutes): 30
[2022-04-10 17:52] LABS: Troponin-I High Sensitivity 45.5 ng/L (<3.5-35.0)
[2022-04-10 20:41] LABS: ~Lactic Acid-LAB USE ONLY 2.1 mmol/L (0.5-2.0)
[2022-04-10 22:37] LABS: Cancel Lactic Acid Canceled
--- NOTE | 2022-04-10 23:46 | PM.EVENT ---
Event Note Date of Service: 04/11/22 Event Note: Patient dropped oxygenation, end tidal and blood pressure. 2321 pulseless started ACLS. ROSC achieved afterx 1 dose epi and 1 bicarb 2324. Patient placed back on transcutaneaous pacing and levophed. This is patient second cardiac arrest today, Family contacted, spoke with Cathryn (pt /HCP) and son Johnny, do not wish to come to hospital at this time, will like to cont full code Time Spent With Patient Time: Total time managing care of this patient today ____ minutes.
[2022-04-11] VITALS (40 sets, daily range): BP systolic 111–140; BP diastolic 35–73; PULSE 60–120; RESP 12–24; TEMP 34.69–36.7; O2SAT 90–100; BMI 30.3
[2022-04-11] MEDS: Insulin Lispro 100 UNIT/ML 3 ML VIAL SUBCUT ×3 (00:40→17:46)
--- NOTE | 2022-04-11 00:57 | PC.NURSE ---
ASSUMED CARE OF PT AT 1900. PT ON AC VENT SETTINGS WITH NO RESP DISTRESS. HAS BEEN TRANSCUTANEOUSLY PACED SINCE CODE BLUE YESTERDAY AT A RATE OF 60. VITALS STABLE ON DOPAMINE AT 10 MCG/KG/MIN AND LEVOPHED AT 0.07 MCG. BICARB DRIP INFUSING ORDERED AND PROPOFOL FOR SEDATION. AT 2322 WHILE IN THE ROOM WITH PT, A RHYTHM CHANGE WAS NOTED. THERE WERE PACER SPIKES BUT A QUESTION IF THERE WAS CAPTURE SO PULSE CHECK REVEALED NO PULSE AND CPR WAS STARTED. SONALI ANTONIO CARBONATION TESTER IN THE ROOM. PT RECEIVED 1 AMP OF EPI AND 1 AMP OF BICARB AND AT 1ST PULSE CHECK, THERE WAS A POSITIVE PULSE MANUALLY AND WITH A DOPPLER. SONALI CERVANTES CALLED FAMILY AND THE AND FAMILY CAME IN TO SEE PT AND CURRENTLY AT BEDSIDE.
[2022-04-11] MEDS: DOPamine HCL/D5W 400 MG/250 ML PLAST..BAG 29.96 MG IVCONT ×4 (01:41→23:50)
[2022-04-11] MEDS: propofoL 1,000 MG/100 ML VIAL 14.38 MG IVCONT ×2 (05:15→09:59)
[2022-04-11 05:32] LABS: PLT ABN DIST 1; Red Cell Distribution Width 21.3 % (11.0-16.0); SCAN SMEAR FLAG 1
[2022-04-11 05:34] LABS: Basophils Percent Auto 0.2 % (0-2); Imm Gran Abs Auto 0.21 X10*3/uL (0.00-0.03); Imm Gran Pct Auto 1.6 % (0.0-0.4); Lymphocytes Absolute Auto 0.4 X10*3/uL (1.2-4.9); Lymphocytes Percent Auto 2.9 % (20-40); Mean Corpuscular HGB Conc 35.5 g/dl (31.0-36.0); Mean Corpuscular Hemoglobin 30.1 pg (27.0-33.0); Mean Corpuscular Volume 84.7 fL (80.0-98.0); Monocytes Absolute Auto 0.8 X10*3/uL (0.1-1.2); Neutrophils Absolute Auto 11.6 x10*3/uL (2.0-8.3); Neutrophils Percent Auto 89.3 % (45-73); Red Blood Count 2.16 X10*6/uL (4.60-5.80)
[2022-04-11 05:38] LABS: MANUAL DIFF FLAG NO
[2022-04-11 05:40] LABS: Hemoglobin 6.5 g/dl (14.0-18.0)
[2022-04-11 05:41] LABS: Hematocrit 18.3 % (42.0-52.0); NRBC Pct Auto 1.8 /100WBC (0.0-0.2)
[2022-04-11 05:50] LABS: Platelet Count 83 X10*3/uL (160-400)
[2022-04-11 05:53] LABS: Alanine Aminotransferase 28 U/L (0-40); Albumin Level 3.9 g/dL (3.5-5.0); Alkaline Phosphatase 146 U/L (39-117); Anion Gap 22 (12-20); Aspartate Amino Transferase 36 U/L (5-37); Blood Urea Nitrogen 87 mg/dL (9-16); Calcium 7.9 mg/dL (8.4-10.2); Carbon Dioxide 19 mmol/L (22-29); Chloride 90 mmol/L (96-108); Creatinine Clr Calc Pharmacy 12.8; Estimated Glomerular Filt Rate 12; Glucose Random 207 mg/dL (60-115); Phosphorus 6.9 mg/dL (2.7-4.5); Sodium 127 mmol/L (135-145); Total Protein 5.4 g/dL (6.5-8.0)
--- NOTE | 2022-04-11 06:07 | PC.NURSE ---
FAMILY WENT HOME. PT CONTINUES PACED RHYTHM, RATE 60BPM. BP CONTINUES STABLE ON LEVO AND DOPA AT SAME RATES. BICARB DRIP CONTINUES. NO RESP DIFFICULTIES. U/O 100 ML FOR PAST 12 HOURS.
[2022-04-11] MEDS: Chlorhexidine Gluc Oral Rinse 15 ML MOUTHWASH BUCCAL ×3 (07:18→21:31)
[2022-04-11] MEDS: Famotidine/PF 20 MG/2 ML VIAL IVPUSH (07:18)
[2022-04-11] MEDS: Lactulose 20 GM/30 ML SOLUTION PO (07:18)
[2022-04-11] MEDS: timoloL maleate 0.5 % Oph Sol 5 ML DRBTL 1 DROP EYE-LEFT (07:18)
[2022-04-11] MEDS: Norepinephrine Bitartrate/D5W 8 MG/250 ML PLAST..BAG 10.84 MG IV (08:19)
--- NOTE | 2022-04-11 10:42 | PM.PNCARD ---
Subjective Subjective Date of Service: 04/11/22 Interval history: Seen and examined at bedside. He has underlying Afib and has transcutaneous pacemaker on. Receiving blood. Had cardiac arrest x 2 yesterday with PEA. Apparently was acidemic and despite having pacer at back up rate of 40 he didnt have capture which is quite common with acidemia. He had CPR and 2 rounds of epi. Currently he has background Afib on tele. Physical Exam Vital Signs: Last Vital Signs Temp 97.7 F 04/11/22 10:00 Pulse 60 04/11/22 10:00 Resp 17 04/11/22 10:00 BP 116/61 04/11/22 10:00 Pulse Ox 94 04/11/22 10:00 O2 Del Method 04/11/22 10:00 O2 Flow Rate 100 04/10/22 22:00 FiO2 100 04/11/22 10:00 BMI result Body Mass Index 30.3 GENERAL APPEARANCE: Sedated and ventilated. SKIN: no suspicious lesions, warm and dry. HEART: no murmurs, irregular rate and rhythm. Transcutaneous pacing pads on. LUNGS: Clear anteriorly. ABDOMEN: Soft. EXTREMITIES: no significant edema. PERIPHERAL PULSES: equal. Objective Labs and Meds Result diagrams: 04/11/22 05:25 04/11/22 05:25 Lab results: Laboratory Results - last 24 hr 04/10/22 04/10/22 04/10/22 11:43 17:11 17:13 WBC 19.4 H RBC 2.53 L Hgb 7.5 L Hct 21.9 L MCV 86.6 MCH 29.6 MCHC 34.2 RDW 22.0 H Plt Count 108 L MPV Not Reportable Immature Gran % (Auto) Neut % (Auto) Lymph % (Auto) [place] % (Auto) Eos % (Auto) Baso % (Auto) Lymph # (Auto) [place] # (Auto) Eos # (Auto) Baso # (Auto) Abs Immat Gran (auto) Absolute Neuts (auto) Absolute Nucleated RBC 0.240 H Nucleated RBC % (auto) 1.2 H VBG pH 7.19 L* VBG pCO2 33 VBG pO2 75 VBG HCO3 13 L VBG O2 Saturation 90.0 VBG Base Excess -14.0 Sodium Potassium Chloride Carbon Dioxide Anion Gap BUN Creatinine Estim Creat Clear Calc Estimated GFR POC Glucose 147 H Random Glucose Lactic Acid Lactic Acid F/U @ 2Hr Calcium Phosphorus Magnesium Total Bilirubin AST ALT Alkaline Phosphatase Troponin I High Sens Total Protein Albumin Blood Type Antibody Screen Crossmatch 04/10/22 04/10/22 04/10/22 17:13 17:13 17:13 WBC RBC Hgb Hct MCV MCH MCHC RDW Plt Count MPV Immature Gran % (Auto) Neut % (Auto) Lymph % (Auto) [place] % (Auto) Eos % (Auto) Baso % (Auto) Lymph # (Auto) [place] # (Auto) Eos # (Auto) Baso # (Auto) Abs Immat Gran (auto) Absolute Neuts (auto) Absolute Nucleated RBC Nucleated RBC % (auto) VBG pH VBG pCO2 VBG pO2 VBG HCO3 VBG O2 Saturation VBG Base Excess Sodium 129 L Potassium 4.5 Chloride 96 Carbon Dioxide 14 L Anion Gap 24 H BUN 83 H Creatinine 4.75 H* Estim Creat Clear Calc 12.6 Estimated GFR 12 POC Glucose Random Glucose 223 H Lactic Acid 3.2 H* Lactic Acid F/U @ 2Hr Calcium 7.9 L Phosphorus 7.5 H Magnesium 2.1 Total Bilirubin 2.1 H AST 51 H ALT 34 Alkaline Phosphatase 190 H Troponin I High Sens 45.5 H D Total Protein 5.5 L Albumin 3.8 Blood Type Antibody Screen Crossmatch 04/10/22 04/10/22 04/11/22 17:17 20:12 00:34 WBC RBC Hgb Hct MCV MCH MCHC RDW Plt Count MPV Immature Gran % (Auto) Neut % (Auto) Lymph % (Auto) [place] % (Auto) Eos % (Auto) Baso % (Auto) Lymph # (Auto) [place] # (Auto) Eos # (Auto) Baso # (Auto) Abs Immat Gran (auto) Absolute Neuts (auto) Absolute Nucleated RBC Nucleated RBC % (auto) VBG pH VBG pCO2 VBG pO2 VBG HCO3 VBG O2 Saturation VBG Base Excess Sodium Potassium Chloride Carbon Dioxide Anion Gap BUN Creatinine Estim Creat Clear Calc Estimated GFR POC Glucose 151 H 217 H Random Glucose Lactic Acid Lactic Acid F/U @ 2Hr 2.1 H* Calcium Phosphorus Magnesium Total Bilirubin AST ALT Alkaline Phosphatase Troponin I High Sens Total Protein Albumin Blood Type Antibody Screen Crossmatch 04/11/22 04/11/22 04/11/22 05:25 05:25 05:31 WBC 13.0 H RBC 2.16 L Hgb 6.5 L* Hct 18.3 L* MCV 84.7 MCH 30.1 MCHC 35.5 RDW 21.3 H Plt Count 83 L MPV Not Reportable Immature Gran % (Auto) 1.6 H Neut % (Auto) 89.3 H Lymph % (Auto) 2.9 L [place] % (Auto) 6.0 Eos % (Auto) 0.0 Baso % (Auto) 0.2 Lymph # (Auto) 0.4 L [place] # (Auto) 0.8 Eos # (Auto) 0.0 Baso # (Auto) 0.0 Abs Immat Gran (auto) 0.21 H Absolute Neuts (auto) 11.6 H Absolute Nucleated RBC 0.230 H Nucleated RBC % (auto) 1.8 H VBG pH 7.32 VBG pCO2 32 VBG pO2 52 VBG HCO3 17 L VBG O2 Saturation 78.0 VBG Base Excess -7.6 Sodium 127 L Potassium 4.0 Chloride 90 L Carbon Dioxide 19 L Anion Gap 22 H BUN 87 H Creatinine 4.67 H* Estim Creat Clear Calc 12.8 Estimated GFR 12 POC Glucose Random Glucose 207 H Lactic Acid Lactic Acid F/U @ 2Hr Calcium 7.9 L Phosphorus 6.9 H Magnesium 2.0 Total Bilirubin 2.0 H AST 36 ALT 28 Alkaline Phosphatase 146 H Troponin I High Sens Total Protein 5.4 L Albumin 3.9 Blood Type Antibody Screen Crossmatch 04/11/22 07:38 WBC RBC Hgb Hct MCV MCH MCHC RDW Plt Count MPV Immature Gran % (Auto) Neut % (Auto) Lymph % (Auto) [place] % (Auto) Eos % (Auto) Baso % (Auto) Lymph # (Auto) [place] # (Auto) Eos # (Auto) Baso # (Auto) Abs Immat Gran (auto) Absolute Neuts (auto) Absolute Nucleated RBC Nucleated RBC % (auto) VBG pH VBG pCO2 VBG pO2 VBG HCO3 VBG O2 Saturation VBG Base Excess Sodium Potassium Chloride Carbon Dioxide Anion Gap BUN Creatinine Estim Creat Clear Calc Estimated GFR POC Glucose Random Glucose Lactic Acid Lactic Acid F/U @ 2Hr Calcium Phosphorus Magnesium Total Bilirubin AST ALT Alkaline Phosphatase Troponin I High Sens Total Protein Albumin Blood Type O Positive Antibody Screen NEGATIVE Crossmatch See Detail Imaging Radiologist's impression: Impressions Chest X-Ray 04/10/22 17:32 IMPRESSION: Stable bilateral patchy airspace opacities and support lines and catheters from 04/07/2022 Progress Note: A&P Assessment and plan (1) Tachycardia-bradycardia: Status: Acute (2) Pulmonary edema with congestive heart failure: Status: Acute Plan 77 male with cardiac arrest who has been sedated and ventilated. He had CHF but due to CHANTE was not making any urine and had HD. Also anemic and receiving blood. He has PAF with tachy shaista syndrome. Previously was on amiodarone. Yesterday had 2 cardiac arrests with PEA. He had pacer pads on him and was previously capturing but after arrest had no capture and pulse. He was coded and revived. His PH was low and I think this was a metabolic issue which lead to PEA and loss of capture. He is very sick and his prognosis is guarded. I have tried reaching out to the to discuss about code status and the fact that pacemaker may not prolong his life as it may lose capture if he gets metabolic acidosis etc. Will try to reach out to again. Time Spent With Patient Time: Total time managing care of this patient today ____ minutes. Progress Note: Quality Stroke Does the patient have a stroke diagnosis?: No Procedures Date of Service Date of Service: 04/11/22
--- NOTE | 2022-04-11 10:50 | PM.CCPN ---
Subjective Subjective Date of Service: 04/11/22 Interval History: ICU day 7 for tachy-shaista syndrome, acute hypoxic respiratory failure, acute kidney failure, acute on chronic diastolic congestive heart failure, respiratory arrest, PEA arrest 77-year-old gentleman with underlying AFib, diabetes mellitus, PVD status post right transmetatarsal amputation admitted on 04/01/2022 with weakness, acute renal failure, and ascites with hospital course complicated by progressive hypoxemia and poor response to IV diuresis respiratory arrest on 04/05/2022 with unclear down time, approximately to be 5 minutes, and return of spontaneous circulation after less than 7 minutes of CPR as patient was struggling with intubation during the CPR. post CPR course further complicated by persistent bradycardia with poor response to dopamine, initially requiring transcutaneous pacing for approximately 24 hours, and oliguria. Now requiring hemodialysis support. On 04/10/2022 patient with development of cardiac pauses up to 13 seconds. Started on transcutaneous pacing for backup. Patient still with development of essentially two brief PEA arrests over the course of the day last in 3-5 minutes with CPR started immediately and return of spontaneous circulation. Family notified of developments and is discussed goals of care. Now transcutaneous pacer dependent. Critical Care Time (minutes): 60 Physical Exam Vital Signs: Vital Signs: Last Vital Signs Temp 97.7 F 04/11/22 10:00 Pulse 60 04/11/22 10:00 Resp 17 04/11/22 10:00 BP 116/61 04/11/22 10:00 Pulse Ox 94 04/11/22 10:00 O2 Del Method 04/11/22 10:00 O2 Flow Rate 100 04/10/22 22:00 FiO2 100 04/11/22 10:00 BMI result Body Mass Index 30.3 Const: General: no acute distress and other (Sedated on the vent) Eyes: Sclerae: sclerae normal Neck: Neck: Yes no lymphadenopathy, Yes trachea midline and Yes supple Resp: Auscultation: crackles (Diffuse bilateral) Cardio: Rate: regular rate (Pacer dependent) Rhythm: regular rhythm Heart sounds: no gallops, no murmurs and no rubs GI: Inspection: Yes distended Palpation (GI): Soft to palpation Auscultation: normal bowel sounds Extrem: General: No clubbing, No cyanosis and Yes edema (Trace bilateral) Objective Data Labs CBC & Chem 7: 04/11/22 05:25 04/11/22 05:25 Labs: Laboratory Results - last 24 hr 04/10/22 04/10/22 04/10/22 11:43 17:11 17:13 WBC 19.4 H RBC 2.53 L Hgb 7.5 L Hct 21.9 L MCV 86.6 MCH 29.6 MCHC 34.2 RDW 22.0 H Plt Count 108 L MPV Not Reportable Immature Gran % (Auto) Neut % (Auto) Lymph % (Auto) [place] % (Auto) Eos % (Auto) Baso % (Auto) Lymph # (Auto) [place] # (Auto) Eos # (Auto) Baso # (Auto) Abs Immat Gran (auto) Absolute Neuts (auto) Absolute Nucleated RBC 0.240 H Nucleated RBC % (auto) 1.2 H VBG pH 7.19 L* VBG pCO2 33 VBG pO2 75 VBG HCO3 13 L VBG O2 Saturation 90.0 VBG Base Excess -14.0 Sodium Potassium Chloride Carbon Dioxide Anion Gap BUN Creatinine Estim Creat Clear Calc Estimated GFR POC Glucose 147 H Random Glucose Lactic Acid Lactic Acid F/U @ 2Hr Calcium Phosphorus Magnesium Total Bilirubin AST ALT Alkaline Phosphatase Troponin I High Sens Total Protein Albumin Blood Type Antibody Screen Crossmatch 04/10/22 04/10/22 04/10/22 17:13 17:13 17:13 WBC RBC Hgb Hct MCV MCH MCHC RDW Plt Count MPV Immature Gran % (Auto) Neut % (Auto) Lymph % (Auto) [place] % (Auto) Eos % (Auto) Baso % (Auto) Lymph # (Auto) [place] # (Auto) Eos # (Auto) Baso # (Auto) Abs Immat Gran (auto) Absolute Neuts (auto) Absolute Nucleated RBC Nucleated RBC % (auto) VBG pH VBG pCO2 VBG pO2 VBG HCO3 VBG O2 Saturation VBG Base Excess Sodium 129 L Potassium 4.5 Chloride 96 Carbon Dioxide 14 L Anion Gap 24 H BUN 83 H Creatinine 4.75 H* Estim Creat Clear Calc 12.6 Estimated GFR 12 POC Glucose Random Glucose 223 H Lactic Acid 3.2 H* Lactic Acid F/U @ 2Hr Calcium 7.9 L Phosphorus 7.5 H Magnesium 2.1 Total Bilirubin 2.1 H AST 51 H ALT 34 Alkaline Phosphatase 190 H Troponin I High Sens 45.5 H D Total Protein 5.5 L Albumin 3.8 Blood Type Antibody Screen Crossmatch 04/10/22 04/10/22 04/11/22 17:17 20:12 00:34 WBC RBC Hgb Hct MCV MCH MCHC RDW Plt Count MPV Immature Gran % (Auto) Neut % (Auto) Lymph % (Auto) [place] % (Auto) Eos % (Auto) Baso % (Auto) Lymph # (Auto) [place] # (Auto) Eos # (Auto) Baso # (Auto) Abs Immat Gran (auto) Absolute Neuts (auto) Absolute Nucleated RBC Nucleated RBC % (auto) VBG pH VBG pCO2 VBG pO2 VBG HCO3 VBG O2 Saturation VBG Base Excess Sodium Potassium Chloride Carbon Dioxide Anion Gap BUN Creatinine Estim Creat Clear Calc Estimated GFR POC Glucose 151 H 217 H Random Glucose Lactic Acid Lactic Acid F/U @ 2Hr 2.1 H* Calcium Phosphorus Magnesium Total Bilirubin AST ALT Alkaline Phosphatase Troponin I High Sens Total Protein Albumin Blood Type Antibody Screen Crossmatch 04/11/22 04/11/22 04/11/22 05:25 05:25 05:31 WBC 13.0 H RBC 2.16 L Hgb 6.5 L* Hct 18.3 L* MCV 84.7 MCH 30.1 MCHC 35.5 RDW 21.3 H Plt Count 83 L MPV Not Reportable Immature Gran % (Auto) 1.6 H Neut % (Auto) 89.3 H Lymph % (Auto) 2.9 L [place] % (Auto) 6.0 Eos % (Auto) 0.0 Baso % (Auto) 0.2 Lymph # (Auto) 0.4 L [place] # (Auto) 0.8 Eos # (Auto) 0.0 Baso # (Auto) 0.0 Abs Immat Gran (auto) 0.21 H Absolute Neuts (auto) 11.6 H Absolute Nucleated RBC 0.230 H Nucleated RBC % (auto) 1.8 H VBG pH 7.32 VBG pCO2 32 VBG pO2 52 VBG HCO3 17 L VBG O2 Saturation 78.0 VBG Base Excess -7.6 Sodium 127 L Potassium 4.0 Chloride 90 L Carbon Dioxide 19 L Anion Gap 22 H BUN 87 H Creatinine 4.67 H* Estim Creat Clear Calc 12.8 Estimated GFR 12 POC Glucose Random Glucose 207 H Lactic Acid Lactic Acid F/U @ 2Hr Calcium 7.9 L Phosphorus 6.9 H Magnesium 2.0 Total Bilirubin 2.0 H AST 36 ALT 28 Alkaline Phosphatase 146 H Troponin I High Sens Total Protein 5.4 L Albumin 3.9 Blood Type Antibody Screen Crossmatch 04/11/22 07:38 WBC RBC Hgb Hct MCV MCH MCHC RDW Plt Count MPV Immature Gran % (Auto) Neut % (Auto) Lymph % (Auto) [place] % (Auto) Eos % (Auto) Baso % (Auto) Lymph # (Auto) [place] # (Auto) Eos # (Auto) Baso # (Auto) Abs Immat Gran (auto) Absolute Neuts (auto) Absolute Nucleated RBC Nucleated RBC % (auto) VBG pH VBG pCO2 VBG pO2 VBG HCO3 VBG O2 Saturation VBG Base Excess Sodium Potassium Chloride Carbon Dioxide Anion Gap BUN Creatinine Estim Creat Clear Calc Estimated GFR POC Glucose Random Glucose Lactic Acid Lactic Acid F/U @ 2Hr Calcium Phosphorus Magnesium Total Bilirubin AST ALT Alkaline Phosphatase Troponin I High Sens Total Protein Albumin Blood Type O Positive Antibody Screen NEGATIVE Crossmatch See Detail Microbiology Microbiology Results: Microbiology 04/05/22 15:37 Abdominal Fluid Gram Stain - Final 04/05/22 15:37 Abdominal Fluid Routine Culture - Final No growth after 2 days 04/05/22 15:37 Abdominal Fluid Anaerobic Culture - Final NO GROWTH AFTER 5 DAYS 04/07/22 06:38 Blood - Venous Blood Culture - Final Coag negative Staphylococcus 04/07/22 06:38 Blood - Venous Blood Culture - Preliminary No growth after 48 hours. 04/01/22 12:27 Blood - Venous Blood Culture - Final No growth after 5 days. 04/01/22 12:27 Blood - Venous Blood Culture - Final No growth after 5 days. Progress Note: A&P Assessment and plan (1) Tachycardia-bradycardia: Status: Acute (2) Ileus: Status: Acute (3) Encephalopathy: Status: Acute (4) Pulmonary edema with congestive heart failure: Status: Acute (5) Acute kidney injury superimposed on CKD: Status: Acute (6) Acute respiratory failure: Status: Acute (7) DMII (diabetes mellitus, type 2): Status: Acute (8) Cardiac arrest: Status: Acute Plan Assessment: 77-year-old gentleman has multiple medical issues admitted with weakness and treated for acute respiratory failure secondary to acute on chronic congestive heart failure with hospital course complicated by respiratory arrests and symptomatic bradycardia now requiring ventilatory support. Plan: Neuro: Patient waking up after CPR, requiring sedative drips to tolerate ventilatory support, though not puposeful with sedation vacation, likely secondary to critical illness encephalopathy. Cardiac: Acute on chronic diastolic congestive heart failure. Underlying AFib and CAD. Respiratory arrest. now with episodes of tachycardia / bradycardia with to 13 seconds pauses requiring backup transcutaneous pacing. Also with two PEA arrests while on transcutaneous pacing, successfully resuscitated on 04/10/2022. Overall prognosis is terminal. 2D echocardiogram with normal LVEF and right-sided dysfunction. Pulmonary: acute hypoxic respiratory failure secondary to pulmonary edema resulting in respiratory arrest now requiring ventilatory support. Ventilator requirements improved with hemodialysis. Continue to titrate off ventilatory support as tolerated. Renal: Acute kidney injury on the background of chronic kidney disease likely secondary to exacerbation of acute on chronic diastolic congestive heart failure. Oliguric. Nephrology service care appreciated. Continue on hemodialysis support. Continue to monitor renal indices and urine output. Endo: No acute issues. Underlying diabetes mellitus. GI: abdominal distension with increased residuals, CT abdomen without evidence of bowel obstruction, likely ileus. Still with high residuals. ID: 1/[id number] blood cultures positive for coagulase-negative Staphylococcus contamination. Empirically covered with ceftriaxone. Heme/Onc: No acute issues. Psych: No acute issues. Miscellaneous: Discussion of goals of care ongoing with the family. Prophylaxis: heparin, famotidine Diet: tube feeds Critical care time spent: Quality Stroke Does the patient have a stroke diagnosis?: No VTE Prior VTE?: No VTE Risk Level:: Medical - moderate - high VTE Device Contraindication: Treatment Not Indicated VTE Drug Contraindication: N/A - Med Ordered
--- NOTE | 2022-04-11 13:58 | PM.PNNEP ---
Subjective Subjective Date of Service: 04/11/22 Interval history: ICU day 7 for tachy-shaista syndrome, acute hypoxic respiratory failure, acute kidney failure, acute on chronic diastolic congestive heart failure, respiratory arrest, PEA arrest Coded twice last night Physical Exam Vital Signs: Vital Signs: Last Vital Signs Temp 97.0 F 04/11/22 13:55 Pulse 66 04/11/22 13:55 Resp 22 H 04/11/22 13:55 BP 130/35 L 04/11/22 13:55 Pulse Ox 95 04/11/22 13:55 O2 Del Method 04/11/22 13:55 O2 Flow Rate 100 04/10/22 22:00 FiO2 60 04/11/22 13:55 BMI result Body Mass Index 30.3 Objective Data Labs CBC & Chem 7: 04/11/22 05:25 04/11/22 05:25 Labs: Laboratory Results - last 24 hr 04/10/22 04/10/22 04/10/22 17:11 17:13 17:13 WBC 19.4 H RBC 2.53 L Hgb 7.5 L Hct 21.9 L MCV 86.6 MCH 29.6 MCHC 34.2 RDW 22.0 H Plt Count 108 L MPV Not Reportable Immature Gran % (Auto) Neut % (Auto) Lymph % (Auto) [place] % (Auto) Eos % (Auto) Baso % (Auto) Lymph # (Auto) [place] # (Auto) Eos # (Auto) Baso # (Auto) Abs Immat Gran (auto) Absolute Neuts (auto) Absolute Nucleated RBC 0.240 H Nucleated RBC % (auto) 1.2 H VBG pH 7.19 L* VBG pCO2 33 VBG pO2 75 VBG HCO3 13 L VBG O2 Saturation 90.0 VBG Base Excess -14.0 Sodium 129 L Potassium 4.5 Chloride 96 Carbon Dioxide 14 L Anion Gap 24 H BUN 83 H Creatinine 4.75 H* Estim Creat Clear Calc 12.6 Estimated GFR 12 POC Glucose Random Glucose 223 H Lactic Acid Lactic Acid F/U @ 2Hr Calcium 7.9 L Phosphorus 7.5 H Magnesium 2.1 Total Bilirubin 2.1 H AST 51 H ALT 34 Alkaline Phosphatase 190 H Troponin I High Sens Total Protein 5.5 L Albumin 3.8 Blood Type Antibody Screen Crossmatch 04/10/22 04/10/22 04/10/22 17:13 17:13 17:17 WBC RBC Hgb Hct MCV MCH MCHC RDW Plt Count MPV Immature Gran % (Auto) Neut % (Auto) Lymph % (Auto) [place] % (Auto) Eos % (Auto) Baso % (Auto) Lymph # (Auto) [place] # (Auto) Eos # (Auto) Baso # (Auto) Abs Immat Gran (auto) Absolute Neuts (auto) Absolute Nucleated RBC Nucleated RBC % (auto) VBG pH VBG pCO2 VBG pO2 VBG HCO3 VBG O2 Saturation VBG Base Excess Sodium Potassium Chloride Carbon Dioxide Anion Gap BUN Creatinine Estim Creat Clear Calc Estimated GFR POC Glucose 151 H Random Glucose Lactic Acid 3.2 H* Lactic Acid F/U @ 2Hr Calcium Phosphorus Magnesium Total Bilirubin AST ALT Alkaline Phosphatase Troponin I High Sens 45.5 H D Total Protein Albumin Blood Type Antibody Screen Crossmatch 04/10/22 04/11/22 04/11/22 20:12 00:34 05:25 WBC 13.0 H RBC 2.16 L Hgb 6.5 L* Hct 18.3 L* MCV 84.7 MCH 30.1 MCHC 35.5 RDW 21.3 H Plt Count 83 L MPV Not Reportable Immature Gran % (Auto) 1.6 H Neut % (Auto) 89.3 H Lymph % (Auto) 2.9 L [place] % (Auto) 6.0 Eos % (Auto) 0.0 Baso % (Auto) 0.2 Lymph # (Auto) 0.4 L [place] # (Auto) 0.8 Eos # (Auto) 0.0 Baso # (Auto) 0.0 Abs Immat Gran (auto) 0.21 H Absolute Neuts (auto) 11.6 H Absolute Nucleated RBC 0.230 H Nucleated RBC % (auto) 1.8 H VBG pH VBG pCO2 VBG pO2 VBG HCO3 VBG O2 Saturation VBG Base Excess Sodium Potassium Chloride Carbon Dioxide Anion Gap BUN Creatinine Estim Creat Clear Calc Estimated GFR POC Glucose 217 H Random Glucose Lactic Acid Lactic Acid F/U @ 2Hr 2.1 H* Calcium Phosphorus Magnesium Total Bilirubin AST ALT Alkaline Phosphatase Troponin I High Sens Total Protein Albumin Blood Type Antibody Screen Crossmatch 04/11/22 04/11/22 04/11/22 05:25 05:31 07:38 WBC RBC Hgb Hct MCV MCH MCHC RDW Plt Count MPV Immature Gran % (Auto) Neut % (Auto) Lymph % (Auto) [place] % (Auto) Eos % (Auto) Baso % (Auto) Lymph # (Auto) [place] # (Auto) Eos # (Auto) Baso # (Auto) Abs Immat Gran (auto) Absolute Neuts (auto) Absolute Nucleated RBC Nucleated RBC % (auto) VBG pH 7.32 VBG pCO2 32 VBG pO2 52 VBG HCO3 17 L VBG O2 Saturation 78.0 VBG Base Excess -7.6 Sodium 127 L Potassium 4.0 Chloride 90 L Carbon Dioxide 19 L Anion Gap 22 H BUN 87 H Creatinine 4.67 H* Estim Creat Clear Calc 12.8 Estimated GFR 12 POC Glucose Random Glucose 207 H Lactic Acid Lactic Acid F/U @ 2Hr Calcium 7.9 L Phosphorus 6.9 H Magnesium 2.0 Total Bilirubin 2.0 H AST 36 ALT 28 Alkaline Phosphatase 146 H Troponin I High Sens Total Protein 5.4 L Albumin 3.9 Blood Type O Positive Antibody Screen NEGATIVE Crossmatch See Detail 04/11/22 11:26 WBC RBC Hgb Hct MCV MCH MCHC RDW Plt Count MPV Immature Gran % (Auto) Neut % (Auto) Lymph % (Auto) [place] % (Auto) Eos % (Auto) Baso % (Auto) Lymph # (Auto) [place] # (Auto) Eos # (Auto) Baso # (Auto) Abs Immat Gran (auto) Absolute Neuts (auto) Absolute Nucleated RBC Nucleated RBC % (auto) VBG pH VBG pCO2 VBG pO2 VBG HCO3 VBG O2 Saturation VBG Base Excess Sodium Potassium Chloride Carbon Dioxide Anion Gap BUN Creatinine Estim Creat Clear Calc Estimated GFR POC Glucose 150 H Random Glucose Lactic Acid Lactic Acid F/U @ 2Hr Calcium Phosphorus Magnesium Total Bilirubin AST ALT Alkaline Phosphatase Troponin I High Sens Total Protein Albumin Blood Type Antibody Screen Crossmatch Microbiology Microbiology Results: Microbiology 04/05/22 15:37 Abdominal Fluid Gram Stain - Final 04/05/22 15:37 Abdominal Fluid Routine Culture - Final No growth after 2 days 04/05/22 15:37 Abdominal Fluid Anaerobic Culture - Final NO GROWTH AFTER 5 DAYS 04/07/22 06:38 Blood - Venous Blood Culture - Final Coag negative Staphylococcus 04/07/22 06:38 Blood - Venous Blood Culture - Preliminary No growth after 48 hours. 04/01/22 12:27 Blood - Venous Blood Culture - Final No growth after 5 days. 04/01/22 12:27 Blood - Venous Blood Culture - Final No growth after 5 days. Procedures Date of Service Date of Service: 04/11/22 Assessment & Plan Assessment and plan (1) Symptomatic bradycardia: Status: Inactive (2) Pulmonary edema with congestive heart failure: Status: Acute (3) Respiratory arrest: Status: Acute (4) CHANTE (acute kidney injury): Status: Acute Assessment and Plan: 77-YEAR-OLD WITH MULTIPLE CHRONIC MEDICAL PROBLEMS, ADMITTED WITH ACUTE KIDNEY INJURY, NON-ANION GAP METABOLIC ACIDOSIS AND NEWLY DISCOVERED ASCITES WITH A HISTORY OF HEAVY NEAR-NEPHROTIC RANGE PROTEINURIA IN THE PAST. he remains oliguric with a low fractional excretion of sodium consistent with either septic or cardiogenic shock his echocardiogram did not show a reduced ejection fraction he is on pressors getting albumin remains oliguric dialysis Had HD Tuesday No Hdtoday Will follow for HD needs in [place] Still oliguric Can try IV diuretic Drip Minimize free H2O given low NA Poor prognosis - ? Palliatice care - Family comimg [place] per nursing staff D/w ICU nursing team (5) PAD (peripheral artery disease): Status: Acute (6) DMII (diabetes mellitus, type 2): Status: Acute (7) Type 2 diabetes mellitus with peripheral artery disease: Status: Acute (8) Acute kidney injury superimposed on CKD: Status: Acute Plan Time Spent With Patient Time: Total time managing care of this patient today ____ minutes. Progress Note: Quality Stroke Does the patient have a stroke diagnosis?: No
[2022-04-11] MEDS: cefTRIAXone sodium 1 GM in 0.9 % Sodium Chloride 50 ML IV (14:48)
[2022-04-11] MEDS: propofoL 1,000 MG/100 ML VIAL 23.97 MG IVCONT ×3 (15:17→21:42)
[2022-04-11] MEDS: 0.9 % Sodium Chloride Flush 3 ML SYRINGE IVFLUSH ×2 (15:32→23:30)
[2022-04-11] MEDS: fentaNYL citrate/NS 1,000 MCG/100 ML PLAST..BAG 2.5 MCG IVCONT (15:43)
--- NOTE | 2022-04-11 16:21 | PC.NURSE ---
Assumed care of patient 07:00. Patient remains transcutaneously paced at 60 ppm, 12 mAmps. 09:15 FiO2 decreased from 100% to 60%. SaO2 94% 09:30 Patient received bed bath, skin care, hair brushing 10:00 Cardiology consult saw patient at bedside 12:00 Pacer pads changed with MD at bedside 14:30 Nephrology consult saw patient at bedside. Plan will be for dialysis Tuesday per MD 15:35 Patient has vent asynchrony, breath stacking, SaO2 86%, RR 18. Sedation increased to 50 mcg/kg/min per protocol. MD notified and per MD restarted fentanyl gtt @25. FiO2 adjusted from 6o% to 80%. Vent synchrony improved, SaO2 90%.
[2022-04-12] VITALS (40 sets, daily range): BP systolic 77–146; BP diastolic 40–67; PULSE 60–75; RESP 16–24; TEMP 34.2–36.7; O2SAT 90–100; BMI 27.8
[2022-04-12] MEDS: propofoL 1,000 MG/100 ML VIAL 23.97 MG IVCONT ×4 (01:42→12:55)
[2022-04-12] MEDS: fentaNYL citrate/NS 1,000 MCG/100 ML PLAST..BAG 5 MCG IVCONT (04:26)
[2022-04-12 05:10] LABS: VBG Base Excess 1.1 mmol/L; VBG HCO3 24 mmol/L (22-26); VBG pCO2 34 mmHg; VBG pH 7.46 (7.32-7.43); VBG pO2 51 mmHg
[2022-04-12 05:22] LABS: Hematocrit 25.5 % (42.0-52.0); Hemoglobin 9.2 g/dl (14.0-18.0); Mean Corpuscular HGB Conc 36.1 g/dl (31.0-36.0); PLT ABN DIST 1; SCAN SMEAR FLAG 1
[2022-04-12 05:24] LABS: Basophils Absolute Auto 0.1 X10*3/uL (0.0-0.2); Basophils Percent Auto 0.4 % (0-2); Eosinophils Percent Auto 0.2 % (0-4); Imm Gran Abs Auto 0.26 X10*3/uL (0.00-0.03); Imm Gran Pct Auto 1.6 % (0.0-0.4); Lymphocytes Absolute Auto 0.4 X10*3/uL (1.2-4.9); Lymphocytes Percent Auto 2.6 % (20-40); MANUAL DIFF FLAG SCAN; Mean Corpuscular Hemoglobin 30.2 pg (27.0-33.0); Mean Corpuscular Volume 83.6 fL (80.0-98.0); Monocytes Absolute Auto 0.5 X10*3/uL (0.1-1.2); Monocytes Percent Auto 3.2 % (2-11); NRBC Pct Auto 1.5 /100WBC (0.0-0.2); Neutrophils Absolute Auto 15.3 x10*3/uL (2.0-8.3); Red Blood Count 3.05 X10*6/uL (4.60-5.80); Red Cell Distribution Width 19.7 % (11.0-16.0); White Blood Count 16.6 X10*3/uL (4.8-10.8)
[2022-04-12 05:25] LABS: Platelet Count 64 X10*3/uL (160-400)
[2022-04-12 05:42] LABS: SLIDE REVIEW VERIFIED
--- NOTE | 2022-04-12 05:47 | PC.NURSE ---
Addendum entered by Armond Burnham RN 04/12/22 06:03: 8 HOUR ROSALES OUTPUT= 80ml YELLOW URINE Addendum entered by Armond Burnham RN 04/12/22 05:59: AM CHEMISTRY REVIEWED WITH ICU [employer]--D5W/NaHCO3 DRIP HELD PER [employer] Original Note: CARE ASSUMED 23:15...REMAINS TUBED/VENTED...VCV VENT SUPPORT..ETCO2 20-21...SAO2 95% WITH FIO2 60%....REMAINS DEEP SEDATION ON PROPOFOL/FENTANYL PER JUN D/T EXTERNAL PACING....MONITOR PACED RHYTHM WITH UPPER SKAGIT BEATS...ZOLL PACER RATE 60 AND MA 12...ZOLL LIMB LEADS APPLIED TO FACILITATE SENSING OF UPPER SKAGIT BEATS/RHYTHM...NSR HR 63-65 AND ONLY ISOLATED PACED BEATS AFTERWARDS...DOPAMINE REMAINS 10 MCG/KG/MIN AND LEVOPHED 0.03 MCG/KG/MIN...CONUES D5W/NaHCO3 DRIP 100 CC/HR...AM CHEMISTRY PENDING...POC GLUCOSE COVERAGE HELD PER ICU [employer]...REMAINS NPO...ABDOMEN DISTENDED/SEMI-FIRM AND SILENT...ROSALES SMALL AMOUNT YELLOW URINE...TO CONTINUE TO HOLD HEPARIN SC PER SHIFT REPORT AND PER ICU [employer]....FOAM DRESSINGS TO COCCYX AND SACRUM DRY/INTACT
[2022-04-12 05:48] LABS: Glucose, Whole Blood 196 mg/dL (60-115)
[2022-04-12 05:49] LABS: Albumin Level 3.2 g/dL (3.5-5.0); Anion Gap 24 (12-20); Blood Urea Nitrogen 90 mg/dL (9-16); Calcium 7.5 mg/dL (8.4-10.2); Carbon Dioxide 24 mmol/L (22-29); Chloride 83 mmol/L (96-108); Creatinine Clr Calc Pharmacy 13.6; Estimated Glomerular Filt Rate 12; Glucose Random 195 mg/dL (60-115); Magnesium 1.7 mg/dL (1.6-2.6); Phosphorus 6.2 mg/dL (2.7-4.5); Potassium 3.7 mmol/L (3.3-5.1); Sodium 127 mmol/L (135-145)
[2022-04-12] MEDS: Chlorhexidine Gluc Oral Rinse 15 ML MOUTHWASH BUCCAL ×3 (07:48→20:28)
[2022-04-12] MEDS: Norepinephrine Bitartrate/D5W 8 MG/250 ML PLAST..BAG 10.84 MG IV (08:18)
[2022-04-12] MEDS: 0.9 % Sodium Chloride Flush 3 ML SYRINGE IVFLUSH ×2 (08:20→15:25)
[2022-04-12] MEDS: DOPamine HCL/D5W 400 MG/250 ML PLAST..BAG 29.96 MG IVCONT (08:25)
[2022-04-12 08:47] LABS: Venous Blood Gas Refer to POC result
[2022-04-12] MEDS: Lactulose 20 GM/30 ML SOLUTION PO ×2 (09:18→20:29)
[2022-04-12] MEDS: Famotidine/PF 20 MG/2 ML VIAL IVPUSH (09:18)
[2022-04-12] MEDS: timoloL maleate 0.5 % Oph Sol 5 ML DRBTL 1 DROP EYE-LEFT (09:20)
--- NOTE | 2022-04-12 11:02 | PM.PNCARD ---
Subjective Subjective Date of Service: 04/12/22 Interval history: Seen examined at bedside. Physical Exam Vital Signs: Last Vital Signs Temp 96.8 F 04/12/22 10:00 Pulse 61 04/12/22 10:00 Resp 20 04/12/22 10:00 BP 117/57 L 04/12/22 10:00 Pulse Ox 93 04/12/22 10:00 O2 Del Method 04/12/22 10:00 O2 Flow Rate 100 04/10/22 22:00 FiO2 60 04/12/22 10:00 BMI result Body Mass Index 27.8 GENERAL APPEARANCE: Sedated and ventilated. SKIN: no suspicious lesions, warm and dry. HEART: no murmurs, regular rate and rhythm. Transcutaneous pacing pads on but currently not pacing. LUNGS: Clear anteriorly. ABDOMEN: Soft. EXTREMITIES: no significant edema. PERIPHERAL PULSES: equal. Objective Labs and Meds Result diagrams: 04/12/22 05:00 04/12/22 05:00 Lab results: Laboratory Results - last 24 hr 04/11/22 04/11/22 04/11/22 07:38 11:26 17:40 WBC RBC Hgb Hct MCV MCH MCHC RDW Plt Count MPV Immature Gran % (Auto) Neut % (Auto) Lymph % (Auto) [place] % (Auto) Eos % (Auto) Baso % (Auto) Lymph # (Auto) [place] # (Auto) Eos # (Auto) Baso # (Auto) Abs Immat Gran (auto) Absolute Neuts (auto) Absolute Nucleated RBC Nucleated RBC % (auto) Smear Tech's Comments VBG pH VBG pCO2 VBG pO2 VBG HCO3 VBG O2 Saturation VBG Base Excess Sodium Potassium Chloride Carbon Dioxide Anion Gap BUN Creatinine Estim Creat Clear Calc Estimated GFR POC Glucose 150 H 197 H Random Glucose Calcium Phosphorus Magnesium Albumin Crossmatch See Detail 04/11/22 04/12/22 04/12/22 23:56 05:00 05:00 WBC 16.6 H RBC 3.05 L D Hgb 9.2 L D Hct 25.5 L D MCV 83.6 MCH 30.2 MCHC 36.1 H RDW 19.7 H Plt Count 64 L MPV Not Reportable Immature Gran % (Auto) 1.6 H Neut % (Auto) 92.0 H Lymph % (Auto) 2.6 L [place] % (Auto) 3.2 Eos % (Auto) 0.2 Baso % (Auto) 0.4 Lymph # (Auto) 0.4 L [place] # (Auto) 0.5 Eos # (Auto) 0.0 Baso # (Auto) 0.1 Abs Immat Gran (auto) 0.26 H Absolute Neuts (auto) 15.3 H Absolute Nucleated RBC 0.250 H Nucleated RBC % (auto) 1.5 H Smear Tech's Comments VERIFIED VBG pH VBG pCO2 VBG pO2 VBG HCO3 VBG O2 Saturation VBG Base Excess Sodium 127 L Potassium 3.7 Chloride 83 L Carbon Dioxide 24 Anion Gap 24 H BUN 90 H D Creatinine 4.76 H* Estim Creat Clear Calc 13.6 Estimated GFR 12 POC Glucose 171 H Random Glucose 195 H D Calcium 7.5 L Phosphorus 6.2 H Magnesium 1.7 Albumin 3.2 L Crossmatch 04/12/22 04/12/22 05:02 05:44 WBC RBC Hgb Hct MCV MCH MCHC RDW Plt Count MPV Immature Gran % (Auto) Neut % (Auto) Lymph % (Auto) [place] % (Auto) Eos % (Auto) Baso % (Auto) Lymph # (Auto) [place] # (Auto) Eos # (Auto) Baso # (Auto) Abs Immat Gran (auto) Absolute Neuts (auto) Absolute Nucleated RBC Nucleated RBC % (auto) Smear Tech's Comments VBG pH 7.46 H VBG pCO2 34 VBG pO2 51 VBG HCO3 24 VBG O2 Saturation 78.0 VBG Base Excess 1.1 Sodium Potassium Chloride Carbon Dioxide Anion Gap BUN Creatinine Estim Creat Clear Calc Estimated GFR POC Glucose 196 H Random Glucose Calcium Phosphorus Magnesium Albumin Crossmatch Progress Note: A&P Assessment and plan (1) Tachycardia-bradycardia: Status: Acute (2) Pulmonary edema with congestive heart failure: Status: Acute Plan 77 male with cardiac arrest who has been sedated and ventilated. He had CHF but due to CHANTE was not making any urine and had HD. Also anemic and received blood. He has PAF with tachy shaista syndrome. Previously was on amiodarone. Two episodes of cardiac arrest on April 10 with pulseless electrical activity. He is very sick and his prognosis is guarded. I had discussed with the that his prognosis poor. He should not be full code and putting up permanent pacemaker may not prolong his life. We will follow along with you. Thank you for allowing me to participate in the care of your patient. Please feel free to contact me if you have any questions. Time Spent With Patient Time: Total time managing care of this patient today ____ minutes. Progress Note: Quality Stroke Does the patient have a stroke diagnosis?: No Procedures Date of Service Date of Service: 04/12/22
[2022-04-12] MEDS: EPINEPHrine 5 MG in Dextrose 5 % 250 ML 26.16 MG IVCONT (11:23)
--- NOTE | 2022-04-12 11:25 | MHC.CM.PN ---
Pt continues care in ICU: intubated, HD initiated and overall condition very guarded. Family has been in to visit and are aware of the serious nature of pt's illness and possible poor outcomes. No plans to reduce or stop aggressive care measures at this time. CM to follow for d/c planning when medically appropriate.
--- NOTE | 2022-04-12 12:41 | MHC.CLN ---
F/U PT REMAINS INTUBATED AND SEDATED TF ON HOLD SINCE 04/10. TWO EPISODES OF CARDIAC ARREST 04/10. HAD HD 04/09 AND SCHEDULED FOR 04/12. NEPHROLOGY FOLLOWING. RESUME TUBE FEEDING WHEN ABLE. PT'S GOAL NEPRO AT 40ML/HR TO PROVIDE 1728KCALS (2390KCALS WITH SEDATION; 27KCALS/KG), 88G PROTEIN, 698ML FREE WATER FROM FORMULA. MONITOR TOLERANCE, RESIDUALS AND LYTES.
--- NOTE | 2022-04-12 12:51 | PM.CCPN ---
Subjective Subjective Date of Service: 04/12/22 Interval History: Mr. Romo was transferred to ICU on Apr 05 after a cardiac arrest on the medical head. The patient is a 77 yo M with PMHx of DM with h/o diabetic foot ulcers, diabetic neuropathy, diabetic nephropathy with CKD 3, PVD s/p left TMA, asthma, HTN, HLD, CAD on Plavix, and PAFib on apixaban, He was previously admitted here Feb [id number] for SOB.? CXR showed diffuse bilat infiltrates and he was COVID positive.? Admitting SpO2 was 86% on 2LNC.? He was treated for COVID and for bacterial pneumonia.? His oxygenation initially worsened, but then improved, even though a repeat CXR on Mar 03 was far worse than the CXR of Feb 21.? (Did not have a chest CT.)? He was discharged from the hospital to rehab on 2 or 3L NC. Prior to that hospitalization, he?d been living at home with his , getting around with a walker, doing his own ADLs.? was concerned that he had dementia.? The patient was d/c home from [facility] about the first week in March.? He was very weak, but not on oxygen.? Needed help with ADLs. HISTORY OF PRESENT ILLNESS: ?He was BIBA to the ED from home on Apr 01 bec of generalized weakness and a fall.? He was oriented x3 but otherwise unable to provide any hx.? He was afebrile, breathing easy w SpO2 low 90?s on room air.? CXR was similar to the prev film of Mar 03, with newly obscured right hemidiaph.? WBC was 13 (was 8 previously).? BUN/creat 40/1.9 (was 32/1.2).? He had marked edema and ascites on abdom CT. The patient was admitted w diagnoses of dehydration, CHANTE, and possible pneumonia.? He required suppl oxygen.? He became more hypoxemic.? BUN/creat improved.? Ascites got worse.? Chest CT on Apr 04 showed mod-severe emphysema and severe bilat diffuse ground glass infiltrates.? Diuresis was added to ceftriaxone and Zithromax. On the morning of Apr 05, his oxygenation worsened and he wound up on 100% CPAP.? Later that day, he had an aystolic arrest after taking off his CPAP mask.? Had ROSC after 1mg epi, 7 min CPR.? The patient was struggling during the intubation.? Was tx to ICU. Subsequently, he underwent paracentesis for 2.25 L.? echocardiogram that day showed normal LV size and systolic function.? Mild LVH.? RV size was mildly increased with mildly decreased function.? Both atria were dilated.? There were no significant valvular Doppler abnormalities.? The IVC was dilated with no inspiratory collapse.? His renal fxn deteriorated.? He failed diuresis.? ICU course further complicated by persistent bradycardia with poor response to dopamine, required transcutaneous pacing.? The patient was started on hemodialysis on April 07.? He went in and out of AFib. On April 10, he had two episodes of PEA arrest associated with lack of capture from the transcutaneous pacer pads..? These were thought secondary to metabolic acidosis.? Dr. Marquez felt that a permanent pacemaker was unlikely to prolong his life and might not even work given how sick he was.? He spoke with the patient?s and advised against it, and advised DNR status.? The same has been discussed with the patient's by Dr. Winn and HELEN San.? Dr. Winn indicated to me that the patient was pacemaker dependent all day yesterday. Last dialysis was Monday 04/09, but had to be aborted after about an hour because of extreme hypotension. ?Today dialysis was started but had to be terminated after about half an hour because of poor flow through the catheter.? The patient is well sedated on propofol 50ug, fentanyl 50ug. ?Also on Epi 0.5ug, Levo 0.02ug, and Dopamine 4ug.? HR 66, BP 137/58.? On ACVC 16/400/60%/+5, RR is 18-22, Ve 7L, PIP 24cm, ETCO2 22, Sat 90%.? CVBG this morning 7.46/34/+1.? Afebrile, Temp 96.8.? No JVD at 20?.? Abdomen tense with ascites.? 2+ central edema.? Feet are cold (altho not cadaveric). LABORATORY DATA:? Below.? Notably, white count up, hemoglobin up after transfusion 1 unit RBCs yesterday.? Platelet count down to 64,000. Sodium steady, BUN/creatinine up to 90/4.7, bicarb up to 24, potassium okay, phosphorus 6.2, magnesium 1.7, albumin 3.2. My bedside echocardiogram today: IMPRESSION: 1. Underlying CKD 2. Underlying CAD 3. Underlying PAfib 4. Underlying diastolic dysfxn, per echo 5. Progressive hypoxemic respiratory failure thought secondary to acute congestive heart failure 2? above.? Ventilatory requirements improved with hemodialysis. 6. Cardiac arrest.? Likely respiratory in origin.? Duration of cessation of spont circulation, if any, likely no more than 7min, but this was a hypoxemic arrest (assoc with worse neuro outcomes than a non-hypoxemic arrest). 7. Now with tachy-shaista syndrome, with two PEA arrests, requiring transcutaneous pacing.? Was pacemaker dependent all day yesterday.? Under ordinary circumstances, a PPM would have been implanted already. 8. Acute renal failure.? Cause is unclear to me.? Could be ATN 2? cardiac arrest, could be prerenal (Urine Na on Apr 06 -- after the paracentesis -- was low). ?Needs daily HD.? I will place a new catheter.? Discussed at length with Dr. Palafox and the dialysis nurse. 9. Abdominal distension with increased ascites.? May have some role in worsening resp status.? Paracentesis tomorrow. 10. ID:?? 1/2 blood cultures positive for coagulase-negative Staphylococcus contamination.? Empirically covered with ceftriaxone.? Redraw BCs tomorrow. 11. Underlying DM.? On sliding scale Lispro. 12. Thrombocytopenia.? Likely 2? critical illness. 13. Underlying PVD.? Feet are cold but no gross ischemia as yet. 14. Hypomagnesemia.? Replete. 15. Neuro:? The patient seemed to be waking up to some degree after the first cardiac arrest, requiring sedative drips to tolerate ventilatory support, though he?s not been purposeful with sedation vacations, likely secondary to either anoxic or critical illness encephalopathy. Overall prognosis is very poor.? I don?t see him surviving to leave the hospital (even with a tracheostomy).? I spoke to the patient?s Cathryn by phone for some time, and explained everything going on, and added my opinion to her (in addition to the three above) that survival was unlikely.? She has a lot going on in the family and is not yet ready to make any decisions. ADDENDUM:? I removed the right IJV CVL and replaced it with a right supraclavicular CVL (separate procedure).? I then put in a new right IJV temporary dialysis catheter (separate procedure).? The postprocedure film showed a right pneumothorax, so a Delvis pneumothorax drainage catheter was placed (separate procedure).? The film following that showed near complete resolution of the pneumothorax. ADDENDUM:? We attempted dialysis again with the new dialysis catheter.? Dialysis flow was fantastic, but the patient tolerated the dialysis very poorly, with blood pressure dropping into the 50/30s, refractory to high-dose epinephrine and high dose Levophed, even with dialysis flow down to 200 cc.? Dialysis was therefore abandoned.? Following that, we rechecked the chest x-ray.? The pneumothorax had recurred.? I checked the Delvis pneumothorax catheter.? Nothing was able to be aspirated.? Therefore under sterile condition that was removed and a new pneumothorax drainage catheter placed (separate procedure).? Chest x-ray following that procedure showed full resolution of the pneumothorax.? Blood pressure and approved, but the patient is still requiring medium-high dose Levophed and epinephrine. ADDENDUM AT 18 30:? The patient?s came in to visit with her sister.? I spoke with both of them at some length in the waiting room, and then again at the bedside, after they had had a chance to spend some time with Matheus.? She does not want to see him suffer anymore.? She wants to stop critical care management and take away the tubes.? She was unsure when to do this.? I advised her to sleep on it overnight and have her two sons come in to see him tomorrow.? She doesn?t want to see him after the tubes are removed (i.e. right before he dies).? I indicated that it was most likely that he would pass within minutes of discontinuing critical care management. At this point, I have written DNR/DNI orders.? We will not do cardiopulmonary resuscitation or dialysis again, and we will not further attempt transcutaneous (or any other kind of) pacing.? We will not increase further any level of support.? The plan, per the patient, will be a change to [employer] status tomorrow. Critical care time (including full chart rev, hospital course summary, and mult d/w Dr. Winn; excluding procedures): 2.5+ hrs. Critical Care Time (minutes): 150 Physical Exam Vital Signs: Vital Signs: Last Vital Signs Temp 96.6 F L 04/12/22 12:00 Pulse 75 04/12/22 12:03 Resp 24 H 04/12/22 12:00 BP 121/59 L 04/12/22 12:03 Pulse Ox 92 04/12/22 12:00 O2 Del Method 04/12/22 12:00 O2 Flow Rate 100 04/10/22 22:00 FiO2 60 04/12/22 12:00 BMI result Body Mass Index 27.8 Objective Data Labs CBC & Chem 7: 04/12/22 05:00 04/12/22 05:00 Labs: Laboratory Results - last 24 hr 04/11/22 04/11/22 04/12/22 17:40 23:56 05:00 WBC 16.6 H RBC 3.05 L D Hgb 9.2 L D Hct 25.5 L D MCV 83.6 MCH 30.2 MCHC 36.1 H RDW 19.7 H Plt Count 64 L MPV Not Reportable Immature Gran % (Auto) 1.6 H Neut % (Auto) 92.0 H Lymph % (Auto) 2.6 L [place] % (Auto) 3.2 Eos % (Auto) 0.2 Baso % (Auto) 0.4 Lymph # (Auto) 0.4 L [place] # (Auto) 0.5 Eos # (Auto) 0.0 Baso # (Auto) 0.1 Abs Immat Gran (auto) 0.26 H Absolute Neuts (auto) 15.3 H Absolute Nucleated RBC 0.250 H Nucleated RBC % (auto) 1.5 H Smear Tech's Comments VERIFIED VBG pH VBG pCO2 VBG pO2 VBG HCO3 VBG O2 Saturation VBG Base Excess Sodium Potassium Chloride Carbon Dioxide Anion Gap BUN Creatinine Estim Creat Clear Calc Estimated GFR POC Glucose 197 H 171 H Random Glucose Calcium Phosphorus Magnesium Albumin 04/12/22 04/12/22 04/12/22 05:00 05:02 05:44 WBC RBC Hgb Hct MCV MCH MCHC RDW Plt Count MPV Immature Gran % (Auto) Neut % (Auto) Lymph % (Auto) [place] % (Auto) Eos % (Auto) Baso % (Auto) Lymph # (Auto) [place] # (Auto) Eos # (Auto) Baso # (Auto) Abs Immat Gran (auto) Absolute Neuts (auto) Absolute Nucleated RBC Nucleated RBC % (auto) Smear Tech's Comments VBG pH 7.46 H VBG pCO2 34 VBG pO2 51 VBG HCO3 24 VBG O2 Saturation 78.0 VBG Base Excess 1.1 Sodium 127 L Potassium 3.7 Chloride 83 L Carbon Dioxide 24 Anion Gap 24 H BUN 90 H D Creatinine 4.76 H* Estim Creat Clear Calc 13.6 Estimated GFR 12 POC Glucose 196 H Random Glucose 195 H D Calcium 7.5 L Phosphorus 6.2 H Magnesium 1.7 Albumin 3.2 L 04/12/22 04/12/22 10:57 11:36 WBC RBC Hgb Hct MCV MCH MCHC RDW Plt Count MPV Immature Gran % (Auto) Neut % (Auto) Lymph % (Auto) [place] % (Auto) Eos % (Auto) Baso % (Auto) Lymph # (Auto) [place] # (Auto) Eos # (Auto) Baso # (Auto) Abs Immat Gran (auto) Absolute Neuts (auto) Absolute Nucleated RBC Nucleated RBC % (auto) Smear Tech's Comments VBG pH 7.42 VBG pCO2 35 VBG pO2 47 VBG HCO3 23 VBG O2 Saturation 71.0 VBG Base Excess -0.6 Sodium Potassium Chloride Carbon Dioxide Anion Gap BUN Creatinine Estim Creat Clear Calc Estimated GFR POC Glucose 146 H Random Glucose Calcium Phosphorus Magnesium Albumin Microbiology Microbiology Results: Microbiology 04/07/22 06:38 Blood - Venous Blood Culture - Final No growth after 5 days. 04/05/22 15:37 Abdominal Fluid Gram Stain - Final 04/05/22 15:37 Abdominal Fluid Routine Culture - Final No growth after 2 days 04/05/22 15:37 Abdominal Fluid Anaerobic Culture - Final NO GROWTH AFTER 5 DAYS 04/07/22 06:38 Blood - Venous Blood Culture - Final Coag negative Staphylococcus 04/01/22 12:27 Blood - Venous Blood Culture - Final No growth after 5 days. 04/01/22 12:27 Blood - Venous Blood Culture - Final No growth after 5 days. Quality Stroke Does the patient have a stroke diagnosis?: No VTE Prior VTE?: No VTE Risk Level:: Medical - moderate - high VTE Device Contraindication: Treatment Not Indicated VTE Drug Contraindication: N/A - Med Ordered Critical Care Time Critical Care Time (minutes): 150
[2022-04-12] MEDS: EPINEPHrine 5 MG in Dextrose 5 % 250 ML 130.82 MG IVCONT ×2 (13:15→15:14)
--- NOTE | 2022-04-12 14:47 | PM.PNNEP ---
Subjective Subjective Date of Service: 05/07/22 Interval history: HAs tachy-shaista syndrome, acute hypoxic respiratory failure, acute kidney failure, acute on chronic diastolic congestive heart failure, respiratory arrest, PEA arrest Seen on HD ICU attending changing line as old line had poor flows Physical Exam Vital Signs: Vital Signs: Last Vital Signs Temp 96.6 F L 04/12/22 14:00 Pulse 67 04/12/22 14:00 Resp 22 H 04/12/22 14:00 BP 118/51 L 04/12/22 14:00 Pulse Ox 97 04/12/22 14:00 O2 Del Method 04/12/22 14:00 O2 Flow Rate 100 04/10/22 22:00 FiO2 60 04/12/22 14:00 BMI result Body Mass Index 27.8 Objective Data Labs 04/12/22 05:00 04/12/22 05:00 Labs: Laboratory Results - last 24 hr 04/11/22 04/11/22 04/12/22 17:40 23:56 05:00 WBC 16.6 H RBC 3.05 L D Hgb 9.2 L D Hct 25.5 L D MCV 83.6 MCH 30.2 MCHC 36.1 H RDW 19.7 H Plt Count 64 L MPV Not Reportable Immature Gran % (Auto) 1.6 H Neut % (Auto) 92.0 H Lymph % (Auto) 2.6 L [place] % (Auto) 3.2 Eos % (Auto) 0.2 Baso % (Auto) 0.4 Lymph # (Auto) 0.4 L [place] # (Auto) 0.5 Eos # (Auto) 0.0 Baso # (Auto) 0.1 Abs Immat Gran (auto) 0.26 H Absolute Neuts (auto) 15.3 H Absolute Nucleated RBC 0.250 H Nucleated RBC % (auto) 1.5 H Smear Tech's Comments VERIFIED VBG pH VBG pCO2 VBG pO2 VBG HCO3 VBG O2 Saturation VBG Base Excess Sodium Potassium Chloride Carbon Dioxide Anion Gap BUN Creatinine Estim Creat Clear Calc Estimated GFR POC Glucose 197 H 171 H Random Glucose Calcium Phosphorus Magnesium Albumin 04/12/22 04/12/22 04/12/22 05:00 05:02 05:44 WBC RBC Hgb Hct MCV MCH MCHC RDW Plt Count MPV Immature Gran % (Auto) Neut % (Auto) Lymph % (Auto) [place] % (Auto) Eos % (Auto) Baso % (Auto) Lymph # (Auto) [place] # (Auto) Eos # (Auto) Baso # (Auto) Abs Immat Gran (auto) Absolute Neuts (auto) Absolute Nucleated RBC Nucleated RBC % (auto) Smear Tech's Comments VBG pH 7.46 H VBG pCO2 34 VBG pO2 51 VBG HCO3 24 VBG O2 Saturation 78.0 VBG Base Excess 1.1 Sodium 127 L Potassium 3.7 Chloride 83 L Carbon Dioxide 24 Anion Gap 24 H BUN 90 H D Creatinine 4.76 H* Estim Creat Clear Calc 13.6 Estimated GFR 12 POC Glucose 196 H Random Glucose 195 H D Calcium 7.5 L Phosphorus 6.2 H Magnesium 1.7 Albumin 3.2 L 04/12/22 04/12/22 10:57 11:36 WBC RBC Hgb Hct MCV MCH MCHC RDW Plt Count MPV Immature Gran % (Auto) Neut % (Auto) Lymph % (Auto) [place] % (Auto) Eos % (Auto) Baso % (Auto) Lymph # (Auto) [place] # (Auto) Eos # (Auto) Baso # (Auto) Abs Immat Gran (auto) Absolute Neuts (auto) Absolute Nucleated RBC Nucleated RBC % (auto) Smear Tech's Comments VBG pH 7.42 VBG pCO2 35 VBG pO2 47 VBG HCO3 23 VBG O2 Saturation 71.0 VBG Base Excess -0.6 Sodium Potassium Chloride Carbon Dioxide Anion Gap BUN Creatinine Estim Creat Clear Calc Estimated GFR POC Glucose 146 H Random Glucose Calcium Phosphorus Magnesium Albumin Microbiology Microbiology Results: Microbiology 04/07/22 06:38 Blood - Venous Blood Culture - Final No growth after 5 days. 04/05/22 15:37 Abdominal Fluid Gram Stain - Final 04/05/22 15:37 Abdominal Fluid Routine Culture - Final No growth after 2 days 04/05/22 15:37 Abdominal Fluid Anaerobic Culture - Final NO GROWTH AFTER 5 DAYS 04/07/22 06:38 Blood - Venous Blood Culture - Final Coag negative Staphylococcus 04/01/22 12:27 Blood - Venous Blood Culture - Final No growth after 5 days. 04/01/22 12:27 Blood - Venous Blood Culture - Final No growth after 5 days. Procedures Date of Service Date of Service: 04/12/22 Assessment & Plan Assessment and plan (1) Pulmonary edema with congestive heart failure: Status: Acute (2) Respiratory arrest: Status: Acute (3) CHANTE (acute kidney injury): Status: Acute Assessment and Plan: 77-YEAR-OLD WITH MULTIPLE CHRONIC MEDICAL PROBLEMS, ADMITTED WITH ACUTE KIDNEY INJURY, NON-ANION GAP METABOLIC ACIDOSIS AND NEWLY DISCOVERED ASCITES WITH A HISTORY OF HEAVY NEAR-NEPHROTIC RANGE PROTEINURIA IN THE PAST. he remains oliguric with a low fractional excretion of sodium consistent with either septic or cardiogenic shock his echocardiogram did not show a reduced ejection fraction he is on pressors getting albumin remains oliguric dialysis Contineu HD today K PP Vol removal as tolerated Line change done by ICU attending- Thank You Still oliguric Minimize free H2O given low NA Poor prognosis - ? Palliative care - Continue GOC discussion D/w ICU nursing team (4) PAD (peripheral artery disease): Status: Acute (5) DMII (diabetes mellitus, type 2): Status: Acute (6) Type 2 diabetes mellitus with peripheral artery disease: Status: Acute (7) Acute kidney injury superimposed on CKD: Status: Acute Plan Time Spent With Patient Time: Total time managing care of this patient today ____ minutes. Progress Note: Quality Stroke Does the patient have a stroke diagnosis?: No
[2022-04-12] MEDS: propofoL 1,000 MG/100 ML VIAL 19.18 MG IVCONT ×2 (16:11→21:16)
[2022-04-12] MEDS: EPINEPHrine 5 MG in Dextrose 5 % 250 ML 78.49 MG IVCONT ×2 (17:04→20:29)
[2022-04-12] MEDS: Norepinephrine Bitartrate/D5W 8 MG/250 ML PLAST..BAG 61.95 MG IV ×2 (18:20→22:28)
[2022-04-12] MEDS: Insulin Lispro 100 UNIT/ML 3 ML VIAL SUBCUT (18:25)
--- NOTE | 2022-04-12 19:03 | PC.NURSE ---
EPINEPHRINE GTT STARTED AND TITRATED PER PROTOCOL, SEE EMAR. DOPAMINE GTT DECREASED AND EVENTUALLY TITRTED OFF PER MD, SEE EMAR. NEW TLC PLACED IN RIGHT SUBCLAVIAN, OLD TLC REMOVED FROM RIJ. NEW DIALYSIS PORT PLACED TO SCJ. DIALYSIS REMOVED 1000 ML. CHEST TUBE PLACED IN RT UPPER LUNG DUE TO PNUEMOTHORAX. DRAINING SANGINOUS FLUID PATIENT BATHED, REPOSITIONED Q2HR, FAMILY AND PATIENT UPDATED ON ANNETTE STATUS
--- NOTE | 2022-04-12 19:44 | P.PCNCC_ITS ---
Procedures Date of Service Date of Service: 04/12/22 Central Line Placement Right SC: Central Line Comments: PROCEDURE:? Insertion right supraclavicular subclavian central venous line. INDICATION:? Hypotension, acute respiratory failure. ANESTHESIA:? IV sedation PROCEDURE:? Vascular ultrasound was used to examine the right side (avoiding the left side in case a PPM was to be implanted).? A large compressible infraclavic subclavian vein was noted lateral to a large pulsatile subclav artery. The right infraclavicular, supraclavic, and right neck areas were widely prepped and draped in full sterile fashion.? The vessels were located by US.? The 18g thin wall was introduced under US guidance and the needle tip was seen entering the infraclavic subclav vein.? However, blood was not able to be aspirated.? The needle was withdrawn, US visualization was adjusted and the needle inserted again.? Exact same result.? The infraclavicular approach was therefore abandoned. The US probe was shifted to the supraclavicular region and again, a large, compressible vein was located.? The 18g thin wall was introduced, and after adjustment of the ultrasound probe, entered the vein with good, free-flowing aspirate of blood. ?The wire was threaded without incident.? A 7 [place] by 16 cm triple-lumen catheter was advanced into the vein up to the hub via the Seldinger technique without incident.? There was good aspirate of blood x3.? The catheter was sutured x3 w 3-0 silk and a Biopatch and dry sterile dressing were applied. Postop chest x-ray showed the line good position with no pneumothorax.? The patient tolerated the procedure well w no complications. Following that, the in-situ right IJV CVL was removed in preparation for a right IJV temporary HD catheter. Consent for Procedure: Elective - informed consent obtained
--- NOTE | 2022-04-12 19:45 | W.PM.CCHP ---
Procedures Date of Service Date of Service: 04/12/22 Central Line Placement Right IJ: Central Line Comments: PROCEDURE:? Insertion right internal jugular Mahurkar triple lumen hemodialysis catheter. Indications:? Acute renal failure, volume overload. Anesthesia:? Propofol/fentanyl sedation. The right side was visualized with vascular US.? A very large right IJ vein was easily visualized. The right neck and upper chest were prepped widely and draped.? The right internal jugular vein was identified by ultrasound.? The vein was cannulated on the first pass with the 18 gauge thin wall under direct ultrasound guidance, and the wire passed without incident.? The two sequential dilators were passed, then the 12Fr x 13 cm Mahurkar dialysis catheter was threaded over the wire via Seldinger technique without incident.? The wire was removed and there was a positive heme aspirate x3.? All 3 lumens were flushed.? The catheter was then sutured in place with 3-0 silk x 2.? A biopatch and dry sterile dressing were applied. The patient tolerated the procedure well with no complications. A post-procedure CXR showed the line in good position, but with a mod-large pneumothorax, presumably from the earlier subclavian CVL attempts. A Delvis pnuemothorax chest tube was placed (see separate procedure). Consent for Procedure: Elective - informed consent obtained
--- NOTE | 2022-04-12 19:46 | P.PCNCC_ITS ---
Procedures Date of Service Date of Service: 04/12/22 Chest Tube Chest Tube 1: Chest tube location: Mid-Clavicular Chest Progress: PROCEDURE:? Insertion Delvis pigtail pneumothorax drainage tube. INDICATION:? Right pneumothorax. ANESTHESIA:? Propofol sedation. The patient is in the ICU with acute respiratory failure, hypotension, and acute renal failure.? The right pneumothorax is 2? attempted right subclavian CVL placement. PROCEDURE:? The right chest was widely prepped.? The 2? x 18 g needle from the [place] pneumothorax tray was placed into the chest in the 3rd or 4th ICS in the [facility].? Air was easily aspirated on entering the thoracic cavity.? The wire was threaded, then the needle withdrawn.? The large irving dilator was inserted, then removed from the wire, and replaced by the pigtail mounted on its inner stylette.? The pigtail was advanced easily about 6? or so into the chest, and then hooked up to a Heimlich valve.? Air fluttering through the Heimlich valve was visualized.? The pigtail was then sutured x 1 to the anter chest wall, and a DSD applied. Postop chest x-ray showed the pigtail in good position with possibly a tiny residual apical pneumothorax.? The patient tolerated the procedure well w no complications.
--- NOTE | 2022-04-12 19:47 | W.PM.CCHP ---
Procedures Date of Service Date of Service: 04/12/22 Chest Tube Chest Tube 2: Chest tube location: Mid-Clavicular Chest Progress: PROCEDURE:? Insertion Delvis pigtail pneumothorax drainage tube. INDICATION:? Right pneumothorax. ANESTHESIA:? Propofol sedation. The patient is in the ICU with acute respiratory failure, hypotension, and acute renal failure.? The original right pneumothorax was 2? attempted right subclavian CVL placement. A Delvis pneumothorax drainage tube was placed about two hours prior, with almost complete drainage of the PTX. However, the patient subsequently became much more hypotensive and then hypoxemic, A repeat CXR showed reoccurence of the PTX. I was unable to aspirate anything out of the previously placed Delvis pneumothorax tube. PROCEDURE:? The right chest was widely prepped, including the in-situ Delvis pneumothorax tube. The tube was cut about 2 from the skin, and passage of the wire was attempted, but unable. The pneumothorax tube was therefore completely removed. The 4 18g thin wall needle was gently inserted thru the hole in the chest, and easily went in. The wire was easily threaded without resistance, and the needle removed. The large irving dilator was inserted without resistance, then removed from the wire, and replaced by the pigtail mounted on its inner stylette.? The pigtail was advanced easily to the last black jay. The dilator was removed and the tube hooked up to chest tube suction. There was a good airleak. At that point, a CXR was taken showing complete drainage of the PTX. It looked like the chest tube was in about 1.5-2 too far, so the tube was pulled out. Another CXR was taken at that point and showed re-occurence of a partial PTX. The chest tube was advanced about 1 (all done with full sterile field). The position looked good, with no PTX. The chest tube was then sutured in place, and a DSD applied. There was a good airleak. The patient tolerated the procedure well w no complications.
[2022-04-13] VITALS (25 sets, daily range): BP systolic 97–142; BP diastolic 41–58; PULSE 58–66; RESP 21–27; TEMP 34.6–36.3; O2SAT 93–100; BMI 29.3
[2022-04-13] MEDS: Insulin Lispro 100 UNIT/ML 3 ML VIAL SUBCUT ×2 (00:01→05:04)
[2022-04-13] MEDS: 0.9 % Sodium Chloride Flush 3 ML SYRINGE IVFLUSH ×3 (00:05→15:43)
[2022-04-13] MEDS: propofoL 1,000 MG/100 ML VIAL 19.18 MG IVCONT ×2 (01:42→05:18)
[2022-04-13] MEDS: Norepinephrine Bitartrate/D5W 8 MG/250 ML PLAST..BAG 61.95 MG IV ×2 (02:21→05:21)
[2022-04-13] MEDS: EPINEPHrine 5 MG in Dextrose 5 % 250 ML 78.49 MG IVCONT ×3 (02:37→05:25)
[2022-04-13] MEDS: Chlorhexidine Gluc Oral Rinse 15 ML MOUTHWASH BUCCAL ×2 (07:46→15:43)
[2022-04-13] MEDS: Lactulose 20 GM/30 ML SOLUTION PO (07:47)
[2022-04-13] MEDS: Famotidine/PF 20 MG/2 ML VIAL IVPUSH (07:47)
--- NOTE | 2022-04-13 09:32 | MHC.CLN ---
F/U DISCUSSED AT ROUNDS WITH MD RODRIGUEZ TO START TODAY RECOMMEND D/C TF WILL CHANGE DIET TO NPO WILL FOLLOW WITH TEAM AND PROVIDE SUPPORT NEEDED
[2022-04-13] MEDS: Norepinephrine Bitartrate/D5W 8 MG/250 ML PLAST..BAG 46.46 MG IV (09:34)
[2022-04-13] MEDS: fentaNYL citrate/PF 100 MCG/2 ML VIAL 50 MCG IVPUSH (10:45)
--- NOTE | 2022-04-13 11:22 | P.PNCC_ITS ---
Subjective Subjective Date of Service: 04/13/22 Interval History: Mr. Romo was transferred to ICU on Apr 05 after a cardiac arrest on the medical head. The patient is a 77 yo M with PMHx of DM with h/o diabetic foot ulcers, diabetic neuropathy, diabetic nephropathy with CKD 3, PVD s/p left TMA, asthma, HTN, HLD, CAD on Plavix, and PAFib on apixaban, He was previously admitted here Feb 21-2021 for SOB.? CXR showed diffuse bilat infiltrates and he was COVID positive.? Admitting SpO2 was 86% on 2LNC.? He was treated for COVID and for bacterial pneumonia.? His oxygenation initially worsened, but then improved, even though a repeat CXR on Mar 03 was far worse than the CXR of Feb 21.? (Did not have a chest CT.)? He was discharged from the hospital to rehab on 2 or 3L NC. Prior to that hospitalization, he?d been living at home with his , getting around with a walker, doing his own ADLs.? was concerned that he had dementia.? The patient was d/c home from [facility] about the first week in March.? He was very weak, but not on oxygen.? Needed help with ADLs. HISTORY OF PRESENT ILLNESS:? After being home for about a week, Mr. Romo was BIBA to the ED from home on Apr 01 bec of generalized weakness and a fall.? He was oriented x3 but otherwise unable to provide any hx.? He was afebrile, breathing easy w SpO2 low 90?s on room air.? CXR was similar to the prev film of Mar 03, but with newly obscured right hemidiaph.? WBC was 13 (was 8 previously).? BUN/creat 40/1.9 (were 32/1.2).? He also had marked edema and ascites on abdom CT. The patient was admitted w diagnoses of dehydration, CHANTE, and possible pneumonia.? He required suppl oxygen.? He became more hypoxemic.? BUN/creat improved.? Ascites got worse.? Chest CT on Apr 04 showed mod-severe emphysema and severe bilat diffuse ground glass infiltrates -- thought 2? CHF.? Diuresis was added to ceftriaxone and Zithromax. On the morning of Apr 05, his oxygenation worsened and he was put on CPAP, 100% FiO2.? Later that day, he had an aystolic arrest after taking off his CPAP mask.? Had ROSC after 1mg epi, 7 min CPR.? The patient was struggling during the intubation.? Was tx to ICU. Subsequently, he underwent paracentesis for 2.25 L.? Echocardiogram later that day showed normal LV size and systolic function.? Mild LVH.? RV size was mildly increased with mildly decreased function.? Both atria were dilated.? There were no significant valvular Doppler abnormalities.? The IVC was dilated with no inspiratory collapse. His renal fxn deteriorated.? He failed diuresis.? ICU course further complicated by persistent bradycardia with poor response to dopamine, required transcutaneous pacing.? The patient was started on hemodialysis on April 07.? He went in and out of AFib. On April 10, he had two episodes of PEA arrest associated with lack of capture from the transcutaneous pacer pads..? These were thought secondary to metabolic acidosis.? Dr. Marquez felt that a permanent pacemaker was unlikely to prolong his life and might not even work given how sick he was.? He spoke with the patient?s and advised against it, and advised DNR status.? The same has been discussed with the patient's by Dr. Winn and HELEN San.? Dr. Winn indicated to me that the patient was pacemaker dependent all day on Apr 11. Dialysis on Monday 04/09 had to be aborted after about an hour because of extreme hypotension.? Yesterday, dialysis was started but had to be terminated after about half an hour because of poor flow through the catheter. ?The HD was [facility] in the [facility], and dialysis flow after that was excellent.? Yesterday?s full dialysis had to be terminated bec of hypotension, however.? Subsequently he was found to have a PTX.? BP improved after drainage, but not back to baseline. After speaking with the patient?s mult times last night, she wanted to withdraw critical care support.? We decided to wait until her sons see the patient today.? The transcutaneous PM was removed last night and DNR orders written. This morning, with the propofol off for 30 min, the patient remains completely unresponsive.? On fentanyl 20ug, Epinephrine 0.2ug, and Levophed 0.3ug.? HR 62, BP 118/52.? On ACVC 16/400/45%/+5, RR is 25, Ve 8L, PIP 26cm, ETCO2 18, Sat 96%.? Afebrile, Temp 96.8.? No corneals, no dolls? eyes, no gag reflex.? Pupils meiotic bilat.? No JVD at 20-30?.? Chest is CTA with a hint of tubular quality diffusely.? Soft heart tones, I heard no M or G.? Abdomen tense with ascites.? 3+ central edema.? Feet are cold (altho not cadaveric). LABORATORY DATA:? None today.? POCs OK. My bedside echocardiogram yesterday:? Image quality:? Good.? Findings:? LV wall thickness maybe top normal.? LV cavity size normal.? Qualitatively LV fxn looked very stiff and paced, even though it wasn?t being paced.? Mild global hypoki nesis, overall EF about 40%, no RWMAs.? RV normal sized.? No TR, MR, or AI by color ana.? IVC measured 1.86 cm w no insp collapse. IMPRESSION: 1. Underlying CKD 2. Underlying CAD 3. Underlying PAfib 4. Underlying diastolic dysfxn, per echo 5. Progressive hypoxemic respiratory failure thought secondary to acute congestive heart failure 2? above.? Ventilatory requirements improved with hemodialysis. 6. Cardiac arrest.? Likely respiratory in origin.? Duration of cessation of spont circulation, if any, likely no more than 7min, but this was a hypoxemic arrest (assoc with worse neuro outcomes than a non-hypoxemic arrest). 7. Now with tachy-shaista syndrome, with two PEA arrests, requiring transcutaneous pacing.? Was pacemaker dependent all day on Apr 11.? Under ordinary c ircumstances, a PPM would have been implanted already.? Started epinephrine drip yesterday.? His need for pacing subsequently resolved. 8. Hypotension.? Not sure what the etiology is.? Suffice it to say, he has MOSF. 9. Acute renal failure.? Cause is unclear to me.? Could be ATN 2? cardiac arrest, could be prerenal (Urine Na on Apr 06 -- after the paracentesis -- was low).? Would need daily HD.? HD subsequently suspended after his ?s decision last night. 10. Abdominal distension with increased ascites.? May have some role in worsening resp status.? Paracentesis sched for today was cancelled after his ?s decision. 11. ID:?? 1/2 blood cultures positive for coagulase-negative Staphylococcus contamination.? Empirically covered with ceftriaxone.? Recultures were cancelled after his ?s decision 11. Underlying DM.? On sliding scale Lispro. 12. Thrombocytopenia.? Likely 2? critical illness. 13. Underlying PVD.? Feet are cold but no gross ischemia as yet. 14. Neuro:? The patient seemed to be waking up to some degree after the first cardiac arrest, requiring sedative drips to tolerate ventilatory support.? Today is showing partial loss of brainstem activity.? Likely has either anoxic or, less likely, critical illness encephalopathy.? An EEG would be indicated in ordinary circumstances. Overall prognosis is very poor.? I don?t see any avenue to surviving to leave the hospital (even with a tracheostomy).? Expect the family to request extubation later today.? It is likely that he would pass within minutes of discontinuing critical care management. ADDENDUM at 1325:? The patient's brother and sister and a cousin came in to see him.? I spoke with them at some length and explained the situation.? I re- examined the patient, now that he has been off propofol for about 4 hours.? He does have sluggish corneals now and very sluggish dolls' eyes.? No gag reflex.? No interaction.? They are all in agreement with comfort measure status. ADDENDUM at 1830:? The patient?s Cathryn came in, with other family members.? I spoke with them again, with the same points made as earlier.? They wish to proceed with extubation and comfort measures.? We will do so when they are ready. Critical care time (including multiple visits to the bedside to check neuro status): 110 minutes Critical Care Time (minutes): 110 Physical Exam Vital Signs: Vital Signs: Last Vital Signs Temp 96.8 F 04/13/22 09:00 Pulse 62 04/13/22 11:00 Resp 24 H 04/13/22 11:00 BP 115/50 L 04/13/22 11:00 Pulse Ox 97 04/13/22 11:00 O2 Del Method 04/13/22 11:00 O2 Flow Rate 100 04/10/22 22:00 FiO2 60 04/13/22 11:00 BMI result Body Mass Index 29.3 Objective Data Labs CBC & Chem 7: 04/12/22 05:00 04/12/22 05:00 Labs: Laboratory Results - last 24 hr 04/12/22 04/12/22 04/12/22 11:36 18:16 23:32 POC Glucose 146 H 242 H 242 H 04/13/22 04:56 POC Glucose 188 H Microbiology Microbiology Results: Microbiology 04/07/22 06:38 Blood - Venous Blood Culture - Final No growth after 5 days. 04/05/22 15:37 Abdominal Fluid Gram Stain - Final 04/05/22 15:37 Abdominal Fluid Routine Culture - Final No growth after 2 days 04/05/22 15:37 Abdominal Fluid Anaerobic Culture - Final NO GROWTH AFTER 5 DAYS 04/07/22 06:38 Blood - Venous Blood Culture - Final Coag negative Staphylococcus 04/01/22 12:27 Blood - Venous Blood Culture - Final No growth after 5 days. 04/01/22 12:27 Blood - Venous Blood Culture - Final No growth after 5 days. Quality Stroke Does the patient have a stroke diagnosis?: No VTE Prior VTE?: No VTE Risk Level:: Medical - moderate - high VTE Device Contraindication: Treatment Not Indicated VTE Drug Contraindication: N/A - Med Ordered Critical Care Time Critical Care Time (minutes): 120
[2022-04-13 12:09] LABS: Glucose, Whole Blood 147 mg/dL (60-115)
[2022-04-13] MEDS: EPINEPHrine 5 MG in Dextrose 5 % 250 ML 52.33 MG IVCONT (13:54)
[2022-04-13] MEDS: Norepinephrine Bitartrate/D5W 8 MG/250 ML PLAST..BAG 30.98 MG IV (15:42)
--- NOTE | 2022-04-13 16:12 | MHC.CM.PN ---
Pt is likely to be made [employer] later today per discussion with MD. CARCAMO to follow for any changes in d/c plan
--- NOTE | 2022-04-13 18:56 | PC.NURSE ---
Pt's Propofol turned off at 1041 per Md's order. Pt continued to be on vent AC support 16/400/5/45% and tolerating with O2 Sat in the mid 90s. ChestTube at -30cm and draining minimal sanguineous drainage. OG tube on LWS and draining minimal bilious secretions. Pt bathed and skin care provided as needed. Pt's family visiting throughout the shift, and son came at bedside towards the end of shift, MD and this author at bedside discussing further plan of care. Family decided to make pt MEDICAL SCRIBE at change of shift. Awaiting RT for extubation. Report given to oncoming RN who will continue with the plan of care.
--- NOTE | 2022-04-13 20:47 | P.DS_ITS ---
DS: Providers Provider Date of Service: 04/13/22 Date of admission: 04/01/22 16:48 Date of discharge: 04/13/22 Primary care physician: Jayla Murrieta MD Admitting clinician: Luis Ferreira Attending physician on admission: Gomez Silva Consults: 04/01/22 17:12 Consult to General Surgery Routine Consulting Provider: [facility] Reason for consultation: abd pain, distended/voluntary gaurdin Has provider been notified: No 04/01/22 18:46 Consult to Gastroenterology Routine Consulting Provider: [facility] G[facility] Services Reason for consultation: ascitis ,abd pain,?liver dis Has provider been notified: No 04/02/22 08:04 Consult to Nephrology Routine Consulting Provider: Uche Reyez Reason for consultation: clayton,insetting possible liver dis Has provider been notified: No 04/04/22 08:07 Consult to Pulmonology Routine Consulting Provider: [facility] Pul[facility] Reason for consultation: dyspnea /unclear etiology Has provider been notified: No 04/05/22 07:16 Consult to Cardiology Routine Consulting Provider: [facility] Cardiovascular Services Reason for consultation: Chf excerebation? right side heart failure Has provider been notified: No 04/05/22 07:42 Consult to Critical Care Routine Consulting Provider: Rocky Winn Reason for consultation: level of care Has provider been notified: No Attending physician on discharge: Luis Ferreira Discharging clinician: Franko Felix DS: Diagnosis Discharge Diagnosis (1) Pulmonary edema with congestive heart failure: Status: Acute (2) Respiratory arrest: Status: Acute (3) CLAYTON (acute kidney injury): Status: Acute (4) PAD (peripheral artery disease): Status: Acute (5) DMII (diabetes mellitus, type 2): Status: Acute (6) Type 2 diabetes mellitus with peripheral artery disease: Status: Acute (7) Acute kidney injury superimposed on CKD: Status: Acute DS: Summary Hospital Course Hospital Course: ADMISSION/DISCHARGE DIAGNOSIS: 1. MULTI ORGAN FAILURE 2.CLAYTON on Underlying CKD 3. Underlying CAD 4. Underlying PAfib 5. Underlying diastolic dysfxn, per echo 6. Progressive hypoxemic respiratory failure thought secondary to acute congestive heart failure 2? above.? 7. Cardiac arrest.? Likely respiratory in origin. 8. Tachy-shaista syndrome, with two PEA arrests, requiring transcutaneous pacing.? 9. Hypotension.? Not sure what the etiology is.? Suffice it to say, he has MOSF. 10. Abdominal distension and ascites 11. ID:?? 1/2 blood cultures positive for coagulase-negative Staphylococcus contamination. 12. Underlying DM.? 13. Thrombocytopenia.? Likely 2? critical illness. 14. Underlying PVD without gross ischemia Reason of : Multiorgan Failure At this time, the patient has no heartbeat, no palpable pulses, pupils are fixed at 5 mm bilaterally, overall that anterior chamber and cornea of the eyes appear glossy, no spontaneous breathing.? There is no corneal reflexes bilaterally, capillary refill of the fingers and toes is significantly delayed and there is cyanosis with cool extremities.? Patient was pronounced at? 19:34 . I expressed my condolences to the family. Certificate Completed. [facility] Called by RN. HPI: HOSPITAL COURSE Mr. Romo was transferred to ICU on Apr 05 after a cardiac arrest on the medical head. The patient is a 77 yo M with PMHx of DM with h/o diabetic foot ulcers, diabetic neuropathy, diabetic nephropathy with CKD 3, PVD s/p left TMA, asthma, HTN, HLD, CAD on Plavix, and PAFib on apixaban, He was previously admitted here Feb 21-2021 for SOB.? CXR showed diffuse bilat infiltrates and he was COVID positive.? Admitting SpO2 was 86% on 2LNC.? He was treated for COVID and for bacterial pneumonia.? His oxygenation initially worsened, but then improved, even though a repeat CXR on Mar 03 was far worse than the CXR of Feb 21.? (Did not have a chest CT.)? He was discharged from the hospital to rehab on 2 or 3L NC. Prior to that hospitalization, he?d been living at home with his , getting around with a walker, doing his own ADLs.? was concerned that he had dementia.? The patient was d/c home from [facility] about the first week in March.? He was very weak, but not on oxygen.? Needed help with ADLs. After being home for about a week, Mr. Romo was BIBA to the ED from home on Apr 01 bec of generalized weakness and a fall.? He was oriented x3 but otherwise unable to provide any hx.? He was afebrile, breathing easy w SpO2 low 90?s on room air.? CXR was similar to the prev film of Mar 03, but with newly obscured right hemidiaph.? WBC was 13 (was 8 previously).? BUN/creat 40/1.9 (were 32/1.2).? He also had marked edema and ascites on abdom CT. The patient was admitted w diagnoses of dehydration, CLAYTON, and possible pneumonia.? He required suppl oxygen.? He became more hypoxemic.? BUN/creat improved.? Ascites got worse.? Chest CT on Apr 04 showed mod-severe emphysema and severe bilat diffuse ground glass infiltrates -- thought 2? CHF.? Diuresis was added to ceftriaxone and Zithromax. On the morning of Apr 05, his oxygenation worsened and he was put on CPAP, 100% FiO2.? Later that day, he had an aystolic arrest after taking off his CPAP mask.? Had ROSC after 1mg epi, 7 min CPR.? The patient was struggling during the intubation.? Was tx to ICU. Subsequently, he underwent paracentesis for 2.25 L.? Echocardiogram later that day showed normal LV size and systolic function.? Mild LVH.? RV size was mildly increased with mildly decreased function.? Both atria were dilated.? There were no significant valvular Doppler abnormalities.? The IVC was dilated with no inspiratory collapse. His renal fxn deteriorated.? He failed diuresis.? ICU course further complicated by persistent bradycardia with poor response to dopamine, required transcutaneous pacing.? The patient was started on hemodialysis on April 07.? He went in and out of AFib. On April 10, he had two episodes of PEA arrest associated with lack of capture from the transcutaneous pacer pads..? These were thought secondary to metabolic acidosis.? Dr. Marquez felt that a permanent pacemaker was unlikely to prolong his life and might not even work given how sick he was.? He spoke with the patient?s and advised against it, and advised DNR status.? The same has been discussed with the patient's by Dr. Winn and HELEN San.? Dr. Winn indicated to me that the patient was pacemaker dependent all day on Apr 11. Dialysis on Monday 04/09 had to be aborted after about an hour because of extreme hypotension.? On 04/11 dialysis was started but had to be terminated after about half an hour because of poor flow through the catheter. ?The HD was replaced in the [facility], and dialysis flow after that was excellent.? Yesterday?s full dialysis had to be terminated bec of hypotension, however.? Subsequently he was found to have a PTX.? BP improved after drainage, but not back to baseline. Dr Ferreira spoke with the patient?s rajwinder times 04/12/2022, she wanted to withdraw critical care support.? We decided to wait until her sons see the patient today.? The transcutaneous PM was removed last night and DNR orders written. This morning, with the propofol off for 30 min, the patient remained completely unresponsive.? On fentanyl 20ug, Epinephrine 0.2ug, and Levophed 0.3ug.? HR 62, BP 118/52.? On ACVC 16/400/45%/+5, RR is 25, Ve 8L, PIP 26cm, ETCO2 18, Sat 96%.? Afebrile, Temp 96.8.? No corneals, no dolls? eyes, no gag reflex.? Pupils meiotic bilat.? No JVD at 20-30?.? Chest is CTA with a hint of tubular quality diffusely.? Soft heart tones, I heard no M or G.? Abdomen tense with ascites.? 3+ central edema.? Feet are cold (altho not cadaveric). LABORATORY DATA:? None today.? POCs OK. On ECHO 04/12/2022:? Image quality:? Good.? Findings:? LV wall thickness maybe top normal.? LV cavity size normal.? Qualitatively LV fxn looked very stiff and paced, even though it wasn?t being paced.? Mild global hypokinesis, overall EF about 40%, no RWMAs.? RV normal sized.? No TR, MR, or AI by color ana.? IVC measured 1.86 cm w no insp collapse. Overall prognosis was poor and we did not see any avenue to surviving to leave the hospital (even with a tracheostomy).? At 13:25 pm today 04/13/2022? The patient's brother and sister and a cousin came in to see him.? Dr Ferreira spoke with them at some length and explained the situation.? He was re-examined, now that he had been off propofol for about 4 hours.? He had sluggish corneals now and very sluggish dolls' eyes.? No gag reflex.? No interaction.? They are all in agreement with comfort measure status. At 18:30? The patient?s Cathryn came in, with other family members.?Dr Ferreira spoke with them again, with the same points made as earlier.? They wish to proceed with extubation and comfort measures.? Critical care time used for critical evaluation of this patient, diagnosis, treatment and coordination of care, review her records and documentation TOTAL CRITICAL CARE TIME 60 MIN . discussion and coordination with consultants, completely separate from any procedures performed. . Patient's care was discussed in detail with Dr. Ferreira. He is aware of all the above as well as the plan of care for this patient.. Time Spent with Patient Time attestation: Total time managing care of this patient today ____ minutes. Discharge coordination time: Greater than 30 minutes Quality: Safe Use of Opioids Does Pt have an Active Cancer Diagnosis on the Problem List?: No Quality: Stroke Does the patient have a stroke diagnosis?: No Physical Exam Vital Signs: Vital Signs: Last Vital Signs Temp 97.3 F 04/13/22 19:00 Pulse 59 04/13/22 19:00 Resp 21 H 04/13/22 19:00 BP 111/48 L 04/13/22 19:00 Pulse Ox 94 04/13/22 19:00 O2 Del Method 04/13/22 19:00 O2 Flow Rate 100 04/10/22 22:00 FiO2 35 04/13/22 19:00 BMI result Body Mass Index 29.3 DS: Data Data Completed and Pending Completed studies during hospitalization [Text1]: Pending at discharge 04/01/22 18:46 Cytology [PTH] Routine Procedures Detachment at Right 1st Toe, Complete, Open Approach (07/24/20) Detachment at Right Foot, Partial 1st Ray, Open Approach (07/21/21) Detachment at Right Foot, Partial 2nd Ray, Open Approach (07/21/21) Detachment at Right Foot, Partial 3rd Ray, Open Approach (07/21/21) Detachment at Right Foot, Partial 4th Ray, Open Approach (07/21/21) Detachment at Right Foot, Partial 5th Ray, Open Approach (07/21/21) Dilation of Right Anterior Tibial Artery, Percutaneous Approach (07/24/20) Drainage of Right Foot, Open Approach (07/24/20) Excision of Right Foot Skin, External Approach (11/29/20) Excision of Right Foot Subcutaneous Tissue and Fascia, Open Approach (07/24/20) Insertion of Infusion Device into Superior Vena Cava, Percutaneous Approach (06/30/21) Insertion of Intraluminal Device into Right Internal Iliac Artery, Percutaneous Approach (11/29/20) Introduction of Baricitinib into Mouth and Pharynx, External Approach, [employer] 6 (02/21/22) Introduction of Remdesivir Anti-infective into Peripheral Vein, Percutaneous Approach, [employer] 5 (02/21/22) Labs on day of discharge: Laboratory Results - last 24 hr 04/11/22 04/12/22 04/13/22 05:25 23:32 04:56 Smear Path Review POC Glucose 242 H 188 H 04/13/22 12:06 Smear Path Review POC Glucose 147 H Discharge Plan Discharge Date/Time: 04/13/22 19:34 Patient Disposition: Discharge Diagnosis: MULTISYSTEM ORGAN FAILURE Referrals: Po,Jayla Goodman MD [Primary Care Provider] - 1 Week Discharge Medications: No Action mirtazapine 7.5 mg tablet 7.5 mg PO BEDTIME Qty: 90 2RF clopidogrel [Plavix] 75 mg tablet 75 mg PO DAILY Qty: 90 2RF amlodipine 10 mg tablet 10 mg PO DAILY 90 Days Qty: 90 3RF metformin 500 mg tablet 500 mg PO BIDWM Qty: 180 2RF atorvastatin 10 mg tablet 10 mg PO BEDTIME Qty: 90 0RF clotrimazole 1 % cream 1 appl topical BID 28 Days Qty: 45 1RF Rx Instructions: apply to left foot toenails metoprolol succinate 50 mg tablet extended release 24 hr 50 mg PO DAILY Qty: 30 2RF Protocol: Hold for SBP/HR < HOLD for SBP < : 90 HOLD for HR < : 60 levothyroxine [Synthroid] 25 mcg tablet 25 mcg PO DAILY@0600 cholecalciferol (vitamin D3) 25 mcg (1,000 unit) capsule 25 mcg PO DAILY Eliquis 5 mg tablet 5 mg PO BID Qty: 60 0RF amiodarone 200 mg tablet 200 mg PO DAILY Qty: 30 0RF timolol maleate 0.5 % drops 1 drp ophthalmic-Left DAILY Discharge Orders: Discharge Order (Routine); Ordered 04/13/22 Ordered By: Franko Felix
--- NOTE | 2022-04-13 22:54 | PC.NURSE ---
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 Patient terminally extubated at 1915 per family's request and remained on fentanyl gtt for pain management. Patient at 1933 w/family and Cathryn at bedside. Both Dr. Ferreira and Allyson FRASER notified. Once family left, post mortem care done and [place] [facility] [place]
== END 2022-04-13 23:16 | disposition expired | DRG 291 ==
LOC: HO.ED 14:41 → HO.EDOVER 17:03 → HO.IMC 19:13 → HO.ICU 04-05 12:46
PROVIDERS: Internal Medicine; Internal Medicine Cardiovascular Disease; Internal Medicine Nephrology; Radiology Diagnostic Radiology; Registered Nurse Community Health; Admitting Provider Student in an Organized Health Care Education/Training Program; Emergency Provider Student in an Organized Health Care Education/Training Program; PCP Internal Medicine; Visit Provider Internal Medicine Pulmonary Disease
PROC: 0W9G3ZZ Drainage of Peritoneal Cavity, Percutaneous Approach (ICD-10-PCS; principal; 2022-04-05 14:30)
DX: I13.0 Hypertensive heart and chronic kidney disease with heart failure and stage 1 through stage 4 chronic kidney disease, or unspecified chronic kidney disease (principal); G92.8 Other toxic encephalopathy; J95.811 Postprocedural pneumothorax; J18.9 Pneumonia, unspecified organism; I50.33 Acute on chronic diastolic (congestive) heart failure; E87.21 Acute metabolic acidosis; E87.1 Hypo-osmolality and hyponatremia; R18.8 Other ascites; N17.9 Acute kidney failure, unspecified; I48.0 Paroxysmal atrial fibrillation; E11.51 Type 2 diabetes mellitus with diabetic peripheral angiopathy without gangrene; E03.9 Hypothyroidism, unspecified; Z86.16 Personal history of COVID-19; E78.5 Hyperlipidemia, unspecified; N18.30 Chronic kidney disease, stage 3 unspecified; E11.22 Type 2 diabetes mellitus with diabetic chronic kidney disease; J84.10 Pulmonary fibrosis, unspecified; I27.81 Cor pulmonale (chronic); F10.21 Alcohol dependence, in remission; R09.2 Respiratory arrest; K59.00 Constipation, unspecified; I49.5 Sick sinus syndrome; D63.1 Anemia in chronic kidney disease; Z66 Do not resuscitate; E11.40 Type 2 diabetes mellitus with diabetic neuropathy, unspecified; I95.3 Hypotension of hemodialysis; E86.0 Dehydration; D69.59 Other secondary thrombocytopenia; Z20.822 Contact with and (suspected) exposure to COVID-19; Z87.891 Personal history of nicotine dependence; Z79.01 Long term (current) use of anticoagulants; Z79.02 Long term (current) use of antithrombotics/antiplatelets; Z79.84 Long term (current) use of oral hypoglycemic drugs; Z79.899 Other long term (current) drug therapy
CPT/HCPCS: 0241U; 36415; 49083; 70450; 71045; 71046; 71250; 72125; 74176; 80048; 80053; 80076; 81001; 82040; 82042; 82043; 82140; 82150; 82784; 82803; 82945; 82947; 83521; 83605; 83615; 83735; 83880; 83935; 83986; 84100; 84145; 84156; 84157; 84300; 84443; 84484; 85007; 85014; 85018; 85025; 85027; 85610; 85652; 85730; 86021; 86038; 86039; 86235; 86334; 86431; 86704; 86706; 86709; 86803; 86850; 86900; 86901; 86923; 87040; 87070; 87073; 87147; 87205; 87340; 87633; 88112; 88305; 89051; 90999; 93005; 93306; 94002; 94003; 94640; 94660; 94799; 99285; C1758; J0171; J0295; J0456; J0461; J0696; J1205; J1250; J1265; J1940; J2250; J2270; J2405; J2543; J3010; J3475; P9016; P9047; Q9957